=== PATIENT | female | born 1960 | race African-American/Black ===

== ENCOUNTER 2020-03-16 15:02 | Outpatient (REF) | payer OTHER, SELFPAY | END 2020-03-16 15:03 | disposition home or self-care (01) | LOC: HO.LNP 15:02 | PROVIDERS: Visit Provider Internal Medicine | DX: Z20.828 Contact with and (suspected) exposure to other viral communicable diseases (principal) | CPT/HCPCS: U0003 ==

== ENCOUNTER 2024-01-23 14:18 | Outpatient (AMB) | payer OTHER, SELFPAY ==
--- OUTSIDE RECORDS SUMMARY | 2024-01-23 14:19 | XMS_ITS | Continuity of Care Document ---
Author Organization [facility] Address [address] [place] [address]- Care Team Providers Care Body Designer Name Role Phone Rose Mary FISCHER, Sergo Cole Primary Care Physician [phone] Encounter [facility] Date(s): 11/27/22 - 12/27/22 [facility] [address], [place] [address] Allergies, Adverse Reactions, Alerts Substance Reaction Severity Status morphine ITCH DIARRHEA Active trazodone DEPRESSION Active Latex powder eats up skin Active cortisone Active Motrin eat lining of stomach Active Naprosyn gi upset Active CeleBREX gi upset Active Neurontin mental status changes Active Ultram nausea, vomit Active Vioxx heart problems Active Immunizations Given and Recorded Vaccine Date Status Refusal Reason influenza virus vaccine, inactivated 02/20/21 Give n influenza virus vaccine, inactivated 01/12/20 Gilberto rded influenza virus vaccine, inactivated 02/16/19 Give n influenza virus vaccine, inactivated 01/16/18 Give n influenza virus vaccine, inactivated 1 01/22/17 Gi lizzeth influenza virus vaccine, inactivated 03/02/15 Give n influenza virus vaccine, inactivated 2 12/24/12 Gi lizzeth influenza virus vaccine, inactivated 3 12/07/11 Gi lizzeth tetanus-diphtheria toxoids (Td) 10/14/18 Given Influenza Inactive (IM) (oldterm) 4 01/05/11 Given Influenza Inactive (IM) (oldterm) 5 12/15/09 Given Pneumococcal Vaccine (oldterm) 6 01/21/08 Given Tet/Diphth/Acel, Pertussis (oldterm) 7 01/21/08 Gi lizzeth Influenza Vaccine (oldterm) 8 01/21/08 Given 1Result Comment: [01/22/2017] [facility] [id number] 2Admin Note: vis given dated 10/24/12 3Admin Note: vis given dated 10/01/11 4Admin Note: vis 5Admin Note: vis 6Admin Note: vis given: 10/27/2006 7Admin Note: vis given : 10/10/2005 8Admin Note: vis given 2007- Medications Abdominal Binder Abdominal Binder, See Instructions, # 1 each, Refills 0, Tot. Refills 0, Maintenance, M62. 08 Diastasis Recti Wear throughout the day. Okay to take off at night and when showering., 11/16/22 14:22:00EDT, Supply Start Date: 11/16/22 Status: Ordered acetaminophen 500 mg oral tablet 2 tablet, By Mouth, 4 times a day, PRN NEEDED FOR PAIN, # 100 tablet, 1 Refills, Acute, 219:52:00 EDT, [id number], 157.48, cm, 10/11/20 9:39:00 EDT, Height Start Date: 10/26/20 Status: Ordered Alcohol Pads See Instructions, # 200 each, Refills 11, Tot. Refills 11, Maintenance, To cleans before injections5 x a day., 03/03/21 9:18:00 EST, E11.65, Compound, 157.48, cm, 03/01/21 15:54:00 EST, Height Start Date: 03/03/21 Stop Date: 02/26/22 Status: Ordered Sngsb-Ssucvr-Wrbi 300 mg oral capsule 1 capsule, By Mouth, 2 times a day, NOT COVERED., # 60 capsule, 11 Refills, [id number], 157.48, cm, 01/27/21 9:30:00 EDT, Height Start Date: 01/30/21 Status: Ordered ammonium lactate 12% topical cream 1 application, Topically, 2 times a day, # 385 Gm, 1 Refills, Maintenance, 12/22/22 14:16:00 EDT, Cream, [facility]/pharmacy #[id number], Partial fill upon patient request if the prescription is for a schedule IIopioid drug., 1 application Topically 2 times a day... Start Date: 12/22/22 Stop Date: 02/20/23 Status: Ordered atorvastatin 80 mg oral tablet 1 tablet = 80 mg, By Mouth, Daily, replaces Simvastatin, # 90 tablet, 1 Refills, Maintenance, 11/19/23 14:22:00 EDT, Tablet, [facility]/pharmacy #[id number], replaces simvastatin, 157.5, cm, 11/26/22 14:11:00 EDT, Height Start Date: 11/19/23 Stop Date: 05/17/24 Status: Ordered atorvastatin 80 mg oral tablet 1 tablet = 80 mg, By Mouth, Daily, for 90 days, replaces Simvastatin, # 90 tablet, 4 Refills, Hard Stop 11/19/23 14:22:00 EDT, 08/26/22 14:22:00 EDT, Tablet, [facility]/pharmacy #[id number], replaces simvastatin,157.5, cm, 11/29/21 15:59:00 EDT, Height Start Date: 08/26/22 Stop Date: 11/19/23 Status: Ordered BD Single Use Swab 70% topical pad See Instructions, TO CLEANS BEFORE INJECTIONS 5 X A DAY., # 150 Unknown, 11 Refills, Maintenance, 08/16/22 10:15:00 EDT, [facility], 30, TO CLEANS BEFORE INJECTIONS 5 X A DAY., 157.5, cm, 08/01/22 9:27:00 EDT, Height Start Date: 08/16/22 Status: Ordered capsaicin 0.075% topical cream See Instructions, APPLY TO AFFECTED AREA TWICE A DAY, # 57 Gm, 4 Refills, Maintenance, 08/24/22 14:16:00 EDT, [facility]/pharmacy #[id number], 30, APPLY TO AFFECTED AREA TWICE A DAY, 157.5, cm, 08/01/22 9:27:00 EDT, Height Start Date: 08/24/22 Status: Ordered CPAP Supplies CPAP Supplies, See Instructions, # 1 each, Refills 0, Tot. Refills 0, Maintenance, Directions: Use daily when sleeping Dx: STORMY G47.33 Duration: Lifetime, 03/20/22 11:01:00 EST, Supply Start Date: 03/20/22 Status: Ordered Daily David oral tablet 1 tablet, By Mouth, Daily, INSTR:TAKE IT 2 HOURS SEPARATE FROM ORLISTAT ([place]), # 30 tablet, 11 Refills, Maintenance, 07/09/22 10:30:00 EDT, [facility]/pharmacy #[id number], 30, 1 tablet By Mouth Daily,Instr:INSTR:TAKE IT 2 HOURS SEPARATE FROM ORLISTAT ([place]), 157... Start Date: 07/09/22 Status: Ordered diclofenac 1% topical gel See Instructions, APPLY TOPICALLY 4 TIMES A DAY NOT TO EXCEED 16 GRAMS/DAY/SINGLE JOINT OF LOWER EXTREMITIES, # 100 Gm, 1 Refills, Maintenance, 12/14/22 6:14:00 EDT, [facility]/pharmacy #[id number], 30, APPLY TOPICALLY 4 TIMES A DAY NOT TO EXCEED 16 GRAMS/DAY/SING... Start Date: 12/14/22 Status: Ordered docusate sodium 100 mg oral capsule See Instructions, TAKE 1 CAPSULE BY MOUTH TWICE A DAY NEEDED FOR CONSTIPATION, # 60 capsule, 5 Refills, Maintenance, 07/03/22 18:20:00 EDT, [facility]/pharmacy #[id number], Duplicate Rx. Original sent 07/03/22 with routing error. Re- sending to pharmacy, 157.5, cm... Start Date: 07/03/22 Status: Ordered docusate sodium 100 mg oral capsule 100 mg, 1, capsule, By Mouth, 2 times a day, PRN, # 60 capsule, Refills 5, Tot. Refills 5, Maintenance, as needed for constipation, 06/12/22 9:52:00 EDT, Route to Pharmacy Electronically, [facility]/pharmacy #[id number], Partial fill upon patient request if the pr... Start Date: 06/12/22 Status: Ordered esomeprazole 40 mg oral enteric coated capsule 1 capsule = 40 mg, By Mouth, Daily, # 90 capsule, 0 Refills, Maintenance, 12/24/22 15:20:00 EDT, [facility]/pharmacy #[id number], Partial fill upon patient request if the prescription is for a schedule II opioid drug., 157.5, cm, 11/26/22 14:11:00 EDT, Height Start Date: 12/24/22 Status: Ordered fentaNYL 25 mcg/hr transdermal film, extended release APPLY 1 PATCH EVERY 72 HOURS. DO NOT FILL UNTIL 05/01/21. OK TO PARTIAL FILL UPON REQUEST. Start Date: 06/02/21 Status: Ordered Flovent Diskus 50 mcg/inh inhalation powder 1 puffs, Inhalation, 2 times a day, # 60 each, 0 Refills, Maintenance, 09/20/22 9:36:00 EDT, [id number], 30, INHALE 1 PUFF BY MOUTH TWICE A DAY, 157.5, cm, 09/05/22 16:22:00 EDT, Height Start Date: 09/20/22 Status: Ordered fluticasone 50 mcg/inh nasal spray See Instructions, SPRAY 1 SPRAY INTO EACH NOSTRIL EVERY DAY, # 16 mL, 5 Refills, Maintenance, 07/05/22 16:20:00 EDT, [id number], 30, SPRAY 1 SPRAY INTO EACH NOSTRIL EVERY DAY, 157.5, cm, 06/21/22 8:43:00 EDT, Height Start Date: 07/05/22 Status: Ordered Freestyle Insulinx Test Strips Freestyle Insulinx Test Strips, See Instructions, # 200 each, Refills 6, Tot. Refills 6, Maintenance, Use to check Blood Glucose levels up to 4 times daily. E11.9, 04/27/22 18:24:00 EST, Supply, 157.5, cm, 04/11/22 10:50:00 EST, Height Start Date: 04/27/22 Status: Ordered Freestyle Lancets See Instructions, # 200 each, Refills 5, Tot. Refills 5, Maintenance, use 4 X daily as directed forType 2 Diabetes Mellitus, 03/22/22 15:40:00 EST, Supply, 157.5, cm, 03/22/22 13:25:00 EST, Height Start Date: 03/22/22 Stop Date: 09/18/22 Status: Ordered Freestyle Lite Lancets See Instructions, # 150 each, Refills 5, Tot. Refills 5, Maintenance, use as directed for Type 2 Diabetes Mellitus to check BGs 4x dialy. E11.9, 06/19/22 17:01:00 EDT, Supply, 157.5, cm, 06/19/22 15:46:00 EDT, Height Start Date: 06/19/22 Stop Date: 12/16/22 Status: Ordered Freestyle Lite Monitor See Instructions, # 1 each, Refills 0, Tot. Refills 0, Maintenance, use as directed for Type 2 Diabetes Mellitus to check BGs 4x dialy. E11.9, 06/19/22 17:01:00 EDT, Supply, 157.5, cm, 06/19/22 15:46:00 EDT, Height Start Date: 06/19/22 Status: Ordered Freestyle Lite Test Strips See Instructions, # 150 each, Refills 8, Tot. Refills 8, Maintenance, use as directed for Type 2 Diabetes Mellitus to check BGs 4x dialy. E11.9, 06/19/22 17:01:00 EDT, Supply, 157.5, cm, 06/19/22 15:46:00 EDT, Height Start Date: 06/19/22 Stop Date: 03/16/23 Status: Ordered hospital bed mattress replacement hospital bed mattress replacement, See Instructions, # 1 each, Refills 0, Tot. Refills 0, Maintenance, please dispense 1 hospital bed mattress replacement - DX G89.4, length of use lifetime, 05/10/2316:39:00 EST, Supply Start Date: 05/10/22 Status: Ordered hospital bed with mattress hospital bed with mattress, See Instructions, # 1 each, Refills 0, Tot. Refills 0, Maintenance, Please dispense one hospital bed with mattress, ICD 10 G89.4, length of use lifetime, 05/09/22 12:35:00EST, Supply Start Date: 05/09/22 Status: Ordered Humalog Kwik Pen 100 units/mL subcutaneous injection See Instructions, Take 4-14 units 3 times daily before meals based on sliding scale via Subcutaneous Infusion. Max daily dose 42 units. E11.9, # 30 mL, 6 Refills, Maintenance, 11/26/22 14:55:00 EDT, [facility], Partial fill upon patie... Start Date: 11/26/22 Status: Ordered Lactaid 3000 units oral tablet 3 tablet = 9,000 units, By Mouth, 3 times a day with meals, # 120 tablet, 5 Refills, Maintenance, 08/17/22 9:03:00 EDT, Tablet, [facility]/pharmacy #[id number], Partial fill upon patient request if the prescription is for a schedule II opioid drug., 157.5, cm, ... Start Date: 08/17/22 Stop Date: 02/13/23 Status: Ordered Lantus Solostar Pen 100 units/mL subcutaneous solution See Instructions, Take 45 units in the AM and 45 units daily at bedtime. E11.9., # 30 mL, 9 Refills, Maintenance, 11/26/22 14:55:00 EDT, [facility], Partial fill upon patient requestif the prescription is for a schedule II opioid lucas... Start Date: 11/26/22 Status: Ordered lidocaine 5% topical ointment See Instructions, APPLY TO AFFECTED AREA 3 TIMES A DAY, # 35.44 Gm, 11 Refills, Maintenance, 02/28/22 8:51:00 EST, [facility]/pharmacy #[id number], 30, APPLY TO AFFECTED AREA 3 TIMES A DAY, 157.5, cm, 02/21/22 14:36:00 EST, Height Start Date: 02/28/22 Status: Ordered lidocaine 5% topical ointment See Instructions, APPLY TO AFFECTED AREA 3 TIMES A DAY, # 35.44 Gm, 11 Refills, Maintenance, 07/03/22 18:22:00 EDT, [facility]/pharmacy #[id number], 30, Duplicate Rx. Original sent 07/03/22 with routing error. Re-sending to pharmacy, APPLY TO AFFECTED AREA 3 TIMES A... Start Date: 07/03/22 Status: Ordered losartan 50 mg oral tablet 1 tablet, By Mouth, Daily, # 90 tablet, 1 Refills, Maintenance, 07/11/22 15:04:00 EDT, [facility]/pharmacy#[id number], 157.5, cm, 06/21/22 8:43:00 EDT, Height Start Date: 07/11/22 Status: Ordered Lyrica 25 mg oral capsule See Instructions, 1 capsule By Mouth 1 time daily at bedtime. E11.9, # 30 each, 5 Refills, Maintenance, 05/01/22 18:04:00 EST, Capsule, [facility]/pharmacy #[id number], Partial fill upon patient request if the prescription is for a schedule II opioid drug., 157.5,... Start Date: 05/01/22 Status: Ordered mirtazapine 15 mg oral tablet 1 tablet = 15 mg, By Mouth, Daily at bedtime, # 30 tablet, 4 Refills, Maintenance, 12/06/22 13:07:00 EDT, Tablet, [facility]/pharmacy #[id number], Partial fill upon patient request if the prescription is for a schedule II opioid drug., 157.5, cm, 11/26/22 14:11:00... Start Date: 12/06/22 Stop Date: 05/05/23 Status: Ordered [place]-3 Fish Oil 1000 mg oral capsule 1 capsule = 1,000 mg, By Mouth, Daily, # 90 capsule, 1 Refills, Maintenance, 08/01/22 10:17:00 EDT,[facility]/pharmacy #[id number], Partial fill upon patient request if the prescription is for a schedule II opioid drug., 157.5, cm, 08/01/22 9:27:00 EDT, Height Start Date: 08/01/22 Status: Ordered omeprazole 20 mg oral delayed release tablet 1 tablet = 20 mg, By Mouth, 2 times a day, do not crush or chew, # 60 tablet, 2 Refills, Maintenance, 06/14/22 16:40:00 EDT, EC Tablet, [facility]/pharmacy #[id number], Partial fill upon patient request if the prescription is for a schedule II opioid drug., 157.5,... Start Date: 06/14/22 Status: Ordered oxyCODONE 10 mg oral tablet TAKE 1/2 TAB EVERY 12 HOURS NEEDED FOR SEVERE NECK/LOW BACK PAIN. DO NOT FILL UNTIL 05/01/21 Start Date: 06/02/21 Status: Ordered Pen [place], 31 G x 8 mm BD Ultra Fine III See Instructions, # 450 each, Refills 3, Tot. Refills 3, Maintenance, e11.9, use for insulin injections up to 5 times daily, 90 day supply, 03/07/22 9:23:00 EST, Supply, 157.5, cm, 03/02/22 10:34:00 EST, Height Start Date: 03/07/22 Status: Ordered QUEtiapine 25 mg oral tablet 25 mg, 1, tablet, By Mouth, 2 times a day, # 60 tablet, Refills 4, Tot. Refills 4, Maintenance, 12/06/22 13:08:00 EDT, Route to Pharmacy Electronically, [facility]/pharmacy #[id number], Partial fill upon patient request if the prescription is for a schedule II opi... Start Date: 12/06/22 Stop Date: 05/05/23 Status: Ordered cloud infrastructure architect grabber tool cloud infrastructure architect grabber tool, See Instructions, # 1 each, Refills 0, Tot. Refills 0, Maintenance, please dispense one cloud infrastructure architect grabber tool, ICD 10 M54.6, length of use 1 month, 04/12/22 10:13:00 EST, Supply Start Date: 04/12/22 Status: Ordered replacement hospital bed with mattress replacement hospital bed with mattress, See Instructions, # 1 each, Refills 0, Tot. Refills 0, Maintenance, please dispense 1 replacement hospital bed wth mattress, DX G89.4, length of use lifetime, 06/20/22 14:20:00 EDT, Supply Start Date: 06/20/22 Status: Ordered Topamax 25 mg oral tablet 3 tablet = 75 mg, By Mouth, Daily at bedtime, # 90 tablet, 6 Refills, Maintenance, 06/26/22 10:14:00 EDT, Tablet, [facility], 157.5, cm, 06/21/22 8:43:00 EDT, Height Start Date: 06/26/22 Stop Date: 01/22/23 Status: Ordered Trulicity Pen 4.5 mg/0.5 mL subcutaneous solution See Instructions, INJECT 4.5 MG SUBCUTANEOUSLY ONCE A WEEK, # 2 mL, 5 Refills, Maintenance, 11/21/22 8:33:00 EDT, [facility], 157.5, cm, 11/16/22 13:50:00 EDT, Height Start Date: 11/21/22 Status: Ordered valACYclovir 500 mg oral tablet 1, tablet, By Mouth, 2 times a day, PRN, # 6 tablet, Refills 1, Tot. Refills 1, Maintenance, NEEDED FOR OUTBREAKS, 12/14/22 6:14:00 EDT, Route to Pharmacy Electronically, [facility]/pharmacy #[id number], 157.5, cm, 11/26/22 14:11:00 EDT, Height Start Date: 12/14/22 Stop Date: 12/20/22 Status: Ordered Valium 5 mg oral tablet 5 mg, 1, tablet, By Mouth, 2 times a day, for 30 days, next refill decrease to this dose after current script ends in Dec 2022, # 60 tablet, Refills 2, Tot. Refills 2, Acute 03/06/23 13:09:00 EST, 12/06/22 13:09:00 EDT, Route to Pharmacy Electronic[facility]... Start Date: 12/06/22 Stop Date: 03/06/23 Status: Ordered Vascepa 1 g oral capsule 2 capsule = 2 Gm, By Mouth, 2 times a day, # 360 capsule, 5 Refills, Maintenance, 05/03/20 15:59:00EST, Capsule, [id number], 157.48, cm, 03/04/20 14:14:00 EST, Height Start Date: 05/03/20 Status: Ordered Ventolin HFA 108 mcg/inh inhalation aerosol with adapter 1 puffs, Inhalation, 4 times a day, PRN NEEDED FOR WHEEZING, # 18 each, 0 Refills, Maintenance, 09/17/22 15:25:00 EDT, [id number], 157.5, cm, 09/05/22 16:22:00 EDT, Height Start Date: 09/17/22 Status: Ordered Problem List Condition Confirmation Course Effective Dates Status H ealth Status Informant Abdominal pain, right upper quadrant Confirmed Active Abdominal pain, RUQ Confirmed Active Backache Confirmed Active Breast pain in female Confirmed 09/12/11 Active Carpal Tunnel Syndrome Confirmed 01/05/11 Active Cholecystectomy Confirmed Active Chronic pain after traumatic injury Confirmed Active Constipation Confirmed Active Diabetes mellitus type 2 Confirmed Active Diastasis recti Confirmed Active Echocardiogram abnormal 1 Confirmed Active Epigastric pain 2 Confirmed Active Fall Confirmed Active Hyperlipidemia Confirmed Active Hypertension Confirmed Active Stool incontinence Confirmed Active 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 Loose stools Confirmed Active Back pain NOS 3 Confirmed Active Migraine Confirmed 01/05/11 Active 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 Multinodular goiter Confirmed Active Numbness of left foot Confirmed Active Obesity Confirmed Active Obesity monitoring Confirmed Active STORMY (obstructive sleep apnea) 4 Confirmed Active Osteoarthritis, L knee mild tricompartmental Confirmed Active PAIN IN JOINT INVOLVING MULTIPLE SITES Confirmed Active 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 *Briana Garces, Communications Agent, ICP [phone] Confirmed Active PTSD (post-traumatic stress disorder) Confirmed Active Reflux Confirmed Active Severe obesity (BMI 35.0-39.9) with comorbidity Confirmed Active Hepatic steatosis Confirmed Active Tubular adenoma of colon Confirmed Active 00645 -EF 60-65%. No wall motion abnormalities, Does have diastolic dysfunction. 2EGD in 06/10 - single non-bleeding erosion was noted in the antrum; histology showed chronic gastritis and some rare h.pylori, ?treated 3MRI in 2007 showed: 1. Lower lumbar facet arthropathy predominantly at L4-L5 and L5-S1. 2. Small central L5-S1 disc herniation barely contacting but not displacing or trapping the S1 nerve roots. 4mild STORMY per sleep study in 09/10. To return for cpap titration. 5+ HSV and HSV2 Social History Social History Type Response Smoking Status Never smoker entered on: 11/10/13 Sex Female Patient Care team information Care Team Personnel Name: Rose Mary FISCHER, Sergo Cole Position: [facility] Physician - Primary Care Member Role: PCP Address: Address: [address] [place] [address] [place] [address]- Name: Lizbeth Collins [place] Position: [facility] RN Member Role: Primary Care Nurse Care Team Related Persons Name: LB HENLEY Address: home [address] [address] Name: LB HENLEY Address: [address] [place] [address] Name: MILENA CUBA Address: home [address] [place] [address]
--- OUTSIDE RECORDS SUMMARY | 2024-01-23 14:20 | XMS_ITS | Continuity of Care Document ---
Author Organization [facility] Address [address] [place] [address] [address] [place] [address]- Care Team Providers Care Civil Estimator Name Role Phone Rose Mary FISCHER, Serog Cole Primary Care Physician Encounter [facility] Date(s): 11/23/22 - 12/23/[address] [place] [address]- Attending Physician: AdmBroderick enriquez Admitting Physician: Admtr, Broderick Referring Physician: Admtr, Ar8 Allergies, Adverse Reactions, Alerts Substance Reaction Severity Status morphine ITCH DIARRHEA Active trazodone DEPRESSION Active cortisone Active Motrin eat lining of stomach Active Naprosyn gi upset Active CeleBREX gi upset Active Neurontin mental status changes Active Ultram nausea, vomit Active Vioxx heart problems Active Latex powder eats up skin Active Immunizations Given and Recorded Vaccine Date [...] (oldterm) 8 01/21/08 Given 1Result Comment: [01/22/2017] [facility] [id number] 2Admin Note: vis given dated 10/24/12 3Admin [...] 100 tablet, 1 Refills, Acute, 219:52:00 EDT, [facility], 157.48, cm, 10/11/20 9:39:00 EDT, Height Start Date: 10/26/20 Status: Ordered Alcohol Pads See Instructions, # 200 each, Refills 11, Tot. Refills 11, Maintenance, To cleans before injections5 x a day., 03/03/21 9:18:00 EST, E11.65, Compound, 157.48, cm, 03/01/21 15:54:00 EST, Height Start Date: 03/03/21 Stop Date: 02/26/22 Status: Ordered Ozaov-Aleznf-Iqdp 300 mg oral capsule 1 capsule, By Mouth, 2 times a day, NOT COVERED., # 60 capsule, 11 Refills, [facility], 157.48, cm, 01/27/21 9:30:00 EDT, Height Start Date: 01/30/21 Status: Ordered ammonium lactate 12% topical cream 1 application, Topically, 2 times a day, # 385 Gm, 1 Refills, Maintenance, 12/22/22 14:16:00 EDT, Cream, [facility]/pharmacy #[id number], Partial fill upon patient request if the prescription is for a schedule IIopioid drug., 1 application Topically 2 times a day... Start Date: 12/22/22 Stop Date: 02/20/23 Status: Ordered atorvastatin 80 mg oral tablet 1 tablet = 80 mg, By Mouth, Daily, replaces Simvastatin, # 90 tablet, 1 Refills, Maintenance, 11/19/23 14:22:00 EDT, Tablet, [facility]/pharmacy #[id number], replaces simvastatin, 157.5, cm, 11/26/22 14:11:00 EDT, Height Start Date: 11/19/23 Stop Date: 05/17/24 Status: Ordered atorvastatin 80 mg oral tablet 1 tablet = 80 mg, By Mouth, Daily, for 90 days, replaces Simvastatin, # 90 tablet, 4 Refills, Hard Stop 11/19/23 14:22:00 EDT, 08/26/22 14:22:00 EDT, Tablet, [facility]/pharmacy #[id number], replaces simvastatin,157.5, cm, 11/29/21 15:59:00 EDT, Height Start Date: 08/26/22 Stop Date: 11/19/23 Status: Ordered BD Single Use Swab 70% topical pad See Instructions, TO CLEANS BEFORE INJECTIONS 5 X A DAY., # 150 Unknown, 11 Refills, Maintenance, 08/16/22 10:15:00 EDT, [facility], 30, TO CLEANS BEFORE INJECTIONS 5 X A DAY., 157.5, cm, 08/01/22 9:27:00 EDT, Height Start Date: 08/16/22 Status: Ordered capsaicin 0.075% topical cream See Instructions, APPLY TO AFFECTED AREA TWICE A DAY, # 57 Gm, 4 Refills, Maintenance, 08/24/22 14:16:00 EDT, [facility]/pharmacy #[id number], 30, APPLY TO AFFECTED AREA TWICE [...] tablet, 11 Refills, Maintenance, 07/09/22 10:30:00 EDT, [facility]/pharmacy #[id number], 30, 1 tablet By Mouth Daily,Instr:INSTR:TAKE IT 2 HOURS SEPARATE FROM ORLISTAT ([place]), 157... Start Date: 07/09/22 Status: Ordered diclofenac 1% topical gel See Instructions, APPLY TOPICALLY 4 TIMES A DAY NOT TO EXCEED 16 GRAMS/DAY/SINGLE JOINT OF LOWER EXTREMITIES, # 100 Gm, 1 Refills, Maintenance, 12/14/22 6:14:00 EDT, [facility]/pharmacy #[id number], 30, APPLY TOPICALLY 4 TIMES A DAY NOT TO EXCEED 16 GRAMS/DAY/SING... Start Date: 12/14/22 Status: Ordered docusate sodium 100 mg oral capsule See Instructions, TAKE 1 CAPSULE BY MOUTH TWICE A DAY NEEDED FOR CONSTIPATION, # 60 capsule, 5 Refills, Maintenance, 07/03/22 18:20:00 EDT, [facility]/pharmacy #[id number], Duplicate Rx. Original sent 07/03/22 with routing error. Re- sending to pharmacy, 157.5, cm... Start Date: 07/03/22 Status: Ordered docusate sodium 100 mg oral capsule 100 mg, 1, capsule, By Mouth, 2 times a day, PRN, # 60 capsule, Refills 5, Tot. Refills 5, Maintenance, as needed for constipation, 06/12/22 9:52:00 EDT, Route to Pharmacy Electronically, [facility]/pharmacy #[id number], Partial fill upon patient request if the pr... Start Date: 06/12/22 Status: Ordered fentaNYL 25 mcg/hr transdermal film, extended release APPLY 1 PATCH EVERY 72 HOURS. DO NOT FILL UNTIL 05/01/21. OK TO PARTIAL FILL UPON REQUEST. Start Date: 06/02/21 Status: Ordered Flovent Diskus 50 mcg/inh inhalation powder 1 puffs, Inhalation, 2 times a day, # 60 each, 0 Refills, Maintenance, 09/20/22 9:36:00 EDT, [id number], 30, INHALE 1 PUFF BY MOUTH TWICE A DAY, 157.5, cm, 09/05/22 16:22:00 EDT, Height Start Date: 09/20/22 Status: Ordered fluticasone 50 mcg/inh nasal spray See Instructions, SPRAY 1 SPRAY INTO EACH NOSTRIL EVERY DAY, # 16 mL, 5 Refills, Maintenance, 07/05/22 16:20:00 EDT, [id number], 30, SPRAY 1 SPRAY INTO EACH NOSTRIL [...] mL, 6 Refills, Maintenance, 11/26/22 14:55:00 EDT, [facility], Partial fill upon patie... Start Date: 11/26/22 Status: Ordered Lactaid 3000 units oral tablet 3 tablet = 9,000 units, By Mouth, 3 times a day with meals, # 120 tablet, 5 Refills, Maintenance, 08/17/22 9:03:00 EDT, Tablet, [facility]/pharmacy #[id number], Partial fill upon patient request if the prescription is for a schedule II opioid drug., 157.5, cm, .. Start Date: 08/17/22 Stop Date: 02/13/23 Status: Ordered Lantus Solostar Pen 100 units/mL subcutaneous solution See Instructions, Take 45 units in the AM and 45 units daily at bedtime. E11.9., # 30 mL, 9 Refills, Maintenance, 11/26/22 14:55:00 EDT, [facility], Partial fill upon patient requestif the prescription is for a schedule II opioid lucas... Start Date: 11/26/22 Status: Ordered lidocaine 5% topical ointment See Instructions, APPLY TO AFFECTED AREA 3 TIMES A DAY, # 35.44 Gm, 11 Refills, Maintenance, 02/28/22 8:51:00 EST, [id number], 30, APPLY TO AFFECTED AREA 3 TIMES A DAY, 157.5, cm, 02/21/22 14:36:00 EST, Height Start Date: 02/28/22 Status: Ordered lidocaine 5% topical ointment See Instructions, APPLY TO AFFECTED AREA 3 TIMES A DAY, # 35.44 Gm, 11 Refills, Maintenance, 07/03/22 18:22:00 EDT, [facility]/pharmacy #[id number], 30, Duplicate Rx. Original sent 07/03/22 [...] 5 Refills, Maintenance, 05/01/22 18:04:00 EST, Capsule, [facility]/pharmacy #[id number], Partial fill upon patient request if the prescription is for a schedule II opioid drug., 157.5,... Start Date: 05/01/22 Status: Ordered mirtazapine 15 mg oral tablet 1 tablet = 15 mg, By Mouth, Daily at bedtime, # 30 tablet, 4 Refills, Maintenance, 12/06/22 13:07:00 EDT, Tablet, [facility]/pharmacy #[id number], Partial fill upon patient request if the prescription is for a schedule II opioid drug., 157.5, cm, 11/26/22 14:11:00... Start Date: 12/06/22 Stop Date: 05/05/23 Status: Ordered Nexium 40 mg oral enteric coated capsule 1 capsule = 40 mg, By Mouth, Daily, BRNAD NAME ONLY, # 90 capsule, 0 Refills, Maintenance, 10/18/2313:25:00 EDT, [facility]/pharmacy #[id number], Partial fill upon patient request if the prescription is for a schedule II opioid drug., 157.5, cm, 10/08/22 18:20:00... Start Date: 10/18/22 Stop Date: 01/16/23 Status: Ordered [place]-3 Fish Oil 1000 mg oral capsule 1 capsule = 1,000 mg, By Mouth, Daily, # 90 capsule, 1 Refills, Maintenance, 08/01/22 10:17:00 EDT,[facility]/pharmacy #[id number], Partial fill upon patient request if the prescription is for a schedule II opioid drug., 157.5, cm, 08/01/22 9:27:00 EDT, Height Start Date: 08/01/22 Status: Ordered omeprazole 20 mg oral delayed release tablet 1 tablet = 20 mg, By Mouth, 2 times a day, do not crush or chew, # 60 tablet, 2 Refills, Maintenance, 06/14/22 16:40:00 EDT, EC Tablet, [facility]/pharmacy #[id number], Partial fill upon patient request if the prescription is for a schedule II opioid drug., 157.5,... Start Date: 06/14/22 Status: Ordered oxyCODONE 10 mg oral tablet TAKE 1/2 TAB EVERY 12 HOURS NEEDED FOR SEVERE NECK/LOW BACK PAIN. DO NOT FILL UNTIL 05/01/21 Start Date: 06/02/21 Status: Ordered Pen [place], 31 G x 8 mm BD Ultra [...] 12/06/22 13:08:00 EDT, Route to Pharmacy Electronically, [facility]/pharmacy #[id number], Partial fill upon patient request if the prescription is for a schedule II opi... Start Date: 12/06/22 Stop Date: 05/05/23 Status: Ordered physician compensation analyst grabber tool physician compensation analyst grabber tool, See Instructions, # 1 each, Refills 0, Tot. Refills 0, Maintenance, please dispense one physician compensation analyst grabber tool, ICD 10 M54.6, length of [...] 6 Refills, Maintenance, 06/26/22 10:14:00 EDT, Tablet, [facility], 157.5, cm, 06/21/22 8:43:00 EDT, Height Start Date: 06/26/22 Stop Date: 01/22/23 Status: Ordered Trulicity Pen 4.5 mg/0.5 mL subcutaneous solution See Instructions, INJECT 4.5 MG SUBCUTANEOUSLY ONCE A WEEK, # 2 mL, 5 Refills, Maintenance, 11/21/22 8:33:00 EDT, [facility], 157.5, cm, 11/16/22 13:50:00 EDT, Height Start Date: 11/21/22 Status: Ordered valACYclovir 500 mg oral tablet 1, tablet, By Mouth, 2 times a day, PRN, # 6 tablet, Refills 1, Tot. 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 No wall motion abnormalities, Does [...] Name: Rose Mary FISCHER, Sergo Cole Position: [facility] Physician - Primary Care Member Role: PCP Address: Address: [address] [place] [address] [place] [address]- Name: Lizbeth Collins [place] Position: [facility] RN Member Role: Primary Care Nurse Care Team Related Persons Name: LB HENLEY Address: home [address] [place] [address] Name: LB HENLEY Address: home [address] [address] Name: MILENA CUBA Address: home [address] [place] [address]
--- OUTSIDE RECORDS SUMMARY | 2024-01-23 14:20 | XMS_ITS | Continuity of Care Document ---
Author Organization [facility] Address [address] [place] [address]- Care Team Providers Care Regional Trainer Name Role Phone Rose Mary FISCHER, Sergo Cole Primary Care Physician Encounter [facility] Date(s): 01/09/21 - 02/08/21 [facility] [address] [place], [place] [address] Allergies, Adverse Reactions, Alerts Substance Reaction Severity Status morphine ITCH DIARRHEA Active trazodone DEPRESSION Active cortisone Active Motrin eat lining of stomach Active Naprosyn gi upset Active Neurontin mental status changes Active Ultram nausea, vomit Active Vioxx heart problems Active Latex powder eats up skin Active CeleBREX gi upset Active Immunizations Given and Recorded Vaccine Date Status Refusal Reason influenza virus vaccine, inactivated 01/12/20 Gilberto rded [...] (oldterm) 8 01/21/08 Given 1Result Comment: [01/22/2017] [facility] [id number] 2Admin Note: vis given dated 10/24/12 3Admin Note: vis given dated 10/01/11 4Admin Note: vis 5Admin Note: vis 6Admin Note: vis given: 10/27/2006 7Admin Note: vis given : 10/10/2005 8Admin Note: vis given 2007- Medications acetaminophen 500 mg oral tablet 2 tablet, By Mouth, 4 times a day, PRN NEEDED FOR PAIN, # 100 tablet, 1 Refills, Acute, 219:52:00 EDT, [facility], 157.48, cm, 10/11/20 9:39:00 EDT, Height Start Date: 10/26/20 Status: Ordered Acyclovir Maintenance, 11/13/18 15:06:54 EDT Start Date: 11/13/18 Status: Ordered Admelog SoloStar 100 units/mL injectable solution 10 - 25 units, Subcutaneous Infusion, 3 times a day with meals, Inject via sliding scale, Max Dailydose 75u, 90 day supply, E11.9, # 90 mL, 5 Refills, Maintenance, 09/02/19 13:54:00 EDT, [facility], E11.9, 157.48, cm, 04/27/19 15:43:... Start Date: 09/02/19 Status: Ordered Alcohol Pads See Instructions, # 200 each, Refills 9, Tot. Refills 9, Maintenance, To cleans before injections 5x a day., 02/29/20 13:04:00 EST, E11.65, Compound, 157.48, cm, 01/25/20 15:23:00 EDT, Height Start Date: 02/29/20 Stop Date: 12/25/20 Status: Ordered [place]-Ywcuae-Tzks 300 mg oral capsule 1 capsule, By Mouth, 2 times a day, NOT COVERED., # 60 capsule, 11 Refills, [facility], 157.48, cm, 01/27/21 9:30:00 EDT, Height Start Date: 01/30/21 Status: Ordered ammonium lactate 12% topical cream 1 application, Topically, 2 times a day, # 385 Gm, 5 Refills, Maintenance, 12/19/20 14:08:00 EDT, Cream, [id number], Partial fill upon patient request if the prescription is for a schedule IIopioid drug., 1 application Topically 2 times a day... Start Date: 12/19/20 Stop Date: 06/17/21 Status: Ordered Artificial Tears preserved solution 2 drops, Eyes, Both, 2 times a day, PRN for dry eyes, # 15 mL, 3 Refills, Maintenance, 02/16/19 15:03:08 EST, Solution, 2 drops Eyes, Both 2 times a day,PRN:for dry eyes Start Date: 02/16/19 Status: Ordered aspirin 81 mg oral delayed release tablet 1 tablet, By Mouth, Daily, # 30 tablet, 11 Refills, Maintenance, 06/21/20 17:44:00 EDT, [facility], 157.48, cm, 05/31/20 9:41:00 EST, Height Start Date: 06/21/20 Status: Ordered atorvastatin 80 mg oral tablet 1 tablet = 80 mg, By Mouth, Daily, replaces Simvastatin, # 90 tablet, 4 Refills, Maintenance, 02/23/20 11:05:00 EST, Tablet, [facility]/pharmacy #[id number], replaces simvastatin, 157.48, cm, 01/25/20 15:23:00 EDT, Height Start Date: 02/23/20 Stop Date: 05/18/21 Status: Ordered BD ultra fine III pen needles [id number] BD ultra fine III pen needles [id number], See Instructions, # 360 each, Refills 3, Tot. Refills 3, Maintenance, Use pen needles to inject insulin 4x a day, E11.9, 90 Day supply, 08/21/19 8:40:00 EDT, Supply, 157.48, cm, 04/27/19 15:43:00 EST, Height Start Date: 08/21/19 Status: Ordered Cane See Instructions, # 1 each, Maintenance, cane use for ambulation as needed for left foot pain/numbness Left foot pain (M79.672) Numbness of left foot (R20.8), 11/24/19 9:58:00 EDT, Supply Start Date: 11/24/19 Status: Ordered capsaicin 0.075% topical cream See Instructions, APPLY TO AFFECTED AREA TWICE A DAY, # 57 Gm, 4 Refills, [facility], 30, APPLY TO AFFECTED AREA TWICE A DAY, 157.48, cm, 11/11/20 9:37:00 EDT, Height Start Date: 01/02/21 Status: Ordered Daily David oral tablet 1 tablet, By Mouth, Daily, INSTR:TAKE IT 2 HOURS SEPARATE FROM ORLISTAT ([place]), # 30 tablet, 11 Refills, Maintenance, 08/19/20 16:26:00 EDT, [facility], 30, TAKE 1 TABLET BY MOUTH DAILY. INSTR:TAKE IT 2 HOURS SEPARATE FROM ORLISTAT ([place]), 157.48... Start Date: 08/19/20 Status: Ordered diazepam 5 mg oral tablet Refills 0, Maintenance, 05/30/17 11:18:02 Start Date: 05/30/17 Status: Ordered diclofenac 1% topical gel 1 application, Topically, 4 times a day, not to exceed 16 grams/day/single joint of lower extremities, # 100 Gm, 6 Refills, Maintenance, 09/02/20 12:50:00 EDT, Gel, [facility]/pharmacy #[id number], 157.48, cm, 05/31/20 9:41:00 EST, Height Start Date: 09/02/20 Stop Date: 03/31/21 Status: Ordered disposable bed liners, chuckpads disposable bed liners, chuckpads, See Instructions, # 180 each, Refills 11, Tot. Refills 11, Maintenance, DX urinary incontinence use as directed for home care Dx: Incontinence R32 Size LARGE, no powder ANABEL: 1 year, 04/07/20 14:56:00 EST, Compound Start Date: 04/07/20 Status: Ordered docusate sodium 100 mg oral tablet 1 tablet = 100 mg, By Mouth, 2 times a day, PRN for constipation, # 100 tablet, 5 Refills, Maintenance, 01/07/20 14:00:00 EDT, Tablet, [facility]/pharmacy #[id number], 157.48, cm, 12/29/19 15:55:00 EDT, Height Start Date: 01/07/20 Stop Date: 07/05/20 Status: Ordered fentanyl 12 mcg/hr transdermal film, extended release 1 patch, Topically, Every 72 hours, 0 Refills, Maintenance, 02/16/19 14:50:52 EST, Patch, Partial fill upon patient request Start Date: 02/16/19 Status: Ordered fluticasone 50 mcg/inh nasal spray See Instructions, USE 1 SPRAY IN EACH NOSTRIL EVERY DAY, # 16 mL, 5 Refills, [facility], 30, USE 1 SPRAY IN EACH NOSTRIL EVERY DAY, 157.48, cm, 11/11/20 9:37:00 EDT, Height Start Date: 12/26/20 Status: Ordered Freestyle InsuLinx Test Strips See Instructions, # 360 each, Refills 2, Tot. Refills 2, Maintenance, Use to check blood glucose levels up to 4 X A DAY TESTING, E11.9, 90 Day supply, 09/20/20 15:10:00 EDT, E11.9, 90 DAY SUPPLY, Compound, 157.48, cm, 05/31/20 9:41:00 EST, Height Start Date: 09/20/20 Status: Ordered Freestyle Lite Lancets See Instructions, # 360 each, Refills 3, Tot. Refills 3, Maintenance, use up to check blood [id number] per day. 90 DAY SUPPLY, E11.9, 02/29/20 13:04:00 EST, E11.9, Compound, 157.48, cm, 01/25/20 15:23:00 EDT, Height Start Date: 02/29/20 Stop Date: 02/23/21 Status: Ordered Gloves See Instructions, # 2 each, Refills 11, Tot. Refills 11, Maintenance, use as directed for home careDx: Incontinence R32 Size LARGE, no powder ANABEL: 1 year, incontinence, 04/07/20 14:56:00 EST Start Date: 04/07/20 Status: Ordered heating pad heating pad, See Instructions, # 1 each, Refills 0, Tot. Refills 0, Maintenance, m77.50 tendonititsuse in 10-15 min intervals with ice do not leave on for risk of foot injury tendonitis, 12/08/19 9:56:00 EDT, Supply Start Date: 12/08/19 Status: Ordered Humalog Kwik Pen 100 units/mL subcutaneous injection See Instructions, Inject 10-25units according to scale up to 3 times a day, MAx Daily Dose: 75 units, E11.9. 90 Day supply, # 75 mL, 3 Refills, Maintenance, 01/13/21 8:58:00 EDT, [facility], Partial fill upon patient request if the pr... Start Date: 01/13/21 Status: Ordered lactase 3000 u oral tablet See Instructions, PRN Other, 1 tablet as needed when eating dairy products, # 30 tablet, 1 Refills,Maintenance, 03/11/19 11:54:50 EST, Tablet, 157.48, cm, 03/09/19 15:46:55 EST, Height Start Date: 03/11/19 Status: Ordered Lantus Solostar Pen 100 units/mL subcutaneous solution See Instructions, Decreased to 60U once a day as of 12/29/19, # 30 mL, 9 Refills, Maintenance, 09/20/20 15:10:00 EDT, [facility], NEEDS 30 ML FOR 30 DAY SUPPLY E11.9, 157.48, cm, 05/31/20 9:41:00 EST, Height Start Date: 09/20/20 Status: Ordered Large Adult size pull ups Large Adult size pull ups, See Instructions, # 180 each, Refills 11, Tot. Refills 11, Maintenance, Dx: urinary incontinence R32 Weight: 95.68kg Height: 157.48cm ANABEL: 1 year, 04/07/20 14:57:00 EST, Compound Start Date: 04/07/20 Status: Ordered lidocaine 4% topical film 1 patch, Topically, Daily, # 6 each, 0 Refills, Maintenance, 12/19/20 14:08:00 EDT, Film, [facility]/pharmacy #[id number], Partial fill upon patient request if the prescription is for a schedule II opioid drug., 1 patch Topically Daily, 157.48, cm, 11/11/20 9:37:0... Start Date: 12/19/20 Status: Ordered losartan 50 mg oral tablet 1 tablet, By Mouth, Daily, # 30 tablet, 5 Refills, Maintenance, 12/02/20 5:43:00 EDT, [facility]/pharmacy #[id number], 157.48, cm, 11/11/20 9:37:00 EDT, Height Start Date: 12/02/20 Status: Ordered mirtazapine 15 mg oral tablet TAKE 1 TABLET BY MOUTH EVERY DAY IN THE EVENING Start Date: 10/14/18 Status: Ordered oxyCODONE 5 mg oral tablet 5 mg, 1, tablet, By Mouth, Every 12 hours, PRN, Refills 0, Tot. Refills 0, Maintenance, as needed for pain, 02/16/19 14:51:00 EST, Partial fill upon patient request Start Date: 02/16/19 Status: Ordered Pen [place], 31 G x 8 mm BD Ultra Fine III See Instructions, # 450 each, Refills 2, Tot. Refills 2, Maintenance, 5 X A DAY INJECTIONS, 90 DY SUPPLY, 09/20/20 15:10:00 EDT, EE11.9, Compound, 157.48, cm, 05/31/20 9:41:00 EST, Height Start Date: 09/20/20 Status: Ordered QUEtiapine 25 mg oral tablet TAKE 1 TABLET BY MOUTH TWICE A DAY Start Date: 10/14/18 Status: Ordered tiZANidine 4 mg oral capsule 1 capsule, By Mouth, 3 times a day, # 90 capsule, 1 Refills, Maintenance, 01/27/21 10:19:00 EDT, [facility]/pharmacy #[id number], 157.48, cm, 01/27/21 9:30:00 EDT, Height Start Date: 01/27/21 Stop Date: 03/28/21 Status: Ordered Topamax 25 mg oral tablet 2 tablet = 50 mg, By Mouth, Daily at bedtime, # 60 tablet, 6 Refills, Maintenance, 04/21/20 13:35:00 EST, Tablet, [facility]/pharmacy #[id number], 157.48, cm, 03/04/20 14:14:00 EST, Height Start Date: 04/21/20 Stop Date: 11/17/20 Status: Ordered Trulicity Pen 1.5 mg/0.5 mL subcutaneous solution 0.5 mL = 1.5 mg, Subcutaneous Injection, Every Saturday, for 90 days, # 7.5 mL, 3 Refills, Hard Stop 12/08/21 15:26:00 EDT, 12/13/20 15:26:00 EDT, Solution, [facility], E11.65, 157.48, cm, 04/27/19 15:43:00 EST, Height Start Date: 12/13/20 Stop Date: 12/08/21 Status: Ordered Trulicity Pen 1.5 mg/0.5 mL subcutaneous solution 0.5 mL = 1.5 mg, Subcutaneous Injection, Every Saturday, E11.9, # 7.5 mL, 3 Refills, Maintenance, 12/08/21 15:26:00 EDT, Solution, [facility], E11.65, 157.48, cm, 03/04/20 14:14:00 EST, Height Start Date: 12/08/21 Stop Date: 12/03/22 Status: Ordered Vascepa 1 g oral capsule 2 capsule = 2 Gm, By Mouth, 2 times a day, # 360 capsule, 5 Refills, Maintenance, 05/03/20 15:59:00EST, Capsule, [facility]/pharmacy #[id number], 157.48, cm, 03/04/20 14:14:00 EST, Height Start Date: 05/03/20 Status: Ordered Problem List Condition Effective Dates Status Health Status Inform ant Abdominal pain, right upper quadrant(Confirmed) Active Abdominal pain, RUQ(Confirmed) Active Backache(Confirmed) Active Breast pain in female(Confirmed) 09/12/11 Active Carpal Tunnel Syndrome(Confirmed) 01/05/11 Active Cholecystectomy(Confirmed) Active Constipation(Confirmed) Active Diabetes mellitus type 2(Confirmed) Active Echocardiogram abnormal(Confirmed) 1 Active Epigastric pain(Confirmed) 2 Active Hyperlipidemia(Confirmed) Active Hypertension(Confirmed) Active Stool incontinence(Confirmed) Active Loose stools(Confirmed) Active Back pain NOS(Confirmed) 3 Active Migraine(Confirmed) 01/05/11 Active Multinodular goiter(Confirmed) Active Numbness of left foot(Confirmed) Active Obesity(Confirmed) Active Obesity monitoring(Confirmed) Active STORMY (obstructive sleep apnea)(Confirmed) 4 Active Osteoarthritis, L knee mild tricompartmental(Confirmed) Active PAIN IN JOINT INVOLVING MULT IPLE SITES(Confirmed) Active History of DILIP positive fo r HSV(Confirmed) 5 02/20/10 Active *Briana Garces, Care Coor dinator, ICP [phone](Confirmed) Active Reflux(Confirmed) Active Hepatic steatosis(Confirmed) Active -EF 60-65%. No wall motion abnormalities, [...]
--- OUTSIDE RECORDS SUMMARY | 2024-01-23 14:20 | XMS_ITS | Continuity of Care Document ---
Author Organization [facility] Address [address] [place] [address]- Care Team Providers Care Yarn Twister Name Role Phone Rose Mary FISCHER, Sergo Cole Primary Care Physician [place] [facility] [place]21 [facility] [address] [place], [place] [address] Allergies, Adverse Reactions, Alerts Substance Reaction Severity [...] (oldterm) 8 01/21/08 Given 1Result Comment: [01/22/2017] [facility] [place] [id number] 2Admin Note: vis given dated 10/24/12 3Admin Note: vis given dated 10/01/11 4Admin Note: vis 5Admin Note: vis 6Admin Note: vis given: 10/27/2006 7Admin Note: vis given : 10/10/2005 8Admin Note: vis given 2007- Medications acetaminophen 500 mg oral tablet 2 tablet, By Mouth, 4 times a day, PRN NEEDED FOR PAIN, # 100 tablet, 1 Refills, Acute, 219:52:00 EDT, [facility] 00825, 157.48, cm, 10/11/20 9:39:00 EDT, Height Start Date: 10/26/20 Status: Ordered Alcohol Pads See Instructions, # 200 each, Refills 11, Tot. Refills 11, Maintenance, To cleans before injections5 x a day., 03/03/21 9:18:00 EST, E11.65, Compound, 157.48, cm, 03/01/21 15:54:00 EST, Height Start Date: 03/03/21 Stop Date: 02/26/22 Status: Ordered Mjjxq-Ziqkyq-Wkul 300 mg oral capsule 1 capsule, By Mouth, 2 times a day, NOT COVERED., # 60 capsule, 11 Refills, [facility] 11116, 157.48, cm, 01/27/21 9:30:00 EDT, Height Start Date: 01/30/21 Status: Ordered ammonium lactate 12% topical cream 1 application, Topically, 2 times a day, # 385 Gm, 5 Refills, Maintenance, 12/19/20 14:08:00 EDT, Cream, [facility]/pharmacy #[id number], Partial fill upon patient request if the prescription is for a schedule IIopioid drug., 1 application Topically 2 times a day... Start Date: 12/19/20 Stop Date: 06/17/21 Status: Ordered aspirin 81 mg oral delayed release tablet 1 tablet, By Mouth, Daily, # 30 tablet, 11 Refills, Maintenance, 06/21/20 17:44:00 EDT, [facility] ST[facility] 50336, 157.48, cm, 05/31/20 9:41:00 EST, Height Start Date: 06/21/20 Status: Ordered atorvastatin 80 mg oral tablet 1 tablet = 80 mg, By Mouth, Daily, replaces Simvastatin, # 90 tablet, 4 Refills, Maintenance, 06/02/21 14:22:00 EST, Tablet, [facility]/pharmacy #[id number], replaces simvastatin, 157.48, cm, 06/02/21 14:20:00 EST, Height Start Date: 06/02/21 Stop Date: 08/26/22 Status: Ordered capsaicin 0.075% topical cream See Instructions, APPLY TO AFFECTED AREA TWICE A DAY, # 57 Gm, 4 Refills, [facility], 30, APPLY TO AFFECTED AREA TWICE A DAY, 157.48, cm, 11/11/20 9:37:00 EDT, Height Start Date: 01/02/21 Status: Ordered Daily David oral tablet 1 tablet, By Mouth, Daily, INSTR:TAKE IT 2 HOURS SEPARATE FROM ORLISTAT (MILTON), # 30 tablet, 11 Refills, Maintenance, 08/19/20 16:26:00 EDT, [facility]96, 30, TAKE 1 TABLET BY MOUTH DAILY. INSTR:TAKE IT 2 HOURS SEPARATE FROM ORLISTAT ([place]IL[place]), 157.48... Start Date: 08/19/20 Status: Ordered diazepam 5 mg oral tablet TAKE 1/2 TABLET BY MOUTH EVERY MORNING AND TAKE 1 TAB BY MOUTH AT BEDTIME Start Date: 06/02/21 Status: Ordered diclofenac 1% topical gel 1 application, Topically, 4 times a day, not to exceed 16 grams/day/single joint of lower extremities, # 100 Gm, 6 Refills, Maintenance, 09/02/20 12:50:00 EDT, Gel, [facility]/pharmacy #[id number], 157.48, cm, 05/31/20 9:41:00 EST, Height Start Date: 09/02/20 Stop Date: 03/31/21 Status: Ordered disposable bed liners, chuckpads disposable bed liners, chuckpads, See Instructions, # 180 each, Refills 11, Tot. Refills 11, Maintenance, Directions: Use as directed for home care Dx: Incontinence R32 Size LARGE, no powder ANABEL: 1 year, 05/12/21 9:28:00 EST, Compound Start Date: 05/12/21 Status: Ordered fentaNYL 25 mcg/hr transdermal film, extended release APPLY 1 PATCH EVERY 72 HOURS. DO NOT FILL UNTIL 05/01/21. OK TO PARTIAL FILL UPON REQUEST. Start Date: 06/02/21 Status: Ordered fluticasone 50 mcg/inh nasal spray See Instructions, USE 1 SPRAY IN EACH NOSTRIL EVERY DAY, # 16 mL, 5 Refills, [facility] 26603, 30, USE 1 SPRAY IN EACH NOSTRIL EVERY DAY, 157.48, cm, 11/11/20 9:37:00 EDT, Height Start Date: 12/26/20 Status: Ordered Freestyle InsuLinx Test Strips See Instructions, # 360 each, Refills 2, Tot. Refills 2, Maintenance, Use to check blood glucose levels up to 4 X A DAY TESTING, E11.9, 90 Day supply, 06/19/21 7:44:00 EDT, E11.9, 90 DAY SUPPLY, Compound, 157.48, cm, 06/02/21 14:20:00 EST, Height Start Date: 06/19/21 Status: Ordered Freestyle Lite Lancets See Instructions, # 360 each, Refills 3, Tot. Refills 3, Maintenance, use up to check blood [id number] per day. 90 DAY SUPPLY, E11.9, 03/03/21 9:18:00 EST, E11.9, Compound, 157.48, cm, 03/01/21 15:54:00 EST, Height Start Date: 03/03/21 Stop Date: 02/26/22 Status: Ordered Gloves See Instructions, # 2 each, Refills 11, Tot. Refills 11, Maintenance, use as directed for home careDx: Incontinence R32 Size LARGE, no powder ANABEL: 1 year, incontinence, 04/07/20 14:56:00 EST Start Date: 04/07/20 Status: Ordered Gloves See Instructions, # 100 each, Refills 11, Tot. Refills 11, Maintenance, Directions: Use as needed for incontinence Dx: Fecal incontinence R15.9 Duration: Lifetime, 05/05/21 14:43:00 EST, Supply Start Date: 05/05/21 Status: Ordered Insulin Lispro KwikPen 100 units/mL injectable solution 10-25 units, Subcutaneous Injection, 3 times a day before meals, according to sliding scale , max daily dose 75 units rotate injection sites, # 75 mL, 3 Refills, Maintenance, 05/09/21 10:32:00 EST, [facility], Partial fill upon pat... Start Date: 05/09/21 Status: Ordered Lantus Solostar Pen 100 units/mL subcutaneous solution See Instructions, Decreased to 60U once a day as of 12/29/19, # 30 mL, 9 Refills, Maintenance, 09/20/20 15:10:00 EDT, [facility], NEEDS 30 ML FOR 30 DAY SUPPLY E11.9, 157.48, cm, 05/31/20 9:41:00 EST, Height Start Date: 09/20/20 Status: Ordered Large Adult size pull ups Large Adult size pull ups, See Instructions, # 180 each, Refills 11, Tot. Refills 11, Maintenance, Dx: urinary incontinence R32 Weight: 95.68kg Height: 157.48cm Duration: 1 year, 05/05/21 14:42:00 EST, Compound Start Date: 05/05/21 Status: Ordered lidocaine 4% topical film 1 patch, Topically, Daily, # 6 each, 0 Refills, Maintenance, 12/19/20 14:08:00 EDT, Film, [facility]/pharmacy #[id number], Partial fill upon patient request if the prescription is for a schedule II opioid drug., 1 patch Topically Daily, 157.48, cm, 11/11/20 9:37:0... Start Date: 12/19/20 Status: Ordered losartan 50 mg oral tablet 1 tablet, By Mouth, Daily, # 30 tablet, 2 Refills, [facility] ST[facility] 43610, 157.48, cm, 05/05/21 9:51:00 EST, Height Start Date: 05/12/21 Status: Ordered mirtazapine 15 mg oral tablet 0 Refills, Maintenance, 06/02/21 14:25:00 EST, Partial fill upon patient request if the prescription is for a schedule II opioid drug. Start Date: 06/02/21 Status: Ordered omeprazole 20 mg oral enteric coated capsule 1 capsule, By Mouth, 2 times a day, # 60 capsule, 1 Refills, [facility] STORE 00550, 157.48, cm, 06/02/21 14:20:00 EST, Height Start Date: 07/14/21 Status: Ordered oxyCODONE 10 mg oral tablet TAKE 1/2 TAB EVERY 12 HOURS NEEDED FOR SEVERE NECK/LOW BACK PAIN. DO NOT FILL UNTIL 05/01/21 Start Date: 06/02/21 Status: Ordered Pen [place], 31 G x 8 mm BD Ultra Fine III See Instructions, # 450 each, Refills 2, Tot. Refills 2, Maintenance, 5 X A DAY INJECTIONS, 90 DY SUPPLY, 07/05/21 16:50:00 EDT, EE11.9, Compound, 157.48, cm, 06/02/21 14:20:00 EST, Height Start Date: 07/05/21 Status: Ordered QUEtiapine 100 mg oral tablet TAKE 1 TABLET BY MOUTH EVERY DAY IN THE EVENING Start Date: 06/02/21 Status: Ordered SUMAtriptan 25 mg oral tablet 1 tablet, By Mouth, 3 times a day, PRN NEEDED FOR MIGRAINES, MAY RPT DOSE AFTER 2 HRS TO MAX OF 2, # 12 tablet, 7 Refills, [facility] STORE 31617, 157.48, cm, 05/23/21 13:08:00 EST, Height Start Date: 06/02/21 Status: Ordered tiZANidine 4 mg oral capsule 1 capsule, By Mouth, 3 times a day, # 90 capsule, 3 Refills, [facility] STORE 29309, 157.48, cm, 05/23/21 13:08:00 EST, Height Start Date: 06/01/21 Status: Ordered Topamax 25 mg oral tablet 2 tablet = 50 mg, By Mouth, Daily at bedtime, # 60 tablet, 6 Refills, Maintenance, 04/21/20 13:35:00 EST, Tablet, [facility]/pharmacy #[id number], 157.48, cm, 03/04/20 14:14:00 EST, Height Start Date: 04/21/20 Stop Date: 11/17/20 Status: Ordered Trulicity Pen 1.5 mg/0.5 mL subcutaneous solution 0.5 mL = 1.5 mg, Subcutaneous Injection, Every Saturday, for 90 days, E11.9, # 7.5 mL, 3 Refills, Hard Stop 12/03/22 15:26:00 EDT, 12/08/21 15:26:00 EDT, Solution, [facility], E11.65, 157.48, cm, 03/04/20 14:14:00 EST, Height Start Date: 12/08/21 Stop Date: 12/03/22 Status: Ordered Trulicity Pen 3 mg/0.5 mL subcutaneous solution See Instructions, INJECT 0.5ML SUBCUTANEOUSLY EVERY WEEK, ROTATE INJECTION SITES, # 2 mL, 6 Refills, [facility], 157.48, cm, 06/02/21 14:20:00 EST, Height Start Date: 07/11/21 Status: Ordered Vascepa 1 g oral capsule 2 capsule = 2 Gm, By Mouth, 2 times a day, # 360 capsule, 5 Refills, Maintenance, 05/03/20 15:59:00EST, Capsule, [facility]/pharmacy #[id number], 157.48, cm, 03/04/20 14:14:00 EST, Height [...] goiter(Confirmed) Active Numbness of left foot(Confirmed) Active Obese class II(Confirmed) Active Obesity(Confirmed) Active Obesity monitoring(Confirmed) Active STORMY (obstructive sleep apnea)(Confirmed) 4 Active Osteoarthritis, L knee mild tricompartmental(Confirmed) Active PAIN IN JOINT INVOLVING MULT IPLE SITES(Confirmed) Active 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 No wall motion abnormalities, Does [...]
--- OUTSIDE RECORDS SUMMARY | 2024-01-23 14:20 | XMS_ITS | Continuity of Care Document ---
Author Organization [facility] Address [address] [place] [address]- Care Team Providers Care Slipper Maker Name Role Phone Rose Mary FISCHER, Sergo Cole Primary Care Physician Encounter [facility] Date(s): 05/18/22 - 06/17/22 [facility] [address] [place], [place] [address] Allergies, Adverse Reactions, Alerts Substance Reaction Severity Status morphine ITCH DIARRHEA Active trazodone DEPRESSION Active cortisone Active Motrin eat lining of stomach Active Neurontin mental status changes Active Latex powder eats up skin Active Vioxx heart problems Active Naprosyn gi upset Active CeleBREX gi upset Active Ultram nausea, vomit Active Immunizations Given and Recorded Vaccine Date [...] (oldterm) 8 01/21/08 Given 1Result Comment: [01/22/2017] [facility] [id number] 2Admin Note: vis given dated 10/24/12 3Admin Note: vis given dated 10/01/11 4Admin Note: vis 5Admin Note: vis 6Admin Note: vis given: 10/27/2006 7Admin Note: vis given : 10/10/2005 8Admin Note: vis given 2007- Medications acetaminophen 500 mg oral tablet 2 tablet, By Mouth, 4 times a day, PRN NEEDED FOR PAIN, # 100 tablet, 1 Refills, Acute, 219:52:00 EDT, [facility], 157.48, cm, 10/11/20 9:39:00 EDT, Height Start Date: 10/26/20 Status: Ordered Alcohol Pads See Instructions, # 200 each, Refills 11, Tot. Refills 11, Maintenance, To cleans before injections5 x a day., 03/03/21 9:18:00 EST, E11.65, Compound, 157.48, cm, 03/01/21 15:54:00 EST, Height Start Date: 03/03/21 Stop Date: 02/26/22 Status: Ordered Otmgq-Fsrjjw-Izrv 300 mg oral capsule 1 capsule, By Mouth, 2 times a day, NOT COVERED., # 60 capsule, 11 Refills, [facility], 157.48, cm, 01/27/21 9:30:00 EDT, Height Start Date: 01/30/21 Status: Ordered ammonium lactate 12% topical cream 1 application, Topically, 2 times a day, # 385 Gm, 3 Refills, Maintenance, 04/05/22 13:30:00 EST, Cream, [id number], Partial fill upon patient request if the prescription is for a schedule IIopioid drug., 1 application Topically 2 times a day... Start Date: 04/05/22 Stop Date: 08/03/22 Status: Ordered atorvastatin 80 mg oral tablet 1 tablet = 80 mg, By Mouth, Daily, replaces Simvastatin, # 90 tablet, 4 Refills, Maintenance, 08/26/22 14:22:00 EDT, Tablet, [id number], replaces simvastatin, 157.5, cm, 11/29/21 15:59:00 EDT, Height Start Date: 08/26/22 Stop Date: 11/19/23 Status: Ordered capsaicin 0.075% topical cream See Instructions, APPLY TO AFFECTED AREA TWICE A DAY, # 57 Gm, 4 Refills, Maintenance, 03/05/22 13:29:00 EST, [facility] ST[facility] 0[facility]14, 30, APPLY TO AFFECTED AREA TWICE A DAY, 157.5, cm, 03/02/22 10:34:00 EST, Height Start Date: 03/05/22 Status: Ordered CPAP Supplies CPAP Supplies, See Instructions, # 1 each, Refills 0, Tot. Refills 0, Maintenance, Directions: Use daily when sleeping Dx: STORMY G47.33 Duration: Lifetime, 03/20/22 11:01:00 EST, Supply Start Date: 03/20/22 Status: Ordered Daily David oral tablet 1 tablet, By Mouth, Daily, INSTR:TAKE IT 2 HOURS SEPARATE FROM ORLISTAT ([place]IL[place]), # 30 tablet, 11 Refills, Maintenance, 08/19/20 16:26:00 EDT, [facility] 18934, 30, TAKE 1 TABLET BY MOUTH DAILY. INSTR:TAKE IT 2 HOURS SEPARATE FROM ORLISTAT ([place]), 157.48... Start Date: 08/19/20 Status: Ordered diazepam 10 mg oral tablet See Instructions, PRN, 1/2 tablet By Mouth in AM and 1 tab at HS, # 45 tablet, Refills 4, Tot. Refills 4, Maintenance, as needed for anxiety, 05/02/22 14:00:00 EST, Instructions Replace Required Details, Route to Pharmacy Electronically, [facility]/pharmacy... Start Date: 05/02/22 Status: Ordered diclofenac 1% topical gel See Instructions, APPLY TOPICALLY 4 TIMES A DAY NOT TO EXCEED 16 GRAMS/DAY/SINGLE JOINT OF LOWER EXTREMITIES, # 100 Gm, 6 Refills, Maintenance, 03/19/22 9:28:00 EST, [facility]19, 30, APPLY TOPICALLY 4 TIMES A DAY NOT TO EXCEED 16 GRAMS/DAY/SINGLE... Start Date: 03/19/22 Status: Ordered docusate sodium 100 mg oral capsule 100 mg, 1, capsule, By Mouth, 2 times a day, PRN, # 60 capsule, Refills 5, Tot. Refills 5, Maintenance, as needed for constipation, 06/12/22 9:52:00 EDT, Route to Pharmacy Electronically, [facility]/pharmacy #[id number], Partial fill upon patient request if the pr... Start Date: 06/12/22 Status: Ordered fentaNYL 25 mcg/hr transdermal film, extended release APPLY 1 PATCH EVERY 72 HOURS. DO NOT FILL UNTIL 05/01/21. OK TO PARTIAL FILL UPON REQUEST. Start Date: 06/02/21 Status: Ordered Fish Oil By Mouth, 0 Refills, Maintenance, 08/24/21 8:09:00 EDT, Partial fill upon patient request if the prescription is for a schedule II opioid drug. Start Date: 08/24/21 Status: Ordered Flovent Diskus 50 mcg/inh inhalation powder 1 puffs, Inhalation, 2 times a day, # 60 each, 0 Refills, Maintenance, 03/22/22 16:35:00 EST, [facility] ST[facility] 74987, 30, INHALE 1 PUFF BY MOUTH TWICE A DAY, 157.5, cm, 03/22/22 13:25:00 EST, Height Start Date: 03/22/22 Status: Ordered fluticasone 50 mcg/inh nasal spray See Instructions, USE 1 SPRAY IN EACH NOSTRIL EVERY DAY, # 16 mL, 5 Refills, 12/29/21 15:10:00 EDT,[facility]/pharmacy #[id number], USE 1 SPRAY IN EACH NOSTRIL EVERY DAY, 157.5, cm, 11/29/21 15:59:00 EDT, Height Start Date: 12/29/21 Status: Ordered Freestyle Insulinx Test Strips Freestyle [...] Date: 03/22/22 Stop Date: 09/18/22 Status: Ordered hospital bed mattress replacement hospital [...] 0, Maintenance, please dispense 1 hospital bed wth mattress, DX G89.4, length of use lifetime, 06/13/22 7:47:00 EDT, Supply Start Date: 06/13/22 Status: Ordered hospital bed with mattress hospital [...] E11.9, # 30 mL, 6 Refills, Maintenance, 06/12/22 10:00:00 EDT, [facility], Partial fill upon patie... Start Date: 06/12/22 Status: Ordered Lantus Solostar Pen 100 units/mL subcutaneous solution See Instructions, Decreased to 60U once a day as of 12/29/19, # 30 mL, 9 Refills, Maintenance, 09/20/20 15:10:00 EDT, [facility], NEEDS 30 ML FOR 30 DAY SUPPLY E11.9, 157.48, cm, 05/31/20 9:41:00 EST, Height Start Date: 09/20/20 Status: Ordered Lantus Solostar Pen 100 units/mL subcutaneous solution See Instructions, Take 80 units via Subcutaneous Infusion Daily at bedtime. E11.9., # 30 mL, 9 Refills, Maintenance, 03/22/22 15:41:00 EST, [facility], Partial fill upon patient request if the prescription is for a schedule II opioid... Start Date: 03/22/22 Status: Ordered lidocaine 5% topical ointment See Instructions, APPLY TO AFFECTED AREA 3 TIMES A DAY, # 35.44 Gm, 11 Refills, Maintenance, 02/28/22 8:51:00 EST, [facility]/pharmacy #[id number], 30, APPLY TO AFFECTED AREA 3 TIMES A DAY, 157.5, cm, 02/21/22 14:36:00 EST, Height Start Date: 02/28/22 Status: Ordered losartan 50 mg oral tablet 1 tablet, By Mouth, Daily, # 30 tablet, 5 Refills, Maintenance, 05/30/22 16:26:00 EST, [facility], 157.5, cm, 05/09/22 10:05:00 EST, Height Start Date: 05/30/22 Status: Ordered Lyrica 25 mg oral capsule See Instructions, 1 capsule By Mouth 1 time daily at bedtime. E11.9, # 30 each, 5 Refills, Maintenance, 05/01/22 18:04:00 EST, Capsule, [facility]/pharmacy #[id number], Partial fill upon patient request if the prescription is for a schedule II opioid drug., 157.5,... Start Date: 05/01/22 Status: Ordered mirtazapine 15 mg oral tablet 1 tablet = 15 mg, By Mouth, Daily at bedtime, # 30 tablet, 4 Refills, Maintenance, 05/02/22 14:02:00 EST, Tablet, [facility]/pharmacy #[id number], Partial fill upon patient request if the prescription is for a schedule II opioid drug., 157.5, cm, 04/11/22 10:50:00... Start Date: 05/02/22 Stop Date: 09/29/22 Status: Ordered omeprazole 20 mg oral delayed release tablet 1 tablet = 20 mg, By Mouth, 2 times a day, do not crush or chew, # 60 tablet, 2 Refills, Maintenance, 06/14/22 16:40:00 EDT, EC Tablet, [id number], Partial fill upon patient request if the prescription is for a schedule II opioid drug., 157.5,... Start Date: 06/14/22 Status: Ordered oxyCODONE 10 mg oral tablet TAKE 1/2 TAB EVERY 12 HOURS NEEDED FOR SEVERE NECK/LOW BACK PAIN. DO NOT FILL UNTIL 05/01/21 Start Date: 06/02/21 Status: Ordered Pen [place], 31 G x 8 mm BD Ultra Fine III See Instructions, # 450 each, Refills 3, Tot. Refills 3, Maintenance, e11.9, use for insulin injections up to 5 times daily, 90 day supply, 03/07/22 9:23:00 EST, Supply, 157.5, cm, 03/02/22 10:34:00 EST, Height Start Date: 03/07/22 Status: Ordered pioglitazone 30 mg oral tablet 1 tablet, By Mouth, Daily, # 30 tablet, 1 Refills, Maintenance, 06/04/22 16:31:00 EST, [facility], 157.5, cm, 05/09/22 10:05:00 EST, Height Start Date: 06/04/22 Status: Ordered QUEtiapine 25 mg oral tablet 25 mg, 1, tablet, By Mouth, 2 times a day, # 60 tablet, Refills 4, Tot. Refills 4, Maintenance, 05/02/22 14:40:00 EST, Route to Pharmacy Electronically, [facility]/pharmacy #[id number], Partial fill upon patient request if the prescription is for a schedule II opi... Start Date: 05/02/22 Status: Ordered project assistant grabber tool project assistant grabber tool, See Instructions, # 1 each, Refills 0, Tot. Refills 0, Maintenance, please dispense one project assistant grabber tool, ICD 10 M54.6, length of use 1 month, 04/12/22 10:13:00 EST, Supply Start Date: 04/12/22 Status: Ordered simethicone 125 mg oral tablet, chewable 1 tablet = 125 mg, Chew, 4 times a day, PRN gas pain, for 21 days, # 48 tablet, 4 Refills, Acute 09/25/22 10:05:00 EDT, 06/12/22 10:05:00 EDT, Chew Tablet, [facility], Partial fill upon patient request if the prescription is for a jacinda... Start Date: 06/12/22 Stop Date: 09/25/22 Status: Ordered SUMAtriptan 25 mg oral tablet 1 tablet, By Mouth, Daily, PRN NEEDED FOR MIGRAINES, for 30 days, MAY RPT DOSE AFTER 2 HRS TO MAX OF 2, # 12 tablet, 7 Refills, Physician Stop 12/15/22 14:36:00 EDT, 04/19/22 14:36:00 EST[id number] 157.5, cm, 04/11/22 10:50:00 EST, Height Start Date: 04/19/22 Stop Date: 12/15/22 Status: Ordered Topamax 25 mg oral tablet 3 tablet = 75 mg, By Mouth, Daily at bedtime, # 90 tablet, 6 Refills, Maintenance, 04/19/22 14:35:00 EST, Tablet, [facility]/pharmacy #[id number], 157.5, cm, 04/11/22 10:50:00 EST, Height Start Date: 04/19/22 Stop Date: 11/15/22 Status: Ordered Trulicity Pen 3 mg/0.5 mL subcutaneous solution See Instructions, INJECT 0.5ML SUBCUTANEOUSLY EVERY WEEK, ROTATE INJECTION SITES, # 2 mL, 5 Refills, 01/23/22 16:33:00 EDT, [facility], 157.5, cm, 01/20/22 13:38:00 EDT, Height Start Date: 01/23/22 Status: Ordered Trulicity Pen 4.5 mg/0.5 mL subcutaneous solution See Instructions, 4.5 mg Subcutaneous Infusion weekly. E11.9, # 4 each, 5 Refills, Maintenance, 03/22/22 15:41:00 EST, [facility], Partial fill upon patient request if the prescription is for a schedule II opioid drug., 157.5, cm, ... Start Date: 03/22/22 Status: Ordered Vascepa 1 g oral capsule 2 capsule = 2 Gm, By Mouth, 2 times a day, # 360 capsule, 5 Refills, Maintenance, 05/03/20 15:59:00EST, Capsule, [facility]/pharmacy #[id number], 157.48, cm, 03/04/20 14:14:00 EST, Height Start Date: 05/03/20 Status: Ordered Ventolin HFA 108 mcg/inh inhalation aerosol with adapter 1 puffs, Inhalation, 4 times a day, PRN NEEDED FOR WHEEZING, # 18 each, 0 Refills, Maintenance, 04/04/22 12:59:00 EST, [facility], 157.5, cm, 03/22/22 13:25:00 EST, Height Start Date: 04/04/22 Status: Ordered Problem List Condition Confirmation Course Effective Dates Status H ealth Status Informant Abdominal pain, right upper quadrant Confirmed Active Abdominal pain, RUQ Confirmed Active Backache Confirmed Active Breast pain in female Confirmed 09/12/11 Active Carpal Tunnel Syndrome Confirmed 01/05/11 Active Cholecystectomy Confirmed Active 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 No wall motion abnormalities, Does [...] Care team information Care Team Personnel Name: Sergo Bazzi MD Position: [facility] Primary Care Physician Member Role: PCP Address: Address: [address] [place] [address] [place] [address]- Name: Lizbeth Barnhart Position: [facility] RN Member Role: Primary Care Nurse Care Team Related Persons Name: LB HENLEY Address: [address] [place] [address] Name: LB HENLEY Address: home [address] [address] Name: MILENA CUBA Address: home [address] [place] [address]
--- OUTSIDE RECORDS SUMMARY | 2024-01-23 14:20 | XMS_ITS | Continuity of Care Document ---
Author Organization [facility] Address [address] [place] [address]- Care Team Providers Care Knot Borer Name Role Phone Sergo Bazzi MD Primary Care Physician [phone] [place] [facility] [place] 03/21/22 - 04/20/22 [facility] [address], [place] [address] Allergies, Adverse Reactions, Alerts Substance [...] (oldterm) 8 01/21/08 Given 1Result Comment: [01/22/2017] [facility] [id number] 2Admin Note: vis given dated 10/24/12 3Admin Note: vis given dated 10/01/11 4Admin Note: vis 5Admin Note: vis 6Admin Note: vis given: 10/27/2006 7Admin Note: vis given : 10/10/2005 8Admin Note: vis given 2007- Medications acetaminophen 500 mg oral tablet 2 tablet, By Mouth, 4 times a day, PRN NEEDED FOR PAIN, # 100 tablet, 1 Refills, Acute, 219:52:00 EDT, [facility], 157.48, cm, 10/11/20 9:39:00 EDT, Height Start Date: 10/26/20 Status: Ordered Alcohol Pads See Instructions, # 200 each, Refills 11, Tot. Refills 11, Maintenance, To cleans before injections5 x a day., 03/03/21 9:18:00 EST, E11.65, Compound, 157.48, cm, 03/01/21 15:54:00 EST, Height Start Date: 03/03/21 Stop Date: 02/26/22 Status: Ordered Zayny-Kfhmhv-Qswn 300 mg oral capsule 1 capsule, By Mouth, 2 times a day, NOT COVERED., # 60 capsule, 11 Refills, [facility], 157.48, cm, 01/27/21 9:30:00 EDT, Height Start Date: 01/30/21 Status: Ordered ammonium lactate 12% topical cream 1 application, Topically, 2 times a day, # 385 Gm, 3 Refills, Maintenance, 04/05/22 13:30:00 EST, Cream, [facility]/pharmacy #[id number], Partial fill upon patient request if the prescription is for a schedule IIopioid drug., 1 application Topically 2 times a day... Start Date: 04/05/22 Stop Date: 08/03/22 Status: Ordered atorvastatin 80 mg oral tablet 1 tablet = 80 mg, By Mouth, Daily, replaces Simvastatin, # 90 tablet, 4 Refills, Maintenance, 08/26/22 14:22:00 EDT, Tablet, [facility]/pharmacy #[id number], replaces simvastatin, 157.5, cm, 11/29/21 15:59:00 EDT, Height Start Date: 08/26/22 Stop Date: 11/19/23 Status: Ordered capsaicin 0.075% topical cream See Instructions, APPLY TO AFFECTED AREA TWICE A DAY, # 57 Gm, 4 Refills, Maintenance, 03/05/22 13:29:00 EST, [facility], 30, APPLY TO AFFECTED AREA TWICE A [...] tablet, 11 Refills, Maintenance, 08/19/20 16:26:00 EDT, [facility], 30, TAKE 1 TABLET BY MOUTH DAILY. INSTR:TAKE IT 2 HOURS SEPARATE FROM ORLISTAT (MIL[place]), 157.48... Start Date: 08/19/20 Status: Ordered diazepam 5 mg oral tablet TAKE 1/2 TABLET BY MOUTH EVERY MORNING AND TAKE 1 TAB BY MOUTH AT BEDTIME Start Date: 06/02/21 Status: Ordered diclofenac 1% topical gel See Instructions, APPLY TOPICALLY 4 TIMES A DAY NOT TO EXCEED 16 GRAMS/DAY/SINGLE JOINT OF LOWER EXTREMITIES, # 100 Gm, 6 Refills, Maintenance, 03/19/22 9:28:00 EST, [facility], 30, APPLY TOPICALLY 4 TIMES A DAY NOT TO EXCEED 16 GRAMS/DAY/SINGLE... Start Date: 03/19/22 Status: Ordered docusate sodium 100 mg oral capsule 100 mg, 1, capsule, By Mouth, 2 times a day, PRN, # 60 capsule, Refills 5, Tot. Refills 5, Maintenance, as needed for constipation, 11/10/21 9:17:00 EDT, Route to Pharmacy Electronically, [id number], Partial fill upon patient request if the pr... Start Date: 11/10/21 Status: Ordered fentaNYL 25 mcg/hr transdermal film, [...] 0 Refills, Maintenance, 03/22/22 16:35:00 EST, [facility], 30, INHALE 1 PUFF BY MOUTH TWICE A DAY, 157.5, cm, 03/22/22 13:25:00 EST, Height Start Date: 03/22/22 Status: Ordered fluticasone 50 mcg/inh nasal spray See Instructions, USE 1 SPRAY IN EACH NOSTRIL EVERY DAY, # 16 mL, 5 Refills, 12/29/21 15:10:00 EDT,[facility]/pharmacy #[id number], USE 1 SPRAY IN EACH NOSTRIL EVERY DAY, 157.5, cm, 11/29/21 15:59:00 EDT, Height Start Date: 12/29/21 Status: Ordered Freestyle Lancets See Instructions, # 200 each, Refills 5, Tot. Refills 5, Maintenance, use 4 X daily as directed forType 2 Diabetes Mellitus, 03/22/22 15:40:00 EST, Supply, 157.5, cm, 03/22/22 13:25:00 EST, Height Start Date: 03/22/22 Stop Date: 09/18/22 Status: Ordered Humalog Kwik Pen 100 units/mL subcutaneous injection See Instructions, Take 4-14 units 3 times daily before meals based on sliding scale via Subcutaneous Infusion. Max daily dose 42 units. E11.9, # 30 mL, 3 Refills, Maintenance, 03/22/22 15:43:00 EST, [facility], Partial fill upon patie... Start Date: 03/22/22 Status: Ordered Lantus Solostar Pen 100 units/mL subcutaneous solution See Instructions, Decreased to 60U once a day as of 12/29/19, # 30 mL, 9 Refills, Maintenance, 09/20/20 15:10:00 EDT, [facility], NEEDS 30 ML FOR 30 DAY SUPPLY E11.9, 157.48, cm, 05/31/20 9:41:00 EST, Height Start Date: 09/20/20 Status: Ordered Lantus Solostar Pen 100 units/mL subcutaneous solution See Instructions, Take 80 units via Subcutaneous Infusion Daily at bedtime. E11.9., # 30 mL, 9 Refills, Maintenance, 03/22/22 15:41:00 EST, [facility], Partial fill upon patient request if the prescription is for a schedule II opioid... Start Date: 03/22/22 Status: Ordered lidocaine 5% topical ointment See Instructions, APPLY TO AFFECTED AREA 3 TIMES A DAY, # 35.44 Gm, 11 Refills, Maintenance, 02/28/22 8:51:00 EST, [facility]/pharmacy #[id number], 30, APPLY TO AFFECTED AREA 3 TIMES A DAY, 157.5, cm, 02/21/22 14:36:00 EST, Height Start Date: 02/28/22 Status: Ordered losartan 50 mg oral tablet 1 tablet, By Mouth, Daily, # 30 tablet, 5 Refills, 12/08/21 16:06:00 EDT, [facility]/pharmacy #[id number], 157.5, cm, 11/29/21 15:59:00 EDT, Height Start Date: 12/08/21 Status: Ordered Lyrica 25 mg oral capsule See Instructions, 1 capsule By Mouth 1 time daily at bedtime. E11.9, # 30 each, 5 Refills, Maintenance, 09/18/21 12:21:00 EDT, Capsule, [facility]/pharmacy #[id number], Partial fill upon patient request if the prescription is for a schedule II opioid drug., 157.48... Start Date: 09/18/21 Status: Ordered mirtazapine 15 mg oral tablet 0 Refills, Maintenance, 06/02/21 14:25:00 EST, Partial fill upon patient request if the prescription is for a schedule II opioid drug. Start Date: 06/02/21 Status: Ordered omeprazole 20 mg oral delayed release tablet 1 tablet = 20 mg, By Mouth, 2 times a day, do not crush or chew, # 60 tablet, 2 Refills, Maintenance, 03/30/22 10:50:00 EST, EC Tablet, [facility]/pharmacy #[id number], Partial fill upon patient request if the prescription is for a schedule II opioid drug., 157.5,... Start Date: 03/30/22 Status: Ordered oxyCODONE 10 mg oral tablet TAKE 1/2 TAB EVERY 12 HOURS NEEDED FOR SEVERE NECK/LOW BACK PAIN. DO NOT FILL UNTIL 05/01/21 Start Date: 06/02/21 Status: Ordered Pen Hayes, 31 G x 8 mm BD Ultra Fine III See Instructions, # 450 each, Refills 3, Tot. Refills 3, Maintenance, e11.9, use for insulin injections up to 5 times daily, 90 day supply, 03/07/22 9:23:00 EST, Supply, 157.5, cm, 03/02/22 10:34:00 EST, Height Start Date: 03/07/22 Status: Ordered pioglitazone 30 mg oral tablet 1 tablet = 30 mg, By Mouth, Daily, # 30 tablet, 1 Refills, Maintenance, 04/11/22 11:31:00 EST, Tablet, [facility]/pharmacy #[id number], Partial fill upon patient request if the prescription is for a schedule II opioid drug., 157.5, cm, 04/11/22 10:50:00 EST, Height Start Date: 04/11/22 Status: Ordered bag making machine tender grabber tool bag making machine tender grabber tool, See Instructions, # 1 each, Refills 0, Tot. Refills 0, Maintenance, please dispense one bag making machine tender grabber tool, ICD 10 M54.6, length of use 1 month, 04/12/22 10:13:00 EST, Supply Start Date: 04/12/22 Status: Ordered simethicone 125 mg oral tablet, chewable 1 tablet = 125 mg, Chew, 4 times a day, PRN gas pain, for 21 days, # 48 tablet, 4 Refills, Acute 04/24/22 11:08:00 EST, 01/09/22 11:08:00 EDT, Chew Tablet, [facility]/pharmacy #[id number], Partial fill upon patient request if the prescription is for a schedule II... Start Date: 01/09/22 Stop Date: 04/24/22 Status: Ordered SUMAtriptan 25 mg oral tablet 1 tablet, By Mouth, Daily, PRN NEEDED FOR MIGRAINES, for 30 days, JULY RPT DOSE AFTER 2 HRS TO MAX OF 2, # 12 tablet, 7 Refills, Physician Stop 12/15/22 14:36:00 EDT, 04/19/22 14:36:00 EST, [facility]/pharmacy #[id number], 157.5, cm, 04/11/22 10:50:00 EST, Height Start Date: 04/19/22 Stop Date: 12/15/22 Status: Ordered Topamax 25 mg oral tablet 3 tablet = 75 mg, By Mouth, Daily at bedtime, # 90 tablet, 6 Refills, Maintenance, 04/19/22 14:35:00 EST, Tablet, [facility]/pharmacy #[id number], 157.5, cm, 04/11/22 10:50:00 EST, Height Start Date: 04/19/22 Stop Date: 11/15/22 Status: Ordered Trulicity Pen 3 mg/0.5 mL subcutaneous solution See Instructions, INJECT 0.5ML SUBCUTANEOUSLY EVERY WEEK, ROTATE INJECTION SITES, # 2 mL, 5 Refills, 01/23/22 16:33:00 EDT, [facility], 157.5, cm, 01/20/22 13:38:00 EDT, Height Start Date: 01/23/22 Status: Ordered Trulicity Pen 4.5 mg/0.5 mL subcutaneous solution See Instructions, 4.5 mg Subcutaneous Infusion weekly. E11.9, # 4 each, 5 Refills, Maintenance, 03/22/22 15:41:00 EST, [facility], Partial fill upon patient request if the prescription is for a schedule II opioid drug., 157.5, cm, ... Start Date: 03/22/22 Status: Ordered Vascepa 1 g oral capsule 2 capsule = 2 Gm, By Mouth, 2 times a day, # 360 capsule, 5 Refills, Maintenance, 05/03/20 15:59:00EST, Capsule, [facility]/pharmacy #[id number], 157.48, cm, 03/04/20 14:14:00 EST, Height Start Date: 05/03/20 Status: Ordered Ventolin HFA 108 mcg/inh inhalation aerosol with adapter 1 puffs, Inhalation, 4 times a day, PRN NEEDED FOR WHEEZING, # 18 each, 0 Refills, Maintenance, 04/04/22 12:59:00 EST, [id number], 157.5, cm, 03/22/22 13:25:00 EST, Height Start Date: 04/04/22 Status: Ordered Problem List Condition Confirmation Course Effective Dates Status H ealth Status Informant Abdominal pain, right upper quadrant Confirmed Active Abdominal pain, RUQ Confirmed Active Backache Confirmed Active Breast pain in female Confirmed 09/12/11 Active Carpal Tunnel Syndrome Confirmed 01/05/11 Active Cholecystectomy Confirmed Active Constipation Confirmed Active Diabetes mellitus type 2 Confirmed Active Echocardiogram abnormal 1 Confirmed Active Epigastric pain 2 Confirmed Active Fall Confirmed Active Hyperlipidemia Confirmed Active Hypertension Confirmed Active Stool incontinence Confirmed Active Loose stools Confirmed Active Back pain NOS 3 Confirmed Active Migraine Confirmed 01/05/11 Active Multinodular goiter Confirmed Active Numbness of left foot Confirmed Active Obesity Confirmed Active Obesity monitoring Confirmed Active STORMY (obstructive sleep apnea) 4 Confirmed Active Osteoarthritis, L knee mild tricompartmental Confirmed Active PAIN IN JOINT INVOLVING MULTIPLE SITES Confirmed Active 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 No wall motion abnormalities, Does [...] Team Personnel Name: Sergo Bazzi MD Position: S Primary Care Physician Member Role: PCP Address: Address: [address] [place] [address] [place] [address]- Care Team Related Persons Name: LB HENLEY Address: home [address] [place] [id number] Name: LB HENLEY Address: [address] [place] [address] Name: MILENA CUBA Address: home [address] [place] [address] [address] [place] [address]
--- OUTSIDE RECORDS SUMMARY | 2024-01-23 14:20 | XMS_ITS | Continuity of Care Document ---
Author Organization [facility] Address [address] [facility], [address] d Floor, [address] [place] [id number]- Care Team Providers Care Social Welfare Administrator Name Role Phone Sergo Bazzi MD Primary Care Physician Encounter [facility] [place] Date(s): 11/27/22 - 12/27/22 [facility] [address], [address], [address] [place] [address] Attending Physician: AdmBroderick enriquez Admitting Physician: AdmtrBroderick Referring Physician: Admtr, [id number] Allergies, Adverse Reactions, [...] (oldterm) 8 01/21/08 Given 1Result Comment: [01/22/2017] [facility] [id number] 2Admin Note: vis given dated 10/24/12 3Admin [...] 100 tablet, 1 Refills, Acute, 219:52:00 EDT, [facility], 157.48, cm, 10/11/20 9:39:00 EDT, Height Start Date: 10/26/20 Status: Ordered Alcohol Pads See Instructions, # 200 each, Refills 11, Tot. Refills 11, Maintenance, To cleans before injections5 x a day., 03/03/21 9:18:00 EST, E11.65, Compound, 157.48, cm, 03/01/21 15:54:00 EST, Height Start Date: 03/03/21 Stop Date: 02/26/22 Status: Ordered Tkori-Rszapv-Bqor 300 mg oral capsule 1 capsule, By Mouth, 2 times a day, NOT COVERED., # 60 capsule, 11 Refills, [id number], 157.48, cm, 01/27/21 9:30:00 EDT, Height Start Date: 01/30/21 Status: Ordered ammonium lactate 12% topical cream 1 application, Topically, 2 times a day, # 385 Gm, 1 Refills, Maintenance, 12/22/22 14:16:00 EDT, Cream, [facility]/pharmacy #[id number], Partial fill upon patient request if the prescription is for a schedule IIopioid drug., 1 application Topically 2 times a day... Start Date: 12/22/22 Stop Date: 02/20/23 Status: Ordered atorvastatin 80 mg oral tablet 1 tablet = 80 mg, By Mouth, Daily, replaces Simvastatin, # 90 tablet, 1 Refills, Maintenance, 11/19/23 14:22:00 EDT, Tablet, [facility]/pharmacy #[id number], replaces simvastatin, 157.5, cm, 11/26/22 14:11:00 EDT, Height Start Date: 11/19/23 Stop Date: 05/17/24 Status: Ordered atorvastatin 80 mg oral tablet 1 tablet = 80 mg, By Mouth, Daily, for 90 days, replaces Simvastatin, # 90 tablet, 4 Refills, Hard Stop 11/19/23 14:22:00 EDT, 08/26/22 14:22:00 EDT, Tablet, [facility]/pharmacy #[id number], replaces simvastatin,157.5, cm, 11/29/21 15:59:00 EDT, Height Start Date: 08/26/22 Stop Date: 11/19/23 Status: Ordered BD Single Use Swab 70% topical pad See Instructions, TO CLEANS BEFORE INJECTIONS 5 X A DAY., # 150 Unknown, 11 Refills, Maintenance, 08/16/22 10:15:00 EDT, [facility], 30, TO CLEANS BEFORE INJECTIONS 5 X A DAY., 157.5, cm, 08/01/22 9:27:00 EDT, Height Start Date: 08/16/22 Status: Ordered capsaicin 0.075% topical cream See Instructions, APPLY TO AFFECTED AREA TWICE A DAY, # 57 Gm, 4 Refills, Maintenance, 08/24/22 14:16:00 EDT, [facility]/pharmacy #[id number], 30, APPLY TO AFFECTED AREA TWICE A DAY, 157.5, cm, 08/01/22 9:27:00 EDT, Height Start Date: 08/24/22 Status: Ordered CPAP Supplies CPAP Supplies, See Instructions, # 1 each, Refills 0, Tot. Refills 0, Maintenance, Directions: Use daily when sleeping Dx: STORMY G47.33 Duration: Lifetime, 12/20/22 11:01:00 EST, Supply Start Date: 03/20/22 Status: Ordered Daily David oral tablet 1 tablet, By Mouth, Daily, INSTR:TAKE IT 2 HOURS SEPARATE FROM ORLISTAT ([place]), # 30 tablet, 11 Refills, Maintenance, 07/09/22 10:30:00 EDT, [facility]/pharmacy #[id number], 30, 1 tablet By Mouth Daily,Instr:INSTR:TAKE IT 2 HOURS SEPARATE FROM ORLISTAT ([place]), 157... Start Date: 07/09/22 Status: Ordered diclofenac 1% topical gel See Instructions, APPLY TOPICALLY 4 TIMES A DAY NOT TO EXCEED 16 GRAMS/DAY/SINGLE JOINT OF LOWER EXTREMITIES, # 100 Gm, 1 Refills, Maintenance, 12/14/22 6:14:00 EDT, [facility]/pharmacy #[id number], 30, APPLY TOPICALLY 4 TIMES A DAY NOT TO EXCEED 16 GRAMS/DAY/SING... Start Date: 12/14/22 Status: Ordered docusate sodium 100 mg oral capsule See Instructions, TAKE 1 CAPSULE BY MOUTH TWICE A DAY NEEDED FOR CONSTIPATION, # 60 capsule, 5 Refills, Maintenance, 07/03/22 18:20:00 EDT, [facility]/pharmacy #[id number], Duplicate Rx. Original sent 07/03/22 with routing error. Re- sending to pharmacy, 157.5, cm... Start Date: 07/03/22 Status: Ordered docusate sodium 100 mg oral capsule 100 mg, 1, capsule, By Mouth, 2 times a day, PRN, # 60 capsule, Refills 5, Tot. Refills 5, Maintenance, as needed for constipation, 06/12/22 9:52:00 EDT, Route to Pharmacy Electronically, [facility]/pharmacy #[id number], Partial fill upon patient request if the pr... Start Date: 06/12/22 Status: Ordered esomeprazole 40 mg oral enteric coated capsule 1 capsule = 40 mg, By Mouth, Daily, # 90 capsule, 0 Refills, Maintenance, 12/24/22 15:20:00 EDT, [facility]/pharmacy #[id number], Partial fill upon patient request [...] each, 0 Refills, Maintenance, 09/20/22 9:36:00 EDT, [facility], 30, INHALE 1 PUFF BY MOUTH TWICE A DAY, 157.5, cm, 09/05/22 16:22:00 EDT, Height Start Date: 09/20/22 Status: Ordered fluticasone 50 mcg/inh nasal spray See Instructions, SPRAY 1 SPRAY INTO EACH NOSTRIL EVERY DAY, # 16 mL, 5 Refills, Maintenance, 07/05/22 16:20:00 EDT, [facility], 30, SPRAY 1 SPRAY INTO EACH NOSTRIL [...] mL, 6 Refills, Maintenance, 11/26/22 14:55:00 EDT, [facility], Partial fill upon patie... Start Date: 11/26/22 Status: Ordered Lactaid 3000 units oral tablet 3 tablet = 9,000 units, By Mouth, 3 times a day with meals, # 120 tablet, 5 Refills, Maintenance, 08/17/22 9:03:00 EDT, Tablet, [id number], Partial fill upon patient request if the prescription is for a schedule II opioid drug., 157.5, cm, ... Start Date: 08/17/22 Stop Date: 02/13/23 Status: Ordered Lantus Solostar Pen 100 units/mL subcutaneous solution See Instructions, Take 45 units in the AM and 45 units daily at bedtime. E11.9., # 30 mL, 9 Refills, Maintenance, 11/26/22 14:55:00 EDT, [facility], Partial fill upon patient requestif the prescription is for a schedule II opioid lucas... Start Date: 11/26/22 Status: Ordered lidocaine 5% topical ointment See Instructions, APPLY TO AFFECTED AREA 3 TIMES A DAY, # 35.44 Gm, 11 Refills, Maintenance, 02/28/22 8:51:00 EST, [facility]/pharmacy #[id number], 30, APPLY TO AFFECTED AREA 3 TIMES A DAY, 157.5, cm, 02/21/22 14:36:00 EST, Height Start Date: 02/28/22 Status: Ordered lidocaine 5% topical ointment See Instructions, APPLY TO AFFECTED AREA 3 TIMES A DAY, # 35.44 Gm, 11 Refills, Maintenance, 07/03/22 18:22:00 EDT, [facility]/pharmacy #[id number], 30, Duplicate Rx. Original sent [...] 5 Refills, Maintenance, 05/01/22 18:04:00 EST, Capsule, [facility]/pharmacy #[id number], Partial fill upon patient request if the prescription is for a schedule II opioid drug., 157.5,... Start Date: 05/01/22 Status: Ordered mirtazapine 15 mg oral tablet 1 tablet = 15 mg, By Mouth, Daily at bedtime, # 30 tablet, 4 Refills, Maintenance, 12/06/22 13:07:00 EDT, Tablet, [facility]/pharmacy #[id number], Partial fill upon patient request if the prescription is for a schedule II opioid drug., 157.5, cm, 11/26/22 14:11:00... Start Date: 12/06/22 Stop Date: 05/05/23 Status: Ordered [place]-3 Fish Oil 1000 mg oral capsule 1 capsule = 1,000 mg, By Mouth, Daily, # 90 capsule, 1 Refills, Maintenance, 08/01/22 10:17:00 EDT,[id number], Partial fill upon patient request if [...] 05/01/21 Start Date: 06/02/21 Status: Ordered Pen [place], 31 G x 8 mm BD Ultra [...] 12/06/22 13:08:00 EDT, Route to Pharmacy Electronically, [facility]/pharmacy #[id number], Partial fill upon patient request if the prescription is for a schedule II opi... Start Date: 12/06/22 Stop Date: 05/05/23 Status: Ordered inclinometer tester grabber tool inclinometer tester grabber tool, See Instructions, # 1 each, Refills 0, Tot. Refills 0, Maintenance, please dispense one inclinometer tester grabber tool, ICD 10 M54.6, length of [...] 6 Refills, Maintenance, 06/26/22 10:14:00 EDT, Tablet, [facility], 157.5, cm, 06/21/22 8:43:00 EDT, Height Start Date: 06/26/22 Stop Date: 01/22/23 Status: Ordered Trulicity Pen 4.5 mg/0.5 mL subcutaneous solution See Instructions, INJECT 4.5 MG SUBCUTANEOUSLY ONCE A WEEK, # 2 mL, 5 Refills, Maintenance, 11/21/22 8:33:00 EDT, [facility], 157.5, cm, 11/16/22 13:50:00 EDT, Height Start Date: 11/21/22 Status: Ordered valACYclovir 500 mg oral tablet 1, tablet, By Mouth, 2 times a day, PRN, # 6 tablet, Refills 1, Tot. Refills 1, Maintenance, NEEDED FOR OUTBREAKS, 12/14/22 6:14:00 EDT, Route to Pharmacy Electronically, [facility]/pharmacy #[id number], 157.5, cm, 11/26/22 14:11:00 EDT, [...] Refills, Maintenance, 09/17/22 15:25:00 EDT, [id number], 157.5, cm, 09/05/22 16:22:00 EDT, Height Start [...] 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 *Briana Garces, Rod Buster Helper, ICP [phone] Confirmed Active PTSD (post-traumatic stress disorder) Confirmed Active Reflux Confirmed Active Severe obesity (BMI 35.0-39.9) with comorbidity Confirmed Active Hepatic steatosis Confirmed Active Tubular adenoma of colon Confirmed Active 19514 -EF 60-65%. No wall motion abnormalities, Does [...] Name: Rose Mary FISCHER, Sergo Cole Position: [facility] Physician - Primary Care Member Role: PCP Address: Address: [address] [place] [address] [place] [address]- Name: Lizbeth Collins [place] Position: [facility] RN Member Role: Primary Care Nurse Care Team Related Persons Name: LB HENLEY Address: [address] [place] [address] Name: LB HENLEY Address: home [address] [address] Name: MILENA CUBA Address: home [address] [facility] [facility] [address] [place] [address]
--- OUTSIDE RECORDS SUMMARY | 2024-01-23 14:21 | XMS_ITS | Continuity of Care Document ---
Author Organization [facility] Address [address] [place] [address]- Care Team Providers Care Efficiency Manager Name Role Phone Rose Mary FISCHER, Sergo Cole Primary Care Physician Encounter [facility] Date(s): 09/25/22 - 10/25/22 [facility] [address], [place] [address] Allergies, Adverse Reactions, Alerts Substance Reaction [...] (oldterm) 8 01/21/08 Given 1Result Comment: [01/22/2017] [facility] [id number] 2Admin Note: vis given dated 10/24/12 3Admin Note: vis given dated 10/01/11 4Admin Note: vis 5Admin Note: vis 6Admin Note: vis given: 10/27/2006 7Admin Note: vis given : 10/10/2005 8Admin Note: vis given 2007- Medications acetaminophen 500 mg oral tablet 2 tablet, By Mouth, 4 times a day, PRN NEEDED FOR PAIN, # 100 tablet, 1 Refills, Acute, 219:52:00 EDT, [id number], 157.48, cm, 10/11/20 9:39:00 EDT, Height Start Date: 10/26/20 Status: Ordered Alcohol Pads See Instructions, # 200 each, Refills 11, Tot. Refills 11, Maintenance, To cleans before injections5 x a day., 03/03/21 9:18:00 EST, E11.65, Compound, 157.48, cm, 03/01/21 15:54:00 EST, Height Start Date: 03/03/21 Stop Date: 02/26/22 Status: Ordered Xpbyq-Hakelb-Lruw 300 mg oral capsule 1 capsule, By Mouth, 2 times a day, NOT COVERED., # 60 capsule, 11 Refills, [id number], 157.48, cm, 01/27/21 9:30:00 EDT, Height Start Date: 01/30/21 Status: Ordered ammonium lactate 12% topical cream 1 application, Topically, 2 times a day, # 385 Gm, 3 Refills, Maintenance, 08/24/22 14:16:00 EDT, Cream, [id number], Partial fill upon patient request if the prescription is for a schedule IIopioid drug., 1 application Topically 2 times a day... Start Date: 08/24/22 Stop Date: 12/22/22 Status: Ordered atorvastatin 80 mg oral tablet [...] Unknown, 11 Refills, Maintenance, 08/16/22 10:15:00 EDT, [facility], 30, TO CLEANS BEFORE INJECTIONS 5 X A DAY., 157.5, cm, 08/01/22 9:27:00 EDT, Height Start Date: 08/16/22 Status: Ordered capsaicin 0.075% topical cream See Instructions, APPLY TO AFFECTED AREA TWICE A DAY, # 57 Gm, 4 Refills, Maintenance, 08/24/22 14:16:00 EDT, [facility] #[id number], 30, APPLY TO AFFECTED AREA TWICE [...] tablet, 11 Refills, Maintenance, 07/09/22 10:30:00 EDT, [id number], 30, 1 tablet By Mouth Daily,Instr:INSTR:TAKE IT 2 HOURS SEPARATE FROM ORLISTAT ([place]), 157... Start Date: 07/09/22 Status: Ordered diazepam 10 mg oral tablet See Instructions, PRN, 1/2 tablet By Mouth in AM and 1 tab at HS, # 45 tablet, Refills 4, Tot. Refills 4, Maintenance, as needed for anxiety, 08/30/22 13:32:00 EDT, Instructions Replace Required Details, Route to Pharmacy Electronically, [facility] Start Date: 08/30/22 Status: Ordered diclofenac 1% topical gel See Instructions, APPLY TOPICALLY 4 TIMES A DAY NOT TO EXCEED 16 GRAMS/DAY/SINGLE JOINT OF LOWER EXTREMITIES, # 100 Gm, 6 Refills, Maintenance, 08/24/22 14:16:00 EDT, [facility]pharm[facility] #[id number], 30, APPLY TOPICALLY 4 TIMES A DAY NOT TO EXCEED 16 GRAMS/DAY/SIN... Start Date: 08/24/22 Status: Ordered docusate sodium 100 mg oral capsule See Instructions, TAKE 1 CAPSULE BY MOUTH TWICE A DAY NEEDED FOR CONSTIPATION, # 60 capsule, 5 Refills, Maintenance, 07/03/22 18:20:00 EDT, [facility]/pharm[facility] #[id number], Duplicate Rx. Original sent 07/03/22 with routing error. Re- sending to pharmacy, 157.5, cm... Start Date: 07/03/22 Status: Ordered docusate sodium 100 mg oral capsule 100 mg, 1, capsule, By Mouth, 2 times a day, PRN, # 60 capsule, Refills 5, Tot. Refills 5, Maintenance, as needed for constipation, 06/12/22 9:52:00 EDT, Route to Pharmacy Electronically, [facility]pharm[facility] #[id number], Partial fill upon patient request if [...] Refills, Maintenance, 09/20/22 9:36:00 EDT, [id number], 30, INHALE 1 PUFF BY MOUTH TWICE A DAY, 157.5, cm, 09/05/22 16:22:00 EDT, Height Start Date: 09/20/22 Status: Ordered fluticasone 50 mcg/inh nasal spray See Instructions, SPRAY 1 SPRAY INTO EACH NOSTRIL EVERY DAY, # 16 mL, 5 Refills, Maintenance, 07/05/22 16:20:00 EDT, [id number], 30, SPRAY 1 SPRAY INTO EACH NOSTRIL [...] mL, 6 Refills, Maintenance, 06/12/22 10:00:00 EDT, [facility], Partial fill upon patie... Start Date: 06/12/22 Status: Ordered Lactaid 3000 units oral tablet 3 tablet = 9,000 units, By Mouth, 3 times a day with meals, # 120 tablet, 5 Refills, Maintenance, 08/17/22 9:03:00 EDT, Tablet, [facility]/pharm[facility] #[id number], Partial fill upon patient request if the prescription is for a schedule II opioid drug., 157.5, cm, ... Start Date: 08/17/22 Stop Date: 02/13/23 Status: Ordered Lantus Solostar Pen 100 units/mL subcutaneous solution See Instructions, Take 45 units in the AM and 45 units daily at bedtime. E11.9., # 30 mL, 9 Refills, Maintenance, 06/19/22 16:50:00 EDT, [facility], Partial fill upon patient requestif the prescription is for a schedule II opioid lucas... Start Date: 06/19/22 Status: Ordered lidocaine 5% topical ointment See Instructions, APPLY TO AFFECTED AREA 3 TIMES A DAY, # 35.44 Gm, 11 Refills, Maintenance, 02/28/22 8:51:00 EST, [facility]/pharm[facility] #[id number], 30, APPLY TO AFFECTED AREA 3 TIMES A DAY, 157.5, cm, 02/21/22 14:36:00 EST, Height Start Date: 02/28/22 Status: Ordered lidocaine 5% topical ointment See Instructions, APPLY TO AFFECTED AREA 3 TIMES A DAY, # 35.44 Gm, 11 Refills, Maintenance, 07/03/22 18:22:00 EDT, [facility]/pharm[facility] #[id number], 30, Duplicate Rx. Original sent 07/03/22 [...] 5 Refills, Maintenance, 05/01/22 18:04:00 EST, Capsule, [facility]/pharm[facility] #[id number], Partial fill upon patient request if the prescription is for a schedule II opioid drug., 157.5,... Start Date: 05/01/22 Status: Ordered mirtazapine 15 mg oral tablet 1 tablet = 15 mg, By Mouth, Daily at bedtime, # 30 tablet, 4 Refills, Maintenance, 05/02/22 14:02:00 EST, Tablet, [id number], Partial fill upon patient request if the prescription is for a schedule II opioid drug., 157.5, cm, 04/11/22 10:50:00... Start Date: 05/02/22 Stop Date: 09/29/22 Status: Ordered Nexium 40 mg oral enteric coated capsule 1 capsule = 40 mg, By Mouth, Daily, BRNAD NAME ONLY, # 90 capsule, 0 Refills, Maintenance, 10/18/2313:25:00 EDT, [id number], Partial fill upon patient request if the prescription is for a schedule II opioid drug., 157.5, cm, 10/08/22 18:20:00... Start Date: 10/18/22 Stop Date: 01/16/23 Status: Ordered [place]-3 Fish Oil 1000 mg oral capsule 1 capsule = 1,000 mg, By Mouth, Daily, # 90 capsule, 1 Refills, Maintenance, 08/01/22 10:17:00 EDT,[facility] #[id number], Partial fill upon patient request if the prescription is for a schedule II opioid drug., 157.5, cm, 08/01/22 9:27:00 EDT, Height Start Date: 08/01/22 Status: Ordered omeprazole 20 mg oral delayed release tablet 1 tablet = 20 mg, By Mouth, 2 times a day, do not crush or chew, # 60 tablet, 2 Refills, Maintenance, 06/14/22 16:40:00 EDT, EC Tablet, [facility]/pharm[facility] #[id number], Partial fill upon patient request if the prescription is for a schedule II opioid drug., 157.5,... Start Date: 06/14/22 Status: Ordered oxyCODONE 10 mg oral tablet TAKE 1/2 TAB EVERY 12 HOURS NEEDED FOR SEVERE NECK/LOW BACK PAIN. DO NOT FILL UNTIL 05/01/21 Start Date: 06/02/21 Status: Ordered [place], 31 G x 8 mm BD Ultra [...] tablet, Refills 4, Tot. Refills 4, Maintenance, 08/30/22 13:31:00 EDT, Route to Pharmacy Electronically, [facility]pharm[facility] #[id number], Partial fill upon patient request if the prescription is for a schedule II opi... Start Date: 08/30/22 Stop Date: 01/27/23 Status: Ordered supervisor tumblers grabber tool supervisor tumblers grabber tool, See Instructions, # 1 each, Refills 0, Tot. Refills 0, Maintenance, please dispense one supervisor tumblers grabber tool, ICD 10 M54.6, length of use 1 month, 04/12/22 10:13:00 EST, Supply Start Date: 04/12/22 Status: Ordered replacement hospital bed with mattress replacement hospital bed with mattress, See Instructions, # 1 each, Refills 0, Tot. Refills 0, Maintenance, please dispense 1 replacement hospital bed tala candelaria, DX G89.4, length of use lifetime, 06/20/22 14:20:00 EDT, Supply Start Date: 06/20/22 Status: Ordered simethicone 125 mg oral tablet, chewable 1 tablet = 125 mg, Chew, 4 times a day, PRN gas pain, for 21 days, # 48 tablet, 4 Refills, Acute 12/07/22 14:16:00 EDT, 08/24/22 14:16:00 EDT, Chew Tablet, [facility] #[id number], Partial fill upon patient request if the prescription is for a schedule II... Start Date: 08/24/22 Stop Date: 12/07/22 Status: Ordered SUMAtriptan 25 mg oral tablet 1 tablet, By Mouth, Daily, PRN NEEDED FOR MIGRAINES, for 30 days, MAY RPT DOSE AFTER 2 HRS TO MAX OF 2, # 12 tablet, 7 Refills, Physician Stop 12/15/22 14:36:00 EDT, 04/19/22 14:36:00 EST, [facility] #[id number], 157.5, cm, 04/11/22 10:50:00 EST, Height Start Date: 04/19/22 Stop Date: 12/15/22 Status: Ordered Topamax 25 mg oral tablet 3 tablet = 75 mg, By Mouth, Daily at bedtime, # 90 tablet, 6 Refills, Maintenance, 06/26/22 10:14:00 EDT, Tablet, [facility], 157.5, cm, 06/21/22 8:43:00 EDT, Height Start Date: 06/26/22 Stop Date: 01/22/23 Status: Ordered Trulicity Pen 3 mg/0.5 mL subcutaneous solution See Instructions, INJECT 0.5ML SUBCUTANEOUSLY EVERY WEEK, ROTATE INJECTION SITES, # 2 mL, 5 Refills, 01/23/22 16:33:00 EDT, [facility], 157.5, cm, 01/20/22 13:38:00 EDT, Height Start Date: 01/23/22 Status: Ordered Trulicity Pen 4.5 mg/0.5 mL subcutaneous solution See Instructions, 4.5 mg Subcutaneous Infusion weekly. E11.9, # 4 each, 5 Refills, Maintenance, 06/19/22 17:00:00 EDT, [facility], Partial fill upon patient request if the prescription is for a schedule II opioid drug., 157.5, cm, ... Start Date: 06/19/22 Status: Ordered valACYclovir 500 mg oral tablet 1, tablet, By Mouth, 2 times a day, PRN, # 6 tablet, Refills 2, Maintenance, NEEDED FOR OUTBREAKS, 07/11/22 16:11:00 EDT, Route to Pharmacy Electronically, [id number], 157.5, cm, 06/21/22 8:43:00 EDT, Height Start Date: 07/11/22 Stop Date: 07/14/22 Status: Ordered Vascepa 1 g oral capsule 2 capsule = 2 Gm, By Mouth, 2 times a day, # 360 capsule, 5 Refills, Maintenance, 05/03/20 15:59:00EST, Capsule, [facility] #[id number], 157.48, cm, 03/04/20 14:14:00 EST, Height Start Date: 05/03/20 Status: Ordered Ventolin HFA 108 mcg/inh inhalation aerosol with adapter 1 puffs, Inhalation, 4 times a day, PRN NEEDED FOR WHEEZING, # 18 each, 0 Refills, Maintenance, 09/17/22 15:25:00 EDT, [id number], 157.5, cm, 09/05/22 16:22:00 EDT, Height Start [...] 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 RN Member Role: Primary Care Nurse Care Team Related Persons Name: LB HENLEY Address: home [address] [address] Name: LB HENLEY Address: [address] [place] [address] Name: MILENA CUBA Address: home [address] [place] [address]
--- OUTSIDE RECORDS SUMMARY | 2024-01-23 14:21 | XMS_ITS | Continuity of Care Document ---
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 to take any drugs.??Will physical activity be limited?When you are in pain, you may need to rest in bed. To ease the pain, use a heat compress on your belly. This should last only for a few days.??What changes to diet are needed?Talk to your doctor about any changes you need to make to your diet.? You do not need to avoid seeds, nuts, corn, or other similar foods. ??? You will need to eat food rich in fiber and drink more water. o Eat 5 or more servings of fresh fruits and vegetables every day. o Eat 6 or more servings of whole-wheat grain breads and??cereals. ??? Try toget 25 to 30 grams of fiber every day. Read the labels to??learn how much fiber is in foods. ??? Donot drink coffee, tea, or beer, wine, and mixed drinks (alcohol). ??What problems could happen?You may develop diverticulitis, which may cause:? Pockets or pouches in your bowel may be infected or filled with pus. ??? Hole or tear in your bowel ??? Part of your bowel to become narrow ??? You to need surgery ??What can be done to prevent this health problem?The best way to keep from having diverticulosis is to keep your bowel movements soft and normal. To keep more pouches from forming:? Talk with your doctor about adding an qxck-tei-xjcqegg (OTC) fiber??product to keep your stools soft. ??? Limithow much pain drugs you take. Overuse of some pain drugs can??cause hard stools; talk with your doctor. ??? When do I need to call the doctor? Signs of infection. These include a fever of 100.4??F (38??C) or higher,??chills. ??? Mild pain or cramping in the lower part of the belly ??? A feelingof bloating in the belly ??? Belly pain that gets worse ??? Blood in your stool ??? Upset stomach or throwing up ??? Stools get too loose or too hard ??? Long-term hard stools ??Teach Back: Helping You UnderstandThe Teach Back Method helps you understand the information we are giving you. After you talk with the staff, tell them in your own words what you learned. This helps to make sure the staff has described each thing clearly. It also helps to explain things that mayhave been confusing. Before going home, make sure you are able to do these:? I can tell you abo ut my condition. ??? I can tell you what changes I need to make with my diet or drugs. ??? I can tell you what I will do if I have pain or cramping in my lower belly??or I have more belly pain. ??Where can I learn more???FamilyDoctor.orghttp://familydoctor.org/familydoctor/en/diseases-conditio ns/div erticular-disease.htmlNHShttps://www.nhs.uk/conditions/krsjejzamube-hinwhfx-ofv- diverticulitis/LastReviewed Luun4715-39-29Ucfjnlvd Information Use and Disclaimer:This generalized information is a limited summary of diagnosis, treatment, and/or medication information. It is not meant to be comprehensive and should be used as a tool to help the user understand and/or assess potential diagnostic and treatment options. It does NOT include all information about conditions, treatments, medications, side effects, or risks that may apply to a specific patient. It is not intended to be medical adviceor a substitute for the medical advice, diagnosis, or treatment of a health care provider based on the health care provider's examination and assessment of a patient???s specific and unique circumstances. Patients must speak with a health care provider for complete information about their health, medical questions, and treatment options, including any risks or benefits regarding use of medications. This information does not endorse any treatments or medications as safe, effective, or approved for treating a specific patient. [employer] and its affiliates disclaim any warranty or liabilityrelating to this information or the use thereof. The use of this information is governed by the Terms of Use, available at??https://www.[employer]/en/know/sfwptdlp-gssidjclrflyb-oqffiRcpm Updat ed 05/24/21? * Chad LOPEZ, Kelly T: PERFORM Event Display: Patient Education Leaflets Authored Date: [id number] Colon Polypectomy Discharge Instructions ?? 682 ?? Colon Polypectomy Discharge Instructions ??You must carefully read the Consumer Information Use and Disclaimer below in order to understand and correctly use this information??About this topicThe colon is also called the large intestine. It is a long, hollow tube at the end of your digestive tract. It absorbs water from solid waste and changes it from liquid to a solid bowel movement.??A colon polyp is a growth of extra tissue that is not normally in your colon. Colon polyps do not often cause any signs. Most colon polyps are not cancer, but some polyps may turn into cancer. The doctor takes the polyps out during a procedure called a colonoscopy and sends them to the lab for a check to make sure there is no cancer.??You may have a colon polyp or multiple polyps removed. The doctor will send them to the lab to see what type they are. If a polyp is very large, it may need to be removed by surgery.??What care is needed at home? Ask your doctor what you need to do when you go home. Make sure??you ask questions if you do not understand what the doctor says. ??? Do not drive for 24 hours after a colonoscopy. ??? Take your drugs as ordered by your doctor. ??? Go back to your normaldiet unless your doctor has told you to make? some changes in your diet. ??? Rest ??What follow-up care is needed? Your doctor may ask you to make visits to the office to check on your??progress. Be sure to keep these visits. ??? Your doctor may suggest you get tested regularly. People with colon??polyps need to have a colonoscopy regularly to check for the growth??of new polyps. ??? Some polyps may not be removed, and more surgery may be needed. ??? The results of the polyp testing will be given to you at one of these??visits. ??What drugs may be needed?The doctor may order drugs to: ??? Prevent hard stools ??? Help with pain ??? Reduce your risk of colon polyps or colon cancer ??Will physical activity be limited?You may feel sleepy after the colonoscopy. Try to get some rest.??What can be done to prevent this health problem? Have regular colonoscopies.? Eat foods high in fiber. ??? Eat foods low in fat. ??? Limit your intake of beer, wine, and mixed drinks (alcohol). ??? Ask your doctor or dietitian for a diet that is right for you. Include??calcium in your diet. Good sources of calcium include milk, cheese,??and yogurt. ??When do I need to call the doctor? Signs of infection. These include a fever of 100.4??F (38??C) or higher,??chills, and anal itching or pain. ??? Bleeding from rectum that gets worse? Belly becomes swollen and sore ??? Upset stomach and throwing up continues after you return home ??? Not being able to move your bowels ??? Weight loss without trying ??? Blood in your stool ??Teach Back: Helping You UnderstandThe Teach Back Method helps you understand the information we are giving you. After you talk with the staff, tell them in your own words what you learned. This helps to make sure the staff has described each thing clearly. It also helps to explain things that mayhave been confusing. Before going home, make sure you can do these:? I can tell you about my co ndition. ??? I can tell you what changes I need to make with my diet. ??? I can tell you what I will do if my stomach is swollen, I have belly pain,??or there is blood in my stool. ??Where can I learn more?BetterHealthhttps://www.betterhealth.crhistin.gov.au/health/ConditionsAndTreatme nts/colonoscopyNHSh ttps://www.nhs.uk/conditions/bowel-polyps/UpToDatehttps://www.[employer]/mita nts/agidx-uzbyot-exqwwg-the-basics??Last Reviewed Avku3419-56-11Uxxamyrh Information Use and Disclaimer:This generalized information is a limited summary of diagnosis, treatment, and/or medication information. It is notmeant to be comprehensive and should be used as a tool to help the user understand and/or assess potential diagnostic and treatment options. It does NOT include all information about conditions, treatments, medications, side effects, or risks that may apply to a specific patient. It is not intendedto be medical advice or a substitute for the medical advice, diagnosis, or treatment of a health care provider based on the health care provider's examination and assessment of a patient???s specificand unique circumstances. Patients must speak with a health care provider for complete information about their health, medical questions, and treatment options, including any risks or benefits regarding use of medications. This information does not endorse any treatments or medications as safe, effective, or approved for treating a specific patient. [employer] and its affiliates disclaim any warranty or liability relating to this information or the use thereof. The use of this information is governed by the Terms of Use, available at??https://www.[employer]/en/know/clinical-effectiveness- termsLast Updated 05/24/21? Patient Care team information Care Team Personnel Name: Sergo Bazzi MD Position: S Primary Care Physician Member Role: PCP Address: Address: [address] [facility] [place] [address]- Care Team Related Persons Name: LB HENLEY Address: home [address] [address] Name: LB HENLEY Address: home [address] [place] [address] Name: MILENA CUBA Address: home [address] [place] [address]
--- OUTSIDE RECORDS SUMMARY | 2024-01-23 14:21 | XMS_ITS | Continuity of Care Document ---
Author Organization [facility] Address [address] [place] [address]- Care Team Providers Care Director Of Student Affairs Name Role Phone Rose Mary FISCHER, Sergo Cole Primary Care Physician Encounter [facility] Date(s): 10/11/20 - 11/10/20 [facility] [address], [place] [address] Attending Physician: AdmBroderick enriquez Admitting Physician: [...] (oldterm) 8 01/21/08 Given 1Result Comment: [01/22/2017] [facility] [id number] 2Admin Note: vis given dated 10/24/12 3Admin Note: vis given dated 10/01/11 4Admin Note: vis 5Admin Note: vis 6Admin Note: vis given: 10/27/2006 7Admin Note: vis given : 10/10/2005 8Admin Note: vis given 2007- Medications acetaminophen 500 mg oral tablet 2 tablet, By Mouth, 4 times a day, PRN NEEDED FOR PAIN, # 100 tablet, 1 Refills, Acute, 219:52:00 EDT, [facility], 157.48, cm, 10/11/20 9:39:00 EDT, Height Start Date: 10/26/20 Status: Ordered Acyclovir Maintenance, 11/13/18 15:06:54 EDT Start Date: 11/13/18 Status: Ordered Admelog SoloStar 100 units/mL injectable solution 10 - 25 units, Subcutaneous Infusion, 3 times a day with meals, Inject via sliding scale, Max Dailydose 75u, 90 day supply, E11.9, # 90 mL, 5 Refills, Maintenance, 09/02/19 13:54:00 EDT, [facility], E11.9, 157.48, cm, 04/27/19 15:43:... Start Date: 09/02/19 Status: Ordered Alcohol Pads See Instructions, # 200 each, Refills 9, Tot. Refills 9, Maintenance, To cleans before injections 5x a day., 02/29/20 13:04:00 EST, E11.65, Compound, 157.48, cm, 01/25/20 15:23:00 EDT, Height Start Date: 02/29/20 Stop Date: 12/25/20 Status: Ordered alpha-lipoic acid 300 mg oral tablet 1 tablet = 300 mg, By Mouth, 2 times a day, # 60 tablet, 3 Refills, Maintenance, 02/01/20 15:26:00 EST, [id number], 157.48, cm, 01/25/20 15:23:00 EDT, Height Start Date: 02/01/20 Status: Ordered ammonium lactate 12% topical cream 1 application, Topically, 2 times a day, # 385 Gm, 5 Refills, Maintenance, 06/20/20 10:55:00 EDT, Cream, [facility]/pharmacy #[id number], Partial fill upon patient request if the prescription is for a schedule IIopioid drug., 1 application Topically 2 times a day... Start Date: 06/20/20 Stop Date: 12/17/20 Status: Ordered Artificial Tears preserved solution 2 [...] Refills, Maintenance, 06/21/20 17:44:00 EDT, [facility], 157.48, cm, 05/31/20 9:41:00 EST, Height Start Date: 06/21/20 Status: Ordered atorvastatin 80 mg oral tablet 1 tablet = 80 mg, By Mouth, Daily, replaces Simvastatin, # 90 tablet, 4 Refills, Maintenance, 02/23/20 11:05:00 EST, Tablet, [facility]/pharmacy #[id number], replaces simvastatin, 157.48, cm, 01/25/20 15:23:00 EDT, Height Start Date: 02/23/20 Stop Date: 05/18/21 Status: Ordered BD ultra fine III pen needles [id number] BD ultra fine III pen needles [id number], See Instructions, # 360 each, Refills 3, [...] EDT, Supply Start Date: 11/24/19 Status: Ordered Daily David oral tablet 1 tablet, By Mouth, Daily, INSTR:TAKE IT 2 HOURS SEPARATE FROM ORLISTAT (MILTON), # 30 tablet, 11 Refills, Maintenance, 08/19/20 16:26:00 EDT, [facility], 30, TAKE 1 TABLET BY MOUTH DAILY. [...] 6 Refills, Maintenance, 09/02/20 12:50:00 EDT, Gel, [facility]/pharmacy #[id number], 157.48, cm, 05/31/20 9:41:00 EST, [...] 5 Refills, Maintenance, 01/07/20 14:00:00 EDT, Tablet, [facility]/pharmacy #[id number], 157.48, cm, 12/29/19 15:55:00 EDT, Height Start Date: 01/07/20 Stop Date: 07/05/20 Status: Ordered fentanyl 12 mcg/hr transdermal film, extended release 1 patch, Topically, Every 72 hours, 0 Refills, Maintenance, 02/16/19 14:50:52 EST, Patch, Partial fill upon patient request Start Date: 02/16/19 Status: Ordered fluticasone 50 mcg/inh nasal spray 1 sprays, Nares, Both, Daily, in each nostril, # 16 Gm, 5 Refills, Maintenance, 06/27/20 15:14:00 EDT, [facility]/pharmacy #[id number], 1 sprays Nares, Both Daily,x30 days,Instr:in each nostril, 157.48, cm, 05/31/20 9:41:00 EST, Height Start Date: 06/27/20 Stop Date: 12/24/20 Status: Ordered Freestyle InsuLinx Test Strips See [...] 3, Maintenance, use up to check blood acoorzs6h per day. 90 DAY SUPPLY, E11.9, 02/29/20 [...] E11.9. 90 Day supply, # 75 mL, 2 Refills, Maintenance, 04/07/20 16:52:00 EST, [facility], Partial fill upon patient request if the p... Start Date: 04/07/20 Status: Ordered lactase 3000 u oral tablet [...] Refills, Maintenance, 09/20/20 15:10:00 EDT, [facility], NEEDS 30 ML FOR [...] Daily, # 6 each, 0 Refills, Maintenance, 08/26/20 20:44:00 EDT, Film, [facility]/pharmacy #[id number], Partial fill upon patient request if the prescription is for a schedule II opioid drug., 1 patch Topically Daily, 157.48, cm, 05/31/20 9:41:0... Start Date: 08/26/20 Status: Ordered losartan 50 mg oral tablet 1 tablet, By Mouth, Daily, # 30 tablet, 5 Refills, Maintenance, 06/20/20 9:32:00 EDT, [facility], 157.48, cm, 05/31/20 9:41:00 EST, Height Start Date: 06/20/20 Status: Ordered mirtazapine 15 mg oral tablet TAKE 1 TABLET BY MOUTH EVERY DAY IN THE EVENING Start Date: 10/14/18 Status: Ordered oxyCODONE 5 mg oral tablet 5 mg, 1, tablet, By Mouth, Every 12 hours, PRN, Refills 0, Tot. Refills 0, Maintenance, as needed for pain, 02/16/19 14:51:00 EST, Partial fill upon patient request Start Date: 02/16/19 Status: Ordered Pen [place]arre, 31 G x 8 mm BD Ultra Fine III See Instructions, # 450 each, Refills 2, Tot. Refills 2, Maintenance, 5 X A DAY INJECTIONS, 90 DY SUPPLY, 09/20/20 15:10:00 EDT, EE11.9, Compound, 157.48, cm, 05/31/20 9:41:00 EST, Height Start Date: 09/20/20 Status: Ordered QUEtiapine 25 mg oral tablet TAKE 1 TABLET BY MOUTH TWICE A DAY Start Date: 10/14/18 Status: Ordered SUMAtriptan 25 mg oral tablet 1 tablet = 25 mg, By Mouth, Daily, PRN for migraine headache, for 30 days, may repeat dose after 2 hours up to a maximum of 2, # 12 tablet, 6 Refills, Acute 11/17/20 13:36:00 EDT, 04/21/20 13:36:00 EST, Tablet, [facility]/pharmacy #[id number], 157.48, cm, 03/04/20... Start Date: 04/21/20 Stop Date: 11/17/20 Status: Ordered tiZANidine 4 mg oral capsule 1 capsule, By Mouth, 3 times a day, # 21 capsule, 0 Refills, Maintenance, 10/24/20 8:13:00 EDT, [facility], 157[facility], cm, 10/11/20 9:39:00 EDT, Height Start Date: 10/24/20 Stop Date: 10/31/20 Status: Ordered Topamax 25 mg oral tablet 2 tablet = 50 mg, By Mouth, Daily at bedtime, # 60 tablet, 6 Refills, Maintenance, 04/21/20 13:35:00 EST, Tablet, [facility]/pharmacy #[id number], 157.48, cm, 03/04/20 14:14:00 EST, Height Start Date: 04/21/20 Stop Date: 11/17/20 Status: Ordered Trulicity Pen 1.5 mg/0.5 mL subcutaneous solution 0.5 mL = 1.5 mg, Subcutaneous Injection, Every Saturday, for 90 days, # 7.5 mL, 3 Refills, Hard Stop 12/08/21 15:26:00 EDT, 12/13/20 15:26:00 EDT, Solution, [facility], E11.65, 157.48, cm, 04/27/19 15:43:00 EST, Height Start Date: 12/13/20 Stop Date: 12/08/21 Status: Ordered Trulicity Pen 1.5 mg/0.5 mL subcutaneous solution 0.5 mL = 1.5 mg, Subcutaneous Injection, Every Saturday, E11.9, # 7.5 mL, 3 Refills, Maintenance, 12/08/21 15:26:00 EDT, Solution, [facility], E11.65, 157.48, cm, 03/04/20 14:14:00 EST, Height Start Date: 12/08/21 Stop Date: 12/03/22 Status: Ordered Trulicity Pen 1.5 mg/0.5 mL subcutaneous solution 0.5 mL = 1.5 mg, Subcutaneous Injection, Every Saturday, for 90 days, # 6.5 mL, 5 Refills, Hard Stop 12/13/20 15:26:00 EDT, 06/22/19 15:26:00 EDT, Solution, [facility]/pharmacy #[id number], E11.65, 157.48, cm, 04/27/19 15:43:00 EST, Height Start Date: 06/22/19 Stop Date: 12/13/20 Status: Ordered valACYclovir 500 mg oral tablet See Instructions, TAKE 1 TABLET BY MOUTH TWICE A DAY FOR 3 DAYS NEEDED FOR OUTBREAK, # 6 tablet,Refills 2, Acute, Instructions Replace Required Details, Route to Pharmacy Electronically, [facility], 157.48, cm, 05/31/20 9:41:00 EST, Height Start Date: 06/27/20 Status: Ordered Vascepa 1 g oral capsule 2 capsule = 2 Gm, By Mouth, 2 times a day, # 360 capsule, 5 Refills, Maintenance, 05/03/20 15:59:00EST, Capsule, [facility]/pharmacy #[id number], 157.48, cm, 03/04/20 14:14:00 EST, [...] Active *Briana Garces, Care Coor dinator, ICP [phone](Confirmed) Active Reflux(Confirmed) Active Hepatic steatosis(Confirmed) Active 08239 -EF 60-65%. No wall motion abnormalities, Does [...]
--- OUTSIDE RECORDS SUMMARY | 2024-01-23 14:21 | XMS_ITS | Continuity of Care Document ---
Author Organization [facility] Address [address] [place] [address]- Care Team Providers Care Information Security Director Name Role Phone Rose Mary FISCHER, Sergo Cole Primary Care Physician [phone] Encounter [facility] ACCT R [id number] Date(s): 11/08/23 - 12/08/23 [facility] [address] [place], [place] [phone] Allergies, Adverse Reactions, Alerts Substance Reaction Severity Status morphine ITCH DIARRHEA Active trazodone DEPRESSION Active Ultram nausea, vomit Active Latex powder eats up skin Active cortisone Active Motrin eat lining of stomach Active Naprosyn gi upset Active CeleBREX gi upset Active Neurontin mental status changes Active Vioxx heart problems Active Immunizations Given and Recorded Vaccine Date Status Refusal Reason influenza virus vaccine, inactivated 02/19/23 Give n influenza virus vaccine, inactivated 02/20/21 Give n [...] 8 01/21/08 Given 1Result Comment: [01/22/2017] [facility] [id number] 2Admin Note: vis given dated 10/24/12 3Admin [...] take off at night and when showering., 02/19/23 11:36:00EST, Supply Start Date: 02/19/23 Status: Ordered acetaminophen 500 mg oral tablet 2 tablet, By Mouth, 4 times a day, PRN NEEDED FOR PAIN, # 100 tablet, 1 Refills, Acute, 219:52:00 EDT, [id number], 157.48, cm, 10/11/20 9:39:00 EDT, Height Start Date: 10/26/20 Status: Ordered Adult Pull Up Briefs Adult Pull Up Briefs, See Instructions, # 180 each, Refills 11, Tot. Refills 11, Maintenance, Up to6 per day Size: L Directions: Use as needed for incontinence Dx: R32, R15 Duration: Lifetime, 06/25/23 11:00:00 EDT, Supply Start Date: 06/25/23 Status: Ordered Alcohol Pads See Instructions, # 200 each, Refills 11, Tot. Refills 11, Maintenance, To cleans before injections5 x a day., 10/30/23 13:58:00 EDT, E11.65, Compound, 157, cm, 10/18/23 11:52:00 EDT, Height, 84, kg, 07/24/23 12:52:00 EDT, Dry Weight Start Date: 10/30/23 Stop Date: 10/24/24 Status: Ordered Hovcb-Xxxqec-Ocps 300 mg oral capsule 1 capsule, By Mouth, 2 times a day, NOT COVERED., # 60 capsule, 11 Refills, [id number], 157.48, cm, 01/27/21 9:30:00 EDT, Height Start Date: 01/30/21 Status: Ordered ammonium lactate 12% topical cream 1 application, Topically, 2 times a day, # 385 Gm, 1 Refills, Maintenance, 12/22/22 14:16:00 EDT, Cream, [facility]/pharmacy #[id number], Partial fill upon patient request if the prescription is for a schedule IIopioid drug., 1 application Topically 2 times a day... Start Date: 12/22/22 Stop Date: 02/20/23 Status: Ordered Artificial Tears preserved solution 1 drops, Eyes, Both, 2 times a day, PRN for dry eyes, # 15 mL, 0 Refills, Maintenance, 09/10/23 8:57:00 EDT, Solution, [facility]/pharmacy #[id number], Partial fill upon patient request if the prescription is fora schedule II opioid drug., 1 drops Eyes, Both 2 ti... Start Date: 09/10/23 Status: Ordered atorvastatin 80 mg oral tablet See Instructions, TAKE 1 TABLET BY MOUTH DAILY. INSTR:REPLACES SIMVASTATIN, # 90 tablet, 1 Refills,Maintenance, 11/06/23 7:48:00 EDT, [id number], 157, cm, 10/18/23 11:52:00 EDT, Height, 84, kg,07/24/23 12:52:00 EDT, Dry Weight Start Date: 11/06/23 Status: Ordered atorvastatin 80 mg oral tablet 1 tablet, By Mouth, Daily, INSTR:REPLACES SIMVASTATIN, # 90 tablet, 1 Refills, Maintenance, 05/22/23 12:07:00 EST, [id number], 157, cm, 05/06/23 14:23:00 EST, Height, 88.3, kg, 04/16/23 11:33:00EST, Dry Weight Start Date: 05/22/23 Status: Ordered BD Single Use Swab 70% topical pad See Instructions, TO CLEANS BEFORE INJECTIONS 5 X A DAY., # 150 Unknown, 11 Refills, Maintenance, 08/16/22 10:15:00 EDT, [facility], 30, TO CLEANS BEFORE INJECTIONS 5 X A DAY., 157.5, cm, 08/01/22 9:27:00 EDT, Height Start Date: 08/16/22 Status: Ordered busPIRone 5 mg oral tablet 5 mg, 1, tablet, By Mouth, 3 times a day, # 90 tablet, Refills 4, Tot. Refills 4, Maintenance, 02/07/24 10:46:00 EST, Route to Pharmacy Electronically, [id number], Partial fill upon patient request if the prescription is for a schedule II opio... Start Date: 02/07/24 Stop Date: 07/06/24 Status: Ordered busPIRone 5 mg oral tablet 5 mg, 1, tablet, By Mouth, 3 times a day, for 30 days, # 90 tablet, Refills 4, Tot. Refills 4, HardStop 07/06/24 10:46:00 EDT, 02/07/24 10:46:00 EST, Route to Pharmacy Electronically, [id number], Partial fill upon patient request if the presc... Start Date: 02/07/24 Stop Date: 07/06/24 Status: Ordered busPIRone 5 mg oral tablet 5 mg, 1, tablet, By Mouth, 3 times a day, for 30 days, # 90 tablet, Refills 4, Tot. Refills 4, HardStop 02/07/24 10:46:00 EST, 09/10/23 10:46:00 EDT, Route to Pharmacy Electronically, [id number], Partial fill upon patient request if the presc... Start Date: 09/10/23 Stop Date: 02/07/24 Status: Ordered capsaicin 0.075% topical cream See Instructions, APPLY TO AFFECTED AREA TWICE A DAY, # 57 Gm, 3 Refills, Maintenance, 11/06/23 7:51:00 EDT, [id number], 30, APPLY TO AFFECTED AREA TWICE A DAY, 157, cm, 10/18/23 11:52:00 EDT, Height, 84, kg, 07/24/23 12:52:00 EDT, Dry Weight Start Date: 11/06/23 Status: Ordered CLEAR EYES NATURAL TEARS DROP CLEAR EYES NATURAL TEARS DROP, See Instructions, # 15 mL, 0 Refills, Maintenance, INSTILL 1 DROP INBOTH EYES 2 TIMES A DAY NEEDED FOR DRY EYES, 11/06/23 7:49:00 EDT, 157, cm, 10/18/23 11:52:00 EDT, Height, 84, kg, 07/24/23 12:52:00 EDT, Dry Weight Start Date: 11/06/23 Status: Ordered CPAP Machine See Instructions, # 1 each, Maintenance, CPAP 8 cm H20, use Daily when sleeping, 04/05/23 13:31:00 EST, Supply Start Date: 04/05/23 Status: Ordered CPAP Supplies CPAP Supplies, See Instructions, # 1 each, Refills 0, Tot. Refills 0, Maintenance, Directions: Use daily when sleeping Dx: STORMY G47.33 Duration: Lifetime, 03/20/22 11:01:00 EST, Supply Start Date: 03/20/22 Status: Ordered Daily David oral tablet 1 tablet, By Mouth, Daily, SEPARATE FROM ORLISTAT., # 30 tablet, 5 Refills, Maintenance, 11/06/23 17:25:00 EDT, [facility]/pharmacy #[id number], 1 tablet By Mouth Daily,Instr:SEPARATE FROM ORLISTAT., 157, cm, 10/18/23 11:52:00 EDT, Height, 84, kg, 07/24/23 12:52:0... Start Date: 11/06/23 Status: Ordered diazepam 5 mg oral tablet 5 mg, 1, tablet, By Mouth, 2 times a day, for 30 days, TAKE 1 TABLET BY MOUTH TWICE A DAY., # 60 tablet, Refills 4, Tot. Refills 4, Acute 07/06/24 10:46:00 EDT, 02/07/24 10:46:00 EST, Route to Pharmacy Electronically, [facility]/pharmacy #[id number], Partial fill... Start Date: 02/07/24 Stop Date: 07/06/24 Status: Ordered diazepam 5 mg oral tablet 5 mg, 1, tablet, By Mouth, 2 times a day, for 30 days, TAKE 1 TABLET BY MOUTH TWICE A DAY., # 60 tablet, Refills 4, Tot. Refills 4, Acute 12/03/24 10:46:00 EDT, 07/06/24 10:46:00 EDT, Route to Pharmacy Electronically, [facility]/pharmacy #[id number], Partial fill... Start Date: 07/06/24 Stop Date: 12/03/24 Status: Ordered diazepam 5 mg oral tablet 5 mg, 1, tablet, By Mouth, 2 times a day, for 30 days, TAKE 1 TABLET BY MOUTH TWICE A DAY., # 60 tablet, Refills 4, Tot. Refills 4, Acute 02/07/24 10:46:00 EST, 09/10/23 10:46:00 EDT, Route to Pharmacy Electronically, [facility]/pharmacy #[id number], Partial fill... Start Date: 09/10/23 Stop Date: 02/07/24 Status: Ordered diclofenac 1% topical gel See Instructions, APPLY TOPICALLY 4 TIMES A DAY NOT TO EXCEED 16 GRAMS/DAY/SINGLE JOINT OF LOWER EXTREMITIES, # 100 Gm, 4 Refills, Maintenance, 09/10/23 8:56:00 EDT, [facility]/pharmacy #[id number], 30, APPLY TOPICALLY 4 TIMES A DAY NOT TO EXCEED 16 GRAMS/DAY/SING... Start Date: 09/10/23 Status: Ordered Disposable Underpads Disposable Underpads, See Instructions, # 180 each, Refills 11, Tot. Refills 11, Maintenance, Up to6 per day Directions: Use as needed for incontinence Dx: R32, R15 Duration: Lifetime, 06/25/23 10:59:00 EDT, Supply Start Date: 06/25/23 Status: Ordered docusate sodium 100 mg oral capsule See Instructions, TAKE 1 CAPSULE BY MOUTH TWICE A DAY NEEDED FOR CONSTIPATION, # 60 capsule, 5 Refills, Maintenance, 07/03/22 18:20:00 EDT, [facility]/pharmacy #[id number], Duplicate Rx. Original sent 07/03/22 with routing error. Re- sending to pharmacy, 157.5, cm... Start Date: 07/03/22 Status: Ordered esomeprazole 40 mg oral enteric coated capsule 1 capsule = 40 mg, By Mouth, Daily, # 90 capsule, 3 Refills, Maintenance, 09/25/23 16:33:00 EDT, [facility]/pharmacy #[id number], Partial fill upon patient request if the prescription is for a schedule II opioid drug., 157, cm, 09/25/23 16:26:00 EDT, Height, 84, k... Start Date: 09/25/23 Status: Ordered esomeprazole 40 mg oral enteric coated capsule 1 capsule = 40 mg, By Mouth, Daily, # 90 capsule, 1 Refills, Maintenance, 09/02/23 16:20:00 EDT, [facility]/pharmacy #[id number], Partial fill upon patient request if the prescription is for a schedule II opioid drug., 157, cm, 07/24/23 12:52:00 EDT, Height, 84, k... Start Date: 09/02/23 Status: Ordered fentaNYL 25 mcg/hr transdermal film, extended release APPLY 1 PATCH EVERY 72 HOURS. DO NOT FILL UNTIL 05/01/21. OK TO PARTIAL FILL UPON REQUEST. Start Date: 06/02/21 Status: Ordered Flovent Diskus 50 mcg/inh inhalation powder 1 puffs, Inhalation, 2 times a day, # 60 each, 0 Refills, Maintenance, 11/06/23 17:54:00 EDT, [facility]/pharmacy #[id number], 30, 1 puffs Inhalation 2 times a day, 157, cm, 10/18/23 11:52:00 EDT, Height, 84, kg,07/24/23 12:52:00 EDT, Dry Weight Start Date: 11/06/23 Status: Ordered fluticasone 50 mcg/inh nasal spray See Instructions, SPRAY 1 SPRAY INTO EACH NOSTRIL EVERY DAY, # 16 mL, 5 Refills, Maintenance, 11/06/23 17:54:00 EDT, [facility]/pharmacy #[id number], 30, SPRAY 1 SPRAY INTO EACH NOSTRIL EVERY DAY, 157, cm, 10/18/23 11:52:00 EDT, Height, 84, kg, 07/24/23 12:52:00 E... Start Date: 11/06/23 Status: Ordered FREESTYLE INSULINX TEST STRIPS FREESTYLE INSULINX TEST STRIPS, See Instructions, # 100 Unknown, 13 Refills, Maintenance, USE TO CHECK BLOOD GLUCOSE LEVELS UP TO 4 TIMES DAILY. E11.9, 05/02/23 8:31:00 EST, 157, cm, 04/17/23 7:57:00EST, Height, 88.3, kg, 04/16/23 11:33:00 EST, Dry W... Start Date: 05/02/23 Status: Ordered FREESTYLE LANCETS MISC Miscellaneous FREESTYLE LANCETS MISC Miscellaneous, See Instructions, # 100 Unknown, 5 Refills, Maintenance, USE FOUR TIMES A DAY DIRECTED, 01/09/23 8:49:00 EDT, 157.5, cm, 12/28/22 15:12:00 EDT, Height Start Date: 01/09/23 Status: Ordered Freestyle Lite Lancets See Instructions, # 200 each, Refills 11, Tot. Refills 11, Maintenance, use as directed for Type 2 Diabetes Mellitus to check BGs 4x dialy. E11.9, 07/24/23 13:21:00 EDT, Supply, 157, cm, 07/24/23 12:52:00 EDT, Height, 84, kg, 07/24/23 12:52:00 EDT, Dr... Start Date: 07/24/23 Stop Date: 07/18/24 Status: Ordered Freestyle Lite Monitor See Instructions, # 1 each, Refills 0, Tot. Refills 0, Maintenance, use as directed for Type 2 Diabetes Mellitus to check BGs 4x dialy. E11.9, 06/19/22 17:01:00 EDT, Supply, 157.5, cm, 06/19/22 15:46:00 EDT, Height Start Date: 06/19/22 Status: Ordered Freestyle Lite Test Strips See Instructions, # 200 each, Refills 8, Tot. Refills 8, Maintenance, use as directed for Type 2 Diabetes Mellitus to check BGs 4x dialy. E11.9, 07/24/23 13:22:00 EDT, Supply, 157, cm, 07/24/23 12:52:00 EDT, Height, 84, kg, 07/24/23 12:52:00 EDT, Dry... Start Date: 07/24/23 Stop Date: 04/19/24 Status: Ordered FREESTYLE LITE TEST STRP Strip FREESTYLE LITE TEST STRP Strip, See Instructions, # 150 Unknown, 8 Refills, Maintenance, USE DIRECTED FOR TYPE 2 DIABETES MELLITUS TO CHECK BGS 4X DAILY. E11.9, 07/04/23 14:30:00 EDT, 157, cm, 06/24/23 14:54:00 EDT, Height, 88.3, kg, 04/16/23 11:33... Start Date: 07/04/23 Status: Ordered Gas Relief Extra Strength 125 mg oral tablet, chewable See Instructions, CHEW 1 TABLET BY MOUTH 4 TIMES A DAY FOR 21 DAYS NEEDED FOR GAS, # 48 tablet, 4 Refills, Maintenance, 11/06/23 17:54:00 EDT, [facility]/pharmacy #[id number], 157, cm, 10/18/23 11:52:00 EDT, Height, 84, kg, 07/24/23 12:52:00 EDT, Dry Weight Start Date: 11/06/23 Status: Ordered Gloves Gloves, See Instructions, # 1 each, Refills 11, Tot. Refills 11, Maintenance, 1 box per month Size:Large Use as needed for incontinence Dx: R15, R32 Duration: Lifetime, 06/25/23 11:00:00 EDT, Supply Start Date: 06/25/23 Status: Ordered hospital bed mattress replacement hospital [...] Pen 100 units/mL subcutaneous injection See Instructions, max daily dose 42 units. E11.9, # 30 mL, 6 Refills, Maintenance, 07/24/23 13:20:00 EDT, [facility], Partial fill upon patient request if the prescription is for a schedule II opioid drug., 157, cm, 07/24/23 12:52:00... Start Date: 07/24/23 Status: Ordered hydrOXYzine hydrochloride 25 mg oral tablet 1 tablet = 25 mg, By Mouth, 2 times a day, as needed for anxiety, # 60 tablet, 4 Refills, Soft Stop, 02/07/24 10:47:00 EST, Tablet, [facility]/pharmacy #[id number], Partial fill upon patient request if the prescription is for a schedule II opioid drug., 157, cm, 0... Start Date: 02/07/24 Stop Date: 07/06/24 Status: Ordered hydrOXYzine hydrochloride 25 mg oral tablet 1 tablet = 25 mg, By Mouth, 2 times a day, for 30 days, as needed for anxiety, # 60 tablet, 4 Refills, Hard Stop 02/07/24 10:47:00 EST, 09/10/23 10:47:00 EDT, Tablet, [facility]/pharmacy #[id number], Partial fillupon patient request if the prescription is for a s... Start Date: 09/10/23 Stop Date: 02/07/24 Status: Ordered lactase 3000 u oral tablet 3 tablet, By Mouth, 3 times a day with meals, X30 DAYS., # 120 tablet, 3 Refills, Maintenance, 11/06/23 7:51:00 EDT, [facility]/pharmacy #[id number], 157, cm, 10/18/23 11:52:00 EDT, Height, 84, kg, 07/24/23 12:52:00 EDT, Dry Weight Start Date: 11/06/23 Status: Ordered Lantus Solostar Pen 100 units/mL subcutaneous solution See Instructions, Take 45 units in the AM and 45 units daily at bedtime. E11.9., # 30 mL, 9 Refills, Maintenance, 07/24/23 13:18:00 EDT, [facility], Partial fill upon patient requestif the prescription is for a schedule II opioid lucas... Start Date: 07/24/23 Status: Ordered levothyroxine 0.1 mg oral tablet 1 tablet = 100 mcg, By Mouth, Daily, # 30 tablet, 11 Refills, Maintenance, 07/25/23 8:52:00 EDT, [facility]/pharmacy #[id number], stop the 112mcg dose, 157, cm, 07/24/23 12:52:00 EDT, Height, 84, kg, 07/24/23 12:52:00 EDT, Dry Weight Start Date: 07/25/23 Stop Date: 07/19/24 Status: Ordered lidocaine 5% topical ointment See Instructions, APPLY TO AFFECTED AREA 3 TIMES A DAY, # 35.44 Gm, 3 Refills, Maintenance, 11/06/23 7:51:00 EDT, [facility]/pharmacy #[id number], 30, Duplicate Rx. Original sent 07/03/22 with routing error. Re-sending to pharmacy, APPLY TO AFFECTED AREA 3 TIMES A D... Start Date: 11/06/23 Status: Ordered lidocaine 5% topical ointment See Instructions, APPLY TO AFFECTED AREA 3 TIMES A DAY, # 35.44 Gm, 11 Refills, Maintenance, 02/28/22 8:51:00 EST, [id number], 30, APPLY TO AFFECTED AREA 3 TIMES A DAY, 157.5, cm, 02/21/22 14:36:00 EST, Height Start Date: 02/28/22 Status: Ordered losartan 50 mg oral tablet See Instructions, TAKE 1 TABLET BY MOUTH EVERY DAY, # 90 tablet, 1 Refills, Maintenance, 10/17/23 13:55:00 EDT, [id number], 157, cm, 10/12/23 11:14:00 EDT, Height, 84, kg, 07/24/23 12:52:00 EDT, Dry Weight Start Date: 10/17/23 Status: Ordered Lyrica 25 mg oral capsule See Instructions, 1 capsule By Mouth 1 time daily at bedtime. E11.9, # 30 each, 2 Refills, Maintenance, 11/05/23 18:01:00 EDT, Capsule, [facility]/pharmacy #[id number], Partial fill upon patient request if the prescription is for a schedule II opioid drug., 157, c... Start Date: 11/05/23 Status: Ordered mirtazapine 15 mg oral tablet 1 tablet = 15 mg, By Mouth, Daily at bedtime, # 30 tablet, 4 Refills, Maintenance, 02/07/24 10:47:00 EST, Tablet, [facility]/pharmacy #[id number], Partial fill upon patient request if the prescription is for a schedule II opioid drug., 157, cm, 10/18/23 11:52:00 E... Start Date: 02/07/24 Stop Date: 07/06/24 Status: Ordered mirtazapine 15 mg oral tablet 1 tablet = 15 mg, By Mouth, Daily at bedtime, for 30 days, # 30 tablet, 4 Refills, Hard Stop 02/07/24 10:47:00 EST, 09/10/23 10:47:00 EDT, Tablet, [facility]/pharmacy #[id number], Partial fill upon patient request if the prescription is for a schedule II opioid dr... Start Date: 09/10/23 Stop Date: 02/07/24 Status: Ordered Murine Ear Drops 6.5% solution See Instructions, INSTILL 5 DROPS INTO BOTH EARS TWICE DAILY FOR 7 DAYS, # 15 mL, 0 Refills, Maintenance, 09/30/23 10:01:00 EDT, [id number], 30, INSTILL 5 DROPS INTO BOTH EARS TWICE DAILY FOR 7 DAYS, 157, cm, 09/25/23 16:26:00 EDT, Height, 84, kg... Start Date: 09/30/23 Status: Ordered Narcan 4 mg/0.1 mL nasal spray = 4 mg, Nares, Both, Once, # 2 each, 2 Refills, Soft Stop, 02/22/23 14:30:00 EST, [facility]/pharmacy #[id number], Partial fill upon patient request if the prescription is for a schedule II opioid drug., 157.5, cm, 02/19/23 9:20:00 EST, Height Start Date: 02/22/23 Status: Ordered [place]-3 Fish Oil 1000 mg oral capsule 1 capsule = 1,000 mg, By Mouth, Daily, # 90 capsule, 1 Refills, Maintenance, 08/01/22 10:17:00 EDT,[facility]/pharmacy #[id number], Partial fill upon [...] Refills, Maintenance, 06/14/22 16:40:00 EDT, EC Tablet, [facility]/pharmacy #[id number], Partial fill upon patient request if the prescription is for a schedule II opioid drug., 157.5,... Start Date: 06/14/22 Status: Ordered ondansetron 4 mg oral tablet 1 tablet, By Mouth, Every 8 hours, PRN NEEDED FOR NAUSEA AND VOMITING FOR, # 30 tablet, 2 Refills, Maintenance, 07/03/23 14:40:00 EDT, [id number], 157, cm, 06/24/23 14:54:00 EDT, Height, 88.3, kg, 04/16/23 11:33:00 EST, Dry Weight Start Date: 07/03/23 Stop Date: 07/13/23 Status: Ordered oxyCODONE 10 mg oral tablet TAKE 1/2 TAB EVERY 12 HOURS NEEDED FOR SEVERE NECK/LOW BACK PAIN. DO NOT FILL UNTIL 05/01/21 Start Date: 06/02/21 Status: Ordered Ozempic 2 mg/3 mL (0.25 mg or 0.5 mg dose) subcutaneous solution = 0.25 mg, Subcutaneous Infusion, Every week, start with 0.25mg weekly, and if no side effect, go up to 0.5mg weekly in 1 month, # 3 mL, 11 Refills, Maintenance, 08/23/23 11:17:00 EDT, [facility], Partial fill upon patient request if... Start Date: 08/23/23 Status: Ordered Pen [place], 31 G x 8 mm BD Ultra Fine III See Instructions, # 450 each, Refills 3, Tot. Refills 3, Maintenance, e11.9, use for insulin injections up to 5 times daily, 90 day supply, 06/10/23 11:13:00 EDT, Supply, 157, cm, 05/06/23 14:23:00 EST, Height, 88.3, kg, 04/16/23 11:33:00 EST, Dry Weight Start Date: 06/10/23 Status: Ordered QUEtiapine 25 mg oral tablet 25 mg, 1, tablet, By Mouth, 2 times a day, # 60 tablet, Refills 4, Tot. Refills 4, Maintenance, 02/07/24 10:47:00 EST, Route to Pharmacy Electronically, [facility]/pharmacy #[id number], Partial fill upon patient request if the prescription is for a schedule II opi... Start Date: 02/07/24 Stop Date: 07/06/24 Status: Ordered QUEtiapine 25 mg oral tablet 25 mg, 1, tablet, By Mouth, 2 times a day, for 30 days, # 60 tablet, Refills 4, Tot. Refills 4, Hard Stop 02/07/24 10:47:00 EST, 09/10/23 10:47:00 EDT, Route to Pharmacy Electronically, [facility]/pharmacy #[id number], Partial fill upon patient request if the pres... Start Date: 09/10/23 Stop Date: 02/07/24 Status: Ordered academic hospitalist grabber tool academic hospitalist grabber tool, See Instructions, # 1 each, Refills 0, Tot. Refills 0, Maintenance, please dispense one academic hospitalist grabber tool, ICD 10 M54.6, length of use 1 month, 04/12/22 10:13:00 EST, Supply Start Date: 04/12/22 Status: Ordered replacement hospital bed with mattress replacement hospital bed with mattress, See Instructions, # 1 each, Refills 0, Tot. Refills 0, Maintenance, please dispense 1 replacement hospital bed wt mattress, DX G89.4, length of use lifetime, 06/20/22 14:20:00 EDT, Supply Start Date: 06/20/22 Status: Ordered topiramate 25 mg oral tablet 3 tablet, By Mouth, Daily at bedtime, # 90 tablet, 10 Refills, Maintenance, 10/08/23 15:43:00 EDT, [facility], 157, cm, 09/25/23 16:26:00 EDT, Height, 84, kg, 07/24/23 12:52:00 EDT, Dry Weight Start Date: 10/08/23 Status: Ordered valACYclovir 500 mg oral tablet See Instructions, TAKE 1 TABLET BY MOUTH 2 TIMES A DAY,X3 DAYS, NEEDED FOR OUTBREAKS, # 6 tablet, Refills 0, Maintenance, 11/06/23 7:49:00 EDT, Instructions Replace Required Details, Route to Pharmacy Electronically, [id number], 157, cm, 10/17... Start Date: 11/06/23 Status: Ordered valACYclovir 500 mg oral tablet 1, tablet, By Mouth, 2 times a day, PRN, # 6 tablet, Refills 0, Maintenance, NEEDED FOR OUTBREAKS, 10/09/23 10:57:00 EDT, Route to Pharmacy Electronically, [id number], 157, cm, 09/25/23 16:26:00 EDT, Height, 84, kg, 07/24/23 12:52:00 EDT, Dry... Start Date: 10/09/23 Status: Ordered Vascepa 1 g oral capsule 2 capsule = 2 Gm, By Mouth, 2 times a day, # 360 capsule, 5 Refills, Maintenance, 05/03/20 15:59:00EST, Capsule, [id number], 157.48, cm, 03/04/20 14:14:00 EST, Height Start Date: 05/03/20 Status: Ordered Ventolin HFA 108 mcg/inh inhalation aerosol with adapter 1 puffs, Inhalation, 4 times a day, PRN NEEDED FOR WHEEZING, # 18 each, 3 Refills, Maintenance, 11/06/23 7:51:00 EDT, [id number], 157, cm, 10/18/23 11:52:00 EDT, Height, 84, kg, 07/24/23 12:52:00 EDT, Dry Weight Start Date: 11/06/23 Status: Ordered Problem List Condition Confirmation Course [...] Active Hyperlipidemia Confirmed Active Hypertension Confirmed Active Hypothyroidism Confirmed Active Hypothyroidism Confirmed Active Stool incontinence Confirmed Active 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 Loose stools Confirmed Active Back pain NOS 3 Confirmed Active Migraine Confirmed 01/05/11 Active 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 Multinodular goiter Confirmed Active Neuropathy Confirmed Active Numbness of left foot Confirmed Active Obese class I Confirmed Active Obesity Confirmed Active Obesity monitoring Confirmed Active STORMY (obstructive sleep apnea) 4 Confirmed Active Osteoarthritis, L knee mild tricompartmental Confirmed Active PAIN IN JOINT INVOLVING MULTIPLE SITES Confirmed Active 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 *Briana Garces, Track Laying Machine Operator, ICP [phone] Confirmed Active PTSD (post-traumatic stress disorder) Confirmed Active Reflux Confirmed Active Hepatic steatosis Confirmed Active Tubular [...] Team Personnel Name: Sergo Bazzi MD Position: [facility] Physician - Primary Care Member Role: PCP Address: Address: [address] [place] [address] Name: Lizbeth Collins [place] Position: [facility] Office Staff Member Role: Primary Care Nurse Care Team Related Persons Name: LB HENLEY Address: home [address] [address] Name: LB HENLEY Address: home [address] [place] [address] Name: MILENA CUBA Address: home [address] [place] [address]
--- OUTSIDE RECORDS SUMMARY | 2024-01-23 14:21 | XMS_ITS | Continuity of Care Document ---
Author Organization [facility] Address [address], [address], [address] [place] [address]- Care Team Providers Care Closing Coordinator Name Role Phone Sergo Bazzi MD Primary Care Physician [phone] Encounter [facility] Date(s): 11/19/23 - 11/26/23 [facility] [address] [place], [place] [address] Attending Physician: Not on Staff, Attending MD Allergies, Adverse Reactions, Alerts Substance Reaction Severity Status morphine ITCH DIARRHEA Active cortisone Active Ultram nausea, vomit Active Latex powder eats up skin Active trazodone DEPRESSION Active Motrin eat lining of stomach Active [...] (oldterm) 8 01/21/08 Given 1Result Comment: [01/22/2017] [facility] [id number] 2Admin Note: vis given dated 10/24/12 3Admin [...] 100 tablet, 1 Refills, Acute, 219:52:00 EDT, [id number], 157.48, cm, 10/11/20 9:39:00 EDT, Height Start [...] Dry Weight Start Date: 10/30/23 Stop Date: 7/26/25 Status: Ordered Yttfx-Eehehe-Toii 300 mg oral capsule 1 capsule, By Mouth, 2 times a day, NOT COVERED., # 60 capsule, 11 Refills, [id number], 157.48, cm, 01/27/21 9:30:00 EDT, Height Start Date: 01/30/21 Status: Ordered ammonium lactate 12% topical cream 1 application, Topically, 2 times a day, # 385 Gm, 1 Refills, Maintenance, 12/22/22 14:16:00 EDT, Cream, [facility]/pharmacy #[id number], Partial fill upon patient request if the prescription is for a schedule IIopioid drug., 1 application Topically 2 times a day... Start Date: 12/22/22 Stop Date: 02/20/23 Status: Ordered Artificial Tears preserved solution 1 drops, Eyes, Both, 2 times a day, PRN for dry eyes, # 15 mL, 0 Refills, Maintenance, 09/10/23 8:57:00 EDT, Solution, [facility]/pharmacy #[id number], Partial fill upon patient request if the prescription is fora schedule II opioid drug., 1 drops Eyes, Both 2 ti... Start Date: 09/10/23 Status: Ordered atorvastatin 80 mg oral tablet See Instructions, TAKE 1 TABLET BY MOUTH DAILY. INSTR:REPLACES SIMVASTATIN, # 90 tablet, 1 Refills,Maintenance, 11/06/23 7:48:00 EDT, [id number], 157, cm, 10/18/23 11:52:00 EDT, Height, 84, kg,07/24/23 12:52:00 EDT, Dry Weight Start Date: 11/06/23 Status: Ordered atorvastatin 80 mg oral tablet 1 tablet, By Mouth, Daily, INSTR:REPLACES SIMVASTATIN, # 90 tablet, 1 Refills, Maintenance, 05/22/23 12:07:00 EST, [id number], 157, cm, 05/06/23 14:23:00 EST, Height, 88.3, kg, 04/16/23 11:33:00EST, Dry Weight Start Date: 05/22/23 Status: Ordered BD Single Use Swab 70% topical pad See Instructions, TO CLEANS BEFORE INJECTIONS 5 X A DAY., # 150 Unknown, 11 Refills, Maintenance, 08/16/22 10:15:00 EDT, [facility], 30, TO CLEANS BEFORE [...] tablet, 5 Refills, Maintenance, 11/06/23 17:25:00 EDT, [facility]/pharmacy #[id number], 1 tablet By Mouth Daily,Instr:SEPARATE FROM [...] 02/07/24 10:46:00 EST, Route to Pharmacy Electronically, [facility]/pharmacy #[id number], Partial fill... Start Date: 02/07/24 Stop Date: 07/06/24 Status: Ordered diazepam 5 mg oral tablet 5 mg, 1, tablet, By Mouth, 2 times a day, for 30 days, TAKE 1 TABLET BY MOUTH TWICE A DAY., # 60 tablet, Refills 4, Tot. Refills 4, Acute 12/03/24 10:46:00 EDT, 07/06/24 10:46:00 EDT, Route to Pharmacy Electronically, [facility]/pharmacy #[id number], Partial fill... Start Date: 07/06/24 Stop Date: 12/03/24 Status: Ordered diazepam 5 mg oral tablet 5 mg, 1, tablet, By Mouth, 2 times a day, for 30 days, TAKE 1 TABLET BY MOUTH TWICE A DAY., # 60 tablet, Refills 4, Tot. Refills 4, Acute 02/07/24 10:46:00 EST, 09/10/23 10:46:00 EDT, [id number]... Start Date: 09/10/23 Stop Date: 02/07/24 Status: Ordered diclofenac 1% topical gel See Instructions, APPLY TOPICALLY 4 TIMES A DAY NOT TO EXCEED 16 GRAMS/DAY/SINGLE JOINT OF LOWER EXTREMITIES, # 100 Gm, 4 Refills, Maintenance, 09/10/23 8:56:00 EDT, [facility]/pharmacy #[id number], 30, APPLY TOPICALLY 4 TIMES A [...] capsule, 5 Refills, Maintenance, 07/03/22 18:20:00 EDT, [facility]/pharmacy #[id number], Duplicate Rx. Original sent 07/03/22 with routing error. Re- sending to pharmacy, 157.5, cm... Start Date: 07/03/22 Status: Ordered esomeprazole 40 mg oral enteric coated capsule 1 capsule = 40 mg, By Mouth, Daily, # 90 capsule, 3 Refills, Maintenance, 09/25/23 16:33:00 EDT, [facility]/pharmacy #[id number], Partial fill upon patient request if the prescription is for a schedule II opioid drug., 157, cm, 09/25/23 16:26:00 EDT, Height, 84, k... Start Date: 09/25/23 Status: Ordered esomeprazole 40 mg oral enteric coated capsule 1 capsule = 40 mg, By Mouth, Daily, # 90 capsule, 1 Refills, Maintenance, 09/02/23 16:20:00 EDT, [facility]/pharmacy #[id number], Partial fill upon patient [...] each, 0 Refills, Maintenance, 11/06/23 17:54:00 EDT, [facility]/pharmacy #[id number], 30, 1 puffs Inhalation 2 times a day, 157, cm, 10/18/23 11:52:00 EDT, Height, 84, kg,07/24/23 12:52:00 EDT, Dry Weight Start Date: 11/06/23 Status: Ordered fluticasone 50 mcg/inh nasal spray See Instructions, SPRAY 1 SPRAY INTO EACH NOSTRIL EVERY DAY, # 16 mL, 5 Refills, Maintenance, 11/06/23 17:54:00 EDT, [facility]/pharmacy #[id number], 30, SPRAY 1 SPRAY INTO EACH [...] tablet, 4 Refills, Maintenance, 11/06/23 17:54:00 EDT, [facility]/pharmacy #[id number], 157, cm, 10/18/23 11:52:00 EDT, Height, [...] mL, 6 Refills, Maintenance, 07/24/23 13:20:00 EDT, [facility], Partial fill upon patient request if the prescription is for a schedule II opioid drug., 157, cm, 07/24/23 12:52:00... Start Date: 07/24/23 Status: Ordered hydrOXYzine hydrochloride 25 mg oral tablet 1 tablet = 25 mg, By Mouth, 2 times a day, as needed for anxiety, # 60 tablet, 4 Refills, Soft Stop, 02/07/24 10:47:00 EST, Tablet, [facility]/pharmacy #[id number], Partial fill upon patient [...] 02/07/24 10:47:00 EST, 09/10/23 10:47:00 EDT, Tablet, [facility]/pharmacy #[id number], Partial fillupon patient request if the prescription is for a s... Start Date: 09/10/23 Stop Date: 02/07/24 Status: Ordered lactase 3000 u oral tablet 3 tablet, By Mouth, 3 times a day with meals, X30 DAYS., # 120 tablet, 3 Refills, Maintenance, 11/06/23 7:51:00 EDT, [facility]/pharmacy #[id number], 157, cm, 10/18/23 11:52:00 EDT, Height, 84, kg, 07/24/23 12:52:00 EDT, Dry Weight Start Date: 11/06/23 Status: Ordered Lantus Solostar Pen 100 units/mL subcutaneous solution See Instructions, Take 45 units in the AM and 45 units daily at bedtime. E11.9., # 30 mL, 9 Refills, Maintenance, 07/24/23 13:18:00 EDT, [facility], Partial fill upon patient requestif the prescription is for a schedule II opioid lucas... Start Date: 07/24/23 Status: Ordered levothyroxine 0.1 mg oral tablet 1 tablet = 100 mcg, By Mouth, Daily, # 30 tablet, 11 Refills, Maintenance, 07/25/23 8:52:00 EDT, [facility]/pharmacy #[id number], stop the 112mcg dose, 157, cm, 07/24/23 12:52:00 EDT, Height, 84, kg, 07/24/23 12:52:00 EDT, Dry Weight Start Date: 07/25/23 Stop Date: 07/19/24 Status: Ordered lidocaine 5% topical ointment See Instructions, APPLY TO AFFECTED AREA 3 TIMES A DAY, # 35.44 Gm, 3 Refills, Maintenance, 11/06/23 7:51:00 EDT, [facility]/pharmacy #[id number], 30, Duplicate Rx. Original sent 07/03/22 with routing error. Re-sending to pharmacy, APPLY TO AFFECTED AREA 3 TIMES A D... Start Date: 11/06/23 Status: Ordered lidocaine 5% topical ointment See Instructions, APPLY TO AFFECTED AREA 3 TIMES A DAY, # 35.44 Gm, 11 Refills, Maintenance, 02/28/22 8:51:00 EST, [facility]/pharmacy #[id number], 30, APPLY TO AFFECTED AREA 3 TIMES A DAY, 157.5, cm, 02/21/22 14:36:00 EST, Height Start Date: 02/28/22 Status: Ordered losartan 50 mg oral tablet See Instructions, TAKE 1 TABLET BY MOUTH EVERY DAY, # 90 tablet, 1 Refills, Maintenance, 10/17/23 13:55:00 EDT, [facility]/pharmacy #[id number], 157, cm, 10/12/23 11:14:00 EDT, Height, 84, kg, 07/24/23 12:52:00 EDT, Dry Weight Start Date: 10/17/23 Status: Ordered Lyrica 25 mg oral capsule See Instructions, 1 capsule By Mouth 1 time daily at bedtime. E11.9, # 30 each, 2 Refills, Maintenance, 11/05/23 18:01:00 EDT, Capsule, [facility]/pharmacy #[id number], Partial fill upon patient request if the prescription is for a schedule II opioid drug., 157, c... Start Date: 11/05/23 Status: Ordered mirtazapine 15 mg oral tablet 1 tablet = 15 mg, By Mouth, Daily at bedtime, # 30 tablet, 4 Refills, Maintenance, 02/07/24 10:47:00 EST, Tablet, [facility]/pharmacy #[id number], Partial fill upon patient request if the prescription is for a schedule II opioid drug., 157, cm, 10/18/23 11:52:00 E... Start Date: 02/07/24 Stop Date: 07/06/24 Status: Ordered mirtazapine 15 mg oral tablet 1 tablet = 15 mg, By Mouth, Daily at bedtime, for 30 days, # 30 tablet, 4 Refills, Hard Stop 02/07/24 10:47:00 EST, 09/10/23 10:47:00 EDT, Tablet, [facility]/pharmacy #[id number], Partial fill upon patient request if the prescription is for a schedule II opioid dr... Start Date: 09/10/23 Stop Date: 02/07/24 Status: Ordered Murine Ear Drops 6.5% solution See Instructions, INSTILL 5 DROPS INTO BOTH EARS TWICE DAILY FOR 7 DAYS, # 15 mL, 0 Refills, Maintenance, 09/30/23 10:01:00 EDT, [id number], 30, INSTILL 5 DROPS INTO BOTH EARS TWICE DAILY FOR 7 DAYS, 157, cm, 09/25/23 16:26:00 EDT, Height, 84, kg... Start Date: 09/30/23 Status: Ordered Narcan 4 mg/0.1 mL nasal spray = 4 mg, Nares, Both, Once, # 2 each, 2 Refills, Soft Stop, 02/22/23 14:30:00 EST, [facility]/pharmacy #[id number], Partial fill upon patient request if the prescription is for a schedule II opioid drug., 157.5, cm, 02/19/23 9:20:00 EST, Height Start Date: 02/22/23 Status: Ordered [employer] Fish Oil 1000 mg oral capsule 1 capsule = 1,000 mg, By Mouth, Daily, # 90 capsule, 1 Refills, Maintenance, 08/01/22 10:17:00 EDT,[facility]/pharmacy #[id number], Partial fill upon patient request if the prescription is for a schedule II opioid drug., 157.5, cm, 08/01/22 9:27:00 EDT, Height Start Date: 08/01/22 Status: Ordered omeprazole 20 mg oral delayed release tablet 1 tablet = 20 mg, By Mouth, 2 times a day, do not crush or chew, # 60 tablet, 2 Refills, Maintenance, 06/14/22 16:40:00 EDT, EC Tablet, [facility]/pharmacy #[id number], Partial fill upon patient request if the prescription is for a schedule II opioid drug., 157.5,... Start Date: 06/14/22 Status: Ordered ondansetron 4 mg oral tablet 1 tablet, By Mouth, Every 8 hours, PRN NEEDED FOR NAUSEA AND VOMITING FOR, # 30 tablet, 2 Refills, Maintenance, 07/03/23 14:40:00 EDT, [facility], 157, cm, 06/24/23 14:54:00 EDT, Height, 88.3, [...] mL, 11 Refills, Maintenance, 08/23/23 11:17:00 EDT, [facility], Partial fill upon patient request if... Start Date: 08/23/23 Status: Ordered Pen [place], 31 G x 8 mm BD Ultra [...] 02/07/24 10:47:00 EST, Route to Pharmacy Electronically, [facility]/pharmacy #[id number], Partial fill upon patient request if the prescription is for a schedule II opi... Start Date: 02/07/24 Stop Date: 07/06/24 Status: Ordered QUEtiapine 25 mg oral tablet 25 mg, 1, tablet, By Mouth, 2 times a day, for 30 days, # 60 tablet, Refills 4, Tot. Refills 4, Hard Stop 02/07/24 10:47:00 EST, 09/10/23 10:47:00 EDT, Route to Pharmacy Electronically, [facility]/pharmacy #[id number], Partial fill upon patient request if the pres... Start Date: 09/10/23 Stop Date: 02/07/24 Status: Ordered overlock collar setter grabber tool overlock collar setter grabber tool, See Instructions, # 1 each, Refills 0, Tot. Refills 0, Maintenance, please dispense one overlock collar setter grabber tool, ICD 10 M54.6, length of [...] tablet, 10 Refills, Maintenance, 10/08/23 15:43:00 EDT, [facility], 157, cm, 09/25/23 16:26:00 EDT, Height, 84, kg, 07/24/23 12:52:00 EDT, Dry Weight Start Date: 10/08/23 Status: Ordered valACYclovir 500 mg oral tablet See Instructions, TAKE 1 TABLET BY MOUTH 2 TIMES A DAY,X3 DAYS, NEEDED FOR OUTBREAKS, # 6 tablet, Refills 0, Maintenance, 11/06/23 7:49:00 EDT, Instructions Replace Required Details, Route to Pharmacy Electronically, [id number], 157, cm, 10/17... 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 *Briana Garces, Postie, ICP [phone] Confirmed Active PTSD (post-traumatic stress disorder) Confirmed [...] Name: Rose Mary FISCHER, Sergo Cole Position: [facility] Physician - Primary Care Member Role: PCP Address: Address: [address] [place] [address]- Name: Lizbeth Collins [place] Position: [facility] Staff Member Role: Primary Care Nurse Care Team Related Persons Name: LB HENLEY Address: home [address] [address] Name: LB HENLEY Address: home [address] [place] [address] Name: MILENA CUBA Address: home [address] [place] [address]
--- OUTSIDE RECORDS SUMMARY | 2024-01-23 14:21 | XMS_ITS | Continuity of Care Document ---
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 Name Role Phone Rose Mary FISCHER, Sergo Cole Primary Care Physician [phone] Encounter [facility] Date(s): 08/30/20 - 09/29/20 [facility] [address] [place] [address]- Encounter Diagnosis Diabetes mellitus type 2(Discharge Diagnosis) - 08/30/20 Hepatic steatosis(Discharge Diagnosis) - 08/30/20 Obesity(Discharge Diagnosis) - 08/30/20 Thyroid nodules - Multinodular goiter(Discharge Diagnosis) - 08/30/20 Allergies, Adverse Reactions, Alerts Substance Reaction Severity [...] (oldterm) 8 01/21/08 Given 1Result Comment: [01/22/2017] [facility] [id number] 2Admin Note: vis given dated 10/24/12 3Admin Note: vis given dated 10/01/11 4Admin Note: vis 5Admin Note: vis 6Admin Note: vis given: 10/27/2006 7Admin Note: vis given : 10/10/2005 8Admin Note: vis given 2007- Medications acetaminophen 500 mg oral tablet 2 tablet = 1,000 mg, By Mouth, 4 times a day, PRN Pain , Moderate, for 30 days, # 100 tablet, 1 Refills, Acute 10/29/20 15:45:00 EDT, 08/30/20 15:45:00 EDT, Tablet, [facility]/pharmacy #[id number], Partial fill upon patient request if the prescription is for a jacinda... Start Date: 08/30/20 Stop Date: 10/29/20 Status: Ordered Acyclovir Maintenance, 11/13/18 15:06:54 EDT Start Date: 11/13/18 Status: Ordered Admelog SoloStar 100 units/mL injectable solution 10 - 25 units, Subcutaneous Infusion, 3 times a day with meals, Inject via sliding scale, Max Dailydose 75u, 90 day supply, E11.9, # 90 mL, 5 Refills, Maintenance, 09/02/19 13:54:00 EDT, [facility], E11.9, 157.48, cm, 04/27/19 15:43:... [...] tablet, 3 Refills, Maintenance, 02/01/20 15:26:00 EST, [facility]/pharmacy #[id number], 157.48, cm, 01/25/20 15:23:00 EDT, Height Start Date: 02/01/20 Status: Ordered ammonium lactate 12% topical cream 1 application, Topically, 2 times a day, # 385 Gm, 5 Refills, Maintenance, 06/20/20 10:55:00 EDT, Cream, [facility]/pharmacy #[id number], Partial fill upon patient request [...] tablet, 11 Refills, Maintenance, 06/21/20 17:44:00 EDT, [facility] 36452, 157.48, cm, 05/31/20 9:41:00 EST, Height Start Date: 06/21/20 Status: Ordered atorvastatin 80 mg oral tablet 1 tablet = 80 mg, By Mouth, Daily, replaces Simvastatin, # 90 tablet, 4 Refills, Maintenance, 02/23/20 11:05:00 EST, Tablet, [facility]/pharmacy #[id number], replaces simvastatin, 157.48, cm, 01/25/20 15:23:00 EDT, Height Start Date: 02/23/20 Stop Date: 05/18/21 Status: Ordered BD ultra fine III pen needles [id number] BD ultra fine III pen needles [id number], See Instructions, # 360 each, Refills 3, [...] Refills, Maintenance, 08/19/20 16:26:00 EDT, [facility], 30, TAKE 1 TABLET BY MOUTH DAILY. [...] 6 Refills, Maintenance, 09/02/20 12:50:00 EDT, Gel, [id number], 157.48, cm, 05/31/20 9:41:00 EST, Height [...] 5 Refills, Maintenance, 01/07/20 14:00:00 EDT, Tablet, [id number], 157.48, cm, 12/29/19 15:55:00 EDT, Height [...] Gm, 5 Refills, Maintenance, 06/27/20 15:14:00 EDT, [facility]/pharmacy #[id number], 1 sprays Nares, Both Daily,x30 days,Instr:in [...] 3, Maintenance, use up to check blood [id number] per day. 90 DAY SUPPLY, E11.9, 02/29/20 [...] mL, 2 Refills, Maintenance, 04/07/20 16:52:00 EST, [facility], Partial fill upon patient request [...] mL, 9 Refills, Maintenance, 09/20/20 15:10:00 EDT, [facility], NEEDS 30 ML FOR 30 [...] 0 Refills, Maintenance, 08/26/20 20:44:00 EDT, Film, [facility]/pharmacy #[id number], Partial fill upon patient request if the prescription is for a schedule II opioid drug., 1 patch Topically Daily, 157.48, cm, 05/31/20 9:41:0... Start Date: 08/26/20 Status: Ordered lidocaine 5% topical ointment See Instructions, APPLY TO AFFECTED AREA 3 TIMES A DAY, # 35.44 Gm, 11 Refills, Physician Stop 09/30/20 12:50:00 EDT, 09/02/20 12:50:00 EDT, [facility]/pharmacy #[id number], 30, APPLY TO AFFECTED AREA 3 TIMES A DAY, 157.48, cm, 05/31/20 9:41:00 EST, Height Start Date: 09/02/20 Stop Date: 09/30/20 Status: Ordered losartan 50 mg oral tablet 1 tablet, By Mouth, Daily, # 30 tablet, 5 Refills, Maintenance, 06/20/20 9:32:00 EDT, [facility], 157.48, cm, 05/31/20 9:41:00 EST, Height Start [...] request Start Date: 02/16/19 Status: Ordered Pen [place], 31 G x 8 mm BD Ultra [...] 11/17/20 13:36:00 EDT, 04/21/20 13:36:00 EST, Tablet, [facility]/pharmacy #[id number], 157.48, cm, 03/04/20... Start Date: 04/21/20 Stop Date: 11/17/20 Status: Ordered tiZANidine 4 mg oral capsule 1 capsule = 4 mg, By Mouth, 3 times a day, # 21 capsule, 0 Refills, Maintenance, 09/07/20 8:41:00 EDT, Capsule, [facility]/pharmacy #[id number], Partial fill upon patient request if the prescription is for a schedule II opioid drug., 157.48, cm, 05/31/20 9:41:00 E... Start Date: 09/07/20 Stop Date: 09/14/20 Status: Ordered Topamax 25 mg oral tablet 2 tablet = 50 mg, By Mouth, Daily at bedtime, # 60 tablet, 6 Refills, Maintenance, 04/21/20 13:35:00 EST, Tablet, [facility]/pharmacy #[id number], 157.48, cm, 03/04/20 14:14:00 EST, Height Start Date: 04/21/20 Stop Date: 11/17/20 Status: Ordered Trulicity Pen 1.5 mg/0.5 mL subcutaneous solution 0.5 mL = 1.5 mg, Subcutaneous Injection, Every Saturday, for 90 days, # 7.5 mL, 3 Refills, Hard Stop 12/08/21 15:26:00 EDT, 12/13/20 15:26:00 EDT, Solution, [facility], E11.65, 157.48, cm, 04/27/19 15:43:00 EST, Height Start Date: 12/13/20 Stop Date: 12/08/21 Status: Ordered Trulicity Pen 1.5 mg/0.5 mL subcutaneous solution 0.5 mL = 1.5 mg, Subcutaneous Injection, Every Saturday, E11.9, # 7.5 mL, 3 Refills, Maintenance, 12/08/21 15:26:00 EDT, Solution, [facility], E11.65, 157.48, cm, 03/04/20 14:14:00 EST, Height Start Date: 12/08/21 Stop Date: 12/03/22 Status: Ordered Trulicity Pen 1.5 mg/0.5 mL subcutaneous solution 0.5 mL = 1.5 mg, Subcutaneous Injection, Every Saturday, for 90 days, # 6.5 mL, 5 Refills, Hard Stop 12/13/20 15:26:00 EDT, 06/22/19 15:26:00 EDT, Solution, [facility]/pharmacy #[id number], E11.65, 157.48, cm, 04/27/19 15:43:00 EST, Height Start Date: 06/22/19 Stop Date: 12/13/20 Status: Ordered valACYclovir 500 mg oral tablet See Instructions, TAKE 1 TABLET BY MOUTH TWICE A DAY FOR 3 DAYS NEEDED FOR OUTBREAK, # 6 tablet,Refills 2, Acute, Instructions Replace Required Details, Route to Pharmacy Electronically, [email or web address]19, 157.48, cm, 05/31/20 9:41:00 EST, Height Start Date: 06/27/20 Status: Ordered Vascepa 1 g oral capsule 2 capsule = 2 Gm, By Mouth, 2 times a day, # 360 capsule, 5 Refills, Maintenance, 05/03/20 15:59:00EST, Capsule, [email or web address]/pharmacy #[id number], 157.48, cm, 03/04/20 14:14:00 EST, Height [...] Active *Briana Garces, Care Coor dinator, ICP [phone](Confirmed) Active Reflux(Confirmed) Active Hepatic steatosis(Confirmed) Active 64920 -EF 60-65%. No wall motion abnormalities, Does [...] for cpap titration. 5+ HSV and HSV2 Diagnosis Diagnosis Type Effective Dates Health Status Clinical Service Informant Diabetes mellitus type 2 Discharge Diagnosis 08/30/20 Hepatic steatosis Discharge Diagnosis 08/30/20 Obesity Discharge Diagnosis 08/30/20 Thyroid nodules - Multinodular goiter Discharge Diagnosis 08/30/20 Non-Specified Social History Social History Type Response Smoking Status Never smoker entered on: 11/10/13 Sex Female
--- OUTSIDE RECORDS SUMMARY | 2024-01-23 14:21 | XMS_ITS | Continuity of Care Document ---
Author Organization [facility] Address [address] [place] [address]- Care Team Providers Care Agent Licensing Clerk Name Role Phone Rose Mary FISCHER, Sergo Cole Primary Care Physician Encounter [facility] Date(s): 07/11/22 - 08/10/22 [facility] [address], [place] [address] Allergies, Adverse Reactions, Alerts Substance [...] (oldterm) 8 01/21/08 Given 1Result Comment: [01/22/2017] [facility] [id number] 2Admin Note: vis given dated 10/24/12 3Admin Note: vis given dated 10/01/11 4Admin Note: vis 5Admin Note: vis 6Admin Note: vis given: 10/27/2006 7Admin Note: vis given : 10/10/2005 8Admin Note: vis given 2007- Medications acetaminophen 500 mg oral tablet 2 tablet, By Mouth, 4 times a day, PRN NEEDED FOR PAIN, # 100 tablet, 1 Refills, Acute, 219:52:00 EDT, [id number], 157.48, cm, 10/11/20 9:39:00 EDT, Height Start Date: 10/26/20 Status: Ordered Alcohol Pads See Instructions, # 200 each, Refills 11, Tot. Refills 11, Maintenance, To cleans before injections5 x a day., 03/03/21 9:18:00 EST, E11.65, Compound, 157.48, cm, 03/01/21 15:54:00 EST, Height Start Date: 03/03/21 Stop Date: 02/26/22 Status: Ordered Lloey-Panrft-Ixry 300 mg oral capsule 1 capsule, By Mouth, 2 times a day, NOT COVERED., # 60 capsule, 11 Refills, [id number], 157.48, cm, 01/27/21 9:30:00 EDT, Height Start [...] Refills, Maintenance, 03/05/22 13:29:00 EST, [facility], 30, APPLY TO AFFECTED AREA TWICE A [...] tablet, 11 Refills, Maintenance, 07/09/22 10:30:00 EDT, [facility]/pharmacy #[id number], 30, 1 tablet [...] Replace Required Details, Route to Pharmacy Electronically, [facility]/pharmacy... Start Date: 05/02/22 Status: Ordered diclofenac 1% topical gel See Instructions, APPLY TOPICALLY 4 TIMES A DAY NOT TO EXCEED 16 GRAMS/DAY/SINGLE JOINT OF LOWER EXTREMITIES, # 100 Gm, 6 Refills, Maintenance, 03/19/22 9:28:00 EST, [id number], 30, APPLY TOPICALLY 4 TIMES A DAY NOT TO EXCEED 16 GRAMS/DAY/SINGLE... Start Date: 03/19/22 Status: Ordered docusate sodium 100 mg oral capsule See Instructions, TAKE 1 CAPSULE BY MOUTH TWICE A DAY NEEDED FOR CONSTIPATION, # 60 capsule, 5 Refills, Maintenance, 07/03/22 18:20:00 EDT, [facility]/pharmacy #[id number], Duplicate Rx. Original sent 07/03/22 with routing error. Re- sending to pharmacy, 157.5, cm... Start Date: 07/03/22 Status: Ordered docusate sodium 100 mg oral capsule 100 mg, 1, capsule, By Mouth, 2 times a day, PRN, # 60 capsule, Refills 5, Tot. Refills 5, Maintenance, as needed for constipation, 06/12/22 9:52:00 EDT, Route to Pharmacy Electronically, [facility]/pharmacy #[id number], Partial fill upon [...] each, 0 Refills, Maintenance, 03/22/22 16:35:00 EST, [id number], 30, INHALE 1 PUFF BY MOUTH TWICE A DAY, 157.5, cm, 03/22/22 13:25:00 EST, Height Start Date: 03/22/22 Status: Ordered fluticasone 50 mcg/inh nasal spray See Instructions, SPRAY 1 SPRAY INTO EACH NOSTRIL EVERY DAY, # 16 mL, 5 Refills, Maintenance, 07/05/22 16:20:00 EDT, [id number], 30, SPRAY 1 SPRAY INTO EACH NOSTRIL [...] mL, 6 Refills, Maintenance, 06/12/22 10:00:00 EDT, [facility], Partial fill upon patie... Start Date: 06/12/22 Status: Ordered Lantus Solostar Pen 100 units/mL subcutaneous solution See Instructions, Take 45 units in the AM and 45 units daily at bedtime. E11.9., # 30 mL, 9 Refills, Maintenance, 06/19/22 16:50:00 EDT, [facility], Partial fill upon patient requestif the prescription is for a schedule II opioid lucas... Start Date: 06/19/22 Status: Ordered lidocaine 5% topical ointment See Instructions, APPLY TO AFFECTED AREA 3 TIMES A DAY, # 35.44 Gm, 11 Refills, Maintenance, 02/28/22 8:51:00 EST, [facility]/pharmacy #[id number], 30, APPLY TO AFFECTED AREA 3 TIMES A DAY, 157.5, cm, 02/21/22 14:36:00 EST, Height Start Date: 02/28/22 Status: Ordered lidocaine 5% topical ointment See Instructions, APPLY TO AFFECTED AREA 3 TIMES A DAY, # 35.44 Gm, 11 Refills, Maintenance, 07/03/22 18:22:00 EDT, [facility]/pharmacy #[id number], 30, Duplicate Rx. [...] 5 Refills, Maintenance, 05/01/22 18:04:00 EST, Capsule, [id number], Partial fill upon patient request if the prescription is for a schedule II opioid drug., 157.5,... Start Date: 05/01/22 Status: Ordered mirtazapine 15 mg oral tablet 1 tablet = 15 mg, By Mouth, Daily at bedtime, # 30 tablet, 4 Refills, Maintenance, 05/02/22 14:02:00 EST, Tablet, [facility]/pharmacy #[id number], Partial fill upon patient request if the prescription is for a schedule II opioid drug., 157.5, cm, 04/11/22 10:50:00... Start Date: 05/02/22 Stop Date: 09/29/22 Status: Ordered [place]-3 Fish Oil 1000 mg oral capsule 1 capsule = 1,000 mg, By Mouth, Daily, # 90 capsule, 1 Refills, Maintenance, 08/01/22 10:17:00 EDT,[facility]/pharmacy #[id number], Partial fill upon [...] Refills, Maintenance, 06/14/22 16:40:00 EDT, EC Tablet, [facility]/pharmacy #[id number], Partial fill upon patient request if the prescription is for a schedule II opioid drug., 157.5,... Start Date: 06/14/22 Status: Ordered oxyCODONE 10 mg oral tablet TAKE 1/2 TAB EVERY 12 HOURS NEEDED FOR SEVERE NECK/LOW BACK PAIN. DO NOT FILL UNTIL 05/01/21 Start Date: 06/02/21 Status: Ordered Pen [place], 31 G x 8 mm BD Ultra [...] 05/02/22 14:40:00 EST, Route to Pharmacy Electronically, [facility]/pharmacy #[id number], Partial fill upon patient request if the prescription is for a schedule II opi... Start Date: 05/02/22 Status: Ordered surgeon's assistant grabber tool surgeon's assistant grabber tool, See Instructions, # 1 each, Refills 0, Tot. Refills 0, Maintenance, please dispense one surgeon's assistant grabber tool, ICD 10 M54.6, length [...] 10:05:00 EDT, 06/12/22 10:05:00 EDT, Chew Tablet, [facility], Partial fill upon [...] Stop 12/15/22 14:36:00 EDT, 04/19/22 14:36:00 EST, [facility]/pharmacy #[id number], 157.5, cm, 04/11/22 10:50:00 EST, Height Start Date: 04/19/22 Stop Date: 12/15/22 Status: Ordered Topamax 25 mg oral tablet 3 tablet = 75 mg, By Mouth, Daily at bedtime, # 90 tablet, 6 Refills, Maintenance, 06/26/22 10:14:00 EDT, Tablet, [facility], 157.5, cm, 06/21/22 8:43:00 EDT, Height Start Date: 06/26/22 Stop Date: 01/22/23 Status: Ordered Trulicity Pen 3 mg/0.5 mL subcutaneous solution See Instructions, INJECT 0.5ML SUBCUTANEOUSLY EVERY WEEK, ROTATE INJECTION SITES, # 2 mL, 5 Refills, 01/23/22 16:33:00 EDT, [facility], 157.5, cm, 01/20/22 13:38:00 EDT, Height Start Date: 01/23/22 Status: Ordered Trulicity Pen 4.5 mg/0.5 mL subcutaneous solution See Instructions, 4.5 mg Subcutaneous Infusion weekly. E11.9, # 4 each, 5 Refills, Maintenance, 06/19/22 17:00:00 EDT, [facility], Partial fill upon patient request if the prescription is for a schedule II opioid drug., 157.5, cm, ... Start Date: 06/19/22 Status: Ordered valACYclovir 500 mg oral tablet 1, tablet, By Mouth, 2 times a day, PRN, # 6 tablet, Refills 2, Maintenance, NEEDED FOR OUTBREAKS, 07/11/22 16:11:00 EDT, Route to Pharmacy Electronically, [id number], 157.5, cm, 06/21/22 8:43:00 EDT, Height Start Date: 07/11/22 Stop Date: 07/14/22 Status: Ordered Vascepa 1 g oral capsule 2 capsule = 2 Gm, By Mouth, 2 times a day, # 360 capsule, 5 Refills, Maintenance, 05/03/20 15:59:00EST, Capsule, [facility]/pharmacy #[id number], 157.48, cm, 03/04/20 14:14:00 EST, Height Start Date: 05/03/20 Status: Ordered Ventolin HFA 108 mcg/inh inhalation aerosol with adapter 1 puffs, Inhalation, 4 times a day, PRN NEEDED FOR WHEEZING, # 18 each, 0 Refills, Maintenance, 04/04/22 12:59:00 EST, [facility], 157.5, cm, 03/22/22 13:25:00 EST, Height Start [...] 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 No wall motion abnormalities, Does [...] Team Personnel Name: Sergo Bazzi MD Position: [facility] Primary Care Physician Member Role: PCP Address: Address: [address] [place] [address] [place] [address]- Name: Lizbeth Barnhart Position: [facility] RN Member Role: Primary Care Nurse Care Team Related Persons Name: KALE LB Address: home [address] [address] Name: LB HENLEY Address: home [address] [place] [address] Name: MILENA CUBA Address: home [address] [place] [address]
--- OUTSIDE RECORDS SUMMARY | 2024-01-23 14:21 | XMS_ITS | Continuity of Care Document ---
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 Name Role Phone Rose Mary FISCHER, Sergo Cole Primary Care Physician Encounter [facility] Date(s): 05/03/20 - 06/02/20 [facility] [address] [place], [place] [address] Attending Physician: Broderick Washburn Admitting Physician: Broderick Washburn Referring Physician: AdmtrBroderick Allergies, Adverse Reactions, Alerts Substance Reaction Severity [...] 8 01/21/08 Given 1Result Comment: [01/22/2017] [facility] [id number] 2Admin Note: vis given dated 10/24/12 3Admin Note: vis given dated 10/01/11 4Admin Note: vis 5Admin Note: vis 6Admin Note: vis given: 10/27/2006 7Admin Note: vis given : 10/10/2005 8Admin Note: vis given 2007- Medications Acyclovir Maintenance, 11/13/18 15:06:54 EDT Start Date: 11/13/18 Status: Ordered Admelog SoloStar 100 units/mL injectable solution 10 - 25 units, Subcutaneous Infusion, 3 times a day with meals, Inject via sliding scale, Max Dailydose 75u, 90 day supply, E11.9, # 90 mL, 5 Refills, Maintenance, 09/02/19 13:54:00 EDT, [facility], E11.9, 157.48, cm, 04/27/19 [...] tablet, 3 Refills, Maintenance, 02/01/20 15:26:00 EST, [facility]/pharmacy #[id number], 157.48, cm, 01/25/20 15:23:00 EDT, Height Start Date: 02/01/20 Status: Ordered Artificial Tears preserved solution 2 drops, Eyes, Both, 2 times a day, PRN for dry eyes, # 15 mL, 3 Refills, Maintenance, 02/16/19 15:03:08 EST, Solution, 2 drops Eyes, Both 2 times a day,PRN:for dry eyes Start Date: 02/16/19 Status: Ordered aspirin 81 mg oral delayed release tablet 1 tablet, By Mouth, Daily, # 30 tablet, 5 Refills, Maintenance, 12/21/19 17:01:00 EDT, [facility]/pharmacy#[id number], 157.48, cm, 04/27/19 15:43:00 EST, Height Start Date: 12/21/19 Status: Ordered atorvastatin 80 mg oral tablet 1 tablet = 80 mg, By Mouth, Daily, replaces Simvastatin, # 90 tablet, 4 Refills, Maintenance, 02/23/20 11:05:00 EST, Tablet, [facility]/pharmacy #[id number], replaces simvastatin, 157.48, cm, 01/25/20 15:23:00 EDT, Height Start Date: 02/23/20 Stop Date: 05/18/21 Status: Ordered atorvastatin 80 mg oral tablet 1 tablet = 80 mg, By Mouth, Daily, for 90 days, replaces Simvastatin, # 90 tablet, 4 Refills, Hard Stop 04/01/21 14:01:00 EST, 01/07/20 14:01:00 EDT, Tablet, [facility]/pharmacy #[id number], replaces simvastatin,157.48, cm, 12/29/19 15:55:00 EDT, Height Start Date: 01/07/20 Stop Date: 04/01/21 Status: Ordered BD ultra fine III pen needles [id number] BD ultra fine III pen needles [id number], See Instructions, # 360 each, Refills 3, [...] TO AFFECTED AREA TWICE A DAY, # 60 Gm, 4 Refills, Acute, [facility], 30, APPLY TO AFFECTED AREA TWICE A DAY, 157.48, cm, 04/27/19 15:43:00 EST, Height Start Date: 12/09/19 Status: Ordered diazepam 5 mg oral tablet Refills 0, Maintenance, 05/30/17 11:18:02 Start Date: 05/30/17 Status: Ordered diclofenac 1% topical gel 1 application, Topically, 4 times a day, not to exceed 16 grams/day/single joint of lower extremities, # 100 Gm, 6 Refills, Maintenance, 12/24/19 9:18:00 EDT, Gel, [facility]/pharmacy #[id number], 157.48, cm, 04/27/19 15:43:00 EST, Height Start Date: 12/24/19 Stop Date: 07/21/20 Status: Ordered disposable bed liners, chuckpads disposable [...] 5 Refills, Maintenance, 01/07/20 14:00:00 EDT, Tablet, [facility]/pharmacy #[id number], 157.48, cm, 12/29/19 15:55:00 EDT, Height Start Date: 01/07/20 Stop Date: 07/05/20 Status: Ordered fentanyl 12 mcg/hr transdermal film, extended release 1 patch, Topically, Every 72 hours, 0 Refills, Maintenance, 02/16/19 14:50:52 EST, Patch, Partial fill upon patient request Start Date: 02/16/19 Status: Ordered fluticasone 50 mcg/inh nasal spray 1 sprays, Nares, Both, Daily, in each nostril, # 16 Gm, 1 Refills, Maintenance, 12/10/19 12:46:00 EDT, [id number], 1 sprays Nares, Both Daily,x30 days,Instr:in each nostril, 157.48, cm, 04/27/19 15:43:00 EST, Height Start Date: 12/10/19 Stop Date: 02/08/20 Status: Ordered Freestyle InsuLinx Test Strips See Instructions, # 360 each, Refills 5, Tot. Refills 5, Maintenance, Use to check blood glucose levels up to 4 X A DAY TESTING, E11.9, 90 Day supply, 09/02/19 13:55:00 EDT, E11.9, 90 DAY SUPPLY, Compound, 157.48, cm, 04/27/19 15:43:00 EST, Height Start Date: 09/02/19 Status: Ordered Freestyle Lite Lancets See Instructions, # 360 each, Refills 3, Tot. Refills 3, Maintenance, use up to check blood [id number] per day. 90 DAY SUPPLY, E11.9, 02/29/20 [...] mL, 2 Refills, Maintenance, 04/07/20 16:52:00 EST, [facility], Partial fill upon patient [...] day as of 12/29/19, # 30 mL, 11 Refills, Maintenance, 09/02/19 13:55:00 EDT, [facility], NEEDS 30 ML FOR 30 DAY SUPPLY E11.9, 157.48, cm, 04/27/19 15:43:00 EST, Height Start Date: 09/02/19 Status: Ordered Large Adult size pull ups Large Adult size pull ups, See Instructions, # 180 each, Refills 11, Tot. Refills 11, Maintenance, Dx: urinary incontinence R32 Weight: 95.68kg Height: 157.48cm ANABEL: 1 year, 04/07/20 14:57:00 EST, Compound Start Date: 04/07/20 Status: Ordered lidocaine 5% topical ointment See Instructions, APPLY TO AFFECTED AREA 3 TIMES A DAY, # 35.44 Gm, 11 Refills, Acute, [facility], 30, APPLY TO AFFECTED AREA 3 TIMES A DAY, 157.48, cm, 03/04/20 14:14:00 EST, Height Start Date: 05/10/20 Status: Ordered losartan 50 mg oral tablet 50 mg, 1, tablet, By Mouth, Daily, can substitute 25mg tabs x2 if needed, # 30 tablet, Refills 5, Tot. Refills 5, Maintenance, 01/11/20 11:21:00 EDT, Route to Pharmacy Electronically, [facility]/pharmacy #[id number], 157.48, cm, 12/29/19 15:55:00 EDT, Height Start Date: 01/11/20 Stop Date: 07/09/20 Status: Ordered mirtazapine 15 mg oral tablet TAKE 1 TABLET BY MOUTH EVERY DAY IN THE EVENING Start Date: 10/14/18 Status: Ordered multivitamin Multiple Vitamins oral tablet 1 tablet, By Mouth, Daily, Take it 2 hours separate from Orlistat ([place]), # 90 tablet, 4 Refills, Maintenance, 08/14/19 8:49:00 EDT, Tablet, [facility]/pharmacy #[id number], 1 tablet By Mouth Daily,x90 days,Instr:Take it 2 hours separate from Orlistat ([place]), 157.... Start Date: 08/14/19 Stop Date: 11/06/20 Status: Ordered oxyCODONE 5 mg oral tablet 5 mg, 1, tablet, By Mouth, Every 12 hours, PRN, Refills 0, Tot. Refills 0, Maintenance, as needed for pain, 02/16/19 14:51:00 EST, Partial fill upon patient request Start Date: 02/16/19 Status: Ordered Pen [place], 31 G x 8 mm BD Ultra Fine III See Instructions, # 450 each, Refills 5, Tot. Refills 5, Maintenance, 5 X A DAY INJECTIONS, 90 DY SUPPLY, 09/02/19 13:55:00 EDT, EE11.9, Compound, 157.48, cm, 04/27/19 15:43:00 EST, Height Start Date: 09/02/19 Status: Ordered QUEtiapine 25 mg oral tablet [...] 11/17/20 13:36:00 EDT, 04/21/20 13:36:00 EST, Tablet, [facility]/pharmacy #[id number], 157.48, cm, 03/04/20... Start Date: 04/21/20 Stop Date: 11/17/20 Status: Ordered Topamax 25 mg oral tablet 2 tablet = 50 mg, By Mouth, Daily at bedtime, # 60 tablet, 6 Refills, Maintenance, 04/21/20 13:35:00 EST, Tablet, [facility]/pharmacy #[id number], 157.48, cm, 03/04/20 14:14:00 EST, Height Start Date: 04/21/20 Stop Date: 11/17/20 Status: Ordered Trulicity Pen 1.5 mg/0.5 mL subcutaneous solution 0.5 mL = 1.5 mg, Subcutaneous Injection, Every Saturday, for 90 days, # 7.5 mL, 3 Refills, Hard Stop 12/08/21 15:26:00 EDT, 12/13/20 15:26:00 EDT, Solution, [facility], E11.65, 157.48, cm, 04/27/19 15:43:00 EST, Height Start Date: 12/13/20 Stop Date: 12/08/21 Status: Ordered Trulicity Pen 1.5 mg/0.5 mL subcutaneous solution 0.5 mL = 1.5 mg, Subcutaneous Injection, Every Saturday, E11.9, # 7.5 mL, 3 Refills, Maintenance, 12/08/21 15:26:00 EDT, Solution, [facility], E11.65, 157.48, cm, 03/04/20 14:14:00 EST, Height Start Date: 12/08/21 Stop Date: 12/03/22 Status: Ordered Trulicity Pen 1.5 mg/0.5 mL subcutaneous solution 0.5 mL = 1.5 mg, Subcutaneous Injection, Every Saturday, for 90 days, # 6.5 mL, 5 Refills, Hard Stop 12/13/20 15:26:00 EDT, 06/22/19 15:26:00 EDT, Solution, [facility]/pharmacy #[id number], E11.65, 157.48, cm, 04/27/19 15:43:00 EST, Height Start Date: 06/22/19 Stop Date: 12/13/20 Status: Ordered Vascepa 1 g oral capsule 2 capsule = 2 Gm, By Mouth, 2 times a day, # 360 capsule, 5 Refills, Maintenance, 05/03/20 15:59:00EST, Capsule, [facility]/pharmacy #[id number], 157.48, cm, 03/04/20 14:14:00 EST, [...] Active Back pain NOS(Confirmed) 3 Active Migraine(Confirmed) 10/7/11 Active Numbness of left foot(Confirmed) Active Obesity monitoring(Confirmed) Active STORMY (obstructive sleep apnea)(Confirmed) 4 Active PAIN IN JOINT INVOLVING MULT IPLE SITES(Confirmed) Active History of DILIP positive fo r HSV(Confirmed) 5 02/20/10 Active *Briana Garces, Care Coor dinator, ICP [phone](Confirmed) Active Reflux(Confirmed) Active 73505 -EF 60-65%. No wall motion abnormalities, Does [...] for cpap titration. 5+ HSV and HSV2 Vital Signs Most recent to oldest [Reference Range]: 1 Height 158 cm (04/03/16 10:51 AM) Weight 103.3 kg (04/03/16 10:51 AM) Pulse Rate [55-90 bpm] 79 bpm (04/03/16 10:51 AM) Body Mass Index [18.50-24.99] 41.38 *>HHI* (04/03/16 10:51 AM) Blood Pressure [90-138/55-84 mm Hg] 126/ 82mm Hg (04/03/16 10:51 AM) Weight Obtained Via Standing scale (04/03/16 10:51 AM) Social History Social History Type Response Smoking Status Never smoker entered on: 11/10/13 Sex Female
--- OUTSIDE RECORDS SUMMARY | 2024-01-23 14:21 | XMS_ITS | Continuity of Care Document ---
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 [...] tablet, 3 Refills, Maintenance, 02/01/20 15:26:00 EST, [facility]/pharmacy #[id number], 157.48, cm, 01/25/20 15:23:00 EDT, Height Start Date: 02/01/20 Status: Ordered ammonium lactate 12% topical cream 1 application, Topically, 2 times a day, # 385 Gm, 5 Refills, Maintenance, 06/20/20 10:55:00 EDT, Cream, [facility]/pharmacy #[id number], Partial fill upon patient request [...] Refills, Maintenance, 06/21/20 17:44:00 EDT, [facility], 157.48, cm, 05/31/20 9:41:00 EST, Height Start Date: 06/21/20 Status: Ordered atorvastatin 80 mg oral tablet 1 tablet = 80 mg, By Mouth, Daily, replaces Simvastatin, # 90 tablet, 4 Refills, Maintenance, 02/23/20 11:05:00 EST, Tablet, [facility]/pharmacy #[id number], replaces simvastatin, 157.48, cm, 01/25/20 15:23:00 EDT, Height Start Date: 02/23/20 Stop Date: 05/18/21 Status: Ordered atorvastatin 80 mg oral tablet 1 tablet = 80 mg, By Mouth, Daily, for 90 days, replaces Simvastatin, # 90 tablet, 4 Refills, Hard Stop 04/01/21 14:01:00 EST, 01/07/20 14:01:00 EDT, Tablet, [facility]/pharmacy #[id number], replaces simvastatin,157.48, cm, 12/29/19 15:55:00 EDT, Height Start Date: 01/07/20 Stop Date: 04/01/21 Status: Ordered BD ultra fine III pen needles [id number] BD ultra fine III pen needles [id number], See Instructions, # 360 each, Refills 3, [...] pain (M79.672) Numbness of left foot (R20.8), 08/25/20 9:58:00 EDT, Supply Start Date: 11/24/19 Status: Ordered capsaicin 0.075% topical cream See Instructions, APPLY TO AFFECTED AREA TWICE A DAY, # 60 Gm, 4 Refills, Physician Stop 07/25/20 15:15:00 EDT, 06/27/20 15:14:00 EDT, [facility]/pharmacy #[id number], 30, APPLY TO AFFECTED AREA TWICE A DAY, 157.48, cm, 05/31/20 9:41:00 EST, Height Start Date: 06/27/20 Stop Date: 07/25/20 Status: Ordered diazepam 5 mg oral tablet Refills 0, Maintenance, 05/30/17 11:18:02 Start Date: 05/30/17 Status: Ordered diclofenac 1% topical gel 1 application, Topically, 4 times a day, not to exceed 16 grams/day/single joint of lower extremities, # 100 Gm, 6 Refills, Maintenance, 06/27/20 15:14:00 EDT, Gel, [facility]/pharmacy #[id number], 157.48, cm, 05/31/20 9:41:00 EST, Height Start Date: 06/27/20 Stop Date: 01/23/21 Status: Ordered disposable bed liners, chuckpads disposable [...] 5 Refills, Maintenance, 01/07/20 14:00:00 EDT, Tablet, [facility]/pharmacy #[id number], 157.48, cm, 12/29/19 15:55:00 EDT, Height [...] Gm, 5 Refills, Maintenance, 06/27/20 15:14:00 EDT, [facility]/pharmacy #[id number], 1 sprays Nares, Both Daily,x30 [...] 3, Maintenance, use up to check blood [id number] per day. 90 DAY SUPPLY, E11.9, 02/29/20 [...] mL, 2 Refills, Maintenance, 04/07/20 16:52:00 EST, [facility], Partial fill upon patient request [...] mL, 11 Refills, Maintenance, 09/02/19 13:55:00 EDT, [facility], NEEDS 30 ML FOR 30 [...] DAY, # 35.44 Gm, 11 Refills, Acute, [facility], 30, APPLY TO AFFECTED AREA 3 TIMES A DAY, 157.48, cm, 03/04/20 14:14:00 EST, Height Start Date: 05/10/20 Status: Ordered losartan 50 mg oral tablet 1 tablet, By Mouth, Daily, # 30 tablet, 5 Refills, Maintenance, 06/20/20 9:32:00 EDT, [facility], 157.48, cm, 05/31/20 9:41:00 EST, Height Start Date: 06/20/20 Status: Ordered mirtazapine 15 mg oral tablet TAKE 1 TABLET BY MOUTH EVERY DAY IN THE EVENING Start Date: 10/14/18 Status: Ordered multivitamin Multiple Vitamins oral tablet 1 tablet, By Mouth, Daily, Take it 2 hours separate from Orlistat ([place]), # 90 tablet, 4 Refills, Maintenance, 08/14/19 8:49:00 EDT, Tablet, [facility]/pharmacy #[id number], 1 tablet By Mouth Daily,x90 days,Instr:Take it 2 hours separate from Orlistat ([place]), 157.... Start Date: 08/14/19 Stop Date: 11/06/20 Status: Ordered oxyCODONE 5 mg oral tablet 5 mg, 1, tablet, By Mouth, Every 12 hours, PRN, Refills 0, Tot. Refills 0, Maintenance, as needed for pain, 02/16/19 14:51:00 EST, Partial fill upon patient request Start Date: 02/16/19 Status: Ordered Pen [place], 31 G x 8 mm BD Ultra [...] 11/17/20 13:36:00 EDT, 04/21/20 13:36:00 EST, Tablet, [facility]/pharmacy #[id number], 157.48, cm, 03/04/20... Start Date: 04/21/20 Stop Date: 11/17/20 Status: Ordered Topamax 25 mg oral tablet 2 tablet = 50 mg, By Mouth, Daily at bedtime, # 60 tablet, 6 Refills, Maintenance, 04/21/20 13:35:00 EST, Tablet, [id number], 157.48, cm, 03/04/20 14:14:00 EST, Height Start Date: 04/21/20 Stop Date: 11/17/20 Status: Ordered Trulicity Pen 1.5 mg/0.5 mL subcutaneous solution 0.5 mL = 1.5 mg, Subcutaneous Injection, Every Saturday, for 90 days, # 7.5 mL, 3 Refills, Hard Stop 12/08/21 15:26:00 EDT, 12/13/20 15:26:00 EDT, Solution, [facility], E11.65, 157.48, cm, 04/27/19 15:43:00 EST, Height Start Date: 12/13/20 Stop Date: 12/08/21 Status: Ordered Trulicity Pen 1.5 mg/0.5 mL subcutaneous solution 0.5 mL = 1.5 mg, Subcutaneous Injection, Every Saturday, E11.9, # 7.5 mL, 3 Refills, Maintenance, 12/08/21 15:26:00 EDT, Solution, [facility], E11.65, 157.48, cm, 03/04/20 14:14:00 EST, Height Start Date: 12/08/21 Stop Date: 12/03/22 Status: Ordered Trulicity Pen 1.5 mg/0.5 mL subcutaneous solution 0.5 mL = 1.5 mg, Subcutaneous Injection, Every Saturday, for 90 days, # 6.5 mL, 5 Refills, Hard Stop 12/13/20 15:26:00 EDT, 06/22/19 15:26:00 EDT, Solution, [facility]/pharmacy #[id number], E11.65, 157.48, cm, 04/27/19 15:43:00 EST, Height Start Date: 06/22/19 Stop Date: 12/13/20 Status: Ordered valACYclovir 500 mg oral tablet See Instructions, TAKE 1 TABLET BY MOUTH TWICE A DAY FOR 3 DAYS NEEDED FOR OUTBREAK, # 6 tablet,Refills 2, Acute, Instructions Replace Required Details, Route to Pharmacy Electronically, [facility], 157.48, cm, 05/31/20 9:41:00 EST, Height Start Date: 06/27/20 Status: Ordered Vascepa 1 g oral capsule 2 capsule = 2 Gm, By Mouth, 2 times a day, # 360 capsule, 5 Refills, Maintenance, 05/03/20 15:59:00EST, Capsule, [facility]/pharmacy #[id number], 157.48, cm, 03/04/20 14:14:00 EST, [...] pain NOS(Confirmed) 3 Active Migraine(Confirmed) 01/05/11 Active Numbness of left foot(Confirmed) Active Obesity monitoring(Confirmed) Active STORMY (obstructive sleep apnea)(Confirmed) 4 Active PAIN IN JOINT INVOLVING MULT IPLE SITES(Confirmed) Active 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 No wall motion abnormalities, Does [...]
--- OUTSIDE RECORDS SUMMARY | 2024-01-23 14:21 | XMS_ITS | Continuity of Care Document ---
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 Role Phone Rose Mary FISCHER, Sergo Cole Primary Care Physician Encounter [facility] Date(s): 08/11/21 - 09/10/21 [facility] [address], [place] [address] Allergies, Adverse Reactions, Alerts Substance [...] 8 01/21/08 Given 1Result Comment: [01/22/2017] [facility] [id number] 2Admin Note: vis given dated 10/24/12 3Admin Note: vis given dated 10/01/11 4Admin Note: vis 5Admin Note: vis 6Admin Note: vis given: 10/27/2006 7Admin Note: vis given : 10/10/2005 8Admin Note: vis given 2007- Medications acetaminophen 500 mg oral tablet 2 tablet, By Mouth, 4 times a day, PRN NEEDED FOR PAIN, # 100 tablet, 1 Refills, Acute, 219:52:00 EDT, [facility], 157.48, cm, 10/11/20 9:39:00 EDT, Height Start Date: 10/26/20 Status: Ordered Alcohol Pads See Instructions, # 200 each, Refills 11, Tot. Refills 11, Maintenance, To cleans before injections5 x a day., 03/03/21 9:18:00 EST, E11.65, Compound, 157.48, cm, 03/01/21 15:54:00 EST, Height Start Date: 03/03/21 Stop Date: 02/26/22 Status: Ordered Lqoxk-Vyopeb-Qkhs 300 mg oral capsule 1 capsule, By Mouth, 2 times a day, NOT COVERED., # 60 capsule, 11 Refills, [facility], 157.48, cm, 01/27/21 9:30:00 EDT, Height Start Date: 01/30/21 Status: Ordered ammonium lactate 12% topical cream 1 application, Topically, 2 times a day, # 385 Gm, 5 Refills, Maintenance, 09/08/21 9:35:00 EDT, Cream, [facility]/pharmacy #[id number], Partial fill upon patient request if the prescription is for a schedule II opioid drug., 1 application Topically 2 times a day,... Start Date: 09/08/21 Stop Date: 03/07/22 Status: Ordered aspirin 81 mg oral delayed release tablet 1 tablet, By Mouth, Daily, # 30 tablet, 11 Refills, Maintenance, 06/21/20 17:44:00 EDT, [facility] 418[facility], 157.48, cm, 05/31/20 9:41:00 EST, Height Start Date: 06/21/20 Status: Ordered atorvastatin 80 mg oral tablet 1 tablet = 80 mg, By Mouth, Daily, replaces Simvastatin, # 90 tablet, 4 Refills, Maintenance, 06/02/21 14:22:00 EST, Tablet, [id number], replaces simvastatin, 157.48, cm, 06/02/21 14:20:00 EST, Height Start Date: 06/02/21 Stop Date: 08/26/22 Status: Ordered Blood Pressure Monitor See Instructions, # 1 each, Maintenance, monitor BP 2/week dx I10, 09/01/21 15:39:00 EDT, Supply Start Date: 09/01/21 Status: Ordered capsaicin 0.075% topical cream See Instructions, APPLY TO AFFECTED AREA TWICE A DAY, # 57 Gm, 4 Refills, Physician Stop 09/29/21 13:12:00 EDT, 09/01/21 13:11:00 EDT, [facility]/pharmacy #[id number], 30, APPLY TO AFFECTED AREA TWICE A DAY, 157.48, cm, 08/24/21 8:03:00 EDT, Height Start Date: 09/01/21 Stop Date: 09/29/21 Status: Ordered Daily David oral tablet 1 tablet, By Mouth, Daily, INSTR:TAKE IT 2 HOURS SEPARATE FROM ORLISTAT ([place]), # 30 tablet, 11 Refills, Maintenance, 08/19/20 16:26:00 EDT, [facility] STORE [facility]14, 30, TAKE 1 TABLET BY MOUTH DAILY. [...] extremities, # 100 Gm, 6 Refills, Maintenance, 09/01/21 13:11:00 EDT, Gel, [id number], 157.48, cm, 08/24/21 8:03:00 EDT, Height Start Date: 09/01/21 Stop Date: 03/30/22 Status: Ordered disposable bed liners, chuckpads disposable [...] opioid drug. Start Date: 08/24/21 Status: Ordered fluticasone 50 mcg/inh nasal spray See Instructions, USE 1 SPRAY IN EACH NOSTRIL EVERY DAY, # 16 mL, 5 Refills, [facility], 30, USE 1 SPRAY IN EACH NOSTRIL [...] 3, Maintenance, use up to check blood [id number] per day. 90 DAY SUPPLY, E11.9, 03/03/21 [...] Insulin Lispro KwikPen 100 units/mL injectable solution See Instructions, Use according to sliding scale via Subcutaneous Injection 3 times a day before meals, # 15 mL, 6 Refills, Maintenance, 08/24/21 9:25:00 EDT, [facility], Partial fill upon patient request if the prescription is for a... Start Date: 08/24/21 Status: Ordered Lantus Solostar Pen 100 units/mL subcutaneous solution See Instructions, Take 80 units via Subcutaneous Infusion Daily at bedtime. E11.9., # 30 mL, 9 Refills, Maintenance, 08/24/21 9:25:00 EDT, [facility], Partial fill upon patient request if the prescription is for a schedule II opioid d... Start Date: 08/24/21 Status: Ordered Lantus Solostar Pen 100 units/mL subcutaneous solution See Instructions, Decreased to 60U once a day as of 12/29/19, # 30 mL, 9 Refills, Maintenance, 09/20/20 15:10:00 EDT, [facility], NEEDS 30 ML FOR 30 DAY [...] Daily, # 6 each, 0 Refills, Maintenance, 09/08/21 9:35:00 EDT, Film, [facility]/pharmacy #[id number], Partial fill upon patient request if the prescription is for a schedule II opioid drug., 1patch Topically Daily, 157.48, cm, 08/24/21 8:03:00... Start Date: 09/08/21 Status: Ordered losartan 50 mg oral tablet 1 tablet, By Mouth, Daily, # 30 tablet, 2 Refills, [facility], 157.48, cm, 05/05/21 9:51:00 EST, Height Start Date: 05/12/21 Status: Ordered mirtazapine 15 mg oral tablet 0 Refills, Maintenance, 06/02/21 14:25:00 EST, Partial fill upon patient request if the prescription is for a schedule II opioid drug. Start Date: 06/02/21 Status: Ordered omeprazole 20 mg oral enteric coated capsule 1 capsule, By Mouth, 2 times a day, # 60 capsule, 1 Refills, [facility], 157.48, cm, 06/02/21 14:20:00 EST, Height Start Date: 07/14/21 Status: Ordered oxyCODONE 10 mg oral tablet TAKE 1/2 TAB EVERY 12 HOURS NEEDED FOR SEVERE NECK/LOW BACK PAIN. DO NOT FILL UNTIL 05/01/21 Start Date: 06/02/21 Status: Ordered Pen [place], 31 G x 8 mm BD Ultra [...] OF 2, # 12 tablet, 7 Refills, [facility], 157.48, cm, 05/23/21 13:08:00 EST, Height Start Date: 06/02/21 Status: Ordered tiZANidine 4 mg oral capsule 1 capsule, By Mouth, 3 times a day, # 90 capsule, 3 Refills, [facility], 157.48, cm, 05/23/21 13:08:00 EST, Height Start Date: 06/01/21 Status: Ordered Topamax 25 mg oral tablet 2 tablet = 50 mg, By Mouth, Daily at bedtime, # 60 tablet, 6 Refills, Maintenance, 08/29/21 14:04:00 EDT, Tablet, [facility]/pharmacy #[id number], 157.48, cm, 08/24/21 8:03:00 EDT, Height Start Date: 08/29/21 Stop Date: 03/27/22 Status: Ordered Trulicity Pen 3 mg/0.5 mL subcutaneous solution See Instructions, INJECT 0.5ML SUBCUTANEOUSLY EVERY WEEK, ROTATE INJECTION SITES, # 2 mL, 5 Refills, 08/24/21 9:20:00 EDT, [facility], 157.48, cm, 08/24/21 8:03:00 EDT, Height Start Date: 08/24/21 Status: Ordered Vascepa 1 g oral capsule 2 capsule = 2 Gm, By Mouth, 2 times a day, # 360 capsule, 5 Refills, Maintenance, 05/03/20 15:59:00EST, Capsule, [facility]/pharmacy #[id number], 157.48, cm, 03/04/20 14:14:00 EST, [...] r HSV(Confirmed) 5 02/20/10 Active *Briana Garces, Rosemarie Coor dinator, ICP [phone](Confirmed) Active Reflux(Confirmed) Active Hepatic steatosis(Confirmed) Active -EF [...]
--- OUTSIDE RECORDS SUMMARY | 2024-01-23 14:22 | XMS_ITS | Continuity of Care Document ---
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 Phone Rose Mary FISCHER, Sergo Cole Primary Care Physician Encounter [facility] Date(s): 08/29/21 - 09/28/21 [facility] Allergies, Adverse Reactions, Alerts Substance Reaction Severity [...] 8 01/21/08 Given 1Result Comment: [01/22/2017] [facility] [id number] 2Admin Note: vis given dated 10/24/12 3Admin Note: vis given dated 10/01/11 4Admin Note: vis 5Admin Note: vis 6Admin Note: vis given: 10/27/2006 7Admin Note: vis given : 10/10/2005 8Admin Note: vis given 2007- Medications acetaminophen 500 mg oral tablet 2 tablet, By Mouth, 4 times a day, PRN NEEDED FOR PAIN, # 100 tablet, 1 Refills, Acute, 219:52:00 EDT, [facility] 218[facility], 157.48, cm, 10/11/20 9:39:00 EDT, Height Start Date: 10/26/20 Status: Ordered Alcohol Pads See Instructions, # 200 each, Refills 11, Tot. Refills 11, Maintenance, To cleans before injections5 x a day., 03/03/21 9:18:00 EST, E11.65, Compound, 157.48, cm, 03/01/21 15:54:00 EST, Height Start Date: 03/03/21 Stop Date: 02/26/22 Status: Ordered Iirkc-Rqdmtv-Twla 300 mg oral capsule 1 capsule, By Mouth, 2 times a day, NOT COVERED., # 60 capsule, 11 Refills, [facility] 15975, 157.48, cm, 01/27/21 9:30:00 EDT, Height Start Date: 01/30/21 Status: Ordered ammonium lactate 12% topical cream 1 application, Topically, 2 times a day, # 385 Gm, 5 Refills, Maintenance, 09/08/21 9:35:00 EDT, Cream, [facility]/pharmacy #[id number], Partial fill upon patient request if the prescription is for a schedule II opioid drug., 1 application Topically 2 times a day,... Start Date: 09/08/21 Stop Date: 03/07/22 Status: Ordered aspirin 81 mg oral delayed release tablet 1 tablet, By Mouth, Daily, # 30 tablet, 11 Refills, Maintenance, 06/21/20 17:44:00 EDT, [facility] 314[facility], 157.48, cm, 05/31/20 9:41:00 EST, Height Start [...] Stop 09/29/21 13:12:00 EDT, 09/01/21 13:11:00 EDT, [facility]/pharmacy #[id number], 30, APPLY TO AFFECTED AREA TWICE A DAY, 157.48, cm, 08/24/21 8:03:00 EDT, Height Start Date: 09/01/21 Stop Date: 09/29/21 Status: Ordered Daily David oral tablet 1 tablet, By Mouth, Daily, INSTR:TAKE IT 2 HOURS SEPARATE FROM ORLISTAT ([place]), # 30 tablet, 11 Refills, Maintenance, 08/19/20 16:26:00 EDT, [facility], 30, TAKE 1 TABLET BY MOUTH DAILY. [...] 6 Refills, Maintenance, 09/01/21 13:11:00 EDT, Gel, [facility]/pharmacy #[id number], 157.48, cm, 08/24/21 8:03:00 EDT, [...] EVERY DAY, # 16 mL, 5 Refills, [facility] 15[facility], 30, USE 1 SPRAY IN EACH NOSTRIL [...] 3, Maintenance, use up to check blood [id number] per day. 90 DAY SUPPLY, E11.9, 03/03/21 [...] Subcutaneous Injection 3 times a day before meals. max dose 50 units daily, # 15 mL, 6 Refills, Maintenance, 09/18/21 16:43:00 EDT, [facility], Partial fill upon patient request if... Start Date: 09/18/21 Status: Ordered Lantus Solostar Pen 100 units/mL subcutaneous solution See Instructions, Take 80 units via Subcutaneous Infusion Daily at bedtime. E11.9., # 30 mL, 9 Refills, Maintenance, 08/24/21 9:25:00 EDT, [facility], Partial fill upon patient request if the prescription is for a schedule II opioid d... Start Date: 08/24/21 Status: Ordered Lantus Solostar Pen 100 units/mL subcutaneous solution See Instructions, Decreased to 60U once a day as of 12/29/19, # 30 mL, 9 Refills, Maintenance, 09/20/20 15:10:00 EDT, [facility], NEEDS 30 ML FOR 30 [...] 0 Refills, Maintenance, 09/08/21 9:35:00 EDT, Film, [facility]/pharmacy #[id number], Partial fill upon patient request if the prescription is for a schedule II opioid drug., 1patch Topically Daily, 157.48, cm, 08/24/21 8:03:00... Start Date: 09/08/21 Status: Ordered losartan 50 mg oral tablet 1 tablet, By Mouth, Daily, # 30 tablet, 2 Refills, [facility], 157.48, cm, 05/05/21 9:51:00 EST, Height Start Date: 05/12/21 Status: Ordered Lyrica 25 mg oral capsule See Instructions, 1 capsule By Mouth 1 time daily at bedtime. E11.9, # 30 each, 5 Refills, Maintenance, 09/18/21 12:21:00 EDT, Capsule, [id number], Partial fill upon patient [...] 2 times a day, # 60 capsule, 2 Refills, 09/26/21 14:42:00 EDT, [id number], 157.48, cm, 09/20/21 9:26:00 EDT, Height Start Date: 09/26/21 Status: Ordered oxyCODONE 10 mg oral tablet TAKE 1/2 TAB EVERY 12 HOURS NEEDED FOR SEVERE NECK/LOW BACK PAIN. DO NOT FILL UNTIL 05/01/21 Start Date: 06/02/21 Status: Ordered Pen [place], 31 G x 8 mm BD Ultra [...] # 12 tablet, 7 Refills, [facility], 157.48, cm, 05/23/21 13:08:00 EST, Height Start Date: 06/02/21 Status: Ordered tiZANidine 4 mg oral capsule 1 capsule, By Mouth, 3 times a day, # 90 capsule, 3 Refills, [facility], 157.48, cm, 05/23/21 13:08:00 EST, Height Start Date: 06/01/21 Status: Ordered Topamax 25 mg oral tablet 2 tablet = 50 mg, By Mouth, Daily at bedtime, # 60 tablet, 6 Refills, Maintenance, 08/29/21 14:04:00 EDT, Tablet, [facility]/pharmacy #[id number], 157.48, cm, 08/24/21 8:03:00 EDT, Height Start Date: 08/29/21 Stop Date: 03/27/22 Status: Ordered Trulicity Pen 3 mg/0.5 mL subcutaneous solution See Instructions, INJECT 0.5ML SUBCUTANEOUSLY EVERY WEEK, ROTATE INJECTION SITES, # 2 mL, 5 Refills, 08/24/21 9:20:00 EDT, [facility], 157.48, cm, 08/24/21 8:03:00 EDT, Height Start Date: 08/24/21 Status: Ordered Vascepa 1 g oral capsule 2 capsule = 2 Gm, By Mouth, 2 times a day, # 360 capsule, 5 Refills, Maintenance, 05/03/20 15:59:00EST, Capsule, [facility]/pharmacy #[id number], 157.48, cm, 03/04/20 14:14:00 [...] Active *Briana Garces, Care Coor dinator, ICP [phone](Confirmed) Active Reflux(Confirmed) Active Hepatic steatosis(Confirmed) Active -EF [...]
--- OUTSIDE RECORDS SUMMARY | 2024-01-23 14:22 | XMS_ITS | Continuity of Care Document ---
Author Organization [facility] Address [address] [place] [address]- Care Team Providers Care Transplant Coordinator Name Role Phone Rose Mary FISCHER, Sergo Cole Primary Care Physician [phone] Encounter [facility] [place] Date(s): 04/30/22 - 05/30/22 [facility] [address] [place], [place] [address] Allergies, Adverse Reactions, Alerts Substance [...] (oldterm) 8 01/21/08 Given 1Result Comment: [01/22/2017] [facility] 70316-315-65 2Admin Note: vis given dated 10/24/12 3Admin Note: vis given dated 10/01/11 4Admin Note: vis 5Admin Note: vis 6Admin Note: vis given: 10/27/2006 7Admin Note: vis given : 10/10/2005 8Admin Note: vis given 2007- Medications acetaminophen 500 mg oral tablet 2 tablet, By Mouth, 4 times a day, PRN NEEDED FOR PAIN, # 100 tablet, 1 Refills, Acute, 219:52:00 EDT, [facility], 157.48, cm, 10/11/20 9:39:00 EDT, Height Start Date: 10/26/20 Status: Ordered Alcohol Pads See Instructions, # 200 each, Refills 11, Tot. Refills 11, Maintenance, To cleans before injections5 x a day., 03/03/21 9:18:00 EST, E11.65, Compound, 157.48, cm, 03/01/21 15:54:00 EST, Height Start Date: 03/03/21 Stop Date: 02/26/22 Status: Ordered Ddvlg-Siaiag-Ujyc 300 mg oral capsule 1 capsule, By Mouth, 2 times a day, NOT COVERED., # 60 capsule, 11 Refills, [facility], 157.48, cm, 01/27/21 9:30:00 EDT, Height Start Date: 01/30/21 Status: Ordered ammonium lactate 12% topical cream 1 application, Topically, 2 times a day, # 385 Gm, 3 Refills, Maintenance, 04/05/22 13:30:00 EST, Cream, [facility]/pharmacy #[id number], Partial fill upon [...] Gm, 4 Refills, Maintenance, 03/05/22 13:29:00 EST, [email or web address], 30, APPLY TO AFFECTED AREA TWICE A [...] tablet, 11 Refills, Maintenance, 08/19/20 16:26:00 EDT, [email or web address], 30, TAKE 1 TABLET BY MOUTH DAILY. [...] Replace Required Details, Route to Pharmacy Electronically, [facility]/pharmacy... Start Date: 05/02/22 Status: Ordered diclofenac 1% topical gel See Instructions, APPLY TOPICALLY 4 TIMES A DAY NOT TO EXCEED 16 GRAMS/DAY/SINGLE JOINT OF LOWER EXTREMITIES, # 100 Gm, 6 Refills, Maintenance, 03/19/22 9:28:00 EST, [email or web address] 534[facility], 30, APPLY TOPICALLY 4 TIMES A DAY NOT TO EXCEED 16 GRAMS/DAY/SINGLE... Start Date: 03/19/22 Status: Ordered docusate sodium 100 mg oral capsule 100 mg, 1, capsule, By Mouth, 2 times a day, PRN, # 60 capsule, Refills 5, Tot. Refills 5, Maintenance, as needed for constipation, 11/10/21 9:17:00 EDT, Route to Pharmacy Electronically, [facility]/pharmacy #[id number], Partial fill upon [...] each, 0 Refills, Maintenance, 03/22/22 16:35:00 EST, [facility] STORE 70259, 30, INHALE 1 PUFF BY MOUTH TWICE A DAY, 157.5, cm, 03/22/22 13:25:00 EST, Height Start Date: 03/22/22 Status: Ordered fluticasone 50 mcg/inh nasal spray See Instructions, USE 1 SPRAY IN EACH NOSTRIL EVERY DAY, # 16 mL, 5 Refills, 12/29/21 15:10:00 EDT,[facility]/pharmacy #[id number], USE 1 SPRAY IN EACH NOSTRIL [...] mL, 3 Refills, Maintenance, 03/22/22 15:43:00 EST, [facility], Partial fill upon patie... Start Date: 03/22/22 Status: Ordered Lantus Solostar Pen 100 units/mL subcutaneous solution See Instructions, Decreased to 60U once a day as of 12/29/19, # 30 mL, 9 Refills, Maintenance, 09/20/20 15:10:00 EDT, [facility], NEEDS 30 ML FOR 30 DAY SUPPLY E11.9, 157.48, cm, 05/31/20 9:41:00 EST, Height Start Date: 09/20/20 Status: Ordered Lantus Solostar Pen 100 units/mL subcutaneous solution See Instructions, Take 80 units via Subcutaneous Infusion Daily at bedtime. E11.9., # 30 mL, 9 Refills, Maintenance, 03/22/22 15:41:00 EST, [facility], Partial fill upon patient request if the prescription is for a schedule II opioid... Start Date: 03/22/22 Status: Ordered lidocaine 5% topical ointment See Instructions, APPLY TO AFFECTED AREA 3 TIMES A DAY, # 35.44 Gm, 11 Refills, Maintenance, 02/28/22 8:51:00 EST, [facility]/pharmacy #[id number], 30, APPLY TO AFFECTED AREA 3 TIMES A DAY, 157.5, cm, 02/21/22 14:36:00 EST, Height Start Date: 02/28/22 Status: Ordered losartan 50 mg oral tablet 1 tablet, By Mouth, Daily, # 30 tablet, 5 Refills, Maintenance, 05/30/22 16:26:00 EST, [facility], 157.5, cm, 05/09/22 10:05:00 EST, Height Start Date: 05/30/22 Status: Ordered Lyrica 25 mg oral capsule See Instructions, 1 capsule By Mouth 1 time daily at bedtime. E11.9, # 30 each, 5 Refills, Maintenance, 05/01/22 18:04:00 EST, Capsule, [facility]/pharmacy #[id number], Partial fill upon patient request if the prescription is for a schedule II opioid drug., 157.5,... Start Date: 05/01/22 Status: Ordered mirtazapine 15 mg oral tablet 1 tablet = 15 mg, By Mouth, Daily at bedtime, # 30 tablet, 4 Refills, Maintenance, 05/02/22 14:02:00 EST, Tablet, [facility]/pharmacy #[id number], Partial fill upon [...] Refills, Maintenance, 03/30/22 10:50:00 EST, EC Tablet, [facility]/pharmacy #[id number], Partial fill upon patient request if the prescription is for a schedule II opioid drug., 157.5,... Start Date: 03/30/22 Status: Ordered oxyCODONE 10 mg oral tablet TAKE 1/2 TAB EVERY 12 HOURS NEEDED FOR SEVERE NECK/LOW BACK PAIN. DO NOT FILL UNTIL 05/01/21 Start Date: 06/02/21 Status: Ordered Pen Nutley, 31 G x 8 mm BD Ultra [...] 1 Refills, Maintenance, 04/11/22 11:31:00 EST, Tablet, [facility]/pharmacy #[id number], Partial fill upon patient request if the prescription is for a schedule II opioid drug., 157.5, cm, 04/11/22 10:50:00 EST, Height Start Date: 04/11/22 Status: Ordered QUEtiapine 25 mg oral tablet 25 mg, 1, tablet, By Mouth, 2 times a day, # 60 tablet, Refills 4, Tot. Refills 4, Maintenance, 05/02/22 14:40:00 EST, Route to Pharmacy Electronically, [facility]/pharmacy #[id number], Partial fill upon patient request if the prescription is for a schedule II opi... Start Date: 05/02/22 Status: Ordered locator specialist grabber tool locator specialist grabber tool, See Instructions, # 1 each, Refills 0, Tot. Refills 0, Maintenance, please dispense one locator specialist grabber tool, ICD 10 M54.6, length of use 1 month, 04/12/22 10:13:00 EST, Supply Start Date: 04/12/22 Status: Ordered SUMAtriptan 25 mg oral tablet 1 tablet, By Mouth, Daily, PRN NEEDED FOR MIGRAINES, for 30 days, MAY RPT DOSE AFTER 2 HRS TO MAX OF 2, # 12 tablet, 7 Refills, Physician Stop 12/15/22 14:36:00 EDT, 04/19/22 14:36:00 EST, [facility]/pharmacy #[id number], 157.5, cm, 04/11/22 10:50:00 EST, Height Start Date: 04/19/22 Stop Date: 12/15/22 Status: Ordered Topamax 25 mg oral tablet 3 tablet = 75 mg, By Mouth, Daily at bedtime, # 90 tablet, 6 Refills, Maintenance, 04/19/22 14:35:00 EST, Tablet, [facility]/pharmacy #[id number], 157.5, cm, 04/11/22 10:50:00 EST, Height Start Date: 04/19/22 Stop Date: 11/15/22 Status: Ordered Trulicity Pen 3 mg/0.5 mL subcutaneous solution See Instructions, INJECT 0.5ML SUBCUTANEOUSLY EVERY WEEK, ROTATE INJECTION SITES, # 2 mL, 5 Refills, 01/23/22 16:33:00 EDT, [facility], 157.5, cm, 01/20/22 13:38:00 EDT, Height Start Date: 01/23/22 Status: Ordered Trulicity Pen 4.5 mg/0.5 mL subcutaneous solution See Instructions, 4.5 mg Subcutaneous Infusion weekly. E11.9, # 4 each, 5 Refills, Maintenance, 03/22/22 15:41:00 EST, [facility], Partial fill upon patient request if the prescription is for a schedule II opioid drug., 157.5, cm, ... Start Date: 03/22/22 Status: Ordered Vascepa 1 g oral capsule 2 capsule = 2 Gm, By Mouth, 2 times a day, # 360 capsule, 5 Refills, Maintenance, 05/03/20 15:59:00EST, Capsule, 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 RN Member Role: Primary Care Nurse Care Team Related Persons Name: LB HENLEY Address: home [address] [address] Name: LB HENLEY Address: [address] [place] [address] Name: MILENA CUBA Address: home [address] [place] [address]
--- OUTSIDE RECORDS SUMMARY | 2024-01-23 14:22 | XMS_ITS | Continuity of Care Document ---
Author Organization [facility] y Address [address] [place] [address]- Care Team Providers Care Loading Supervisor Name Role Phone Rose Mary FISCHER, Sergo Cole Primary Care Physician [place] [facility] [place]/16[place]21 - 07/30/21 [facility] [address], [place] [address] Attending Physician: Not on Staff, Attending MD Allergies, Adverse Reactions, Alerts Substance Reaction Severity Status morphine ITCH DIARRHEA Active Latex powder eats up skin Active trazodone DEPRESSION Active cortisone Active Motrin [...] influenza virus vaccine, inactivated 2 12/24/12 Gi ilzzeth influenza virus vaccine, inactivated 3 12/07/11 Gi lizzeth tetanus-diphtheria toxoids (Td) 10/14/18 Given Influenza Inactive (IM) (oldterm) 4 01/05/11 Given Influenza Inactive (IM) (oldterm) 5 12/15/09 Given Pneumococcal Vaccine (oldterm) 6 01/21/08 Given Tet/Diphth/Acel, Pertussis (oldterm) 7 01/21/08 Gi lizzeth Influenza Vaccine (oldterm) 8 01/21/08 Given 1Result Comment: [01/22/2017] [facility] [id number] 2Admin Note: vis given dated 10/24/12 3Admin Note: vis given dated 10/01/11 4Admin Note: vis 5Admin Note: vis 6Admin Note: vis given: 10/27/2006 7Admin Note: vis given : 10/10/2005 8Admin Note: vis given 2007- Medications acetaminophen 500 mg oral tablet 2 tablet, By Mouth, 4 times a day, PRN NEEDED FOR PAIN, # 100 tablet, 1 Refills, Acute, :52:00 EDT, [facility]179, 157.48, cm, 10/11/20 9:39:00 EDT, Height Start Date: 10/26/20 Status: Ordered Alcohol Pads See Instructions, # 200 each, Refills 11, Tot. Refills 11, Maintenance, To cleans before injections5 x a day., 03/03/21 9:18:00 EST, E11.65, Compound, 157.48, cm, 03/01/21 15:54:00 EST, Height Start Date: 03/03/21 Stop Date: 02/26/22 Status: Ordered Xfchq-Bjlvhr-Rbdp 300 mg oral capsule 1 capsule, By Mouth, 2 times a day, NOT COVERED., # 60 capsule, 11 Refills, [facility] 06203, 157.48, cm, 01/27/21 9:30:00 EDT, Height Start Date: 01/30/21 Status: Ordered ammonium lactate 12% topical cream 1 application, Topically, 2 times a day, # 385 Gm, 5 Refills, Maintenance, 12/19/20 14:08:00 EDT, Cream, [facility]/pharmacy #[id number], Partial fill upon patient request if the prescription is for a schedule IIopioid drug., 1 application Topically 2 times a day... Start Date: 12/19/20 Stop Date: 06/17/21 Status: Ordered aspirin 81 mg oral delayed release tablet 1 tablet, By Mouth, Daily, # 30 tablet, 11 Refills, Maintenance, 06/21/20 17:44:00 EDT, [facility] [address]45, 157.48, cm, 05/31/20 9:41:00 EST, Height Start Date: 06/21/20 Status: Ordered atorvastatin 80 mg oral tablet 1 tablet = 80 mg, By Mouth, Daily, replaces Simvastatin, # 90 tablet, 4 Refills, Maintenance, 06/02/21 14:22:00 EST, Tablet, [facility]/pharmacy #[id number], replaces simvastatin, 157.48, cm, 06/02/21 14:20:00 EST, Height Start Date: 06/02/21 Stop Date: 08/26/22 Status: Ordered capsaicin 0.075% topical cream See Instructions, APPLY TO AFFECTED AREA TWICE A DAY, # 57 Gm, 4 Refills, [facility], 30, APPLY TO AFFECTED AREA TWICE A DAY, 157.48, cm, 11/11/20 9:37:00 EDT, Height Start Date: 01/02/21 Status: Ordered Daily David oral tablet 1 tablet, By Mouth, Daily, INSTR:TAKE IT 2 HOURS SEPARATE FROM ORLISTAT ([place]IL[place]), # 30 tablet, 11 Refills, Maintenance, 08/19/20 16:26:00 EDT, [facility] [address], 30, TAKE 1 TABLET BY MOUTH DAILY. [...] 6 Refills, Maintenance, 09/02/20 12:50:00 EDT, Gel, [facility]/pharmacy #[id number], 157.48, cm, 05/31/20 9:41:00 [...] EVERY DAY, # 16 mL, 5 Refills, [facility], 30, USE 1 SPRAY IN EACH NOSTRIL [...] 3, Maintenance, use up to check blood [id number] per day. 90 DAY SUPPLY, E11.9, 03/03/21 [...] mL, 3 Refills, Maintenance, 05/09/21 10:32:00 EST, [facility], Partial fill upon pat... Start Date: 05/09/21 Status: Ordered Lantus Solostar Pen 100 units/mL subcutaneous solution See Instructions, Decreased to 60U once a day as of 12/29/19, # 30 mL, 9 Refills, Maintenance, 09/20/20 15:10:00 EDT, [facility], NEEDS 30 ML [...] 0 Refills, Maintenance, 12/19/20 14:08:00 EDT, Film, [facility]/pharmacy #[id number], Partial fill upon patient request if the prescription is for a schedule II opioid drug., 1 patch Topically Daily, 157.48, cm, 11/11/20 9:37:0... Start Date: 12/19/20 Status: Ordered losartan 50 mg oral tablet 1 tablet, By Mouth, Daily, # 30 tablet, 2 Refills, [facility] 19647, 157.48, cm, 05/05/21 9:51:00 EST, Height Start Date: 05/12/21 Status: Ordered mirtazapine 15 mg oral tablet 0 Refills, Maintenance, 06/02/21 14:25:00 EST, Partial fill upon patient request if the prescription is for a schedule II opioid drug. Start Date: 06/02/21 Status: Ordered omeprazole 20 mg oral enteric coated capsule 1 capsule, By Mouth, 2 times a day, # 60 capsule, 1 Refills, [facility] 54537, 157.48, cm, 06/02/21 14:20:00 EST, Height Start Date: 07/14/21 Status: Ordered oxyCODONE 10 mg oral tablet TAKE 1/2 TAB EVERY 12 HOURS NEEDED FOR SEVERE NECK/LOW BACK PAIN. DO NOT FILL UNTIL 05/01/21 Start Date: 06/02/21 Status: Ordered Pen Ogema, 31 G x 8 mm BD Ultra [...] OF 2, # 12 tablet, 7 Refills, [facility] ST[facility] 79090, 157.48, cm, 05/23/21 13:08:00 EST, Height Start Date: 06/02/21 Status: Ordered tiZANidine 4 mg oral capsule 1 capsule, By Mouth, 3 times a day, # 90 capsule, 3 Refills, [facility] 84552, 157.48, cm, 05/23/21 13:08:00 EST, Height Start Date: 06/01/21 Status: Ordered Topamax 25 mg oral tablet 2 tablet = 50 mg, By Mouth, Daily at bedtime, # 60 tablet, 6 Refills, Maintenance, 04/21/20 13:35:00 EST, Tablet, [facility]/pharmacy #4471, 157.48, cm, 03/04/20 14:14:00 EST, Height Start Date: 04/21/20 Stop Date: 11/17/20 Status: Ordered Trulicity Pen 1.5 mg/0.5 mL subcutaneous solution 0.5 mL = 1.5 mg, Subcutaneous Injection, Every Saturday, for 90 days, E11.9, # 7.5 mL, 3 Refills, Hard Stop 12/03/22 15:26:00 EDT, 12/08/21 15:26:00 EDT, Solution, [facility], E11.65, 157.48, cm, 03/04/20 14:14:00 EST, Height Start Date: 12/08/21 Stop Date: 12/03/22 Status: Ordered Trulicity Pen 3 mg/0.5 mL subcutaneous solution See Instructions, INJECT 0.5ML SUBCUTANEOUSLY EVERY WEEK, ROTATE INJECTION SITES, # 2 mL, 6 Refills, [facility], 157.48, cm, 06/02/21 14:20:00 EST, Height Start Date: 07/11/21 Status: Ordered Vascepa 1 g oral capsule 2 capsule = 2 Gm, By Mouth, 2 times a day, # 360 capsule, 5 Refills, Maintenance, 05/03/20 15:59:00EST, Capsule, [facility]/pharmacy #[id number], 157.48, cm, 03/04/20 [...] Active *Briana Garces, Care Coor dinator, ICP [phone](Confirmed) Active Reflux(Confirmed) Active Hepatic steatosis(Confirmed) Active 95645 -EF 60-65%. No wall motion abnormalities, Does [...]
--- OUTSIDE RECORDS SUMMARY | 2024-01-23 14:22 | XMS_ITS | Continuity of Care Document ---
Author Organization [facility] Address [address] [place] [address]- Care Team Providers Care Cleaning Staff Supervisor Name Role Phone Rose Mary FISCHER, Sergo Cole Primary Care Physician Encounter [facility] Date(s): 09/20/21 - 11/11/21 [facility] [address] [place], [place] [address] Attending Physician: Not on Staff, Attending MD Allergies, Adverse Reactions, Alerts Substance Reaction Severity Status morphine ITCH DIARRHEA Active trazodone DEPRESSION Active cortisone Active Ultram nausea, vomit Active Vioxx heart problems Active Motrin eat lining of stomach Active Naprosyn gi upset Active CeleBREX gi upset Active Neurontin mental status changes Active Latex [...] 6 01/21/08 Given Tet/Diphth/Acel, Pertussis (oldterm) 7 10/22/08 Gi lizzeth Influenza Vaccine (oldterm) 8 01/21/08 Given 1Result Comment: [01/22/2017] [facility] [id number] 2Admin Note: vis given dated 10/24/12 3Admin Note: vis given dated 10/01/11 4Admin Note: vis 5Admin Note: vis 6Admin Note: vis given: 10/27/2006 7Admin Note: vis given : 10/10/2005 8Admin Note: vis given 2007- Medications acetaminophen 500 mg oral tablet 2 tablet, By Mouth, 4 times a day, PRN NEEDED FOR PAIN, # 100 tablet, 1 Refills, Acute, 219:52:00 EDT, [facility], 157.48, cm, 10/11/20 9:39:00 EDT, Height Start Date: 10/26/20 Status: Ordered Alcohol Pads See Instructions, # 200 each, Refills 11, Tot. Refills 11, Maintenance, To cleans before injections5 x a day., 03/03/21 9:18:00 EST, E11.65, Compound, 157.48, cm, 03/01/21 15:54:00 EST, Height Start Date: 03/03/21 Stop Date: 02/26/22 Status: Ordered Kqphw-Jsqmkq-Zsff 300 mg oral capsule 1 capsule, By Mouth, 2 times a day, NOT COVERED., # 60 capsule, 11 Refills, [facility], 157.48, cm, 01/27/21 9:30:00 EDT, Height Start Date: 01/30/21 Status: Ordered ammonium lactate 12% topical cream 1 application, Topically, 2 times a day, # 385 Gm, 5 Refills, Maintenance, 09/08/21 9:35:00 EDT, [facility], [id number], Partial fill upon patient request if the prescription is for a schedule II opioid drug., 1 application Topically 2 times a day,... Start Date: 09/08/21 Stop Date: 03/07/22 Status: Ordered atorvastatin 80 mg oral tablet 1 tablet = 80 mg, By Mouth, Daily, replaces Simvastatin, # 90 tablet, 4 Refills, Maintenance, 06/02/21 14:22:00 EST, Tablet, [id number], replaces simvastatin, 157.48, cm, 06/02/21 14:20:00 EST, Height Start Date: 06/02/21 Stop Date: 08/26/22 Status: Ordered Daily David oral tablet 1 tablet, By Mouth, Daily, INSTR:TAKE IT 2 HOURS SEPARATE FROM ORLISTAT ([place]), # 30 tablet, 11 Refills, Maintenance, 08/19/20 16:26:00 EDT, [facility], 30, TAKE 1 TABLET BY MOUTH DAILY. [...] 6 Refills, Maintenance, 09/01/21 13:11:00 EDT, Gel, [facility]/pharmacy #[id number], 157.48, cm, 08/24/21 8:03:00 EDT, Height Start Date: 09/01/21 Stop Date: 03/30/22 Status: Ordered docusate sodium 100 mg oral capsule 100 mg, 1, capsule, By Mouth, 2 times a day, PRN, # 60 capsule, Refills 5, Tot. Refills 5, Maintenance, as needed for constipation, 11/10/21 9:17:00 EDT, Route to Pharmacy Electronically, [facility]/pharmacy #[id number], Partial fill upon patient request [...] EVERY DAY, # 16 mL, 5 Refills, [facility], 30, USE 1 SPRAY IN EACH NOSTRIL EVERY DAY, 157.48, cm, 11/11/20 9:37:00 EDT, Height Start Date: 12/26/20 Status: Ordered Lantus Solostar Pen 100 units/mL subcutaneous solution See Instructions, Take 80 units via Subcutaneous Infusion Daily at bedtime. E11.9., # 30 mL, 9 Refills, Maintenance, 08/24/21 9:25:00 EDT, [facility], Partial fill upon patient request if the prescription is for a schedule II opioid d... Start Date: 08/24/21 Status: Ordered Lantus Solostar Pen 100 units/mL subcutaneous solution See Instructions, Decreased to 60U once a day as of 12/29/19, # 30 mL, 9 Refills, Maintenance, 09/20/20 15:10:00 EDT, [facility], NEEDS 30 ML FOR 30 DAY SUPPLY E11.9, 157.48, cm, 05/31/20 9:41:00 EST, Height Start Date: 09/20/20 Status: Ordered lidocaine 5% topical ointment See Instructions, APPLY TO AFFECTED AREA 3 TIMES A DAY, # 35.44 Gm, 11 Refills, [facility], 30, APPLY TO AFFECTED AREA 3 TIMES A DAY, 157.5, cm, 11/07/21 10:51:00 EDT, Height Start Date: 11/09/21 Status: Ordered losartan 50 mg oral tablet 1 tablet, By Mouth, Daily, # 30 tablet, 2 Refills, [facility] 22514, 157.48, cm, 05/05/21 9:51:00 EST, Height Start Date: 05/12/21 Status: Ordered Lyrica 25 mg oral capsule See Instructions, 1 capsule By Mouth 1 time daily at bedtime. E11.9, # 30 each, 5 Refills, Maintenance, 09/18/21 12:21:00 EDT, Capsule, [facility]/pharmacy #[id number], Partial fill upon patient request if the prescription is for a schedule II opioid drug., 157.48... Start Date: 09/18/21 Status: Ordered mirtazapine 15 mg oral tablet 0 Refills, Maintenance, 06/02/21 14:25:00 EST, Partial fill upon patient request if the prescription is for a schedule II opioid drug. Start Date: 06/02/21 Status: Ordered oxyCODONE 10 mg oral tablet TAKE 1/2 TAB EVERY 12 HOURS NEEDED FOR SEVERE NECK/LOW BACK PAIN. DO NOT FILL UNTIL 05/01/21 Start Date: 06/02/21 Status: Ordered QUEtiapine 100 mg oral tablet TAKE 1 TABLET BY MOUTH EVERY DAY IN THE EVENING Start Date: 06/02/21 Status: Ordered SUMAtriptan 25 mg oral tablet 1 tablet, By Mouth, 3 times a day, PRN NEEDED FOR MIGRAINES, MAY RPT DOSE AFTER 2 HRS TO MAX OF 2, # 12 tablet, 7 Refills, [facility] 18[facility], 157.48, cm, 05/23/21 13:08:00 EST, Height Start Date: 06/02/21 Status: Ordered tiZANidine 4 mg oral capsule 1 capsule, By Mouth, 3 times a day, # 90 capsule, 3 Refills, [facility] 05[facility], 157.48, cm, 05/23/21 13:08:00 EST, Height Start Date: 06/01/21 Status: Ordered Topamax 25 mg oral tablet 2 tablet = 50 mg, By Mouth, Daily at bedtime, # 60 tablet, 6 Refills, Maintenance, 08/29/21 14:04:00 EDT, Tablet, [id number], 157.48, cm, 08/24/21 8:03:00 EDT, Height Start Date: 08/29/21 Stop Date: 03/27/22 Status: Ordered Trulicity Pen 3 mg/0.5 mL subcutaneous solution See Instructions, INJECT 0.5ML SUBCUTANEOUSLY EVERY WEEK, ROTATE INJECTION SITES, # 2 mL, 5 Refills, 08/24/21 9:20:00 EDT, [facility], 157.48, cm, 08/24/21 [...] II(Confirmed) Active Obesity(Confirmed) Active Obesity monitoring(Confirmed) Active SOTRMY (obstructive sleep apnea)(Confirmed) 4 Active Osteoarthritis, L knee mild tricompartmental(Confirmed) Active PAIN IN JOINT INVOLVING MULT IPLE SITES(Confirmed) Active History of DILIP positive fo r HSV(Confirmed) 5 02/20/10 Active *Briana Garces, Care Coor dinator, ICP [phone](Confirmed) Active Reflux(Confirmed) Active Hepatic steatosis(Confirmed) Active 78804 -EF 60-65%. No wall motion abnormalities, Does [...]
--- OUTSIDE RECORDS SUMMARY | 2024-01-23 14:22 | XMS_ITS | Continuity of Care Document ---
Author Organization [facility] Address [address] [place] [address]- Care Team Providers Care Rod Welder Name Role Phone Sergo Bazzi MD Primary Care Physician [phone] Encounter [facility] [place] Date(s): 07/17/23 - 11/14/23 [facility] [address], [place] [address] Attending Physician: Kerry Llanos MD Admitting Physician: Kerry Llanos MD Allergies, Adverse Reactions, Alerts Substance Reaction [...] 01/21/08 Given 1Result Comment: [01/22/2017] [facility] [place] 2] [id number] 2Admin Note: vis given dated 10/24/12 3Admin [...] 100 tablet, 1 Refills, Acute, 219:52:00 EDT, [email or web address], 157.48, cm, 10/11/20 9:39:00 EDT, Height Start [...] Date: 10/30/23 Stop Date: 10/24/24 Status: Ordered Kchmw-Dpaggz-Enak 300 mg oral capsule 1 capsule, By Mouth, 2 times a day, NOT COVERED., # 60 capsule, 11 Refills, [email or web address]33, 157.48, cm, 01/27/21 9:30:00 EDT, Height Start Date: 01/30/21 Status: Ordered ammonium lactate 12% topical cream 1 application, Topically, 2 times a day, # 385 Gm, 1 Refills, Maintenance, 12/22/22 14:16:00 EDT, Cream, [facility]/pharmacy #[id number], Partial fill upon patient request if the prescription is for a schedule IIopioid drug., 1 application Topically 2 times a day... Start Date: 12/22/22 Stop Date: 02/20/23 Status: Ordered Artificial Tears preserved solution 1 drops, Eyes, Both, 2 times a day, PRN for dry eyes, # 15 mL, 0 Refills, Maintenance, 09/10/23 8:57:00 EDT, Solution, [facility]/pharmacy #[id number], Partial fill upon patient request if the prescription is fora schedule II opioid drug., 1 drops Eyes, Both 2 ti... Start Date: 09/10/23 Status: Ordered atorvastatin 80 mg oral tablet See Instructions, TAKE 1 TABLET BY MOUTH DAILY. INSTR:REPLACES SIMVASTATIN, # 90 tablet, 1 Refills,Maintenance, 11/06/23 7:48:00 EDT, [email or web address], 157, cm, 10/18/23 11:52:00 EDT, Height, 84, kg,07/24/23 12:52:00 EDT, Dry Weight Start Date: 11/06/23 Status: Ordered atorvastatin 80 mg oral tablet 1 tablet, By Mouth, Daily, INSTR:REPLACES SIMVASTATIN, # 90 tablet, 1 Refills, Maintenance, 05/22/23 12:07:00 EST, [facility], 157, cm, 05/06/23 14:23:00 EST, Height, 88.3, kg, 04/16/23 11:33:00EST, Dry Weight Start Date: 05/22/23 Status: Ordered BD Single Use Swab 70% topical pad See Instructions, TO CLEANS BEFORE INJECTIONS 5 X A DAY., # 150 Unknown, 11 Refills, Maintenance, 08/16/22 10:15:00 EDT, [facility], 30, TO CLEANS BEFORE [...] tablet, 5 Refills, Maintenance, 11/06/23 17:25:00 EDT, [facility]/pharmacy #[id number], 1 tablet By Mouth Daily,Instr:SEPARATE [...] 02/07/24 10:46:00 EST, Route to Pharmacy Electronically, [facility]/pharmacy #[id number], Partial fill... Start Date: 02/07/24 Stop Date: 07/06/24 Status: Ordered diazepam 5 mg oral tablet 5 mg, 1, tablet, By Mouth, 2 times a day, for 30 days, TAKE 1 TABLET BY MOUTH TWICE A DAY., # 60 tablet, Refills 4, Tot. Refills 4, Acute 12/03/24 10:46:00 EDT, 07/06/24 10:46:00 EDT, Route to Pharmacy Electronically, [facility]/pharmacy #[id number], Partial fill... Start Date: 07/06/24 Stop Date: 12/03/24 Status: Ordered diazepam 5 mg oral tablet 5 mg, 1, tablet, By Mouth, 2 times a day, for 30 days, TAKE 1 TABLET BY MOUTH TWICE A DAY., # 60 tablet, Refills 4, Tot. Refills 4, Acute 02/07/24 10:46:00 EST, 09/10/23 10:46:00 EDT, Route to Pharmacy Electronically, [facility]/pharmacy #[id number], Partial fill... Start Date: 09/10/23 Stop Date: 02/07/24 Status: Ordered diclofenac 1% topical gel See Instructions, APPLY TOPICALLY 4 TIMES A DAY NOT TO EXCEED 16 GRAMS/DAY/SINGLE JOINT OF LOWER EXTREMITIES, # 100 Gm, 4 Refills, Maintenance, 09/10/23 8:56:00 EDT, [facility]/pharmacy #[id number], 30, APPLY TOPICALLY 4 TIMES [...] capsule, 5 Refills, Maintenance, 07/03/22 18:20:00 EDT, [facility]/pharmacy #[id number], Duplicate Rx. Original sent 07/03/22 with routing error. Re- sending to pharmacy, 157.5, cm... Start Date: 07/03/22 Status: Ordered esomeprazole 40 mg oral enteric coated capsule 1 capsule = 40 mg, By Mouth, Daily, # 90 capsule, 3 Refills, Maintenance, 09/25/23 16:33:00 EDT, [facility]/pharmacy #[id number], Partial fill upon patient request if the prescription is for a schedule II opioid drug., 157, cm, 09/25/23 16:26:00 EDT, Height, 84, k... Start Date: 09/25/23 Status: Ordered esomeprazole 40 mg oral enteric coated capsule 1 capsule = 40 mg, By Mouth, Daily, # 90 capsule, 1 Refills, Maintenance, 09/02/23 16:20:00 EDT, [facility]/pharmacy #[id number], Partial fill upon patient request [...] each, 0 Refills, Maintenance, 11/06/23 17:54:00 EDT, [facility]/pharmacy #[id number], 30, 1 puffs Inhalation 2 times a day, 157, cm, 10/18/23 11:52:00 EDT, Height, 84, kg,07/24/23 12:52:00 EDT, Dry Weight Start Date: 11/06/23 Status: Ordered fluticasone 50 mcg/inh nasal spray See Instructions, SPRAY 1 SPRAY INTO EACH NOSTRIL EVERY DAY, # 16 mL, 5 Refills, Maintenance, 11/06/23 17:54:00 EDT, [facility]/pharmacy #[id number], 30, SPRAY 1 SPRAY INTO [...] Start Date: 05/02/23 Status: Ordered FREESTYLE LANCETS [place] Miscellaneous FREESTYLE LANCETS [place] Miscellaneous, See Instructions, # 100 Unknown, 5 [...] tablet, 4 Refills, Maintenance, 11/06/23 17:54:00 EDT, [facility]/pharmacy #[id number], 157, cm, 10/18/23 11:52:00 EDT, [...] mL, 6 Refills, Maintenance, 07/24/23 13:20:00 EDT, [facility], Partial fill upon patient request if the prescription is for a schedule II opioid drug., 157, cm, 07/24/23 12:52:00... Start Date: 07/24/23 Status: Ordered hydrOXYzine hydrochloride 25 mg oral tablet 1 tablet = 25 mg, By Mouth, 2 times a day, as needed for anxiety, # 60 tablet, 4 Refills, Soft Stop, 02/07/24 10:47:00 EST, Tablet, [facility]/pharmacy #[id number], Partial fill upon patient request [...] 02/07/24 10:47:00 EST, 09/10/23 10:47:00 EDT, Tablet, [facility]/pharmacy #[id number], Partial fillupon patient request if the prescription is for a s... Start Date: 09/10/23 Stop Date: 02/07/24 Status: Ordered lactase 3000 u oral tablet 3 tablet, By Mouth, 3 times a day with meals, X30 DAYS., # 120 tablet, 3 Refills, Maintenance, 11/06/23 7:51:00 EDT, [facility]/pharmacy #[id number], 157, cm, 10/18/23 11:52:00 EDT, Height, 84, kg, 07/24/23 12:52:00 EDT, Dry Weight Start Date: 11/06/23 Status: Ordered Lantus Solostar Pen 100 units/mL subcutaneous solution See Instructions, Take 45 units in the AM and 45 units daily at bedtime. E11.9., # 30 mL, 9 Refills, Maintenance, 07/24/23 13:18:00 EDT, [facility], Partial fill upon patient requestif the prescription is for a schedule II opioid lucas... Start Date: 07/24/23 Status: Ordered levothyroxine 0.1 mg oral tablet 1 tablet = 100 mcg, By Mouth, Daily, # 30 tablet, 11 Refills, Maintenance, 07/25/23 8:52:00 EDT, [facility]/pharmacy #[id number], stop the 112mcg dose, 157, cm, 07/24/23 12:52:00 EDT, Height, 84, kg, 07/24/23 12:52:00 EDT, Dry Weight Start Date: 07/25/23 Stop Date: 07/19/24 Status: Ordered lidocaine 5% topical ointment See Instructions, APPLY TO AFFECTED AREA 3 TIMES A DAY, # 35.44 Gm, 3 Refills, Maintenance, 11/06/23 7:51:00 EDT, [facility]/pharmacy #[id number], 30, Duplicate Rx. Original sent 07/03/22 with routing error. Re-sending to pharmacy, APPLY TO AFFECTED AREA 3 TIMES A D... Start Date: 11/06/23 Status: Ordered lidocaine 5% topical ointment See Instructions, APPLY TO AFFECTED AREA 3 TIMES A DAY, # 35.44 Gm, 11 Refills, Maintenance, 02/28/22 8:51:00 EST, [facility]/pharmacy #[id number], 30, APPLY TO AFFECTED AREA [...] 2 Refills, Maintenance, 11/05/23 18:01:00 EDT, Capsule, [facility]/pharmacy #[id number], Partial fill upon patient request if the prescription is for a schedule II opioid drug., 157, c... Start Date: 11/05/23 Status: Ordered mirtazapine 15 mg oral tablet 1 tablet = 15 mg, By Mouth, Daily at bedtime, # 30 tablet, 4 Refills, Maintenance, 02/07/24 10:47:00 EST, Tablet, [facility]/pharmacy #[id number], Partial fill upon patient request if the prescription is for a schedule II opioid drug., 157, cm, 10/18/23 11:52:00 E... Start Date: 02/07/24 Stop Date: 07/06/24 Status: Ordered mirtazapine 15 mg oral tablet 1 tablet = 15 mg, By Mouth, Daily at bedtime, for 30 days, # 30 tablet, 4 Refills, Hard Stop 02/07/24 10:47:00 EST, 09/10/23 10:47:00 EDT, Tablet, [facility]/pharmacy #[id number], Partial fill upon patient request if the prescription is for a schedule II opioid drRodrigo.. Start Date: 09/10/23 Stop Date: 02/07/24 Status: Ordered Murine Ear Drops 6.5% solution See Instructions, INSTILL 5 DROPS INTO BOTH EARS TWICE DAILY FOR 7 DAYS, # 15 mL, 0 Refills, Maintenance, 09/30/23 10:01:00 EDT, [facility], 30, INSTILL 5 DROPS INTO BOTH EARS TWICE DAILY FOR 7 DAYS, 157, cm, 09/25/23 16:26:00 EDT, Height, 84, kg... Start Date: 09/30/23 Status: Ordered Narcan 4 mg/0.1 mL nasal spray = 4 mg, Nares, Both, Once, # 2 each, 2 Refills, Soft Stop, 02/22/23 14:30:00 EST, [facility]/pharmacy #[id number], Partial fill upon patient request if the prescription is for a schedule II opioid drug., 157.5, cm, 02/19/23 9:20:00 EST, Height Start Date: 02/22/23 Status: Ordered [place]-3 Fish Oil 1000 mg oral capsule 1 capsule = 1,000 mg, By Mouth, Daily, # 90 capsule, 1 Refills, Maintenance, 08/01/22 10:17:00 EDT,[facility]/pharmacy #[id number], Partial fill upon patient request if the prescription is for a schedule II opioid drug., 157.5, cm, 08/01/22 9:27:00 EDT, Height Start Date: 08/01/22 Status: Ordered omeprazole 20 mg oral delayed release tablet 1 tablet = 20 mg, By Mouth, 2 times a day, do not crush or chew, # 60 tablet, 2 Refills, Maintenance, 06/14/22 16:40:00 EDT, EC Tablet, [facility]/pharmacy #[id number], Partial fill upon patient request if the prescription is for a schedule II opioid drug., 157.5,... Start Date: 06/14/22 Status: Ordered ondansetron 4 mg oral tablet 1 tablet, By Mouth, Every 8 hours, PRN NEEDED FOR NAUSEA AND VOMITING FOR, # 30 tablet, 2 Refills, Maintenance, 07/03/23 14:40:00 EDT, [id number], 157, cm, 06/24/23 14:54:00 EDT, Height, 88.3, [...] mL, 11 Refills, Maintenance, 08/23/23 11:17:00 EDT, [facility], Partial fill upon patient request if... Start Date: 08/23/23 Status: Ordered Pen [place], 31 G x 8 mm BD Ultra [...] 02/07/24 10:47:00 EST, Route to Pharmacy Electronically, [facility]/pharmacy #[id number], Partial fill upon patient request if the prescription is for a schedule II opi... Start Date: 02/07/24 Stop Date: 07/06/24 Status: Ordered QUEtiapine 25 mg oral tablet 25 mg, 1, tablet, By Mouth, 2 times a day, for 30 days, # 60 tablet, Refills 4, Tot. Refills 4, Hard Stop 02/07/24 10:47:00 EST, 09/10/23 10:47:00 EDT, Route to Pharmacy Electronically, [facility]/pharmacy #[id number], Partial fill upon patient request if the pres... Start Date: 09/10/23 Stop Date: 02/07/24 Status: Ordered food and nutrition supervisor grabber tool food and nutrition supervisor grabber tool, See Instructions, # 1 each, Refills 0, Tot. Refills 0, Maintenance, please dispense one food and nutrition supervisor grabber tool, ICD 10 M54.6, length of [...] tablet, 10 Refills, Maintenance, 10/08/23 15:43:00 EDT, [facility], 157, cm, 09/25/23 16:26:00 EDT, Height, 84, kg, 07/24/23 12:52:00 EDT, Dry Weight Start Date: 10/08/23 Status: Ordered valACYclovir 500 mg oral tablet See Instructions, TAKE 1 TABLET BY MOUTH 2 TIMES A DAY,X3 DAYS, NEEDED FOR OUTBREAKS, # 6 tablet, Refills 0, Maintenance, 11/06/23 7:49:00 EDT, Instructions Replace Required Details, Route to Pharmacy Electronically, [id number], 157, cm, 10/17... 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 *Briana Garces, Special Education Tutor, ICP [phone] Confirmed Active PTSD (post-traumatic stress disorder) Confirmed [...] Name: Rose Mary FISCHER, Sergo Cole Position: [facility] Physician - Primary Care Member Role: PCP Address: Address: [address] [place] [id number]- Name: Lizbeth Collins [place] Position: [facility] Office Staff Member Role: Primary Care Nurse Care Team Related Persons Name: LB HENLEY Address: home [address] [address] Name: LB HENLEY Address: [address] [place] [address] Name: MILENA CUBA Address: home [address] [place] [address]
--- OUTSIDE RECORDS SUMMARY | 2024-01-23 14:22 | XMS_ITS | Continuity of Care Document ---
Author Organization [facility] Address [address] [place] [address]- Care Team Providers Care Production Administrator Name Role Phone Sergo Bazzi MD Primary Care Physician Encounter [facility] [place] Date(s): 10/22/22 - 11/21/22 [facility] [address] [place] [address]- [place] Allergies, Adverse Reactions, Alerts Substance Reaction Severity [...] (oldterm) 8 01/21/08 Given 1Result Comment: [01/22/2017] [facility] [id number] 2Admin Note: vis given dated 10/24/12 3Admin [...] 100 tablet, 1 Refills, Acute, 219:52:00 EDT, [facility] [address], 157.48, cm, 10/11/20 9:39:00 EDT, Height Start Date: 10/26/20 Status: Ordered Alcohol Pads See Instructions, # 200 each, Refills 11, Tot. Refills 11, Maintenance, To cleans before injections5 x a day., 03/03/21 9:18:00 EST, E11.65, Compound, 157.48, cm, 03/01/21 15:54:00 EST, Height Start Date: 03/03/21 Stop Date: 02/26/22 Status: Ordered Rpwnr-Ldrtmr-Polp 300 mg oral capsule 1 capsule, By Mouth, 2 times a day, NOT COVERED., # 60 capsule, 11 Refills, [facility] [address], 157.48, cm, 01/27/21 9:30:00 EDT, Height Start Date: 01/30/21 Status: Ordered ammonium lactate 12% topical cream 1 application, Topically, 2 times a day, # 385 Gm, 3 Refills, Maintenance, 08/24/22 14:16:00 EDT, Cream, [facility]/pharmacy #[id number], Partial fill upon patient request if the prescription is for a schedule IIopioid drug., 1 application Topically 2 times a day... Start Date: 08/24/22 Stop Date: 12/22/22 Status: Ordered atorvastatin 80 mg oral tablet 1 tablet = 80 mg, By Mouth, Daily, replaces Simvastatin, # 90 tablet, 4 Refills, Maintenance, 08/26/22 14:22:00 EDT, Tablet, [facility]/pharmacy #[id number], replaces simvastatin, 157.5, cm, 11/29/21 15:59:00 EDT, Height Start Date: 08/26/22 Stop Date: 11/19/23 Status: Ordered BD Single Use Swab 70% topical pad See Instructions, TO CLEANS BEFORE INJECTIONS 5 X A DAY., # 150 Unknown, 11 Refills, Maintenance, 08/16/22 10:15:00 EDT, [facility], 30, TO CLEANS BEFORE INJECTIONS 5 X A DAY., 157.5, cm, 08/01/22 9:27:00 EDT, Height Start Date: 08/16/22 Status: Ordered capsaicin 0.075% topical cream See Instructions, APPLY TO AFFECTED AREA TWICE A DAY, # 57 Gm, 4 Refills, Maintenance, 08/24/22 14:16:00 EDT, [facility]/pharmacy #[id number], 30, APPLY TO AFFECTED AREA TWICE [...] tablet, 11 Refills, Maintenance, 07/09/22 10:30:00 EDT, [facility]/pharmacy #[id number], 30, 1 tablet By Mouth Daily,Instr:INSTR:TAKE IT 2 HOURS SEPARATE FROM ORLISTAT ([place]), 157... Start Date: 07/09/22 Status: Ordered diazepam 10 mg oral tablet See Instructions, PRN, 1/2 tablet By Mouth in AM and 1 tab at HS, # 45 tablet, Refills 4, Tot. Refills 4, Maintenance, as needed for anxiety, 08/30/22 13:32:00 EDT, Instructions Replace Required Details, Route to Pharmacy Electronically, [facility]/pharmacy... Start Date: 08/30/22 Status: Ordered diclofenac 1% topical gel See Instructions, APPLY TOPICALLY 4 TIMES A DAY NOT TO EXCEED 16 GRAMS/DAY/SINGLE JOINT OF LOWER EXTREMITIES, # 100 Gm, 6 Refills, Maintenance, 08/24/22 14:16:00 EDT, [facility]/pharmacy #[id number], 30, APPLY TOPICALLY 4 TIMES A DAY NOT TO EXCEED 16 GRAMS/DAY/SIN... Start Date: 08/24/22 Status: Ordered docusate sodium 100 mg oral capsule See Instructions, TAKE 1 CAPSULE BY MOUTH TWICE A DAY NEEDED FOR CONSTIPATION, # 60 capsule, 5 Refills, Maintenance, 07/03/22 18:20:00 EDT, [facility]/pharmacy #[id number], Duplicate Rx. Original sent 07/03/22 with routing error. Re- sending to pharmacy, 157.5, cm... Start Date: 07/03/22 Status: Ordered docusate sodium 100 mg oral capsule 100 mg, 1, capsule, By Mouth, 2 times a day, PRN, # 60 capsule, Refills 5, Tot. Refills 5, Maintenance, as needed for constipation, 06/12/22 9:52:00 EDT, Route to Pharmacy Electronically, [facility]/pharmacy #[id number], Partial fill upon patient request if [...] Refills, Maintenance, 09/20/22 9:36:00 EDT, [facility], 30, INHALE 1 PUFF BY MOUTH TWICE A DAY, 157.5, cm, 09/05/22 16:22:00 EDT, Height Start Date: 09/20/22 Status: Ordered fluticasone 50 mcg/inh nasal spray See Instructions, SPRAY 1 SPRAY INTO EACH NOSTRIL EVERY DAY, # 16 mL, 5 Refills, Maintenance, 07/05/22 16:20:00 EDT, [facility], 30, SPRAY 1 SPRAY INTO EACH NOSTRIL [...] mL, 6 Refills, Maintenance, 06/12/22 10:00:00 EDT, [facility], Partial fill upon patie... Start Date: 06/12/22 Status: Ordered Lactaid 3000 units oral tablet 3 tablet = 9,000 units, By Mouth, 3 times a day with meals, # 120 tablet, 5 Refills, Maintenance, 08/17/22 9:03:00 EDT, Tablet, [facility]/pharmacy #[id number], Partial fill upon patient request if the prescription is for a schedule II opioid drug., 157.5, cm, ... Start Date: 08/17/22 Stop Date: 02/13/23 Status: Ordered Lantus Solostar Pen 100 units/mL subcutaneous solution See Instructions, Take 45 units in the AM and 45 units daily at bedtime. E11.9., # 30 mL, 9 Refills, Maintenance, 06/19/22 16:50:00 EDT, [facility], Partial fill upon patient requestif the [...] Gm, 11 Refills, Maintenance, 07/03/22 18:22:00 EDT, [facility]/pharmacy #[id number], 30, Duplicate Rx. Original sent 07/03/22 with routing error. Re-sending to pharmacy, APPLY TO AFFECTED AREA 3 TIMES A... Start Date: 07/03/22 Status: Ordered losartan 50 mg oral tablet 1 tablet, By Mouth, Daily, # 90 tablet, 1 Refills, Maintenance, 07/11/22 15:04:00 EDT, [facility]/pharmacy#[id number], 157.5, cm, 06/21/22 8:43:00 EDT, Height Start Date: 07/11/22 Status: Ordered Lyrica 25 mg oral capsule See Instructions, 1 capsule By Mouth 1 time daily at bedtime. E11.9, # 30 each, 5 Refills, Maintenance, 05/01/22 18:04:00 EST, Capsule, [facility]/pharmacy #[id number], Partial fill upon patient request if the prescription is for a schedule II opioid drug., 157.5,... Start Date: 05/01/22 Status: Ordered mirtazapine 15 mg oral tablet 1 tablet = 15 mg, By Mouth, Daily at bedtime, # 30 tablet, 4 Refills, Maintenance, 05/02/22 14:02:00 EST, Tablet, [facility]/pharmacy #[id number], Partial fill upon patient request if the prescription is for a schedule II opioid drug., 157.5, cm, 04/11/22 10:50:00... Start Date: 05/02/22 Stop Date: 09/29/22 Status: Ordered Nexium 40 mg oral enteric coated capsule 1 capsule = 40 mg, By Mouth, Daily, BRNAD NAME ONLY, # 90 capsule, 0 Refills, Maintenance, 10/18/2313:25:00 EDT, [facility]/pharmacy #[id number], Partial fill upon patient request if the prescription is for a schedule II opioid drug., 157.5, cm, 10/08/22 18:20:00... Start Date: 10/18/22 Stop Date: 01/16/23 Status: Ordered [place]-3 Fish Oil 1000 mg oral capsule 1 capsule = 1,000 mg, By Mouth, Daily, # 90 capsule, 1 Refills, Maintenance, 08/01/22 10:17:00 EDT,[facility]/pharmacy #[id number], Partial fill upon patient request if the prescription is for a schedule II opioid drug., 157.5, cm, 08/01/22 9:27:00 EDT, Height Start Date: 08/01/22 Status: Ordered omeprazole 20 mg oral delayed release tablet 1 tablet = 20 mg, By Mouth, 2 times a day, do not crush or chew, # 60 tablet, 2 Refills, Maintenance, 06/14/22 16:40:00 EDT, EC Tablet, [facility]/pharmacy #[id number], Partial fill upon patient request if the prescription is for a schedule II opioid drug., 157.5,... Start Date: 06/14/22 Status: Ordered oxyCODONE 10 mg oral tablet TAKE 1/2 TAB EVERY 12 HOURS NEEDED FOR SEVERE NECK/LOW BACK PAIN. DO NOT FILL UNTIL 05/01/21 Start Date: 06/02/21 Status: Ordered Pen [place], 31 G x 8 mm BD Ultra [...] 08/30/22 13:31:00 EDT, Route to Pharmacy Electronically, [facility]/pharmacy #[id number], Partial fill upon patient request if the prescription is for a schedule II opi... Start Date: 08/30/22 Stop Date: 01/27/23 Status: Ordered hydrogenation still operator grabber tool hydrogenation still operator grabber tool, See Instructions, # 1 each, Refills 0, Tot. Refills 0, Maintenance, please dispense one hydrogenation still operator grabber tool, ICD 10 M54.6, length of [...] 14:16:00 EDT, 08/24/22 14:16:00 EDT, Chew Tablet, [facility]/pharmacy #[id number], Partial fill upon patient request if the prescription is for a schedule II... Start Date: 08/24/22 Stop Date: 12/07/22 Status: Ordered SUMAtriptan 25 mg oral tablet 1 tablet, By Mouth, Daily, PRN NEEDED FOR MIGRAINES, for 30 days, MAY RPT DOSE AFTER 2 HRS TO MAX OF 2, # 12 tablet, 7 Refills, Physician Stop 12/15/22 14:36:00 EDT, 04/19/22 14:36:00 EST, [facility]/pharmacy #[id number], 157.5, cm, 04/11/22 10:50:00 EST, Height Start Date: 04/19/22 Stop Date: 12/15/22 Status: Ordered Topamax 25 mg oral tablet 3 tablet = 75 mg, By Mouth, Daily at bedtime, # 90 tablet, 6 Refills, Maintenance, 06/26/22 10:14:00 EDT, Tablet, [facility], 157.5, cm, 06/21/22 8:43:00 EDT, Height Start Date: 06/26/22 Stop Date: 01/22/23 Status: Ordered Trulicity Pen 4.5 mg/0.5 mL subcutaneous solution See Instructions, INJECT 4.5 MG SUBCUTANEOUSLY ONCE A WEEK, # 2 mL, 5 Refills, Maintenance, 11/21/22 8:33:00 EDT, [facility], 157.5, cm, 11/16/22 13:50:00 EDT, Height Start Date: 11/21/22 Status: Ordered valACYclovir 500 mg oral tablet 1, tablet, By Mouth, 2 times a day, PRN, # 6 tablet, Refills 2, Maintenance, NEEDED FOR OUTBREAKS, 07/11/22 16:11:00 EDT, Route to Pharmacy Electronically, [id number], 157.5, cm, 06/21/22 8:43:00 EDT, Height Start [...] each, 0 Refills, Maintenance, 09/17/22 15:25:00 EDT, [facility] [address], 157.5, cm, 09/05/22 16:22:00 EDT, Height Start [...] 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 No wall motion abnormalities, Does [...] Name: Rose Mary FISCHER, Sergo Cole Position: [facility] Physician - Primary Care Member Role: PCP Address: Address: [address] [facility] [place] [address]- Name: Lizbeth Collins [place] Position: [facility] RN Member Role: Primary Care Nurse Care Team Related Persons Name: LB HENLEY Address: home [address] [address] Name: LB HENLEY Address: home [address] [place] [address] Name: MILENA CUBA Address: home [address] [place] [address]
--- OUTSIDE RECORDS SUMMARY | 2024-01-23 14:22 | XMS_ITS | Continuity of Care Document ---
Author Organization [facility] Adult Medicine Address [address] [place] [address]- Care Team Providers Care Transcripter Name Role Phone Rose Mary FISCHER, Sergo Cole Primary Care Physician Encounter [facility] Date(s): 11/10/19 - 12/10/19 [facility] Adult [facility] [address] [place] [address]- [facility] Allergies, Adverse Reactions, Alerts Substance Reaction Severity Status morphine ITCH DIARRHEA Active trazodone DEPRESSION Active cortisone Active Motrin eat lining of stomach Active Naprosyn gi upset Active Neurontin mental status changes Active Ultram nausea, vomit Active Vioxx heart problems Active Latex powder eats up skin Active CeleBREX gi upset Active Immunizations Given and Recorded Vaccine Date Status Refusal Reason influenza virus vaccine, inactivated 02/16/19 Give n [...] (oldterm) 8 01/21/08 Given 1Result Comment: [01/22/2017] [facility] [place] [id number] 2Admin Note: vis given dated 10/24/12 3Admin [...] mL, 5 Refills, Maintenance, 09/02/19 13:54:00 EDT, [facility], E11.9, 157.48, cm, 04/27/19 15:43:... Start Date: 09/02/19 Status: Ordered Alcohol Pads See Instructions, # 200 each, Refills 11, Tot. Refills 11, Maintenance, To cleans before injections5 x a day., 05/29/19 9:49:19 EST, E11.65, Compound Start Date: 05/29/19 Stop Date: 06/28/19 Status: Ordered Alcohol Pads See Instructions, for 30 days, # 200 each, Refills 12, Tot. Refills 12, Hard Stop 04/02/20 14:49:47EST, To cleans before injections 5 x a day., 03/09/19 14:49:47 EST, E11.65, Compound, 157.48, cm, 02/16/19 14:48:58 EST, Height Start Date: 03/09/19 Stop Date: 04/02/20 Status: Ordered Artificial Tears preserved solution 2 drops, Eyes, Both, 2 times a day, PRN for dry eyes, # 15 mL, 3 Refills, Maintenance, 02/16/19 15:03:08 EST, Solution, 2 drops Eyes, Both 2 times a day,PRN:for dry eyes Start Date: 02/16/19 Status: Ordered aspirin 81 mg oral delayed release tablet 1 tablet, By Mouth, Daily, # 30 tablet, 5 Refills, Maintenance, 05/05/19 11:32:00 EST, [id number], 157.48, cm, 04/27/19 15:43:00 EST, Height Start Date: 05/05/19 Status: Ordered atorvastatin 80 mg oral tablet 1 tablet = 80 mg, By Mouth, Daily, replaces Simvastatin, # 90 tablet, 1 Refills, Maintenance, 06/22/19 15:26:00 EDT, Tablet, [facility]/pharmacy #[id number], replaces simvastatin, 157.48, cm, 04/27/19 15:43:00 EST, Height Start Date: 06/22/19 Stop Date: 12/19/19 Status: Ordered BD ultra fine III pen needles [id number] BD ultra fine III pen needles [id number], See Instructions, # 360 each, Refills 3, [...] 60 Gm, 4 Refills, Acute, [id number], 30, APPLY TO AFFECTED AREA TWICE A DAY, 157.48, cm, 04/27/19 15:43:00 EST, Height Start Date: 12/09/19 Status: Ordered cetirizine 10 mg oral tablet See Instructions, TAKE 1 TABLET BY MOUTH EVERY DAY, # 30 tablet, 0 Refills, Maintenance, 01/08/19 11:23:26 EDT, [facility] Start Date: 01/08/19 Status: Ordered diazepam 5 mg oral tablet Refills 0, Maintenance, 05/30/17 11:18:02 Start Date: 05/30/17 Status: Ordered diclofenac 1% topical gel 1 application, Topically, 4 times a day, not to exceed 16 grams/day/single joint of lower extremities, # 100 Gm, 6 Refills, Maintenance, 08/14/19 8:50:00 EDT, Gel, [facility]/pharmacy #[id number], 157.48, cm, 04/27/19 15:43:00 EST, Height Start Date: 08/14/19 Stop Date: 03/11/20 Status: Ordered disposable bed liners, chuckpads disposable bed liners, chuckpads, See Instructions, # 180 each, Refills 11, Tot. Refills 11, Maintenance, DX urinary incontinence use as directed for home care Dx: Incontinence R32 Size LARGE, no powder ANABEL: 1 year, 03/13/19 10:40:47 EST, Compound Start Date: 03/13/19 Status: Ordered docusate sodium 100 mg oral tablet 1 tablet = 100 mg, By Mouth, 2 times a day, PRN for constipation, # 60 tablet, 2 Refills, Maintenance, 11/13/19 18:59:00 EDT, Tablet, [facility], 157.48, cm, 04/27/19 15:43:00 EST, Height Start Date: 11/13/19 Stop Date: 02/11/20 Status: Ordered fentanyl 12 mcg/hr transdermal film, extended release 1 patch, Topically, Every 72 hours, 0 Refills, Maintenance, 02/16/19 14:50:52 EST, Patch, Partial fill upon patient request Start Date: 02/16/19 Status: Ordered fluticasone 50 mcg/inh nasal spray 1 sprays, Nares, Both, Daily, in each nostril, # 16 Gm, 1 Refills, Maintenance, 12/10/19 12:46:00 EDT, [facility]/pharmacy #[id number], 1 sprays Nares, Both Daily,x30 [...] 3, Maintenance, use up to check blood [id number] per day. 90 DAY SUPPLY, E11.9, 08/21/19 8:39:00 EDT, E11.9, Compound, 157.48, cm, 04/27/19 15:43:00 EST, Height Start Date: 08/21/19 Stop Date: 08/15/20 Status: Ordered Gloves See Instructions, # 2 each, Refills 11, Tot. Refills 11, Maintenance, use as directed for home careDx: Incontinence R32 Size LARGE, no powder ANABEL: 1 year, incontinence, 03/13/19 10:40:57 EST Start Date: 03/13/19 Status: Ordered heating pad heating pad, See Instructions, # 1 each, Refills 0, Tot. Refills 0, Maintenance, m77.50 tendonititsuse in 10-15 min intervals with ice do not leave on for risk of foot injury tendonitis, 12/08/19 9:56:00 EDT, Supply Start Date: 12/08/19 Status: Ordered lactase 3000 u oral tablet See Instructions, PRN Other, 1 tablet as needed when eating dairy products, # 30 tablet, 1 Refills,Maintenance, 03/11/19 11:54:50 EST, Tablet, 157.48, cm, 03/09/19 15:46:55 EST, Height Start Date: 03/11/19 Status: Ordered Lantus Solostar Pen 100 units/mL subcutaneous solution See Instructions, 45 UNITS AM, 45 UNITS BEDTIME., # 30 mL, 11 Refills, Maintenance, 09/02/19 13:55:00 EDT, [facility], NEEDS 30 ML FOR 30 DAY SUPPLY E11.9, 157.48, cm, 04/27/19 15:43:00 EST, Height Start Date: 09/02/19 Status: Ordered Large Adult size pull ups Large Adult size pull ups, See Instructions, # 180 each, Refills 11, Tot. Refills 11, Maintenance, Dx: urinary incontinence R32 Weight: 95.68kg Height: 157.48cm ANABEL: 1 year, 03/13/19 10:40:47 EST, Compound Start Date: 03/13/19 Status: Ordered lidocaine 5% topical ointment 1 application, Topically, 3 times a day, # 50 Gm, 11 Refills, Maintenance, 05/15/19 15:00:00 EST, Ointment, [facility]/pharmacy #[id number], 1 application Topically 3 times a day,x30 days, 157.48, cm, 04/27/19 15:43:00 EST, Height Start Date: 05/15/19 Stop Date: 05/09/20 Status: Ordered losartan 50 mg oral tablet 50 mg, 1, tablet, By Mouth, Daily, can substitute 25mg tabs x2 if needed, # 30 tablet, Refills 5, Tot. Refills 5, Maintenance, 06/22/19 15:26:00 EDT, Route to Pharmacy Electronically, [facility]/pharmacy #[id number], 157.48, cm, 04/27/19 15:43:00 EST, Height Start Date: 06/22/19 Stop Date: 12/19/19 Status: Ordered mirtazapine 15 mg oral tablet [...] request Start Date: 02/16/19 Status: Ordered Pen [place], 31 G x 8 mm BD Ultra Fine III See Instructions, # 450 each, Refills 5, Tot. Refills 5, Maintenance, 5 X A DAY INJECTIONS, 90 DY SUPPLY, 09/02/19 13:55:00 EDT, EE11.9, Compound, 157.48, cm, 04/27/19 15:43:00 EST, Height Start Date: 09/02/19 Status: Ordered QUEtiapine 25 mg oral tablet TAKE 1 TABLET BY MOUTH TWICE A DAY Start Date: 10/14/18 Status: Ordered Topamax 25 mg oral tablet 2 tablet = 50 mg, By Mouth, Daily at bedtime, # 60 tablet, 2 Refills, Maintenance, 02/17/19 11:58:08 EST, Tablet Start Date: 02/17/19 Stop Date: 05/18/19 Status: Ordered Trulicity Pen 1.5 mg/0.5 mL subcutaneous solution 0.5 mL = 1.5 mg, Subcutaneous Injection, Every Saturday, # 7.5 mL, 3 Refills, Maintenance, 12/13/20 15:26:00 EDT, Solution, [facility], E11.65, 157.48, cm, 04/27/19 [...] Date: 06/22/19 Stop Date: 12/13/20 Status: Ordered Tylenol Extra Strength 500 mg oral tablet 2 tablet = 1,000 mg, By Mouth, Every 6 hours, PRN as needed for pain, # 100 tablet, 0 Refills, Maintenance, 06/13/17 14:23:00, Tablet Start Date: 06/13/17 Status: Ordered Problem List Condition Effective Dates [...] pain NOS(Confirmed) 3 Active Migraine(Confirmed) 01/05/11 Active Obesity monitoring(Confirmed) Active STORMY (obstructive sleep apnea)(Confirmed) 4 Active PAIN IN JOINT INVOLVING MULT IPLE SITES(Confirmed) Active History of DILIP positive fo r HSV(Confirmed) 5 02/20/10 Active *Briana Garces, Care Coor dinator, ICP [phone](Confirmed) Active Reflux(Confirmed) Active 52622 -EF 60-65%. No wall motion abnormalities, Does [...]
--- OUTSIDE RECORDS SUMMARY | 2024-01-23 14:22 | XMS_ITS | Continuity of Care Document ---
Author Organization [facility] Adult Medicine Address [address] [place] [address]- Care Team Providers Care Umbrella Mender Name Role Phone Sergo Bazzi MD Primary Care Physician [phone] [place] [facility] [place] 03/11/23 - 04/10/23 [facility] [address], [place] [address] Allergies, Adverse Reactions, Alerts Substance Reaction [...] (oldterm) 8 01/21/08 Given 1Result Comment: [01/22/2017] [facility] [id number] 2Admin Note: vis given dated 10/24/12 3Admin [...] 100 tablet, 1 Refills, Acute, 219:52:00 EDT, [facility], 157.48, cm, 10/11/20 9:39:00 EDT, Height Start Date: 10/26/20 Status: Ordered Alcohol Pads See Instructions, # 200 each, Refills 11, Tot. Refills 11, Maintenance, To cleans before injections5 x a day., 03/03/21 9:18:00 EST, E11.65, Compound, 157.48, cm, 03/01/21 15:54:00 EST, Height Start Date: 03/03/21 Stop Date: 02/26/22 Status: Ordered Oevro-Aiferr-Vqpd 300 mg oral capsule 1 capsule, By Mouth, 2 times a day, NOT COVERED., # 60 capsule, 11 Refills, [id number], 157.48, cm, 01/27/21 9:30:00 EDT, Height Start Date: 01/30/21 Status: Ordered ammonium lactate 12% topical cream 1 application, Topically, 2 times a day, # 385 Gm, 1 Refills, Maintenance, 12/22/22 14:16:00 EDT, Cream, [facility]/pharmacy #[id number], Partial fill upon patient request if the prescription is for a schedule IIopioid drug., 1 application Topically 2 times a day... Start Date: 12/22/22 Stop Date: 02/20/23 Status: Ordered atorvastatin 80 mg oral tablet 1 tablet = 80 mg, By Mouth, Daily, replaces Simvastatin, # 90 tablet, 1 Refills, Maintenance, 11/19/23 14:22:00 EDT, Tablet, [facility]/pharmacy #[id number], replaces simvastatin, 157.5, cm, 11/26/22 14:11:00 EDT, Height Start Date: 11/19/23 Stop Date: 05/17/24 Status: Ordered BD Single Use Swab 70% topical pad See Instructions, TO CLEANS BEFORE INJECTIONS 5 X A DAY., # 150 Unknown, 11 Refills, Maintenance, 08/16/22 10:15:00 EDT, [facility], 30, TO CLEANS BEFORE INJECTIONS 5 X A DAY., 157.5, cm, 08/01/22 9:27:00 EDT, Height Start Date: 08/16/22 Status: Ordered capsaicin 0.075% topical cream See Instructions, APPLY TO AFFECTED AREA TWICE A DAY, # 57 Gm, 4 Refills, Maintenance, 08/24/22 14:16:00 EDT, [facility]/pharmacy #[id number], 30, APPLY TO AFFECTED AREA TWICE A DAY, 157.5, cm, 08/01/22 9:27:00 EDT, Height Start Date: 08/24/22 Status: Ordered CPAP Machine See Instructions, # [...] tablet, 11 Refills, Maintenance, 07/09/22 10:30:00 EDT, [facility]/pharmacy #[id number], 30, 1 tablet By Mouth Daily,Instr:INSTR:TAKE IT 2 HOURS SEPARATE FROM ORLISTAT ([place]), 157... Start Date: 07/09/22 Status: Ordered diazepam 5 mg oral tablet TAKE 1 TABLET BY MOUTH TWICE A DAY. PA REQUIRED Start Date: 03/18/23 Status: Ordered diclofenac 1% topical gel See Instructions, APPLY TOPICALLY 4 TIMES A DAY NOT TO EXCEED 16 GRAMS/DAY/SINGLE JOINT OF LOWER EXTREMITIES, # 100 Gm, 1 Refills, Maintenance, 12/14/22 6:14:00 EDT, [facility]/pharmacy #[id number], 30, APPLY TOPICALLY 4 TIMES A DAY NOT TO EXCEED 16 GRAMS/DAY/SING... Start Date: 12/14/22 Status: Ordered docusate sodium 100 mg oral capsule See Instructions, TAKE 1 CAPSULE BY MOUTH TWICE A DAY NEEDED FOR CONSTIPATION, # 60 capsule, 5 Refills, Maintenance, 07/03/22 18:20:00 EDT, [facility]/pharmacy #[id number], Duplicate Rx. Original sent 07/03/22 with routing error. Re- sending to pharmacy, 157.5, cm... Start Date: 07/03/22 Status: Ordered docusate sodium 100 mg oral capsule 100 mg, 1, capsule, By Mouth, 2 times a day, PRN, # 60 capsule, Refills 5, Tot. Refills 5, Maintenance, as needed for constipation, 06/12/22 9:52:00 EDT, Route to Pharmacy Electronically, [facility]/pharmacy #[id number], Partial fill upon patient request if the pr... Start Date: 06/12/22 Status: Ordered esomeprazole 40 mg oral enteric coated capsule 1 capsule = 40 mg, By Mouth, Daily, # 90 capsule, 1 Refills, Maintenance, 03/07/23 13:32:00 EST, [facility]/pharmacy #[id number], Partial fill upon patient request if the prescription is for a schedule II opioid drug., 157.5, cm, 02/19/23 9:20:00 EST, Height Start Date: 03/07/23 Status: Ordered fentaNYL 25 mcg/hr transdermal film, extended release APPLY 1 PATCH EVERY 72 HOURS. DO NOT FILL UNTIL 05/01/21. OK TO PARTIAL FILL UPON REQUEST. Start Date: 06/02/21 Status: Ordered Flovent Diskus 50 mcg/inh inhalation powder 1 puffs, Inhalation, 2 times a day, # 60 each, 0 Refills, Maintenance, 09/20/22 9:36:00 EDT, [facility], 30, INHALE 1 PUFF BY MOUTH TWICE A DAY, 157.5, cm, 09/05/22 16:22:00 EDT, Height Start Date: 09/20/22 Status: Ordered fluticasone 50 mcg/inh nasal spray See Instructions, SPRAY 1 SPRAY INTO EACH NOSTRIL EVERY DAY, # 16 mL, 5 Refills, Maintenance, 07/05/22 16:20:00 EDT, [facility], 30, SPRAY 1 SPRAY INTO EACH NOSTRIL [...] Date: 03/22/22 Stop Date: 09/18/22 Status: Ordered FREESTYLE LANCETS MISC Miscellaneous FREESTYLE LANCETS MIS Miscellaneous, See Instructions, # 100 Unknown, 5 [...] Date: 06/19/22 Stop Date: 03/16/23 Status: Ordered Gas Relief Extra Strength 125 mg oral tablet, chewable See Instructions, CHEW 1 TABLET BY MOUTH 4 TIMES A DAY FOR 21 DAYS NEEDED FOR GAS, # 48 tablet, 4 Refills, Maintenance, 03/11/23 15:50:00 EST, [id number], 157.5, cm, 02/19/23 9:20:00 EST, Height Start Date: 03/11/23 Status: Ordered hospital bed mattress replacement hospital [...] mL, 6 Refills, Maintenance, 11/26/22 14:55:00 EDT, [facility], Partial fill upon patie... Start Date: 11/26/22 Status: Ordered influenza virus vaccine, inactivated adjuvanted preservative-free quadrivalent intramuscular susp 0.5 mL, Intramuscular, Once, # 0.5 mL, 0 Refills, Soft Stop, 02/19/23 9:44:00 EST, Suspension, Partial fill upon patient request if the prescription is for a schedule II opioid drug. Start Date: 02/19/23 Status: Ordered Lactaid 3000 units oral tablet 3 tablet = 9,000 units, By Mouth, 3 times a day with meals, # 120 tablet, 5 Refills, Maintenance, 08/17/22 9:03:00 EDT, Tablet, [facility]/pharmacy #[id number], Partial fill upon patient request if the prescription is for a schedule II opioid drug., 157.5, cm, ... Start Date: 08/17/22 Stop Date: 02/13/23 Status: Ordered Lantus Solostar Pen 100 units/mL subcutaneous solution See Instructions, Take 45 units in the AM and 45 units daily at bedtime. E11.9., # 30 mL, 9 Refills, Maintenance, 11/26/22 14:55:00 EDT, [facility], Partial fill upon patient requestif the prescription is for a schedule II opioid lucas... Start Date: 11/26/22 Status: Ordered lidocaine 5% topical ointment See Instructions, APPLY TO AFFECTED AREA 3 TIMES A DAY, # 35.44 Gm, 11 Refills, Maintenance, 02/28/22 8:51:00 EST, [facility]/pharmacy #[id number], 30, APPLY TO AFFECTED AREA 3 TIMES A DAY, 157.5, cm, 02/21/22 14:36:00 EST, Height Start Date: 02/28/22 Status: Ordered lidocaine 5% topical ointment See Instructions, APPLY TO AFFECTED AREA 3 TIMES A DAY, # 35.44 Gm, 11 Refills, Maintenance, 07/03/22 18:22:00 EDT, [facility]/pharmacy #[id number], 30, Duplicate Rx. Original sent 07/03/22 with routing error. Re-sending to pharmacy, APPLY TO AFFECTED AREA 3 TIMES A... Start Date: 07/03/22 Status: Ordered losartan 50 mg oral tablet 1 tablet, By Mouth, Daily, # 90 tablet, 1 Refills, Maintenance, 07/11/22 15:04:00 EDT, [facility]/pharmacy#[id number], 157.5, cm, 06/21/22 8:43:00 EDT, Height Start Date: 07/11/22 Status: Ordered losartan 50 mg oral tablet See Instructions, TAKE 1 TABLET BY MOUTH EVERY DAY, # 90 tablet, 1 Refills, Maintenance, 03/11/23 15:50:00 EST, [id number], 157.5, cm, 02/19/23 9:20:00 EST, Height Start Date: 03/11/23 Status: Ordered Lyrica 25 mg oral capsule See Instructions, 1 capsule By Mouth 1 time daily at bedtime. E11.9, # 30 each, 5 Refills, Maintenance, 01/21/23 15:40:00 EDT, Capsule, [facility]/pharmacy #[id number], Partial fill upon patient request if the prescription is for a schedule II opioid drug., 157.5,... Start Date: 01/21/23 Status: Ordered mirtazapine 15 mg oral tablet 1 tablet = 15 mg, By Mouth, Daily at bedtime, # 30 tablet, 4 Refills, Maintenance, 12/06/22 13:07:00 EDT, Tablet, [facility]/pharmacy #[id number], Partial fill upon patient request if the prescription is for a schedule II opioid drug., 157.5, cm, 11/26/22 14:11:00... Start Date: 12/06/22 Stop Date: 05/05/23 Status: Ordered Narcan 4 mg/0.1 mL nasal spray = 4 mg, Nares, Both, Once, # 2 each, 2 Refills, Soft Stop, 02/22/23 14:30:00 EST, [facility]/pharmacy #[id number], Partial fill upon patient request if the prescription is for a schedule II opioid drug., 157.5, cm, 02/19/23 9:20:00 EST, Height Start Date: 02/22/23 Status: Ordered Hayden-3 Fish Oil 1000 mg oral capsule 1 capsule = 1,000 mg, By Mouth, Daily, # 90 capsule, 1 Refills, Maintenance, 08/01/22 10:17:00 EDT,[facility]/pharmacy #[id number], Partial fill upon patient request if the prescription is for a schedule II opioid drug., 157.5, cm, 08/01/22 9:27:00 EDT, Height Start Date: 08/01/22 Status: Ordered omeprazole 20 mg oral delayed release tablet 1 tablet = 20 mg, By Mouth, 2 times a day, do not crush or chew, # 60 tablet, 2 Refills, Maintenance, 06/14/22 16:40:00 EDT, EC Tablet, [facility]/pharmacy #[id number], Partial fill upon patient request if the prescription is for a schedule II opioid drug., 157.5,... Start Date: 06/14/22 Status: Ordered oxyCODONE 10 mg oral tablet TAKE 1/2 TAB EVERY 12 HOURS NEEDED FOR SEVERE NECK/LOW BACK PAIN. DO NOT FILL UNTIL 05/01/21 Start Date: 06/02/21 Status: Ordered Pen [place], 31 G x 8 mm BD Ultra [...] 12/06/22 13:08:00 EDT, Route to Pharmacy Electronically, [facility]/pharmacy #[id number], Partial fill upon patient request if the prescription is for a schedule II opi... Start Date: 12/06/22 Stop Date: 05/05/23 Status: Ordered utility worker roller shop grabber tool utility worker roller shop grabber tool, See Instructions, # 1 each, Refills 0, Tot. Refills 0, Maintenance, please dispense one utility worker roller shop grabber tool, ICD 10 M54.6, length of use 1 month, 04/12/22 10:13:00 EST, Supply Start Date: 04/12/22 Status: Ordered replacement hospital bed with mattress replacement hospital bed with mattress, See Instructions, # 1 each, Refills 0, Tot. Refills 0, Maintenance, please dispense 1 replacement hospital bed wt mattreveronica, DX G89.4, length of use lifetime, 06/20/22 14:20:00 EDT, Supply Start Date: 06/20/22 Status: Ordered topiramate 25 mg oral tablet 3 tablet, By Mouth, Daily at bedtime, # 90 tablet, 10 Refills, Maintenance, 01/17/23 8:54:00 EDT, [facility], 157.5, cm, 12/28/22 15:12:00 EDT, Height Start Date: 01/17/23 Status: Ordered Trulicity Pen 4.5 mg/0.5 mL subcutaneous solution See Instructions, INJECT 4.5 MG SUBCUTANEOUSLY ONCE A WEEK, # 2 mL, 5 Refills, Maintenance, 11/21/22 8:33:00 EDT, [facility], 157.5, cm, 11/16/22 13:50:00 EDT, Height Start Date: 11/21/22 Status: Ordered valACYclovir 500 mg oral tablet 1, tablet, By Mouth, 2 times a day, PRN, # 6 tablet, Refills 1, Maintenance, NEEDED FOR OUTBREAKS, 04/10/23 8:50:00 EST, Route to Pharmacy Electronically, [id number], 157.5, cm, 03/18/23 11:17:00 EST, Height Start Date: 04/10/23 Status: Ordered Vascepa 1 g oral capsule 2 capsule = 2 Gm, By Mouth, 2 times a day, # 360 capsule, 5 Refills, Maintenance, 05/03/20 15:59:00EST, Capsule, [facility]/pharmacy #[id number], 157.48, cm, 03/04/20 14:14:00 EST, Height Start Date: 05/03/20 Status: Ordered Ventolin HFA 108 mcg/inh inhalation aerosol with adapter 1 puffs, Inhalation, 4 times a day, PRN NEEDED FOR WHEEZING, # 18 each, 0 Refills, Maintenance, 09/17/22 15:25:00 EDT, [facility] 47167, 157.5, cm, 09/05/22 16:22:00 EDT, Height Start [...] 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 *Briana Garces, Respiratory Equipment Assistant, ICP [phone] Confirmed Active PTSD (post-traumatic stress disorder) Confirmed Active Reflux Confirmed Active Severe obesity (BMI 35.0-39.9) with comorbidity Confirmed Active Hepatic steatosis Confirmed Active Tubular adenoma of colon Confirmed Active 86830 -EF 60-65%. No wall motion abnormalities, Does [...] Team Personnel Name: Sergo Bazzi MD Position: [facility] Physician - Primary Care Member Role: PCP Address: Address: [address] [place] [address] [place] [address]- Name: Lizbeth Collins [place] Position: [facility] RN Member Role: Primary Care Nurse Care Team Related Persons Name: KALE, LB Address: home [address] [place] [address] Name: LB HENLEY Address: home [address] [address] Name: MILENA CUBA Address: home [address] [place] [address]
--- OUTSIDE RECORDS SUMMARY | 2024-01-23 14:23 | XMS_ITS | Continuity of Care Document ---
Author Organization [facility] Address [address] [place] [address]- Care Team Providers Care Educational Program Assistant Name Role Phone Sergo Bazzi MD Primary Care Physician [phone] [place] [facility] [place] 07/01/23 [facility] [address] [place] [address]- Allergies, Adverse Reactions, Alerts Substance Reaction Severity [...] Given 1Result Comment: [01/22/2017] [facility] [id number] 2Admin Note: vis given dated 10/24/12 3Admin [...] 100 tablet, 1 Refills, Acute, 219:52:00 EDT, [id number], 157.48, cm, 10/11/20 9:39:00 EDT, Height Start [...] Date: 03/03/21 Stop Date: 02/26/22 Status: Ordered Vbcqf-Nvsbkh-Xtjn 300 mg oral capsule 1 capsule, By Mouth, 2 times a day, NOT COVERED., # 60 capsule, 11 Refills, [id number], 157.48, cm, 01/27/21 9:30:00 EDT, Height Start Date: 01/30/21 Status: Ordered ammonium lactate 12% topical cream 1 application, Topically, 2 times a day, # 385 Gm, 1 Refills, Maintenance, 12/22/22 14:16:00 EDT, Cream, [facility]/pharmacy #[id number], Partial fill upon patient request if the prescription is for a schedule IIopioid drug., 1 application Topically 2 times a day... Start Date: 12/22/22 Stop Date: 02/20/23 Status: Ordered atorvastatin 80 mg oral tablet 1 tablet, By Mouth, Daily, INSTR:REPLACES SIMVASTATIN, # 90 tablet, 1 Refills, Maintenance, 05/22/23 12:07:00 EST, [id number], 157, cm, 05/06/23 14:23:00 EST, Height, 88.3, kg, 04/16/23 11:33:00EST, Dry Weight Start Date: 05/22/23 Status: Ordered BD Single Use Swab 70% topical pad See Instructions, TO CLEANS BEFORE INJECTIONS 5 X A DAY., # 150 Unknown, 11 Refills, Maintenance, 08/16/22 10:15:00 EDT, [facility], 30, TO CLEANS BEFORE INJECTIONS 5 X A DAY., 157.5, cm, 08/01/22 9:27:00 EDT, Height Start Date: 08/16/22 Status: Ordered busPIRone 5 mg oral tablet 5 mg, 1, tablet, By Mouth, 2 times a day, # 60 tablet, Refills 4, Tot. Refills 4, Maintenance, 04/30/23 7:27:00 EST, Route to Pharmacy Electronically, [facility]/pharmacy #[id number], Partial fill upon patient request if the prescription is for a schedule II opioi... Start Date: 04/30/23 Stop Date: 09/27/23 Status: Ordered capsaicin 0.075% topical cream See Instructions, APPLY TO AFFECTED AREA TWICE A DAY, # 57 Gm, 4 Refills, Maintenance, 04/11/23 10:18:00 EST, [id number], 30, APPLY TO AFFECTED AREA TWICE A DAY, 157, cm, 04/11/23 10:02:00 EST, Height, 88.6, kg, 04/11/23 10:02:00 EST, Dry Weight Start Date: 04/11/23 Status: Ordered CPAP Machine See Instructions, # [...] tablet, 11 Refills, Maintenance, 07/09/22 10:30:00 EDT, [facility]/pharmacy #[id number], 30, 1 tablet By [...] Gm, 1 Refills, Maintenance, 12/14/22 6:14:00 EDT, [facility]/pharmacy #[id number], 30, APPLY TOPICALLY 4 TIMES A DAY NOT TO EXCEED 16 GRAMS/DAY/SING... Start Date: 12/14/22 Status: Ordered Disposable Underpads Disposable Underpads, See [...] capsule, 5 Refills, Maintenance, 07/03/22 18:20:00 EDT, [facility]/pharmacy #[id number], Duplicate Rx. Original sent 07/03/22 with routing error. Re- sending to pharmacy, 157.5, cm... Start Date: 07/03/22 Status: Ordered esomeprazole 40 mg oral enteric coated capsule 1 capsule = 40 mg, By Mouth, Daily, # 90 capsule, 1 Refills, Maintenance, 03/07/23 13:32:00 EST, [facility]/pharmacy #[id number], Partial fill upon patient [...] each, 0 Refills, Maintenance, 09/20/22 9:36:00 EDT, [facility], 30, INHALE 1 PUFF BY MOUTH TWICE A DAY, 157.5, cm, 09/05/22 16:22:00 EDT, Height Start Date: 09/20/22 Status: Ordered fluticasone 50 mcg/inh nasal spray See Instructions, SPRAY 1 SPRAY INTO EACH NOSTRIL EVERY DAY, # 16 mL, 5 Refills, Maintenance, 07/05/22 16:20:00 EDT, [id number], 30, SPRAY 1 SPRAY INTO EACH NOSTRIL EVERY DAY, 157.5, cm, 06/21/22 8:43:00 EDT, Height Start Date: 07/05/22 Status: Ordered FREESTYLE INSULINX TEST STRIPS FREESTYLE INSULINX TEST STRIPS, See Instructions, # 100 Unknown, 13 Refills, Maintenance, USE TO CHECK BLOOD GLUCOSE LEVELS UP TO 4 TIMES DAILY. E11.9, 05/02/23 8:31:00 EST, 157, cm, 04/17/23 7:57:00EST, Height, 88.3, kg, 04/16/23 11:33:00 EST, Dry W... Start Date: 05/02/23 Status: Ordered Freestyle Insulinx Test Strips Freestyle [...] Stop Date: 09/18/22 Status: Ordered FREESTYLE LANCETS MIS Miscellaneous FREESTYLE LANCETS [facility] [place] Miscellaneous, See Instructions, # 100 Unknown, 5 [...] tablet, 4 Refills, Maintenance, 03/11/23 15:50:00 EST, [id number], 157.5, cm, 02/19/23 9:20:00 EST, Height Start Date: 03/11/23 Status: Ordered Gloves Gloves, See Instructions, # [...] mL, 6 Refills, Maintenance, 11/26/22 14:55:00 EDT, [facility], Partial fill upon patie... Start Date: 11/26/22 Status: Ordered lactase 3000 u oral tablet 3 tablet, By Mouth, 3 times a day with meals, X30 DAYS., # 120 tablet, 5 Refills, Maintenance, 04/25/23 15:25:00 EST, [facility], 157, cm, 04/17/23 7:57:00 EST, Height, 88.3, kg, 04/16/23 11:33:00 EST, Dry Weight Start Date: 04/25/23 Status: Ordered Lantus Solostar Pen 100 units/mL subcutaneous solution See Instructions, Take 45 units in the AM and 45 units daily at bedtime. E11.9., # 30 mL, 9 Refills, Maintenance, 11/26/22 14:55:00 EDT, [facility], Partial fill upon patient requestif the prescription is for a schedule II opioid lucas... Start Date: 11/26/22 Status: Ordered levothyroxine 0.112 mg oral tablet 1 tablet, By Mouth, Daily, # 30 tablet, 11 Refills, Maintenance, 06/25/23 14:09:00 EDT, [facility]/pharmacy #[id number], 157, cm, 06/24/23 14:54:00 EDT, Height, 88.3, kg, 04/16/23 11:33:00 EST, Dry Weight Start Date: 06/25/23 Status: Ordered lidocaine 5% topical ointment See Instructions, APPLY TO AFFECTED AREA 3 TIMES A DAY, # 35.44 Gm, 11 Refills, Maintenance, 02/28/22 8:51:00 EST, [facility]/pharmacy #[id number], 30, APPLY TO AFFECTED AREA 3 TIMES A DAY, 157.5, cm, 02/21/22 14:36:00 EST, Height Start Date: 02/28/22 Status: Ordered lidocaine 5% topical ointment See Instructions, APPLY TO AFFECTED AREA 3 TIMES A DAY, # 35.44 Gm, 11 Refills, Maintenance, 07/03/22 18:22:00 EDT, [facility]/pharmacy #[id number], 30, Duplicate Rx. Original sent 07/03/22 with routing error. Re-sending to pharmacy, APPLY TO AFFECTED AREA 3 TIMES A... Start Date: 07/03/22 Status: Ordered losartan 50 mg oral tablet See Instructions, TAKE 1 TABLET BY MOUTH EVERY DAY, # 90 tablet, 1 Refills, Maintenance, 03/11/23 15:50:00 EST, [id number], 157.5, cm, 02/19/23 9:20:00 EST, Height Start Date: 03/11/23 Status: Ordered Lyrica 25 mg oral capsule See Instructions, 1 capsule By Mouth 1 time daily at bedtime. E11.9, # 30 each, 5 Refills, Maintenance, 01/21/23 15:40:00 EDT, Capsule, [facility]/pharmacy #[id number], Partial fill upon patient request if the prescription is for a schedule II opioid drug., 157.5,... Start Date: 01/21/23 Status: Ordered mirtazapine 15 mg oral tablet 1 tablet = 15 mg, By Mouth, Daily at bedtime, # 30 tablet, 4 Refills, Maintenance, 12/06/22 13:07:00 EDT, Tablet, [facility]/pharmacy #[id number], Partial fill upon patient request if the prescription is for a schedule II opioid drug., 157.5, cm, 11/26/22 14:11:00... Start Date: 12/06/22 Stop Date: 05/05/23 Status: Ordered Narcan 4 mg/0.1 mL nasal spray = 4 mg, Nares, Both, Once, # 2 each, 2 Refills, Soft Stop, 02/22/23 14:30:00 EST, [facility]/pharmacy #[id number], Partial fill upon patient request if the prescription is for a schedule II opioid drug., 157.5, cm, 02/19/23 9:20:00 EST, Height Start Date: 02/22/23 Status: Ordered [place]-3 Fish Oil 1000 mg oral capsule 1 capsule = 1,000 mg, By Mouth, Daily, # 90 capsule, 1 Refills, Maintenance, 08/01/22 10:17:00 EDT,[facility]/pharmacy #[id number], Partial fill upon patient [...] 05/01/21 Start Date: 06/02/21 Status: Ordered Pen Naturita, 31 G x 8 mm BD Ultra [...] 12/06/22 13:08:00 EDT, Route to Pharmacy Electronically, [facility]/pharmacy #[id number], Partial fill upon patient request if the prescription is for a schedule II opi... Start Date: 12/06/22 Stop Date: 05/05/23 Status: Ordered scowman grabber tool scowman grabber tool, See Instructions, # 1 each, Refills 0, Tot. Refills 0, Maintenance, please dispense one scowman grabber tool, ICD 10 M54.6, length of [...] tablet, 10 Refills, Maintenance, 01/17/23 8:54:00 EDT, [facility], 157.5, cm, 12/28/22 15:12:00 EDT, Height Start Date: 01/17/23 Status: Ordered Trulicity Pen 4.5 mg/0.5 mL subcutaneous solution See Instructions, INJECT 4.5 MG SUBCUTANEOUSLY ONCE A WEEK, # 2 mL, 10 Refills, Maintenance, 06/10/23 12:32:00 EDT, [facility], 157, cm, 05/06/23 14:23:00 EST, Height, 88.3, kg, 04/16/23 11:33:00 EST, Dry Weight Start Date: 06/10/23 Status: Ordered valACYclovir 500 mg oral tablet 1, tablet, By Mouth, 2 times a day, PRN, # 6 tablet, Refills 0, Maintenance, NEEDED FOR OUTBREAKS, 05/22/23 12:07:00 EST, Route to Pharmacy Electronically, [id number], 157, cm, 05/06/23 14:23:00 EST, Height, 88.3, kg, 04/16/23 11:33:00 EST, . 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 [place] [address]- Name: Lizbeth Collins [place] Position: [facility] RN Member Role: Primary Care Nurse Care Team Related Persons Name: LB HENLEY Address: [address] [place] [address] Name: LB HENLEY Address: home [address] [address] Name: MILENA CUBA Address: home [address] [place] [address]
--- OUTSIDE RECORDS SUMMARY | 2024-01-23 14:23 | XMS_ITS | Continuity of Care Document ---
Author Organization [facility] Address [address] [place] [address]- Care Team Providers Care Plumber Name Role Phone Rose Mary FISCHER, Sergo Cole Primary Care Physician [phone] Encounter [facility] [place] Date(s): 11/07/23 - 12/07/23 [facility] [address] [place], [place] [address] Attending Physician: Admtr, Ar8 Admitting Physician: Admtr, Ar8 Referring Physician: Admtr, Ar8 Allergies, Adverse Reactions, Alerts Substance Reaction Severity Status morphine ITCH DIARRHEA Active Ultram nausea, vomit Active trazodone DEPRESSION Active cortisone Active Motrin eat lining of stomach Active Naprosyn gi upset Active CeleBREX gi upset Active Neurontin mental status changes Active Vioxx heart problems Active Latex powder [...] [facility] [id number] 2Admin Note: vis given dated 10/24/12 3Admin [...] 100 tablet, 1 Refills, Acute, 219:52:00 EDT, [facility], 157.48, cm, 10/11/20 9:39:00 EDT, Height Start [...] Date: 10/30/23 Stop Date: 10/24/24 Status: Ordered Tjnvc-Oemdid-Qeeb 300 mg oral capsule 1 capsule, By Mouth, 2 times a day, NOT COVERED., # 60 capsule, 11 Refills, [facility], 157.48, cm, 01/27/21 9:30:00 EDT, Height Start Date: 01/30/21 Status: Ordered ammonium lactate 12% topical cream 1 application, Topically, 2 times a day, # 385 Gm, 1 Refills, Maintenance, 12/22/22 14:16:00 EDT, Cream, [facility]/pharmacy #[id number], Partial fill upon patient request if the prescription is for a schedule IIopioid drug., 1 application Topically 2 times a day... Start Date: 12/22/22 Stop Date: 02/20/23 Status: Ordered Artificial Tears preserved solution 1 drops, Eyes, Both, 2 times a day, PRN for dry eyes, # 15 mL, 0 Refills, Maintenance, 09/10/23 8:57:00 EDT, Solution, [facility]/pharmacy #[id number], Partial fill upon patient request if the prescription is fora schedule II opioid drug., 1 drops Eyes, Both 2 ti... Start Date: 09/10/23 Status: Ordered atorvastatin 80 mg oral tablet See Instructions, TAKE 1 TABLET BY MOUTH DAILY. INSTR:REPLACES SIMVASTATIN, # 90 tablet, 1 Refills,Maintenance, 11/06/23 7:48:00 EDT, [facility], 157, cm, 10/18/23 11:52:00 EDT, Height, 84, kg,07/24/23 12:52:00 EDT, Dry Weight Start Date: 11/06/23 Status: Ordered atorvastatin 80 mg oral tablet 1 tablet, By Mouth, Daily, INSTR:REPLACES SIMVASTATIN, # 90 tablet, 1 Refills, Maintenance, 05/22/23 12:07:00 EST, [facility], 157, cm, 05/06/23 14:23:00 EST, Height, 88.3, kg, 04/16/23 11:33:00EST, Dry Weight Start Date: 05/22/23 Status: Ordered BD Single Use Swab 70% topical pad See Instructions, TO CLEANS BEFORE INJECTIONS 5 X A DAY., # 150 Unknown, 11 Refills, Maintenance, 08/16/22 10:15:00 EDT, [facility], 30, TO CLEANS BEFORE INJECTIONS 5 X A DAY., 157.5, cm, 08/01/22 9:27:00 EDT, Height Start Date: 08/16/22 Status: Ordered busPIRone 5 mg oral tablet 5 mg, 1, tablet, By Mouth, 3 times a day, # 90 tablet, Refills 4, Tot. Refills 4, Maintenance, 02/07/24 10:46:00 EST, Route to Pharmacy Electronically, [facility]/pharmacy #[id number], Partial fill upon [...] tablet, 5 Refills, Maintenance, 11/06/23 17:25:00 EDT, [facility]/pharmacy #[id number], 1 tablet By [...] 02/07/24 10:46:00 EST, Route to Pharmacy Electronically, [facility]/pharmacy #[id number], Partial fill... Start Date: 02/07/24 Stop Date: 07/06/24 Status: Ordered diazepam 5 mg oral tablet 5 mg, 1, tablet, By Mouth, 2 times a day, for 30 days, TAKE 1 TABLET BY MOUTH TWICE A DAY., # 60 tablet, Refills 4, Tot. Refills 4, Acute 12/03/24 10:46:00 EDT, 07/06/24 10:46:00 EDT, Route to Pharmacy Electronically, [facility]/pharmacy #[id number], Partial fill... Start Date: 07/06/24 Stop Date: 12/03/24 Status: Ordered diazepam 5 mg oral tablet 5 mg, 1, tablet, By Mouth, 2 times a day, for 30 days, TAKE 1 TABLET BY MOUTH TWICE A DAY., # 60 tablet, Refills 4, Tot. Refills 4, Acute 02/07/24 10:46:00 EST, 09/10/23 10:46:00 EDT, Route to Pharmacy Electronically, [facility]/pharmacy #[id number], Partial fill... Start Date: 09/10/23 Stop Date: 02/07/24 Status: Ordered diclofenac 1% topical gel See Instructions, APPLY TOPICALLY 4 TIMES A DAY NOT TO EXCEED 16 GRAMS/DAY/SINGLE JOINT OF LOWER EXTREMITIES, # 100 Gm, 4 Refills, Maintenance, 09/10/23 8:56:00 EDT, [facility]/pharmacy #[id number], 30, APPLY TOPICALLY [...] capsule, 5 Refills, Maintenance, 07/03/22 18:20:00 EDT, [facility]/pharmacy #[id number], Duplicate Rx. Original sent 07/03/22 with routing error. Re- sending to pharmacy, 157.5, cm... Start Date: 07/03/22 Status: Ordered esomeprazole 40 mg oral enteric coated capsule 1 capsule = 40 mg, By Mouth, Daily, # 90 capsule, 3 Refills, Maintenance, 09/25/23 16:33:00 EDT, [facility]/pharmacy #[id number], Partial fill upon patient request if the prescription is for a schedule II opioid drug., 157, cm, 09/25/23 16:26:00 EDT, Height, 84, k... Start Date: 09/25/23 Status: Ordered esomeprazole 40 mg oral enteric coated capsule 1 capsule = 40 mg, By Mouth, Daily, # 90 capsule, 1 Refills, Maintenance, 09/02/23 16:20:00 EDT, [facility]/pharmacy #[id number], Partial fill upon [...] each, 0 Refills, Maintenance, 11/06/23 17:54:00 EDT, [facility]/pharmacy #[id number], 30, 1 puffs Inhalation 2 times a day, 157, cm, 10/18/23 11:52:00 EDT, Height, 84, kg,07/24/23 12:52:00 EDT, Dry Weight Start Date: 11/06/23 Status: Ordered fluticasone 50 mcg/inh nasal spray See Instructions, SPRAY 1 SPRAY INTO EACH NOSTRIL EVERY DAY, # 16 mL, 5 Refills, Maintenance, 11/06/23 17:54:00 EDT, [facility]/pharmacy #[id number], 30, SPRAY 1 [...] Start Date: 05/02/23 Status: Ordered FREESTYLE LANCETS MIS Miscellaneous FREESTYLE LANCETS [facility] Miscellaneous, See Instructions, # 100 Unknown, 5 [...] tablet, 4 Refills, Maintenance, 11/06/23 17:54:00 EDT, [facility]/pharmacy #[id number], 157, cm, 10/18/23 [...] mL, 6 Refills, Maintenance, 07/24/23 13:20:00 EDT, [facility], Partial fill upon patient request if the prescription is for a schedule II opioid drug., 157, cm, 07/24/23 12:52:00... Start Date: 07/24/23 Status: Ordered hydrOXYzine hydrochloride 25 mg oral tablet 1 tablet = 25 mg, By Mouth, 2 times a day, as needed for anxiety, # 60 tablet, 4 Refills, Soft Stop, 11/08/24 10:47:00 EST, Tablet, [facility]/pharmacy #[id number], Partial fill upon [...] 02/07/24 10:47:00 EST, 09/10/23 10:47:00 EDT, Tablet, [facility]/pharmacy #[id number], Partial fillupon patient request if the prescription is for a s... Start Date: 09/10/23 Stop Date: 02/07/24 Status: Ordered lactase 3000 u oral tablet 3 tablet, By Mouth, 3 times a day with meals, X30 DAYS., # 120 tablet, 3 Refills, Maintenance, 11/06/23 7:51:00 EDT, [facility]/pharmacy #[id number], 157, cm, 10/18/23 11:52:00 EDT, Height, 84, kg, 07/24/23 12:52:00 EDT, Dry Weight Start Date: 11/06/23 Status: Ordered Lantus Solostar Pen 100 units/mL subcutaneous solution See Instructions, Take 45 units in the AM and 45 units daily at bedtime. E11.9., # 30 mL, 9 Refills, Maintenance, 07/24/23 13:18:00 EDT, [facility], Partial fill upon patient requestif the prescription is for a schedule II opioid lucas... Start Date: 07/24/23 Status: Ordered levothyroxine 0.1 mg oral tablet 1 tablet = 100 mcg, By Mouth, Daily, # 30 tablet, 11 Refills, Maintenance, 07/25/23 8:52:00 EDT, [id number], stop the 112mcg dose, 157, cm, 07/24/23 12:52:00 EDT, Height, 84, kg, 07/24/23 12:52:00 EDT, Dry Weight Start Date: 07/25/23 Stop Date: 07/19/24 Status: Ordered lidocaine 5% topical ointment See Instructions, APPLY TO AFFECTED AREA 3 TIMES A DAY, # 35.44 Gm, 3 Refills, Maintenance, 11/06/23 7:51:00 EDT, [facility]/pharmacy #[id number], 30, Duplicate Rx. Original sent 07/03/22 with routing error. Re-sending to pharmacy, APPLY TO AFFECTED AREA 3 TIMES A D... Start Date: 11/06/23 Status: Ordered lidocaine 5% topical ointment See Instructions, APPLY TO AFFECTED AREA 3 TIMES A DAY, # 35.44 Gm, 11 Refills, Maintenance, 02/28/22 8:51:00 EST, [facility]/pharmacy #[id number], 30, APPLY TO AFFECTED AREA 3 TIMES A DAY, 157.5, cm, 02/21/22 14:36:00 EST, Height Start Date: 02/28/22 Status: Ordered losartan 50 mg oral tablet See Instructions, TAKE 1 TABLET BY MOUTH EVERY DAY, # 90 tablet, 1 Refills, Maintenance, 10/17/23 13:55:00 EDT, [facility]/pharmacy #[id number], 157, cm, 10/12/23 11:14:00 EDT, Height, 84, kg, 07/24/23 12:52:00 EDT, Dry Weight Start Date: 10/17/23 Status: Ordered Lyrica 25 mg oral capsule See Instructions, 1 capsule By Mouth 1 time daily at bedtime. E11.9, # 30 each, 2 Refills, Maintenance, 11/05/23 18:01:00 EDT, Capsule, [facility]/pharmacy #[id number], Partial fill upon patient request if the prescription is for a schedule II opioid drug., 157, c... Start Date: 11/05/23 Status: Ordered mirtazapine 15 mg oral tablet 1 tablet = 15 mg, By Mouth, Daily at bedtime, # 30 tablet, 4 Refills, Maintenance, 02/07/24 10:47:00 EST, Tablet, [facility]/pharmacy #[id number], Partial fill upon [...] 02/07/24 10:47:00 EST, 09/10/23 10:47:00 EDT, Tablet, [facility]/pharmacy #[id number], Partial fill upon patient request if the prescription is for a schedule II opioid dr... Start Date: 09/10/23 Stop Date: 02/07/24 Status: Ordered Murine Ear Drops 6.5% solution See Instructions, INSTILL 5 DROPS INTO BOTH EARS TWICE DAILY FOR 7 DAYS, # 15 mL, 0 Refills, Maintenance, 09/30/23 10:01:00 EDT, [facility] ST[facility], 30, INSTILL 5 DROPS INTO BOTH EARS TWICE DAILY FOR 7 DAYS, 157, cm, 09/25/23 16:26:00 EDT, Height, 84, kg... Start Date: 09/30/23 Status: Ordered Narcan 4 mg/0.1 mL nasal spray = 4 mg, Nares, Both, Once, # 2 each, 2 Refills, Soft Stop, 02/22/23 14:30:00 EST, [facility]/pharmacy #[id number], Partial fill upon patient request if the prescription is for a schedule II opioid drug., 157.5, cm, 02/19/23 9:20:00 EST, Height Start Date: 02/22/23 Status: Ordered [place]-3 Fish Oil 1000 mg oral capsule 1 capsule = 1,000 mg, By Mouth, Daily, # 90 capsule, 1 Refills, Maintenance, 08/01/22 10:17:00 EDT,[facility]/pharmacy #[id number], Partial fill upon [...] Refills, Maintenance, 06/14/22 16:40:00 EDT, EC Tablet, [facility]/pharmacy #[id number], Partial fill upon patient request if the prescription is for a schedule II opioid drug., 157.5,... Start Date: 06/14/22 Status: Ordered ondansetron 4 mg oral tablet 1 tablet, By Mouth, Every 8 hours, PRN NEEDED FOR NAUSEA AND VOMITING FOR, # 30 tablet, 2 Refills, Maintenance, 07/03/23 14:40:00 EDT, [facility], 157, cm, 06/24/23 14:54:00 EDT, Height, 88.3, [...] mL, 11 Refills, Maintenance, 08/23/23 11:17:00 EDT, [facility], Partial fill upon patient request if... Start Date: 08/23/23 Status: Ordered Pen [place], 31 G x 8 mm BD Ultra [...] 02/07/24 10:47:00 EST, Route to Pharmacy Electronically, [facility]/pharmacy #[id number], Partial fill upon patient request if the prescription is for a schedule II opi... Start Date: 02/07/24 Stop Date: 07/06/24 Status: Ordered QUEtiapine 25 mg oral tablet 25 mg, 1, tablet, By Mouth, 2 times a day, for 30 days, # 60 tablet, Refills 4, Tot. Refills 4, Hard Stop 02/07/24 10:47:00 EST, 09/10/23 10:47:00 EDT, Route to Pharmacy Electronically, [facility]/pharmacy #[id number], Partial fill upon patient request if the pres... Start Date: 09/10/23 Stop Date: 02/07/24 Status: Ordered shop hand grabber tool shop hand grabber tool, See Instructions, # 1 each, Refills 0, Tot. Refills 0, Maintenance, please dispense one shop hand grabber tool, ICD 10 M54.6, length of [...] tablet, 10 Refills, Maintenance, 10/08/23 15:43:00 EDT, [facility], 157, cm, 09/25/23 16:26:00 EDT, Height, 84, kg, 07/24/23 12:52:00 EDT, Dry Weight Start Date: 10/08/23 Status: Ordered valACYclovir 500 mg oral tablet See Instructions, TAKE 1 TABLET BY MOUTH 2 TIMES A DAY,X3 DAYS, NEEDED FOR OUTBREAKS, # 6 tablet, Refills 0, Maintenance, 11/06/23 7:49:00 EDT, Instructions Replace Required Details, Route to Pharmacy Electronically, [facility], 157, cm, 10/17... 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 *Briana Garces, Import/Export Clerk, ICP [phone] Confirmed Active PTSD (post-traumatic stress disorder) Confirmed [...] Never smoker entered on: 11/10/13 Sex Female US Neck * Event Display: Ultrasound Neck Authored Date: Patient Care team information Care Team Personnel Name: Rose Mary FISCHER, Sergo Cole Position: [facility] Physician - Primary Care Member Role: PCP Address: Address: [address] [facility] [place] [address]- Name: Lizbeth Collins [place] Position: [facility] Office Staff Member Role: Primary Care Nurse Care Team Related Persons Name: LB HENLEY Address: home [address] [address] Name: LB HENLEY Address: [address] [place] [address] Name: MILENA CUBA Address: home [address] [place] [address]
--- OUTSIDE RECORDS SUMMARY | 2024-01-23 14:23 | XMS_ITS | Continuity of Care Document ---
Author Organization [facility] Address [address] [place] [address]- Care Team Providers Care Medical Legal Investigator Name Role Phone Rose Mary FISCHER, Sergo Cole Primary Care Physician Encounter [facility] [place] Date(s): 07/11/22 - 08/10/22 [facility] [address] [place], [place] [address] Allergies, Adverse Reactions, Alerts Substance Reaction Severity [...] (oldterm) 8 01/21/08 Given 1Result Comment: [01/22/2017] [facility] [id number] 2Admin Note: vis given dated 10/24/12 3Admin Note: vis given dated 10/01/11 4Admin Note: vis 5Admin Note: vis 6Admin Note: vis given: 10/27/2006 7Admin Note: vis given : 10/10/2005 8Admin Note: vis given 2007- Medications acetaminophen 500 mg oral tablet 2 tablet, By Mouth, 4 times a day, PRN NEEDED FOR PAIN, # 100 tablet, 1 Refills, Acute, 219:52:00 EDT, [facility], 157.48, cm, 10/11/20 9:39:00 EDT, Height Start Date: 10/26/20 Status: Ordered Alcohol Pads See Instructions, # 200 each, Refills 11, Tot. Refills 11, Maintenance, To cleans before injections5 x a day., 03/03/21 9:18:00 EST, E11.65, Compound, 157.48, cm, 03/01/21 15:54:00 EST, Height Start Date: 03/03/21 Stop Date: 02/26/22 Status: Ordered Zdlwl-Qksudd-Ilob 300 mg oral capsule 1 capsule, By Mouth, 2 times a day, NOT COVERED., # 60 capsule, 11 Refills, [facility], 157.48, cm, 01/27/21 9:30:00 EDT, Height Start Date: 01/30/21 Status: Ordered ammonium lactate 12% topical cream 1 application, Topically, 2 times a day, # 385 Gm, 3 Refills, Maintenance, 04/05/22 13:30:00 EST, Cream, [facility]/pharmacy #[id number], Partial fill upon [...] Refills, Maintenance, 03/05/22 13:29:00 EST, [facility], 30, APPLY TO AFFECTED AREA TWICE A [...] Pharmacy Electronically, [facility]/pharmacy... Start Date: 05/02/22 Status: Ordered diclofenac 1% topical gel See Instructions, APPLY TOPICALLY 4 TIMES A DAY NOT TO EXCEED 16 GRAMS/DAY/SINGLE JOINT OF LOWER EXTREMITIES, # 100 Gm, 6 Refills, Maintenance, 03/19/22 9:28:00 EST, [facility], 30, APPLY TOPICALLY 4 TIMES A DAY [...] each, 0 Refills, Maintenance, 03/22/22 16:35:00 EST, [facility], 30, INHALE 1 PUFF BY MOUTH TWICE A DAY, 157.5, cm, 03/22/22 13:25:00 EST, Height Start Date: 03/22/22 Status: Ordered fluticasone 50 mcg/inh nasal spray See Instructions, SPRAY 1 SPRAY INTO EACH NOSTRIL EVERY DAY, # 16 mL, 5 Refills, Maintenance, 07/05/22 16:20:00 EDT, [facility], 30, SPRAY 1 SPRAY INTO EACH NOSTRIL [...] mL, 6 Refills, Maintenance, 06/12/22 10:00:00 EDT, [facility], Partial fill upon patie... Start Date: 06/12/22 Status: Ordered Lantus Solostar Pen 100 units/mL subcutaneous solution See Instructions, Take 45 units in the AM and 45 units daily at bedtime. E11.9., # 30 mL, 9 Refills, Maintenance, 06/19/22 16:50:00 EDT, [facility], Partial fill upon patient requestif the prescription is for a schedule II opioid lucas... Start Date: 06/19/22 Status: Ordered lidocaine 5% topical ointment See Instructions, APPLY TO AFFECTED AREA 3 TIMES A DAY, # 35.44 Gm, 11 Refills, Maintenance, 02/28/22 8:51:00 EST, [facility]/pharmacy #[id number], 30, APPLY TO AFFECTED AREA 3 [...] Date: 05/02/22 Stop Date: 09/29/22 Status: Ordered [place]-3 Fish Oil 1000 mg oral capsule 1 [...] 05/01/21 Start Date: 06/02/21 Status: Ordered Pen [place], 31 G x 8 mm BD Ultra [...] 05/02/22 14:40:00 EST, Route to Pharmacy Electronically, [facility]/pharmacy #[id number], Partial fill upon patient request if the prescription is for a schedule II opi... Start Date: 05/02/22 Status: Ordered gypsum roofer grabber tool gypsum roofer grabber tool, See Instructions, # 1 each, Refills 0, Tot. Refills 0, Maintenance, please dispense one gypsum roofer grabber tool, ICD 10 M54.6, length of [...] 10:05:00 EDT, 06/12/22 10:05:00 EDT, Chew Tablet, [facility], Partial fill upon patient [...] EDT, 04/19/22 14:36:00 EST, [facility]/pharmacy #[id number], 157.5, cm, 04/11/22 10:50:00 EST, Height Start Date: 04/19/22 Stop Date: 12/15/22 Status: Ordered Topamax 25 mg oral tablet 3 tablet = 75 mg, By Mouth, Daily at bedtime, # 90 tablet, 6 Refills, Maintenance, 06/26/22 10:14:00 EDT, Tablet, [facility], 157.5, cm, 06/21/22 8:43:00 EDT, Height Start Date: 06/26/22 Stop Date: 01/22/23 Status: Ordered Trulicity Pen 3 mg/0.5 mL subcutaneous solution See Instructions, INJECT 0.5ML SUBCUTANEOUSLY EVERY WEEK, ROTATE INJECTION SITES, # 2 mL, 5 Refills, 01/23/22 16:33:00 EDT, [facility], 157.5, cm, 01/20/22 13:38:00 EDT, Height Start Date: 01/23/22 Status: Ordered Trulicity Pen 4.5 mg/0.5 mL subcutaneous solution See Instructions, 4.5 mg Subcutaneous Infusion weekly. E11.9, # 4 each, 5 Refills, Maintenance, 06/19/22 17:00:00 EDT, [facility], Partial fill upon patient request if the prescription is for a schedule II opioid drug., 157.5, cm, ... Start Date: 06/19/22 Status: Ordered valACYclovir 500 mg oral tablet 1, tablet, By Mouth, 2 times a day, PRN, # 6 tablet, Refills 2, Maintenance, NEEDED FOR OUTBREAKS, 07/11/22 16:11:00 EDT, Route to Pharmacy Electronically, [facility] ST[facility] 51999, 157.5, cm, 06/21/22 8:43:00 EDT, Height Start Date: 07/11/22 Stop Date: 07/14/22 Status: Ordered Vascepa 1 g oral capsule 2 capsule = 2 Gm, By Mouth, 2 times a day, # 360 capsule, 5 Refills, Maintenance, 05/03/20 15:59:00EST, Capsule, [facility]/pharmacy #[id number], 157.48, cm, 03/04/20 14:14:00 EST, Height Start Date: 05/03/20 Status: Ordered Ventolin HFA 108 mcg/inh inhalation aerosol with adapter 1 puffs, Inhalation, 4 times a day, PRN NEEDED FOR WHEEZING, # 18 each, 0 Refills, Maintenance, 04/04/22 12:59:00 EST, [facility], 157.5, cm, 03/22/22 13:25:00 EST, Height Start [...] 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 No wall motion abnormalities, Does [...] Team Personnel Name: Sergo Bazzi MD Position: [facility] Primary Care Physician Member Role: PCP Address: Address: [address] [place] [address] [place] [address]- Name: Lizbeth Barnhart Position: [facility] RN Member Role: Primary Care Nurse Care Team Related Persons Name: KALE, LB Address: home [address] [address] Name: LB HENLEY Address: [address] [place] [address] Name: MILENA CUBA Address: home [address] [place] [address]
--- OUTSIDE RECORDS SUMMARY | 2024-01-23 14:23 | XMS_ITS | Continuity of Care Document ---
Author Organization [facility] Address [address] [place] [address]- Care Team Providers Care Head Of Music Name Role Phone Rose Mary FISCHER, Sergo Cole Primary Care Physician [phone] Encounter [facility] Date(s): 08/31/20 - 09/30/20 [facility] [address], [place] [address] Allergies, Adverse Reactions, Alerts Substance Reaction [...] (oldterm) 8 01/21/08 Given 1Result Comment: [01/22/2017] [facility] [id number] 2Admin Note: vis given dated 10/24/12 3Admin [...] 10/29/20 15:45:00 EDT, 08/30/20 15:45:00 EDT, Tablet, [facility]/pharmacy #[id number], [...] mL, 5 Refills, Maintenance, 09/02/19 13:54:00 EDT, [facility], E11.9, 157.48, cm, 04/27/19 [...] 5 Refills, Maintenance, 06/20/20 10:55:00 EDT, Cream, [facility]/pharmacy #[id number], [...] Refills, Maintenance, 06/21/20 17:44:00 EDT, [facility], 157.48, cm, 05/31/20 9:41:00 EST, Height Start Date: 06/21/20 Status: Ordered atorvastatin 80 mg oral tablet 1 tablet = 80 mg, By Mouth, Daily, replaces Simvastatin, # 90 tablet, 4 Refills, Maintenance, 02/23/20 11:05:00 EST, Tablet, [facility]/pharmacy #[id number], replaces simvastatin, 157.48, cm, 01/25/20 15:23:00 EDT, Height Start Date: 02/23/20 Stop Date: 05/18/21 Status: Ordered BD ultra fine III pen needles [id number] BD ultra fine III pen needles [id number], See Instructions, # 360 each, Refills 3, [...] Refills, Maintenance, 08/19/20 16:26:00 EDT, [facility], 30, TAKE 1 TABLET BY MOUTH DAILY. [...] 6 Refills, Maintenance, 09/02/20 12:50:00 EDT, Gel, [facility]/pharmacy #[id number], 157.48, cm, 05/31/20 9:41:00 [...] 5 Refills, Maintenance, 01/07/20 14:00:00 EDT, Tablet, [facility]/pharmacy #[id number], 157.48, cm, 12/29/19 15:55:00 [...] Gm, 5 Refills, Maintenance, 06/27/20 15:14:00 EDT, [facility]/pharmacy #[id number], 1 sprays Nares, Both [...] 3, Maintenance, use up to check blood [id number] per day. 90 DAY SUPPLY, E11.9, 02/29/20 [...] mL, 2 Refills, Maintenance, 04/07/20 16:52:00 EST, [facility], Partial fill upon patient [...] mL, 9 Refills, Maintenance, 09/20/20 15:10:00 EDT, [facility], NEEDS 30 ML FOR [...] 0 Refills, Maintenance, 08/26/20 20:44:00 EDT, Film, [facility]/pharmacy #[id number], Partial fill upon patient request if the prescription is for a schedule II opioid drug., 1 patch Topically Daily, 157.48, cm, 05/31/20 9:41:0... Start Date: 08/26/20 Status: Ordered losartan 50 mg oral tablet 1 tablet, By Mouth, Daily, # 30 tablet, 5 Refills, Maintenance, 06/20/20 9:32:00 EDT, [facility] STORE 14844, 157.48, cm, 05/31/20 9:41:00 EST, Height Start [...] request Start Date: 02/16/19 Status: Ordered Pen [place], 31 G x 8 mm BD [...] 11/17/20 13:36:00 EDT, 04/21/20 13:36:00 EST, Tablet, [facility]/pharmacy #[id number], 157.48, cm, 03/04/20... Start Date: 04/21/20 Stop Date: 11/17/20 Status: Ordered tiZANidine 4 mg oral capsule 1 capsule = 4 mg, By Mouth, 3 times a day, # 21 capsule, 0 Refills, Maintenance, 09/07/20 8:41:00 EDT, Capsule, [id number], Partial fill upon [...] 12/08/21 15:26:00 EDT, 12/13/20 15:26:00 EDT, Solution, [facility], E11.65, 157.48, cm, 04/27/19 15:43:00 EST, Height Start Date: 12/13/20 Stop Date: 12/08/21 Status: Ordered Trulicity Pen 1.5 mg/0.5 mL subcutaneous solution 0.5 mL = 1.5 mg, Subcutaneous Injection, Every Saturday, E11.9, # 7.5 mL, 3 Refills, Maintenance, 12/08/21 15:26:00 EDT, Solution, [facility], E11.65, 157.48, cm, 03/04/20 14:14:00 EST, Height Start Date: 12/08/21 Stop Date: 12/03/22 Status: Ordered Trulicity Pen 1.5 mg/0.5 mL subcutaneous solution 0.5 mL = 1.5 mg, Subcutaneous Injection, Every Saturday, for 90 days, # 6.5 mL, 5 Refills, Hard Stop 12/13/20 15:26:00 EDT, 06/22/19 15:26:00 EDT, Solution, [facility]/pharmacy #[id number], E11.65, 157.48, cm, 04/27/19 15:43:00 EST, Height Start Date: 06/22/19 Stop Date: 12/13/20 Status: Ordered valACYclovir 500 mg oral tablet See Instructions, TAKE 1 TABLET BY MOUTH TWICE A DAY FOR 3 DAYS NEEDED FOR OUTBREAK, # 6 tablet,Refills 2, Acute, Instructions Replace Required Details, Route to Pharmacy Electronically, [facility] 27107, 157.48, cm, 05/31/20 9:41:00 EST, Height Start [...] Active *Briana Garces, Care Coor dinator, ICP [phone](Confirmed) Active Reflux(Confirmed) Active Hepatic steatosis(Confirmed) Active 06962 -EF 60-65%. No wall motion abnormalities, Does [...]
--- OUTSIDE RECORDS SUMMARY | 2024-01-23 14:23 | XMS_ITS | Continuity of Care Document ---
Author Organization [facility] Address [address], [address], [address] [place] [address]- Care Team Providers Care Feeder Switchboard Operator Name Role Phone Sergo Bazzi MD Primary Care Physician [phone] Encounter [facility] Date(s): 11/19/23 - 12/19/23 [facility] [address] [place], [place] [address] Attending Physician: AdmBroderick enriquez Admitting Physician: [...] (oldterm) 8 01/21/08 Given 1Result Comment: [01/22/2017] [facility] [id number] 2Admin Note: vis given dated 10/24/12 3Admin [...] 100 tablet, 1 Refills, Acute, 219:52:00 EDT, [facility], 157.48, cm, 10/11/20 9:39:00 EDT, Height Start [...] Date: 10/30/23 Stop Date: 10/24/24 Status: Ordered Gzxmr-Ekdgrr-Vmxs 300 mg oral capsule 1 capsule, By Mouth, 2 times a day, NOT COVERED., # 60 capsule, 11 Refills, [facility]126, 157.48, cm, 01/27/21 9:30:00 EDT, Height Start Date: 01/30/21 Status: Ordered ammonium lactate 12% topical cream 1 application, Topically, 2 times a day, # 385 Gm, 1 Refills, Maintenance, 12/22/22 14:16:00 EDT, Cream, [facility]/pharmacy #[id number], Partial fill upon patient request if the prescription is for a schedule IIopioid drug., 1 application Topically 2 times a day... Start Date: 12/22/22 Stop Date: 02/20/23 Status: Ordered Artificial Tears preserved solution 1 drops, Eyes, Both, 2 times a day, PRN for dry eyes, # 15 mL, 0 Refills, Maintenance, 09/10/23 8:57:00 EDT, Solution, [facility]/pharmacy #[id number], Partial fill upon patient request if the prescription is fora schedule II opioid drug., 1 drops Eyes, Both 2 ti... Start Date: 09/10/23 Status: Ordered atorvastatin 80 mg oral tablet See Instructions, TAKE 1 TABLET BY MOUTH DAILY. INSTR:REPLACES SIMVASTATIN, # 90 tablet, 1 Refills,Maintenance, 11/06/23 7:48:00 EDT, [facility], 157, cm, 10/18/23 11:52:00 EDT, Height, 84, kg,07/24/23 12:52:00 EDT, Dry Weight Start Date: 11/06/23 Status: Ordered atorvastatin 80 mg oral tablet 1 tablet, By Mouth, Daily, INSTR:REPLACES SIMVASTATIN, # 90 tablet, 1 Refills, Maintenance, 05/22/23 12:07:00 EST, [facility], 157, cm, 05/06/23 14:23:00 EST, Height, 88.3, kg, 04/16/23 11:33:00EST, Dry Weight Start Date: 05/22/23 Status: Ordered BD Single Use Swab 70% topical pad See Instructions, TO CLEANS BEFORE INJECTIONS 5 X A DAY., # 150 Unknown, 11 Refills, Maintenance, 08/16/22 10:15:00 EDT, [facility], 30, TO CLEANS BEFORE [...] tablet, 5 Refills, Maintenance, 11/06/23 17:25:00 EDT, [facility]/pharmacy #[id number], 1 tablet By Mouth [...] 02/07/24 10:46:00 EST, Route to Pharmacy Electronically, [facility]/pharmacy #[id number], Partial fill... Start Date: 02/07/24 Stop Date: 07/06/24 Status: Ordered diazepam 5 mg oral tablet 5 mg, 1, tablet, By Mouth, 2 times a day, for 30 days, TAKE 1 TABLET BY MOUTH TWICE A DAY., # 60 tablet, Refills 4, Tot. Refills 4, Acute 12/03/24 10:46:00 EDT, 07/06/24 10:46:00 EDT, Route to Pharmacy Electronically, [facility]/pharmacy #[id number], Partial fill... Start Date: 07/06/24 Stop Date: 12/03/24 Status: Ordered diazepam 5 mg oral tablet 5 mg, 1, tablet, By Mouth, 2 times a day, for 30 days, TAKE 1 TABLET BY MOUTH TWICE A DAY., # 60 tablet, Refills 4, Tot. Refills 4, Acute 02/07/24 10:46:00 EST, 09/10/23 10:46:00 EDT, Route to Pharmacy Electronically, [facility]/pharmacy #[id number], Partial fill... Start Date: 09/10/23 Stop Date: 02/07/24 Status: Ordered diclofenac 1% topical gel See Instructions, APPLY TOPICALLY 4 TIMES A DAY NOT TO EXCEED 16 GRAMS/DAY/SINGLE JOINT OF LOWER EXTREMITIES, # 100 Gm, 4 Refills, Maintenance, 09/10/23 8:56:00 EDT, [facility]/pharmacy #[id number], 30, APPLY TOPICALLY 4 [...] capsule, 5 Refills, Maintenance, 07/03/22 18:20:00 EDT, [facility]/pharmacy #[id number], Duplicate Rx. Original sent 07/03/22 with routing error. Re- sending to pharmacy, 157.5, cm... Start Date: 07/03/22 Status: Ordered esomeprazole 40 mg oral enteric coated capsule 1 capsule = 40 mg, By Mouth, Daily, # 90 capsule, 3 Refills, Maintenance, 09/25/23 16:33:00 EDT, [facility]/pharmacy #[id number], Partial fill upon patient request if the prescription is for a schedule II opioid drug., 157, cm, 09/25/23 16:26:00 EDT, Height, 84, k... Start Date: 09/25/23 Status: Ordered esomeprazole 40 mg oral enteric coated capsule 1 capsule = 40 mg, By Mouth, Daily, # 90 capsule, 1 Refills, Maintenance, 09/02/23 16:20:00 EDT, [facility]/pharmacy #[id number], Partial fill upon patient [...] each, 0 Refills, Maintenance, 11/06/23 17:54:00 EDT, [facility]/pharmacy #[id number], 30, 1 puffs Inhalation 2 times a day, 157, cm, 10/18/23 11:52:00 EDT, Height, 84, kg,07/24/23 12:52:00 EDT, Dry Weight Start Date: 11/06/23 Status: Ordered fluticasone 50 mcg/inh nasal spray See Instructions, SPRAY 1 SPRAY INTO EACH NOSTRIL EVERY DAY, # 16 mL, 5 Refills, Maintenance, 11/06/23 17:54:00 EDT, [facility]/pharmacy #[id number], 30, SPRAY 1 SPRAY [...] Ordered FREESTYLE LANCETS MIS Miscellaneous FREESTYLE LANCETS [facility] [employer] Miscellaneous, See Instructions, # 100 Unknown, 5 [...] tablet, 4 Refills, Maintenance, 11/06/23 17:54:00 EDT, [facility]/pharmacy #[id number], 157, cm, 10/18/23 11:52:00 [...] mL, 6 Refills, Maintenance, 07/24/23 13:20:00 EDT, [facility], Partial fill upon patient request if the prescription is for a schedule II opioid drug., 157, cm, 07/24/23 12:52:00... Start Date: 07/24/23 Status: Ordered hydrOXYzine hydrochloride 25 mg oral tablet 1 tablet = 25 mg, By Mouth, 2 times a day, as needed for anxiety, # 60 tablet, 4 Refills, Soft Stop, 02/07/24 10:47:00 EST, Tablet, [facility]/pharmacy #[id number], Partial fill upon patient [...] 02/07/24 10:47:00 EST, 09/10/23 10:47:00 EDT, Tablet, [facility]/pharmacy #[id number], Partial fillupon patient request if the prescription is for a s... Start Date: 09/10/23 Stop Date: 02/07/24 Status: Ordered lactase 3000 u oral tablet 3 tablet, By Mouth, 3 times a day with meals, X30 DAYS., # 120 tablet, 3 Refills, Maintenance, 11/06/23 7:51:00 EDT, [facility]/pharmacy #[id number], 157, cm, 10/18/23 11:52:00 EDT, Height, 84, kg, 07/24/23 12:52:00 EDT, Dry Weight Start Date: 11/06/23 Status: Ordered Lantus Solostar Pen 100 units/mL subcutaneous solution See Instructions, INJECT 45 UNITS SUBCUTANEOUSLY EVERY MORNING AND EVERY NIGHT AT BEDTIME, # 15 mL,1 Refills, Maintenance, 12/09/23 14:13:00 EDT, [facility], 157, cm, 10/18/23 11:52:00 EDT, Height, 84, kg, 07/24/23 12:52:00 EDT, Dry... Start Date: 12/09/23 Status: Ordered levothyroxine 0.1 mg oral tablet 1 tablet = 100 mcg, By Mouth, Daily, # 90 tablet, 3 Refills, Maintenance, 12/19/23 16:28:00 EDT, [id number], 157, cm, 12/17/23 11:46:00 EDT, Height, 84, kg, 07/24/23 12:52:00 EDT, Dry Weight Start Date: 12/19/23 Stop Date: 12/13/24 Status: Ordered lidocaine 5% topical ointment See Instructions, APPLY TO AFFECTED AREA 3 TIMES A DAY, # 35.44 Gm, 3 Refills, Maintenance, 11/06/23 7:51:00 EDT, [facility]/pharmacy #[id number], 30, Duplicate Rx. Original [...] 2 Refills, Maintenance, 11/05/23 18:01:00 EDT, Capsule, [id number], Partial fill upon patient request if the prescription is for a schedule II opioid drug., 157, c... Start Date: 11/05/23 Status: Ordered mirtazapine 15 mg oral tablet 1 tablet = 15 mg, By Mouth, Daily at bedtime, # 30 tablet, 4 Refills, Maintenance, 02/07/24 10:47:00 EST, Tablet, [id number], Partial fill upon [...] 02/07/24 10:47:00 EST, 09/10/23 10:47:00 EDT, Tablet, [facility]/pharmacy #[id number], Partial fill upon patient request if the prescription is for a schedule II opioid dr... Start Date: 09/10/23 Stop Date: 02/07/24 Status: Ordered Murine Ear Drops 6.5% solution See Instructions, INSTILL 5 DROPS INTO BOTH EARS TWICE DAILY FOR 7 DAYS, # 15 mL, 0 Refills, Maintenance, 09/30/23 10:01:00 EDT, [facility], 30, INSTILL 5 DROPS INTO BOTH EARS TWICE DAILY FOR 7 DAYS, 157, cm, 09/25/23 16:26:00 EDT, Height, 84, kg... Start Date: 09/30/23 Status: Ordered Narcan 4 mg/0.1 mL nasal spray = 4 mg, Nares, Both, Once, # 2 each, 2 Refills, Soft Stop, 02/22/23 14:30:00 EST, [facility]/pharmacy #[id number], Partial fill upon patient request if the prescription is for a schedule II opioid drug., 157.5, cm, 02/19/23 9:20:00 EST, Height Start Date: 02/22/23 Status: Ordered [place]-3 Fish Oil 1000 mg oral capsule 1 capsule = 1,000 mg, By Mouth, Daily, # 90 capsule, 1 Refills, Maintenance, 08/01/22 10:17:00 EDT,[facility]/pharmacy #[id number], Partial fill upon patient [...] tablet, 2 Refills, Maintenance, 07/03/23 14:40:00 EDT, [facility] ST[facility] 85275, 157, cm, 06/24/23 14:54:00 EDT, Height, 88.3, [...] mL, 11 Refills, Maintenance, 08/23/23 11:17:00 EDT, [facility], Partial fill upon patient request if... Start Date: 08/23/23 Status: Ordered Pen [place], 31 G x 8 mm BD Ultra [...] 02/07/24 10:47:00 EST, Route to Pharmacy Electronically, [facility]/pharmacy #[id number], Partial fill upon patient request if the prescription is for a schedule II opi... Start Date: 02/07/24 Stop Date: 07/06/24 Status: Ordered QUEtiapine 25 mg oral tablet 25 mg, 1, tablet, By Mouth, 2 times a day, for 30 days, # 60 tablet, Refills 4, Tot. Refills 4, Hard Stop 02/07/24 10:47:00 EST, 09/10/23 10:47:00 EDT, Route to Pharmacy Electronically, [facility]/pharmacy #[id number], Partial fill upon patient request if the pres... Start Date: 09/10/23 Stop Date: 02/07/24 Status: Ordered customer development manager grabber tool customer development manager grabber tool, See Instructions, # 1 each, Refills 0, Tot. Refills 0, Maintenance, please dispense one customer development manager grabber tool, ICD 10 M54.6, length of [...] tablet, 10 Refills, Maintenance, 10/08/23 15:43:00 EDT, [facility], 157, cm, 09/25/23 16:26:00 EDT, Height, 84, kg, 07/24/23 12:52:00 EDT, Dry Weight Start Date: 10/08/23 Status: Ordered valACYclovir 500 mg oral tablet See Instructions, TAKE 1 TABLET BY MOUTH 2 TIMES A DAY,X3 DAYS, NEEDED FOR OUTBREAKS, # 6 tablet, Refills 0, Maintenance, 11/06/23 7:49:00 EDT, Instructions Replace Required Details, Route to Pharmacy Electronically, [facility], 157, cm, 10/17... 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 No wall motion abnormalities, Does [...] Name: Rose Mary FISCHER, Sergo Cole Position: [facility] Physician - Primary Care Member Role: PCP Address: Address: [address] [place] [address] [place] [address]- Name: Lizbeth Collins [place] Position: [facility] Office Staff Member Role: Primary Care Nurse Care Team Related Persons Name: LB HENLEY Address: home [address] [address] Name: LB HENLEY Address: home [address] [place] [address] Name: MILENA CUBA Address: home [address] [place] [address]
--- OUTSIDE RECORDS SUMMARY | 2024-01-23 14:23 | XMS_ITS | Continuity of Care Document ---
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 Name Role Phone Rose Mary FISCHER, Sergo Cole Primary Care Physician [phone] [facility]counter [facility] Date(s): 12/14/21 - 01/13/22 [facility] [address] [place], [place] [address] Attending Physician: Admmina, [id number] Admitting Physician: Admtr, [id number] Referring Physician: Admtr, [...] [01/22/2017] [facility] [id number] 2Admin Note: vis given dated 10/24/12 3Admin Note: vis given dated 10/01/11 4Admin Note: vis 5Admin Note: vis 6Admin Note: vis given: 10/27/2006 7Admin Note: vis given : 10/10/2005 8Admin Note: vis given 2007- Medications acetaminophen 500 mg oral tablet 2 tablet, By Mouth, 4 times a day, PRN NEEDED FOR PAIN, # 100 tablet, 1 Refills, Acute, 219:52:00 EDT, [facility], 157.48, cm, 10/11/20 9:39:00 EDT, Height Start Date: 10/26/20 Status: Ordered Alcohol Pads See Instructions, # 200 each, Refills 11, Tot. Refills 11, Maintenance, To cleans before injections5 x a day., 03/03/21 9:18:00 EST, E11.65, [facility], 157.48, cm, 03/01/21 15:54:00 EST, Height Start Date: 03/03/21 Stop Date: 02/26/22 Status: Ordered Lrqtq-Hffajo-Nfxn 300 mg oral capsule 1 capsule, By Mouth, 2 times a day, NOT COVERED., # 60 capsule, 11 Refills, [facility] 387[facility], 157.48, cm, 01/27/21 9:30:00 EDT, Height Start Date: 01/30/21 Status: Ordered ammonium lactate 12% topical cream 1 application, Topically, 2 times a day, # 385 Gm, 5 Refills, Maintenance, 09/08/21 9:35:00 EDT, Cream, [facility]/pharmacy #[id number], Partial fill upon patient request if the prescription is for a schedule II opioid drug., 1 application Topically 2 times a day,... Start Date: 09/08/21 Stop Date: 03/07/22 Status: Ordered atorvastatin 80 mg oral tablet 1 tablet = 80 mg, By Mouth, Daily, for 90 days, replaces Simvastatin, # 90 tablet, 4 Refills, Hard Stop 08/26/22 14:22:00 EDT, 06/02/21 14:22:00 EST, Tablet, [id number], replaces simvastatin,157.48, cm, 06/02/21 14:20:00 EST, Height Start Date: 06/02/21 Stop Date: 08/26/22 Status: Ordered atorvastatin 80 mg oral tablet 1 tablet = 80 mg, By Mouth, Daily, replaces Simvastatin, # 90 tablet, 4 Refills, Maintenance, 08/26/22 14:22:00 EDT, Tablet, [id number], replaces simvastatin, 157.5, cm, 11/29/21 15:59:00 EDT, Height Start Date: 08/26/22 Stop Date: 11/19/23 Status: Ordered Daily David oral tablet 1 tablet, By Mouth, Daily, INSTR:TAKE IT 2 HOURS SEPARATE FROM ORLISTAT ([place]), # 30 tablet, 11 Refills, Maintenance, 08/19/20 16:26:00 EDT, [facility] STORE [facility], 30, TAKE 1 TABLET BY MOUTH DAILY. INSTR:TAKE IT 2 HOURS SEPARATE FROM ORLISTAT ([place]), 157.48... Start Date: 08/19/20 Status: Ordered diazepam 5 mg oral tablet TAKE 1/2 TABLET BY MOUTH EVERY MORNING AND TAKE 1 TAB BY MOUTH AT BEDTIME Start Date: 06/02/21 Status: Ordered diclofenac 1% topical gel 1 application, Topically, 4 times a day, for 30 days, not to exceed 16 grams/day/single joint of lower extremities, # 100 Gm, 6 Refills, Hard Stop 03/30/22 13:11:00 EST, 09/01/21 13:11:00 EDT, Gel, [id number], 157.48, cm, 08/24/21 8:03:00 EDT,... Start Date: 09/01/21 Stop Date: 03/30/22 Status: Ordered diclofenac 1% topical gel 1 application, Topically, 4 times a day, not to exceed 16 grams/day/single joint of lower extremities, # 100 Gm, 0 Refills, Maintenance, 03/30/22 13:11:00 EST, Gel, [id number], 157.5, cm, 11/29/21 15:59:00 EDT, Height Start Date: 03/30/22 Stop Date: 04/29/22 Status: Ordered docusate sodium 100 mg oral capsule 100 mg, 1, capsule, By Mouth, 2 times a day, PRN, # 60 capsule, Refills 5, Tot. Refills 5, Maintenance, as needed for constipation, 11/10/21 9:17:00 EDT, [id number] Partial fill upon patient request if [...] # 16 mL, 5 Refills, 12/29/21 15:10:00 EDT,[facility]/pharmacy #[id number], USE 1 SPRAY IN EACH NOSTRIL EVERY DAY, 157.5, cm, 11/29/21 15:59:00 EDT, Height Start Date: 12/29/21 Status: Ordered Lantus Solostar Pen 100 units/mL subcutaneous solution See Instructions, Take 80 units via Subcutaneous Infusion Daily at bedtime. E11.9., # 30 mL, 9 Refills, Maintenance, 08/24/21 9:25:00 EDT, [facility], Partial fill upon patient request if the prescription is for a schedule II opioid d... Start Date: 08/24/21 Status: Ordered Lantus Solostar Pen 100 units/mL subcutaneous solution See Instructions, Decreased to 60U once a day as of 12/29/19, # 30 mL, 9 Refills, Maintenance, 09/20/20 15:10:00 EDT, [facility], NEEDS 30 ML FOR 30 DAY SUPPLY E11.9, 157.48, cm, 05/31/20 9:41:00 EST, Height Start Date: 09/20/20 Status: Ordered lidocaine 5% topical ointment See Instructions, APPLY TO AFFECTED AREA 3 TIMES A DAY, # 35.44 Gm, 11 Refills, [facility], 30, APPLY TO AFFECTED AREA 3 TIMES A DAY, 157.5, cm, 11/07/21 10:51:00 EDT, Height Start Date: 11/09/21 Status: Ordered losartan 50 mg oral tablet 1 tablet, By Mouth, Daily, # 30 tablet, 5 Refills, 12/08/21 16:06:00 EDT, [id number], 157.5, cm, 11/29/21 15:59:00 EDT, Height [...] UNTIL 05/01/21 Start Date: 06/02/21 Status: Ordered simethicone 125 mg oral tablet, [...] # 12 tablet, 7 Refills, Physician Stop 05/29/22 20:00:00 EST, 11/16/21 8:13:00 EDT, [id number], 157.5, cm, 11/07/21 10:51:00 EDT, Height Start Date: 11/16/21 Stop Date: 05/29/22 Status: Ordered Topamax 25 mg oral tablet 3 tablet = 75 mg, By Mouth, Daily at bedtime, # 90 tablet, 6 Refills, Maintenance, 11/16/21 8:12:00EDT, Tablet, [id number], 157.5, cm, 11/07/21 10:51:00 EDT, Height Start Date: 11/16/21 Stop Date: 06/14/22 Status: Ordered Trulicity Pen 3 mg/0.5 mL subcutaneous solution See Instructions, INJECT 0.5ML SUBCUTANEOUSLY EVERY WEEK, ROTATE INJECTION SITES, # 2 mL, 5 Refills, 08/24/21 9:20:00 EDT, [facility], 157.48, cm, 08/24/21 8:03:00 EDT, Height Start Date: 08/24/21 Status: Ordered Vascepa 1 g oral capsule 2 capsule = 2 Gm, By Mouth, 2 times a day, # 360 capsule, 5 Refills, Maintenance, 05/03/20 15:59:00EST, Capsule, [id number], 157.48, cm, 03/04/20 14:14:00 EST, Height Start Date: 05/03/20 Status: Ordered Problem List Condition Confirmation Course [...] of left foot Confirmed Active Obese class II Confirmed Active Obesity Confirmed Active Obesity monitoring Confirmed Active SOTRMY (obstructive sleep apnea) 4 Confirmed Active Osteoarthritis, L knee mild tricompartmental Confirmed Active PAIN IN JOINT INVOLVING MULTIPLE SITES Confirmed Active 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
--- OUTSIDE RECORDS SUMMARY | 2024-01-23 14:24 | XMS_ITS | Continuity of Care Document ---
Author Organization [facility] Address [address] [place] [address]- Care Team Providers Care Senior Advisory Name Role Phone Rose Mary FISCHER, Sergo Cole Primary Care Physician Encounter [facility] Date(s): 11/16/19 - 12/16/19 [facility] [address] [place] [address]- [facility] Allergies, Adverse Reactions, Alerts Substance Reaction Severity [...] (oldterm) 8 01/21/08 Given 1Result Comment: [01/22/2017] [facility] [id number] 2Admin Note: vis given dated 10/24/12 3Admin [...] mL, 5 Refills, Maintenance, 09/02/19 13:54:00 EDT, [facility], E11.9, 157.48, cm, 04/27/19 [...] Refills, Maintenance, 05/05/19 11:32:00 EST, [facility], 157.48, cm, 04/27/19 15:43:00 EST, Height Start Date: 05/05/19 Status: Ordered atorvastatin 80 mg oral tablet 1 tablet = 80 mg, By Mouth, Daily, replaces Simvastatin, # 90 tablet, 0 Refills, Maintenance, 12/14/19 17:01:00 EDT, Tablet, [id number], replaces simvastatin, 157.48, cm, 04/27/19 15:43:00 EST, Height Start Date: 12/14/19 Stop Date: 03/13/20 Status: Ordered BD ultra fine III pen needles [id number] BD ultra fine III pen needles [id number], See Instructions, # 360 each, Refills 3, [...] 60 Gm, 4 Refills, Acute, [facility], 30, APPLY TO AFFECTED AREA TWICE A [...] 6 Refills, Maintenance, 08/14/19 8:50:00 EDT, Gel, [facility]/pharmacy #[id number], 157.48, cm, 04/27/19 15:43:00 EST, Height [...] 2 Refills, Maintenance, 11/13/19 18:59:00 EDT, Tablet, [facility], 157.48, cm, 04/27/19 15:43:00 [...] Gm, 1 Refills, Maintenance, 12/10/19 12:46:00 EDT, [facility]/pharmacy #[id number], 1 sprays Nares, Both Daily,x30 [...] 3, Maintenance, use up to check blood [id number] per day. 90 DAY SUPPLY, E11.9, 08/21/19 [...] mL, 11 Refills, Maintenance, 09/02/19 13:55:00 EDT, [facility], NEEDS 30 ML [...] 11 Refills, Maintenance, 05/15/19 15:00:00 EST, Ointment, [facility]/pharmacy #[id number], 1 application Topically 3 times a day,x30 days, 157.48, cm, 04/27/19 15:43:00 EST, Height Start Date: 05/15/19 Stop Date: 05/09/20 Status: Ordered losartan 50 mg oral tablet 50 mg, 1, tablet, By Mouth, Daily, can substitute 25mg tabs x2 if needed, # 30 tablet, Refills 5, Tot. Refills 5, Maintenance, 06/22/19 15:26:00 EDT, Route to Pharmacy Electronically, [facility] #[id number], 157.48, cm, 04/27/19 15:43:00 EST, Height Start Date: 06/22/19 Stop Date: 12/19/19 Status: Ordered mirtazapine 15 mg oral tablet TAKE 1 TABLET BY MOUTH EVERY DAY IN THE EVENING Start Date: 10/14/18 Status: Ordered multivitamin Multiple Vitamins oral tablet 1 tablet, By Mouth, Daily, Take it 2 hours separate from Orlistat ([place]), # 90 tablet, 4 Refills, Maintenance, 08/14/19 8:49:00 EDT, Tablet, [facility]/pharmacy #[id number], 1 tablet By Mouth Daily,x90 days,Instr:Take it 2 hours separate from Orlistat ([place]), 157.... Start Date: 08/14/19 Stop Date: 11/06/20 Status: Ordered oxyCODONE 5 mg oral tablet 5 mg, 1, tablet, By Mouth, Every 12 hours, PRN, Refills 0, Tot. Refills 0, Maintenance, as needed for pain, 02/16/19 14:51:00 EST, Partial fill upon patient request Start Date: 02/16/19 Status: Ordered Pen Mallie, 31 G x 8 mm BD Ultra [...] 3 Refills, Maintenance, 12/13/20 15:26:00 EDT, Solution, [facility], E11.65, 157.48, cm, 04/27/19 15:43:00 EST, Height Start Date: 12/13/20 Stop Date: 12/08/21 Status: Ordered Trulicity Pen 1.5 mg/0.5 mL subcutaneous solution 0.5 mL = 1.5 mg, Subcutaneous Injection, Every Saturday, for 90 days, # 6.5 mL, 5 Refills, Hard Stop 12/13/20 15:26:00 EDT, 06/22/19 15:26:00 EDT, Solution, [facility]/pharmacy #[id number], E11.65, 157.48, cm, 04/27/19 15:43:00 [...] Active *Briana Garces, Care Coor dinator, ICP [phone](Confirmed) Active Reflux(Confirmed) Active 00818 -EF 60-65%. No wall motion abnormalities, Does [...]
--- OUTSIDE RECORDS SUMMARY | 2024-01-23 14:24 | XMS_ITS | Continuity of Care Document ---
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 Name Role Phone Sergo Bazzi MD Primary Care Physician [place] [facility] [place]/22 [facility] [address], [address], [address] [place] [address]- Attending Physician: Sammy REIS, Kanu Wheeler Referring Physician: Sergo Bazzi MD Allergies, Adverse Reactions, Alerts Substance Reaction [...] 8 01/21/08 Given 1Result Comment: [01/22/2017] [facility] [id number] 2Admin Note: vis given dated 10/24/12 3Admin Note: vis given dated 10/01/11 4Admin Note: vis 5Admin Note: vis 6Admin Note: vis given: 10/27/2006 7Admin Note: vis given : 10/10/2005 8Admin Note: vis given 2007- Medications acetaminophen 500 mg oral tablet 2 tablet, By Mouth, 4 times a day, PRN NEEDED FOR PAIN, # 100 tablet, 1 Refills, Acute, 219:52:00 EDT, [facility], 157.48, cm, 10/11/20 9:39:00 EDT, Height Start Date: 10/26/20 Status: Ordered Alcohol Pads See Instructions, # 200 each, Refills 11, Tot. Refills 11, Maintenance, To cleans before injections5 x a day., 03/03/21 9:18:00 EST, E11.65, Compound, 157.48, cm, 03/01/21 15:54:00 EST, Height Start Date: 03/03/21 Stop Date: 02/26/22 Status: Ordered Xkjjk-Gveclg-Icsi 300 mg oral capsule 1 capsule, By Mouth, 2 times a day, NOT COVERED., # 60 capsule, 11 Refills, [facility], 157.48, cm, 01/27/21 9:30:00 EDT, Height Start Date: 01/30/21 Status: Ordered ammonium lactate 12% topical cream 1 application, Topically, 2 times a day, # 385 Gm, 3 Refills, Maintenance, 04/05/22 13:30:00 EST, Cream, [facility]/pharmacy #[id number], Partial fill upon patient request if the prescription is for a schedule IIopioid drug., 1 application Topically 2 times a day... Start Date: 04/05/22 Stop Date: 08/03/22 Status: Ordered atorvastatin 80 mg oral tablet 1 tablet = 80 mg, By Mouth, Daily, replaces Simvastatin, # 90 tablet, 4 Refills, Maintenance, 08/26/22 14:22:00 EDT, Tablet, [facility]/pharmacy #[id number], replaces simvastatin, 157.5, cm, 11/29/21 15:59:00 EDT, Height Start Date: 08/26/22 Stop Date: 11/19/23 Status: Ordered capsaicin 0.075% topical cream See Instructions, APPLY TO AFFECTED AREA TWICE A DAY, # 57 Gm, 4 Refills, Maintenance, 03/05/22 13:29:00 EST, [facility], 30, APPLY TO AFFECTED AREA TWICE A [...] tablet, 11 Refills, Maintenance, 08/19/20 16:26:00 EDT, [facility], 30, TAKE 1 TABLET BY MOUTH DAILY. [...] Gm, 6 Refills, Maintenance, 03/19/22 9:28:00 EST, [facility], 30, APPLY TOPICALLY 4 TIMES A DAY NOT TO EXCEED 16 GRAMS/DAY/SINGLE... Start Date: 03/19/22 Status: Ordered docusate sodium 100 mg oral capsule 100 mg, 1, capsule, By Mouth, 2 times a day, PRN, # 60 capsule, Refills 5, Tot. Refills 5, Maintenance, as needed for constipation, 11/10/21 9:17:00 EDT, [facility], [facility] each, 0 Refills, Maintenance, 03/22/22 16:35:00 EST, [facility], 30, INHALE 1 PUFF BY MOUTH TWICE A DAY, 157.5, cm, 03/22/22 13:25:00 EST, Height Start Date: 03/22/22 Status: Ordered fluticasone 50 mcg/inh nasal spray See Instructions, USE 1 SPRAY IN EACH NOSTRIL EVERY DAY, # 16 mL, 5 Refills, 12/29/21 15:10:00 EDT,[facility]/pharm[facility] #[id number], USE 1 SPRAY IN [...] mL, 3 Refills, Maintenance, 03/22/22 15:43:00 EST, [facility], Partial fill upon patie... Start Date: 03/22/22 Status: Ordered Lantus Solostar Pen 100 units/mL subcutaneous solution See Instructions, Decreased to 60U once a day as of 12/29/19, # 30 mL, 9 Refills, Maintenance, 09/20/20 15:10:00 EDT, [facility], NEEDS 30 ML FOR 30 DAY SUPPLY E11.9, 157.48, cm, 05/31/20 9:41:00 EST, Height Start Date: 09/20/20 Status: Ordered Lantus Solostar Pen 100 units/mL subcutaneous solution See Instructions, Take 80 units via Subcutaneous Infusion Daily at bedtime. E11.9., # 30 mL, 9 Refills, Maintenance, 03/22/22 15:41:00 EST, [facility], Partial fill upon patient request [...] 5 Refills, Maintenance, 09/18/21 12:21:00 EDT, Capsule, [facility]/pharmacy #[id number], [...] Refills, Maintenance, 03/30/22 10:50:00 EST, EC Tablet, [facility]/pharmacy #[id number], Partial fill upon patient request if the prescription is for a schedule II opioid drug., 157.5,... Start Date: 03/30/22 Status: Ordered oxyCODONE 10 mg oral tablet TAKE 1/2 TAB EVERY 12 HOURS NEEDED FOR SEVERE NECK/LOW BACK PAIN. DO NOT FILL UNTIL 05/01/21 Start Date: 06/02/21 Status: Ordered Pen [place], 31 G x 8 mm BD Ultra [...] 1 Refills, Maintenance, 04/11/22 11:31:00 EST, Tablet, [facility]/pharmacy #[id number], Partial fill upon patient request if the prescription is for a schedule II opioid drug., 157.5, cm, 04/11/22 10:50:00 EST, Height Start Date: 04/11/22 Status: Ordered pai gow manager grabber tool pai gow manager grabber tool, See Instructions, # 1 each, Refills 0, Tot. Refills 0, Maintenance, please dispense one pai gow manager grabber tool, ICD 10 M54.6, length of use 1 month, 04/12/22 10:13:00 EST, Supply Start Date: 04/12/22 Status: Ordered SUMAtriptan 25 mg oral tablet 1 tablet, By Mouth, Daily, PRN NEEDED FOR MIGRAINES, for 30 days, MAY RPT DOSE AFTER 2 HRS TO MAX OF 2, # 12 tablet, 7 Refills, Physician Stop 12/15/22 14:36:00 EDT, 04/19/22 14:36:00 EST, [facility]/pharmacy #[id number], 157.5, cm, 04/11/22 10:50:00 EST, Height Start Date: 04/19/22 Stop Date: 12/15/22 Status: Ordered Topamax 25 mg oral tablet 3 tablet = 75 mg, By Mouth, Daily at bedtime, # 90 tablet, 6 Refills, Maintenance, 04/19/22 14:35:00 EST, Tablet, [facility]/pharmacy #[id number], 157.5, cm, 04/11/22 10:50:00 EST, Height Start Date: 04/19/22 Stop Date: 11/15/22 Status: Ordered Trulicity Pen 3 mg/0.5 mL subcutaneous solution See Instructions, INJECT 0.5ML SUBCUTANEOUSLY EVERY WEEK, ROTATE INJECTION SITES, # 2 mL, 5 Refills, 01/23/22 16:33:00 EDT, [facility], 157.5, cm, 01/20/22 13:38:00 EDT, Height Start Date: 01/23/22 Status: Ordered Trulicity Pen 4.5 mg/0.5 mL subcutaneous solution See Instructions, 4.5 mg Subcutaneous Infusion weekly. E11.9, # 4 each, 5 Refills, Maintenance, 03/22/22 15:41:00 EST, [facility], Partial fill upon patient request if the prescription is for a schedule II opioid drug., 157.5, cm, ... Start Date: 03/22/22 Status: Ordered Vascepa 1 g oral capsule 2 capsule = 2 Gm, By Mouth, 2 times a day, # 360 capsule, 5 Refills, Maintenance, 05/03/20 15:59:00EST, Capsule, [facility]/pharmacy #[id number], 157.48, cm, 03/04/20 14:14:00 EST, Height Start Date: 05/03/20 Status: Ordered Ventolin HFA 108 mcg/inh inhalation aerosol with adapter 1 puffs, Inhalation, 4 times a day, PRN NEEDED FOR WHEEZING, # 18 each, 0 Refills, Maintenance, 04/04/22 12:59:00 EST, [facility] 95715, 157.5, cm, 03/22/22 13:25:00 EST, Height Start [...] 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 *Briana Garces, Excavator Operator, ICP [phone] Confirmed Active Reflux Confirmed Active Severe obesity [...] Name: Rose Mary FISCHER, Sergo Cole Position: S Primary Care Physician Member Role: PCP Address: Address: [address] [facility] [place] [address]- Care Team Related Persons Name: LB HENLEY Address: [address] [place] [address] Name: LB HENLEY Address: home [address] [address] Name: MILENA CUBA Address: home [address] [place] [address]
--- OUTSIDE RECORDS SUMMARY | 2024-01-23 14:24 | XMS_ITS | Continuity of Care Document ---
Author Organization [facility] Address [address] [place] [address]- Care Team Providers Care Front End Developer Name Role Phone Rose Mary FISCHER, Sergo Cole Primary Care Physician [phone] [place] [facility] [place] 07/17/22 - 11/14/22 [facility] [address] [place] [address]- Attending Physician: Kanu Noel MD Admitting Physician: Kanu Noel MD Referring Physician: Diann SANDAL PARTS ASSEMBLER, Anyi Allergies, Adverse Reactions, Alerts Substance Reaction Severity [...] (oldterm) 8 01/21/08 Given 1Result Comment: [01/22/2017] [facility] [id number] 2Admin Note: vis given dated 10/24/12 3Admin Note: vis given dated 10/01/11 4Admin Note: vis 5Admin Note: vis 6Admin Note: vis given: 10/27/2006 7Admin Note: vis given : 10/10/2005 8Admin Note: vis given 2007- Medications acetaminophen 500 mg oral tablet 2 tablet, By Mouth, 4 times a day, PRN NEEDED FOR PAIN, # 100 tablet, 1 Refills, Acute, 219:52:00 EDT, [facility], 157.48, cm, 10/11/20 9:39:00 EDT, Height Start Date: 10/26/20 Status: Ordered Alcohol Pads See Instructions, # 200 each, Refills 11, Tot. Refills 11, Maintenance, To cleans before injections5 x a day., 03/03/21 9:18:00 EST, E11.65, Compound, 157.48, cm, 03/01/21 15:54:00 EST, Height Start Date: 03/03/21 Stop Date: 02/26/22 Status: Ordered Oxhmx-Phgqvw-Agdv 300 mg oral capsule 1 capsule, By Mouth, 2 times a day, NOT COVERED., # 60 capsule, 11 Refills, [facility], 157.48, cm, 01/27/21 9:30:00 EDT, Height Start Date: 01/30/21 Status: Ordered ammonium lactate 12% topical cream 1 application, Topically, 2 times a day, # 385 Gm, 3 Refills, Maintenance, 08/24/22 14:16:00 EDT, Cream, [facility]pharmacy #8371, Partial fill upon patient request if the prescription is for a schedule IIopioid drug., 1 application Topically 2 times a day... Start Date: 08/24/22 Stop Date: 12/22/22 Status: Ordered atorvastatin 80 mg oral tablet 1 tablet = 80 mg, By Mouth, Daily, replaces Simvastatin, # 90 tablet, 4 Refills, Maintenance, 08/26/22 14:22:00 EDT, Tablet, [facility]pharmacy #[id number], replaces simvastatin, 157.5, cm, 11/29/21 15:59:00 EDT, Height Start Date: 08/26/22 Stop Date: 11/19/23 Status: Ordered BD Single Use Swab 70% topical pad See Instructions, TO CLEANS BEFORE INJECTIONS 5 X A DAY., # 150 Unknown, 11 Refills, Maintenance, 08/16/22 10:15:00 EDT, [facility], 30, TO CLEANS BEFORE INJECTIONS 5 X A DAY., 157.5, cm, 08/01/22 9:27:00 EDT, Height Start Date: 08/16/22 Status: Ordered capsaicin 0.075% topical cream See Instructions, APPLY TO AFFECTED AREA TWICE A DAY, # 57 Gm, 4 Refills, Maintenance, 08/24/22 14:16:00 EDT, [facility]pharmacy #[id number], 30, APPLY TO AFFECTED AREA [...] tablet, 11 Refills, Maintenance, 07/09/22 10:30:00 EDT, [facility]pharmacy #[id number], 30, 1 tablet By Mouth [...] 6 Refills, Maintenance, 08/24/22 14:16:00 EDT, [facility]pharmacy #[id number], 30, APPLY TOPICALLY 4 TIMES A DAY NOT TO EXCEED 16 GRAMS/DAY/SIN... Start Date: 08/24/22 Status: Ordered docusate sodium 100 mg oral capsule See Instructions, TAKE 1 CAPSULE BY MOUTH TWICE A DAY NEEDED FOR CONSTIPATION, # 60 capsule, 5 Refills, Maintenance, 07/03/22 18:20:00 EDT, [facility]pharmacy #[id number], Duplicate Rx. Original sent 07/03/22 with routing error. Re- sending to pharmacy, 157.5, cm... Start Date: 07/03/22 Status: Ordered docusate sodium 100 mg oral capsule 100 mg, 1, capsule, By Mouth, 2 times a day, PRN, # 60 capsule, Refills 5, Tot. Refills 5, Maintenance, as needed for constipation, 06/12/22 9:52:00 EDT, Route to Pharmacy Electronically, [facility]/pharmacy #[id number], Partial fill upon patient request [...] Refills, Maintenance, 09/20/22 9:36:00 EDT, [facility], 30, INHALE 1 PUFF BY MOUTH TWICE A DAY, 157.5, cm, 09/05/22 16:22:00 EDT, Height Start Date: 09/20/22 Status: Ordered fluticasone 50 mcg/inh nasal spray See Instructions, SPRAY 1 SPRAY INTO EACH NOSTRIL EVERY DAY, # 16 mL, 5 Refills, Maintenance, 07/05/22 16:20:00 EDT, [facility], 30, SPRAY 1 SPRAY INTO EACH NOSTRIL [...] Refills, Maintenance, 08/17/22 9:03:00 EDT, Tablet, [facility]pharmacy #[id number], Partial fill upon patient request [...] 11 Refills, Maintenance, 02/28/22 8:51:00 EST, [facility] #[id number], 30, APPLY TO AFFECTED AREA 3 TIMES A DAY, 157.5, cm, 02/21/22 14:36:00 EST, Height Start Date: 02/28/22 Status: Ordered lidocaine 5% topical ointment See Instructions, APPLY TO AFFECTED AREA 3 TIMES A DAY, # 35.44 Gm, 11 Refills, Maintenance, 07/03/22 18:22:00 EDT, [facility]pharm[facility] #[id number], 30, Duplicate Rx. Original sent [...] Date: 10/18/22 Stop Date: 01/16/23 Status: Ordered Lester-3 Fish Oil 1000 mg oral capsule 1 capsule = 1,000 mg, By Mouth, Daily, # 90 capsule, 1 Refills, Maintenance, 08/01/22 10:17:00 EDT,[facility]/pharmacy #[id number], Partial fill upon patient request if the prescription is for a schedule II opioid drug., 157.5, cm, 08/01/22 9:27:00 EDT, Height Start Date: 08/01/22 Status: Ordered omeprazole 20 mg oral delayed release tablet 1 tablet = 20 mg, By Mouth, 2 times a day, do not crush or chew, # 60 tablet, 2 Refills, Maintenance, 06/14/22 16:40:00 EDT, EC Tablet, [facility]/pharmacy #[id number], Partial fill upon patient request if the prescription is for a schedule II opioid drug., 157.5,... Start Date: 06/14/22 Status: Ordered oxyCODONE 10 mg oral tablet TAKE 1/2 TAB EVERY 12 HOURS NEEDED FOR SEVERE NECK/LOW BACK PAIN. DO NOT FILL UNTIL 05/01/21 Start Date: 06/02/21 Status: Ordered Pen [place], 31 G x 8 mm BD Ultra [...] 13:31:00 EDT, Route to Pharmacy Electronically, [facility]/pharmacy #[id number], Partial fill upon patient request if the prescription is for a schedule II opi... Start Date: 08/30/22 Stop Date: 01/27/23 Status: Ordered civil lawyer grabber tool civil lawyer grabber tool, See Instructions, # 1 each, Refills 0, Tot. Refills 0, Maintenance, please dispense one civil lawyer grabber tool, ICD 10 M54.6, length of use 1 month, 04/12/22 10:13:00 EST, Supply Start Date: 04/12/22 Status: Ordered replacement hospital bed with mattress replacement hospital bed with mattress, See Instructions, # 1 each, Refills 0, Tot. Refills 0, Maintenance, please dispense 1 replacement hospital bed [facility] mattress, DX G89.4, length of use lifetime, 06/20/22 14:20:00 EDT, Supply Start Date: 06/20/22 Status: Ordered simethicone 125 mg oral tablet, chewable 1 tablet = 125 mg, Chew, 4 times a day, PRN gas pain, for 21 days, # 48 tablet, 4 Refills, Acute 12/07/22 14:16:00 EDT, 08/24/22 14:16:00 EDT, Chew Tablet, [facility]/pharmacy #[id number], Partial fill upon patient request [...] 12/15/22 14:36:00 EDT, 04/19/22 14:36:00 EST, [facility]/pharmacy #[id number], 157.5, cm, 04/11/22 10:50:00 EST, Height Start Date: 04/19/22 Stop Date: 12/15/22 Status: Ordered Topamax 25 mg oral tablet 3 tablet = 75 mg, By Mouth, Daily at bedtime, # 90 tablet, 6 Refills, Maintenance, 06/26/22 10:14:00 EDT, Tablet, [facility], 157.5, cm, 06/21/22 8:43:00 EDT, Height Start Date: 06/26/22 Stop Date: 01/22/23 Status: Ordered Trulicity Pen 3 mg/0.5 mL subcutaneous solution See Instructions, INJECT 0.5ML SUBCUTANEOUSLY EVERY WEEK, ROTATE INJECTION SITES, # 2 mL, 5 Refills, 01/23/22 16:33:00 EDT, [facility], 157.5, cm, 01/20/22 13:38:00 [...] 07/11/22 16:11:00 EDT, Route to Pharmacy Electronically, [facility], 157.5, cm, 06/21/22 8:43:00 EDT, Height Start Date: 07/11/22 Stop Date: 07/14/22 Status: Ordered Vascepa 1 g oral capsule 2 capsule = 2 Gm, By Mouth, 2 times a day, # 360 capsule, 5 Refills, Maintenance, 05/03/20 15:59:00EST, Capsule, [facility]/pharmacy #[id number], 157.48, cm, 03/04/20 14:14:00 EST, Height Start Date: 05/03/20 Status: Ordered Ventolin HFA 108 mcg/inh inhalation aerosol with adapter 1 puffs, Inhalation, 4 times a day, PRN NEEDED FOR WHEEZING, # 18 each, 0 Refills, Maintenance, 09/17/22 15:25:00 EDT, [facility], 157.5, cm, 09/05/22 16:22:00 EDT, Height Start [...] 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 No wall motion abnormalities, Does [...] Team Personnel Name: Sergo Bazzi MD Position: [facility] Physician - Primary Care Member Role: PCP Address: Address: [address] [facility] [place] [address]- Name: Lizbeth Collins [place] Position: [facility] RN Member Role: Primary Care Nurse Care Team Related Persons Name: LB HENLEY Address: home [address] [address] Name: LB HENLEY Address: [address] [place] [address] Name: MILENA CUBA Address: home [address] [place] [address] [address] [place] [address]
--- OUTSIDE RECORDS SUMMARY | 2024-01-23 14:24 | XMS_ITS | Continuity of Care Document ---
Author Organization [facility] Address [address] [place] [address]- Care Team Providers Care Mat Machine Tender Name Role Phone Sergo Bazzi MD Primary Care Physician [phone] Encounter [facility] Date(s): 05/10/21 - 06/09/21 [facility] [address], [place] [address] Allergies, Adverse Reactions, Alerts Substance [...] (oldterm) 8 01/21/08 Given 1Result Comment: [01/22/2017] [facility] [id number] 2Admin Note: vis given dated 10/24/12 3Admin Note: vis given dated 10/01/11 4Admin Note: vis 5Admin Note: vis 6Admin Note: vis given: 10/27/2006 7Admin Note: vis given : 10/10/2005 8Admin Note: vis given 2007- Medications acetaminophen 500 mg oral tablet 2 tablet, By Mouth, 4 times a day, PRN NEEDED FOR PAIN, # 100 tablet, 1 Refills, Acute, 219:52:00 EDT, [facility]19, 157.48, cm, 10/11/20 9:39:00 EDT, Height Start Date: 10/26/20 Status: Ordered Alcohol Pads See Instructions, # 200 each, Refills 11, Tot. Refills 11, Maintenance, To cleans before injections5 x a day., 03/03/21 9:18:00 EST, E11.65, Compound, 157.48, cm, 03/01/21 15:54:00 EST, Height Start Date: 03/03/21 Stop Date: 02/26/22 Status: Ordered Wgoah-Apvteo-Uuir 300 mg oral capsule 1 capsule, By Mouth, 2 times a day, NOT COVERED., # 60 capsule, 11 Refills, [facility] 69113, 157.48, cm, 01/27/21 9:30:00 EDT, Height Start Date: 01/30/21 Status: Ordered ammonium lactate 12% topical cream 1 application, Topically, 2 times a day, # 385 Gm, 5 Refills, Maintenance, 12/19/20 14:08:00 EDT, Cream, [facility]/pharmacy #[id number], Partial fill upon patient request if the prescription is for a schedule IIopioid drug., 1 application Topically 2 times a day... Start Date: 12/19/20 Stop Date: 06/17/21 Status: Ordered aspirin 81 mg oral delayed release tablet 1 tablet, By Mouth, Daily, # 30 tablet, 11 Refills, Maintenance, 06/21/20 17:44:00 EDT, [facility] [id number], 157.48, cm, 05/31/20 9:41:00 EST, Height Start Date: 06/21/20 Status: Ordered atorvastatin 80 mg oral tablet 1 tablet = 80 mg, By Mouth, Daily, replaces Simvastatin, # 90 tablet, 4 Refills, Maintenance, 06/02/21 14:22:00 EST, Tablet, [facility]/pharmacy #[id number], replaces simvastatin, 157.48, cm, 06/02/21 14:20:00 EST, Height Start Date: 06/02/21 Stop Date: 08/26/22 Status: Ordered capsaicin 0.075% topical cream See Instructions, APPLY TO AFFECTED AREA TWICE A DAY, # 57 Gm, 4 Refills, [facility] 48204, 30, APPLY TO AFFECTED AREA TWICE A DAY, 157.48, cm, 11/11/20 9:37:00 EDT, Height Start Date: 01/02/21 Status: Ordered Daily David oral tablet 1 tablet, By Mouth, Daily, INSTR:TAKE IT 2 HOURS SEPARATE FROM ORLISTAT ([place]), # 30 tablet, 11 Refills, Maintenance, 08/19/20 16:26:00 EDT, [facility] 15800, 30, TAKE 1 TABLET BY MOUTH DAILY. [...] 6 Refills, Maintenance, 09/02/20 12:50:00 EDT, Gel, [facility]/pharmacy #[id number], 157.48, cm, 05/31/20 9:41:00 EST, [...] EVERY DAY, # 16 mL, 5 Refills, [facility] STORE 96953, 30, USE 1 SPRAY IN EACH NOSTRIL [...] 3, Maintenance, use up to check blood [id number] per day. 90 DAY SUPPLY, E11.9, 03/03/21 [...] mL, 3 Refills, Maintenance, 05/09/21 10:32:00 EST, [facility], Partial fill upon pat... Start Date: 05/09/21 Status: Ordered Lantus Solostar Pen 100 units/mL subcutaneous solution See Instructions, Decreased to 60U once a day as of 12/29/19, # 30 mL, 9 Refills, Maintenance, 09/20/20 15:10:00 EDT, [facility], NEEDS 30 ML FOR 30 [...] 0 Refills, Maintenance, 12/19/20 14:08:00 EDT, Film, [facility]/pharmacy #[id number], Partial fill upon patient request if the prescription is for a schedule II opioid drug., 1 patch Topically Daily, 157.48, cm, 11/11/20 9:37:0... Start Date: 12/19/20 Status: Ordered losartan 50 mg oral tablet 1 tablet, By Mouth, Daily, # 30 tablet, 2 Refills, [facility] STORE [id number], 157.48, cm, 05/05/21 9:51:00 EST, Height Start [...] not crush or chew, # 60 tablet, 1 Refills, Maintenance, 05/23/21 13:30:00 EST, EC Tablet, [facility]/pharmacy #[id number], Partial fill upon patient request if the prescription is for a schedule II opioid drug., 157.48... Start Date: 05/23/21 Status: Ordered oxyCODONE 10 mg oral tablet TAKE 1/2 TAB EVERY 12 HOURS NEEDED FOR SEVERE NECK/LOW BACK PAIN. DO NOT FILL UNTIL 05/01/21 Start Date: 06/02/21 Status: Ordered Pen [place], 31 G x 8 mm BD Ultra Fine III See Instructions, # 450 each, Refills 2, Tot. Refills 2, Maintenance, 5 X A DAY INJECTIONS, 90 DY SUPPLY, 09/20/20 15:10:00 EDT, EE11.9, Compound, 157.48, cm, 05/31/20 9:41:00 EST, Height Start Date: 09/20/20 Status: Ordered QUEtiapine 100 mg oral tablet TAKE 1 TABLET BY MOUTH EVERY DAY IN THE EVENING Start Date: 06/02/21 Status: Ordered SUMAtriptan 25 mg oral tablet 1 tablet, By Mouth, 3 times a day, PRN NEEDED FOR MIGRAINES, MAY RPT DOSE AFTER 2 HRS TO MAX OF 2, # 12 tablet, 7 Refills, [facility] 20854, 157.48, cm, 05/23/21 13:08:00 EST, Height Start Date: 06/02/21 Status: Ordered tiZANidine 4 mg oral capsule 1 capsule, By Mouth, 3 times a day, # 90 capsule, 3 Refills, [facility] 14985, 157.48, cm, 05/23/21 13:08:00 EST, Height Start Date: 06/01/21 Status: Ordered Topamax 25 mg oral tablet 2 tablet = 50 mg, By Mouth, Daily at bedtime, # 60 tablet, 6 Refills, Maintenance, 04/21/20 13:35:00 EST, Tablet, [facility]/pharmacy #[id number], 157.48, cm, 03/04/20 14:14:00 EST, Height Start Date: 04/21/20 Stop Date: 11/17/20 Status: Ordered Trulicity Pen 1.5 mg/0.5 mL subcutaneous solution 0.5 mL = 1.5 mg, Subcutaneous Injection, Every Saturday, for 90 days, E11.9, # 7.5 mL, 3 Refills, Hard Stop 12/03/22 15:26:00 EDT, 12/08/21 15:26:00 EDT, Solution, [facility], E11.65, 157.48, cm, 03/04/20 14:14:00 EST, Height Start Date: 12/08/21 Stop Date: 12/03/22 Status: Ordered Trulicity Pen 3 mg/0.5 mL subcutaneous solution 0.5 mL = 3 mg, Subcutaneous Injection, Every week, rotate injection sites, # 2 mL, 6 Refills, Maintenance, 03/01/21 16:55:00 EST, Solution, [facility], Partial fill upon patient request if the prescription is for a schedule II opioid... Start Date: 03/01/21 Status: Ordered Vascepa 1 g oral capsule 2 capsule = 2 Gm, By Mouth, 2 times a day, # 360 capsule, 5 Refills, Maintenance, 05/03/20 15:59:00EST, Capsule, [facility]/pharmacy #[id number], 157.48, cm, 03/04/20 14:14:00 EST, [...] Active *Briana Garces, Care Coor dinator, ICP [phone](Confirmed) Active Reflux(Confirmed) Active Hepatic steatosis(Confirmed) Active 59539 -EF 60-65%. No wall motion abnormalities, Does [...]
--- OUTSIDE RECORDS SUMMARY | 2024-01-23 14:24 | XMS_ITS | Continuity of Care Document ---
Author Organization [facility] Address [address] [place] [address]- Care Team Providers Care Product Management Manager Name Role Phone Sergo Bazzi MD Primary Care Physician Encounter [facility] Date(s): 02/04/20 - 03/27/20 [facility] [address], [place] [address] Attending Physician: Tonya Aldridge MD Admitting Physician: Tonya Aldridge MD Referring Physician: Sergo Bazzi MD Allergies, Adverse [...] (oldterm) 8 01/21/08 Given 1Result Comment: [01/22/2017] [facility] [id number] 2Admin Note: vis given dated 10/24/12 3Admin [...] mL, 5 Refills, Maintenance, 09/02/19 13:54:00 EDT, [facility], E11.9, 157.48, cm, 04/27/19 15:43:... Start Date: 09/02/19 Status: Ordered Alcohol Pads See Instructions, # 200 each, Refills 9, Tot. Refills 9, Maintenance, To cleans before injections 5x a day., 02/29/20 13:04:00 EST, E11.65, Compound, 157.48, cm, 01/25/20 15:23:00 EDT, Height Start Date: 02/29/20 Stop Date: 12/25/20 Status: Ordered Alcohol Pads See Instructions, for 30 days, # 200 each, Refills 12, Tot. Refills 12, Hard Stop 04/02/20 14:49:47EST, To cleans before injections 5 x a day., 03/09/19 14:49:47 EST, E11.65, Compound, 157.48, cm, 02/16/19 14:48:58 EST, Height Start Date: 03/09/19 Stop Date: 04/02/20 Status: Ordered alpha-lipoic acid 300 mg oral tablet 1 tablet = 300 mg, By Mouth, 2 times a day, # 60 tablet, 3 Refills, Maintenance, 02/01/20 15:26:00 EST, [facility]/pharmacy #[id number], 157.48, cm, 01/25/20 15:23:00 EDT, [...] tablet, 5 Refills, Maintenance, 12/21/19 17:01:00 EDT, [facility]/pharmacy#[id number], 157.48, cm, 04/27/19 15:43:00 EST, Height Start Date: 12/21/19 Status: Ordered atorvastatin 80 mg oral tablet 1 tablet = 80 mg, By Mouth, Daily, replaces Simvastatin, # 90 tablet, 4 Refills, Maintenance, 02/23/20 11:05:00 EST, Tablet, [facility]/pharmacy #[id number], replaces simvastatin, 157.48, cm, 01/25/20 15:23:00 EDT, Height Start Date: 02/23/20 Stop Date: 05/18/21 Status: Ordered atorvastatin 80 mg oral tablet 1 tablet = 80 mg, By Mouth, Daily, for 90 days, replaces Simvastatin, # 90 tablet, 4 Refills, Hard Stop 04/01/21 14:01:00 EST, 01/07/20 14:01:00 EDT, Tablet, [facility]/pharmacy #[id number], replaces simvastatin,157.48, cm, 12/29/19 15:55:00 EDT, Height Start Date: 01/07/20 Stop Date: 04/01/21 Status: Ordered BD ultra fine III pen needles [id number] BD ultra fine III pen needles [id number], See Instructions, # 360 each, Refills 3, [...] 60 Gm, 4 Refills, Acute, [facility], 30, APPLY TO AFFECTED AREA TWICE A [...] 6 Refills, Maintenance, 12/24/19 9:18:00 EDT, Gel, [facility]/pharmacy #[id number], 157.48, cm, 04/27/19 15:43:00 EST, Height [...] 5 Refills, Maintenance, 01/07/20 14:00:00 EDT, Tablet, [facility]/pharmacy #[id number], 157.48, cm, 12/29/19 15:55:00 EDT, Height [...] Gm, 1 Refills, Maintenance, 12/10/19 12:46:00 EDT, [facility]/pharmacy #[id number], 1 sprays Nares, Both Daily,x30 [...] 3, Maintenance, use up to check blood [id number] per day. 90 DAY SUPPLY, E11.9, 02/29/20 [...] mL, 11 Refills, Maintenance, 09/02/19 13:55:00 EDT, [facility], NEEDS 30 ML [...] 11 Refills, Maintenance, 05/15/19 15:00:00 EST, Ointment, [facility]/pharmacy #[id number], 1 application Topically 3 times a day,x30 days, 157.48, cm, 04/27/19 15:43:00 EST, Height Start Date: 05/15/19 Stop Date: 05/09/20 Status: Ordered losartan 50 mg oral tablet 50 mg, 1, tablet, By Mouth, Daily, can substitute 25mg tabs x2 if needed, # 30 tablet, Refills 5, Tot. Refills 5, Maintenance, 01/11/20 11:21:00 EDT, Route to Pharmacy Electronically, [facility]/pharmacy #[id number], 157.48, cm, 12/29/19 15:55:00 EDT, [...] 4 Refills, Maintenance, 08/14/19 8:49:00 EDT, Tablet, [facility]/pharmacy #[id number], 1 tablet By Mouth Daily,x90 days,Instr:Take it 2 hours separate from Orlistat ([place]), 157.... Start Date: 08/14/19 Stop Date: 11/06/20 Status: Ordered oxyCODONE 5 mg oral tablet 5 mg, 1, tablet, By Mouth, Every 12 hours, PRN, Refills 0, Tot. Refills 0, Maintenance, as needed for pain, 02/16/19 14:51:00 EST, Partial fill upon patient request Start Date: 02/16/19 Status: Ordered Pen [place], 31 G x 8 mm BD Ultra [...] up to a maximum of 2, # 18 tablet, 1 Refills, Acute 04/23/20 11:05:00 EST, 02/23/20 11:05:00 EST, Tablet, [facility]/pharmacy #[id number], 157.48, cm, 01/25/20... Start Date: 02/23/20 Stop Date: 04/23/20 Status: Ordered Topamax 25 mg oral tablet [...] 12/08/21 15:26:00 EDT, 12/13/20 15:26:00 EDT, Solution, [facility], E11.65, 157.48, cm, 04/27/19 15:43:00 EST, Height Start Date: 12/13/20 Stop Date: 12/08/21 Status: Ordered Trulicity Pen 1.5 mg/0.5 mL subcutaneous solution 0.5 mL = 1.5 mg, Subcutaneous Injection, Every Saturday, E11.9, # 7.5 mL, 3 Refills, Maintenance, 12/08/21 15:26:00 EDT, Solution, [facility], E11.65, 157.48, cm, 03/04/20 14:14:00 EST, Height Start Date: 12/08/21 Stop Date: 12/03/22 Status: Ordered Trulicity Pen 1.5 mg/0.5 mL subcutaneous solution 0.5 mL = 1.5 mg, Subcutaneous Injection, Every Saturday, for 90 days, # 6.5 mL, 5 Refills, Hard Stop 12/13/20 15:26:00 EDT, 06/22/19 15:26:00 EDT, Solution, [facility]/pharmacy #[id number], E11.65, 157.48, cm, 04/27/19 15:43:00 EST, Height Start Date: 06/22/19 Stop Date: 12/13/20 Status: Ordered Vascepa 1 g oral capsule 2 capsule = 2 Gm, By Mouth, 2 times a day, # 360 capsule, 0 Refills, Maintenance, 01/25/20 15:40:00EDT, Capsule, [facility]/pharmacy #[id number], 157.48, cm, 01/25/20 15:23:00 EDT, Height Start Date: 01/25/20 Status: Ordered Problem List Condition Effective Dates [...] Active *Briana Garces, Care Coor dinator, ICP [phone](Confirmed) Active Reflux(Confirmed) Active 57844 -EF 60-65%. No wall motion abnormalities, Does [...]
--- OUTSIDE RECORDS SUMMARY | 2024-01-23 14:24 | XMS_ITS | Continuity of Care Document ---
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 Role Phone Sergo Bazzi MD Primary Care Physician [phone] Encounter [facility] [place] Date(s): 07/24/23 - 08/23/23 [facility] [address], [place] [address] Allergies, Adverse Reactions, Alerts Substance Reaction Severity Status morphine ITCH DIARRHEA Active Motrin eat lining of stomach Active Latex powder eats up skin Active trazodone DEPRESSION Active cortisone Active Naprosyn gi upset Active CeleBREX gi [...] 1Result Comment: [01/22/2017] [facility] [id number] 2Admin Note: vis given dated 10/24/12 3Admin [...] 1 Refills, Acute, 219:52:00 EDT, [facility], 157.48, cm, 10/11/20 9:39:00 EDT, Height Start [...] Date: 03/03/21 Stop Date: 02/26/22 Status: Ordered Rzqme-Kjbuxx-Slhb 300 mg oral capsule 1 capsule, By Mouth, 2 times a day, NOT COVERED., # 60 capsule, 11 Refills, [facility], 157.48, cm, 01/27/21 9:30:00 EDT, Height Start Date: 01/30/21 Status: Ordered ammonium lactate 12% topical cream 1 application, Topically, 2 times a day, # 385 Gm, 1 Refills, Maintenance, 12/22/22 14:16:00 EDT, Cream, [facility]/pharmacy #[id number], Partial fill upon patient request if the prescription is for a schedule IIopioid drug., 1 application Topically 2 times a day... Start Date: 12/22/22 Stop Date: 02/20/23 Status: Ordered atorvastatin 80 mg oral tablet 1 tablet, By Mouth, Daily, INSTR:REPLACES SIMVASTATIN, # 90 tablet, 1 Refills, Maintenance, 05/22/23 12:07:00 EST, [facility] STORE 58770, 157, cm, 05/06/23 14:23:00 EST, Height, 88.3, kg, 04/16/23 11:33:00EST, Dry Weight Start Date: 05/22/23 Status: Ordered BD Single Use Swab 70% topical pad See Instructions, TO CLEANS BEFORE INJECTIONS 5 X A DAY., # 150 Unknown, 11 Refills, Maintenance, 08/16/22 10:15:00 EDT, [facility], 30, TO CLEANS BEFORE INJECTIONS 5 X A DAY., 157.5, cm, 08/01/22 9:27:00 EDT, Height Start Date: 08/16/22 Status: Ordered busPIRone 5 mg oral tablet 5 mg, 1, tablet, By Mouth, 3 times a day, # 90 tablet, Refills 4, Tot. Refills 4, Maintenance, 09/27/23 7:27:00 EDT, Route to Pharmacy Electronically, [facility]/pharmacy #[id number], Partial fill upon patient request if the prescription is for a schedule II opioi... Start Date: 09/27/23 Stop Date: 02/24/24 Status: Ordered busPIRone 5 mg oral tablet 5 mg, 1, tablet, By Mouth, 2 times a day, for 30 days, # 60 tablet, Refills 4, Tot. Refills 4, HardStop 09/27/23 7:27:00 EDT, 04/30/23 7:27:00 EST, Route to Pharmacy Electronically, [facility]/pharmacy #[id number], Partial fill upon patient request if the prescri... Start Date: 04/30/23 Stop Date: 09/27/23 Status: Ordered capsaicin 0.075% topical cream See Instructions, APPLY TO AFFECTED AREA TWICE A DAY, # 57 Gm, 4 Refills, Maintenance, 04/11/23 10:18:00 EST, [facility] STORE 09704, 30, APPLY TO AFFECTED AREA TWICE A [...] By Mouth, Daily, SEPARATE FROM ORLISTAT., # 90 tablet, 1 Refills, Maintenance, 07/02/23 18:31:00 EDT, [facility], 90, TAKE 1 TABLET BY MOUTH DAILY 2 HOURS SEPARATE FROM ORLISTAT, 157, cm, 06/24/23 14:54:00 EDT, Height, 88.3, kg, ... Start Date: 07/02/23 Stop Date: 07/02/23 Status: Ordered diazepam 5 mg oral tablet 5 mg, 1, tablet, By Mouth, 2 times a day, for 30 days, TAKE 1 TABLET BY MOUTH TWICE A DAY., # 60 tablet, Refills 4, Tot. Refills 4, Acute 01/28/24 16:26:00 EDT, 08/31/23 16:26:00 EDT, Route to Pharmacy Electronically, [facility]/pharmacy #[id number], Partial fill... Start Date: 08/31/23 Stop Date: 01/28/24 Status: Ordered diazepam 5 mg oral tablet 5 mg, 1, tablet, By Mouth, 2 times a day, for 30 days, TAKE 1 TABLET BY MOUTH TWICE A DAY., # 60 tablet, Refills 1, Tot. Refills 1, Acute 08/31/23 16:26:00 EDT, 07/02/23 16:26:00 EDT, Route to Pharmacy Electronically, [facility]/pharmacy #[id number], Partial fill... Start Date: 07/02/23 Stop Date: 08/31/23 Status: Ordered diclofenac 1% topical gel See Instructions, APPLY TOPICALLY 4 TIMES A DAY NOT TO EXCEED 16 GRAMS/DAY/SINGLE JOINT OF LOWER EXTREMITIES, # 100 Gm, 1 Refills, Maintenance, 12/14/22 6:14:00 EDT, [facility]/pharmacy #[id number], 30, APPLY TOPICALLY 4 TIMES [...] capsule, 5 Refills, Maintenance, 07/03/22 18:20:00 EDT, [facility]/pharmacy #[id number], Duplicate Rx. Original sent 07/03/22 with routing error. Re- sending to pharmacy, 157.5, cm... Start Date: 07/03/22 Status: Ordered esomeprazole 40 mg oral enteric coated capsule 1 capsule = 40 mg, By Mouth, Daily, # 90 capsule, 1 Refills, Maintenance, 03/07/23 13:32:00 EST, [facility]/pharmacy #[id number], Partial fill upon patient request [...] Refills, Maintenance, 09/20/22 9:36:00 EDT, [facility], 30, INHALE 1 PUFF BY MOUTH TWICE A DAY, 157.5, cm, 09/05/22 16:22:00 EDT, Height Start Date: 09/20/22 Status: Ordered fluticasone 50 mcg/inh nasal spray See Instructions, SPRAY 1 SPRAY INTO EACH NOSTRIL EVERY DAY, # 16 mL, 5 Refills, Maintenance, 07/05/22 16:20:00 EDT, [facility], 30, SPRAY 1 SPRAY INTO EACH NOSTRIL [...] EDT, Height, 84, kg, 07/24/23 12:52:00 EDT, . Start Date: 07/24/23 Stop Date: 07/18/24 Status: [...] tablet, 4 Refills, Maintenance, 03/11/23 15:50:00 EST, [facility] 43[facility], 157.5, cm, 02/19/23 9:20:00 EST, Height Start [...] mL, 6 Refills, Maintenance, 07/24/23 13:20:00 EDT, [facility], Partial fill upon patient request if the prescription is for a schedule II opioid drug., 157, cm, 07/24/23 12:52:00... Start Date: 07/24/23 Status: Ordered hydrOXYzine hydrochloride 25 mg oral tablet 1 tablet = 25 mg, By Mouth, 2 times a day, as needed for anxiety, # 60 tablet, 4 Refills, Soft Stop, 07/10/23 11:33:00 EDT, Tablet, [facility]/pharmacy #[id number], Partial fill upon patient request if the prescription is for a schedule II opioid drug., 157, cm, 0... Start Date: 07/10/23 Stop Date: 12/07/23 Status: Ordered lactase 3000 u oral tablet 3 tablet, By Mouth, 3 times a day with meals, X30 DAYS., # 120 tablet, 5 Refills, Maintenance, 04/25/23 15:25:00 EST, [facility] STORE 42930, 157, cm, 04/17/23 7:57:00 EST, Height, 88.3, kg, 04/16/23 11:33:00 EST, Dry Weight Start Date: 04/25/23 Status: Ordered Lantus Solostar Pen 100 units/mL subcutaneous solution See Instructions, Take 45 units in the AM and 45 units daily at bedtime. E11.9., # 30 mL, 9 Refills, Maintenance, 07/24/23 13:18:00 EDT, [facility], Partial fill upon patient requestif the prescription is for a schedule II opioid lucas... Start Date: 07/24/23 Status: Ordered levothyroxine 0.1 mg oral tablet 1 tablet = 100 mcg, By Mouth, Daily, # 30 tablet, 11 Refills, Maintenance, 07/25/23 8:52:00 EDT, [facility]/pharmacy #[id number], stop the 112mcg dose, 157, cm, 07/24/23 12:52:00 EDT, Height, 84, kg, 07/24/23 12:52:00 EDT, Dry Weight Start Date: 07/25/23 Stop Date: 07/19/24 Status: Ordered lidocaine 5% topical ointment See Instructions, APPLY TO AFFECTED AREA 3 TIMES A DAY, # 35.44 Gm, 11 Refills, Maintenance, 02/28/22 8:51:00 EST, [facility]/pharmacy #[id number], 30, APPLY TO AFFECTED AREA 3 TIMES A DAY, 157.5, cm, 02/21/22 14:36:00 EST, Height Start Date: 02/28/22 Status: Ordered lidocaine 5% topical ointment See Instructions, APPLY TO AFFECTED AREA 3 TIMES A DAY, # 35.44 Gm, 11 Refills, Maintenance, 07/03/22 18:22:00 EDT, [facility]/pharmacy #[id number], 30, Duplicate Rx. Original sent 07/03/22 with routing error. Re-sending to pharmacy, APPLY TO AFFECTED AREA 3 TIMES A... Start Date: 07/03/22 Status: Ordered losartan 50 mg oral tablet See Instructions, TAKE 1 TABLET BY MOUTH EVERY DAY, # 90 tablet, 1 Refills, Maintenance, 03/11/23 15:50:00 EST, [facility] STORE 70229, 157.5, cm, 02/19/23 9:20:00 EST, Height Start Date: 03/11/23 Status: Ordered Lyrica 25 mg oral capsule See Instructions, 1 capsule By Mouth 1 time daily at bedtime. E11.9, # 30 each, 2 Refills, Maintenance, 08/08/23 11:19:00 EDT, Capsule, [facility]/pharmacy #[id number], Partial fill upon patient request if the prescription is for a schedule II opioid drug., 157, c... Start Date: 08/08/23 Status: Ordered mirtazapine 15 mg oral tablet 1 tablet = 15 mg, By Mouth, Daily at bedtime, # 30 tablet, 4 Refills, Maintenance, 07/09/23 9:34:00EDT, Tablet, [id number], Partial fill upon patient request if the prescription is for a schedule II opioid drug., 157, cm, 06/24/23 14:54:00 ED... Start Date: 07/09/23 Stop Date: 12/06/23 Status: Ordered Narcan 4 mg/0.1 mL nasal spray = 4 mg, Nares, Both, Once, # 2 each, 2 Refills, Soft Stop, 02/22/23 14:30:00 EST, [id number], Partial fill upon patient request if the prescription is for a schedule II opioid drug., 157.5, cm, 02/19/23 9:20:00 EST, Height Start Date: 02/22/23 Status: Ordered [place]-3 Fish Oil 1000 mg oral capsule 1 capsule = 1,000 mg, By Mouth, Daily, # 90 capsule, 1 Refills, Maintenance, 08/01/22 10:17:00 EDT,[id number], Partial fill upon patient request [...] tablet, 2 Refills, Maintenance, 07/03/23 14:40:00 EDT, [facility] STORE 29344, 157, cm, 06/24/23 14:54:00 EDT, Height, 88.3, [...] mL, 11 Refills, Maintenance, 08/23/23 11:17:00 EDT, [facility], Partial fill upon patient request if... Start Date: 08/23/23 Status: Ordered Pen [place], 31 G x 8 mm BD Ultra [...] tablet, Refills 4, Tot. Refills 4, Maintenance, 07/09/23 9:37:00 EDT, Route to Pharmacy Electronically, [facility]/pharmacy #[id number], Partial fill upon patient request if the prescription is for a schedule II opio... 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 Refills 0, Maintenance, please dispense one bone char kiln operator grabber tool, ICD 10 M54.6, length [...] bedtime, # 90 tablet, 10 Refills, Maintenance, 08/15/23 14:04:00 EDT, [id number], 157, cm, 07/24/23 12:52:00 EDT, Height, 84, kg, 07/24/23 12:52:00 EDT, Dry Weight Start Date: 08/15/23 Status: Ordered valACYclovir 500 mg oral tablet 1, tablet, By Mouth, 2 times a day, PRN, # 6 tablet, Refills 0, Maintenance, NEEDED FOR OUTBREAKS, 08/05/23 15:33:00 EDT, Route to Pharmacy Electronically, [facility], 157, cm, 07/24/23 12:52:00 EDT, Height, 84, kg, 07/24/23 12:52:00 EDT, Dry... 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 *Briana Garces, Material Expeditor, ICP [phone] Confirmed Active PTSD (post-traumatic stress disorder) Confirmed [...] Team Personnel Name: Sergo Bazzi MD Position: [facility] Physician - Primary Care Member Role: PCP Address: Address: [address] [facility] [place] [address]- Name: Lizbeth Collins [place] Position: [facility] Office Staff Member Role: Primary Care Nurse Care Team Related Persons Name: LB HENLEY Address: home [address] [address] Name: LB HENLEY Address: [address] [place] [address] Name: MILENA CUBA Address: home [address] [place] [address] [address] [place] [address]
--- OUTSIDE RECORDS SUMMARY | 2024-01-23 14:24 | XMS_ITS | Continuity of Care Document ---
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 Allergies, Adverse Reactions, Alerts Substance Reaction [...] Given 1Result Comment: [01/22/2017] [facility] [id number] 2Admin Note: vis given dated 10/24/12 3Admin [...] mL, 5 Refills, Maintenance, 09/02/19 13:54:00 EDT, [facility], E11.9, 157.48, cm, [...] tablet, 5 Refills, Maintenance, 12/21/19 17:01:00 EDT, [id number], 157.48, cm, 04/27/19 15:43:00 EST, Height Start Date: 12/21/19 Status: Ordered atorvastatin 80 mg oral tablet 1 tablet = 80 mg, By Mouth, Daily, for 90 days, replaces Simvastatin, # 90 tablet, 4 Refills, Hard Stop 04/01/21 14:01:00 EST, 01/07/20 14:01:00 EDT, Tablet, [facility]/pharmacy #[id number], replaces simvastatin,157.48, cm, 12/29/19 15:55:00 EDT, Height Start Date: 01/07/20 Stop Date: 04/01/21 Status: Ordered atorvastatin 80 mg oral tablet 1 tablet = 80 mg, By Mouth, Daily, replaces Simvastatin, # 90 tablet, 4 Refills, Maintenance, 04/01/21 14:01:00 EST, Tablet, [facility]/pharmacy #[id number], replaces simvastatin, 157.48, cm, 12/29/19 15:55:00 EDT, Height Start Date: 04/01/21 Stop Date: 06/25/22 Status: Ordered BD ultra fine III pen needles [id number] BD ultra fine III pen needles [id number], See Instructions, # 360 each, Refills 3, [...] 60 Gm, 4 Refills, Acute, [facility], 30, APPLY TO AFFECTED AREA TWICE A [...] 6 Refills, Maintenance, 12/24/19 9:18:00 EDT, Gel, [facility]/pharmacy #[id number], 157.48, cm, 04/27/19 15:43:00 EST, [...] Refills, Maintenance, 01/07/20 14:00:00 EDT, Tablet, [facility]/pharmacy #[id number], 157.48, cm, 12/29/19 15:55:00 EDT, [...] Gm, 1 Refills, Maintenance, 12/10/19 12:46:00 EDT, [facility]/pharmacy #[id number], 1 sprays Nares, Both Daily,x30 [...] 3, Maintenance, use up to check blood [id number] per day. 90 DAY SUPPLY, E11.9, 08/21/19 [...] mL, 11 Refills, Maintenance, 09/02/19 13:55:00 EDT, [facility], NEEDS 30 ML [...] 11 Refills, Maintenance, 05/15/19 15:00:00 EST, Ointment, [facility]/pharmacy #[id number], 1 application Topically 3 times a day,x30 days, 157.48, cm, 04/27/19 15:43:00 EST, Height Start Date: 05/15/19 Stop Date: 05/09/20 Status: Ordered losartan 50 mg oral tablet 50 mg, 1, tablet, By Mouth, Daily, can substitute 25mg tabs x2 if needed, # 30 tablet, Refills 5, Tot. Refills 5, Maintenance, 01/11/20 11:21:00 EDT, Route to Pharmacy Electronically, [facility]/pharmacy #[id number], 157.48, cm, 12/29/19 15:55:00 EDT, [...] 4 Refills, Maintenance, 08/14/19 8:49:00 EDT, Tablet, [facility]/pharmacy #[id number], 1 tablet By Mouth Daily,x90 days,Instr:Take it 2 hours separate from Orlistat ([place]), 157.... Start Date: 08/14/19 Stop Date: 11/06/20 Status: Ordered oxyCODONE 5 mg oral tablet 5 mg, 1, tablet, By Mouth, Every 12 hours, PRN, Refills 0, Tot. Refills 0, Maintenance, as needed for pain, 02/16/19 14:51:00 EST, Partial fill upon patient request Start Date: 02/16/19 Status: Ordered Pen [place], 31 G x 8 mm BD Ultra [...] 3 Refills, Maintenance, 12/13/20 15:26:00 EDT, Solution, [facility], E11.65, 157.48, cm, 04/27/19 15:43:00 EST, Height Start Date: 12/13/20 Stop Date: 12/08/21 Status: Ordered Trulicity Pen 1.5 mg/0.5 mL subcutaneous solution 0.5 mL = 1.5 mg, Subcutaneous Injection, Every Saturday, for 90 days, # 6.5 mL, 5 Refills, Hard Stop 12/13/20 15:26:00 EDT, 06/22/19 15:26:00 EDT, Solution, [facility]/pharmacy #[id number], E11.65, 157.48, cm, 04/27/19 15:43:00 EST, Height Start Date: 06/22/19 Stop Date: 12/13/20 Status: Ordered valACYclovir 500 mg oral tablet See Instructions, TAKE 1 TABLET BY MOUTH TWICE A DAY FOR 3 DAYS NEEDED FOR OUTBREAK, # 6 tablet,Refills 2, Acute, Instructions Replace Required Details, Route to Pharmacy Electronically, [facility] STORE 12353, 157.48, cm, 04/27/19 15:43:00 EST, Height Start Date: 12/21/19 Status: Ordered Problem List Condition Effective Dates [...] Active *Briana Garces, Care Coor dinator, ICP [phone](Confirmed) Active Reflux(Confirmed) Active 31883 -EF 60-65%. No wall motion abnormalities, Does [...]
--- OUTSIDE RECORDS SUMMARY | 2024-01-23 14:24 | XMS_ITS | Continuity of Care Document ---
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 Role Phone Rose Mary FISCHER, Sergo Cole Primary Care Physician Encounter [facility] [place] Date(s): 12/09/20 - 01/08/21 [facility] [address] [place], [place] [address] Allergies, Adverse Reactions, [...] 8 01/21/08 Given 1Result Comment: [01/22/2017] [facility] [id number] 2Admin Note: vis given dated 10/24/12 3Admin Note: vis given dated 10/01/11 4Admin Note: vis 5Admin Note: vis 6Admin Note: vis given: 10/27/2006 7Admin Note: vis given : 10/10/2005 8Admin Note: vis given 2007- Medications acetaminophen 500 mg oral tablet 2 tablet, By Mouth, 4 times a day, PRN NEEDED FOR PAIN, # 100 tablet, 1 Refills, Acute, 219:52:00 EDT, [facility], 157.48, cm, 10/11/20 9:39:00 EDT, Height Start Date: 10/26/20 Status: Ordered Acyclovir Maintenance, 11/13/18 15:06:54 EDT Start Date: 11/13/18 Status: Ordered Admelog SoloStar 100 units/mL injectable solution 10 - 25 units, Subcutaneous Infusion, 3 times a day with meals, Inject via sliding scale, Max Dailydose 75u, 90 day supply, E11.9, # 90 mL, 5 Refills, Maintenance, 09/02/19 13:54:00 EDT, [facility], E11.9, 157.48, cm, 04/27/19 15:43:... [...] Refills, Maintenance, 12/19/20 14:08:00 EDT, Cream, [facility]/pharmacy #[id number], Partial fill upon patient request if [...] Refills, Maintenance, 06/21/20 17:44:00 EDT, [facility], 157.48, cm, 05/31/20 9:41:00 EST, Height Start Date: 06/21/20 Status: Ordered atorvastatin 80 mg oral tablet 1 tablet = 80 mg, By Mouth, Daily, replaces Simvastatin, # 90 tablet, 4 Refills, Maintenance, 02/23/20 11:05:00 EST, Tablet, [facility]/pharmacy #[id number], replaces simvastatin, 157.48, cm, 01/25/20 15:23:00 EDT, Height Start Date: 02/23/20 Stop Date: 05/18/21 Status: Ordered BD ultra fine III pen needles [id number] BD ultra fine III pen needles [id number], See Instructions, # 360 each, Refills 3, [...] A DAY, # 57 Gm, 4 Refills, [facility]64, 30, APPLY TO AFFECTED AREA TWICE A DAY, 157.48, cm, 11/11/20 9:37:00 EDT, Height Start Date: 01/02/21 Status: Ordered Daily David oral tablet 1 tablet, By Mouth, Daily, INSTR:TAKE IT 2 HOURS SEPARATE FROM ORLISTAT ([place]), # 30 tablet, 11 Refills, Maintenance, 08/19/20 16:26:00 EDT, [facility] ST[facility] 469[facility], 30, TAKE 1 TABLET BY MOUTH DAILY. [...] 6 Refills, Maintenance, 09/02/20 12:50:00 EDT, Gel, [facility]/pharmacy #[id number], 157.48, cm, 05/31/20 9:41:00 EST, Height [...] 5 Refills, Maintenance, 01/07/20 14:00:00 EDT, Tablet, [facility]/pharmacy #4471, 157.48, cm, 12/29/19 15:55:00 EDT, Height [...] EVERY DAY, # 16 mL, 5 Refills, [facility]777, 30, USE 1 SPRAY IN EACH NOSTRIL [...] 3, Maintenance, use up to check blood [id number] per day. 90 DAY SUPPLY, E11.9, 02/29/20 [...] mL, 2 Refills, Maintenance, 04/07/20 16:52:00 EST, [facility], Partial fill upon patient request [...] 9 Refills, Maintenance, 09/20/20 15:10:00 EDT, [facility], NEEDS 30 ML FOR 30 [...] Refills, Maintenance, 12/19/20 14:08:00 EDT, Film, [facility]/pharmacy #[id number], Partial fill upon patient request if the prescription is for a schedule II opioid drug., 1 patch Topically Daily, 157.48, cm, 11/11/20 9:37:0... Start Date: 12/19/20 Status: Ordered losartan 50 mg oral tablet 1 tablet, By Mouth, Daily, # 30 tablet, 5 Refills, Maintenance, 12/02/20 5:43:00 EDT, [id number], 157.48, cm, 11/11/20 9:37:00 EDT, Height [...] request Start Date: 02/16/19 Status: Ordered Pen [place], 31 G x 8 mm BD Ultra [...] 0 Refills, Maintenance, 10/24/20 8:13:00 EDT, [facility], 157.48, cm, 10/11/20 9:39:00 EDT, Height Start Date: 10/24/20 Stop Date: 10/31/20 Status: Ordered Topamax 25 mg oral tablet 2 tablet = 50 mg, By Mouth, Daily at bedtime, # 60 tablet, 6 Refills, Maintenance, 04/21/20 13:35:00 EST, Tablet, [facility]/pharmacy #4471, 157.48, cm, 03/04/20 14:14:00 EST, Height Start Date: 04/21/20 Stop Date: 11/17/20 Status: Ordered Trulicity Pen 1.5 mg/0.5 mL subcutaneous solution 0.5 mL = 1.5 mg, Subcutaneous Injection, Every Saturday, for 90 days, # 7.5 mL, 3 Refills, Hard Stop 12/08/21 15:26:00 EDT, 12/13/20 15:26:00 EDT, Solution, [facility], E11.65, 157.48, cm, 04/27/19 15:43:00 EST, Height Start Date: 12/13/20 Stop Date: 12/08/21 Status: Ordered Trulicity Pen 1.5 mg/0.5 mL subcutaneous solution 0.5 mL = 1.5 mg, Subcutaneous Injection, Every Saturday, E11.9, # 7.5 mL, 3 Refills, Maintenance, 12/08/21 15:26:00 EDT, Solution, [facility], E11.65, 157.48, cm, 03/04/20 14:14:00 EST, Height Start Date: 12/08/21 Stop Date: 12/03/22 Status: Ordered Vascepa 1 g oral capsule 2 capsule = 2 Gm, By Mouth, 2 times a day, # 360 capsule, 5 Refills, Maintenance, 05/03/20 15:59:00EST, Capsule, [facility]/pharmacy #4471, 157.48, cm, 03/04/20 14:14:00 EST, Height [...] Active *Briana Garces, Care Coor dinator, ICP [phone](Confirmed) Active Reflux(Confirmed) Active Hepatic steatosis(Confirmed) Active 86790 -EF 60-65%. No wall motion abnormalities, Does [...]
--- OUTSIDE RECORDS SUMMARY | 2024-01-23 14:24 | XMS_ITS | Continuity of Care Document ---
Author Organization [facility] Diabetes Address [address] [place] [address]- Care Team Providers Care Missionary Coordinator Name Role Phone Rose Mary FISCHER, Sergo Cole Primary Care Physician [phone] [place] [facility] [place] [id number] Date(s): 07/24/23 - 09/21/23 [facility] [address], [place] [address] Attending Physician: Chadwick FISCHER, Asmita Allergies, Adverse Reactions, Alerts Substance Reaction Severity [...] Given 1Result Comment: [01/22/2017] [facility] [id number] 2Admin Note: vis given dated 10/24/12 3Admin [...] 1 Refills, Acute, 219:52:00 EDT, [id number], 157.48, cm, 10/11/20 9:39:00 EDT, Height Start [...] Date: 03/03/21 Stop Date: 02/26/22 Status: Ordered Gvien-Umefpn-Muxn 300 mg oral capsule 1 capsule, By Mouth, 2 times a day, NOT COVERED., # 60 capsule, 11 Refills, [facility] ST[id number], 157.48, cm, 01/27/21 9:30:00 EDT, Height Start Date: 01/30/21 Status: Ordered ammonium lactate 12% topical cream 1 application, Topically, 2 times a day, # 385 Gm, 1 Refills, Maintenance, 12/22/22 14:16:00 EDT, Cream, [facility]/pharmacy #[id number], Partial fill upon patient request if the prescription is for a schedule IIopioid drug., 1 application Topically 2 times a day... Start Date: 12/22/22 Stop Date: 02/20/23 Status: Ordered Artificial Tears preserved solution 1 drops, Eyes, Both, 2 times a day, PRN for dry eyes, # 15 mL, 0 Refills, Maintenance, 09/10/23 8:57:00 EDT, Solution, [facility]/pharmacy #[id number], Partial fill upon patient request if the prescription is fora schedule II opioid drug., 1 drops Eyes, Both 2 ti... Start Date: 09/10/23 Status: Ordered atorvastatin 80 mg oral tablet 1 tablet, By Mouth, Daily, INSTR:REPLACES SIMVASTATIN, # 90 tablet, 1 Refills, Maintenance, 05/22/23 12:07:00 EST, [facility] ST[facility] [address]66, 157, cm, 05/06/23 14:23:00 EST, Height, 88.3, kg, 04/16/23 11:33:00EST, Dry Weight Start Date: 05/22/23 Status: Ordered BD Single Use Swab 70% topical pad See Instructions, TO CLEANS BEFORE INJECTIONS 5 X A DAY., # 150 Unknown, 11 Refills, Maintenance, 08/16/22 10:15:00 EDT, [facility], 30, TO CLEANS BEFORE INJECTIONS 5 X A DAY., 157.5, cm, 08/01/22 9:27:00 EDT, Height Start Date: 08/16/22 Status: Ordered busPIRone 5 mg oral tablet 5 mg, 1, tablet, By Mouth, 3 times a day, # 90 tablet, Refills 4, Tot. Refills 4, Maintenance, 09/10/23 10:46:00 EDT, Route to Pharmacy Electronically, [facility]/pharmacy #[id number], Partial fill upon patient request if the prescription is for a schedule II opio... Start Date: 09/10/23 Stop Date: 02/07/24 Status: Ordered capsaicin 0.075% topical cream See Instructions, APPLY TO AFFECTED AREA TWICE A DAY, # 57 Gm, 4 Refills, Maintenance, 04/11/23 10:18:00 EST, [facility] STORE [address]04, 30, APPLY TO AFFECTED AREA TWICE A [...] tablet, 1 Refills, Maintenance, 07/02/23 18:31:00 EDT, [facility] STORE 49417, 90, TAKE 1 TABLET BY MOUTH DAILY [...] 09/10/23 10:46:00 EDT, Route to Pharmacy Electronically, [facility]/pharmacy #[id number], Partial fill... Start Date: 09/10/23 Stop Date: 02/07/24 Status: Ordered diclofenac 1% topical gel See Instructions, APPLY TOPICALLY 4 TIMES A DAY NOT TO EXCEED 16 GRAMS/DAY/SINGLE JOINT OF LOWER EXTREMITIES, # 100 Gm, 4 Refills, Maintenance, 09/10/23 8:56:00 EDT, [facility]/pharmacy #[id number], 30, APPLY TOPICALLY [...] capsule, 5 Refills, Maintenance, 07/03/22 18:20:00 EDT, [facility]/pharmacy #[id number], Duplicate Rx. Original sent 07/03/22 with routing error. Re- sending to pharmacy, 157.5, cm... Start Date: 07/03/22 Status: Ordered esomeprazole 40 mg oral enteric coated capsule 1 capsule = 40 mg, By Mouth, Daily, # 90 capsule, 1 Refills, Maintenance, 09/02/23 16:20:00 EDT, [facility]/pharmacy #[id number], Partial fill [...] each, 0 Refills, Maintenance, 09/20/22 9:36:00 EDT, [facility] ST[facility] [address], 30, INHALE 1 PUFF BY MOUTH TWICE A DAY, 157.5, cm, 09/05/22 16:22:00 EDT, Height Start Date: 09/20/22 Status: Ordered fluticasone 50 mcg/inh nasal spray See Instructions, SPRAY 1 SPRAY INTO EACH NOSTRIL EVERY DAY, # 16 mL, 5 Refills, Maintenance, 07/05/22 16:20:00 EDT, [facility] [address], 30, SPRAY 1 SPRAY INTO EACH NOSTRIL [...] tablet, 4 Refills, Maintenance, 03/11/23 15:50:00 EST, [facility] ST[facility] [address]29, 157.5, cm, 02/19/23 9:20:00 EST, Height Start [...] mL, 6 Refills, Maintenance, 07/24/23 13:20:00 EDT, [facility], Partial fill upon patient request if the prescription is for a schedule II opioid drug., 157, cm, 07/24/23 12:52:00... Start Date: 07/24/23 Status: Ordered hydrOXYzine hydrochloride 25 mg oral tablet 1 tablet = 25 mg, By Mouth, 2 times a day, as needed for anxiety, # 60 tablet, 4 Refills, Soft Stop, 09/10/23 10:47:00 EDT, Tablet, [facility]/pharmacy #[id number], Partial fill upon patient request if the prescription is for a schedule II opioid drug., 157, cm, 0... Start Date: 09/10/23 Stop Date: 02/07/24 Status: Ordered lactase 3000 u oral tablet 3 tablet, By Mouth, 3 times a day with meals, X30 DAYS., # 120 tablet, 5 Refills, Maintenance, 04/25/23 15:25:00 EST, [facility] STORE [address]69, 157, cm, 04/17/23 7:57:00 EST, Height, 88.3, kg, 04/16/23 11:33:00 EST, Dry Weight Start Date: 04/25/23 Status: Ordered Lantus Solostar Pen 100 units/mL subcutaneous solution See Instructions, Take 45 units in the AM and 45 units daily at bedtime. E11.9., # 30 mL, 9 Refills, Maintenance, 07/24/23 13:18:00 EDT, [facility], Partial fill upon patient requestif the prescription is for a schedule II opioid lucas... Start Date: 07/24/23 Status: Ordered levothyroxine 0.1 mg oral tablet 1 tablet = 100 mcg, By Mouth, Daily, # 30 tablet, 11 Refills, Maintenance, 07/25/23 8:52:00 EDT, [facility]/pharmacy #[id number], stop the 112mcg dose, 157, cm, 07/24/23 12:52:00 EDT, Height, 84, kg, 07/24/23 12:52:00 EDT, Dry Weight Start Date: 07/25/23 Stop Date: 07/19/24 Status: Ordered lidocaine 5% topical ointment See Instructions, APPLY TO AFFECTED AREA 3 TIMES A DAY, # 35.44 Gm, 11 Refills, Maintenance, 02/28/22 8:51:00 EST, [facility]/pharmacy #[id number], 30, APPLY TO AFFECTED AREA 3 TIMES A DAY, 157.5, cm, 02/21/22 14:36:00 EST, Height Start Date: 02/28/22 Status: Ordered lidocaine 5% topical ointment See Instructions, APPLY TO AFFECTED AREA 3 TIMES A DAY, # 35.44 Gm, 11 Refills, Maintenance, 07/03/22 18:22:00 EDT, [facility]/pharmacy #[id number], 30, Duplicate Rx. Original sent 07/03/22 with routing error. Re-sending to pharmacy, APPLY TO AFFECTED AREA 3 TIMES A... Start Date: 07/03/22 Status: Ordered losartan 50 mg oral tablet See Instructions, TAKE 1 TABLET BY MOUTH EVERY DAY, # 90 tablet, 1 Refills, Maintenance, 03/11/23 15:50:00 EST, [facility] STORE 76021, 157.5, cm, 02/19/23 9:20:00 EST, Height Start Date: 03/11/23 Status: Ordered Lyrica 25 mg oral capsule See Instructions, 1 capsule By Mouth 1 time daily at bedtime. E11.9, # 30 each, 2 Refills, Maintenance, 08/08/23 11:19:00 EDT, Capsule, [facility]/pharmacy #[id number], Partial fill upon patient request if the prescription is for a schedule II opioid drug., 157, c... Start Date: 08/08/23 Status: Ordered mirtazapine 15 mg oral tablet 1 tablet = 15 mg, By Mouth, Daily at bedtime, # 30 tablet, 4 Refills, Maintenance, 09/10/23 10:47:00 EDT, Tablet, [facility]/pharmacy #[id number], Partial fill upon patient request if the prescription is for a schedule II opioid drug., 157, cm, 09/10/23 8:42:00 ED... Start Date: 09/10/23 Stop Date: 02/07/24 Status: Ordered Narcan 4 mg/0.1 mL nasal spray = 4 mg, Nares, Both, Once, # 2 each, 2 Refills, Soft Stop, 02/22/23 14:30:00 EST, [facility]/pharmacy #[id number], Partial fill upon patient request if the prescription is for a schedule II opioid drug., 157.5, cm, 02/19/23 9:20:00 EST, Height Start Date: 02/22/23 Status: Ordered [place]-3 Fish Oil 1000 mg oral capsule 1 capsule = 1,000 mg, By Mouth, Daily, # 90 capsule, 1 Refills, Maintenance, 08/01/22 10:17:00 EDT,[facility]/pharmacy #[id number], Partial fill upon [...] Refills, Maintenance, 06/14/22 16:40:00 EDT, EC Tablet, [facility]/pharmacy #[id number], Partial fill upon patient request if the prescription is for a schedule II opioid drug., 157.5,... Start Date: 06/14/22 Status: Ordered ondansetron 4 mg oral tablet 1 tablet, By Mouth, Every 8 hours, PRN NEEDED FOR NAUSEA AND VOMITING FOR, # 30 tablet, 2 Refills, Maintenance, 07/03/23 14:40:00 EDT, [facility] STORE 28943, 157, cm, 06/24/23 14:54:00 EDT, Height, 88.3, [...] mL, 11 Refills, Maintenance, 08/23/23 11:17:00 EDT, [facility], Partial fill upon patient request if... Start Date: 08/23/23 Status: Ordered Pen [place], 31 G x 8 mm BD Ultra [...] tablet, Refills 4, Tot. Refills 4, Maintenance, 09/10/23 10:47:00 EDT, Route to Pharmacy Electronically, [facility]/pharmacy #[id number], Partial fill upon patient request if the prescription is for a schedule II opi... Start Date: 09/10/23 Stop Date: 02/07/24 Status: Ordered oil burner grabber tool oil burner grabber tool, See Instructions, # 1 each, Refills 0, Tot. Refills 0, Maintenance, please dispense one oil burner grabber tool, ICD 10 M54.6, length of [...] tablet, 10 Refills, Maintenance, 08/15/23 14:04:00 EDT, [facility]/pharmacy #[id number], 157, cm, 07/24/23 12:52:00 EDT, Height, 84, kg, 07/24/23 12:52:00 EDT, Dry Weight Start Date: 08/15/23 Status: Ordered valACYclovir 500 mg oral tablet 1, tablet, By Mouth, 2 times a day, PRN, # 6 tablet, Refills 0, Maintenance, NEEDED FOR OUTBREAKS, 08/05/23 15:33:00 EDT, Route to Pharmacy Electronically, [facility] ST[facility] [address]97, 157, cm, 07/24/23 12:52:00 EDT, Height, 84, [...] Refills, Maintenance, 09/17/22 15:25:00 EDT, [facility], 157.5, cm, 09/05/22 16:22:00 EDT, Height Start [...] 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 [place] [address]- Name: Lizbeth Collins [place] Position: [facility] Office Staff Member Role: Primary Care Nurse Care Team Related Persons Name: LB HENLEY Address: [address] [place] [address] Name: LB HENLEY Address: home [address] [address] Name: MILENA CUBA Address: home [address] [place] [address] [address] [place] [address]
--- OUTSIDE RECORDS SUMMARY | 2024-01-23 14:25 | XMS_ITS | Continuity of Care Document ---
Author Organization [facility] Address [address] [place] [address]- Care Team Providers Care Clinical Education Academic Coordinator Name Role Phone Sergo Bazzi MD Primary Care Physician [place] [facility] [place](s): 03/09/19 - 03/09/19 [facility] [address] [place] [address]- [facility] Discharge Disposition: A-D/C Home Attending Physician: Marcos Yan MD Admitting Physician: Marcos Yan MD Referring Physician: Sergo Bazzi MD Allergies, [...] (oldterm) 8 01/21/08 Given 1Result Comment: [01/22/2017] [facility] [id number] 2Admin Note: vis given dated 10/24/12 3Admin Note: vis given dated 10/01/11 4Admin Note: vis 5Admin Note: vis 6Admin Note: vis given: 10/27/2006 7Admin Note: vis given : 10/10/2005 8Admin Note: vis given 2007- Medications Acyclovir Maintenance, 11/13/18 15:06:54 EDT Start Date: 11/13/18 Status: Ordered Admelog SoloStar 100 units/mL injectable solution 10 - 25 units, Subcutaneous Infusion, 3 times a day with meals, # 30 mL, 11 Refills, Maintenance, 03/09/19 14:48:21 EST, E11.9, 157.48, cm, 02/16/19 14:48:58 EST, Height Start Date: 03/09/19 Status: Ordered Alcohol Pads See Instructions, # [...] 02/16/19 Status: Ordered aspirin 81 mg oral tablet 1 tablet = 81 mg, By Mouth, Daily, # 30 tablet, 5 Refills, Maintenance, 11/10/18 15:01:35 EDT, Tablet Start Date: 11/10/18 Stop Date: 05/09/19 Status: Ordered atorvastatin 80 mg oral tablet 1 tablet = 80 mg, By Mouth, Daily, replaces Simvastatin, # 90 tablet, 1 Refills, Maintenance, Tablet, Route to Pharmacy Electronically, [id number], [facility]/pharmacy #[id number], replaces simvastatin Start Date: 06/06/18 Stop Date: 12/03/18 Status: Ordered cetirizine 10 mg oral tablet See Instructions, TAKE 1 TABLET BY MOUTH EVERY DAY, # 30 tablet, 0 Refills, Maintenance, 01/08/19 11:23:26 EDT, [facility] Start Date: 01/08/19 Status: Ordered diazepam 5 mg oral tablet Refills 0, Maintenance, 05/30/17 11:18:02 Start Date: 05/30/17 Status: Ordered diclofenac 1% topical gel 1 application, Topically, 4 times a day, not to exceed 16 grams/day/single joint of lower extremities, # 100 Gm, 6 Refills, Maintenance, 08/10/19 13:24:27 EDT, Gel Start Date: 08/10/19 Stop Date: 03/07/20 Status: Ordered diclofenac 1% topical gel 1 application, Topically, 4 times a day, for 30 days, not to exceed 16 grams/day/single joint of lower extremities, # 100 Gm, 6 Refills, Hard Stop 08/10/19 13:24:27 EDT, 01/12/19 13:24:27 EDT, Gel Start Date: 01/12/19 Stop Date: 08/10/19 Status: Ordered disposable bed liners, chuckpads disposable bed liners, chuckpads, See Instructions, # 180 each, Refills 11, Tot. Refills 11, Maintenance, DX urinary incontinence use as directed for home care Dx: Incontinence R32 Size LARGE, no powder ANABEL: 1 year, 11/25/17 15:37:57 EDT, Compound Start Date: 11/25/17 Status: Ordered docusate sodium 100 mg oral tablet 1 tablet = 100 mg, By Mouth, 2 times a day, PRN for constipation, # 60 tablet, 0 Refills, Maintenance, 02/19/19 16:14:55 EST, Tablet Start Date: 02/19/19 Stop Date: 03/21/19 Status: Ordered fentanyl 12 mcg/hr transdermal film, extended release 1 patch, Topically, Every 72 hours, 0 Refills, Maintenance, 02/16/19 14:50:52 EST, Patch, Partial fill upon patient request Start Date: 02/16/19 Status: Ordered fluticasone 50 mcg/inh nasal spray See Instructions, USE 1 SPRAY IN EACH NOSTRIL TWICE A DAY, # 16 mL, 1 Refills, Maintenance, 30, USE1 SPRAY IN EACH NOSTRIL TWICE A DAY, 157.48, cm, 02/16/19 14:48:58 EST, Height Start Date: 03/06/19 Status: Ordered fluticasone 50 mcg/inh nasal spray See Instructions, # 16 mL, Refills 1 Tot. Refills 1, USE 1 SPRAY IN EACH NOSTRIL TWICE A DAY, [facility]/pharmacy #[id number] Start Date: 12/15/18 Status: Ordered Freestyle InsuLinx Test Strips See Instructions, # 300 each, Refills 4, Tot. Refills 4, Maintenance, 4 X A DAY TESTING, 06/03/18 9:49:55 EST, E11.9, 90 DAY SUPPLY, Compound Start Date: 06/03/18 Status: Ordered Freestyle Lite Lancets See Instructions, # 300 each, Refills 4, Tot. Refills 4, Maintenance, use up to 4x per day. 90 DAY SUPPLY, 02/16/19 15:02:27 EST, E11.9, Compound Start Date: 02/16/19 Stop Date: 05/17/19 Status: Ordered Freestyle Lite Monitor See Instructions, # 1 each, Maintenance, DX DM, E 11.9, 10/14/18 15:29:20 EDT, Compound Start Date: 10/14/18 Status: Ordered Gloves See Instructions, # 2 box, Refills 11, Tot. Refills 11, Maintenance, use as directed for home care Dx: Incontinence R32 Size LARGE, no powder ANABEL: 1 year, incontinence, 01/14/18 16:10:09 EDT Start Date: 01/14/18 Status: Ordered lactase 3000 u oral tablet See Instructions, PRN Other, 1 tablet as needed when eating dairy products, # 30 tablet, 0 Refills,Maintenance, 02/23/19 9:44:06 EST, Tablet Start Date: 02/23/19 Status: Ordered Lantus Solostar Pen 100 units/mL subcutaneous solution See Instructions, 45 UNITS AM, 45 UNITS BEDTIME., # 30 mL, 11 Refills, Maintenance, 03/09/19 14:49:03 EST, NEEDS 30 ML FOR 30 DAY SUPPLY E11.9, 157.48, cm, 02/16/19 14:48:58 EST, Height Start Date: 03/09/19 Status: Ordered Large Adult size pull ups Large Adult size pull ups, See Instructions, # 180 each, Refills 11, Tot. Refills 11, Maintenance, Dx: urinary incontinence R32 Weight: 95.68kg Height: 157.48cm ANABEL: 1 year, 12/04/17 11:49:24 EDT, Compound Start Date: 12/04/17 Status: Ordered lidocaine 5% topical ointment 1 application, Topically, 3 times a day, # 50 Gm, 11 Refills, Maintenance, 07/30/19 9:31:23 EDT, Ointment, 1 application Topically 3 times a day,x30 days Start Date: 07/30/19 Stop Date: 07/24/20 Status: Ordered lidocaine 5% topical ointment 1 application, Topically, 3 times a day, for 30 days, # 50 Gm, 11 Refills, Hard Stop 07/30/19 9:31:23 EDT, 08/04/18 9:31:23 EDT, Ointment Start Date: 08/04/18 Stop Date: 07/30/19 Status: Ordered losartan 50 mg oral tablet 50 mg, 1, tablet, By Mouth, Daily, # 30 tablet, Refills 11, Tot. Refills 11, Maintenance, 06/06/18 10:47:42 EST, Route to Pharmacy Electronically, [id number], [facility]/pharmacy #[id number] Start Date: 06/06/18 Stop Date: 06/01/19 Status: Ordered mirtazapine 15 mg oral tablet TAKE 1 TABLET BY MOUTH EVERY DAY IN THE EVENING Start Date: 10/14/18 Status: Ordered oxyCODONE 5 mg oral tablet 5 mg, 1, tablet, By Mouth, Every 12 hours, PRN, Refills 0, Tot. Refills 0, Maintenance, as needed for pain, 02/16/19 14:51:00 EST, Partial fill upon patient request Start Date: 02/16/19 Status: Ordered Pen [place], 31 G x 8 mm BD Ultra Fine III See Instructions, # 450 each, Refills 5, Tot. Refills 5, Maintenance, 5 X A DAY INJECTIONS, 90 DY SUPPLY, 03/09/19 14:48:49 EST, EE11.9, Compound, 157.48, cm, 02/16/19 14:48:58 EST, Height Start Date: 03/09/19 Status: Ordered posie pads posie pads, See Instructions, # 90 application, Refills 12, Tot. Refills 12, Maintenance, DXfor urinary stress incontinence twice daily Dx: Incontinence R32 Size LARGE, no powder ANABEL: 1 year, 11/25/17 15:37:58 EDT, Compound Start Date: 11/25/17 Status: Ordered QUEtiapine 25 mg oral tablet [...] 1.5 mg, Subcutaneous Injection, Every Saturday, # 6.5 mL, 5 Refills, Maintenance, 03/09/19 14:48:03 EST, Solution, E11.65, 157.48, cm, 02/16/19 14:48:58 EST, Height Start Date: 03/09/19 Stop Date: 08/30/20 Status: Ordered Tylenol Extra Strength 500 mg [...] Active Migraine(Confirmed) 01/05/11 Active Obesity monitoring(Confirmed) Active STROMY (obstructive sleep apnea)(Confirmed) 4 Active PAIN IN JOINT INVOLVING MULT IPLE SITES(Confirmed) Active History of DILIP positive fo r HSV(Confirmed) 5 02/20/10 Active Reflux(Confirmed) Active 04391 -EF 60-65%. No wall motion abnormalities, Does [...] recent to oldest [Reference Range]: 1 Height 157.48 cm (03/09/19 3:46 PM) Weight 98.2 kg (03/09/19 3:46 PM) Pulse Rate [55-90 bpm] 98 bpm *H* (03/09/19 3:46 PM) Body Mass Index [18.5-24.99] 39.6 *>HHI* (03/09/19 3:46 PM) Blood Pressure [90-138/55-84 mm Hg] 162/ 99mm Hg *H* (03/09/19 3:46 PM) Blood pressure sites Arm, right (03/09/19 3:46 PM) Weight Obtained Via Standing scale (03/09/19 3:46 PM) Social History Social History Type Response Smoking Status Never smoker entered on: 11/10/13 Sex
--- OUTSIDE RECORDS SUMMARY | 2024-01-23 14:25 | XMS_ITS | Continuity of Care Document ---
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 Name Role Phone Rose Mary FISCHER, Sergo Cole Primary Care Physician [phone] Encounter [facility] Date(s): 03/21/20 - 04/20/20 [facility] [address], [place] [address] Allergies, Adverse Reactions, Alerts [...] 8 01/21/08 Given 1Result Comment: [01/22/2017] [facility] [id number] 2Admin Note: vis given dated 10/24/12 3Admin [...] mL, 5 Refills, Maintenance, 09/02/19 13:54:00 EDT, [facility], E11.9, 157.48, cm, 04/27/19 [...] tablet, 3 Refills, Maintenance, 02/01/20 15:26:00 EST, [facility]/pharmacy #[id number], 157.48, cm, 01/25/20 15:23:00 EDT, Height [...] 4 Refills, Maintenance, 02/23/20 11:05:00 EST, Tablet, [facility]/pharmacy #[id number], replaces simvastatin, 157.48, cm, 01/25/20 15:23:00 EDT, Height Start Date: 02/23/20 Stop Date: 05/18/21 Status: Ordered atorvastatin 80 mg oral tablet 1 tablet = 80 mg, By Mouth, Daily, for 90 days, replaces Simvastatin, # 90 tablet, 4 Refills, Hard Stop 04/01/21 14:01:00 EST, 01/07/20 14:01:00 EDT, Tablet, [facility]/pharmacy #[id number], replaces simvastatin,157.48, cm, 12/29/19 15:55:00 EDT, Height Start Date: 01/07/20 Stop Date: 04/01/21 Status: Ordered BD ultra fine III pen needles [id number] BD ultra fine III pen needles [id number], See Instructions, # 360 each, Refills 3, [...] 60 Gm, 4 Refills, Acute, [facility], 30, APPLY TO AFFECTED AREA TWICE A DAY, 157.48, cm, 04/27/19 15:43:00 EST, Height Start Date: 12/09/19 Status: Ordered cyclobenzaprine 10 mg oral tablet 10 mg, 1, tablet, By Mouth, 3 times a day, PRN, for 15 days, # 45 tablet, Refills 0, Tot. Refills 0, Acute 05/05/20 21:17:00 EST, for spasm, 04/20/20 21:17:00 EST, [id number] Partial fill upon patient request... Start Date: 04/20/20 Stop Date: 05/05/20 Status: Ordered diazepam 5 mg oral tablet Refills 0, Maintenance, 05/30/17 11:18:02 Start Date: 05/30/17 Status: Ordered diclofenac 1% topical gel 1 application, Topically, 4 times a day, not to exceed 16 grams/day/single joint of lower extremities, # 100 Gm, 6 Refills, Maintenance, 12/24/19 9:18:00 EDT, Gel, [facility]/pharmacy #[id number], 157.48, cm, 04/27/19 15:43:00 EST, Height [...] 5 Refills, Maintenance, 01/07/20 14:00:00 EDT, Tablet, [facility]/pharmacy #[id number], 157.48, cm, 12/29/19 15:55:00 EDT, Height [...] Gm, 1 Refills, Maintenance, 12/10/19 12:46:00 EDT, [facility]/pharmacy #[id number], 1 sprays Nares, Both Daily,x30 days,Instr:in [...] 3, Maintenance, use up to check blood [id number] per day. 90 DAY SUPPLY, E11.9, 02/29/20 [...] mL, 2 Refills, Maintenance, 04/07/20 16:52:00 EST, [facility], Partial fill upon [...] mL, 11 Refills, Maintenance, 09/02/19 13:55:00 EDT, [facility], NEEDS 30 ML FOR [...] 04/07/20 Status: Ordered lidocaine 5% topical ointment 1 application, Topically, 3 times a day, # 50 Gm, 11 Refills, Maintenance, 05/15/19 15:00:00 EST, Ointment, [facility]/pharmacy #[id number], 1 application Topically 3 times a day,x30 days, 157.48, cm, 04/27/19 15:43:00 EST, Height Start Date: 05/15/19 Stop Date: 05/09/20 Status: Ordered losartan 50 mg oral tablet 50 mg, 1, tablet, By Mouth, Daily, can substitute 25mg tabs x2 if needed, # 30 tablet, Refills 5, Tot. Refills 5, Maintenance, 01/11/20 11:21:00 EDT, Route to Pharmacy Electronically, [facility]/pharmacy #[id number], 157.48, cm, 12/29/19 15:55:00 EDT, Height Start Date: 01/11/20 Stop Date: 07/09/20 Status: Ordered mirtazapine 15 mg oral tablet TAKE 1 TABLET BY MOUTH EVERY DAY IN THE EVENING Start Date: 10/14/18 Status: Ordered multivitamin Multiple Vitamins oral tablet 1 tablet, By Mouth, Daily, Take it 2 hours separate from Orlistat ([place]), # 90 tablet, 4 Refills, Maintenance, 08/14/19 8:49:00 EDT, Tablet, [facility]/pharmacy #[id number], 1 tablet By Mouth Daily,x90 days,Instr:Take it 2 hours separate from Orlistat ([place]), 157.... Start Date: 08/14/19 Stop Date: 11/06/20 Status: Ordered oxyCODONE 5 mg oral tablet 5 mg, 1, tablet, By Mouth, Every 12 hours, PRN, Refills 0, Tot. Refills 0, Maintenance, as needed for pain, 02/16/19 14:51:00 EST, Partial fill upon patient request Start Date: 02/16/19 Status: Ordered Pen [place], 31 G x 8 mm BD Ultra [...] 04/23/20 11:05:00 EST, 02/23/20 11:05:00 EST, Tablet, [facility]/pharmacy #[id number], 157.48, cm, 01/25/20... Start Date: 02/23/20 Stop Date: 04/23/20 Status: Ordered SUMAtriptan 25 mg oral tablet 1 tablet = 25 mg, By Mouth, 3 times a day, PRN for migraine headache, for 15 days, may repeat dose after 2 hours up to a maximum of 2, # 45 tablet, 1 Refills, Acute 05/20/20 21:17:00 EST, 04/20/20 21:17:00 EST, Tablet, [facility]/pharmacy #[id number], 157.48, cm,... Start Date: 04/20/20 Stop Date: 05/20/20 Status: Ordered Topamax 25 mg oral tablet [...] 12/08/21 15:26:00 EDT, 12/13/20 15:26:00 EDT, Solution, [facility], E11.65, 157.48, cm, 04/27/19 15:43:00 EST, Height Start Date: 12/13/20 Stop Date: 12/08/21 Status: Ordered Trulicity Pen 1.5 mg/0.5 mL subcutaneous solution 0.5 mL = 1.5 mg, Subcutaneous Injection, Every Saturday, E11.9, # 7.5 mL, 3 Refills, Maintenance, 12/08/21 15:26:00 EDT, Solution, [facility], E11.65, 157.48, cm, 03/04/20 14:14:00 EST, Height Start Date: 12/08/21 Stop Date: 12/03/22 Status: Ordered Trulicity Pen 1.5 mg/0.5 mL subcutaneous solution 0.5 mL = 1.5 mg, Subcutaneous Injection, Every Saturday, for 90 days, # 6.5 mL, 5 Refills, Hard Stop 12/13/20 15:26:00 EDT, 06/22/19 15:26:00 EDT, Solution, [facility]/pharmacy #[id number], E11.65, 157.48, cm, 04/27/19 15:43:00 EST, Height Start Date: 06/22/19 Stop Date: 12/13/20 Status: Ordered Vascepa 1 g oral capsule 2 capsule = 2 Gm, By Mouth, 2 times a day, # 360 capsule, 0 Refills, Maintenance, 01/25/20 15:40:00EDT, Capsule, [id number], 157.48, cm, 01/25/20 15:23:00 EDT, [...] Active *Briana Garces, Care Coor dinator, ICP [phone](Confirmed) Active Reflux(Confirmed) Active 37406 -EF 60-65%. No wall motion abnormalities, Does [...]
--- OUTSIDE RECORDS SUMMARY | 2024-01-23 14:25 | XMS_ITS | Continuity of Care Document ---
Author Organization 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 [address], [address] [place], [place] [address] Attending Physician: Admmina, [id number] Admitting [...] Refusal Reason influenza virus vaccine, inactivated 01/12/20 Gliberto rded influenza virus vaccine, inactivated 02/16/19 Give [...] (oldterm) 8 01/21/08 Given 1Result Comment: [01/22/2017] [facility] [id number] 2Admin Note: vis given dated 10/24/12 3Admin [...] mL, 5 Refills, Maintenance, 09/02/19 13:54:00 EDT, [facility], E11.9, 157.48, cm, 04/27/19 [...] tablet, 3 Refills, Maintenance, 02/01/20 15:26:00 EST, [facility]/pharmacy #[id number], 157.48, cm, 01/25/20 15:23:00 EDT, [...] tablet, 5 Refills, Maintenance, 12/21/19 17:01:00 EDT, [facility]/pharmacy#[id number], 157.48, cm, 04/27/19 15:43:00 EST, Height Start Date: 12/21/19 Status: Ordered atorvastatin 80 mg oral tablet 1 tablet = 80 mg, By Mouth, Daily, replaces Simvastatin, # 90 tablet, 4 Refills, Maintenance, 02/23/20 11:05:00 EST, Tablet, [facility]/pharmacy #[id number], replaces simvastatin, 157.48, cm, 01/25/20 15:23:00 EDT, Height Start Date: 02/23/20 Stop Date: 05/18/21 Status: Ordered atorvastatin 80 mg oral tablet 1 tablet = 80 mg, By Mouth, Daily, for 90 days, replaces Simvastatin, # 90 tablet, 4 Refills, Hard Stop 04/01/21 14:01:00 EST, 01/07/20 14:01:00 EDT, Tablet, [facility]/pharmacy #[id number], replaces simvastatin,157.48, cm, 12/29/19 15:55:00 EDT, Height Start Date: 01/07/20 Stop Date: 04/01/21 Status: Ordered BD ultra fine III pen needles [id number] BD ultra fine III pen needles [id number], See Instructions, # 360 each, Refills 3, [...] DAY, # 60 Gm, 4 Refills, Acute, [facility], 30, APPLY TO AFFECTED AREA TWICE A [...] 6 Refills, Maintenance, 12/24/19 9:18:00 EDT, Gel, [facility]/pharmacy #[id number], 157.48, cm, 04/27/19 15:43:00 EST, [...] 5 Refills, Maintenance, 01/07/20 14:00:00 EDT, Tablet, [facility]/pharmacy #[id number], 157.48, cm, 12/29/19 15:55:00 EDT, [...] Gm, 1 Refills, Maintenance, 12/10/19 12:46:00 EDT, [facility]/pharmacy #[id number], 1 sprays Nares, Both Daily,x30 [...] 3, Maintenance, use up to check blood [id number] per day. 90 DAY SUPPLY, E11.9, 02/29/20 [...] mL, 2 Refills, Maintenance, 04/07/20 16:52:00 EST, [facility], Partial fill upon patient [...] mL, 11 Refills, Maintenance, 09/02/19 13:55:00 EDT, [facility], NEEDS 30 ML FOR [...] DAY, # 35.44 Gm, 11 Refills, Acute, [facility], 30, APPLY TO AFFECTED AREA 3 TIMES A DAY, 157.48, cm, 03/04/20 14:14:00 EST, Height Start Date: 05/10/20 Status: Ordered losartan 50 mg oral tablet 50 mg, 1, tablet, By Mouth, Daily, can substitute 25mg tabs x2 if needed, # 30 tablet, Refills 5, Tot. Refills 5, Maintenance, 01/11/20 11:21:00 EDT, Route to Pharmacy Electronically, [facility]/pharmacy #[id number], 157.48, cm, 12/29/19 15:55:00 EDT, [...] 4 Refills, Maintenance, 08/14/19 8:49:00 EDT, Tablet, [id number], 1 tablet By Mouth Daily,x90 days,Instr:Take it 2 hours separate from Orlistat ([place]), 157.... Start Date: 08/14/19 Stop Date: 11/06/20 Status: Ordered oxyCODONE 5 mg oral tablet 5 mg, 1, tablet, By Mouth, Every 12 hours, PRN, Refills 0, Tot. Refills 0, Maintenance, as needed for pain, 02/16/19 14:51:00 EST, Partial fill upon patient request Start Date: 02/16/19 Status: Ordered Pen [place], 31 G x 8 mm BD Ultra [...] 11/17/20 13:36:00 EDT, 04/21/20 13:36:00 EST, Tablet, [facility]/pharmacy #[id number], 157.48, cm, 03/04/20... Start Date: [...] 12/08/21 15:26:00 EDT, 12/13/20 15:26:00 EDT, Solution, [facility], E11.65, 157.48, cm, 04/27/19 15:43:00 EST, Height Start Date: 12/13/20 Stop Date: 12/08/21 Status: Ordered Trulicity Pen 1.5 mg/0.5 mL subcutaneous solution 0.5 mL = 1.5 mg, Subcutaneous Injection, Every Saturday, E11.9, # 7.5 mL, 3 Refills, Maintenance, 12/08/21 15:26:00 EDT, Solution, [facility], E11.65, 157.48, cm, 03/04/20 14:14:00 EST, Height Start Date: 12/08/21 Stop Date: 12/03/22 Status: Ordered Trulicity Pen 1.5 mg/0.5 mL subcutaneous solution 0.5 mL = 1.5 mg, Subcutaneous Injection, Every Saturday, for 90 days, # 6.5 mL, 5 Refills, Hard Stop 12/13/20 15:26:00 EDT, 06/22/19 15:26:00 EDT, Solution, [facility]/pharmacy #[id number], E11.65, 157.48, cm, 04/27/19 15:43:00 [...] Active *Briana Garces, Care Coor dinator, ICP [phone](Confirmed) Active Reflux(Confirmed) Active 73230 -EF 60-65%. No wall motion abnormalities, Does [...]
--- OUTSIDE RECORDS SUMMARY | 2024-01-23 14:25 | XMS_ITS | Continuity of Care Document ---
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 Role Phone Rose Mary FISCHER, Sergo Cole Primary Care Physician Encounter [facility] Date(s): 08/04/20 - 09/03/20 [facility] [address] [place], [place] [address] Allergies, Adverse Reactions, Alerts Substance Reaction [...] Given 1Result Comment: [01/22/2017] [facility] [id number] 2Admin Note: vis given dated 10/24/12 3Admin [...] 10/29/20 15:45:00 EDT, 08/30/20 15:45:00 EDT, Tablet, [facility]/pharmacy #[id number], Partial fill upon patient request [...] mL, 5 Refills, Maintenance, 09/02/19 13:54:00 EDT, [facility], E11.9, 157.48, cm, [...] 5 Refills, Maintenance, 06/20/20 10:55:00 EDT, Cream, [facility]/pharmacy #[id number], Partial fill upon patient request [...] Refills, Maintenance, 06/21/20 17:44:00 EDT, [facility], 157.48, cm, 05/31/20 9:41:00 EST, Height Start Date: 06/21/20 Status: Ordered atorvastatin 80 mg oral tablet 1 tablet = 80 mg, By Mouth, Daily, replaces Simvastatin, # 90 tablet, 4 Refills, Maintenance, 02/23/20 11:05:00 EST, Tablet, [facility]/pharmacy #[id number], replaces simvastatin, 157.48, cm, 01/25/20 15:23:00 EDT, Height Start Date: 02/23/20 Stop Date: 05/18/21 Status: Ordered BD ultra fine III pen needles [id number] BD ultra fine III pen needles [id number], See Instructions, # 360 each, Refills 3, [...] Refills, Maintenance, 08/19/20 16:26:00 EDT, [facility], 30, TAKE 1 TABLET BY MOUTH DAILY. [...] 6 Refills, Maintenance, 09/02/20 12:50:00 EDT, Gel, [facility]/pharmacy #[id number], 157.48, cm, 05/31/20 9:41:00 EST, [...] 5 Refills, Maintenance, 01/07/20 14:00:00 EDT, Tablet, [facility]/pharmacy #[id number], 157.48, cm, 12/29/19 15:55:00 EDT, [...] Gm, 5 Refills, Maintenance, 06/27/20 15:14:00 EDT, [facility]/pharmacy #[id number], 1 sprays Nares, Both Daily,x30 [...] 3, Maintenance, use up to check blood [id number] per day. 90 DAY SUPPLY, E11.9, 02/29/20 [...] mL, 2 Refills, Maintenance, 04/07/20 16:52:00 EST, [facility], Partial fill upon [...] mL, 11 Refills, Maintenance, 09/02/19 13:55:00 EDT, [facility], NEEDS 30 ML [...] 0 Refills, Maintenance, 08/26/20 20:44:00 EDT, Film, [facility]/pharmacy #[id number], Partial fill upon patient request if the prescription is for a schedule II opioid drug., 1 patch Topically Daily, 157.48, cm, 05/31/20 9:41:0... Start Date: 08/26/20 Status: Ordered lidocaine 5% topical ointment See Instructions, APPLY TO AFFECTED AREA 3 TIMES A DAY, # 35.44 Gm, 11 Refills, Physician Stop 09/30/20 12:50:00 EDT, 09/02/20 12:50:00 EDT, [id number], 30, APPLY TO AFFECTED AREA 3 TIMES A DAY, 157.48, cm, 05/31/20 9:41:00 EST, Height Start Date: 09/02/20 Stop Date: 09/30/20 Status: Ordered losartan 50 mg oral tablet 1 tablet, By Mouth, Daily, # 30 tablet, 5 Refills, Maintenance, 06/20/20 9:32:00 EDT, [facility], 157.48, cm, 05/31/20 9:41:00 EST, Height Start [...] request Start Date: 02/16/19 Status: Ordered Pen [place], 31 G x 8 mm BD Ultra [...] 11/17/20 13:36:00 EDT, 04/21/20 13:36:00 EST, Tablet, [facility]/pharmacy #[id number], 157.48, cm, 03/04/20... Start Date: 04/21/20 Stop Date: 11/17/20 Status: Ordered tiZANidine 4 mg oral capsule 1 capsule = 4 mg, By Mouth, 3 times a day, # 21 capsule, 0 Refills, Maintenance, 09/02/20 12:50:00 EDT, Capsule, [id number], Partial fill upon patient request if the prescription is for a schedule II opioid drug., 157.48, cm, 05/31/20 9:41:00... Start Date: 09/02/20 Stop Date: 09/09/20 Status: Ordered Topamax 25 mg oral tablet 2 tablet = 50 mg, By Mouth, Daily at bedtime, # 60 tablet, 6 Refills, Maintenance, 04/21/20 13:35:00 EST, [id number] 157[facility], cm, 03/04/20 14:14:00 EST, Height Start Date: 04/21/20 Stop Date: 11/17/20 Status: Ordered Trulicity Pen 1.5 mg/0.5 mL subcutaneous solution 0.5 mL = 1.5 mg, Subcutaneous Injection, Every Saturday, for 90 days, # 7.5 mL, 3 Refills, Hard Stop 12/08/21 15:26:00 EDT, 12/13/20 15:26:00 EDT, Solution, [facility], E11.65, 157.48, cm, 04/27/19 15:43:00 EST, Height Start Date: 12/13/20 Stop Date: 12/08/21 Status: Ordered Trulicity Pen 1.5 mg/0.5 mL subcutaneous solution 0.5 mL = 1.5 mg, Subcutaneous Injection, Every Saturday, E11.9, # 7.5 mL, 3 Refills, Maintenance, 12/08/21 15:26:00 EDT, Solution, [facility], E11.65, 157.48, cm, 03/04/20 14:14:00 EST, Height Start Date: 12/08/21 Stop Date: 12/03/22 Status: Ordered Trulicity Pen 1.5 mg/0.5 mL subcutaneous solution 0.5 mL = 1.5 mg, Subcutaneous Injection, Every Saturday, for 90 days, # 6.5 mL, 5 Refills, Hard Stop 12/13/20 15:26:00 EDT, 06/22/19 15:26:00 EDT, Solution, [facility]/pharmacy #[id number], E11.65, 157.48, cm, 04/27/19 15:43:00 EST, Height Start Date: 06/22/19 Stop Date: 12/13/20 Status: Ordered valACYclovir 500 mg oral tablet See Instructions, TAKE 1 TABLET BY MOUTH TWICE A DAY FOR 3 DAYS NEEDED FOR OUTBREAK, # 6 tablet,Refills 2, Acute, Instructions Replace Required Details, Route to Pharmacy Electronically, [facility], 157.48, cm, 05/31/20 9:41:00 EST, Height Start Date: 06/27/20 Status: Ordered Vascepa 1 g oral capsule 2 capsule = 2 Gm, By Mouth, 2 times a day, # 360 capsule, 5 Refills, Maintenance, 05/03/20 15:59:00EST, Capsule, [facility]/pharmacy #[id number], 157.48, cm, 03/04/20 14:14:00 EST, [...] Active *Briana Garces, Care Coor dinator, ICP [phone](Confirmed) Active Reflux(Confirmed) Active Hepatic steatosis(Confirmed) Active 42822 -EF 60-65%. No wall motion abnormalities, Does [...]
--- OUTSIDE RECORDS SUMMARY | 2024-01-23 14:25 | XMS_ITS | Continuity of Care Document ---
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 Name Role Phone Rose Mary FISCHER, Sergo Cole Primary Care Physician [phone] Encounter [facility] Date(s): 08/29/21 - 09/28/21 [facility] Allergies, Adverse Reactions, Alerts Substance [...] 8 01/21/08 Given 1Result Comment: [01/22/2017] [facility] [id number] 2Admin Note: vis given dated 10/24/12 3Admin Note: vis given dated 10/01/11 4Admin Note: vis 5Admin Note: vis 6Admin Note: vis given: 10/27/2006 7Admin Note: vis given : 10/10/2005 8Admin Note: vis given 2007- Medications acetaminophen 500 mg oral tablet 2 tablet, By Mouth, 4 times a day, PRN NEEDED FOR PAIN, # 100 tablet, 1 Refills, Acute, 219:52:00 EDT, [facility], 157.48, cm, 10/11/20 9:39:00 EDT, Height Start Date: 10/26/20 Status: Ordered Alcohol Pads See Instructions, # 200 each, Refills 11, Tot. Refills 11, Maintenance, To cleans before injections5 x a day., 03/03/21 9:18:00 EST, E11.65, Compound, 157.48, cm, 03/01/21 15:54:00 EST, Height Start Date: 03/03/21 Stop Date: 02/26/22 Status: Ordered Kunyk-Hrxeux-Dobo 300 mg oral capsule 1 capsule, By Mouth, 2 times a day, NOT COVERED., # 60 capsule, 11 Refills, [facility], 157.48, cm, 01/27/21 9:30:00 EDT, Height Start Date: 01/30/21 Status: Ordered ammonium lactate 12% topical cream 1 application, Topically, 2 times a day, # 385 Gm, 5 Refills, Maintenance, 09/08/21 9:35:00 EDT, Cream, [facility]/pharmacy #[id number], Partial fill upon patient request if the prescription is for a schedule II opioid drug., 1 application Topically 2 times a day,... Start Date: 09/08/21 Stop Date: 03/07/22 Status: Ordered aspirin 81 mg oral delayed release tablet 1 tablet, By Mouth, Daily, # 30 tablet, 11 Refills, Maintenance, 06/21/20 17:44:00 EDT, [facility] 547[facility], 157.48, cm, 05/31/20 9:41:00 EST, Height Start [...] Stop 09/29/21 13:12:00 EDT, 09/01/21 13:11:00 EDT, [facility]/pharmacy #4471, 30, APPLY TO AFFECTED AREA TWICE A DAY, 157.48, cm, 08/24/21 8:03:00 EDT, Height Start Date: 09/01/21 Stop Date: 09/29/21 Status: Ordered Daily [place] oral tablet 1 tablet, By Mouth, Daily, INSTR:TAKE IT 2 HOURS SEPARATE FROM ORLISTAT ([place]), # 30 tablet, 11 Refills, Maintenance, 08/19/20 16:26:00 EDT, [facility], 30, TAKE 1 TABLET BY MOUTH DAILY. [...] 6 Refills, Maintenance, 09/01/21 13:11:00 EDT, Gel, [facility]/pharmacy #4471, 157.48, cm, 08/24/21 8:03:00 EDT, [...] EVERY DAY, # 16 mL, 5 Refills, [facility], 30, USE 1 SPRAY IN EACH NOSTRIL [...] 3, Maintenance, use up to check blood [id number] per day. 90 DAY SUPPLY, E11.9, 03/03/21 [...] mL, 6 Refills, Maintenance, 09/18/21 16:43:00 EDT, [facility], Partial fill upon patient request if... Start Date: 09/18/21 Status: Ordered Lantus Solostar Pen 100 units/mL subcutaneous solution See Instructions, Take 80 units via Subcutaneous Infusion Daily at bedtime. E11.9., # 30 mL, 9 Refills, Maintenance, 08/24/21 9:25:00 EDT, [facility], Partial fill upon patient request if the prescription is for a schedule II opioid d... Start Date: 08/24/21 Status: Ordered Lantus Solostar Pen 100 units/mL subcutaneous solution See Instructions, Decreased to 60U once a day as of 12/29/19, # 30 mL, 9 Refills, Maintenance, 09/20/20 15:10:00 EDT, [facility], NEEDS 30 ML FOR 30 DAY [...] 0 Refills, Maintenance, 09/08/21 9:35:00 EDT, Film, [facility]/pharmacy #[id number], Partial fill upon patient request if the prescription is for a schedule II opioid drug., 1patch Topically Daily, 157.48, cm, 08/24/21 8:03:00... Start Date: 09/08/21 Status: Ordered losartan 50 mg oral tablet 1 tablet, By Mouth, Daily, # 30 tablet, 2 Refills, [facility], 157.48, cm, 05/05/21 9:51:00 EST, Height Start [...] 05/01/21 Start Date: 06/02/21 Status: Ordered Pen [place], 31 G x 8 mm BD [...] # 12 tablet, 7 Refills, [facility], 157.48, cm, 05/23/21 13:08:00 EST, Height Start Date: 06/02/21 Status: Ordered tiZANidine 4 mg oral capsule 1 capsule, By Mouth, 3 times a day, # 90 capsule, 3 Refills, [facility], 157.48, cm, 05/23/21 13:08:00 EST, Height Start Date: 06/01/21 Status: Ordered Topamax 25 mg oral tablet 2 tablet = 50 mg, By Mouth, Daily at bedtime, # 60 tablet, 6 Refills, Maintenance, 08/29/21 14:04:00 EDT, Tablet, [facility]/pharmacy #4471, 157.48, cm, 08/24/21 8:03:00 EDT, Height Start Date: 08/29/21 Stop Date: 03/27/22 Status: Ordered Trulicity Pen 3 mg/0.5 mL subcutaneous solution See Instructions, INJECT 0.5ML SUBCUTANEOUSLY EVERY WEEK, ROTATE INJECTION SITES, # 2 mL, 5 Refills, 08/24/21 9:20:00 EDT, [facility], 157.48, cm, 08/24/21 8:03:00 EDT, Height Start Date: 08/24/21 Status: Ordered Vascepa 1 g oral capsule 2 capsule = 2 Gm, By Mouth, 2 times a day, # 360 capsule, 5 Refills, Maintenance, 05/03/20 15:59:00EST, Capsule, [facility]/pharmacy #4471, 157.48, cm, 03/04/20 [...] Active *Briana Garces, Care Coor dinator, ICP [phone](Confirmed) Active Reflux(Confirmed) Active Hepatic steatosis(Confirmed) Active -EF [...]
--- OUTSIDE RECORDS SUMMARY | 2024-01-23 14:25 | XMS_ITS | Continuity of Care Document ---
Author Organization [facility] Address [address] [facility], [address] d Floor, [address] [place] [id number]- Care Team Providers Care Pole Tester Name Role Phone Sergo Bazzi MD Primary Care Physician Encounter [facility] [place] Date(s): 02/12/23 - 02/19/23 [facility] [address], [address], [address] [place], [place] [address] Attending Physician: Not on Staff, Attending MD [...] (oldterm) 8 01/21/08 Given 1Result Comment: [01/22/2017] [facility] [id number] 2Admin Note: vis given dated 10/24/12 3Admin [...] 100 tablet, 1 Refills, Acute, 219:52:00 EDT, [facility] ST[facility] [address]65, 157.48, cm, 10/11/20 9:39:00 EDT, Height Start Date: 10/26/20 Status: Ordered Alcohol Pads See Instructions, # 200 each, Refills 11, Tot. Refills 11, Maintenance, To cleans before injections5 x a day., 03/03/21 9:18:00 EST, E11.65, Compound, 157.48, cm, 03/01/21 15:54:00 EST, Height Start Date: 03/03/21 Stop Date: 02/26/22 Status: Ordered Rvjkc-Xkqklm-Wgud 300 mg oral capsule 1 capsule, By Mouth, 2 times a day, NOT COVERED., # 60 capsule, 11 Refills, [facility] ST[facility] [id number], 157.48, cm, 01/27/21 9:30:00 EDT, Height Start Date: 01/30/21 Status: Ordered ammonium lactate 12% topical cream 1 application, Topically, 2 times a day, # 385 Gm, 1 Refills, Maintenance, 12/22/22 14:16:00 EDT, Cream, [facility]/pharmacy #[id number], Partial fill upon patient request if the prescription is for a schedule IIopioid drug., 1 application Topically 2 times a day... Start Date: 12/22/22 Stop Date: 02/20/23 Status: Ordered atorvastatin 80 mg oral tablet 1 tablet = 80 mg, By Mouth, Daily, replaces Simvastatin, # 90 tablet, 1 Refills, Maintenance, 11/19/23 14:22:00 EDT, Tablet, [facility]/pharmacy #[id number], replaces simvastatin, 157.5, cm, 11/26/22 14:11:00 EDT, Height Start Date: 11/19/23 Stop Date: 05/17/24 Status: Ordered atorvastatin 80 mg oral tablet 1 tablet = 80 mg, By Mouth, Daily, for 90 days, replaces Simvastatin, # 90 tablet, 4 Refills, Hard Stop 11/19/23 14:22:00 EDT, 08/26/22 14:22:00 EDT, Tablet, [facility]/pharmacy #[id number], replaces simvastatin,157.5, cm, 11/29/21 15:59:00 EDT, Height Start Date: 08/26/22 Stop Date: 11/19/23 Status: Ordered BD Single Use Swab 70% topical pad See Instructions, TO CLEANS BEFORE INJECTIONS 5 X A DAY., # 150 Unknown, 11 Refills, Maintenance, 08/16/22 10:15:00 EDT, [facility], 30, TO CLEANS BEFORE INJECTIONS 5 X A DAY., 157.5, cm, 08/01/22 9:27:00 EDT, Height Start Date: 08/16/22 Status: Ordered capsaicin 0.075% topical cream See Instructions, APPLY TO AFFECTED AREA TWICE A DAY, # 57 Gm, 4 Refills, Maintenance, 08/24/22 14:16:00 EDT, [facility]/pharmacy #[id number], 30, APPLY TO AFFECTED AREA TWICE [...] tablet, 11 Refills, Maintenance, 07/09/22 10:30:00 EDT, [facility]/pharmacy #[id number], 30, 1 tablet By Mouth Daily,Instr:INSTR:TAKE IT 2 HOURS SEPARATE FROM ORLISTAT ([place]), 157... Start Date: 07/09/22 Status: Ordered diclofenac 1% topical gel See Instructions, APPLY TOPICALLY 4 TIMES A DAY NOT TO EXCEED 16 GRAMS/DAY/SINGLE JOINT OF LOWER EXTREMITIES, # 100 Gm, 1 Refills, Maintenance, 12/14/22 6:14:00 EDT, [facility]/pharmacy #[id number], 30, APPLY TOPICALLY 4 TIMES A DAY NOT TO EXCEED 16 GRAMS/DAY/SING... Start Date: 12/14/22 Status: Ordered docusate sodium 100 mg oral capsule See Instructions, TAKE 1 CAPSULE BY MOUTH TWICE A DAY NEEDED FOR CONSTIPATION, # 60 capsule, 5 Refills, Maintenance, 07/03/22 18:20:00 EDT, [facility]/pharmacy #[id number], Duplicate Rx. Original sent 07/03/22 with routing error. Re- sending to pharmacy, 157.5, cm... Start Date: 07/03/22 Status: Ordered docusate sodium 100 mg oral capsule 100 mg, 1, capsule, By Mouth, 2 times a day, PRN, # 60 capsule, Refills 5, Tot. Refills 5, Maintenance, as needed for constipation, 06/12/22 9:52:00 EDT, Route to Pharmacy Electronically, [facility]/pharmacy #[id number], Partial fill upon patient request if the pr... Start Date: 06/12/22 Status: Ordered esomeprazole 40 mg oral enteric coated capsule 1 capsule = 40 mg, By Mouth, Daily, # 90 capsule, 0 Refills, Maintenance, 12/24/22 15:20:00 EDT, [facility]/pharmacy #[id number], Partial fill upon patient request if [...] each, 0 Refills, Maintenance, 09/20/22 9:36:00 EDT, [facility], 30, INHALE 1 PUFF BY MOUTH TWICE A DAY, 157.5, cm, 09/05/22 16:22:00 EDT, Height Start Date: 09/20/22 Status: Ordered fluticasone 50 mcg/inh nasal spray See Instructions, SPRAY 1 SPRAY INTO EACH NOSTRIL EVERY DAY, # 16 mL, 5 Refills, Maintenance, 07/05/22 16:20:00 EDT, [facility]35, 30, SPRAY 1 SPRAY INTO EACH NOSTRIL [...] mL, 6 Refills, Maintenance, 11/26/22 14:55:00 EDT, [facility], Partial fill upon patie... [...] 5 Refills, Maintenance, 08/17/22 9:03:00 EDT, Tablet, [facility]/pharmacy #[id number], Partial fill upon patient request if the prescription is for a schedule II opioid drug., 157.5, cm, ... Start Date: 08/17/22 Stop Date: 02/13/23 Status: Ordered Lantus Solostar Pen 100 units/mL subcutaneous solution See Instructions, Take 45 units in the AM and 45 units daily at bedtime. E11.9., # 30 mL, 9 Refills, Maintenance, 11/26/22 14:55:00 EDT, [facility], Partial fill upon patient requestif the prescription is for a schedule II opioid lucas... Start Date: 11/26/22 Status: Ordered lidocaine 5% topical ointment See Instructions, APPLY TO AFFECTED AREA 3 TIMES A DAY, # 35.44 Gm, 11 Refills, Maintenance, 02/28/22 8:51:00 EST, [facility]/pharmacy #[id number], 30, APPLY TO AFFECTED AREA 3 TIMES A DAY, 157.5, cm, 02/21/22 14:36:00 EST, Height Start Date: 02/28/22 Status: Ordered lidocaine 5% topical ointment See Instructions, APPLY TO AFFECTED AREA 3 TIMES A DAY, # 35.44 Gm, 11 Refills, Maintenance, 07/03/22 18:22:00 EDT, [facility]/pharmacy #[id number], 30, Duplicate Rx. Original sent 07/03/22 [...] 5 Refills, Maintenance, 01/21/23 15:40:00 EDT, Capsule, [facility]/pharmacy #[id number], Partial fill upon patient request if the prescription is for a schedule II opioid drug., 157.5,... Start Date: 01/21/23 Status: Ordered mirtazapine 15 mg oral tablet 1 tablet = 15 mg, By Mouth, Daily at bedtime, # 30 tablet, 4 Refills, Maintenance, 12/06/22 13:07:00 EDT, Tablet, [facility]/pharmacy #[id number], Partial fill upon patient request if the prescription is for a schedule II opioid drug., 157.5, cm, 11/26/22 14:11:00... Start Date: 12/06/22 Stop Date: 05/05/23 Status: Ordered [place]-3 Fish Oil 1000 mg oral capsule 1 [...] 05/01/21 Start Date: 06/02/21 Status: Ordered Pen Winifred, 31 G x 8 mm BD Ultra [...] 12/06/22 13:08:00 EDT, Route to Pharmacy Electronically, [facility]/pharmacy #[id number], Partial fill upon patient request if the prescription is for a schedule II opi... Start Date: 12/06/22 Stop Date: 05/05/23 Status: Ordered occupational health nurse grabber tool occupational health nurse grabber tool, See Instructions, # 1 each, Refills 0, Tot. Refills 0, Maintenance, please dispense one occupational health nurse grabber tool, ICD 10 M54.6, length of use 1 month, 04/12/22 10:13:00 EST, Supply Start Date: 04/12/22 Status: Ordered replacement hospital bed with mattress replacement hospital bed with mattress, See Instructions, # 1 each, Refills 0, Tot. Refills 0, Maintenance, please dispense 1 [facility], DX G89.4, length of use lifetime, 06/20/22 14:20:00 EDT, Supply Start Date: 06/20/22 Status: Ordered topiramate 25 mg oral tablet 3 tablet, By Mouth, Daily at bedtime, # 90 tablet, 10 Refills, Maintenance, 01/17/23 8:54:00 EDT, [facility], 157.5, cm, 12/28/22 15:12:00 EDT, Height Start Date: 01/17/23 Status: Ordered Trulicity Pen 4.5 mg/0.5 mL subcutaneous solution See Instructions, INJECT 4.5 MG SUBCUTANEOUSLY ONCE A WEEK, # 2 mL, 5 Refills, Maintenance, 11/21/22 8:33:00 EDT, [facility], 157.5, cm, 11/16/22 13:50:00 EDT, Height Start Date: 11/21/22 Status: Ordered valACYclovir 500 mg oral tablet 1, tablet, By Mouth, 2 times a day, PRN, # 6 tablet, Refills 1, Tot. Refills 1, Maintenance, NEEDED FOR OUTBREAKS, 12/14/22 6:14:00 EDT, Route to Pharmacy Electronically, [facility]/pharmacy #[id number], 157.5, cm, 11/26/22 14:11:00 EDT, Height [...] capsule, 5 Refills, Maintenance, 05/03/20 15:59:00EST, Capsule, 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
--- OUTSIDE RECORDS SUMMARY | 2024-01-23 14:25 | XMS_ITS | Continuity of Care Document ---
Author Organization [facility] Address [address] [place] [address]- Care Team Providers Care Windmill Mechanic Name Role Phone Sergo Bazzi MD Primary Care Physician [place] [facility] [place]22 - 11/04/22 [facility] [address] [place], [place] [address] Attending Physician: Kerry Hernandez MD Admitting Physician: Kerry Hernandez MD Referring Physician: Sergo Bazzi MD Allergies, [...] (oldterm) 8 01/21/08 Given 1Result Comment: [01/22/2017] [facility] [id number] 2Admin Note: vis given dated 10/24/12 3Admin Note: vis given dated 10/01/11 4Admin Note: vis 5Admin Note: vis 6Admin Note: vis given: 10/27/2006 7Admin Note: vis given : 10/10/2005 8Admin Note: vis given 2007- Medications acetaminophen 500 mg oral tablet 2 tablet, By Mouth, 4 times a day, PRN NEEDED FOR PAIN, # 100 tablet, 1 Refills, Acute, 219:52:00 EDT, [facility] 78951, 157.48, cm, 10/11/20 9:39:00 EDT, Height Start Date: 10/26/20 Status: Ordered Alcohol Pads See Instructions, # 200 each, Refills 11, Tot. Refills 11, Maintenance, To cleans before injections5 x a day., 03/03/21 9:18:00 EST, E11.65, Compound, 157.48, cm, 03/01/21 15:54:00 EST, Height Start Date: 03/03/21 Stop Date: 02/26/22 Status: Ordered Stdqu-Laiqvv-Bqym 300 mg oral capsule 1 capsule, By Mouth, 2 times a day, NOT COVERED., # 60 capsule, 11 Refills, [facility], 157.48, cm, 01/27/21 9:30:00 EDT, Height Start Date: 01/30/21 Status: Ordered ammonium lactate 12% topical cream 1 application, Topically, 2 times a day, # 385 Gm, 3 Refills, Maintenance, 08/24/22 14:16:00 EDT, Cream, [facility]/pharmacy #[id number], Partial fill upon patient request if the prescription is for a schedule IIopioid drug., 1 application Topically 2 times a day... Start Date: 08/24/22 Stop Date: 12/22/22 Status: Ordered atorvastatin 80 mg oral tablet 1 tablet = 80 mg, By Mouth, Daily, replaces Simvastatin, # 90 tablet, 4 Refills, Maintenance, 08/26/22 14:22:00 EDT, Tablet, [facility]/pharmacy #[id number], replaces simvastatin, 157.5, cm, 11/29/21 15:59:00 EDT, Height Start Date: 08/26/22 Stop Date: 11/19/23 Status: Ordered BD Single Use Swab 70% topical pad See Instructions, TO CLEANS BEFORE INJECTIONS 5 X A DAY., # 150 Unknown, 11 Refills, Maintenance, 08/16/22 10:15:00 EDT, [facility], 30, TO CLEANS BEFORE INJECTIONS 5 X A DAY., 157.5, cm, 08/01/22 9:27:00 EDT, Height Start Date: 08/16/22 Status: Ordered capsaicin 0.075% topical cream See Instructions, APPLY TO AFFECTED AREA TWICE A DAY, # 57 Gm, 4 Refills, Maintenance, 08/24/22 14:16:00 EDT, [facility]/pharmacy #[id number], 30, APPLY TO AFFECTED AREA TWICE [...] tablet, 11 Refills, Maintenance, 07/09/22 10:30:00 EDT, [facility]/pharmacy #[id number], 30, 1 tablet By Mouth Daily,Instr:INSTR:TAKE IT 2 HOURS SEPARATE FROM ORLISTAT ([place]), 157... Start Date: 07/09/22 Status: Ordered diazepam 10 mg oral tablet See Instructions, PRN, 1/2 tablet By Mouth in AM and 1 tab at HS, # 45 tablet, Refills 4, Tot. Refills 4, Maintenance, as needed for anxiety, 08/30/22 13:32:00 EDT, Instructions Replace Required Details, Route to Pharmacy Electronically, [facility]/pharmacy... Start Date: 08/30/22 Status: Ordered diclofenac 1% topical gel See Instructions, APPLY TOPICALLY 4 TIMES A DAY NOT TO EXCEED 16 GRAMS/DAY/SINGLE JOINT OF LOWER EXTREMITIES, # 100 Gm, 6 Refills, Maintenance, 08/24/22 14:16:00 EDT, [facility]/pharmacy #[id number], 30, APPLY TOPICALLY 4 TIMES A DAY NOT TO EXCEED 16 GRAMS/DAY/SIN... Start Date: 08/24/22 Status: Ordered docusate sodium 100 mg oral capsule See Instructions, TAKE 1 CAPSULE BY MOUTH TWICE A DAY NEEDED FOR CONSTIPATION, # 60 capsule, 5 Refills, Maintenance, 07/03/22 18:20:00 EDT, [facility]/pharmacy #[id number], Duplicate Rx. Original sent 07/03/22 with routing error. Re- sending to pharmacy, 157.5, cm... Start Date: 07/03/22 Status: Ordered docusate sodium 100 mg oral capsule 100 mg, 1, capsule, By Mouth, 2 times a day, PRN, # 60 capsule, Refills 5, Tot. Refills 5, Maintenance, as needed for constipation, 06/12/22 9:52:00 EDT, Route to Pharmacy Electronically, [facility]/pharmacy #[id number], Partial fill upon patient request if [...] Refills, Maintenance, 09/20/22 9:36:00 EDT, [facility], 30, INHALE 1 PUFF BY MOUTH TWICE A DAY, 157.5, cm, 09/05/22 16:22:00 EDT, Height Start Date: 09/20/22 Status: Ordered fluticasone 50 mcg/inh nasal spray See Instructions, SPRAY 1 SPRAY INTO EACH NOSTRIL EVERY DAY, # 16 mL, 5 Refills, Maintenance, 07/05/22 16:20:00 EDT, [facility], 30, SPRAY 1 SPRAY INTO EACH NOSTRIL [...] Diabetes Mellitus to check BGs 4x dialy. E11., 06/19/22 17:01:00 EDT, Supply, 157.5, cm, 06/19/22 15:46:00 EDT, Height Start Date: 06/19/22 Stop Date: 12/16/22 Status: Ordered Freestyle Lite Monitor See Instructions, # 1 each, Refills 0, Tot. Refills 0, Maintenance, use as directed for Type 2 Diabetes Mellitus to check BGs 4x dialy. E11., 06/19/22 17:01:00 EDT, Supply, 157.5, cm, 06/19/22 [...] mL, 6 Refills, Maintenance, 06/12/22 10:00:00 EDT, [facility], Partial fill upon patie... Start Date: 06/12/22 Status: Ordered Lactaid 3000 units oral tablet 3 tablet = 9,000 units, By Mouth, 3 times a day with meals, # 120 tablet, 5 Refills, Maintenance, 08/17/22 9:03:00 EDT, Tablet, [facility]/pharmacy #[id number], Partial fill upon patient request if the prescription is for a schedule II opioid drug., 157.5, cm, ... Start Date: 08/17/22 Stop Date: 02/13/23 Status: Ordered Lantus Solostar Pen 100 units/mL subcutaneous solution See Instructions, Take 45 units in the AM and 45 units daily at bedtime. E11.9., # 30 mL, 9 Refills, Maintenance, 06/19/22 16:50:00 EDT, [facility], Partial fill upon patient requestif the prescription is for a schedule II opioid lucas... Start Date: 06/19/22 Status: Ordered lidocaine 5% topical ointment See Instructions, APPLY TO AFFECTED AREA 3 TIMES A DAY, # 35.44 Gm, 11 Refills, Maintenance, 02/28/22 8:51:00 EST, [facility]/pharmacy #[id number], 30, APPLY TO AFFECTED AREA 3 TIMES A DAY, 157.5, cm, 02/21/22 14:36:00 EST, Height Start Date: 02/28/22 Status: Ordered lidocaine 5% topical ointment See Instructions, APPLY TO AFFECTED AREA 3 TIMES A DAY, # 35.44 Gm, 11 Refills, Maintenance, 07/03/22 18:22:00 EDT, [facility]/pharmacy #[id number], 30, Duplicate Rx. Original sent 07/03/22 [...] Date: 10/18/22 Stop Date: 01/16/23 Status: Ordered [place]-3 Fish Oil 1000 mg oral capsule 1 capsule = 1,000 mg, By Mouth, Daily, # 90 capsule, 1 Refills, Maintenance, 08/01/22 10:17:00 EDT,[facility]/pharmacy #[id number], Partial fill upon patient request if the prescription is for a schedule II opioid drug., 157.5, cm, 08/01/22 9:27:00 EDT, Height Start Date: 08/01/22 Status: Ordered omeprazole 20 mg oral delayed release tablet 1 tablet = 20 mg, By Mouth, 2 times a day, do not crush or chew, # 60 tablet, 2 Refills, Maintenance, 06/14/22 16:40:00 EDT, EC Tablet, [facility]/pharmacy #[id number], Partial fill upon patient request if the prescription is for a schedule II opioid drug., 157.5,... Start Date: 06/14/22 Status: Ordered oxyCODONE 10 mg oral tablet TAKE 1/2 TAB EVERY 12 HOURS NEEDED FOR SEVERE NECK/LOW BACK PAIN. DO NOT FILL UNTIL 05/01/21 Start Date: 06/02/21 Status: Ordered Pen [place], 31 G x 8 mm BD Ultra [...] 08/30/22 13:31:00 EDT, Route to Pharmacy Electronically, [facility]/pharmacy #[id number], Partial fill upon patient request if the prescription is for a schedule II opi... Start Date: 08/30/22 Stop Date: 01/27/23 Status: Ordered real estate professor grabber tool real estate professor grabber tool, See Instructions, # 1 each, Refills 0, Tot. Refills 0, Maintenance, please dispense one real estate professor grabber tool, ICD 10 M54.6, length of use 1 month, 04/12/22 10:13:00 EST, Supply Start Date: 04/12/22 Status: Ordered replacement hospital bed with mattress replacement hospital bed with mattress, See Instructions, # 1 each, Refills 0, Tot. Refills 0, Maintenance, please dispense 1 replacement hospital bed wt heldertreveronica, DX G89.4, length of use lifetime, 06/20/22 14:20:00 EDT, Supply Start Date: 06/20/22 Status: Ordered simethicone 125 mg oral tablet, chewable 1 tablet = 125 mg, Chew, 4 times a day, PRN gas pain, for 21 days, # 48 tablet, 4 Refills, Acute 12/07/22 14:16:00 EDT, 08/24/22 14:16:00 EDT, Chew Tablet, [facility]/pharmacy #[id number], Partial fill upon patient request if the prescription is for a schedule II... Start Date: 08/24/22 Stop Date: 12/07/22 Status: Ordered SUMAtriptan 25 mg oral tablet 1 tablet, By Mouth, Daily, PRN NEEDED FOR MIGRAINES, for 30 days, MAY RPT DOSE AFTER 2 HRS TO MAX OF 2, # 12 tablet, 7 Refills, Physician Stop 12/15/22 14:36:00 EDT, 04/19/22 14:36:00 EST, [facility]/pharmacy #[id number], 157.5, cm, 04/11/22 10:50:00 EST, Height Start Date: 04/19/22 Stop Date: 12/15/22 Status: Ordered Topamax 25 mg oral tablet 3 tablet = 75 mg, By Mouth, Daily at bedtime, # 90 tablet, 6 Refills, Maintenance, 06/26/22 10:14:00 EDT, Tablet, [facility], 157.5, cm, 06/21/22 8:43:00 EDT, Height Start Date: 06/26/22 Stop Date: 01/22/23 Status: Ordered Trulicity Pen 3 mg/0.5 mL subcutaneous solution See Instructions, INJECT 0.5ML SUBCUTANEOUSLY EVERY WEEK, ROTATE INJECTION SITES, # 2 mL, 5 Refills, 01/23/22 16:33:00 EDT, [facility], 157.5, cm, 01/20/22 13:38:00 EDT, Height Start Date: 01/23/22 Status: Ordered Trulicity Pen 4.5 mg/0.5 mL subcutaneous solution See Instructions, 4.5 mg Subcutaneous Infusion weekly. E11.9, # 4 each, 5 Refills, Maintenance, 06/19/22 17:00:00 EDT, [facility], Partial fill upon patient request if the prescription is for a schedule II opioid drug., 157.5, cm, ... Start Date: 06/19/22 Status: Ordered valACYclovir 500 mg oral tablet 1, tablet, By Mouth, 2 times a day, PRN, # 6 tablet, Refills 2, Maintenance, NEEDED FOR OUTBREAKS, 07/11/22 16:11:00 EDT, Route to Pharmacy Electronically, [facility], 157.5, cm, 06/21/22 8:43:00 EDT, Height Start Date: 07/11/22 Stop Date: 07/14/22 Status: Ordered Vascepa 1 g oral capsule 2 capsule = 2 Gm, By Mouth, 2 times a day, # 360 capsule, 5 Refills, Maintenance, 05/03/20 15:59:00EST, Capsule, [facility]/pharmacy #[id number], 157.48, cm, 03/04/20 14:14:00 EST, Height Start Date: 05/03/20 Status: Ordered Ventolin HFA 108 mcg/inh inhalation aerosol with adapter 1 puffs, Inhalation, 4 times a day, PRN NEEDED FOR WHEEZING, # 18 each, 0 Refills, Maintenance, 09/17/22 15:25:00 EDT, [facility] 16328, 157.5, cm, 09/05/22 16:22:00 EDT, Height Start [...] 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 RN Member Role: Primary Care Nurse Care Team Related Persons Name: LB HENLEY Address: home [address] [address] Name: LB HENLEY Address: home [address] [place] [address] Name: MILENA CUBA Address: home [address] [facility] [address] [place] [address]
--- OUTSIDE RECORDS SUMMARY | 2024-01-23 14:25 | XMS_ITS | Continuity of Care Document ---
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 Date(s): 08/23/23 - 09/22/23 [facility] [address], [place] [address] Allergies, Adverse Reactions, Alerts Substance Reaction [...] 1Result Comment: [01/22/2017] [facility] [id number] 2Admin Note: vis given dated 10/24/12 3Admin [...] 1 Refills, Acute, 219:52:00 EDT, [facility], 157.48, cm, 10/11/20 9:39:00 EDT, Height Start [...] Date: 03/03/21 Stop Date: 02/26/22 Status: Ordered Qwsit-Cuckiz-Kvow 300 mg oral capsule 1 capsule, By Mouth, 2 times a day, NOT COVERED., # 60 capsule, 11 Refills, [facility], 157.48, cm, 01/27/21 9:30:00 EDT, Height Start Date: 01/30/21 Status: Ordered ammonium lactate 12% topical cream 1 application, Topically, 2 times a day, # 385 Gm, 1 Refills, Maintenance, 12/22/22 14:16:00 EDT, Cream, [facility]/pharmacy #[id number], Partial fill upon patient request if the prescription is for a schedule IIopioid drug., 1 application Topically 2 times a day... Start Date: 12/22/22 Stop Date: 02/20/23 Status: Ordered Artificial Tears preserved solution 1 drops, Eyes, Both, 2 times a day, PRN for dry eyes, # 15 mL, 0 Refills, Maintenance, 09/10/23 8:57:00 EDT, Solution, [facility]/pharmacy #[id number], Partial fill upon patient request if the prescription is fora schedule II opioid drug., 1 drops Eyes, Both 2 ti... Start Date: 09/10/23 Status: Ordered atorvastatin 80 mg oral tablet 1 tablet, By Mouth, Daily, INSTR:REPLACES SIMVASTATIN, # 90 tablet, 1 Refills, Maintenance, 05/22/23 12:07:00 EST, [facility] STORE 26129, 157, cm, 05/06/23 14:23:00 EST, Height, 88.3, kg, 04/16/23 11:33:00EST, Dry Weight Start Date: 05/22/23 Status: Ordered BD Single Use Swab 70% topical pad See Instructions, TO CLEANS BEFORE INJECTIONS 5 X A DAY., # 150 Unknown, 11 Refills, Maintenance, 08/16/22 10:15:00 EDT, [facility], 30, TO CLEANS BEFORE INJECTIONS 5 X A DAY., 157.5, cm, 08/01/22 9:27:00 EDT, Height Start Date: 08/16/22 Status: Ordered busPIRone 5 mg oral tablet 5 mg, 1, tablet, By Mouth, 3 times a day, # 90 tablet, Refills 4, Tot. Refills 4, Maintenance, 09/10/23 10:46:00 EDT, Route to Pharmacy Electronically, [facility]/pharmacy #[id number], Partial fill upon patient request if the prescription is for a schedule II opio... Start Date: 09/10/23 Stop Date: 02/07/24 Status: Ordered capsaicin 0.075% topical cream See Instructions, APPLY TO AFFECTED AREA TWICE A DAY, # 57 Gm, 4 Refills, Maintenance, 04/11/23 10:18:00 EST, [facility] ST[facility] 86590, 30, APPLY TO AFFECTED AREA TWICE A [...] tablet, 1 Refills, Maintenance, 07/02/23 18:31:00 EDT, [facility] ST[facility] 02697, 90, TAKE 1 TABLET BY MOUTH DAILY [...] 09/10/23 10:46:00 EDT, Route to Pharmacy Electronically, [facility]/pharmacy #[id number], Partial fill... Start Date: 09/10/23 Stop Date: 02/07/24 Status: Ordered diclofenac 1% topical gel See Instructions, APPLY TOPICALLY 4 TIMES A DAY NOT TO EXCEED 16 GRAMS/DAY/SINGLE JOINT OF LOWER EXTREMITIES, # 100 Gm, 4 Refills, Maintenance, 09/10/23 8:56:00 EDT, [facility]/pharmacy #[id number], 30, APPLY TOPICALLY 4 [...] 5 Refills, Maintenance, 07/03/22 18:20:00 EDT, [facility]/pharmacy #[id number], Duplicate Rx. Original sent 07/03/22 with routing error. Re- sending to pharmacy, 157.5, cm... Start Date: 07/03/22 Status: Ordered esomeprazole 40 mg oral enteric coated capsule 1 capsule = 40 mg, By Mouth, Daily, # 90 capsule, 1 Refills, Maintenance, 09/02/23 16:20:00 EDT, [facility]/pharmacy #[id number], Partial fill upon patient [...] Refills, Maintenance, 09/20/22 9:36:00 EDT, [facility], 30, INHALE 1 PUFF BY MOUTH TWICE A DAY, 157.5, cm, 09/05/22 16:22:00 EDT, Height Start Date: 09/20/22 Status: Ordered fluticasone 50 mcg/inh nasal spray See Instructions, SPRAY 1 SPRAY INTO EACH NOSTRIL EVERY DAY, # 16 mL, 5 Refills, Maintenance, 07/05/22 16:20:00 EDT, [facility]244, 30, SPRAY 1 SPRAY INTO EACH NOSTRIL [...] EDT, Height, 84, kg, 07/24/23 12:52:00 EDT, Start Date: 07/24/23 Stop Date: 07/18/24 Status: [...] tablet, 4 Refills, Maintenance, 03/11/23 15:50:00 EST, [facility], 157.5, cm, 02/19/23 9:20:00 EST, Height Start [...] mL, 6 Refills, Maintenance, 07/24/23 13:20:00 EDT, [facility], Partial fill upon patient request if the prescription is for a schedule II opioid drug., 157, cm, 07/24/23 12:52:00... Start Date: 07/24/23 Status: Ordered hydrOXYzine hydrochloride 25 mg oral tablet 1 tablet = 25 mg, By Mouth, 2 times a day, as needed for anxiety, # 60 tablet, 4 Refills, Soft Stop, 09/10/23 10:47:00 EDT, Tablet, [facility]/pharmacy #[id number], Partial fill upon patient request if the prescription is for a schedule II opioid drug., 157, cm, 0... Start Date: 09/10/23 Stop Date: 02/07/24 Status: Ordered lactase 3000 u oral tablet 3 tablet, By Mouth, 3 times a day with meals, X30 DAYS., # 120 tablet, 5 Refills, Maintenance, 04/25/23 15:25:00 EST, [facility] STORE 25114, 157, cm, 04/17/23 7:57:00 EST, Height, 88.3, kg, 04/16/23 11:33:00 EST, Dry Weight Start Date: 04/25/23 Status: Ordered Lantus Solostar Pen 100 units/mL subcutaneous solution See Instructions, Take 45 units in the AM and 45 units daily at bedtime. E11.9., # 30 mL, 9 Refills, Maintenance, 07/24/23 13:18:00 EDT, [facility], Partial fill upon patient requestif the prescription is for a schedule II opioid lucas... Start Date: 07/24/23 Status: Ordered levothyroxine 0.1 mg oral tablet 1 tablet = 100 mcg, By Mouth, Daily, # 30 tablet, 11 Refills, Maintenance, 07/25/23 8:52:00 EDT, [facility]/pharmacy #[id number], stop the 112mcg dose, 157, cm, 07/24/23 12:52:00 EDT, Height, 84, kg, 07/24/23 12:52:00 EDT, Dry Weight Start Date: 07/25/23 Stop Date: 07/19/24 Status: Ordered lidocaine 5% topical ointment See Instructions, APPLY TO AFFECTED AREA 3 TIMES A DAY, # 35.44 Gm, 11 Refills, Maintenance, 02/28/22 8:51:00 EST, [facility]/pharmacy #[id number], 30, APPLY TO AFFECTED AREA 3 TIMES A DAY, 157.5, cm, 02/21/22 14:36:00 EST, Height Start Date: 02/28/22 Status: Ordered lidocaine 5% topical ointment See Instructions, APPLY TO AFFECTED AREA 3 TIMES A DAY, # 35.44 Gm, 11 Refills, Maintenance, 07/03/22 18:22:00 EDT, [facility]/pharmacy #[id number], 30, Duplicate Rx. Original sent 07/03/22 with routing error. Re-sending to pharmacy, APPLY TO AFFECTED AREA 3 TIMES A... Start Date: 07/03/22 Status: Ordered losartan 50 mg oral tablet See Instructions, TAKE 1 TABLET BY MOUTH EVERY DAY, # 90 tablet, 1 Refills, Maintenance, 03/11/23 15:50:00 EST, [facility] STORE 85765, 157.5, cm, 02/19/23 9:20:00 EST, Height Start Date: 03/11/23 Status: Ordered Lyrica 25 mg oral capsule See Instructions, 1 capsule By Mouth 1 time daily at bedtime. E11.9, # 30 each, 2 Refills, Maintenance, 08/08/23 11:19:00 EDT, Capsule, [facility]/pharmacy #[id number], Partial fill upon patient request if the prescription is for a schedule II opioid drug., 157, c... Start Date: 08/08/23 Status: Ordered mirtazapine 15 mg oral tablet 1 tablet = 15 mg, By Mouth, Daily at bedtime, # 30 tablet, 4 Refills, Maintenance, 09/10/23 10:47:00 EDT, Tablet, [facility]/pharmacy #[id number], Partial fill upon patient request if the prescription is for a schedule II opioid drug., 157, cm, 09/10/23 8:42:00 ED... Start Date: 09/10/23 Stop Date: 02/07/24 Status: Ordered Narcan 4 mg/0.1 mL nasal spray = 4 mg, Nares, Both, Once, # 2 each, 2 Refills, Soft Stop, 02/22/23 14:30:00 EST, [facility]/pharmacy #[id number], Partial fill upon patient request if the prescription is for a schedule II opioid drug., 157.5, cm, 02/19/23 9:20:00 EST, Height Start Date: 02/22/23 Status: Ordered [place]-3 Fish Oil 1000 mg oral capsule 1 capsule = 1,000 mg, By Mouth, Daily, # 90 capsule, 1 Refills, Maintenance, 08/01/22 10:17:00 EDT,[facility]/pharmacy #[id number], Partial fill upon patient [...] Maintenance, 06/14/22 16:40:00 EDT, EC Tablet, [facility]/pharmacy #[id number], Partial fill upon patient request if the prescription is for a schedule II opioid drug., 157.5,... Start Date: 06/14/22 Status: Ordered ondansetron 4 mg oral tablet 1 tablet, By Mouth, Every 8 hours, PRN NEEDED FOR NAUSEA AND VOMITING FOR, # 30 tablet, 2 Refills, Maintenance, 07/03/23 14:40:00 EDT, [facility] STORE 75248, 157, cm, 06/24/23 14:54:00 EDT, Height, 88.3, [...] mL, 11 Refills, Maintenance, 08/23/23 11:17:00 EDT, [facility], Partial fill upon patient request if... Start Date: 08/23/23 Status: Ordered Pen [place], 31 G x 8 mm BD Ultra [...] 09/10/23 10:47:00 EDT, Route to Pharmacy Electronically, [facility]/pharmacy #[id number], Partial fill upon patient request if the prescription is for a schedule II opi... Start Date: 09/10/23 Stop Date: 02/07/24 Status: Ordered regulatory intern grabber tool regulatory intern grabber tool, See Instructions, # 1 each, Refills 0, Tot. Refills 0, Maintenance, please dispense one regulatory intern grabber tool, ICD 10 M54.6, length of [...] tablet, 10 Refills, Maintenance, 08/15/23 14:04:00 EDT, [facility]/pharmacy #[id number], 157, cm, 07/24/23 12:52:00 EDT, Height, 84, kg, 07/24/23 12:52:00 EDT, Dry Weight Start Date: 08/15/23 Status: Ordered valACYclovir 500 mg oral tablet 1, tablet, By Mouth, 2 times a day, PRN, # 6 tablet, Refills 0, Maintenance, NEEDED FOR OUTBREAKS, 08/05/23 15:33:00 EDT, Route to Pharmacy Electronically, [facility], 157, cm, 07/24/23 12:52:00 EDT, Height, 84, [...] Refills, Maintenance, 09/17/22 15:25:00 EDT, [facility], 157.5, cm, 09/05/22 16:22:00 EDT, Height Start [...] 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 *Briana Garces, Assistant Director Of Residence [employer], ICP [phone] Confirmed Active PTSD (post-traumatic stress disorder) Confirmed [...] Name: Rose Mary FISCHER, Sergo Cole Position: [facility] Physician - Primary Care Member Role: PCP Address: Address: [address] [place] [address] [place] [address]- Name: Lizbeth Collins [place] Position: [facility] Office Staff Member Role: Primary Care Nurse Care Team Related Persons Name: LB HENLEY Address: home [address] [address] Name: LB HENLEY Address: [address] [place] [address] Name: MILENA CUBA Address: home [address] [place] [address] [address] [place] [address]
--- OUTSIDE RECORDS SUMMARY | 2024-01-23 14:25 | XMS_ITS | Continuity of Care Document ---
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 Name Role Phone Rose Mary FISCHER, Sergo Cole Primary Care Physician Encounter [facility] Date(s): 03/16/22 - 04/15/22 [facility] [address] [place], [place] [address] Allergies, Adverse Reactions, Alerts Substance Reaction [...] (oldterm) 8 01/21/08 Given 1Result Comment: [01/22/2017] [facility] [id number] 2Admin Note: vis given dated 10/24/12 3Admin Note: vis given dated 10/01/11 4Admin Note: vis 5Admin Note: vis 6Admin Note: vis given: 10/27/2006 7Admin Note: vis given : 10/10/2005 8Admin Note: vis given 2007- Medications acetaminophen 500 mg oral tablet 2 tablet, By Mouth, 4 times a day, PRN NEEDED FOR PAIN, # 100 tablet, 1 Refills, Acute, 219:52:00 EDT, [facility], 157.48, cm, 10/11/20 9:39:00 EDT, Height Start Date: 10/26/20 Status: Ordered Alcohol Pads See Instructions, # 200 each, Refills 11, Tot. Refills 11, Maintenance, To cleans before injections5 x a day., 03/03/21 9:18:00 EST, E11.65, Compound, 157.48, cm, 03/01/21 15:54:00 EST, Height Start Date: 03/03/21 Stop Date: 02/26/22 Status: Ordered Neqql-Klgjqg-Pcnj 300 mg oral capsule 1 capsule, By Mouth, 2 times a day, NOT COVERED., # 60 capsule, 11 Refills, [facility], 157.48, cm, 01/27/21 9:30:00 EDT, Height Start [...] Gm, 4 Refills, Maintenance, 03/05/22 13:29:00 EST, [facility], 30, APPLY TO AFFECTED AREA TWICE A [...] tablet, 11 Refills, Maintenance, 08/19/20 16:26:00 EDT, [facility], 30, TAKE 1 TABLET BY MOUTH DAILY. [...] Gm, 6 Refills, Maintenance, 03/19/22 9:28:00 EST, [facility], 30, APPLY TOPICALLY 4 TIMES A DAY NOT TO EXCEED 16 GRAMS/DAY/SINGLE... Start Date: 03/19/22 Status: Ordered docusate sodium 100 mg oral capsule 100 mg, 1, capsule, By Mouth, 2 times a day, PRN, # 60 capsule, Refills 5, Tot. Refills 5, Maintenance, as needed for constipation, 11/10/21 9:17:00 EDT, Route to Pharmacy Electronically, [facility]/pharmacy #[id number], Partial fill upon patient request if the [...] each, 0 Refills, Maintenance, 03/22/22 16:35:00 EST, [facility] ST[facility] 38483, 30, INHALE 1 PUFF BY MOUTH TWICE A DAY, 157.5, cm, 03/22/22 13:25:00 EST, Height Start Date: 03/22/22 Status: Ordered fluticasone 50 mcg/inh nasal spray See Instructions, USE 1 SPRAY IN EACH NOSTRIL EVERY DAY, # 16 mL, 5 Refills, 12/29/21 15:10:00 EDT,[facility]/pharmacy #[id number], USE 1 SPRAY IN [...] 3 Refills, Maintenance, 03/22/22 15:43:00 EST, [facility], Partial fill upon patie... Start Date: 03/22/22 Status: Ordered Lantus Solostar Pen 100 units/mL subcutaneous solution See Instructions, Decreased to 60U once a day as of 12/29/19, # 30 mL, 9 Refills, Maintenance, 09/20/20 15:10:00 EDT, [facility], NEEDS 30 ML FOR 30 DAY SUPPLY E11.9, 157.48, cm, 05/31/20 9:41:00 EST, Height Start Date: 09/20/20 Status: Ordered Lantus Solostar Pen 100 units/mL subcutaneous solution See Instructions, Take 80 units via Subcutaneous Infusion Daily at bedtime. E11.9., # 30 mL, 9 Refills, Maintenance, 03/22/22 15:41:00 EST, [facility], Partial fill upon patient request if the prescription is for a schedule II opioid... Start Date: 03/22/22 Status: Ordered lidocaine 5% topical ointment See Instructions, APPLY TO AFFECTED AREA 3 TIMES A DAY, # 35.44 Gm, 11 Refills, Maintenance, 02/28/22 8:51:00 EST, [facility]/pharmacy #[id number], 30, APPLY TO AFFECTED AREA 3 TIMES A DAY, 157.5, cm, 02/21/22 14:36:00 EST, Height Start Date: 02/28/22 Status: Ordered losartan 50 mg oral tablet 1 tablet, By Mouth, Daily, # 30 tablet, 5 Refills, 12/08/21 16:06:00 EDT, [facility]/pharmacy #[id number], 157.5, cm, 11/29/21 15:59:00 EDT, Height Start Date: 12/08/21 Status: Ordered Lyrica 25 mg oral capsule See Instructions, 1 capsule By Mouth 1 time daily at bedtime. E11.9, # 30 each, 5 Refills, Maintenance, 09/18/21 12:21:00 EDT, Capsule, [facility]/pharmacy #[id number], Partial fill upon patient [...] Refills, Maintenance, 03/30/22 10:50:00 EST, EC Tablet, [facility]/pharmacy #[id number], Partial fill upon patient request if the prescription is for a schedule II opioid drug., 157.5,... Start Date: 03/30/22 Status: Ordered oxyCODONE 10 mg oral tablet TAKE 1/2 TAB EVERY 12 HOURS NEEDED FOR SEVERE NECK/LOW BACK PAIN. DO NOT FILL UNTIL 05/01/21 Start Date: 06/02/21 Status: Ordered Pen [place], 31 G x 8 mm BD Ultra [...] 1 Refills, Maintenance, 04/11/22 11:31:00 EST, Tablet, [facility]/pharmacy #[id number], Partial fill upon patient request if the prescription is for a schedule II opioid drug., 157.5, cm, 04/11/22 10:50:00 EST, Height Start Date: 04/11/22 Status: Ordered railroad car cleaner grabber tool railroad car cleaner grabber tool, See Instructions, # 1 each, Refills 0, Tot. Refills 0, Maintenance, please dispense one railroad car cleaner grabber tool, ICD 10 M54.6, length of use 1 month, 04/12/22 10:13:00 EST, Supply Start Date: 04/12/22 Status: Ordered simethicone 125 mg oral tablet, chewable 1 tablet = 125 mg, Chew, 4 times a day, PRN gas pain, for 21 days, # 48 tablet, 4 Refills, Acute 04/24/22 11:08:00 EST, 01/09/22 11:08:00 EDT, Chew Tablet, [facility]/pharmacy #[id number], Partial fill upon patient [...] Stop 09/16/22 11:02:00 EDT, 01/19/22 11:02:00 EDT, [facility]/pharmacy #[id number], 157.5, cm, 01/09/22 10:18:00 EDT, Height Start Date: 01/19/22 Stop Date: 09/16/22 Status: Ordered Topamax 25 mg oral tablet 3 tablet = 75 mg, By Mouth, Daily at bedtime, # 90 tablet, 6 Refills, Maintenance, 01/19/22 10:34:00 EDT, Tablet, [facility]/pharmacy #[id number], 157.5, cm, 01/09/22 10:18:00 EDT, Height Start Date: 01/19/22 Stop Date: 08/17/22 Status: Ordered Trulicity Pen 3 mg/0.5 mL subcutaneous solution See Instructions, INJECT 0.5ML SUBCUTANEOUSLY EVERY WEEK, ROTATE INJECTION SITES, # 2 mL, 5 Refills, 01/23/22 16:33:00 EDT, [facility], 157.5, cm, 01/20/22 13:38:00 EDT, Height Start Date: 01/23/22 Status: Ordered Trulicity Pen 4.5 mg/0.5 mL subcutaneous solution See Instructions, 4.5 mg Subcutaneous Infusion weekly. E11.9, # 4 each, 5 Refills, Maintenance, 03/22/22 15:41:00 EST, [facility], Partial fill upon patient request if the prescription is for a schedule II opioid drug., 157.5, cm, ... 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 No wall motion abnormalities, Does [...] Care Physician Member Role: PCP Address: Address: [address] [place] [address] [place] [address]- Care Team Related Persons Name: LB HENLEY Address: home [address] [address] Name: LB HENLEY Address: [address] [place] [address] Name: MILENA CUBA Address: home [address] [place] [address] [address] [place] [address]
--- OUTSIDE RECORDS SUMMARY | 2024-01-23 14:25 | XMS_ITS | Continuity of Care Document ---
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 Name Role Phone Rose Mary FISCHER, Sergo Cole Primary Care Physician Encounter [facility] Date(s): 04/21/20 - 04/28/20 [facility] [address], [address], [address] [place] [id number] Attending Physician: Jacqueline Montoya MD Referring Physician: Rose Mary FISCHER, Sergo Cole Allergies, Adverse Reactions, Alerts Substance Reaction Severity Status morphine ITCH DIARRHEA Active trazodone DEPRESSION Active Latex powder eats up skin Active Vioxx heart problems Active cortisone Active Motrin eat lining of stomach Active Naprosyn gi upset Active CeleBREX gi upset Active Neurontin mental status changes Active Ultram nausea, vomit Active Immunizations Given [...] [facility] [id number] 2Admin Note: vis given dated 10/24/12 3Admin [...] mL, 5 Refills, Maintenance, 09/02/19 13:54:00 EDT, [facility], E11.9, 157.48, cm, 04/27/19 [...] tablet, 3 Refills, Maintenance, 02/01/20 15:26:00 EST, [facility]/pharmacy #[id number], 157.48, cm, 01/25/20 15:23:00 EDT, [...] tablet, 5 Refills, Maintenance, 12/21/19 17:01:00 EDT, [facility]/pharmacy#[id number], 157.48, cm, 04/27/19 15:43:00 EST, Height Start Date: 12/21/19 Status: Ordered atorvastatin 80 mg oral tablet 1 tablet = 80 mg, By Mouth, Daily, replaces Simvastatin, # 90 tablet, 4 Refills, Maintenance, 02/23/20 11:05:00 EST, Tablet, [facility]/pharmacy #[id number], replaces simvastatin, 157.48, cm, 01/25/20 15:23:00 EDT, Height Start Date: 02/23/20 Stop Date: 05/18/21 Status: Ordered atorvastatin 80 mg oral tablet 1 tablet = 80 mg, By Mouth, Daily, for 90 days, replaces Simvastatin, # 90 tablet, 4 Refills, Hard Stop 04/01/21 14:01:00 EST, 01/07/20 14:01:00 EDT, Tablet, [facility]/pharmacy #[id number], replaces simvastatin,157.48, cm, 12/29/19 15:55:00 EDT, Height Start Date: 01/07/20 Stop Date: 04/01/21 Status: Ordered BD ultra fine III pen needles [id number] BD ultra fine III pen needles [id number], See Instructions, # 360 each, Refills 3, [...] 60 Gm, 4 Refills, Acute, [facility], 30, APPLY TO AFFECTED AREA TWICE A DAY, 157.48, cm, 04/27/19 15:43:00 EST, Height Start Date: 12/09/19 Status: Ordered cyclobenzaprine 10 mg oral tablet 10 mg, 1, tablet, By Mouth, 3 times a day, PRN, for 15 days, # 45 tablet, Refills 0, Tot. Refills 0, Acute 05/05/20 21:17:00 EST, for spasm, 04/20/20 21:17:00 EST, [id number] Partial fill upon patient request... Start Date: 04/20/20 Stop Date: 05/05/20 Status: Ordered diazepam 5 mg oral tablet Refills 0, Maintenance, 05/30/17 11:18:02 Start Date: 05/30/17 Status: Ordered diclofenac 1% topical gel 1 application, Topically, 4 times a day, not to exceed 16 grams/day/single joint of lower extremities, # 100 Gm, 6 Refills, Maintenance, 12/24/19 9:18:00 EDT, Gel, [facility]/pharmacy #[id number], 157.48, cm, 04/27/19 15:43:00 EST, [...] Maintenance, 01/07/20 14:00:00 EDT, Tablet, [facility]/pharmacy #[id number], 157.48, cm, 12/29/19 15:55:00 EDT, [...] Refills, Maintenance, 12/10/19 12:46:00 EDT, [facility]/pharmacy #[id number], 1 sprays Nares, Both Daily,x30 [...] 3, Maintenance, use up to check blood [id number] per day. 90 DAY SUPPLY, E11.9, 02/29/20 [...] mL, 2 Refills, Maintenance, 04/07/20 16:52:00 EST, [facility], Partial fill upon patient [...] mL, 11 Refills, Maintenance, 09/02/19 13:55:00 EDT, [facility], NEEDS 30 ML FOR [...] Maintenance, 05/15/19 15:00:00 EST, Ointment, [facility]/pharmacy #[id number], 1 application Topically 3 times a day,x30 days, 157.48, cm, 04/27/19 15:43:00 EST, Height Start Date: 05/15/19 Stop Date: 05/09/20 Status: Ordered losartan 50 mg oral tablet 50 mg, 1, tablet, By Mouth, Daily, can substitute 25mg tabs x2 if needed, # 30 tablet, Refills 5, Tot. Refills 5, Maintenance, 01/11/20 11:21:00 EDT, Route to Pharmacy Electronically, [facility]/pharmacy #[id number], 157.48, cm, 12/29/19 15:55:00 EDT, [...] Maintenance, 08/14/19 8:49:00 EDT, Tablet, [facility]/pharmacy #[id number], 1 tablet By Mouth Daily,x90 days,Instr:Take it 2 hours separate from Orlistat ([place]), 157.... Start Date: 08/14/19 Stop Date: 11/06/20 Status: Ordered oxyCODONE 5 mg oral tablet 5 mg, 1, tablet, By Mouth, Every 12 hours, PRN, Refills 0, Tot. Refills 0, Maintenance, as needed for pain, 02/16/19 14:51:00 EST, Partial fill upon patient request Start Date: 02/16/19 Status: Ordered Pen [place], 31 G x 8 mm BD Ultra [...] 13:36:00 EDT, 04/21/20 13:36:00 EST, Tablet, [facility]/pharmacy #[id number], 157.48, cm, 03/04/20... Start Date: 04/21/20 Stop Date: 11/17/20 Status: Ordered Topamax 25 mg oral tablet 2 tablet = 50 mg, By Mouth, Daily at bedtime, # 60 tablet, 6 Refills, Maintenance, 04/21/20 13:35:00 EST, Tablet, [facility]/pharmacy #[id number], 157.48, cm, 03/04/20 14:14:00 EST, Height Start Date: 04/21/20 Stop Date: 11/17/20 Status: Ordered Trulicity Pen 1.5 mg/0.5 mL subcutaneous solution 0.5 mL = 1.5 mg, Subcutaneous Injection, Every Saturday, for 90 days, # 7.5 mL, 3 Refills, Hard Stop 12/08/21 15:26:00 EDT, 12/13/20 15:26:00 EDT, Solution, [facility], E11.65, 157.48, cm, 04/27/19 15:43:00 EST, Height Start Date: 12/13/20 Stop Date: 12/08/21 Status: Ordered Trulicity Pen 1.5 mg/0.5 mL subcutaneous solution 0.5 mL = 1.5 mg, Subcutaneous Injection, Every Saturday, E11.9, # 7.5 mL, 3 Refills, Maintenance, 12/08/21 15:26:00 EDT, Solution, [facility], E11.65, 157.48, cm, 03/04/20 14:14:00 EST, Height Start Date: 12/08/21 Stop Date: 12/03/22 Status: Ordered Trulicity Pen 1.5 mg/0.5 mL subcutaneous solution 0.5 mL = 1.5 mg, Subcutaneous Injection, Every Saturday, for 90 days, # 6.5 mL, 5 Refills, Hard Stop 12/13/20 15:26:00 EDT, 06/22/19 15:26:00 EDT, Solution, [facility]/pharmacy #[id number], E11.65, 157.48, cm, 04/27/19 15:43:00 EST, Height Start Date: 06/22/19 Stop Date: 12/13/20 Status: Ordered Vascepa 1 g oral capsule 2 capsule = 2 Gm, By Mouth, 2 times a day, # 360 capsule, 0 Refills, Maintenance, 01/25/20 15:40:00EDT, Capsule, [facility]/pharmacy #[id number], 157.48, cm, 01/25/20 15:23:00 EDT, [...] Active *Briana Garces, Care Coor dinator, ICP [phone](Confirmed) Active Reflux(Confirmed) Active 57878 -EF 60-65%. No wall motion abnormalities, Does [...]
--- OUTSIDE RECORDS SUMMARY | 2024-01-23 14:25 | XMS_ITS | Continuity of Care Document ---
Author Organization [facility] Address [address] [place] [address]- Care Team Providers Care Health Lead Name Role Phone Rose Mary FISCHER, Sergo Cole Primary Care Physician [phone] Encounter [facility] Date(s): 09/01/21 - 10/01/21 [facility] [address] [place], [place] [address] Attending Physician: Broderick Washburn Admitting Physician: AdmtrBroderick Referring Physician: Admtr, Ar8 [...] (oldterm) 8 01/21/08 Given 1Result Comment: [01/22/2017] [facility] [id number] 2Admin Note: vis given dated 10/24/12 3Admin Note: vis given dated 10/01/11 4Admin Note: vis 5Admin Note: vis 6Admin Note: vis given: 10/27/2006 7Admin Note: vis given : 10/10/2005 8Admin Note: vis given 2007- Medications acetaminophen 500 mg oral tablet 2 tablet, By Mouth, 4 times a day, PRN NEEDED FOR PAIN, # 100 tablet, 1 Refills, Acute, 219:52:00 EDT, [facility], 157.48, cm, 10/11/20 9:39:00 EDT, Height Start Date: 10/26/20 Status: Ordered Alcohol Pads See Instructions, # 200 each, Refills 11, Tot. Refills 11, Maintenance, To cleans before injections5 x a day., 03/03/21 9:18:00 EST, E11.65, Compound, 157.48, cm, 03/01/21 15:54:00 EST, Height Start Date: 03/03/21 Stop Date: 02/26/22 Status: Ordered Lhbap-Fygoly-Dogi 300 mg oral capsule 1 capsule, By Mouth, 2 times a day, NOT COVERED., # 60 capsule, 11 Refills, [facility], 157.48, cm, 01/27/21 9:30:00 EDT, Height Start Date: 01/30/21 Status: Ordered ammonium lactate 12% topical cream 1 application, Topically, 2 times a day, # 385 Gm, 5 Refills, Maintenance, 09/08/21 9:35:00 EDT, Cream, [facility]/pharmacy #[id number], Partial fill upon patient request if the prescription is for a schedule II opioid drug., 1 application Topically 2 times a day,... Start Date: 09/08/21 Stop Date: 03/07/22 Status: Ordered aspirin 81 mg oral delayed release tablet 1 tablet, By Mouth, Daily, # 30 tablet, 11 Refills, Maintenance, 06/21/20 17:44:00 EDT, [facility], 157.48, cm, 05/31/20 9:41:00 EST, Height Start Date: 06/21/20 Status: Ordered atorvastatin 80 mg oral tablet 1 tablet = 80 mg, By Mouth, Daily, replaces Simvastatin, # 90 tablet, 4 Refills, Maintenance, 06/02/21 14:22:00 EST, Tablet, [facility]/pharmacy #[id number], replaces simvastatin, 157.48, cm, 06/02/21 14:20:00 EST, Height Start Date: 06/02/21 Stop Date: 08/26/22 Status: Ordered Blood Pressure Monitor See Instructions, # 1 each, Maintenance, monitor BP 2/week dx I10, 09/01/21 15:39:00 EDT, Supply Start Date: 09/01/21 Status: Ordered Daily David oral tablet 1 tablet, By Mouth, Daily, INSTR:TAKE IT 2 HOURS SEPARATE FROM ORLISTAT ([place]), # 30 tablet, 11 Refills, Maintenance, 08/19/20 16:26:00 EDT, [facility], 30, TAKE 1 TABLET BY MOUTH DAILY. [...] 6 Refills, Maintenance, 09/01/21 13:11:00 EDT, Gel, [facility]/pharmacy #[id number], 157.48, cm, 08/24/21 8:03:00 EDT, Height [...] EVERY DAY, # 16 mL, 5 Refills, [facility], 30, USE 1 SPRAY IN EACH NOSTRIL [...] 3, Maintenance, use up to check blood [id number] per day. 90 DAY SUPPLY, E11.9, 03/03/21 [...] mL, 6 Refills, Maintenance, 09/18/21 16:43:00 EDT, [facility], Partial fill upon patient request if... Start Date: 09/18/21 Status: Ordered Lantus Solostar Pen 100 units/mL subcutaneous solution See Instructions, Take 80 units via Subcutaneous Infusion Daily at bedtime. E11.9., # 30 mL, 9 Refills, Maintenance, 08/24/21 9:25:00 EDT, [facility], Partial fill upon patient request if the prescription is for a schedule II opioid d... Start Date: 08/24/21 Status: Ordered Lantus Solostar Pen 100 units/mL subcutaneous solution See Instructions, Decreased to 60U once a day as of 12/29/19, # 30 mL, 9 Refills, Maintenance, 09/20/20 15:10:00 EDT, [facility], NEEDS 30 ML FOR [...] 0 Refills, Maintenance, 09/08/21 9:35:00 EDT, Film, [facility]/pharmacy #[id number], Partial fill upon patient request if the prescription is for a schedule II opioid drug., 1patch Topically Daily, 157.48, cm, 08/24/21 8:03:00... Start Date: 09/08/21 Status: Ordered losartan 50 mg oral tablet 1 tablet, By Mouth, Daily, # 30 tablet, 2 Refills, [facility], 157.48, cm, 05/05/21 9:51:00 EST, Height Start Date: 05/12/21 Status: Ordered Lyrica 25 mg oral capsule See Instructions, 1 capsule By Mouth 1 time daily at bedtime. E11.9, # 30 each, 5 Refills, Maintenance, 09/18/21 12:21:00 EDT, Capsule, [facility]/pharmacy #[id number], Partial fill upon patient request if [...] 60 capsule, 2 Refills, 09/26/21 14:42:00 EDT, [facility]/pharmacy #[id number], 157.48, cm, 09/20/21 9:26:00 EDT, Height Start Date: 09/26/21 Status: Ordered oxyCODONE 10 mg oral tablet TAKE 1/2 TAB EVERY 12 HOURS NEEDED FOR SEVERE NECK/LOW BACK PAIN. DO NOT FILL UNTIL 05/01/21 Start Date: 06/02/21 Status: Ordered Pen [place], 31 G x 8 mm BD Ultra [...] # 12 tablet, 7 Refills, [facility], 157.48, cm, 05/23/21 13:08:00 EST, Height Start Date: 06/02/21 Status: Ordered tiZANidine 4 mg oral capsule 1 capsule, By Mouth, 3 times a day, # 90 capsule, 3 Refills, [facility], 157.48, cm, 05/23/21 13:08:00 EST, Height Start Date: 06/01/21 Status: Ordered Topamax 25 mg oral tablet 2 tablet = 50 mg, By Mouth, Daily at bedtime, # 60 tablet, 6 Refills, Maintenance, 08/29/21 14:04:00 EDT, Tablet, [facility]/pharmacy #[id number], 157.48, cm, 08/24/21 8:03:00 EDT, Height Start Date: 08/29/21 Stop Date: 03/27/22 Status: Ordered Trulicity Pen 3 mg/0.5 mL subcutaneous solution See Instructions, INJECT 0.5ML SUBCUTANEOUSLY EVERY WEEK, ROTATE INJECTION SITES, # 2 mL, 5 Refills, 08/24/21 9:20:00 EDT, [facility], 157.48, cm, 08/24/21 8:03:00 EDT, Height Start Date: 08/24/21 Status: Ordered Vascepa 1 g oral capsule 2 capsule = 2 Gm, By Mouth, 2 times a day, # 360 capsule, 5 Refills, Maintenance, 05/03/20 15:59:00EST, Capsule, [facility]/pharmacy #[id number], 157.48, cm, 03/04/20 14:14:00 EST, Height [...] Active *Briana Garces, Care Coor dinator, ICP [phone](Confirmed) Active Reflux(Confirmed) Active Hepatic steatosis(Confirmed) Active -EF [...]
--- OUTSIDE RECORDS SUMMARY | 2024-01-23 14:26 | XMS_ITS | Continuity of Care Document ---
Author Organization [facility] Address [address] [place] [address]- Care Team Providers Care Scheduler Maintenance Name Role Phone Rose Mary FISCHER, Sergo Cole Primary Care Physician [phone] Encounter [facility] Date(s): 11/26/22 - 12/26/22 [facility] [address] [place], [place] [address] Allergies, Adverse Reactions, Alerts Substance Reaction Severity Status morphine ITCH DIARRHEA Active trazodone DEPRESSION Active Ultram nausea, vomit Active Vioxx heart problems Active Latex powder eats up skin Active Neurontin mental status changes Active cortisone Active Motrin eat lining of stomach Active Naprosyn gi upset Active CeleBREX gi upset Active Immunizations Given [...] 1Result Comment: [01/22/2017] [facility] [id number] 2Admin Note: vis given dated 10/24/12 3Admin [...] 100 tablet, 1 Refills, Acute, 219:52:00 EDT, [facility], 157.48, cm, 10/11/20 9:39:00 EDT, Height Start Date: 10/26/20 Status: Ordered Alcohol Pads See Instructions, # 200 each, Refills 11, Tot. Refills 11, Maintenance, To cleans before injections5 x a day., 03/03/21 9:18:00 EST, E11.65, Compound, 157.48, cm, 03/01/21 15:54:00 EST, Height Start Date: 03/03/21 Stop Date: 02/26/22 Status: Ordered Szzsh-Cgdeku-Lesd 300 mg oral capsule 1 capsule, By Mouth, 2 times a day, NOT COVERED., # 60 capsule, 11 Refills, [facility], 157.48, cm, 01/27/21 9:30:00 EDT, Height Start Date: 01/30/21 Status: Ordered ammonium lactate 12% topical cream 1 application, Topically, 2 times a day, # 385 Gm, 1 Refills, Maintenance, 12/22/22 14:16:00 EDT, Cream, [facility]/pharmacy #[id number], Partial fill upon patient request if the prescription is for a schedule IIopioid drug., 1 application Topically 2 times a day... Start Date: 12/22/22 Stop Date: 02/20/23 Status: Ordered atorvastatin 80 mg oral tablet 1 tablet = 80 mg, By Mouth, Daily, replaces Simvastatin, # 90 tablet, 1 Refills, Maintenance, 11/19/23 14:22:00 EDT, Tablet, [facility]/pharmacy #[id number], replaces simvastatin, 157.5, cm, 11/26/22 14:11:00 EDT, Height Start Date: 11/19/23 Stop Date: 05/17/24 Status: Ordered atorvastatin 80 mg oral tablet 1 tablet = 80 mg, By Mouth, Daily, for 90 days, replaces Simvastatin, # 90 tablet, 4 Refills, Hard Stop 11/19/23 14:22:00 EDT, 08/26/22 14:22:00 EDT, Tablet, [facility]/pharmacy #[id number], replaces simvastatin,157.5, cm, 11/29/21 15:59:00 EDT, Height Start Date: 08/26/22 Stop Date: 11/19/23 Status: Ordered BD Single Use Swab 70% topical pad See Instructions, TO CLEANS BEFORE INJECTIONS 5 X A DAY., # 150 Unknown, 11 Refills, Maintenance, 08/16/22 10:15:00 EDT, [facility], 30, TO CLEANS BEFORE INJECTIONS 5 X A DAY., 157.5, cm, 08/01/22 9:27:00 EDT, Height Start Date: 08/16/22 Status: Ordered capsaicin 0.075% topical cream See Instructions, APPLY TO AFFECTED AREA TWICE A DAY, # 57 Gm, 4 Refills, Maintenance, 08/24/22 14:16:00 EDT, [facility]/pharmacy #[id number], 30, APPLY TO AFFECTED AREA TWICE [...] tablet, 11 Refills, Maintenance, 07/09/22 10:30:00 EDT, [facility]/pharmacy #[id number], 30, 1 tablet By Mouth Daily,Instr:INSTR:TAKE IT 2 HOURS SEPARATE FROM ORLISTAT ([place]), 157... Start Date: 07/09/22 Status: Ordered diclofenac 1% topical gel See Instructions, APPLY TOPICALLY 4 TIMES A DAY NOT TO EXCEED 16 GRAMS/DAY/SINGLE JOINT OF LOWER EXTREMITIES, # 100 Gm, 1 Refills, Maintenance, 12/14/22 6:14:00 EDT, [facility]/pharmacy #[id number], 30, APPLY TOPICALLY 4 TIMES A DAY NOT TO EXCEED 16 GRAMS/DAY/SING... Start Date: 12/14/22 Status: Ordered docusate sodium 100 mg oral capsule See Instructions, TAKE 1 CAPSULE BY MOUTH TWICE A DAY NEEDED FOR CONSTIPATION, # 60 capsule, 5 Refills, Maintenance, 07/03/22 18:20:00 EDT, [facility]/pharmacy #[id number], Duplicate Rx. Original sent 07/03/22 with routing error. Re- sending to pharmacy, 157.5, cm... Start Date: 07/03/22 Status: Ordered docusate sodium 100 mg oral capsule 100 mg, 1, capsule, By Mouth, 2 times a day, PRN, # 60 capsule, Refills 5, Tot. Refills 5, Maintenance, as needed for constipation, 06/12/22 9:52:00 EDT, Route to Pharmacy Electronically, [facility]/pharmacy #[id number], Partial fill upon patient request if the pr... Start Date: 06/12/22 Status: Ordered esomeprazole 40 mg oral enteric coated capsule 1 capsule = 40 mg, By Mouth, Daily, # 90 capsule, 0 Refills, Maintenance, 12/24/22 15:20:00 EDT, [facility]/pharmacy #[id number], Partial fill upon patient request if [...] each, 0 Refills, Maintenance, 09/20/22 9:36:00 EDT, [facility], 30, INHALE 1 PUFF BY MOUTH TWICE A DAY, 157.5, cm, 09/05/22 16:22:00 EDT, Height Start Date: 09/20/22 Status: Ordered fluticasone 50 mcg/inh nasal spray See Instructions, SPRAY 1 SPRAY INTO EACH NOSTRIL EVERY DAY, # 16 mL, 5 Refills, Maintenance, 07/05/22 16:20:00 EDT, [facility], 30, SPRAY 1 SPRAY INTO EACH NOSTRIL [...] mL, 6 Refills, Maintenance, 11/26/22 14:55:00 EDT, [facility], Partial fill upon patie... Start Date: 11/26/22 Status: Ordered Lactaid 3000 units oral tablet 3 tablet = 9,000 units, By Mouth, 3 times a day with meals, # 120 tablet, 5 Refills, Maintenance, 08/17/22 9:03:00 EDT, Tablet, [facility]/pharmacy #[id number], Partial fill upon patient request if the prescription is for a schedule II opioid drug., 157.5, cm, .. Start Date: 08/17/22 Stop Date: 02/13/23 Status: Ordered Lantus Solostar Pen 100 units/mL subcutaneous solution See Instructions, Take 45 units in the AM and 45 units daily at bedtime. E11.9., # 30 mL, 9 Refills, Maintenance, 11/26/22 14:55:00 EDT, [facility], Partial fill upon patient [...] Gm, 11 Refills, Maintenance, 07/03/22 18:22:00 EDT, [id number], 30, Duplicate Rx. Original sent 07/03/22 [...] 4 Refills, Maintenance, 12/06/22 13:07:00 EDT, Tablet, [id number], Partial fill upon patient request if the prescription is for a schedule II opioid drug., 157.5, cm, 11/26/22 14:11:00... Start Date: 12/06/22 Stop Date: 05/05/23 Status: Ordered Bol[place]ar-3 Fish Oil 1000 mg oral capsule 1 capsule = 1,000 mg, By Mouth, Daily, # 90 capsule, 1 Refills, Maintenance, 08/01/22 10:17:00 EDT,[facility]/pharmacy #[id number], Partial fill upon patient request if the prescription is for a schedule II opioid drug., 157.5, cm, 08/01/22 9:27:00 EDT, Height Start Date: 08/01/22 Status: Ordered omeprazole 20 mg oral delayed release tablet 1 tablet = 20 mg, By Mouth, 2 times a day, do not crush or chew, # 60 tablet, 2 Refills, Maintenance, 06/14/22 16:40:00 EDT, EC Tablet, [facility]/pharmacy #[id number], Partial fill upon patient request if the prescription is for a schedule II opioid drug., 157.5,... Start Date: 06/14/22 Status: Ordered oxyCODONE 10 mg oral tablet TAKE 1/2 TAB EVERY 12 HOURS NEEDED FOR SEVERE NECK/LOW BACK PAIN. DO NOT FILL UNTIL 05/01/21 Start Date: 06/02/21 Status: Ordered Pen [place], 31 G x 8 mm BD Ultra [...] 12/06/22 13:08:00 EDT, Route to Pharmacy Electronically, [facility]/pharmacy #[id number], Partial fill upon patient request if the prescription is for a schedule II opi... Start Date: 12/06/22 Stop Date: 05/05/23 Status: Ordered kennel attendant grabber tool kennel attendant grabber tool, See Instructions, # 1 each, Refills 0, Tot. Refills 0, Maintenance, please dispense one kennel attendant grabber tool, ICD 10 M54.6, length of [...] 6 Refills, Maintenance, 06/26/22 10:14:00 EDT, Tablet, [facility], 157.5, cm, 06/21/22 8:43:00 EDT, Height Start Date: 06/26/22 Stop Date: 01/22/23 Status: Ordered Trulicity Pen 4.5 mg/0.5 mL subcutaneous solution See Instructions, INJECT 4.5 MG SUBCUTANEOUSLY ONCE A WEEK, # 2 mL, 5 Refills, Maintenance, 11/21/22 8:33:00 EDT, [facility], 157.5, cm, 11/16/22 13:50:00 EDT, Height Start Date: 11/21/22 Status: Ordered valACYclovir 500 mg oral tablet 1, tablet, By Mouth, 2 times a day, PRN, # 6 tablet, Refills 1, Tot. Refills 1, Maintenance, NEEDED FOR OUTBREAKS, 12/14/22 6:14:00 EDT, Route to Pharmacy Electronically, 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 No wall motion abnormalities, Does [...] Name: Rose Mary FISCHER, Sergo Cole Position: [facility] Physician - Primary Care Member Role: PCP Address: Address: [address] [place] [address]- Name: Lizbeth Collins [place] Position: [facility] RN Member Role: Primary Care Nurse Care Team Related Persons Name: LB HENLEY Address: home [address] [address] Name: LB HENLEY Address: home [address] [place] [address] Name: IMLENA CUBA Address: home [address] [place] [address]
--- OUTSIDE RECORDS SUMMARY | 2024-01-23 14:26 | XMS_ITS | Continuity of Care Document ---
Author Organization [facility] Address [address] [place] [address]- Care Team Providers Care Can Sterilizer Name Role Phone Sergo Bazzi MD Primary Care Physician Encounter [facility] Date(s): 07/25/23 - 08/24/23 [facility] [address], [place] [address] Allergies, Adverse Reactions, Alerts Substance Reaction Severity Status morphine ITCH DIARRHEA Active cortisone Active Neurontin mental status changes Active Latex powder eats up skin Active trazodone DEPRESSION Active Motrin eat lining of stomach Active Naprosyn gi upset Active CeleBREX gi upset Active Ultram nausea, vomit Active Vioxx heart [...] 8 01/21/08 Given 1Result Comment: [01/22/2017] [facility] [id number] 2Admin Note: vis given dated 10/24/12 3Admin [...] 1 Refills, Acute, 219:52:00 EDT, [facility], 157.48, cm, 10/11/20 9:39:00 EDT, Height Start [...] Date: 03/03/21 Stop Date: 02/26/22 Status: Ordered Czzup-Bakdwd-Oxjx 300 mg oral capsule 1 capsule, By Mouth, 2 times a day, NOT COVERED., # 60 capsule, 11 Refills, [facility], 157.48, cm, 01/27/21 9:30:00 EDT, Height Start Date: 01/30/21 Status: Ordered ammonium lactate 12% topical cream 1 application, Topically, 2 times a day, # 385 Gm, 1 Refills, Maintenance, 12/22/22 14:16:00 EDT, Cream, [facility]/pharmacy #[id number], Partial fill upon patient request if the prescription is for a schedule IIopioid drug., 1 application Topically 2 times a day... Start Date: 12/22/22 Stop Date: 02/20/23 Status: Ordered atorvastatin 80 mg oral tablet 1 tablet, By Mouth, Daily, INSTR:REPLACES SIMVASTATIN, # 90 tablet, 1 Refills, Maintenance, 05/22/23 12:07:00 EST, [facility], 157, cm, 05/06/23 14:23:00 EST, Height, 88.3, kg, 04/16/23 11:33:00EST, Dry Weight Start Date: 05/22/23 Status: Ordered BD Single Use Swab 70% topical pad See Instructions, TO CLEANS BEFORE INJECTIONS 5 X A DAY., # 150 Unknown, 11 Refills, Maintenance, 08/16/22 10:15:00 EDT, [facility], 30, TO CLEANS BEFORE INJECTIONS 5 X A DAY., 157.5, cm, 08/01/22 9:27:00 EDT, Height Start Date: 08/16/22 Status: Ordered busPIRone 5 mg oral tablet 5 mg, 1, tablet, By Mouth, 3 times a day, # 90 tablet, Refills 4, Tot. Refills 4, Maintenance, 09/27/23 7:27:00 EDT, Route to Pharmacy Electronically, [facility]/pharmacy #[id number], Partial fill upon patient request if the prescription is for a schedule II opioi... Start Date: 09/27/23 Stop Date: 02/24/24 Status: Ordered busPIRone 5 mg oral tablet 5 mg, 1, tablet, By Mouth, 2 times a day, for 30 days, # 60 tablet, Refills 4, Tot. Refills 4, HardStop 09/27/23 7:27:00 EDT, 04/30/23 7:27:00 EST, Route to Pharmacy Electronically, [facility]/pharmacy #[id number], Partial fill upon patient request if the prescri... Start Date: 04/30/23 Stop Date: 09/27/23 Status: Ordered capsaicin 0.075% topical cream See Instructions, APPLY TO AFFECTED AREA TWICE A DAY, # 57 Gm, 4 Refills, Maintenance, 04/11/23 10:18:00 EST, [facility], 30, APPLY TO AFFECTED AREA TWICE A [...] Refills, Maintenance, 07/02/23 18:31:00 EDT, [facility], 90, TAKE 1 TABLET BY MOUTH DAILY [...] 08/31/23 16:26:00 EDT, Route to Pharmacy Electronically, [facility]/pharmacy #[id number], Partial fill... Start Date: 08/31/23 Stop Date: 01/28/24 Status: Ordered diazepam 5 mg oral tablet 5 mg, 1, tablet, By Mouth, 2 times a day, for 30 days, TAKE 1 TABLET BY MOUTH TWICE A DAY., # 60 tablet, Refills 1, Tot. Refills 1, Acute 08/31/23 16:26:00 EDT, 07/02/23 16:26:00 EDT, Route to Pharmacy Electronically, [facility]/pharmacy #[id number], Partial fill... Start Date: 07/02/23 Stop Date: 08/31/23 Status: Ordered diclofenac 1% topical gel See Instructions, APPLY TOPICALLY 4 TIMES A DAY NOT TO EXCEED 16 GRAMS/DAY/SINGLE JOINT OF LOWER EXTREMITIES, # 100 Gm, 1 Refills, Maintenance, 12/14/22 6:14:00 EDT, [facility]/pharmacy #[id number], 30, APPLY TOPICALLY 4 TIMES A [...] capsule, 5 Refills, Maintenance, 07/03/22 18:20:00 EDT, [facility]/pharmacy #[id number], Duplicate Rx. Original sent 07/03/22 with routing error. Re- sending to pharmacy, 157.5, cm... Start Date: 07/03/22 Status: Ordered esomeprazole 40 mg oral enteric coated capsule 1 capsule = 40 mg, By Mouth, Daily, # 90 capsule, 1 Refills, Maintenance, 03/07/23 13:32:00 EST, [facility]/pharmacy #[id number], Partial fill upon patient request if [...] Refills, Maintenance, 09/20/22 9:36:00 EDT, [facility], 30, INHALE 1 PUFF BY MOUTH TWICE A DAY, 157.5, cm, 09/05/22 16:22:00 EDT, Height Start Date: 09/20/22 Status: Ordered fluticasone 50 mcg/inh nasal spray See Instructions, SPRAY 1 SPRAY INTO EACH NOSTRIL EVERY DAY, # 16 mL, 5 Refills, Maintenance, 07/05/22 16:20:00 EDT, [facility], 30, SPRAY 1 SPRAY INTO EACH NOSTRIL [...] tablet, 4 Refills, Maintenance, 03/11/23 15:50:00 EST, [facility], 157.5, cm, 02/19/23 9:20:00 EST, Height Start [...] mL, 6 Refills, Maintenance, 07/24/23 13:20:00 EDT, [facility], Partial fill upon patient request if the prescription is for a schedule II opioid drug., 157, cm, 07/24/23 12:52:00... Start Date: 07/24/23 Status: Ordered hydrOXYzine hydrochloride 25 mg oral tablet 1 tablet = 25 mg, By Mouth, 2 times a day, as needed for anxiety, # 60 tablet, 4 Refills, Soft Stop, 07/10/23 11:33:00 EDT, Tablet, [facility]/pharmacy #[id number], Partial fill upon patient request if the prescription is for a schedule II opioid drug., 157, cm, 0... Start Date: 07/10/23 Stop Date: 12/07/23 Status: Ordered lactase 3000 u oral tablet 3 tablet, By Mouth, 3 times a day with meals, X30 DAYS., # 120 tablet, 5 Refills, Maintenance, 04/25/23 15:25:00 EST, [facility], 157, cm, 04/17/23 7:57:00 EST, Height, 88.3, kg, 04/16/23 11:33:00 EST, Dry Weight Start Date: 04/25/23 Status: Ordered Lantus Solostar Pen 100 units/mL subcutaneous solution See Instructions, Take 45 units in the AM and 45 units daily at bedtime. E11.9., # 30 mL, 9 Refills, Maintenance, 07/24/23 13:18:00 EDT, [facility], Partial fill upon patient requestif the prescription is for a schedule II opioid lucas... Start Date: 07/24/23 Status: Ordered levothyroxine 0.1 mg oral tablet 1 tablet = 100 mcg, By Mouth, Daily, # 30 tablet, 11 Refills, Maintenance, 07/25/23 8:52:00 EDT, [facility]/pharmacy #[id number], stop the 112mcg dose, 157, cm, 07/24/23 12:52:00 EDT, Height, 84, kg, 07/24/23 12:52:00 EDT, Dry Weight Start Date: 07/25/23 Stop Date: 07/19/24 Status: Ordered lidocaine 5% topical ointment See Instructions, APPLY TO AFFECTED AREA 3 TIMES A DAY, # 35.44 Gm, 11 Refills, Maintenance, 02/28/22 8:51:00 EST, [facility]/pharmacy #[id number], 30, APPLY TO AFFECTED AREA 3 TIMES A DAY, 157.5, cm, 02/21/22 14:36:00 EST, Height Start Date: 02/28/22 Status: Ordered lidocaine 5% topical ointment See Instructions, APPLY TO AFFECTED AREA 3 TIMES A DAY, # 35.44 Gm, 11 Refills, Maintenance, 07/03/22 18:22:00 EDT, [facility]/pharmacy #[id number], 30, Duplicate Rx. Original sent 07/03/22 with routing error. Re-sending to pharmacy, APPLY TO AFFECTED AREA 3 TIMES A... Start Date: 07/03/22 Status: Ordered losartan 50 mg oral tablet See Instructions, TAKE 1 TABLET BY MOUTH EVERY DAY, # 90 tablet, 1 Refills, Maintenance, 03/11/23 15:50:00 EST, [facility], 157.5, cm, 02/19/23 9:20:00 EST, Height Start Date: 03/11/23 Status: Ordered Lyrica 25 mg oral capsule See Instructions, 1 capsule By Mouth 1 time daily at bedtime. E11.9, # 30 each, 2 Refills, Maintenance, 08/08/23 11:19:00 EDT, Capsule, [facility]/pharmacy #[id number], Partial fill upon patient request if [...] EST, Height Start Date: 02/22/23 Status: Ordered Rawlings-3 Fish Oil 1000 mg oral capsule 1 capsule = 1,000 mg, By Mouth, Daily, # 90 capsule, 1 Refills, Maintenance, 08/01/22 10:17:00 EDT,[facility]/pharmacy #[id number], Partial fill upon patient request if [...] tablet, 2 Refills, Maintenance, 07/03/23 14:40:00 EDT, [facility], 157, cm, 06/24/23 14:54:00 EDT, Height, 88.3, [...] mL, 11 Refills, Maintenance, 08/23/23 11:17:00 EDT, [facility], Partial fill upon patient request if... Start Date: 08/23/23 Status: Ordered Pen [place], 31 G x 8 mm BD Ultra [...] 07/09/23 9:37:00 EDT, Route to Pharmacy Electronically, [facility]/pharmacy #[id number], Partial fill upon patient request if the prescription is for a schedule II opio... Start Date: 07/09/23 Stop Date: 12/06/23 Status: Ordered restaurant culinary manager grabber tool restaurant culinary manager grabber tool, See Instructions, # 1 each, Refills 0, Tot. 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 *Briana Garces, Rn Forensic, ICP [phone] Confirmed Active PTSD (post-traumatic stress disorder) Confirmed [...] Team Personnel Name: Sergo Bazzi MD Position: [facility] Physician - Primary Care Member Role: PCP Address: Address: [address] [place] [address]- Name: Lizbeth Collins [place] Position: [facility] Office Staff Member Role: Primary Care Nurse Care Team Related Persons Name: LB HENLEY Address: home [address] [address] Name: LB HENLEY Address: [address] [place] [address] Name: MILENA CUBA Address: home [address] [place] [address] [address] [place] [address]
--- OUTSIDE RECORDS SUMMARY | 2024-01-23 14:26 | XMS_ITS | Continuity of Care Document ---
Author Organization [facility] Address [address] [place] [address]- Care Team Providers Care Dna Sequencing Associate Name Role Phone Rose Mary FISCHER, Sergo Cole Primary Care Physician Encounter [facility] Date(s): 01/20/22 - 02/19/22 [facility] [address] [place] [address]- Attending Physician: Broderick Washburn Admitting Physician: AdmBroderick enriquez Referring Physician: AdmtrBroderick Allergies, Adverse Reactions, Alerts Substance Reaction Severity Status morphine ITCH DIARRHEA Active Vioxx heart problems Active trazodone DEPRESSION Active cortisone Active Motrin eat lining of stomach Active Naprosyn gi upset Active CeleBREX gi upset Active Neurontin mental status changes Active Ultram nausea, vomit Active Latex powder [...] [facility] [id number] 2Admin Note: vis given dated 10/24/12 3Admin Note: vis given dated 10/01/11 4Admin Note: vis 5Admin Note: vis 6Admin Note: vis given: 10/27/2006 7Admin Note: vis given : 10/10/2005 8Admin Note: vis given 2007- Medications acetaminophen 500 mg oral tablet 2 tablet, By Mouth, 4 times a day, PRN NEEDED FOR PAIN, # 100 tablet, 1 Refills, Acute, 219:52:00 EDT, [facility], 157.48, cm, 10/11/20 9:39:00 EDT, Height Start Date: 10/26/20 Status: Ordered Alcohol Pads See Instructions, # 200 each, Refills 11, Tot. Refills 11, Maintenance, To cleans before injections5 x a day., 03/03/21 9:18:00 EST, E11.65, Compound, 157.48, cm, 03/01/21 15:54:00 EST, Height Start Date: 03/03/21 Stop Date: 02/26/22 Status: Ordered Anhtk-Qzdzmu-Lvqh 300 mg oral capsule 1 capsule, By Mouth, 2 times a day, NOT COVERED., # 60 capsule, 11 Refills, [facility], 157.48, cm, 01/27/21 9:30:00 EDT, Height Start Date: 01/30/21 Status: Ordered ammonium lactate 12% topical cream 1 application, Topically, 2 times a day, # 385 Gm, 5 Refills, Maintenance, 09/08/21 9:35:00 EDT, Cream, [facility]/pharmacy #[id number], Partial fill upon patient request if the [...] tablet, 11 Refills, Maintenance, 08/19/20 16:26:00 EDT, [facility] 125[facility], 30, TAKE 1 TABLET BY MOUTH DAILY. [...] extremities, # 100 Gm, 0 Refills, Maintenance, 01/29/22 8:51:00 EDT, Gel, [id number], 157.5, cm, 01/20/22 13:38:00 EDT, Height Start Date: 01/29/22 Stop Date: 02/28/22 Status: Ordered docusate sodium 100 mg oral capsule 100 mg, 1, capsule, By Mouth, 2 times a day, PRN, # 60 capsule, Refills 5, Tot. Refills 5, Maintenance, as needed for constipation, 11/10/21 9:17:00 EDT, [id number], Partial fill upon patient request if [...] 16 mL, 5 Refills, 12/29/21 15:10:00 EDT,[facility]/pharmacy #[id number], USE 1 SPRAY IN EACH NOSTRIL EVERY DAY, 157.5, cm, 11/29/21 15:59:00 EDT, Height Start Date: 12/29/21 Status: Ordered Freestyle Lancets See Instructions, # 200 each, Refills 5, Tot. Refills 5, Maintenance, use 4 X daily as directed forType 2 Diabetes Mellitus, 01/31/22 11:33:00 EDT, Supply, 157.5, cm, 01/20/22 13:38:00 EDT, Height Start Date: 01/31/22 Stop Date: 07/30/22 Status: Ordered Lantus Solostar Pen 100 units/mL subcutaneous solution See Instructions, Take 80 units via Subcutaneous Infusion Daily at bedtime. E11.9., # 30 mL, 9 Refills, Maintenance, 08/24/21 9:25:00 EDT, [facility], Partial fill upon patient request if the prescription is for a schedule II opioid d... Start Date: 08/24/21 Status: Ordered Lantus Solostar Pen 100 units/mL subcutaneous solution See Instructions, Decreased to 60U once a day as of 12/29/19, # 30 mL, 9 Refills, Maintenance, 09/20/20 15:10:00 EDT, [facility], NEEDS 30 ML FOR 30 DAY SUPPLY E11.9, 157.48, cm, 05/31/20 9:41:00 EST, Height Start Date: 09/20/20 Status: Ordered lidocaine 5% topical ointment See Instructions, APPLY TO AFFECTED AREA 3 TIMES A DAY, # 35.44 Gm, 11 Refills, Physician Stop 02/28/22 8:51:00 EST, 01/29/22 8:51:00 EDT, [facility]/pharmacy #[id number], 30, APPLY TO AFFECTED AREA 3 TIMES A DAY, 157.5, cm, 01/20/22 13:38:00 EDT, Height Start Date: 01/29/22 Stop Date: 02/28/22 Status: Ordered losartan 50 mg oral tablet 1 tablet, By Mouth, Daily, # 30 tablet, 5 Refills, 12/08/21 16:06:00 EDT, [facility]/pharmacy #[id number], 157.5, cm, 11/29/21 15:59:00 EDT, Height Start Date: 12/08/21 Status: Ordered Lyrica 25 mg oral capsule See Instructions, 1 capsule By Mouth 1 time daily at bedtime. E11.9, # 30 each, 5 Refills, Maintenance, 09/18/21 12:21:00 EDT, Capsule, [facility]/pharmacy #[id number], Partial fill upon patient [...] chew, # 60 tablet, 1 Refills, Maintenance, 01/29/22 8:52:00 EDT, EC Tablet, [facility]/pharmacy #[id number], Partial fill upon patient request if the prescription is for a schedule II opioid drug., 157.5,... Start Date: 01/29/22 Status: Ordered oxyCODONE 10 mg oral tablet [...] 11:08:00 EST, 01/09/22 11:08:00 EDT, Chew Tablet, [facility]/pharmacy #[id number], Partial fill upon patient [...] Stop 09/16/22 11:02:00 EDT, 01/19/22 11:02:00 EDT, [facility]/pharmacy #[id number], 157.5, cm, 01/09/22 10:18:00 EDT, Height Start Date: 01/19/22 Stop Date: 09/16/22 Status: Ordered Topamax 25 mg oral tablet 3 tablet = 75 mg, By Mouth, Daily at bedtime, # 90 tablet, 6 Refills, Maintenance, 01/19/22 10:34:00 EDT, Tablet, [facility]/pharmacy #[id number], 157.5, cm, 01/09/22 10:18:00 EDT, Height Start Date: 01/19/22 Stop Date: 08/17/22 Status: Ordered Trulicity Pen 3 mg/0.5 mL subcutaneous solution See Instructions, INJECT 0.5ML SUBCUTANEOUSLY EVERY WEEK, ROTATE INJECTION SITES, # 2 mL, 5 Refills, 01/23/22 16:33:00 EDT, [facility], 157.5, cm, 01/20/22 13:38:00 EDT, Height Start Date: 01/23/22 Status: Ordered Vascepa 1 g oral capsule [...] 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 No wall motion abnormalities, Does [...] Never smoker entered on: 11/10/13 Sex Female EKG study * Event Display: EKG Authored Date: Patient Care team information Care Team Personnel Name: Sergo Bazzi MD Position: [facility] Primary Care Physician Member Role: PCP Address: Address: [address] [place] [address] [place] [address]- Care Team Related Persons Name: LB HENLEY Address: home [address] [place] [id number] Name: LB HENLEY Address: [address] [place] [address] Name: MILENA CUBA Address: home [address] [place] [address] [address] [place] [address]
--- OUTSIDE RECORDS SUMMARY | 2024-01-23 14:26 | XMS_ITS | Continuity of Care Document ---
Author Organization [facility] Address [address] [place] [address]- Care Team Providers Care Geological Survey Field Assistant Name Role Phone Rose Mary FISCHER, Sergo Cole Primary Care Physician Encounter [facility] [place] [facility] R [id number] Date(s): 04/10/23 - 04/17/23 [facility] [address] [place], [place] [address] Attending Physician: Chadwick FISCHER, Asmita Allergies, [...] Given 1Result Comment: [01/22/2017] [facility] [id number] 2Admin Note: vis given dated 10/24/12 3Admin [...] 100 tablet, 1 Refills, Acute, 219:52:00 EDT, [facility], 157.48, cm, 10/11/20 9:39:00 EDT, Height Start Date: 10/26/20 Status: Ordered Alcohol Pads See Instructions, # 200 each, Refills 11, Tot. Refills 11, Maintenance, To cleans before injections5 x a day., 03/03/21 9:18:00 EST, E11.65, Compound, 157.48, cm, 03/01/21 15:54:00 EST, Height Start Date: 03/03/21 Stop Date: 02/26/22 Status: Ordered Fbish-Qybttj-Ctbv 300 mg oral capsule 1 capsule, By Mouth, 2 times a day, NOT COVERED., # 60 capsule, 11 Refills, [facility], 157.48, cm, 01/27/21 9:30:00 EDT, Height Start Date: 01/30/21 Status: Ordered ammonium lactate 12% topical cream 1 application, Topically, 2 times a day, # 385 Gm, 1 Refills, Maintenance, 12/22/22 14:16:00 EDT, Cream, [facility]/pharmacy #[id number], Partial fill upon patient request if the prescription is for a schedule IIopioid drug., 1 application Topically 2 times a day... Start Date: 12/22/22 Stop Date: 02/20/23 Status: Ordered atorvastatin 80 mg oral tablet 1 tablet = 80 mg, By Mouth, Daily, replaces Simvastatin, # 90 tablet, 1 Refills, Maintenance, 11/19/23 14:22:00 EDT, Tablet, [facility]/pharmacy #[id number], replaces simvastatin, 157.5, cm, 11/26/22 14:11:00 EDT, Height Start Date: 11/19/23 Stop Date: 05/17/24 Status: Ordered BD Single Use Swab 70% topical pad See Instructions, TO CLEANS BEFORE INJECTIONS 5 X A DAY., # 150 Unknown, 11 Refills, Maintenance, 08/16/22 10:15:00 EDT, [facility], 30, TO CLEANS BEFORE INJECTIONS 5 X A DAY., 157.5, cm, 08/01/22 9:27:00 EDT, Height Start Date: 08/16/22 Status: Ordered capsaicin 0.075% topical cream See Instructions, APPLY TO AFFECTED AREA TWICE A DAY, # 57 Gm, 4 Refills, Maintenance, 04/11/23 10:18:00 EST, [facility] ST[facility]507, 30, APPLY TO AFFECTED AREA TWICE A [...] 11 Refills, Maintenance, 07/09/22 10:30:00 EDT, [facility]/pharmacy #[id number], 30, 1 tablet By Mouth Daily,Instr:INSTR:TAKE [...] 1 Refills, Maintenance, 12/14/22 6:14:00 EDT, [facility]/pharmacy #[id number], 30, APPLY TOPICALLY 4 TIMES A DAY NOT TO EXCEED 16 GRAMS/DAY/SING... Start Date: 12/14/22 Status: Ordered docusate sodium 100 mg oral capsule See Instructions, TAKE 1 CAPSULE BY MOUTH TWICE A DAY NEEDED FOR CONSTIPATION, # 60 capsule, 5 Refills, Maintenance, 07/03/22 18:20:00 EDT, [facility]/pharmacy #[id number], Duplicate Rx. Original sent 07/03/22 with routing error. Re- sending to pharmacy, 157.5, cm... Start Date: 07/03/22 Status: Ordered esomeprazole 40 mg oral enteric coated capsule 1 capsule = 40 mg, By Mouth, Daily, # 90 capsule, 1 Refills, Maintenance, 03/07/23 13:32:00 EST, [facility]/pharmacy #[id number], Partial fill upon patient request if [...] each, 0 Refills, Maintenance, 09/20/22 9:36:00 EDT, [facility] ST[facility] 72400, 30, INHALE 1 PUFF BY MOUTH TWICE A DAY, 157.5, cm, 09/05/22 16:22:00 EDT, Height Start Date: 09/20/22 Status: Ordered fluticasone 50 mcg/inh nasal spray See Instructions, SPRAY 1 SPRAY INTO EACH NOSTRIL EVERY DAY, # 16 mL, 5 Refills, Maintenance, 07/05/22 16:20:00 EDT, [facility] ST[facility] 33279, 30, SPRAY 1 SPRAY INTO EACH NOSTRIL [...] tablet, 4 Refills, Maintenance, 03/11/23 15:50:00 EST, [facility], 157.5, cm, 02/19/23 9:20:00 EST, Height Start [...] mL, 6 Refills, Maintenance, 11/26/22 14:55:00 EDT, [facility], Partial fill upon patie... Start Date: 11/26/22 Status: Ordered Lactaid 3000 units oral tablet 3 tablet = 9,000 units, By Mouth, 3 times a day with meals, # 120 tablet, 5 Refills, Maintenance, 08/17/22 9:03:00 EDT, Tablet, [facility]/pharmacy #[id number], Partial fill upon patient request if the prescription is for a schedule II opioid drug., 157.5, cm, ... Start Date: 08/17/22 Stop Date: 02/13/23 Status: Ordered Lantus Solostar Pen 100 units/mL subcutaneous solution See Instructions, Take 45 units in the AM and 45 units daily at bedtime. E11.9., # 30 mL, 9 Refills, Maintenance, 11/26/22 14:55:00 EDT, [facility], Partial fill upon patient requestif the prescription is for a schedule II opioid lucas... Start Date: 11/26/22 Status: Ordered levothyroxine 0.137 mg oral tablet 1 tablet = 137 mcg, By Mouth, Daily, # 30 tablet, 2 Refills, Maintenance, 04/17/23 7:46:00 EST, Tablet, [facility]/pharmacy #[id number], Partial fill upon patient request if the prescription is for a schedule II opioid drug., 157, cm, 04/16/23 11:33:00 EST, Height... Start Date: 04/17/23 Status: Ordered lidocaine 5% topical ointment See Instructions, APPLY TO AFFECTED AREA 3 TIMES A DAY, # 35.44 Gm, 11 Refills, Maintenance, 02/28/22 8:51:00 EST, [facility]/pharmacy #[id number], 30, APPLY TO AFFECTED AREA 3 TIMES A DAY, 157.5, cm, 02/21/22 14:36:00 EST, Height Start Date: 02/28/22 Status: Ordered lidocaine 5% topical ointment See Instructions, APPLY TO AFFECTED AREA 3 TIMES A DAY, # 35.44 Gm, 11 Refills, Maintenance, 07/03/22 18:22:00 EDT, [facility]/pharmacy #[id number], 30, Duplicate Rx. Original sent 07/03/22 with routing error. Re-sending to pharmacy, APPLY TO AFFECTED AREA 3 TIMES A... Start Date: 07/03/22 Status: Ordered losartan 50 mg oral tablet See Instructions, TAKE 1 TABLET BY MOUTH EVERY DAY, # 90 tablet, 1 Refills, Maintenance, 03/11/23 15:50:00 EST, [facility] STORE 92510, 157.5, cm, 02/19/23 9:20:00 EST, Height Start [...] Refills, Maintenance, 12/06/22 13:07:00 EDT, Tablet, [facility]/pharmacy #[id number], Partial fill upon patient request if [...] EST, Height Start Date: 02/22/23 Status: Ordered [place]-3 Fish Oil 1000 mg oral capsule 1 [...] Refills, Maintenance, 06/14/22 16:40:00 EDT, EC Tablet, [facility]/pharmacy #[id number], Partial fill upon patient request if the prescription is for a schedule II opioid drug., 157.5,... Start Date: 06/14/22 Status: Ordered oxyCODONE 10 mg oral tablet TAKE 1/2 TAB EVERY 12 HOURS NEEDED FOR SEVERE NECK/LOW BACK PAIN. DO NOT FILL UNTIL 05/01/21 Start Date: 06/02/21 Status: Ordered Pen Walters, 31 G x 8 mm BD Ultra [...] 12/06/22 13:08:00 EDT, [id number] Partial fill upon patient request if the prescription is for a schedule II opi... Start Date: 12/06/22 Stop Date: 05/05/23 Status: Ordered burn crew member grabber tool burn crew member grabber tool, See Instructions, # 1 each, Refills 0, Tot. Refills 0, Maintenance, please dispense one burn crew member grabber tool, ICD 10 M54.6, length of [...] tablet, 10 Refills, Maintenance, 01/17/23 8:54:00 EDT, [facility], 157.5, cm, 12/28/22 15:12:00 EDT, Height Start Date: 01/17/23 Status: Ordered Trulicity Pen 4.5 mg/0.5 mL subcutaneous solution See Instructions, INJECT 4.5 MG SUBCUTANEOUSLY ONCE A WEEK, # 2 mL, 5 Refills, Maintenance, 11/21/22 8:33:00 EDT, [facility], 157.5, cm, 11/16/22 13:50:00 EDT, Height Start Date: 11/21/22 Status: Ordered valACYclovir 500 mg oral tablet 1, tablet, By Mouth, 2 times a day, PRN, # 6 tablet, Refills 1, Maintenance, NEEDED FOR OUTBREAKS, 04/10/23 8:50:00 EST, Route to Pharmacy Electronically, [facility], 157.5, cm, 03/18/23 11:17:00 EST, Height Start Date: 04/10/23 Status: Ordered Vascepa 1 g oral capsule 2 capsule = 2 Gm, By Mouth, 2 times a day, # 360 capsule, 5 Refills, Maintenance, 05/03/20 15:59:00EST, Capsule, [facility]/pharmacy #[id number], 157.48, cm, 03/04/20 14:14:00 EST, Height Start Date: 05/03/20 Status: Ordered Ventolin HFA 108 mcg/inh inhalation aerosol with adapter 1 puffs, Inhalation, 4 times a day, PRN NEEDED FOR WHEEZING, # 18 each, 0 Refills, Maintenance, 09/17/22 15:25:00 EDT, [facility] 896[facility], 157.5, cm, 09/05/22 16:22:00 EDT, Height Start [...] 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 No wall motion abnormalities, Does [...] recent to oldest [Reference Range]: 1 Height 157.5 cm (04/10/23 2:12 PM) Weight 89.3 kg (04/10/23 2:12 PM) Body Mass Index [18.5-24.99 kg/m2] 36 kg /m2 *>HHI* (04/10/23 2:12 PM) Dry Weight 89.3 kg (04/10/23 2:12 PM) Weight Obtained Via Standing scale (04/10/23 2:12 PM) Social History Social History Type Response Smoking Status Never smoker entered on: 11/10/13 Sex Female Patient Care team information Care Team Personnel Name: Sergo Bazzi MD Position: [facility] Physician - Primary Care Member Role: PCP Address: Address: [address] [place] [address] [place] [address]- Name: Lizbeth Collins [place] Position: [facility] RN Member Role: Primary Care Nurse Care Team Related Persons Name: LB HENLEY Address: home [address] [place] [id number] Name: LB HENLEY Address: [address] [place] [address] Name: MILENA CUBA Address: home [address] [place] [address] [address] [place] [address]
--- OUTSIDE RECORDS SUMMARY | 2024-01-23 14:26 | XMS_ITS | Continuity of Care Document ---
Author Organization [facility] Address [address] [place] [address]- Care Team Providers Care Professional Skater Name Role Phone Rose Mary FISCHER, Sergo Cole Primary Care Physician [phone] Encounter [facility] Date(s): 04/09/19 - 04/19/19 [facility] [address] [place] [address]- [facility] Attending Physician: AdmBroderick enriquez Admitting Physician: Admtr, ArItzel Referring Physician: Admtr, Ar8 Allergies, Adverse Reactions, [...] Given 1Result Comment: [01/22/2017] [facility] [id number] 2Admin Note: vis given dated 10/24/12 3Admin [...] Refills, Maintenance, Tablet, Route to Pharmacy Electronically, [id number], [facility]/pharmacy #[id number], replaces simvastatin Start Date: 06/06/18 Stop [...] SPRAY IN EACH NOSTRIL TWICE A DAY, [facility]/pharmacy #[id number] Start Date: 12/15/18 Status: Ordered Freestyle [...] 10:40:57 EST Start Date: 03/13/19 Status: Ordered lactase 3000 u oral tablet [...] 06/06/18 10:47:42 EST, Route to Pharmacy Electronically, [id number], [facility]/pharmacy #[id number] Start Date: 06/06/18 Stop Date: 06/01/19 Status: [...] request Start Date: 02/16/19 Status: Ordered Pen Aurora, 31 G x 8 mm BD Ultra [...] A DAY Start Date: 10/14/18 Status: Ordered Shower Chair See Instructions, # 1 each, Refills 0, Tot. Refills 0, Maintenance, to enable ADL's dx osteoarthritis, back pain, and muscle weakness M19.91, M54.5, M62.81, 03/13/19 9:51:18 EST, Compound Start Date: 03/13/19 Status: Ordered Topamax 25 mg oral tablet [...] r HSV(Confirmed) 5 02/20/10 Active Reflux(Confirmed) Active 62053 -EF 60-65%. No wall motion abnormalities, Does [...]
--- OUTSIDE RECORDS SUMMARY | 2024-01-23 14:26 | XMS_ITS | Continuity of Care Document ---
Author Organization [facility] Address [address] [place] [address]- Care Team Providers Care Technology Assistant Name Role Phone Rose Mary FISCHER, Sergo Cole Primary Care Physician [place] [facility] [place] 12/14/21 - 01/13/22 [facility] [address] [place], [place] [address] Allergies, Adverse Reactions, Alerts Substance Reaction [...] 8 01/21/08 Given 1Result Comment: [01/22/2017] [facility] [id number] 2Admin Note: vis given dated 10/24/12 3Admin Note: vis given dated 10/01/11 4Admin Note: vis 5Admin Note: vis 6Admin Note: vis given: 10/27/2006 7Admin Note: vis given : 10/10/2005 8Admin Note: vis given 2007- Medications acetaminophen 500 mg oral tablet 2 tablet, By Mouth, 4 times a day, PRN NEEDED FOR PAIN, # 100 tablet, 1 Refills, Acute, 219:52:00 EDT, [facility]227, 157.48, cm, 10/11/20 9:39:00 EDT, Height Start Date: 10/26/20 Status: Ordered Alcohol Pads See Instructions, # 200 each, Refills 11, Tot. Refills 11, Maintenance, To cleans before injections5 x a day., 03/03/21 9:18:00 EST, E11.65, Compound, 157.48, cm, 03/01/21 15:54:00 EST, Height Start Date: 03/03/21 Stop Date: 02/26/22 Status: Ordered Zaccf-Ykajmm-Psej 300 mg oral capsule 1 capsule, By Mouth, 2 times a day, NOT COVERED., # 60 capsule, 11 Refills, [facility], 157.48, cm, 01/27/21 9:30:00 EDT, Height Start Date: 01/30/21 Status: Ordered ammonium lactate 12% topical cream 1 application, Topically, 2 times a day, # 385 Gm, 5 Refills, Maintenance, 09/08/21 9:35:00 EDT, Cream, [facility]/pharmacy #[id number], Partial fill upon patient [...] 4 Refills, Maintenance, 08/26/22 14:22:00 EDT, Tablet, [facility]/pharmacy #[id number], replaces simvastatin, 157.5, cm, 11/29/21 15:59:00 EDT, Height Start Date: 08/26/22 Stop Date: 11/19/23 Status: Ordered Daily David oral tablet 1 tablet, By Mouth, Daily, INSTR:TAKE IT 2 HOURS SEPARATE FROM ORLISTAT ([place]), # 30 tablet, 11 Refills, Maintenance, 08/19/20 16:26:00 EDT, [facility] ST[facility] 87857, 30, TAKE 1 TABLET BY MOUTH DAILY. [...] 03/30/22 13:11:00 EST, 09/01/21 13:11:00 EDT, Gel, [facility]/pharmacy #[id number], 157.48, cm, 08/24/21 8:03:00 EDT,... Start Date: 09/01/21 Stop Date: 03/30/22 Status: Ordered diclofenac 1% topical gel 1 application, Topically, 4 times a day, not to exceed 16 grams/day/single joint of lower extremities, # 100 Gm, 0 Refills, Maintenance, 03/30/22 13:11:00 EST, Gel, [facility]/pharmacy #[id number], 157.5, cm, 11/29/21 15:59:00 EDT, Height Start Date: 03/30/22 Stop Date: 04/29/22 Status: Ordered docusate sodium 100 mg oral capsule 100 mg, 1, capsule, By Mouth, 2 times a day, PRN, # 60 capsule, Refills 5, Tot. Refills 5, Maintenance, as needed for constipation, 11/10/21 9:17:00 EDT, Route to Pharmacy Electronically, [facility]/pharmacy #[id number], Partial fill upon patient [...] # 16 mL, 5 Refills, 12/29/21 15:10:00 EDT,[facility]/pharmacy #[id number], USE 1 SPRAY IN EACH NOSTRIL EVERY DAY, 157.5, cm, 11/29/21 15:59:00 EDT, Height Start Date: 12/29/21 Status: Ordered Lantus Solostar Pen 100 units/mL subcutaneous solution See Instructions, Take 80 units via Subcutaneous Infusion Daily at bedtime. E11.9., # 30 mL, 9 Refills, Maintenance, 08/24/21 9:25:00 EDT, [facility], Partial fill upon patient request if the prescription is for a schedule II opioid d... Start Date: 08/24/21 Status: Ordered Lantus Solostar Pen 100 units/mL subcutaneous solution See Instructions, Decreased to 60U once a day as of 12/29/19, # 30 mL, 9 Refills, Maintenance, 09/20/20 15:10:00 EDT, [facility], NEEDS 30 ML FOR 30 DAY SUPPLY E11.9, 157.48, cm, 05/31/20 9:41:00 EST, Height Start Date: 09/20/20 Status: Ordered lidocaine 5% topical ointment See Instructions, APPLY TO AFFECTED AREA 3 TIMES A DAY, # 35.44 Gm, 11 Refills, [facility] 40626, 30, APPLY TO AFFECTED AREA 3 TIMES [...] 5 Refills, Maintenance, 09/18/21 12:21:00 EDT, Capsule, [facility]/pharmacy #[id number], Partial fill upon patient [...] tablet, 6 Refills, Maintenance, 11/16/21 8:12:00EDT, Tablet, [facility]/pharmacy #[id number], 157.5, cm, 11/07/21 10:51:00 EDT, Height Start Date: 11/16/21 Stop Date: 06/14/22 Status: Ordered Trulicity Pen 3 mg/0.5 mL subcutaneous solution See Instructions, INJECT 0.5ML SUBCUTANEOUSLY EVERY WEEK, ROTATE INJECTION SITES, # 2 mL, 5 Refills, 08/24/21 9:20:00 EDT, [facility], 157.48, cm, 08/24/21 8:03:00 EDT, Height Start Date: 08/24/21 Status: Ordered Vascepa 1 g oral capsule 2 capsule = 2 Gm, By Mouth, 2 times a day, # 360 capsule, 5 Refills, Maintenance, 05/03/20 15:59:00EST, Capsule, [facility]/pharmacy #[id number], 157.48, cm, 03/04/20 14:14:00 [...] 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 No wall motion abnormalities, Does [...] Rose Mary FISCHER, Sergo Cole Address: Address: [facility] [address] [facility] [place] [address]-
--- OUTSIDE RECORDS SUMMARY | 2024-01-23 14:26 | XMS_ITS | Continuity of Care Document ---
Author Organization [facility] Address [address] [place] [address]- Care Team Providers Care Journeyman Electrician Pv Installer Name Role Phone Rose Mary FISCHER, Sergo Cole Primary Care Physician [phone] Encounter [facility] [place] Date(s): 03/09/19 - 03/19/19 [facility] [address] [place] [address]- [facility] Attending Physician: Admtr, Ar8 Admitting Physician: Admtr, [...] Given 1Result Comment: [01/22/2017] [facility] [id number] 2Admin Note: vis given dated 10/24/12 3Admin [...] Refills, Maintenance, Tablet, Route to Pharmacy Electronically, [id number], [facility]/pharmacy #[id number], replaces simvastatin Start Date: [...] SPRAY IN EACH NOSTRIL TWICE A DAY, [facility]/pharmacy #[id number] Start Date: 12/15/18 Status: [...] 06/06/18 10:47:42 EST, Route to Pharmacy Electronically, [id number], [facility]/pharmacy #[id number] Start Date: 06/06/18 Stop Date: 06/01/19 [...] request Start Date: 02/16/19 Status: Ordered Pen Ada, 31 G x 8 mm BD Ultra [...] r HSV(Confirmed) 5 02/20/10 Active Reflux(Confirmed) Active 28629 -EF 60-65%. No wall motion abnormalities, Does [...]
--- OUTSIDE RECORDS SUMMARY | 2024-01-23 14:26 | XMS_ITS | Continuity of Care Document ---
Author Organization [facility] Address [address] [place] [address]- Care Team Providers Care Hoop Punch Operator Helper Name Role Phone Sergo Bazzi MD Primary Care Physician [place] [facility] [place]/21 [facility] [address] [place] [address]- Attending Physician: Marcos Yan MD Admitting Physician: [...] Given 1Result Comment: [01/22/2017] [facility] [id number] 2Admin Note: vis given dated 10/24/12 3Admin Note: vis given dated 10/01/11 4Admin Note: vis 5Admin Note: vis 6Admin Note: vis given: 10/27/2006 7Admin Note: vis given : 10/10/2005 8Admin Note: vis given 2007- Medications acetaminophen 500 mg oral tablet 2 tablet, By Mouth, 4 times a day, PRN NEEDED FOR PAIN, # 100 tablet, 1 Refills, Acute, 219:52:00 EDT, [facility], 157.48, cm, 10/11/20 9:39:00 EDT, Height Start Date: 10/26/20 Status: Ordered Alcohol Pads See Instructions, # 200 each, Refills 11, Tot. Refills 11, Maintenance, To cleans before injections5 x a day., 03/03/21 9:18:00 EST, E11.65, Compound, 157.48, cm, 03/01/21 15:54:00 EST, Height Start Date: 03/03/21 Stop Date: 02/26/22 Status: Ordered Skbbj-Dpjbvm-Omda 300 mg oral capsule 1 capsule, By Mouth, 2 times a day, NOT COVERED., # 60 capsule, 11 Refills, [facility]326, 157.48, cm, 01/27/21 9:30:00 EDT, Height Start Date: 01/30/21 Status: Ordered ammonium lactate 12% topical cream 1 application, Topically, 2 times a day, # 385 Gm, 5 Refills, Maintenance, 12/19/20 14:08:00 EDT, Cream, [facility]/pharmacy #[id number], Partial fill upon patient request if the prescription is for a schedule IIopioid drug., 1 application Topically 2 times a day... Start Date: 12/19/20 Stop Date: 06/17/21 Status: Ordered aspirin 81 mg oral delayed release tablet 1 tablet, By Mouth, Daily, # 30 tablet, 11 Refills, Maintenance, 06/21/20 17:44:00 EDT, [facility] 28030, 157.48, cm, 05/31/20 9:41:00 EST, Height Start Date: 06/21/20 Status: Ordered atorvastatin 80 mg oral tablet 1 tablet = 80 mg, By Mouth, Daily, replaces Simvastatin, # 90 tablet, 4 Refills, Maintenance, 06/02/21 14:22:00 EST, Tablet, [facility]/pharmacy #[id number], replaces simvastatin, 157.48, cm, 06/02/21 14:20:00 EST, Height Start Date: 06/02/21 Stop Date: 08/26/22 Status: Ordered capsaicin 0.075% topical cream See Instructions, APPLY TO AFFECTED AREA TWICE A DAY, # 57 Gm, 4 Refills, [facility], 30, APPLY TO AFFECTED AREA TWICE A DAY, 157.48, cm, 11/11/20 9:37:00 EDT, Height Start Date: 01/02/21 Status: Ordered Daily David oral tablet 1 tablet, By Mouth, Daily, INSTR:TAKE IT 2 HOURS SEPARATE FROM ORLISTAT ([place]), # 30 tablet, 11 Refills, Maintenance, 08/19/20 16:26:00 EDT, [facility], 30, TAKE 1 TABLET BY MOUTH DAILY. [...] EVERY DAY, # 16 mL, 5 Refills, [facility], 30, USE 1 SPRAY IN EACH NOSTRIL [...] 3, Maintenance, use up to check blood [id number] per day. 90 DAY SUPPLY, E11.9, 03/03/21 [...] mL, 3 Refills, Maintenance, 05/09/21 10:32:00 EST, [facility], Partial fill upon pat... Start Date: 05/09/21 Status: Ordered Lantus Solostar Pen 100 units/mL subcutaneous solution See Instructions, Decreased to 60U once a day as of 12/29/19, # 30 mL, 9 Refills, Maintenance, 09/20/20 15:10:00 EDT, [facility], NEEDS 30 ML FOR [...] 0 Refills, Maintenance, 12/19/20 14:08:00 EDT, Film, [facility]/pharmacy #[id number], Partial fill upon patient request if the prescription is for a schedule II opioid drug., 1 patch Topically Daily, 157.48, cm, 11/11/20 9:37:0... Start Date: 12/19/20 Status: Ordered losartan 50 mg oral tablet 1 tablet, By Mouth, Daily, # 30 tablet, 2 Refills, [facility] 47093, 157.48, cm, 05/05/21 9:51:00 EST, Height Start Date: 05/12/21 Status: Ordered mirtazapine 15 mg oral tablet 0 Refills, Maintenance, 06/02/21 14:25:00 EST, Partial fill upon patient request if the prescription is for a schedule II opioid drug. Start Date: 06/02/21 Status: Ordered omeprazole 20 mg oral enteric coated capsule 1 capsule, By Mouth, 2 times a day, # 60 capsule, 1 Refills, [facility] 19810, 157.48, cm, 06/02/21 14:20:00 EST, Height Start Date: 07/14/21 Status: Ordered oxyCODONE 10 mg oral tablet TAKE 1/2 TAB EVERY 12 HOURS NEEDED FOR SEVERE NECK/LOW BACK PAIN. DO NOT FILL UNTIL 05/01/21 Start Date: 06/02/21 Status: Ordered Pen [place], 31 G x 8 mm BD Ultra [...] OF 2, # 12 tablet, 7 Refills, [facility]0419, 157.48, cm, 05/23/21 13:08:00 EST, Height Start Date: 06/02/21 Status: Ordered tiZANidine 4 mg oral capsule 1 capsule, By Mouth, 3 times a day, # 90 capsule, 3 Refills, [facility] 42301, 157.48, cm, 05/23/21 13:08:00 EST, Height Start Date: 06/01/21 Status: Ordered Topamax 25 mg oral tablet 2 tablet = 50 mg, By Mouth, Daily at bedtime, # 60 tablet, 6 Refills, Maintenance, 04/21/20 13:35:00 EST, Tablet, [facility]/pharmacy #[id number], 157.48, cm, 03/04/20 14:14:00 EST, Height Start Date: 04/21/20 Stop Date: 11/17/20 Status: Ordered Trulicity Pen 1.5 mg/0.5 mL subcutaneous solution 0.5 mL = 1.5 mg, Subcutaneous Injection, Every Saturday, for 90 days, E11.9, # 7.5 mL, 3 Refills, Hard Stop 12/03/22 15:26:00 EDT, 12/08/21 15:26:00 EDT, Solution, [facility], E11.65, 157.48, cm, 03/04/20 14:14:00 EST, Height Start Date: 12/08/21 Stop Date: 12/03/22 Status: Ordered Trulicity Pen 3 mg/0.5 mL subcutaneous solution See Instructions, INJECT 0.5ML SUBCUTANEOUSLY EVERY WEEK, ROTATE INJECTION SITES, # 2 mL, 6 Refills, [facility], 157.48, cm, 06/02/21 14:20:00 EST, Height Start Date: 07/11/21 Status: Ordered Vascepa 1 g oral capsule 2 capsule = 2 Gm, By Mouth, 2 times a day, # 360 capsule, 5 Refills, Maintenance, 05/03/20 15:59:00EST, Capsule, [facility]/pharmacy #[id number], 157.48, cm, 03/04/20 14:14:00 [...] Active *Briana Garces, Care Coor dinator, ICP [phone](Confirmed) Active Reflux(Confirmed) Active Hepatic steatosis(Confirmed) Active 27244 -EF 60-65%. No wall motion abnormalities, Does [...]
--- OUTSIDE RECORDS SUMMARY | 2024-01-23 14:27 | XMS_ITS | Continuity of Care Document ---
Author Organization [facility] Address [address] [place] [address]- Care Team Providers Care Section Hand Name Role Phone Sergo Bazzi MD Primary Care Physician [phone] Encounter [facility] [place] Date(s): 03/29/23 - 04/28/23 [facility] [address] [place], [place] [address] Attending Physician: Admtr, [id number] Admitting Physician: Admtr, [...] 8 01/21/08 Given 1Result Comment: [01/22/2017] [facility] [id number] 2Admin Note: vis given dated 10/24/12 3Admin [...] 100 tablet, 1 Refills, Acute, 219:52:00 EDT, [facility] 25023, 157.48, cm, 10/11/20 9:39:00 EDT, Height Start Date: 10/26/20 Status: Ordered Alcohol Pads See Instructions, # 200 each, Refills 11, Tot. Refills 11, Maintenance, To cleans before injections5 x a day., 03/03/21 9:18:00 EST, E11.65, Compound, 157.48, cm, 03/01/21 15:54:00 EST, Height Start Date: 03/03/21 Stop Date: 02/26/22 Status: Ordered Ckmsv-Orjvzz-Oajc 300 mg oral capsule 1 capsule, By Mouth, 2 times a day, NOT COVERED., # 60 capsule, 11 Refills, [facility] 41245, 157.48, cm, 01/27/21 9:30:00 EDT, Height Start Date: 01/30/21 Status: Ordered ammonium lactate 12% topical cream 1 application, Topically, 2 times a day, # 385 Gm, 1 Refills, Maintenance, 12/22/22 14:16:00 EDT, Cream, [facility]/pharmacy #[id number], Partial fill upon patient request if the prescription is for a schedule IIopioid drug., 1 application Topically 2 times a day... Start Date: 12/22/22 Stop Date: 02/20/23 Status: Ordered atorvastatin 80 mg oral tablet 1 tablet = 80 mg, By Mouth, Daily, replaces Simvastatin, # 90 tablet, 1 Refills, Maintenance, 11/19/23 14:22:00 EDT, Tablet, [facility]/pharmacy #[id number], replaces simvastatin, 157.5, cm, 11/26/22 14:11:00 EDT, Height Start Date: 11/19/23 Stop Date: 05/17/24 Status: Ordered BD Single Use Swab 70% topical pad See Instructions, TO CLEANS BEFORE INJECTIONS 5 X A DAY., # 150 Unknown, 11 Refills, Maintenance, 08/16/22 10:15:00 EDT, [facility], 30, TO CLEANS BEFORE INJECTIONS 5 X A DAY., 157.5, cm, 08/01/22 9:27:00 EDT, Height Start Date: 08/16/22 Status: Ordered capsaicin 0.075% topical cream See Instructions, APPLY TO AFFECTED AREA TWICE A DAY, # 57 Gm, 4 Refills, Maintenance, 04/11/23 10:18:00 EST, [facility] 33099, 30, APPLY TO AFFECTED AREA TWICE A [...] 11 Refills, Maintenance, 07/09/22 10:30:00 EDT, [facility]/pharmacy #[id number], 30, 1 tablet By [...] 1 Refills, Maintenance, 12/14/22 6:14:00 EDT, [facility]/pharmacy #[id number], 30, APPLY TOPICALLY 4 TIMES A DAY NOT TO EXCEED 16 GRAMS/DAY/SING... Start Date: 12/14/22 Status: Ordered docusate sodium 100 mg oral capsule See Instructions, TAKE 1 CAPSULE BY MOUTH TWICE A DAY NEEDED FOR CONSTIPATION, # 60 capsule, 5 Refills, Maintenance, 07/03/22 18:20:00 EDT, [facility]/pharmacy #[id number], Duplicate Rx. Original sent 07/03/22 with routing error. Re- sending to pharmacy, 157.5, cm... Start Date: 07/03/22 Status: Ordered esomeprazole 40 mg oral enteric coated capsule 1 capsule = 40 mg, By Mouth, Daily, # 90 capsule, 1 Refills, Maintenance, 03/07/23 13:32:00 EST, [facility]/pharmacy #[id number], Partial fill upon [...] each, 0 Refills, Maintenance, 09/20/22 9:36:00 EDT, [facility] 20765, 30, INHALE 1 PUFF BY MOUTH TWICE A DAY, 157.5, cm, 09/05/22 16:22:00 EDT, Height Start Date: 09/20/22 Status: Ordered fluticasone 50 mcg/inh nasal spray See Instructions, SPRAY 1 SPRAY INTO EACH NOSTRIL EVERY DAY, # 16 mL, 5 Refills, Maintenance, 07/05/22 16:20:00 EDT, [facility] 91823, 30, SPRAY 1 SPRAY INTO EACH NOSTRIL [...] tablet, 4 Refills, Maintenance, 03/11/23 15:50:00 EST, [facility] 36884, 157.5, cm, 02/19/23 9:20:00 EST, Height Start [...] mL, 6 Refills, Maintenance, 11/26/22 14:55:00 EDT, [facility], Partial fill upon patie... Start Date: 11/26/22 Status: Ordered lactase 3000 u oral tablet 3 tablet, By Mouth, 3 times a day with meals, X30 DAYS., # 120 tablet, 5 Refills, Maintenance, 04/25/23 15:25:00 EST, [facility] 35065, 157, cm, 04/17/23 7:57:00 EST, Height, 88.3, kg, 04/16/23 11:33:00 EST, Dry Weight Start Date: 04/25/23 Status: Ordered Lantus Solostar Pen 100 units/mL subcutaneous solution See Instructions, Take 45 units in the AM and 45 units daily at bedtime. E11.9., # 30 mL, 9 Refills, Maintenance, 11/26/22 14:55:00 EDT, [facility], Partial fill upon patient requestif the prescription is for a schedule II opioid lucas... Start Date: 11/26/22 Status: Ordered levothyroxine 0.137 mg oral tablet 1 tablet = 137 mcg, By Mouth, Daily, # 30 tablet, 2 Refills, Maintenance, 04/17/23 7:46:00 EST, Tablet, [facility]/pharmacy #[id number], Partial fill upon patient request if the prescription is for a schedule II opioid drug., 157, cm, 04/16/23 11:33:00 EST, Height... Start Date: 04/17/23 Status: Ordered lidocaine 5% topical ointment See Instructions, APPLY TO AFFECTED AREA 3 TIMES A DAY, # 35.44 Gm, 11 Refills, Maintenance, 02/28/22 8:51:00 EST, [facility]/pharmacy #[id number], 30, APPLY TO AFFECTED AREA 3 TIMES A DAY, 157.5, cm, 02/21/22 14:36:00 EST, Height Start Date: 02/28/22 Status: Ordered lidocaine 5% topical ointment See Instructions, APPLY TO AFFECTED AREA 3 TIMES A DAY, # 35.44 Gm, 11 Refills, Maintenance, 07/03/22 18:22:00 EDT, [facility]/pharmacy #[id number], 30, Duplicate Rx. Original sent 07/03/22 with routing error. Re-sending to pharmacy, APPLY TO AFFECTED AREA 3 TIMES A... Start Date: 07/03/22 Status: Ordered losartan 50 mg oral tablet See Instructions, TAKE 1 TABLET BY MOUTH EVERY DAY, # 90 tablet, 1 Refills, Maintenance, 03/11/23 15:50:00 EST, [facility] 52590, 157.5, cm, 02/19/23 9:20:00 EST, Height Start Date: 03/11/23 Status: Ordered Lyrica 25 mg oral capsule See Instructions, 1 capsule By Mouth 1 time daily at bedtime. E11.9, # 30 each, 5 Refills, Maintenance, 01/21/23 15:40:00 EDT, Capsule, [facility]/pharmacy #[id number], Partial fill upon patient request if the prescription is for a schedule II opioid drug., 157.5,... Start Date: 01/21/23 Status: Ordered mirtazapine 15 mg oral tablet 1 tablet = 15 mg, By Mouth, Daily at bedtime, # 30 tablet, 4 Refills, Maintenance, 12/06/22 13:07:00 EDT, Tablet, [facility]/pharmacy #[id number], Partial fill upon patient request if the prescription is for a schedule II opioid drug., 157.5, cm, 11/26/22 14:11:00... Start Date: 12/06/22 Stop Date: 05/05/23 Status: Ordered Narcan 4 mg/0.1 mL nasal spray = 4 mg, Nares, Both, Once, # 2 each, 2 Refills, Soft Stop, 02/22/23 14:30:00 EST, [facility]/pharmacy #[id number], Partial fill upon patient request if the prescription is for a schedule II opioid drug., 157.5, cm, 02/19/23 9:20:00 EST, Height Start Date: 02/22/23 Status: Ordered [place]-3 Fish Oil 1000 mg oral capsule 1 [...] Maintenance, 06/14/22 16:40:00 EDT, EC Tablet, [facility]/pharmacy #[id number], Partial fill upon patient request if the prescription is for a schedule II opioid drug., 157.5,... Start Date: 06/14/22 Status: Ordered oxyCODONE 10 mg oral tablet TAKE 1/2 TAB EVERY 12 HOURS NEEDED FOR SEVERE NECK/LOW BACK PAIN. DO NOT FILL UNTIL 05/01/21 Start Date: 06/02/21 Status: Ordered Pen Omega, 31 G x 8 mm BD Ultra [...] 13:08:00 EDT, Route to Pharmacy Electronically, [facility]/pharmacy #[id number], Partial fill upon patient request if the prescription is for a schedule II opi... Start Date: 12/06/22 Stop Date: 05/05/23 Status: Ordered whipped topping supervisor grabber tool whipped topping supervisor grabber tool, See Instructions, # 1 each, Refills 0, Tot. Refills 0, Maintenance, please dispense one whipped topping supervisor grabber tool, ICD 10 M54.6, length [...] tablet, 10 Refills, Maintenance, 01/17/23 8:54:00 EDT, [facility], 157.5, cm, 12/28/22 15:12:00 EDT, Height Start Date: 01/17/23 Status: Ordered Trulicity Pen 4.5 mg/0.5 mL subcutaneous solution See Instructions, INJECT 4.5 MG SUBCUTANEOUSLY ONCE A WEEK, # 2 mL, 5 Refills, Maintenance, 11/21/22 8:33:00 EDT, [facility], 157.5, cm, 11/16/22 13:50:00 EDT, Height Start Date: 11/21/22 Status: Ordered valACYclovir 500 mg oral tablet 1, tablet, By Mouth, 2 times a day, PRN, # 6 tablet, Refills 1, Maintenance, NEEDED FOR OUTBREAKS, 04/10/23 8:50:00 EST, Route to Pharmacy Electronically, [facility]57, 157.5, cm, 03/18/23 11:17:00 EST, Height Start Date: 04/10/23 Status: Ordered Vascepa 1 g oral capsule 2 capsule = 2 Gm, By Mouth, 2 times a day, # 360 capsule, 5 Refills, Maintenance, 05/03/20 15:59:00EST, Capsule, [facility]/pharmacy #[id number], 157.48, cm, 03/04/20 14:14:00 EST, Height Start Date: 05/03/20 Status: Ordered Ventolin HFA 108 mcg/inh inhalation aerosol with adapter 1 puffs, Inhalation, 4 times a day, PRN NEEDED FOR WHEEZING, # 18 each, 0 Refills, Maintenance, 09/17/22 15:25:00 EDT, [facility] 01487, 157.5, cm, 09/05/22 16:22:00 EDT, Height Start [...] 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 No wall motion abnormalities, Does [...] * Event Display: Ultrasound Neck Authored Date: [id number] Patient Care team information Care Team Personnel Name: Sergo Bazzi MD Position: S Physician - Primary Care Member Role: PCP Address: Address: [address] [place] [address] [place] [address]- [place] Name: Lizbeth Collins [place] Position: [facility] RN Member Role: Primary Care Nurse Care Team Related Persons Name: LB HENLEY Address: home [address] [address] Name: LB HENLEY Address: [address] [place] [address] Name: MILENA CUBA Address: home [address] [place] [address] [address] [place] [address]
--- OUTSIDE RECORDS SUMMARY | 2024-01-23 14:27 | XMS_ITS | Continuity of Care Document ---
Author Organization [facility] Address [address] [place] [address]- Care Team Providers Care Hooking Machine Operator Name Role Phone Rose Mary FISCHER, Sergo Cole Primary Care Physician Encounter [facility] Date(s): 02/08/22 - 03/10/22 [facility] [address], [place] [address] Allergies, Adverse Reactions, Alerts Substance [...] 1Result Comment: [01/22/2017] [facility] [id number] 2Admin Note: vis given dated 10/24/12 3Admin Note: vis given dated 10/01/11 4Admin Note: vis 5Admin Note: vis 6Admin Note: vis given: 10/27/2006 7Admin Note: vis given : 10/10/2005 8Admin Note: vis given 2007- Medications acetaminophen 500 mg oral tablet 2 tablet, By Mouth, 4 times a day, PRN NEEDED FOR PAIN, # 100 tablet, 1 Refills, Acute, 219:52:00 EDT, [id number], 157.48, cm, 10/11/20 9:39:00 EDT, Height Start Date: 10/26/20 Status: Ordered albuterol CFC free 90 mcg/inh inhalation aerosol 1, puffs, Inhalation, 4 times a day, PRN, # 8.5 Gm, Refills 0, Tot. Refills 0, Maintenance, 02/21/22 15:04:00 EST, Aerosol, Route to Pharmacy Electronically, [id number], [facility]/pharmacy #[id number], 157.5, cm, 02/21/22 14:36:00 EST, H... Start Date: 02/21/22 Status: Ordered Alcohol Pads See Instructions, # 200 each, Refills 11, Tot. Refills 11, Maintenance, To cleans before injections5 x a day., 03/03/21 9:18:00 EST, E11.65, Compound, 157.48, cm, 03/01/21 15:54:00 EST, Height Start Date: 03/03/21 Stop Date: 02/26/22 Status: Ordered Xhrzn-Bxzugs-Hjni 300 mg oral capsule 1 capsule, By Mouth, 2 times a day, NOT COVERED., # 60 capsule, 11 Refills, [id number], 157.48, cm, 01/27/21 9:30:00 EDT, Height Start Date: 01/30/21 Status: Ordered ammonium lactate 12% topical cream 1 application, Topically, 2 times a day, # 385 Gm, 5 Refills, Maintenance, 09/08/21 9:35:00 EDT, Cream, [facility]/pharmacy #[id number], Partial fill upon patient request if the prescription is for a schedule II opioid drug., 1 application Topically 2 times a day,... Start Date: 09/08/21 Stop Date: 03/07/22 Status: Ordered atorvastatin 80 mg oral tablet 1 tablet = 80 mg, By Mouth, Daily, replaces Simvastatin, # 90 tablet, 4 Refills, Maintenance, 08/26/22 14:22:00 EDT, Tablet, [facility]/pharmacy #[id number], replaces simvastatin, 157.5, cm, 11/29/21 15:59:00 EDT, Height Start Date: 08/26/22 Stop Date: 11/19/23 Status: Ordered capsaicin 0.075% topical cream See Instructions, APPLY TO AFFECTED AREA TWICE A DAY, # 57 Gm, 4 Refills, Maintenance, 03/05/22 13:29:00 EST, [id number], 30, APPLY TO AFFECTED AREA TWICE A DAY, 157.5, cm, 03/02/22 10:34:00 EST, Height Start Date: 03/05/22 Status: Ordered Daily David oral tablet 1 tablet, By Mouth, Daily, INSTR:TAKE IT 2 HOURS SEPARATE FROM ORLISTAT ([place]), # 30 tablet, 11 Refills, Maintenance, 08/19/20 16:26:00 EDT, [id number], 30, TAKE 1 TABLET BY MOUTH DAILY. [...] 03/30/22 13:11:00 EST, 09/01/21 13:11:00 EDT, Gel, [facility]/pharmacy #[id number], 157.48, cm, 08/24/21 8:03:00 EDT,... Start Date: 09/01/21 Stop Date: 03/30/22 Status: Ordered diclofenac 1% topical gel 1 application, Topically, 4 times a day, not to exceed 16 grams/day/single joint of lower extremities, # 100 Gm, 0 Refills, Maintenance, 01/29/22 8:51:00 EDT, Gel, [facility]/pharmacy #[id number], 157.5, cm, 01/20/22 13:38:00 EDT, Height Start Date: 01/29/22 Stop Date: 02/28/22 Status: Ordered docusate sodium 100 mg oral capsule 100 mg, 1, capsule, By Mouth, 2 times a day, PRN, # 60 capsule, Refills 5, Tot. Refills 5, Maintenance, as needed for constipation, 11/10/21 9:17:00 EDT, Route to Pharmacy Electronically, [facility]/pharmacy #[id number], Partial fill upon patient [...] day, # 60 each, 0 Refills, Maintenance, 02/21/22 15:05:00 EST, Powder, [facility]/pharmacy #[id number], Partial fill upon patient request if the prescription is for a schedule II opioid drug., 1 puffs Inhalation 2 times a day, 157.5,... Start Date: 02/21/22 Status: Ordered fluticasone 50 mcg/inh nasal spray See Instructions, USE 1 SPRAY IN EACH NOSTRIL EVERY DAY, # 16 mL, 5 Refills, 12/29/21 15:10:00 EDT,[facility]/pharmacy #[id number], USE 1 SPRAY IN [...] mL, 9 Refills, Maintenance, 08/24/21 9:25:00 EDT, [facility], Partial fill upon patient request if the prescription is for a schedule II opioid d... Start Date: 08/24/21 Status: Ordered Lantus Solostar Pen 100 units/mL subcutaneous solution See Instructions, Decreased to 60U once a day as of 12/29/19, # 30 mL, 9 Refills, Maintenance, 09/20/20 15:10:00 EDT, [facility], NEEDS 30 ML FOR 30 DAY SUPPLY E11.9, 157.48, cm, 05/31/20 9:41:00 EST, Height Start Date: 09/20/20 Status: Ordered lidocaine 5% topical ointment See Instructions, APPLY TO AFFECTED AREA 3 TIMES A DAY, # 35.44 Gm, 11 Refills, Maintenance, 02/28/22 8:51:00 EST, [facility]/pharmacy #[id number], 30, APPLY TO AFFECTED AREA 3 TIMES A DAY, 157.5, cm, 02/21/22 14:36:00 EST, Height Start Date: 02/28/22 Status: Ordered losartan 50 mg oral tablet 1 tablet, By Mouth, Daily, # 30 tablet, 5 Refills, 12/08/21 16:06:00 EDT, [facility]/pharmacy #[id number], 157.5, cm, 11/29/21 15:59:00 EDT, Height Start Date: 12/08/21 Status: Ordered Lyrica 25 mg oral capsule See Instructions, 1 capsule By Mouth 1 time daily at bedtime. E11.9, # 30 each, 5 Refills, Maintenance, 09/18/21 12:21:00 EDT, Capsule, [facility]/pharmacy #[id number], Partial fill upon patient [...] Refills, Maintenance, 01/29/22 8:52:00 EDT, EC Tablet, [facility]/pharmacy #[id number], Partial fill upon patient request if the prescription is for a schedule II opioid drug., 157.5,... Start Date: 01/29/22 Status: Ordered oxyCODONE 10 mg oral tablet TAKE 1/2 TAB EVERY 12 HOURS NEEDED FOR SEVERE NECK/LOW BACK PAIN. DO NOT FILL UNTIL 05/01/21 Start Date: 06/02/21 Status: Ordered Pen [place], 31 G x 8 mm BD Ultra [...] 11:08:00 EST, 01/09/22 11:08:00 EDT, Chew Tablet, [facility]/pharmacy #[id number], Partial fill upon patient [...] Stop 09/16/22 11:02:00 EDT, 01/19/22 11:02:00 EDT, [facility]/pharmacy #[id number], 157.5, cm, 01/09/22 10:18:00 EDT, Height Start Date: 01/19/22 Stop Date: 09/16/22 Status: Ordered Topamax 25 mg oral tablet 3 tablet = 75 mg, By Mouth, Daily at bedtime, # 90 tablet, 6 Refills, Maintenance, 01/19/22 10:34:00 EDT, Tablet, [facility]/pharmacy #[id number], 157.5, cm, 01/09/22 10:18:00 EDT, Height Start Date: 01/19/22 Stop Date: 08/17/22 Status: Ordered Trulicity Pen 3 mg/0.5 mL subcutaneous solution See Instructions, INJECT 0.5ML SUBCUTANEOUSLY EVERY WEEK, ROTATE INJECTION SITES, # 2 mL, 5 Refills, 01/23/22 16:33:00 EDT, [facility], 157.5, cm, 01/20/22 13:38:00 EDT, Height Start Date: 01/23/22 Status: Ordered Vascepa 1 g oral capsule 2 capsule = 2 Gm, By Mouth, 2 times a day, # 360 capsule, 5 Refills, Maintenance, 05/03/20 15:59:00EST, Capsule, [facility]/pharmacy #[id number], 157.48, cm, 03/04/20 14:14:00 [...] 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
--- OUTSIDE RECORDS SUMMARY | 2024-01-23 14:27 | XMS_ITS | Continuity of Care Document ---
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 obesity (BMI 35.0-39.9) with comorbidity?? Stool incontinence?? Tubular adenoma of colon?? Education Materials Below is the list of Educational Leaflet Providered with your Discharge Instructions. Valuables and Belongings I fully understand and agree that [facility] accepts no responsibility for all my [...] to send valuables and belongings home. ?? Review of Valuable and Belonging List: With patient Date for Pt to Sign Valuables/Belongings: 04/17/23 07:57:00 ?? Other Discharge Information ? Pulmonary Rehab Status?? Pulmonary Rehab Discharge Status?? Respiratory Rate: 18 br/min ? Common Emergency Awareness Tips IS [...] are strongly encouraged to quit. Please call [facility] [employer] Link at [phone] or [phone] ([phone]) or log in to [email or web address] for referrals to smoking cessation programs. ?? 889 Suicide & Crisis Lifeline is available 22/10 if you or someone you know needs to find a reason to keep living. By calling 413 you'll be connected to a skilled, trained counselor at a crisis center in your area. INPATIENT DISCHARGE INSTRUCTIONS SIGNATURE PAGE MICHAEL GAO Location:[facility] Registration Date and Time:04/16/2023 10:55 EST Primary Care Physician: Rose Mary FISCHER, Sergo Cole, Attending Physician: Vik FISCHER, Aracelis, I KALE MICHAEL RUSHING, have received the above patient education materials/instructions and have verbalized understanding. If ambulance or transport services are being used I further acknowledge being given a choice of service. ?? If you need to contact me, please call me at this number: . Patient/Medical Staff Manager Name: Patient/Medical Staff Manager Signature: Relationship to Patient: Witness Name/Signature: Date: * Candy Edwards RN: PERFORM Event Display: Patient Education Leaflets Authored Date: [id number] Surgery Post Thyroidectomy Discharge Instructions ?? 299 ?Post Thyroidectomy Discharge Instructions ?? Activity: ??? Resume activity as tolerated. ??? Progress to strenuous activity or heavy lifting cautiously and in general not for the first week ??? You may drive if you feel comfortable moving your head from side to side ??? You may shower, gently washing the incision with soap and water. Pat the incision dry after your shower. Do not cover the incision with a dressing, leave it open to air. ?? Notify MD if: ??? You have increased neck swelling. ??? You notice opening of wound edges ??? You have increased drainage from wound ??? You experience tingling around mouth and/or fingertips ??? You have difficulty swallowing or shortness of breath ?? Follow ???up appointment: You need to call the office at after you get home and during business hours for a follow-up appointment. This should be in about 2 weeks. ? Patient Care team information Care Team Personnel Name: Sergo Bazzi MD Position: [facility] Physician - Primary Care Member Role: PCP Address: Address: [address] [facility] [place] [address]- Name: Lizbeth Collins [place] Position: [facility] RN Member Role: Primary Care Nurse Care Team Related Persons Name: LB HENLEY Address: home [address] [address] Name: LB HENLEY Address: home [address] [place] [address] Name: MILENA CUBA Address: home [address] [facility] [address] [place] [address]
--- OUTSIDE RECORDS SUMMARY | 2024-01-23 14:27 | XMS_ITS | Continuity of Care Document ---
Author Organization [facility] Address [address] [place] [address]- Care Team Providers Care Plow And Boring Machine Tender Name Role Phone Sergo Bazzi MD Primary Care Physician [phone] Encounter [facility] [id number] Date(s): 03/11/23 - 05/03/23 [facility] [address] [place] [id number] Attending Physician: Jigna Yang MD Admitting Physician: Jigna Yang MD Referring Physician: Sergo Bazzi MD Allergies, [...] Given 1Result Comment: [01/22/2017] [facility] [id number] 2Admin Note: vis given dated 10/24/12 3Admin [...] 100 tablet, 1 Refills, Acute, 219:52:00 EDT, [facility], 157.48, cm, 10/11/20 9:39:00 EDT, Height Start Date: 10/26/20 Status: Ordered Alcohol Pads See Instructions, # 200 each, Refills 11, Tot. Refills 11, Maintenance, To cleans before injections5 x a day., 03/03/21 9:18:00 EST, E11.65, Compound, 157.48, cm, 03/01/21 15:54:00 EST, Height Start Date: 03/03/21 Stop Date: 02/26/22 Status: Ordered Hroeh-Jwthbn-Wwkc 300 mg oral capsule 1 capsule, By Mouth, 2 times a day, NOT COVERED., # 60 capsule, 11 Refills, [facility], 157.48, cm, 01/27/21 9:30:00 EDT, Height Start Date: 01/30/21 Status: Ordered ammonium lactate 12% topical cream 1 application, Topically, 2 times a day, # 385 Gm, 1 Refills, Maintenance, 12/22/22 14:16:00 EDT, Cream, [facility]/pharmacy #[id number], Partial fill upon patient request if the prescription is for a schedule IIopioid drug., 1 application Topically 2 times a day... Start Date: 12/22/22 Stop Date: 02/20/23 Status: Ordered atorvastatin 80 mg oral tablet 1 tablet = 80 mg, By Mouth, Daily, replaces Simvastatin, # 90 tablet, 1 Refills, Maintenance, 11/19/23 14:22:00 EDT, Tablet, [facility]/pharmacy #[id number], replaces simvastatin, 157.5, cm, 11/26/22 14:11:00 EDT, Height Start Date: 11/19/23 Stop Date: 05/17/24 Status: Ordered BD Single Use Swab 70% topical pad See Instructions, TO CLEANS BEFORE INJECTIONS 5 X A DAY., # 150 Unknown, 11 Refills, Maintenance, 08/16/22 10:15:00 EDT, [facility], 30, TO CLEANS BEFORE INJECTIONS 5 X A DAY., 157.5, cm, 08/01/22 9:27:00 EDT, Height Start Date: 08/16/22 Status: Ordered busPIRone 5 mg oral tablet 5 mg, 1, tablet, By Mouth, 2 times a day, # 60 tablet, Refills 4, Tot. Refills 4, Maintenance, 04/30/23 7:27:00 EST, Route to Pharmacy Electronically, [facility]/pharmacy #[id number], Partial fill upon patient request if the prescription is for a schedule II opioi... Start Date: 04/30/23 Stop Date: 09/27/23 Status: Ordered capsaicin 0.075% topical cream See Instructions, APPLY TO AFFECTED AREA TWICE A DAY, # 57 Gm, 4 Refills, Maintenance, 04/11/23 10:18:00 EST, [facility], 30, APPLY TO AFFECTED AREA TWICE A [...] tablet, 11 Refills, Maintenance, 07/09/22 10:30:00 EDT, [facility]/pharmacy #[id number], 30, 1 tablet By Mouth [...] Gm, 1 Refills, Maintenance, 12/14/22 6:14:00 EDT, [id number], 30, APPLY TOPICALLY 4 TIMES A DAY NOT TO EXCEED 16 GRAMS/DAY/SING... Start Date: 12/14/22 Status: Ordered docusate sodium 100 mg oral capsule See Instructions, TAKE 1 CAPSULE BY MOUTH TWICE A DAY NEEDED FOR CONSTIPATION, # 60 capsule, 5 Refills, Maintenance, 07/03/22 18:20:00 EDT, [facility]/pharmacy #[id number], Duplicate Rx. Original sent 07/03/22 with routing error. Re- sending to pharmacy, 157.5, cm... Start Date: 07/03/22 Status: Ordered esomeprazole 40 mg oral enteric coated capsule 1 capsule = 40 mg, By Mouth, Daily, # 90 capsule, 1 Refills, Maintenance, 03/07/23 13:32:00 EST, [id number], Partial fill upon patient [...] each, 0 Refills, Maintenance, 09/20/22 9:36:00 EDT, [facility], 30, INHALE 1 PUFF BY MOUTH TWICE A DAY, 157.5, cm, 09/05/22 16:22:00 EDT, Height Start Date: 09/20/22 Status: Ordered fluticasone 50 mcg/inh nasal spray See Instructions, SPRAY 1 SPRAY INTO EACH NOSTRIL EVERY DAY, # 16 mL, 5 Refills, Maintenance, 07/05/22 16:20:00 EDT, [facility], 30, SPRAY 1 SPRAY INTO EACH NOSTRIL [...] tablet, 4 Refills, Maintenance, 03/11/23 15:50:00 EST, [facility], 157.5, cm, 02/19/23 9:20:00 EST, Height Start [...] mL, 6 Refills, Maintenance, 11/26/22 14:55:00 EDT, [facility], Partial fill upon patie... Start Date: 11/26/22 Status: Ordered lactase 3000 u oral tablet 3 tablet, By Mouth, 3 times a day with meals, X30 DAYS., # 120 tablet, 5 Refills, Maintenance, 04/25/23 15:25:00 EST, [facility] 20468, 157, cm, 04/17/23 7:57:00 EST, Height, 88.3, kg, 04/16/23 11:33:00 EST, Dry Weight Start Date: 04/25/23 Status: Ordered Lantus Solostar Pen 100 units/mL subcutaneous solution See Instructions, Take 45 units in the AM and 45 units daily at bedtime. E11.9., # 30 mL, 9 Refills, Maintenance, 11/26/22 14:55:00 EDT, [facility], Partial fill upon patient requestif the prescription is for a schedule II opioid lucas... Start Date: 11/26/22 Status: Ordered levothyroxine 0.137 mg oral tablet 1 tablet = 137 mcg, By Mouth, Daily, # 30 tablet, 2 Refills, Maintenance, 04/17/23 7:46:00 EST, Tablet, [facility]/pharmacy #[id number], Partial fill upon patient request if the prescription is for a schedule II opioid drug., 157, cm, 04/16/23 11:33:00 EST, Height... Start Date: 04/17/23 Status: Ordered lidocaine 5% topical ointment See Instructions, APPLY TO AFFECTED AREA 3 TIMES A DAY, # 35.44 Gm, 11 Refills, Maintenance, 02/28/22 8:51:00 EST, [facility]/pharmacy #[id number], 30, APPLY TO AFFECTED AREA 3 TIMES A DAY, 157.5, cm, 02/21/22 14:36:00 EST, Height Start Date: 02/28/22 Status: Ordered lidocaine 5% topical ointment See Instructions, APPLY TO AFFECTED AREA 3 TIMES A DAY, # 35.44 Gm, 11 Refills, Maintenance, 07/03/22 18:22:00 EDT, [facility]/pharmacy #[id number], 30, Duplicate Rx. Original sent 07/03/22 with routing error. Re-sending to pharmacy, APPLY TO AFFECTED AREA 3 TIMES A... Start Date: 07/03/22 Status: Ordered losartan 50 mg oral tablet See Instructions, TAKE 1 TABLET BY MOUTH EVERY DAY, # 90 tablet, 1 Refills, Maintenance, 03/11/23 15:50:00 EST, [facility] 51792, 157.5, cm, 02/19/23 9:20:00 EST, Height Start Date: 03/11/23 Status: Ordered Lyrica 25 mg oral capsule See Instructions, 1 capsule By Mouth 1 time daily at bedtime. E11.9, # 30 each, 5 Refills, Maintenance, 01/21/23 15:40:00 EDT, Capsule, [facility]/pharmacy #[id number], Partial fill upon patient request if the prescription is for a schedule II opioid drug., 157.5,... Start Date: 01/21/23 Status: Ordered mirtazapine 15 mg oral tablet 1 tablet = 15 mg, By Mouth, Daily at bedtime, # 30 tablet, 4 Refills, Maintenance, 12/06/22 13:07:00 EDT, Tablet, [facility]/pharmacy #[id number], Partial fill upon patient request [...] EST, Height Start Date: 02/22/23 Status: Ordered Cove-3 Fish Oil 1000 mg oral capsule 1 capsule = 1,000 mg, By Mouth, Daily, # 90 capsule, 1 Refills, Maintenance, 08/01/22 10:17:00 EDT,[facility]/pharmacy #[id number], Partial fill upon patient request if the prescription is for a schedule II opioid drug., 157.5, cm, 08/01/22 9:27:00 EDT, Height Start Date: 08/01/22 Status: Ordered omeprazole 20 mg oral delayed release tablet 1 tablet = 20 mg, By Mouth, 2 times a day, do not crush or chew, # 60 tablet, 2 Refills, Maintenance, 06/14/22 16:40:00 EDT, EC Tablet, [facility]/pharmacy #[id number], Partial fill upon patient request if the prescription is for a schedule II opioid drug., 157.5,... Start Date: 06/14/22 Status: Ordered ondansetron 4 mg oral tablet 1 tablet = 4 mg, By Mouth, Every 8 hours, PRN Nausea & Vomiting, for 10 days, # 30 tablet, 2 Refills, Acute 06/02/23 13:49:00 EST, 05/03/23 13:49:00 EST, Tablet, [facility]/pharmacy #[id number], Partial fill upon patient request if the prescription is for a schedu... Start Date: 05/03/23 Stop Date: 06/02/23 Status: Ordered oxyCODONE 10 mg oral tablet TAKE 1/2 TAB EVERY 12 HOURS NEEDED FOR SEVERE NECK/LOW BACK PAIN. DO NOT FILL UNTIL 05/01/21 Start Date: 06/02/21 Status: Ordered Pen [place], 31 G x 8 mm BD Ultra [...] 12/06/22 13:08:00 EDT, Route to Pharmacy Electronically, [facility]/pharmacy #[id number], Partial fill upon patient request if the prescription is for a schedule II opi... Start Date: 12/06/22 Stop Date: 05/05/23 Status: Ordered internet ecommerce specialist grabber tool internet ecommerce specialist grabber tool, See Instructions, # 1 each, Refills 0, Tot. Refills 0, Maintenance, please dispense one internet ecommerce specialist grabber tool, ICD 10 M54.6, length [...] 10 Refills, Maintenance, 01/17/23 8:54:00 EDT, [facility], 157.5, cm, 12/28/22 15:12:00 EDT, Height Start Date: 01/17/23 Status: Ordered Trulicity Pen 4.5 mg/0.5 mL subcutaneous solution See Instructions, INJECT 4.5 MG SUBCUTANEOUSLY ONCE A WEEK, # 2 mL, 5 Refills, Maintenance, 11/21/22 8:33:00 EDT, [facility], 157.5, cm, 11/16/22 13:50:00 EDT, Height Start Date: 11/21/22 Status: Ordered valACYclovir 500 mg oral tablet 1, tablet, By Mouth, 2 times a day, PRN, # 6 tablet, Refills 1, Maintenance, NEEDED FOR OUTBREAKS, 05/03/23 8:37:00 EST, Route to Pharmacy Electronically, [facility], 157, cm, 04/17/23 7:57:00 EST, Height, 88.3, kg, 04/16/23 11:33:00 EST, Dry... 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 *Briana Garces, Assisted Living Manager, ICP [phone] Confirmed Active PTSD (post-traumatic stress disorder) Confirmed [...] Name: Rose Mary FISCHER, Sergo Cole Position: [facility] Physician - Primary Care Member Role: PCP Address: Address: [address] [place] [address]- Name: Lizbeth Collins [place] Position: [facility] RN Member Role: Primary Care Nurse Care Team Related Persons Name: LB HENLEY Address: home [address] [place] [address] Name: LB HENLEY Address: [address] [address] Name: MILENA CUBA Address: home [address] [facility] [address] [place] [address]
--- OUTSIDE RECORDS SUMMARY | 2024-01-23 14:27 | XMS_ITS | Continuity of Care Document ---
Author Organization [facility] Address [address] [place] [address]- Care Team Providers Care Educational Fundraising Director Name Role Phone Diann REIS, Anyi Primary Care Physician Encounter [facility] Date(s): 04/20/22 - 06/21/[address] [address] Attending Physician: Sergo Bazzi MD Admitting Physician: Sergo Bazzi MD Referring Physician: Sergo Bazzi MD Allergies, [...] (oldterm) 8 01/21/08 Given 1Result Comment: [01/22/2017] [facility] [id number] 2Admin Note: vis given dated 10/24/12 3Admin Note: vis given dated 10/01/11 4Admin Note: vis 5Admin Note: vis 6Admin Note: vis given: 10/27/2006 7Admin Note: vis given : 10/10/2005 8Admin Note: vis given 2007- Medications acetaminophen 500 mg oral tablet 2 tablet, By Mouth, 4 times a day, PRN NEEDED FOR PAIN, # 100 tablet, 1 Refills, Acute, 219:52:00 EDT, [facility], 157.48, cm, 10/11/20 9:39:00 EDT, Height Start Date: 10/26/20 Status: Ordered Alcohol Pads See Instructions, # 200 each, Refills 11, Tot. Refills 11, Maintenance, To cleans before injections5 x a day., 03/03/21 9:18:00 EST, E11.65, Compound, 157.48, cm, 03/01/21 15:54:00 EST, Height Start Date: 03/03/21 Stop Date: 02/26/22 Status: Ordered Bruya-Nqqpqc-Bylz 300 mg oral capsule 1 capsule, By Mouth, 2 times a day, NOT COVERED., # 60 capsule, 11 Refills, [facility], 157.48, cm, 01/27/21 9:30:00 EDT, Height Start Date: 01/30/21 Status: Ordered ammonium lactate 12% topical cream 1 application, Topically, 2 times a day, # 385 Gm, 3 Refills, Maintenance, 04/05/22 13:30:00 EST, Cream, [facility]/pharmacy #[id number], Partial fill upon patient request if the [...] Refills, Maintenance, 03/05/22 13:29:00 EST, [facility], 30, APPLY TO AFFECTED AREA TWICE A [...] Refills, Maintenance, 08/19/20 16:26:00 EDT, [facility], 30, TAKE 1 TABLET BY MOUTH DAILY. [...] Replace Required Details, Route to Pharmacy Electronically, [facility]/pharmacy... Start Date: 05/02/22 Status: Ordered diclofenac 1% topical gel See Instructions, APPLY TOPICALLY 4 TIMES A DAY NOT TO EXCEED 16 GRAMS/DAY/SINGLE JOINT OF LOWER EXTREMITIES, # 100 Gm, 6 Refills, Maintenance, 03/19/22 9:28:00 EST, [facility], 30, APPLY TOPICALLY 4 TIMES A DAY NOT TO EXCEED 16 GRAMS/DAY/SINGLE... Start Date: 03/19/22 Status: Ordered docusate sodium 100 mg oral capsule 100 mg, 1, capsule, By Mouth, 2 times a day, PRN, # 60 capsule, Refills 5, Tot. Refills 5, Maintenance, as needed for constipation, 06/12/22 9:52:00 EDT, Route to Pharmacy Electronically, [facility]/pharmacy #[id number], Partial fill upon patient request [...] each, 0 Refills, Maintenance, 03/22/22 16:35:00 EST, [facility] 18[facility], 30, INHALE 1 PUFF BY MOUTH TWICE A DAY, 157.5, cm, 03/22/22 13:25:00 EST, Height Start Date: 03/22/22 Status: Ordered fluticasone 50 mcg/inh nasal spray See Instructions, USE 1 SPRAY IN EACH NOSTRIL EVERY DAY, # 16 mL, 5 Refills, 12/29/21 15:10:00 EDT,[facility]/pharmacy #[id number], USE 1 SPRAY IN EACH NOSTRIL [...] mL, 6 Refills, Maintenance, 06/12/22 10:00:00 EDT, [facility], Partial fill upon patie... Start Date: 06/12/22 Status: Ordered Lantus Solostar Pen 100 units/mL subcutaneous solution See Instructions, Take 45 units in the AM and 45 units daily at bedtime. E11.9., # 30 mL, 9 Refills, Maintenance, 06/19/22 16:50:00 EDT, [facility], Partial fill upon patient requestif the prescription is for a schedule II opioid lucas... Start Date: 06/19/22 Status: Ordered lidocaine 5% topical ointment See Instructions, APPLY TO AFFECTED AREA 3 TIMES A DAY, # 35.44 Gm, 11 Refills, Maintenance, 02/28/22 8:51:00 EST, [facility]/pharmacy #4471, 30, APPLY TO AFFECTED AREA 3 TIMES A DAY, 157.5, cm, 02/21/22 14:36:00 EST, Height Start Date: 02/28/22 Status: Ordered losartan 50 mg oral tablet 1 tablet, By Mouth, Daily, # 30 tablet, 5 Refills, Maintenance, 05/30/22 16:26:00 EST, [facility] 19786, 157.5, cm, 05/09/22 10:05:00 EST, Height Start Date: 05/30/22 Status: Ordered Lyrica 25 mg oral capsule See Instructions, 1 capsule By Mouth 1 time daily at bedtime. E11.9, # 30 each, 5 Refills, Maintenance, 05/01/22 18:04:00 EST, Capsule, [facility]/pharmacy #[id number], Partial fill upon patient request if the prescription is for a schedule II opioid drug., 157.5,... Start Date: 05/01/22 Status: Ordered mirtazapine 15 mg oral tablet 1 tablet = 15 mg, By Mouth, Daily at bedtime, # 30 tablet, 4 Refills, Maintenance, 05/02/22 14:02:00 EST, Tablet, [facility]/pharmacy #[id number], Partial fill upon patient request [...] Maintenance, 06/14/22 16:40:00 EDT, EC Tablet, [facility]/pharmacy #[id number], Partial fill upon patient request if the prescription is for a schedule II opioid drug., 157.5,... Start Date: 06/14/22 Status: Ordered oxyCODONE 10 mg oral tablet TAKE 1/2 TAB EVERY 12 HOURS NEEDED FOR SEVERE NECK/LOW BACK PAIN. DO NOT FILL UNTIL 05/01/21 Start Date: 06/02/21 Status: Ordered Pen [place], 31 G x 8 mm BD Ultra [...] 05/02/22 14:40:00 EST, Route to Pharmacy Electronically, [facility]/pharmacy #[id number], Partial fill upon patient request if the prescription is for a schedule II opi... Start Date: 05/02/22 Status: Ordered legal examiner grabber tool legal examiner grabber tool, See Instructions, # 1 each, Refills 0, Tot. Refills 0, Maintenance, please dispense one legal examiner grabber tool, ICD 10 M54.6, length of [...] 10:05:00 EDT, 06/12/22 10:05:00 EDT, Chew Tablet, [facility], Partial fill upon patient request if the prescription is for a jacinda... Start Date: 06/12/22 Stop Date: 09/25/22 Status: Ordered SUMAtriptan 25 mg oral tablet 1 tablet, By Mouth, Daily, PRN NEEDED FOR MIGRAINES, for 30 days, MAY RPT DOSE AFTER 2 HRS TO MAX OF 2, # 12 tablet, 7 Refills, Physician Stop 12/15/22 14:36:00 EDT, 04/19/22 14:36:00 EST, [facility]/pharmacy #4471, 157.5, cm, 04/11/22 10:50:00 EST, Height Start Date: 04/19/22 Stop Date: 12/15/22 Status: Ordered Topamax 25 mg oral tablet 3 tablet = 75 mg, By Mouth, Daily at bedtime, # 90 tablet, 6 Refills, Maintenance, 04/19/22 14:35:00 EST, Tablet, [facility]/pharmacy #[id number], 157.5, cm, 04/11/22 10:50:00 EST, Height Start Date: 04/19/22 Stop Date: 11/15/22 Status: Ordered Trulicity Pen 3 mg/0.5 mL subcutaneous solution See Instructions, INJECT 0.5ML SUBCUTANEOUSLY EVERY WEEK, ROTATE INJECTION SITES, # 2 mL, 5 Refills, 01/23/22 16:33:00 EDT, [facility], 157.5, cm, 01/20/22 13:38:00 EDT, Height Start Date: 01/23/22 Status: Ordered Trulicity Pen 4.5 mg/0.5 mL subcutaneous solution See Instructions, 4.5 mg Subcutaneous Infusion weekly. E11.9, # 4 each, 5 Refills, Maintenance, 06/19/22 17:00:00 EDT, [facility], Partial fill upon patient request if the prescription is for a schedule II opioid drug., 157.5, cm, ... 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 RN Member Role: Primary Care Nurse Name: Anyi Tidwell NP Position: [facility] PC[facility] Associate Professional Member Role: PCP Address: Address: [address] [place] [address]- Care Team Related Persons Name: LB HENLEY Address: home [address] [address] Name: LB HENLEY Address: home [address] [place] [address] Name: MILENA CUBA Address: home [address] [facility] [address] [place] [address]
--- OUTSIDE RECORDS SUMMARY | 2024-01-23 14:27 | XMS_ITS | Continuity of Care Document ---
Author Organization [facility] Address [address] [place] [address]- Care Team Providers Care Tai Chi Instructor Name Role Phone Sergo Bazzi MD Primary Care Physician [facility] Date[facility]s): 01/07/20 - 02/06/20 [facility] [address], [place] [address] Attending Physician: Admtr, [id number] Admitting Physician: Admtr, [...] 8 01/21/08 Given 1Result Comment: [01/22/2017] [facility] [id number] 2Admin Note: vis given dated 10/24/12 3Admin [...] mL, 5 Refills, Maintenance, 09/02/19 13:54:00 EDT, [facility], E11.9, 157.48, cm, 04/27/19 15:43:... [...] tablet, 3 Refills, Maintenance, 02/01/20 15:26:00 EST, [facility]/pharmacy #[id number], 157.48, cm, 01/25/20 [...] tablet, 5 Refills, Maintenance, 12/21/19 17:01:00 EDT, [facility]/pharmacy#[id number], 157.48, cm, 04/27/19 15:43:00 EST, Height Start Date: 12/21/19 Status: Ordered atorvastatin 80 mg oral tablet 1 tablet = 80 mg, By Mouth, Daily, for 90 days, replaces Simvastatin, # 90 tablet, 4 Refills, Hard Stop 04/01/21 14:01:00 EST, 01/07/20 14:01:00 EDT, Tablet, [facility]/pharmacy #[id number], replaces simvastatin,157.48, cm, 12/29/19 15:55:00 EDT, Height Start Date: 01/07/20 Stop Date: 04/01/21 Status: Ordered atorvastatin 80 mg oral tablet 1 tablet = 80 mg, By Mouth, Daily, replaces Simvastatin, # 90 tablet, 4 Refills, Maintenance, 04/01/21 14:01:00 EST, Tablet, [facility]/pharmacy #[id number], replaces simvastatin, 157.48, cm, 12/29/19 15:55:00 EDT, Height Start Date: 04/01/21 Stop Date: 06/25/22 Status: Ordered BD ultra fine III pen needles [id number] BD ultra fine III pen needles [id number], See Instructions, # 360 each, Refills 3, [...] 60 Gm, 4 Refills, Acute, [facility], 30, APPLY TO AFFECTED AREA TWICE A [...] 6 Refills, Maintenance, 12/24/19 9:18:00 EDT, Gel, [facility]/pharmacy #[id number], 157.48, cm, 04/27/19 15:43:00 EST, [...] 5 Refills, Maintenance, 01/07/20 14:00:00 EDT, Tablet, [facility]/pharmacy #[id number], 157.48, cm, 12/29/19 15:55:00 EDT, Height [...] Gm, 1 Refills, Maintenance, 12/10/19 12:46:00 EDT, [facility]/pharmacy #[id number], 1 sprays Nares, [...] 3, Maintenance, use up to check blood tilogon2h per day. 90 DAY SUPPLY, E11.9, 08/21/19 [...] mL, 11 Refills, Maintenance, 09/02/19 13:55:00 EDT, [facility], NEEDS 30 ML FOR 30 [...] 11 Refills, Maintenance, 05/15/19 15:00:00 EST, Ointment, [facility]/pharmacy #[id number], 1 application Topically 3 times a day,x30 days, 157.48, cm, 04/27/19 15:43:00 EST, Height Start Date: 05/15/19 Stop Date: 05/09/20 Status: Ordered losartan 50 mg oral tablet 50 mg, 1, tablet, By Mouth, Daily, can substitute 25mg tabs x2 if needed, # 30 tablet, Refills 5, Tot. Refills 5, Maintenance, 01/11/20 11:21:00 EDT, Route to Pharmacy Electronically, [facility]/pharmacy #[id number], 157.48, cm, 12/29/19 [...] 4 Refills, Maintenance, 08/14/19 8:49:00 EDT, Tablet, [facility]/pharmacy #[id number], 1 tablet By [...] request Start Date: 02/16/19 Status: Ordered Pen [place], 31 G x 8 mm BD Ultra [...] 3 Refills, Maintenance, 12/13/20 15:26:00 EDT, Solution, [facility], E11.65, 157.48, cm, 04/27/19 15:43:00 EST, Height Start Date: 12/13/20 Stop Date: 12/08/21 Status: Ordered Trulicity Pen 1.5 mg/0.5 mL subcutaneous solution 0.5 mL = 1.5 mg, Subcutaneous Injection, Every Saturday, for 90 days, # 6.5 mL, 5 Refills, Hard Stop 12/13/20 15:26:00 EDT, 06/22/19 15:26:00 EDT, Solution, [id number], E11.65, 157.48, cm, 04/27/19 15:43:00 EST, Height Start Date: 06/22/19 Stop Date: 12/13/20 Status: Ordered valACYclovir 500 mg oral tablet See Instructions, TAKE 1 TABLET BY MOUTH TWICE A DAY FOR 3 DAYS NEEDED FOR OUTBREAK, # 6 tablet,Refills 2, Acute, Instructions Replace Required Details, Route to Pharmacy Electronically, [id number], 157.48, cm, 04/27/19 15:43:00 EST, Height Start Date: 12/21/19 Status: Ordered Vascepa 1 g oral capsule 2 capsule = 2 Gm, By Mouth, 2 times a day, # 360 capsule, 0 Refills, Maintenance, 01/25/20 15:40:00EDT, Capsule, [facility]/pharmacy #[id number], 157.48, cm, 01/25/20 15:23:00 EDT, Height [...] Active *Briana Garces, Care Coor dinator, ICP [phone](Confirmed) Active Reflux(Confirmed) Active 09956 -EF 60-65%. No wall motion abnormalities, Does [...]
--- OUTSIDE RECORDS SUMMARY | 2024-01-23 14:28 | XMS_ITS | Continuity of Care Document ---
Author Organization [facility] y Address [address] [place] [address]- Care Team Providers Care Displayer Merchandise Name Role Phone Sergo Bazzi MD Primary Care Physician Encounter [facility] Date(s[facility] 02/04/21 - 06/04/21 [facility] [address], [place] [address] Attending Physician: Not on Staff, Attending [...] 1Result Comment: [01/22/2017] [facility] [id number] 2Admin Note: vis given dated 10/24/12 3Admin Note: vis given dated 10/01/11 4Admin Note: vis 5Admin Note: vis 6Admin Note: vis given: 10/27/2006 7Admin Note: vis given : 10/10/2005 8Admin Note: vis given 2007- Medications acetaminophen 500 mg oral tablet 2 tablet, By Mouth, 4 times a day, PRN NEEDED FOR PAIN, # 100 tablet, 1 Refills, Acute, 219:52:00 EDT, [facility], 157.48, cm, 10/11/20 9:39:00 EDT, Height Start Date: 10/26/20 Status: Ordered Alcohol Pads See Instructions, # 200 each, Refills 11, Tot. Refills 11, Maintenance, To cleans before injections5 x a day., 03/03/21 9:18:00 EST, E11.65, Compound, 157.48, cm, 03/01/21 15:54:00 EST, Height Start Date: 03/03/21 Stop Date: 02/26/22 Status: Ordered Qekfd-Luvkbe-Vucq 300 mg oral capsule 1 capsule, By Mouth, 2 times a day, NOT COVERED., # 60 capsule, 11 Refills, [facility], 157.48, cm, 01/27/21 9:30:00 EDT, Height Start Date: 01/30/21 Status: Ordered ammonium lactate 12% topical cream 1 application, Topically, 2 times a day, # 385 Gm, 5 Refills, Maintenance, 12/19/20 14:08:00 EDT, Cream, [facility]/pharmacy #[id number], Partial fill upon patient request if the prescription is for a schedule IIopioid drug., 1 application Topically 2 times a day... Start Date: 12/19/20 Stop Date: 06/17/21 Status: Ordered aspirin 81 mg oral delayed release tablet 1 tablet, By Mouth, Daily, # 30 tablet, 11 Refills, Maintenance, 06/21/20 17:44:00 EDT, [facility], 157.48, cm, 05/31/20 9:41:00 EST, Height Start Date: 06/21/20 Status: Ordered atorvastatin 80 mg oral tablet 1 tablet = 80 mg, By Mouth, Daily, replaces Simvastatin, # 90 tablet, 4 Refills, Maintenance, 06/02/21 14:22:00 EST, Tablet, [facility]/pharmacy #[id number], replaces simvastatin, 157.48, cm, 06/02/21 14:20:00 EST, Height Start Date: 06/02/21 Stop Date: 08/26/22 Status: Ordered capsaicin 0.075% topical cream See Instructions, APPLY TO AFFECTED AREA TWICE A DAY, # 57 Gm, 4 Refills, [facility], 30, APPLY TO AFFECTED AREA TWICE A DAY, 157.48, cm, 11/11/20 9:37:00 EDT, Height Start Date: 01/02/21 Status: Ordered Daily David oral tablet 1 tablet, By Mouth, Daily, INSTR:TAKE IT 2 HOURS SEPARATE FROM ORLISTAT ([place]), # 30 tablet, 11 Refills, Maintenance, 08/19/20 16:26:00 EDT, [facility], 30, TAKE 1 TABLET BY MOUTH DAILY. [...] 6 Refills, Maintenance, 09/02/20 12:50:00 EDT, Gel, [facility]/pharmacy #[id number], 157.48, cm, 05/31/20 9:41:00 EST, [...] EVERY DAY, # 16 mL, 5 Refills, [facility], 30, USE 1 SPRAY IN EACH NOSTRIL [...] 3, Maintenance, use up to check blood [id number] per day. 90 DAY SUPPLY, E11.9, 03/03/21 [...] mL, 3 Refills, Maintenance, 05/09/21 10:32:00 EST, [facility], Partial fill upon pat... Start Date: 05/09/21 Status: Ordered Lantus Solostar Pen 100 units/mL subcutaneous solution See Instructions, Decreased to 60U once a day as of 12/29/19, # 30 mL, 9 Refills, Maintenance, 09/20/20 15:10:00 EDT, [facility], NEEDS 30 ML FOR [...] 0 Refills, Maintenance, 12/19/20 14:08:00 EDT, Film, [facility]/pharmacy #[id number], Partial fill upon patient request if the prescription is for a schedule II opioid drug., 1 patch Topically Daily, 157.48, cm, 11/11/20 9:37:0... Start Date: 12/19/20 Status: Ordered losartan 50 mg oral tablet 1 tablet, By Mouth, Daily, # 30 tablet, 2 Refills, [facility] 27804, 157.48, cm, 05/05/21 9:51:00 EST, Height Start [...] Refills, Maintenance, 05/23/21 13:30:00 EST, EC Tablet, [facility]/pharmacy #[id number], Partial fill upon patient request if the prescription is for a schedule II opioid drug., 157.48... Start Date: 05/23/21 Status: Ordered oxyCODONE 10 mg oral tablet TAKE 1/2 TAB EVERY 12 HOURS NEEDED FOR SEVERE NECK/LOW BACK PAIN. DO NOT FILL UNTIL 05/01/21 Start Date: 06/02/21 Status: Ordered Pen [place], 31 G x 8 mm BD Ultra [...] OF 2, # 12 tablet, 7 Refills, [facility], 157.48, cm, 05/23/21 13:08:00 EST, Height Start Date: 06/02/21 Status: Ordered tiZANidine 4 mg oral capsule 1 capsule, By Mouth, 3 times a day, # 90 capsule, 3 Refills, [facility], 157.48, cm, 05/23/21 13:08:00 EST, Height Start Date: 06/01/21 Status: Ordered Topamax 25 mg oral tablet 2 tablet = 50 mg, By Mouth, Daily at bedtime, # 60 tablet, 6 Refills, Maintenance, 04/21/20 13:35:00 EST, Tablet, [facility]/pharmacy #[id number], 157.48, cm, 03/04/20 14:14:00 EST, Height Start Date: 04/21/20 Stop Date: 11/17/20 Status: Ordered Trulicity Pen 1.5 mg/0.5 mL subcutaneous solution 0.5 mL = 1.5 mg, Subcutaneous Injection, Every Saturday, for 90 days, E11.9, # 7.5 mL, 3 Refills, Hard Stop 12/03/22 15:26:00 EDT, 12/08/21 15:26:00 EDT, Solution, [facility], E11.65, 157.48, cm, 03/04/20 14:14:00 EST, Height Start Date: 12/08/21 Stop Date: 12/03/22 Status: Ordered Trulicity Pen 3 mg/0.5 mL subcutaneous solution 0.5 mL = 3 mg, Subcutaneous Injection, Every week, rotate injection sites, # 2 mL, 6 Refills, Maintenance, 03/01/21 16:55:00 EST, Solution, [facility], Partial fill upon patient request if the prescription is for a schedule II opioid... Start Date: 03/01/21 Status: Ordered Vascepa 1 g oral capsule 2 capsule = 2 Gm, By Mouth, 2 times a day, # 360 capsule, 5 Refills, Maintenance, 05/03/20 15:59:00EST, Capsule, [facility]/pharmacy #[id number], 157.48, cm, 03/04/20 [...] Active *Briana Garces, Care Coor dinator, ICP [phone](Confirmed) Active Reflux(Confirmed) Active Hepatic steatosis(Confirmed) Active 92754 -EF 60-65%. No wall motion abnormalities, Does [...]
--- OUTSIDE RECORDS SUMMARY | 2024-01-23 14:28 | XMS_ITS | Continuity of Care Document ---
Author Organization [facility] Address [address] [place] [address]- Care Team Providers Care Commodity Specialist Name Role Phone Rose Mary FISCHER, Sergo Cole Primary Care Physician [facility] Date[facility]s): 03/03/21 - 04/02/21 [facility] [address], [place] [address] Allergies, Adverse Reactions, Alerts Substance Reaction [...] 01/21/08 Gi lizzeth Influenza Vaccine (oldterm) 8 10/22/08 Given 1Result Comment: [01/22/2017] [facility] [id number] 2Admin Note: vis given dated 10/24/12 3Admin Note: vis given dated 10/01/11 4Admin Note: vis 5Admin Note: vis 6Admin Note: vis given: 10/27/2006 7Admin Note: vis given : 10/10/2005 8Admin Note: vis given 2007- Medications acetaminophen 500 mg oral tablet 2 tablet, By Mouth, 4 times a day, PRN NEEDED FOR PAIN, # 100 tablet, 1 Refills, Acute, 219:52:00 EDT, [facility], 157.48, cm, 10/11/20 9:39:00 EDT, Height Start Date: 10/26/20 Status: Ordered Acyclovir Maintenance, 11/13/18 15:06:54 EDT Start Date: 11/13/18 Status: Ordered Admelog SoloStar 100 units/mL injectable solution 10 - 25 units, Subcutaneous Infusion, 3 times a day with meals, Inject via sliding scale, Max Dailydose 75u, 90 day supply, E11.9, # 90 mL, 5 Refills, Maintenance, 09/02/19 13:54:00 EDT, [facility], E11.9, 157.48, cm, 04/27/19 15:43:... Start Date: 09/02/19 Status: Ordered Alcohol Pads See Instructions, # 200 each, Refills 11, Tot. Refills 11, Maintenance, To cleans before injections5 x a day., 03/03/21 9:18:00 EST, E11.65, Compound, 157.48, cm, 03/01/21 15:54:00 EST, Height Start Date: 03/03/21 Stop Date: 02/26/22 Status: Ordered Egfpr-Xzoawd-Iapy 300 mg oral capsule 1 capsule, By Mouth, 2 times a day, NOT COVERED., # 60 capsule, 11 Refills, [facility], 157.48, cm, 01/27/21 9:30:00 EDT, Height Start Date: 01/30/21 Status: Ordered ammonium lactate 12% topical cream 1 application, Topically, 2 times a day, # 385 Gm, 5 Refills, Maintenance, 12/19/20 14:08:00 EDT, Cream, [facility]/pharmacy #[id number], Partial fill upon patient [...] tablet, 11 Refills, Maintenance, 06/21/20 17:44:00 EDT, [facility] 44403, 157.48, cm, 05/31/20 9:41:00 EST, Height Start Date: 06/21/20 Status: Ordered atorvastatin 80 mg oral tablet 1 tablet = 80 mg, By Mouth, Daily, replaces Simvastatin, # 90 tablet, 4 Refills, Maintenance, 02/23/20 11:05:00 EST, Tablet, [facility]/pharmacy #[id number], replaces simvastatin, 157.48, cm, 01/25/20 15:23:00 EDT, Height Start Date: 02/23/20 Stop Date: 05/18/21 Status: Ordered BD ultra fine III pen needles [id number] BD ultra fine III pen needles [id number], See Instructions, # 360 each, Refills 3, [...] A DAY, # 57 Gm, 4 Refills, [facility], 30, APPLY TO AFFECTED AREA TWICE A DAY, 157.48, cm, 11/11/20 9:37:00 EDT, Height Start Date: 01/02/21 Status: Ordered Daily David oral tablet 1 tablet, By Mouth, Daily, INSTR:TAKE IT 2 HOURS SEPARATE FROM ORLISTAT ([place]), # 30 tablet, 11 Refills, Maintenance, 08/19/20 16:26:00 EDT, [facility], 30, TAKE 1 TABLET BY MOUTH DAILY. [...] 6 Refills, Maintenance, 09/02/20 12:50:00 EDT, Gel, [facility]/pharmacy #[id number], 157.48, cm, 05/31/20 9:41:00 EST, Height [...] 5 Refills, Maintenance, 01/07/20 14:00:00 EDT, Tablet, [facility]/pharmacy #[id number], 157.48, cm, 12/29/19 15:55:00 EDT, Height [...] EVERY DAY, # 16 mL, 5 Refills, [facility] 6[facility]27, 30, USE 1 SPRAY IN EACH NOSTRIL [...] 3, Maintenance, use up to check blood [id number] per day. 90 DAY SUPPLY, E11.9, 03/03/21 9:18:00 EST, E11.9, Compound, 157.48, cm, 03/01/21 15:54:00 EST, Height Start Date: 03/03/21 Stop Date: 02/26/22 Status: Ordered Gloves See Instructions, # 100 each, Refills 11, Tot. Refills 11, Maintenance, for incontinance., 03/21/2114:31:00 EST, Supply Start Date: 03/21/21 Status: Ordered Gloves See Instructions, # 2 [...] mL, 3 Refills, Maintenance, 01/13/21 8:58:00 EDT, [facility], Partial fill upon patient request [...] mL, 9 Refills, Maintenance, 09/20/20 15:10:00 EDT, [facility], NEEDS 30 ML FOR 30 [...] 0 Refills, Maintenance, 12/19/20 14:08:00 EDT, Film, [facility]/pharmacy #[id number], Partial fill upon patient request if the prescription is for a schedule II opioid drug., 1 patch Topically Daily, 157.48, cm, 11/11/20 9:37:0... Start Date: 12/19/20 Status: Ordered losartan 50 mg oral tablet 1 tablet, By Mouth, Daily, # 30 tablet, 5 Refills, Maintenance, 12/02/20 5:43:00 EDT, [facility]/pharmacy #[id number], 157.48, cm, 11/11/20 9:37:00 EDT, Height [...] request Start Date: 02/16/19 Status: Ordered Pen [place], 31 G x 8 mm BD Ultra [...] a day, # 90 capsule, 1 Refills, [facility] 06110, 157.48, cm, 03/21/21 13:21:00 EST, Height Start Date: 03/27/21 Status: Ordered Topamax 25 mg oral tablet 2 tablet = 50 mg, By Mouth, Daily at bedtime, # 60 tablet, 6 Refills, Maintenance, 04/21/20 13:35:00 EST, Tablet, [facility]/pharmacy #[id number], 157.48, cm, 03/04/20 14:14:00 EST, Height Start Date: 04/21/20 Stop Date: 11/17/20 Status: Ordered Trulicity Pen 1.5 mg/0.5 mL subcutaneous solution 0.5 mL = 1.5 mg, Subcutaneous Injection, Every Saturday, for 90 days, # 7.5 mL, 3 Refills, Hard Stop 12/08/21 15:26:00 EDT, 12/13/20 15:26:00 EDT, Solution, [facility], E11.65, 157.48, cm, 04/27/19 15:43:00 EST, Height Start Date: 12/13/20 Stop Date: 12/08/21 Status: Ordered Trulicity Pen 1.5 mg/0.5 mL subcutaneous solution 0.5 mL = 1.5 mg, Subcutaneous Injection, Every Saturday, for 90 days, E11.9, # 7.5 mL, 3 Refills, Hard Stop 12/03/22 15:26:00 EDT, 12/08/21 15:26:00 EDT, Solution, [facility], E11.65, 157.48, cm, 03/04/20 14:14:00 EST, Height Start Date: 12/08/21 Stop Date: 12/03/22 Status: Ordered Trulicity Pen 3 mg/0.5 mL subcutaneous solution 0.5 mL = 3 mg, Subcutaneous Injection, Every week, rotate injection sites, # 2 mL, 6 Refills, Maintenance, 03/01/21 16:55:00 EST, Solution, [facility], Partial fill upon patient request if the prescription is for a schedule II opioid... Start Date: 03/01/21 Status: Ordered Vascepa 1 g oral capsule 2 capsule = 2 Gm, By Mouth, 2 times a day, # 360 capsule, 5 Refills, Maintenance, 05/03/20 15:59:00EST, Capsule, [facility]/pharmacy #[id number], 157.48, cm, 03/04/20 14:14:00 [...] Active *Briana Garces, Rosemarie Coor dinator, ICP [phone](Confirmed) Active Reflux(Confirmed) Active Hepatic steatosis(Confirmed) Active 02330 -EF 60-65%. No wall motion abnormalities, Does [...]
--- OUTSIDE RECORDS SUMMARY | 2024-01-23 14:28 | XMS_ITS | Continuity of Care Document ---
Author Organization [facility] Address [address] [facility], [address] d Floor, [address] [place] [phone]- Care Team Providers Care Graining Press Operator Name Role Phone Diann LOOM WINDER TENDERAnyi Primary Care Physician Encounter [facility] Date(s): 06/26/22 - 07/03/22 [facility] [address], 3[address], [address] [place] [address]- Attending Physician: Not on Staff, Attending MD Referring Physician: Sergo Bazzi MD Allergies, Adverse Reactions, Alerts Substance Reaction Severity Status morphine ITCH DIARRHEA Active Ultram nausea, vomit Active Vioxx heart problems Active trazodone DEPRESSION [...] 01/05/11 Given Influenza Inactive (IM) (oldterm) 5 9/16/10 Given Pneumococcal Vaccine (oldterm) 6 01/21/08 Given Tet/Diphth/Acel, Pertussis (oldterm) 7 01/21/08 Gi lizzeth Influenza Vaccine (oldterm) 8 01/21/08 Given 1Result Comment: [01/22/2017] [facility] [id number] 2Admin Note: vis given dated 10/24/12 3Admin Note: vis given dated 10/01/11 4Admin Note: vis 5Admin Note: vis 6Admin Note: vis given: 10/27/2006 7Admin Note: vis given : 10/10/2005 8Admin Note: vis given 2007- Medications acetaminophen 500 mg oral tablet 2 tablet, By Mouth, 4 times a day, PRN NEEDED FOR PAIN, # 100 tablet, 1 Refills, Acute, 219:52:00 EDT, [id number], 157.48, cm, 10/11/20 9:39:00 EDT, Height Start Date: 10/26/20 Status: Ordered Alcohol Pads See Instructions, # 200 each, Refills 11, Tot. Refills 11, Maintenance, To cleans before injections5 x a day., 03/03/21 9:18:00 EST, E11.65, Compound, 157.48, cm, 03/01/21 15:54:00 EST, Height Start Date: 03/03/21 Stop Date: 02/26/22 Status: Ordered Cbuum-Xpsvox-Ouhi 300 mg oral capsule 1 capsule, By Mouth, 2 times a day, NOT COVERED., # 60 capsule, 11 Refills, [id number], 157.48, cm, 01/27/21 9:30:00 EDT, Height Start Date: 01/30/21 Status: Ordered ammonium lactate 12% topical cream 1 application, Topically, 2 times a day, # 385 Gm, 3 Refills, Maintenance, 04/05/22 13:30:00 EST, Cream, [facility]/pharmacy #[id number], Partial fill upon patient request if the [...] Refills, Maintenance, 03/05/22 13:29:00 EST, [facility], 30, APPLY TO AFFECTED AREA TWICE A [...] Refills, Maintenance, 08/19/20 16:26:00 EDT, [facility], 30, TAKE 1 TABLET BY MOUTH DAILY. [...] Route to Pharm[facility] Electronically, [facility] Start Date: 05/02/22 Status: Ordered diclofenac 1% topical gel See Instructions, APPLY TOPICALLY 4 TIMES A DAY NOT TO EXCEED 16 GRAMS/DAY/SINGLE JOINT OF LOWER EXTREMITIES, # 100 Gm, 6 Refills, Maintenance, 03/19/22 9:28:00 EST, [facility], 30, APPLY TOPICALLY 4 TIMES A DAY NOT TO EXCEED 16 GRAMS/DAY/SINGLE... Start Date: 03/19/22 Status: Ordered docusate sodium 100 mg oral capsule See Instructions, TAKE 1 CAPSULE BY MOUTH TWICE A DAY NEEDED FOR CONSTIPATION, # 60 capsule, 5 Refills, Maintenance, 07/03/22 18:20:00 [id number]. Original sent 07/03/22 with routing error. Re- sending to pharmacy, 157.5, cm... Start Date: 07/03/22 Status: Ordered docusate sodium 100 mg oral capsule 100 mg, 1, capsule, By Mouth, 2 times a day, PRN, # 60 capsule, Refills 5, Tot. Refills 5, Maintenance, as needed for constipation, 06/12/22 9:52:00 EDT, [id number] Partial fill upon patient request [...] 0 Refills, Maintenance, 03/22/22 16:35:00 EST, [facility] ST[facility] [id number], 30, INHALE 1 PUFF BY MOUTH TWICE A DAY, 157.5, cm, 03/22/22 13:25:00 EST, Height Start Date: 03/22/22 Status: Ordered fluticasone 50 mcg/inh nasal spray See Instructions, USE 1 SPRAY IN EACH NOSTRIL EVERY DAY, # 16 mL, 5 Refills, 07/03/22 9:27:00 EDT, [facility], USE 1 SPRAY IN EACH NOSTRIL EVERY DAY, 157.5, cm, 06/21/22 8:43:00 EDT,Height Start Date: 07/03/22 Status: Ordered Freestyle Insulinx Test Strips Freestyle [...] mL, 6 Refills, Maintenance, 06/12/22 10:00:00 EDT, [facility], Partial fill upon patie... Start Date: 06/12/22 Status: Ordered Lantus Solostar Pen 100 units/mL subcutaneous solution See Instructions, Take 45 units in the AM and 45 units daily at bedtime. E11.9., # 30 mL, 9 Refills, Maintenance, 06/19/22 16:50:00 EDT, [facility], Partial fill upon patient requestif the prescription is for a schedule II opioid lucas... Start Date: 06/19/22 Status: Ordered lidocaine 5% topical ointment See Instructions, APPLY TO AFFECTED AREA 3 TIMES A DAY, # 35.44 Gm, 11 Refills, Maintenance, 02/28/22 8:51:00 EST, [facility]/pharmacy #[id number], 30, APPLY TO AFFECTED AREA 3 TIMES A DAY, 157.5, cm, 02/21/22 14:36:00 EST, Height Start Date: 02/28/22 Status: Ordered lidocaine 5% topical ointment See Instructions, APPLY TO AFFECTED AREA 3 TIMES A DAY, # 35.44 Gm, 11 Refills, Maintenance, 07/03/22 18:22:00 EDT, [facility]/pharmacy #[id number], 30, Duplicate Rx. Original sent 07/03/22 with routing error. Re-sending to pharmacy, APPLY TO AFFECTED AREA 3 TIMES A... Start Date: 07/03/22 Status: Ordered losartan 50 mg oral tablet 1 tablet, By Mouth, Daily, # 30 tablet, 5 Refills, Maintenance, 05/30/22 16:26:00 EST, [facility] ST[facility] [id number], 157.5, cm, 05/09/22 10:05:00 EST, Height Start Date: 05/30/22 Status: Ordered Lyrica 25 mg oral capsule See Instructions, 1 capsule By Mouth 1 time daily at bedtime. E11.9, # 30 each, 5 Refills, Maintenance, 05/01/22 18:04:00 EST, Capsule, [facility]/pharmacy #[id number], Partial fill upon patient request if the prescription is for a schedule II opioid drug., 157.5,... Start Date: 05/01/22 Status: Ordered mirtazapine 15 mg oral tablet 1 tablet = 15 mg, By Mouth, Daily at bedtime, # 30 tablet, 4 Refills, Maintenance, 05/02/22 14:02:00 EST, Tablet, [facility]/pharmacy #[id number], Partial fill upon patient request if [...] 06/14/22 16:40:00 EDT, EC Tablet, [facility]/pharmacy #[id number], Partial fill upon patient request if the prescription is for a schedule II opioid drug., 157.5,... Start Date: 06/14/22 Status: Ordered oxyCODONE 10 mg oral tablet TAKE 1/2 TAB EVERY 12 HOURS NEEDED FOR SEVERE NECK/LOW BACK PAIN. DO NOT FILL UNTIL 05/01/21 Start Date: 06/02/21 Status: Ordered Pen Teaberry, 31 G x 8 mm BD Ultra [...] 05/02/22 14:40:00 EST, Route to Pharmacy Electronically, [facility]/pharmacy #[id number], Partial fill upon patient request if the prescription is for a schedule II opi... Start Date: 05/02/22 Status: Ordered mems integration engineer grabber tool mems integration engineer grabber tool, See Instructions, # 1 each, Refills 0, Tot. Refills 0, Maintenance, please dispense one mems integration engineer grabber tool, ICD 10 M54.6, length of [...] 10:05:00 EDT, 06/12/22 10:05:00 EDT, Chew Tablet, [facility], Partial fill upon [...] Stop 12/15/22 14:36:00 EDT, 04/19/22 14:36:00 EST, [facility]/pharmacy #[id number], 157.5, cm, 04/11/22 10:50:00 EST, Height Start Date: 04/19/22 Stop Date: 12/15/22 Status: Ordered Topamax 25 mg oral tablet 3 tablet = 75 mg, By Mouth, Daily at bedtime, # 90 tablet, 6 Refills, Maintenance, 06/26/22 10:14:00 EDT, Tablet, [facility], 157.5, cm, 06/21/22 8:43:00 EDT, Height Start Date: 06/26/22 Stop Date: 01/22/23 Status: Ordered Trulicity Pen 3 mg/0.5 mL subcutaneous solution See Instructions, INJECT 0.5ML SUBCUTANEOUSLY EVERY WEEK, ROTATE INJECTION SITES, # 2 mL, 5 Refills, 01/23/22 16:33:00 EDT, [facility], 157.5, cm, 01/20/22 13:38:00 EDT, Height Start Date: 01/23/22 Status: Ordered Trulicity Pen 4.5 mg/0.5 mL subcutaneous solution See Instructions, 4.5 mg Subcutaneous Infusion weekly. E11.9, # 4 each, 5 Refills, Maintenance, 06/19/22 17:00:00 EDT, [facility], Partial fill upon patient request if the prescription is for a schedule II opioid drug., 157.5, cm, 03/... Start Date: 06/19/22 Status: Ordered valACYclovir 500 mg oral tablet 1, tablet, By Mouth, 2 times a day, PRN, for 3 days, # 6 tablet, Refills 2, Tot. Refills 2, Physician Stop 07/12/22 9:29:00 EDT, NEEDED FOR OUTBREAK, 07/03/22 9:29:00 EDT, Route to Pharmacy Electronically, [facility], 157.5, cm, 03... Start Date: 07/03/22 Stop Date: 07/12/22 Status: Ordered Vascepa 1 g oral capsule 2 capsule = 2 Gm, By Mouth, 2 times a day, # 360 capsule, 5 Refills, Maintenance, 05/03/20 15:59:00EST, Capsule, [facility]/pharmacy #[id number], 157.48, cm, 03/04/20 14:14:00 EST, Height Start Date: 05/03/20 Status: Ordered Ventolin HFA 108 mcg/inh inhalation aerosol with adapter 1 puffs, Inhalation, 4 times a day, PRN NEEDED FOR WHEEZING, # 18 each, 0 Refills, Maintenance, 04/04/22 12:59:00 EST, [facility] STORE [id number], 157.5, cm, 03/22/22 13:25:00 EST, Height Start [...] 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 No wall motion abnormalities, Does [...] Care Team Personnel Name: Lizbeth Barnhart Position: [facility] RN Member Role: Primary Care Nurse Name: Anyi Tidwell NP Position: [facility] PCO Associate Professional Member Role: PCP Address: Address: [address] [place] [id number]- Care Team Related Persons Name: LB HENLEY Address: home [address] [place] [id number] Name: LB HENLEY Address: home [address] [place] [address] Name: MILENA CUBA Address: home [address] [place] [address] [address] [place] [address]
--- OUTSIDE RECORDS SUMMARY | 2024-01-23 14:28 | XMS_ITS | Continuity of Care Document ---
Author Organization [facility] Address [address] [place] [address]- Care Team Providers Care Talent Buyer Name Role Phone Rose Mary FISCHER, Sergo Cole Primary Care Physician [phone] Encounter [facility] Date(s): 08/29/22 - 09/28/22 [facility] [address] [place], [place] [address] Allergies, Adverse Reactions, Alerts Substance [...] (oldterm) 8 01/21/08 Given 1Result Comment: [01/22/2017] [facility] [id number] 2Admin Note: vis given dated 10/24/12 3Admin Note: vis given dated 10/01/11 4Admin Note: vis 5Admin Note: vis 6Admin Note: vis given: 10/27/2006 7Admin Note: vis given : 10/10/2005 8Admin Note: vis given 2007- Medications acetaminophen 500 mg oral tablet 2 tablet, By Mouth, 4 times a day, PRN NEEDED FOR PAIN, # 100 tablet, 1 Refills, Acute, 219:52:00 EDT, [facility], 157.48, cm, 10/11/20 9:39:00 EDT, Height Start Date: 10/26/20 Status: Ordered Alcohol Pads See Instructions, # 200 each, Refills 11, Tot. Refills 11, Maintenance, To cleans before injections5 x a day., 03/03/21 9:18:00 EST, E11.65, Compound, 157.48, cm, 03/01/21 15:54:00 EST, Height Start Date: 03/03/21 Stop Date: 02/26/22 Status: Ordered Qfuwj-Iylywf-Ulou 300 mg oral capsule 1 capsule, By Mouth, 2 times a day, NOT COVERED., # 60 capsule, 11 Refills, [facility], 157.48, cm, 01/27/21 9:30:00 EDT, Height Start [...] Unknown, 11 Refills, Maintenance, 08/16/22 10:15:00 EDT, [facility], 30, TO CLEANS BEFORE INJECTIONS 5 X A DAY., 157.5, cm, 08/01/22 9:27:00 EDT, Height Start Date: 08/16/22 Status: Ordered capsaicin 0.075% topical cream See Instructions, APPLY TO AFFECTED AREA TWICE A DAY, # 57 Gm, 4 Refills, Maintenance, 08/24/22 14:16:00 EDT, [facility]/pharmacy #[id number], 30, APPLY TO AFFECTED AREA TWICE [...] Gm, 6 Refills, Maintenance, 08/24/22 14:16:00 EDT, [facility]/pharmacy #[id number], 30, APPLY [...] 9:52:00 EDT, Route to Pharmacy Electronically, [facility]/pharmacy #[id number], Partial fill upon [...] 09/20/22 9:36:00 EDT, [facility] ST[facility]13, 30, INHALE 1 PUFF BY MOUTH TWICE A DAY, 157.5, cm, 09/05/22 16:22:00 EDT, Height Start Date: 09/20/22 Status: Ordered fluticasone 50 mcg/inh nasal spray See Instructions, SPRAY 1 SPRAY INTO EACH NOSTRIL EVERY DAY, # 16 mL, 5 Refills, Maintenance, 07/05/22 16:20:00 EDT, [facility], 30, SPRAY 1 SPRAY INTO EACH NOSTRIL [...] mL, 6 Refills, Maintenance, 06/12/22 10:00:00 EDT, [facility], Partial fill upon patie... [...] mL, 9 Refills, Maintenance, 06/19/22 16:50:00 EDT, [facility], Partial fill upon patient [...] Refills, Maintenance, 05/01/22 18:04:00 EST, Capsule, [facility]/pharmacy #[id number], Partial fill upon patient request if the prescription is for a schedule II opioid drug., 157.5,... Start Date: 05/01/22 Status: Ordered mirtazapine 15 mg oral tablet 1 tablet = 15 mg, By Mouth, Daily at bedtime, # 30 tablet, 4 Refills, Maintenance, 05/02/22 14:02:00 EST, Tablet, [facility]/pharmacy #[id number], Partial fill upon patient request if the prescription is for a schedule II opioid drug., 157.5, cm, 04/11/22 10:50:00... Start Date: 05/02/22 Stop Date: 09/29/22 Status: Ordered [place]-3 Fish Oil 1000 mg oral capsule 1 capsule = 1,000 mg, By Mouth, Daily, # 90 capsule, 1 Refills, Maintenance, 08/01/22 10:17:00 EDT,[facility]/pharmacy #[id number], Partial fill upon patient [...] 05/01/21 Start Date: 06/02/21 Status: Ordered Pen Jennings, 31 G x 8 mm BD Ultra [...] 08/30/22 13:31:00 EDT, Route to Pharmacy Electronically, [facility]/pharmacy #[id number], Partial fill upon patient request if the prescription is for a schedule II opi... Start Date: 08/30/22 Stop Date: 01/27/23 Status: Ordered nuclear unit operator grabber tool nuclear unit operator grabber tool, See Instructions, # 1 each, Refills 0, Tot. Refills 0, Maintenance, please dispense one nuclear unit operator grabber tool, ICD 10 M54.6, length [...] 14:16:00 EDT, 08/24/22 14:16:00 EDT, Chew Tablet, [facility]/pharmacy #[id number], Partial fill [...] Stop 12/15/22 14:36:00 EDT, 04/19/22 14:36:00 EST[id number] 157[facility]5, cm, 04/11/22 10:50:00 EST, Height Start Date: 04/19/22 Stop Date: 12/15/22 Status: Ordered Topamax 25 mg oral tablet 3 tablet = 75 mg, By Mouth, Daily at bedtime, # 90 tablet, 6 Refills, Maintenance, 06/26/22 10:14:00 EDT, Tablet, [facility], 157.5, cm, 06/21/22 8:43:00 EDT, Height Start Date: 06/26/22 Stop Date: 01/22/23 Status: Ordered Trulicity Pen 3 mg/0.5 mL subcutaneous solution See Instructions, INJECT 0.5ML SUBCUTANEOUSLY EVERY WEEK, ROTATE INJECTION SITES, # 2 mL, 5 Refills, 01/23/22 16:33:00 EDT, [facility], 157.5, cm, 01/20/22 13:38:00 EDT, Height Start Date: 01/23/22 Status: Ordered Trulicity Pen 4.5 mg/0.5 mL subcutaneous solution See Instructions, 4.5 mg Subcutaneous Infusion weekly. E11.9, # 4 each, 5 Refills, Maintenance, 06/19/22 17:00:00 EDT, [facility], Partial fill upon patient request if the prescription is for a schedule II opioid drug., 157.5, cm, ... 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 No wall motion abnormalities, Does [...] Team Personnel Name: Sergo Bazzi MD Position: [facility] Physician - Primary Care Member Role: PCP Address: Address: [address] [place] [address] [place] [address]- Name: Lizbeth Collins [place] Position: [facility] RN Member Role: Primary Care Nurse Care Team Related Persons Name: LB HENLEY Address: home [address] [place] [address] Name: LB HENLEY Address: [address] [address] Name: MILENA CUBA Address: home [address] [facility] [address] [place] [address]
--- OUTSIDE RECORDS SUMMARY | 2024-01-23 14:28 | XMS_ITS | Continuity of Care Document ---
Author Organization [facility] Address [address] [place] [address]- Care Team Providers Care Fishing Vessel Captain Name Role Phone Rose Mary FISCHER, Sergo Cole Primary Care Physician Encounter [facility] Date(s): 04/09/22 - 05/09/22 [facility] [address] [place] [id number] [place] Allergies, Adverse Reactions, Alerts Substance Reaction Severity Status morphine ITCH DIARRHEA Active Neurontin mental status changes Active Vioxx [...] 8 01/21/08 Given 1Result Comment: [01/22/2017] [facility][NOTE 3] [id number] 2Admin Note: vis given dated 10/24/12 3Admin Note: vis given dated 10/01/11 4Admin Note: vis 5Admin Note: vis 6Admin Note: vis given: 10/27/2006 7Admin Note: vis given : 10/10/2005 8Admin Note: vis given 2007- Medications acetaminophen 500 mg oral tablet 2 tablet, By Mouth, 4 times a day, PRN NEEDED FOR PAIN, # 100 tablet, 1 Refills, Acute, 219:52:00 EDT, [facility], 157.48, cm, 10/11/20 9:39:00 EDT, Height Start Date: 10/26/20 Status: Ordered Alcohol Pads See Instructions, # 200 each, Refills 11, Tot. Refills 11, Maintenance, To cleans before injections5 x a day., 03/03/21 9:18:00 EST, E11.65, Compound, 157.48, cm, 03/01/21 15:54:00 EST, Height Start Date: 03/03/21 Stop Date: 02/26/22 Status: Ordered Rnhzk-Nektvw-Lswu 300 mg oral capsule 1 capsule, By Mouth, 2 times a day, NOT COVERED., # 60 capsule, 11 Refills, [facility], 157.48, cm, 01/27/21 9:30:00 EDT, Height Start Date: 01/30/21 Status: Ordered ammonium lactate 12% topical cream 1 application, Topically, 2 times a day, # 385 Gm, 3 Refills, Maintenance, 04/05/22 13:30:00 EST, Cream, [facility]/pharmacy #[id number], Partial fill upon patient request [...] Gm, 4 Refills, Maintenance, 03/05/22 13:29:00 EST, [facility], 30, APPLY TO AFFECTED AREA TWICE A [...] tablet, 11 Refills, Maintenance, 08/19/20 16:26:00 EDT, [facility], 30, TAKE 1 TABLET BY MOUTH DAILY. [...] Gm, 6 Refills, Maintenance, 03/19/22 9:28:00 EST, [facility], 30, APPLY TOPICALLY 4 TIMES A DAY NOT TO EXCEED 16 GRAMS/DAY/SINGLE... Start Date: 03/19/22 Status: Ordered docusate sodium 100 mg oral capsule 100 mg, 1, capsule, By Mouth, 2 times a day, PRN, # 60 capsule, Refills 5, Tot. Refills 5, Maintenance, as needed for constipation, 11/10/21 9:17:00 EDT, Route to Pharmacy Electronically, [facility]/pharmacy #[id number], Partial fill upon patient request [...] each, 0 Refills, Maintenance, 03/22/22 16:35:00 EST, [facility] STORE 18468, 30, INHALE 1 PUFF BY MOUTH TWICE A DAY, 157.5, cm, 03/22/22 13:25:00 EST, Height Start Date: 03/22/22 Status: Ordered fluticasone 50 mcg/inh nasal spray See Instructions, USE 1 SPRAY IN EACH NOSTRIL EVERY DAY, # 16 mL, 5 Refills, 12/29/21 15:10:00 EDT,[facility]/pharmacy #[id number], USE 1 SPRAY IN EACH [...] Date: 09/18/22 Status: Ordered hospital bed mattress hospital bed mattress, See Instructions, # 1 each, Refills 0, Tot. Refills 0, Maintenance, please dispense 1 hospital bed mattress replacement - DX G89.4, length of use lifetime, 05/09/22 17:17:00 EST, Supply Start Date: 05/09/22 Status: Ordered hospital bed with mattress hospital [...] mL, 3 Refills, Maintenance, 03/22/22 15:43:00 EST, [facility], Partial fill upon patie... Start Date: 03/22/22 Status: Ordered Lantus Solostar Pen 100 units/mL subcutaneous solution See Instructions, Decreased to 60U once a day as of 12/29/19, # 30 mL, 9 Refills, Maintenance, 09/20/20 15:10:00 EDT, [facility], NEEDS 30 ML FOR 30 DAY SUPPLY E11.9, 157.48, cm, 05/31/20 9:41:00 EST, Height Start Date: 09/20/20 Status: Ordered Lantus Solostar Pen 100 units/mL subcutaneous solution See Instructions, Take 80 units via Subcutaneous Infusion Daily at bedtime. E11.9., # 30 mL, 9 Refills, Maintenance, 03/22/22 15:41:00 EST, [facility], Partial fill upon patient request if the prescription is for a schedule II opioid... Start Date: 03/22/22 Status: Ordered lidocaine 5% topical ointment See Instructions, APPLY TO AFFECTED AREA 3 TIMES A DAY, # 35.44 Gm, 11 Refills, Maintenance, 02/28/22 8:51:00 EST, [facility]/pharmacy #[id number], 30, APPLY TO AFFECTED AREA 3 TIMES A DAY, 157.5, cm, 02/21/22 14:36:00 EST, Height Start Date: 02/28/22 Status: Ordered losartan 50 mg oral tablet 1 tablet, By Mouth, Daily, # 30 tablet, 5 Refills, 12/08/21 16:06:00 EDT, [facility]/pharmacy #[id number], 157.5, cm, 11/29/21 15:59:00 EDT, [...] 4 Refills, Maintenance, 05/02/22 14:02:00 EST, Tablet, [facility]/pharmacy #[id number], Partial fill upon patient request if the prescription is for a schedule II opioid drug., 157.5, cm, 04/11/22 10:50:00... Start Date: 05/02/22 Stop Date: 09/29/22 Status: Ordered omeprazole 20 mg oral delayed release tablet 1 tablet = 20 mg, By Mouth, 2 times a day, do not crush or chew, # 60 tablet, 2 Refills, Maintenance, 03/30/22 10:50:00 EST, EC Tablet, [facility]/pharmacy #[id number], Partial fill upon patient request if the prescription is for a schedule II opioid drug., 157.5,... Start Date: 03/30/22 Status: Ordered oxyCODONE 10 mg oral tablet TAKE 1/2 TAB EVERY 12 HOURS NEEDED FOR SEVERE NECK/LOW BACK PAIN. DO NOT FILL UNTIL 05/01/21 Start Date: 06/02/21 Status: Ordered Pen [place], 31 G x 8 mm BD Ultra [...] 1 Refills, Maintenance, 04/11/22 11:31:00 EST, Tablet, [facility]/pharmacy #[id number], Partial fill upon patient request if the prescription is for a schedule II opioid drug., 157.5, cm, 04/11/22 10:50:00 EST, Height Start Date: 04/11/22 Status: Ordered QUEtiapine 25 mg oral tablet 25 mg, 1, tablet, By Mouth, 2 times a day, # 60 tablet, Refills 4, Tot. Refills 4, Maintenance, 05/02/22 14:40:00 EST, Route to Pharmacy Electronically, [facility]/pharmacy #[id number], Partial fill upon patient request if the prescription is for a schedule II opi... Start Date: 05/02/22 Status: Ordered optician apprentice grabber tool optician apprentice grabber tool, See Instructions, # 1 each, Refills 0, Tot. Refills 0, Maintenance, please dispense one optician apprentice grabber tool, ICD 10 M54.6, length of use 1 month, 04/12/22 10:13:00 EST, Supply Start Date: 04/12/22 Status: Ordered SUMAtriptan 25 mg oral tablet 1 tablet, By Mouth, Daily, PRN NEEDED FOR MIGRAINES, for 30 days, MAY RPT DOSE AFTER 2 HRS TO MAX OF 2, # 12 tablet, 7 Refills, Physician Stop 12/15/22 14:36:00 EDT, 04/19/22 14:36:00 EST, [facility]/pharmacy #[id number], 157.5, cm, 04/11/22 10:50:00 EST, Height Start Date: 04/19/22 Stop Date: 12/15/22 Status: Ordered Topamax 25 mg oral tablet 3 tablet = 75 mg, By Mouth, Daily at bedtime, # 90 tablet, 6 Refills, Maintenance, 04/19/22 14:35:00 EST, Tablet, [facility]/pharmacy #[id number], 157.5, cm, 04/11/22 10:50:00 EST, Height Start Date: 04/19/22 Stop Date: 11/15/22 Status: Ordered Trulicity Pen 3 mg/0.5 mL subcutaneous solution See Instructions, INJECT 0.5ML SUBCUTANEOUSLY EVERY WEEK, ROTATE INJECTION SITES, # 2 mL, 5 Refills, 01/23/22 16:33:00 EDT, [facility], 157.5, cm, 01/20/22 13:38:00 EDT, Height Start Date: 01/23/22 Status: Ordered Trulicity Pen 4.5 mg/0.5 mL subcutaneous solution See Instructions, 4.5 mg Subcutaneous Infusion weekly. E11.9, # 4 each, 5 Refills, Maintenance, 03/22/22 15:41:00 EST, [facility], Partial fill upon patient request if the prescription is for a schedule II opioid drug., 157.5, cm, ... 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 *Briana Garces, Final Inspector Movement Assembly, ICP [phone] Confirmed Active PTSD (post-traumatic stress disorder) Confirmed [...] Name: Rose Mary FISCHER, Sergo Cole Position: [facility] Primary Care Physician Member Role: PCP Address: Address: [address] [facility] [place] [address]- Name: Lizbeth Barnhart Position: [facility] RN Member Role: Primary Care Nurse Care Team Related Persons Name: LB HENLEY Address: home [address] [place] [address] Name: LB HENLEY Address: home [address] [address] Name: MILENA CUBA Address: home [address] [place] [address]
--- OUTSIDE RECORDS SUMMARY | 2024-01-23 14:28 | XMS_ITS | Continuity of Care Document ---
Author Organization [facility] Address [address] [place] [address]- Care Team Providers Care Senior Managing Director Name Role Phone Sergo Bazzi MD Primary Care Physician [phone] Encounter [facility] Date(s): 03/22/23 - 06/02/23 [facility] [address] [place] [address]- Attending Physician: Sergo Bazzi MD Admitting Physician: Sergo Bazzi MD Allergies, Adverse Reactions, [...] 1Result Comment: [01/22/2017] [facility] [id number] 2Admin Note: vis given dated 10/24/12 3Admin [...] 100 tablet, 1 Refills, Acute, 219:52:00 EDT, [facility], 157.48, cm, 10/11/20 9:39:00 EDT, Height Start Date: 10/26/20 Status: Ordered Alcohol Pads See Instructions, # 200 each, Refills 11, Tot. Refills 11, Maintenance, To cleans before injections5 x a day., 03/03/21 9:18:00 EST, E11.65, Compound, 157.48, cm, 03/01/21 15:54:00 EST, Height Start Date: 03/03/21 Stop Date: 02/26/22 Status: Ordered Gfpje-Gpbdyr-Htkq 300 mg oral capsule 1 capsule, By Mouth, 2 times a day, NOT COVERED., # 60 capsule, 11 Refills, [facility] 49947, 157.48, cm, 01/27/21 9:30:00 EDT, Height Start Date: 01/30/21 Status: Ordered ammonium lactate 12% topical cream 1 application, Topically, 2 times a day, # 385 Gm, 1 Refills, Maintenance, 12/22/22 14:16:00 EDT, Cream, [facility]/pharmacy #[id number], Partial fill upon patient request if the prescription is for a schedule IIopioid drug., 1 application Topically 2 times a day... Start Date: 12/22/22 Stop Date: 02/20/23 Status: Ordered atorvastatin 80 mg oral tablet 1 tablet, By Mouth, Daily, INSTR:REPLACES SIMVASTATIN, # 90 tablet, 1 Refills, Maintenance, 05/22/23 12:07:00 EST, [facility], 157, cm, 05/06/23 14:23:00 EST, Height, 88.3, kg, 04/16/23 11:33:00EST, Dry Weight Start Date: 05/22/23 Status: Ordered BD Single Use Swab 70% topical pad See Instructions, TO CLEANS BEFORE INJECTIONS 5 X A DAY., # 150 Unknown, 11 Refills, Maintenance, 08/16/22 10:15:00 EDT, [facility], 30, TO CLEANS BEFORE INJECTIONS 5 X A DAY., 157.5, cm, 08/01/22 9:27:00 EDT, Height Start Date: 08/16/22 Status: Ordered busPIRone 5 mg oral tablet 5 mg, 1, tablet, By Mouth, 2 times a day, # 60 tablet, Refills 4, Tot. Refills 4, Maintenance, 04/30/23 7:27:00 EST, Route to Pharmacy Electronically, [facility]/pharmacy #[id number], Partial fill upon patient request if the prescription is for a schedule II opioi... Start Date: 04/30/23 Stop Date: 09/27/23 Status: Ordered capsaicin 0.075% topical cream See Instructions, APPLY TO AFFECTED AREA TWICE A DAY, # 57 Gm, 4 Refills, Maintenance, 04/11/23 10:18:00 EST, [facility] STORE 07812, 30, APPLY TO AFFECTED AREA TWICE A [...] tablet, 11 Refills, Maintenance, 07/09/22 10:30:00 EDT, [facility]/pharmacy #[id number], 30, 1 tablet [...] Gm, 1 Refills, Maintenance, 12/14/22 6:14:00 EDT, [facility]/pharmacy #[id number], 30, APPLY TOPICALLY 4 TIMES A DAY NOT TO EXCEED 16 GRAMS/DAY/SING... Start Date: 12/14/22 Status: Ordered docusate sodium 100 mg oral capsule See Instructions, TAKE 1 CAPSULE BY MOUTH TWICE A DAY NEEDED FOR CONSTIPATION, # 60 capsule, 5 Refills, Maintenance, 07/03/22 18:20:00 EDT, [facility]/pharmacy #[id number], Duplicate Rx. Original [...] each, 0 Refills, Maintenance, 09/20/22 9:36:00 EDT, [facility], 30, INHALE 1 PUFF BY MOUTH TWICE A DAY, 157.5, cm, 09/05/22 16:22:00 EDT, Height Start Date: 09/20/22 Status: Ordered fluticasone 50 mcg/inh nasal spray See Instructions, SPRAY 1 SPRAY INTO EACH NOSTRIL EVERY DAY, # 16 mL, 5 Refills, Maintenance, 07/05/22 16:20:00 EDT, [facility], 30, SPRAY 1 SPRAY INTO EACH NOSTRIL [...] Stop Date: 09/18/22 Status: Ordered FREESTYLE LANCETS [facility] Miscellaneous FREESTYLE LANCETS [facility] Miscellaneous, See Instructions, # [...] tablet, 4 Refills, Maintenance, 03/11/23 15:50:00 EST, [facility] ST[facility] 53547, 157.5, cm, 02/19/23 9:20:00 EST, Height Start [...] mL, 6 Refills, Maintenance, 11/26/22 14:55:00 EDT, [facility], Partial fill upon patie... Start Date: 11/26/22 Status: Ordered lactase 3000 u oral tablet 3 tablet, By Mouth, 3 times a day with meals, X30 DAYS., # 120 tablet, 5 Refills, Maintenance, 04/25/23 15:25:00 EST, [facility] ST[facility], 157, cm, 04/17/23 7:57:00 EST, Height, 88.3, kg, 04/16/23 11:33:00 EST, Dry Weight Start Date: 04/25/23 Status: Ordered Lantus Solostar Pen 100 units/mL subcutaneous solution See Instructions, Take 45 units in the AM and 45 units daily at bedtime. E11.9., # 30 mL, 9 Refills, Maintenance, 11/26/22 14:55:00 EDT, [facility], Partial fill upon patient requestif the prescription is for a schedule II opioid lucas... Start Date: 11/26/22 Status: Ordered levothyroxine 0.112 mg oral tablet 1 tablet = 112 mcg, By Mouth, Daily, # 30 tablet, 0 Refills, Maintenance, 06/01/23 10:27:00 EST, [facility]/pharmacy #[id number], Partial fill upon patient request if the prescription is for a schedule II opioid drug., 157, cm, 05/06/23 14:23:00 EST, Height, 88.3,... Start Date: 06/01/23 Status: Ordered lidocaine 5% topical ointment See Instructions, APPLY TO AFFECTED AREA 3 TIMES A DAY, # 35.44 Gm, 11 Refills, Maintenance, 02/28/22 8:51:00 EST, [facility]/pharmacy #[id number], 30, APPLY TO [...] tablet, 1 Refills, Maintenance, 03/11/23 15:50:00 EST, [facility] STORE 50405, 157.5, cm, 02/19/23 9:20:00 EST, Height Start Date: 03/11/23 Status: Ordered Lyrica 25 mg oral capsule See Instructions, 1 capsule By Mouth 1 time daily at bedtime. E11.9, # 30 each, 5 Refills, Maintenance, 01/21/23 15:40:00 EDT, Capsule, [facility]/pharmacy #[id number], Partial fill upon [...] 2 Refills, Soft Stop, 02/22/23 14:30:00 EST, [facility]/pharmacy #[id number], Partial fill upon patient request if the prescription is for a schedule II opioid drug., 157.5, cm, 02/19/23 9:20:00 EST, Height Start Date: 02/22/23 Status: Ordered Crowheart-3 Fish Oil 1000 mg oral capsule 1 capsule = 1,000 mg, By Mouth, Daily, # 90 capsule, 1 Refills, Maintenance, 08/01/22 10:17:00 EDT,[facility]/pharmacy #[id number], Partial fill upon [...] Refills, Maintenance, 06/14/22 16:40:00 EDT, EC Tablet, [facility]/pharmacy #[id number], Partial fill upon patient request if the prescription is for a schedule II opioid drug., 157.5,... Start Date: 06/14/22 Status: Ordered oxyCODONE 10 mg oral tablet TAKE 1/2 TAB EVERY 12 HOURS NEEDED FOR SEVERE NECK/LOW BACK PAIN. DO NOT FILL UNTIL 05/01/21 Start Date: 06/02/21 Status: Ordered Pen [place], 31 G x 8 mm BD Ultra [...] 12/06/22 13:08:00 EDT, Route to Pharmacy Electronically, [facility]/pharmacy #[id number], Partial fill upon patient request if the prescription is for a schedule II opi... Start Date: 12/06/22 Stop Date: 05/05/23 Status: Ordered production team advisor grabber tool production team advisor grabber tool, See Instructions, # 1 each, Refills 0, Tot. Refills 0, Maintenance, please dispense one production team advisor grabber tool, ICD 10 M54.6, length of [...] 10 Refills, Maintenance, 01/17/23 8:54:00 EDT, [facility], 157.5, cm, 12/28/22 15:12:00 EDT, Height Start Date: 01/17/23 Status: Ordered Trulicity Pen 4.5 mg/0.5 mL subcutaneous solution See Instructions, INJECT 4.5 MG SUBCUTANEOUSLY ONCE A WEEK, # 2 mL, 5 Refills, Maintenance, 11/21/22 8:33:00 EDT, [facility], 157.5, cm, 11/16/22 13:50:00 EDT, Height Start Date: 11/21/22 Status: Ordered valACYclovir 500 mg oral tablet 1, tablet, By Mouth, 2 times a day, PRN, # 6 tablet, Refills 0, Maintenance, NEEDED FOR OUTBREAKS, 05/22/23 12:07:00 EST, Route to Pharmacy Electronically, [id number], 157, cm, 05/06/23 14:23:00 EST, Height, 88.3, kg, 04/16/23 11:33:00 EST, . Start Date: 05/22/23 Status: Ordered Valium 5 mg oral tablet 5 mg, 1, tablet, By Mouth, 2 times a day, for 30 days, # 60 tablet, Refills 0, Tot. Refills 0, Acute 06/26/23 15:38:00 EDT, 05/27/23 15:38:00 EST, Route to Pharmacy Electronically, [facility]/pharmacy #[id number], Partial fill upon patient request if the prescript... 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 No wall motion abnormalities, Does [...] Name: Rose Mary FISCHER, Sergo Cole Position: [facility] Physician - Primary Care Member Role: PCP Address: Address: [address] [place] [address] [place] [address]- Name: Lizbeth Collins [place] Position: [facility] RN Member Role: Primary Care Nurse Care Team Related Persons Name: LB HENLEY Address: home [address] [address] Name: LB HENLEY Address: [address] [place] [address] Name: MILENA CUBA Address: home [address] [place] [address]
--- OUTSIDE RECORDS SUMMARY | 2024-01-23 14:28 | XMS_ITS | Continuity of Care Document ---
Author Organization [facility] Address [address] [place] [address]- Care Team Providers Care Entry Rep Name Role Phone Rose Mary FISCHER, Sergo Cole Primary Care Physician [phone] Encounter [facility] Date(s): 03/03/21 - 04/02/21 [facility] [address], [place] [address] Allergies, Adverse Reactions, Alerts Substance Reaction [...] (oldterm) 8 10/22/08 Given 1Result Comment: [01/22/2017] [facility] [id number] 2Admin Note: vis given dated 10/24/12 3Admin Note: vis given dated 10/01/11 4Admin Note: vis 5Admin Note: vis 6Admin Note: vis given: 10/27/2006 7Admin Note: vis given : 10/10/2005 8Admin Note: vis given 2007- Medications acetaminophen 500 mg oral tablet 2 tablet, By Mouth, 4 times a day, PRN NEEDED FOR PAIN, # 100 tablet, 1 Refills, Acute, 219:52:00 EDT, [facility], 157.48, cm, 10/11/20 9:39:00 EDT, Height Start Date: 10/26/20 Status: Ordered Acyclovir Maintenance, 11/13/18 15:06:54 EDT Start Date: 11/13/18 Status: Ordered Admelog SoloStar 100 units/mL injectable solution 10 - 25 units, Subcutaneous Infusion, 3 times a day with meals, Inject via sliding scale, Max Dailydose 75u, 90 day supply, E11.9, # 90 mL, 5 Refills, Maintenance, 09/02/19 13:54:00 EDT, [facility], E11.9, 157.48, cm, 04/27/19 15:43:... Start Date: 09/02/19 Status: Ordered Alcohol Pads See Instructions, # 200 each, Refills 11, Tot. Refills 11, Maintenance, To cleans before injections5 x a day., 03/03/21 9:18:00 EST, E11.65, Compound, 157.48, cm, 03/01/21 15:54:00 EST, Height Start Date: 03/03/21 Stop Date: 02/26/22 Status: Ordered Ppwel-Cmyaua-Zzpg 300 mg oral capsule 1 capsule, By Mouth, 2 times a day, NOT COVERED., # 60 capsule, 11 Refills, [facility], 157.48, cm, 01/27/21 9:30:00 EDT, Height Start Date: 01/30/21 Status: Ordered ammonium lactate 12% topical cream 1 application, Topically, 2 times a day, # 385 Gm, 5 Refills, Maintenance, 12/19/20 14:08:00 EDT, Cream, [facility]/pharmacy #[id number], Partial fill upon patient request if [...] tablet, 11 Refills, Maintenance, 06/21/20 17:44:00 EDT, [facility] STORE [facility]2446, 157.48, cm, 05/31/20 9:41:00 EST, Height Start Date: 06/21/20 Status: Ordered atorvastatin 80 mg oral tablet 1 tablet = 80 mg, By Mouth, Daily, replaces Simvastatin, # 90 tablet, 4 Refills, Maintenance, 02/23/20 11:05:00 EST, Tablet, [facility]/pharmacy #[id number], replaces simvastatin, 157.48, cm, 01/25/20 15:23:00 EDT, Height Start Date: 02/23/20 Stop Date: 05/18/21 Status: Ordered BD ultra fine III pen needles [id number] BD ultra fine III pen needles [id number], See Instructions, # 360 each, Refills 3, [...] A DAY, # 57 Gm, 4 Refills, [facility], 30, APPLY TO AFFECTED AREA TWICE A DAY, 157.48, cm, 11/11/20 9:37:00 EDT, Height Start Date: 01/02/21 Status: Ordered Daily David oral tablet 1 tablet, By Mouth, Daily, INSTR:TAKE IT 2 HOURS SEPARATE FROM ORLISTAT ([place]), # 30 tablet, 11 Refills, Maintenance, 08/19/20 16:26:00 EDT, [facility], 30, TAKE 1 TABLET BY MOUTH DAILY. [...] 6 Refills, Maintenance, 09/02/20 12:50:00 EDT, Gel, [facility]/pharmacy #[id number], 157.48, cm, 05/31/20 9:41:00 EST, Height [...] 5 Refills, Maintenance, 01/07/20 14:00:00 EDT, Tablet, [facility]/pharmacy #[id number], 157.48, cm, 12/29/19 15:55:00 EDT, Height [...] EVERY DAY, # 16 mL, 5 Refills, [facility], 30, USE 1 SPRAY IN EACH NOSTRIL [...] 3, Maintenance, use up to check blood [id number] per day. 90 DAY SUPPLY, E11.9, 03/03/21 [...] mL, 3 Refills, Maintenance, 01/13/21 8:58:00 EDT, [facility], Partial fill upon patient [...] mL, 9 Refills, Maintenance, 09/20/20 15:10:00 EDT, [facility], NEEDS 30 ML FOR [...] 0 Refills, Maintenance, 12/19/20 14:08:00 EDT, Film, [facility]/pharmacy #[id number], Partial fill upon patient request if the prescription is for a schedule II opioid drug., 1 patch Topically Daily, 157.48, cm, 11/11/20 9:37:0... Start Date: 12/19/20 Status: Ordered losartan 50 mg oral tablet 1 tablet, By Mouth, Daily, # 30 tablet, 5 Refills, Maintenance, 12/02/20 5:43:00 EDT, [facility]/pharmacy #[id number], 157.48, cm, 11/11/20 9:37:00 EDT, Height [...] request Start Date: 02/16/19 Status: Ordered Pen [place], 31 G x [...] a day, # 90 capsule, 1 Refills, [facility] 84288, 157.48, cm, 03/21/21 13:21:00 EST, Height Start Date: 03/27/21 Status: Ordered Topamax 25 mg oral tablet 2 tablet = 50 mg, By Mouth, Daily at bedtime, # 60 tablet, 6 Refills, Maintenance, 04/21/20 13:35:00 EST, Tablet, [facility]/pharmacy #[id number], 157.48, cm, 03/04/20 14:14:00 EST, Height Start Date: 04/21/20 Stop Date: 11/17/20 Status: Ordered Trulicity Pen 1.5 mg/0.5 mL subcutaneous solution 0.5 mL = 1.5 mg, Subcutaneous Injection, Every Saturday, for 90 days, # 7.5 mL, 3 Refills, Hard Stop 12/08/21 15:26:00 EDT, 12/13/20 15:26:00 EDT, Solution, [facility], E11.65, 157.48, cm, 04/27/19 15:43:00 EST, Height Start Date: 12/13/20 Stop Date: 12/08/21 Status: Ordered Trulicity Pen 1.5 mg/0.5 mL subcutaneous solution 0.5 mL = 1.5 mg, Subcutaneous Injection, Every Saturday, for 90 days, E11.9, # 7.5 mL, 3 Refills, Hard Stop 12/03/22 15:26:00 EDT, 12/08/21 15:26:00 EDT, Solution, [facility], E11.65, 157.48, cm, 03/04/20 14:14:00 EST, Height Start Date: 12/08/21 Stop Date: 12/03/22 Status: Ordered Trulicity Pen 3 mg/0.5 mL subcutaneous solution 0.5 mL = 3 mg, Subcutaneous Injection, Every week, rotate injection sites, # 2 mL, 6 Refills, Maintenance, 03/01/21 16:55:00 EST, Solution, [facility], Partial fill upon patient request if the prescription is for a schedule II opioid... Start Date: 03/01/21 Status: Ordered Vascepa 1 g oral capsule 2 capsule = 2 Gm, By Mouth, 2 times a day, # 360 capsule, 5 Refills, Maintenance, 05/03/20 15:59:00EST, Capsule, [facility]/pharmacy #[id number], 157.48, cm, 03/04/20 14:14:00 EST, Height [...] Active *Briana Garces, Rosemarie Coor dinator, ICP [phone](Confirmed) Active Reflux(Confirmed) Active Hepatic steatosis(Confirmed) Active 94138 -EF 60-65%. No wall motion abnormalities, Does [...]
--- OUTSIDE RECORDS SUMMARY | 2024-01-23 14:28 | XMS_ITS | Continuity of Care Document ---
Author Organization [facility] Address [address] [place] [address] [address] [place] [address]- Care Team Providers Care Roundsman Name Role Phone Sergo Bazzi MD Primary Care Physician Encounter [facility] Date(s): 05/06/23 - 05/13/23 [facility] [address] [place] [address]- Attending Physician: Cielo FISCHER, Greg Romero Allergies, Adverse Reactions, Alerts Substance Reaction Severity [...] 8 01/21/08 Given 1Result Comment: [01/22/2017] [facility] [id number] 2Admin Note: vis given dated 10/24/12 3Admin [...] 100 tablet, 1 Refills, Acute, 219:52:00 EDT, [facility]87, 157.48, cm, 10/11/20 9:39:00 EDT, Height Start Date: 10/26/20 Status: Ordered Alcohol Pads See Instructions, # 200 each, Refills 11, Tot. Refills 11, Maintenance, To cleans before injections5 x a day., 03/03/21 9:18:00 EST, E11.65, Compound, 157.48, cm, 03/01/21 15:54:00 EST, Height Start Date: 03/03/21 Stop Date: 02/26/22 Status: Ordered Rcrmz-Fvhpkk-Gzwy 300 mg oral capsule 1 capsule, By Mouth, 2 times a day, NOT COVERED., # 60 capsule, 11 Refills, [facility] 59475, 157.48, cm, 01/27/21 9:30:00 EDT, Height Start Date: 01/30/21 Status: Ordered ammonium lactate 12% topical cream 1 application, Topically, 2 times a day, # 385 Gm, 1 Refills, Maintenance, 12/22/22 14:16:00 EDT, Cream, [facility]/pharmacy #[id number], Partial fill upon patient request if the prescription is for a schedule IIopioid drug., 1 application Topically 2 times a day... Start Date: 12/22/22 Stop Date: 02/20/23 Status: Ordered atorvastatin 80 mg oral tablet 1 tablet = 80 mg, By Mouth, Daily, replaces Simvastatin, # 90 tablet, 1 Refills, Maintenance, 11/19/23 14:22:00 EDT, Tablet, [facility]/pharmacy #[id number], replaces simvastatin, 157.5, cm, 11/26/22 14:11:00 EDT, Height Start Date: 11/19/23 Stop Date: 05/17/24 Status: Ordered BD Single Use Swab 70% topical pad See Instructions, TO CLEANS BEFORE INJECTIONS 5 X A DAY., # 150 Unknown, 11 Refills, Maintenance, 08/16/22 10:15:00 EDT, [facility], 30, TO CLEANS BEFORE INJECTIONS 5 X A DAY., 157.5, cm, 08/01/22 9:27:00 EDT, Height Start Date: 08/16/22 Status: Ordered busPIRone 5 mg oral tablet 5 mg, 1, tablet, By Mouth, 2 times a day, # 60 tablet, Refills 4, Tot. Refills 4, Maintenance, 04/30/23 7:27:00 EST, [id number] Partial fill upon patient request if the prescription is for a schedule II opioi... Start Date: 04/30/23 Stop Date: 09/27/23 Status: Ordered capsaicin 0.075% topical cream See Instructions, APPLY TO AFFECTED AREA TWICE A DAY, # 57 Gm, 4 Refills, Maintenance, 04/11/23 10:18:00 EST, [facility]13, 30, APPLY TO AFFECTED AREA TWICE A [...] Gm, 1 Refills, Maintenance, 12/14/22 6:14:00 EDT, [facility]/pharmacy #[id number], 30, APPLY TOPICALLY 4 TIMES A DAY NOT TO EXCEED 16 GRAMS/DAY/SING... Start Date: 12/14/22 Status: Ordered docusate sodium 100 mg oral capsule See Instructions, TAKE 1 CAPSULE BY MOUTH TWICE A DAY NEEDED FOR CONSTIPATION, # 60 capsule, 5 Refills, Maintenance, 07/03/22 18:20:00 EDT, [id number], Duplicate Rx. Original sent 07/03/22 with [...] each, 0 Refills, Maintenance, 09/20/22 9:36:00 EDT, [facility], 30, INHALE 1 PUFF BY MOUTH TWICE A DAY, 157.5, cm, 09/05/22 16:22:00 EDT, Height Start Date: 09/20/22 Status: Ordered fluticasone 50 mcg/inh nasal spray See Instructions, SPRAY 1 SPRAY INTO EACH NOSTRIL EVERY DAY, # 16 mL, 5 Refills, Maintenance, 07/05/22 16:20:00 EDT, [facility], 30, SPRAY 1 SPRAY INTO EACH NOSTRIL [...] Stop Date: 09/18/22 Status: Ordered [facility] Miscellaneous [facility] Miscellaneous, [...] tablet, 4 Refills, Maintenance, 03/11/23 15:50:00 EST, [facility] 97022, 157.5, cm, 02/19/23 9:20:00 EST, Height Start [...] mL, 6 Refills, Maintenance, 11/26/22 14:55:00 EDT, [facility], Partial fill upon patie... Start Date: 11/26/22 Status: Ordered lactase 3000 u oral tablet 3 tablet, By Mouth, 3 times a day with meals, X30 DAYS., # 120 tablet, 5 Refills, Maintenance, 04/25/23 15:25:00 EST, [facility] 8[facility]80, 157, cm, 04/17/23 7:57:00 EST, Height, 88.3, kg, 04/16/23 11:33:00 EST, Dry Weight Start Date: 04/25/23 Status: Ordered Lantus Solostar Pen 100 units/mL subcutaneous solution See Instructions, Take 45 units in the AM and 45 units daily at bedtime. E11.9., # 30 mL, 9 Refills, Maintenance, 11/26/22 14:55:00 EDT, [facility], Partial fill upon patient requestif the prescription is for a schedule II opioid lucas... Start Date: 11/26/22 Status: Ordered levothyroxine 0.137 mg oral tablet 1 tablet = 137 mcg, By Mouth, Daily, # 30 tablet, 2 Refills, Maintenance, 04/17/23 7:46:00 EST, Tablet, [facility]/pharmacy #[id number], Partial fill upon patient request if the [...] tablet, 1 Refills, Maintenance, 03/11/23 15:50:00 EST, [facility] 76659, 157.5, cm, 02/19/23 9:20:00 EST, Height Start Date: 03/11/23 Status: Ordered Lyrica 25 mg oral capsule See Instructions, 1 capsule By Mouth 1 time daily at bedtime. E11.9, # 30 each, 5 Refills, Maintenance, 01/21/23 15:40:00 EDT, Capsule, [facility]/pharmacy #[id number], Partial fill upon [...] 2 Refills, Soft Stop, 02/22/23 14:30:00 EST, [facility]/pharmacy #[id number], Partial fill upon patient request if the prescription is for a schedule II opioid drug., 157.5, cm, 02/19/23 9:20:00 EST, Height Start Date: 02/22/23 Status: Ordered [place]-3 Fish Oil 1000 mg oral capsule 1 [...] 05/01/21 Start Date: 06/02/21 Status: Ordered Pen [place], 31 G x 8 mm BD Ultra [...] 12/06/22 13:08:00 EDT, Route to Pharmacy Electronically, [facility]/pharmacy #[id number], Partial fill upon patient request if the prescription is for a schedule II opi... Start Date: 12/06/22 Stop Date: 05/05/23 Status: Ordered firewall administrator grabber tool firewall administrator grabber tool, See Instructions, # 1 each, Refills 0, Tot. Refills 0, Maintenance, please dispense one firewall administrator grabber tool, ICD 10 M54.6, length of [...] tablet, 10 Refills, Maintenance, 01/17/23 8:54:00 EDT, [facility], 157.5, cm, 12/28/22 15:12:00 EDT, Height Start Date: 01/17/23 Status: Ordered Trulicity Pen 4.5 mg/0.5 mL subcutaneous solution See Instructions, INJECT 4.5 MG SUBCUTANEOUSLY ONCE A WEEK, # 2 mL, 5 Refills, Maintenance, 11/21/22 8:33:00 EDT, [facility], 157.5, cm, 11/16/22 13:50:00 EDT, Height Start Date: 11/21/22 Status: Ordered valACYclovir 500 mg oral tablet 1, tablet, By Mouth, 2 times a day, PRN, # 6 tablet, Refills 1, Maintenance, NEEDED FOR OUTBREAKS, 05/03/23 8:37:00 EST, Route to Pharmacy Electronically, [facility] 28650, 157, cm, 04/17/23 7:57:00 EST, Height, 88.3, [...] Refills, Maintenance, 09/17/22 15:25:00 EDT, [facility], 157.5, cm, 09/05/22 16:22:00 EDT, Height Start [...] 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 *Briana Garces, Instrumentation Engineer, ICP [phone] Confirmed Active PTSD (post-traumatic stress disorder) Confirmed [...] recent to oldest [Reference Range]: 1 Height 157 cm (05/06/23 2:23 PM) Pulse Rate [55-90 bpm] 96 bpm *H* (05/06/23 2:23 PM) Blood Pressure [90-138/55-84 mm Hg] 120/ 79mm Hg (05/06/23 2:23 PM) Respiratory Rate [16-30 br/min] 16 br/mi n (05/06/23 2:23 PM) Temperature [96.8-100.4 DegF] 97.3 DegF (05/06/23 2:23 PM) Blood pressure sites Arm, right (05/06/23 2:23 PM) Temperature Route Temporal (05/06/23 2:23 PM) Social History Social History Type Response Smoking Status Never smoker entered on: 11/10/13 Sex Female Patient Care team information Care Team Personnel Name: Rose Mary FISCHER, Sergo Cole Position: [facility] Physician - Primary Care Member Role: PCP Address: Address: [address] [place] [address] Adult Medicine [place], [place] [address] Name: Lizbeth Collins [place] Position: [facility] RN Member Role: Primary Care Nurse Care Team Related Persons Name: LB HENLEY Address: home [address] [place] [address] Name: LB HENLEY Address: home [address] [address] Name: MILENA CUBA Address: home [address] [place] [address]
--- OUTSIDE RECORDS SUMMARY | 2024-01-23 14:29 | XMS_ITS | Continuity of Care Document ---
Author Organization [facility] Address [address] [place] [address]- Care Team Providers Care Financial Specialist Name Role Phone Rose Mary FISCHER, Sergo Cole Primary Care Physician Encounter [facility] Date(s): 06/27/20 - 07/27/20 [facility] [address] [place], [place] [address] Allergies, Adverse Reactions, Alerts Substance [...] 8 01/21/08 Given 1Result Comment: [01/22/2017] [facility] [id number] 2Admin Note: vis given dated 10/24/12 3Admin [...] mL, 5 Refills, Maintenance, 09/02/19 13:54:00 EDT, [facility], E11.9, 157.48, cm, 04/27/19 15:43:... [...] tablet, 3 Refills, Maintenance, 02/01/20 15:26:00 EST, [facility]/pharmacy #[id number], 157.48, cm, 01/25/20 15:23:00 EDT, Height Start Date: 02/01/20 Status: Ordered ammonium lactate 12% topical cream 1 application, Topically, 2 times a day, # 385 Gm, 5 Refills, Maintenance, 06/20/20 10:55:00 EDT, Cream, [facility]/pharmacy #[id number], Partial fill upon patient request if [...] Refills, Maintenance, 06/21/20 17:44:00 EDT, [facility], 157.48, cm, 05/31/20 9:41:00 EST, Height Start Date: 06/21/20 Status: Ordered atorvastatin 80 mg oral tablet 1 tablet = 80 mg, By Mouth, Daily, replaces Simvastatin, # 90 tablet, 4 Refills, Maintenance, 02/23/20 11:05:00 EST, Tablet, [facility]/pharmacy #[id number], replaces simvastatin, 157.48, cm, 01/25/20 15:23:00 EDT, Height Start Date: 02/23/20 Stop Date: 05/18/21 Status: Ordered atorvastatin 80 mg oral tablet 1 tablet = 80 mg, By Mouth, Daily, for 90 days, replaces Simvastatin, # 90 tablet, 4 Refills, Hard Stop 04/01/21 14:01:00 EST, 01/07/20 14:01:00 EDT, Tablet, [facility]/pharmacy #[id number], replaces simvastatin,157.48, cm, 12/29/19 15:55:00 EDT, Height Start Date: 01/07/20 Stop Date: 04/01/21 Status: Ordered BD ultra fine III pen needles [id number] BD ultra fine III pen needles [id number], See Instructions, # 360 each, Refills 3, [...] EDT, Supply Start Date: 11/24/19 Status: Ordered diazepam 5 mg oral tablet Refills 0, Maintenance, 05/30/17 11:18:02 Start Date: 05/30/17 Status: Ordered diclofenac 1% topical gel 1 application, Topically, 4 times a day, not to exceed 16 grams/day/single joint of lower extremities, # 100 Gm, 6 Refills, Maintenance, 06/27/20 15:14:00 EDT, Gel, [facility]/pharmacy #[id number], 157.48, cm, 05/31/20 9:41:00 EST, Height [...] 5 Refills, Maintenance, 01/07/20 14:00:00 EDT, Tablet, [facility]/pharmacy #4471, 157.48, cm, 12/29/19 15:55:00 EDT, Height [...] Gm, 5 Refills, Maintenance, 06/27/20 15:14:00 [facility]T, [id number], 1 sprays Nares, Both [...] 3, Maintenance, use up to check blood [id number] per day. 90 DAY SUPPLY, E11.9, 02/29/20 [...] mL, 2 Refills, Maintenance, 04/07/20 16:52:00 EST, [facility], Partial fill upon patient request [...] mL, 11 Refills, Maintenance, 09/02/19 13:55:00 EDT, [facility], NEEDS 30 ML FOR 30 [...] DAY, # 35.44 Gm, 11 Refills, Acute, [facility], 30, APPLY TO AFFECTED AREA 3 TIMES A DAY, 157.48, cm, 03/04/20 14:14:00 EST, Height Start Date: 05/10/20 Status: Ordered losartan 50 mg oral tablet 1 tablet, By Mouth, Daily, # 30 tablet, 5 Refills, Maintenance, 06/20/20 9:32:00 EDT, [facility] 63249, 157.48, cm, 05/31/20 9:41:00 EST, Height Start Date: 06/20/20 Status: Ordered mirtazapine 15 mg oral tablet TAKE 1 TABLET BY MOUTH EVERY DAY IN THE EVENING Start Date: 10/14/18 Status: Ordered multivitamin Multiple Vitamins oral tablet 1 tablet, By Mouth, Daily, Take it 2 hours separate from Orlistat ([place]), # 90 tablet, 4 Refills, Maintenance, 08/14/19 8:49:00 EDT, Tablet, [facility]/pharmacy #[id number], 1 tablet By Mouth Daily,x90 days,Instr:Take it 2 hours separate from Orlistat ([place]), 157.... Start Date: 08/14/19 Stop Date: 11/06/20 Status: Ordered oxyCODONE 5 mg oral tablet 5 mg, 1, tablet, By Mouth, Every 12 hours, PRN, Refills 0, Tot. Refills 0, Maintenance, as needed for pain, 02/16/19 14:51:00 EST, Partial fill upon patient request Start Date: 02/16/19 Status: Ordered Pen [place], 31 G x 8 mm BD Ultra [...] 11/17/20 13:36:00 EDT, 04/21/20 13:36:00 EST, Tablet, [facility]/pharmacy #[id number], 157.48, cm, 03/04/20... Start Date: 04/21/20 Stop Date: 11/17/20 Status: Ordered Topamax 25 mg oral tablet 2 tablet = 50 mg, By Mouth, Daily at bedtime, # 60 tablet, 6 Refills, Maintenance, 04/21/20 13:35:00 EST, Tablet, [facility]/pharmacy #[id number], 157.48, cm, 03/04/20 14:14:00 EST, Height Start Date: 04/21/20 Stop Date: 11/17/20 Status: Ordered Trulicity Pen 1.5 mg/0.5 mL subcutaneous solution 0.5 mL = 1.5 mg, Subcutaneous Injection, Every Saturday, for 90 days, # 7.5 mL, 3 Refills, Hard Stop 12/08/21 15:26:00 EDT, 12/13/20 15:26:00 EDT, Solution, [facility], E11.65, 157.48, cm, 04/27/19 15:43:00 EST, Height Start Date: 12/13/20 Stop Date: 12/08/21 Status: Ordered Trulicity Pen 1.5 mg/0.5 mL subcutaneous solution 0.5 mL = 1.5 mg, Subcutaneous Injection, Every Saturday, E11.9, # 7.5 mL, 3 Refills, Maintenance, 12/08/21 15:26:00 EDT, Solution, [facility], E11.65, 157.48, cm, 03/04/20 14:14:00 EST, Height Start Date: 12/08/21 Stop Date: 12/03/22 Status: Ordered Trulicity Pen 1.5 mg/0.5 mL subcutaneous solution 0.5 mL = 1.5 mg, Subcutaneous Injection, Every Saturday, for 90 days, # 6.5 mL, 5 Refills, Hard Stop 12/13/20 15:26:00 EDT, 06/22/19 15:26:00 EDT, Solution, [facility]/pharmacy #[id number], E11.65, 157.48, cm, 04/27/19 15:43:00 EST, Height Start Date: 06/22/19 Stop Date: 12/13/20 Status: Ordered valACYclovir 500 mg oral tablet See Instructions, TAKE 1 TABLET BY MOUTH TWICE A DAY FOR 3 DAYS NEEDED FOR OUTBREAK, # 6 tablet,Refills 2, Acute, Instructions Replace Required Details, Route to Pharmacy Electronically, [facility] 12745, 157.48, cm, 05/31/20 9:41:00 EST, Height Start Date: 06/27/20 Status: Ordered Vascepa 1 g oral capsule 2 capsule = 2 Gm, By Mouth, 2 times a day, # 360 capsule, 5 Refills, Maintenance, 05/03/20 15:59:00EST, Capsule, [facility]/pharmacy #[id number], 157.48, cm, 03/04/20 14:14:00 EST, Height [...] Active *Briana Garces, Care Coor dinator, ICP [phone](Confirmed) Active Reflux(Confirmed) Active 51600 -EF 60-65%. No wall motion abnormalities, Does [...]
--- OUTSIDE RECORDS SUMMARY | 2024-01-23 14:29 | XMS_ITS | Continuity of Care Document ---
Author Organization [facility] Address [address] [place] [address]- Care Team Providers Care Cardiopulmonary Technician Name Role Phone Rose Mary FISCHER, Sergo Cole Primary Care Physician Encounter [facility] Date(s): 08/27/23 - 09/26/23 [facility] [address] [place], [place] [phone] Allergies, Adverse Reactions, Alerts Substance Reaction Severity Status morphine ITCH DIARRHEA Active trazodone DEPRESSION Active Neurontin mental status changes Active Ultram nausea, vomit Active Latex powder eats up skin Active cortisone Active Motrin eat lining of stomach Active Naprosyn gi upset Active CeleBREX gi upset Active Vioxx heart problems Active Immunizations Given [...] 1Result Comment: [01/22/2017] [facility] [id number] 2Admin Note: vis given dated 10/24/12 3Admin [...] 1 Refills, Acute, 219:52:00 EDT, [facility], 157.48, cm, 10/11/20 9:39:00 EDT, Height Start [...] Date: 03/03/21 Stop Date: 02/26/22 Status: Ordered Iblbm-Vftoad-Rqnl 300 mg oral capsule 1 capsule, By Mouth, 2 times a day, NOT COVERED., # 60 capsule, 11 Refills, [facility], 157.48, cm, 01/27/21 9:30:00 EDT, Height Start Date: 01/30/21 Status: Ordered ammonium lactate 12% topical cream 1 application, Topically, 2 times a day, # 385 Gm, 1 Refills, Maintenance, 12/22/22 14:16:00 EDT, Cream, [facility]/pharmacy #[id number], Partial fill upon patient request if the prescription is for a schedule IIopioid drug., 1 application Topically 2 times a day... Start Date: 12/22/22 Stop Date: 02/20/23 Status: Ordered Artificial Tears preserved solution 1 drops, Eyes, Both, 2 times a day, PRN for dry eyes, # 15 mL, 0 Refills, Maintenance, 09/10/23 8:57:00 EDT, Solution, [facility]/pharmacy #[id number], Partial fill upon patient request if the prescription is fora schedule II opioid drug., 1 drops Eyes, Both 2 ti... Start Date: 09/10/23 Status: Ordered atorvastatin 80 mg oral tablet 1 tablet, By Mouth, Daily, INSTR:REPLACES SIMVASTATIN, # 90 tablet, 1 Refills, Maintenance, 05/22/23 12:07:00 EST, [facility], 157, cm, 05/06/23 14:23:00 EST, Height, 88.3, kg, 04/16/23 11:33:00EST, Dry Weight Start Date: 05/22/23 Status: Ordered BD Single Use Swab 70% topical pad See Instructions, TO CLEANS BEFORE INJECTIONS 5 X A DAY., # 150 Unknown, 11 Refills, Maintenance, 08/16/22 10:15:00 EDT, [facility], 30, TO CLEANS BEFORE INJECTIONS 5 X A DAY., 157.5, cm, 08/01/22 9:27:00 EDT, Height Start Date: 08/16/22 Status: Ordered busPIRone 5 mg oral tablet 5 mg, 1, tablet, By Mouth, 3 times a day, # 90 tablet, Refills 4, Tot. Refills 4, Maintenance, 09/10/23 10:46:00 EDT, Route to Pharmacy Electronically, [facility]/pharmacy #[id number], Partial fill upon patient request if the prescription is for a schedule II opio... Start Date: 09/10/23 Stop Date: 02/07/24 Status: Ordered capsaicin 0.075% topical cream See Instructions, APPLY TO AFFECTED AREA TWICE A DAY, # 57 Gm, 4 Refills, Maintenance, 04/11/23 10:18:00 EST, [facility], 30, APPLY TO AFFECTED AREA TWICE A [...] Refills, Maintenance, 07/02/23 18:31:00 EDT, [facility], 90, TAKE 1 TABLET BY MOUTH DAILY [...] 09/10/23 10:46:00 EDT, Route to Pharmacy Electronically, [facility]/pharmacy #[id number], Partial fill... Start Date: 09/10/23 Stop Date: 02/07/24 Status: Ordered diclofenac 1% topical gel See Instructions, APPLY TOPICALLY 4 TIMES A DAY NOT TO EXCEED 16 GRAMS/DAY/SINGLE JOINT OF LOWER EXTREMITIES, # 100 Gm, 4 Refills, Maintenance, 09/10/23 8:56:00 EDT, [facility]/pharmacy #[id number], 30, APPLY TOPICALLY 4 TIMES A [...] capsule, 5 Refills, Maintenance, 07/03/22 18:20:00 EDT, [facility]/pharmacy #[id number], Duplicate Rx. Original sent 07/03/22 with routing error. Re- sending to pharmacy, 157.5, cm... Start Date: 07/03/22 Status: Ordered esomeprazole 40 mg oral enteric coated capsule 1 capsule = 40 mg, By Mouth, Daily, # 90 capsule, 3 Refills, Maintenance, 09/25/23 16:33:00 EDT, [facility]/pharmacy #[id number], Partial fill upon patient request if the prescription is for a schedule II opioid drug., 157, cm, 09/25/23 16:26:00 EDT, Height, 84, k... Start Date: 09/25/23 Status: Ordered esomeprazole 40 mg oral enteric coated capsule 1 capsule = 40 mg, By Mouth, Daily, # 90 capsule, 1 Refills, Maintenance, 09/02/23 16:20:00 EDT, [facility]/pharmacy #[id number], Partial fill upon patient [...] Refills, Maintenance, 09/20/22 9:36:00 EDT, [facility], 30, INHALE 1 PUFF BY MOUTH TWICE A DAY, 157.5, cm, 09/05/22 16:22:00 EDT, Height Start Date: 09/20/22 Status: Ordered fluticasone 50 mcg/inh nasal spray See Instructions, SPRAY 1 SPRAY INTO EACH NOSTRIL EVERY DAY, # 16 mL, 5 Refills, Maintenance, 07/05/22 16:20:00 EDT, [facility], 30, SPRAY 1 SPRAY INTO EACH NOSTRIL [...] tablet, 4 Refills, Maintenance, 03/11/23 15:50:00 EST, [facility], 157.5, cm, 02/19/23 9:20:00 EST, Height Start [...] mL, 6 Refills, Maintenance, 07/24/23 13:20:00 EDT, [facility], Partial fill upon patient request if the prescription is for a schedule II opioid drug., 157, cm, 07/24/23 12:52:00... Start Date: 07/24/23 Status: Ordered hydrOXYzine hydrochloride 25 mg oral tablet 1 tablet = 25 mg, By Mouth, 2 times a day, as needed for anxiety, # 60 tablet, 4 Refills, Soft Stop, 09/10/23 10:47:00 EDT, Tablet, [facility]/pharmacy #[id number], Partial fill upon patient request if the prescription is for a schedule II opioid drug., 157, cm, 0... Start Date: 09/10/23 Stop Date: 02/07/24 Status: Ordered lactase 3000 u oral tablet 3 tablet, By Mouth, 3 times a day with meals, X30 DAYS., # 120 tablet, 5 Refills, Maintenance, 04/25/23 15:25:00 EST, [facility], 157, cm, 04/17/23 7:57:00 EST, Height, 88.3, kg, 04/16/23 11:33:00 EST, Dry Weight Start Date: 04/25/23 Status: Ordered Lantus Solostar Pen 100 units/mL subcutaneous solution See Instructions, Take 45 units in the AM and 45 units daily at bedtime. E11.9., # 30 mL, 9 Refills, Maintenance, 07/24/23 13:18:00 EDT, [facility], Partial fill upon patient requestif the prescription is for a schedule II opioid lucas... Start Date: 07/24/23 Status: Ordered levothyroxine 0.1 mg oral tablet 1 tablet = 100 mcg, By Mouth, Daily, # 30 tablet, 11 Refills, Maintenance, 07/25/23 8:52:00 EDT, [facility]/pharmacy #[id number], stop the 112mcg dose, 157, cm, 07/24/23 12:52:00 EDT, Height, 84, kg, 07/24/23 12:52:00 EDT, Dry Weight Start Date: 07/25/23 Stop Date: 07/19/24 Status: Ordered lidocaine 5% topical ointment See Instructions, APPLY TO AFFECTED AREA 3 TIMES A DAY, # 35.44 Gm, 11 Refills, Maintenance, 02/28/22 8:51:00 EST, [facility]/pharmacy #[id number], 30, APPLY TO AFFECTED AREA 3 TIMES A DAY, 157.5, cm, 02/21/22 14:36:00 EST, Height Start Date: 02/28/22 Status: Ordered lidocaine 5% topical ointment See Instructions, APPLY TO AFFECTED AREA 3 TIMES A DAY, # 35.44 Gm, 11 Refills, Maintenance, 07/03/22 18:22:00 EDT, [facility]/pharmacy #[id number], 30, Duplicate Rx. Original sent 07/03/22 with routing error. Re-sending to pharmacy, APPLY TO AFFECTED AREA 3 TIMES A... Start Date: 07/03/22 Status: Ordered losartan 50 mg oral tablet See Instructions, TAKE 1 TABLET BY MOUTH EVERY DAY, # 90 tablet, 1 Refills, Maintenance, 03/11/23 15:50:00 EST, [facility], 157.5, cm, 02/19/23 9:20:00 EST, Height Start Date: 03/11/23 Status: Ordered Lyrica 25 mg oral capsule See Instructions, 1 capsule By Mouth 1 time daily at bedtime. E11.9, # 30 each, 2 Refills, Maintenance, 08/08/23 11:19:00 EDT, Capsule, [facility]/pharmacy #[id number], Partial fill upon patient request if the prescription is for a schedule II opioid drug., 157, c... Start Date: 08/08/23 Status: Ordered mirtazapine 15 mg oral tablet 1 tablet = 15 mg, By Mouth, Daily at bedtime, # 30 tablet, 4 Refills, Maintenance, 09/10/23 10:47:00 EDT, Tablet, [facility]/pharmacy #[id number], Partial fill upon patient request if the prescription is for a schedule II opioid drug., 157, cm, 09/10/23 8:42:00 ED... Start Date: 09/10/23 Stop Date: 02/07/24 Status: Ordered Narcan 4 mg/0.1 mL nasal spray = 4 mg, Nares, Both, Once, # 2 each, 2 Refills, Soft Stop, 02/22/23 14:30:00 EST, [facility]/pharmacy #[id number], Partial fill upon patient request if the prescription is for a schedule II opioid drug., 157.5, cm, 02/19/23 9:20:00 EST, Height Start Date: 02/22/23 Status: Ordered [place]-3 Fish Oil 1000 mg oral capsule 1 capsule = 1,000 mg, By Mouth, Daily, # 90 capsule, 1 Refills, Maintenance, 08/01/22 10:17:00 EDT,[facility]/pharmacy #[id number], Partial fill upon patient [...] tablet, 2 Refills, Maintenance, 07/03/23 14:40:00 EDT, [facility], 157, cm, 06/24/23 14:54:00 EDT, Height, 88.3, [...] mL, 11 Refills, Maintenance, 08/23/23 11:17:00 EDT, [facility], Partial fill upon patient request if... Start Date: 08/23/23 Status: Ordered Pen [place], 31 G x 8 mm BD Ultra [...] 09/10/23 10:47:00 EDT, Route to Pharmacy Electronically, [facility]/pharmacy #[id number], Partial fill upon patient request if the prescription is for a schedule II opi... Start Date: 09/10/23 Stop Date: 02/07/24 Status: Ordered telephone interviewer grabber tool telephone interviewer grabber tool, See Instructions, # 1 each, Refills 0, Tot. 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 *Briana Garces, Retail Field Representative, ICP [phone] Confirmed Active PTSD (post-traumatic stress disorder) Confirmed [...] Mary FISCHER, Sergo Cole Position: [facility] Physician - Primary Care Member Role: PCP Address: Address: [address] [facility] [place] [address]- Name: Lizbeth Collins [place] Position: [facility] Office Staff Member Role: Primary Care Nurse Care Team Related Persons Name: LB HENLEY Address: home [address] [place] [address] Name: LB HENLEY Address: home [address] [address] Name: MILENA CUBA Address: home [address] [place] [address]
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
--- OUTSIDE RECORDS SUMMARY | 2024-01-23 14:29 | XMS_ITS | Continuity of Care Document ---
Author Organization [facility] Address [address], [address], [address] [place] [address]- Care Team Providers Care Telephone Operators Supervisor Name Role Phone Sergo Bazzi MD Primary Care Physician [phone] Encounter [facility] Date(s): 08/15/23 - 08/22/23 [facility] [address] [place], [place] [address] Attending Physician: Not on Staff, Attending [...] Give n influenza virus vaccine, inactivated 01/12/20 Gilebrto rded influenza virus vaccine, inactivated 02/16/19 Give [...] Comment: [01/22/2017] [facility] [id number] 2Admin Note: vis given dated 10/24/12 3Admin [...] 1 Refills, Acute, 219:52:00 EDT, [facility], 157.48, cm, 10/11/20 9:39:00 EDT, Height Start [...] Date: 03/03/21 Stop Date: 02/26/22 Status: Ordered Crmke-Jxoesp-Pqvd 300 mg oral capsule 1 capsule, By Mouth, 2 times a day, NOT COVERED., # 60 capsule, 11 Refills, [facility], 157.48, cm, 01/27/21 9:30:00 EDT, Height Start Date: 01/30/21 Status: Ordered ammonium lactate 12% topical cream 1 application, Topically, 2 times a day, # 385 Gm, 1 Refills, Maintenance, 12/22/22 14:16:00 EDT, Cream, [facility]/pharmacy #[id number], Partial fill upon patient request if the prescription is for a schedule IIopioid drug., 1 application Topically 2 times a day... Start Date: 12/22/22 Stop Date: 02/20/23 Status: Ordered atorvastatin 80 mg oral tablet 1 tablet, By Mouth, Daily, INSTR:REPLACES SIMVASTATIN, # 90 tablet, 1 Refills, Maintenance, 05/22/23 12:07:00 EST, [facility] ST[facility] 8[facility], 157, cm, 05/06/23 14:23:00 EST, Height, 88.3, kg, 04/16/23 11:33:00EST, Dry Weight Start Date: 05/22/23 Status: Ordered BD Single Use Swab 70% topical pad See Instructions, TO CLEANS BEFORE INJECTIONS 5 X A DAY., # 150 Unknown, 11 Refills, Maintenance, 08/16/22 10:15:00 EDT, [facility], 30, TO CLEANS BEFORE INJECTIONS 5 X A DAY., 157.5, cm, 08/01/22 9:27:00 EDT, Height Start Date: 08/16/22 Status: Ordered busPIRone 5 mg oral tablet 5 mg, 1, tablet, By Mouth, 3 times a day, # 90 tablet, Refills 4, Tot. Refills 4, Maintenance, 09/27/23 7:27:00 EDT, Route to Pharmacy Electronically, [facility]/pharmacy #[id number], Partial fill upon patient request if the prescription is for a schedule II opioi... Start Date: 09/27/23 Stop Date: 02/24/24 Status: Ordered busPIRone 5 mg oral tablet 5 mg, 1, tablet, By Mouth, 2 times a day, for 30 days, # 60 tablet, Refills 4, Tot. Refills 4, HardStop 09/27/23 7:27:00 EDT, 04/30/23 7:27:00 EST, Route to Pharmacy Electronically, [facility]/pharmacy #[id number], Partial fill upon patient request if the prescri... Start Date: 04/30/23 Stop Date: 09/27/23 Status: Ordered capsaicin 0.075% topical cream See Instructions, APPLY TO AFFECTED AREA TWICE A DAY, # 57 Gm, 4 Refills, Maintenance, 04/11/23 10:18:00 EST, [facility], 30, APPLY TO AFFECTED AREA TWICE A [...] Refills, Maintenance, 07/02/23 18:31:00 EDT, [facility], 90, TAKE 1 TABLET BY MOUTH DAILY 2 HOURS SEPARATE FROM ORLISTAT, 157, cm, 06/24/23 14:54:00 EDT, Height, 88.3, kg, ... Start Date: 07/02/23 Stop Date: 07/02/23 Status: Ordered Debrox 6.5% solution 5 drops, Ears, Both, 2 times a day, for 7 days, # 15 mL, 0 Refills, Acute 08/23/23 10:33:00 EDT, 08/16/23 10:33:00 EDT, Solution, [facility]/pharmacy #[id number], Partial fill upon patient request if the prescription is for a schedule II opioid drug., 5 drops Ears... Start Date: 08/16/23 Stop Date: 08/23/23 Status: Ordered diazepam 5 mg oral tablet 5 mg, 1, tablet, By Mouth, 2 times a day, for 30 days, TAKE 1 TABLET BY MOUTH TWICE A DAY., # 60 tablet, Refills 4, Tot. Refills 4, Acute 01/28/24 16:26:00 EDT, 08/31/23 16:26:00 EDT, Route to Pharmacy Electronically, [facility]/pharmacy #[id number], Partial fill... Start Date: 08/31/23 Stop Date: 01/28/24 Status: Ordered diazepam 5 mg oral tablet 5 mg, 1, tablet, By Mouth, 2 times a day, for 30 days, TAKE 1 TABLET BY MOUTH TWICE A DAY., # 60 tablet, Refills 1, Tot. Refills 1, Acute 08/31/23 16:26:00 EDT, 07/02/23 16:26:00 EDT, Route to Pharmacy Electronically, [facility]/pharmacy #[id number], Partial fill... Start Date: 07/02/23 Stop Date: 08/31/23 Status: Ordered diclofenac 1% topical gel See Instructions, APPLY TOPICALLY 4 TIMES A DAY NOT TO EXCEED 16 GRAMS/DAY/SINGLE JOINT OF LOWER EXTREMITIES, # 100 Gm, 1 Refills, Maintenance, 12/14/22 6:14:00 EDT, [facility]/pharmacy #[id number], 30, APPLY TOPICALLY 4 TIMES [...] 5 Refills, Maintenance, 07/03/22 18:20:00 EDT, [facility]/pharmacy #[id number], Duplicate Rx. Original sent 07/03/22 with routing error. Re- sending to pharmacy, 157.5, cm... Start Date: 07/03/22 Status: Ordered esomeprazole 40 mg oral enteric coated capsule 1 capsule = 40 mg, By Mouth, Daily, # 90 capsule, 1 Refills, Maintenance, 03/07/23 13:32:00 EST, [facility]/pharmacy #[id number], Partial fill upon patient request [...] each, 0 Refills, Maintenance, 09/20/22 9:36:00 EDT, [facility], 30, INHALE 1 PUFF BY MOUTH TWICE A DAY, 157.5, cm, 09/05/22 16:22:00 EDT, Height Start Date: 09/20/22 Status: Ordered fluticasone 50 mcg/inh nasal spray See Instructions, SPRAY 1 SPRAY INTO EACH NOSTRIL EVERY DAY, # 16 mL, 5 Refills, Maintenance, 07/05/22 16:20:00 EDT, [facility], 30, SPRAY 1 SPRAY INTO EACH NOSTRIL [...] 4 Refills, Maintenance, 03/11/23 15:50:00 EST, [facility] ST[facility] 72152, 157.5, cm, 02/19/23 9:20:00 EST, Height Start [...] mL, 6 Refills, Maintenance, 07/24/23 13:20:00 EDT, [facility], Partial fill upon patient request if the prescription is for a schedule II opioid drug., 157, cm, 07/24/23 12:52:00... Start Date: 07/24/23 Status: Ordered hydrOXYzine hydrochloride 25 mg oral tablet 1 tablet = 25 mg, By Mouth, 2 times a day, as needed for anxiety, # 60 tablet, 4 Refills, Soft Stop, 07/10/23 11:33:00 EDT, Tablet, [facility]/pharmacy #[id number], Partial fill upon patient request if the prescription is for a schedule II opioid drug., 157, cm, 0... Start Date: 07/10/23 Stop Date: 12/07/23 Status: Ordered lactase 3000 u oral tablet 3 tablet, By Mouth, 3 times a day with meals, X30 DAYS., # 120 tablet, 5 Refills, Maintenance, 04/25/23 15:25:00 EST, [facility], 157, cm, 04/17/23 7:57:00 EST, Height, 88.3, kg, 04/16/23 11:33:00 EST, Dry Weight Start Date: 04/25/23 Status: Ordered Lantus Solostar Pen 100 units/mL subcutaneous solution See Instructions, Take 45 units in the AM and 45 units daily at bedtime. E11.9., # 30 mL, 9 Refills, Maintenance, 07/24/23 13:18:00 EDT, [facility], Partial fill upon patient requestif the prescription is for a schedule II opioid lucas... Start Date: 07/24/23 Status: Ordered levothyroxine 0.1 mg oral tablet 1 tablet = 100 mcg, By Mouth, Daily, # 30 tablet, 11 Refills, Maintenance, 07/25/23 8:52:00 EDT, [facility]/pharmacy #[id number], stop the 112mcg dose, 157, cm, 07/24/23 12:52:00 EDT, Height, 84, kg, 07/24/23 12:52:00 EDT, Dry Weight Start Date: 07/25/23 Stop Date: 07/19/24 Status: Ordered lidocaine 5% topical ointment See Instructions, APPLY TO AFFECTED AREA 3 TIMES A DAY, # 35.44 Gm, 11 Refills, Maintenance, 02/28/22 8:51:00 EST, [facility]/pharmacy #[id number], 30, APPLY TO AFFECTED AREA [...] tablet, 1 Refills, Maintenance, 03/11/23 15:50:00 EST, [facility] 320[facility], 157.5, cm, 02/19/23 9:20:00 EST, Height Start Date: 03/11/23 Status: Ordered Lyrica 25 mg oral capsule See Instructions, 1 capsule By Mouth 1 time daily at bedtime. E11.9, # 30 each, 2 Refills, Maintenance, 08/08/23 11:19:00 EDT, Capsule, [id number], Partial fill upon [...] EST, Height Start Date: 02/22/23 Status: Ordered [place]-3 Fish Oil 1000 mg oral capsule 1 [...] Refills, Maintenance, 07/03/23 14:40:00 EDT, [facility], 157, cm, 06/24/23 14:54:00 EDT, Height, 88.3, kg, 04/16/23 11:33:00 EST, Dry Weight Start Date: 07/03/23 Stop Date: 07/13/23 Status: Ordered oxyCODONE 10 mg oral tablet TAKE 1/2 TAB EVERY 12 HOURS NEEDED FOR SEVERE NECK/LOW BACK PAIN. DO NOT FILL UNTIL 05/01/21 Start Date: 06/02/21 Status: Ordered Pen [place]ang, 31 G x 8 mm BD Ultra [...] 07/09/23 9:37:00 EDT, Route to Pharmacy Electronically, [facility]/pharmacy #[id number], Partial fill upon patient request if the prescription is for a schedule II opio... Start Date: 07/09/23 Stop Date: 12/06/23 Status: Ordered manager mechanical maintenance grabber tool manager mechanical maintenance grabber tool, See Instructions, # 1 each, Refills 0, Tot. Refills 0, Maintenance, please dispense one manager mechanical maintenance grabber tool, ICD 10 M54.6, length of [...] 10 Refills, Maintenance, 08/15/23 14:04:00 EDT, [facility]/pharmacy #[id number], 157, cm, 07/24/23 12:52:00 EDT, Height, 84, kg, 07/24/23 12:52:00 EDT, Dry Weight Start Date: 08/15/23 Status: Ordered Trulicity Pen 4.5 mg/0.5 mL subcutaneous solution See Instructions, INJECT 4.5 MG SUBCUTANEOUSLY ONCE A WEEK, # 2 mL, 10 Refills, Maintenance, 06/10/23 12:32:00 EDT, [facility], 157, cm, 05/06/23 14:23:00 EST, Height, 88.3, kg, 04/16/23 11:33:00 EST, Dry Weight Start Date: 06/10/23 Status: Ordered valACYclovir 500 mg oral tablet 1, tablet, By Mouth, 2 times a day, PRN, # 6 tablet, Refills 0, Maintenance, NEEDED FOR OUTBREAKS, 08/05/23 15:33:00 EDT, Route to Pharmacy Electronically, [facility] STORE 87823, 157, cm, 07/24/23 12:52:00 EDT, Height, 84, kg, 07/24/23 12:52:00 EDT, Dry... 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 No wall motion abnormalities, Does [...] Primary Care Member Role: PCP Address: Address: [address] [place] [address] [place] [address]- Name: Lizbeth Collins [place] Position: [facility] Office Staff Member Role: Primary Care Nurse Care Team Related Persons Name: LB HENLEY Address: home [address] [address] Name: LB HENLEY Address: [address] [place] [address] Name: MILENA CUBA Address: [address] [place] [address]
--- OUTSIDE RECORDS SUMMARY | 2024-01-23 14:29 | XMS_ITS | Continuity of Care Document ---
Author Organization [facility] Address [address] [place] [address]- Care Team Providers Care Observer Electrical Prospecting Name Role Phone Diann REIS, Anyi Primary Care Physician Encounter [facility] Date(s): 06/11/22 - 07/11/22 [facility] [address] [place], [place] [address] Allergies, Adverse Reactions, Alerts Substance Reaction Severity Status morphine ITCH DIARRHEA Active cortisone Active Naprosyn gi upset Active Ultram nausea, vomit Active Vioxx heart problems Active Latex powder eats up skin Active CeleBREX gi upset Active trazodone DEPRESSION Active Motrin eat lining of stomach Active Neurontin mental status changes Active Immunizations Given and Recorded Vaccine Date [...] [facility][NOTE 3] [id number] 2Admin Note: vis given dated 10/24/12 3Admin Note: vis given dated 10/01/11 4Admin Note: vis 5Admin Note: vis 6Admin Note: vis given: 10/27/2006 7Admin Note: vis given : 10/10/2005 8Admin Note: vis given 2007- Medications acetaminophen 500 mg oral tablet 2 tablet, By Mouth, 4 times a day, PRN NEEDED FOR PAIN, # 100 tablet, 1 Refills, Acute, 219:52:00 EDT, [facility], 157.48, cm, 10/11/20 9:39:00 EDT, Height Start Date: 10/26/20 Status: Ordered Alcohol Pads See Instructions, # 200 each, Refills 11, Tot. Refills 11, Maintenance, To cleans before injections5 x a day., 03/03/21 9:18:00 EST, E11.65, Compound, 157.48, cm, 03/01/21 15:54:00 EST, Height Start Date: 03/03/21 Stop Date: 02/26/22 Status: Ordered Ymauq-Hmzihy-Azgh 300 mg oral capsule 1 capsule, By Mouth, 2 times a day, NOT COVERED., # 60 capsule, 11 Refills, [facility], 157.48, cm, 01/27/21 9:30:00 EDT, Height Start [...] Refills, Maintenance, 03/05/22 13:29:00 EST, [facility], 30, APPLY TO AFFECTED AREA TWICE A [...] tablet, 11 Refills, Maintenance, 07/09/22 10:30:00 EDT, [facility]/pharmacy #[id number], 30, 1 tablet By Mouth [...] Replace Required Details, Route to Pharmacy Electronically, [facility]/pharmacy... Start Date: 05/02/22 Status: Ordered diclofenac 1% topical gel See Instructions, APPLY TOPICALLY 4 TIMES A DAY NOT TO EXCEED 16 GRAMS/DAY/SINGLE JOINT OF LOWER EXTREMITIES, # 100 Gm, 6 Refills, Maintenance, 03/19/22 9:28:00 EST, [facility], 30, APPLY TOPICALLY 4 TIMES A DAY NOT TO EXCEED 16 GRAMS/DAY/SINGLE... Start Date: 03/19/22 Status: Ordered docusate sodium 100 mg oral capsule See Instructions, TAKE 1 CAPSULE BY MOUTH TWICE A DAY NEEDED FOR CONSTIPATION, # 60 capsule, 5 Refills, Maintenance, 07/03/22 18:20:00 EDT, [facility]/pharmacy #[id number], Duplicate Rx. Original sent 07/03/22 with routing error. Re- sending to pharmacy, 157.5, cm... Start Date: 07/03/22 Status: Ordered docusate sodium 100 mg oral capsule 100 mg, 1, capsule, By Mouth, 2 times a day, PRN, # 60 capsule, Refills 5, Tot. Refills 5, Maintenance, as needed for constipation, 06/12/22 9:52:00 EDT, Route to Pharmacy Electronically, [facility]/pharmacy #[id number], Partial fill upon patient request [...] each, 0 Refills, Maintenance, 03/22/22 16:35:00 EST, [facility], 30, INHALE 1 PUFF BY MOUTH TWICE A DAY, 157.5, cm, 03/22/22 13:25:00 EST, Height Start Date: 03/22/22 Status: Ordered fluticasone 50 mcg/inh nasal spray See Instructions, SPRAY 1 SPRAY INTO EACH NOSTRIL EVERY DAY, # 16 mL, 5 Refills, Maintenance, 07/05/22 16:20:00 EDT, [facility], 30, SPRAY 1 SPRAY INTO EACH NOSTRIL [...] mL, 6 Refills, Maintenance, 06/12/22 10:00:00 EDT, [facility], Partial fill upon patie... Start Date: 06/12/22 Status: Ordered Lantus Solostar Pen 100 units/mL subcutaneous solution See Instructions, Take 45 units in the AM and 45 units daily at bedtime. E11.9., # 30 mL, 9 Refills, Maintenance, 06/19/22 16:50:00 EDT, [facility], Partial fill upon patient requestif the prescription is for a schedule II opioid lucas... Start Date: 06/19/22 Status: Ordered lidocaine 5% topical ointment See Instructions, APPLY TO AFFECTED AREA 3 TIMES A DAY, # 35.44 Gm, 11 Refills, Maintenance, 02/28/22 8:51:00 EST, [facility]/pharmacy #[id number], 30, APPLY TO AFFECTED AREA 3 TIMES A DAY, 157.5, cm, 02/21/22 14:36:00 EST, Height Start Date: 02/28/22 Status: Ordered lidocaine 5% topical ointment See Instructions, APPLY TO AFFECTED AREA 3 TIMES A DAY, # 35.44 Gm, 11 Refills, Maintenance, 07/03/22 18:22:00 EDT, [facility]/pharmacy #[id number], 30, Duplicate Rx. Original sent 07/03/22 with routing error. Re-sending to pharmacy, APPLY TO AFFECTED AREA 3 TIMES A... Start Date: 07/03/22 Status: Ordered losartan 50 mg oral tablet 1 tablet, By Mouth, Daily, # 90 tablet, 1 Refills, Maintenance, 07/11/22 15:04:00 EDT, [facility]/pharmacy#[id number], 157.5, cm, 06/21/22 8:43:00 EDT, Height Start Date: 07/11/22 Status: Ordered Lyrica 25 mg oral capsule See Instructions, 1 capsule By Mouth 1 time daily at bedtime. E11.9, # 30 each, 5 Refills, Maintenance, 05/01/22 18:04:00 EST, Capsule, [facility]/pharmacy #[id number], Partial fill upon patient request if the prescription is for a schedule II opioid drug., 157.5,... Start Date: 05/01/22 Status: Ordered mirtazapine 15 mg oral tablet 1 tablet = 15 mg, By Mouth, Daily at bedtime, # 30 tablet, 4 Refills, Maintenance, 05/02/22 14:02:00 EST, Tablet, [facility]/pharmacy #[id number], Partial fill upon patient request if the prescription is for a schedule II opioid drug., 157.5, cm, 04/11/22 10:50:00... Start Date: 05/02/22 Stop Date: 09/29/22 Status: Ordered omeprazole 20 mg oral delayed release tablet 1 tablet = 20 mg, By Mouth, 2 times a day, do not crush or chew, # 60 tablet, 2 Refills, Maintenance, 06/14/22 16:40:00 EDT, EC Tablet, [facility]/pharmacy #[id number], Partial fill upon patient request if the prescription is for a schedule II opioid drug., 157.5,... Start Date: 06/14/22 Status: Ordered oxyCODONE 10 mg oral tablet TAKE 1/2 TAB EVERY 12 HOURS NEEDED FOR SEVERE NECK/LOW BACK PAIN. DO NOT FILL UNTIL 05/01/21 Start Date: 06/02/21 Status: Ordered Pen [place], 31 G x 8 mm BD Ultra [...] 05/02/22 14:40:00 EST, Route to Pharmacy Electronically, [facility]/pharmacy #[id number], Partial fill upon patient request if the prescription is for a schedule II opi... Start Date: 05/02/22 Status: Ordered chemical dependency nurse grabber tool chemical dependency nurse grabber tool, See Instructions, # 1 each, Refills 0, Tot. Refills 0, Maintenance, please dispense one chemical dependency nurse grabber tool, ICD 10 M54.6, length [...] 10:05:00 EDT, 06/12/22 10:05:00 EDT, Chew Tablet, [facility], Partial fill upon [...] Stop 12/15/22 14:36:00 EDT, 04/19/22 14:36:00 EST, [facility]/pharmacy #[id number], 157.5, cm, 04/11/22 10:50:00 EST, Height Start Date: 04/19/22 Stop Date: 12/15/22 Status: Ordered Topamax 25 mg oral tablet 3 tablet = 75 mg, By Mouth, Daily at bedtime, # 90 tablet, 6 Refills, Maintenance, 06/26/22 10:14:00 EDT, Tablet, [facility], 157.5, cm, 06/21/22 8:43:00 EDT, Height Start Date: 06/26/22 Stop Date: 01/22/23 Status: Ordered Trulicity Pen 3 mg/0.5 mL subcutaneous solution See Instructions, INJECT 0.5ML SUBCUTANEOUSLY EVERY WEEK, ROTATE INJECTION SITES, # 2 mL, 5 Refills, 01/23/22 16:33:00 EDT, [facility], 157.5, cm, 01/20/22 13:38:00 EDT, Height Start Date: 01/23/22 Status: Ordered Trulicity Pen 4.5 mg/0.5 mL subcutaneous solution See Instructions, 4.5 mg Subcutaneous Infusion weekly. E11.9, # 4 each, 5 Refills, Maintenance, 06/19/22 17:00:00 EDT, [facility], Partial fill upon patient request if the prescription is for a schedule II opioid drug., 157.5, cm, ... Start Date: 06/19/22 Status: Ordered valACYclovir 500 mg oral tablet 1, tablet, By Mouth, 2 times a day, PRN, # 6 tablet, Refills 2, Maintenance, NEEDED FOR OUTBREAKS, 07/11/22 16:11:00 EDT, Route to Pharmacy Electronically, [facility], 157.5, cm, 06/21/22 8:43:00 EDT, Height Start Date: 07/11/22 Stop Date: 07/14/22 Status: Ordered Vascepa 1 g oral capsule 2 capsule = 2 Gm, By Mouth, 2 times a day, # 360 capsule, 5 Refills, Maintenance, 05/03/20 15:59:00EST, Capsule, [facility]/pharmacy #[id number], 157.48, cm, 03/04/20 14:14:00 EST, Height Start Date: 05/03/20 Status: Ordered Ventolin HFA 108 mcg/inh inhalation aerosol with adapter 1 puffs, Inhalation, 4 times a day, PRN NEEDED FOR WHEEZING, # 18 each, 0 Refills, Maintenance, 04/04/22 12:59:00 EST, [facility], 157.5, cm, 03/22/22 13:25:00 EST, Height Start [...] 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 No wall motion abnormalities, Does [...] Care Team Personnel Name: Lizbeth Barnhart Position: [facility] RN Member Role: Primary Care Nurse Name: Anyi Tidwell NP Position: [facility] Associate Professional Member Role: PCP Address: Address: [address] [place] [address]- Care Team Related Persons Name: LB HENLEY Address: home [address] [address] Name: LB HENLEY Address: [address] [place] [address] Name: MILENA CUBA Address: [address] [place] [address]
--- OUTSIDE RECORDS SUMMARY | 2024-01-23 14:29 | XMS_ITS | Continuity of Care Document ---
Author Organization [facility] Address [address] [place] [address]- Care Team Providers Care Bowl Attendant Name Role Phone Rose Mary FISCHER, Sergo Cole Primary Care Physician Encounter [facility] Date(s): 07/25/21 - 08/24/21 [facility] [address] [place], [place] [address] Attending Physician: Broderick Washburn Admitting Physician: AdmBroderick [...] Comment: [01/22/2017] [facility] [id number] 2Admin Note: vis given dated 10/24/12 3Admin Note: vis given dated 10/01/11 4Admin Note: vis 5Admin Note: vis 6Admin Note: vis given: 10/27/2006 7Admin Note: vis given : 10/10/2005 8Admin Note: vis given 2007- Medications acetaminophen 500 mg oral tablet 2 tablet, By Mouth, 4 times a day, PRN NEEDED FOR PAIN, # 100 tablet, 1 Refills, Acute, 219:52:00 EDT, [facility] ST[facility] 89002, 157.48, cm, 10/11/20 9:39:00 EDT, Height Start Date: 10/26/20 Status: Ordered Alcohol Pads See Instructions, # 200 each, Refills 11, Tot. Refills 11, Maintenance, To cleans before injections5 x a day., 03/03/21 9:18:00 EST, E11.65, Compound, 157.48, cm, 03/01/21 15:54:00 EST, Height Start Date: 03/03/21 Stop Date: 02/26/22 Status: Ordered Kxuxm-Zuxqlf-Nhqg 300 mg oral capsule 1 capsule, By Mouth, 2 times a day, NOT COVERED., # 60 capsule, 11 Refills, [facility] STORE 50851, 157.48, cm, 01/27/21 9:30:00 EDT, Height Start Date: 01/30/21 Status: Ordered ammonium lactate 12% topical cream 1 application, Topically, 2 times a day, # 385 Gm, 5 Refills, Maintenance, 12/19/20 14:08:00 EDT, Cream, [facility]/pharmacy #7621, Partial fill upon patient request if the prescription is for a schedule IIopioid drug., 1 application Topically 2 times a day... Start Date: 12/19/20 Stop Date: 06/17/21 Status: Ordered aspirin 81 mg oral delayed release tablet 1 tablet, By Mouth, Daily, # 30 tablet, 11 Refills, Maintenance, 06/21/20 17:44:00 EDT, [facility] STORE 87253, 157.48, cm, 05/31/20 9:41:00 EST, Height Start Date: 06/21/20 Status: Ordered atorvastatin 80 mg oral tablet 1 tablet = 80 mg, By Mouth, Daily, replaces Simvastatin, # 90 tablet, 4 Refills, Maintenance, 06/02/21 14:22:00 EST, Tablet, [facility]/pharmacy #4471, replaces simvastatin, 157.48, cm, 06/02/21 14:20:00 EST, Height Start Date: 06/02/21 Stop Date: 08/26/22 Status: Ordered capsaicin 0.075% topical cream See Instructions, APPLY TO AFFECTED AREA TWICE A DAY, # 57 Gm, 4 Refills, [facility] 79497, 30, APPLY TO AFFECTED AREA TWICE A DAY, 157.48, cm, 11/11/20 9:37:00 EDT, Height Start Date: 01/02/21 Status: Ordered Daily David oral tablet 1 tablet, By Mouth, Daily, INSTR:TAKE IT 2 HOURS SEPARATE FROM ORLISTAT ([place]), # 30 tablet, 11 Refills, Maintenance, 08/19/20 16:26:00 EDT, [facility] 30256, 30, TAKE 1 TABLET BY MOUTH DAILY. [...] 6 Refills, Maintenance, 09/02/20 12:50:00 EDT, Gel, [facility]/pharmacy #4471, 157.48, cm, 05/31/20 9:41:00 EST, [...] EVERY DAY, # 16 mL, 5 Refills, [facility] 44076, 30, USE 1 SPRAY IN EACH NOSTRIL [...] 3, Maintenance, use up to check blood [id number] per day. 90 DAY SUPPLY, E11.9, 03/03/21 [...] incontinence Dx: Fecal incontinence R15.9 Duration: Lifetime, 02/04/22 14:43:00 EST, Supply Start Date: 05/05/21 Status: Ordered Insulin Lispro KwikPen 100 units/mL injectable solution See Instructions, Use according to sliding scale via Subcutaneous Injection 3 times a day before meals, # 15 mL, 6 Refills, Maintenance, 08/24/21 9:25:00 EDT, [facility], Partial fill upon patient request if the prescription is for a... Start Date: 08/24/21 Status: Ordered Lantus Solostar Pen 100 units/mL subcutaneous solution See Instructions, Take 80 units via Subcutaneous Infusion Daily at bedtime. E11.9., # 30 mL, 9 Refills, Maintenance, 08/24/21 9:25:00 EDT, [facility], Partial fill upon patient request if the prescription is for a schedule II opioid d... Start Date: 08/24/21 Status: Ordered Lantus Solostar Pen 100 units/mL subcutaneous solution See Instructions, Decreased to 60U once a day as of 12/29/19, # 30 mL, 9 Refills, Maintenance, 09/20/20 15:10:00 EDT, [facility], NEEDS 30 ML FOR 30 [...] 0 Refills, Maintenance, 12/19/20 14:08:00 EDT, Film, [facility]/pharmacy #[id number], Partial fill upon patient request if the prescription is for a schedule II opioid drug., 1 patch Topically Daily, 157.48, cm, 11/11/20 9:37:0... Start Date: 12/19/20 Status: Ordered losartan 50 mg oral tablet 1 tablet, By Mouth, Daily, # 30 tablet, 2 Refills, [facility] STORE 68983, 157.48, cm, 05/05/21 9:51:00 EST, Height Start Date: 05/12/21 Status: Ordered mirtazapine 15 mg oral tablet 0 Refills, Maintenance, 06/02/21 14:25:00 EST, Partial fill upon patient request if the prescription is for a schedule II opioid drug. Start Date: 06/02/21 Status: Ordered omeprazole 20 mg oral enteric coated capsule 1 capsule, By Mouth, 2 times a day, # 60 capsule, 1 Refills, [facility] 18842, 157.48, cm, 06/02/21 14:20:00 EST, Height Start Date: 07/14/21 Status: Ordered oxyCODONE 10 mg oral tablet TAKE 1/2 TAB EVERY 12 HOURS NEEDED FOR SEVERE NECK/LOW BACK PAIN. DO NOT FILL UNTIL 05/01/21 Start Date: 06/02/21 Status: Ordered Pen Calvin, 31 G x 8 mm BD Ultra [...] OF 2, # 12 tablet, 7 Refills, [facility]ORE 25592, 157.48, cm, 05/23/21 13:08:00 EST, Height Start Date: 06/02/21 Status: Ordered tiZANidine 4 mg oral capsule 1 capsule, By Mouth, 3 times a day, # 90 capsule, 3 Refills, [facility] STORE 44683, 157.48, cm, 05/23/21 13:08:00 EST, Height Start Date: 06/01/21 Status: Ordered Topamax 25 mg oral tablet 2 tablet = 50 mg, By Mouth, Daily at bedtime, # 60 tablet, 6 Refills, Maintenance, 04/21/20 13:35:00 EST, Tablet, [facility], 157.48, cm, 03/04/20 14:14:00 EST, Height Start Date: 04/21/20 Stop Date: 11/17/20 Status: Ordered Trulicity Pen 3 mg/0.5 mL subcutaneous solution See Instructions, INJECT 0.5ML SUBCUTANEOUSLY EVERY WEEK, ROTATE INJECTION SITES, # 2 mL, 5 Refills, 08/24/21 9:20:00 EDT, [facility], 157.48, cm, 08/24/21 8:03:00 EDT, Height Start Date: 08/24/21 Status: Ordered Vascepa 1 g oral capsule 2 capsule = 2 Gm, By Mouth, 2 times a day, # 360 capsule, 5 Refills, Maintenance, 05/03/20 15:59:00EST, Capsule, [facility]/pharmacy #4471, 157.48, cm, 03/04/20 14:14:00 EST, [...] Active *Briana Garces, Care Coor dinator, ICP [phone](Confirmed) Active Reflux(Confirmed) Active Hepatic steatosis(Confirmed) Active -EF [...]
--- OUTSIDE RECORDS SUMMARY | 2024-01-23 14:29 | XMS_ITS | Continuity of Care Document ---
Author Organization [facility] Address [address] [place] [address]- Care Team Providers Care Equipment Associate Name Role Phone Sergo Bazzi MD Primary Care Physician [place] [facility] [place] 09[place]/23 [facility] [address], [place] [address] Allergies, Adverse Reactions, Alerts Substance Reaction Severity [...] Given 1Result Comment: [01/22/2017] [facility] [id number] 2Admin Note: vis given dated 10/24/12 3Admin [...] 1 Refills, Acute, 219:52:00 EDT, [facility], 157.48, cm, 10/11/20 9:39:00 EDT, Height Start [...] Date: 03/03/21 Stop Date: 02/26/22 Status: Ordered Wurem-Eeshif-Zfwp 300 mg oral capsule 1 capsule, By Mouth, 2 times a day, NOT COVERED., # 60 capsule, 11 Refills, [facility]888, 157.48, cm, 01/27/21 9:30:00 EDT, Height Start Date: 01/30/21 Status: Ordered ammonium lactate 12% topical cream 1 application, Topically, 2 times a day, # 385 Gm, 1 Refills, Maintenance, 12/22/22 14:16:00 EDT, Cream, [facility]/pharmacy #[id number], Partial fill upon patient request if the prescription is for a schedule IIopioid drug., 1 application Topically 2 times a day... Start Date: 12/22/22 Stop Date: 02/20/23 Status: Ordered Artificial Tears preserved solution 1 drops, Eyes, Both, 2 times a day, PRN for dry eyes, # 15 mL, 0 Refills, Maintenance, 09/10/23 8:57:00 EDT, Solution, [facility]/pharmacy #[id number], Partial fill upon patient request if the prescription is fora schedule II opioid drug., 1 drops Eyes, Both 2 ti... Start Date: 09/10/23 Status: Ordered atorvastatin 80 mg oral tablet 1 tablet, By Mouth, Daily, INSTR:REPLACES SIMVASTATIN, # 90 tablet, 1 Refills, Maintenance, 05/22/23 12:07:00 EST, [facility] STORE 19163, 157, cm, 05/06/23 14:23:00 EST, Height, 88.3, kg, 04/16/23 11:33:00EST, Dry Weight Start Date: 05/22/23 Status: Ordered BD Single Use Swab 70% topical pad See Instructions, TO CLEANS BEFORE INJECTIONS 5 X A DAY., # 150 Unknown, 11 Refills, Maintenance, 08/16/22 10:15:00 EDT, [facility], 30, TO CLEANS BEFORE INJECTIONS 5 X A DAY., 157.5, cm, 08/01/22 9:27:00 EDT, Height Start Date: 08/16/22 Status: Ordered busPIRone 5 mg oral tablet 5 mg, 1, tablet, By Mouth, 3 times a day, # 90 tablet, Refills 4, Tot. Refills 4, Maintenance, 09/10/23 10:46:00 EDT, Route to Pharmacy Electronically, [facility]/pharmacy #[id number], Partial fill upon patient request if the prescription is for a schedule II opio... Start Date: 09/10/23 Stop Date: 02/07/24 Status: Ordered capsaicin 0.075% topical cream See Instructions, APPLY TO AFFECTED AREA TWICE A DAY, # 57 Gm, 4 Refills, Maintenance, 04/11/23 10:18:00 EST, [facility] STORE 76334, 30, APPLY TO AFFECTED AREA TWICE A [...] tablet, 1 Refills, Maintenance, 07/02/23 18:31:00 EDT, [facility] STORE 92086, 90, TAKE 1 TABLET BY MOUTH DAILY [...] 09/10/23 10:46:00 EDT, Route to Pharmacy Electronically, [facility]/pharmacy #[id number], Partial fill... Start Date: 09/10/23 Stop Date: 02/07/24 Status: Ordered diclofenac 1% topical gel See Instructions, APPLY TOPICALLY 4 TIMES A DAY NOT TO EXCEED 16 GRAMS/DAY/SINGLE JOINT OF LOWER EXTREMITIES, # 100 Gm, 4 Refills, Maintenance, 09/10/23 8:56:00 EDT, [facility]/pharmacy #[id number], 30, APPLY TOPICALLY 4 TIMES [...] capsule, 5 Refills, Maintenance, 07/03/22 18:20:00 EDT, [facility]/pharmacy #[id number], Duplicate Rx. Original sent 07/03/22 with routing error. Re- sending to pharmacy, 157.5, cm... Start Date: 07/03/22 Status: Ordered esomeprazole 40 mg oral enteric coated capsule 1 capsule = 40 mg, By Mouth, Daily, # 90 capsule, 1 Refills, Maintenance, 09/02/23 16:20:00 EDT, [facility]/pharmacy #[id number], Partial fill upon patient request [...] Refills, Maintenance, 09/20/22 9:36:00 EDT, [facility], 30, INHALE 1 PUFF BY MOUTH TWICE A DAY, 157.5, cm, 09/05/22 16:22:00 EDT, Height Start Date: 09/20/22 Status: Ordered fluticasone 50 mcg/inh nasal spray See Instructions, SPRAY 1 SPRAY INTO EACH NOSTRIL EVERY DAY, # 16 mL, 5 Refills, Maintenance, 07/05/22 16:20:00 EDT, [facility] STORE 96546, 30, SPRAY 1 SPRAY INTO EACH NOSTRIL [...] tablet, 4 Refills, Maintenance, 03/11/23 15:50:00 EST, [facility] STORE 26952, 157.5, cm, 02/19/23 9:20:00 EST, Height Start [...] mL, 6 Refills, Maintenance, 07/24/23 13:20:00 EDT, [facility], Partial fill upon patient request if the prescription is for a schedule II opioid drug., 157, cm, 07/24/23 12:52:00... Start Date: 07/24/23 Status: Ordered hydrOXYzine hydrochloride 25 mg oral tablet 1 tablet = 25 mg, By Mouth, 2 times a day, as needed for anxiety, # 60 tablet, 4 Refills, Soft Stop, 09/10/23 10:47:00 EDT, Tablet, [facility]/pharmacy #[id number], Partial fill upon patient request if the prescription is for a schedule II opioid drug., 157, cm, 0... Start Date: 09/10/23 Stop Date: 02/07/24 Status: Ordered lactase 3000 u oral tablet 3 tablet, By Mouth, 3 times a day with meals, X30 DAYS., # 120 tablet, 5 Refills, Maintenance, 04/25/23 15:25:00 EST, [facility] STORE 45955, 157, cm, 04/17/23 7:57:00 EST, Height, 88.3, kg, 04/16/23 11:33:00 EST, Dry Weight Start Date: 04/25/23 Status: Ordered Lantus Solostar Pen 100 units/mL subcutaneous solution See Instructions, Take 45 units in the AM and 45 units daily at bedtime. E11.9., # 30 mL, 9 Refills, Maintenance, 07/24/23 13:18:00 EDT, [facility], Partial fill upon patient requestif the prescription is for a schedule II opioid lucas... Start Date: 07/24/23 Status: Ordered levothyroxine 0.1 mg oral tablet 1 tablet = 100 mcg, By Mouth, Daily, # 30 tablet, 11 Refills, Maintenance, 07/25/23 8:52:00 EDT, [facility]/pharmacy #[id number], stop the 112mcg dose, 157, cm, 07/24/23 12:52:00 EDT, Height, 84, kg, 07/24/23 12:52:00 EDT, Dry Weight Start Date: 07/25/23 Stop Date: 07/19/24 Status: Ordered lidocaine 5% topical ointment See Instructions, APPLY TO AFFECTED AREA 3 TIMES A DAY, # 35.44 Gm, 11 Refills, Maintenance, 02/28/22 8:51:00 EST, [facility]/pharmacy #[id number], 30, APPLY TO AFFECTED AREA 3 TIMES A DAY, 157.5, cm, 02/21/22 14:36:00 EST, Height Start Date: 02/28/22 Status: Ordered lidocaine 5% topical ointment See Instructions, APPLY TO AFFECTED AREA 3 TIMES A DAY, # 35.44 Gm, 11 Refills, Maintenance, 07/03/22 18:22:00 EDT, [facility]/pharmacy #[id number], 30, Duplicate Rx. Original sent 07/03/22 with routing error. Re-sending to pharmacy, APPLY TO AFFECTED AREA 3 TIMES A... Start Date: 07/03/22 Status: Ordered losartan 50 mg oral tablet See Instructions, TAKE 1 TABLET BY MOUTH EVERY DAY, # 90 tablet, 1 Refills, Maintenance, 03/11/23 15:50:00 EST, [facility] STORE 35352, 157.5, cm, 02/19/23 9:20:00 EST, Height Start Date: 03/11/23 Status: Ordered Lyrica 25 mg oral capsule See Instructions, 1 capsule By Mouth 1 time daily at bedtime. E11.9, # 30 each, 2 Refills, Maintenance, 08/08/23 11:19:00 EDT, Capsule, [facility]/pharmacy #[id number], Partial fill upon patient request if the prescription is for a schedule II opioid drug., 157, c... Start Date: 08/08/23 Status: Ordered mirtazapine 15 mg oral tablet 1 tablet = 15 mg, By Mouth, Daily at bedtime, # 30 tablet, 4 Refills, Maintenance, 09/10/23 10:47:00 EDT, Tablet, [facility]/pharmacy #[id number], Partial fill upon patient request if the prescription is for a schedule II opioid drug., 157, cm, 09/10/23 8:42:00 ED... Start Date: 09/10/23 Stop Date: 02/07/24 Status: Ordered Narcan 4 mg/0.1 mL nasal spray = 4 mg, Nares, Both, Once, # 2 each, 2 Refills, Soft Stop, 02/22/23 14:30:00 EST, [facility]/pharmacy #[id number], Partial fill upon patient request if the prescription is for a schedule II opioid drug., 157.5, cm, 02/19/23 9:20:00 EST, Height Start Date: 02/22/23 Status: Ordered [place]-3 Fish Oil 1000 mg oral capsule 1 capsule = 1,000 mg, By Mouth, Daily, # 90 capsule, 1 Refills, Maintenance, 08/01/22 10:17:00 EDT,[facility]/pharmacy #[id number], Partial fill upon patient request if the prescription is for a schedule II opioid drug., 157.5, cm, 08/01/22 9:27:00 EDT, Height Start Date: 08/01/22 Status: Ordered omeprazole 20 mg oral delayed release tablet 1 tablet = 20 mg, By Mouth, 2 times a day, do not crush or chew, # 60 tablet, 2 Refills, Maintenance, 06/14/22 16:40:00 EDT, EC Tablet, [facility]/pharmacy #[id number], Partial fill upon patient request if the prescription is for a schedule II opioid drug., 157.5,... Start Date: 06/14/22 Status: Ordered ondansetron 4 mg oral tablet 1 tablet, By Mouth, Every 8 hours, PRN NEEDED FOR NAUSEA AND VOMITING FOR, # 30 tablet, 2 Refills, Maintenance, 07/03/23 14:40:00 EDT, [facility] STORE 04021, 157, cm, 06/24/23 14:54:00 EDT, Height, 88.3, [...] mL, 11 Refills, Maintenance, 08/23/23 11:17:00 EDT, [facility], Partial fill upon patient request if... Start Date: 08/23/23 Status: Ordered Pen [place], 31 G x 8 mm BD Ultra [...] 09/10/23 10:47:00 EDT, Route to Pharmacy Electronically, [facility]/pharmacy #[id number], Partial fill upon patient request if the prescription is for a schedule II opi... Start Date: 09/10/23 Stop Date: 02/07/24 Status: Ordered literature professor grabber tool literature professor grabber tool, See Instructions, # 1 each, Refills 0, Tot. Refills 0, Maintenance, please dispense one literature professor grabber tool, ICD 10 M54.6, length [...] tablet, 10 Refills, Maintenance, 08/15/23 14:04:00 EDT, [facility]/pharmacy #[id number], 157, cm, 07/24/23 12:52:00 EDT, Height, 84, kg, 07/24/23 12:52:00 EDT, Dry Weight Start Date: 08/15/23 Status: Ordered valACYclovir 500 mg oral tablet 1, tablet, By Mouth, 2 times a day, PRN, # 6 tablet, Refills 0, Maintenance, NEEDED FOR OUTBREAKS, 08/05/23 15:33:00 EDT, Route to Pharmacy Electronically, [facility] ST[facility] 40591, 157, cm, 07/24/23 12:52:00 EDT, Height, 84, [...] Refills, Maintenance, 09/17/22 15:25:00 EDT, [facility], 157.5, cm, 09/05/22 16:22:00 EDT, Height Start [...] 5 Confirmed 02/20/10 Active *Briana Garces, Supervisor [employer], ICP [phone] Confirmed Active PTSD (post-traumatic stress disorder) Confirmed [...] Name: Rose Mary FISCHER, Sergo Cole Position: [facility] Physician - Primary Care Member Role: PCP Address: Address: [address] [place] [address] [place] [address]- Name: Lizbeth Collins [place] Position: [facility] Office Staff Member Role: Primary Care Nurse Care Team Related Persons Name: LB HENLEY Address: home [address] [place] [address] Name: LB HENLEY Address: home [address] [address] Name: MILENA CUBA Address: home [address] [place] [address] [address] [place] [address]
--- OUTSIDE RECORDS SUMMARY | 2024-01-23 14:29 | XMS_ITS | Continuity of Care Document ---
Author Organization [facility] Address [address] [place] [address]- Care Team Providers Care Rfid Manager Name Role Phone Rose Mary FISCHER, Sergo Cole Primary Care Physician Encounter [place] Date(s): 09/05/21 - 10/05/21 [facility] [address], [place] [address] Allergies, Adverse Reactions, [...] (oldterm) 8 01/21/08 Given 1Result Comment: [01/22/2017] [facility] [id number] 2Admin Note: vis given dated 10/24/12 3Admin Note: vis given dated 10/01/11 4Admin Note: vis 5Admin Note: vis 6Admin Note: vis given: 10/27/2006 7Admin Note: vis given : 10/10/2005 8Admin Note: vis given 2007- Medications acetaminophen 500 mg oral tablet 2 tablet, By Mouth, 4 times a day, PRN NEEDED FOR PAIN, # 100 tablet, 1 Refills, Acute, 219:52:00 EDT, [facility] ST[facility] 00073, 157.48, cm, 10/11/20 9:39:00 EDT, Height Start Date: 10/26/20 Status: Ordered Alcohol Pads See Instructions, # 200 each, Refills 11, Tot. Refills 11, Maintenance, To cleans before injections5 x a day., 03/03/21 9:18:00 EST, E11.65, Compound, 157.48, cm, 03/01/21 15:54:00 EST, Height Start Date: 03/03/21 Stop Date: 02/26/22 Status: Ordered Hrmme-Xavmbi-Ihbn 300 mg oral capsule 1 capsule, By Mouth, 2 times a day, NOT COVERED., # 60 capsule, 11 Refills, [facility] ST[facility] 12584, 157.48, cm, 01/27/21 9:30:00 EDT, Height Start Date: 01/30/21 Status: Ordered ammonium lactate 12% topical cream 1 application, Topically, 2 times a day, # 385 Gm, 5 Refills, Maintenance, 09/08/21 9:35:00 EDT, Cream, [facility]/pharmacy #8841, Partial fill upon patient request if the prescription is for a schedule II opioid drug., 1 application Topically 2 times a day,... Start Date: 09/08/21 Stop Date: 03/07/22 Status: Ordered aspirin 81 mg oral delayed release tablet 1 tablet, By Mouth, Daily, # 30 tablet, 11 Refills, Maintenance, 06/21/20 17:44:00 EDT, [facility] STORE 15138, 157.48, cm, 05/31/20 9:41:00 EST, Height Start [...] Refills, Maintenance, 08/19/20 16:26:00 EDT, [facility], 30, TAKE 1 TABLET BY MOUTH DAILY. [...] 6 Refills, Maintenance, 09/01/21 13:11:00 EDT, Gel, [facility]/pharmacy #4471, 157.48, cm, 08/24/21 [...] DAY, # 16 mL, 5 Refills, [facility] STORE 96504, 30, USE 1 SPRAY IN EACH NOSTRIL [...] 3, Maintenance, use up to check blood [id number] per day. 90 DAY SUPPLY, E11.9, 03/03/21 [...] mL, 6 Refills, Maintenance, 09/18/21 16:43:00 EDT, [facility], Partial fill upon patient request if... Start Date: 09/18/21 Status: Ordered Lantus Solostar Pen 100 units/mL subcutaneous solution See Instructions, Take 80 units via Subcutaneous Infusion Daily at bedtime. E11.9., # 30 mL, 9 Refills, Maintenance, 08/24/21 9:25:00 EDT, [facility], Partial fill upon patient request if the prescription is for a schedule II opioid d... Start Date: 08/24/21 Status: Ordered Lantus Solostar Pen 100 units/mL subcutaneous solution See Instructions, Decreased to 60U once a day as of 12/29/19, # 30 mL, 9 Refills, Maintenance, 09/20/20 15:10:00 EDT, [facility], NEEDS 30 ML FOR [...] 0 Refills, Maintenance, 09/08/21 9:35:00 EDT, Film, [facility]/pharmacy #4471, Partial fill upon patient request if the prescription is for a schedule II opioid drug., 1patch Topically Daily, 157.48, cm, 08/24/21 8:03:00... Start Date: 09/08/21 Status: Ordered losartan 50 mg oral tablet 1 tablet, By Mouth, Daily, # 30 tablet, 2 Refills, [facility] STORE 33053, 157.48, cm, 05/05/21 9:51:00 EST, Height Start [...] 05/01/21 Start Date: 06/02/21 Status: Ordered Pen [place], 31 G x 8 mm BD Ultra [...] # 12 tablet, 7 Refills, [facility], 157.48, cm, 05/23/21 13:08:00 EST, Height Start Date: 06/02/21 Status: Ordered tiZANidine 4 mg oral capsule 1 capsule, By Mouth, 3 times a day, # 90 capsule, 3 Refills, [facility], 157.48, cm, 05/23/21 13:08:00 EST, Height Start Date: 06/01/21 Status: Ordered Topamax 25 mg oral tablet 2 tablet = 50 mg, By Mouth, Daily at bedtime, # 60 tablet, 6 Refills, Maintenance, 08/29/21 14:04:00 EDT, Tablet, [facility]/pharmacy #4471, 157.48, cm, 08/24/21 8:03:00 EDT, Height Start Date: 08/29/21 Stop Date: 03/27/22 Status: Ordered Trulicity Pen 3 mg/0.5 mL subcutaneous solution See Instructions, INJECT 0.5ML SUBCUTANEOUSLY EVERY WEEK, ROTATE INJECTION SITES, # 2 mL, 5 Refills, 08/24/21 9:20:00 EDT, [facility], 157.48, cm, 08/24/21 8:03:00 [...] 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
--- OUTSIDE RECORDS SUMMARY | 2024-01-23 14:30 | XMS_ITS | Continuity of Care Document ---
Author Organization [facility] Address [address] [place] [id number]- Care Team Providers Care Spear Fisher Name Role Phone Rose Mary FISCHER, Sergo Cole Primary Care Physician [place] [facility] [place]): [place]22 [facility] [address] [place] [id number] Attending Physician: Broderick Washburn Admitting Physician: AdmBroderick enriquez Referring Physician: Admtr, Ar8 Allergies, Adverse Reactions, [...] (oldterm) 8 01/21/08 Given 1Result Comment: [01/22/2017] [facility] [id number] 2Admin Note: vis given dated 10/24/12 3Admin Note: vis given dated 10/01/11 4Admin Note: vis 5Admin Note: vis 6Admin Note: vis given: 10/27/2006 7Admin Note: vis given : 10/10/2005 8Admin Note: vis given 2007- Medications acetaminophen 500 mg oral tablet 2 tablet, By Mouth, 4 times a day, PRN NEEDED FOR PAIN, # 100 tablet, 1 Refills, Acute, 219:52:00 EDT, [facility] STORE [facility]234, 157.48, cm, 10/11/20 9:39:00 EDT, Height Start Date: 10/26/20 Status: Ordered albuterol CFC free 90 mcg/inh inhalation aerosol 1, puffs, Inhalation, 4 times a day, PRN, # 8.5 Gm, Refills 0, Tot. Refills 0, Maintenance, 02/21/22 15:04:00 EST, Aerosol, Route to Pharmacy Electronically, [id number], [facility]/pharmacy #[id number], 157.5, cm, 02/21/22 14:36:00 EST, H... Start Date: 02/21/22 Status: Ordered Alcohol Pads See Instructions, # 200 each, Refills 11, Tot. Refills 11, Maintenance, To cleans before injections5 x a day., 03/03/21 9:18:00 EST, E11.65, Compound, 157.48, cm, 03/01/21 15:54:00 EST, Height Start Date: 03/03/21 Stop Date: 02/26/22 Status: Ordered Isaoo-Rgmfjb-Jrxx 300 mg oral capsule 1 capsule, By Mouth, 2 times a day, NOT COVERED., # 60 capsule, 11 Refills, [facility], 157.48, cm, 01/27/21 9:30:00 EDT, Height Start Date: 01/30/21 Status: Ordered ammonium lactate 12% topical cream 1 application, Topically, 2 times a day, # 385 Gm, 5 Refills, Maintenance, 09/08/21 9:35:00 EDT, Cream, [facility]/pharmacy #[id number], Partial fill upon patient [...] Refills, Maintenance, 03/05/22 13:29:00 EST, [facility], 30, APPLY TO AFFECTED AREA TWICE A DAY, 157.5, cm, 03/02/22 10:34:00 EST, Height Start Date: 03/05/22 Status: Ordered Daily David oral tablet 1 tablet, By Mouth, Daily, INSTR:TAKE IT 2 HOURS SEPARATE FROM ORLISTAT ([place]), # 30 tablet, 11 Refills, Maintenance, 08/19/20 16:26:00 EDT, [facility], 30, TAKE 1 TABLET BY MOUTH DAILY. INSTR:TAKE IT 2 HOURS SEPARATE FROM ORLISTAT ([place]ILT[place]), 157.48... Start Date: 08/19/20 Status: Ordered diazepam [...] 0 Refills, Maintenance, 01/29/22 8:51:00 EDT, Gel, [facility]/pharmacy #[id number], 157.5, cm, 01/20/22 13:38:00 EDT, Height Start Date: 01/29/22 Stop Date: 02/28/22 Status: Ordered docusate sodium 100 mg oral capsule 100 mg, 1, capsule, By Mouth, 2 times a day, PRN, # 60 capsule, Refills 5, Tot. Refills 5, Maintenance, as needed for constipation, 11/10/21 9:17:00 EDT, Route to Pharmacy Electronically, [facility]/pharmacy #[id number], Partial fill upon patient [...] 0 Refills, Maintenance, 02/21/22 15:05:00 EST, Powder, [facility]/pharmacy #[id number], Partial fill upon patient request if the prescription is for a schedule II opioid drug., 1 puffs Inhalation 2 times a day, 157.5,... Start Date: 02/21/22 Status: Ordered fluticasone 50 mcg/inh nasal spray See Instructions, USE 1 SPRAY IN EACH NOSTRIL EVERY DAY, # 16 mL, 5 Refills, 12/29/21 15:10:00 EDT,[facility]/pharmacy #[id number], USE 1 SPRAY IN EACH NOSTRIL [...] mL, 9 Refills, Maintenance, 08/24/21 9:25:00 EDT, [facility], Partial fill upon patient request if the prescription is for a schedule II opioid d... Start Date: 08/24/21 Status: Ordered Lantus Solostar Pen 100 units/mL subcutaneous solution See Instructions, Decreased to 60U once a day as of 12/29/19, # 30 mL, 9 Refills, Maintenance, 09/20/20 15:10:00 EDT, [facility], NEEDS 30 ML FOR 30 DAY SUPPLY E11.9, 157.48, cm, 05/31/20 9:41:00 EST, Height Start Date: 09/20/20 Status: Ordered lidocaine 5% topical ointment See Instructions, APPLY TO AFFECTED AREA 3 TIMES A DAY, # 35.44 Gm, 11 Refills, Maintenance, 02/28/22 8:51:00 EST, [facility]/pharmacy #[id number], 30, APPLY TO AFFECTED AREA 3 TIMES A DAY, 157.5, cm, 02/21/22 14:36:00 EST, Height Start Date: 02/28/22 Status: Ordered losartan 50 mg oral tablet 1 tablet, By Mouth, Daily, # 30 tablet, 5 Refills, 12/08/21 16:06:00 EDT, [facility]/pharmacy #[id number], 157.5, cm, 11/29/21 15:59:00 EDT, Height Start Date: 12/08/21 Status: Ordered Lyrica 25 mg oral capsule See Instructions, 1 capsule By Mouth 1 time daily at bedtime. E11.9, # 30 each, 5 Refills, Maintenance, 09/18/21 12:21:00 EDT, Capsule, [facility]/pharmacy #[id number], Partial fill upon patient [...] Refills, Maintenance, 01/29/22 8:52:00 EDT, EC Tablet, [facility]/pharmacy #[id number], Partial fill upon patient request if the prescription is for a schedule II opioid drug., 157.5,... Start Date: 01/29/22 Status: Ordered oxyCODONE 10 mg oral tablet TAKE 1/2 TAB EVERY 12 HOURS NEEDED FOR SEVERE NECK/LOW BACK PAIN. DO NOT FILL UNTIL 05/01/21 Start Date: 06/02/21 Status: Ordered Pen [place], 31 G x 8 mm BD Ultra [...] 11:08:00 EST, 01/09/22 11:08:00 EDT, Chew Tablet, [facility]/pharmacy #[id number], Partial fill upon patient [...] Stop 09/16/22 11:02:00 EDT, 01/19/22 11:02:00 EDT, [facility]/pharmacy #[id number], 157.5, cm, 01/09/22 10:18:00 EDT, Height Start Date: 01/19/22 Stop Date: 09/16/22 Status: Ordered Topamax 25 mg oral tablet 3 tablet = 75 mg, By Mouth, Daily at bedtime, # 90 tablet, 6 Refills, Maintenance, 01/19/22 10:34:00 EDT, Tablet, [facility]/pharmacy #[id number], 157.5, cm, 01/09/22 10:18:00 EDT, Height Start Date: 01/19/22 Stop Date: 08/17/22 Status: Ordered Trulicity Pen 3 mg/0.5 mL subcutaneous solution See Instructions, INJECT 0.5ML SUBCUTANEOUSLY EVERY WEEK, ROTATE INJECTION SITES, # 2 mL, 5 Refills, 01/23/22 16:33:00 EDT, [facility], 157.5, cm, 01/20/22 13:38:00 EDT, Height Start Date: 01/23/22 Status: Ordered Vascepa 1 g oral capsule 2 capsule = 2 Gm, By Mouth, 2 times a day, # 360 capsule, 5 Refills, Maintenance, 05/03/20 15:59:00EST, Capsule, [facility]/pharmacy #[id number], 157.48, cm, 03/04/20 14:14:00 [...] 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 *Briana Garces, Public Speaking Instructor, ICP [phone] Confirmed Active Reflux Confirmed Active Hepatic steatosis [...] Role: PCP Address: Address: [address] [facility] [place] [address]- Care Team Related Persons Name: LB HENLEY Address: home [address] [address] Name: LB HENLEY Address: home [address] [place] [address] Name: MILENA CUBA Address: home [address] [place] [address]
--- OUTSIDE RECORDS SUMMARY | 2024-01-23 14:30 | XMS_ITS | Continuity of Care Document ---
Author Organization [facility] Address [address] [place] [address]- Care Team Providers Care [employer]bed [employer] Driver Name Role Phone Rose Mary FISCHER, Sergo Cole Primary Care Physician Encounter [facility] Date(s): 04/07/20 - 05/07/20 [facility] [address] [place], [place] [address] Allergies, Adverse Reactions, Alerts Substance [...] influenza virus vaccine, inactivated 1 01/22/17 Gi lizzeht influenza virus vaccine, inactivated 03/02/15 Give n [...] (oldterm) 8 01/21/08 Given 1Result Comment: [01/22/2017] [facility] [id number] 2Admin Note: vis given dated 10/24/12 3Admin [...] mL, 5 Refills, Maintenance, 09/02/19 13:54:00 EDT, [facility], E11.9, 157.48, cm, 04/27/19 [...] tablet, 3 Refills, Maintenance, 02/01/20 15:26:00 EST, [facility]/pharmacy #[id number], 157.48, cm, 01/25/20 [...] 4 Refills, Maintenance, 02/23/20 11:05:00 EST, Tablet, [facility]/pharmacy #[id number], replaces simvastatin, 157.48, cm, 01/25/20 15:23:00 EDT, Height Start Date: 02/23/20 Stop Date: 05/18/21 Status: Ordered atorvastatin 80 mg oral tablet 1 tablet = 80 mg, By Mouth, Daily, for 90 days, replaces Simvastatin, # 90 tablet, 4 Refills, Hard Stop 04/01/21 14:01:00 EST, 01/07/20 14:01:00 EDT, Tablet, [facility]/pharmacy #[id number], replaces simvastatin,157.48, cm, 12/29/19 15:55:00 EDT, Height Start Date: 01/07/20 Stop Date: 04/01/21 Status: Ordered BD ultra fine III pen needles [id number] BD ultra fine III pen needles [id number], See Instructions, # 360 each, Refills 3, [...] 60 Gm, 4 Refills, Acute, [facility], 30, APPLY TO AFFECTED AREA TWICE A [...] 6 Refills, Maintenance, 12/24/19 9:18:00 EDT, Gel, [facility]/pharmacy #[id number], 157.48, cm, 04/27/19 [...] 5 Refills, Maintenance, 01/07/20 14:00:00 EDT, Tablet, [facility]/pharmacy #[id number], 157.48, cm, 12/29/19 [...] Gm, 1 Refills, Maintenance, 12/10/19 12:46:00 EDT, [facility]/pharmacy #[id number], 1 sprays Nares, [...] 3, Maintenance, use up to check blood [id number] per day. 90 DAY SUPPLY, E11.9, 02/29/20 [...] mL, 2 Refills, Maintenance, 04/07/20 16:52:00 EST, [facility], Partial fill upon patient [...] mL, 11 Refills, Maintenance, 09/02/19 13:55:00 EDT, [facility], NEEDS 30 ML FOR [...] 11 Refills, Maintenance, 05/15/19 15:00:00 EST, Ointment, [facility]/pharmacy #[id number], 1 application Topically 3 times a day,x30 days, 157.48, cm, 04/27/19 15:43:00 EST, Height Start Date: 05/15/19 Stop Date: 05/09/20 Status: Ordered losartan 50 mg oral tablet 50 mg, 1, tablet, By Mouth, Daily, can substitute 25mg tabs x2 if needed, # 30 tablet, Refills 5, Tot. Refills 5, Maintenance, 01/11/20 11:21:00 EDT, Route to Pharmacy Electronically, [facility]/pharmacy #[id number], 157.48, cm, 12/29/19 [...] 4 Refills, Maintenance, 08/14/19 8:49:00 EDT, Tablet, [facility]/pharmacy #[id number], 1 tablet By [...] request Start Date: 02/16/19 Status: Ordered Pen [place], 31 G x [...] 11/17/20 13:36:00 EDT, 04/21/20 13:36:00 EST, Tablet, [facility]/pharmacy #[id number], 157.48, cm, 03/04/20... Start Date: 04/21/20 Stop Date: 11/17/20 Status: Ordered Topamax 25 mg oral tablet 2 tablet = 50 mg, By Mouth, Daily at bedtime, # 60 tablet, 6 Refills, Maintenance, 04/21/20 13:35:00 EST, Tablet, [facility]/pharmacy #[id number], 157.48, cm, 03/04/20 14:14:00 EST, Height Start Date: 04/21/20 Stop Date: 11/17/20 Status: Ordered Trulicity Pen 1.5 mg/0.5 mL subcutaneous solution 0.5 mL = 1.5 mg, Subcutaneous Injection, Every Saturday, for 90 days, # 7.5 mL, 3 Refills, Hard Stop 12/08/21 15:26:00 EDT, 12/13/20 15:26:00 EDT, Solution, [facility], E11.65, 157.48, cm, 04/27/19 15:43:00 EST, Height Start Date: 12/13/20 Stop Date: 12/08/21 Status: Ordered Trulicity Pen 1.5 mg/0.5 mL subcutaneous solution 0.5 mL = 1.5 mg, Subcutaneous Injection, Every Saturday, E11.9, # 7.5 mL, 3 Refills, Maintenance, 12/08/21 15:26:00 EDT, Solution, [facility], E11.65, 157.48, cm, 03/04/20 14:14:00 EST, Height Start Date: 12/08/21 Stop Date: 12/03/22 Status: Ordered Trulicity Pen 1.5 mg/0.5 mL subcutaneous solution 0.5 mL = 1.5 mg, Subcutaneous Injection, Every Saturday, for 90 days, # 6.5 mL, 5 Refills, Hard Stop 12/13/20 15:26:00 EDT, 06/22/19 15:26:00 EDT, Solution, [facility]/pharmacy #[id number], E11.65, 157.48, cm, 04/27/19 15:43:00 EST, Height Start Date: 06/22/19 Stop Date: 12/13/20 Status: Ordered Vascepa 1 g oral capsule 2 capsule = 2 Gm, By Mouth, 2 times a day, # 360 capsule, 5 Refills, Maintenance, 05/03/20 15:59:00EST, Capsule, [facility]/pharmacy #[id number], 157.48, cm, 03/04/20 [...] Active *Briana Garces, Care Coor dinator, ICP [phone](Confirmed) Active Reflux(Confirmed) Active 65038 -EF 60-65%. No wall motion abnormalities, Does [...]
--- OUTSIDE RECORDS SUMMARY | 2024-01-23 14:30 | XMS_ITS | Continuity of Care Document ---
Author Organization [facility] Address [address] [place] [address]- Care Team Providers Care Family Preservation Caseworker Name Role Phone Rose Mary FISCHER, Sergo Cole Primary Care Physician Encounter [facility] Date(s): 06/21/22 - 07/21/22 [facility] [address], [place] [address] Allergies, Adverse Reactions, Alerts Substance Reaction Severity Status morphine ITCH DIARRHEA Active Ultram nausea, vomit Active Latex powder [...] 8 01/21/08 Given 1Result Comment: [01/22/2017] [facility] [id number] 2Admin Note: vis given dated 10/24/12 3Admin Note: vis given dated 10/01/11 4Admin Note: vis 5Admin Note: vis 6Admin Note: vis given: 10/27/2006 7Admin Note: vis given : 10/10/2005 8Admin Note: vis given 2007- Medications acetaminophen 500 mg oral tablet 2 tablet, By Mouth, 4 times a day, PRN NEEDED FOR PAIN, # 100 tablet, 1 Refills, Acute, 219:52:00 EDT, [facility], 157.48, cm, 10/11/20 9:39:00 EDT, Height Start Date: 10/26/20 Status: Ordered Alcohol Pads See Instructions, # 200 each, Refills 11, Tot. Refills 11, Maintenance, To cleans before injections5 x a day., 03/03/21 9:18:00 EST, E11.65, Compound, 157.48, cm, 03/01/21 15:54:00 EST, Height Start Date: 03/03/21 Stop Date: 02/26/22 Status: Ordered Sddcp-Vgstvj-Nwue 300 mg oral capsule 1 capsule, By Mouth, 2 times a day, NOT COVERED., # 60 capsule, 11 Refills, [facility], 157.48, cm, 01/27/21 9:30:00 EDT, Height Start [...] Refills, Maintenance, 03/05/22 13:29:00 EST, [facility], 30, APPLY TO AFFECTED AREA TWICE A [...] tablet, 11 Refills, Maintenance, 07/09/22 10:30:00 EDT, [facility]/pharmacy #[id number], 30, 1 tablet By Mouth [...] Replace Required Details, Route to Pharmacy Electronically, [facility]/pharmacy... Start Date: 05/02/22 Status: Ordered diclofenac 1% topical gel See Instructions, APPLY TOPICALLY 4 TIMES A DAY NOT TO EXCEED 16 GRAMS/DAY/SINGLE JOINT OF LOWER EXTREMITIES, # 100 Gm, 6 Refills, Maintenance, 03/19/22 9:28:00 EST, [facility], 30, APPLY TOPICALLY 4 TIMES A DAY NOT TO EXCEED 16 GRAMS/DAY/SINGLE... Start Date: 03/19/22 Status: Ordered docusate sodium 100 mg oral capsule See Instructions, TAKE 1 CAPSULE BY MOUTH TWICE A DAY NEEDED FOR CONSTIPATION, # 60 capsule, 5 Refills, Maintenance, 07/03/22 18:20:00 EDT, [facility]/pharmacy #[id number], Duplicate Rx. Original sent 07/03/22 with routing error. Re- sending to pharmacy, 157.5, cm... Start Date: 07/03/22 Status: Ordered docusate sodium 100 mg oral capsule 100 mg, 1, capsule, By Mouth, 2 times a day, PRN, # 60 capsule, Refills 5, Tot. Refills 5, Maintenance, as needed for constipation, 06/12/22 9:52:00 EDT, Route to Pharmacy Electronically, [facility]/pharmacy #[id number], Partial fill upon patient request [...] each, 0 Refills, Maintenance, 03/22/22 16:35:00 EST, [facility], 30, INHALE 1 PUFF BY MOUTH TWICE A DAY, 157.5, cm, 03/22/22 13:25:00 EST, Height Start Date: 03/22/22 Status: Ordered fluticasone 50 mcg/inh nasal spray See Instructions, SPRAY 1 SPRAY INTO EACH NOSTRIL EVERY DAY, # 16 mL, 5 Refills, Maintenance, 07/05/22 16:20:00 EDT, [facility], 30, SPRAY 1 SPRAY INTO EACH NOSTRIL [...] mL, 6 Refills, Maintenance, 06/12/22 10:00:00 EDT, [facility], Partial fill upon patie... Start Date: 06/12/22 Status: Ordered Lantus Solostar Pen 100 units/mL subcutaneous solution See Instructions, Take 45 units in the AM and 45 units daily at bedtime. E11.9., # 30 mL, 9 Refills, Maintenance, 06/19/22 16:50:00 EDT, [facility], Partial fill upon patient requestif the prescription is for a schedule II opioid lucas... Start Date: 06/19/22 Status: Ordered lidocaine 5% topical ointment See Instructions, APPLY TO AFFECTED AREA 3 TIMES A DAY, # 35.44 Gm, 11 Refills, Maintenance, 02/28/22 8:51:00 EST, [facility]/pharmacy #[id number], 30, APPLY TO AFFECTED AREA 3 TIMES A DAY, 157.5, cm, 02/21/22 14:36:00 EST, Height Start Date: 02/28/22 Status: Ordered lidocaine 5% topical ointment See Instructions, APPLY TO AFFECTED AREA 3 TIMES A DAY, # 35.44 Gm, 11 Refills, Maintenance, 07/03/22 18:22:00 EDT, [facility]/pharmacy #[id number], 30, Duplicate Rx. Original sent 07/03/22 with routing error. Re-sending to pharmacy, APPLY TO AFFECTED AREA 3 TIMES A... Start Date: 07/03/22 Status: Ordered losartan 50 mg oral tablet 1 tablet, By Mouth, Daily, # 90 tablet, 1 Refills, Maintenance, 07/11/22 15:04:00 EDT, [facility]/pharmacy#4471, 157.5, cm, 06/21/22 8:43:00 EDT, Height Start Date: 07/11/22 Status: Ordered Lyrica 25 mg oral capsule See Instructions, 1 capsule By Mouth 1 time daily at bedtime. E11.9, # 30 each, 5 Refills, Maintenance, 05/01/22 18:04:00 EST, Capsule, [facility]/pharmacy #[id number], Partial fill upon patient request if the prescription is for a schedule II opioid drug., 157.5,... Start Date: 05/01/22 Status: Ordered mirtazapine 15 mg oral tablet 1 tablet = 15 mg, By Mouth, Daily at bedtime, # 30 tablet, 4 Refills, Maintenance, 05/02/22 14:02:00 EST, Tablet, [facility]/pharmacy #[id number], Partial fill upon patient request if the prescription is for a schedule II opioid drug., 157.5, cm, 04/11/22 10:50:00... Start Date: 05/02/22 Stop Date: 09/29/22 Status: Ordered omeprazole 20 mg oral delayed release tablet 1 tablet = 20 mg, By Mouth, 2 times a day, do not crush or chew, # 60 tablet, 2 Refills, Maintenance, 06/14/22 16:40:00 EDT, EC Tablet, [facility]/pharmacy #[id number], Partial fill upon patient request if the prescription is for a schedule II opioid drug., 157.5,... Start Date: 06/14/22 Status: Ordered oxyCODONE 10 mg oral tablet TAKE 1/2 TAB EVERY 12 HOURS NEEDED FOR SEVERE NECK/LOW BACK PAIN. DO NOT FILL UNTIL 05/01/21 Start Date: 06/02/21 Status: Ordered Pen [place], 31 G x 8 mm BD Ultra [...] 05/02/22 14:40:00 EST, Route to Pharmacy Electronically, [facility]/pharmacy #[id number], Partial fill upon patient request if the prescription is for a schedule II opi... Start Date: 05/02/22 Status: Ordered passport application examiner grabber tool passport application examiner grabber tool, See Instructions, # 1 each, Refills 0, Tot. Refills 0, Maintenance, please dispense one passport application examiner grabber tool, ICD 10 M54.6, length [...] 10:05:00 EDT, 06/12/22 10:05:00 EDT, Chew Tablet, [facility], Partial fill upon [...] Stop 12/15/22 14:36:00 EDT, 04/19/22 14:36:00 EST, [facility]/pharmacy #[id number], 157.5, cm, 04/11/22 10:50:00 EST, Height Start Date: 04/19/22 Stop Date: 12/15/22 Status: Ordered Topamax 25 mg oral tablet 3 tablet = 75 mg, By Mouth, Daily at bedtime, # 90 tablet, 6 Refills, Maintenance, 06/26/22 10:14:00 EDT, Tablet, [facility], 157.5, cm, 06/21/22 8:43:00 EDT, Height Start Date: 06/26/22 Stop Date: 01/22/23 Status: Ordered Trulicity Pen 3 mg/0.5 mL subcutaneous solution See Instructions, INJECT 0.5ML SUBCUTANEOUSLY EVERY WEEK, ROTATE INJECTION SITES, # 2 mL, 5 Refills, 01/23/22 16:33:00 EDT, [facility], 157.5, cm, 01/20/22 13:38:00 EDT, Height Start Date: 01/23/22 Status: Ordered Trulicity Pen 4.5 mg/0.5 mL subcutaneous solution See Instructions, 4.5 mg Subcutaneous Infusion weekly. E11.9, # 4 each, 5 Refills, Maintenance, 06/19/22 17:00:00 EDT, [facility], Partial fill upon patient request if the prescription is for a schedule II opioid drug., 157.5, cm, ... Start Date: 06/19/22 Status: Ordered valACYclovir 500 mg oral tablet 1, tablet, By Mouth, 2 times a day, PRN, # 6 tablet, Refills 2, Maintenance, NEEDED FOR OUTBREAKS, 07/11/22 16:11:00 EDT, Route to Pharmacy Electronically, [facility], 157.5, cm, 06/21/22 8:43:00 EDT, Height Start Date: 07/11/22 Stop Date: 07/14/22 Status: Ordered Vascepa 1 g oral capsule 2 capsule = 2 Gm, By Mouth, 2 times a day, # 360 capsule, 5 Refills, Maintenance, 05/03/20 15:59:00EST, Capsule, [facility]/pharmacy #[id number], 157.48, cm, 03/04/20 14:14:00 EST, Height Start Date: 05/03/20 Status: Ordered Ventolin HFA 108 mcg/inh inhalation aerosol with adapter 1 puffs, Inhalation, 4 times a day, PRN NEEDED FOR WHEEZING, # 18 each, 0 Refills, Maintenance, 04/04/22 12:59:00 EST, [facility], 157.5, cm, 03/22/22 13:25:00 EST, Height Start [...] 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 No wall motion abnormalities, Does [...] Team Personnel Name: Sergo Bazzi MD Position: [facility] Primary Care Physician Member Role: PCP Address: Address: [address] [facility] [place] [address]- Name: Lizbeth Barnhart Position: [facility] RN Member Role: Primary Care Nurse Care Team Related Persons Name: LB HENLEY Address: home [address] [address] Name: LB HENLEY Address: [address] [place] [address] Name: MILENA CUBA Address: home [address] [place] [address]
--- OUTSIDE RECORDS SUMMARY | 2024-01-23 14:30 | XMS_ITS | Continuity of Care Document ---
Author Organization [facility] Address [address] [place] [address]- Care Team Providers Care Civil Rights Representative Name Role Phone Rose Mary FISCHER, Sergo Cole Primary Care Physician [phone] Encounter [facility] Date(s): 06/06/21 - 07/06/21 [facility] [address] [address] Attending Physician: Admmina, Broderick Admitting Physician: Admtr, ArItzel Referring Physician: Admtr, [...] 8 01/21/08 Given 1Result Comment: [01/22/2017] [facility] [id number] 2Admin Note: vis given dated 10/24/12 3Admin Note: vis given dated 10/01/11 4Admin Note: vis 5Admin Note: vis 6Admin Note: vis given: 10/27/2006 7Admin Note: vis given : 10/10/2005 8Admin Note: vis given 2007- Medications acetaminophen 500 mg oral tablet 2 tablet, By Mouth, 4 times a day, PRN NEEDED FOR PAIN, # 100 tablet, 1 Refills, Acute, 219:52:00 EDT, [facility] 97[facility], 157.48, cm, 10/11/20 9:39:00 EDT, Height Start Date: 10/26/20 Status: Ordered Alcohol Pads See Instructions, # 200 each, Refills 11, Tot. Refills 11, Maintenance, To cleans before injections5 x a day., 03/03/21 9:18:00 EST, E11.65, Compound, 157.48, cm, 03/01/21 15:54:00 EST, Height Start Date: 03/03/21 Stop Date: 02/26/22 Status: Ordered Ckmov-Zjlyqt-Sepr 300 mg oral capsule 1 capsule, By Mouth, 2 times a day, NOT COVERED., # 60 capsule, 11 Refills, [facility]88, 157.48, cm, 01/27/21 9:30:00 EDT, Height Start Date: 01/30/21 Status: Ordered ammonium lactate 12% topical cream 1 application, Topically, 2 times a day, # 385 Gm, 5 Refills, Maintenance, 12/19/20 14:08:00 EDT, Cream, [facility]/pharmacy #[id number], Partial fill upon patient request if the prescription is for a schedule IIopioid drug., 1 application Topically 2 times a day... Start Date: 12/19/20 Stop Date: 06/17/21 Status: Ordered aspirin 81 mg oral delayed release tablet 1 tablet, By Mouth, Daily, # 30 tablet, 11 Refills, Maintenance, 06/21/20 17:44:00 EDT, [facility]227, 157.48, cm, 05/31/20 9:41:00 EST, Height Start Date: 06/21/20 Status: Ordered atorvastatin 80 mg oral tablet 1 tablet = 80 mg, By Mouth, Daily, replaces Simvastatin, # 90 tablet, 4 Refills, Maintenance, 06/02/21 14:22:00 EST, Tablet, [facility]/pharmacy #[id number], replaces simvastatin, 157.48, cm, 06/02/21 14:20:00 EST, Height Start Date: 06/02/21 Stop Date: 08/26/22 Status: Ordered capsaicin 0.075% topical cream See Instructions, APPLY TO AFFECTED AREA TWICE A DAY, # 57 Gm, 4 Refills, [facility], 30, APPLY TO AFFECTED AREA TWICE A DAY, 157.48, cm, 11/11/20 9:37:00 EDT, Height Start Date: 01/02/21 Status: Ordered Daily David oral tablet 1 tablet, By Mouth, Daily, INSTR:TAKE IT 2 HOURS SEPARATE FROM ORLISTAT ([place]), # 30 tablet, 11 Refills, Maintenance, 08/19/20 16:26:00 EDT, [facility], 30, TAKE 1 TABLET BY MOUTH DAILY. [...] EVERY DAY, # 16 mL, 5 Refills, [facility]27, 30, USE 1 SPRAY IN EACH NOSTRIL [...] 3, Maintenance, use up to check blood [id number] per day. 90 DAY SUPPLY, E11.9, 03/03/21 [...] 3 Refills, Maintenance, 05/09/21 10:32:00 EST, [facility], Partial fill upon pat... Start Date: 05/09/21 Status: Ordered Lantus Solostar Pen 100 units/mL subcutaneous solution See Instructions, Decreased to 60U once a day as of 12/29/19, # 30 mL, 9 Refills, Maintenance, 09/20/20 15:10:00 EDT, [facility], NEEDS 30 ML [...] 0 Refills, Maintenance, 12/19/20 14:08:00 EDT, Film, [facility]/pharmacy #[id number], Partial fill upon patient request if the prescription is for a schedule II opioid drug., 1 patch Topically Daily, 157.48, cm, 11/11/20 9:37:0... Start Date: 12/19/20 Status: Ordered losartan 50 mg oral tablet 1 tablet, By Mouth, Daily, # 30 tablet, 2 Refills, [facility] 36152, 157.48, cm, 05/05/21 9:51:00 EST, Height Start [...] Refills, Maintenance, 05/23/21 13:30:00 EST, EC Tablet, [facility]/pharmacy #[id number], Partial fill upon patient request if the prescription is for a schedule II opioid drug., 157.48... Start Date: 05/23/21 Status: Ordered oxyCODONE 10 mg oral tablet TAKE 1/2 TAB EVERY 12 HOURS NEEDED FOR SEVERE NECK/LOW BACK PAIN. DO NOT FILL UNTIL 05/01/21 Start Date: 06/02/21 Status: Ordered Pen [place], 31 G x 8 mm BD Ultra [...] # 12 tablet, 7 Refills, [facility], 157.48, cm, 05/23/21 13:08:00 EST, Height Start Date: 06/02/21 Status: Ordered tiZANidine 4 mg oral capsule 1 capsule, By Mouth, 3 times a day, # 90 capsule, 3 Refills, [facility], 157.48, cm, 05/23/21 13:08:00 EST, Height Start Date: 06/01/21 Status: Ordered Topamax 25 mg oral tablet 2 tablet = 50 mg, By Mouth, Daily at bedtime, # 60 tablet, 6 Refills, Maintenance, 04/21/20 13:35:00 EST, Tablet, [facility]/pharmacy #[id number], 157.48, cm, 03/04/20 14:14:00 EST, Height Start Date: 04/21/20 Stop Date: 11/17/20 Status: Ordered Trulicity Pen 1.5 mg/0.5 mL subcutaneous solution 0.5 mL = 1.5 mg, Subcutaneous Injection, Every Saturday, for 90 days, E11.9, # 7.5 mL, 3 Refills, Hard Stop 12/03/22 15:26:00 EDT, 12/08/21 15:26:00 EDT, Solution, [facility], E11.65, 157.48, cm, 03/04/20 14:14:00 EST, Height Start Date: 12/08/21 Stop Date: 12/03/22 Status: Ordered Trulicity Pen 3 mg/0.5 mL subcutaneous solution 0.5 mL = 3 mg, Subcutaneous Injection, Every week, rotate injection sites, # 2 mL, 6 Refills, Maintenance, 03/01/21 16:55:00 EST, Solution, [facility], Partial fill upon patient request [...] Active *Briana Garces, Care Coor dinator, ICP [phone](Confirmed) Active Reflux(Confirmed) Active Hepatic steatosis(Confirmed) Active 48344 -EF 60-65%. No wall motion abnormalities, Does [...]
--- OUTSIDE RECORDS SUMMARY | 2024-01-23 14:30 | XMS_ITS | Continuity of Care Document ---
Author Organization [facility] Address [address] [place] [address]- Care Team Providers Care Community Product Specialist Name Role Phone Sergo Bazzi MD Primary Care Physician [phone] Encounter [facility] [id number] Date(s): 06/11/22 - 07/13/22 [facility] [address], [place] [address] Attending Physician: Not on Staff, Attending [...] (oldterm) 8 01/21/08 Given 1Result Comment: [01/22/2017] [facility] [id number] 2Admin Note: vis given dated 10/24/12 3Admin Note: vis given dated 10/01/11 4Admin Note: vis 5Admin Note: vis 6Admin Note: vis given: 10/27/2006 7Admin Note: vis given : 10/10/2005 8Admin Note: vis given 2007- Medications acetaminophen 500 mg oral tablet 2 tablet, By Mouth, 4 times a day, PRN NEEDED FOR PAIN, # 100 tablet, 1 Refills, Acute, 219:52:00 EDT, [facility] 46032, 157.48, cm, 10/11/20 9:39:00 EDT, Height Start Date: 10/26/20 Status: Ordered Alcohol Pads See Instructions, # 200 each, Refills 11, Tot. Refills 11, Maintenance, To cleans before injections5 x a day., 03/03/21 9:18:00 EST, E11.65, Compound, 157.48, cm, 03/01/21 15:54:00 EST, Height Start Date: 03/03/21 Stop Date: 02/26/22 Status: Ordered Urcmt-Onlrnt-Glii 300 mg oral capsule 1 capsule, By Mouth, 2 times a day, NOT COVERED., # 60 capsule, 11 Refills, [facility], 157.48, cm, 01/27/21 9:30:00 EDT, Height Start Date: 01/30/21 Status: Ordered ammonium lactate 12% topical cream 1 application, Topically, 2 times a day, # 385 Gm, 3 Refills, Maintenance, 04/05/22 13:30:00 EST, Cream, [facility]/pharmacy #[id number], Partial fill upon patient request if the prescription is for a schedule IIopioid drug., 1 application Topically 2 times a day... Start Date: 04/05/22 Stop Date: 08/03/22 Status: Ordered atorvastatin 80 mg oral tablet 1 tablet = 80 mg, By Mouth, Daily, replaces Simvastatin, # 90 tablet, 4 Refills, Maintenance, 08/26/22 14:22:00 EDT, Tablet, [facility]/pharmacy #[id number], replaces simvastatin, 157.5, cm, 11/29/21 15:59:00 EDT, Height Start Date: 08/26/22 Stop Date: 11/19/23 Status: Ordered capsaicin 0.075% topical cream See Instructions, APPLY TO AFFECTED AREA TWICE A DAY, # 57 Gm, 4 Refills, Maintenance, 03/05/22 13:29:00 EST, [facility], 30, APPLY TO AFFECTED AREA TWICE A [...] Refills, Maintenance, 07/09/22 10:30:00 EDT, [facility]/pharmacy #[id number], 30, 1 tablet By Mouth [...] Details, Route to Pharmacy Electronically, [facility]/pharmacy... Start Date: 05/02/22 Status: Ordered diclofenac 1% topical gel See Instructions, APPLY TOPICALLY 4 TIMES A DAY NOT TO EXCEED 16 GRAMS/DAY/SINGLE JOINT OF LOWER EXTREMITIES, # 100 Gm, 6 Refills, Maintenance, 03/19/22 9:28:00 EST, [facility], 30, APPLY TOPICALLY 4 TIMES A DAY NOT TO EXCEED 16 GRAMS/DAY/SINGLE... Start Date: 03/19/22 Status: Ordered docusate sodium 100 mg oral capsule See Instructions, TAKE 1 CAPSULE BY MOUTH TWICE A DAY NEEDED FOR CONSTIPATION, # 60 capsule, 5 Refills, Maintenance, 07/03/22 18:20:00 EDT, [facility]/pharmacy #[id number], Duplicate Rx. Original sent 07/03/22 with routing error. Re- sending to pharmacy, 157.5, cm... Start Date: 07/03/22 Status: Ordered docusate sodium 100 mg oral capsule 100 mg, 1, capsule, By Mouth, 2 times a day, PRN, # 60 capsule, Refills 5, Tot. Refills 5, Maintenance, as needed for constipation, 06/12/22 9:52:00 EDT, Route to Pharmacy Electronically, [facility]/pharmacy #[id number], Partial [...] 0 Refills, Maintenance, 03/22/22 16:35:00 EST, [facility] 64184, 30, INHALE 1 PUFF BY MOUTH TWICE A DAY, 157.5, cm, 03/22/22 13:25:00 EST, Height Start Date: 03/22/22 Status: Ordered fluticasone 50 mcg/inh nasal spray See Instructions, SPRAY 1 SPRAY INTO EACH NOSTRIL EVERY DAY, # 16 mL, 5 Refills, Maintenance, 07/05/22 16:20:00 EDT, [facility], 30, SPRAY 1 SPRAY INTO EACH NOSTRIL [...] mL, 6 Refills, Maintenance, 06/12/22 10:00:00 EDT, [facility], Partial fill upon patie... Start Date: 06/12/22 Status: Ordered Lantus Solostar Pen 100 units/mL subcutaneous solution See Instructions, Take 45 units in the AM and 45 units daily at bedtime. E11.9., # 30 mL, 9 Refills, Maintenance, 06/19/22 16:50:00 EDT, [facility], Partial fill upon patient requestif the prescription is for a schedule II opioid lucas... Start Date: 06/19/22 Status: Ordered lidocaine 5% topical ointment See Instructions, APPLY TO AFFECTED AREA 3 TIMES A DAY, # 35.44 Gm, 11 Refills, Maintenance, 02/28/22 8:51:00 EST, [facility]/pharmacy #[id number], 30, APPLY TO AFFECTED AREA 3 TIMES A DAY, 157.5, cm, 02/21/22 14:36:00 EST, Height Start Date: 02/28/22 Status: Ordered lidocaine 5% topical ointment See Instructions, APPLY TO AFFECTED AREA 3 TIMES A DAY, # 35.44 Gm, 11 Refills, Maintenance, 07/03/22 18:22:00 EDT, [facility]/pharmacy #[id number], 30, Duplicate Rx. Original [...] Refills, Maintenance, 05/01/22 18:04:00 EST, Capsule, [facility]/pharmacy #[id number], Partial fill upon patient request if the prescription is for a schedule II opioid drug., 157.5,... Start Date: 05/01/22 Status: Ordered mirtazapine 15 mg oral tablet 1 tablet = 15 mg, By Mouth, Daily at bedtime, # 30 tablet, 4 Refills, Maintenance, 05/02/22 14:02:00 EST, Tablet, [facility]/pharmacy #[id number], [...] 05/01/21 Start Date: 06/02/21 Status: Ordered Pen [place], 31 G x 8 mm BD Ultra [...] 14:40:00 EST, Route to Pharmacy Electronically, [facility]/pharmacy #[id number], Partial fill upon patient request if the prescription is for a schedule II opi... Start Date: 05/02/22 Status: Ordered regional sales executive grabber tool regional sales executive grabber tool, See Instructions, # 1 each, Refills 0, Tot. Refills 0, Maintenance, please dispense one regional sales executive grabber tool, ICD 10 M54.6, length of [...] 10:05:00 EDT, 06/12/22 10:05:00 EDT, Chew Tablet, [facility], Partial fill upon [...] 12/15/22 14:36:00 EDT, 04/19/22 14:36:00 EST, [facility]/pharmacy #[id number], 157.5, cm, 04/11/22 10:50:00 EST, Height Start Date: 04/19/22 Stop Date: 12/15/22 Status: Ordered Topamax 25 mg oral tablet 3 tablet = 75 mg, By Mouth, Daily at bedtime, # 90 tablet, 6 Refills, Maintenance, 06/26/22 10:14:00 EDT, Tablet, [facility], 157.5, cm, 06/21/22 8:43:00 EDT, Height Start Date: 06/26/22 Stop Date: 01/22/23 Status: Ordered Trulicity Pen 3 mg/0.5 mL subcutaneous solution See Instructions, INJECT 0.5ML SUBCUTANEOUSLY EVERY WEEK, ROTATE INJECTION SITES, # 2 mL, 5 Refills, 01/23/22 16:33:00 EDT, [facility], 157.5, cm, 01/20/22 13:38:00 EDT, Height Start Date: 01/23/22 Status: Ordered Trulicity Pen 4.5 mg/0.5 mL subcutaneous solution See Instructions, 4.5 mg Subcutaneous Infusion weekly. E11.9, # 4 each, 5 Refills, Maintenance, 06/19/22 17:00:00 EDT, [facility], Partial fill upon patient request if the prescription is for a schedule II opioid drug., 157.5, cm, ... Start Date: 06/19/22 Status: Ordered valACYclovir 500 mg oral tablet 1, tablet, By Mouth, 2 times a day, PRN, # 6 tablet, Refills 2, Maintenance, NEEDED FOR OUTBREAKS, 07/11/22 16:11:00 EDT, Route to Pharmacy Electronically, [facility] 44415, 157.5, cm, 06/21/22 8:43:00 EDT, Height Start Date: 07/11/22 Stop Date: 07/14/22 Status: Ordered Vascepa 1 g oral capsule 2 capsule = 2 Gm, By Mouth, 2 times a day, # 360 capsule, 5 Refills, Maintenance, 05/03/20 15:59:00EST, Capsule, [facility]/pharmacy #[id number], 157.48, cm, 03/04/20 14:14:00 EST, Height Start Date: 05/03/20 Status: Ordered Ventolin HFA 108 mcg/inh inhalation aerosol with adapter 1 puffs, Inhalation, 4 times a day, PRN NEEDED FOR WHEEZING, # 18 each, 0 Refills, Maintenance, 04/04/22 12:59:00 EST, [facility] [address]7574, 157.5, cm, 03/22/22 13:25:00 EST, Height Start [...] 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 No wall motion abnormalities, Does [...] Team Personnel Name: Sergo Bazzi MD Position: [facility] Primary Care Physician Member Role: PCP Address: Address: [address] [place] [address] [place] [address]- Name: Lizbeth Barnhart Position: [facility] RN Member Role: Primary Care Nurse Care Team Related Persons Name: LB HENLEY Address: home [address] [place] [address] Name: LB HENLEY Address: home [address] [address] Name: MILENA CUBA Address: home [address] [facility] [place] [address]
--- OUTSIDE RECORDS SUMMARY | 2024-01-23 14:30 | XMS_ITS | Continuity of Care Document ---
Author Organization [facility] Address [address] [place] [address]- Care Team Providers Care Documentation Nurse Name Role Phone Rose Mary FISCHER, Sergo Cole Primary Care Physician Encounter [facility] Date(s): 12/13/21 - 01/13/22 [facility] [address], [place] [address] Attending Physician: Fausto Ritter MD Admitting Physician: Fausto Ritter MD Allergies, Adverse Reactions, Alerts Substance Reaction [...] [facility] [id number] 2Admin Note: vis given dated 10/24/12 3Admin Note: vis given dated 10/01/11 4Admin Note: vis 5Admin Note: vis 6Admin Note: vis given: 10/27/2006 7Admin Note: vis given : 10/10/2005 8Admin Note: vis given 2007- Medications acetaminophen 500 mg oral tablet 2 tablet, By Mouth, 4 times a day, PRN NEEDED FOR PAIN, # 100 tablet, 1 Refills, Acute, 219:52:00 EDT, [facility] 83128, 157.48, cm, 10/11/20 9:39:00 EDT, Height Start Date: 10/26/20 Status: Ordered Alcohol Pads See Instructions, # 200 each, Refills 11, Tot. Refills 11, Maintenance, To cleans before injections5 x a day., 03/03/21 9:18:00 EST, E11.65, Compound, 157.48, cm, 03/01/21 15:54:00 EST, Height Start Date: 03/03/21 Stop Date: 02/26/22 Status: Ordered Ufrsn-Qjxtjp-Dapk 300 mg oral capsule 1 capsule, By Mouth, 2 times a day, NOT COVERED., # 60 capsule, 11 Refills, [facility]506, 157.48, cm, 01/27/21 9:30:00 EDT, Height Start Date: 01/30/21 Status: Ordered ammonium lactate 12% topical cream 1 application, Topically, 2 times a day, # 385 Gm, 5 Refills, Maintenance, 09/08/21 9:35:00 EDT, Cream, [facility]/pharmacy #[id number], Partial fill upon patient request if the [...] tablet, 11 Refills, Maintenance, 08/19/20 16:26:00 EDT, [facility]377, 30, TAKE 1 TABLET BY MOUTH DAILY. [...] 11/10/21 9:17:00 EDT, [id number] fill upon patient [...] # 16 mL, 5 Refills, 12/29/21 15:10:00 EDT,[facility]/pharmacy #[id number], USE 1 SPRAY IN EACH NOSTRIL EVERY DAY, 157.5, cm, 11/29/21 15:59:00 EDT, Height Start Date: 12/29/21 Status: Ordered Lantus Solostar Pen 100 units/mL subcutaneous solution See Instructions, Take 80 units via Subcutaneous Infusion Daily at bedtime. E11.9., # 30 mL, 9 Refills, Maintenance, 08/24/21 9:25:00 EDT, [facility], Partial fill upon patient request if the prescription is for a schedule II opioid d... Start Date: 08/24/21 Status: Ordered Lantus Solostar Pen 100 units/mL subcutaneous solution See Instructions, Decreased to 60U once a day as of 12/29/19, # 30 mL, 9 Refills, Maintenance, 09/20/20 15:10:00 EDT, [facility], NEEDS 30 ML FOR 30 DAY SUPPLY E11.9, 157.48, cm, 05/31/20 9:41:00 EST, Height Start Date: 09/20/20 Status: Ordered lidocaine 5% topical ointment See Instructions, APPLY TO AFFECTED AREA 3 TIMES A DAY, # 35.44 Gm, 11 Refills, [facility], 30, APPLY TO AFFECTED AREA 3 TIMES [...] 2 mL, 5 Refills, 08/24/21 9:20:00 EDT, [facility], 157.48, cm, 08/24/21 8:03:00 EDT, [...] 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
--- OUTSIDE RECORDS SUMMARY | 2024-01-23 14:30 | XMS_ITS | Continuity of Care Document ---
Author Organization [facility] Address [address] [place] [address]- Care Team Providers Care Toll Gate Tender Name Role Phone Sergo Bazzi MD Primary Care Physician [phone] Encounter [facility] [place] Date(s): 08/16/22 - 09/15/22 [facility] [address], [place] [address] Allergies, Adverse Reactions, Alerts Substance Reaction Severity [...] 01/21/08 Given 1Result Comment: [01/22/2017] [facility] [id number] 2Admin Note: vis given dated 10/24/12 3Admin Note: vis given dated 10/01/11 4Admin Note: vis 5Admin Note: vis 6Admin Note: vis given: 10/27/2006 7Admin Note: vis given : 10/10/2005 8Admin Note: vis given 2007- Medications acetaminophen 500 mg oral tablet 2 tablet, By Mouth, 4 times a day, PRN NEEDED FOR PAIN, # 100 tablet, 1 Refills, Acute, 219:52:00 EDT, [facility], 157.48, cm, 10/11/20 9:39:00 EDT, Height Start Date: 10/26/20 Status: Ordered Alcohol Pads See Instructions, # 200 each, Refills 11, Tot. Refills 11, Maintenance, To cleans before injections5 x a day., 03/03/21 9:18:00 EST, E11.65, Compound, 157.48, cm, 03/01/21 15:54:00 EST, Height Start Date: 03/03/21 Stop Date: 02/26/22 Status: Ordered Iwvez-Rjrqex-Mmuz 300 mg oral capsule 1 capsule, By Mouth, 2 times a day, NOT COVERED., # 60 capsule, 11 Refills, [facility], 157.48, cm, 01/27/21 9:30:00 EDT, Height Start Date: 01/30/21 Status: Ordered ammonium lactate 12% topical cream 1 application, Topically, 2 times a day, # 385 Gm, 3 Refills, Maintenance, 08/24/22 14:16:00 EDT, Cream, [facility]/pharmacy #[id number], Partial fill upon patient request if the prescription is for a schedule IIopioid drug., 1 application Topically 2 times a day... Start Date: 08/24/22 Stop Date: 12/22/22 Status: Ordered atorvastatin 80 mg oral tablet 1 tablet = 80 mg, By Mouth, Daily, replaces Simvastatin, # 90 tablet, 4 Refills, Maintenance, 08/26/22 14:22:00 EDT, Tablet, [facility]/pharmacy #[id number], replaces simvastatin, 157.5, cm, 11/29/21 15:59:00 EDT, Height Start Date: 08/26/22 Stop Date: 11/19/23 Status: Ordered BD Single Use Swab 70% topical pad See Instructions, TO CLEANS BEFORE INJECTIONS 5 X A DAY., # 150 Unknown, 11 Refills, Maintenance, 08/16/22 10:15:00 EDT, [facility], 30, TO CLEANS BEFORE INJECTIONS 5 X A DAY., 157.5, cm, 08/01/22 9:27:00 EDT, Height Start Date: 08/16/22 Status: Ordered capsaicin 0.075% topical cream See Instructions, APPLY TO AFFECTED AREA TWICE A DAY, # 57 Gm, 4 Refills, Maintenance, 08/24/22 14:16:00 EDT, [facility]/pharmacy #[id number], 30, APPLY TO [...] tablet, 11 Refills, Maintenance, 07/09/22 10:30:00 EDT, [facility]/pharmacy #[id number], 30, 1 tablet [...] Replace Required Details, Route to Pharmacy Electronically, [facility]/pharmacy... Start Date: 08/30/22 Status: Ordered diclofenac 1% topical gel See Instructions, APPLY TOPICALLY 4 TIMES A DAY NOT TO EXCEED 16 GRAMS/DAY/SINGLE JOINT OF LOWER EXTREMITIES, # 100 Gm, 6 Refills, Maintenance, 08/24/22 14:16:00 EDT, [facility]/pharmacy #[id number], 30, APPLY TOPICALLY 4 TIMES A DAY NOT TO EXCEED 16 GRAMS/DAY/SIN... Start Date: 08/24/22 Status: Ordered docusate sodium 100 mg oral capsule See Instructions, TAKE 1 CAPSULE BY MOUTH TWICE A DAY NEEDED FOR CONSTIPATION, # 60 capsule, 5 Refills, Maintenance, 07/03/22 18:20:00 EDT, [facility]/pharmacy #[id number], Duplicate Rx. Original sent 07/03/22 with routing error. Re- sending to pharmacy, 157.5, cm... Start Date: 07/03/22 Status: Ordered docusate sodium 100 mg oral capsule 100 mg, 1, capsule, By Mouth, 2 times a day, PRN, # 60 capsule, Refills 5, Tot. Refills 5, Maintenance, as needed for constipation, 06/12/22 9:52:00 EDT, Route to Pharmacy Electronically, [facility]/pharmacy #[id number], Partial fill upon [...] day, # 60 each, 0 Refills, Maintenance, 08/24/22 14:16:00 EDT, [facility]/pharmacy #[id number], 30, 1 puffs Inhalation 2 times a day, 157.5, cm, 08/01/22 9:27:00 EDT, Height Start Date: 08/24/22 Status: Ordered fluticasone 50 mcg/inh nasal spray See Instructions, SPRAY 1 SPRAY INTO EACH NOSTRIL EVERY DAY, # 16 mL, 5 Refills, Maintenance, 07/05/22 16:20:00 EDT, [facility], 30, SPRAY 1 SPRAY INTO EACH NOSTRIL [...] mL, 6 Refills, Maintenance, 06/12/22 10:00:00 EDT, [facility], Partial fill upon patie... Start Date: 06/12/22 Status: Ordered Lactaid 3000 units oral tablet 3 tablet = 9,000 units, By Mouth, 3 times a day with meals, # 120 tablet, 5 Refills, Maintenance, 08/17/22 9:03:00 EDT, Tablet, [facility]/pharmacy #[id number], Partial fill upon patient request if the prescription is for a schedule II opioid drug., 157.5, cm, ... Start Date: 08/17/22 Stop Date: 02/13/23 Status: Ordered Lantus Solostar Pen 100 units/mL subcutaneous solution See Instructions, Take 45 units in the AM and 45 units daily at bedtime. E11.9., # 30 mL, 9 Refills, Maintenance, 06/19/22 16:50:00 EDT, [facility], Partial fill upon patient requestif the prescription is for a schedule II opioid lucas... Start Date: 06/19/22 Status: Ordered lidocaine 5% topical ointment See Instructions, APPLY TO AFFECTED AREA 3 TIMES A DAY, # 35.44 Gm, 11 Refills, Maintenance, 02/28/22 8:51:00 EST, [facility]/pharmacy #[id number], 30, APPLY TO AFFECTED AREA 3 TIMES A DAY, 157.5, cm, 02/21/22 14:36:00 EST, Height Start Date: 02/28/22 Status: Ordered lidocaine 5% topical ointment See Instructions, APPLY TO AFFECTED AREA 3 TIMES A DAY, # 35.44 Gm, 11 Refills, Maintenance, 07/03/22 18:22:00 EDT, [facility]/pharmacy #[id number], 30, Duplicate Rx. [...] Date: 05/02/22 Stop Date: 09/29/22 Status: Ordered [place]-3 Fish Oil 1000 mg oral capsule 1 [...] Refills, Maintenance, 06/14/22 16:40:00 EDT, EC Tablet, [facility]/pharmacy #[id number], Partial fill upon patient request if the prescription is for a schedule II opioid drug., 157.5,... Start Date: 06/14/22 Status: Ordered oxyCODONE 10 mg oral tablet TAKE 1/2 TAB EVERY 12 HOURS NEEDED FOR SEVERE NECK/LOW BACK PAIN. DO NOT FILL UNTIL 05/01/21 Start Date: 06/02/21 Status: Ordered Pen Jones, 31 G x 8 mm BD Ultra [...] 08/30/22 13:31:00 EDT, Route to Pharmacy Electronically, [facility]/pharmacy #[id number], Partial fill upon patient request if the prescription is for a schedule II opi... Start Date: 08/30/22 Stop Date: 01/27/23 Status: Ordered mammal control agent grabber tool mammal control agent grabber tool, See Instructions, # 1 each, Refills 0, Tot. Refills 0, Maintenance, please dispense one mammal control agent grabber tool, ICD 10 M54.6, length of [...] 14:16:00 EDT, 08/24/22 14:16:00 EDT, [id number] Partial fill upon patient request if the prescription is for a schedule II... Start Date: 08/24/22 Stop Date: 12/07/22 Status: Ordered SUMAtriptan 25 mg oral tablet 1 tablet, By Mouth, Daily, PRN NEEDED FOR MIGRAINES, for 30 days, MAY RPT DOSE AFTER 2 HRS TO MAX OF 2, # 12 tablet, 7 Refills, Physician Stop 12/15/22 14:36:00 EDT, 04/19/22 14:36:00 EST, [id number] 157.5, cm, 04/11/22 10:50:00 EST, Height Start Date: 04/19/22 Stop Date: 12/15/22 Status: Ordered Topamax 25 mg oral tablet 3 tablet = 75 mg, By Mouth, Daily at bedtime, # 90 tablet, 6 Refills, Maintenance, 06/26/22 10:14:00 EDT, Tablet, [facility], 157.5, cm, 06/21/22 8:43:00 EDT, Height Start Date: 06/26/22 Stop Date: 01/22/23 Status: Ordered Trulicity Pen 3 mg/0.5 mL subcutaneous solution See Instructions, INJECT 0.5ML SUBCUTANEOUSLY EVERY WEEK, ROTATE INJECTION SITES, # 2 mL, 5 Refills, 01/23/22 16:33:00 EDT, [facility], 157.5, cm, 01/20/22 13:38:00 EDT, Height Start Date: 01/23/22 Status: Ordered Trulicity Pen 4.5 mg/0.5 mL subcutaneous solution See Instructions, 4.5 mg Subcutaneous Infusion weekly. E11.9, # 4 each, 5 Refills, Maintenance, 06/19/22 17:00:00 EDT, [facility], Partial fill upon patient request if the prescription is for a schedule II opioid drug., 157.5, cm, ... Start Date: 06/19/22 Status: Ordered valACYclovir 500 mg oral tablet 1, tablet, By Mouth, 2 times a day, PRN, # 6 tablet, Refills 2, Maintenance, NEEDED FOR OUTBREAKS, 07/11/22 16:11:00 EDT, Route to Pharmacy Electronically, [facility], 157.5, cm, 06/21/22 8:43:00 EDT, Height Start Date: 07/11/22 Stop Date: 07/14/22 Status: Ordered Vascepa 1 g oral capsule 2 capsule = 2 Gm, By Mouth, 2 times a day, # 360 capsule, 5 Refills, Maintenance, 05/03/20 15:59:00EST, Capsule, [facility]/pharmacy #[id number], 157.48, cm, 03/04/20 14:14:00 EST, Height Start Date: 05/03/20 Status: Ordered Ventolin HFA 108 mcg/inh inhalation aerosol with adapter 1 puffs, Inhalation, 4 times a day, PRN NEEDED FOR WHEEZING, # 18 each, 0 Refills, Maintenance, 08/24/22 14:16:00 EDT, [facility]/pharmacy #[id number], 157.5, cm, 08/01/22 9:27:00 EDT, Height Start Date: 08/24/22 Status: Ordered Problem List Condition Confirmation Course [...] 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 *Briana Garces, Obstetric Assistant, ICP [phone] Confirmed Active PTSD (post-traumatic stress disorder) Confirmed [...] Name: Rose Mary FISCHER, Sergo Cole Position: [facility] Physician - Primary Care Member Role: PCP Address: Address: [address] [place] [address]- Name: Lizbeth Collins [place] Position: [facility] RN Member Role: Primary Care Nurse Care Team Related Persons Name: LB HENLEY Address: home [address] [place] [address] Name: LB HENLEY Address: home [address] [address] Name: MILENA CUBA Address: home [address] [facility] [address] [place] [id number]
--- OUTSIDE RECORDS SUMMARY | 2024-01-23 14:30 | XMS_ITS | Continuity of Care Document ---
Author Organization [facility] Address [address] [place] [address]- Care Team Providers Care Facility Supervisor Name Role Phone Sergo Bazzi MD Primary Care Physician [place] [facility] [place] - 04/21/22 [facility] [address] [place], [place] [address] Attending Physician: Admtr, Ar8 Admitting Physician: Admtr, Ar8 Referring Physician: Admtr, Ar8 Allergies, Adverse Reactions, Alerts Substance Reaction Severity Status morphine ITCH DIARRHEA Active trazodone DEPRESSION Active Vioxx heart problems Active cortisone Active [...] [01/22/2017] [facility] [id number] 2Admin Note: vis given dated 10/24/12 3Admin Note: vis given dated 10/01/11 4Admin Note: vis 5Admin Note: vis 6Admin Note: vis given: 10/27/2006 7Admin Note: vis given : 10/10/2005 8Admin Note: vis given 2007- Medications acetaminophen 500 mg oral tablet 2 tablet, By Mouth, 4 times a day, PRN NEEDED FOR PAIN, # 100 tablet, 1 Refills, Acute, 219:52:00 EDT, [facility], 157.48, cm, 10/11/20 9:39:00 EDT, Height Start Date: 10/26/20 Status: Ordered Alcohol Pads See Instructions, # 200 each, Refills 11, Tot. Refills 11, Maintenance, To cleans before injections5 x a day., 03/03/21 9:18:00 EST, E11.65, Compound, 157.48, cm, 03/01/21 15:54:00 EST, Height Start Date: 03/03/21 Stop Date: 02/26/22 Status: Ordered Glwix-Ghmpde-Bszf 300 mg oral capsule 1 capsule, By Mouth, 2 times a day, NOT COVERED., # 60 capsule, 11 Refills, [facility], 157.48, cm, 01/27/21 9:30:00 EDT, Height Start Date: 01/30/21 Status: Ordered ammonium lactate 12% topical cream 1 application, Topically, 2 times a day, # 385 Gm, 3 Refills, Maintenance, 04/05/22 13:30:00 EST, Cream, [facility]/pharmacy #[id number], Partial fill upon patient request if the prescription is for a schedule IIopioid drug., 1 application Topically 2 times a day... Start Date: 04/05/22 Stop Date: 08/03/22 Status: Ordered atorvastatin 80 mg oral tablet 1 tablet = 80 mg, By Mouth, Daily, replaces Simvastatin, # 90 tablet, 4 Refills, Maintenance, 08/26/22 14:22:00 EDT, Tablet, [facility]/pharmacy #[id number], replaces simvastatin, 157.5, cm, 11/29/21 15:59:00 EDT, Height Start Date: 08/26/22 Stop Date: 11/19/23 Status: Ordered capsaicin 0.075% topical cream See Instructions, APPLY TO AFFECTED AREA TWICE A DAY, # 57 Gm, 4 Refills, Maintenance, 03/05/22 13:29:00 EST, [facility], 30, APPLY TO AFFECTED AREA TWICE A [...] tablet, 11 Refills, Maintenance, 08/19/20 16:26:00 EDT, [facility], 30, TAKE 1 TABLET BY MOUTH DAILY. [...] Gm, 6 Refills, Maintenance, 03/19/22 9:28:00 EST, [facility], 30, APPLY TOPICALLY 4 TIMES A DAY [...] each, 0 Refills, Maintenance, 03/22/22 16:35:00 EST, [facility], 30, INHALE 1 PUFF BY MOUTH TWICE [...] mL, 3 Refills, Maintenance, 03/22/22 15:43:00 EST, [facility], Partial fill upon patie... Start Date: 03/22/22 Status: Ordered Lantus Solostar Pen 100 units/mL subcutaneous solution See Instructions, Decreased to 60U once a day as of 12/29/19, # 30 mL, 9 Refills, Maintenance, 09/20/20 15:10:00 EDT, [facility], NEEDS 30 ML FOR 30 DAY SUPPLY E11.9, 157.48, cm, 05/31/20 9:41:00 EST, Height Start Date: 09/20/20 Status: Ordered Lantus Solostar Pen 100 units/mL subcutaneous solution See Instructions, Take 80 units via Subcutaneous Infusion Daily at bedtime. E11.9., # 30 mL, 9 Refills, Maintenance, 03/22/22 15:41:00 EST, [facility], Partial fill upon [...] Refills, Maintenance, 03/30/22 10:50:00 EST, EC Tablet, [facility]/pharmacy #[id number], Partial fill upon patient request if the prescription is for a schedule II opioid drug., 157.5,... Start Date: 03/30/22 Status: Ordered oxyCODONE 10 mg oral tablet TAKE 1/2 TAB EVERY 12 HOURS NEEDED FOR SEVERE NECK/LOW BACK PAIN. DO NOT FILL UNTIL 05/01/21 Start Date: 06/02/21 Status: Ordered Pen [place], 31 G x 8 mm BD Ultra [...] 1 Refills, Maintenance, 04/11/22 11:31:00 EST, Tablet, [facility]/pharmacy #[id number], Partial fill upon patient request if the prescription is for a schedule II opioid drug., 157.5, cm, 04/11/22 10:50:00 EST, Height Start Date: 04/11/22 Status: Ordered mailing manager grabber tool mailing manager grabber tool, See Instructions, # 1 each, Refills 0, Tot. Refills 0, Maintenance, please dispense one mailing manager grabber tool, ICD 10 M54.6, length [...] Stop 12/15/22 14:36:00 EDT, 04/19/22 14:36:00 EST, [facility]/pharmacy #[id number], 157.5, cm, 04/11/22 10:50:00 EST, Height Start Date: 04/19/22 Stop Date: 12/15/22 Status: Ordered Topamax 25 mg oral tablet 3 tablet = 75 mg, By Mouth, Daily at bedtime, # 90 tablet, 6 Refills, Maintenance, 04/19/22 14:35:00 EST, Tablet, [facility]/pharmacy #[id number], 157.5, cm, 04/11/22 10:50:00 EST, Height Start Date: 04/19/22 Stop Date: 11/15/22 Status: Ordered Trulicity Pen 3 mg/0.5 mL subcutaneous solution See Instructions, INJECT 0.5ML SUBCUTANEOUSLY EVERY WEEK, ROTATE INJECTION SITES, # 2 mL, 5 Refills, 01/23/22 16:33:00 EDT, [facility], 157.5, cm, 01/20/22 13:38:00 EDT, Height Start Date: 01/23/22 Status: Ordered Trulicity Pen 4.5 mg/0.5 mL subcutaneous solution See Instructions, 4.5 mg Subcutaneous Infusion weekly. 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
--- OUTSIDE RECORDS SUMMARY | 2024-01-23 14:31 | XMS_ITS | Continuity of Care Document ---
Author Organization [facility] Address [address] [place] [address]- Care Team Providers Care Chip Tuner Name Role Phone Rose Mary FISCHER, Sergo Cole Primary Care Physician Encounter [facility] [place] Date(s): 07/14/21 - 08/13/21 [facility] [address] [place] [address]- Allergies, Adverse Reactions, Alerts Substance Reaction Severity [...] 1Result Comment: [01/22/2017] [facility] [id number] 2Admin Note: vis given dated 10/24/12 3Admin Note: vis given dated 10/01/11 4Admin Note: vis 5Admin Note: vis 6Admin Note: vis given: 10/27/2006 7Admin Note: vis given : 10/10/2005 8Admin Note: vis given 2007- Medications acetaminophen 500 mg oral tablet 2 tablet, By Mouth, 4 times a day, PRN NEEDED FOR PAIN, # 100 tablet, 1 Refills, Acute, 219:52:00 EDT, [facility], 157.48, cm, 10/11/20 9:39:00 EDT, Height Start Date: 10/26/20 Status: Ordered Alcohol Pads See Instructions, # 200 each, Refills 11, Tot. Refills 11, Maintenance, To cleans before injections5 x a day., 03/03/21 9:18:00 EST, E11.65, Compound, 157.48, cm, 03/01/21 15:54:00 EST, Height Start Date: 03/03/21 Stop Date: 02/26/22 Status: Ordered Smleg-Zibizk-Nafp 300 mg oral capsule 1 capsule, By Mouth, 2 times a day, NOT COVERED., # 60 capsule, 11 Refills, [facility], 157.48, cm, 01/27/21 9:30:00 EDT, Height Start Date: 01/30/21 Status: Ordered ammonium lactate 12% topical cream 1 application, Topically, 2 times a day, # 385 Gm, 5 Refills, Maintenance, 12/19/20 14:08:00 EDT, Cream, [facility]/pharmacy #5911, Partial fill upon patient request if the prescription is for a schedule IIopioid drug., 1 application Topically 2 times a day... Start Date: 12/19/20 Stop Date: 06/17/21 Status: Ordered aspirin 81 mg oral delayed release tablet 1 tablet, By Mouth, Daily, # 30 tablet, 11 Refills, Maintenance, 06/21/20 17:44:00 EDT, [facility], 157.48, cm, 05/31/20 9:41:00 EST, Height Start Date: 06/21/20 Status: Ordered atorvastatin 80 mg oral tablet 1 tablet = 80 mg, By Mouth, Daily, replaces Simvastatin, # 90 tablet, 4 Refills, Maintenance, 06/02/21 14:22:00 EST, Tablet, [facility]/pharmacy #4471, replaces simvastatin, 157.48, cm, 06/02/21 14:20:00 EST, Height Start Date: 06/02/21 Stop Date: 08/26/22 Status: Ordered capsaicin 0.075% topical cream See Instructions, APPLY TO AFFECTED AREA TWICE A DAY, # 57 Gm, 4 Refills, [facility], 30, APPLY TO AFFECTED AREA TWICE A DAY, 157.48, cm, 11/11/20 9:37:00 EDT, Height Start Date: 01/02/21 Status: Ordered Daily David oral tablet 1 tablet, By Mouth, Daily, INSTR:TAKE IT 2 HOURS SEPARATE FROM ORLISTAT ([place]), # 30 tablet, 11 Refills, Maintenance, 08/19/20 16:26:00 EDT, [facility], 30, TAKE 1 TABLET BY MOUTH DAILY. [...] 6 Refills, Maintenance, 09/02/20 12:50:00 EDT, Gel, [facility]/pharmacy #4471, 157.48, cm, 05/31/20 9:41:00 EST, Height [...] EVERY DAY, # 16 mL, 5 Refills, [facility], 30, USE 1 SPRAY IN EACH NOSTRIL [...] 3, Maintenance, use up to check blood [id number] per day. 90 DAY SUPPLY, E11.9, 03/03/21 [...] mL, 3 Refills, Maintenance, 05/09/21 10:32:00 EST, [facility], Partial fill upon pat... Start Date: 05/09/21 Status: Ordered Lantus Solostar Pen 100 units/mL subcutaneous solution See Instructions, Decreased to 60U once a day as of 12/29/19, # 30 mL, 9 Refills, Maintenance, 09/20/20 15:10:00 EDT, [facility], NEEDS 30 ML FOR [...] 0 Refills, Maintenance, 12/19/20 14:08:00 EDT, Film, [facility]/pharmacy #[id number], Partial fill upon patient request if the prescription is for a schedule II opioid drug., 1 patch Topically Daily, 157.48, cm, 11/11/20 9:37:0... Start Date: 12/19/20 Status: Ordered losartan 50 mg oral tablet 1 tablet, By Mouth, Daily, # 30 tablet, 2 Refills, [facility], 157.48, cm, 05/05/21 9:51:00 EST, Height Start Date: 05/12/21 Status: Ordered mirtazapine 15 mg oral tablet 0 Refills, Maintenance, 06/02/21 14:25:00 EST, Partial fill upon patient request if the prescription is for a schedule II opioid drug. Start Date: 06/02/21 Status: Ordered omeprazole 20 mg oral enteric coated capsule 1 capsule, By Mouth, 2 times a day, # 60 capsule, 1 Refills, [facility], 157.48, cm, 06/02/21 14:20:00 EST, Height Start Date: 07/14/21 Status: Ordered oxyCODONE 10 mg oral tablet TAKE 1/2 TAB EVERY 12 HOURS NEEDED FOR SEVERE NECK/LOW BACK PAIN. DO NOT FILL UNTIL 05/01/21 Start Date: 06/02/21 Status: Ordered Pen [place], 31 G x 8 mm BD Ultra [...] OF 2, # 12 tablet, 7 Refills, [facility]25, 157.48, cm, 05/23/21 13:08:00 EST, Height Start Date: 06/02/21 Status: Ordered tiZANidine 4 mg oral capsule 1 capsule, By Mouth, 3 times a day, # 90 capsule, 3 Refills, [facility] 49881, 157.48, cm, 05/23/21 13:08:00 EST, Height Start Date: 06/01/21 Status: Ordered Topamax 25 mg oral tablet 2 tablet = 50 mg, By Mouth, Daily at bedtime, # 60 tablet, 6 Refills, Maintenance, 04/21/20 13:35:00 EST, Tablet, [facility]/pharmacy #4471, 157.48, cm, 03/04/20 14:14:00 EST, Height Start Date: 04/21/20 Stop Date: 11/17/20 Status: Ordered Trulicity Pen 1.5 mg/0.5 mL subcutaneous solution 0.5 mL = 1.5 mg, Subcutaneous Injection, Every Saturday, for 90 days, E11.9, # 7.5 mL, 3 Refills, Hard Stop 12/03/22 15:26:00 EDT, 12/08/21 15:26:00 EDT, Solution, [facility], E11.65, 157.48, cm, 03/04/20 14:14:00 EST, Height Start Date: 12/08/21 Stop Date: 12/03/22 Status: Ordered Trulicity Pen 3 mg/0.5 mL subcutaneous solution See Instructions, INJECT 0.5ML SUBCUTANEOUSLY EVERY WEEK, ROTATE INJECTION SITES, # 2 mL, 6 Refills, [facility], 157.48, cm, 06/02/21 14:20:00 EST, Height Start Date: 07/11/21 Status: Ordered Vascepa 1 g oral capsule 2 capsule = 2 Gm, By Mouth, 2 times a day, # 360 capsule, 5 Refills, Maintenance, 05/03/20 15:59:00EST, Capsule, [facility]/pharmacy #[id number], 157.48, cm, 03/04/20 14:14:00 EST, [...] Active *Briana Garces, Care Coor dinator, ICP [phone](Confirmed) Active Reflux(Confirmed) Active Hepatic steatosis(Confirmed) Active -EF [...]
--- OUTSIDE RECORDS SUMMARY | 2024-01-23 14:31 | XMS_ITS | Continuity of Care Document ---
Author Organization [facility] ter Address [address] [place] [id number]- Care Team Providers Care Paraeducator Name Role Phone Sergo Bazzi MD Primary Care Physician Encounter [facility] Date(s): 11/03/21 - 11/03/[address] [address] Discharge Disposition: A-D/C Home Attending Physician: Dinesh Pritchett MD Admitting Physician: Dinesh Pritchett MD Referring Physician: Dinesh Pritchett MD Allergies, Adverse Reactions, Alerts Substance Reaction [...] Comment: [01/22/2017] [facility] [id number] 2Admin Note: vis given dated 10/24/12 3Admin Note: vis given dated 10/01/11 4Admin Note: vis 5Admin Note: vis 6Admin Note: vis given: 10/27/2006 7Admin Note: vis given : 10/10/2005 8Admin Note: vis given 2007- Medications acetaminophen 500 mg oral tablet 2 tablet, By Mouth, 4 times a day, PRN NEEDED FOR PAIN, # 100 tablet, 1 Refills, Acute, 219:52:00 EDT, [facility], 157.48, cm, 10/11/20 9:39:00 EDT, Height Start Date: 10/26/20 Status: Ordered Alcohol Pads See Instructions, # 200 each, Refills 11, Tot. Refills 11, Maintenance, To cleans before injections5 x a day., 03/03/21 9:18:00 EST, E11.65, Compound, 157.48, cm, 03/01/21 15:54:00 EST, Height Start Date: 03/03/21 Stop Date: 02/26/22 Status: Ordered Pxrxr-Btoeys-Yjtk 300 mg oral capsule 1 capsule, By Mouth, 2 times a day, NOT COVERED., # 60 capsule, 11 Refills, [facility], 157.48, cm, 01/27/21 9:30:00 EDT, Height Start Date: 01/30/21 Status: Ordered ammonium lactate 12% topical cream 1 application, Topically, 2 times a day, # 385 Gm, 5 Refills, Maintenance, 09/08/21 9:35:00 EDT, Cream, [facility]/pharmacy #[id number], Partial fill upon patient request if the prescription is for a schedule II opioid drug., 1 application Topically 2 times a day,... Start Date: 09/08/21 Stop Date: 03/07/22 Status: Ordered atorvastatin 80 mg oral tablet 1 tablet = 80 mg, By Mouth, Daily, replaces Simvastatin, # 90 tablet, 4 Refills, Maintenance, 06/02/21 14:22:00 EST, Tablet, [facility]/pharmacy #[id number], replaces simvastatin, 157.48, cm, 06/02/21 14:20:00 EST, Height Start Date: 06/02/21 Stop Date: 08/26/22 Status: Ordered Daily David oral tablet 1 tablet, By Mouth, Daily, INSTR:TAKE IT 2 HOURS SEPARATE FROM ORLISTAT ([place]), # 30 tablet, 11 Refills, Maintenance, 08/19/20 16:26:00 EDT, [facility], 30, TAKE 1 TABLET BY MOUTH DAILY. [...] 6 Refills, Maintenance, 09/01/21 13:11:00 EDT, Gel, [facility]/pharmacy #[id number], 157.48, cm, 08/24/21 8:03:00 EDT, Height Start Date: 09/01/21 Stop Date: 03/30/22 Status: Ordered fentaNYL 25 mcg/hr transdermal film, [...] EVERY DAY, # 16 mL, 5 Refills, [facility] 95265, 30, USE 1 SPRAY IN EACH NOSTRIL EVERY DAY, 157.48, cm, 11/11/20 9:37:00 EDT, Height Start Date: 12/26/20 Status: Ordered Lantus Solostar Pen 100 units/mL subcutaneous solution See Instructions, Take 80 units via Subcutaneous Infusion Daily at bedtime. E11.9., # 30 mL, 9 Refills, Maintenance, 08/24/21 9:25:00 EDT, [facility], Partial fill upon patient request if the prescription is for a schedule II opioid d... Start Date: 08/24/21 Status: Ordered Lantus Solostar Pen 100 units/mL subcutaneous solution See Instructions, Decreased to 60U once a day as of 12/29/19, # 30 mL, 9 Refills, Maintenance, 09/20/20 15:10:00 EDT, [facility], NEEDS 30 ML FOR 30 DAY SUPPLY E11.9, 157.48, cm, 05/31/20 9:41:00 EST, Height Start Date: 09/20/20 Status: Ordered lidocaine 4% topical film 1 patch, Topically, Daily, # 6 each, 0 Refills, Maintenance, 09/08/21 9:35:00 EDT, Film, [facility]/pharmacy #[id number], Partial fill upon patient request if the prescription is for a schedule II opioid drug., 1patch Topically Daily, 157.48, cm, 08/24/21 8:03:00... Start Date: 09/08/21 Status: Ordered losartan 50 mg oral tablet 1 tablet, By Mouth, Daily, # 30 tablet, 2 Refills, [facility] 72431, 157.48, cm, 05/05/21 9:51:00 EST, Height Start Date: 05/12/21 Status: Ordered Lyrica 25 mg oral capsule See Instructions, 1 capsule By Mouth 1 time daily at bedtime. E11.9, # 30 each, 5 Refills, Maintenance, 09/18/21 12:21:00 EDT, Capsule, [facility]/pharmacy #[id number], Partial fill upon patient [...] # 12 tablet, 7 Refills, [facility], 157.48, cm, 05/23/21 13:08:00 EST, Height Start Date: 06/02/21 Status: Ordered tiZANidine 4 mg oral capsule 1 capsule, By Mouth, 3 times a day, # 90 capsule, 3 Refills, [facility], 157.48, cm, 05/23/21 13:08:00 EST, Height Start [...] 2 mL, 5 Refills, 08/24/21 9:20:00 EDT, [facility], 157.48, cm, 08/24/21 8:03:00 [...] Active *Briana Garces, Care Coor dinator, ICP [phone](Confirmed) Active Reflux(Confirmed) Active Hepatic steatosis(Confirmed) Active 16967 -EF 60-65%. No wall motion abnormalities, Does [...] Procedure Date Related Diagnosis Body Site Status Esophagogastroduodenoscopy and biopsy 11/03/21 Completed Vital Signs Most recent to oldest [Reference Range]: 1 2 3 Height 157.5 cm (11/03/21 7:58 AM) Weight 90.7 kg (11/03/21 7:58 AM) Oxygen Saturation [94-100 %] 99 % (11/03/21 9:10 AM) 100 % (11/03/21 9:00 AM) 97 % (11/03/21 7:58 AM) Pulse Rate [55-90 bpm] 79 bpm (11/03/21 7:58 AM) Body Mass Index [18.5-24.99] 36.56 *>HHI* (11/03/21 7:58 AM) Blood Pressure [90-138/55-84 mm Hg] 114/80mm Hg (11/03/21 9:10 AM) 134/100mm Hg (11/03/21 9:00 AM) 131/78mm Hg (11/03/21 7:58 AM) Respiratory Rate [16-30 br/min] 18 br/min (11/03/21 9:10 AM) 18 br/min (11/03/21 9:00 AM) 14 br/min *L* (11/03/21 7:58 AM) Temperature [96.8-100.4 DegF] 99.1 DegF (11/03/21 7:58 AM) Mode of Delivery (Oxygen) Room air (11/03/21 9:10 AM) Simple face mask (11/03/21 9:00 AM) Room air (11/03/21 7:58 AM) Blood pressure sites Arm, left (11/03/21 9:10 AM) Arm, left (11/03/21 9:00 AM) Arm, left (11/03/21 7:58 AM) Temperature Route Temporal (11/03/21 7:58 AM) Weight Obtained Via Patient/family state d (11/03/21 7:58 AM) Social History Social History Type Response Smoking Status Never smoker entered on: 11/10/13 Sex Female
--- OUTSIDE RECORDS SUMMARY | 2024-01-23 14:31 | XMS_ITS | Continuity of Care Document ---
Author Organization [facility] Address [address] [place] [address]- Care Team Providers Care Project Management Manager Name Role Phone Rose Mary FISCHER, Sergo Cole Primary Care Physician Encounter [facility] [place] Date(s): 06/23/19 - 06/30/19 [facility] [address] [place] [address]- [facility] Attending Physician: Sergo Bazzi MD Admitting Physician: [...] Given 1Result Comment: [01/22/2017] [facility] [id number] 2Admin Note: vis given dated 10/24/12 3Admin [...] tablet, 5 Refills, Maintenance, 05/05/19 11:32:00 EST, [facility] 48663, 157.48, cm, 04/27/19 15:43:00 EST, Height Start Date: 05/05/19 Status: Ordered atorvastatin 80 mg oral tablet 1 tablet = 80 mg, By Mouth, Daily, replaces Simvastatin, # 90 tablet, 1 Refills, Maintenance, 06/22/19 15:26:00 EDT, Tablet, [facility]/pharmacy #[id number], replaces simvastatin, 157.48, cm, 04/27/19 15:43:00 EST, Height Start Date: 06/22/19 Stop Date: 12/19/19 Status: Ordered capsaicin 0.075% topical cream 1 application, Topically, 2 times a day, for 30 days, # 60 Gm, 4 Refills, Acute 10/26/19 10:54:00 EDT, 05/29/19 10:54:00 EST, Cream, [facility]/pharmacy #[id number], 1 application Topically 2 times a day,x30 days, 157.48, cm, 04/27/19 15:43:00 EST, Height Start Date: 05/29/19 Stop Date: 10/26/19 Status: Ordered cetirizine 10 mg oral tablet [...] extremities, # 100 Gm, 6 Refills, Maintenance, 05/15/19 15:00:00 EST, Gel, [facility]/pharmacy #[id number], 157.48, cm, 04/27/19 15:43:00 EST, Height Start Date: 05/15/19 Stop Date: 12/11/19 Status: Ordered diclofenac 1% topical gel 1 [...] constipation, # 60 tablet, 0 Refills, Maintenance, 04/27/19 11:54:00 EST, Tablet, [facility]/pharmacy #[id number], 157.48, cm, 03/09/19 15:46:00 EST, Height Start Date: 04/27/19 Stop Date: 05/27/19 Status: Ordered fentanyl 12 mcg/hr transdermal film, extended release 1 patch, Topically, Every 72 hours, 0 Refills, Maintenance, 02/16/19 14:50:52 EST, Patch, Partial fill upon patient request Start Date: 02/16/19 Status: Ordered fluticasone 50 mcg/inh nasal spray See Instructions, USE 1 SPRAY IN EACH NOSTRIL TWICE A DAY, # 16 mL, 1 Refills, Maintenance, [facility] 81270, 30, USE 1 SPRAY IN EACH NOSTRIL TWICE A DAY, 157.48, cm, 04/27/19 15:43:00 EST, Height Start Date: 05/05/19 Status: Ordered Freestyle InsuLinx Test Strips See Instructions, # 120 each, Refills 6, Tot. Refills 6, Maintenance, Use to check blood glucose levels up to 4 X A DAY TESTING, E11.9, 06/23/19 14:41:00 EDT, E11.9, 90 DAY SUPPLY, Compound, 157.48, cm, 04/27/19 15:43:00 EST, Height Start Date: 06/23/19 Status: Ordered Freestyle Lite Lancets See Instructions, # 300 each, Refills 4, Tot. Refills 4, Maintenance, use up to 4x per day. 90 DAY SUPPLY, 02/16/19 15:02:27 EST, E11.9, Compound Start Date: 02/16/19 Stop Date: 05/17/19 Status: Ordered Freestyle Lite Monitor See Instructions, # 1 each, Maintenance, Use to check blood glucose levels up to 4 times a day, E 11.9, 06/23/19 14:29:00 EDT, Compound, 157.48, cm, 04/27/19 15:43:00 EST, Height Start Date: 06/23/19 Status: Ordered Gloves See Instructions, # 2 [...] 11 Refills, Maintenance, 05/15/19 15:00:00 EST, Ointment, [facility]/pharmacy #[id number], 1 application Topically 3 times a day,x30 days, 157.48, cm, 04/27/19 15:43:00 EST, Height Start Date: 05/15/19 Stop Date: 05/09/20 Status: Ordered lidocaine 5% topical ointment 1 [...] 06/22/19 15:26:00 EDT, Route to Pharmacy Electronically, [facility]/pharmacy #[id number], 157.48, cm, 04/27/19 15:43:00 [...] request Start Date: 02/16/19 Status: Ordered Pen [place], 31 G x 8 mm BD Ultra [...] Saturday, # 6.5 mL, 5 Refills, Maintenance, 06/22/19 15:26:00 EDT, Solution, [facility]/pharmacy #4471, E11.65, 157.48, cm, 04/27/19 [...] r HSV(Confirmed) 5 02/20/10 Active Reflux(Confirmed) Active 75149 -EF 60-65%. No wall motion abnormalities, Does [...]
--- OUTSIDE RECORDS SUMMARY | 2024-01-23 14:31 | XMS_ITS | Continuity of Care Document ---
Author Organization [facility] Address [address] [facility], [address], [address] [place] [address]- Care Team Providers Care Senior Process Engineer Name Role Phone Sergo Bazzi MD Primary Care Physician En[place] [facility] [place] Date(s): 05/16/23 - 05/23/23 [facility] [address], [address] [place], [place] [address] Attending Physician: Not on Staff, Attending [...] Given 1Result Comment: [01/22/2017] [facility] [id number] 2Admin Note: vis given dated 10/24/12 3Admin [...] 100 tablet, 1 Refills, Acute, 219:52:00 EDT, [facility] [address]44, 157.48, cm, 10/11/20 9:39:00 EDT, Height Start Date: 10/26/20 Status: Ordered Alcohol Pads See Instructions, # 200 each, Refills 11, Tot. Refills 11, Maintenance, To cleans before injections5 x a day., 03/03/21 9:18:00 EST, E11.65, Compound, 157.48, cm, 03/01/21 15:54:00 EST, Height Start Date: 03/03/21 Stop Date: 02/26/22 Status: Ordered Ozlxu-Hilccb-Hhkn 300 mg oral capsule 1 capsule, By Mouth, 2 times a day, NOT COVERED., # 60 capsule, 11 Refills, [facility] 72461, 157.48, cm, 01/27/21 9:30:00 EDT, Height Start Date: 01/30/21 Status: Ordered ammonium lactate 12% topical cream 1 application, Topically, 2 times a day, # 385 Gm, 1 Refills, Maintenance, 12/22/22 14:16:00 EDT, Cream, [facility]/pharmacy #[id number], Partial fill upon patient request if the prescription is for a schedule IIopioid drug., 1 application Topically 2 times a day... Start Date: 12/22/22 Stop Date: 02/20/23 Status: Ordered atorvastatin 80 mg oral tablet 1 tablet, By Mouth, Daily, INSTR:REPLACES SIMVASTATIN, # 90 tablet, 1 Refills, Maintenance, 05/22/23 12:07:00 EST, [facility], 157, cm, 05/06/23 14:23:00 EST, Height, 88.3, [...] 04/30/23 7:27:00 EST, Route to Pharmacy Electronically, [facility]/pharmacy #[id number], Partial fill upon patient request if the prescription is for a schedule II opioi... Start Date: 04/30/23 Stop Date: 09/27/23 Status: Ordered capsaicin 0.075% topical cream See Instructions, APPLY TO AFFECTED AREA TWICE A DAY, # 57 Gm, 4 Refills, Maintenance, 04/11/23 10:18:00 EST, [facility], 30, APPLY TO AFFECTED AREA TWICE A [...] tablet, 11 Refills, Maintenance, 07/09/22 10:30:00 EDT, [facility]/pharmacy #[id number], 30, 1 tablet [...] each, 0 Refills, Maintenance, 09/20/22 9:36:00 EDT, [facility] 8[facility]15, 30, INHALE 1 PUFF BY MOUTH TWICE A DAY, 157.5, cm, 09/05/22 16:22:00 EDT, Height Start Date: 09/20/22 Status: Ordered fluticasone 50 mcg/inh nasal spray See Instructions, SPRAY 1 SPRAY INTO EACH NOSTRIL EVERY DAY, # 16 mL, 5 Refills, Maintenance, 07/05/22 16:20:00 EDT, [facility], 30, SPRAY 1 SPRAY INTO EACH NOSTRIL [...] Stop Date: 09/18/22 Status: Ordered FREESTYLE LANCETS [facility] [place]isc[place] FREESTYLE LANC[place] [facility] [place], See Instructions, # 100 Unknown, 5 [...] tablet, 4 Refills, Maintenance, 03/11/23 15:50:00 EST, [facility] 35277, 157.5, cm, 02/19/23 9:20:00 EST, Height Start [...] mL, 6 Refills, Maintenance, 11/26/22 14:55:00 EDT, [facility], Partial fill upon patie... Start Date: 11/26/22 Status: Ordered lactase 3000 u oral tablet 3 tablet, By Mouth, 3 times a day with meals, X30 DAYS., # 120 tablet, 5 Refills, Maintenance, 04/25/23 15:25:00 EST, [facility] 47370, 157, cm, 04/17/23 7:57:00 EST, Height, 88.3, kg, 04/16/23 11:33:00 EST, Dry Weight Start Date: 04/25/23 Status: Ordered Lantus Solostar Pen 100 units/mL subcutaneous solution See Instructions, Take 45 units in the AM and 45 units daily at bedtime. E11.9., # 30 mL, 9 Refills, Maintenance, 11/26/22 14:55:00 EDT, [facility], Partial fill upon patient requestif the prescription is for a schedule II opioid lucas... Start Date: 11/26/22 Status: Ordered levothyroxine 0.137 mg oral tablet 1 tablet = 137 mcg, By Mouth, Daily, # 30 tablet, 2 Refills, Maintenance, 04/17/23 7:46:00 EST, Tablet, [facility]/pharmacy #[id number], Partial fill upon patient request if the prescription is for a schedule II opioid drug., 157, cm, 04/16/23 11:33:00 EST, Height... Start Date: 04/17/23 Status: Ordered lidocaine 5% topical ointment See Instructions, APPLY TO AFFECTED AREA 3 TIMES A DAY, # 35.44 Gm, 11 Refills, Maintenance, 02/28/22 8:51:00 EST, [facility]/pharmacy #[id number], 30, APPLY TO AFFECTED AREA 3 TIMES A DAY, 157.5, cm, 02/21/22 14:36:00 EST, Height Start Date: 02/28/22 Status: Ordered lidocaine 5% topical ointment See Instructions, APPLY TO AFFECTED AREA 3 TIMES A DAY, # 35.44 Gm, 11 Refills, Maintenance, 07/03/22 18:22:00 EDT, [facility]/pharmacy #[id number], 30, Duplicate Rx. Original sent 07/03/22 with routing error. Re-sending to pharmacy, APPLY TO AFFECTED AREA 3 TIMES A... Start Date: 07/03/22 Status: Ordered losartan 50 mg oral tablet See Instructions, TAKE 1 TABLET BY MOUTH EVERY DAY, # 90 tablet, 1 Refills, Maintenance, 03/11/23 15:50:00 EST, [facility] 01068, 157.5, cm, 02/19/23 9:20:00 EST, Height Start Date: 03/11/23 Status: Ordered Lyrica 25 mg oral capsule See Instructions, 1 capsule By Mouth 1 time daily at bedtime. E11.9, # 30 each, 5 Refills, Maintenance, 01/21/23 15:40:00 EDT, Capsule, [facility]/pharmacy #[id number], Partial fill [...] 2 Refills, Soft Stop, 02/22/23 14:30:00 EST, [facility]/pharmacy #[id number], Partial fill upon patient request if the prescription is for a schedule II opioid drug., 157.5, cm, 02/19/23 9:20:00 EST, Height Start Date: 02/22/23 Status: Ordered Constable-3 Fish Oil 1000 mg oral capsule 1 capsule = 1,000 mg, By Mouth, Daily, # 90 capsule, 1 Refills, Maintenance, 08/01/22 10:17:00 EDT,[facility]/pharmacy #[id number], Partial fill upon [...] Refills, Maintenance, 06/14/22 16:40:00 EDT, EC Tablet, [facility]/pharmacy #[id number], Partial fill upon patient request if the prescription is for a schedule II opioid drug., 157.5,... Start Date: 06/14/22 Status: Ordered oxyCODONE 10 mg oral tablet TAKE 1/2 TAB EVERY 12 HOURS NEEDED FOR SEVERE NECK/LOW BACK PAIN. DO NOT FILL UNTIL 05/01/21 Start Date: 06/02/21 Status: Ordered Pen [place]y, 31 G x 8 mm BD Ultra [...] 12/06/22 13:08:00 EDT, Route to Pharmacy Electronically, [facility]/pharmacy #[id number], Partial fill upon patient request if the prescription is for a schedule II opi... Start Date: 12/06/22 Stop Date: 05/05/23 Status: Ordered resin coater grabber tool resin coater grabber tool, See Instructions, # 1 each, Refills 0, Tot. Refills 0, Maintenance, please dispense one resin coater grabber tool, ICD 10 M54.6, length of [...] tablet, 10 Refills, Maintenance, 01/17/23 8:54:00 EDT, [facility], 157.5, cm, 12/28/22 15:12:00 EDT, Height Start Date: 01/17/23 Status: Ordered Trulicity Pen 4.5 mg/0.5 mL subcutaneous solution See Instructions, INJECT 4.5 MG SUBCUTANEOUSLY ONCE A WEEK, # 2 mL, 5 Refills, Maintenance, 11/21/22 8:33:00 EDT, [facility], 157.5, cm, 11/16/22 13:50:00 EDT, Height Start Date: 11/21/22 Status: Ordered valACYclovir 500 mg oral tablet 1, tablet, By Mouth, 2 times a day, PRN, # 6 tablet, Refills 0, Maintenance, NEEDED FOR OUTBREAKS, 05/22/23 12:07:00 EST, Route to Pharmacy Electronically, [facility] 71579, 157, cm, 05/06/23 14:23:00 EST, Height, 88.3, [...] Refills, Maintenance, 09/17/22 15:25:00 EDT, [facility], 157.5, cm, 09/05/22 16:22:00 EDT, Height Start [...] 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 No wall motion abnormalities, Does [...] Team Personnel Name: Sergo Bazzi MD Position: [facility] Physician - Primary Care Member Role: PCP Address: Address: [address] [place] [address]- Name: Lizbeth oCllins [place] Position: [facility] RN Member Role: Primary Care Nurse Care Team Related Persons Name: LB HENLEY Address: home [address] [place] [address] Name: LB HENLEY Address: home [address] [address] Name: MILENA CUBA Address: home [address] [place] [address]
--- OUTSIDE RECORDS SUMMARY | 2024-01-23 14:31 | XMS_ITS | Continuity of Care Document ---
Author Organization [facility] Address [address] [place] [address]- Care Team Providers Care Exercise Equipment Repair Technician Name Role Phone Rose Mary FISCHER, Sergo Cole Primary Care Physician [place] [facility] [place] - 11/09/21 [facility] [address] [place] [address]- Attending Physician: Broderick Washburn Admitting Physician: Broderick Washburn Referring Physician: AdmtrBroderick Allergies, Adverse Reactions, Alerts Substance Reaction Severity Status morphine ITCH DIARRHEA Active trazodone DEPRESSION Active Ultram nausea, vomit Active cortisone Active Motrin eat lining of [...] 8 01/21/08 Given 1Result Comment: [01/22/2017] [facility] [id number] 2Admin Note: vis given dated 10/24/12 3Admin Note: vis given dated 10/01/11 4Admin Note: vis 5Admin Note: vis 6Admin Note: vis given: 10/27/2006 7Admin Note: vis given : 10/10/2005 8Admin Note: vis given 2007- Medications acetaminophen 500 mg oral tablet 2 tablet, By Mouth, 4 times a day, PRN NEEDED FOR PAIN, # 100 tablet, 1 Refills, Acute, 219:52:00 EDT, [facility], 157.48, cm, 10/11/20 9:39:00 EDT, Height Start Date: 10/26/20 Status: Ordered Alcohol Pads See Instructions, # 200 each, Refills 11, Tot. Refills 11, Maintenance, To cleans before injections5 x a day., 03/03/21 9:18:00 EST, E11.65, Compound, 157.48, cm, 03/01/21 15:54:00 EST, Height Start Date: 03/03/21 Stop Date: 02/26/22 Status: Ordered Sqxmu-Ogmacz-Ctds 300 mg oral capsule 1 capsule, By Mouth, 2 times a day, NOT COVERED., # 60 capsule, 11 Refills, [facility], 157.48, cm, 01/27/21 9:30:00 EDT, Height Start [...] 11 Refills, Maintenance, 08/19/20 16:26:00 EDT, [facility] ST[facility], 30, TAKE 1 TABLET BY MOUTH DAILY. [...] 6 Refills, Maintenance, 09/01/21 13:11:00 EDT, Gel, [facility]/pharmacy #[id number], 157.48, cm, 08/24/21 8:03:00 EDT, [...] EVERY DAY, # 16 mL, 5 Refills, [facility] 26734, 30, USE 1 SPRAY IN EACH NOSTRIL EVERY DAY, 157.48, cm, 11/11/20 9:37:00 EDT, Height Start Date: 12/26/20 Status: Ordered Lantus Solostar Pen 100 units/mL subcutaneous solution See Instructions, Take 80 units via Subcutaneous Infusion Daily at bedtime. E11.9., # 30 mL, 9 Refills, Maintenance, 08/24/21 9:25:00 EDT, [facility], Partial fill upon patient request if the prescription is for a schedule II opioid d... Start Date: 08/24/21 Status: Ordered Lantus Solostar Pen 100 units/mL subcutaneous solution See Instructions, Decreased to 60U once a day as of 12/29/19, # 30 mL, 9 Refills, Maintenance, 09/20/20 15:10:00 EDT, [facility], NEEDS 30 ML FOR 30 DAY SUPPLY E11.9, 157.48, cm, 05/31/20 9:41:00 EST, Height Start Date: 09/20/20 Status: Ordered lidocaine 5% topical ointment See Instructions, APPLY TO AFFECTED AREA 3 TIMES A DAY, # 35.44 Gm, 11 Refills, [facility], 30, APPLY TO AFFECTED AREA 3 TIMES A DAY, 157.5, cm, 11/07/21 10:51:00 EDT, Height Start Date: 11/09/21 Status: Ordered losartan 50 mg oral tablet 1 tablet, By Mouth, Daily, # 30 tablet, 2 Refills, [facility]28, 157.48, cm, 05/05/21 9:51:00 EST, Height Start Date: 05/12/21 Status: Ordered Lyrica 25 mg oral capsule See Instructions, 1 capsule By Mouth 1 time daily at bedtime. E11.9, # 30 each, 5 Refills, Maintenance, 09/18/21 12:21:00 EDT, Capsule, [facility]/pharmacy #[id number], Partial fill [...] # 12 tablet, 7 Refills, [facility], 157.48, cm, 05/23/21 13:08:00 EST, Height Start Date: 06/02/21 Status: Ordered tiZANidine 4 mg oral capsule 1 capsule, By Mouth, 3 times a day, # 90 capsule, 3 Refills, [facility], 157.48, cm, 05/23/21 13:08:00 EST, Height Start Date: 06/01/21 Status: Ordered Topamax 25 mg oral tablet 2 tablet = 50 mg, By Mouth, Daily at bedtime, # 60 tablet, 6 Refills, Maintenance, 08/29/21 14:04:00 EDT, Tablet, [facility]/pharmacy #[id number], 157.48, cm, 08/24/21 8:03:00 EDT, Height Start Date: 08/29/21 Stop Date: 03/27/22 Status: Ordered Trulicity Pen 3 mg/0.5 mL subcutaneous solution See Instructions, INJECT 0.5ML SUBCUTANEOUSLY EVERY WEEK, ROTATE INJECTION SITES, # 2 mL, 5 Refills, 08/24/21 9:20:00 EDT, [facility], 157.48, cm, 08/24/21 [...] positive fo r HSV(Confirmed) 5 02/20/10 Active *Brianaromina Garces, Care Coor dinator, ICP [phone](Confirmed) Active Reflux(Confirmed) Active Hepatic steatosis(Confirmed) Active -EF [...] Procedure Date Related Diagnosis Body Site Status colonoscopy 1 06/08/11 Completed EGD 2 06/08/11 Completed 1normal mucosa was in the whole colon and terminal ileum; grade 1 internal hemorrhoids; diverticulosis of the sigmoid colon; there were no polyps. follow up with Dr Christensen prn. repeat colonoscopy inten years. if biopsies show H. pylori, will call pt back to initiate therapy. continue proton inhibitor. erowe 2normal mucosa in the whole esophagus; erosion in the antrum (biopsy); normal mucosa in the whole duodenum. erowe Social History Social History Type Response Smoking Status Never smoker entered on: 11/10/13 Sex Female
--- OUTSIDE RECORDS SUMMARY | 2024-01-23 14:31 | XMS_ITS | Continuity of Care Document ---
Author Organization [facility] Address [address] [place] [address]- Care Team Providers Care Customer Account Specialist Name Role Phone Sergo Bazzi MD Primary Care Physician [phone] Encounter [facility] [place] Date(s): 01/25/23 - 05/25/23 [facility] [address] [place] [address]- Attending Physician: Dinesh Pritchett MD Admitting Physician: Dinesh Pritchett MD Referring Physician: Sergo Bazzi MD Allergies, [...] 01/21/08 Given 1Result Comment: [01/22/2017] [facility] [id number] 2Admin Note: vis given dated 10/24/12 3Admin [...] 100 tablet, 1 Refills, Acute, 219:52:00 EDT, [facility] 34138, 157.48, cm, 10/11/20 9:39:00 EDT, Height Start Date: 10/26/20 Status: Ordered Alcohol Pads See Instructions, # 200 each, Refills 11, Tot. Refills 11, Maintenance, To cleans before injections5 x a day., 03/03/21 9:18:00 EST, E11.65, Compound, 157.48, cm, 03/01/21 15:54:00 EST, Height Start Date: 03/03/21 Stop Date: 02/26/22 Status: Ordered Pfmyk-Vosyvg-Vshe 300 mg oral capsule 1 capsule, By Mouth, 2 times a day, NOT COVERED., # 60 capsule, 11 Refills, [facility] 95859, 157.48, cm, 01/27/21 9:30:00 EDT, Height Start Date: 01/30/21 Status: Ordered ammonium lactate 12% topical cream 1 application, Topically, 2 times a day, # 385 Gm, 1 Refills, Maintenance, 12/22/22 14:16:00 EDT, Cream, [id number], Partial fill upon patient request if the prescription is for a schedule IIopioid drug., 1 application Topically 2 times a day... Start Date: 12/22/22 Stop Date: 02/20/23 Status: Ordered atorvastatin 80 mg oral tablet 1 tablet, By Mouth, Daily, INSTR:REPLACES SIMVASTATIN, # 90 tablet, 1 Refills, Maintenance, 05/22/23 12:07:00 EST, [facility], 157, cm, 05/06/23 14:23:00 EST, Height, 88.3, kg, 04/16/23 11:33:00EST, Dry Weight Start Date: 05/22/23 Status: Ordered BD Single Use Swab 70% topical pad See Instructions, TO CLEANS BEFORE INJECTIONS 5 X A DAY., # 150 Unknown, 11 Refills, Maintenance, 08/16/22 10:15:00 EDT, [facility], 30, TO CLEANS BEFORE INJECTIONS 5 X A DAY., 157.5, cm, 08/01/22 9:27:00 EDT, Height Start Date: 08/16/22 Status: Ordered busPIRone 5 mg oral tablet 5 mg, 1, tablet, By Mouth, 2 times a day, # 60 tablet, Refills 4, Tot. Refills 4, Maintenance, 04/30/23 7:27:00 EST, Route to Pharmacy Electronically, [facility]/pharmacy #[id number], Partial fill upon patient request if the prescription is for a schedule II opioi... Start Date: 04/30/23 Stop Date: 09/27/23 Status: Ordered capsaicin 0.075% topical cream See Instructions, APPLY TO AFFECTED AREA TWICE A DAY, # 57 Gm, 4 Refills, Maintenance, 04/11/23 10:18:00 EST, [facility], 30, APPLY TO AFFECTED AREA TWICE A DAY, 157, cm, 04/11/23 10:02:00 EST, Height, 88.6, kg, 04/11/23 10:02:00 EST, Dry Weight Start Date: 04/11/23 Status: Ordered CPAP Machine See Instructions, # 1 each, Maintenance, CPAP 8 cm H20, use Daily when sleeping, 04/05/23 13:31:00 EST, Supply Start Date: 1/5/24 Status: Ordered CPAP Supplies CPAP Supplies, See Instructions, # 1 each, Refills 0, Tot. Refills 0, Maintenance, Directions: Use daily when sleeping Dx: STORMY G47.33 Duration: Lifetime, 03/20/22 11:01:00 EST, Supply Start Date: 03/20/22 Status: Ordered Daily David oral tablet 1 tablet, By Mouth, Daily, INSTR:TAKE IT 2 HOURS SEPARATE FROM ORLISTAT ([place]), # 30 tablet, 11 Refills, Maintenance, 07/09/22 10:30:00 EDT, [facility]/pharmacy #[id number], 30, 1 tablet By [...] 1 Refills, Maintenance, 12/14/22 6:14:00 EDT, [facility]/pharmacy #[id number], 30, APPLY TOPICALLY 4 [...] each, 0 Refills, Maintenance, 09/20/22 9:36:00 EDT, [facility], 30, INHALE 1 PUFF BY MOUTH TWICE A DAY, 157.5, cm, 09/05/22 16:22:00 EDT, Height Start Date: 09/20/22 Status: Ordered fluticasone 50 mcg/inh nasal spray See Instructions, SPRAY 1 SPRAY INTO EACH NOSTRIL EVERY DAY, # 16 mL, 5 Refills, Maintenance, 07/05/22 16:20:00 EDT, [facility], 30, SPRAY 1 SPRAY INTO EACH NOSTRIL [...] FREESTYLE LANCETS MIS Miscellaneous FREESTYLE LANCETS [facility] [place], See Instructions, # 100 Unknown, 5 [...] 4 Refills, Maintenance, 03/11/23 15:50:00 EST, [facility] ST[facility] 31989, 157.5, cm, 02/19/23 9:20:00 EST, Height Start [...] mL, 6 Refills, Maintenance, 11/26/22 14:55:00 EDT, [facility], Partial fill upon patie... Start Date: 11/26/22 Status: Ordered lactase 3000 u oral tablet 3 tablet, By Mouth, 3 times a day with meals, X30 DAYS., # 120 tablet, 5 Refills, Maintenance, 04/25/23 15:25:00 EST, [facility] ST[facility] 65853, 157, cm, 04/17/23 7:57:00 EST, Height, 88.3, kg, 04/16/23 11:33:00 EST, Dry Weight Start Date: 04/25/23 Status: Ordered Lantus Solostar Pen 100 units/mL subcutaneous solution See Instructions, Take 45 units in the AM and 45 units daily at bedtime. E11.9., # 30 mL, 9 Refills, Maintenance, 11/26/22 14:55:00 EDT, [facility], Partial fill upon patient requestif the prescription is for a schedule II opioid lucas... Start Date: 11/26/22 Status: Ordered levothyroxine 0.137 mg oral tablet 1 tablet = 137 mcg, By Mouth, Daily, # 30 tablet, 2 Refills, Maintenance, 04/17/23 7:46:00 EST, Tablet, [facility]/pharmacy #[id number], Partial fill upon patient request if the prescription is for a schedule II opioid drug., 157, cm, 04/16/23 11:33:00 EST, Height... Start Date: 04/17/23 Status: Ordered lidocaine 5% topical ointment See Instructions, APPLY TO AFFECTED AREA 3 TIMES A DAY, # 35.44 Gm, 11 Refills, Maintenance, 02/28/22 8:51:00 EST, [facility]/pharmacy #[id number], 30, APPLY TO AFFECTED AREA 3 TIMES A DAY, 157.5, cm, 02/21/22 14:36:00 EST, Height Start Date: 02/28/22 Status: Ordered lidocaine 5% topical ointment See Instructions, APPLY TO AFFECTED AREA 3 TIMES A DAY, # 35.44 Gm, 11 Refills, Maintenance, 07/03/22 18:22:00 EDT, [facility]/pharmacy #[id number], 30, Duplicate Rx. Original sent 07/03/22 with routing error. Re-sending to pharmacy, APPLY TO AFFECTED AREA 3 TIMES A... Start Date: 07/03/22 Status: Ordered losartan 50 mg oral tablet See Instructions, TAKE 1 TABLET BY MOUTH EVERY DAY, # 90 tablet, 1 Refills, Maintenance, 03/11/23 15:50:00 EST, [facility] ST[facility] 13488, 157.5, cm, 02/19/23 9:20:00 EST, Height Start Date: 03/11/23 Status: Ordered Lyrica 25 mg oral capsule See Instructions, 1 capsule By Mouth 1 time daily at bedtime. E11.9, # 30 each, 5 Refills, Maintenance, 01/21/23 15:40:00 EDT, Capsule, [facility]/pharmacy #[id number], Partial fill upon patient request if the prescription is for a schedule II opioid drug., 157.5,... Start Date: 01/21/23 Status: Ordered mirtazapine 15 mg oral tablet 1 tablet = 15 mg, By Mouth, Daily at bedtime, # 30 tablet, 4 Refills, Maintenance, 12/06/22 13:07:00 EDT, Tablet, [facility]/pharmacy #[id number], Partial fill upon patient request if the prescription is for a schedule II opioid drug., 157.5, cm, 11/26/22 14:11:00... Start Date: 12/06/22 Stop Date: 05/05/23 Status: Ordered Narcan 4 mg/0.1 mL nasal spray = 4 mg, Nares, Both, Once, # 2 each, 2 Refills, Soft Stop, 02/22/23 14:30:00 EST, [facility]/pharmacy #[id number], Partial fill upon patient request if the prescription is for a schedule II opioid drug., 157.5, cm, 02/19/23 9:20:00 EST, Height Start Date: 02/22/23 Status: Ordered Olga-3 Fish Oil 1000 mg oral capsule 1 capsule = 1,000 mg, By Mouth, Daily, # 90 capsule, 1 Refills, Maintenance, 08/01/22 10:17:00 EDT,[facility]/pharmacy #[id number], Partial fill upon patient [...] Maintenance, 06/14/22 16:40:00 EDT, EC Tablet, [facility]/pharmacy #[id number], Partial fill upon patient request if the prescription is for a schedule II opioid drug., 157.5,... Start Date: 06/14/22 Status: Ordered oxyCODONE 10 mg oral tablet TAKE 1/2 TAB EVERY 12 HOURS NEEDED FOR SEVERE NECK/LOW BACK PAIN. DO NOT FILL UNTIL 05/01/21 Start Date: 06/02/21 Status: Ordered Pen [place], 31 G x 8 mm BD Ultra [...] 13:08:00 EDT, Route to Pharmacy Electronically, [facility]/pharmacy #[id number], Partial fill upon patient request if the prescription is for a schedule II opi... Start Date: 12/06/22 Stop Date: 05/05/23 Status: Ordered unit technician grabber tool unit technician grabber tool, See Instructions, # 1 each, Refills 0, Tot. Refills 0, Maintenance, please dispense one unit technician grabber tool, ICD 10 M54.6, length of [...] tablet, 10 Refills, Maintenance, 01/17/23 8:54:00 EDT, [facility], 157.5, cm, 12/28/22 15:12:00 EDT, Height Start Date: 01/17/23 Status: Ordered Trulicity Pen 4.5 mg/0.5 mL subcutaneous solution See Instructions, INJECT 4.5 MG SUBCUTANEOUSLY ONCE A WEEK, # 2 mL, 5 Refills, Maintenance, 11/21/22 8:33:00 EDT, [facility], 157.5, cm, 11/16/22 13:50:00 EDT, Height Start Date: 11/21/22 Status: Ordered valACYclovir 500 mg oral tablet 1, tablet, By Mouth, 2 times a day, PRN, # 6 tablet, Refills 0, Maintenance, NEEDED FOR OUTBREAKS, 05/22/23 12:07:00 EST, Route to Pharmacy Electronically, [facility] ST[facility]206, 157, cm, 05/06/23 14:23:00 EST, Height, 88.3, kg, 04/16/23 11:33:00 EST, . 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 No wall motion abnormalities, Does [...] Primary Care Member Role: PCP Address: Address: [address] [place] [address]- Name: Lizbeth Collins [place] Position: [facility] RN Member Role: Primary Care Nurse Care Team Related Persons Name: LB HENLEY Address: home [address] [address] Name: LB HENLEY Address: home [address] [place] [address] Name: MILENA CUBA Address: home [address] [place] [address]
--- OUTSIDE RECORDS SUMMARY | 2024-01-23 14:31 | XMS_ITS | Continuity of Care Document ---
Author Organization [facility] Address [address] [place] [address]- Care Team Providers Care Kiln Puller Name Role Phone Rose Mary FISCHER, Sergo Cole Primary Care Physician Encounter [facility] Date(s): 09/11/22 - 10/11/22 [facility] [address] [place], [place] [address] Allergies, Adverse Reactions, Alerts Substance [...] Given 1Result Comment: [01/22/2017] [facility] [id number] 2Admin Note: vis given dated 10/24/12 3Admin Note: vis given dated 10/01/11 4Admin Note: vis 5Admin Note: vis 6Admin Note: vis given: 10/27/2006 7Admin Note: vis given : 10/10/2005 8Admin Note: vis given 2007- Medications acetaminophen 500 mg oral tablet 2 tablet, By Mouth, 4 times a day, PRN NEEDED FOR PAIN, # 100 tablet, 1 Refills, Acute, 219:52:00 EDT, [facility], 157.48, cm, 10/11/20 9:39:00 EDT, Height Start Date: 10/26/20 Status: Ordered Alcohol Pads See Instructions, # 200 each, Refills 11, Tot. Refills 11, Maintenance, To cleans before injections5 x a day., 03/03/21 9:18:00 EST, E11.65, Compound, 157.48, cm, 03/01/21 15:54:00 EST, Height Start Date: 03/03/21 Stop Date: 02/26/22 Status: Ordered Avkza-Nvolrq-Axku 300 mg oral capsule 1 capsule, By Mouth, 2 times a day, NOT COVERED., # 60 capsule, 11 Refills, [facility], 157.48, cm, 01/27/21 9:30:00 EDT, Height Start Date: 01/30/21 Status: Ordered ammonium lactate 12% topical cream 1 application, Topically, 2 times a day, # 385 Gm, 3 Refills, Maintenance, 08/24/22 14:16:00 EDT, Cream, [facility]/pharmacy #[id number], Partial fill upon patient request if the prescription is for a schedule IIopioid drug., 1 application Topically 2 times a day... Start Date: 08/24/22 Stop Date: 12/22/22 Status: Ordered atorvastatin 80 mg oral tablet 1 tablet = 80 mg, By Mouth, Daily, replaces Simvastatin, # 90 tablet, 4 Refills, Maintenance, 08/26/22 14:22:00 EDT, Tablet, [facility]/pharmacy #[id number], replaces simvastatin, 157.5, cm, 11/29/21 15:59:00 EDT, Height Start Date: 08/26/22 Stop Date: 11/19/23 Status: Ordered BD Single Use Swab 70% topical pad See Instructions, TO CLEANS BEFORE INJECTIONS 5 X A DAY., # 150 Unknown, 11 Refills, Maintenance, 08/16/22 10:15:00 EDT, [facility], 30, TO CLEANS BEFORE INJECTIONS 5 X A DAY., 157.5, cm, 08/01/22 9:27:00 EDT, Height Start Date: 08/16/22 Status: Ordered capsaicin 0.075% topical cream See Instructions, APPLY TO AFFECTED AREA TWICE A DAY, # 57 Gm, 4 Refills, Maintenance, 08/24/22 14:16:00 EDT, [facility]/pharmacy #[id number], 30, APPLY TO AFFECTED [...] tablet, 11 Refills, Maintenance, 07/09/22 10:30:00 EDT, [facility]/pharmacy #[id number], 30, 1 tablet By [...] Gm, 6 Refills, Maintenance, 08/24/22 14:16:00 EDT, [facility]/pharmacy #[id number], 30, APPLY TOPICALLY 4 TIMES A DAY NOT TO EXCEED 16 GRAMS/DAY/SIN... Start Date: 08/24/22 Status: Ordered docusate sodium 100 mg oral capsule See Instructions, TAKE 1 CAPSULE BY MOUTH TWICE A DAY NEEDED FOR CONSTIPATION, # 60 capsule, 5 Refills, Maintenance, 07/03/22 18:20:00 EDT, [facility]/pharmacy #[id number], Duplicate Rx. Original sent 07/03/22 with routing error. Re- sending to pharmacy, 157.5, cm... Start Date: 07/03/22 Status: Ordered docusate sodium 100 mg oral capsule 100 mg, 1, capsule, By Mouth, 2 times a day, PRN, # 60 capsule, Refills 5, Tot. Refills 5, Maintenance, as needed for constipation, 06/12/22 9:52:00 EDT, Route to Pharmacy Electronically, [facility]/pharmacy #[id number], Partial fill [...] Refills, Maintenance, 09/20/22 9:36:00 EDT, [facility], 30, INHALE 1 PUFF BY MOUTH TWICE A DAY, 157.5, cm, 09/05/22 16:22:00 EDT, Height Start Date: 09/20/22 Status: Ordered fluticasone 50 mcg/inh nasal spray See Instructions, SPRAY 1 SPRAY INTO EACH NOSTRIL EVERY DAY, # 16 mL, 5 Refills, Maintenance, 07/05/22 16:20:00 EDT, [facility], 30, SPRAY 1 SPRAY INTO EACH NOSTRIL [...] mL, 6 Refills, Maintenance, 06/12/22 10:00:00 EDT, [facility], Partial fill upon patie... Start Date: 06/12/22 Status: Ordered Lactaid 3000 units oral tablet 3 tablet = 9,000 units, By Mouth, 3 times a day with meals, # 120 tablet, 5 Refills, Maintenance, 08/17/22 9:03:00 EDT, Tablet, [facility]/pharmacy #[id number], Partial fill upon patient request if the prescription is for a schedule II opioid drug., 157.5, cm, ... Start Date: 08/17/22 Stop Date: 02/13/23 Status: Ordered Lantus Solostar Pen 100 units/mL subcutaneous solution See Instructions, Take 45 units in the AM and 45 units daily at bedtime. E11.9., # 30 mL, 9 Refills, Maintenance, 06/19/22 16:50:00 EDT, [facility], Partial fill upon patient requestif the prescription is for a schedule II opioid lucas... Start Date: 06/19/22 Status: Ordered lidocaine 5% topical ointment See Instructions, APPLY TO AFFECTED AREA 3 TIMES A DAY, # 35.44 Gm, 11 Refills, Maintenance, 02/28/22 8:51:00 EST, [facility]/pharmacy #[id number], 30, APPLY TO AFFECTED AREA 3 TIMES A DAY, 157.5, cm, 02/21/22 14:36:00 EST, Height Start Date: 02/28/22 Status: Ordered lidocaine 5% topical ointment See Instructions, APPLY TO AFFECTED AREA 3 TIMES A DAY, # 35.44 Gm, 11 Refills, Maintenance, 07/03/22 18:22:00 EDT, [facility]/pharmacy #[id number], 30, Duplicate Rx. Original [...] Date: 05/02/22 Stop Date: 09/29/22 Status: Ordered Caspar-3 Fish Oil 1000 mg oral capsule 1 [...] Refills, Maintenance, 06/14/22 16:40:00 EDT, EC Tablet, [facility]/pharmacy #[id number], Partial fill upon patient request if the prescription is for a schedule II opioid drug., 157.5,... Start Date: 06/14/22 Status: Ordered oxyCODONE 10 mg oral tablet TAKE 1/2 TAB EVERY 12 HOURS NEEDED FOR SEVERE NECK/LOW BACK PAIN. DO NOT FILL UNTIL 05/01/21 Start Date: 06/02/21 Status: Ordered Pen Norton, 31 G x 8 mm BD Ultra [...] 08/30/22 13:31:00 EDT, Route to Pharmacy Electronically, [facility]/pharmacy #[id number], Partial fill upon patient request if the prescription is for a schedule II opi... Start Date: 08/30/22 Stop Date: 01/27/23 Status: Ordered sheet metal pattern cutter grabber tool sheet metal pattern cutter grabber tool, See Instructions, # 1 each, Refills 0, Tot. Refills 0, Maintenance, please dispense one sheet metal pattern cutter grabber tool, ICD 10 M54.6, length of [...] 14:16:00 EDT, 08/24/22 14:16:00 EDT, [id number] fill upon patient request if the prescription is for a schedule II... Start Date: 08/24/22 Stop Date: 12/07/22 Status: Ordered SUMAtriptan 25 mg oral tablet 1 tablet, By Mouth, Daily, PRN NEEDED FOR MIGRAINES, for 30 days, MAY RPT DOSE AFTER 2 HRS TO MAX OF 2, # 12 tablet, 7 Refills, Physician Stop 12/15/22 14:36:00 EDT, 04/19/22 14:36:00 EST, [facility]/pharmacy #[id number], 157.5, cm, 04/11/22 10:50:00 EST, Height Start Date: 04/19/22 Stop Date: 12/15/22 Status: Ordered Topamax 25 mg oral tablet 3 tablet = 75 mg, By Mouth, Daily at bedtime, # 90 tablet, 6 Refills, Maintenance, 06/26/22 10:14:00 EDT, Tablet, [facility], 157.5, cm, 06/21/22 8:43:00 EDT, Height Start Date: 06/26/22 Stop Date: 01/22/23 Status: Ordered Trulicity Pen 3 mg/0.5 mL subcutaneous solution See Instructions, INJECT 0.5ML SUBCUTANEOUSLY EVERY WEEK, ROTATE INJECTION SITES, # 2 mL, 5 Refills, 01/23/22 16:33:00 EDT, [facility], 157.5, cm, 01/20/22 13:38:00 EDT, Height Start Date: 01/23/22 Status: Ordered Trulicity Pen 4.5 mg/0.5 mL subcutaneous solution See Instructions, 4.5 mg Subcutaneous Infusion weekly. E11.9, # 4 each, 5 Refills, Maintenance, 06/19/22 17:00:00 EDT, [facility], Partial fill upon patient request if the prescription is for a schedule II opioid drug., 157.5, cm, ... 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 No wall motion abnormalities, Does [...] Name: Rose Mary FISCHER, Sergo Cole Position: [facility] Physician - Primary Care Member Role: PCP Address: Address: [address] [place] [address] [place] [address]- Name: Lizbeth Collins [place] Position: [facility] RN Member Role: Primary Care Nurse Care Team Related Persons Name: LB HENLEY Address: home [address] [place] [address] Name: LB HENLEY Address: home [address] [address] Name: MILENA CUBA Address: home [address] [place] [address]
--- OUTSIDE RECORDS SUMMARY | 2024-01-23 14:31 | XMS_ITS | Continuity of Care Document ---
Author Organization [facility] y Address [address] [place] [address]- Care Team Providers Care [facility] Name Role Phone Rose Mary FISCHER, Sergo Cole Primary Care Physician [place] [facility] Date(s): 06/30/21 - 10/01/21 [facility] [address], [place] [address] Attending Physician: Not on Staff, [...] (oldterm) 8 01/21/08 Given 1Result Comment: [01/22/2017] [facility] [id number] 2Admin Note: vis given dated 10/24/12 3Admin Note: vis given dated 10/01/11 4Admin Note: vis 5Admin Note: vis 6Admin Note: vis given: 10/27/2006 7Admin Note: vis given : 10/10/2005 8Admin Note: vis given 2007- Medications acetaminophen 500 mg oral tablet 2 tablet, By Mouth, 4 times a day, PRN NEEDED FOR PAIN, # 100 tablet, 1 Refills, Acute, :52:00 EDT, [facility], 157.48, cm, 10/11/20 9:39:00 EDT, Height Start Date: 10/26/20 Status: Ordered Alcohol Pads See Instructions, # 200 each, Refills 11, Tot. Refills 11, Maintenance, To cleans before injections5 x a day., 03/03/21 9:18:00 EST, E11.65, Compound, 157.48, cm, 03/01/21 15:54:00 EST, Height Start Date: 03/03/21 Stop Date: 02/26/22 Status: Ordered Zzowk-Biuwxi-Axue 300 mg oral capsule 1 capsule, By Mouth, 2 times a day, NOT COVERED., # 60 capsule, 11 Refills, [facility], 157.48, cm, 01/27/21 9:30:00 EDT, Height Start Date: 01/30/21 Status: Ordered ammonium lactate 12% topical cream 1 application, Topically, 2 times a day, # 385 Gm, 5 Refills, Maintenance, 09/08/21 9:35:00 EDT, Cream, [facility]/pharmacy #[id number], Partial fill upon patient request if the prescription is for a schedule II opioid drug., 1 application Topically 2 times a day,... Start Date: 09/08/21 Stop Date: 03/07/22 Status: Ordered aspirin 81 mg oral delayed release tablet 1 tablet, By Mouth, Daily, # 30 tablet, 11 Refills, Maintenance, 06/21/20 17:44:00 EDT, [facility], 157.48, cm, 05/31/20 9:41:00 EST, Height Start [...] Refills, Maintenance, 08/19/20 16:26:00 EDT, [facility], 30, TAKE 1 TABLET BY MOUTH DAILY. [...] 6 Refills, Maintenance, 09/01/21 13:11:00 EDT, Gel, [facility]/pharmacy #[id number], 157.48, cm, 08/24/21 8:03:00 EDT, [...] mL, 5 Refills, [facility] 88977, 30, USE 1 SPRAY IN EACH NOSTRIL [...] 3, Maintenance, use up to check blood [id number] per day. 90 DAY SUPPLY, E11.9, 03/03/21 [...] mL, 6 Refills, Maintenance, 09/18/21 16:43:00 EDT, [facility], Partial fill upon patient request if... Start Date: 09/18/21 Status: Ordered Lantus Solostar Pen 100 units/mL subcutaneous solution See Instructions, Take 80 units via Subcutaneous Infusion Daily at bedtime. E11.9., # 30 mL, 9 Refills, Maintenance, 08/24/21 9:25:00 EDT, [facility], Partial fill upon patient request if the prescription is for a schedule II opioid d... Start Date: 08/24/21 Status: Ordered Lantus Solostar Pen 100 units/mL subcutaneous solution See Instructions, Decreased to 60U once a day as of 12/29/19, # 30 mL, 9 Refills, Maintenance, 09/20/20 15:10:00 EDT, [facility], NEEDS [...] 0 Refills, Maintenance, 09/08/21 9:35:00 EDT, Film, [facility]/pharmacy #[id number], Partial fill upon patient request if the prescription is for a schedule II opioid drug., 1patch Topically Daily, 157.48, cm, 08/24/21 8:03:00... Start Date: 09/08/21 Status: Ordered losartan 50 mg oral tablet 1 tablet, By Mouth, Daily, # 30 tablet, 2 Refills, [facility] 06905, 157.48, cm, 05/05/21 9:51:00 EST, Height Start [...] 05/01/21 Start Date: 06/02/21 Status: Ordered Pen Hoffman, 31 G x 8 mm BD Ultra [...] # 12 tablet, 7 Refills, [facility], 157.48, cm, 05/23/21 13:08:00 EST, Height Start Date: 06/02/21 Status: Ordered tiZANidine 4 mg oral capsule 1 capsule, By Mouth, 3 times a day, # 90 capsule, 3 Refills, [facility], 157.48, cm, 05/23/21 13:08:00 EST, Height Start Date: 06/01/21 Status: Ordered Topamax 25 mg oral tablet 2 tablet = 50 mg, By Mouth, Daily at bedtime, # 60 tablet, 6 Refills, Maintenance, 08/29/21 14:04:00 EDT, Tablet, [facility]/pharmacy #[id number], 157.48, cm, 08/24/21 8:03:00 EDT, Height Start Date: 08/29/21 Stop Date: 03/27/22 Status: Ordered Trulicity Pen 3 mg/0.5 mL subcutaneous solution See Instructions, INJECT 0.5ML SUBCUTANEOUSLY EVERY WEEK, ROTATE INJECTION SITES, # 2 mL, 5 Refills, 08/24/21 9:20:00 EDT, [facility], 157.48, cm, 08/24/21 [...] Active *Briana Garces, Rosemarie Coor dinator, ICP [phone](Confirmed) Active Reflux(Confirmed) Active Hepatic steatosis(Confirmed) Active -EF [...]
--- OUTSIDE RECORDS SUMMARY | 2024-01-23 14:31 | XMS_ITS | Continuity of Care Document ---
Author Organization [facility] Address [address] [facility], [address] d Floor, [address] [place] [id number]- Care Team Providers Care Director Of Sales And Marketing Name Role Phone Sergo Bazzi MD Primary Care Physician [phone] Encounter [facility] Date(s): 11/16/21 - 12/16/21 [facility] [address], [address], [address] [place] [address]- Attending Physician: Broderick Washburn Admitting Physician: Admtr, Broderick Referring Physician: Admtr, [...] 1Result Comment: [01/22/2017] [facility] [id number] 2Admin Note: vis given dated 10/24/12 3Admin Note: vis given dated 10/01/11 4Admin Note: vis 5Admin Note: vis 6Admin Note: vis given: 10/27/2006 7Admin Note: vis given : 10/10/2005 8Admin Note: vis given 2007- Medications acetaminophen 500 mg oral tablet 2 tablet, By Mouth, 4 times a day, PRN NEEDED FOR PAIN, # 100 tablet, 1 Refills, Acute, 219:52:00 EDT, [facility], 157.48, cm, 10/11/20 9:39:00 EDT, Height Start Date: 10/26/20 Status: Ordered Alcohol Pads See Instructions, # 200 each, Refills 11, Tot. Refills 11, Maintenance, To cleans before injections5 x a day., 03/03/21 9:18:00 EST, E11.65, Compound, 157.48, cm, 03/01/21 15:54:00 EST, Height Start Date: 03/03/21 Stop Date: 02/26/22 Status: Ordered Lphdq-Swnalv-Ehow 300 mg oral capsule 1 capsule, By Mouth, 2 times a day, NOT COVERED., # 60 capsule, 11 Refills, [facility]78[facility], 157.48, cm, 01/27/21 9:30:00 EDT, Height Start Date: 01/30/21 Status: Ordered ammonium lactate 12% topical cream 1 application, Topically, 2 times a day, # 385 Gm, 5 Refills, Maintenance, 09/08/21 9:35:00 EDT, Cream, [facility]/pharmacy #[id number], Partial fill upon patient request if the [...] tablet, 11 Refills, Maintenance, 08/19/20 16:26:00 EDT, [facility] 80327, 30, TAKE 1 TABLET BY MOUTH DAILY. [...] 11/10/21 9:17:00 EDT, [facility], [facility] EVERY DAY, # 16 mL, 5 Refills, [facility]846, 30, USE 1 SPRAY IN EACH NOSTRIL EVERY DAY, 157.48, cm, 11/11/20 9:37:00 EDT, Height Start Date: 12/26/20 Status: Ordered Lantus Solostar Pen 100 units/mL subcutaneous solution See Instructions, Take 80 units via Subcutaneous Infusion Daily at bedtime. E11.9., # 30 mL, 9 Refills, Maintenance, 08/24/21 9:25:00 EDT, [facility], Partial fill upon patient request if the prescription is for a schedule II opioid d... Start Date: 08/24/21 Status: Ordered Lantus Solostar Pen 100 units/mL subcutaneous solution See Instructions, Decreased to 60U once a day as of 12/29/19, # 30 mL, 9 Refills, Maintenance, 09/20/20 15:10:00 EDT, [facility], NEEDS 30 ML FOR 30 DAY SUPPLY E11.9, 157.48, cm, 05/31/20 9:41:00 EST, Height Start Date: 09/20/20 Status: Ordered lidocaine 5% topical ointment See Instructions, APPLY TO AFFECTED AREA 3 TIMES A DAY, # 35.44 Gm, 11 Refills, [facility] 54721, 30, APPLY TO AFFECTED AREA 3 TIMES [...] 5 Refills, Maintenance, 09/18/21 12:21:00 EDT, Capsule, [facility]/pharmacy [...] 20 mg oral enteric coated capsule 1 capsule = 20 mg, By Mouth, Daily, for 14 days, # 14 capsule, 0 Refills, Acute 12/24/21 21:41:00 EDT, 12/10/21 21:41:00 EDT, EC Capsule, [facility]/pharmacy #[id number], Partial fill upon patient request if the prescription is for a schedule II opioid drug., 157.... Start Date: 12/10/21 Stop Date: 12/24/21 Status: Ordered oxyCODONE 10 mg oral tablet TAKE 1/2 TAB EVERY 12 HOURS NEEDED FOR SEVERE NECK/LOW BACK PAIN. DO NOT FILL UNTIL 05/01/21 Start Date: 06/02/21 Status: Ordered SUMAtriptan 25 mg oral tablet 1 tablet, By Mouth, 3 times a day, PRN NEEDED FOR MIGRAINES, MAY RPT DOSE AFTER 2 HRS TO MAX OF 2, # 12 tablet, 7 Refills, Physician Stop 05/29/22 20:00:00 EST, 11/16/21 8:13:00 EDT, [facility]/pharmacy #[id number], 157.5, cm, 11/07/21 10:51:00 EDT, Height Start Date: 11/16/21 Stop Date: 05/29/22 Status: Ordered Topamax 25 mg oral tablet 3 tablet = 75 mg, By Mouth, Daily at bedtime, # 90 tablet, 6 Refills, Maintenance, 11/16/21 8:12:00EDT, Tablet, [facility]/pharmacy #[id number], 157.5, cm, 11/07/21 10:51:00 EDT, Height Start Date: 11/16/21 Stop Date: 06/14/22 Status: Ordered Trulicity Pen 3 mg/0.5 mL subcutaneous solution See Instructions, INJECT 0.5ML SUBCUTANEOUSLY EVERY WEEK, ROTATE INJECTION SITES, # 2 mL, 5 Refills, 08/24/21 9:20:00 EDT, [facility], 157.48, cm, 08/24/21 8:03:00 EDT, Height Start Date: 08/24/21 Status: Ordered Vascepa 1 g oral capsule 2 capsule = 2 Gm, By Mouth, 2 times a day, # 360 capsule, 5 Refills, Maintenance, 05/03/20 15:59:00EST, Capsule, [facility]/pharmacy #[id number], 157.48, cm, 03/04/20 14:14:00 [...] abnormal(Confirmed) 1 Active Epigastric pain(Confirmed) 2 Active Fall(Confirmed) Active Hyperlipidemia(Confirmed) Active Hypertension(Confirmed) Active Stool incontinence(Confirmed) [...] Active *Briana Garces, Care Coor dinator, ICP [phone](Confirmed) Active Reflux(Confirmed) Active Hepatic steatosis(Confirmed) Active 10944 -EF 60-65%. No wall motion abnormalities, Does [...] Never smoker entered on: 11/10/13 Sex Female Care Team Personnel Name: Rose Mary FISCHER, Sergo Cole Address: [address] [place] [address] [place] [address]-
--- OUTSIDE RECORDS SUMMARY | 2024-01-23 14:32 | XMS_ITS | Continuity of Care Document ---
Author Organization [facility] Address [address] [place] [address]- Care Team Providers Care Cna Gna Name Role Phone Rose Mary FISCHER, Sergo Cole Primary Care Physician [phone] Encounter [facility] Date(s): 10/12/23 - 11/11/23 [facility] [address] [place], [place] [phone] Attending Physician: AdmBroderick enriquez Admitting Physician: AdmtrBroderick Referring Physician: Admtr, ArItzel Allergies, Adverse Reactions, Alerts Substance Reaction Severity Status morphine ITCH DIARRHEA Active cortisone Active Neurontin mental status changes Active Ultram nausea, vomit Active trazodone DEPRESSION Active Motrin eat lining of stomach Active Naprosyn gi upset Active CeleBREX gi upset Active Vioxx heart problems Active Latex powder [...] Comment: [01/22/2017] [facility] [id number] 2Admin Note: vis given dated 10/24/12 3Admin [...] 100 tablet, 1 Refills, Acute, 219:52:00 EDT, [email or web address], 157.48, cm, 10/11/20 9:39:00 EDT, Height Start [...] Date: 10/30/23 Stop Date: 10/24/24 Status: Ordered Uorpa-Mhtnwt-Pqbz 300 mg oral capsule 1 capsule, By Mouth, 2 times a day, NOT COVERED., # 60 capsule, 11 Refills, [email or web address]898, 157.48, cm, 01/27/21 9:30:00 EDT, Height Start Date: 01/30/21 Status: Ordered ammonium lactate 12% topical cream 1 application, Topically, 2 times a day, # 385 Gm, 1 Refills, Maintenance, 12/22/22 14:16:00 EDT, Cream, [facility]pharmacy #[id number], Partial fill upon patient request if the prescription is for a schedule IIopioid drug., 1 application Topically 2 times a day... Start Date: 12/22/22 Stop Date: 02/20/23 Status: Ordered Artificial Tears preserved solution 1 drops, Eyes, Both, 2 times a day, PRN for dry eyes, # 15 mL, 0 Refills, Maintenance, 09/10/23 8:57:00 EDT, Solution, [facility]pharmacy #[id number], Partial fill upon patient request if the prescription is fora schedule II opioid drug., 1 drops Eyes, Both 2 ti... Start Date: 09/10/23 Status: Ordered atorvastatin 80 mg oral tablet See Instructions, TAKE 1 TABLET BY MOUTH DAILY. INSTR:REPLACES SIMVASTATIN, # 90 tablet, 1 Refills,Maintenance, 11/06/23 7:48:00 EDT, [email or web address], 157, cm, 10/18/23 11:52:00 EDT, Height, 84, kg,07/24/23 12:52:00 EDT, Dry Weight Start Date: 11/06/23 Status: Ordered atorvastatin 80 mg oral tablet 1 tablet, By Mouth, Daily, INSTR:REPLACES SIMVASTATIN, # 90 tablet, 1 Refills, Maintenance, 05/22/23 12:07:00 EST, [email or web address], 157, cm, 05/06/23 14:23:00 EST, Height, 88.3, [...] 09/10/23 10:46:00 EDT, Route to Pharmacy Electronically, [facility]/pharmacy #[id number], Partial fill upon patient request if the prescription is for a schedule II opio... Start Date: 09/10/23 Stop Date: 02/07/24 Status: Ordered capsaicin 0.075% topical cream See Instructions, APPLY TO AFFECTED AREA TWICE A DAY, # 57 Gm, 3 Refills, Maintenance, 11/06/23 7:51:00 EDT, [facility]/pharmacy #[id number], 30, APPLY TO AFFECTED AREA TWICE [...] tablet, 5 Refills, Maintenance, 11/06/23 17:25:00 EDT, [facility]/pharmacy #[id number], 1 tablet By Mouth Daily,Instr:SEPARATE FROM [...] 09/10/23 10:46:00 EDT, [id number]... Start Date: 09/10/23 Stop Date: 02/07/24 Status: Ordered diclofenac 1% topical gel See Instructions, APPLY TOPICALLY 4 TIMES A DAY NOT TO EXCEED 16 GRAMS/DAY/SINGLE JOINT OF LOWER EXTREMITIES, # 100 Gm, 4 Refills, Maintenance, 09/10/23 8:56:00 EDT, [facility]/pharmacy #[id number], 30, APPLY TOPICALLY 4 TIMES A [...] 5 Refills, Maintenance, 07/03/22 18:20:00 EDT, [facility]/pharmacy #[id number], Duplicate Rx. Original sent 07/03/22 with routing error. Re- sending to pharmacy, 157.5, cm... Start Date: 07/03/22 Status: Ordered esomeprazole 40 mg oral enteric coated capsule 1 capsule = 40 mg, By Mouth, Daily, # 90 capsule, 3 Refills, Maintenance, 09/25/23 16:33:00 EDT, [id number] Partial fill upon patient request if the prescription is for a schedule II opioid drug., 157, cm, 09/25/23 16:26:00 EDT, Height, 84, k... Start Date: 09/25/23 Status: Ordered esomeprazole 40 mg oral enteric coated capsule 1 capsule = 40 mg, By Mouth, Daily, # 90 capsule, 1 Refills, Maintenance, 09/02/23 16:20:00 EDT, [facility]/pharmacy #[id number], Partial fill upon patient request if [...] each, 0 Refills, Maintenance, 11/06/23 17:54:00 EDT, [facility]/pharmacy #[id number], 30, 1 puffs Inhalation 2 times a day, 157, cm, 10/18/23 11:52:00 EDT, Height, 84, kg,07/24/23 12:52:00 EDT, Dry Weight Start Date: 11/06/23 Status: Ordered fluticasone 50 mcg/inh nasal spray See Instructions, SPRAY 1 SPRAY INTO EACH NOSTRIL EVERY DAY, # 16 mL, 5 Refills, Maintenance, 11/06/23 17:54:00 EDT, [facility]/pharmacy #[id number], 30, SPRAY 1 SPRAY INTO EACH [...] Ordered FREESTYLE LANCETS MISC Miscellaneous FREESTYLE LANCETS [facility] Miscellaneous, See Instructions, # [...] tablet, 4 Refills, Maintenance, 11/06/23 17:54:00 EDT, [facility]/pharmacy #[id number], 157, cm, 10/18/23 11:52:00 EDT, Height, [...] mL, 6 Refills, Maintenance, 07/24/23 13:20:00 EDT, [facility], Partial fill upon patient request if the prescription is for a schedule II opioid drug., 157, cm, 07/24/23 12:52:00... Start Date: 07/24/23 Status: Ordered hydrOXYzine hydrochloride 25 mg oral tablet 1 tablet = 25 mg, By Mouth, 2 times a day, as needed for anxiety, # 60 tablet, 4 Refills, Soft Stop, 09/10/23 10:47:00 EDT, Tablet, [facility]/pharmacy #[id number], Partial fill upon patient request if the prescription is for a schedule II opioid drug., 157, cm, 0... Start Date: 09/10/23 Stop Date: 02/07/24 Status: Ordered lactase 3000 u oral tablet 3 tablet, By Mouth, 3 times a day with meals, X30 DAYS., # 120 tablet, 3 Refills, Maintenance, 11/06/23 7:51:00 EDT, [id number], 157, cm, 10/18/23 11:52:00 EDT, Height, 84, kg, 07/24/23 12:52:00 EDT, Dry Weight Start Date: 11/06/23 Status: Ordered Lantus Solostar Pen 100 units/mL subcutaneous solution See Instructions, Take 45 units in the AM and 45 units daily at bedtime. E11.9., # 30 mL, 9 Refills, Maintenance, 07/24/23 13:18:00 EDT, [facility], Partial fill upon patient requestif the prescription is for a schedule II opioid lucas... Start Date: 07/24/23 Status: Ordered levothyroxine 0.1 mg oral tablet 1 tablet = 100 mcg, By Mouth, Daily, # 30 tablet, 11 Refills, Maintenance, 07/25/23 8:52:00 EDT, [facility]/pharmacy #[id number], stop the 112mcg dose, 157, cm, 07/24/23 12:52:00 EDT, Height, 84, kg, 07/24/23 12:52:00 EDT, Dry Weight Start Date: 07/25/23 Stop Date: 07/19/24 Status: Ordered lidocaine 5% topical ointment See Instructions, APPLY TO AFFECTED AREA 3 TIMES A DAY, # 35.44 Gm, 3 Refills, Maintenance, 11/06/23 7:51:00 EDT, [facility]/pharmacy #[id number], 30, Duplicate Rx. Original sent 07/03/22 with routing error. Re-sending to pharmacy, APPLY TO AFFECTED AREA 3 TIMES A D... Start Date: 11/06/23 Status: Ordered lidocaine 5% topical ointment See Instructions, APPLY TO AFFECTED AREA 3 TIMES A DAY, # 35.44 Gm, 11 Refills, Maintenance, 02/28/22 8:51:00 EST, [facility]/pharmacy #[id number], 30, APPLY TO AFFECTED AREA 3 TIMES A DAY, 157.5, cm, 02/21/22 14:36:00 EST, Height Start Date: 02/28/22 Status: Ordered losartan 50 mg oral tablet See Instructions, TAKE 1 TABLET BY MOUTH EVERY DAY, # 90 tablet, 1 Refills, Maintenance, 10/17/23 13:55:00 EDT, [facility]/pharmacy #[id number], 157, cm, 10/12/23 11:14:00 EDT, Height, 84, kg, 07/24/23 12:52:00 EDT, Dry Weight Start Date: 10/17/23 Status: Ordered Lyrica 25 mg oral capsule See Instructions, 1 capsule By Mouth 1 time daily at bedtime. E11.9, # 30 each, 2 Refills, Maintenance, 11/05/23 18:01:00 EDT, Capsule, [facility]/pharmacy #[id number], Partial fill upon patient request if the prescription is for a schedule II opioid drug., 157, c... Start Date: 11/05/23 Status: Ordered mirtazapine 15 mg oral tablet 1 tablet = 15 mg, By Mouth, Daily at bedtime, # 30 tablet, 4 Refills, Maintenance, 09/10/23 10:47:00 EDT, Tablet, [facility]/pharmacy #[id number], Partial fill upon patient request if the prescription is for a schedule II opioid drug., 157, cm, 09/10/23 8:42:00 ED... Start Date: 09/10/23 Stop Date: 02/07/24 Status: Ordered Murine Ear Drops 6.5% solution See Instructions, INSTILL 5 DROPS INTO BOTH EARS TWICE DAILY FOR 7 DAYS, # 15 mL, 0 Refills, Maintenance, 09/30/23 10:01:00 EDT, [facility], 30, INSTILL 5 DROPS INTO BOTH EARS TWICE DAILY FOR 7 DAYS, 157, cm, 09/25/23 16:26:00 EDT, Height, 84, kg... Start Date: 09/30/23 Status: Ordered Narcan 4 mg/0.1 mL nasal spray = 4 mg, Nares, Both, Once, # 2 each, 2 Refills, Soft Stop, 02/22/23 14:30:00 EST, [facility]/pharmacy #[id number], Partial fill upon patient request if the prescription is for a schedule II opioid drug., 157.5, cm, 02/19/23 9:20:00 EST, Height Start Date: 02/22/23 Status: Ordered [place]-3 Fish Oil 1000 mg oral capsule 1 capsule = 1,000 mg, By Mouth, Daily, # 90 capsule, 1 Refills, Maintenance, 08/01/22 10:17:00 EDT,[facility]/pharmacy #[id number], Partial fill upon patient request if the prescription is for a schedule II opioid drug., 157.5, cm, 08/01/22 9:27:00 EDT, Height Start Date: 08/01/22 Status: Ordered omeprazole 20 mg oral delayed release tablet 1 tablet = 20 mg, By Mouth, 2 times a day, do not crush or chew, # 60 tablet, 2 Refills, Maintenance, 06/14/22 16:40:00 EDT, EC Tablet, [facility]/pharmacy #[id number], Partial fill upon patient request if the prescription is for a schedule II opioid drug., 157.5,... Start Date: 06/14/22 Status: Ordered ondansetron 4 mg oral tablet 1 tablet, By Mouth, Every 8 hours, PRN NEEDED FOR NAUSEA AND VOMITING FOR, # 30 tablet, 2 Refills, Maintenance, 07/03/23 14:40:00 EDT, [id number], 157, cm, 06/24/23 14:54:00 EDT, Height, 88.3, [...] mL, 11 Refills, Maintenance, 08/23/23 11:17:00 EDT, [facility], Partial fill upon patient request if... Start Date: 08/23/23 Status: Ordered Pen [place], 31 G x 8 mm BD Ultra [...] 09/10/23 10:47:00 EDT, Route to Pharmacy Electronically, [facility]/pharmacy #[id number], Partial fill upon patient request if the prescription is for a schedule II opi... Start Date: 09/10/23 Stop Date: 02/07/24 Status: Ordered renewals manager grabber tool renewals manager grabber tool, See Instructions, # 1 each, Refills 0, Tot. Refills 0, Maintenance, please dispense one renewals manager grabber tool, ICD 10 M54.6, length [...] tablet, 10 Refills, Maintenance, 10/08/23 15:43:00 EDT, [facility], 157, cm, 09/25/23 16:26:00 EDT, Height, 84, kg, 07/24/23 12:52:00 EDT, Dry Weight Start Date: 10/08/23 Status: Ordered valACYclovir 500 mg oral tablet See Instructions, TAKE 1 TABLET BY MOUTH 2 TIMES A DAY,X3 DAYS, NEEDED FOR OUTBREAKS, # 6 tablet, Refills 0, Maintenance, 11/06/23 7:49:00 EDT, Instructions Replace Required Details, Route to Pharmacy Electronically, [email or web address], 157, cm, 10/17... 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 No wall motion abnormalities, Does [...] 11/10/13 Sex Female Hospital Progress note * Bennett Kellogg MD: VERIFY, PERFORM, MODIFY, SIGN Event Display: Progress Note Hospital Authored Date: [id number] Patient: MICHAEL HENLEY Age: 51 years Sex: Female : 1960 Associated Diagnoses: None Author: Bennett Kellogg MD Attachments: None Visit Information Patient called today and said that her blood glucose level is 422.she had steroid inj in her knee two days ago.Since then her plasma glucose level has been elevated.She was seen in the ED yesterday and she returned back home today after her plasma glucose level brought down to 262mg%.At home about 15minutes ago,patient checked her plasma glucose and was 422mg% and patient get concerned and that is why she is calling.Patient took 10 units of humulog insulin.(usually prior to steroid injections few days ago,patient had been taking 8 units of humulog insulin with each meal and 80 units of lantusinsulin at bed time).Patient is adviced to go to the ED immediatly.Patient said that she doesn't have a car.I offered ambulance,but patient refused and said that she will call herself and will go to the ED after she check her plasma glucose level again.I discussed with the patient the importance ofgoing to the ED to be assesed and treated and she understands the risk of staying home and not seeing a health provider while having high plasma glucose level.Patient agrees and she said she will call the ambulance to go to the ED now. Radiology * Event Display: Ultrasound Renal, Non Authored Date: * Event Display: CT Scan Abdomen, Non- Authored Date: * Event Display: CT Scan Abdomen, Non- Authored Date: Patient Care team information Care Team Personnel Name: Rose Mary FISCHER, Sergo Cole Position: [facility] Physician - Primary Care Member Role: PCP Address: Address: [address] [place] [address]- Name: Lizbeth Collins [place] Position: [facility] Office Staff Member Role: Primary Care Nurse Care Team Related Persons Name: LB HENLEY Address: home [address] [address] Name: LB HENLEY Address: [address] [place] [address] Name: MILENA CUBA Address: home [address] [place] [address]
--- OUTSIDE RECORDS SUMMARY | 2024-01-23 14:32 | XMS_ITS | Continuity of Care Document ---
Author Organization [facility] Address [address] [place] [address]- Care Team Providers Care Range Rider Name Role Phone Rose Mary FISCHER, Sergo Cole Primary Care Physician Encounter [facility] Date(s): 07/16/22 - 08/15/22 [facility] [address], [place] [address]ies, Adverse Reactions, Alerts Substance Reaction Severity [...] (oldterm) 8 01/21/08 Given 1Result Comment: [01/22/2017] [facility] [id number] 2Admin Note: vis given dated 10/24/12 3Admin Note: vis given dated 10/01/11 4Admin Note: vis 5Admin Note: vis 6Admin Note: vis given: 10/27/2006 7Admin Note: vis given : 10/10/2005 8Admin Note: vis given 2007- Medications acetaminophen 500 mg oral tablet 2 tablet, By Mouth, 4 times a day, PRN NEEDED FOR PAIN, # 100 tablet, 1 Refills, Acute, 219:52:00 EDT, [facility], 157.48, cm, 10/11/20 9:39:00 EDT, Height Start Date: 10/26/20 Status: Ordered Alcohol Pads See Instructions, # 200 each, Refills 11, Tot. Refills 11, Maintenance, To cleans before injections5 x a day., 03/03/21 9:18:00 EST, E11.65, Compound, 157.48, cm, 03/01/21 15:54:00 EST, Height Start Date: 03/03/21 Stop Date: 02/26/22 Status: Ordered Xxomc-Mceaxy-Dwax 300 mg oral capsule 1 capsule, By Mouth, 2 times a day, NOT COVERED., # 60 capsule, 11 Refills, [facility], 157.48, cm, 01/27/21 9:30:00 EDT, Height Start Date: 01/30/21 Status: Ordered ammonium lactate 12% topical cream 1 application, Topically, 2 times a day, # 385 Gm, 3 Refills, Maintenance, 04/05/22 13:30:00 EST, Cream, [facility]/pharmacy #[id number], Partial fill upon patient request if [...] Refills, Maintenance, 03/05/22 13:29:00 EST, [facility], 30, APPLY TO AFFECTED AREA TWICE A [...] Refills, Maintenance, 07/09/22 10:30:00 EDT, [facility]/pharmacy #[id number], 30, 1 tablet By Mouth Daily,Instr:INSTR:TAKE [...] Required Details, Route to Pharmacy Electronically, [facility]/pharmacy... Start Date: 05/02/22 Status: Ordered diclofenac 1% topical gel See Instructions, APPLY TOPICALLY 4 TIMES A DAY NOT TO EXCEED 16 GRAMS/DAY/SINGLE JOINT OF LOWER EXTREMITIES, # 100 Gm, 6 Refills, Maintenance, 03/19/22 9:28:00 EST, [facility], 30, APPLY TOPICALLY 4 TIMES A DAY NOT TO EXCEED 16 GRAMS/DAY/SINGLE... Start Date: 03/19/22 Status: Ordered docusate sodium 100 mg oral capsule See Instructions, TAKE 1 CAPSULE BY MOUTH TWICE A DAY NEEDED FOR CONSTIPATION, # 60 capsule, 5 Refills, Maintenance, 07/03/22 18:20:00 EDT, [facility]/pharmacy #[id number], Duplicate Rx. Original sent 07/03/22 with routing error. Re- sending to pharmacy, 157.5, cm... Start Date: 07/03/22 Status: Ordered docusate sodium 100 mg oral capsule 100 mg, 1, capsule, By Mouth, 2 times a day, PRN, # 60 capsule, Refills 5, Tot. Refills 5, Maintenance, as needed for constipation, 06/12/22 9:52:00 EDT, Route to Pharmacy Electronically, [facility]/pharmacy #[id number], Partial fill upon patient request if [...] each, 0 Refills, Maintenance, 03/22/22 16:35:00 EST, [facility], 30, INHALE 1 PUFF BY MOUTH TWICE A DAY, 157.5, cm, 03/22/22 13:25:00 EST, Height Start Date: 03/22/22 Status: Ordered fluticasone 50 mcg/inh nasal spray See Instructions, SPRAY 1 SPRAY INTO EACH NOSTRIL EVERY DAY, # 16 mL, 5 Refills, Maintenance, 07/05/22 16:20:00 EDT, [facility], 30, SPRAY 1 SPRAY INTO EACH NOSTRIL [...] mL, 6 Refills, Maintenance, 06/12/22 10:00:00 EDT, [facility], Partial fill upon patie... Start Date: 06/12/22 Status: Ordered Lantus Solostar Pen 100 units/mL subcutaneous solution See Instructions, Take 45 units in the AM and 45 units daily at bedtime. E11.9., # 30 mL, 9 Refills, Maintenance, 06/19/22 16:50:00 EDT, [facility], Partial fill upon patient requestif the prescription is for a schedule II opioid lucas... Start Date: 06/19/22 Status: Ordered lidocaine 5% topical ointment See Instructions, APPLY TO AFFECTED AREA 3 TIMES A DAY, # 35.44 Gm, 11 Refills, Maintenance, 02/28/22 8:51:00 EST, [facility]/pharmacy #[id number], 30, APPLY TO AFFECTED AREA 3 TIMES A DAY, 157.5, cm, 02/21/22 14:36:00 EST, Height Start Date: 02/28/22 Status: Ordered lidocaine 5% topical ointment See Instructions, APPLY TO AFFECTED AREA 3 TIMES A DAY, # 35.44 Gm, 11 Refills, Maintenance, 07/03/22 18:22:00 EDT, [facility]/pharmacy #[id number], 30, Duplicate Rx. Original sent 07/03/22 [...] 4 Refills, Maintenance, 05/02/22 14:02:00 EST, Tablet, [facility]/pharmacy #[id number], Partial fill upon patient request if the prescription is for a schedule II opioid drug., 157.5, cm, 04/11/22 10:50:00... Start Date: 05/02/22 Stop Date: 09/29/22 Status: Ordered [place]-3 Fish Oil 1000 mg oral capsule 1 capsule = 1,000 mg, By Mouth, Daily, # 90 capsule, 1 Refills, Maintenance, 08/01/22 10:17:00 EDT,[facility]/pharmacy #[id number], Partial fill upon patient request if the prescription is for a schedule II opioid drug., 157.5, cm, 08/01/22 9:27:00 EDT, Height Start Date: 08/01/22 Status: Ordered omeprazole 20 mg oral delayed release tablet 1 tablet = 20 mg, By Mouth, 2 times a day, do not crush or chew, # 60 tablet, 2 Refills, Maintenance, 06/14/22 16:40:00 EDT, EC Tablet, [facility]/pharmacy #[id number], Partial fill upon patient request if the prescription is for a schedule II opioid drug., 157.5,... Start Date: 06/14/22 Status: Ordered oxyCODONE 10 mg oral tablet TAKE 1/2 TAB EVERY 12 HOURS NEEDED FOR SEVERE NECK/LOW BACK PAIN. DO NOT FILL UNTIL 05/01/21 Start Date: 06/02/21 Status: Ordered Pen [place], 31 G x 8 mm BD Ultra [...] 05/02/22 14:40:00 EST, Route to Pharmacy Electronically, [facility]/pharmacy #[id number], Partial fill upon patient request if the prescription is for a schedule II opi... Start Date: 05/02/22 Status: Ordered opinion polls survey worker grabber tool opinion polls survey worker grabber tool, See Instructions, # 1 each, Refills 0, Tot. Refills 0, Maintenance, please dispense one opinion polls survey worker grabber tool, ICD 10 M54.6, length [...] 10:05:00 EDT, 06/12/22 10:05:00 EDT, Chew Tablet, [facility], Partial fill upon [...] Stop 12/15/22 14:36:00 EDT, 04/19/22 14:36:00 EST, [facility]/pharmacy #[id number], 157.5, cm, 04/11/22 10:50:00 EST, Height Start Date: 04/19/22 Stop Date: 12/15/22 Status: Ordered Topamax 25 mg oral tablet 3 tablet = 75 mg, By Mouth, Daily at bedtime, # 90 tablet, 6 Refills, Maintenance, 06/26/22 10:14:00 EDT, Tablet, [facility], 157.5, cm, 06/21/22 8:43:00 EDT, Height Start Date: 06/26/22 Stop Date: 01/22/23 Status: Ordered Trulicity Pen 3 mg/0.5 mL subcutaneous solution See Instructions, INJECT 0.5ML SUBCUTANEOUSLY EVERY WEEK, ROTATE INJECTION SITES, # 2 mL, 5 Refills, 01/23/22 16:33:00 EDT, [facility], 157.5, cm, 01/20/22 13:38:00 EDT, Height Start Date: 01/23/22 Status: Ordered Trulicity Pen 4.5 mg/0.5 mL subcutaneous solution See Instructions, 4.5 mg Subcutaneous Infusion weekly. E11.9, # 4 each, 5 Refills, Maintenance, 06/19/22 17:00:00 EDT, [facility], Partial fill upon patient request if the prescription is for a schedule II opioid drug., 157.5, cm, ... Start Date: 06/19/22 Status: Ordered valACYclovir 500 mg oral tablet 1, tablet, By Mouth, 2 times a day, PRN, # 6 tablet, Refills 2, Maintenance, NEEDED FOR OUTBREAKS, 07/11/22 16:11:00 EDT, Route to Pharmacy Electronically, [facility] ST[facility] 25543, 157.5, cm, 06/21/22 8:43:00 EDT, Height Start Date: 07/11/22 Stop Date: 07/14/22 Status: Ordered Vascepa 1 g oral capsule 2 capsule = 2 Gm, By Mouth, 2 times a day, # 360 capsule, 5 Refills, Maintenance, 05/03/20 15:59:00EST, Capsule, [facility]/pharmacy #[id number], 157.48, cm, 03/04/20 14:14:00 EST, Height Start Date: 05/03/20 Status: Ordered Ventolin HFA 108 mcg/inh inhalation aerosol with adapter 1 puffs, Inhalation, 4 times a day, PRN NEEDED FOR WHEEZING, # 18 each, 0 Refills, Maintenance, 04/04/22 12:59:00 EST, [facility], 157.5, cm, 03/22/22 13:25:00 EST, Height Start [...] 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 No wall motion abnormalities, Does [...] Team Personnel Name: Sergo Bazzi MD Position: [facility] Primary Care Physician Member Role: PCP Address: Address: [address] [place] [address] [place] [address]- Name: Lizbeth Barnhart Position: [facility] RN Member Role: Primary Care Nurse Care Team Related Persons Name: KALE, LB Address: home [address] [address] Name: LB HENLEY Address: [address] [place] [address] Name: MILENA CUBA Address: home [address] [place] [address]
--- OUTSIDE RECORDS SUMMARY | 2024-01-23 14:32 | XMS_ITS | Continuity of Care Document ---
Author Organization [facility] Address [address] [place] [address]- Care Team Providers Care Biztalk Administrator Name Role Phone Rose Mary FISCHER, Sergo Cole Primary Care Physician Encounter [facility] Date(s): 09/05/23 - 10/05/23 [facility] [address] [place], [place] [phone] Allergies, Adverse Reactions, Alerts Substance Reaction Severity Status morphine ITCH DIARRHEA Active cortisone Active Motrin eat lining of stomach Active Neurontin mental status changes Active Latex powder eats up skin Active trazodone DEPRESSION Active Naprosyn gi upset Active CeleBREX gi [...] Given 1Result Comment: [01/22/2017] [facility] [id number] 2Admin Note: vis given dated 10/24/12 3Admin [...] 1 Refills, Acute, 219:52:00 EDT, [facility], 157.48, cm, 10/11/20 9:39:00 EDT, Height Start [...] Date: 03/03/21 Stop Date: 02/26/22 Status: Ordered Xdtkd-Zefguc-Npff 300 mg oral capsule 1 capsule, By Mouth, 2 times a day, NOT COVERED., # 60 capsule, 11 Refills, [facility], 157.48, cm, 01/27/21 9:30:00 EDT, Height Start Date: 01/30/21 Status: Ordered ammonium lactate 12% topical cream 1 application, Topically, 2 times a day, # 385 Gm, 1 Refills, Maintenance, 12/22/22 14:16:00 EDT, Cream, [facility]/pharmacy #[id number], Partial fill upon patient request if the prescription is for a schedule IIopioid drug., 1 application Topically 2 times a day... Start Date: 12/22/22 Stop Date: 02/20/23 Status: Ordered Artificial Tears preserved solution 1 drops, Eyes, Both, 2 times a day, PRN for dry eyes, # 15 mL, 0 Refills, Maintenance, 09/10/23 8:57:00 EDT, Solution, [facility]/pharmacy #[id number], Partial fill upon patient request if the prescription is fora schedule II opioid drug., 1 drops Eyes, Both 2 ti... Start Date: 09/10/23 Status: Ordered atorvastatin 80 mg oral tablet 1 tablet, By Mouth, Daily, INSTR:REPLACES SIMVASTATIN, # 90 tablet, 1 Refills, Maintenance, 05/22/23 12:07:00 EST, [facility] STORE 06385, 157, cm, 05/06/23 14:23:00 EST, Height, 88.3, kg, 04/16/23 11:33:00EST, Dry Weight Start Date: 05/22/23 Status: Ordered BD Single Use Swab 70% topical pad See Instructions, TO CLEANS BEFORE INJECTIONS 5 X A DAY., # 150 Unknown, 11 Refills, Maintenance, 08/16/22 10:15:00 EDT, [facility], 30, TO CLEANS BEFORE INJECTIONS 5 X A DAY., 157.5, cm, 08/01/22 9:27:00 EDT, Height Start Date: 08/16/22 Status: Ordered busPIRone 5 mg oral tablet 5 mg, 1, tablet, By Mouth, 3 times a day, # 90 tablet, Refills 4, Tot. Refills 4, Maintenance, 09/10/23 10:46:00 EDT, Route to Pharmacy Electronically, [facility]/pharmacy #[id number], Partial fill upon patient request if the prescription is for a schedule II opio... Start Date: 09/10/23 Stop Date: 02/07/24 Status: Ordered capsaicin 0.075% topical cream See Instructions, APPLY TO AFFECTED AREA TWICE A DAY, # 57 Gm, 4 Refills, Maintenance, 04/11/23 10:18:00 EST, [facility] STORE 99809, 30, APPLY TO AFFECTED AREA TWICE A [...] Refills, Maintenance, 07/02/23 18:31:00 EDT, [facility], 90, TAKE 1 TABLET BY MOUTH DAILY [...] 09/10/23 10:46:00 EDT, Route to Pharmacy Electronically, [facility]/pharmacy #[id number], Partial fill... Start Date: 09/10/23 Stop Date: 02/07/24 Status: Ordered diclofenac 1% topical gel See Instructions, APPLY TOPICALLY 4 TIMES A DAY NOT TO EXCEED 16 GRAMS/DAY/SINGLE JOINT OF LOWER EXTREMITIES, # 100 Gm, 4 Refills, Maintenance, 09/10/23 8:56:00 EDT, [facility]/pharmacy #[id number], 30, APPLY TOPICALLY 4 [...] capsule, 5 Refills, Maintenance, 07/03/22 18:20:00 EDT, [facility]/pharmacy #[id number], Duplicate Rx. Original sent 07/03/22 with routing error. Re- sending to pharmacy, 157.5, cm... Start Date: 07/03/22 Status: Ordered esomeprazole 40 mg oral enteric coated capsule 1 capsule = 40 mg, By Mouth, Daily, # 90 capsule, 3 Refills, Maintenance, 09/25/23 16:33:00 EDT, [facility]/pharmacy #[id number], Partial fill upon patient request if the prescription is for a schedule II opioid drug., 157, cm, 09/25/23 16:26:00 EDT, Height, 84, k... Start Date: 09/25/23 Status: Ordered esomeprazole 40 mg oral enteric coated capsule 1 capsule = 40 mg, By Mouth, Daily, # 90 capsule, 1 Refills, Maintenance, 09/02/23 16:20:00 EDT, [facility]/pharmacy #[id number], Partial fill upon patient [...] Refills, Maintenance, 09/20/22 9:36:00 EDT, [facility], 30, INHALE 1 PUFF BY MOUTH TWICE A DAY, 157.5, cm, 09/05/22 16:22:00 EDT, Height Start Date: 09/20/22 Status: Ordered fluticasone 50 mcg/inh nasal spray See Instructions, SPRAY 1 SPRAY INTO EACH NOSTRIL EVERY DAY, # 16 mL, 5 Refills, Maintenance, 07/05/22 16:20:00 EDT, [facility], 30, SPRAY 1 SPRAY INTO EACH NOSTRIL [...] tablet, 4 Refills, Maintenance, 03/11/23 15:50:00 EST, [facility] 75[facility], 157.5, cm, 02/19/23 9:20:00 EST, Height Start [...] mL, 6 Refills, Maintenance, 07/24/23 13:20:00 EDT, [facility], Partial fill upon patient request if the prescription is for a schedule II opioid drug., 157, cm, 07/24/23 12:52:00... Start Date: 07/24/23 Status: Ordered hydrOXYzine hydrochloride 25 mg oral tablet 1 tablet = 25 mg, By Mouth, 2 times a day, as needed for anxiety, # 60 tablet, 4 Refills, Soft Stop, 09/10/23 10:47:00 EDT, Tablet, [facility]/pharmacy #[id number], Partial fill upon patient request if the prescription is for a schedule II opioid drug., 157, cm, 0... Start Date: 09/10/23 Stop Date: 02/07/24 Status: Ordered lactase 3000 u oral tablet 3 tablet, By Mouth, 3 times a day with meals, X30 DAYS., # 120 tablet, 5 Refills, Maintenance, 04/25/23 15:25:00 EST, [facility] STORE 31063, 157, cm, 04/17/23 7:57:00 EST, Height, 88.3, kg, 04/16/23 11:33:00 EST, Dry Weight Start Date: 04/25/23 Status: Ordered Lantus Solostar Pen 100 units/mL subcutaneous solution See Instructions, Take 45 units in the AM and 45 units daily at bedtime. E11.9., # 30 mL, 9 Refills, Maintenance, 07/24/23 13:18:00 EDT, [facility], Partial fill upon patient requestif the prescription is for a schedule II opioid lucas... Start Date: 07/24/23 Status: Ordered levothyroxine 0.1 mg oral tablet 1 tablet = 100 mcg, By Mouth, Daily, # 30 tablet, 11 Refills, Maintenance, 07/25/23 8:52:00 EDT, [facility]/pharmacy #[id number], stop the 112mcg dose, 157, cm, 07/24/23 12:52:00 EDT, Height, 84, kg, 07/24/23 12:52:00 EDT, Dry Weight Start Date: 07/25/23 Stop Date: 07/19/24 Status: Ordered lidocaine 5% topical ointment See Instructions, APPLY TO AFFECTED AREA 3 TIMES A DAY, # 35.44 Gm, 11 Refills, Maintenance, 02/28/22 8:51:00 EST, [facility]/pharmacy #[id number], 30, APPLY TO AFFECTED AREA 3 TIMES A DAY, 157.5, cm, 02/21/22 14:36:00 EST, Height Start Date: 02/28/22 Status: Ordered lidocaine 5% topical ointment See Instructions, APPLY TO AFFECTED AREA 3 TIMES A DAY, # 35.44 Gm, 11 Refills, Maintenance, 07/03/22 18:22:00 EDT, [facility]/pharmacy #[id number], 30, Duplicate Rx. Original sent 07/03/22 with routing error. Re-sending to pharmacy, APPLY TO AFFECTED AREA 3 TIMES A... Start Date: 07/03/22 Status: Ordered losartan 50 mg oral tablet See Instructions, TAKE 1 TABLET BY MOUTH EVERY DAY, # 90 tablet, 1 Refills, Maintenance, 03/11/23 15:50:00 EST, [facility] STORE 29274, 157.5, cm, 02/19/23 9:20:00 EST, Height Start Date: 03/11/23 Status: Ordered Lyrica 25 mg oral capsule See Instructions, 1 capsule By Mouth 1 time daily at bedtime. E11.9, # 30 each, 2 Refills, Maintenance, 08/08/23 11:19:00 EDT, Capsule, [facility]/pharmacy #[id number], Partial fill upon patient request if the prescription is for a schedule II opioid drug., 157, c... Start Date: 08/08/23 Status: Ordered mirtazapine 15 mg oral tablet 1 tablet = 15 mg, By Mouth, Daily at bedtime, # 30 tablet, 4 Refills, Maintenance, 09/10/23 10:47:00 EDT, Tablet, [facility]/pharmacy #[id number], Partial fill upon patient request if the prescription is for a schedule II opioid drug., 157, cm, 09/10/23 8:42:00 ED... Start Date: 09/10/23 Stop Date: 02/07/24 Status: Ordered Murine Ear Drops 6.5% solution See Instructions, INSTILL 5 DROPS INTO BOTH EARS TWICE DAILY FOR 7 DAYS, # 15 mL, 0 Refills, Maintenance, 09/30/23 10:01:00 EDT, [facility] STORE 20923, 30, INSTILL 5 DROPS INTO BOTH EARS TWICE DAILY FOR 7 DAYS, 157, cm, 09/25/23 16:26:00 EDT, Height, 84, kg... Start Date: 09/30/23 Status: Ordered Narcan 4 mg/0.1 mL nasal spray = 4 mg, Nares, Both, Once, # 2 each, 2 Refills, Soft Stop, 02/22/23 14:30:00 EST, [facility]/pharmacy #[id number], Partial fill upon patient request if the prescription is for a schedule II opioid drug., 157.5, cm, 02/19/23 9:20:00 EST, Height Start Date: 02/22/23 Status: Ordered [place]-3 Fish Oil 1000 mg oral capsule 1 capsule = 1,000 mg, By Mouth, Daily, # 90 capsule, 1 Refills, Maintenance, 08/01/22 10:17:00 EDT,[facility]/pharmacy #[id number], Partial fill upon patient [...] tablet, 2 Refills, Maintenance, 07/03/23 14:40:00 EDT, [facility] STORE 13442, 157, cm, 06/24/23 14:54:00 EDT, Height, 88.3, [...] mL, 11 Refills, Maintenance, 08/23/23 11:17:00 EDT, [facility], Partial fill upon patient request if... Start Date: 08/23/23 Status: Ordered Pen [place], 31 G x 8 mm BD Ultra [...] 09/10/23 10:47:00 EDT, Route to Pharmacy Electronically, [facility]/pharmacy #[id number], Partial fill upon patient request if the prescription is for a schedule II opi... Start Date: 09/10/23 Stop Date: 02/07/24 Status: Ordered goggles assembler grabber tool goggles assembler grabber tool, See Instructions, # 1 each, Refills 0, Tot. Refills 0, Maintenance, please dispense one goggles assembler grabber tool, ICD 10 M54.6, length of [...] tablet, 10 Refills, Maintenance, 08/15/23 14:04:00 EDT, [facility]/pharmacy #[id number], 157, cm, 07/24/23 12:52:00 EDT, Height, 84, kg, 07/24/23 12:52:00 EDT, Dry Weight Start Date: 08/15/23 Status: Ordered valACYclovir 500 mg oral tablet 1, tablet, By Mouth, 2 times a day, PRN, # 6 tablet, Refills 0, Maintenance, NEEDED FOR OUTBREAKS, 08/05/23 15:33:00 EDT, Route to Pharmacy Electronically, [facility], 157, cm, 07/24/23 12:52:00 EDT, Height, 84, [...] Refills, Maintenance, 09/17/22 15:25:00 EDT, [facility], 157.5, cm, 09/05/22 16:22:00 EDT, Height Start [...] 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 No wall motion abnormalities, Does [...] Team Personnel Name: Sergo Bazzi MD Position: [facility] Physician - Primary Care Member Role: PCP Address: Address: [address] [place] [address] [place] [address]- Name: Lizbeth Collins [place] Position: [facility] Office Staff Member Role: Primary Care Nurse Care Team Related Persons Name: LB HENLEY Address: home [address] [place] [address] Name: LB HENLEY Address: home [address] [address] Name: MILENA CUBA Address: home [address] [place] [address]
--- OUTSIDE RECORDS SUMMARY | 2024-01-23 14:32 | XMS_ITS | Continuity of Care Document ---
Author Organization [facility] Address [address] [place] [address]- Care Team Providers Care Energy Audit Advisor Name Role Phone Sergo Bazzi MD Primary Care Physician Encounter [facility] Date(s): 03/18/22 - 04/17/22 [facility] [address], [place] [address] Allergies, Adverse Reactions, Alerts Substance Reaction Severity [...] 1Result Comment: [01/22/2017] [facility] [id number] 2Admin Note: vis given dated 10/24/12 3Admin Note: vis given dated 10/01/11 4Admin Note: vis 5Admin Note: vis 6Admin Note: vis given: 10/27/2006 7Admin Note: vis given : 10/10/2005 8Admin Note: vis given 2007- Medications acetaminophen 500 mg oral tablet 2 tablet, By Mouth, 4 times a day, PRN NEEDED FOR PAIN, # 100 tablet, 1 Refills, Acute, 219:52:00 EDT, [facility] 84[facility], 157.48, cm, 10/11/20 9:39:00 EDT, Height Start Date: 10/26/20 Status: Ordered Alcohol Pads See Instructions, # 200 each, Refills 11, Tot. Refills 11, Maintenance, To cleans before injections5 x a day., 03/03/21 9:18:00 EST, E11.65, Compound, 157.48, cm, 03/01/21 15:54:00 EST, Height Start Date: 03/03/21 Stop Date: 02/26/22 Status: Ordered Xqyko-Akgksr-Wdoc 300 mg oral capsule 1 capsule, By Mouth, 2 times a day, NOT COVERED., # 60 capsule, 11 Refills, [facility], 157.48, cm, 01/27/21 9:30:00 EDT, Height Start Date: 01/30/21 Status: Ordered ammonium lactate 12% topical cream 1 application, Topically, 2 times a day, # 385 Gm, 3 Refills, Maintenance, 04/05/22 13:30:00 EST, Cream, [facility]/pharmacy #[id number], Partial fill upon patient request if the prescription is for a schedule IIopioid drug., 1 application Topically 2 times a day... Start Date: 04/05/22 Stop Date: 08/03/22 Status: Ordered atorvastatin 80 mg oral tablet 1 tablet = 80 mg, By Mouth, Daily, replaces Simvastatin, # 90 tablet, 4 Refills, Maintenance, 08/26/22 14:22:00 EDT, Tablet, [facility]/pharmacy #[id number], replaces simvastatin, 157.5, cm, 11/29/21 15:59:00 EDT, Height Start Date: 08/26/22 Stop Date: 11/19/23 Status: Ordered capsaicin 0.075% topical cream See Instructions, APPLY TO AFFECTED AREA TWICE A DAY, # 57 Gm, 4 Refills, Maintenance, 03/05/22 13:29:00 EST, [facility], 30, APPLY TO AFFECTED AREA TWICE A [...] Refills, Maintenance, 08/19/20 16:26:00 EDT, [facility], 30, TAKE 1 TABLET BY MOUTH DAILY. [...] Gm, 6 Refills, Maintenance, 03/19/22 9:28:00 EST, [facility], 30, APPLY TOPICALLY 4 TIMES A DAY NOT TO EXCEED 16 GRAMS/DAY/SINGLE... Start Date: 03/19/22 Status: Ordered docusate sodium 100 mg oral capsule 100 mg, 1, capsule, By Mouth, 2 times a day, PRN, # 60 capsule, Refills 5, Tot. Refills 5, Maintenance, as needed for constipation, 11/10/21 9:17:00 EDT, Route to Pharmacy Electronically, [facility]/pharmacy #[id number], Partial fill upon patient request [...] each, 0 Refills, Maintenance, 03/22/22 16:35:00 EST, [facility] STORE 34520, 30, INHALE 1 PUFF BY MOUTH TWICE A DAY, 157.5, cm, 03/22/22 13:25:00 EST, Height Start Date: 03/22/22 Status: Ordered fluticasone 50 mcg/inh nasal spray See Instructions, USE 1 SPRAY IN EACH NOSTRIL EVERY DAY, # 16 mL, 5 Refills, 12/29/21 15:10:00 EDT,[facility]/pharmacy #[id number], USE 1 SPRAY IN EACH NOSTRIL [...] mL, 3 Refills, Maintenance, 03/22/22 15:43:00 EST, [facility], Partial fill upon patie... Start Date: 03/22/22 Status: Ordered Lantus Solostar Pen 100 units/mL subcutaneous solution See Instructions, Decreased to 60U once a day as of 12/29/19, # 30 mL, 9 Refills, Maintenance, 09/20/20 15:10:00 EDT, [facility], NEEDS 30 ML FOR 30 DAY SUPPLY E11.9, 157.48, cm, 05/31/20 9:41:00 EST, Height Start Date: 09/20/20 Status: Ordered Lantus Solostar Pen 100 units/mL subcutaneous solution See Instructions, Take 80 units via Subcutaneous Infusion Daily at bedtime. E11.9., # 30 mL, 9 Refills, Maintenance, 03/22/22 15:41:00 EST, [facility], Partial fill upon patient request if the prescription is for a schedule II opioid... Start Date: 03/22/22 Status: Ordered lidocaine 5% topical ointment See Instructions, APPLY TO AFFECTED AREA 3 TIMES A DAY, # 35.44 Gm, 11 Refills, Maintenance, 02/28/22 8:51:00 EST, [facility]/pharmacy #[id number], 30, APPLY TO AFFECTED AREA 3 TIMES A DAY, 157.5, cm, 02/21/22 14:36:00 EST, Height Start Date: 02/28/22 Status: Ordered losartan 50 mg oral tablet 1 tablet, By Mouth, Daily, # 30 tablet, 5 Refills, 12/08/21 16:06:00 EDT, [facility]/pharmacy #[id number], 157.5, cm, 11/29/21 15:59:00 EDT, Height Start Date: 12/08/21 Status: Ordered Lyrica 25 mg oral capsule See Instructions, 1 capsule By Mouth 1 time daily at bedtime. E11.9, # 30 each, 5 Refills, Maintenance, 09/18/21 12:21:00 EDT, Capsule, [facility]/pharmacy #[id number], Partial fill upon patient request [...] Refills, Maintenance, 03/30/22 10:50:00 EST, EC Tablet, [facility]/pharmacy #[id number], Partial fill upon patient request if the prescription is for a schedule II opioid drug., 157.5,... Start Date: 03/30/22 Status: Ordered oxyCODONE 10 mg oral tablet TAKE 1/2 TAB EVERY 12 HOURS NEEDED FOR SEVERE NECK/LOW BACK PAIN. DO NOT FILL UNTIL 05/01/21 Start Date: 06/02/21 Status: Ordered Pen [place], 31 G x 8 mm BD Ultra [...] 1 Refills, Maintenance, 04/11/22 11:31:00 EST, Tablet, [facility]/pharmacy #[id number], Partial fill upon patient request if the prescription is for a schedule II opioid drug., 157.5, cm, 04/11/22 10:50:00 EST, Height Start Date: 04/11/22 Status: Ordered international travel consultant grabber tool international travel consultant grabber tool, See Instructions, # 1 each, Refills 0, Tot. Refills 0, Maintenance, please dispense one international travel consultant grabber tool, ICD 10 M54.6, length of use 1 month, 04/12/22 10:13:00 EST, Supply Start Date: 04/12/22 Status: Ordered simethicone 125 mg oral tablet, chewable 1 tablet = 125 mg, Chew, 4 times a day, PRN gas pain, for 21 days, # 48 tablet, 4 Refills, Acute 04/24/22 11:08:00 EST, 01/09/22 11:08:00 EDT, Chew Tablet, [facility]/pharmacy #[id number], Partial fill upon patient request if the prescription is for a schedule II... Start Date: 01/09/22 Stop Date: 1/24/23 Status: Ordered SUMAtriptan 25 mg oral tablet 1 tablet, By Mouth, Daily, PRN NEEDED FOR MIGRAINES, for 30 days, JULY RPT DOSE AFTER 2 HRS TO MAX OF 2, # 12 tablet, 7 Refills, Physician Stop 09/16/22 11:02:00 EDT, 01/19/22 11:02:00 EDT, [facility]/pharmacy #[id number], 157.5, cm, 01/09/22 10:18:00 EDT, Height Start Date: 01/19/22 Stop Date: 09/16/22 Status: Ordered Topamax 25 mg oral tablet 3 tablet = 75 mg, By Mouth, Daily at bedtime, # 90 tablet, 6 Refills, Maintenance, 01/19/22 10:34:00 EDT, Tablet, [facility]/pharmacy #[id number], 157.5, cm, 01/09/22 10:18:00 EDT, Height Start Date: 01/19/22 Stop Date: 08/17/22 Status: Ordered Trulicity Pen 3 mg/0.5 mL subcutaneous solution See Instructions, INJECT 0.5ML SUBCUTANEOUSLY EVERY WEEK, ROTATE INJECTION SITES, # 2 mL, 5 Refills, 01/23/22 16:33:00 EDT, [facility], 157.5, cm, 01/20/22 13:38:00 EDT, Height Start Date: 01/23/22 Status: Ordered Trulicity Pen 4.5 mg/0.5 mL subcutaneous solution See Instructions, 4.5 mg Subcutaneous Infusion weekly. E11.9, # 4 each, 5 Refills, Maintenance, 03/22/22 15:41:00 EST, [facility], Partial fill upon patient request if the prescription is for a schedule II opioid drug., 157.5, cm, ... 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
--- OUTSIDE RECORDS SUMMARY | 2024-01-23 14:32 | XMS_ITS | Continuity of Care Document ---
Author Organization [facility] Address [address] [place] [address]- Care Team Providers Care Transplant Coordinator Name Role Phone Sergo Bazzi MD Primary Care Physician En[place] [facility] Date(s): 03/30/19 - 05/09/19 [facility] [address] [place] [address]- [facility] Attending Physician: Not on Staff, Attending MD [...] 8 01/21/08 Given 1Result Comment: [01/22/2017] [facility] [id number] 2Admin Note: vis given dated 10/24/12 3Admin [...] tablet, 5 Refills, Maintenance, 05/05/19 11:32:00 EST, [facility] STORE 87727, 157.48, cm, 04/27/19 15:43:00 EST, Height Start Date: 05/05/19 Status: Ordered atorvastatin 80 mg oral tablet 1 tablet = 80 mg, By Mouth, Daily, replaces Simvastatin, # 90 tablet, 1 Refills, Maintenance, Tablet, Route to Pharmacy Electronically, [id number], [facility]/pharmacy #[id number], replaces simvastatin Start Date: 06/06/18 [...] 0 Refills, Maintenance, 04/27/19 11:54:00 EST, Tablet, [id number], 157.48, cm, 03/09/19 15:46:00 EST, Height [...] DAY, # 16 mL, 1 Refills, Maintenance, [facility] STORE 55863, 30, USE 1 SPRAY IN EACH NOSTRIL [...] 06/06/18 10:47:42 EST, Route to Pharmacy Electronically, [id number], [facility]/pharmacy #[id number] Start Date: 06/06/18 Stop Date: 06/01/19 Status: [...] request Start Date: 02/16/19 Status: Ordered Pen [place], 31 G x 8 mm BD Ultra [...] r HSV(Confirmed) 5 02/20/10 Active Reflux(Confirmed) Active 04317 -EF 60-65%. No wall motion abnormalities, Does [...]
--- OUTSIDE RECORDS SUMMARY | 2024-01-23 14:32 | XMS_ITS | Continuity of Care Document ---
Author Organization [facility] Address [address] [place] [address]- Care Team Providers Care Searchlight Operator Name Role Phone Rose Mary FISCHER, Sergo Cole Primary Care Physician [place] [facility] [place]/23 [facility] [address], [place] [address] Allergies, Adverse Reactions, Alerts Substance [...] 1Result Comment: [01/22/2017] [facility] 53304-084-40 2Admin Note: vis given dated 10/24/12 3Admin [...] 100 tablet, 1 Refills, Acute, 219:52:00 EDT, [facility], 157.48, cm, 10/11/20 9:39:00 EDT, Height Start Date: 10/26/20 Status: Ordered Alcohol Pads See Instructions, # 200 each, Refills 11, Tot. Refills 11, Maintenance, To cleans before injections5 x a day., 03/03/21 9:18:00 EST, E11.65, Compound, 157.48, cm, 03/01/21 15:54:00 EST, Height Start Date: 03/03/21 Stop Date: 02/26/22 Status: Ordered Lembc-Lrjpll-Fqgt 300 mg oral capsule 1 capsule, By Mouth, 2 times a day, NOT COVERED., # 60 capsule, 11 Refills, [facility]64, 157.48, cm, 01/27/21 9:30:00 EDT, Height Start Date: 01/30/21 Status: Ordered ammonium lactate 12% topical cream 1 application, Topically, 2 times a day, # 385 Gm, 1 Refills, Maintenance, 12/22/22 14:16:00 EDT, Cream, [facility]/pharmacy #[id number], Partial fill upon patient request if the [...] 11/19/23 14:22:00 EDT, 08/26/22 14:22:00 EDT, Tablet, [facility]/pharmacy #[id number], replaces simvastatin,157.5, cm, 11/29/21 15:59:00 EDT, Height Start Date: 08/26/22 Stop Date: 11/19/23 Status: Ordered BD Single Use Swab 70% topical pad See Instructions, TO CLEANS BEFORE INJECTIONS 5 X A DAY., # 150 Unknown, 11 Refills, Maintenance, 08/16/22 10:15:00 EDT, [facility], 30, TO CLEANS [...] capsule, 0 Refills, Maintenance, 12/24/22 15:20:00 EDT, [facility]/pharmacy #[id number], Partial fill [...] each, 0 Refills, Maintenance, 09/20/22 9:36:00 EDT, [facility], 30, INHALE 1 PUFF BY MOUTH TWICE A DAY, 157.5, cm, 09/05/22 16:22:00 EDT, Height Start Date: 09/20/22 Status: Ordered fluticasone 50 mcg/inh nasal spray See Instructions, SPRAY 1 SPRAY INTO EACH NOSTRIL EVERY DAY, # 16 mL, 5 Refills, Maintenance, 07/05/22 16:20:00 EDT, [facility], 30, SPRAY 1 SPRAY INTO EACH NOSTRIL [...] mL, 6 Refills, Maintenance, 11/26/22 14:55:00 EDT, [facility], Partial fill upon patie... Start [...] mL, 9 Refills, Maintenance, 11/26/22 14:55:00 EDT, [facility], Partial fill upon patient requestif [...] Date: 12/06/22 Stop Date: 05/05/23 Status: Ordered [place]-3 Fish Oil 1000 mg oral capsule 1 [...] 05/01/21 Start Date: 06/02/21 Status: Ordered Pen [place], 31 G x 8 mm BD Ultra [...] to Pharmacy Electronically, [facility]/pharmacy #[id number], Partial fill upon patient request if the prescription is for a schedule II opi... Start Date: 12/06/22 Stop Date: 05/05/23 Status: Ordered blast furnace blower grabber tool blast furnace blower grabber tool, See Instructions, # 1 each, Refills 0, Tot. Refills 0, Maintenance, please dispense one blast furnace blower grabber tool, ICD 10 M54.6, length of [...] tablet, 10 Refills, Maintenance, 01/17/23 8:54:00 EDT, [facility], 157.5, cm, 12/28/22 15:12:00 EDT, Height Start Date: 01/17/23 Status: Ordered Trulicity Pen 4.5 mg/0.5 mL subcutaneous solution See Instructions, INJECT 4.5 MG SUBCUTANEOUSLY ONCE A WEEK, # 2 mL, 5 Refills, Maintenance, 11/21/22 8:33:00 EDT, [facility], 157.5, cm, 11/16/22 13:50:00 EDT, Height Start Date: 11/21/22 Status: Ordered valACYclovir 500 mg oral tablet 1, tablet, By Mouth, 2 times a day, PRN, # 6 tablet, Refills 1, Tot. 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 No wall motion abnormalities, Does [...] Name: Rose Mary FISCHER, Sergo Cole Position: [facility] Physician - Primary Care Member Role: PCP Address: Address: [address] [facility] [place] [address]- Name: Lizbeth Collins [place] Position: [facility] RN Member Role: Primary Care Nurse Care Team Related Persons Name: LB HENLEY Address: home [address] [place] [address] Name: LB HENLEY Address: [address] [address] Name: MILENA CUBA Address: home [address] [place] [address]
--- OUTSIDE RECORDS SUMMARY | 2024-01-23 14:32 | XMS_ITS | Continuity of Care Document ---
Author Organization [facility] Address [address] [place] [address]- Care Team Providers Care Chief Librarian Work With Blind Name Role Phone Rose Mary FISCHER, Sergo Cole Primary Care Physician [phone] [place] [facility] [place](s[place] 01/21/23 - 02/20/23 [facility] [address], [place] [address] Allergies, Adverse Reactions, Alerts Substance [...] 1Result Comment: [01/22/2017] [facility] [id number] 2Admin Note: vis given dated 10/24/12 3Admin [...] 100 tablet, 1 Refills, Acute, 219:52:00 EDT, [facility] 28208, 157.48, cm, 10/11/20 9:39:00 EDT, Height Start Date: 10/26/20 Status: Ordered Alcohol Pads See Instructions, # 200 each, Refills 11, Tot. Refills 11, Maintenance, To cleans before injections5 x a day., 03/03/21 9:18:00 EST, E11.65, Compound, 157.48, cm, 03/01/21 15:54:00 EST, Height Start Date: 03/03/21 Stop Date: 02/26/22 Status: Ordered Kkdpu-Nqzeas-Rpfa 300 mg oral capsule 1 capsule, By Mouth, 2 times a day, NOT COVERED., # 60 capsule, 11 Refills, [facility] 75983, 157.48, cm, 01/27/21 9:30:00 EDT, Height Start Date: 01/30/21 Status: Ordered ammonium lactate 12% topical cream 1 application, Topically, 2 times a day, # 385 Gm, 1 Refills, Maintenance, 12/22/22 14:16:00 EDT, Cream, [facility]/pharmacy #[id number], Partial fill upon patient request if the prescription is for a schedule IIopioid drug., 1 application Topically 2 times a day... Start Date: 12/22/22 Stop Date: 02/20/23 Status: Ordered atorvastatin 80 mg oral tablet 1 tablet = 80 mg, By Mouth, Daily, replaces Simvastatin, # 90 tablet, 1 Refills, Maintenance, 11/19/23 14:22:00 EDT, Tablet, [facility]/pharmacy #[id number], replaces simvastatin, 157.5, cm, 11/26/22 14:11:00 EDT, Height Start Date: 11/19/23 Stop Date: 05/17/24 Status: Ordered atorvastatin 80 mg oral tablet 1 tablet = 80 mg, By Mouth, Daily, for 90 days, replaces Simvastatin, # 90 tablet, 4 Refills, Hard Stop 11/19/23 14:22:00 EDT, 08/26/22 14:22:00 EDT, Tablet, [facility]/pharmacy #[id number], replaces simvastatin,157.5, cm, 11/29/21 15:59:00 [...] Gm, 4 Refills, Maintenance, 08/24/22 14:16:00 EDT, [facility]/pharmacy #[id number], 30, APPLY TO AFFECTED [...] tablet, 11 Refills, Maintenance, 07/09/22 10:30:00 EDT, [facility]/pharmacy #[id number], 30, 1 tablet By [...] capsule, 5 Refills, Maintenance, 07/03/22 18:20:00 EDT, [facility]/pharmacy #[id number], Duplicate Rx. Original sent 07/03/22 with routing error. Re- sending to pharmacy, 157.5, cm... Start Date: 07/03/22 Status: Ordered docusate sodium 100 mg oral capsule 100 mg, 1, capsule, By Mouth, 2 times a day, PRN, # 60 capsule, Refills 5, Tot. Refills 5, Maintenance, as needed for constipation, 06/12/22 9:52:00 EDT, Route to Pharmacy Electronically, [facility]/pharmacy #[id number], Partial fill upon patient request if the pr... Start Date: 06/12/22 Status: Ordered esomeprazole 40 mg oral enteric coated capsule 1 capsule = 40 mg, By Mouth, Daily, # 90 capsule, 0 Refills, Maintenance, 12/24/22 15:20:00 EDT, [facility]/pharmacy #[id number], Partial fill upon [...] each, 0 Refills, Maintenance, 09/20/22 9:36:00 EDT, [facility], 30, INHALE 1 PUFF BY MOUTH TWICE A DAY, 157.5, cm, 09/05/22 16:22:00 EDT, Height Start Date: 09/20/22 Status: Ordered fluticasone 50 mcg/inh nasal spray See Instructions, SPRAY 1 SPRAY INTO EACH NOSTRIL EVERY DAY, # 16 mL, 5 Refills, Maintenance, 07/05/22 16:20:00 EDT, [facility]1992, 30, SPRAY 1 SPRAY INTO EACH NOSTRIL [...] 6 Refills, Maintenance, 11/26/22 14:55:00 EDT, [facility], Partial fill [...] 5 Refills, Maintenance, 08/17/22 9:03:00 EDT, Tablet, [facility]/pharmacy #[id number], Partial fill upon patient request if the prescription is for a schedule II opioid drug., 157.5, cm, ... Start Date: 08/17/22 Stop Date: 02/13/23 Status: Ordered Lantus Solostar Pen 100 units/mL subcutaneous solution See Instructions, Take 45 units in the AM and 45 units daily at bedtime. E11.9., # 30 mL, 9 Refills, Maintenance, 11/26/22 14:55:00 EDT, [facility], Partial fill upon patient requestif the prescription is for a schedule II opioid lucas... Start Date: 11/26/22 Status: Ordered lidocaine 5% topical ointment See Instructions, APPLY TO AFFECTED AREA 3 TIMES A DAY, # 35.44 Gm, 11 Refills, Maintenance, 02/28/22 8:51:00 EST, [facility]/pharmacy #[id number], 30, APPLY TO AFFECTED AREA 3 TIMES A DAY, 157.5, cm, 02/21/22 14:36:00 EST, Height Start Date: 02/28/22 Status: Ordered lidocaine 5% topical ointment See Instructions, APPLY TO AFFECTED AREA 3 TIMES A DAY, # 35.44 Gm, 11 Refills, Maintenance, 07/03/22 18:22:00 EDT, [facility]/pharmacy #[id number], 30, Duplicate Rx. Original [...] Date: 12/06/22 Stop Date: 05/05/23 Status: Ordered [place]-3 Fish Oil 1000 mg oral capsule 1 [...] 05/01/21 Start Date: 06/02/21 Status: Ordered Pen [place], 31 G x 8 mm BD Ultra [...] 12/06/22 13:08:00 EDT, Route to Pharmacy Electronically, [facility]/pharmacy #[id number], Partial fill upon patient request if the prescription is for a schedule II opi... Start Date: 12/06/22 Stop Date: 05/05/23 Status: Ordered cable tool operator grabber tool cable tool operator grabber tool, See Instructions, # 1 each, Refills 0, Tot. 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 No wall motion abnormalities, Does [...] Name: Rose Mary FISCHER, Sergo Cole Position: [facility] Physician - Primary Care Member Role: PCP Address: Address: [address] [facility] [place] [address]- Name: Lizbeth Collins [place] Position: [facility] RN Member Role: Primary Care Nurse Care Team Related Persons Name: LB HENLEY Address: home [address] [place] [address] Name: LB HENLEY Address: [address] [address] Name: MILENA CUBA Address: home [address] [place] [address]
--- OUTSIDE RECORDS SUMMARY | 2024-01-23 14:33 | XMS_ITS | Continuity of Care Document ---
Author Organization [facility] Address [address], [address], [address] [place] [address]- Care Team Providers Care Reservoir Engineer Name Role Phone Rose Mary FISCHER, Sergo Cole Primary Care Physician [phone] [place] [facility] [place]): [place] [facility] [address], [address], [address] [place] [address]- Attending Physician: Not on Staff, Attending MD [...] (oldterm) 8 01/21/08 Given 1Result Comment: [01/22/2017] [facility] [id number] 2Admin Note: vis given dated 10/24/12 3Admin Note: vis given dated 10/01/11 4Admin Note: vis 5Admin Note: vis 6Admin Note: vis given: 10/27/2006 7Admin Note: vis given : 10/10/2005 8Admin Note: vis given 2007- Medications acetaminophen 500 mg oral tablet 2 tablet, By Mouth, 4 times a day, PRN NEEDED FOR PAIN, # 100 tablet, 1 Refills, Acute, 219:52:00 EDT, [facility], 157.48, cm, 10/11/20 9:39:00 EDT, Height Start Date: 10/26/20 Status: Ordered Alcohol Pads See Instructions, # 200 each, Refills 11, Tot. Refills 11, Maintenance, To cleans before injections5 x a day., 03/03/21 9:18:00 EST, E11.65, Compound, 157.48, cm, 03/01/21 15:54:00 EST, Height Start Date: 03/03/21 Stop Date: 02/26/22 Status: Ordered Wealr-Fvjdkt-Mqgv 300 mg oral capsule 1 capsule, By Mouth, 2 times a day, NOT COVERED., # 60 capsule, 11 Refills, [facility]382, 157.48, cm, 01/27/21 9:30:00 EDT, Height Start [...] tablet, 11 Refills, Maintenance, 08/19/20 16:26:00 EDT, [facility]35, 30, TAKE 1 TABLET BY MOUTH DAILY. [...] 6 Refills, Maintenance, 09/01/21 13:11:00 EDT, Gel, [facility]/pharmacy #[id number], 157.48, cm, 08/24/21 8:03:00 EDT, Height Start Date: 09/01/21 Stop Date: 03/30/22 Status: Ordered docusate sodium 100 mg oral capsule 100 mg, 1, capsule, By Mouth, 2 times a day, PRN, # 60 capsule, Refills 5, Tot. Refills 5, Maintenance, as needed for constipation, 11/10/21 9:17:00 EDT, Route to Pharmacy Electronically, [facility]/pharmacy #[id number], Partial fill upon patient request [...] EVERY DAY, # 16 mL, 5 Refills, [facility] 44589, 30, USE 1 SPRAY IN EACH NOSTRIL EVERY DAY, 157.48, cm, 11/11/20 9:37:00 EDT, Height Start Date: 12/26/20 Status: Ordered Lantus Solostar Pen 100 units/mL subcutaneous solution See Instructions, Take 80 units via Subcutaneous Infusion Daily at bedtime. E11.9., # 30 mL, 9 Refills, Maintenance, 08/24/21 9:25:00 EDT, [facility], Partial fill upon patient request if the prescription is for a schedule II opioid d... Start Date: 08/24/21 Status: Ordered Lantus Solostar Pen 100 units/mL subcutaneous solution See Instructions, Decreased to 60U once a day as of 12/29/19, # 30 mL, 9 Refills, Maintenance, 09/20/20 15:10:00 EDT, [facility], NEEDS 30 ML FOR 30 DAY SUPPLY E11.9, 157.48, cm, 05/31/20 9:41:00 EST, Height Start Date: 09/20/20 Status: Ordered lidocaine 5% topical ointment See Instructions, APPLY TO AFFECTED AREA 3 TIMES A DAY, # 35.44 Gm, 11 Refills, [facility]44, 30, APPLY TO AFFECTED AREA 3 TIMES A DAY, 157.5, cm, 11/07/21 10:51:00 EDT, Height Start Date: 11/09/21 Status: Ordered losartan 50 mg oral tablet 1 tablet, By Mouth, Daily, # 30 tablet, 2 Refills, [facility] 88385, 157.48, cm, 05/05/21 9:51:00 EST, Height Start Date: 05/12/21 Status: Ordered Lyrica 25 mg oral capsule See Instructions, 1 capsule By Mouth 1 time daily at bedtime. E11.9, # 30 each, 5 Refills, Maintenance, 09/18/21 12:21:00 EDT, Capsule, [facility]/pharmacy #[id number], Partial fill upon patient request [...] 2 mL, 5 Refills, 08/24/21 9:20:00 EDT, [facility], 157.48, cm, 08/24/21 8:03:00 [...] Active *Briana Garces, Care Coor dinator, ICP [phone](Confirmed) Active Reflux(Confirmed) Active Hepatic steatosis(Confirmed) Active 74304 -EF 60-65%. No wall motion abnormalities, Does [...] Name: Rose Mary FISCHER, Sergo Cole Address: [address] [place] [address] Adult [address]
--- OUTSIDE RECORDS SUMMARY | 2024-01-23 14:33 | XMS_ITS | Continuity of Care Document ---
Author Organization 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 [address] [place], [place] [address] Attending Physician: Admtr, Ar8 Admitting Physician: Admtr, Ar8 Referring Physician: Admtr, Ar8 Allergies, Adverse Reactions, Alerts Substance Reaction Severity Status morphine ITCH DIARRHEA Active Motrin eat lining of stomach Active trazodone DEPRESSION Active cortisone Active Naprosyn [...] [01/22/2017] [facility] [id number] 2Admin Note: vis given dated 10/24/12 3Admin [...] 100 tablet, 1 Refills, Acute, 219:52:00 EDT, [facility], 157.48, cm, 10/11/20 9:39:00 EDT, Height Start Date: 10/26/20 Status: Ordered Alcohol Pads See Instructions, # 200 each, Refills 11, Tot. Refills 11, Maintenance, To cleans before injections5 x a day., 03/03/21 9:18:00 EST, E11.65, Compound, 157.48, cm, 03/01/21 15:54:00 EST, Height Start Date: 03/03/21 Stop Date: 02/26/22 Status: Ordered Yzprc-Cwwxms-Dvwz 300 mg oral capsule 1 capsule, By Mouth, 2 times a day, NOT COVERED., # 60 capsule, 11 Refills, [facility], 157.48, cm, 01/27/21 9:30:00 EDT, Height Start Date: 01/30/21 Status: Ordered ammonium lactate 12% topical cream 1 application, Topically, 2 times a day, # 385 Gm, 1 Refills, Maintenance, 12/22/22 14:16:00 EDT, Cream, [facility]/pharmacy #[id number], Partial fill upon patient request if the prescription is for a schedule IIopioid drug., 1 application Topically 2 times a day... Start Date: 12/22/22 Stop Date: 02/20/23 Status: Ordered atorvastatin 80 mg oral tablet 1 tablet, By Mouth, Daily, INSTR:REPLACES SIMVASTATIN, # 90 tablet, 1 Refills, Maintenance, 05/22/23 12:07:00 EST, [facility], 157, cm, 05/06/23 14:23:00 EST, Height, 88.3, kg, 04/16/23 11:33:00EST, Dry Weight Start Date: 05/22/23 Status: Ordered BD Single Use Swab 70% topical pad See Instructions, TO CLEANS BEFORE INJECTIONS 5 X A DAY., # 150 Unknown, 11 Refills, Maintenance, 08/16/22 10:15:00 EDT, [facility], 30, TO CLEANS BEFORE INJECTIONS 5 X A DAY., 157.5, cm, 08/01/22 9:27:00 EDT, Height Start Date: 08/16/22 Status: Ordered busPIRone 5 mg oral tablet 5 mg, 1, tablet, By Mouth, 2 times a day, # 60 tablet, Refills 4, Tot. Refills 4, Maintenance, 04/30/23 7:27:00 EST, Route to Pharmacy Electronically, [facility]/pharmacy #[id number], Partial fill upon patient request if the prescription is for a schedule II opioi... Start Date: 04/30/23 Stop Date: 09/27/23 Status: Ordered capsaicin 0.075% topical cream See Instructions, APPLY TO AFFECTED AREA TWICE A DAY, # 57 Gm, 4 Refills, Maintenance, 04/11/23 10:18:00 EST, [facility], 30, APPLY TO AFFECTED AREA TWICE A [...] tablet, 11 Refills, Maintenance, 07/09/22 10:30:00 EDT, [facility]/pharmacy #[id number], 30, 1 tablet By Mouth [...] each, 0 Refills, Maintenance, 09/20/22 9:36:00 EDT, [facility], 30, INHALE 1 PUFF BY MOUTH TWICE A DAY, 157.5, cm, 09/05/22 16:22:00 EDT, Height Start Date: 09/20/22 Status: Ordered fluticasone 50 mcg/inh nasal spray See Instructions, SPRAY 1 SPRAY INTO EACH NOSTRIL EVERY DAY, # 16 mL, 5 Refills, Maintenance, 07/05/22 16:20:00 EDT, [facility], 30, SPRAY 1 SPRAY INTO EACH NOSTRIL [...] Ordered FREESTYLE LANCETS MIS Miscellaneous FREESTYLE LANCETS [facility] Miscellaneous, See Instructions, # 100 Unknown, 5 [...] tablet, 4 Refills, Maintenance, 03/11/23 15:50:00 EST, [facility], 157.5, cm, 02/19/23 9:20:00 EST, Height Start [...] tablet, 5 Refills, Maintenance, 04/25/23 15:25:00 EST, [facility], 157, cm, 04/17/23 7:57:00 EST, Height, 88.3, [...] tablet, 0 Refills, Maintenance, 06/01/23 10:27:00 EST, [facility]/pharmacy #[id number], Partial fill upon patient request if the prescription is for a schedule II opioid drug., 157, cm, 05/06/23 14:23:00 EST, Height, 88.3,... Start Date: 06/01/23 Status: Ordered lidocaine 5% topical ointment See Instructions, APPLY TO AFFECTED AREA 3 TIMES A DAY, # 35.44 Gm, 11 Refills, Maintenance, 02/28/22 8:51:00 EST, [facility]/pharmacy #4471, 30, APPLY TO AFFECTED AREA 3 TIMES A DAY, 157.5, cm, 02/21/22 14:36:00 EST, Height Start Date: 02/28/22 Status: Ordered lidocaine 5% topical ointment See Instructions, APPLY TO AFFECTED AREA 3 TIMES A DAY, # 35.44 Gm, 11 Refills, Maintenance, 07/03/22 18:22:00 EDT, [facility]/pharmacy #[id number], 30, Duplicate Rx. Original sent 07/03/22 with routing error. Re-sending to pharmacy, APPLY TO AFFECTED AREA 3 TIMES A... Start Date: 07/03/22 Status: Ordered losartan 50 mg oral tablet See Instructions, TAKE 1 TABLET BY MOUTH EVERY DAY, # 90 tablet, 1 Refills, Maintenance, 03/11/23 15:50:00 EST, [facility], 157.5, cm, 02/19/23 9:20:00 EST, Height Start Date: 03/11/23 Status: Ordered Lyrica 25 mg oral capsule See Instructions, 1 capsule By Mouth 1 time daily at bedtime. E11.9, # 30 each, 5 Refills, Maintenance, 01/21/23 15:40:00 EDT, Capsule, [facility]/pharmacy #[id number], Partial fill upon patient request if the prescription is for a schedule II opioid drug., 157.5,... Start Date: 01/21/23 Status: Ordered mirtazapine 15 mg oral tablet 1 tablet = 15 mg, By Mouth, Daily at bedtime, # 30 tablet, 4 Refills, Maintenance, 12/06/22 13:07:00 EDT, Tablet, [facility]/pharmacy #[id number], Partial fill upon patient request if the prescription is for a schedule II opioid drug., 157.5, cm, 11/26/22 14:11:00... Start Date: 12/06/22 Stop Date: 05/05/23 Status: Ordered Narcan 4 mg/0.1 mL nasal spray = 4 mg, Nares, Both, Once, # 2 each, 2 Refills, Soft Stop, 02/22/23 14:30:00 EST, [facility]/pharmacy #[id number], Partial fill upon patient request if the prescription is for a schedule II opioid drug., 157.5, cm, 02/19/23 9:20:00 EST, Height Start Date: 02/22/23 Status: Ordered [place]-3 Fish Oil 1000 mg oral capsule 1 capsule = 1,000 mg, By Mouth, Daily, # 90 capsule, 1 Refills, Maintenance, 08/01/22 10:17:00 EDT,[facility]/pharmacy #[id number], Partial fill upon patient request if the prescription is for a schedule II opioid drug., 157.5, cm, 08/01/22 9:27:00 EDT, Height Start Date: 08/01/22 Status: Ordered omeprazole 20 mg oral delayed release tablet 1 tablet = 20 mg, By Mouth, 2 times a day, do not crush or chew, # 60 tablet, 2 Refills, Maintenance, 06/14/22 16:40:00 EDT, EC Tablet, [facility]/pharmacy #[id number], Partial fill upon patient request if the prescription is for a schedule II opioid drug., 157.5,... Start Date: 06/14/22 Status: Ordered oxyCODONE 10 mg oral tablet TAKE 1/2 TAB EVERY 12 HOURS NEEDED FOR SEVERE NECK/LOW BACK PAIN. DO NOT FILL UNTIL 05/01/21 Start Date: 06/02/21 Status: Ordered Pen [place], 31 G x 8 mm BD Ultra [...] 12/06/22 13:08:00 EDT, Route to Pharmacy Electronically, [facility]/pharmacy #[id number], Partial fill upon patient request if the prescription is for a schedule II opi... Start Date: 12/06/22 Stop Date: 05/05/23 Status: Ordered knitting machine tender grabber tool knitting machine tender grabber tool, See Instructions, # 1 each, Refills 0, Tot. Refills 0, Maintenance, please dispense one knitting machine tender grabber tool, ICD 10 M54.6, length of use 1 month, 04/12/22 10:13:00 EST, Supply Start Date: 04/12/22 Status: Ordered replacement hospital bed with mattress replacement hospital bed with mattress, See Instructions, # 1 each, Refills 0, Tot. Refills 0, Maintenance, please dispense [address] [facility] mattress, DX G89.4, length of use lifetime, 06/20/22 14:20:00 EDT, Supply Start Date: 06/20/22 Status: Ordered topiramate 25 mg oral tablet 3 tablet, By Mouth, Daily at bedtime, # 90 tablet, 10 Refills, Maintenance, 01/17/23 8:54:00 EDT, [facility], 157.5, cm, 12/28/22 15:12:00 EDT, Height Start Date: 01/17/23 Status: Ordered Trulicity Pen 4.5 mg/0.5 mL subcutaneous solution See Instructions, INJECT 4.5 MG SUBCUTANEOUSLY ONCE A WEEK, # 2 mL, 5 Refills, Maintenance, 11/21/22 8:33:00 EDT, [facility], 157.5, cm, 11/16/22 13:50:00 EDT, Height Start Date: 11/21/22 Status: Ordered valACYclovir 500 mg oral tablet 1, tablet, By Mouth, 2 times a day, PRN, # 6 tablet, Refills 0, Maintenance, NEEDED FOR OUTBREAKS, 05/22/23 12:07:00 EST, Route to Pharmacy Electronically, [facility], 157, cm, 05/06/23 14:23:00 EST, Height, 88.3, kg, 04/16/23 11:33:00 EST, . Start Date: 05/22/23 Status: Ordered Valium 5 mg oral tablet 5 mg, 1, tablet, By Mouth, 2 times a day, for 30 days, # 60 tablet, Refills 0, Tot. Refills 0, Acute 06/26/23 15:38:00 EDT, 05/27/23 15:38:00 EST, Route to Pharmacy Electronically, [facility]/pharmacy #[id number], Partial fill upon patient request if the prescript... 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 No wall motion abnormalities, Does [...] Team Personnel Name: Sergo Bazzi MD Position: [facility] Physician - Primary Care Member Role: PCP Address: Address: [address] [place] [address] [place] [address]- Name: Lizbeth Collins [place] Position: [facility] RN Member Role: Primary Care Nurse Care Team Related Persons Name: LB HENLEY Address: home [address] [address] Name: LB HENLEY Address: home [address] [place] [address] Name: MILENA CUBA Address: home [address] [place] [address]
--- OUTSIDE RECORDS SUMMARY | 2024-01-23 14:33 | XMS_ITS | Continuity of Care Document ---
Author Organization [facility] y Address [address] [place] [address]- Care Team Providers Care Rn Charge Name Role Phone Rose Mary FISCHER, Sergo Cole Primary Care Physician Encounter [facility] Date(s): 03/02/22 - 04/01/22 [facility] [address] [place], [place] [address] Attending Physician: Broderick Washburn Admitting Physician: AdmBroderick [...] Comment: [01/22/2017] [facility] [id number] 2Admin Note: vis given dated 10/24/12 3Admin Note: vis given dated 10/01/11 4Admin Note: vis 5Admin Note: vis 6Admin Note: vis given: 10/27/2006 7Admin Note: vis given : 10/10/2005 8Admin Note: vis given 2007- Medications acetaminophen 500 mg oral tablet 2 tablet, By Mouth, 4 times a day, PRN NEEDED FOR PAIN, # 100 tablet, 1 Refills, Acute, 219:52:00 EDT, [facility], 157.48, cm, 10/11/20 9:39:00 EDT, Height Start Date: 10/26/20 Status: Ordered albuterol CFC free 90 mcg/inh inhalation aerosol 1, puffs, Inhalation, 4 times a day, PRN, # 8.5 Gm, Refills 0, Tot. Refills 0, Maintenance, 02/21/22 15:04:00 EST, Aerosol, Route to Pharmacy Electronically, [id number], [facility]/pharmacy #[id number], 157.5, cm, 02/21/22 14:36:00 EST, H... Start Date: 02/21/22 Status: Ordered Alcohol Pads See Instructions, # 200 each, Refills 11, Tot. Refills 11, Maintenance, To cleans before injections5 x a day., 03/03/21 9:18:00 EST, E11.65, Compound, 157.48, cm, 03/01/21 15:54:00 EST, Height Start Date: 03/03/21 Stop Date: 02/26/22 Status: Ordered Eurbo-Awpvnd-Xjqo 300 mg oral capsule 1 capsule, By Mouth, 2 times a day, NOT COVERED., # 60 capsule, 11 Refills, [facility], 157.48, cm, 01/27/21 9:30:00 EDT, Height Start Date: 01/30/21 Status: Ordered ammonium lactate 12% topical cream 1 application, Topically, 2 times a day, # 385 Gm, 5 Refills, Maintenance, 09/08/21 9:35:00 EDT, Cream, [facility]/pharmacy #[id number], Partial fill upon patient request if the prescription is for a schedule II opioid drug., 1 application Topically 2 times a day,... Start Date: 09/08/21 Stop Date: 03/07/22 Status: Ordered atorvastatin 80 mg oral tablet 1 tablet = 80 mg, By Mouth, Daily, replaces Simvastatin, # 90 tablet, 4 Refills, Maintenance, 08/26/22 14:22:00 EDT, Tablet, [facility]/pharmacy #[id number], replaces simvastatin, 157.5, cm, 11/29/21 15:59:00 EDT, Height Start Date: 08/26/22 Stop Date: 11/19/23 Status: Ordered capsaicin 0.075% topical cream See Instructions, APPLY TO AFFECTED AREA TWICE A DAY, # 57 Gm, 4 Refills, Maintenance, 03/05/22 13:29:00 EST, [facility], 30, APPLY TO AFFECTED AREA TWICE A [...] Refills, Maintenance, 08/19/20 16:26:00 EDT, [facility], 30, TAKE 1 TABLET BY MOUTH DAILY. [...] Gm, 6 Refills, Maintenance, 03/19/22 9:28:00 EST, [facility]87, 30, APPLY TOPICALLY 4 TIMES A DAY NOT TO EXCEED 16 GRAMS/DAY/SINGLE... Start Date: 03/19/22 Status: Ordered docusate sodium 100 mg oral capsule 100 mg, 1, capsule, By Mouth, 2 times a day, PRN, # 60 capsule, Refills 5, Tot. Refills 5, Maintenance, as needed for constipation, 11/10/21 9:17:00 EDT, Route to Pharmacy Electronically, [facility]/pharmacy #[id number], Partial fill upon patient [...] each, 0 Refills, Maintenance, 03/22/22 16:35:00 EST, [facility] [address], 30, INHALE 1 PUFF BY MOUTH TWICE A DAY, 157.5, cm, 03/22/22 13:25:00 EST, Height Start Date: 03/22/22 Status: Ordered fluticasone 50 mcg/inh nasal spray See Instructions, USE 1 SPRAY IN EACH NOSTRIL EVERY DAY, # 16 mL, 5 Refills, 12/29/21 15:10:00 EDT,[facility]/pharmacy #[id number], USE 1 SPRAY IN [...] 15:43:00 EST, [facility], Partial fill upon patie... Start Date: 03/22/22 Status: Ordered Lantus Solostar Pen 100 units/mL subcutaneous solution See Instructions, Decreased to 60U once a day as of 12/29/19, # 30 mL, 9 Refills, Maintenance, 09/20/20 15:10:00 EDT, [facility], NEEDS 30 ML FOR 30 DAY SUPPLY E11.9, 157.48, cm, 05/31/20 9:41:00 EST, Height Start Date: 09/20/20 Status: Ordered Lantus Solostar Pen 100 units/mL subcutaneous solution See Instructions, Take 80 units via Subcutaneous Infusion Daily at bedtime. E11.9., # 30 mL, 9 Refills, Maintenance, 03/22/22 15:41:00 EST, [facility], Partial fill upon patient request if the prescription is for a schedule II opioid... Start Date: 03/22/22 Status: Ordered lidocaine 5% topical ointment See Instructions, APPLY TO AFFECTED AREA 3 TIMES A DAY, # 35.44 Gm, 11 Refills, Maintenance, 02/28/22 8:51:00 EST, [facility]/pharmacy #4471, 30, APPLY TO AFFECTED AREA 3 TIMES A DAY, 157.5, cm, 02/21/22 14:36:00 EST, Height Start Date: 02/28/22 Status: Ordered losartan 50 mg oral tablet 1 tablet, By Mouth, Daily, # 30 tablet, 5 Refills, 12/08/21 16:06:00 EDT, [facility]/pharmacy #[id number], 157.5, cm, 11/29/21 15:59:00 EDT, Height Start Date: 12/08/21 Status: Ordered Lyrica 25 mg oral capsule See Instructions, 1 capsule By Mouth 1 time daily at bedtime. E11.9, # 30 each, 5 Refills, Maintenance, 09/18/21 12:21:00 EDT, Capsule, [facility]/pharmacy #[id number], Partial fill upon patient [...] Refills, Maintenance, 03/30/22 10:50:00 EST, EC Tablet, [facility]/pharmacy #[id number], Partial fill upon patient request if the prescription is for a schedule II opioid drug., 157.5,... Start Date: 03/30/22 Status: Ordered oxyCODONE 10 mg oral tablet TAKE 1/2 TAB EVERY 12 HOURS NEEDED FOR SEVERE NECK/LOW BACK PAIN. DO NOT FILL UNTIL 05/01/21 Start Date: 06/02/21 Status: Ordered Pen [place], 31 G x 8 mm BD Ultra [...] 11:08:00 EST, 01/09/22 11:08:00 EDT, Chew Tablet, [facility]/pharmacy #[id number], Partial fill upon patient [...] Stop 09/16/22 11:02:00 EDT, 01/19/22 11:02:00 EDT, [facility]/pharmacy #[id number], 157.5, cm, 01/09/22 10:18:00 EDT, Height Start Date: 01/19/22 Stop Date: 09/16/22 Status: Ordered Topamax 25 mg oral tablet 3 tablet = 75 mg, By Mouth, Daily at bedtime, # 90 tablet, 6 Refills, Maintenance, 01/19/22 10:34:00 EDT, Tablet, [facility]/pharmacy #[id number], 157.5, cm, 01/09/22 10:18:00 EDT, Height Start Date: 01/19/22 Stop Date: 08/17/22 Status: Ordered Trulicity Pen 3 mg/0.5 mL subcutaneous solution See Instructions, INJECT 0.5ML SUBCUTANEOUSLY EVERY WEEK, ROTATE INJECTION SITES, # 2 mL, 5 Refills, 01/23/22 16:33:00 EDT, [facility], 157.5, cm, 01/20/22 13:38:00 EDT, Height Start Date: 01/23/22 Status: Ordered Trulicity Pen 4.5 mg/0.5 mL subcutaneous solution See Instructions, 4.5 mg Subcutaneous Infusion weekly. E11.9, # 4 each, 5 Refills, Maintenance, 03/22/22 15:41:00 EST, [facility], Partial fill upon patient request if the prescription is for a schedule II opioid drug., 157.5, cm, /... 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 No wall motion abnormalities, Does [...] Name: Rose Mary FISCHER, Sergo Cole Position: [facility] Primary Care Physician Member Role: PCP Address: Address: [address] [facility] [place] [address]- Care Team Related Persons Name: LB HENLEY Address: home [address] [address] Name: LB HENLEY Address: home [address] [place] [address] Name: MILENA CUBA Address: home [address] [facility] [address] [address] [address] [place] [address]
--- OUTSIDE RECORDS SUMMARY | 2024-01-23 14:33 | XMS_ITS | Continuity of Care Document ---
Author Organization [facility] Address [address] [place] [address]- Care Team Providers Care Chip Mixing Machine Operator Name Role Phone Rose Mary FISCHER, Sergo Cole Primary Care Physician Encounter [facility] Date(s): 03/04/20 - 04/03/20 [facility] [address] [place], [place] [address] Attending Physician: Admtr, Ar8 Admitting Physician: [...] (oldterm) 8 01/21/08 Given 1Result Comment: [01/22/2017] [facility] [id number] 2Admin Note: vis given dated 10/24/12 3Admin [...] mL, 5 Refills, Maintenance, 09/02/19 13:54:00 EDT, [facility], E11.9, 157.48, cm, [...] tablet, 3 Refills, Maintenance, 02/01/20 15:26:00 EST, [facility]/pharmacy #[id number], 157.48, cm, 01/25/20 15:23:00 EDT, Height [...] tablet, 5 Refills, Maintenance, 12/21/19 17:01:00 EDT, [facility]/pharmacy#4471, 157.48, cm, 04/27/19 15:43:00 EST, Height Start Date: 12/21/19 Status: Ordered atorvastatin 80 mg oral tablet 1 tablet = 80 mg, By Mouth, Daily, replaces Simvastatin, # 90 tablet, 4 Refills, Maintenance, 02/23/20 11:05:00 EST, Tablet, [facility]/pharmacy #[id number], replaces simvastatin, 157.48, cm, 01/25/20 15:23:00 EDT, Height Start Date: 02/23/20 Stop Date: 05/18/21 Status: Ordered atorvastatin 80 mg oral tablet 1 tablet = 80 mg, By Mouth, Daily, for 90 days, replaces Simvastatin, # 90 tablet, 4 Refills, Hard Stop 04/01/21 14:01:00 EST, 01/07/20 14:01:00 EDT, Tablet, [facility]/pharmacy #[id number], replaces simvastatin,157.48, cm, 12/29/19 15:55:00 EDT, Height Start Date: 01/07/20 Stop Date: 04/01/21 Status: Ordered BD ultra fine III pen needles [id number] BD ultra fine III pen needles [id number], See Instructions, # 360 each, Refills 3, [...] 60 Gm, 4 Refills, Acute, [facility], 30, APPLY TO AFFECTED AREA TWICE A [...] 6 Refills, Maintenance, 12/24/19 9:18:00 EDT, Gel, [facility]/pharmacy #[id number], 157.48, cm, 04/27/19 15:43:00 EST, Height [...] 5 Refills, Maintenance, 01/07/20 14:00:00 EDT, Tablet, [facility]/pharmacy #4471, 157.48, cm, 12/29/19 15:55:00 EDT, Height [...] Gm, 1 Refills, Maintenance, 12/10/19 12:46:00 EDT, [facility]/pharmacy #[id number], 1 sprays Nares, Both Daily,x30 days,Instr:in [...] 3, Maintenance, use up to check blood [id number] per day. 90 DAY SUPPLY, E11.9, 02/29/20 [...] mL, 11 Refills, Maintenance, 09/02/19 13:55:00 EDT, [facility], NEEDS 30 ML [...] 11 Refills, Maintenance, 05/15/19 15:00:00 EST, Ointment, [facility]/pharmacy #[id number], 1 application Topically 3 times a day,x30 days, 157.48, cm, 04/27/19 15:43:00 EST, Height Start Date: 05/15/19 Stop Date: 05/09/20 Status: Ordered losartan 50 mg oral tablet 50 mg, 1, tablet, By Mouth, Daily, can substitute 25mg tabs x2 if needed, # 30 tablet, Refills 5, Tot. Refills 5, Maintenance, 01/11/20 11:21:00 EDT, Route to Pharmacy Electronically, [facility]/pharmacy #[id number], 157.48, cm, 12/29/19 15:55:00 EDT, Height Start Date: 01/11/20 Stop Date: 07/09/20 Status: Ordered mirtazapine 15 mg oral tablet TAKE 1 TABLET BY MOUTH EVERY DAY IN THE EVENING Start Date: 10/14/18 Status: Ordered multivitamin Multiple Vitamins oral tablet 1 tablet, By Mouth, Daily, Take it 2 hours separate from Orlistat ([place]), # 90 tablet, 4 Refills, Maintenance, 08/14/19 8:49:00 EDT, Tablet, [facility]/pharmacy #[id number], 1 tablet By Mouth Daily,x90 days,Instr:Take it 2 hours separate from Orlistat ([place]), 157.... Start Date: 08/14/19 Stop Date: 11/06/20 Status: Ordered oxyCODONE 5 mg oral tablet 5 mg, 1, tablet, By Mouth, Every 12 hours, PRN, Refills 0, Tot. Refills 0, Maintenance, as needed for pain, 02/16/19 14:51:00 EST, Partial fill upon patient request Start Date: 02/16/19 Status: Ordered Pen [place], 31 G x 8 mm BD Ultra [...] 04/23/20 11:05:00 EST, 02/23/20 11:05:00 EST, Tablet, [facility]/pharmacy #[id number], 157.48, cm, 01/25/20... Start Date: 02/23/20 [...] 12/08/21 15:26:00 EDT, 12/13/20 15:26:00 EDT, Solution, [facility], E11.65, 157.48, cm, 04/27/19 15:43:00 EST, Height Start Date: 12/13/20 Stop Date: 12/08/21 Status: Ordered Trulicity Pen 1.5 mg/0.5 mL subcutaneous solution 0.5 mL = 1.5 mg, Subcutaneous Injection, Every Saturday, E11.9, # 7.5 mL, 3 Refills, Maintenance, 12/08/21 15:26:00 EDT, Solution, [facility], E11.65, 157.48, cm, 03/04/20 14:14:00 EST, Height Start Date: 12/08/21 Stop Date: 12/03/22 Status: Ordered Trulicity Pen 1.5 mg/0.5 mL subcutaneous solution 0.5 mL = 1.5 mg, Subcutaneous Injection, Every Saturday, for 90 days, # 6.5 mL, 5 Refills, Hard Stop 12/13/20 15:26:00 EDT, 06/22/19 15:26:00 EDT, Solution, [facility]/pharmacy #[id number], E11.65, 157.48, cm, 04/27/19 15:43:00 EST, [...] fo r HSV(Confirmed) 5 02/20/10 Active *Briana Graces, Care Coor dinator, ICP [phone](Confirmed) Active Reflux(Confirmed) Active 00841 -EF 60-65%. No wall motion abnormalities, Does [...]
--- OUTSIDE RECORDS SUMMARY | 2024-01-23 14:33 | XMS_ITS | Continuity of Care Document ---
Author Organization [facility] Address [address] [place] [address]- Care Team Providers Care Reinsurance Clerk Name Role Phone Rose Mary FISCHER, Sergo Cole Primary Care Physician [phone] Encounter [facility] [id number] Date(s): 05/20/23 - 07/24/23 [facility] [address] [place], [place] [phone] Attending Physician: Fausto Ritter MD Admitting Physician: Stone FISCHER, Fausto Lester Allergies, Adverse Reactions, Alerts Substance Reaction Severity [...] Given 1Result Comment: [01/22/2017] [facility] [id number] 2Admin Note: vis given dated 10/24/12 3Admin [...] 100 tablet, 1 Refills, Acute, 219:52:00 EDT, [facility], 157.48, cm, 10/11/20 9:39:00 EDT, Height Start [...] Date: 03/03/21 Stop Date: 02/26/22 Status: Ordered Jweoy-Zqbccs-Fmjj 300 mg oral capsule 1 capsule, By Mouth, 2 times a day, NOT COVERED., # 60 capsule, 11 Refills, [facility] 46419, 157.48, cm, 01/27/21 9:30:00 EDT, Height Start Date: 01/30/21 Status: Ordered ammonium lactate 12% topical cream 1 application, Topically, 2 times a day, # 385 Gm, 1 Refills, Maintenance, 12/22/22 14:16:00 EDT, Cream, [facility]/pharmacy #[id number], Partial fill upon patient request if the prescription is for a schedule IIopioid drug., 1 application Topically 2 times a day... Start Date: 12/22/22 Stop Date: 02/20/23 Status: Ordered atorvastatin 80 mg oral tablet 1 tablet, By Mouth, Daily, INSTR:REPLACES SIMVASTATIN, # 90 tablet, 1 Refills, Maintenance, 05/22/23 12:07:00 EST, [facility], 157, cm, 05/06/23 14:23:00 EST, Height, 88.3, kg, 04/16/23 11:33:00EST, Dry Weight Start Date: 05/22/23 Status: Ordered BD Single Use Swab 70% topical pad See Instructions, TO CLEANS BEFORE INJECTIONS 5 X A DAY., # 150 Unknown, 11 Refills, Maintenance, 08/16/22 10:15:00 EDT, [facility], 30, TO CLEANS BEFORE INJECTIONS 5 X A DAY., 157.5, cm, 08/01/22 9:27:00 EDT, Height Start Date: 08/16/22 Status: Ordered busPIRone 5 mg oral tablet 5 mg, 1, tablet, By Mouth, 3 times a day, # 90 tablet, Refills 4, Tot. Refills 4, Maintenance, 09/27/23 7:27:00 EDT, Route to Pharmacy Electronically, [facility]/pharmacy #[id number], Partial fill upon patient request if the prescription is for a schedule II opioi... Start Date: 09/27/23 Stop Date: 02/24/24 Status: Ordered busPIRone 5 mg oral tablet 5 mg, 1, tablet, By Mouth, 2 times a day, for 30 days, # 60 tablet, Refills 4, Tot. Refills 4, HardStop 09/27/23 7:27:00 EDT, 04/30/23 7:27:00 EST, Route to Pharmacy Electronically, [facility]/pharmacy #[id number], Partial fill upon patient request if the prescri... Start Date: 04/30/23 Stop Date: 09/27/23 Status: Ordered capsaicin 0.075% topical cream See Instructions, APPLY TO AFFECTED AREA TWICE A DAY, # 57 Gm, 4 Refills, Maintenance, 04/11/23 10:18:00 EST, [facility], 30, APPLY TO AFFECTED AREA TWICE A [...] Refills, Maintenance, 07/02/23 18:31:00 EDT, [facility], 90, TAKE 1 TABLET BY MOUTH DAILY [...] 08/31/23 16:26:00 EDT, Route to Pharmacy Electronically, [facility]/pharmacy #[id number], Partial fill... Start Date: 08/31/23 Stop Date: 01/28/24 Status: Ordered diazepam 5 mg oral tablet 5 mg, 1, tablet, By Mouth, 2 times a day, for 30 days, TAKE 1 TABLET BY MOUTH TWICE A DAY., # 60 tablet, Refills 1, Tot. Refills 1, Acute 08/31/23 16:26:00 EDT, 07/02/23 16:26:00 EDT, Route to Pharmacy Electronically, [facility]/pharmacy #[id number], Partial fill... Start Date: 07/02/23 Stop Date: 08/31/23 Status: Ordered diclofenac 1% topical gel See Instructions, APPLY TOPICALLY 4 TIMES A DAY NOT TO EXCEED 16 GRAMS/DAY/SINGLE JOINT OF LOWER EXTREMITIES, # 100 Gm, 1 Refills, Maintenance, 12/14/22 6:14:00 EDT, [facility]/pharmacy #[id number], 30, APPLY TOPICALLY 4 TIMES [...] capsule, 5 Refills, Maintenance, 07/03/22 18:20:00 EDT, [facility]/pharmacy #[id number], Duplicate Rx. Original sent 07/03/22 with routing error. Re- sending to pharmacy, 157.5, cm... Start Date: 07/03/22 Status: Ordered esomeprazole 40 mg oral enteric coated capsule 1 capsule = 40 mg, By Mouth, Daily, # 90 capsule, 1 Refills, Maintenance, 03/07/23 13:32:00 EST, [facility]/pharmacy #[id number], Partial fill upon patient request [...] each, 0 Refills, Maintenance, 09/20/22 9:36:00 EDT, [facility], 30, INHALE 1 PUFF BY MOUTH TWICE A DAY, 157.5, cm, 09/05/22 16:22:00 EDT, Height Start Date: 09/20/22 Status: Ordered fluticasone 50 mcg/inh nasal spray See Instructions, SPRAY 1 SPRAY INTO EACH NOSTRIL EVERY DAY, # 16 mL, 5 Refills, Maintenance, 07/05/22 16:20:00 EDT, [facility], 30, SPRAY 1 SPRAY INTO EACH NOSTRIL [...] tablet, 4 Refills, Maintenance, 03/11/23 15:50:00 EST, [facility], 157.5, cm, 02/19/23 9:20:00 EST, Height Start [...] mL, 6 Refills, Maintenance, 07/24/23 13:20:00 EDT, [facility], Partial fill upon patient request if the prescription is for a schedule II opioid drug., 157, cm, 07/24/23 12:52:00... Start Date: 07/24/23 Status: Ordered hydrOXYzine hydrochloride 25 mg oral tablet 1 tablet = 25 mg, By Mouth, 2 times a day, as needed for anxiety, # 60 tablet, 4 Refills, Soft Stop, 07/10/23 11:33:00 EDT, Tablet, [facility]/pharmacy #[id number], Partial fill upon patient request if the prescription is for a schedule II opioid drug., 157, cm, 0... Start Date: 07/10/23 Stop Date: 12/07/23 Status: Ordered lactase 3000 u oral tablet 3 tablet, By Mouth, 3 times a day with meals, X30 DAYS., # 120 tablet, 5 Refills, Maintenance, 04/25/23 15:25:00 EST, [facility] 38854, 157, cm, 04/17/23 7:57:00 EST, Height, 88.3, kg, 04/16/23 11:33:00 EST, Dry Weight Start Date: 04/25/23 Status: Ordered Lantus Solostar Pen 100 units/mL subcutaneous solution See Instructions, Take 45 units in the AM and 45 units daily at bedtime. E11.9., # 30 mL, 9 Refills, Maintenance, 07/24/23 13:18:00 EDT, [facility], Partial fill upon patient requestif the prescription is for a schedule II opioid lucas... Start Date: 07/24/23 Status: Ordered levothyroxine 0.112 mg oral tablet 1 tablet, By Mouth, Daily, # 30 tablet, 11 Refills, Maintenance, 06/25/23 14:09:00 EDT, [facility]/pharmacy #[id number], 157, cm, 06/24/23 14:54:00 EDT, Height, 88.3, kg, 04/16/23 11:33:00 EST, Dry Weight Start Date: 06/25/23 Status: Ordered lidocaine 5% topical ointment See Instructions, APPLY TO AFFECTED AREA 3 TIMES A DAY, # 35.44 Gm, 11 Refills, Maintenance, 02/28/22 8:51:00 EST, [facility]/pharmacy #4471, 30, APPLY TO AFFECTED AREA 3 TIMES A DAY, 157.5, cm, 02/21/22 14:36:00 EST, Height Start Date: 02/28/22 Status: Ordered lidocaine 5% topical ointment See Instructions, APPLY TO AFFECTED AREA 3 TIMES A DAY, # 35.44 Gm, 11 Refills, Maintenance, 07/03/22 18:22:00 EDT, [facility]/pharmacy #[id number], 30, Duplicate Rx. Original sent 07/03/22 with routing error. Re-sending to pharmacy, APPLY TO AFFECTED AREA 3 TIMES A... Start Date: 07/03/22 Status: Ordered losartan 50 mg oral tablet See Instructions, TAKE 1 TABLET BY MOUTH EVERY DAY, # 90 tablet, 1 Refills, Maintenance, 03/11/23 15:50:00 EST, [facility] 04300, 157.5, cm, 02/19/23 9:20:00 EST, Height Start Date: 03/11/23 Status: Ordered Lyrica 25 mg oral capsule See Instructions, 1 capsule By Mouth 1 time daily at bedtime. E11.9, # 30 each, 5 Refills, Maintenance, 01/21/23 15:40:00 EDT, Capsule, [facility]/pharmacy #[id number], Partial fill upon patient request if the prescription is for a schedule II opioid drug., 157.5,... Start Date: 01/21/23 Status: Ordered mirtazapine 15 mg oral tablet 1 tablet = 15 mg, By Mouth, Daily at bedtime, # 30 tablet, 4 Refills, Maintenance, 07/09/23 9:34:00EDT, Tablet, [facility]/pharmacy #[id number], Partial fill upon patient request if the prescription is for a schedule II opioid drug., 157, cm, 06/24/23 14:54:00 ED... Start Date: 07/09/23 Stop Date: 12/06/23 Status: Ordered Narcan 4 mg/0.1 mL nasal spray = 4 mg, Nares, Both, Once, # 2 each, 2 Refills, Soft Stop, 02/22/23 14:30:00 EST, [facility]/pharmacy #[id number], Partial fill upon patient request if the prescription is for a schedule II opioid drug., 157.5, cm, 02/19/23 9:20:00 EST, Height Start Date: 02/22/23 Status: Ordered Delphos-3 Fish Oil 1000 mg oral capsule 1 capsule = 1,000 mg, By Mouth, Daily, # 90 capsule, 1 Refills, Maintenance, 08/01/22 10:17:00 EDT,[facility]/pharmacy #[id number], Partial fill upon patient request if the prescription is for a schedule II opioid drug., 157.5, cm, 08/01/22 9:27:00 EDT, Height Start Date: 08/01/22 Status: Ordered omeprazole 20 mg oral delayed release tablet 1 tablet = 20 mg, By Mouth, 2 times a day, do not crush or chew, # 60 tablet, 2 Refills, Maintenance, 06/14/22 16:40:00 EDT, EC Tablet, [facility]/pharmacy #[id number], Partial fill upon patient request if the prescription is for a schedule II opioid drug., 157.5,... Start Date: 06/14/22 Status: Ordered ondansetron 4 mg oral tablet 1 tablet, By Mouth, Every 8 hours, PRN NEEDED FOR NAUSEA AND VOMITING FOR, # 30 tablet, 2 Refills, Maintenance, 07/03/23 14:40:00 EDT, [facility] 24083, 157, cm, 06/24/23 14:54:00 EDT, Height, 88.3, kg, 04/16/23 11:33:00 EST, Dry Weight Start Date: 07/03/23 Stop Date: 07/13/23 Status: Ordered oxyCODONE 10 mg oral tablet TAKE 1/2 TAB EVERY 12 HOURS NEEDED FOR SEVERE NECK/LOW BACK PAIN. DO NOT FILL UNTIL 05/01/21 Start Date: 06/02/21 Status: Ordered Pen Dexter, 31 G x 8 mm BD Ultra [...] 07/09/23 9:37:00 EDT, Route to Pharmacy Electronically, [facility]/pharmacy #[id number], Partial fill upon patient request if the prescription is for a schedule II opio... Start Date: 07/09/23 Stop Date: 12/06/23 Status: Ordered nursing unit coordinator grabber tool nursing unit coordinator grabber tool, See Instructions, # 1 each, Refills 0, Tot. Refills 0, Maintenance, please dispense one nursing unit coordinator grabber tool, ICD 10 M54.6, length of use 1 month, 04/12/22 10:13:00 EST, Supply Start Date: 04/12/22 Status: Ordered replacement hospital bed with mattress replacement hospital bed with mattress, See Instructions, # 1 each, Refills 0, Tot. Refills 0, Maintenance, please dispense 1 replacement hospital bed [facility] mattress, DX G89.4, length of use lifetime, 06/20/22 14:20:00 EDT, Supply Start Date: 06/20/22 Status: Ordered topiramate 25 mg oral tablet 3 tablet, By Mouth, Daily at bedtime, # 90 tablet, 10 Refills, Maintenance, 01/17/23 8:54:00 EDT, [facility], 157.5, cm, 12/28/22 15:12:00 EDT, Height Start Date: 01/17/23 Status: Ordered Trulicity Pen 4.5 mg/0.5 mL subcutaneous solution See Instructions, INJECT 4.5 MG SUBCUTANEOUSLY ONCE A WEEK, # 2 mL, 10 Refills, Maintenance, 06/10/23 12:32:00 EDT, [facility], 157, cm, 05/06/23 14:23:00 EST, Height, 88.3, kg, 04/16/23 11:33:00 EST, Dry Weight Start Date: 06/10/23 Status: Ordered valACYclovir 500 mg oral tablet 1, tablet, By Mouth, 2 times a day, PRN, # 6 tablet, Refills 0, Maintenance, NEEDED FOR OUTBREAKS, 05/22/23 12:07:00 EST, Route to Pharmacy Electronically, [facility], 157, cm, 05/06/23 14:23:00 EST, Height, 88.3, kg, 04/16/23 11:33:00 EST, . Start Date: 05/22/23 Status: Ordered Vascepa 1 g oral capsule 2 capsule = 2 Gm, By Mouth, 2 times a day, # 360 capsule, 5 Refills, Maintenance, 05/03/20 15:59:00EST, Capsule, [facility]/pharmacy #[id number], 157.48, cm, 03/04/20 14:14:00 EST, Height Start Date: 05/03/20 Status: Ordered Ventolin HFA 108 mcg/inh inhalation aerosol with adapter 1 puffs, Inhalation, 4 times a day, PRN NEEDED FOR WHEEZING, # 18 each, 0 Refills, Maintenance, 09/17/22 15:25:00 EDT, [facility], 157.5, cm, 09/05/22 16:22:00 EDT, Height Start [...] 5 Confirmed 02/20/10 Active *Briana Garces, Sheet Taker, ICP [phone] Confirmed Active PTSD (post-traumatic stress disorder) Confirmed [...] FISCHER, Sergo Cole Position: [facility] Physician - Primary Care Member Role: PCP Address: Address: [address] [facility] [place] [address]- Name: Lizbeth Collins [place] Position: [facility] RN Member Role: Primary Care Nurse Care Team Related Persons Name: LB HENLEY Address: home [address] [place] [address] Name: LB HENLEY Address: home [address] [address] Name: MILENA CUBA Address: home [address] [place] [address]
--- OUTSIDE RECORDS SUMMARY | 2024-01-23 14:33 | XMS_ITS | Continuity of Care Document ---
Author Organization [facility] Address [address] [place] [address]- Care Team Providers Care Self Contained Behavior Unit Teacher Name Role Phone Sergo Bazzi MD Primary Care Physician Encounter [facility] Date(s): 03/07/22 - 04/06/22 [facility] [address] [place], [place] [address] Allergies, Adverse Reactions, Alerts Substance Reaction Severity Status morphine ITCH DIARRHEA Active trazodone DEPRESSION Active cortisone Active Motrin eat lining of stomach Active Naprosyn gi upset Active Neurontin mental status changes Active Vioxx heart problems Active Latex powder eats up skin Active CeleBREX gi upset Active Ultram nausea, [...] Given 1Result Comment: [01/22/2017] [facility] [id number] 2Admin Note: vis given dated 10/24/12 3Admin Note: vis given dated 10/01/11 4Admin Note: vis 5Admin Note: vis 6Admin Note: vis given: 10/27/2006 7Admin Note: vis given : 10/10/2005 8Admin Note: vis given 2007- Medications acetaminophen 500 mg oral tablet 2 tablet, By Mouth, 4 times a day, PRN NEEDED FOR PAIN, # 100 tablet, 1 Refills, Acute, 219:52:00 EDT, [facility] 32107, 157.48, cm, 10/11/20 9:39:00 EDT, Height Start Date: 10/26/20 Status: Ordered Alcohol Pads See Instructions, # 200 each, Refills 11, Tot. Refills 11, Maintenance, To cleans before injections5 x a day., 03/03/21 9:18:00 EST, E11.65, Compound, 157.48, cm, 03/01/21 15:54:00 EST, Height Start Date: 03/03/21 Stop Date: 02/26/22 Status: Ordered Yorcu-Cematu-Ddaa 300 mg oral capsule 1 capsule, By Mouth, 2 times a day, NOT COVERED., # 60 capsule, 11 Refills, [facility], 157.48, cm, 01/27/21 9:30:00 EDT, Height Start Date: 01/30/21 Status: Ordered ammonium lactate 12% topical cream 1 application, Topically, 2 times a day, # 385 Gm, 3 Refills, Maintenance, 04/05/22 13:30:00 EST, Cream, [facility]/pharmacy #[id number], Partial fill upon patient request if the prescription is for a schedule IIopioid drug., 1 application Topically 2 times a day... Start Date: 04/05/22 Stop Date: 08/03/22 Status: Ordered atorvastatin 80 mg oral tablet 1 tablet = 80 mg, By Mouth, Daily, replaces Simvastatin, # 90 tablet, 4 Refills, Maintenance, 08/26/22 14:22:00 EDT, Tablet, [facility]/pharmacy #[id number], replaces simvastatin, 157.5, cm, 11/29/21 15:59:00 EDT, Height Start Date: 08/26/22 Stop Date: 11/19/23 Status: Ordered capsaicin 0.075% topical cream See Instructions, APPLY TO AFFECTED AREA TWICE A DAY, # 57 Gm, 4 Refills, Maintenance, 03/05/22 13:29:00 EST, [facility], 30, APPLY TO AFFECTED AREA TWICE A [...] Refills, Maintenance, 08/19/20 16:26:00 EDT, [facility], 30, TAKE 1 TABLET BY MOUTH DAILY. [...] Gm, 6 Refills, Maintenance, 03/19/22 9:28:00 EST, [facility] 438[facility], 30, APPLY TOPICALLY 4 TIMES A DAY [...] 16:35:00 EST, [facility] 34828, 30, INHALE 1 PUFF BY MOUTH TWICE [...] mL, 3 Refills, Maintenance, 03/22/22 15:43:00 EST, [facility], Partial fill upon patie... Start Date: 03/22/22 Status: Ordered Lantus Solostar Pen 100 units/mL subcutaneous solution See Instructions, Decreased to 60U once a day as of 12/29/19, # 30 mL, 9 Refills, Maintenance, 09/20/20 15:10:00 EDT, [facility], NEEDS 30 ML FOR 30 DAY SUPPLY E11.9, 157.48, cm, 05/31/20 9:41:00 EST, Height Start Date: 09/20/20 Status: Ordered Lantus Solostar Pen 100 units/mL subcutaneous solution See Instructions, Take 80 units via Subcutaneous Infusion Daily at bedtime. E11.9., # 30 mL, 9 Refills, Maintenance, 03/22/22 15:41:00 EST, [facility], Partial fill upon patient [...] 5 Refills, Maintenance, 09/18/21 12:21:00 EDT, Capsule, [facility]/pharmacy #[id number], Partial fill [...] 05/01/21 Start Date: 06/02/21 Status: Ordered Pen [place], 31 G x 8 mm BD Ultra [...] 2 mL, 5 Refills, 01/23/22 16:33:00 EDT, [facility], 157.5, cm, 01/20/22 13:38:00 EDT, Height Start Date: 01/23/22 Status: Ordered Trulicity Pen 4.5 mg/0.5 mL subcutaneous solution See Instructions, 4.5 mg Subcutaneous Infusion weekly. E11.9, # 4 each, 5 Refills, Maintenance, 03/22/22 15:41:00 EST, [facility], Partial fill upon patient request if the prescription is for a schedule II opioid drug., 157.5, cm, 12/... Start Date: 03/22/22 Status: Ordered Vascepa 1 [...] Refills, Maintenance, 04/04/22 12:59:00 EST, [facility], 157.5, cm, 03/22/22 13:25:00 EST, Height Start [...] 5 Confirmed 02/20/10 Active *Briana Garces, Sheet Rock Hanger, ICP [phone] Confirmed Active Reflux Confirmed Active Severe obesity [...] Member Role: PCP Address: Address: [address] [facility] [place] [address]- Care Team Related Persons Name: LB HENLEY Address: [address] [place] [address] Name: LB HENLEY Address: home [address] [address] Name: MILENA CUBA Address: home [address] [place] [id number]
--- OUTSIDE RECORDS SUMMARY | 2024-01-23 14:33 | XMS_ITS | Continuity of Care Document ---
Author Organization [facility] Address [address] [place] [address]- Care Team Providers Care Air Compressor Operator Name Role Phone Rose Mary FISCHER, Sergo Cole Primary Care Physician Encounter [facility] Date(s): 06/23/19 - 07/03/19 [facility] [address] [place] [address]- [facility] Attending Physician: AdmBroderick enriquez Admitting Physician: Admtr ArItzel Referring Physician: Admtr, Ar8 Allergies, Adverse [...] Comment: [01/22/2017] [facility] [id number] 2Admin Note: vis given dated 10/24/12 3Admin [...] Refills, Maintenance, 05/05/19 11:32:00 EST, [facility], 157.48, cm, 04/27/19 15:43:00 EST, Height Start Date: 05/05/19 Status: Ordered atorvastatin 80 mg oral tablet 1 tablet = 80 mg, By Mouth, Daily, replaces Simvastatin, # 90 tablet, 1 Refills, Maintenance, 06/22/19 15:26:00 EDT, Tablet, [facility]/pharmacy #4471, replaces simvastatin, 157.48, cm, 04/27/19 15:43:00 EST, Height Start Date: 06/22/19 Stop Date: 12/19/19 Status: Ordered capsaicin 0.075% topical cream 1 application, Topically, 2 times a day, for 30 days, # 60 Gm, 4 Refills, Acute 10/26/19 10:54:00 EDT, 05/29/19 10:54:00 EST, Cream, [facility]/pharmacy #4471, 1 application Topically 2 times a [...] 6 Refills, Maintenance, 05/15/19 15:00:00 EST, Gel, [facility]/pharmacy #4471, 157.48, cm, 04/27/19 15:43:00 EST, Height [...] 0 Refills, Maintenance, 04/27/19 11:54:00 EST, Tablet, [facility]/pharmacy #4471, 157.48, cm, 03/09/19 15:46:00 EST, Height [...] DAY, # 16 mL, 1 Refills, Maintenance, [facility] 44704, 30, USE 1 SPRAY IN EACH NOSTRIL [...] 11 Refills, Maintenance, 05/15/19 15:00:00 EST, Ointment, [facility]/pharmacy #4471, 1 application Topically 3 times a [...] 06/22/19 15:26:00 EDT, Route to Pharmacy Electronically, [facility]/pharmacy #[id number], 157.48, cm, 04/27/19 15:43:00 EST, Height [...] request Start Date: 02/16/19 Status: Ordered Pen [place], 31 G x 8 mm BD Ultra [...] 5 Refills, Maintenance, 06/22/19 15:26:00 EDT, Solution, [facility]/pharmacy #4471, E11.65, 157.48, cm, 04/27/19 15:43:00 EST, [...] 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 No wall motion abnormalities, Does [...]
--- OUTSIDE RECORDS SUMMARY | 2024-01-23 14:33 | XMS_ITS | Continuity of Care Document ---
Author Organization [facility] Address [address] [place] [address]- Care Team Providers Care Supervisor Type Disk Quality Control Name Role Phone Sergo Bazzi MD Primary Care Physician Encounter [facility] Date(s): 11/30/21 - 01/13/22 [facility] [address] [place], [place] [address] Attending Physician: Kerry Hernandez MD Admitting Physician: [...] Given 1Result Comment: [01/22/2017] [facility] [id number] 2Admin Note: vis given dated 10/24/12 3Admin Note: vis given dated 10/01/11 4Admin Note: vis 5Admin Note: vis 6Admin Note: vis given: 10/27/2006 7Admin Note: vis given : 10/10/2005 8Admin Note: vis given 2007- Medications acetaminophen 500 mg oral tablet 2 tablet, By Mouth, 4 times a day, PRN NEEDED FOR PAIN, # 100 tablet, 1 Refills, Acute, 219:52:00 EDT, [facility] 548[facility], 157.48, cm, 10/11/20 9:39:00 EDT, Height Start Date: 10/26/20 Status: Ordered Alcohol Pads See Instructions, # 200 each, Refills 11, Tot. Refills 11, Maintenance, To cleans before injections5 x a day., 03/03/21 9:18:00 EST, E11.65, Compound, 157.48, cm, 03/01/21 15:54:00 EST, Height Start Date: 03/03/21 Stop Date: 02/26/22 Status: Ordered Hzohi-Emwrju-Ewfv 300 mg oral capsule 1 capsule, By Mouth, 2 times a day, NOT COVERED., # 60 capsule, 11 Refills, [facility]15, 157.48, cm, 01/27/21 9:30:00 EDT, Height Start Date: 01/30/21 Status: Ordered ammonium lactate 12% topical cream 1 application, Topically, 2 times a day, # 385 Gm, 5 Refills, Maintenance, 09/08/21 9:35:00 EDT, Cream, [facility]/pharmacy #2441, Partial fill upon patient request if the [...] tablet, 11 Refills, Maintenance, 08/19/20 16:26:00 EDT, [facility] 87592, 30, TAKE 1 TABLET BY MOUTH DAILY. [...] EDT, [id number] Partial fill upon patient request if [...] # 16 mL, 5 Refills, 12/29/21 15:10:00 EDT,[facility]/pharmacy #4471, USE 1 SPRAY IN EACH NOSTRIL EVERY DAY, 157.5, cm, 11/29/21 15:59:00 EDT, Height Start Date: 12/29/21 Status: Ordered Lantus Solostar Pen 100 units/mL subcutaneous solution See Instructions, Take 80 units via Subcutaneous Infusion Daily at bedtime. E11.9., # 30 mL, 9 Refills, Maintenance, 08/24/21 9:25:00 EDT, [facility], Partial fill upon patient request if the prescription is for a schedule II opioid d... Start Date: 08/24/21 Status: Ordered Lantus Solostar Pen 100 units/mL subcutaneous solution See Instructions, Decreased to 60U once a day as of 12/29/19, # 30 mL, 9 Refills, Maintenance, 09/20/20 15:10:00 EDT, [facility], NEEDS 30 ML FOR 30 DAY SUPPLY E11.9, 157.48, cm, 05/31/20 9:41:00 EST, Height Start Date: 09/20/20 Status: Ordered lidocaine 5% topical ointment See Instructions, APPLY TO AFFECTED AREA 3 TIMES A DAY, # 35.44 Gm, 11 Refills, [facility], 30, APPLY TO AFFECTED AREA 3 TIMES [...] mL, 5 Refills, 08/24/21 9:20:00 EDT, [facility], 157.48, cm, 08/24/21 8:03:00 [...] 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 *Briana Garces, Homeowner Association Manager, ICP [phone] Confirmed Active Reflux Confirmed Active Hepatic steatosis [...] Rose Mary FISCHER, Sergo Cole Address: Address: [address] [place] [address] Adult Medicine [address]
--- OUTSIDE RECORDS SUMMARY | 2024-01-23 14:34 | XMS_ITS | Continuity of Care Document ---
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 Name Role Phone Rose Mary FISCHER, Sergo Cole Primary Care Physician [phone] Encounter [facility] Date(s): 11/07/20 - 12/07/20 [facility] [address], [place] [address] Allergies, Adverse Reactions, Alerts Substance Reaction [...] (oldterm) 8 01/21/08 Given 1Result Comment: [01/22/2017] [facility] [id number] 2Admin Note: vis given dated 10/24/12 3Admin Note: vis given dated 10/01/11 4Admin Note: vis 5Admin Note: vis 6Admin Note: vis given: 10/27/2006 7Admin Note: vis given : 10/10/2005 8Admin Note: vis given 2007- Medications acetaminophen 500 mg oral tablet 2 tablet, By Mouth, 4 times a day, PRN NEEDED FOR PAIN, # 100 tablet, 1 Refills, Acute, 219:52:00 EDT, [facility], 157.48, cm, 10/11/20 9:39:00 EDT, Height Start Date: 10/26/20 Status: Ordered Acyclovir Maintenance, 11/13/18 15:06:54 EDT Start Date: 11/13/18 Status: Ordered Admelog SoloStar 100 units/mL injectable solution 10 - 25 units, Subcutaneous Infusion, 3 times a day with meals, Inject via sliding scale, Max Dailydose 75u, 90 day supply, E11.9, # 90 mL, 5 Refills, Maintenance, 09/02/19 13:54:00 EDT, [facility], E11.9, 157.48, cm, [...] 5 Refills, Maintenance, 06/20/20 10:55:00 EDT, Cream, [facility]/pharmacy #[id number], Partial fill upon patient [...] Refills, Maintenance, 06/21/20 17:44:00 EDT, [facility], 157.48, cm, 05/31/20 9:41:00 EST, Height Start Date: 06/21/20 Status: Ordered atorvastatin 80 mg oral tablet 1 tablet = 80 mg, By Mouth, Daily, replaces Simvastatin, # 90 tablet, 4 Refills, Maintenance, 02/23/20 11:05:00 EST, Tablet, [facility]/pharmacy #[id number], replaces simvastatin, 157.48, cm, 01/25/20 15:23:00 EDT, Height Start Date: 02/23/20 Stop Date: 05/18/21 Status: Ordered BD ultra fine III pen needles [id number] BD ultra fine III pen needles 30Kv9pi, See Instructions, # 360 each, Refills 3, [...] tablet, 11 Refills, Maintenance, 08/19/20 16:26:00 EDT, [facility] STORE 15340, 30, TAKE 1 TABLET BY MOUTH DAILY. [...] 6 Refills, Maintenance, 09/02/20 12:50:00 EDT, Gel, [facility]/pharmacy #[id number], 157.48, cm, 05/31/20 9:41:00 [...] 5 Refills, Maintenance, 01/07/20 14:00:00 EDT, Tablet, [facility]/pharmacy #[id number], 157.48, cm, 12/29/19 15:55:00 [...] Gm, 5 Refills, Maintenance, 06/27/20 15:14:00 EDT, [facility]/pharmacy #[id number], 1 sprays Nares, Both [...] 3, Maintenance, use up to check blood [id number] per day. 90 DAY SUPPLY, E11.9, 02/29/20 [...] mL, 2 Refills, Maintenance, 04/07/20 16:52:00 EST, [facility], Partial fill upon patient request [...] mL, 9 Refills, Maintenance, 09/20/20 15:10:00 EDT, [facility], NEEDS 30 ML [...] 0 Refills, Maintenance, 08/26/20 20:44:00 EDT, Film, [facility]/pharmacy #[id number], Partial fill upon patient request if the prescription is for a schedule II opioid drug., 1 patch Topically Daily, 157.48, cm, 05/31/20 9:41:0... Start Date: 08/26/20 Status: Ordered losartan 50 mg oral tablet 1 tablet, By Mouth, Daily, # 30 tablet, 5 Refills, Maintenance, 12/02/20 5:43:00 EDT, [facility]/pharmacy #[id number], 157.48, cm, 11/11/20 9:37:00 EDT, Height [...] request Start Date: 02/16/19 Status: Ordered Pen [place], 31 G x 8 mm BD Ultra [...] 0 Refills, Maintenance, 10/24/20 8:13:00 EDT, [facility], 157.48, cm, 10/11/20 9:39:00 EDT, Height Start Date: 10/24/20 Stop Date: 10/31/20 Status: Ordered Topamax 25 mg oral tablet 2 tablet = 50 mg, By Mouth, Daily at bedtime, # 60 tablet, 6 Refills, Maintenance, 04/21/20 13:35:00 EST, Tablet, [facility]/pharmacy #[id number], 157.48, cm, 03/04/20 14:14:00 EST, Height Start Date: 04/21/20 Stop Date: 11/17/20 Status: Ordered Trulicity Pen 1.5 mg/0.5 mL subcutaneous solution 0.5 mL = 1.5 mg, Subcutaneous Injection, Every Saturday, for 90 days, # 7.5 mL, 3 Refills, Hard Stop 12/08/21 15:26:00 EDT, 12/13/20 15:26:00 EDT, Solution, [facility], E11.65, 157.48, cm, 04/27/19 15:43:00 EST, Height Start Date: 12/13/20 Stop Date: 12/08/21 Status: Ordered Trulicity Pen 1.5 mg/0.5 mL subcutaneous solution 0.5 mL = 1.5 mg, Subcutaneous Injection, Every Saturday, E11.9, # 7.5 mL, 3 Refills, Maintenance, 12/08/21 15:26:00 EDT, Solution, [facility], E11.65, 157.48, cm, 03/04/20 14:14:00 EST, Height Start Date: 12/08/21 Stop Date: 12/03/22 Status: Ordered Trulicity Pen 1.5 mg/0.5 mL subcutaneous solution 0.5 mL = 1.5 mg, Subcutaneous Injection, Every Saturday, for 90 days, # 6.5 mL, 5 Refills, Hard Stop 12/13/20 15:26:00 EDT, 06/22/19 15:26:00 EDT, Solution, [facility]/pharmacy #[id number], E11.65, 157.48, cm, 04/27/19 15:43:00 EST, Height Start Date: 06/22/19 Stop Date: 12/13/20 Status: Ordered valACYclovir 500 mg oral tablet See Instructions, TAKE 1 TABLET BY MOUTH TWICE A DAY FOR 3 DAYS NEEDED FOR OUTBREAK, # 6 tablet,Refills 2, Acute, Instructions Replace Required Details, Route to Pharmacy Electronically, [facility] STORE 07970, 157.48, cm, 05/31/20 9:41:00 EST, Height Start Date: 06/27/20 Status: Ordered Vascepa 1 g oral capsule 2 capsule = 2 Gm, By Mouth, 2 times a day, # 360 capsule, 5 Refills, Maintenance, 05/03/20 15:59:00EST, Capsule, [facility]/pharmacy #[id number], 157.48, cm, 03/04/20 14:14:00 [...] Active *Briana Garces, Care Coor dinator, ICP [phone](Confirmed) Active Reflux(Confirmed) Active Hepatic steatosis(Confirmed) Active -EF [...]
--- OUTSIDE RECORDS SUMMARY | 2024-01-23 14:34 | XMS_ITS | Continuity of Care Document ---
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 [id number] 2Admin Note: vis given dated 10/24/12 3Admin Note: vis given dated 10/01/11 4Admin Note: vis 5Admin Note: vis 6Admin Note: vis given: 10/27/2006 7Admin Note: vis given : 10/10/2005 8Admin Note: vis given 2007- Medications acetaminophen 500 mg oral tablet 2 tablet, By Mouth, 4 times a day, PRN NEEDED FOR PAIN, # 100 tablet, 1 Refills, Acute, 219:52:00 EDT, [facility], 157.48, cm, 10/11/20 9:39:00 EDT, Height Start Date: 10/26/20 Status: Ordered Alcohol Pads See Instructions, # 200 each, Refills 11, Tot. Refills 11, Maintenance, To cleans before injections5 x a day., 03/03/21 9:18:00 EST, E11.65, Compound, 157.48, cm, 03/01/21 15:54:00 EST, Height Start Date: 03/03/21 Stop Date: 02/26/22 Status: Ordered Dmcyv-Wyzqeo-Ucdy 300 mg oral capsule 1 capsule, By Mouth, 2 times a day, NOT COVERED., # 60 capsule, 11 Refills, [facility]9743, 157.48, cm, 01/27/21 9:30:00 EDT, Height Start Date: 01/30/21 Status: Ordered ammonium lactate 12% topical cream 1 application, Topically, 2 times a day, # 385 Gm, 5 Refills, Maintenance, 12/19/20 14:08:00 EDT, Cream, [facility]/pharmacy #[id number], Partial fill upon patient request if the prescription is for a schedule IIopioid drug., 1 application Topically 2 times a day... Start Date: 12/19/20 Stop Date: 06/17/21 Status: Ordered aspirin 81 mg oral delayed release tablet 1 tablet, By Mouth, Daily, # 30 tablet, 11 Refills, Maintenance, 06/21/20 17:44:00 EDT, [facility] 09306, 157.48, cm, 05/31/20 9:41:00 EST, Height Start Date: 06/21/20 Status: Ordered atorvastatin 80 mg oral tablet 1 tablet = 80 mg, By Mouth, Daily, replaces Simvastatin, # 90 tablet, 4 Refills, Maintenance, 06/02/21 14:22:00 EST, Tablet, [facility]/pharmacy #[id number], replaces simvastatin, 157.48, cm, 06/02/21 14:20:00 EST, Height Start Date: 06/02/21 Stop Date: 08/26/22 Status: Ordered capsaicin 0.075% topical cream See Instructions, APPLY TO AFFECTED AREA TWICE A DAY, # 57 Gm, 4 Refills, [facility], 30, APPLY TO AFFECTED AREA TWICE A DAY, 157.48, cm, 11/11/20 9:37:00 EDT, Height Start Date: 01/02/21 Status: Ordered Daily David oral tablet 1 tablet, By Mouth, Daily, INSTR:TAKE IT 2 HOURS SEPARATE FROM ORLISTAT ([place]), # 30 tablet, 11 Refills, Maintenance, 08/19/20 16:26:00 EDT, [facility], 30, TAKE 1 TABLET BY MOUTH DAILY. [...] Maintenance, 09/02/20 12:50:00 EDT, Gel, [facility]/pharmacy #[id number], 157.48, cm, 05/31/20 9:41:00 EST, Height [...] EVERY DAY, # 16 mL, 5 Refills, [facility], 30, USE 1 SPRAY IN EACH NOSTRIL [...] 3, Maintenance, use up to check blood [id number] per day. 90 DAY SUPPLY, E11.9, 03/03/21 [...] mL, 3 Refills, Maintenance, 05/09/21 10:32:00 EST, [facility], Partial fill upon pat... Start Date: 05/09/21 Status: Ordered Lantus Solostar Pen 100 units/mL subcutaneous solution See Instructions, Decreased to 60U once a day as of 12/29/19, # 30 mL, 9 Refills, Maintenance, 09/20/20 15:10:00 EDT, [facility], NEEDS 30 ML FOR [...] 0 Refills, Maintenance, 12/19/20 14:08:00 EDT, Film, [facility]/pharmacy #[id number], Partial fill upon patient request if the prescription is for a schedule II opioid drug., 1 patch Topically Daily, 157.48, cm, 11/11/20 9:37:0... Start Date: 12/19/20 Status: Ordered losartan 50 mg oral tablet 1 tablet, By Mouth, Daily, # 30 tablet, 2 Refills, [facility] STORE 73672, 157.48, cm, 05/05/21 9:51:00 EST, Height Start [...] Refills, Maintenance, 05/23/21 13:30:00 EST, EC Tablet, [facility]/pharmacy #[id number], Partial fill upon patient request if the prescription is for a schedule II opioid drug., 157.48... Start Date: 05/23/21 Status: Ordered oxyCODONE 10 mg oral tablet TAKE 1/2 TAB EVERY 12 HOURS NEEDED FOR SEVERE NECK/LOW BACK PAIN. DO NOT FILL UNTIL 05/01/21 Start Date: 06/02/21 Status: Ordered Pen [place], 31 G x 8 mm BD Ultra [...] OF 2, # 12 tablet, 7 Refills, [facility] 82596, 157.48, cm, 05/23/21 13:08:00 EST, Height Start Date: 06/02/21 Status: Ordered tiZANidine 4 mg oral capsule 1 capsule, By Mouth, 3 times a day, # 90 capsule, 3 Refills, [facility] 86932, 157.48, cm, 05/23/21 13:08:00 EST, Height Start Date: 06/01/21 Status: Ordered Topamax 25 mg oral tablet 2 tablet = 50 mg, By Mouth, Daily at bedtime, # 60 tablet, 6 Refills, Maintenance, 04/21/20 13:35:00 EST, Tablet, [facility]/pharmacy #[id number], 157.48, cm, 03/04/20 14:14:00 EST, Height Start Date: 04/21/20 Stop Date: 11/17/20 Status: Ordered Trulicity Pen 1.5 mg/0.5 mL subcutaneous solution 0.5 mL = 1.5 mg, Subcutaneous Injection, Every Saturday, for 90 days, E11.9, # 7.5 mL, 3 Refills, Hard Stop 12/03/22 15:26:00 EDT, 12/08/21 15:26:00 EDT, Solution, [facility], E11.65, 157.48, cm, 03/04/20 14:14:00 EST, Height Start Date: 12/08/21 Stop Date: 12/03/22 Status: Ordered Trulicity Pen 3 mg/0.5 mL subcutaneous solution 0.5 mL = 3 mg, Subcutaneous Injection, Every week, rotate injection sites, # 2 mL, 6 Refills, Maintenance, 03/01/21 16:55:00 EST, Solution, [facility], Partial fill upon [...] Active *Briana Garces, Care Coor dinator, ICP [phone](Confirmed) Active Reflux(Confirmed) Active Hepatic steatosis(Confirmed) Active 11462 -EF 60-65%. No wall motion abnormalities, Does [...]
--- OUTSIDE RECORDS SUMMARY | 2024-01-23 14:34 | XMS_ITS | Continuity of Care Document ---
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 Date(s): 05/28/23 - 06/27/23 [facility] [address] [place] [address] Drive [address] [place] [address]- Allergies, Adverse Reactions, Alerts Substance Reaction Severity [...] Comment: [01/22/2017] [facility] [id number] 2Admin Note: vis given dated 10/24/12 3Admin [...] 1 Refills, Acute, 219:52:00 EDT, [facility], 157.48, cm, 10/11/20 9:39:00 EDT, Height Start [...] Date: 03/03/21 Stop Date: 02/26/22 Status: Ordered Rmicx-Tevcyd-Yeez 300 mg oral capsule 1 capsule, By Mouth, 2 times a day, NOT COVERED., # 60 capsule, 11 Refills, [facility], 157.48, cm, 01/27/21 9:30:00 EDT, Height Start Date: 01/30/21 Status: Ordered ammonium lactate 12% topical cream 1 application, Topically, 2 times a day, # 385 Gm, 1 Refills, Maintenance, 12/22/22 14:16:00 EDT, Cream, [facility]/pharmacy #[id number], Partial fill upon patient request if the prescription is for a schedule IIopioid drug., 1 application Topically 2 times a day... Start Date: 12/22/22 Stop Date: 02/20/23 Status: Ordered atorvastatin 80 mg oral tablet 1 tablet, By Mouth, Daily, INSTR:REPLACES SIMVASTATIN, # 90 tablet, 1 Refills, Maintenance, 05/22/23 12:07:00 EST, [facility], 157, cm, 05/06/23 14:23:00 EST, Height, 88.3, kg, 04/16/23 11:33:00EST, Dry Weight Start Date: 05/22/23 Status: Ordered BD Single Use Swab 70% topical pad See Instructions, TO CLEANS BEFORE INJECTIONS 5 X A DAY., # 150 Unknown, 11 Refills, Maintenance, 08/16/22 10:15:00 EDT, [facility], 30, TO CLEANS BEFORE INJECTIONS 5 X A DAY., 157.5, cm, 08/01/22 9:27:00 EDT, Height Start Date: 08/16/22 Status: Ordered busPIRone 5 mg oral tablet 5 mg, 1, tablet, By Mouth, 2 times a day, # 60 tablet, Refills 4, Tot. Refills 4, Maintenance, 04/30/23 7:27:00 EST, Route to Pharmacy Electronically, [facility]/pharmacy #[id number], Partial fill upon patient request if the prescription is for a schedule II opioi... Start Date: 04/30/23 Stop Date: 09/27/23 Status: Ordered capsaicin 0.075% topical cream See Instructions, APPLY TO AFFECTED AREA TWICE A DAY, # 57 Gm, 4 Refills, Maintenance, 04/11/23 10:18:00 EST, [facility], 30, APPLY TO AFFECTED AREA TWICE A [...] 1 Refills, Maintenance, 03/07/23 13:32:00 EST, [facility]/pharmacy #[id number], Partial fill upon [...] each, 0 Refills, Maintenance, 09/20/22 9:36:00 EDT, [facility] 801[facility], 30, INHALE 1 PUFF BY MOUTH TWICE A DAY, 157.5, cm, 09/05/22 16:22:00 EDT, Height Start Date: 09/20/22 Status: Ordered fluticasone 50 mcg/inh nasal spray See Instructions, SPRAY 1 SPRAY INTO EACH NOSTRIL EVERY DAY, # 16 mL, 5 Refills, Maintenance, 07/05/22 16:20:00 EDT, [facility], 30, SPRAY 1 SPRAY INTO EACH NOSTRIL [...] tablet, 4 Refills, Maintenance, 03/11/23 15:50:00 EST, [facility] 67048, 157.5, cm, 02/19/23 9:20:00 EST, Height Start [...] mL, 6 Refills, Maintenance, 11/26/22 14:55:00 EDT, [facility], Partial fill upon patie... Start Date: 11/26/22 Status: Ordered lactase 3000 u oral tablet 3 tablet, By Mouth, 3 times a day with meals, X30 DAYS., # 120 tablet, 5 Refills, Maintenance, 04/25/23 15:25:00 EST, [facility], 157, cm, 04/17/23 7:57:00 EST, Height, 88.3, kg, 04/16/23 11:33:00 EST, Dry Weight Start Date: 04/25/23 Status: Ordered Lantus Solostar Pen 100 units/mL subcutaneous solution See Instructions, Take 45 units in the AM and 45 units daily at bedtime. E11.9., # 30 mL, 9 Refills, Maintenance, 11/26/22 14:55:00 EDT, [facility], Partial fill upon patient requestif the prescription is for a schedule II opioid lucas... Start Date: 11/26/22 Status: Ordered levothyroxine 0.112 mg oral tablet 1 tablet, By Mouth, Daily, # 30 tablet, 11 Refills, Maintenance, 06/25/23 14:09:00 EDT, [facility]/pharmacy #[id number], 157, cm, 06/24/23 14:54:00 EDT, Height, [...] 11 Refills, Maintenance, 07/03/22 18:22:00 EDT, [facility]/pharmacy #4471, 30, Duplicate Rx. Original sent 07/03/22 with routing error. Re-sending to pharmacy, APPLY TO AFFECTED AREA 3 TIMES A... Start Date: 07/03/22 Status: Ordered losartan 50 mg oral tablet See Instructions, TAKE 1 TABLET BY MOUTH EVERY DAY, # 90 tablet, 1 Refills, Maintenance, 03/11/23 15:50:00 EST, [facility] STORE 43415, 157.5, cm, 02/19/23 9:20:00 EST, Height Start [...] Refills, Maintenance, 12/06/22 13:07:00 EDT, Tablet, [facility]/pharmacy #[id number], Partial fill upon patient request if the prescription is for a schedule II opioid drug., 157.5, cm, 11/26/22 14:11:00... Start Date: 12/06/22 Stop Date: 05/05/23 Status: Ordered Narcan 4 mg/0.1 mL nasal spray = 4 mg, Nares, Both, Once, # 2 each, 2 Refills, Soft Stop, 02/22/23 14:30:00 EST, [facility]/pharmacy #[id number], Partial fill upon patient request if the prescription is for a schedule II opioid drug., 157.5, cm, 02/19/23 9:20:00 EST, Height Start Date: 02/22/23 Status: Ordered [place]-3 Fish Oil 1000 mg oral capsule 1 capsule = 1,000 mg, By Mouth, Daily, # 90 capsule, 1 Refills, Maintenance, 08/01/22 10:17:00 EDT,[facility]/pharmacy #[id number], Partial fill upon patient [...] 05/01/21 Start Date: 06/02/21 Status: Ordered Pen [place], 31 G x 8 mm BD Ultra [...] 13:08:00 EDT, Route to Pharmacy Electronically, [facility]/pharmacy #[id number], Partial fill upon patient request if the prescription is for a schedule II opi... Start Date: 12/06/22 Stop Date: 05/05/23 Status: Ordered road driver grabber tool road driver grabber tool, See Instructions, # 1 each, Refills 0, Tot. Refills 0, Maintenance, please dispense one road driver grabber tool, ICD 10 M54.6, length of use 1 month, 04/12/22 10:13:00 EST, Supply Start Date: 04/12/22 Status: Ordered replacement hospital bed with mattress replacement hospital bed with mattress, See Instructions, # 1 each, Refills 0, Tot. Refills 0, Maintenance, please dispense 1 replacement hospital bed [facility] mattress, DX G89.4, length of use lifetime, 06/20/22 14:20:00 EDT, Supply Start Date: 06/20/22 Status: Ordered topiramate 25 mg oral tablet 3 tablet, By Mouth, Daily at bedtime, # 90 tablet, 10 Refills, Maintenance, 01/17/23 8:54:00 EDT, [facility], 157.5, cm, 12/28/22 15:12:00 EDT, Height Start Date: 01/17/23 Status: Ordered Trulicity Pen 4.5 mg/0.5 mL subcutaneous solution See Instructions, INJECT 4.5 MG SUBCUTANEOUSLY ONCE A WEEK, # 2 mL, 10 Refills, Maintenance, 06/10/23 12:32:00 EDT, [facility], 157, cm, 05/06/23 14:23:00 EST, Height, 88.3, kg, 04/16/23 11:33:00 EST, Dry Weight Start Date: 06/10/23 Status: Ordered valACYclovir 500 mg oral tablet 1, tablet, By Mouth, 2 times a day, PRN, # 6 tablet, Refills 0, Maintenance, NEEDED FOR OUTBREAKS, 05/22/23 12:07:00 EST, Route to Pharmacy Electronically, [facility] 704[facility], 157, cm, 05/06/23 14:23:00 EST, Height, 88.3, kg, 04/16/23 11:33:00 EST, . 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 *Briana Garces, Credit Rating Inspector, ICP [phone] Confirmed Active PTSD (post-traumatic stress disorder) Confirmed [...] Personnel Name: Sergo Bazzi MD Position: [facility] Physician - Primary Care Member Role: PCP Address: Address: [address] [facility] [place] [address]- Name: Lizbeth Collins [place] Position: [facility] RN Member Role: Primary Care Nurse Care Team Related Persons Name: LB HENLEY Address: [address] [place] [address] Name: LB HENLEY Address: home [address] [address] Name: MILENA CUBA Address: home [address] [facility] [facility] [facility] [place] [address]
--- OUTSIDE RECORDS SUMMARY | 2024-01-23 14:34 | XMS_ITS | Continuity of Care Document ---
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 Name Role Phone Rose Mary FISCHER, Sergo Cole Primary Care Physician [phone] [facility]counter [facility] Date[facility]s): 03/07/20 - 04/06/20 [facility] [address], [place] [address] Allergies, Adverse Reactions, Alerts [...] (oldterm) 8 01/21/08 Given 1Result Comment: [01/22/2017] NDC 82063-422-12 2Admin Note: vis given dated 10/24/12 3Admin [...] mL, 5 Refills, Maintenance, 09/02/19 13:54:00 EDT, [facility], E11.9, 157.48, cm, 04/27/19 [...] 3 Refills, Maintenance, 02/01/20 15:26:00 EST, [facility]/pharmacy #[id number], 157.48, cm, 01/25/20 15:23:00 EDT, Height [...] Refills, Maintenance, 02/23/20 11:05:00 EST, Tablet, [facility]/pharmacy #[id number], replaces simvastatin, 157.48, cm, 01/25/20 15:23:00 EDT, Height Start Date: 02/23/20 Stop Date: 05/18/21 Status: Ordered atorvastatin 80 mg oral tablet 1 tablet = 80 mg, By Mouth, Daily, for 90 days, replaces Simvastatin, # 90 tablet, 4 Refills, Hard Stop 04/01/21 14:01:00 EST, 01/07/20 14:01:00 EDT, Tablet, [facility]/pharmacy #[id number], replaces simvastatin,157.48, cm, 12/29/19 15:55:00 EDT, Height Start Date: 01/07/20 Stop Date: 04/01/21 Status: Ordered BD ultra fine III pen needles [id number] BD ultra fine III pen needles [id number], See Instructions, # 360 each, Refills 3, [...] 60 Gm, 4 Refills, Acute, [facility], 30, APPLY TO AFFECTED AREA TWICE A [...] Refills, Maintenance, 12/24/19 9:18:00 EDT, Gel, [facility]/pharmacy #[id number], 157.48, cm, 04/27/19 15:43:00 EST, Height [...] Refills, Maintenance, 01/07/20 14:00:00 EDT, Tablet, [facility]/pharmacy #[id number], 157.48, cm, 12/29/19 15:55:00 EDT, Height [...] 1 Refills, Maintenance, 12/10/19 12:46:00 EDT, [facility]/pharmacy #[id number], 1 sprays Nares, Both Daily,x30 days,Instr:in [...] 3, Maintenance, use up to check blood [id number] per day. 90 DAY SUPPLY, E11.9, 02/29/20 [...] mL, 11 Refills, Maintenance, 09/02/19 13:55:00 EDT, [facility], NEEDS 30 ML FOR [...] Refills, Maintenance, 05/15/19 15:00:00 EST, Ointment, [facility]/pharmacy #[id number], 1 application Topically 3 times a day,x30 days, 157.48, cm, 04/27/19 15:43:00 EST, Height Start Date: 05/15/19 Stop Date: 05/09/20 Status: Ordered losartan 50 mg oral tablet 50 mg, 1, tablet, By Mouth, Daily, can substitute 25mg tabs x2 if needed, # 30 tablet, Refills 5, Tot. Refills 5, Maintenance, 01/11/20 11:21:00 EDT, Route to Pharmacy Electronically, [facility]/pharmacy #[id number], 157.48, cm, 12/29/19 15:55:00 EDT, Height [...] Refills, Maintenance, 08/14/19 8:49:00 EDT, Tablet, [facility]/pharmacy #[id number], 1 tablet By Mouth Daily,x90 days,Instr:Take it 2 hours separate from Orlistat ([place]), 157.... Start Date: 08/14/19 Stop Date: 11/06/20 Status: Ordered oxyCODONE 5 mg oral tablet 5 mg, 1, tablet, By Mouth, Every 12 hours, PRN, Refills 0, Tot. Refills 0, Maintenance, as needed for pain, 02/16/19 14:51:00 EST, Partial fill upon patient request Start Date: 02/16/19 Status: Ordered Pen [place], 31 G x 8 mm BD Ultra [...] 04/23/20 11:05:00 EST, 02/23/20 11:05:00 EST, Tablet, [facility]/pharmacy #[id number], 157.48, cm, 01/25/20... Start Date: 02/23/20 [...] 12/08/21 15:26:00 EDT, 12/13/20 15:26:00 EDT, Solution, [facility], E11.65, 157.48, cm, 04/27/19 15:43:00 EST, Height Start Date: 12/13/20 Stop Date: 12/08/21 Status: Ordered Trulicity Pen 1.5 mg/0.5 mL subcutaneous solution 0.5 mL = 1.5 mg, Subcutaneous Injection, Every Saturday, E11.9, # 7.5 mL, 3 Refills, Maintenance, 12/08/21 15:26:00 EDT, Solution, [facility], E11.65, 157.48, cm, 03/04/20 14:14:00 EST, Height Start Date: 12/08/21 Stop Date: 12/03/22 Status: Ordered Trulicity Pen 1.5 mg/0.5 mL subcutaneous solution 0.5 mL = 1.5 mg, Subcutaneous Injection, Every Saturday, for 90 days, # 6.5 mL, 5 Refills, Hard Stop 12/13/20 15:26:00 EDT, 06/22/19 15:26:00 EDT, Solution, [facility]/pharmacy #[id number], E11.65, 157.48, cm, 04/27/19 15:43:00 EST, Height Start Date: 06/22/19 Stop Date: 12/13/20 Status: Ordered Vascepa 1 g oral capsule 2 capsule = 2 Gm, By Mouth, 2 times a day, # 360 capsule, 0 Refills, Maintenance, 01/25/20 15:40:00EDT, Capsule, [facility]/pharmacy #[id number], 157.48, cm, 01/25/20 15:23:00 EDT, Height [...] Active *Briana Garces, Care Coor dinator, ICP [phone](Confirmed) Active Reflux(Confirmed) Active 30722 -EF 60-65%. No wall motion abnormalities, Does [...]
--- OUTSIDE RECORDS SUMMARY | 2024-01-23 14:34 | XMS_ITS | Continuity of Care Document ---
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 [id number] 2Admin Note: vis given dated 10/24/12 3Admin [...] tablet, 5 Refills, Maintenance, 05/05/19 11:32:00 EST, [facility], 157.48, cm, 04/27/19 15:43:00 EST, Height Start Date: 05/05/19 Status: Ordered atorvastatin 80 mg oral tablet 1 tablet = 80 mg, By Mouth, Daily, replaces Simvastatin, # 90 tablet, 0 Refills, Maintenance, 12/14/19 17:01:00 EDT, Tablet, [facility]/pharmacy #[id number], replaces simvastatin, 157.48, cm, 04/27/19 15:43:00 EST, Height Start Date: 12/14/19 Stop Date: 03/13/20 Status: Ordered BD ultra fine III pen needles [id number] BD ultra fine III pen needles [id number], See Instructions, # 360 each, Refills 3, [...] 60 Gm, 4 Refills, Acute, [facility], 30, APPLY TO AFFECTED AREA TWICE A [...] 6 Refills, Maintenance, 08/14/19 8:50:00 EDT, Gel, [facility]/pharmacy #[id number], 157.48, cm, 04/27/19 15:43:00 EST, [...] 2 Refills, Maintenance, 11/13/19 18:59:00 EDT, Tablet, [facility], 157.48, cm, 04/27/19 [...] Gm, 1 Refills, Maintenance, 12/10/19 12:46:00 EDT, [facility]/pharmacy #[id number], 1 sprays Nares, Both Daily,x30 [...] 3, Maintenance, use up to check blood [id number] per day. 90 DAY SUPPLY, E11.9, 08/21/19 [...] 11 Refills, Maintenance, 05/15/19 15:00:00 EST, Ointment, [facility]/pharmacy #[id number], 1 application Topically 3 times a day,x30 days, 157.48, cm, 04/27/19 15:43:00 EST, Height Start Date: 05/15/19 Stop Date: 05/09/20 Status: Ordered losartan 50 mg oral tablet 50 mg, 1, tablet, By Mouth, Daily, can substitute 25mg tabs x2 if needed, # 30 tablet, Refills 5, Tot. Refills 5, Maintenance, 06/22/19 15:26:00 EDT, [id number], 157.48, cm, 04/27/19 15:43:00 EST, Height Start Date: 06/22/19 Stop Date: 12/19/19 Status: Ordered mirtazapine 15 mg oral tablet TAKE 1 TABLET BY MOUTH EVERY DAY IN THE EVENING Start Date: 10/14/18 Status: Ordered multivitamin Multiple Vitamins oral tablet 1 tablet, By Mouth, Daily, Take it 2 hours separate from Orlistat ([place]), # 90 tablet, 4 Refills, Maintenance, 08/14/19 8:49:00 EDT, Tablet, [facility]/pharmacy #[id number], 1 tablet By Mouth Daily,x90 days,Instr:Take it 2 hours separate from Orlistat ([place]), 157.... Start Date: 08/14/19 Stop Date: 11/06/20 Status: Ordered oxyCODONE 5 mg oral tablet 5 mg, 1, tablet, By Mouth, Every 12 hours, PRN, Refills 0, Tot. Refills 0, Maintenance, as needed for pain, 02/16/19 14:51:00 EST, Partial fill upon patient request Start Date: 02/16/19 Status: Ordered Pen [place], 31 G x 8 mm BD Ultra [...] 3 Refills, Maintenance, 12/13/20 15:26:00 EDT, Solution, [facility], E11.65, 157.48, cm, 04/27/19 15:43:00 EST, Height Start Date: 12/13/20 Stop Date: 12/08/21 Status: Ordered Trulicity Pen 1.5 mg/0.5 mL subcutaneous solution 0.5 mL = 1.5 mg, Subcutaneous Injection, Every Saturday, for 90 days, # 6.5 mL, 5 Refills, Hard Stop 12/13/20 15:26:00 EDT, 06/22/19 15:26:00 EDT, Solution, [facility]/pharmacy #[id number], E11.65, 157.48, cm, 04/27/19 15:43:00 [...] Active *Briana Garces, Care Coor dinator, ICP [phone](Confirmed) Active Reflux(Confirmed) Active 23161 -EF 60-65%. No wall motion abnormalities, Does [...]
--- OUTSIDE RECORDS SUMMARY | 2024-01-23 14:34 | XMS_ITS | Continuity of Care Document ---
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 [...] tablet, 3 Refills, Maintenance, 02/01/20 15:26:00 EST, [facility]/pharmacy #[id number], 157.48, cm, 01/25/20 15:23:00 EDT, Height Start Date: 02/01/20 Status: Ordered ammonium lactate 12% topical cream 1 application, Topically, 2 times a day, # 385 Gm, 5 Refills, Maintenance, 06/20/20 10:55:00 EDT, Cream, [facility]/pharmacy #[id number], Partial fill upon patient request [...] Refills, Maintenance, 06/21/20 17:44:00 EDT, [facility], 157.48, cm, 05/31/20 9:41:00 EST, Height Start Date: 06/21/20 Status: Ordered atorvastatin 80 mg oral tablet 1 tablet = 80 mg, By Mouth, Daily, replaces Simvastatin, # 90 tablet, 4 Refills, Maintenance, 02/23/20 11:05:00 EST, Tablet, [facility]/pharmacy #[id number], replaces simvastatin, 157.48, cm, 01/25/20 15:23:00 EDT, Height Start Date: 02/23/20 Stop Date: 05/18/21 Status: Ordered atorvastatin 80 mg oral tablet 1 tablet = 80 mg, By Mouth, Daily, for 90 days, replaces Simvastatin, # 90 tablet, 4 Refills, Hard Stop 04/01/21 14:01:00 EST, 01/07/20 14:01:00 EDT, Tablet, [facility]/pharmacy #[id number], replaces simvastatin,157.48, cm, 12/29/19 15:55:00 EDT, Height Start Date: 01/07/20 Stop Date: 04/01/21 Status: Ordered BD ultra fine III pen needles [id number] BD ultra fine III pen needles [id number], See Instructions, # 360 each, Refills 3, [...] 6 Refills, Maintenance, 06/27/20 15:14:00 EDT, Gel, [facility]/pharmacy #[id number], 157.48, cm, 05/31/20 9:41:00 EST, [...] 5 Refills, Maintenance, 01/07/20 14:00:00 EDT, Tablet, [facility]/pharmacy #[id number], 157.48, cm, 12/29/19 15:55:00 EDT, [...] 3, Maintenance, use up to check blood [id number] per day. 90 DAY SUPPLY, E11.9, 02/29/20 [...] Refills, Maintenance, 04/07/20 16:52:00 EST, [facility], Partial fill upon patient request [...] mL, 11 Refills, Maintenance, 09/02/19 13:55:00 EDT, [facility], NEEDS 30 ML FOR 30 [...] DAY, # 35.44 Gm, 11 Refills, Acute, [facility], 30, APPLY TO AFFECTED AREA 3 TIMES A DAY, 157.48, cm, 03/04/20 14:14:00 EST, Height Start Date: 05/10/20 Status: Ordered losartan 50 mg oral tablet 1 tablet, By Mouth, Daily, # 30 tablet, 5 Refills, Maintenance, 06/20/20 9:32:00 EDT, [facility], 157.48, cm, 05/31/20 9:41:00 EST, Height Start Date: 06/20/20 Status: Ordered mirtazapine 15 mg oral tablet TAKE 1 TABLET BY MOUTH EVERY DAY IN THE EVENING Start Date: 10/14/18 Status: Ordered multivitamin Multiple Vitamins oral tablet 1 tablet, By Mouth, Daily, Take it 2 hours separate from Orlistat ([place]), # 90 tablet, 4 Refills, Maintenance, 08/14/19 8:49:00 EDT, Tablet, [facility]/pharmacy #[id number], 1 tablet By Mouth Daily,x90 days,Instr:Take it 2 hours separate from Orlistat ([place]), 157.... Start Date: 08/14/19 Stop Date: 11/06/20 Status: Ordered oxyCODONE 5 mg oral tablet 5 mg, 1, tablet, By Mouth, Every 12 hours, PRN, Refills 0, Tot. Refills 0, Maintenance, as needed for pain, 02/16/19 14:51:00 EST, Partial fill upon patient request Start Date: 02/16/19 Status: Ordered Pen [place], 31 G x 8 mm BD Ultra [...] 11/17/20 13:36:00 EDT, 04/21/20 13:36:00 EST, Tablet, [facility]/pharmacy #[id number], 157.48, cm, 03/04/20... Start Date: 04/21/20 Stop Date: 11/17/20 Status: Ordered Topamax 25 mg oral tablet 2 tablet = 50 mg, By Mouth, Daily at bedtime, # 60 tablet, 6 Refills, Maintenance, 04/21/20 13:35:00 EST, Tablet, [facility]/pharmacy #[id number], 157.48, cm, 03/04/20 14:14:00 EST, Height Start Date: 04/21/20 Stop Date: 11/17/20 Status: Ordered Trulicity Pen 1.5 mg/0.5 mL subcutaneous solution 0.5 mL = 1.5 mg, Subcutaneous Injection, Every Saturday, for 90 days, # 7.5 mL, 3 Refills, Hard Stop 12/08/21 15:26:00 EDT, 12/13/20 15:26:00 EDT, Solution, [facility], E11.65, 157.48, cm, 04/27/19 15:43:00 EST, Height Start Date: 12/13/20 Stop Date: 12/08/21 Status: Ordered Trulicity Pen 1.5 mg/0.5 mL subcutaneous solution 0.5 mL = 1.5 mg, Subcutaneous Injection, Every Saturday, E11.9, # 7.5 mL, 3 Refills, Maintenance, 12/08/21 15:26:00 EDT, Solution, [facility], E11.65, 157.48, cm, 03/04/20 14:14:00 EST, Height Start Date: 12/08/21 Stop Date: 12/03/22 Status: Ordered Trulicity Pen 1.5 mg/0.5 mL subcutaneous solution 0.5 mL = 1.5 mg, Subcutaneous Injection, Every Saturday, for 90 days, # 6.5 mL, 5 Refills, Hard Stop 12/13/20 15:26:00 EDT, 06/22/19 15:26:00 EDT, Solution, [facility]/pharmacy #4471, E11.65, 157.48, cm, 04/27/19 15:43:00 EST, Height Start Date: 06/22/19 Stop Date: 12/13/20 Status: Ordered valACYclovir 500 mg oral tablet See Instructions, TAKE 1 TABLET BY MOUTH TWICE A DAY FOR 3 DAYS NEEDED FOR OUTBREAK, # 6 tablet,Refills 2, Acute, Instructions Replace Required Details, Route to Pharmacy Electronically, [id number], 157.48, cm, 05/31/20 9:41:00 EST, Height Start Date: 06/27/20 Status: Ordered Vascepa 1 g oral capsule 2 capsule = 2 Gm, By Mouth, 2 times a day, # 360 capsule, 5 Refills, Maintenance, 05/03/20 15:59:00EST, Capsule, [facility]/pharmacy #[id number], 157.48, cm, 03/04/20 14:14:00 EST, [...] Active *Briana Garces, Care Coor dinator, ICP [phone](Confirmed) Active Reflux(Confirmed) Active 62525 -EF 60-65%. No wall motion abnormalities, Does [...]
--- OUTSIDE RECORDS SUMMARY | 2024-01-23 14:34 | XMS_ITS | Continuity of Care Document ---
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 Name Role Phone Rose Mary FISCHER, Sergo Cole Primary Care Physician Encounter [facility] Date(s): 07/12/22 - 08/31/22 [facility] [address] [place], [place] [address] Attending Physician: Not on Staff, Attending MD [...] Given 1Result Comment: [01/22/2017] [facility] [id number] 2Admin Note: vis given dated 10/24/12 3Admin Note: vis given dated 10/01/11 4Admin Note: vis 5Admin Note: vis 6Admin Note: vis given: 10/27/2006 7Admin Note: vis given : 10/10/2005 8Admin Note: vis given 2007- Medications acetaminophen 500 mg oral tablet 2 tablet, By Mouth, 4 times a day, PRN NEEDED FOR PAIN, # 100 tablet, 1 Refills, Acute, 219:52:00 EDT, [facility], 157.48, cm, 10/11/20 9:39:00 EDT, Height Start Date: 10/26/20 Status: Ordered Alcohol Pads See Instructions, # 200 each, Refills 11, Tot. Refills 11, Maintenance, To cleans before injections5 x a day., 03/03/21 9:18:00 EST, E11.65, Compound, 157.48, cm, 03/01/21 15:54:00 EST, Height Start Date: 03/03/21 Stop Date: 02/26/22 Status: Ordered Sdban-Houotq-Usyn 300 mg oral capsule 1 capsule, By Mouth, 2 times a day, NOT COVERED., # 60 capsule, 11 Refills, [facility], 157.48, cm, 01/27/21 9:30:00 EDT, Height Start [...] Unknown, 11 Refills, Maintenance, 08/16/22 10:15:00 EDT, [facility], 30, TO CLEANS BEFORE INJECTIONS 5 X A DAY., 157.5, cm, 08/01/22 9:27:00 EDT, Height Start Date: 08/16/22 Status: Ordered capsaicin 0.075% topical cream See Instructions, APPLY TO AFFECTED AREA TWICE A DAY, # 57 Gm, 4 Refills, Maintenance, 08/24/22 14:16:00 EDT, [facility]/pharmacy #[id number], 30, APPLY TO AFFECTED AREA TWICE [...] tablet, 11 Refills, Maintenance, 07/09/22 10:30:00 EDT, [facility]/pharmacy #[id number], 30, 1 tablet By Mouth Daily,Instr:INSTR:TAKE [...] Gm, 6 Refills, Maintenance, 08/24/22 14:16:00 EDT, [facility]/pharmacy #[id number], 30, APPLY TOPICALLY 4 TIMES A DAY NOT TO EXCEED 16 GRAMS/DAY/SIN... Start Date: 08/24/22 Status: Ordered docusate sodium 100 mg oral capsule See Instructions, TAKE 1 CAPSULE BY MOUTH TWICE A DAY NEEDED FOR CONSTIPATION, # 60 capsule, 5 Refills, Maintenance, 07/03/22 18:20:00 EDT, [facility]/pharmacy #[id number], Duplicate Rx. Original sent 07/03/22 with routing error. Re- sending to pharmacy, 157.5, cm... Start Date: 07/03/22 Status: Ordered docusate sodium 100 mg oral capsule 100 mg, 1, capsule, By Mouth, 2 times a day, PRN, # 60 capsule, Refills 5, Tot. Refills 5, Maintenance, as needed for constipation, 06/12/22 9:52:00 EDT, Route to Pharmacy Electronically, [facility]/pharmacy #[id number], Partial [...] each, 0 Refills, Maintenance, 08/24/22 14:16:00 EDT, [facility]/pharmacy #[id number], 30, 1 puffs Inhalation 2 times a day, 157.5, cm, 08/01/22 9:27:00 EDT, Height Start Date: 08/24/22 Status: Ordered fluticasone 50 mcg/inh nasal spray See Instructions, SPRAY 1 SPRAY INTO EACH NOSTRIL EVERY DAY, # 16 mL, 5 Refills, Maintenance, 07/05/22 16:20:00 EDT, [facility], 30, SPRAY 1 SPRAY INTO EACH NOSTRIL [...] mL, 6 Refills, Maintenance, 06/12/22 10:00:00 EDT, [facility], Partial fill upon patie... Start Date: 06/12/22 Status: Ordered Lactaid 3000 units oral tablet 3 tablet = 9,000 units, By Mouth, 3 times a day with meals, # 120 tablet, 5 Refills, Maintenance, 08/17/22 9:03:00 EDT, Tablet, [facility]/pharmacy [...] mL, 9 Refills, Maintenance, 06/19/22 16:50:00 EDT, [facility] [...] 11 Refills, Maintenance, 07/03/22 18:22:00 EDT, [facility]/pharmacy #[id number], 30, Duplicate Rx. Original sent 07/03/22 [...] Refills, Maintenance, 05/01/22 18:04:00 EST, Capsule, [facility]/pharmacy #[id number], Partial fill upon patient request if the prescription is for a schedule II opioid drug., 157.5,... Start Date: 05/01/22 Status: Ordered mirtazapine 15 mg oral tablet 1 tablet = 15 mg, By Mouth, Daily at bedtime, # 30 tablet, 4 Refills, Maintenance, 05/02/22 14:02:00 EST, Tablet, [facility]/pharmacy #[id number], Partial fill upon patient request if the prescription is for a schedule II opioid drug., 157.5, cm, 04/11/22 10:50:00... Start Date: 05/02/22 Stop Date: 09/29/22 Status: Ordered [place]-3 Fish Oil 1000 mg oral capsule 1 capsule = 1,000 mg, By Mouth, Daily, # 90 capsule, 1 Refills, Maintenance, 08/01/22 10:17:00 EDT,[facility]/pharmacy #[id number], Partial fill [...] Refills, Maintenance, 06/14/22 16:40:00 EDT, EC Tablet, [facility]/pharmacy #[id number], Partial fill upon patient request if the prescription is for a schedule II opioid drug., 157.5,... Start Date: 06/14/22 Status: Ordered oxyCODONE 10 mg oral tablet TAKE 1/2 TAB EVERY 12 HOURS NEEDED FOR SEVERE NECK/LOW BACK PAIN. DO NOT FILL UNTIL 05/01/21 Start Date: 06/02/21 Status: Ordered Pen [place], 31 G x 8 mm BD Ultra [...] 08/30/22 13:31:00 EDT, Route to Pharmacy Electronically, [facility]/pharmacy #[id number], Partial fill upon patient request if the prescription is for a schedule II opi... Start Date: 08/30/22 Stop Date: 01/27/23 Status: Ordered box office manager grabber tool box office manager grabber tool, See Instructions, # 1 each, Refills 0, Tot. Refills 0, Maintenance, please dispense one box office manager grabber tool, ICD 10 M54.6, length [...] 14:16:00 EDT, 08/24/22 14:16:00 EDT, Chew Tablet, [facility] [...] 6 Refills, Maintenance, 06/26/22 10:14:00 EDT, Tablet, [facility], 157.5, cm, 06/21/22 8:43:00 EDT, Height Start Date: 06/26/22 Stop Date: 01/22/23 Status: Ordered Trulicity Pen 3 mg/0.5 mL subcutaneous solution See Instructions, INJECT 0.5ML SUBCUTANEOUSLY EVERY WEEK, ROTATE INJECTION SITES, # 2 mL, 5 Refills, 01/23/22 16:33:00 EDT, [facility], 157.5, cm, 01/20/22 13:38:00 EDT, Height Start Date: 01/23/22 Status: Ordered Trulicity Pen 4.5 mg/0.5 mL subcutaneous solution See Instructions, 4.5 mg Subcutaneous Infusion weekly. E11.9, # 4 each, 5 Refills, Maintenance, 06/19/22 17:00:00 EDT, [facility], Partial fill upon patient request if the prescription is for a schedule II opioid drug., 157.5, cm, ... 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 *Briana Garces, Online Marketing Manager, ICP [phone] Confirmed Active PTSD (post-traumatic stress disorder) Confirmed [...] Name: Rose Mary FISCHER, Sergo Cole Position: [facility] Physician - Primary Care Member Role: PCP Address: Address: [address] [place] [id number]- Name: Lizbeth Collins [place] Position: [facility] [place] Member Role: Primary Care Nurse Care Team Related Persons Name: LB HENLEY Address: [address] [place] [address] Name: LB HENLEY Address: home [address] [address] Name: MILENA CUBA Address: home [address] [place] [address]
--- OUTSIDE RECORDS SUMMARY | 2024-01-23 14:34 | XMS_ITS | Continuity of Care Document ---
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 Attending Physician: Broderick Washburn Admitting Physician: AdmBroderick enriquez Referring Physician: Admtr, ArItzel Allergies, Adverse Reactions, [...] 1Result Comment: [01/22/2017] [facility] [id number] 2Admin Note: vis given dated 10/24/12 3Admin [...] mL, 5 Refills, Maintenance, 09/02/19 13:54:00 EDT, [facility], E11.9, 157.48, cm, 04/27/19 [...] tablet, 5 Refills, Maintenance, 05/05/19 11:32:00 EST, [facility], 157.48, cm, 04/27/19 15:43:00 EST, Height Start Date: 05/05/19 Status: Ordered atorvastatin 80 mg oral tablet 1 tablet = 80 mg, By Mouth, Daily, replaces Simvastatin, # 90 tablet, 0 Refills, Maintenance, 12/14/19 17:01:00 EDT, Tablet, [facility]/pharmacy #4471, replaces simvastatin, 157.48, cm, 04/27/19 15:43:00 EST, Height Start Date: 12/14/19 Stop Date: 03/13/20 Status: Ordered BD ultra fine III pen needles [id number] BD ultra fine III pen needles [id number], See Instructions, # 360 each, Refills 3, [...] 60 Gm, 4 Refills, Acute, [facility], 30, APPLY TO AFFECTED AREA TWICE A [...] 6 Refills, Maintenance, 08/14/19 8:50:00 EDT, Gel, [facility]/pharmacy #4471, 157.48, cm, 04/27/19 15:43:00 EST, Height [...] 2 Refills, Maintenance, 11/13/19 18:59:00 EDT, Tablet, [facility], 157.48, cm, 04/27/19 15:43:00 [...] Gm, 1 Refills, Maintenance, 12/10/19 12:46:00 EDT, [facility]/pharmacy #4471, 1 sprays Nares, Both Daily,x30 days,Instr:in [...] 3, Maintenance, use up to check blood [id number] per day. 90 DAY SUPPLY, E11.9, 08/21/19 [...] mL, 11 Refills, Maintenance, 09/02/19 13:55:00 EDT, [facility], NEEDS 30 ML [...] 11 Refills, Maintenance, 05/15/19 15:00:00 EST, Ointment, [facility]/pharmacy #[id number], 1 application Topically 3 times a day,x30 days, 157.48, cm, 04/27/19 15:43:00 EST, Height Start Date: 05/15/19 Stop Date: 05/09/20 Status: Ordered losartan 50 mg oral tablet 50 mg, 1, tablet, By Mouth, Daily, can substitute 25mg tabs x2 if needed, # 30 tablet, Refills 5, Tot. Refills 5, Maintenance, 06/22/19 15:26:00 EDT, Route to Pharmacy Electronically, [facility]/pharmacy #[id number], 157.48, cm, 04/27/19 15:43:00 EST, Height Start Date: 06/22/19 Stop Date: 12/19/19 Status: Ordered mirtazapine 15 mg oral tablet TAKE 1 TABLET BY MOUTH EVERY DAY IN THE EVENING Start Date: 10/14/18 Status: Ordered multivitamin Multiple Vitamins oral tablet 1 tablet, By Mouth, Daily, Take it 2 hours separate from Orlistat ([place]), # 90 tablet, 4 Refills, Maintenance, 08/14/19 8:49:00 EDT, Tablet, [facility]/pharmacy #[id number], 1 tablet By Mouth Daily,x90 days,Instr:Take it 2 hours separate from Orlistat ([place]), 157.... Start Date: 08/14/19 Stop Date: 11/06/20 Status: Ordered oxyCODONE 5 mg oral tablet 5 mg, 1, tablet, By Mouth, Every 12 hours, PRN, Refills 0, Tot. Refills 0, Maintenance, as needed for pain, 02/16/19 14:51:00 EST, Partial fill upon patient request Start Date: 02/16/19 Status: Ordered Pen [place], 31 G x 8 mm BD Ultra [...] 3 Refills, Maintenance, 12/13/20 15:26:00 EDT, Solution, [facility], E11.65, 157.48, cm, 04/27/19 15:43:00 EST, Height Start Date: 12/13/20 Stop Date: 12/08/21 Status: Ordered Trulicity Pen 1.5 mg/0.5 mL subcutaneous solution 0.5 mL = 1.5 mg, Subcutaneous Injection, Every Saturday, for 90 days, # 6.5 mL, 5 Refills, Hard Stop 12/13/20 15:26:00 EDT, 06/22/19 15:26:00 EDT, Solution, [facility]/pharmacy #4471, E11.65, 157.48, cm, 04/27/19 15:43:00 EST, [...] in female(Confirmed) 09/12/11 Active Carpal Tunnel Syndrome(Confirmed) 10/7/11 Active Cholecystectomy(Confirmed) Active Constipation(Confirmed) Active Diabetes mellitus [...] Active *Briana Garces, Care Coor dinator, ICP [phone](Confirmed) Active Reflux(Confirmed) Active 04689 -EF 60-65%. No wall motion abnormalities, Does [...]
--- OUTSIDE RECORDS SUMMARY | 2024-01-23 14:34 | XMS_ITS | Continuity of Care Document ---
Author Organization [facility] Address [address] [place] [address]- Care Team Providers Care Manager Data Warehousing Name Role Phone Sergo Bazzi MD Primary Care Physician Encounter [facility] Date(s): 03/12/23 - 04/11/23 [facility] [address] [place], [place] [address] Allergies, Adverse Reactions, Alerts [...] 1Result Comment: [01/22/2017] [facility] [id number] 2Admin Note: vis given dated 10/24/12 3Admin [...] 100 tablet, 1 Refills, Acute, 219:52:00 EDT, [facility], 157.48, cm, 10/11/20 9:39:00 EDT, Height Start Date: 10/26/20 Status: Ordered Alcohol Pads See Instructions, # 200 each, Refills 11, Tot. Refills 11, Maintenance, To cleans before injections5 x a day., 03/03/21 9:18:00 EST, E11.65, Compound, 157.48, cm, 03/01/21 15:54:00 EST, Height Start Date: 03/03/21 Stop Date: 02/26/22 Status: Ordered Gbaau-Avgmjl-Icdd 300 mg oral capsule 1 capsule, By Mouth, 2 times a day, NOT COVERED., # 60 capsule, 11 Refills, [facility], 157.48, cm, 01/27/21 9:30:00 EDT, Height Start Date: 01/30/21 Status: Ordered ammonium lactate 12% topical cream 1 application, Topically, 2 times a day, # 385 Gm, 1 Refills, Maintenance, 12/22/22 14:16:00 EDT, Cream, [facility]/pharmacy #4471, Partial fill upon patient request if the prescription is for a schedule IIopioid drug., 1 application Topically 2 times a day... Start Date: 12/22/22 Stop Date: 02/20/23 Status: Ordered atorvastatin 80 mg oral tablet 1 tablet = 80 mg, By Mouth, Daily, replaces Simvastatin, # 90 tablet, 1 Refills, Maintenance, 11/19/23 14:22:00 EDT, Tablet, [facility]/pharmacy #4471, replaces simvastatin, 157.5, cm, 11/26/22 14:11:00 EDT, Height Start Date: 11/19/23 Stop Date: 05/17/24 Status: Ordered BD Single Use Swab 70% topical pad See Instructions, TO CLEANS BEFORE INJECTIONS 5 X A DAY., # 150 Unknown, 11 Refills, Maintenance, 08/16/22 10:15:00 EDT, [facility], 30, TO CLEANS BEFORE INJECTIONS 5 X A DAY., 157.5, cm, 08/01/22 9:27:00 EDT, Height Start Date: 08/16/22 Status: Ordered capsaicin 0.075% topical cream See Instructions, APPLY TO AFFECTED AREA TWICE A DAY, # 57 Gm, 4 Refills, Maintenance, 04/11/23 10:18:00 EST, [facility] STORE [facility]99, 30, APPLY TO AFFECTED AREA TWICE A [...] tablet, 11 Refills, Maintenance, 07/09/22 10:30:00 EDT, [facility]/pharmacy #4471, 30, 1 tablet [...] Gm, 1 Refills, Maintenance, 12/14/22 6:14:00 EDT, [facility]/pharmacy #4471, 30, APPLY TOPICALLY 4 TIMES A DAY NOT TO EXCEED 16 GRAMS/DAY/SING... Start Date: 12/14/22 Status: Ordered docusate sodium 100 mg oral capsule See Instructions, TAKE 1 CAPSULE BY MOUTH TWICE A DAY NEEDED FOR CONSTIPATION, # 60 capsule, 5 Refills, Maintenance, 07/03/22 18:20:00 EDT, [facility]/pharmacy #4471, Duplicate Rx. Original [...] each, 0 Refills, Maintenance, 09/20/22 9:36:00 EDT, [facility], 30, INHALE 1 PUFF BY MOUTH TWICE A DAY, 157.5, cm, 09/05/22 16:22:00 EDT, Height Start Date: 09/20/22 Status: Ordered fluticasone 50 mcg/inh nasal spray See Instructions, SPRAY 1 SPRAY INTO EACH NOSTRIL EVERY DAY, # 16 mL, 5 Refills, Maintenance, 07/05/22 16:20:00 EDT, [facility] [address], 30, SPRAY 1 SPRAY INTO EACH NOSTRIL [...] tablet, 4 Refills, Maintenance, 03/11/23 15:50:00 EST, [facility] [address], 157.5, cm, 02/19/23 9:20:00 EST, Height Start [...] mL, 6 Refills, Maintenance, 11/26/22 14:55:00 EDT, [facility], Partial fill upon patie... Start Date: 11/26/22 Status: Ordered Lactaid 3000 units oral tablet 3 tablet = 9,000 units, By Mouth, 3 times a day with meals, # 120 tablet, 5 Refills, Maintenance, 08/17/22 9:03:00 EDT, Tablet, [facility]/pharmacy #[id number], Partial fill upon patient request if the prescription is for a schedule II opioid drug., 157.5, cm, .. Start Date: 08/17/22 Stop Date: 02/13/23 Status: Ordered Lantus Solostar Pen 100 units/mL subcutaneous solution See Instructions, Take 45 units in the AM and 45 units daily at bedtime. E11.9., # 30 mL, 9 Refills, Maintenance, 11/26/22 14:55:00 EDT, [facility], Partial fill upon patient requestif the prescription is for a schedule II opioid lucas... Start Date: 11/26/22 Status: Ordered lidocaine 5% topical ointment See Instructions, APPLY TO AFFECTED AREA 3 TIMES A DAY, # 35.44 Gm, 11 Refills, Maintenance, 02/28/22 8:51:00 EST, [facility]/pharmacy #4471, 30, APPLY TO AFFECTED AREA 3 TIMES A DAY, 157.5, cm, 02/21/22 14:36:00 EST, Height Start Date: 02/28/22 Status: Ordered lidocaine 5% topical ointment See Instructions, APPLY TO AFFECTED AREA 3 TIMES A DAY, # 35.44 Gm, 11 Refills, Maintenance, 07/03/22 18:22:00 EDT, [facility]/pharmacy #4471, 30, Duplicate Rx. Original sent 07/03/22 with routing error. Re-sending to pharmacy, APPLY TO AFFECTED AREA 3 TIMES A... Start Date: 07/03/22 Status: Ordered losartan 50 mg oral tablet See Instructions, TAKE 1 TABLET BY MOUTH EVERY DAY, # 90 tablet, 1 Refills, Maintenance, 03/11/23 15:50:00 EST, [facility] 60746, 157.5, cm, 02/19/23 9:20:00 EST, Height Start [...] 4 Refills, Maintenance, 12/06/22 13:07:00 EDT, Tablet, [facility]/pharmacy #[id number], Partial fill upon [...] EST, Height Start Date: 02/22/23 Status: Ordered [place]-3 Fish Oil 1000 mg oral capsule 1 capsule = 1,000 mg, By Mouth, Daily, # 90 capsule, 1 Refills, Maintenance, 08/01/22 10:17:00 EDT,[facility]/pharmacy #[id number], Partial fill upon [...] 05/01/21 Start Date: 06/02/21 Status: Ordered Pen [place], 31 G x 8 mm BD Ultra [...] 12/06/22 13:08:00 EDT, Route to Pharmacy Electronically, [facility]/pharmacy #[id number], Partial fill upon patient request if the prescription is for a schedule II opi... Start Date: 12/06/22 Stop Date: 05/05/23 Status: Ordered human resource analyst grabber tool human resource analyst grabber tool, See Instructions, # 1 each, Refills 0, Tot. Refills 0, Maintenance, please dispense one human resource analyst grabber tool, ICD 10 M54.6, length [...] tablet, 10 Refills, Maintenance, 01/17/23 8:54:00 EDT, [facility], 157.5, cm, 12/28/22 15:12:00 EDT, Height Start Date: 01/17/23 Status: Ordered Trulicity Pen 4.5 mg/0.5 mL subcutaneous solution See Instructions, INJECT 4.5 MG SUBCUTANEOUSLY ONCE A WEEK, # 2 mL, 5 Refills, Maintenance, 11/21/22 8:33:00 EDT, [facility], 157.5, cm, 11/16/22 13:50:00 EDT, Height Start Date: 11/21/22 Status: Ordered valACYclovir 500 mg oral tablet 1, tablet, By Mouth, 2 times a day, PRN, # 6 tablet, Refills 1, Maintenance, NEEDED FOR OUTBREAKS, 04/10/23 8:50:00 EST, Route to Pharmacy Electronically, [facility] [address], 157.5, cm, 03/18/23 11:17:00 EST, Height Start [...] each, 0 Refills, Maintenance, 09/17/22 15:25:00 EDT, [facility] 41255, 157.5, cm, 09/05/22 16:22:00 EDT, Height Start [...] 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 No wall motion abnormalities, Does [...] Sergo Bazzi MD Position: [facility] Physician - Primary Care Member Role: PCP Address: Address: [address] [place] [address] [place] [address]- Name: Lizbeth Collins [place] Position: [facility] RN Member Role: Primary Care Nurse Care Team Related Persons Name: LB HENLEY Address: home [address] [address] Name: LB HENLEY Address: [address] [place] [address] Name: MILENA CUBA Address: home [address] [place] [address]
--- OUTSIDE RECORDS SUMMARY | 2024-01-23 14:34 | XMS_ITS | Continuity of Care Document ---
Author Organization [facility] Address [address] [place] [address]- Care Team Providers Care Shop Estimator Name Role Phone Rose Mary FISCHER, Sergo Cole Primary Care Physician [phone] Encounter [facility] Date(s): 05/31/20 - 06/30/20 [facility] [address], [place] [address] Attending Physician: Broderick Washburn Admitting Physician: AdmBroderick enriquez Referring Physician: Admtr, Broderick Allergies, Adverse Reactions, Alerts Substance Reaction Severity [...] Comment: [01/22/2017] [facility] [id number] 2Admin Note: vis given dated 10/24/12 3Admin [...] mL, 5 Refills, Maintenance, 09/02/19 13:54:00 EDT, [facility], E11.9, 157.48, cm, [...] 5 Refills, Maintenance, 06/20/20 10:55:00 EDT, Cream, [facility]/pharmacy #[id number], Partial fill [...] Refills, Maintenance, 06/21/20 17:44:00 EDT, [facility], 157.48, cm, 05/31/20 9:41:00 EST, Height Start Date: 06/21/20 Status: Ordered atorvastatin 80 mg oral tablet 1 tablet = 80 mg, By Mouth, Daily, replaces Simvastatin, # 90 tablet, 4 Refills, Maintenance, 02/23/20 11:05:00 EST, Tablet, [facility]/pharmacy #4471, replaces simvastatin, 157.48, cm, 01/25/20 15:23:00 EDT, Height Start Date: 02/23/20 Stop Date: 05/18/21 Status: Ordered atorvastatin 80 mg oral tablet 1 tablet = 80 mg, By Mouth, Daily, for 90 days, replaces Simvastatin, # 90 tablet, 4 Refills, Hard Stop 04/01/21 14:01:00 EST, 01/07/20 14:01:00 EDT, Tablet, [facility]/pharmacy #4471, replaces simvastatin,157.48, cm, 12/29/19 15:55:00 EDT, Height Start Date: 01/07/20 Stop Date: 04/01/21 Status: Ordered BD ultra fine III pen needles [id number] BD ultra fine III pen needles [id number], See Instructions, # 360 each, Refills 3, [...] Stop 07/25/20 15:15:00 EDT, 06/27/20 15:14:00 EDT, [id number], 30, APPLY TO AFFECTED [...] Gm, 5 Refills, Maintenance, 06/27/20 15:14:00 EDT, [facility]/pharmacy #4471, 1 sprays Nares, Both Daily,x30 [...] 3, Maintenance, use up to check blood [id number] per day. 90 DAY SUPPLY, E11.9, 02/29/20 [...] mL, 2 Refills, Maintenance, 04/07/20 16:52:00 EST, [facility], Partial fill upon [...] mL, 11 Refills, Maintenance, 09/02/19 13:55:00 EDT, [facility], NEEDS 30 ML [...] DAY, # 35.44 Gm, 11 Refills, Acute, [facility], 30, APPLY TO AFFECTED AREA 3 TIMES A DAY, 157.48, cm, 03/04/20 14:14:00 EST, Height Start Date: 05/10/20 Status: Ordered losartan 50 mg oral tablet 1 tablet, By Mouth, Daily, # 30 tablet, 5 Refills, Maintenance, 06/20/20 9:32:00 EDT, [facility] 002[facility], 157.48, cm, 05/31/20 9:41:00 EST, Height Start Date: 06/20/20 Status: Ordered mirtazapine 15 mg oral tablet TAKE 1 TABLET BY MOUTH EVERY DAY IN THE EVENING Start Date: 10/14/18 Status: Ordered multivitamin Multiple Vitamins oral tablet 1 tablet, By Mouth, Daily, Take it 2 hours separate from Orlistat ([place]), # 90 tablet, 4 Refills, Maintenance, 08/14/19 8:49:00 EDT, Tablet, [facility]/pharmacy #4471, 1 tablet By Mouth Daily,x90 days,Instr:Take it 2 hours separate from Orlistat ([place]), 157.... Start Date: 08/14/19 Stop Date: 11/06/20 Status: Ordered oxyCODONE 5 mg oral tablet 5 mg, 1, tablet, By Mouth, Every 12 hours, PRN, Refills 0, Tot. Refills 0, Maintenance, as needed for pain, 02/16/19 14:51:00 EST, Partial fill upon patient request Start Date: 02/16/19 Status: Ordered Pen [place], 31 G x 8 mm BD Ultra [...] 11/17/20 13:36:00 EDT, 04/21/20 13:36:00 EST, Tablet, [facility], 157.48, cm, 03/04/20... Start Date: 04/21/20 [...] 12/13/20 15:26:00 EDT, 06/22/19 15:26:00 EDT, Solution, [facility]/pharmacy #4471, E11.65, 157.48, cm, 04/27/19 15:43:00 EST, Height Start Date: 06/22/19 Stop Date: 12/13/20 Status: Ordered valACYclovir 500 mg oral tablet See Instructions, TAKE 1 TABLET BY MOUTH TWICE A DAY FOR 3 DAYS NEEDED FOR OUTBREAK, # 6 tablet,Refills 2, Acute, Instructions Replace Required Details, Route to Pharmacy Electronically, [facility] ST[facility] 24456, 157.48, cm, 05/31/20 9:41:00 EST, Height Start [...] Active *Briana Garces, Care Coor dinator, ICP [phone](Confirmed) Active Reflux(Confirmed) Active 77797 -EF 60-65%. No wall motion abnormalities, Does [...]
--- OUTSIDE RECORDS SUMMARY | 2024-01-23 14:34 | XMS_ITS | Continuity of Care Document ---
Author Organization [facility] Address [address] [place] [address]- Care Team Providers Care Preschool Assistant Principal Name Role Phone Rose Mary FISCHER, Sergo Cole Primary Care Physician [phone] Encounter [facility] Date(s): 08/08/20 - 09/07/20 [facility] [address] [place], [place] [address] Allergies, Adverse [...] [01/22/2017] [facility] [id number] 2Admin Note: vis given dated 10/24/12 3Admin [...] 15:45:00 EDT, 08/30/20 15:45:00 EDT, Tablet, [facility]/pharmacy #[id number], [...] mL, 5 Refills, Maintenance, 09/02/19 13:54:00 EDT, [facility], E11.9, 157.48, cm, 04/27/19 [...] Refills, Maintenance, 06/20/20 10:55:00 EDT, Cream, [facility]/pharmacy #4471, [...] Refills, Maintenance, 06/21/20 17:44:00 EDT, [facility], 157.48, cm, 05/31/20 9:41:00 EST, Height Start Date: 06/21/20 Status: Ordered atorvastatin 80 mg oral tablet 1 tablet = 80 mg, By Mouth, Daily, replaces Simvastatin, # 90 tablet, 4 Refills, Maintenance, 02/23/20 11:05:00 EST, Tablet, [facility]/pharmacy #4471, replaces simvastatin, 157.48, cm, 01/25/20 15:23:00 EDT, Height Start Date: 02/23/20 Stop Date: 05/18/21 Status: Ordered BD ultra fine III pen needles [id number] BD ultra fine III pen needles 42Vp0ig, See Instructions, # 360 each, Refills 3, [...] Refills, Maintenance, 08/19/20 16:26:00 EDT, [facility], 30, TAKE 1 TABLET BY MOUTH DAILY. [...] Refills, Maintenance, 09/02/20 12:50:00 EDT, Gel, [facility]/pharmacy #4471, 157.48, cm, 05/31/20 9:41:00 EST, [...] Refills, Maintenance, 01/07/20 14:00:00 EDT, Tablet, [facility]/pharmacy #4471, 157.48, cm, 12/29/19 15:55:00 [...] 5 Refills, Maintenance, 06/27/20 15:14:00 EDT, [facility]/pharmacy #4471, 1 sprays Nares, Both [...] 3, Maintenance, use up to check blood [id number] per day. 90 DAY SUPPLY, E11.9, 02/29/20 [...] mL, 2 Refills, Maintenance, 04/07/20 16:52:00 EST, [facility], Partial fill upon patient [...] mL, 11 Refills, Maintenance, 09/02/19 13:55:00 EDT, [facility], NEEDS 30 ML FOR [...] Refills, Maintenance, 08/26/20 20:44:00 EDT, Film, [facility]/pharmacy #[id number], Partial fill [...] Refills, Maintenance, 06/20/20 9:32:00 EDT, [facility], 157.48, cm, 05/31/20 9:41:00 EST, Height Start [...] request Start Date: 02/16/19 Status: Ordered Pen [place], 31 G x 8 mm BD Ultra [...] 13:36:00 EDT, 04/21/20 13:36:00 EST, Tablet, [facility]/pharmacy #4471, 157.48, cm, 03/04/20... Start [...] 04/21/20 13:35:00 EST, Tablet, [facility]/pharmacy #4471, 157.48, cm, 03/04/20 14:14:00 EST, Height Start Date: 04/21/20 Stop Date: 11/17/20 Status: Ordered Trulicity Pen 1.5 mg/0.5 mL subcutaneous solution 0.5 mL = 1.5 mg, Subcutaneous Injection, Every Saturday, for 90 days, # 7.5 mL, 3 Refills, Hard Stop 12/08/21 15:26:00 EDT, 12/13/20 15:26:00 EDT, Solution, [facility], E11.65, 157.48, cm, 04/27/19 15:43:00 EST, Height Start Date: 12/13/20 Stop Date: 12/08/21 Status: Ordered Trulicity Pen 1.5 mg/0.5 mL subcutaneous solution 0.5 mL = 1.5 mg, Subcutaneous Injection, Every Saturday, E11.9, # 7.5 mL, 3 Refills, Maintenance, 12/08/21 15:26:00 EDT, Solution, [facility], E11.65, 157.48, cm, 03/04/20 14:14:00 EST, Height Start Date: 12/08/21 Stop Date: 12/03/22 Status: Ordered Trulicity Pen 1.5 mg/0.5 mL subcutaneous solution 0.5 mL = 1.5 mg, Subcutaneous Injection, Every Saturday, for 90 days, # 6.5 mL, 5 Refills, Hard Stop 12/13/20 15:26:00 EDT, 06/22/19 15:26:00 EDT, Solution, [facility]/pharmacy #4471, E11.65, 157.48, cm, 04/27/19 15:43:00 EST, Height Start Date: 06/22/19 Stop Date: 12/13/20 Status: Ordered valACYclovir 500 mg oral tablet See Instructions, TAKE 1 TABLET BY MOUTH TWICE A DAY FOR 3 DAYS NEEDED FOR OUTBREAK, # 6 tablet,Refills 2, Acute, Instructions Replace Required Details, Route to Pharmacy Electronically, [facility] 16014, 157.48, cm, 05/31/20 9:41:00 EST, Height Start Date: 06/27/20 Status: Ordered Vascepa 1 g oral capsule 2 capsule = 2 Gm, By Mouth, 2 times a day, # 360 capsule, 5 Refills, Maintenance, 05/03/20 15:59:00EST, Capsule, [facility]/pharmacy #4471, 157.48, cm, 03/04/20 14:14:00 [...] Active *Briana Garces, Care Coor dinator, ICP [phone](Confirmed) Active Reflux(Confirmed) Active Hepatic steatosis(Confirmed) Active 03841 -EF 60-65%. No wall motion abnormalities, Does [...]
--- OUTSIDE RECORDS SUMMARY | 2024-01-23 14:35 | XMS_ITS | Continuity of Care Document ---
Author Organization [facility] Address [address] [place] [address]- Care Team Providers Care Sdv Pilot/Navigator/Dds Operator Name Role Phone Rose Mary FISCHER, Sergo Cole Primary Care Physician Encounter [facility] Date(s): 01/02/21 - 02/01/21 [facility] [address] [place] [address]- Allergies, Adverse Reactions, Alerts Substance Reaction Severity Status morphine ITCH DIARRHEA Active Neurontin mental status changes Active Latex [...] 1Result Comment: [01/22/2017] [facility] [id number] 2Admin Note: vis given dated 10/24/12 3Admin Note: vis given dated 10/01/11 4Admin Note: vis 5Admin Note: vis 6Admin Note: vis given: 10/27/2006 7Admin Note: vis given : 10/10/2005 8Admin Note: vis given 2007- Medications acetaminophen 500 mg oral tablet 2 tablet, By Mouth, 4 times a day, PRN NEEDED FOR PAIN, # 100 tablet, 1 Refills, Acute, 219:52:00 EDT, [facility], 157.48, cm, 10/11/20 9:39:00 EDT, Height Start Date: 10/26/20 Status: Ordered Acyclovir Maintenance, 11/13/18 15:06:54 EDT Start Date: 11/13/18 Status: Ordered Admelog SoloStar 100 units/mL injectable solution 10 - 25 units, Subcutaneous Infusion, 3 times a day with meals, Inject via sliding scale, Max Dailydose 75u, 90 day supply, E11.9, # 90 mL, 5 Refills, Maintenance, 09/02/19 13:54:00 EDT, [facility], E11.9, 157.48, cm, 04/27/19 15:43:... Start Date: 09/02/19 Status: Ordered Alcohol Pads See Instructions, # 200 each, Refills 9, Tot. Refills 9, Maintenance, To cleans before injections 5x a day., 02/29/20 13:04:00 EST, E11.65, Compound, 157.48, cm, 01/25/20 15:23:00 EDT, Height Start Date: 02/29/20 Stop Date: 12/25/20 Status: Ordered Wcmbj-Sqvfno-Fcat 300 mg oral capsule 1 capsule, By Mouth, 2 times a day, NOT COVERED., # 60 capsule, 11 Refills, [facility], 157.48, cm, 01/27/21 9:30:00 EDT, Height Start Date: 01/30/21 Status: Ordered ammonium lactate 12% topical cream 1 application, Topically, 2 times a day, # 385 Gm, 5 Refills, Maintenance, 12/19/20 14:08:00 EDT, Cream, [facility]/pharmacy #[id number], Partial fill upon patient request [...] Refills, Maintenance, 06/21/20 17:44:00 EDT, [facility], 157.48, cm, 05/31/20 9:41:00 EST, Height Start Date: 06/21/20 Status: Ordered atorvastatin 80 mg oral tablet 1 tablet = 80 mg, By Mouth, Daily, replaces Simvastatin, # 90 tablet, 4 Refills, Maintenance, 02/23/20 11:05:00 EST, Tablet, [facility]/pharmacy #[id number], replaces simvastatin, 157.48, cm, 01/25/20 15:23:00 EDT, Height Start Date: 02/23/20 Stop Date: 05/18/21 Status: Ordered BD ultra fine III pen needles [id number] BD ultra fine III pen needles [id number], See Instructions, # 360 each, Refills 3, [...] A DAY, # 57 Gm, 4 Refills, [facility], 30, APPLY TO AFFECTED AREA TWICE A DAY, 157.48, cm, 11/11/20 9:37:00 EDT, Height Start Date: 01/02/21 Status: Ordered Daily David oral tablet 1 tablet, By Mouth, Daily, INSTR:TAKE IT 2 HOURS SEPARATE FROM ORLISTAT ([place]), # 30 tablet, 11 Refills, Maintenance, 08/19/20 16:26:00 EDT, [facility], 30, TAKE 1 TABLET BY MOUTH DAILY. [...] 6 Refills, Maintenance, 09/02/20 12:50:00 EDT, Gel, [facility]/pharmacy #4471, 157.48, cm, 05/31/20 9:41:00 EST, Height [...] 5 Refills, Maintenance, 01/07/20 14:00:00 EDT, Tablet, [facility]/pharmacy #4471, 157.48, cm, 12/29/19 15:55:00 EDT, Height [...] EVERY DAY, # 16 mL, 5 Refills, [facility], 30, USE 1 SPRAY IN EACH NOSTRIL [...] 3, Maintenance, use up to check blood [id number] per day. 90 DAY SUPPLY, E11.9, 02/29/20 [...] mL, 3 Refills, Maintenance, 01/13/21 8:58:00 EDT, [facility], Partial fill upon patient [...] mL, 9 Refills, Maintenance, 09/20/20 15:10:00 EDT, [facility], NEEDS 30 ML FOR [...] 0 Refills, Maintenance, 12/19/20 14:08:00 EDT, Film, [facility]/pharmacy #[id number], Partial fill upon patient request if the prescription is for a schedule II opioid drug., 1 patch Topically Daily, 157.48, cm, 11/11/20 9:37:0... Start Date: 12/19/20 Status: Ordered losartan 50 mg oral tablet 1 tablet, By Mouth, Daily, # 30 tablet, 5 Refills, Maintenance, 12/02/20 5:43:00 EDT, [facility]/pharmacy #[id number], 157.48, cm, 11/11/20 9:37:00 EDT, [...] capsule, 1 Refills, Maintenance, 01/27/21 10:19:00 EDT, [facility]/pharmacy #4471, 157.48, cm, 01/27/21 9:30:00 EDT, Height Start Date: 01/27/21 Stop Date: 03/28/21 Status: Ordered Topamax 25 mg oral tablet 2 tablet = 50 mg, By Mouth, Daily at bedtime, # 60 tablet, 6 Refills, Maintenance, 04/21/20 13:35:00 EST, Tablet, [facility]/pharmacy #4471, 157.48, cm, 03/04/20 14:14:00 EST, Height Start Date: 04/21/20 Stop Date: 11/17/20 Status: Ordered Trulicity Pen 1.5 mg/0.5 mL subcutaneous solution 0.5 mL = 1.5 mg, Subcutaneous Injection, Every Saturday, for 90 days, # 7.5 mL, 3 Refills, Hard Stop 12/08/21 15:26:00 EDT, 12/13/20 15:26:00 EDT, Solution, [facility], E11.65, 157.48, cm, 04/27/19 15:43:00 EST, Height Start Date: 12/13/20 Stop Date: 12/08/21 Status: Ordered Trulicity Pen 1.5 mg/0.5 mL subcutaneous solution 0.5 mL = 1.5 mg, Subcutaneous Injection, Every Saturday, E11.9, # 7.5 mL, 3 Refills, Maintenance, 12/08/21 15:26:00 EDT, Solution, [facility], E11.65, 157.48, cm, 03/04/20 14:14:00 EST, Height Start Date: 12/08/21 Stop Date: 12/03/22 Status: Ordered Vascepa 1 g oral capsule 2 capsule = 2 Gm, By Mouth, 2 times a day, # 360 capsule, 5 Refills, Maintenance, 05/03/20 15:59:00EST, Capsule, [facility]/pharmacy #[id number], 157.48, cm, 03/04/20 14:14:00 EST, [...] Active *Briana Garces, Care Coor dinator, ICP [phone](Confirmed) Active Reflux(Confirmed) Active Hepatic steatosis(Confirmed) Active -EF [...]
--- OUTSIDE RECORDS SUMMARY | 2024-01-23 14:35 | XMS_ITS | Continuity of Care Document ---
Author Organization [facility] Address [address] [place] [address]- Care Team Providers Care Director Cpg Name Role Phone Rose Mary FISCHER, Sergo Cole Primary Care Physician Encounter [facility] Date(s): 09/25/22 - 10/25/22 [facility] [address], [place] [address] Allergies, Adverse Reactions, Alerts Substance [...] 1Result Comment: [01/22/2017] [facility] [id number] 2Admin Note: vis given dated 10/24/12 3Admin Note: vis given dated 10/01/11 4Admin Note: vis 5Admin Note: vis 6Admin Note: vis given: 10/27/2006 7Admin Note: vis given : 10/10/2005 8Admin Note: vis given 2007- Medications acetaminophen 500 mg oral tablet 2 tablet, By Mouth, 4 times a day, PRN NEEDED FOR PAIN, # 100 tablet, 1 Refills, Acute, 219:52:00 EDT, [facility], 157.48, cm, 10/11/20 9:39:00 EDT, Height Start Date: 10/26/20 Status: Ordered Alcohol Pads See Instructions, # 200 each, Refills 11, Tot. Refills 11, Maintenance, To cleans before injections5 x a day., 03/03/21 9:18:00 EST, E11.65, Compound, 157.48, cm, 03/01/21 15:54:00 EST, Height Start Date: 03/03/21 Stop Date: 02/26/22 Status: Ordered Zghoj-Sesllc-Afnu 300 mg oral capsule 1 capsule, By Mouth, 2 times a day, NOT COVERED., # 60 capsule, 11 Refills, [facility], 157.48, cm, 01/27/21 9:30:00 EDT, Height Start Date: 01/30/21 Status: Ordered ammonium lactate 12% topical cream 1 application, Topically, 2 times a day, # 385 Gm, 3 Refills, Maintenance, 08/24/22 14:16:00 EDT, Cream, [facility]/pharmacy #[id number], Partial fill upon patient request [...] 4 Refills, Maintenance, 08/24/22 14:16:00 EDT, [facility]/pharmacy #4471, 30, APPLY TO AFFECTED AREA [...] Gm, 6 Refills, Maintenance, 08/24/22 14:16:00 EDT, [facility]/pharmacy #4471, 30, APPLY TOPICALLY 4 TIMES A DAY NOT TO EXCEED 16 GRAMS/DAY/SIN... Start Date: 08/24/22 Status: Ordered docusate sodium 100 mg oral capsule See Instructions, TAKE 1 CAPSULE BY MOUTH TWICE A DAY NEEDED FOR CONSTIPATION, # 60 capsule, 5 Refills, Maintenance, 07/03/22 18:20:00 EDT, [facility]/pharmacy #[id number], Duplicate Rx. Original sent 07/03/22 with routing error. Re- sending to pharmacy, 157.5, cm... Start Date: 07/03/22 Status: Ordered docusate sodium 100 mg oral capsule 100 mg, 1, capsule, By Mouth, 2 times a day, PRN, # 60 capsule, Refills 5, Tot. Refills 5, Maintenance, as needed for constipation, 06/12/22 9:52:00 EDT, Route to Pharmacy Electronically, [facility]/pharmacy #[id number], Partial fill upon patient request [...] Refills, Maintenance, 09/20/22 9:36:00 EDT, [facility], 30, INHALE 1 PUFF BY MOUTH TWICE A DAY, 157.5, cm, 09/05/22 16:22:00 EDT, Height Start Date: 09/20/22 Status: Ordered fluticasone 50 mcg/inh nasal spray See Instructions, SPRAY 1 SPRAY INTO EACH NOSTRIL EVERY DAY, # 16 mL, 5 Refills, Maintenance, 07/05/22 16:20:00 EDT, [facility], 30, SPRAY 1 SPRAY INTO EACH NOSTRIL [...] mL, 6 Refills, Maintenance, 06/12/22 10:00:00 EDT, [facility], Partial fill upon patie... Start Date: 06/12/22 Status: Ordered Lactaid 3000 units oral tablet 3 tablet = 9,000 units, By Mouth, 3 times a day with meals, # 120 tablet, 5 Refills, Maintenance, 08/17/22 9:03:00 EDT, Tablet, [facility]/pharmacy #[id number], Partial fill upon patient request if the prescription is for a schedule II opioid drug., 157.5, cm, ... Start Date: 08/17/22 Stop Date: 02/13/23 Status: Ordered Lantus Solostar Pen 100 units/mL subcutaneous solution See Instructions, Take 45 units in the AM and 45 units daily at bedtime. E11.9., # 30 mL, 9 Refills, Maintenance, 06/19/22 16:50:00 EDT, [facility], Partial fill upon patient requestif the prescription is for a schedule II opioid lucas... Start Date: 06/19/22 Status: Ordered lidocaine 5% topical ointment See Instructions, APPLY TO AFFECTED AREA 3 TIMES A DAY, # 35.44 Gm, 11 Refills, Maintenance, 02/28/22 8:51:00 EST, [facility]/pharmacy #[id number], 30, APPLY TO AFFECTED AREA 3 TIMES A DAY, 157.5, cm, 02/21/22 14:36:00 EST, Height Start Date: 02/28/22 Status: Ordered lidocaine 5% topical ointment See Instructions, APPLY TO AFFECTED AREA 3 TIMES A DAY, # 35.44 Gm, 11 Refills, Maintenance, 07/03/22 18:22:00 EDT, [facility]/pharmacy #[id number], 30, Duplicate Rx. Original sent [...] Date: 10/18/22 Stop Date: 01/16/23 Status: Ordered [place]-3 Fish Oil 1000 mg oral capsule 1 capsule = 1,000 mg, By Mouth, Daily, # 90 capsule, 1 Refills, Maintenance, 08/01/22 10:17:00 EDT,[facility]/pharmacy #[id number], Partial fill upon patient request [...] 06/14/22 16:40:00 EDT, EC Tablet, [facility]/pharmacy #[id number], Partial fill upon patient request if the prescription is for a schedule II opioid drug., 157.5,... Start Date: 06/14/22 Status: Ordered oxyCODONE 10 mg oral tablet TAKE 1/2 TAB EVERY 12 HOURS NEEDED FOR SEVERE NECK/LOW BACK PAIN. DO NOT FILL UNTIL 05/01/21 Start Date: 06/02/21 Status: Ordered Pen [place], 31 G x 8 mm BD Ultra [...] 08/30/22 13:31:00 EDT, Route to Pharmacy Electronically, [facility]/pharmacy #[id number], Partial fill upon patient request if the prescription is for a schedule II opi... Start Date: 08/30/22 Stop Date: 01/27/23 Status: Ordered senior cytogenetics laboratory director grabber tool senior cytogenetics laboratory director grabber tool, See Instructions, # 1 each, Refills 0, Tot. Refills 0, Maintenance, please dispense one senior cytogenetics laboratory director grabber tool, ICD 10 M54.6, length of use 1 month, 04/12/22 10:13:00 EST, Supply Start Date: 04/12/22 Status: Ordered replacement hospital bed with mattress replacement hospital bed with mattress, See Instructions, # 1 each, Refills 0, Tot. 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, length of use lifetime, 06/20/22 14:20:00 EDT, Supply Start Date: 06/20/22 Status: Ordered simethicone 125 mg oral tablet, chewable 1 tablet = 125 mg, Chew, 4 times a day, PRN gas pain, for 21 days, # 48 tablet, 4 Refills, Acute 12/07/22 14:16:00 EDT, 08/24/22 14:16:00 EDT, Chew Tablet, [facility]/pharmacy #[id number], Partial fill upon patient request [...] 14:36:00 EDT, 04/19/22 14:36:00 EST, [facility]/pharmacy #[id number], 157.5, cm, 04/11/22 10:50:00 EST, Height Start Date: 04/19/22 Stop Date: 12/15/22 Status: Ordered Topamax 25 mg oral tablet 3 tablet = 75 mg, By Mouth, Daily at bedtime, # 90 tablet, 6 Refills, Maintenance, 06/26/22 10:14:00 EDT, Tablet, [facility], 157.5, cm, 06/21/22 8:43:00 EDT, Height Start Date: 06/26/22 Stop Date: 01/22/23 Status: Ordered Trulicity Pen 3 mg/0.5 mL subcutaneous solution See Instructions, INJECT 0.5ML SUBCUTANEOUSLY EVERY WEEK, ROTATE INJECTION SITES, # 2 mL, 5 Refills, 01/23/22 16:33:00 EDT, [facility], 157.5, cm, 01/20/22 13:38:00 EDT, Height Start Date: 01/23/22 Status: Ordered Trulicity Pen 4.5 mg/0.5 mL subcutaneous solution See Instructions, 4.5 mg Subcutaneous Infusion weekly. E11.9, # 4 each, 5 Refills, Maintenance, 06/19/22 17:00:00 EDT, [facility], Partial fill upon patient request if the prescription is for a schedule II opioid drug., 157.5, cm, ... Start Date: 06/19/22 Status: Ordered valACYclovir 500 mg oral tablet 1, tablet, By Mouth, 2 times a day, PRN, # 6 tablet, Refills 2, Maintenance, NEEDED FOR OUTBREAKS, 07/11/22 16:11:00 EDT, Route to Pharmacy Electronically, [facility], 157.5, cm, 06/21/22 8:43:00 EDT, Height Start Date: 07/11/22 Stop Date: 07/14/22 Status: Ordered Vascepa 1 g oral capsule 2 capsule = 2 Gm, By Mouth, 2 times a day, # 360 capsule, 5 Refills, Maintenance, 05/03/20 15:59:00EST, Capsule, [facility]/pharmacy #[id number], 157.48, cm, 03/04/20 14:14:00 EST, Height Start Date: 05/03/20 Status: Ordered Ventolin HFA 108 mcg/inh inhalation aerosol with adapter 1 puffs, Inhalation, 4 times a day, PRN NEEDED FOR WHEEZING, # 18 each, 0 Refills, Maintenance, 09/17/22 15:25:00 EDT, [facility], 157.5, cm, 09/05/22 16:22:00 EDT, Height Start [...] 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 *Briana Garces, Education Specialist, ICP [phone] Confirmed Active PTSD (post-traumatic stress disorder) Confirmed [...] Name: Rose Mary FISCHER, Sergo Cole Position: [facility] Physician - Primary Care Member Role: PCP Address: Address: [address] [facility] [place] [address]- Name: Lizbeth Collins [place] Position: [facility] RN Member Role: Primary Care Nurse Care Team Related Persons Name: LB HENLEY Address: [address] [place] [address] Name: LB HENLEY Address: home [address] [address] Name: MILENA CUBA Address: home [address] [place] [address]
--- OUTSIDE RECORDS SUMMARY | 2024-01-23 14:35 | XMS_ITS | Continuity of Care Document ---
Author Organization [facility] Address [address] [place] [address]- Care Team Providers Care Crime Scene Specialist Name Role Phone Sergo Bazzi MD Primary Care Physician [place] [facility] [place] - 01/18/22 [facility] [address], [place] [address] Attending Physician: Sergo Bazzi MD Admitting Physician: [...] Given 1Result Comment: [01/22/2017] [facility] [id number] 2Admin Note: vis given dated 10/24/12 3Admin Note: vis given dated 10/01/11 4Admin Note: vis 5Admin Note: vis 6Admin Note: vis given: 10/27/2006 7Admin Note: vis given : 10/10/2005 8Admin Note: vis given 2007- Medications acetaminophen 500 mg oral tablet 2 tablet, By Mouth, 4 times a day, PRN NEEDED FOR PAIN, # 100 tablet, 1 Refills, Acute, 219:52:00 EDT, [facility], 157.48, cm, 10/11/20 9:39:00 EDT, Height Start Date: 10/26/20 Status: Ordered Alcohol Pads See Instructions, # 200 each, Refills 11, Tot. Refills 11, Maintenance, To cleans before injections5 x a day., 03/03/21 9:18:00 EST, E11.65, Compound, 157.48, cm, 03/01/21 15:54:00 EST, Height Start Date: 03/03/21 Stop Date: 02/26/22 Status: Ordered Jhgzf-Cvpvge-Xurh 300 mg oral capsule 1 capsule, By Mouth, 2 times a day, NOT COVERED., # 60 capsule, 11 Refills, [facility], 157.48, cm, 01/27/21 9:30:00 EDT, Height Start Date: 01/30/21 Status: Ordered ammonium lactate 12% topical cream 1 application, Topically, 2 times a day, # 385 Gm, 5 Refills, Maintenance, 09/08/21 9:35:00 EDT, Cream, [facility]/pharmacy #[id number], Partial fill upon patient request if the [...] tablet, 11 Refills, Maintenance, 08/19/20 16:26:00 EDT, [facility] 89543, 30, TAKE 1 TABLET BY MOUTH DAILY. [...] 11/10/21 9:17:00 EDT, [id number] fill upon patient request [...] 16 mL, 5 Refills, 12/29/21 15:10:00 EDT[id number], USE 1 SPRAY IN EACH NOSTRIL EVERY DAY, 157.5, cm, 11/29/21 15:59:00 EDT, Height Start Date: 12/29/21 Status: Ordered Lantus Solostar Pen 100 units/mL subcutaneous solution See Instructions, Take 80 units via Subcutaneous Infusion Daily at bedtime. E11.9., # 30 mL, 9 Refills, Maintenance, 08/24/21 9:25:00 EDT, [facility], Partial fill [...] # 35.44 Gm, 11 Refills, [facility], 30, APPLY TO AFFECTED AREA 3 TIMES [...] Stop 05/29/22 20:00:00 EST, 11/16/21 8:13:00 EDT, [facility]/pharmacy #[id number], 157.5, cm, 11/07/21 10:51:00 EDT, Height Start Date: 11/16/21 Stop Date: 05/29/22 Status: Ordered Topamax 25 mg oral tablet 3 tablet = 75 mg, By Mouth, Daily at bedtime, # 90 tablet, 6 Refills, Maintenance, 11/16/21 8:12:00EDT, Tablet, [facility]/pharmacy #[id number], 157.5, cm, 11/07/21 10:51:00 EDT, Height Start Date: 11/16/21 Stop Date: 06/14/22 Status: Ordered Trulicity Pen 3 mg/0.5 mL subcutaneous solution See Instructions, INJECT 0.5ML SUBCUTANEOUSLY EVERY WEEK, ROTATE INJECTION SITES, # 2 mL, 5 Refills, 08/24/21 9:20:00 EDT, [facility], 157.48, cm, 08/24/21 8:03:00 EDT, Height Start Date: 08/24/21 Status: Ordered Vascepa 1 g oral capsule 2 capsule = 2 Gm, By Mouth, 2 times a day, # 360 capsule, 5 Refills, Maintenance, 05/03/20 15:59:00EST, Capsule, 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
--- OUTSIDE RECORDS SUMMARY | 2024-01-23 14:35 | XMS_ITS | Continuity of Care Document ---
Author Organization [facility] Address [address] [place] [address]- Care Team Providers Care Glaucoma Specialist Name Role Phone Sergo Bazzi MD Primary Care Physician [phone] [place] [facility] [facility] [address] [place] [address]- Attending Physician: Dinesh Pritchett MD Admitting Physician: Dinseh Pritchett MD Referring Physician: Sergo Bazzi MD Allergies, Adverse Reactions, Alerts Substance Reaction Severity Status morphine ITCH DIARRHEA Active cortisone Active Neurontin mental status changes Active Vioxx heart problems Active trazodone DEPRESSION Active Motrin eat lining of stomach Active Naprosyn gi upset Active CeleBREX gi upset Active Ultram nausea, vomit Active Latex powder [...] (oldterm) 8 01/21/08 Given 1Result Comment: [01/22/2017] [facility] [id number] 2Admin Note: vis given dated 10/24/12 3Admin Note: vis given dated 10/01/11 4Admin Note: vis 5Admin Note: vis 6Admin Note: vis given: 10/27/2006 7Admin Note: vis given : 10/10/2005 8Admin Note: vis given 2007- Medications acetaminophen 500 mg oral tablet 2 tablet, By Mouth, 4 times a day, PRN NEEDED FOR PAIN, # 100 tablet, 1 Refills, Acute, 219:52:00 EDT, [facility], 157.48, cm, 10/11/20 9:39:00 EDT, Height Start Date: 10/26/20 Status: Ordered Alcohol Pads See Instructions, # 200 each, Refills 11, Tot. Refills 11, Maintenance, To cleans before injections5 x a day., 03/03/21 9:18:00 EST, E11.65, Compound, 157.48, cm, 03/01/21 15:54:00 EST, Height Start Date: 03/03/21 Stop Date: 02/26/22 Status: Ordered Ogxha-Dexzjo-Jsyt 300 mg oral capsule 1 capsule, By Mouth, 2 times a day, NOT COVERED., # 60 capsule, 11 Refills, [facility], 157.48, cm, 01/27/21 9:30:00 EDT, Height Start Date: 01/30/21 Status: Ordered ammonium lactate 12% topical cream 1 application, Topically, 2 times a day, # 385 Gm, 5 Refills, Maintenance, 09/08/21 9:35:00 EDT, Cream, [facility]/pharmacy #3931, Partial fill upon patient request if the [...] tablet, 11 Refills, Maintenance, 08/19/20 16:26:00 EDT, [facility] ST[facility] 27881, 30, TAKE 1 TABLET BY MOUTH DAILY. [...] 11/10/21 9:17:00 EDT, [facility] to Pharmacy Electronically, [facility] [...] # 16 mL, 5 Refills, 12/29/21 15:10:00 EDT,[facility]/pharmacy #[id number], USE 1 SPRAY IN EACH NOSTRIL EVERY DAY, 157.5, cm, 11/29/21 15:59:00 EDT, Height Start Date: 12/29/21 Status: Ordered Lantus Solostar Pen 100 units/mL subcutaneous solution See Instructions, Take 80 units via Subcutaneous Infusion Daily at bedtime. E11.9., # 30 mL, 9 Refills, Maintenance, 08/24/21 9:25:00 EDT, [facility], Partial fill upon patient request if the prescription is for a schedule II opioid d... Start Date: 08/24/21 Status: Ordered Lantus Solostar Pen 100 units/mL subcutaneous solution See Instructions, Decreased to 60U once a day as of 12/29/19, # 30 mL, 9 Refills, Maintenance, 09/20/20 15:10:00 EDT, [facility], NEEDS 30 ML FOR 30 DAY SUPPLY E11.9, 157.48, cm, 05/31/20 9:41:00 EST, Height Start Date: 09/20/20 Status: Ordered lidocaine 5% topical ointment See Instructions, APPLY TO AFFECTED AREA 3 TIMES A DAY, # 35.44 Gm, 11 Refills, [facility], 30, APPLY TO AFFECTED AREA 3 TIMES [...] Stop 09/16/22 11:02:00 EDT, 01/19/22 11:02:00 EDT, [facility]/pharmacy #[id number], 157.5, cm, 01/09/22 10:18:00 EDT, Height Start Date: 01/19/22 Stop Date: 09/16/22 Status: Ordered Topamax 25 mg oral tablet 3 tablet = 75 mg, By Mouth, Daily at bedtime, # 90 tablet, 6 Refills, Maintenance, 01/19/22 10:34:00 EDT, Tablet, [facility]/pharmacy #[id number], 157.5, cm, 01/09/22 10:18:00 EDT, Height Start Date: 01/19/22 Stop Date: 08/17/22 Status: Ordered Trulicity Pen 3 mg/0.5 mL subcutaneous solution See Instructions, INJECT 0.5ML SUBCUTANEOUSLY EVERY WEEK, ROTATE INJECTION SITES, # 2 mL, 5 Refills, 01/23/22 16:33:00 EDT, [facility], 157.5, cm, 01/20/22 13:38:00 EDT, [...] 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 No wall motion abnormalities, Does [...] Rose Mary FISCHER, Sergo Cole Address: Address: [address] [place] [address] Adult [place], [place] [address]
--- OUTSIDE RECORDS SUMMARY | 2024-01-23 14:35 | XMS_ITS | Continuity of Care Document ---
Author Organization [facility] Address [address] [place] [address]- Care Team Providers Care It Security Engineer Name Role Phone Rose Mary FISCHER, Sergo Cole Primary Care Physician Encounter [facility] [place] Date(s): 11/14/20 - 12/14/20 [facility] [address], [place] [address] Allergies, Adverse Reactions, Alerts [...] 8 01/21/08 Given 1Result Comment: [01/22/2017] [facility] [id number] 2Admin Note: vis given dated 10/24/12 3Admin Note: vis given dated 10/01/11 4Admin Note: vis 5Admin Note: vis 6Admin Note: vis given: 10/27/2006 7Admin Note: vis given : 10/10/2005 8Admin Note: vis given 2007- Medications acetaminophen 500 mg oral tablet 2 tablet, By Mouth, 4 times a day, PRN NEEDED FOR PAIN, # 100 tablet, 1 Refills, Acute, 219:52:00 EDT, [facility], 157.48, cm, 10/11/20 9:39:00 EDT, Height Start [...] 5 Refills, Maintenance, 06/20/20 10:55:00 EDT, Cream, [facility]/pharmacy #[id number], [...] Refills, Maintenance, 06/21/20 17:44:00 EDT, [facility], 157.48, cm, 05/31/20 9:41:00 EST, Height Start Date: 06/21/20 Status: Ordered atorvastatin 80 mg oral tablet 1 tablet = 80 mg, By Mouth, Daily, replaces Simvastatin, # 90 tablet, 4 Refills, Maintenance, 02/23/20 11:05:00 EST, Tablet, [facility]/pharmacy #[id number], replaces simvastatin, 157.48, cm, 01/25/20 15:23:00 EDT, Height Start Date: 02/23/20 Stop Date: 05/18/21 Status: Ordered BD ultra fine III pen needles [id number] BD ultra fine III pen needles [id number], See Instructions, # 360 each, Refills 3, [...] tablet, 11 Refills, Maintenance, 08/19/20 16:26:00 EDT, [facility] ST[facility] 75683, 30, TAKE 1 TABLET BY MOUTH DAILY. [...] 6 Refills, Maintenance, 09/02/20 12:50:00 EDT, Gel, [facility]/pharmacy #[id number], 157.48, cm, 05/31/20 [...] 5 Refills, Maintenance, 01/07/20 14:00:00 EDT, Tablet, [facility]/pharmacy #[id number], 157.48, cm, 12/29/19 [...] Gm, 5 Refills, Maintenance, 06/27/20 15:14:00 EDT, [facility]/pharmacy #[id number], 1 sprays Nares, [...] 3, Maintenance, use up to check blood [id number] per day. 90 DAY SUPPLY, E11.9, 02/29/20 [...] 0 Refills, Maintenance, 08/26/20 20:44:00 EDT, Film, [facility]/pharmacy #[id number], Partial fill upon patient request if the prescription is for a schedule II opioid drug., 1 patch Topically Daily, 157.48, cm, 05/31/20 9:41:0... Start Date: 08/26/20 Status: Ordered losartan 50 mg oral tablet 1 tablet, By Mouth, Daily, # 30 tablet, 5 Refills, Maintenance, 12/02/20 5:43:00 EDT, [facility]/pharmacy #[id number], 157.48, cm, 11/11/20 9:37:00 EDT, [...] request Start Date: 02/16/19 Status: Ordered Pen Stanton, 31 G x 8 mm BD Ultra [...] 0 Refills, Maintenance, 10/24/20 8:13:00 EDT, [facility], 157.48, cm, 10/11/20 9:39:00 EDT, Height Start Date: 10/24/20 Stop Date: 10/31/20 Status: Ordered Topamax 25 mg oral tablet 2 tablet = 50 mg, By Mouth, Daily at bedtime, # 60 tablet, 6 Refills, Maintenance, 04/21/20 13:35:00 EST, Tablet, [facility]/pharmacy #[id number], 157.48, cm, 03/04/20 [...] Maintenance, 12/08/21 15:26:00 EDT, Solution, [facility], E11.65, 157.48, cm, 03/04/20 14:14:00 EST, Height Start Date: 12/08/21 Stop Date: 12/03/22 Status: Ordered valACYclovir 500 mg oral tablet See Instructions, TAKE 1 TABLET BY MOUTH TWICE A DAY FOR 3 DAYS NEEDED FOR OUTBREAK, # 6 tablet,Refills 2, Acute, Instructions Replace Required Details, Route to Pharmacy Electronically, [facility], 157.48, cm, 05/31/20 9:41:00 EST, Height Start Date: 06/27/20 Status: Ordered Vascepa 1 g oral capsule 2 capsule = 2 Gm, By Mouth, 2 times a day, # 360 capsule, 5 Refills, Maintenance, 05/03/20 15:59:00EST, Capsule, [facility]/pharmacy #[id number], 157.48, cm, 03/04/20 [...] Active *Briana Garces, Care Coor dinator, ICP [phone](Confirmed) Active Reflux(Confirmed) Active Hepatic steatosis(Confirmed) Active -EF [...]
--- OUTSIDE RECORDS SUMMARY | 2024-01-23 14:35 | XMS_ITS | Continuity of Care Document ---
Author Organization [facility] Address [address] [place] [address]- Care Team Providers Care Hip Hop Performers Name Role Phone Rose Mary FISCHER, Sergo Cole Primary Care Physician [phone] [place] [facility] [place] 10/31/23 - 11/30/23 [facility] [address] [place], [place] [phone] Allergies, Adverse Reactions, Alerts Substance Reaction Severity Status morphine ITCH DIARRHEA Active Motrin eat lining of stomach Active Ultram nausea, vomit Active trazodone DEPRESSION Active cortisone Active Naprosyn [...] (oldterm) 8 01/21/08 Given 1Result Comment: [01/22/2017] [facility] [id number] 2Admin Note: vis given dated 10/24/12 3Admin [...] 100 tablet, 1 Refills, Acute, 219:52:00 EDT, [facility], 157.48, cm, 10/11/20 9:39:00 EDT, Height Start [...] Date: 10/30/23 Stop Date: 10/24/24 Status: Ordered Nudpb-Nqiezr-Bjxn 300 mg oral capsule 1 capsule, By Mouth, 2 times a day, NOT COVERED., # 60 capsule, 11 Refills, [facility] 94[facility], 157.48, cm, 01/27/21 9:30:00 EDT, Height Start Date: 01/30/21 Status: Ordered ammonium lactate 12% topical cream 1 application, Topically, 2 times a day, # 385 Gm, 1 Refills, Maintenance, 12/22/22 14:16:00 EDT, Cream, [facility]/pharmacy #[id number], Partial fill upon patient request if the prescription is for a schedule IIopioid drug., 1 application Topically 2 times a day... Start Date: 12/22/22 Stop Date: 02/20/23 Status: Ordered Artificial Tears preserved solution 1 drops, Eyes, Both, 2 times a day, PRN for dry eyes, # 15 mL, 0 Refills, Maintenance, 09/10/23 8:57:00 EDT, Solution, [facility]/pharmacy #[id number], Partial fill upon patient request if the prescription is fora schedule II opioid drug., 1 drops Eyes, Both 2 ti... Start Date: 09/10/23 Status: Ordered atorvastatin 80 mg oral tablet See Instructions, TAKE 1 TABLET BY MOUTH DAILY. INSTR:REPLACES SIMVASTATIN, # 90 tablet, 1 Refills,Maintenance, 11/06/23 7:48:00 EDT, [facility], 157, cm, 10/18/23 11:52:00 EDT, Height, 84, kg,07/24/23 12:52:00 EDT, Dry Weight Start Date: 11/06/23 Status: Ordered atorvastatin 80 mg oral tablet 1 tablet, By Mouth, Daily, INSTR:REPLACES SIMVASTATIN, # 90 tablet, 1 Refills, Maintenance, 05/22/23 12:07:00 EST, [facility], 157, cm, 05/06/23 14:23:00 EST, Height, 88.3, kg, 04/16/23 11:33:00EST, Dry Weight Start Date: 05/22/23 Status: Ordered BD Single Use Swab 70% topical pad See Instructions, TO CLEANS BEFORE INJECTIONS 5 X A DAY., # 150 Unknown, 11 Refills, Maintenance, 08/16/22 10:15:00 EDT, [facility], 30, TO CLEANS [...] tablet, 5 Refills, Maintenance, 11/06/23 17:25:00 EDT, [facility]/pharmacy #[id number], 1 tablet By [...] 02/07/24 10:46:00 EST, Route to Pharmacy Electronically, [facility]/pharmacy #[id number], Partial fill... Start Date: 02/07/24 Stop Date: 07/06/24 Status: Ordered diazepam 5 mg oral tablet 5 mg, 1, tablet, By Mouth, 2 times a day, for 30 days, TAKE 1 TABLET BY MOUTH TWICE A DAY., # 60 tablet, Refills 4, Tot. Refills 4, Acute 12/03/24 10:46:00 EDT, 07/06/24 10:46:00 EDT, Route to Pharmacy Electronically, [facility]/pharmacy #[id number], Partial fill... Start Date: 07/06/24 Stop Date: 12/03/24 Status: Ordered diazepam 5 mg oral tablet 5 mg, 1, tablet, By Mouth, 2 times a day, for 30 days, TAKE 1 TABLET BY MOUTH TWICE A DAY., # 60 tablet, Refills 4, Tot. Refills 4, Acute 02/07/24 10:46:00 EST, 09/10/23 10:46:00 EDT, Route to Pharmacy Electronically, [facility]/pharmacy #[id number], Partial fill... Start Date: 09/10/23 Stop Date: 02/07/24 Status: Ordered diclofenac 1% topical gel See Instructions, APPLY TOPICALLY 4 TIMES A DAY NOT TO EXCEED 16 GRAMS/DAY/SINGLE JOINT OF LOWER EXTREMITIES, # 100 Gm, 4 Refills, Maintenance, 09/10/23 8:56:00 EDT, [facility]/pharmacy #[id number], 30, APPLY TOPICALLY [...] capsule, 5 Refills, Maintenance, 07/03/22 18:20:00 EDT, [facility]/pharmacy #[id number], Duplicate Rx. Original sent 07/03/22 with routing error. Re- sending to pharmacy, 157.5, cm... Start Date: 07/03/22 Status: Ordered esomeprazole 40 mg oral enteric coated capsule 1 capsule = 40 mg, By Mouth, Daily, # 90 capsule, 3 Refills, Maintenance, 09/25/23 16:33:00 EDT, [facility]/pharmacy #[id number], Partial fill upon patient request if the prescription is for a schedule II opioid drug., 157, cm, 09/25/23 16:26:00 EDT, Height, 84, k... Start Date: 09/25/23 Status: Ordered esomeprazole 40 mg oral enteric coated capsule 1 capsule = 40 mg, By Mouth, Daily, # 90 capsule, 1 Refills, Maintenance, 09/02/23 16:20:00 EDT, [facility]/pharmacy #[id number], Partial fill upon [...] each, 0 Refills, Maintenance, 11/06/23 17:54:00 EDT, [facility]/pharmacy #[id number], 30, 1 puffs Inhalation 2 times a day, 157, cm, 10/18/23 11:52:00 EDT, Height, 84, kg,07/24/23 12:52:00 EDT, Dry Weight Start Date: 11/06/23 Status: Ordered fluticasone 50 mcg/inh nasal spray See Instructions, SPRAY 1 SPRAY INTO EACH NOSTRIL EVERY DAY, # 16 mL, 5 Refills, Maintenance, 11/06/23 17:54:00 EDT, [facility]/pharmacy #[id number], 30, SPRAY 1 [...] tablet, 4 Refills, Maintenance, 11/06/23 17:54:00 EDT, [facility]/pharmacy #[id number], 157, cm, 10/18/23 [...] mL, 6 Refills, Maintenance, 07/24/23 13:20:00 EDT, [facility], Partial fill upon patient request if the prescription is for a schedule II opioid drug., 157, cm, 07/24/23 12:52:00... Start Date: 07/24/23 Status: Ordered hydrOXYzine hydrochloride 25 mg oral tablet 1 tablet = 25 mg, By Mouth, 2 times a day, as needed for anxiety, # 60 tablet, 4 Refills, Soft Stop, 02/07/24 10:47:00 EST, Tablet, [facility]/pharmacy #[id number], Partial fill upon [...] 02/07/24 10:47:00 EST, 09/10/23 10:47:00 EDT, Tablet, [facility]/pharmacy #[id number], Partial fillupon patient request if the prescription is for a s... Start Date: 09/10/23 Stop Date: 02/07/24 Status: Ordered lactase 3000 u oral tablet 3 tablet, By Mouth, 3 times a day with meals, X30 DAYS., # 120 tablet, 3 Refills, Maintenance, 11/06/23 7:51:00 EDT, [facility]/pharmacy #[id number], 157, cm, 10/18/23 11:52:00 EDT, Height, 84, kg, 07/24/23 12:52:00 EDT, Dry Weight Start Date: 11/06/23 Status: Ordered Lantus Solostar Pen 100 units/mL subcutaneous solution See Instructions, Take 45 units in the AM and 45 units daily at bedtime. E11.9., # 30 mL, 9 Refills, Maintenance, 07/24/23 13:18:00 EDT, [facility], Partial fill upon patient requestif the prescription is for a schedule II opioid lucas... Start Date: 07/24/23 Status: Ordered levothyroxine 0.1 mg oral tablet 1 tablet = 100 mcg, By Mouth, Daily, # 30 tablet, 11 Refills, Maintenance, 07/25/23 8:52:00 EDT, [facility]/pharmacy #[id number], stop the 112mcg dose, 157, cm, 07/24/23 12:52:00 EDT, Height, 84, kg, 07/24/23 12:52:00 EDT, Dry Weight Start Date: 07/25/23 Stop Date: 07/19/24 Status: Ordered lidocaine 5% topical ointment See Instructions, APPLY TO AFFECTED AREA 3 TIMES A DAY, # 35.44 Gm, 3 Refills, Maintenance, 11/06/23 7:51:00 EDT, [facility]/pharmacy #[id number], 30, Duplicate Rx. [...] 2 Refills, Maintenance, 11/05/23 18:01:00 EDT, Capsule, [facility]/pharmacy #[id number], Partial fill upon patient request if the prescription is for a schedule II opioid drug., 157, c... Start Date: 11/05/23 Status: Ordered mirtazapine 15 mg oral tablet 1 tablet = 15 mg, By Mouth, Daily at bedtime, # 30 tablet, 4 Refills, Maintenance, 02/07/24 10:47:00 EST, Tablet, [facility]/pharmacy #[id number], Partial fill upon [...] 02/07/24 10:47:00 EST, 09/10/23 10:47:00 EDT, Tablet, [facility]/pharmacy #[id number], Partial fill upon patient request if the prescription is for a schedule II opioid dr... Start Date: 09/10/23 Stop Date: 02/07/24 Status: Ordered Murine Ear Drops 6.5% solution See Instructions, INSTILL 5 DROPS INTO BOTH EARS TWICE DAILY FOR 7 DAYS, # 15 mL, 0 Refills, Maintenance, 09/30/23 10:01:00 EDT, [facility], 30, INSTILL 5 DROPS INTO BOTH EARS TWICE DAILY FOR 7 DAYS, 157, cm, 09/25/23 16:26:00 EDT, Height, 84, kg... Start Date: 09/30/23 Status: Ordered Narcan 4 mg/0.1 mL nasal spray = 4 mg, Nares, Both, Once, # 2 each, 2 Refills, Soft Stop, 02/22/23 14:30:00 EST, [facility]/pharmacy #[id number], Partial fill upon patient request if the prescription is for a schedule II opioid drug., 157.5, cm, 02/19/23 9:20:00 EST, Height Start Date: 02/22/23 Status: Ordered Hampton-3 Fish Oil 1000 mg oral capsule 1 capsule = 1,000 mg, By Mouth, Daily, # 90 capsule, 1 Refills, Maintenance, 08/01/22 10:17:00 EDT,[facility]/pharmacy #[id number], Partial fill upon [...] Refills, Maintenance, 06/14/22 16:40:00 EDT, EC Tablet, [facility]/pharmacy #[id number], Partial fill upon patient request if the prescription is for a schedule II opioid drug., 157.5,... Start Date: 06/14/22 Status: Ordered ondansetron 4 mg oral tablet 1 tablet, By Mouth, Every 8 hours, PRN NEEDED FOR NAUSEA AND VOMITING FOR, # 30 tablet, 2 Refills, Maintenance, 07/03/23 14:40:00 EDT, [facility] 19948, 157, cm, 06/24/23 14:54:00 EDT, Height, 88.3, [...] mL, 11 Refills, Maintenance, 08/23/23 11:17:00 EDT, [facility], Partial fill upon patient request if... Start Date: 08/23/23 Status: Ordered Pen Honor, 31 G x 8 mm BD Ultra [...] 02/07/24 10:47:00 EST, Route to Pharmacy Electronically, [facility]/pharmacy #[id number], Partial fill upon patient request if the prescription is for a schedule II opi... Start Date: 02/07/24 Stop Date: 07/06/24 Status: Ordered QUEtiapine 25 mg oral tablet 25 mg, 1, tablet, By Mouth, 2 times a day, for 30 days, # 60 tablet, Refills 4, Tot. Refills 4, Hard Stop 02/07/24 10:47:00 EST, 09/10/23 10:47:00 EDT, Route to Pharmacy Electronically, [facility]/pharmacy #[id number], Partial fill upon patient request if the pres... Start Date: 09/10/23 Stop Date: 02/07/24 Status: Ordered supervisor cigarette making department grabber tool supervisor cigarette making department grabber tool, See Instructions, # 1 each, Refills 0, Tot. Refills 0, Maintenance, please dispense one supervisor cigarette making department grabber tool, ICD 10 M54.6, length of [...] tablet, 10 Refills, Maintenance, 10/08/23 15:43:00 EDT, [facility], 157, cm, 09/25/23 16:26:00 EDT, Height, 84, kg, 07/24/23 12:52:00 EDT, Dry Weight Start Date: 10/08/23 Status: Ordered valACYclovir 500 mg oral tablet See Instructions, TAKE 1 TABLET BY MOUTH 2 TIMES A DAY,X3 DAYS, NEEDED FOR OUTBREAKS, # 6 tablet, Refills 0, Maintenance, 11/06/23 7:49:00 EDT, Instructions Replace Required Details, Route to Pharmacy Electronically, [facility]19, 157, cm, 10/17... 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 *Briana Garces, Corporate Concierge, ICP [phone] Confirmed Active PTSD (post-traumatic stress disorder) Confirmed [...] Team Personnel Name: Sergo Bazzi MD Position: [facility] Physician - Primary Care Member Role: PCP Address: Address: [address] [place] [id number] Name: Lizbeth Collins [place] Position: [facility] Care Office Staff Member Role: Primary Care Nurse Care Team Related Persons Name: LB HENLEY Address: home [address] [address] Name: LB HENLEY Address: [address] [place] [address] Name: MILENA CUBA Address: home [address] [place] [address]
--- OUTSIDE RECORDS SUMMARY | 2024-01-23 14:35 | XMS_ITS | Continuity of Care Document ---
Author Organization [facility] Address [address] [place] [address]- Care Team Providers Care Outsoles Channel Opener Name Role Phone Rose Mary FISCHER, Sergo Cole Primary Care Physician Encounter [facility] [place] Date(s): 06/19/22 - 07/20/22 [facility] [address] [place], [place] [address] Attending Physician: Not on Staff, Attending MD Allergies, Adverse Reactions, Alerts Substance Reaction Severity Status morphine ITCH DIARRHEA Active cortisone Active Motrin eat lining of stomach Active Ultram nausea, vomit Active trazodone DEPRESSION Active Naprosyn gi upset [...] 1Result Comment: [01/22/2017] [facility] [id number] 2Admin Note: vis given dated 10/24/12 3Admin Note: vis given dated 10/01/11 4Admin Note: vis 5Admin Note: vis 6Admin Note: vis given: 10/27/2006 7Admin Note: vis given : 10/10/2005 8Admin Note: vis given 2007- Medications acetaminophen 500 mg oral tablet 2 tablet, By Mouth, 4 times a day, PRN NEEDED FOR PAIN, # 100 tablet, 1 Refills, Acute, 219:52:00 EDT, [facility], 157.48, cm, 10/11/20 9:39:00 EDT, Height Start Date: 10/26/20 Status: Ordered Alcohol Pads See Instructions, # 200 each, Refills 11, Tot. Refills 11, Maintenance, To cleans before injections5 x a day., 03/03/21 9:18:00 EST, E11.65, [facility], 157.48, cm, 03/01/21 15:54:00 EST, Height Start Date: 03/03/21 Stop Date: 02/26/22 Status: Ordered Ggxzw-Fpzowr-Xsso 300 mg oral capsule 1 capsule, By Mouth, 2 times a day, NOT COVERED., # 60 capsule, 11 Refills, [facility], 157.48, cm, 01/27/21 9:30:00 EDT, Height Start [...] Refills, Maintenance, 03/05/22 13:29:00 EST, [facility], 30, APPLY TO AFFECTED AREA TWICE A [...] Details, Route to Pharmacy Electronically, [facility]/pharmacy... Start Date: 05/02/22 Status: Ordered diclofenac 1% topical gel See Instructions, APPLY TOPICALLY 4 TIMES A DAY NOT TO EXCEED 16 GRAMS/DAY/SINGLE JOINT OF LOWER EXTREMITIES, # 100 Gm, 6 Refills, Maintenance, 03/19/22 9:28:00 EST, [facility], 30, APPLY TOPICALLY 4 TIMES A DAY [...] 06/12/22 9:52:00 EDT, [id number] Partial fill upon patient [...] each, 0 Refills, Maintenance, 03/22/22 16:35:00 EST, [facility], 30, INHALE 1 PUFF BY MOUTH TWICE A DAY, 157.5, cm, 03/22/22 13:25:00 EST, Height Start Date: 03/22/22 Status: Ordered fluticasone 50 mcg/inh nasal spray See Instructions, SPRAY 1 SPRAY INTO EACH NOSTRIL EVERY DAY, # 16 mL, 5 Refills, Maintenance, 07/05/22 16:20:00 EDT, [facility]76, 30, SPRAY 1 SPRAY INTO EACH NOSTRIL [...] 10:00:00 EDT, [facility], Partial fill upon patie... Start Date: 06/12/22 Status: Ordered Lantus Solostar Pen 100 units/mL subcutaneous solution See Instructions, Take 45 units in the AM and 45 units daily at bedtime. E11.9., # 30 mL, 9 Refills, Maintenance, 06/19/22 16:50:00 EDT, [facility], Partial fill upon patient requestif [...] 1 Refills, Maintenance, 07/11/22 15:04:00 EDT, [facility]/pharmacy#[id number], 157.5, cm, 06/21/22 8:43:00 EDT, Height Start Date: 07/11/22 Status: Ordered Lyrica 25 mg oral capsule See Instructions, 1 capsule By Mouth 1 time daily at bedtime. E11.9, # 30 each, 5 Refills, Maintenance, 05/01/22 18:04:00 EST, Capsule, [facility]/pharmacy #[id number], Partial fill upon patient request if the prescription is for a schedule II opioid drug., 157.5,... Start Date: 05/01/22 Status: Ordered mirtazapine 15 mg oral tablet 1 tablet = 15 mg, By Mouth, Daily at bedtime, # 30 tablet, 4 Refills, Maintenance, 05/02/22 14:02:00 EST, Tablet, [facility] [...] 05/01/21 Start Date: 06/02/21 Status: Ordered Pen [place], 31 G x 8 mm BD Ultra [...] II opi... Start Date: 05/02/22 Status: Ordered muffler hand grabber tool muffler hand grabber tool, See Instructions, # 1 each, Refills 0, Tot. Refills 0, Maintenance, please dispense one muffler hand grabber tool, ICD 10 M54.6, length [...] 10:05:00 EDT, 06/12/22 10:05:00 EDT, Chew Tablet, [facility] [...] 14:36:00 EDT, 04/19/22 14:36:00 EST, [facility]/pharmacy #[id number], 157.5, cm, 04/11/22 10:50:00 EST, Height Start Date: 04/19/22 Stop Date: 12/15/22 Status: Ordered Topamax 25 mg oral tablet 3 tablet = 75 mg, By Mouth, Daily at bedtime, # 90 tablet, 6 Refills, Maintenance, 06/26/22 10:14:00 EDT, Tablet, [facility], 157.5, cm, 06/21/22 8:43:00 EDT, Height Start Date: 06/26/22 Stop Date: 01/22/23 Status: Ordered Trulicity Pen 3 mg/0.5 mL subcutaneous solution See Instructions, INJECT 0.5ML SUBCUTANEOUSLY EVERY WEEK, ROTATE INJECTION SITES, # 2 mL, 5 Refills, 01/23/22 16:33:00 EDT, [facility], 157.5, cm, 01/20/22 13:38:00 EDT, Height Start Date: 01/23/22 Status: Ordered Trulicity Pen 4.5 mg/0.5 mL subcutaneous solution See Instructions, 4.5 mg Subcutaneous Infusion weekly. E11.9, # 4 each, 5 Refills, Maintenance, 06/19/22 17:00:00 EDT, [facility], Partial fill upon patient request if the prescription is for a schedule II opioid drug., 157.5, cm, ... 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 No wall motion abnormalities, Does [...] Team Personnel Name: Sergo Bazzi MD Position: [facility] Primary Care Physician Member Role: PCP Address: Address: [address] [place] [address]- Name: Lizbeth Barnhart Position: [facility] RN Member Role: Primary Care Nurse Care Team Related Persons Name: LB HENLEY Address: home [address] [place] [address] Name: LB HENLEY Address: [address] [address] Name: MILENA CUBA Address: home [address] [place] [address] [address] [place] [address]
--- OUTSIDE RECORDS SUMMARY | 2024-01-23 14:35 | XMS_ITS | Continuity of Care Document ---
Author Organization [facility] Address [address] [place] [address]- Care Team Providers Care Customer Quality Specialist Name Role Phone Rose Mary FISCHER, Sergo Cole Primary Care Physician [phone] [place] [facility] [place]): [place]18[place]21 - 06/17/21 [facility] [address] [place] [address]- Attending Physician: Broderick Washburn Admitting Physician: AdmtrBroderick [...] 01/21/08 Given 1Result Comment: [01/22/2017] [facility] [id number] 2Admin Note: vis given dated 10/24/12 3Admin Note: vis given dated 10/01/11 4Admin Note: vis 5Admin Note: vis 6Admin Note: vis given: 10/27/2006 7Admin Note: vis given : 10/10/2005 8Admin Note: vis given 2007- Medications acetaminophen 500 mg oral tablet 2 tablet, By Mouth, 4 times a day, PRN NEEDED FOR PAIN, # 100 tablet, 1 Refills, Acute, 219:52:00 EDT, [facility], 157.48, cm, 10/11/20 9:39:00 EDT, Height Start Date: 10/26/20 Status: Ordered Alcohol Pads See Instructions, # 200 each, Refills 11, Tot. Refills 11, Maintenance, To cleans before injections5 x a day., 03/03/21 9:18:00 EST, E11.65, Compound, 157.48, cm, 03/01/21 15:54:00 EST, Height Start Date: 03/03/21 Stop Date: 02/26/22 Status: Ordered Mbbqx-Zugoie-Ufml 300 mg oral capsule 1 capsule, By Mouth, 2 times a day, NOT COVERED., # 60 capsule, 11 Refills, [facility], 157.48, cm, 01/27/21 9:30:00 EDT, Height Start Date: 01/30/21 Status: Ordered ammonium lactate 12% topical cream 1 application, Topically, 2 times a day, # 385 Gm, 5 Refills, Maintenance, 12/19/20 14:08:00 EDT, Cream, [facility]/pharmacy #[id number], Partial fill upon patient request if the prescription is for a schedule IIopioid drug., 1 application Topically 2 times a day... Start Date: 12/19/20 Stop Date: 06/17/21 Status: Ordered aspirin 81 mg oral delayed release tablet 1 tablet, By Mouth, Daily, # 30 tablet, 11 Refills, Maintenance, 06/21/20 17:44:00 EDT, [facility], 157.48, cm, 05/31/20 9:41:00 EST, Height Start Date: 06/21/20 Status: Ordered atorvastatin 80 mg oral tablet 1 tablet = 80 mg, By Mouth, Daily, replaces Simvastatin, # 90 tablet, 4 Refills, Maintenance, 06/02/21 14:22:00 EST, Tablet, [facility]/pharmacy #4471, replaces simvastatin, 157.48, cm, 06/02/21 14:20:00 EST, Height Start Date: 06/02/21 Stop Date: 08/26/22 Status: Ordered capsaicin 0.075% topical cream See Instructions, APPLY TO AFFECTED AREA TWICE A DAY, # 57 Gm, 4 Refills, [facility], 30, APPLY TO AFFECTED AREA TWICE A DAY, 157.48, cm, 11/11/20 9:37:00 EDT, Height Start Date: 01/02/21 Status: Ordered Daily David oral tablet 1 tablet, By Mouth, Daily, INSTR:TAKE IT 2 HOURS SEPARATE FROM ORLISTAT ([place]), # 30 tablet, 11 Refills, Maintenance, 08/19/20 16:26:00 EDT, [facility], 30, TAKE 1 TABLET BY MOUTH DAILY. [...] EVERY DAY, # 16 mL, 5 Refills, [facility] 26241, 30, USE 1 SPRAY IN EACH NOSTRIL [...] 3, Maintenance, use up to check blood feiohho2s per day. 90 DAY SUPPLY, E11.9, 03/03/21 [...] mL, 3 Refills, Maintenance, 05/09/21 10:32:00 EST, [facility], Partial fill upon pat... Start Date: 05/09/21 Status: Ordered Lantus Solostar Pen 100 units/mL subcutaneous solution See Instructions, Decreased to 60U once a day as of 12/29/19, # 30 mL, 9 Refills, Maintenance, 09/20/20 15:10:00 EDT, [facility], NEEDS 30 ML [...] 0 Refills, Maintenance, 12/19/20 14:08:00 EDT, Film, [facility]/pharmacy #[id number], Partial fill upon patient request if the prescription is for a schedule II opioid drug., 1 patch Topically Daily, 157.48, cm, 11/11/20 9:37:0... Start Date: 12/19/20 Status: Ordered losartan 50 mg oral tablet 1 tablet, By Mouth, Daily, # 30 tablet, 2 Refills, [facility] 77377, 157.48, cm, 05/05/21 9:51:00 EST, Height Start [...] Refills, Maintenance, 05/23/21 13:30:00 EST, EC Tablet, [facility]/pharmacy #[id number], Partial fill upon patient request if the prescription is for a schedule II opioid drug., 157.48... Start Date: 05/23/21 Status: Ordered oxyCODONE 10 mg oral tablet TAKE 1/2 TAB EVERY 12 HOURS NEEDED FOR SEVERE NECK/LOW BACK PAIN. DO NOT FILL UNTIL 05/01/21 Start Date: 06/02/21 Status: Ordered Pen [place], 31 G x 8 mm BD Ultra [...] # 12 tablet, 7 Refills, [facility], 157.48, cm, 05/23/21 13:08:00 EST, Height Start Date: 06/02/21 Status: Ordered tiZANidine 4 mg oral capsule 1 capsule, By Mouth, 3 times a day, # 90 capsule, 3 Refills, [facility], 157.48, cm, 05/23/21 13:08:00 EST, Height Start Date: 06/01/21 Status: Ordered Topamax 25 mg oral tablet 2 tablet = 50 mg, By Mouth, Daily at bedtime, # 60 tablet, 6 Refills, Maintenance, 04/21/20 13:35:00 EST, Tablet, [facility]/pharmacy #[id number], 157.48, cm, 03/04/20 14:14:00 EST, Height Start Date: 04/21/20 Stop Date: 11/17/20 Status: Ordered Trulicity Pen 1.5 mg/0.5 mL subcutaneous solution 0.5 mL = 1.5 mg, Subcutaneous Injection, Every Saturday, for 90 days, E11.9, # 7.5 mL, 3 Refills, Hard Stop 12/03/22 15:26:00 EDT, 12/08/21 15:26:00 EDT, Solution, [facility], E11.65, 157.48, cm, 03/04/20 14:14:00 EST, Height Start Date: 12/08/21 Stop Date: 12/03/22 Status: Ordered Trulicity Pen 3 mg/0.5 mL subcutaneous solution 0.5 mL = 3 mg, Subcutaneous Injection, Every week, rotate injection sites, # 2 mL, 6 Refills, Maintenance, 03/01/21 16:55:00 EST, Solution, [facility], Partial fill upon patient request if the prescription is for a schedule II opioid... Start Date: 03/01/21 Status: Ordered Vascepa 1 g oral capsule 2 capsule = 2 Gm, By Mouth, 2 times a day, # 360 capsule, 5 Refills, Maintenance, 05/03/20 15:59:00EST, Capsule, [facility]/pharmacy #[id number], 157.48, cm, 03/04/20 14:14:00 EST, Height [...] Active *Briana Garces, Care Coor dinator, ICP [phone](Confirmed) Active Reflux(Confirmed) Active Hepatic steatosis(Confirmed) Active -EF [...]
--- OUTSIDE RECORDS SUMMARY | 2024-01-23 14:36 | XMS_ITS | Continuity of Care Document ---
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 Name Role Phone Rose Mary FISCHER, Sergo Cole Primary Care Physician [phone] [place] [facility] [place](s): 05/11/21 - 07/16/21 [facility] [address], [place] [address] Attending Physician: Not on Staff, [...] 1Result Comment: [01/22/2017] [facility] [id number] 2Admin Note: vis given dated 10/24/12 3Admin Note: vis given dated 10/01/11 4Admin Note: vis 5Admin Note: vis 6Admin Note: vis given: 10/27/2006 7Admin Note: vis given : 10/10/2005 8Admin Note: vis given 2007- Medications acetaminophen 500 mg oral tablet 2 tablet, By Mouth, 4 times a day, PRN NEEDED FOR PAIN, # 100 tablet, 1 Refills, Acute, :52:00 EDT, [facility] 8[facility]64, 157.48, cm, 10/11/20 9:39:00 EDT, Height Start Date: 10/26/20 Status: Ordered Alcohol Pads See Instructions, # 200 each, Refills 11, Tot. Refills 11, Maintenance, To cleans before injections5 x a day., 03/03/21 9:18:00 EST, E11.65, Compound, 157.48, cm, 03/01/21 15:54:00 EST, Height Start Date: 03/03/21 Stop Date: 02/26/22 Status: Ordered Lclmc-Iwpzrh-Qwpr 300 mg oral capsule 1 capsule, By Mouth, 2 times a day, NOT COVERED., # 60 capsule, 11 Refills, [facility] 07971, 157.48, cm, 01/27/21 9:30:00 EDT, Height Start Date: 01/30/21 Status: Ordered ammonium lactate 12% topical cream 1 application, Topically, 2 times a day, # 385 Gm, 5 Refills, Maintenance, 12/19/20 14:08:00 EDT, Cream, [facility]/pharmacy #[id number], Partial fill upon patient request if the prescription is for a schedule IIopioid drug., 1 application Topically 2 times a day... Start Date: 12/19/20 Stop Date: 06/17/21 Status: Ordered aspirin 81 mg oral delayed release tablet 1 tablet, By Mouth, Daily, # 30 tablet, 11 Refills, Maintenance, 06/21/20 17:44:00 EDT, [facility] 87447, 157.48, cm, 05/31/20 9:41:00 EST, Height Start Date: 06/21/20 Status: Ordered atorvastatin 80 mg oral tablet 1 tablet = 80 mg, By Mouth, Daily, replaces Simvastatin, # 90 tablet, 4 Refills, Maintenance, 06/02/21 14:22:00 EST, Tablet, [facility]/pharmacy #4471, replaces simvastatin, 157.48, cm, 06/02/21 14:20:00 EST, Height Start Date: 06/02/21 Stop Date: 08/26/22 Status: Ordered capsaicin 0.075% topical cream See Instructions, APPLY TO AFFECTED AREA TWICE A DAY, # 57 Gm, 4 Refills, [facility], 30, APPLY TO AFFECTED AREA TWICE A DAY, 157.48, cm, 11/11/20 9:37:00 EDT, Height Start Date: 01/02/21 Status: Ordered Daily David oral tablet 1 tablet, By Mouth, Daily, INSTR:TAKE IT 2 HOURS SEPARATE FROM ORLISTAT ([place]), # 30 tablet, 11 Refills, Maintenance, 08/19/20 16:26:00 EDT, [facility], 30, TAKE 1 TABLET BY MOUTH DAILY. [...] 6 Refills, Maintenance, 09/02/20 12:50:00 EDT, Gel, [facility]/pharmacy #[id number], 157.48, cm, 05/31/20 9:41:00 [...] # 16 mL, 5 Refills, [facility], 30, USE 1 SPRAY IN EACH NOSTRIL [...] 3, Maintenance, use up to check blood [id number] per day. 90 DAY SUPPLY, E11.9, 03/03/21 [...] mL, 3 Refills, Maintenance, 05/09/21 10:32:00 EST, [facility], Partial fill upon pat... Start Date: 05/09/21 Status: Ordered Lantus Solostar Pen 100 units/mL subcutaneous solution See Instructions, Decreased to 60U once a day as of 12/29/19, # 30 mL, 9 Refills, Maintenance, 09/20/20 15:10:00 EDT, [facility], NEEDS 30 ML [...] 0 Refills, Maintenance, 12/19/20 14:08:00 EDT, Film, [facility]/pharmacy #[id number], Partial fill upon patient request if the prescription is for a schedule II opioid drug., 1 patch Topically Daily, 157.48, cm, 11/11/20 9:37:0... Start Date: 12/19/20 Status: Ordered losartan 50 mg oral tablet 1 tablet, By Mouth, Daily, # 30 tablet, 2 Refills, [facility] 01874, 157.48, cm, 05/05/21 9:51:00 EST, Height Start Date: 05/12/21 Status: Ordered mirtazapine 15 mg oral tablet 0 Refills, Maintenance, 06/02/21 14:25:00 EST, Partial fill upon patient request if the prescription is for a schedule II opioid drug. Start Date: 06/02/21 Status: Ordered omeprazole 20 mg oral enteric coated capsule 1 capsule, By Mouth, 2 times a day, # 60 capsule, 1 Refills, [facility] 09116, 157.48, cm, 06/02/21 14:20:00 EST, Height Start Date: 07/14/21 Status: Ordered oxyCODONE 10 mg oral tablet TAKE 1/2 TAB EVERY 12 HOURS NEEDED FOR SEVERE NECK/LOW BACK PAIN. DO NOT FILL UNTIL 05/01/21 Start Date: 06/02/21 Status: Ordered Pen [place], 31 G x 8 mm BD Ultra [...] OF 2, # 12 tablet, 7 Refills, [facility] 10719, 157.48, cm, 05/23/21 13:08:00 EST, Height Start Date: 06/02/21 Status: Ordered tiZANidine 4 mg oral capsule 1 capsule, By Mouth, 3 times a day, # 90 capsule, 3 Refills, [facility] 98503, 157.48, cm, 05/23/21 13:08:00 EST, Height Start Date: 06/01/21 Status: Ordered Topamax 25 mg oral tablet 2 tablet = 50 mg, By Mouth, Daily at bedtime, # 60 tablet, 6 Refills, Maintenance, 04/21/20 13:35:00 EST, Tablet, [facility]/pharmacy #[id number], 157.48, cm, 03/04/20 14:14:00 EST, Height Start Date: 04/21/20 Stop Date: 11/17/20 Status: Ordered Trulicity Pen 1.5 mg/0.5 mL subcutaneous solution 0.5 mL = 1.5 mg, Subcutaneous Injection, Every Saturday, for 90 days, E11.9, # 7.5 mL, 3 Refills, Hard Stop 12/03/22 15:26:00 EDT, 12/08/21 15:26:00 EDT, Solution, [facility], E11.65, 157.48, cm, 03/04/20 14:14:00 EST, Height Start Date: 12/08/21 Stop Date: 12/03/22 Status: Ordered Trulicity Pen 3 mg/0.5 mL subcutaneous solution See Instructions, INJECT 0.5ML SUBCUTANEOUSLY EVERY WEEK, ROTATE INJECTION SITES, # 2 mL, 6 Refills, [facility], 157.48, cm, 06/02/21 14:20:00 EST, Height Start Date: 07/11/21 Status: Ordered Vascepa 1 g oral capsule 2 capsule = 2 Gm, By Mouth, 2 times a day, # 360 capsule, 5 Refills, Maintenance, 05/03/20 15:59:00EST, Capsule, [facility]/pharmacy #[id number], 157.48, cm, 03/04/20 14:14:00 [...] Active *Briana Garces, Care Coor dinator, ICP [phone](Confirmed) Active Reflux(Confirmed) Active Hepatic steatosis(Confirmed) Active 46625 -EF 60-65%. No wall motion abnormalities, Does [...]
--- OUTSIDE RECORDS SUMMARY | 2024-01-23 14:36 | XMS_ITS | Continuity of Care Document ---
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 Name Role Phone Sergo Bazzi MD Primary Care Physician Encounter [facility] [place] [facility] R [id number] Date(s): 09/20/23 - 01/18/24 [facility] [address], [place] [address] Attending Physician: Asmita Genao MD Referring Physician: Sergo Bazzi MD Allergies, [...] 1Result Comment: [01/22/2017] [facility] [id number] 2Admin Note: vis given dated 10/24/12 3Admin [...] 100 tablet, 1 Refills, Acute, 219:52:00 EDT, [facility], 157.48, cm, 10/11/20 9:39:00 EDT, Height Start [...] Date: 10/30/23 Stop Date: 10/24/24 Status: Ordered Ateyg-Etmxcr-Sgyd 300 mg oral capsule 1 capsule, By Mouth, 2 times a day, NOT COVERED., # 60 capsule, 11 Refills, [facility] 27[facility], 157.48, cm, 01/27/21 9:30:00 EDT, Height Start [...] Refills, Maintenance, 09/10/23 8:57:00 EDT, Solution, [facility]/pharmacy #[id number], Partial fill upon patient request if the prescription is fora schedule II opioid drug., 1 drops Eyes, Both 2 ti... Start Date: 09/10/23 Status: Ordered atorvastatin 80 mg oral tablet See Instructions, TAKE 1 TABLET BY MOUTH DAILY. INSTR:REPLACES SIMVASTATIN, # 90 tablet, 1 Refills,Maintenance, 11/06/23 7:48:00 EDT, [facility], 157, cm, 10/18/23 11:52:00 EDT, Height, 84, kg,07/24/23 12:52:00 EDT, Dry Weight Start Date: 11/06/23 Status: Ordered atorvastatin 80 mg oral tablet 1 tablet, By Mouth, Daily, INSTR:REPLACES SIMVASTATIN, # 90 tablet, 1 Refills, Maintenance, 05/22/23 12:07:00 EST, [facility], 157, cm, 05/06/23 14:23:00 EST, Height, 88.3, kg, 04/16/23 11:33:00EST, Dry Weight Start Date: 05/22/23 Status: Ordered BD Single Use Swab 70% topical pad See Instructions, TO CLEANS BEFORE INJECTIONS 5 X A DAY., # 150 Unknown, 11 Refills, Maintenance, 08/16/22 10:15:00 EDT, [facility], 30, TO CLEANS BEFORE [...] 5 Refills, Maintenance, 11/06/23 17:25:00 EDT, [facility]/pharmacy #[id number], 1 tablet By Mouth Daily,Instr:SEPARATE FROM [...] 10:46:00 EST, Route to Pharmacy Electronically, [facility]/pharmacy #[id number], Partial fill... Start Date: 02/07/24 Stop Date: 07/06/24 Status: Ordered diazepam 5 mg oral tablet 5 mg, 1, tablet, By Mouth, 2 times a day, for 30 days, TAKE 1 TABLET BY MOUTH TWICE A DAY., # 60 tablet, Refills 4, Tot. Refills 4, Acute 12/03/24 10:46:00 EDT, 07/06/24 10:46:00 EDT, [id number] fill... Start Date: 07/06/24 Stop Date: 12/03/24 Status: Ordered diazepam 5 mg oral tablet 5 mg, 1, tablet, By Mouth, 2 times a day, for 30 days, TAKE 1 TABLET BY MOUTH TWICE A DAY., # 60 tablet, Refills 4, Tot. Refills 4, Acute 02/07/24 10:46:00 EST, 09/10/23 10:46:00 EDT, Route to Pharmacy Electronically, [facility]/pharmacy #[id number], Partial fill... Start Date: 09/10/23 Stop Date: 02/07/24 Status: Ordered diclofenac 1% topical gel See Instructions, APPLY TOPICALLY 4 TIMES A DAY NOT TO EXCEED 16 GRAMS/DAY/SINGLE JOINT OF LOWER EXTREMITIES, # 100 Gm, 4 Refills, Maintenance, 09/10/23 8:56:00 EDT, [facility]/pharmacy #[id number], 30, [...] 3 Refills, Maintenance, 09/25/23 16:33:00 EDT, [facility]/pharmacy #[id number], Partial fill upon patient request if the prescription is for a schedule II opioid drug., 157, cm, 09/25/23 16:26:00 EDT, Height, 84, k... Start Date: 09/25/23 Status: Ordered esomeprazole 40 mg oral enteric coated capsule 1 capsule = 40 mg, By Mouth, Daily, # 90 capsule, 1 Refills, Maintenance, 09/02/23 16:20:00 EDT, [facility]/pharmacy #[id number], Partial [...] 0 Refills, Maintenance, 11/06/23 17:54:00 EDT, [facility]/pharmacy #[id number], 30, 1 puffs Inhalation 2 times a day, 157, cm, 10/18/23 11:52:00 EDT, Height, 84, kg,07/24/23 12:52:00 EDT, Dry Weight Start Date: 11/06/23 Status: Ordered fluticasone 50 mcg/inh nasal spray See Instructions, SPRAY 1 SPRAY INTO EACH NOSTRIL EVERY DAY, # 16 mL, 5 Refills, Maintenance, 11/06/23 17:54:00 EDT, [facility]/pharmacy #[id number], 30, SPRAY 1 SPRAY INTO EACH [...] 4 Refills, Maintenance, 11/06/23 17:54:00 EDT, [facility]/pharmacy #[id number], 157, cm, 10/18/23 11:52:00 EDT, Height, [...] 12:35:00EST, Supply Start Date: 05/09/22 Status: Ordered hydrOXYzine hydrochloride 25 mg oral tablet 1 tablet = 25 mg, By Mouth, 2 times a day, as needed for anxiety, # 60 tablet, 4 Refills, Soft Stop, 02/07/24 10:47:00 EST, Tablet, [facility]/pharmacy #[id number], Partial [...] 02/07/24 10:47:00 EST, 09/10/23 10:47:00 EDT, Tablet, [id number] Partial fillupon patient request if the prescription is for a s... Start Date: 09/10/23 Stop Date: 02/07/24 Status: Ordered Insulin Lispro KwikPen 100 units/mL injectable solution See Instructions, INJECT 4 TO 14 UNITS THREE TIMES A DAY BEFORE MEALS BASED ON SLIDING SCALE. MAX DAILY DOSE 42 UNITS, # 15 mL, 2 Refills, Maintenance, 12/20/23 19:40:00 EDT, [facility], 157, cm, 12/17/23 11:46:00 EDT, Height, 84, kg,... Start Date: 12/20/23 Status: Ordered lactase 3000 u oral tablet 3 tablet, By Mouth, 3 times a day with meals, X30 DAYS., # 120 tablet, 3 Refills, Maintenance, 11/06/23 7:51:00 EDT, [facility]/pharmacy #[id number], 157, cm, 10/18/23 11:52:00 EDT, Height, 84, kg, 07/24/23 12:52:00 EDT, Dry Weight Start Date: 11/06/23 Status: Ordered Lantus Solostar Pen 100 units/mL subcutaneous solution See Instructions, INJECT 45 UNITS SUBCUTANEOUSLY EVERY MORNING AND EVERY NIGHT AT BEDTIME, # 15 mL,1 Refills, Maintenance, 01/17/24 16:27:00 EDT, [facility], 157, cm, 12/17/23 11:46:00 EDT, Height, 84, kg, 07/24/23 12:52:00 EDT, Dry... Start Date: 01/17/24 Status: Ordered levothyroxine 0.1 mg oral tablet 1 tablet = 100 mcg, By Mouth, Daily, # 90 tablet, 3 Refills, Maintenance, 12/19/23 16:28:00 EDT, [facility]/pharmacy #[id number], 157, cm, 12/17/23 11:46:00 EDT, Height, 84, kg, 07/24/23 12:52:00 EDT, Dry Weight Start Date: 12/19/23 Stop Date: 12/13/24 Status: Ordered lidocaine 5% topical ointment See Instructions, APPLY TO AFFECTED AREA 3 TIMES A DAY, # 35.44 Gm, 3 Refills, Maintenance, 11/06/23 7:51:00 EDT, [facility]/pharmacy #[id number], 30, [...] tablet, 1 Refills, Maintenance, 10/17/23 13:55:00 EDT, [facility]/pharmacy #[id number], 157, cm, 10/12/23 11:14:00 EDT, Height, 84, kg, 07/24/23 12:52:00 EDT, Dry Weight Start Date: 10/17/23 Status: Ordered Lyrica 25 mg oral capsule See Instructions, 1 capsule By Mouth 1 time daily at bedtime. E11.9, # 30 each, 2 Refills, Maintenance, 11/05/23 18:01:00 EDT, Capsule, [facility]/pharmacy #[id number], Partial fill upon patient request if the prescription is for a schedule II opioid drug., 157, c... Start Date: 11/05/23 Status: Ordered mirtazapine 15 mg oral tablet 1 tablet = 15 mg, By Mouth, Daily at bedtime, # 30 tablet, 4 Refills, Maintenance, 02/07/24 10:47:00 EST, Tablet, [facility]/pharmacy #[id number], Partial [...] 10:47:00 EST, 09/10/23 10:47:00 EDT, Tablet, [facility]/pharmacy #[id number], Partial fill upon patient request if the prescription is for a schedule II opioid dr... Start Date: 09/10/23 Stop Date: 02/07/24 Status: Ordered Murine Ear Drops 6.5% solution See Instructions, INSTILL 5 DROPS INTO BOTH EARS TWICE DAILY FOR 7 DAYS, # 15 mL, 0 Refills, Maintenance, 09/30/23 10:01:00 EDT, [facility] 7[facility]30, 30, INSTILL 5 DROPS INTO BOTH EARS TWICE DAILY FOR 7 DAYS, 157, cm, 09/25/23 16:26:00 EDT, Height, 84, kg... Start Date: 09/30/23 Status: Ordered Narcan 4 mg/0.1 mL nasal spray = 4 mg, Nares, Both, Once, # 2 each, 2 Refills, Soft Stop, 02/22/23 14:30:00 EST, [facility]/pharmacy #[id number], Partial fill upon patient request if the prescription is for a schedule II opioid drug., 157.5, cm, 02/19/23 9:20:00 EST, Height Start Date: 02/22/23 Status: Ordered [place]-3 Fish Oil 1000 mg oral capsule 1 capsule = 1,000 mg, By Mouth, Daily, # 90 capsule, 1 Refills, Maintenance, 08/01/22 10:17:00 EDT,[facility]/pharmacy #[id number], Partial fill upon [...] 06/14/22 16:40:00 EDT, EC Tablet, [facility]/pharmacy #[id number], Partial fill upon patient request if the prescription is for a schedule II opioid drug., 157.5,... Start Date: 06/14/22 Status: Ordered ondansetron 4 mg oral tablet 1 tablet, By Mouth, Every 8 hours, PRN NEEDED FOR NAUSEA AND VOMITING FOR, # 30 tablet, 2 Refills, Maintenance, 07/03/23 14:40:00 EDT, [facility], 157, cm, 06/24/23 14:54:00 EDT, Height, 88.3, [...] mL, 11 Refills, Maintenance, 08/23/23 11:17:00 EDT, [facility], Partial fill upon patient request if... Start Date: 08/23/23 Status: Ordered Pen [place], 31 G x 8 mm BD Ultra [...] 10:47:00 EST, Route to Pharmacy Electronically, [facility]/pharmacy #[id number], Partial fill upon patient request if the prescription is for a schedule II opi... Start Date: 02/07/24 Stop Date: 07/06/24 Status: Ordered QUEtiapine 25 mg oral tablet 25 mg, 1, tablet, By Mouth, 2 times a day, for 30 days, # 60 tablet, Refills 4, Tot. Refills 4, Hard Stop 02/07/24 10:47:00 EST, 09/10/23 10:47:00 EDT, Route to Pharmacy Electronically, [facility]/pharmacy #[id number], Partial fill upon patient request if the pres... Start Date: 09/10/23 Stop Date: 02/07/24 Status: Ordered comic illustrator grabber tool comic illustrator grabber tool, See Instructions, # 1 each, Refills 0, Tot. Refills 0, Maintenance, please dispense one comic illustrator grabber tool, ICD 10 M54.6, length of [...] tablet, 10 Refills, Maintenance, 10/08/23 15:43:00 EDT, [facility], 157, cm, 09/25/23 16:26:00 EDT, Height, 84, kg, 07/24/23 12:52:00 EDT, Dry Weight Start Date: 10/08/23 Status: Ordered valACYclovir 500 mg oral tablet See Instructions, TAKE 1 TABLET BY MOUTH 2 TIMES A DAY,X3 DAYS, NEEDED FOR OUTBREAKS, # 6 tablet, Refills 0, Maintenance, 11/06/23 7:49:00 EDT, Instructions Replace Required Details, Route to Pharmacy Electronically, [facility], 157, cm, 10/17... 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 *Briana Garces, Partner Marketing Intern, ICP [phone] Confirmed Active PTSD (post-traumatic stress disorder) Confirmed [...] Care team information Care Team Personnel Name: Serog Bazzi MD Position: [facility] Physician - Primary Care Member Role: PCP Address: Address: [address] [place] [address] [place] [address]- Name: Lizbeth Collins [place] Position: [facility] Office Staff Member Role: Primary Care Nurse Care Team Related Persons Name: LB HENLEY Address: [address] [place] [address] Name: LB HENLEY Address: home [address] [address] Name: MILENA CUBA Address: home [address] [place] [address]
--- OUTSIDE RECORDS SUMMARY | 2024-01-23 14:36 | XMS_ITS | Continuity of Care Document ---
Author Organization [facility] Address [address] [place] [address]- Care Team Providers Care Receiving Worker Name Role Phone Sergo Bazzi MD Primary Care Physician Encounter [facility] Date(s): 05/15/23 - 06/14/23 [facility] [address] [place], [place] [address] Allergies, Adverse Reactions, Alerts [...] 1Result Comment: [01/22/2017] [facility] [id number] 2Admin Note: vis given dated 10/24/12 3Admin [...] 100 tablet, 1 Refills, Acute, 219:52:00 EDT, [facility], 157.48, cm, 10/11/20 9:39:00 EDT, Height Start Date: 10/26/20 Status: Ordered Alcohol Pads See Instructions, # 200 each, Refills 11, Tot. Refills 11, Maintenance, To cleans before injections5 x a day., 03/03/21 9:18:00 EST, E11.65, Compound, 157.48, cm, 03/01/21 15:54:00 EST, Height Start Date: 03/03/21 Stop Date: 02/26/22 Status: Ordered Xhtpx-Zvzifa-Zeht 300 mg oral capsule 1 capsule, By Mouth, 2 times a day, NOT COVERED., # 60 capsule, 11 Refills, [facility], 157.48, cm, 01/27/21 9:30:00 EDT, Height Start Date: 01/30/21 Status: Ordered ammonium lactate 12% topical cream 1 application, Topically, 2 times a day, # 385 Gm, 1 Refills, Maintenance, 12/22/22 14:16:00 EDT, Cream, [facility]/pharmacy #[id number], Partial fill upon patient request if the prescription is for a schedule IIopioid drug., 1 application Topically 2 times a day... Start Date: 12/22/22 Stop Date: 02/20/23 Status: Ordered atorvastatin 80 mg oral tablet 1 tablet, By Mouth, Daily, INSTR:REPLACES SIMVASTATIN, # 90 tablet, 1 Refills, Maintenance, 05/22/23 12:07:00 EST, [facility], 157, cm, 05/06/23 14:23:00 EST, Height, 88.3, [...] 04/30/23 7:27:00 EST, Route to Pharmacy Electronically, [facility]/pharmacy #[id number], Partial fill upon patient request if the prescription is for a schedule II opioi... Start Date: 04/30/23 Stop Date: 09/27/23 Status: Ordered capsaicin 0.075% topical cream See Instructions, APPLY TO AFFECTED AREA TWICE A DAY, # 57 Gm, 4 Refills, Maintenance, 04/11/23 10:18:00 EST, [facility], 30, APPLY TO AFFECTED AREA TWICE A [...] tablet, 11 Refills, Maintenance, 07/09/22 10:30:00 EDT, [facility]/pharmacy #[id number], 30, 1 tablet By Mouth [...] Gm, 1 Refills, Maintenance, 12/14/22 6:14:00 EDT, [facility]/pharmacy #[id number], 30, APPLY TOPICALLY 4 TIMES A DAY NOT TO EXCEED 16 GRAMS/DAY/SING... Start Date: 12/14/22 Status: Ordered docusate sodium 100 mg oral capsule See Instructions, TAKE 1 CAPSULE BY MOUTH TWICE A DAY NEEDED FOR CONSTIPATION, # 60 capsule, 5 Refills, Maintenance, 07/03/22 18:20:00 EDT, [facility]/pharmacy #[id number], Duplicate Rx. Original sent 07/03/22 [...] each, 0 Refills, Maintenance, 09/20/22 9:36:00 EDT, [id number], 30, INHALE 1 PUFF BY MOUTH TWICE A DAY, 157.5, cm, 09/05/22 16:22:00 EDT, Height Start Date: 09/20/22 Status: Ordered fluticasone 50 mcg/inh nasal spray See Instructions, SPRAY 1 SPRAY INTO EACH NOSTRIL EVERY DAY, # 16 mL, 5 Refills, Maintenance, 07/05/22 16:20:00 EDT, [facility], 30, SPRAY 1 SPRAY INTO EACH NOSTRIL [...] tablet, 4 Refills, Maintenance, 03/11/23 15:50:00 EST, [facility], 157.5, cm, 02/19/23 9:20:00 EST, Height Start [...] mL, 6 Refills, Maintenance, 11/26/22 14:55:00 EDT, [facility], Partial fill upon patie... Start Date: 11/26/22 Status: Ordered lactase 3000 u oral tablet 3 tablet, By Mouth, 3 times a day with meals, X30 DAYS., # 120 tablet, 5 Refills, Maintenance, 04/25/23 15:25:00 EST, [facility] STORE 32361, 157, cm, 04/17/23 7:57:00 EST, Height, 88.3, kg, 04/16/23 11:33:00 EST, Dry Weight Start Date: 04/25/23 Status: Ordered Lantus Solostar Pen 100 units/mL subcutaneous solution See Instructions, Take 45 units in the AM and 45 units daily at bedtime. E11.9., # 30 mL, 9 Refills, Maintenance, 11/26/22 14:55:00 EDT, [facility], Partial fill upon patient requestif the prescription is for a schedule II opioid lucas... Start Date: 11/26/22 Status: Ordered levothyroxine 0.112 mg oral tablet 1 tablet = 112 mcg, By Mouth, Daily, # 30 tablet, 0 Refills, Maintenance, 06/01/23 10:27:00 EST, [facility]/pharmacy #[id number], Partial fill upon patient request if the prescription is for a schedule II opioid drug., 157, cm, 05/06/23 14:23:00 EST, Height, 88.3,... Start Date: 06/01/23 Status: Ordered lidocaine 5% topical ointment See Instructions, APPLY TO AFFECTED AREA 3 TIMES A DAY, # 35.44 Gm, 11 Refills, Maintenance, 02/28/22 8:51:00 EST, [facility]/pharmacy #[id number], 30, APPLY TO AFFECTED AREA 3 TIMES A DAY, 157.5, cm, 02/21/22 14:36:00 EST, Height Start Date: 02/28/22 Status: Ordered lidocaine 5% topical ointment See Instructions, APPLY TO AFFECTED AREA 3 TIMES A DAY, # 35.44 Gm, 11 Refills, Maintenance, 07/03/22 18:22:00 EDT, [facility]/pharmacy #[id number], 30, Duplicate Rx. Original sent 07/03/22 with routing error. Re-sending to pharmacy, APPLY TO AFFECTED AREA 3 TIMES A... Start Date: 07/03/22 Status: Ordered losartan 50 mg oral tablet See Instructions, TAKE 1 TABLET BY MOUTH EVERY DAY, # 90 tablet, 1 Refills, Maintenance, 03/11/23 15:50:00 EST, [facility] STORE 30586, 157.5, cm, 02/19/23 9:20:00 EST, Height Start Date: 03/11/23 Status: Ordered Lyrica 25 mg oral capsule See Instructions, 1 capsule By Mouth 1 time daily at bedtime. E11.9, # 30 each, 5 Refills, Maintenance, 01/21/23 15:40:00 EDT, Capsule, [facility]/pharmacy #[id number], Partial fill upon patient request if the prescription is for a schedule II opioid drug., 157.5,... Start Date: 01/21/23 Status: Ordered mirtazapine 15 mg oral tablet 1 tablet = 15 mg, By Mouth, Daily at bedtime, # 30 tablet, 4 Refills, Maintenance, 12/06/22 13:07:00 EDT, Tablet, [facility]/pharmacy #[id number], Partial fill upon patient request if the prescription is for a schedule II opioid drug., 157.5, cm, 11/26/22 14:11:00... Start Date: 12/06/22 Stop Date: 05/05/23 Status: Ordered Narcan 4 mg/0.1 mL nasal spray = 4 mg, Nares, Both, Once, # 2 each, 2 Refills, Soft Stop, 02/22/23 14:30:00 EST, [facility]/pharmacy #[id number], Partial fill upon patient request if the prescription is for a schedule II opioid drug., 157.5, cm, 02/19/23 9:20:00 EST, Height Start Date: 02/22/23 Status: Ordered Sanford-3 Fish Oil 1000 mg oral capsule 1 capsule = 1,000 mg, By Mouth, Daily, # 90 capsule, 1 Refills, Maintenance, 08/01/22 10:17:00 EDT,[facility]/pharmacy #[id number], Partial fill [...] Refills, Maintenance, 06/14/22 16:40:00 EDT, EC Tablet, [facility]/pharmacy #[id number], Partial [...] 12/06/22 13:08:00 EDT, Route to Pharmacy Electronically, [facility]/pharmacy #[id number], Partial fill upon patient request if the prescription is for a schedule II opi... Start Date: 12/06/22 Stop Date: 05/05/23 Status: Ordered pipeline integrity engineer grabber tool pipeline integrity engineer grabber tool, See Instructions, # 1 each, Refills 0, Tot. Refills 0, Maintenance, please dispense one pipeline integrity engineer grabber tool, ICD 10 M54.6, length [...] tablet, 10 Refills, Maintenance, 01/17/23 8:54:00 EDT, [facility], 157.5, cm, 12/28/22 15:12:00 EDT, Height Start Date: 01/17/23 Status: Ordered Trulicity Pen 4.5 mg/0.5 mL subcutaneous solution See Instructions, INJECT 4.5 MG SUBCUTANEOUSLY ONCE A WEEK, # 2 mL, 10 Refills, Maintenance, 06/10/23 12:32:00 EDT, [facility], 157, cm, 05/06/23 14:23:00 EST, Height, 88.3, kg, 04/16/23 11:33:00 EST, Dry Weight Start Date: 06/10/23 Status: Ordered valACYclovir 500 mg oral tablet 1, tablet, By Mouth, 2 times a day, PRN, # 6 tablet, Refills 0, Maintenance, NEEDED FOR OUTBREAKS, 05/22/23 12:07:00 EST, Route to Pharmacy Electronically, [facility], 157, cm, 05/06/23 14:23:00 EST, Height, 88.3, kg, 04/16/23 11:33:00 EST, . Start Date: 05/22/23 Status: Ordered Valium 5 mg oral tablet 5 mg, 1, tablet, By Mouth, 2 times a day, for 30 days, # 60 tablet, Refills 0, Tot. 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 RN Member Role: Primary Care Nurse Care Team Related Persons Name: LB HENLEY Address: home [address] [address] Name: LB HENLEY Address: [address] [place] [address] Name: MILENA CUBA Address: home [address] [place] [address]
--- OUTSIDE RECORDS SUMMARY | 2024-01-23 14:36 | XMS_ITS | Continuity of Care Document ---
Author Organization [facility] Address [address] [place] [address]- Care Team Providers Care Bunk Assembler Name Role Phone Rose Mary FISCHER, Sergo Cole Primary Care Physician [phone] Encounter [facility] Date(s): 06/07/22 - 07/18/22 [facility] [address] [place], [place] [address] Attending Physician: Not on Staff, Attending [...] (oldterm) 8 01/21/08 Given 1Result Comment: [01/22/2017] [facility] [id number] 2Admin Note: vis given dated 10/24/12 3Admin Note: vis given dated 10/01/11 4Admin Note: vis 5Admin Note: vis 6Admin Note: vis given: 10/27/2006 7Admin Note: vis given : 10/10/2005 8Admin Note: vis given 2007- Medications acetaminophen 500 mg oral tablet 2 tablet, By Mouth, 4 times a day, PRN NEEDED FOR PAIN, # 100 tablet, 1 Refills, Acute, 219:52:00 EDT, [facility], 157.48, cm, 10/11/20 9:39:00 EDT, Height Start Date: 10/26/20 Status: Ordered Alcohol Pads See Instructions, # 200 each, Refills 11, Tot. Refills 11, Maintenance, To cleans before injections5 x a day., 03/03/21 9:18:00 EST, E11.65, Compound, 157.48, cm, 03/01/21 15:54:00 EST, Height Start Date: 03/03/21 Stop Date: 02/26/22 Status: Ordered Qlljb-Vicmip-Lknv 300 mg oral capsule 1 capsule, By Mouth, 2 times a day, NOT COVERED., # 60 capsule, 11 Refills, [facility], 157.48, cm, 01/27/21 9:30:00 EDT, Height Start [...] Refills, Maintenance, 03/05/22 13:29:00 EST, [facility], 30, APPLY TO AFFECTED AREA TWICE A [...] tablet, 11 Refills, Maintenance, 07/09/22 10:30:00 EDT, [facility]/pharmacy #[id number], 30, 1 tablet By [...] Replace Required Details, Route to Pharmacy Electronically, [facility]/pharmacy... Start Date: 05/02/22 Status: Ordered diclofenac 1% topical gel See Instructions, APPLY TOPICALLY 4 TIMES A DAY NOT TO EXCEED 16 GRAMS/DAY/SINGLE JOINT OF LOWER EXTREMITIES, # 100 Gm, 6 Refills, Maintenance, 03/19/22 9:28:00 EST, [facility], 30, APPLY TOPICALLY 4 TIMES A DAY [...] 9:52:00 EDT, [id number] Partial fill upon patient request if [...] each, 0 Refills, Maintenance, 03/22/22 16:35:00 EST, [facility], 30, INHALE 1 PUFF BY MOUTH TWICE A DAY, 157.5, cm, 03/22/22 13:25:00 EST, Height Start Date: 03/22/22 Status: Ordered fluticasone 50 mcg/inh nasal spray See Instructions, SPRAY 1 SPRAY INTO EACH NOSTRIL EVERY DAY, # 16 mL, 5 Refills, Maintenance, 07/05/22 16:20:00 EDT, [facility] 14484, 30, SPRAY 1 SPRAY INTO EACH NOSTRIL [...] mL, 6 Refills, Maintenance, 06/12/22 10:00:00 EDT, [facility], Partial fill upon patie... Start Date: 06/12/22 Status: Ordered Lantus Solostar Pen 100 units/mL subcutaneous solution See Instructions, Take 45 units in the AM and 45 units daily at bedtime. E11.9., # 30 mL, 9 Refills, Maintenance, 06/19/22 16:50:00 EDT, [facility], Partial [...] tablet, 1 Refills, Maintenance, 07/11/22 15:04:00 EDT, [facility]/pharmacy#[id number], 157.5, cm, 06/21/22 8:43:00 EDT, Height Start Date: 07/11/22 Status: Ordered Lyrica 25 mg oral capsule See Instructions, 1 capsule By Mouth 1 time daily at bedtime. E11.9, # 30 each, 5 Refills, Maintenance, 05/01/22 18:04:00 EST, Capsule, [facility]/pharmacy #[id number], Partial fill upon patient request if the prescription is for a schedule II opioid drug., 157.5,... Start Date: 05/01/22 Status: Ordered mirtazapine 15 mg oral tablet 1 tablet = 15 mg, By Mouth, Daily at bedtime, # 30 tablet, 4 Refills, Maintenance, 05/02/22 14:02:00 EST, Tablet, [facility]/pharmacy #[id number], Partial [...] Refills, Maintenance, 06/14/22 16:40:00 EDT, EC Tablet, [facility]/pharmacy #[id number], Partial fill upon patient request if the prescription is for a schedule II opioid drug., 157.5,... Start Date: 06/14/22 Status: Ordered oxyCODONE 10 mg oral tablet TAKE 1/2 TAB EVERY 12 HOURS NEEDED FOR SEVERE NECK/LOW BACK PAIN. DO NOT FILL UNTIL 05/01/21 Start Date: 06/02/21 Status: Ordered Pen [place], 31 G x 8 mm BD Ultra [...] 05/02/22 14:40:00 EST, Route to Pharmacy Electronically, [facility]/pharmacy #[id number], Partial fill upon patient request if the prescription is for a schedule II opi... Start Date: 05/02/22 Status: Ordered cocktail server grabber tool cocktail server grabber tool, See Instructions, # 1 each, Refills 0, Tot. Refills 0, Maintenance, please dispense one cocktail server grabber tool, ICD 10 M54.6, length of [...] 10:05:00 EDT, 06/12/22 10:05:00 EDT, Chew Tablet, [facility], Partial fill [...] Stop 12/15/22 14:36:00 EDT, 04/19/22 14:36:00 EST, [facility]/pharmacy #[id number], 157.5, cm, 04/11/22 10:50:00 EST, Height Start Date: 04/19/22 Stop Date: 12/15/22 Status: Ordered Topamax 25 mg oral tablet 3 tablet = 75 mg, By Mouth, Daily at bedtime, # 90 tablet, 6 Refills, Maintenance, 06/26/22 10:14:00 EDT, Tablet, [facility], 157.5, cm, 06/21/22 8:43:00 EDT, Height Start Date: 06/26/22 Stop Date: 01/22/23 Status: Ordered Trulicity Pen 3 mg/0.5 mL subcutaneous solution See Instructions, INJECT 0.5ML SUBCUTANEOUSLY EVERY WEEK, ROTATE INJECTION SITES, # 2 mL, 5 Refills, 01/23/22 16:33:00 EDT, [facility], 157.5, cm, 01/20/22 13:38:00 EDT, Height Start Date: 01/23/22 Status: Ordered Trulicity Pen 4.5 mg/0.5 mL subcutaneous solution See Instructions, 4.5 mg Subcutaneous Infusion weekly. E11.9, # 4 each, 5 Refills, Maintenance, 06/19/22 17:00:00 EDT, [facility], Partial fill upon patient request if the prescription is for a schedule II opioid drug., 157.5, cm, ... Start Date: 06/19/22 Status: Ordered valACYclovir 500 mg oral tablet 1, tablet, By Mouth, 2 times a day, PRN, # 6 tablet, Refills 2, Maintenance, NEEDED FOR OUTBREAKS, 07/11/22 16:11:00 EDT, Route to Pharmacy Electronically, [facility], 157.5, cm, 06/21/22 8:43:00 EDT, Height Start Date: 07/11/22 Stop Date: 07/14/22 Status: Ordered Vascepa 1 g oral capsule 2 capsule = 2 Gm, By Mouth, 2 times a day, # 360 capsule, 5 Refills, Maintenance, 05/03/20 15:59:00EST, Capsule, [facility]/pharmacy #[id number], 157.48, cm, 03/04/20 14:14:00 EST, Height Start Date: 05/03/20 Status: Ordered Ventolin HFA 108 mcg/inh inhalation aerosol with adapter 1 puffs, Inhalation, 4 times a day, PRN NEEDED FOR WHEEZING, # 18 each, 0 Refills, Maintenance, 04/04/22 12:59:00 EST, [facility], 157.5, cm, 03/22/22 13:25:00 EST, Height Start [...] 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 No wall motion abnormalities, Does [...] Team Personnel Name: Sergo Bazzi MD Position: [facility] Primary Care Physician Member Role: PCP Address: Address: [address] [place] [address]- Name: Lizbeth Barnhart Position: [facility] RN Member Role: Primary Care Nurse Care Team Related Persons Name: LB HENLEY Address: home [address] [place] [address] Name: LB HENLEY Address: [address] [address] Name: MILENA CUBA Address: home [address] [place] [address] [address] [place] [address]
--- OUTSIDE RECORDS SUMMARY | 2024-01-23 14:36 | XMS_ITS | Continuity of Care Document ---
Author Organization [facility] Address [address] [place] [address]- Care Team Providers Care Care Coordinator Name Role Phone Sergo Bazzi MD Primary Care Physician Encounter [facility] ACCT R [id number] Date(s): 02/12/22 - 03/22/22 [facility] [address] [place], [place] [address] Attending Physician: Fausto Ritter MD Admitting Physician: Fausto Ritter MD Allergies, Adverse Reactions, Alerts Substance Reaction Severity Status morphine ITCH DIARRHEA Active trazodone DEPRESSION Active cortisone Active Naprosyn gi upset Active Ultram nausea, vomit Active Vioxx heart problems Active Latex powder eats up skin Active CeleBREX gi upset Active Neurontin mental status changes Active Motrin eat lining of stomach Active Immunizations Given and Recorded Vaccine Date [...] Given 1Result Comment: [01/22/2017] [facility] [id number] 2Admin Note: vis given dated 10/24/12 3Admin Note: vis given dated 10/01/11 4Admin Note: vis 5Admin Note: vis 6Admin Note: vis given: 10/27/2006 7Admin Note: vis given : 10/10/2005 8Admin Note: vis given 2007- Medications acetaminophen 500 mg oral tablet 2 tablet, By Mouth, 4 times a day, PRN NEEDED FOR PAIN, # 100 tablet, 1 Refills, Acute, 219:52:00 EDT, [facility], 157.48, cm, 10/11/20 9:39:00 EDT, Height Start Date: 10/26/20 Status: Ordered albuterol CFC free 90 mcg/inh inhalation aerosol 1, puffs, Inhalation, 4 times a day, PRN, # 8.5 Gm, Refills 0, Tot. Refills 0, Maintenance, 02/21/22 15:04:00 EST, Aerosol, Route to Pharmacy Electronically, [id number], [facility]/pharmacy #[id number], 157.5, cm, 02/21/22 14:36:00 EST, H... Start Date: 02/21/22 Status: Ordered Alcohol Pads See Instructions, # 200 each, Refills 11, Tot. Refills 11, Maintenance, To cleans before injections5 x a day., 03/03/21 9:18:00 EST, E11.65, Compound, 157.48, cm, 03/01/21 15:54:00 EST, Height Start Date: 03/03/21 Stop Date: 02/26/22 Status: Ordered Larwk-Ezaccn-Tnpj 300 mg oral capsule 1 capsule, By Mouth, 2 times a day, NOT COVERED., # 60 capsule, 11 Refills, [facility]13, 157.48, cm, 01/27/21 9:30:00 EDT, Height Start Date: 01/30/21 Status: Ordered ammonium lactate 12% topical cream 1 application, Topically, 2 times a day, # 385 Gm, 5 Refills, Maintenance, 09/08/21 9:35:00 EDT, Cream, [facility]/pharmacy #[id number], Partial fill upon patient request if the prescription is for a schedule II opioid drug., 1 application Topically 2 times a day,... Start Date: 09/08/21 Stop Date: 03/07/22 Status: Ordered atorvastatin 80 mg oral tablet 1 tablet = 80 mg, By Mouth, Daily, replaces Simvastatin, # 90 tablet, 4 Refills, Maintenance, 08/26/22 14:22:00 EDT, Tablet, [facility]/pharmacy #[id number], replaces simvastatin, 157.5, cm, 11/29/21 15:59:00 EDT, Height Start Date: 08/26/22 Stop Date: 11/19/23 Status: Ordered capsaicin 0.075% topical cream See Instructions, APPLY TO AFFECTED AREA TWICE A DAY, # 57 Gm, 4 Refills, Maintenance, 03/05/22 13:29:00 EST, [facility], 30, APPLY TO AFFECTED AREA TWICE A [...] Refills, Maintenance, 08/19/20 16:26:00 EDT, [facility], 30, TAKE 1 TABLET BY MOUTH DAILY. [...] Gm, 6 Refills, Maintenance, 03/19/22 9:28:00 EST, [facility], 30, APPLY TOPICALLY 4 TIMES A DAY NOT TO EXCEED 16 GRAMS/DAY/SINGLE... Start Date: 03/19/22 Status: Ordered docusate sodium 100 mg oral capsule 100 mg, 1, capsule, By Mouth, 2 times a day, PRN, # 60 capsule, Refills 5, Tot. Refills 5, Maintenance, as needed for constipation, 11/10/21 9:17:00 EDT, Route to Pharmacy Electronically, [facility]/pharmacy #[id number], Partial fill upon patient request if [...] each, 0 Refills, Maintenance, 03/22/22 16:35:00 EST, [facility] 30268, 30, INHALE 1 PUFF BY MOUTH TWICE A DAY, 157.5, cm, 03/22/22 13:25:00 EST, Height Start Date: 03/22/22 Status: Ordered fluticasone 50 mcg/inh nasal spray See Instructions, USE 1 SPRAY IN EACH NOSTRIL EVERY DAY, # 16 mL, 5 Refills, 12/29/21 15:10:00 EDT,[facility]/pharmacy #[id number], USE 1 SPRAY IN EACH NOSTRIL [...] mL, 3 Refills, Maintenance, 03/22/22 15:43:00 EST, [facility], Partial fill upon patie... Start Date: 03/22/22 Status: Ordered Lantus Solostar Pen 100 units/mL subcutaneous solution See Instructions, Decreased to 60U once a day as of 12/29/19, # 30 mL, 9 Refills, Maintenance, 09/20/20 15:10:00 EDT, [facility], NEEDS 30 ML FOR 30 DAY SUPPLY E11.9, 157.48, cm, 05/31/20 9:41:00 EST, Height Start Date: 09/20/20 Status: Ordered Lantus Solostar Pen 100 units/mL subcutaneous solution See Instructions, Take 80 units via Subcutaneous Infusion Daily at bedtime. E11.9., # 30 mL, 9 Refills, Maintenance, 03/22/22 15:41:00 EST, [facility], Partial fill upon patient request if the prescription is for a schedule II opioid... Start Date: 03/22/22 Status: Ordered lidocaine 5% topical ointment See Instructions, APPLY TO AFFECTED AREA 3 TIMES A DAY, # 35.44 Gm, 11 Refills, Maintenance, 02/28/22 8:51:00 EST, [facility]/pharmacy #4471, 30, APPLY TO AFFECTED AREA 3 TIMES A DAY, 157.5, cm, 02/21/22 14:36:00 EST, Height Start Date: 02/28/22 Status: Ordered losartan 50 mg oral tablet 1 tablet, By Mouth, Daily, # 30 tablet, 5 Refills, 12/08/21 16:06:00 EDT, [facility]/pharmacy #[id number], 157.5, cm, 11/29/21 15:59:00 EDT, Height Start Date: 12/08/21 Status: Ordered Lyrica 25 mg oral capsule See Instructions, 1 capsule By Mouth 1 time daily at bedtime. E11.9, # 30 each, 5 Refills, Maintenance, 09/18/21 12:21:00 EDT, Capsule, [facility]/pharmacy #[id number], Partial fill upon patient request if [...] Refills, Maintenance, 01/29/22 8:52:00 EDT, EC Tablet, [facility]/pharmacy #[id number], Partial fill upon patient request if the prescription is for a schedule II opioid drug., 157.5,... Start Date: 01/29/22 Status: Ordered oxyCODONE 10 mg oral tablet TAKE 1/2 TAB EVERY 12 HOURS NEEDED FOR SEVERE NECK/LOW BACK PAIN. DO NOT FILL UNTIL 05/01/21 Start Date: 06/02/21 Status: Ordered Pen [place], 31 G x 8 mm BD Ultra [...] 11:08:00 EST, 01/09/22 11:08:00 EDT, Chew Tablet, [facility]/pharmacy #[id number], Partial fill upon patient request if the prescription is for a schedule II... Start Date: 01/09/22 Stop Date: 04/24/22 Status: Ordered SUMAtriptan 25 mg oral tablet 1 tablet, By Mouth, Daily, PRN NEEDED FOR MIGRAINES, for 30 days, JULY RPT DOSE AFTER 2 HRS TO MAX OF 2, # 12 tablet, 7 Refills, Physician Stop 09/16/22 11:02:00 EDT, 01/19/22 11:02:00 EDT, [facility]/pharmacy #[id number], 157.5, cm, 01/09/22 10:18:00 EDT, Height Start Date: 01/19/22 Stop Date: 09/16/22 Status: Ordered Topamax 25 mg oral tablet 3 tablet = 75 mg, By Mouth, Daily at bedtime, # 90 tablet, 6 Refills, Maintenance, 01/19/22 10:34:00 EDT, Tablet, [facility]/pharmacy #[id number], 157.5, cm, 01/09/22 10:18:00 EDT, Height Start Date: 01/19/22 Stop Date: 08/17/22 Status: Ordered Trulicity Pen 3 mg/0.5 mL subcutaneous solution See Instructions, INJECT 0.5ML SUBCUTANEOUSLY EVERY WEEK, ROTATE INJECTION SITES, # 2 mL, 5 Refills, 01/23/22 16:33:00 EDT, [facility], 157.5, cm, 01/20/22 13:38:00 EDT, Height Start Date: 01/23/22 Status: Ordered Trulicity Pen 4.5 mg/0.5 mL subcutaneous solution See Instructions, 4.5 mg Subcutaneous Infusion weekly. E11.9, # 4 each, 5 Refills, Maintenance, 03/22/22 15:41:00 EST, [facility], Partial fill upon patient request if the prescription is for a schedule II opioid drug., 157.5, cm, ... 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
--- OUTSIDE RECORDS SUMMARY | 2024-01-23 14:36 | XMS_ITS | Continuity of Care Document ---
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(s): 04/23/23 - 05/23/23 [facility] [address] [place], [place] [address] Allergies, Adverse Reactions, Alerts Substance Reaction Severity Status morphine ITCH DIARRHEA Active trazodone DEPRESSION Active Naprosyn gi upset Active Ultram nausea, vomit Active CeleBREX gi upset Active cortisone Active Motrin eat lining of stomach Active Neurontin mental status changes Active Vioxx [...] Comment: [01/22/2017] [facility] [id number] 2Admin Note: vis given dated 10/24/12 3Admin [...] 100 tablet, 1 Refills, Acute, 219:52:00 EDT, [facility], 157.48, cm, 10/11/20 9:39:00 EDT, Height Start Date: 10/26/20 Status: Ordered Alcohol Pads See Instructions, # 200 each, Refills 11, Tot. Refills 11, Maintenance, To cleans before injections5 x a day., 03/03/21 9:18:00 EST, E11.65, Compound, 157.48, cm, 03/01/21 15:54:00 EST, Height Start Date: 03/03/21 Stop Date: 02/26/22 Status: Ordered Rifxj-Glmuya-Rkbf 300 mg oral capsule 1 capsule, By Mouth, 2 times a day, NOT COVERED., # 60 capsule, 11 Refills, [facility] 70499, 157.48, cm, 01/27/21 9:30:00 EDT, Height Start Date: 01/30/21 Status: Ordered ammonium lactate 12% topical cream 1 application, Topically, 2 times a day, # 385 Gm, 1 Refills, Maintenance, 12/22/22 14:16:00 EDT, Cream, [facility]/pharmacy #[id number], Partial fill upon patient request if the prescription is for a schedule IIopioid drug., 1 application Topically 2 times a day... Start Date: 12/22/22 Stop Date: 02/20/23 Status: Ordered atorvastatin 80 mg oral tablet 1 tablet, By Mouth, Daily, INSTR:REPLACES SIMVASTATIN, # 90 tablet, 1 Refills, Maintenance, 05/22/23 12:07:00 EST, [facility], 157, cm, 05/06/23 14:23:00 EST, Height, 88.3, [...] 04/30/23 7:27:00 EST, Route to Pharmacy Electronically, [facility]/pharmacy #[id number], Partial fill upon patient request if the prescription is for a schedule II opioi... Start Date: 04/30/23 Stop Date: 09/27/23 Status: Ordered capsaicin 0.075% topical cream See Instructions, APPLY TO AFFECTED AREA TWICE A DAY, # 57 Gm, 4 Refills, Maintenance, 04/11/23 10:18:00 EST, [facility], 30, APPLY TO AFFECTED AREA TWICE A [...] tablet, 11 Refills, Maintenance, 07/09/22 10:30:00 EDT, [facility]/pharmacy #[id number], 30, 1 tablet By Mouth Daily,Instr:INSTR:TAKE [...] Gm, 1 Refills, Maintenance, 12/14/22 6:14:00 EDT, [facility]/pharmacy #4471, 30, APPLY TOPICALLY 4 TIMES A DAY NOT TO EXCEED 16 GRAMS/DAY/SING... Start Date: 12/14/22 Status: Ordered docusate sodium 100 mg oral capsule See Instructions, TAKE 1 CAPSULE BY MOUTH TWICE A DAY NEEDED FOR CONSTIPATION, # 60 capsule, 5 Refills, Maintenance, 07/03/22 18:20:00 EDT, [facility]/pharmacy #[id number], Duplicate Rx. Original sent 07/03/22 with [...] each, 0 Refills, Maintenance, 09/20/22 9:36:00 EDT, [facility] 668[facility], 30, INHALE 1 PUFF BY MOUTH TWICE A DAY, 157.5, cm, 09/05/22 16:22:00 EDT, Height Start Date: 09/20/22 Status: Ordered fluticasone 50 mcg/inh nasal spray See Instructions, SPRAY 1 SPRAY INTO EACH NOSTRIL EVERY DAY, # 16 mL, 5 Refills, Maintenance, 07/05/22 16:20:00 EDT, [facility] 47[facility], 30, SPRAY 1 SPRAY INTO EACH NOSTRIL [...] tablet, 4 Refills, Maintenance, 03/11/23 15:50:00 EST, [facility] 47956, 157.5, cm, 02/19/23 9:20:00 EST, Height Start [...] mL, 6 Refills, Maintenance, 11/26/22 14:55:00 EDT, [facility], Partial fill upon patie... Start Date: 11/26/22 Status: Ordered lactase 3000 u oral tablet 3 tablet, By Mouth, 3 times a day with meals, X30 DAYS., # 120 tablet, 5 Refills, Maintenance, 04/25/23 15:25:00 EST, [facility] 09833, 157, cm, 04/17/23 7:57:00 EST, Height, 88.3, kg, 04/16/23 11:33:00 EST, Dry Weight Start Date: 04/25/23 Status: Ordered Lantus Solostar Pen 100 units/mL subcutaneous solution See Instructions, Take 45 units in the AM and 45 units daily at bedtime. E11.9., # 30 mL, 9 Refills, Maintenance, 11/26/22 14:55:00 EDT, [facility], Partial fill upon patient requestif the prescription is for a schedule II opioid lucas... Start Date: 11/26/22 Status: Ordered levothyroxine 0.137 mg oral tablet 1 tablet = 137 mcg, By Mouth, Daily, # 30 tablet, 2 Refills, Maintenance, 04/17/23 7:46:00 EST, Tablet, [facility]/pharmacy #[id number], Partial fill upon patient request if the prescription is for a schedule II opioid drug., 157, cm, 04/16/23 11:33:00 EST, Height... Start Date: 04/17/23 Status: Ordered lidocaine 5% topical ointment See Instructions, APPLY TO AFFECTED AREA 3 TIMES A DAY, # 35.44 Gm, 11 Refills, Maintenance, 02/28/22 8:51:00 EST, [facility]/pharmacy #4471, 30, APPLY TO AFFECTED AREA 3 TIMES A DAY, 157.5, cm, 02/21/22 14:36:00 EST, Height Start Date: 02/28/22 Status: Ordered lidocaine 5% topical ointment See Instructions, APPLY TO AFFECTED AREA 3 TIMES A DAY, # 35.44 Gm, 11 Refills, Maintenance, 07/03/22 18:22:00 EDT, [facility]/pharmacy #[id number], 30, Duplicate Rx. Original sent 07/03/22 with routing error. Re-sending to pharmacy, APPLY TO AFFECTED AREA 3 TIMES A... Start Date: 07/03/22 Status: Ordered losartan 50 mg oral tablet See Instructions, TAKE 1 TABLET BY MOUTH EVERY DAY, # 90 tablet, 1 Refills, Maintenance, 03/11/23 15:50:00 EST, [facility] 54222, 157.5, cm, 02/19/23 9:20:00 EST, Height Start Date: 03/11/23 Status: Ordered Lyrica 25 mg oral capsule See Instructions, 1 capsule By Mouth 1 time daily at bedtime. E11.9, # 30 each, 5 Refills, Maintenance, 01/21/23 15:40:00 EDT, Capsule, [facility]/pharmacy #[id number], Partial fill upon patient request if the prescription is for a schedule II opioid drug., 157.5,... Start Date: 01/21/23 Status: Ordered mirtazapine 15 mg oral tablet 1 tablet = 15 mg, By Mouth, Daily at bedtime, # 30 tablet, 4 Refills, Maintenance, 12/06/22 13:07:00 EDT, Tablet, [facility]/pharmacy #[id number], Partial fill upon patient request if the prescription is for a schedule II opioid drug., 157.5, cm, 11/26/22 14:11:00... Start Date: 12/06/22 Stop Date: 05/05/23 Status: Ordered Narcan 4 mg/0.1 mL nasal spray = 4 mg, Nares, Both, Once, # 2 each, 2 Refills, Soft Stop, 02/22/23 14:30:00 EST, [facility]/pharmacy #[id number], Partial fill upon patient request if the prescription is for a schedule II opioid drug., 157.5, cm, 02/19/23 9:20:00 EST, Height Start Date: 02/22/23 Status: Ordered [place]-3 Fish Oil 1000 mg oral capsule 1 capsule = 1,000 mg, By Mouth, Daily, # 90 capsule, 1 Refills, Maintenance, 08/01/22 10:17:00 EDT,[facility]/pharmacy #[id number], Partial fill [...] Maintenance, 06/14/22 16:40:00 EDT, EC Tablet, [facility]/pharmacy #[id number], Partial fill upon patient request if the prescription is for a schedule II opioid drug., 157.5,... Start Date: 06/14/22 Status: Ordered oxyCODONE 10 mg oral tablet TAKE 1/2 TAB EVERY 12 HOURS NEEDED FOR SEVERE NECK/LOW BACK PAIN. DO NOT FILL UNTIL 05/01/21 Start Date: 06/02/21 Status: Ordered Pen [place], 31 G x 8 mm BD Ultra [...] 12/06/22 13:08:00 EDT, Route to Pharmacy Electronically, [facility]/pharmacy #[id number], Partial fill upon patient request if the prescription is for a schedule II opi... Start Date: 12/06/22 Stop Date: 05/05/23 Status: Ordered riddler operator grabber tool riddler operator grabber tool, See Instructions, # 1 each, Refills 0, Tot. Refills 0, Maintenance, please dispense one riddler operator grabber tool, ICD 10 M54.6, length [...] tablet, 10 Refills, Maintenance, 01/17/23 8:54:00 EDT, [facility], 157.5, cm, 12/28/22 15:12:00 EDT, Height Start Date: 01/17/23 Status: Ordered Trulicity Pen 4.5 mg/0.5 mL subcutaneous solution See Instructions, INJECT 4.5 MG SUBCUTANEOUSLY ONCE A WEEK, # 2 mL, 5 Refills, Maintenance, 11/21/22 8:33:00 EDT, [facility], 157.5, cm, 11/16/22 13:50:00 EDT, Height Start Date: 11/21/22 Status: Ordered valACYclovir 500 mg oral tablet 1, tablet, By Mouth, 2 times a day, PRN, # 6 tablet, Refills 0, Maintenance, NEEDED FOR OUTBREAKS, 05/22/23 12:07:00 EST, Route to Pharmacy Electronically, [facility] 92185, 157, cm, 05/06/23 14:23:00 EST, Height, 88.3, [...] Refills, Maintenance, 09/17/22 15:25:00 EDT, [facility], 157.5, cm, 09/05/22 16:22:00 EDT, Height Start [...] 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 No wall motion abnormalities, Does [...] Name: Rose Mary FISCHER, Sergo Cole Position: [facility] Physician - Primary Care Member Role: PCP Address: Address: [address] [place] [id number]- Name: Lizbeth Collins [place] Position: [facility] RN Member Role: Primary Care Nurse Care Team Related Persons Name: LB HENLEY Address: [address] [place] [address] Name: LB HENLEY Address: [address] [address] Name: MILENA CUBA Address: [address] [facility] [address] [place] [address]
--- OUTSIDE RECORDS SUMMARY | 2024-01-23 14:36 | XMS_ITS | Continuity of Care Document ---
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 Name Role Phone Sergo Bazzi MD Primary Care Physician Encounter [facility] [place] Date(s): 01/09/22 - 02/08/22 [facility] [address] [place], [place] [address] Attending Physician: Admtr, [id number] Admitting Physician: Admtr, [...] (oldterm) 8 01/21/08 Given 1Result Comment: [01/22/2017] [facility] [id number] 2Admin Note: vis given dated 10/24/12 3Admin Note: vis given dated 10/01/11 4Admin Note: vis 5Admin Note: vis 6Admin Note: vis given: 10/27/2006 7Admin Note: vis given : 10/10/2005 8Admin Note: vis given 2007- Medications acetaminophen 500 mg oral tablet 2 tablet, By Mouth, 4 times a day, PRN NEEDED FOR PAIN, # 100 tablet, 1 Refills, Acute, 219:52:00 EDT, [facility] 19932, 157.48, cm, 10/11/20 9:39:00 EDT, Height Start Date: 10/26/20 Status: Ordered Alcohol Pads See Instructions, # 200 each, Refills 11, Tot. Refills 11, Maintenance, To cleans before injections5 x a day., 03/03/21 9:18:00 EST, E11.65, Compound, 157.48, cm, 03/01/21 15:54:00 EST, Height Start Date: 03/03/21 Stop Date: 02/26/22 Status: Ordered Ixjpz-Qklqql-Pswf 300 mg oral capsule 1 capsule, By Mouth, 2 times a day, NOT COVERED., # 60 capsule, 11 Refills, [facility], 157.48, cm, 01/27/21 9:30:00 EDT, Height Start Date: 01/30/21 Status: Ordered ammonium lactate 12% topical cream 1 application, Topically, 2 times a day, # 385 Gm, 5 Refills, Maintenance, 09/08/21 9:35:00 EDT, Cream, [facility]/pharmacy #[id number], Partial fill upon patient request if the [...] tablet, 11 Refills, Maintenance, 08/19/20 16:26:00 EDT, [facility] 23576, 30, TAKE 1 TABLET BY MOUTH DAILY. [...] 11/10/21 9:17:00 EDT, Route to Pharmacy Electronically, [facility]/pharmacy #[id number], Partial fill upon patient request [...] # 16 mL, 5 Refills, 12/29/21 15:10:00 EDT,[facility]/pharmacy #[id number], USE 1 SPRAY IN EACH [...] mL, 9 Refills, Maintenance, 08/24/21 9:25:00 EDT, [facility], Partial fill upon patient request if the prescription is for a schedule II opioid d... Start Date: 08/24/21 Status: Ordered Lantus Solostar Pen 100 units/mL subcutaneous solution See Instructions, Decreased to 60U once a day as of 12/29/19, # 30 mL, 9 Refills, Maintenance, 09/20/20 15:10:00 EDT, [facility], NEEDS 30 ML FOR 30 DAY SUPPLY E11.9, 157.48, cm, 05/31/20 9:41:00 EST, Height Start Date: 09/20/20 Status: Ordered lidocaine 5% topical ointment See Instructions, APPLY TO AFFECTED AREA 3 TIMES A DAY, # 35.44 Gm, 11 Refills, Physician Stop 02/28/22 8:51:00 EST, 01/29/22 8:51:00 EDT, [facility]/pharmacy #[id number], 30, APPLY TO AFFECTED AREA [...] 5 Refills, Maintenance, 09/18/21 12:21:00 EDT, Capsule, [facility]/pharmacy #[id number], Partial fill upon patient request [...] Refills, Maintenance, 01/29/22 8:52:00 EDT, EC Tablet, [id number], Partial fill [...] 11:08:00 EST, 01/09/22 11:08:00 EDT, Chew Tablet, [facility]/pharmacy #[id number], Partial fill upon patient request if the prescription is for a schedule II... Start Date: 01/09/22 Stop Date: 04/24/22 Status: Ordered SUMAtriptan 25 mg oral tablet 1 tablet, By Mouth, Daily, PRN NEEDED FOR MIGRAINES, for 30 days, MAY RPT DOSE AFTER 2 HRS TO MAX OF 2, # 12 tablet, 7 Refills, Physician Stop 09/16/22 11:02:00 EDT, 01/19/22 11:02:00 EDT, [facility]/pharmacy #[id number], 157.5, cm, 01/09/22 10:18:00 EDT, Height Start Date: 01/19/22 Stop Date: 09/16/22 Status: Ordered Topamax 25 mg oral tablet 3 tablet = 75 mg, By Mouth, Daily at bedtime, # 90 tablet, 6 Refills, Maintenance, 01/19/22 10:34:00 EDT, Tablet, [facility]/pharmacy #[id number], 157.5, cm, 01/09/22 10:18:00 EDT, Height Start Date: 01/19/22 Stop Date: 08/17/22 Status: Ordered Trulicity Pen 3 mg/0.5 mL subcutaneous solution See Instructions, INJECT 0.5ML SUBCUTANEOUSLY EVERY WEEK, ROTATE INJECTION SITES, # 2 mL, 5 Refills, 01/23/22 16:33:00 EDT, [facility], 157.5, cm, 01/20/22 13:38:00 EDT, [...] 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 No wall motion abnormalities, Does [...] Event Display: Progress Note Hospital Authored Date: [id number] Patient: MICHAEL HENLEY Age: 51 years Sex: [...] ambulance to go to the ED now. Note * Event Display: CT Scan Abdomen, Non- Authored Date: Patient Care team information Care Team Personnel Name: Rose Mary FISCHER, Sergo Cole Position: [facility] Primary Care Physician Member Role: PCP Address: Address: [address] [place] [id number]- Care Team Related Persons Name: LB HENLEY Address: home [address] [address] Name: LB HENLEY Address: [address] [place] [address] Name: MILENA CUBA Address: home [address] [facility] [address] [place] [address]
--- OUTSIDE RECORDS SUMMARY | 2024-01-23 14:37 | XMS_ITS | Continuity of Care Document ---
Author Organization [facility] Address [address] [place] [address]- Care Team Providers Care Ranch Cook Name Role Phone Rose Mary FISCHER, Segro Cole Primary Care Physician Encounter [facility] [place] Date(s): 10/05/22 - 11/04/22 [facility] [address] [place], [place] [address] Attending Physician: Admmina, [id number] Admitting Physician: Admtr, [...] 1Result Comment: [01/22/2017] [facility] 2001 [id number] 2Admin Note: vis given dated 10/24/12 3Admin Note: vis given dated 10/01/11 4Admin Note: vis 5Admin Note: vis 6Admin Note: vis given: 10/27/2006 7Admin Note: vis given : 10/10/2005 8Admin Note: vis given 2007- Medications acetaminophen 500 mg oral tablet 2 tablet, By Mouth, 4 times a day, PRN NEEDED FOR PAIN, # 100 tablet, 1 Refills, Acute, 219:52:00 EDT, [facility], 157.48, cm, 10/11/20 9:39:00 EDT, Height Start Date: 10/26/20 Status: Ordered Alcohol Pads See Instructions, # 200 each, Refills 11, Tot. Refills 11, Maintenance, To cleans before injections5 x a day., 03/03/21 9:18:00 EST, E11.65, Compound, 157.48, cm, 03/01/21 15:54:00 EST, Height Start Date: 03/03/21 Stop Date: 02/26/22 Status: Ordered Beafv-Vakfhb-Tfza 300 mg oral capsule 1 capsule, By Mouth, 2 times a day, NOT COVERED., # 60 capsule, 11 Refills, [facility], 157.48, cm, 01/27/21 9:30:00 EDT, Height Start Date: 01/30/21 Status: Ordered ammonium lactate 12% topical cream 1 application, Topically, 2 times a day, # 385 Gm, 3 Refills, Maintenance, 08/24/22 14:16:00 EDT, Cream, [facility]/pharmacy #[id number], Partial fill upon patient request if the prescription is for a schedule IIopioid drug., 1 application Topically 2 times a day... Start Date: 08/24/22 Stop Date: 12/22/22 Status: Ordered atorvastatin 80 mg oral tablet 1 tablet = 80 mg, By Mouth, Daily, replaces Simvastatin, # 90 tablet, 4 Refills, Maintenance, 08/26/22 14:22:00 EDT, Tablet, [facility]/pharmacy #4471, replaces simvastatin, 157.5, cm, 11/29/21 15:59:00 [...] 11 Refills, Maintenance, 07/09/22 10:30:00 EDT, [facility]/pharmacy #4471, 30, 1 tablet By Mouth Daily,Instr:INSTR:TAKE IT 2 HOURS SEPARATE FROM ORLISTAT ([place]), 157... Start Date: 07/09/22 Status: Ordered diazepam 10 mg oral tablet See Instructions, PRN, 1/2 tablet By Mouth in AM and 1 tab at HS, # 45 tablet, Refills 4, Tot. Refills 4, Maintenance, as needed for anxiety, 08/30/22 13:32:00 EDT, Instructions Replace Required Details, Route to Pharmacy Electronically, [facility]/pharmacy... Start Date: 08/30/22 Status: Ordered diclofenac 1% [...] Refills, Maintenance, 09/20/22 9:36:00 EDT, [facility], 30, INHALE 1 PUFF BY MOUTH TWICE A DAY, 157.5, cm, 09/05/22 16:22:00 EDT, Height Start Date: 09/20/22 Status: Ordered fluticasone 50 mcg/inh nasal spray See Instructions, SPRAY 1 SPRAY INTO EACH NOSTRIL EVERY DAY, # 16 mL, 5 Refills, Maintenance, 07/05/22 16:20:00 EDT, [facility], 30, SPRAY 1 SPRAY INTO EACH NOSTRIL [...] mL, 6 Refills, Maintenance, 06/12/22 10:00:00 EDT, [facility], Partial fill upon patie... [...] mL, 9 Refills, Maintenance, 06/19/22 16:50:00 EDT, [facility], Partial [...] Date: 10/18/22 Stop Date: 01/16/23 Status: Ordered Grimes-3 Fish Oil 1000 mg oral capsule 1 [...] 05/01/21 Start Date: 06/02/21 Status: Ordered Pen [place], 31 G x 8 mm BD Ultra [...] Date: 08/30/22 Stop Date: 01/27/23 Status: Ordered environmental education specialist grabber tool environmental education specialist grabber tool, See Instructions, # 1 each, Refills 0, Tot. Refills 0, Maintenance, please dispense one environmental education specialist grabber tool, ICD 10 M54.6, length of use 1 month, 04/12/22 10:13:00 EST, Supply Start Date: 04/12/22 Status: Ordered replacement hospital bed with mattress replacement hospital bed with mattress, See Instructions, # 1 each, Refills 0, Tot. Refills 0, Maintenance, please dispense 1 replacement hospital bed wt bari, DX G89.4, length of use lifetime, 06/20/22 [...] Refills, Maintenance, 06/26/22 10:14:00 EDT, Tablet, [facility], 157.5, cm, 06/21/22 8:43:00 EDT, Height Start Date: 06/26/22 Stop Date: 01/22/23 Status: Ordered Trulicity Pen 3 mg/0.5 mL subcutaneous solution See Instructions, INJECT 0.5ML SUBCUTANEOUSLY EVERY WEEK, ROTATE INJECTION SITES, # 2 mL, 5 Refills, 01/23/22 16:33:00 EDT, [facility], 157.5, cm, 01/20/22 13:38:00 EDT, Height Start Date: 01/23/22 Status: Ordered Trulicity Pen 4.5 mg/0.5 mL subcutaneous solution See Instructions, 4.5 mg Subcutaneous Infusion weekly. E11.9, # 4 each, 5 Refills, Maintenance, 06/19/22 17:00:00 EDT, [facility], Partial fill upon patient request if the prescription is for a schedule II opioid drug., 157.5, cm, ... 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 *Briana Garces, Control Operator Flow Coat, ICP [phone] Confirmed Active PTSD (post-traumatic stress disorder) Confirmed [...] Team Personnel Name: Sergo Bazzi MD Position: [facility] Physician - Primary Care Member Role: PCP Address: Address: [address] [place] [address] [place] [address]- Name: Lizbeth Collins [place] Position: [facility] RN Member Role: Primary Care Nurse Care Team Related Persons Name: LB HENLEY Address: home [address] [address] Name: LB HENLEY Address: [address] [place] [address] Name: MILENA CUBA Address: home [address] [place] [address] [address] [place] [address]
--- OUTSIDE RECORDS SUMMARY | 2024-01-23 14:37 | XMS_ITS | Continuity of Care Document ---
Author Organization [facility] Address [address] [place] [address]- Care Team Providers Care Parts Counter Associate Name Role Phone Rose Mary FISCHER, Sergo Cole Primary Care Physician Encounter [facility] Date(s): 03/21/21 - 04/20/21 [facility] [address], [place] [address] [place] Attending Physician: Broderick Washburn Admitting Physician: AdmBroderick enriquez Referring Physician: [id number] Allergies, Adverse Reactions, Alerts Substance Reaction Severity [...] 1Result Comment: [01/22/2017] [facility] [id number] 2Admin Note: vis given dated 10/24/12 3Admin Note: vis given dated 10/01/11 4Admin Note: vis 5Admin Note: vis 6Admin Note: vis given: 10/27/2006 7Admin Note: vis given : 10/10/2005 8Admin Note: vis given 2007- Medications acetaminophen 500 mg oral tablet 2 tablet, By Mouth, 4 times a day, PRN NEEDED FOR PAIN, # 100 tablet, 1 Refills, Acute, 219:52:00 EDT, [facility], 157.48, cm, 10/11/20 9:39:00 EDT, Height Start Date: 10/26/20 Status: Ordered Acyclovir Maintenance, 11/13/18 15:06:54 EDT Start Date: 11/13/18 Status: Ordered Admelog SoloStar 100 units/mL injectable solution 10 - 25 units, Subcutaneous Infusion, 3 times a day with meals, Inject via sliding scale, Max Dailydose 75u, 90 day supply, E11.9, # 90 mL, 5 Refills, Maintenance, 09/02/19 13:54:00 EDT, [facility], E11.9, 157.48, cm, 04/27/19 15:43:... Start Date: 09/02/19 Status: Ordered Alcohol Pads See Instructions, # 200 each, Refills 11, Tot. Refills 11, Maintenance, To cleans before injections5 x a day., 03/03/21 9:18:00 EST, E11.65, Compound, 157.48, cm, 03/01/21 15:54:00 EST, Height Start Date: 03/03/21 Stop Date: 02/26/22 Status: Ordered Pmjyp-Mhczjw-Tfnh 300 mg oral capsule 1 capsule, By Mouth, 2 times a day, NOT COVERED., # 60 capsule, 11 Refills, [facility], 157.48, cm, 01/27/21 9:30:00 EDT, Height Start Date: 01/30/21 Status: Ordered ammonium lactate 12% topical cream 1 application, Topically, 2 times a day, # 385 Gm, 5 Refills, Maintenance, 12/19/20 14:08:00 EDT, Cream, [facility]/pharmacy #4471, Partial [...] Refills, Maintenance, 06/21/20 17:44:00 EDT, [facility], 157.48, cm, 05/31/20 9:41:00 EST, Height Start Date: 06/21/20 Status: Ordered atorvastatin 80 mg oral tablet 1 tablet = 80 mg, By Mouth, Daily, replaces Simvastatin, # 90 tablet, 4 Refills, Maintenance, 02/23/20 11:05:00 EST, Tablet, [facility]/pharmacy #4471, replaces simvastatin, 157.48, cm, 01/25/20 15:23:00 EDT, Height Start Date: 02/23/20 Stop Date: 05/18/21 Status: Ordered BD ultra fine III pen needles [id number] BD ultra fine III pen needles [id number], See Instructions, # 360 each, Refills 3, [...] A DAY, # 57 Gm, 4 Refills, [facility], 30, APPLY TO AFFECTED AREA TWICE A DAY, 157.48, cm, 11/11/20 9:37:00 EDT, Height Start Date: 01/02/21 Status: Ordered Daily David oral tablet 1 tablet, By Mouth, Daily, INSTR:TAKE IT 2 HOURS SEPARATE FROM ORLISTAT ([place]), # 30 tablet, 11 Refills, Maintenance, 08/19/20 16:26:00 EDT, [facility], 30, TAKE 1 TABLET BY MOUTH DAILY. [...] EVERY DAY, # 16 mL, 5 Refills, [facility], 30, USE 1 SPRAY IN EACH NOSTRIL [...] 3, Maintenance, use up to check blood [id number] per day. 90 DAY SUPPLY, E11.9, 03/03/21 9:18:00 EST, E11.9, Compound, 157.48, cm, 03/01/21 15:54:00 EST, Height Start Date: 03/03/21 Stop Date: 02/26/22 Status: Ordered Gloves See Instructions, # 100 each, Refills 11, Tot. Refills 11, Maintenance, for incontinance., 229:45:00 EST, Supply Start Date: 04/04/21 Status: Ordered Gloves See Instructions, # 2 [...] mL, 3 Refills, Maintenance, 01/13/21 8:58:00 EDT, [facility], Partial fill upon patient [...] mL, 9 Refills, Maintenance, 09/20/20 15:10:00 EDT, [facility], NEEDS 30 ML FOR 30 [...] Refills, Maintenance, 12/19/20 14:08:00 EDT, Film, [facility]/pharmacy #1011, Partial fill upon patient request if the prescription is for a schedule II opioid drug., 1 patch Topically Daily, 157.48, cm, 11/11/20 9:37:0... Start Date: 12/19/20 Status: Ordered losartan 50 mg oral tablet 1 tablet, By Mouth, Daily, # 30 tablet, 5 Refills, Maintenance, 12/02/20 5:43:00 EDT[facility] 157.48, cm, 11/11/20 9:37:00 EDT, Height [...] request Start Date: 02/16/19 Status: Ordered Pen [place], 31 G x 8 mm BD Ultra [...] a day, # 90 capsule, 1 Refills, [facility] 24444, 157.48, cm, 03/21/21 13:21:00 EST, Height Start Date: 03/27/21 Status: Ordered Topamax 25 mg oral tablet 2 tablet = 50 mg, By Mouth, Daily at bedtime, # 60 tablet, 6 Refills, Maintenance, 04/21/20 13:35:00 EST, Tablet, [facility]/pharmacy #4471, 157.48, cm, 03/04/20 14:14:00 EST, Height Start Date: 04/21/20 Stop Date: 11/17/20 Status: Ordered Trulicity Pen 1.5 mg/0.5 mL subcutaneous solution 0.5 mL = 1.5 mg, Subcutaneous Injection, Every Saturday, for 90 days, # 7.5 mL, 3 Refills, Hard Stop 12/08/21 15:26:00 EDT, 12/13/20 15:26:00 EDT, Solution, [facility], E11.65, 157.48, cm, 04/27/19 15:43:00 EST, Height Start Date: 12/13/20 Stop Date: 12/08/21 Status: Ordered Trulicity Pen 1.5 mg/0.5 mL subcutaneous solution 0.5 mL = 1.5 mg, Subcutaneous Injection, Every Saturday, for 90 days, E11.9, # 7.5 mL, 3 Refills, Hard Stop 12/03/22 15:26:00 EDT, 12/08/21 15:26:00 EDT, Solution, [facility], E11.65, 157.48, cm, 03/04/20 14:14:00 EST, Height Start Date: 12/08/21 Stop Date: 12/03/22 Status: Ordered Trulicity Pen 3 mg/0.5 mL subcutaneous solution 0.5 mL = 3 mg, Subcutaneous Injection, Every week, rotate injection sites, # 2 mL, 6 Refills, Maintenance, 03/01/21 16:55:00 EST, Solution, [facility], Partial fill upon patient request [...] Active *Briana Garces, Care Coor dinator, ICP [phone](Confirmed) Active Reflux(Confirmed) Active Hepatic steatosis(Confirmed) Active -EF [...]
--- OUTSIDE RECORDS SUMMARY | 2024-01-23 14:37 | XMS_ITS | Continuity of Care Document ---
Author Organization [facility] Address [address] [facility], [address] d Floor, [address] [place] [address]- Care Team Providers Care Motor Overhauler Name Role Phone Sergo Bazzi MD Primary Care Physician [place] [facility] [place]14/19 [facility] [address], [address], [address] [place] [address] [facility] Attending Physician: Admtr, [id number] Admitting Physician: Admtr, [...] [01/22/2017] [facility] [id number] 2Admin Note: vis given dated 10/24/12 3Admin [...] tablet, 5 Refills, Maintenance, 05/05/19 11:32:00 EST, [facility]32, 157.48, cm, 04/27/19 15:43:00 EST, Height Start Date: 05/05/19 Status: Ordered atorvastatin 80 mg oral tablet 1 tablet = 80 mg, By Mouth, Daily, replaces Simvastatin, # 90 tablet, 1 Refills, Maintenance, Tablet, Route to Pharmacy Electronically, [id number], [facility]/pharmacy #4471, replaces simvastatin Start Date: 06/06/18 Stop Date: 12/03/18 Status: Ordered capsaicin 0.075% topical cream 1 application, Topically, 2 times a day, for 30 days, # 60 Gm, 4 Refills, Acute 10/26/19 10:54:00 EDT, 05/29/19 10:54:00 EST, Cream, [facility]/pharmacy #4471, 1 application Topically 2 times a [...] 6 Refills, Maintenance, 05/15/19 15:00:00 EST, Gel, [facility], 157.48, cm, 04/27/19 15:43:00 EST, Height [...] 0 Refills, Maintenance, 04/27/19 11:54:00 EST, Tablet, [facility]/pharmacy #4471, 157.48, cm, 03/09/19 15:46:00 EST, Height [...] DAY, # 16 mL, 1 Refills, Maintenance, [facility], 30, USE 1 SPRAY IN EACH NOSTRIL [...] 11 Refills, Maintenance, 05/15/19 15:00:00 EST, Ointment, [facility]/pharmacy #4471, 1 application Topically 3 times a [...] By Mouth, Daily, # 30 tablet, Refills 5, Tot. Refills 5, Maintenance, 06/12/19 13:46:00 EDT, Route to Pharmacy Electronically, [facility]/pharmacy #4471, 157.48, cm, 04/27/19 15:43:00 EST,Height Start Date: 06/12/19 Stop Date: 12/09/19 Status: Ordered mirtazapine 15 mg oral tablet TAKE 1 TABLET BY MOUTH EVERY DAY IN THE EVENING Start Date: 10/14/18 Status: Ordered oxyCODONE 5 mg oral tablet 5 mg, 1, tablet, By Mouth, Every 12 hours, PRN, Refills 0, Tot. 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 No wall motion abnormalities, Does [...]
--- OUTSIDE RECORDS SUMMARY | 2024-01-23 14:37 | XMS_ITS | Continuity of Care Document ---
Author Organization [facility] Address [address] [place] [address]- Care Team Providers Care Cafeteria Or Lunchroom Checker Name Role Phone Rose Mary FISCHER, Sergo Cole Primary Care Physician Encounter [facility] [place] Date(s): 03/18/23 - 03/25/23 [facility] [address], [place] [address] Attending Physician: Luiz De Oliveira MD Referring Physician: Aracelis Chery MD Allergies, [...] 1Result Comment: [01/22/2017] [facility] [id number] 2Admin Note: vis given dated 10/24/12 3Admin [...] 100 tablet, 1 Refills, Acute, 219:52:00 EDT, [facility], 157.48, cm, 10/11/20 9:39:00 EDT, Height Start Date: 10/26/20 Status: Ordered Alcohol Pads See Instructions, # 200 each, Refills 11, Tot. Refills 11, Maintenance, To cleans before injections5 x a day., 03/03/21 9:18:00 EST, E11.65, Compound, 157.48, cm, 03/01/21 15:54:00 EST, Height Start Date: 03/03/21 Stop Date: 02/26/22 Status: Ordered Ramox-Cgxema-Xkow 300 mg oral capsule 1 capsule, By Mouth, 2 times a day, NOT COVERED., # 60 capsule, 11 Refills, [facility], 157.48, cm, 01/27/21 9:30:00 EDT, Height Start Date: 01/30/21 Status: Ordered ammonium lactate 12% topical cream 1 application, Topically, 2 times a day, # 385 Gm, 1 Refills, Maintenance, 12/22/22 14:16:00 EDT, Cream, [facility]/pharmacy #[id number], Partial fill upon patient request if the prescription is for a schedule IIopioid drug., 1 application Topically 2 times a day... Start Date: 12/22/22 Stop Date: 02/20/23 Status: Ordered atorvastatin 80 mg oral tablet 1 tablet = 80 mg, By Mouth, Daily, replaces Simvastatin, # 90 tablet, 1 Refills, Maintenance, 11/19/23 14:22:00 EDT, Tablet, [facility]/pharmacy #[id number], replaces simvastatin, 157.5, cm, 11/26/22 14:11:00 EDT, Height Start Date: 11/19/23 Stop Date: 05/17/24 Status: Ordered BD Single Use Swab 70% topical pad See Instructions, TO CLEANS BEFORE INJECTIONS 5 X A DAY., # 150 Unknown, 11 Refills, Maintenance, 08/16/22 10:15:00 EDT, [facility], 30, TO CLEANS BEFORE INJECTIONS 5 X A DAY., 157.5, cm, 08/01/22 9:27:00 EDT, Height Start Date: 08/16/22 Status: Ordered capsaicin 0.075% topical cream See Instructions, APPLY TO AFFECTED AREA TWICE A DAY, # 57 Gm, 4 Refills, Maintenance, 08/24/22 14:16:00 EDT, [facility]/pharmacy #[id number], 30, APPLY TO AFFECTED AREA TWICE [...] tablet, 11 Refills, Maintenance, 07/09/22 10:30:00 EDT, [facility]/pharmacy #[id number], 30, 1 tablet By Mouth Daily,Instr:INSTR:TAKE [...] Gm, 1 Refills, Maintenance, 12/14/22 6:14:00 EDT, [facility]/pharmacy #[id number], 30, APPLY TOPICALLY 4 TIMES A DAY NOT TO EXCEED 16 GRAMS/DAY/SING... Start Date: 12/14/22 Status: Ordered docusate sodium 100 mg oral capsule See Instructions, TAKE 1 CAPSULE BY MOUTH TWICE A DAY NEEDED FOR CONSTIPATION, # 60 capsule, 5 Refills, Maintenance, 07/03/22 18:20:00 EDT, [facility]/pharmacy #[id number], Duplicate Rx. Original sent 07/03/22 with routing error. Re- sending to pharmacy, 157.5, cm... Start Date: 07/03/22 Status: Ordered docusate sodium 100 mg oral capsule 100 mg, 1, capsule, By Mouth, 2 times a day, PRN, # 60 capsule, Refills 5, Tot. Refills 5, Maintenance, as needed for constipation, 06/12/22 9:52:00 EDT, Route to Pharmacy Electronically, [facility]/pharmacy #[id number], Partial fill upon patient request if the pr... Start Date: 06/12/22 Status: Ordered esomeprazole 40 mg oral enteric coated capsule 1 capsule = 40 mg, By Mouth, Daily, # 90 capsule, 1 Refills, Maintenance, 03/07/23 13:32:00 EST, [facility]/pharm[facility] #[id number], Partial fill upon patient request if [...] each, 0 Refills, Maintenance, 09/20/22 9:36:00 EDT, [facility], 30, INHALE 1 PUFF BY MOUTH TWICE A DAY, 157.5, cm, 09/05/22 16:22:00 EDT, Height Start Date: 09/20/22 Status: Ordered fluticasone 50 mcg/inh nasal spray See Instructions, SPRAY 1 SPRAY INTO EACH NOSTRIL EVERY DAY, # 16 mL, 5 Refills, Maintenance, 07/05/22 16:20:00 EDT, [facility], 30, SPRAY 1 SPRAY INTO EACH NOSTRIL [...] tablet, 4 Refills, Maintenance, 03/11/23 15:50:00 EST, [facility], 157.5, cm, 02/19/23 9:20:00 EST, Height Start [...] mL, 6 Refills, Maintenance, 11/26/22 14:55:00 EDT, [facility], Partial fill upon patie... [...] 5 Refills, Maintenance, 08/17/22 9:03:00 EDT, Tablet, [facility]/pharmacy #[id number], Partial fill upon patient request if the prescription is for a schedule II opioid drug., 157.5, cm, ... Start Date: 08/17/22 Stop Date: 02/13/23 Status: Ordered Lantus Solostar Pen 100 units/mL subcutaneous solution See Instructions, Take 45 units in the AM and 45 units daily at bedtime. E11.9., # 30 mL, 9 Refills, Maintenance, 11/26/22 14:55:00 EDT, [facility], Partial fill upon patient requestif the prescription is for a schedule II opioid lucas... Start Date: 11/26/22 Status: Ordered lidocaine 5% topical ointment See Instructions, APPLY TO AFFECTED AREA 3 TIMES A DAY, # 35.44 Gm, 11 Refills, Maintenance, 02/28/22 8:51:00 EST, [facility] #[id number], 30, APPLY TO AFFECTED AREA 3 TIMES A DAY, 157.5, cm, 02/21/22 14:36:00 EST, Height Start Date: 02/28/22 Status: Ordered lidocaine 5% topical ointment See Instructions, APPLY TO AFFECTED AREA 3 TIMES A DAY, # 35.44 Gm, 11 Refills, Maintenance, 07/03/22 18:22:00 EDT, [facility] #[id number], 30, Duplicate Rx. Original sent 07/03/22 [...] tablet, 1 Refills, Maintenance, 03/11/23 15:50:00 EST, [facility] 92318, 157.5, cm, 02/19/23 9:20:00 EST, Height Start Date: 03/11/23 Status: Ordered Lyrica 25 mg oral capsule See Instructions, 1 capsule By Mouth 1 time daily at bedtime. E11.9, # 30 each, 5 Refills, Maintenance, 01/21/23 15:40:00 EDT, Capsule, [facility]/pharm[facility] #[id number], Partial fill upon patient request if the prescription is for a schedule II opioid drug., 157.5,... Start Date: 01/21/23 Status: Ordered mirtazapine 15 mg oral tablet 1 tablet = 15 mg, By Mouth, Daily at bedtime, # 30 tablet, 4 Refills, Maintenance, 12/06/22 13:07:00 EDT, Tablet, [facility] #[id number], Partial fill upon patient request if [...] EST, Height Start Date: 02/22/23 Status: Ordered [place]-3 Fish Oil 1000 mg oral capsule 1 [...] Refills, Maintenance, 06/14/22 16:40:00 EDT, EC Tablet, [facility]/pharm[facility] #[id number], Partial fill upon patient request if the prescription is for a schedule II opioid drug., 157.5,... Start Date: 06/14/22 Status: Ordered oxyCODONE 10 mg oral tablet TAKE 1/2 TAB EVERY 12 HOURS NEEDED FOR SEVERE NECK/LOW BACK PAIN. DO NOT FILL UNTIL 05/01/21 Start Date: 06/02/21 Status: Ordered Pen [place], 31 G x 8 mm BD [...] 12/06/22 13:08:00 EDT, Route to Pharmacy Electronically, [facility]/pharm[facility] #[id number], Partial fill upon patient request if the prescription is for a schedule II opi... Start Date: 12/06/22 Stop Date: 05/05/23 Status: Ordered water resources technical officer grabber tool water resources technical officer grabber tool, See Instructions, # 1 each, Refills 0, Tot. Refills 0, Maintenance, please dispense one water resources technical officer grabber tool, ICD 10 M54.6, length of [...] tablet, 10 Refills, Maintenance, 01/17/23 8:54:00 EDT, [facility], 157.5, cm, 12/28/22 15:12:00 EDT, Height Start Date: 01/17/23 Status: Ordered Trulicity Pen 4.5 mg/0.5 mL subcutaneous solution See Instructions, INJECT 4.5 MG SUBCUTANEOUSLY ONCE A WEEK, # 2 mL, 5 Refills, Maintenance, 11/21/22 8:33:00 EDT, [facility], 157.5, cm, 11/16/22 13:50:00 EDT, Height Start Date: 11/21/22 Status: Ordered valACYclovir 500 mg oral tablet 1, tablet, By Mouth, 2 times a day, PRN, # 6 tablet, Refills 1, Maintenance, NEEDED FOR OUTBREAKS, 03/08/23 15:42:00 EST, Route to Pharmacy Electronically, [facility] 68[facility], 157.5, cm, 02/19/23 9:20:00 EST, Height Start Date: 03/08/23 Status: Ordered Vascepa 1 g oral capsule 2 capsule = 2 Gm, By Mouth, 2 times a day, # 360 capsule, 5 Refills, Maintenance, 05/03/20 15:59:00EST, Capsule, [facility] #[id number], 157.48, cm, 03/04/20 14:14:00 EST, Height Start Date: 05/03/20 Status: Ordered Ventolin HFA 108 mcg/inh inhalation aerosol with adapter 1 puffs, Inhalation, 4 times a day, PRN NEEDED FOR WHEEZING, # 18 each, 0 Refills, Maintenance, 09/17/22 15:25:00 EDT, [facility] 337[facility], 157.5, cm, 09/05/22 16:22:00 EDT, Height Start [...] 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 *Briana Garces, Acidizer Water Well, ICP [phone] Confirmed Active PTSD (post-traumatic stress disorder) Confirmed Active Reflux Confirmed Active Severe obesity (BMI 35.0-39.9) with comorbidity Confirmed Active Hepatic steatosis Confirmed Active Tubular adenoma of colon Confirmed Active 62059 -EF 60-65%. No wall motion abnormalities, Does [...] oldest [Reference Range]: 1 Height 157.5 cm (03/18/23 11:17 AM) Weight 88.6 kg (03/18/23 11:17 AM) Oxygen Saturation [94-100 %] 98 % (03/18/23 11:17 AM) Pulse Rate [55-90 bpm] 86 bpm (03/18/23 11:17 AM) Body Mass Index [18.5-24.99 kg/m2] 35.72 kg/m2 *>HHI* (03/18/23 11:17 AM) Blood Pressure [90-138/55-84 mm Hg] 143/ 82mm Hg *H* (03/18/23 11:17 AM) Respiratory Rate [16-30 br/min] 16 br/mi n (03/18/23 11:17 AM) Mode of Delivery (Oxygen) Room air (03/18/23 11:17 AM) Blood pressure sites Arm, left (03/18/23 11:17 AM) Weight Obtained Via Standing scale (03/18/23 11:17 AM) Social History Social History Type Response Smoking Status Never smoker entered on: 11/10/13 Sex Female EKG study * Event Display: ECG 12-Lead Authored Date: Please click on pdf link to open report * Event Display: ECG 12-Lead Authored Date: [id number] Ventricular Rate: 73 BPM Atrial Rate: 73 BPM P-R Interval: 166 ms QRS Duration: 72 ms Q-T Interval: 372 ms QTC Calculation(Bazett): 409 ms P Cresson: 50 degrees R Cresson: 7 degrees T Cresson: 51 degrees Sinus rhythm with Premature atrial complexes Otherwise normal ECG When compared with ECG of 18-MAY-2021 11:45, Premature atrial complexes are now Present Confirmed by DAVIS YARBROUGH ([id number]) on 03/19/2023 4:09:32 PM [place]: DAVIS YARBROUGH Patient Care team information Care Team Personnel Name: Rose Mary FISCHER, Sergo Cole Position: [facility] Physician - Primary Care Member Role: PCP Address: Address: [address] [place] [id number] Name: Lizbeth Collins [place] Position: [facility] RN Member Role: Primary Care Nurse Care Team Related Persons Name: LB HENLEY Address: home [address] [place] [address] Name: LB HENLEY Address: [address] [address] Name: MILENA CUBA Address: [address] [address]
--- OUTSIDE RECORDS SUMMARY | 2024-01-23 14:37 | XMS_ITS | Continuity of Care Document ---
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 Name Role Phone Sergo Bazzi MD Primary Care Physician [phone] [place] [facility] [place]/23/21 - 07/01/21 [facility] [address], [place] [address] Attending Physician: Not on Staff, Attending MD Admitting Physician: Stone FISCHER, Fausto Lester [...] 8 01/21/08 Given 1Result Comment: [01/22/2017] [facility] [id number] 2Admin Note: vis given dated 10/24/12 3Admin Note: vis given dated 10/01/11 4Admin Note: vis 5Admin Note: vis 6Admin Note: vis given: 10/27/2006 7Admin Note: vis given : 10/10/2005 8Admin Note: vis given 2007- Medications acetaminophen 500 mg oral tablet 2 tablet, By Mouth, 4 times a day, PRN NEEDED FOR PAIN, # 100 tablet, 1 Refills, Acute, 219:52:00 EDT, [facility] 127[facility], 157.48, cm, 10/11/20 9:39:00 EDT, Height Start Date: 10/26/20 Status: Ordered Alcohol Pads See Instructions, # 200 each, Refills 11, Tot. Refills 11, Maintenance, To cleans before injections5 x a day., 03/03/21 9:18:00 EST, E11.65, Compound, 157.48, cm, 03/01/21 15:54:00 EST, Height Start Date: 03/03/21 Stop Date: 02/26/22 Status: Ordered Zgqgd-Bgwpzo-Cqmq 300 mg oral capsule 1 capsule, By Mouth, 2 times a day, NOT COVERED., # 60 capsule, 11 Refills, [facility], 157.48, cm, 01/27/21 9:30:00 EDT, Height Start Date: 01/30/21 Status: Ordered ammonium lactate 12% topical cream 1 application, Topically, 2 times a day, # 385 Gm, 5 Refills, Maintenance, 12/19/20 14:08:00 EDT, Cream, [facility]/pharmacy #8761, Partial fill upon patient request if the prescription is for a schedule IIopioid drug., 1 application Topically 2 times a day... Start Date: 12/19/20 Stop Date: 06/17/21 Status: Ordered aspirin 81 mg oral delayed release tablet 1 tablet, By Mouth, Daily, # 30 tablet, 11 Refills, Maintenance, 06/21/20 17:44:00 EDT, [facility] 67250, 157.48, cm, 05/31/20 9:41:00 EST, Height Start Date: 06/21/20 Status: Ordered atorvastatin 80 mg oral tablet 1 tablet = 80 mg, By Mouth, Daily, replaces Simvastatin, # 90 tablet, 4 Refills, Maintenance, 06/02/21 14:22:00 EST, Tablet, [facility]/pharmacy #[id number], replaces simvastatin, 157.48, cm, 06/02/21 14:20:00 EST, Height Start Date: 06/02/21 Stop Date: 08/26/22 Status: Ordered capsaicin 0.075% topical cream See Instructions, APPLY TO AFFECTED AREA TWICE A DAY, # 57 Gm, 4 Refills, [facility], 30, APPLY TO AFFECTED AREA TWICE A DAY, 157.48, cm, 11/11/20 9:37:00 EDT, Height Start Date: 01/02/21 Status: Ordered Daily David oral tablet 1 tablet, By Mouth, Daily, INSTR:TAKE IT 2 HOURS SEPARATE FROM ORLISTAT ([place]), # 30 tablet, 11 Refills, Maintenance, 08/19/20 16:26:00 EDT, [facility], 30, TAKE 1 TABLET BY MOUTH DAILY. [...] Refills, Maintenance, 09/02/20 12:50:00 EDT, Gel, [facility]/pharmacy #[id number], 157.48, cm, 05/31/20 9:41:00 EST, [...] DAY, # 16 mL, 5 Refills, [facility] 49746, 30, USE 1 SPRAY IN EACH NOSTRIL [...] 3, Maintenance, use up to check blood [id number] per day. 90 DAY SUPPLY, E11.9, 03/03/21 [...] mL, 3 Refills, Maintenance, 05/09/21 10:32:00 EST, [facility], Partial fill upon pat... Start Date: 05/09/21 Status: Ordered Lantus Solostar Pen 100 units/mL subcutaneous solution See Instructions, Decreased to 60U once a day as of 12/29/19, # 30 mL, 9 Refills, Maintenance, 09/20/20 15:10:00 EDT, [facility], NEEDS 30 ML [...] Refills, Maintenance, 12/19/20 14:08:00 EDT, Film, [facility]/pharmacy #[id number], Partial fill upon patient request if the prescription is for a schedule II opioid drug., 1 patch Topically Daily, 157.48, cm, 11/11/20 9:37:0... Start Date: 12/19/20 Status: Ordered losartan 50 mg oral tablet 1 tablet, By Mouth, Daily, # 30 tablet, 2 Refills, [facility] 15867, 157.48, cm, 05/05/21 9:51:00 EST, Height Start [...] Refills, Maintenance, 05/23/21 13:30:00 EST, EC Tablet, [facility]/pharmacy #[id number], Partial fill upon patient request if the prescription is for a schedule II opioid drug., 157.48... Start Date: 05/23/21 Status: Ordered oxyCODONE 10 mg oral tablet TAKE 1/2 TAB EVERY 12 HOURS NEEDED FOR SEVERE NECK/LOW BACK PAIN. DO NOT FILL UNTIL 05/01/21 Start Date: 06/02/21 Status: Ordered Pen [place], 31 G x 8 mm BD Ultra [...] # 12 tablet, 7 Refills, [facility], 157.48, cm, 05/23/21 13:08:00 EST, Height Start Date: 06/02/21 Status: Ordered tiZANidine 4 mg oral capsule 1 capsule, By Mouth, 3 times a day, # 90 capsule, 3 Refills, [facility], 157.48, cm, 05/23/21 13:08:00 EST, Height Start Date: 06/01/21 Status: Ordered Topamax 25 mg oral tablet 2 tablet = 50 mg, By Mouth, Daily at bedtime, # 60 tablet, 6 Refills, Maintenance, 04/21/20 13:35:00 EST, Tablet, [facility]/pharmacy #[id number], 157.48, cm, 03/04/20 14:14:00 EST, Height Start Date: 04/21/20 Stop Date: 11/17/20 Status: Ordered Trulicity Pen 1.5 mg/0.5 mL subcutaneous solution 0.5 mL = 1.5 mg, Subcutaneous Injection, Every Saturday, for 90 days, E11.9, # 7.5 mL, 3 Refills, Hard Stop 12/03/22 15:26:00 EDT, 12/08/21 15:26:00 EDT, Solution, [facility], E11.65, 157.48, cm, 03/04/20 14:14:00 EST, Height Start Date: 12/08/21 Stop Date: 12/03/22 Status: Ordered Trulicity Pen 3 mg/0.5 mL subcutaneous solution 0.5 mL = 3 mg, Subcutaneous Injection, Every week, rotate injection sites, # 2 mL, 6 Refills, Maintenance, 03/01/21 16:55:00 EST, Solution, [facility], Partial fill upon patient request if the prescription is for a schedule II opioid... Start Date: 03/01/21 Status: Ordered Vascepa 1 g oral capsule 2 capsule = 2 Gm, By Mouth, 2 times a day, # 360 capsule, 5 Refills, Maintenance, 05/03/20 15:59:00EST, Capsule, [facility]/pharmacy #4471, 157.48, cm, 03/04/20 14:14:00 EST, [...] Active *Briana Garces, Care Coor dinator, ICP [phone](Confirmed) Active Reflux(Confirmed) Active Hepatic steatosis(Confirmed) Active -EF [...]
--- OUTSIDE RECORDS SUMMARY | 2024-01-23 14:37 | XMS_ITS | Continuity of Care Document ---
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 Mechanical Engineering Teacher Name Role Phone Rose Mary FISCHER, Sergo Cole Primary Care Physician [phone] [place] [facility] [place]/22 [facility] [address] [place] [address]- [place] Allergies, Adverse Reactions, Alerts Substance Reaction [...] 1Result Comment: [01/22/2017] [facility] [id number] 2Admin Note: vis given dated 10/24/12 3Admin [...] 100 tablet, 1 Refills, Acute, 219:52:00 EDT, [facility] 257[facility], 157.48, cm, 10/11/20 9:39:00 EDT, Height Start Date: 10/26/20 Status: Ordered Alcohol Pads See Instructions, # 200 each, Refills 11, Tot. Refills 11, Maintenance, To cleans before injections5 x a day., 03/03/21 9:18:00 EST, E11.65, Compound, 157.48, cm, 03/01/21 15:54:00 EST, Height Start Date: 03/03/21 Stop Date: 02/26/22 Status: Ordered Ggzst-Qvdlfz-Xrsq 300 mg oral capsule 1 capsule, By Mouth, 2 times a day, NOT COVERED., # 60 capsule, 11 Refills, [facility] 62514, 157.48, cm, 01/27/21 9:30:00 EDT, Height Start Date: 01/30/21 Status: Ordered ammonium lactate 12% topical cream 1 application, Topically, 2 times a day, # 385 Gm, 3 Refills, Maintenance, 08/24/22 14:16:00 EDT, Cream, [facility]/pharmacy #[id number], Partial fill upon patient request if the prescription is for a schedule IIopioid drug., 1 application Topically 2 times a day... Start Date: 08/24/22 Stop Date: 12/22/22 Status: Ordered atorvastatin 80 mg oral tablet 1 tablet = 80 mg, By Mouth, Daily, replaces Simvastatin, # 90 tablet, 4 Refills, Maintenance, 08/26/22 14:22:00 EDT, Tablet, [facility]/pharmacy #4471, replaces simvastatin, 157.5, cm, 11/29/21 15:59:00 EDT, Height Start Date: 08/26/22 Stop Date: 11/19/23 Status: Ordered BD Single Use Swab 70% topical pad See Instructions, TO CLEANS BEFORE INJECTIONS 5 X A DAY., # 150 Unknown, 11 Refills, Maintenance, 08/16/22 10:15:00 EDT, [facility], 30, TO CLEANS [...] Required Details, Route to Pharmacy Electronically, [facility]/pharmacy... Start Date: 08/30/22 Status: Ordered diclofenac 1% topical gel See Instructions, APPLY TOPICALLY 4 TIMES A DAY NOT TO EXCEED 16 GRAMS/DAY/SINGLE JOINT OF LOWER EXTREMITIES, # 100 Gm, 6 Refills, Maintenance, 08/24/22 14:16:00 EDT, [id number], 30, APPLY TOPICALLY 4 [...] Refills, Maintenance, 09/20/22 9:36:00 EDT, [facility], 30, INHALE 1 PUFF BY MOUTH TWICE A DAY, 157.5, cm, 09/05/22 16:22:00 EDT, Height Start Date: 09/20/22 Status: Ordered fluticasone 50 mcg/inh nasal spray See Instructions, SPRAY 1 SPRAY INTO EACH NOSTRIL EVERY DAY, # 16 mL, 5 Refills, Maintenance, 07/05/22 16:20:00 EDT, [facility], 30, SPRAY 1 SPRAY INTO EACH NOSTRIL [...] 6 Refills, Maintenance, 06/12/22 10:00:00 EDT, [facility], Partial fill upon patie... Start Date: 06/12/22 Status: Ordered Lactaid 3000 units oral tablet 3 tablet = 9,000 units, By Mouth, 3 times a day with meals, # 120 tablet, 5 Refills, Maintenance, 08/17/22 9:03:00 EDT, Tablet, [facility]/pharmacy #4021, Partial fill upon patient request if the prescription is for a schedule II opioid drug., 157.5, cm, ... Start Date: 08/17/22 Stop Date: 02/13/23 Status: Ordered Lantus Solostar Pen 100 units/mL subcutaneous solution See Instructions, Take 45 units in the AM and 45 units daily at bedtime. E11.9., # 30 mL, 9 Refills, Maintenance, 06/19/22 16:50:00 EDT, [facility], Partial fill upon patient [...] 90 capsule, 0 Refills, Maintenance, 10/18/2313:25:00 EDT, [facility]/pharmacy #[id number], Partial fill upon patient request if the prescription is for a schedule II opioid drug., 157.5, cm, 10/08/22 18:20:00... Start Date: 10/18/22 Stop Date: 01/16/23 Status: Ordered [place]-3 Fish Oil 1000 mg oral capsule 1 [...] 05/01/21 Start Date: 06/02/21 Status: Ordered Pen [place], 31 G x 8 mm BD Ultra [...] Date: 08/30/22 Stop Date: 01/27/23 Status: Ordered search analyst grabber tool search analyst grabber tool, See Instructions, # 1 each, Refills 0, Tot. Refills 0, Maintenance, please dispense one search analyst grabber tool, ICD 10 M54.6, length [...] 12/15/22 14:36:00 EDT, 04/19/22 14:36:00 EST, [facility]/pharmacy #[id number], 157.5, cm, 04/11/22 10:50:00 EST, Height Start Date: 04/19/22 Stop Date: 12/15/22 Status: Ordered Topamax 25 mg oral tablet 3 tablet = 75 mg, By Mouth, Daily at bedtime, # 90 tablet, 6 Refills, Maintenance, 06/26/22 10:14:00 EDT, Tablet, [facility], 157.5, cm, 06/21/22 8:43:00 EDT, Height Start Date: 06/26/22 Stop Date: 01/22/23 Status: Ordered Trulicity Pen 3 mg/0.5 mL subcutaneous solution See Instructions, INJECT 0.5ML SUBCUTANEOUSLY EVERY WEEK, ROTATE INJECTION SITES, # 2 mL, 5 Refills, 01/23/22 16:33:00 EDT, [facility], 157.5, cm, 01/20/22 13:38:00 EDT, Height Start Date: 01/23/22 Status: Ordered Trulicity Pen 4.5 mg/0.5 mL subcutaneous solution See Instructions, 4.5 mg Subcutaneous Infusion weekly. E11.9, # 4 each, 5 Refills, Maintenance, 06/19/22 17:00:00 EDT, [facility], Partial fill upon patient request if the prescription is for a schedule II opioid drug., 157.5, cm, ... 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 *Briana Garces, Steel Finisher, ICP [phone] Confirmed Active PTSD (post-traumatic stress disorder) Confirmed [...] Name: Rose Mary FISCHER, Sergo Cole Position: [facility] Physician - Primary Care Member Role: PCP Address: Address: [address] [facility] [place] [address]- Name: Lizbeth Collins [place] Position: [facility] RN Member Role: Primary Care Nurse Care Team Related Persons Name: LB HENLEY Address: home [address] [place] [address] Name: LB HENLEY Address: [address] [address] Name: MILENA CUBA Address: home [address] [facility] [address] [place] [address]
--- OUTSIDE RECORDS SUMMARY | 2024-01-23 14:37 | XMS_ITS | Continuity of Care Document ---
Author Organization [facility] Address [address] [place] [address]- Care Team Providers Care Product Architect Name Role Phone Sergo Bazzi MD Primary Care Physician Encounter [facility] Date(s): 09/05/22 - 10/14/22 [facility] [address] [place], [place] [address] Attending Physician: Not on [...] [01/22/2017] [facility] [place] [id number] 2Admin Note: vis given dated 10/24/12 3Admin Note: vis given dated 10/01/11 4Admin Note: vis 5Admin Note: vis 6Admin Note: vis given: 10/27/2006 7Admin Note: vis given : 10/10/2005 8Admin Note: vis given 2007- Medications acetaminophen 500 mg oral tablet 2 tablet, By Mouth, 4 times a day, PRN NEEDED FOR PAIN, # 100 tablet, 1 Refills, Acute, 219:52:00 EDT, [facility] 66040, 157.48, cm, 10/11/20 9:39:00 EDT, Height Start Date: 10/26/20 Status: Ordered Alcohol Pads See Instructions, # 200 each, Refills 11, Tot. Refills 11, Maintenance, To cleans before injections5 x a day., 03/03/21 9:18:00 EST, E11.65, Compound, 157.48, cm, 03/01/21 15:54:00 EST, Height Start Date: 03/03/21 Stop Date: 02/26/22 Status: Ordered Geoyk-Jaxytz-Xdnf 300 mg oral capsule 1 capsule, By Mouth, 2 times a day, NOT COVERED., # 60 capsule, 11 Refills, [facility], 157.48, cm, 01/27/21 9:30:00 EDT, Height Start Date: 01/30/21 Status: Ordered ammonium lactate 12% topical cream 1 application, Topically, 2 times a day, # 385 Gm, 3 Refills, Maintenance, 08/24/22 14:16:00 EDT, Cream, [facility]/pharmacy #[id number], Partial fill upon patient request if the [...] Unknown, 11 Refills, Maintenance, 08/16/22 10:15:00 EDT, [facility], 30, TO CLEANS BEFORE INJECTIONS 5 X A DAY., 157.5, cm, 08/01/22 9:27:00 EDT, Height Start Date: 08/16/22 Status: Ordered capsaicin 0.075% topical cream See Instructions, APPLY TO AFFECTED AREA TWICE A DAY, # 57 Gm, 4 Refills, Maintenance, 08/24/22 14:16:00 EDT, [facility]/pharmacy #[id number], 30, APPLY TO AFFECTED [...] tablet, 11 Refills, Maintenance, 07/09/22 10:30:00 EDT, [facility]/pharmacy #[id number], 30, 1 tablet By [...] Replace Required Details, Route to Pharmacy Electronically, [facility]/pharmacy... Start Date: 08/30/22 Status: Ordered diclofenac 1% topical gel See Instructions, APPLY TOPICALLY 4 TIMES A DAY NOT TO EXCEED 16 GRAMS/DAY/SINGLE JOINT OF LOWER EXTREMITIES, # 100 Gm, 6 Refills, Maintenance, 08/24/22 14:16:00 EDT, [facility]/pharmacy #[id number], 30, APPLY TOPICALLY 4 TIMES A DAY NOT TO EXCEED 16 GRAMS/DAY/SIN... Start Date: 08/24/22 Status: Ordered docusate sodium 100 mg oral capsule See Instructions, TAKE 1 CAPSULE BY MOUTH TWICE A DAY NEEDED FOR CONSTIPATION, # 60 capsule, 5 Refills, Maintenance, 07/03/22 18:20:00 EDT, [facility]/pharmacy #[id number], Duplicate Rx. Original sent 07/03/22 with routing error. Re- sending to pharmacy, 157.5, cm... Start Date: 07/03/22 Status: Ordered docusate sodium 100 mg oral capsule 100 mg, 1, capsule, By Mouth, 2 times a day, PRN, # 60 capsule, Refills 5, Tot. Refills 5, Maintenance, as needed for constipation, 06/12/22 9:52:00 EDT, [facility], [facility] Refills, Maintenance, 09/20/22 9:36:00 EDT, [facility], 30, INHALE 1 PUFF BY MOUTH TWICE A DAY, 157.5, cm, 09/05/22 16:22:00 EDT, Height Start Date: 09/20/22 Status: Ordered fluticasone 50 mcg/inh nasal spray See Instructions, SPRAY 1 SPRAY INTO EACH NOSTRIL EVERY DAY, # 16 mL, 5 Refills, Maintenance, 07/05/22 16:20:00 EDT, [facility] STORE 43495, 30, SPRAY 1 SPRAY INTO EACH NOSTRIL [...] mL, 6 Refills, Maintenance, 06/12/22 10:00:00 EDT, [facility], Partial fill upon patie... Start Date: 06/12/22 Status: Ordered Lactaid 3000 units oral tablet 3 tablet = 9,000 units, By Mouth, 3 times a day with meals, # 120 tablet, 5 Refills, Maintenance, 08/17/22 9:03:00 EDT, Tablet, [facility]/pharmacy #[id number], Partial fill upon patient request if the prescription is for a schedule II opioid drug., 157.5, cm, ... Start Date: 08/17/22 Stop Date: 02/13/23 Status: Ordered Lantus Solostar Pen 100 units/mL subcutaneous solution See Instructions, Take 45 units in the AM and 45 units daily at bedtime. E11.9., # 30 mL, 9 Refills, Maintenance, 06/19/22 16:50:00 EDT, [facility], Partial fill upon patient requestif the prescription is for a schedule II opioid lucas... Start Date: 06/19/22 Status: Ordered lidocaine 5% topical ointment See Instructions, APPLY TO AFFECTED AREA 3 TIMES A DAY, # 35.44 Gm, 11 Refills, Maintenance, 02/28/22 8:51:00 EST, [facility]/pharmacy #[id number], 30, APPLY TO AFFECTED AREA 3 TIMES A DAY, 157.5, cm, 02/21/22 14:36:00 EST, Height Start Date: 02/28/22 Status: Ordered lidocaine 5% topical ointment See Instructions, APPLY TO AFFECTED AREA 3 TIMES A DAY, # 35.44 Gm, 11 Refills, Maintenance, 07/03/22 18:22:00 EDT, [facility]/pharmacy #[id number], 30, Duplicate Rx. Original [...] Date: 05/02/22 Stop Date: 09/29/22 Status: Ordered [place]-3 Fish Oil 1000 mg oral capsule 1 [...] Refills, Maintenance, 06/14/22 16:40:00 EDT, EC Tablet, [facility]/pharmacy #[id number], Partial fill upon patient request if the prescription is for a schedule II opioid drug., 157.5,... Start Date: 06/14/22 Status: Ordered oxyCODONE 10 mg oral tablet TAKE 1/2 TAB EVERY 12 HOURS NEEDED FOR SEVERE NECK/LOW BACK PAIN. DO NOT FILL UNTIL 05/01/21 Start Date: 06/02/21 Status: Ordered Pen [place], 31 G x 8 mm BD Ultra [...] 08/30/22 13:31:00 EDT, Route to Pharmacy Electronically, [facility]/pharmacy #[id number], Partial fill upon patient request if the prescription is for a schedule II opi... Start Date: 08/30/22 Stop Date: 01/27/23 Status: Ordered compliance review officer grabber tool compliance review officer grabber tool, See Instructions, # 1 each, Refills 0, Tot. Refills 0, Maintenance, please dispense one compliance review officer grabber tool, ICD 10 M54.6, length [...] 14:16:00 EDT, 08/24/22 14:16:00 EDT, [facility]w Tablet, [id number], Partial fill upon patient request if the prescription is for a schedule II... Start Date: 08/24/22 Stop Date: 12/07/22 Status: Ordered SUMAtriptan 25 mg oral tablet 1 tablet, By Mouth, Daily, PRN NEEDED FOR MIGRAINES, for 30 days, MAY RPT DOSE AFTER 2 HRS TO MAX OF 2, # 12 tablet, 7 Refills, Physician Stop 12/15/22 14:36:00 EDT, 04/19/22 14:36:00 EST, [id number], 157.5, cm, 04/11/22 10:50:00 EST, Height Start Date: 04/19/22 Stop Date: 12/15/22 Status: Ordered Topamax 25 mg oral tablet 3 tablet = 75 mg, By Mouth, Daily at bedtime, # 90 tablet, 6 Refills, Maintenance, 06/26/22 10:14:00 EDT, Tablet, [facility], 157.5, cm, 06/21/22 8:43:00 [...] each, 5 Refills, Maintenance, 06/19/22 17:00:00 EDT, [facility], Partial fill upon patient request if the prescription is for a schedule II opioid drug., 157.5, cm, ... Start Date: 06/19/22 Status: Ordered valACYclovir 500 mg oral tablet 1, tablet, By Mouth, 2 times a day, PRN, # 6 tablet, Refills 2, Maintenance, NEEDED FOR OUTBREAKS, 07/11/22 16:11:00 EDT, Route to Pharmacy Electronically, [facility] 76358, 157.5, cm, 06/21/22 8:43:00 EDT, Height Start [...] each, 0 Refills, Maintenance, 09/17/22 15:25:00 EDT, 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 *Briana Garces, Electrical Engineering Technologist, ICP [phone] Confirmed Active PTSD (post-traumatic stress disorder) Confirmed [...] Sergo Bazzi MD Position: [facility] Physician - Primary Care Member Role: PCP Address: Address: [address] [place] [address]- Name: Lizbeth Collins [place] Position: [facility] RN Member Role: Primary Care Nurse Care Team Related Persons Name: LB HENLEY Address: home [address] [place] [address] Name: LB HENLEY Address: home [address] [address] Name: MILENA CUBA Address: home [address] [place] [id number]
--- OUTSIDE RECORDS SUMMARY | 2024-01-23 14:37 | XMS_ITS | Continuity of Care Document ---
Author Organization [facility] Address [address] [place] [address]- Care Team Providers Care Woodworking Craftsman Name Role Phone Rose Mary FISCHER, Sergo Cole Primary Care Physician Encounter [facility] Date(s): 06/06/22 - 07/06/22 [facility] [address] [place] [address] Allergies, Adverse Reactions, Alerts Substance Reaction [...] Given 1Result Comment: [01/22/2017] [facility] [id number] 2Admin Note: vis given dated 10/24/12 3Admin Note: vis given dated 10/01/11 4Admin Note: vis 5Admin Note: vis 6Admin Note: vis given: 10/27/2006 7Admin Note: vis given : 10/10/2005 8Admin Note: vis given 2007- Medications acetaminophen 500 mg oral tablet 2 tablet, By Mouth, 4 times a day, PRN NEEDED FOR PAIN, # 100 tablet, 1 Refills, Acute, 219:52:00 EDT, [facility], 157.48, cm, 10/11/20 9:39:00 EDT, Height Start Date: 10/26/20 Status: Ordered Alcohol Pads See Instructions, # 200 each, Refills 11, Tot. Refills 11, Maintenance, To cleans before injections5 x a day., 03/03/21 9:18:00 EST, E11.65, Compound, 157.48, cm, 03/01/21 15:54:00 EST, Height Start Date: 03/03/21 Stop Date: 02/26/22 Status: Ordered Gsiog-Wgrffr-Elwc 300 mg oral capsule 1 capsule, By Mouth, 2 times a day, NOT COVERED., # 60 capsule, 11 Refills, [facility] 34208, 157.48, cm, 01/27/21 9:30:00 EDT, Height Start Date: 01/30/21 Status: Ordered ammonium lactate 12% topical cream 1 application, Topically, 2 times a day, # 385 Gm, 3 Refills, Maintenance, 04/05/22 13:30:00 EST, Cream, [facility]/pharmacy [...] Gm, 4 Refills, Maintenance, 03/05/22 13:29:00 EST, [facility], 30, APPLY TO AFFECTED AREA TWICE A [...] tablet, 11 Refills, Maintenance, 08/19/20 16:26:00 EDT, [facility] 59191, 30, TAKE 1 TABLET BY MOUTH DAILY. [...] Gm, 6 Refills, Maintenance, 03/19/22 9:28:00 EST, [facility] 95174, 30, APPLY TOPICALLY 4 TIMES A DAY NOT TO EXCEED 16 GRAMS/DAY/SINGLE... Start Date: 03/19/22 Status: Ordered docusate sodium 100 mg oral capsule See Instructions, TAKE 1 CAPSULE BY MOUTH TWICE A DAY NEEDED FOR CONSTIPATION, # 60 capsule, 5 Refills, Maintenance, 07/03/22 18:20:00 EDT, [id number], Duplicate Rx. Original sent 07/03/22 with routing error. Re- sending to pharmacy, 157.5, cm... Start Date: 07/03/22 Status: Ordered docusate sodium 100 mg oral capsule 100 mg, 1, capsule, By Mouth, 2 times a day, PRN, # 60 capsule, Refills 5, Tot. Refills 5, Maintenance, as needed for constipation, 06/12/22 9:52:00 EDT, Route to Pharmacy Electronically, [facility]/pharmacy #[id number], Partial fill upon patient request if the [...] Refills, Maintenance, 03/22/22 16:35:00 EST, [facility] STORE 18003, 30, INHALE 1 PUFF BY MOUTH TWICE A DAY, 157.5, cm, 03/22/22 13:25:00 EST, Height Start Date: 03/22/22 Status: Ordered fluticasone 50 mcg/inh nasal spray See Instructions, SPRAY 1 SPRAY INTO EACH NOSTRIL EVERY DAY, # 16 mL, 5 Refills, Maintenance, 07/05/22 16:20:00 EDT, [facility] STORE 57550, 30, SPRAY 1 SPRAY INTO EACH NOSTRIL [...] mL, 6 Refills, Maintenance, 06/12/22 10:00:00 EDT, [facility], Partial fill upon patie... Start Date: 06/12/22 Status: Ordered Lantus Solostar Pen 100 units/mL subcutaneous solution See Instructions, Take 45 units in the AM and 45 units daily at bedtime. E11.9., # 30 mL, 9 Refills, Maintenance, 06/19/22 16:50:00 EDT, [facility], Partial [...] 5 Refills, Maintenance, 05/30/22 16:26:00 EST, [facility] STORE 20247, 157.5, cm, 05/09/22 10:05:00 EST, Height Start [...] 05/01/21 Start Date: 06/02/21 Status: Ordered Pen [place], 31 G x 8 mm BD Ultra [...] II opi... Start Date: 05/02/22 Status: Ordered desilverizer grabber tool desilverizer grabber tool, See Instructions, # 1 each, Refills 0, Tot. Refills 0, Maintenance, please dispense one desilverizer grabber tool, ICD 10 M54.6, length of [...] 10:05:00 EDT, 06/12/22 10:05:00 EDT, Chew Tablet, [facility], Partial [...] 6 Refills, Maintenance, 06/26/22 10:14:00 EDT, Tablet, [facility], 157.5, cm, 06/21/22 8:43:00 EDT, Height Start Date: 06/26/22 Stop Date: 01/22/23 Status: Ordered Trulicity Pen 3 mg/0.5 mL subcutaneous solution See Instructions, INJECT 0.5ML SUBCUTANEOUSLY EVERY WEEK, ROTATE INJECTION SITES, # 2 mL, 5 Refills, 01/23/22 16:33:00 EDT, [facility], 157.5, cm, 01/20/22 13:38:00 EDT, Height Start Date: 01/23/22 Status: Ordered Trulicity Pen 4.5 mg/0.5 mL subcutaneous solution See Instructions, 4.5 mg Subcutaneous Infusion weekly. E11.9, # 4 each, 5 Refills, Maintenance, 06/19/22 17:00:00 EDT, [facility], Partial [...] 07/03/22 9:29:00 EDT, Route to Pharmacy Electronically, [facility], 157.5, cm, 03... 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 No wall motion abnormalities, Does [...] Team Personnel Name: Sergo Bazzi MD Position: [facility] Primary Care Physician Member Role: PCP Address: Address: [address] [facility] [place] [address]- Name: Lizbeth Barnhart Position: [facility] RN Member Role: Primary Care Nurse Care Team Related Persons Name: LB HENLEY Address: home [address] [address] Name: LB HENLEY Address: home [address] [place] [address] Name: MILENA CUBA Address: home [address] [place] [address] [address] [place] [address]
--- OUTSIDE RECORDS SUMMARY | 2024-01-23 14:38 | XMS_ITS | Continuity of Care Document ---
Author Organization [facility] Address [address] [place] [address]- Care Team Providers Care International Manager Name Role Phone Sergo Bazzi MD Primary Care Physician [phone] Encounter [facility] Date(s): 02/23/22 - 05/24/22 [facility] [address] [place], [place] [address] Attending Physician: Sergo Bazzi MD Admitting Physician: [...] [facility] [id number] 2Admin Note: vis given dated 10/24/12 3Admin Note: vis given dated 10/01/11 4Admin Note: vis 5Admin Note: vis 6Admin Note: vis given: 10/27/2006 7Admin Note: vis given : 10/10/2005 8Admin Note: vis given 2007- Medications acetaminophen 500 mg oral tablet 2 tablet, By Mouth, 4 times a day, PRN NEEDED FOR PAIN, # 100 tablet, 1 Refills, Acute, 219:52:00 EDT, [facility] 58309, 157.48, cm, 10/11/20 9:39:00 EDT, Height Start Date: 10/26/20 Status: Ordered Alcohol Pads See Instructions, # 200 each, Refills 11, Tot. Refills 11, Maintenance, To cleans before injections5 x a day., 03/03/21 9:18:00 EST, E11.65, Compound, 157.48, cm, 03/01/21 15:54:00 EST, Height Start Date: 03/03/21 Stop Date: 02/26/22 Status: Ordered Ndnvt-Xhphmu-Volu 300 mg oral capsule 1 capsule, By Mouth, 2 times a day, NOT COVERED., # 60 capsule, 11 Refills, [facility], 157.48, cm, 01/27/21 9:30:00 EDT, Height Start Date: 01/30/21 Status: Ordered ammonium lactate 12% topical cream 1 application, Topically, 2 times a day, # 385 Gm, 3 Refills, Maintenance, 04/05/22 13:30:00 EST, Cream, [facility]/pharmacy #[id number], Partial fill upon patient request if the prescription is for a schedule IIopioid drug., 1 application Topically 2 times a day... Start Date: 04/05/22 Stop Date: 08/03/22 Status: Ordered atorvastatin 80 mg oral tablet 1 tablet = 80 mg, By Mouth, Daily, replaces Simvastatin, # 90 tablet, 4 Refills, Maintenance, 08/26/22 14:22:00 EDT, Tablet, [facility]/pharmacy #4471, replaces simvastatin, 157.5, cm, 11/29/21 15:59:00 EDT, Height Start Date: 08/26/22 Stop Date: 11/19/23 Status: Ordered capsaicin 0.075% topical cream See Instructions, APPLY TO AFFECTED AREA TWICE A DAY, # 57 Gm, 4 Refills, Maintenance, 03/05/22 13:29:00 EST, [facility], 30, APPLY TO AFFECTED AREA TWICE A [...] Refills, Maintenance, 08/19/20 16:26:00 EDT, [facility], 30, TAKE 1 TABLET BY MOUTH DAILY. [...] Replace Required Details, Route to Pharmacy Electronically, [facility]/pharmacy... Start Date: 05/02/22 Status: Ordered diclofenac 1% topical gel See Instructions, APPLY TOPICALLY 4 TIMES A DAY NOT TO EXCEED 16 GRAMS/DAY/SINGLE JOINT OF LOWER EXTREMITIES, # 100 Gm, 6 Refills, Maintenance, 03/19/22 9:28:00 EST, [facility] 08010, 30, APPLY TOPICALLY 4 TIMES A DAY NOT TO EXCEED 16 GRAMS/DAY/SINGLE... Start Date: 03/19/22 Status: Ordered docusate sodium 100 mg oral capsule 100 mg, 1, capsule, By Mouth, 2 times a day, PRN, # 60 capsule, Refills 5, Tot. Refills 5, Maintenance, as needed for constipation, 11/10/21 9:17:00 EDT, [facility] Pharm[facility] Electronically, [facility] each, 0 Refills, Maintenance, 03/22/22 16:35:00 EST, [facility] STORE 38155, 30, INHALE 1 PUFF BY MOUTH TWICE A DAY, 157.5, cm, 03/22/22 13:25:00 EST, Height Start Date: 03/22/22 Status: Ordered fluticasone 50 mcg/inh nasal spray See Instructions, USE 1 SPRAY IN EACH NOSTRIL EVERY DAY, # 16 mL, 5 Refills, 12/29/21 15:10:00 EDT,[facility]/pharmacy #4471, USE 1 SPRAY [...] mL, 3 Refills, Maintenance, 03/22/22 15:43:00 EST, [facility], [...] mL, 9 Refills, Maintenance, 03/22/22 15:41:00 EST, [facility], [...] 05/01/21 Start Date: 06/02/21 Status: Ordered Pen [place], 31 G x 8 mm BD Ultra [...] 1 Refills, Maintenance, 04/11/22 11:31:00 EST, Tablet, [facility]/pharmacy #[id number], [...] 05/02/22 14:40:00 EST, Route to Pharmacy Electronically, [facility]/pharmacy #[id number], Partial fill upon patient request if the prescription is for a schedule II opi... Start Date: 05/02/22 Status: Ordered stone cleaner grabber tool stone cleaner grabber tool, See Instructions, # 1 each, Refills 0, Tot. Refills 0, Maintenance, please dispense one stone cleaner grabber tool, ICD 10 M54.6, length of use 1 month, 04/12/22 10:13:00 EST, Supply Start Date: 04/12/22 Status: Ordered SUMAtriptan 25 mg oral tablet 1 tablet, By Mouth, Daily, PRN NEEDED FOR MIGRAINES, for 30 days, MAY RPT DOSE AFTER 2 HRS TO MAX OF 2, # 12 tablet, 7 Refills, Physician Stop 12/15/22 14:36:00 EDT, 04/19/22 14:36:00 EST, [id number], 157.5, cm, 04/11/22 10:50:00 EST, Height Start Date: 04/19/22 Stop Date: 12/15/22 Status: Ordered Topamax 25 mg oral tablet 3 tablet = 75 mg, By Mouth, Daily at bedtime, # 90 tablet, 6 Refills, Maintenance, 04/19/22 14:35:00 EST, Tablet, [facility]/pharmacy #[id number], 157.5, cm, 04/11/22 10:50:00 EST, Height Start Date: 04/19/22 Stop Date: 11/15/22 Status: Ordered Trulicity Pen 3 mg/0.5 mL subcutaneous solution See Instructions, INJECT 0.5ML SUBCUTANEOUSLY EVERY WEEK, ROTATE INJECTION SITES, # 2 mL, 5 Refills, 01/23/22 16:33:00 EDT, [facility], 157.5, cm, 01/20/22 13:38:00 EDT, Height Start Date: 01/23/22 Status: Ordered Trulicity Pen 4.5 mg/0.5 mL subcutaneous solution See Instructions, 4.5 mg Subcutaneous Infusion weekly. E11.9, # 4 each, 5 Refills, Maintenance, 03/22/22 15:41:00 EST, [facility], Partial fill upon patient request if the prescription is for a schedule II opioid drug., 157.5, cm, 12... Start Date: 03/22/22 Status: Ordered valACYclovir 500 mg oral tablet 1, tablet, By Mouth, 2 times a day, PRN, for 3 days, # 6 tablet, Refills 2, Tot. Refills 2, Physician Stop 05/27/22 14:49:00 EST, NEEDED FOR OUTBREAK, 05/18/22 14:49:00 EST, Route to Pharmacy Electronically, [facility]/pharmacy #[id number], 157.5, cm, 05/09/22... Start Date: 05/18/22 Stop Date: 05/27/22 Status: Ordered Vascepa 1 g oral capsule 2 capsule = 2 Gm, By Mouth, 2 times a day, # 360 capsule, 5 Refills, Maintenance, 05/03/20 15:59:00EST, Capsule, [facility]/pharmacy #4471, 157.48, cm, 03/04/20 14:14:00 EST, Height Start Date: 05/03/20 Status: Ordered Ventolin HFA 108 mcg/inh inhalation aerosol with adapter 1 puffs, Inhalation, 4 times a day, PRN NEEDED FOR WHEEZING, # 18 each, 0 Refills, Maintenance, 04/04/22 12:59:00 EST, [facility] STORE 18839, 157.5, cm, 03/22/22 13:25:00 EST, Height Start [...] 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 No wall motion abnormalities, Does [...] Team Personnel Name: Sergo Bazzi MD Position: [facility] Primary Care Physician Member Role: PCP Address: Address: [address] [place] [address] [place] [address]- Name: Lizbeth Barnhart Position: [facility] RN Member Role: Primary Care Nurse Care Team Related Persons Name: KALE LB Address: home [address] [place] [id number] Name: LB HENLEY Address: home [address] [place] [address] Name: MILENA CUBA Address: home [address] [place] [address] [address] [place] [address]
--- OUTSIDE RECORDS SUMMARY | 2024-01-23 14:38 | XMS_ITS | Continuity of Care Document ---
Author Organization [facility] Address [address] [place] [address]- Care Team Providers Care Pole Peeling Machine Operator Name Role Phone Sergo Bazzi MD Primary Care Physician Encounter [facility] Date(s): 08/16/22 - 09/15/22 [facility] [address], [place] [address] Allergies, Adverse Reactions, Alerts Substance Reaction [...] [01/22/2017] [facility] [id number] 2Admin Note: vis given dated 10/24/12 3Admin Note: vis given dated 10/01/11 4Admin Note: vis 5Admin Note: vis 6Admin Note: vis given: 10/27/2006 7Admin Note: vis given : 10/10/2005 8Admin Note: vis given 2007- Medications acetaminophen 500 mg oral tablet 2 tablet, By Mouth, 4 times a day, PRN NEEDED FOR PAIN, # 100 tablet, 1 Refills, Acute, 219:52:00 EDT, [facility] STORE 96273, 157.48, cm, 10/11/20 9:39:00 EDT, Height Start Date: 10/26/20 Status: Ordered Alcohol Pads See Instructions, # 200 each, Refills 11, Tot. Refills 11, Maintenance, To cleans before injections5 x a day., 03/03/21 9:18:00 EST, E11.65, Compound, 157.48, cm, 03/01/21 15:54:00 EST, Height Start Date: 03/03/21 Stop Date: 02/26/22 Status: Ordered Maiou-Dpyety-Wrep 300 mg oral capsule 1 capsule, By Mouth, 2 times a day, NOT COVERED., # 60 capsule, 11 Refills, [facility], 157.48, cm, 01/27/21 9:30:00 EDT, Height Start Date: 01/30/21 Status: Ordered ammonium lactate 12% topical cream 1 application, Topically, 2 times a day, # 385 Gm, 3 Refills, Maintenance, 08/24/22 14:16:00 EDT, Cream, [facility]/pharmacy #[id number], Partial fill upon patient request if the [...] Unknown, 11 Refills, Maintenance, 08/16/22 10:15:00 EDT, [facility], 30, TO CLEANS BEFORE INJECTIONS 5 X A DAY., 157.5, cm, 08/01/22 9:27:00 EDT, Height Start Date: 08/16/22 Status: Ordered capsaicin 0.075% topical cream See Instructions, APPLY TO AFFECTED AREA TWICE A DAY, # 57 Gm, 4 Refills, Maintenance, 08/24/22 14:16:00 EDT, [facility]/pharmacy #[id number], 30, [...] tablet, 11 Refills, Maintenance, 07/09/22 10:30:00 EDT, [facility]/pharmacy #[id number], 30, 1 tablet [...] Route to Pharmacy Electronically, [facility]/pharmacy... Start Date: 08/30/22 Status: Ordered diclofenac 1% topical gel See Instructions, APPLY TOPICALLY 4 TIMES A DAY NOT TO EXCEED 16 GRAMS/DAY/SINGLE JOINT OF LOWER EXTREMITIES, # 100 Gm, 6 Refills, Maintenance, 08/24/22 14:16:00 EDT, [facility]/pharmacy #[id number], 30, [...] 06/12/22 9:52:00 EDT, [facility] Electronically, [facility] each, 0 Refills, Maintenance, 08/24/22 14:16:00 EDT, [facility]/pharmacy #[id number], 30, 1 puffs Inhalation 2 times a day, 157.5, cm, 08/01/22 9:27:00 EDT, Height Start Date: 08/24/22 Status: Ordered fluticasone 50 mcg/inh nasal spray See Instructions, SPRAY 1 SPRAY INTO EACH NOSTRIL EVERY DAY, # 16 mL, 5 Refills, Maintenance, 07/05/22 16:20:00 EDT, [facility] STORE 51913, 30, SPRAY 1 SPRAY INTO EACH NOSTRIL [...] 5 Refills, Maintenance, 08/17/22 9:03:00 EDT, Tablet, [facility]/pharmacy #[id number], [...] Gm, 11 Refills, Maintenance, 07/03/22 18:22:00 EDT, [facility]/pharmacy #[id number], 30, [...] Date: 05/02/22 Stop Date: 09/29/22 Status: Ordered Greenfield-3 Fish Oil 1000 mg oral capsule 1 [...] 05/01/21 Start Date: 06/02/21 Status: Ordered Pen [place], 31 G x 8 mm BD Ultra [...] 08/30/22 13:31:00 EDT, Route to Pharmacy Electronically, [facility]/pharmacy #[id number], Partial fill upon patient request if the prescription is for a schedule II opi... Start Date: 08/30/22 Stop Date: 01/27/23 Status: Ordered project engineer grabber tool project engineer grabber tool, See Instructions, # 1 each, Refills 0, Tot. Refills 0, Maintenance, please dispense one project engineer grabber tool, ICD 10 M54.6, length [...] EDT, 08/24/22 14:16:00 EDT, [facility] Partial fill upon patient request [...] 12/15/22 14:36:00 EDT, 04/19/22 14:36:00 EST, [facility] 157.5, cm, 04/11/22 10:50:00 EST, Height Start Date: 04/19/22 Stop Date: 12/15/22 Status: Ordered Topamax 25 mg oral tablet 3 tablet = 75 mg, By Mouth, Daily at bedtime, # 90 tablet, 6 Refills, Maintenance, 06/26/22 10:14:00 EDT, Tablet, [facility], 157.5, cm, 06/21/22 8:43:00 EDT, [...] EDT, Route to Pharmacy Electronically, [facility], 157.5, cm, 06/21/22 8:43:00 EDT, Height Start [...] each, 0 Refills, Maintenance, 08/24/22 14:16:00 EDT, [facility]/pharmacy #[id number], 157.5, cm, 08/01/22 [...] 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 *Briana Garces, Bartenders, ICP [phone] Confirmed Active PTSD (post-traumatic stress disorder) Confirmed [...] Team Personnel Name: Sergo Bazzi MD Position: [facility] Physician - Primary Care Member Role: PCP Address: Address: [address] [place] [address] [place] [address]- Name: Lizbeth Collins [place] Position: [facility] RN Member Role: Primary Care Nurse Care Team Related Persons Name: LB HENLEY Address: home [address] [address] Name: LB HENLEY Address: home [address] [place] [address] Name: MILENA CUBA Address: home [address] [place] [address]
--- OUTSIDE RECORDS SUMMARY | 2024-01-23 14:38 | XMS_ITS | Continuity of Care Document ---
Author Organization [facility] Address [address], [address], [address] [place] [address]- Care Team Providers Care Chrome Cleaner Name Role Phone Rose Mary FISCHER, Sergo Cole Primary Care Physician Encounter [facility] [place] Date(s): 01/19/22 - 02/18/22 [facility] [address], [address] [place], [place] [address] Attending Physician: Broderick Washburn Admitting [...] (oldterm) 8 01/21/08 Given 1Result Comment: [01/22/2017] [facility] [id number] 2Admin Note: vis given dated 10/24/12 3Admin Note: vis given dated 10/01/11 4Admin Note: vis 5Admin Note: vis 6Admin Note: vis given: 10/27/2006 7Admin Note: vis given : 10/10/2005 8Admin Note: vis given 2007- Medications acetaminophen 500 mg oral tablet 2 tablet, By Mouth, 4 times a day, PRN NEEDED FOR PAIN, # 100 tablet, 1 Refills, Acute, 219:52:00 EDT, [facility] STORE [facility]18, 157.48, cm, 10/11/20 9:39:00 EDT, Height Start Date: 10/26/20 Status: Ordered Alcohol Pads See Instructions, # 200 each, Refills 11, Tot. Refills 11, Maintenance, To cleans before injections5 x a day., 03/03/21 9:18:00 EST, E11.65, Compound, 157.48, cm, 03/01/21 15:54:00 EST, Height Start Date: 03/03/21 Stop Date: 02/26/22 Status: Ordered Aiihz-Eezxjo-Vsel 300 mg oral capsule 1 capsule, By Mouth, 2 times a day, NOT COVERED., # 60 capsule, 11 Refills, [facility], 157.48, cm, 01/27/21 9:30:00 EDT, Height Start Date: 01/30/21 Status: Ordered ammonium lactate 12% topical cream 1 application, Topically, 2 times a day, # 385 Gm, 5 Refills, Maintenance, 09/08/21 9:35:00 EDT, Cream, [facility]/pharmacy #4781, Partial fill upon patient request if the [...] tablet, 11 Refills, Maintenance, 08/19/20 16:26:00 EDT, [facility] STORE 47994, 30, TAKE 1 TABLET BY MOUTH DAILY. [...] 11/10/21 9:17:00 EDT, Route to Pharmacy Electronically, [facility]/pharmacy #[id number], Partial fill upon patient [...] # 16 mL, 5 Refills, 12/29/21 15:10:00 EDT,[facility]/pharmacy #[id number], USE 1 SPRAY IN EACH [...] mL, 9 Refills, Maintenance, 08/24/21 9:25:00 EDT, [facility], Partial fill upon patient request if the prescription is for a schedule II opioid d... Start Date: 08/24/21 Status: Ordered Lantus Solostar Pen 100 units/mL subcutaneous solution See Instructions, Decreased to 60U once a day as of 12/29/19, # 30 mL, 9 Refills, Maintenance, 09/20/20 15:10:00 EDT, [facility], NEEDS 30 ML FOR 30 DAY SUPPLY E11.9, 157.48, cm, 05/31/20 9:41:00 EST, Height Start Date: 09/20/20 Status: Ordered lidocaine 5% topical ointment See Instructions, APPLY TO AFFECTED AREA 3 TIMES A DAY, # 35.44 Gm, 11 Refills, Physician Stop 02/28/22 8:51:00 EST, 01/29/22 8:51:00 EDT, [facility]/pharmacy #4471, 30, APPLY TO AFFECTED AREA 3 TIMES A DAY, 157.5, cm, 01/20/22 13:38:00 EDT, Height Start Date: 01/29/22 Stop Date: 02/28/22 Status: Ordered losartan 50 mg oral tablet 1 tablet, By Mouth, Daily, # 30 tablet, 5 Refills, 12/08/21 16:06:00 EDT, [facility]/pharmacy #[id number], 157.5, cm, 11/29/21 15:59:00 EDT, Height Start Date: 12/08/21 Status: Ordered Lyrica 25 mg oral capsule See Instructions, 1 capsule By Mouth 1 time daily at bedtime. E11.9, # 30 each, 5 Refills, Maintenance, 09/18/21 12:21:00 EDT, Capsule, [facility]/pharmacy #[id number], Partial fill upon patient [...] Refills, Maintenance, 01/29/22 8:52:00 EDT, EC Tablet, [facility]/pharmacy #[id number], Partial fill upon patient [...] 11:08:00 EST, 01/09/22 11:08:00 EDT, Chew Tablet, [facility]/pharmacy #[id number], Partial fill upon patient [...] Stop 09/16/22 11:02:00 EDT, 01/19/22 11:02:00 EDT, [facility]/pharmacy #[id number], 157.5, cm, 01/09/22 10:18:00 EDT, Height Start Date: 01/19/22 Stop Date: 09/16/22 Status: Ordered Topamax 25 mg oral tablet 3 tablet = 75 mg, By Mouth, Daily at bedtime, # 90 tablet, 6 Refills, Maintenance, 01/19/22 10:34:00 EDT, Tablet, [facility]/pharmacy #[id number], 157.5, cm, 01/09/22 10:18:00 EDT, Height Start Date: 01/19/22 Stop Date: 08/17/22 Status: Ordered Trulicity Pen 3 mg/0.5 mL subcutaneous solution See Instructions, INJECT 0.5ML SUBCUTANEOUSLY EVERY WEEK, ROTATE INJECTION SITES, # 2 mL, 5 Refills, 01/23/22 16:33:00 EDT, [facility], 157.5, cm, 01/20/22 13:38:00 EDT, [...] 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 No wall motion abnormalities, Does [...] Care Physician Member Role: PCP Address: Address: [address] [place] [address] [place] [address]- Care Team Related Persons Name: LB HENLEY Address: home [address] [address] Name: LB HENLEY Address: home [address] [place] [address] Name: MILENA CUBA Address: home [address] [place] [address]
--- OUTSIDE RECORDS SUMMARY | 2024-01-23 14:38 | XMS_ITS | Continuity of Care Document ---
Author Organization [facility] Address [address] [place] [address]- Care Team Providers Care Digital Associate Media Director Name Role Phone Sergo Bazzi MD Primary Care Physician Encounter [facility] [place] Date(s): 03/11/23 - 04/10/23 [facility] [address] [place], [place] [address] Allergies, Adverse Reactions, Alerts Substance [...] Comment: [01/22/2017] [facility] [id number] 2Admin Note: vis given dated 10/24/12 3Admin [...] 100 tablet, 1 Refills, Acute, 219:52:00 EDT, [facility] 33595, 157.48, cm, 10/11/20 9:39:00 EDT, Height Start Date: 10/26/20 Status: Ordered Alcohol Pads See Instructions, # 200 each, Refills 11, Tot. Refills 11, Maintenance, To cleans before injections5 x a day., 03/03/21 9:18:00 EST, E11.65, Compound, 157.48, cm, 03/01/21 15:54:00 EST, Height Start Date: 03/03/21 Stop Date: 02/26/22 Status: Ordered Twiss-Wmyzud-Mwpu 300 mg oral capsule 1 capsule, By Mouth, 2 times a day, NOT COVERED., # 60 capsule, 11 Refills, [facility] 97558, 157.48, cm, 01/27/21 9:30:00 EDT, Height Start [...] 1 Refills, Maintenance, 11/19/23 14:22:00 EDT, Tablet, [facility]/pharmacy #[id number], replaces simvastatin, 157.5, cm, 11/26/22 14:11:00 EDT, Height Start Date: 11/19/23 Stop Date: 05/17/24 Status: Ordered BD Single Use Swab 70% topical pad See Instructions, TO CLEANS BEFORE INJECTIONS 5 X A DAY., # 150 Unknown, 11 Refills, Maintenance, 08/16/22 10:15:00 EDT, [facility], 30, TO CLEANS BEFORE INJECTIONS 5 X A DAY., 157.5, cm, 08/01/22 9:27:00 EDT, Height Start Date: 08/16/22 Status: Ordered capsaicin 0.075% topical cream See Instructions, APPLY TO AFFECTED AREA TWICE A DAY, # 57 Gm, 4 Refills, Maintenance, 08/24/22 14:16:00 EDT, [facility]/pharmacy #[id number], 30, APPLY TO [...] tablet, 11 Refills, Maintenance, 07/09/22 10:30:00 EDT, [facility]/pharmacy #[id number], 30, 1 tablet [...] Gm, 1 Refills, Maintenance, 12/14/22 6:14:00 EDT, [facility]/pharmacy #[id number], 30, [...] 06/12/22 9:52:00 EDT, Route to Pharmacy Electronically, [facility]/pharmacy #[id number], Partial fill upon patient request if the pr... Start Date: 06/12/22 Status: Ordered esomeprazole 40 mg oral enteric coated capsule 1 capsule = 40 mg, By Mouth, Daily, # 90 capsule, 1 Refills, Maintenance, 03/07/23 13:32:00 EST, [facility]/pharmacy #[id number], Partial [...] each, 0 Refills, Maintenance, 09/20/22 9:36:00 EDT, [facility], 30, INHALE 1 PUFF BY MOUTH TWICE A DAY, 157.5, cm, 09/05/22 16:22:00 EDT, Height Start Date: 09/20/22 Status: Ordered fluticasone 50 mcg/inh nasal spray See Instructions, SPRAY 1 SPRAY INTO EACH NOSTRIL EVERY DAY, # 16 mL, 5 Refills, Maintenance, 07/05/22 16:20:00 EDT, [facility], 30, SPRAY 1 SPRAY INTO EACH NOSTRIL [...] tablet, 4 Refills, Maintenance, 03/11/23 15:50:00 EST, [facility] STORE 62687, 157.5, cm, 02/19/23 9:20:00 EST, Height Start [...] mL, 6 Refills, Maintenance, 11/26/22 14:55:00 EDT, [facility], Partial [...] 5 Refills, Maintenance, 08/17/22 9:03:00 EDT, Tablet, [facility]/pharmacy #[id number], [...] mL, 9 Refills, Maintenance, 11/26/22 14:55:00 EDT, [facility], Partial fill upon patient requestif the prescription is for a schedule II opioid lucas... Start Date: 11/26/22 Status: Ordered lidocaine 5% topical ointment See Instructions, APPLY TO AFFECTED AREA 3 TIMES A DAY, # 35.44 Gm, 11 Refills, Maintenance, 02/28/22 8:51:00 EST, [facility]/pharmacy #[id number], 30, APPLY TO AFFECTED AREA 3 TIMES A DAY, 157.5, cm, 02/21/22 14:36:00 EST, Height Start Date: 02/28/22 Status: Ordered lidocaine 5% topical ointment See Instructions, APPLY TO AFFECTED AREA 3 TIMES A DAY, # 35.44 Gm, 11 Refills, Maintenance, 07/03/22 18:22:00 EDT, [facility]/pharmacy #[id number], 30, Duplicate Rx. Original sent 07/03/22 with routing error. Re-sending to pharmacy, APPLY TO AFFECTED AREA 3 TIMES A... Start Date: 07/03/22 Status: Ordered losartan 50 mg oral tablet 1 tablet, By Mouth, Daily, # 90 tablet, 1 Refills, Maintenance, 07/11/22 15:04:00 EDT, [facility]/pharmacy#4471, 157.5, cm, 06/21/22 8:43:00 EDT, Height Start Date: 07/11/22 Status: Ordered losartan 50 mg oral tablet See Instructions, TAKE 1 TABLET BY MOUTH EVERY DAY, # 90 tablet, 1 Refills, Maintenance, 03/11/23 15:50:00 EST, [facility], 157.5, cm, 02/19/23 9:20:00 EST, Height Start Date: 03/11/23 Status: Ordered Lyrica 25 mg oral capsule See Instructions, 1 capsule By Mouth 1 time daily at bedtime. E11.9, # 30 each, 5 Refills, Maintenance, 01/21/23 15:40:00 EDT, Capsule, [facility]/pharmacy #[id number], Partial fill upon patient request if the prescription is for a schedule II opioid drug., 157.5,... Start Date: 01/21/23 Status: Ordered mirtazapine 15 mg oral tablet 1 tablet = 15 mg, By Mouth, Daily at bedtime, # 30 tablet, 4 Refills, Maintenance, 12/06/22 13:07:00 EDT, Tablet, [facility]/pharmacy #[id number], [...] EST, Height Start Date: 02/22/23 Status: Ordered [place]-3 Fish Oil 1000 mg oral capsule 1 [...] 05/01/21 Start Date: 06/02/21 Status: Ordered Pen [place], 31 G x 8 mm BD Ultra [...] 12/06/22 13:08:00 EDT, Route to Pharmacy Electronically, [facility]/pharmacy #[id number], Partial fill upon patient request if the prescription is for a schedule II opi... Start Date: 12/06/22 Stop Date: 05/05/23 Status: Ordered registered nurse step down grabber tool registered nurse step down grabber tool, See Instructions, # 1 each, Refills 0, Tot. Refills 0, Maintenance, please dispense one registered nurse step down grabber tool, ICD 10 M54.6, length of use 1 month, 04/12/22 10:13:00 EST, Supply Start Date: 04/12/22 Status: Ordered replacement hospital bed with mattress replacement hospital bed with mattress, See Instructions, # 1 each, Refills 0, Tot. Refills 0, Maintenance, please dispense 1 replacement hospital bed [facility], DX G89.4, length of use lifetime, 06/20/22 14:20:00 EDT, Supply Start Date: 06/20/22 Status: Ordered topiramate 25 mg oral tablet 3 tablet, By Mouth, Daily at bedtime, # 90 tablet, 10 Refills, Maintenance, 01/17/23 8:54:00 EDT, [facility], 157.5, cm, 12/28/22 15:12:00 EDT, Height Start Date: 01/17/23 Status: Ordered Trulicity Pen 4.5 mg/0.5 mL subcutaneous solution See Instructions, INJECT 4.5 MG SUBCUTANEOUSLY ONCE A WEEK, # 2 mL, 5 Refills, Maintenance, 11/21/22 8:33:00 EDT, [facility], 157.5, cm, 11/16/22 13:50:00 EDT, Height Start Date: 11/21/22 Status: Ordered valACYclovir 500 mg oral tablet 1, tablet, By Mouth, 2 times a day, PRN, # 6 tablet, Refills 1, Maintenance, NEEDED FOR OUTBREAKS, 04/10/23 8:50:00 EST, Route to Pharmacy Electronically, [facility] STORE 57166, 157.5, cm, 03/18/23 11:17:00 EST, Height Start Date: 04/10/23 Status: Ordered Vascepa 1 g oral capsule 2 capsule = 2 Gm, By Mouth, 2 times a day, # 360 capsule, 5 Refills, Maintenance, 05/03/20 15:59:00EST, Capsule, [facility]/pharmacy #[id number], 157.48, cm, 03/04/20 14:14:00 EST, Height Start Date: 05/03/20 Status: Ordered Ventolin HFA 108 mcg/inh inhalation aerosol with adapter 1 puffs, Inhalation, 4 times a day, PRN NEEDED FOR WHEEZING, # 18 each, 0 Refills, Maintenance, 09/17/22 15:25:00 EDT, [facility] STORE 81260, 157.5, cm, 09/05/22 16:22:00 EDT, Height Start [...] 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 No wall motion abnormalities, Does [...] Name: Sergo Bazzi MD Position: [facility] Physician - Primary Care Member Role: PCP Address: Address: [address] [place] [address] [place] [address]- Name: Lizbeth Collins [place] Position: [facility] RN Member Role: Primary Care Nurse Care Team Related Persons Name: LB HENLEY Address: home [address] [place] [address] Name: LB HENLEY Address: [address] [address] Name: MILENA CUBA Address: home [address] [place] [address]
--- OUTSIDE RECORDS SUMMARY | 2024-01-23 14:38 | XMS_ITS | Continuity of Care Document ---
Author Organization [facility] Address [address] [place] [address]- Care Team Providers Care Calender Inspector Name Role Phone Rose Mary FISCHER, Sergo Cole Primary Care Physician Encounter [facility] [place] Date(s): 11/06/21 - 12/06/21 [facility] [address] [place] [address] Allergies, Adverse Reactions, Alerts Substance Reaction Severity Status morphine ITCH DIARRHEA Active trazodone DEPRESSION Active cortisone Active Motrin eat lining of stomach Active Naprosyn gi upset Active Latex powder eats up skin Active [...] 8 01/21/08 Given 1Result Comment: [01/22/2017] [facility] [id number] 2Admin Note: vis given dated 10/24/12 3Admin Note: vis given dated 10/01/11 4Admin Note: vis 5Admin Note: vis 6Admin Note: vis given: 10/27/2006 7Admin Note: vis given : 10/10/2005 8Admin Note: vis given 2007- Medications acetaminophen 500 mg oral tablet 2 tablet, By Mouth, 4 times a day, PRN NEEDED FOR PAIN, # 100 tablet, 1 Refills, Acute, 219:52:00 EDT, [facility] STORE 34731, 157.48, cm, 10/11/20 9:39:00 EDT, Height Start Date: 10/26/20 Status: Ordered Alcohol Pads See Instructions, # 200 each, Refills 11, Tot. Refills 11, Maintenance, To cleans before injections5 x a day., 03/03/21 9:18:00 EST, E11.65, Compound, 157.48, cm, 03/01/21 15:54:00 EST, Height Start Date: 03/03/21 Stop Date: 02/26/22 Status: Ordered Twgrt-Niuuji-Uekc 300 mg oral capsule 1 capsule, By Mouth, 2 times a day, NOT COVERED., # 60 capsule, 11 Refills, [facility] STORE 73233, 157.48, cm, 01/27/21 9:30:00 EDT, Height Start Date: 01/30/21 Status: Ordered ammonium lactate 12% topical cream 1 application, Topically, 2 times a day, # 385 Gm, 5 Refills, Maintenance, 09/08/21 9:35:00 EDT, Cream, [facility]/pharmacy #[id number], Partial fill upon patient [...] EST, Height Start Date: 06/02/21 Stop Date: 5/28/23 Status: Ordered Daily David oral tablet 1 tablet, By Mouth, Daily, INSTR:TAKE IT 2 HOURS SEPARATE FROM ORLISTAT ([place]), # 30 tablet, 11 Refills, Maintenance, 08/19/20 16:26:00 EDT, [facility] STORE 56546, 30, TAKE 1 TABLET BY MOUTH DAILY. [...] 6 Refills, Maintenance, 09/01/21 13:11:00 EDT, Gel, [facility]/pharmacy #[id number], 157.48, cm, 08/24/21 8:03:00 EDT, Height Start Date: 09/01/21 Stop Date: 03/30/22 Status: Ordered docusate sodium 100 mg oral capsule 100 mg, 1, capsule, By Mouth, 2 times a day, PRN, # 60 capsule, Refills 5, Tot. Refills 5, Maintenance, as needed for constipation, 11/10/21 9:17:00 EDT, Route to Pharmacy Electronically, [facility]/pharmacy #[id number], Partial fill upon patient [...] EVERY DAY, # 16 mL, 5 Refills, [facility] STORE 54816, 30, USE 1 SPRAY IN EACH NOSTRIL [...] A DAY, # 35.44 Gm, 11 Refills, [facility] STORE 56713, 30, APPLY TO AFFECTED AREA 3 TIMES A DAY, 157.5, cm, 11/07/21 10:51:00 EDT, Height Start Date: 11/09/21 Status: Ordered losartan 50 mg oral tablet 1 tablet, By Mouth, Daily, # 30 tablet, 2 Refills, [facility] STORE 23809, 157.48, cm, 05/05/21 9:51:00 EST, Height Start Date: 05/12/21 Status: Ordered Lyrica 25 mg oral capsule See Instructions, 1 capsule By Mouth 1 time daily at bedtime. E11.9, # 30 each, 5 Refills, Maintenance, 09/18/21 12:21:00 EDT, Capsule, [facility]/pharmacy #[id number], Partial fill upon patient [...] 2 mL, 5 Refills, 08/24/21 9:20:00 EDT, [facility], 157.48, cm, 08/24/21 8:03:00 [...] Active *Briana Garces, Care Coor dinator, ICP [phone](Confirmed) Active Reflux(Confirmed) Active Hepatic steatosis(Confirmed) Active -EF [...] Rose Mary FISCHER, Sergo Cole Address: [address] [place] [address] Adult Medicine [address]
--- OUTSIDE RECORDS SUMMARY | 2024-01-23 14:38 | XMS_ITS | Continuity of Care Document ---
Author Organization [facility] Address [address] [place] [address]- Care Team Providers Care Clay Stain Mixer Name Role Phone Sergo Bazzi MD Primary Care Physician [phone] Encounter [facility] Date(s): 03/07/22 - 04/06/22 [facility] [address] [place], [place] [address] Allergies, Adverse Reactions, Alerts Substance [...] Comment: [01/22/2017] [facility] [id number] 2Admin Note: vis given dated 10/24/12 3Admin Note: vis given dated 10/01/11 4Admin Note: vis 5Admin Note: vis 6Admin Note: vis given: 10/27/2006 7Admin Note: vis given : 10/10/2005 8Admin Note: vis given 2007- Medications acetaminophen 500 mg oral tablet 2 tablet, By Mouth, 4 times a day, PRN NEEDED FOR PAIN, # 100 tablet, 1 Refills, Acute, 219:52:00 EDT, [facility], 157.48, cm, 10/11/20 9:39:00 EDT, Height Start Date: 10/26/20 Status: Ordered Alcohol Pads See Instructions, # 200 each, Refills 11, Tot. Refills 11, Maintenance, To cleans before injections5 x a day., 03/03/21 9:18:00 EST, E11.65, Compound, 157.48, cm, 03/01/21 15:54:00 EST, Height Start Date: 03/03/21 Stop Date: 02/26/22 Status: Ordered Pwveg-Lmlgzd-Brfa 300 mg oral capsule 1 capsule, By Mouth, 2 times a day, NOT COVERED., # 60 capsule, 11 Refills, [facility], 157.48, cm, 01/27/21 9:30:00 EDT, Height Start Date: 01/30/21 Status: Ordered ammonium lactate 12% topical cream 1 application, Topically, 2 times a day, # 385 Gm, 3 Refills, Maintenance, 04/05/22 13:30:00 EST, Cream, [facility]/pharmacy #[id number], Partial fill upon patient request if the prescription is for a schedule IIopioid drug., 1 application Topically 2 times a day... Start Date: 04/05/22 Stop Date: 08/03/22 Status: Ordered atorvastatin 80 mg oral tablet 1 tablet = 80 mg, By Mouth, Daily, replaces Simvastatin, # 90 tablet, 4 Refills, Maintenance, 08/26/22 14:22:00 EDT, Tablet, [facility]/pharmacy #[id number], replaces simvastatin, 157.5, cm, 11/29/21 15:59:00 EDT, Height Start Date: 08/26/22 Stop Date: 11/19/23 Status: Ordered capsaicin 0.075% topical cream See Instructions, APPLY TO AFFECTED AREA TWICE A DAY, # 57 Gm, 4 Refills, Maintenance, 03/05/22 13:29:00 EST, [facility], 30, APPLY TO AFFECTED AREA TWICE A [...] Refills, Maintenance, 08/19/20 16:26:00 EDT, [facility], 30, TAKE 1 TABLET BY MOUTH DAILY. [...] Gm, 6 Refills, Maintenance, 03/19/22 9:28:00 EST, [facility], 30, APPLY TOPICALLY 4 TIMES A DAY NOT TO EXCEED 16 GRAMS/DAY/SINGLE... Start Date: 03/19/22 Status: Ordered docusate sodium 100 mg oral capsule 100 mg, 1, capsule, By Mouth, 2 times a day, PRN, # 60 capsule, Refills 5, Tot. Refills 5, Maintenance, as needed for constipation, 11/10/21 9:17:00 EDT, Route to Pharmacy Electronically, [facility]/pharmacy #[id number], Partial fill upon patient request [...] each, 0 Refills, Maintenance, 03/22/22 16:35:00 EST, [facility] 268[facility], 30, INHALE 1 PUFF BY MOUTH TWICE A DAY, 157.5, cm, 03/22/22 13:25:00 EST, Height Start Date: 03/22/22 Status: Ordered fluticasone 50 mcg/inh nasal spray See Instructions, USE 1 SPRAY IN EACH NOSTRIL EVERY DAY, # 16 mL, 5 Refills, 12/29/21 15:10:00 EDT,[facility]/pharmacy #[id number], USE 1 SPRAY IN EACH [...] 3 Refills, Maintenance, 03/22/22 15:43:00 EST, [facility], Partial fill upon patie... Start Date: 03/22/22 Status: Ordered Lantus Solostar Pen 100 units/mL subcutaneous solution See Instructions, Decreased to 60U once a day as of 12/29/19, # 30 mL, 9 Refills, Maintenance, 09/20/20 15:10:00 EDT, [facility], NEEDS 30 ML FOR 30 DAY SUPPLY E11.9, 157.48, cm, 05/31/20 9:41:00 EST, Height Start Date: 09/20/20 Status: Ordered Lantus Solostar Pen 100 units/mL subcutaneous solution See Instructions, Take 80 units via Subcutaneous Infusion Daily at bedtime. E11.9., # 30 mL, 9 Refills, Maintenance, 03/22/22 15:41:00 EST, [facility], Partial fill upon patient request if the prescription is for a schedule II opioid... Start Date: 03/22/22 Status: Ordered lidocaine 5% topical ointment See Instructions, APPLY TO AFFECTED AREA 3 TIMES A DAY, # 35.44 Gm, 11 Refills, Maintenance, 02/28/22 8:51:00 EST, [facility]/pharmacy #[id number], 30, APPLY TO AFFECTED AREA 3 TIMES A DAY, 157.5, cm, 02/21/22 14:36:00 EST, Height Start Date: 02/28/22 Status: Ordered losartan 50 mg oral tablet 1 tablet, By Mouth, Daily, # 30 tablet, 5 Refills, 12/08/21 16:06:00 EDT, [facility]/pharmacy #[id number], 157.5, cm, 11/29/21 15:59:00 EDT, Height Start Date: 12/08/21 Status: Ordered Lyrica 25 mg oral capsule See Instructions, 1 capsule By Mouth 1 time daily at bedtime. E11.9, # 30 each, 5 Refills, Maintenance, 09/18/21 12:21:00 EDT, Capsule, [facility]/pharmacy #[id number], Partial fill upon patient request [...] 05/01/21 Start Date: 06/02/21 Status: Ordered Pen [place], 31 G x 8 mm BD Ultra [...] mL, 5 Refills, 01/23/22 16:33:00 EDT, [facility], 157.5, cm, 01/20/22 13:38:00 EDT, Height Start Date: 01/23/22 Status: Ordered Trulicity Pen 4.5 mg/0.5 mL subcutaneous solution See Instructions, 4.5 mg Subcutaneous Infusion weekly. E11.9, # 4 each, 5 Refills, Maintenance, 03/22/22 15:41:00 EST, [facility], Partial fill upon patient request if the prescription is for a schedule II opioid drug., 157.5, cm, 12/... Start Date: 03/22/22 Status: Ordered Vascepa 1 g oral capsule 2 capsule = 2 Gm, By Mouth, 2 times a day, # 360 capsule, 5 Refills, Maintenance, 05/03/20 15:59:00EST, Capsule, [facility]/pharmacy #[id number], 157.48, cm, 03/04/20 14:14:00 EST, Height Start Date: 05/03/20 Status: Ordered Ventolin HFA 108 mcg/inh inhalation aerosol with adapter 1 puffs, Inhalation, 4 times a day, PRN NEEDED FOR WHEEZING, # 18 each, 0 Refills, Maintenance, 04/04/22 12:59:00 EST, [facility] 07406, 157.5, cm, 03/22/22 13:25:00 EST, Height Start [...] 5 Confirmed 02/20/10 Active *Briana Garces, Oil Separator, ICP [phone] Confirmed Active Reflux Confirmed Active Severe obesity [...] Name: Rose Mary FISCHER, Sergo Cole Position: [facility] Primary Care Physician Member Role: PCP Address: Address: [address] [facility] [place] [address]- Care Team Related Persons Name: LB HENLEY Address: [address] [place] [address] Name: LB HENLEY Address: home [address] [address] Name: MILENA CUBA Address: home [address] [facility] [address] [place] [address]
--- OUTSIDE RECORDS SUMMARY | 2024-01-23 14:38 | XMS_ITS | Continuity of Care Document ---
Author Organization [facility] Address [address] [place] [address]- Care Team Providers Care Site Safety Representative Name Role Phone Rose Mary FISCHER, Sergo Cole Primary Care Physician Encounter [facility] Date(s): 04/20/20 - 05/20/20 [facility] [address] [place], [place] [address] Allergies, Adverse Reactions, Alerts [...] [01/22/2017] [facility] [id number] 2Admin Note: vis given dated 10/24/12 3Admin [...] mL, 5 Refills, Maintenance, 09/02/19 13:54:00 EDT, [facility], E11.9, 157.48, cm, 04/27/19 [...] Refills, Maintenance, 02/01/20 15:26:00 EST, [facility]/pharmacy #[id number], 157.48, cm, 01/25/20 15:23:00 EDT, [...] tablet, 5 Refills, Maintenance, 12/21/19 17:01:00 EDT, [facility]/pharmacy#[id number], 157.48, cm, 04/27/19 15:43:00 EST, Height Start Date: 12/21/19 Status: Ordered atorvastatin 80 mg oral tablet 1 tablet = 80 mg, By Mouth, Daily, replaces Simvastatin, # 90 tablet, 4 Refills, Maintenance, 02/23/20 11:05:00 EST, Tablet, [facility]/pharmacy #[id number], replaces simvastatin, 157.48, cm, 01/25/20 15:23:00 EDT, Height Start Date: 02/23/20 Stop Date: 05/18/21 Status: Ordered atorvastatin 80 mg oral tablet 1 tablet = 80 mg, By Mouth, Daily, for 90 days, replaces Simvastatin, # 90 tablet, 4 Refills, Hard Stop 04/01/21 14:01:00 EST, 01/07/20 14:01:00 EDT, Tablet, [facility]/pharmacy #[id number], replaces simvastatin,157.48, cm, 12/29/19 15:55:00 EDT, Height Start Date: 01/07/20 Stop Date: 04/01/21 Status: Ordered BD ultra fine III pen needles [id number] BD ultra fine III pen needles [id number], See Instructions, # 360 each, Refills 3, [...] 60 Gm, 4 Refills, Acute, [facility], 30, APPLY TO AFFECTED AREA TWICE A [...] 6 Refills, Maintenance, 12/24/19 9:18:00 EDT, Gel, [facility]/pharmacy #[id number], 157.48, cm, 04/27/19 15:43:00 EST, [...] Maintenance, 01/07/20 14:00:00 EDT, Tablet, [facility]/pharmacy #[id number], 157.48, cm, 12/29/19 15:55:00 EDT, [...] 3, Maintenance, use up to check blood [id number] per day. 90 DAY SUPPLY, E11.9, 02/29/20 [...] mL, 2 Refills, Maintenance, 04/07/20 16:52:00 EST, [facility], Partial fill upon patient [...] mL, 11 Refills, Maintenance, 09/02/19 13:55:00 EDT, [facility], NEEDS 30 ML FOR [...] 35.44 Gm, 11 Refills, Acute, [facility], 30, APPLY TO AFFECTED AREA 3 TIMES A DAY, 157.48, cm, 03/04/20 14:14:00 EST, Height Start Date: 05/10/20 Status: Ordered losartan 50 mg oral tablet 50 mg, 1, tablet, By Mouth, Daily, can substitute 25mg tabs x2 if needed, # 30 tablet, Refills 5, Tot. Refills 5, Maintenance, 01/11/20 11:21:00 EDT, Route to Pharmacy Electronically, [facility]/pharmacy #[id number], 157.48, cm, 12/29/19 15:55:00 EDT, [...] Maintenance, 08/14/19 8:49:00 EDT, Tablet, [facility]/pharmacy #[id number], 1 tablet By Mouth Daily,x90 days,Instr:Take it 2 hours separate from Orlistat ([place]), 157.... Start Date: 08/14/19 Stop Date: 11/06/20 Status: Ordered oxyCODONE 5 mg oral tablet 5 mg, 1, tablet, By Mouth, Every 12 hours, PRN, Refills 0, Tot. Refills 0, Maintenance, as needed for pain, 02/16/19 14:51:00 EST, Partial fill upon patient request Start Date: 02/16/19 Status: Ordered Pen [place], 31 G x 8 mm BD Ultra [...] EDT, 04/21/20 13:36:00 EST, Tablet, [facility]/pharmacy #[id number], 157.48, cm, 03/04/20... Start Date: 04/21/20 Stop Date: 11/17/20 Status: Ordered Topamax 25 mg oral tablet 2 tablet = 50 mg, By Mouth, Daily at bedtime, # 60 tablet, 6 Refills, Maintenance, 04/21/20 13:35:00 EST, Tablet, [facility]/pharmacy #[id number], 157.48, cm, 03/04/20 14:14:00 EST, Height Start Date: 04/21/20 Stop Date: 11/17/20 Status: Ordered Trulicity Pen 1.5 mg/0.5 mL subcutaneous solution 0.5 mL = 1.5 mg, Subcutaneous Injection, Every Saturday, for 90 days, # 7.5 mL, 3 Refills, Hard Stop 12/08/21 15:26:00 EDT, 12/13/20 15:26:00 EDT, Solution, [facility], E11.65, 157.48, cm, 04/27/19 15:43:00 EST, Height Start Date: 12/13/20 Stop Date: 12/08/21 Status: Ordered Trulicity Pen 1.5 mg/0.5 mL subcutaneous solution 0.5 mL = 1.5 mg, Subcutaneous Injection, Every Saturday, E11.9, # 7.5 mL, 3 Refills, Maintenance, 12/08/21 15:26:00 EDT, Solution, [facility], E11.65, 157.48, cm, 03/04/20 14:14:00 EST, Height Start Date: 12/08/21 Stop Date: 12/03/22 Status: Ordered Trulicity Pen 1.5 mg/0.5 mL subcutaneous solution 0.5 mL = 1.5 mg, Subcutaneous Injection, Every Saturday, for 90 days, # 6.5 mL, 5 Refills, Hard Stop 12/13/20 15:26:00 EDT, 06/22/19 15:26:00 EDT, Solution, [facility]/pharmacy #[id number], E11.65, 157.48, cm, 04/27/19 15:43:00 EST, Height Start Date: 06/22/19 Stop Date: 12/13/20 Status: Ordered Vascepa 1 g oral capsule 2 capsule = 2 Gm, By Mouth, 2 times a day, # 360 capsule, 5 Refills, Maintenance, 05/03/20 15:59:00EST, Capsule, [facility]/pharmacy #[id number], 157.48, cm, 03/04/20 14:14:00 EST, [...] Active *Briana Garces, Care Coor dinator, ICP [phone](Confirmed) Active Reflux(Confirmed) Active 91911 -EF 60-65%. No wall motion abnormalities, Does [...]
--- OUTSIDE RECORDS SUMMARY | 2024-01-23 14:39 | XMS_ITS | Continuity of Care Document ---
Author Organization [facility] Address [address] [place] [address]- Care Team Providers Care Case Loader Operator Name Role Phone Sergo Bazzi MD Primary Care Physician [phone] Encounter [facility] Date(s): 10/22/22 - 11/21/22 [facility] [address] [place] [address]- [place] Allergies, Adverse Reactions, Alerts Substance Reaction [...] Given 1Result Comment: [01/22/2017] [facility] [id number] 2Admin Note: vis given dated 10/24/12 3Admin [...] 100 tablet, 1 Refills, Acute, 219:52:00 EDT, [facility], 157.48, cm, 10/11/20 9:39:00 EDT, Height Start Date: 10/26/20 Status: Ordered Alcohol Pads See Instructions, # 200 each, Refills 11, Tot. Refills 11, Maintenance, To cleans before injections5 x a day., 03/03/21 9:18:00 EST, E11.65, Compound, 157.48, cm, 03/01/21 15:54:00 EST, Height Start Date: 03/03/21 Stop Date: 02/26/22 Status: Ordered Zowza-Rrxfrg-Jtzi 300 mg oral capsule 1 capsule, By Mouth, 2 times a day, NOT COVERED., # 60 capsule, 11 Refills, [facility], 157.48, cm, 01/27/21 9:30:00 EDT, Height Start Date: 01/30/21 Status: Ordered ammonium lactate 12% topical cream 1 application, Topically, 2 times a day, # 385 Gm, 3 Refills, Maintenance, 08/24/22 14:16:00 EDT, Cream, [facility]/pharmacy #[id number], Partial fill upon patient request if the prescription is for a schedule IIopioid drug., 1 application Topically 2 times a day... Start Date: 08/24/22 Stop Date: 12/22/22 Status: Ordered atorvastatin 80 mg oral tablet 1 tablet = 80 mg, By Mouth, Daily, replaces Simvastatin, # 90 tablet, 4 Refills, Maintenance, 08/26/22 14:22:00 EDT, Tablet, [facility]/pharmacy #[id number], replaces simvastatin, 157.5, cm, 11/29/21 15:59:00 EDT, Height Start Date: 08/26/22 Stop Date: 11/19/23 Status: Ordered BD Single Use Swab 70% topical pad See Instructions, TO CLEANS BEFORE INJECTIONS 5 X A DAY., # 150 Unknown, 11 Refills, Maintenance, 08/16/22 10:15:00 EDT, [facility], 30, TO CLEANS BEFORE INJECTIONS 5 X A DAY., 157.5, cm, 08/01/22 9:27:00 EDT, Height Start Date: 08/16/22 Status: Ordered capsaicin 0.075% topical cream See Instructions, APPLY TO AFFECTED AREA TWICE A DAY, # 57 Gm, 4 Refills, Maintenance, 08/24/22 14:16:00 EDT, [facility]/pharmacy #[id number], 30, APPLY TO AFFECTED [...] 11 Refills, Maintenance, 07/09/22 10:30:00 EDT, [facility]/pharmacy #[id number], 30, 1 tablet By [...] Replace Required Details, Route to Pharmacy Electronically, [facility]/pharmacy... Start Date: 08/30/22 Status: Ordered diclofenac 1% topical gel See Instructions, APPLY TOPICALLY 4 TIMES A DAY NOT TO EXCEED 16 GRAMS/DAY/SINGLE JOINT OF LOWER EXTREMITIES, # 100 Gm, 6 Refills, Maintenance, 08/24/22 14:16:00 EDT, [facility]/pharmacy #[id number], 30, APPLY TOPICALLY 4 TIMES A DAY NOT TO EXCEED 16 GRAMS/DAY/SIN... Start Date: 08/24/22 Status: Ordered docusate sodium 100 mg oral capsule See Instructions, TAKE 1 CAPSULE BY MOUTH TWICE A DAY NEEDED FOR CONSTIPATION, # 60 capsule, 5 Refills, Maintenance, 07/03/22 18:20:00 EDT, [facility]/pharmacy #[id number], Duplicate Rx. Original sent 07/03/22 with routing error. Re- sending to pharmacy, 157.5, cm... Start Date: 07/03/22 Status: Ordered docusate sodium 100 mg oral capsule 100 mg, 1, capsule, By Mouth, 2 times a day, PRN, # 60 capsule, Refills 5, Tot. Refills 5, Maintenance, as needed for constipation, 06/12/22 9:52:00 EDT, Route to Pharmacy Electronically, [facility]/pharmacy #[id number], Partial fill upon patient [...] Refills, Maintenance, 09/20/22 9:36:00 EDT, [facility], 30, INHALE 1 PUFF BY MOUTH TWICE A DAY, 157.5, cm, 09/05/22 16:22:00 EDT, Height Start Date: 09/20/22 Status: Ordered fluticasone 50 mcg/inh nasal spray See Instructions, SPRAY 1 SPRAY INTO EACH NOSTRIL EVERY DAY, # 16 mL, 5 Refills, Maintenance, 07/05/22 16:20:00 EDT, [facility], 30, SPRAY 1 SPRAY INTO EACH NOSTRIL [...] mL, 6 Refills, Maintenance, 06/12/22 10:00:00 EDT, [facility], Partial fill upon patie... Start Date: 06/12/22 Status: Ordered Lactaid 3000 units oral tablet 3 tablet = 9,000 units, By Mouth, 3 times a day with meals, # 120 tablet, 5 Refills, Maintenance, 08/17/22 9:03:00 EDT, Tablet, [facility]/pharmacy #[id number], Partial fill upon patient request if the prescription is for a schedule II opioid drug., 157.5, cm, ... Start Date: 08/17/22 Stop Date: 02/13/23 Status: Ordered Lantus Solostar Pen 100 units/mL subcutaneous solution See Instructions, Take 45 units in the AM and 45 units daily at bedtime. E11.9., # 30 mL, 9 Refills, Maintenance, 06/19/22 16:50:00 EDT, [facility], Partial fill upon patient requestif the [...] Gm, 11 Refills, Maintenance, 07/03/22 18:22:00 EDT, [facility]/pharmacy #[id number], 30, Duplicate Rx. Original [...] 5 Refills, Maintenance, 05/01/22 18:04:00 EST, Capsule, [facility]/pharmacy #[id number], Partial fill upon patient request if the prescription is for a schedule II opioid drug., 157.5,... Start Date: 05/01/22 Status: Ordered mirtazapine 15 mg oral tablet 1 tablet = 15 mg, By Mouth, Daily at bedtime, # 30 tablet, 4 Refills, Maintenance, 05/02/22 14:02:00 EST, Tablet, [facility]/pharmacy #[id number], Partial fill upon patient request if the prescription is for a schedule II opioid drug., 157.5, cm, 04/11/22 10:50:00... Start Date: 05/02/22 Stop Date: 09/29/22 Status: Ordered Nexium 40 mg oral enteric coated capsule 1 capsule = 40 mg, By Mouth, Daily, BRNAD NAME ONLY, # 90 capsule, 0 Refills, Maintenance, 10/18/2313:25:00 EDT, [facility]/pharmacy #[id number], Partial fill upon patient request if the prescription is for a schedule II opioid drug., 157.5, cm, 10/08/22 18:20:00... Start Date: 10/18/22 Stop Date: 01/16/23 Status: Ordered [place]-3 Fish Oil 1000 mg oral capsule 1 capsule = 1,000 mg, By Mouth, Daily, # 90 capsule, 1 Refills, Maintenance, 08/01/22 10:17:00 EDT,[facility]/pharmacy #[id number], Partial fill upon patient [...] Maintenance, 06/14/22 16:40:00 EDT, EC Tablet, [facility]/pharmacy #[id number], Partial fill upon patient request if the prescription is for a schedule II opioid drug., 157.5,... Start Date: 06/14/22 Status: Ordered oxyCODONE 10 mg oral tablet TAKE 1/2 TAB EVERY 12 HOURS NEEDED FOR SEVERE NECK/LOW BACK PAIN. DO NOT FILL UNTIL 05/01/21 Start Date: 06/02/21 Status: Ordered Pen [place], 31 G x 8 mm BD Ultra [...] 08/30/22 13:31:00 EDT, Route to Pharmacy Electronically, [facility]/pharmacy #[id number], Partial fill upon patient request if the prescription is for a schedule II opi... Start Date: 08/30/22 Stop Date: 01/27/23 Status: Ordered case loader operator grabber tool case loader operator grabber tool, See Instructions, # 1 each, Refills 0, Tot. Refills 0, Maintenance, please dispense one case loader operator grabber tool, ICD 10 M54.6, length [...] 14:16:00 EDT, 08/24/22 14:16:00 EDT, Chew Tablet, [facility]/pharmacy #[id number], Partial fill upon patient [...] Stop 12/15/22 14:36:00 EDT, 04/19/22 14:36:00 EST, [facility]/pharmacy #[id number], 157.5, cm, 04/11/22 10:50:00 EST, Height Start Date: 04/19/22 Stop Date: 12/15/22 Status: Ordered Topamax 25 mg oral tablet 3 tablet = 75 mg, By Mouth, Daily at bedtime, # 90 tablet, 6 Refills, Maintenance, 06/26/22 10:14:00 EDT, Tablet, [facility], 157.5, cm, 06/21/22 8:43:00 EDT, Height Start Date: 06/26/22 Stop Date: 01/22/23 Status: Ordered Trulicity Pen 4.5 mg/0.5 mL subcutaneous solution See Instructions, INJECT 4.5 MG SUBCUTANEOUSLY ONCE A WEEK, # 2 mL, 5 Refills, Maintenance, 11/21/22 8:33:00 EDT, [facility], 157.5, cm, 11/16/22 13:50:00 EDT, Height Start Date: 11/21/22 Status: Ordered valACYclovir 500 mg oral tablet 1, tablet, By Mouth, 2 times a day, PRN, # 6 tablet, Refills 2, Maintenance, NEEDED FOR OUTBREAKS, 07/11/22 16:11:00 EDT, Route to Pharmacy Electronically, [facility], 157.5, cm, 06/21/22 8:43:00 EDT, Height Start Date: 07/11/22 Stop Date: 07/14/22 Status: Ordered Vascepa 1 g oral capsule 2 capsule = 2 Gm, By Mouth, 2 times a day, # 360 capsule, 5 Refills, Maintenance, 05/03/20 15:59:00EST, Capsule, [facility]/pharmacy #[id number], 157.48, cm, 03/04/20 14:14:00 EST, Height Start Date: 05/03/20 Status: Ordered Ventolin HFA 108 mcg/inh inhalation aerosol with adapter 1 puffs, Inhalation, 4 times a day, PRN NEEDED FOR WHEEZING, # 18 each, 0 Refills, Maintenance, 09/17/22 15:25:00 EDT, [facility], 157.5, cm, 09/05/22 16:22:00 EDT, Height Start [...] 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 No wall motion abnormalities, Does [...] Name: Rose Mary FISCHER, Sergo Cole Position: [facility] Physician - Primary Care Member Role: PCP Address: Address: [address] [facility] [place] [address]- Name: Lizbeth Collins [place] Position: [facility] RN Member Role: Primary Care Nurse Care Team Related Persons Name: LB HENLEY Address: [address] [place] [address] Name: LB HENLEY Address: home [address] [address] Name: MILENA CUBA Address: home [address] [facility] [place] [address]
--- OUTSIDE RECORDS SUMMARY | 2024-01-23 14:39 | XMS_ITS | Continuity of Care Document ---
Author Organization [facility] Address [address] [place] [address]- Care Team Providers Care Plaster Mold Maker Name Role Phone Rose Mary FISCHER, Sergo Cole Primary Care Physician [phone] Encounter [facility] Date(s): 04/04/22 - 05/04/22 [facility] [address], [place] [address] Allergies, Adverse Reactions, Alerts [...] Comment: [01/22/2017] [facility] [id number] 2Admin Note: vis given dated 10/24/12 3Admin Note: vis given dated 10/01/11 4Admin Note: vis 5Admin Note: vis 6Admin Note: vis given: 10/27/2006 7Admin Note: vis given : 10/10/2005 8Admin Note: vis given 2007- Medications acetaminophen 500 mg oral tablet 2 tablet, By Mouth, 4 times a day, PRN NEEDED FOR PAIN, # 100 tablet, 1 Refills, Acute, 219:52:00 EDT, [facility], 157.48, cm, 10/11/20 9:39:00 EDT, Height Start Date: 10/26/20 Status: Ordered Alcohol Pads See Instructions, # 200 each, Refills 11, Tot. Refills 11, Maintenance, To cleans before injections5 x a day., 03/03/21 9:18:00 EST, E11.65, Compound, 157.48, cm, 03/01/21 15:54:00 EST, Height Start Date: 03/03/21 Stop Date: 02/26/22 Status: Ordered Djoiw-Unrfyz-Fdub 300 mg oral capsule 1 capsule, By Mouth, 2 times a day, NOT COVERED., # 60 capsule, 11 Refills, [facility], 157.48, cm, 01/27/21 9:30:00 EDT, Height Start [...] Gm, 4 Refills, Maintenance, 03/05/22 13:29:00 EST, [facility], 30, APPLY TO AFFECTED AREA TWICE A [...] tablet, 11 Refills, Maintenance, 08/19/20 16:26:00 EDT, [facility], 30, TAKE 1 TABLET BY MOUTH DAILY. [...] Replace Required Details, Route to Pharmacy Electronically, [facility]/pharmacy... Start Date: 05/02/22 Status: Ordered diclofenac 1% topical gel See Instructions, APPLY TOPICALLY 4 TIMES A DAY NOT TO EXCEED 16 GRAMS/DAY/SINGLE JOINT OF LOWER EXTREMITIES, # 100 Gm, 6 Refills, Maintenance, 03/19/22 9:28:00 EST, [facility], 30, APPLY TOPICALLY 4 TIMES A DAY NOT TO EXCEED 16 GRAMS/DAY/SINGLE... Start Date: 03/19/22 Status: Ordered docusate sodium 100 mg oral capsule 100 mg, 1, capsule, By Mouth, 2 times a day, PRN, # 60 capsule, Refills 5, Tot. Refills 5, Maintenance, as needed for constipation, 11/10/21 9:17:00 EDT, Route to Pharmacy Electronically, [facility]/pharmacy #[id number], Partial fill upon patient request if [...] 0 Refills, Maintenance, 03/22/22 16:35:00 EST, [facility], 30, INHALE 1 PUFF BY MOUTH TWICE A DAY, 157.5, cm, 03/22/22 13:25:00 EST, Height Start Date: 03/22/22 Status: Ordered fluticasone 50 mcg/inh nasal spray See Instructions, USE 1 SPRAY IN EACH NOSTRIL EVERY DAY, # 16 mL, 5 Refills, 12/29/21 15:10:00 EDT,[facility]/pharmacy #[id number], USE 1 SPRAY IN EACH NOSTRIL [...] mL, 3 Refills, Maintenance, 03/22/22 15:43:00 EST, [facility], Partial fill upon patie... Start Date: 03/22/22 Status: Ordered Lantus Solostar Pen 100 units/mL subcutaneous solution See Instructions, Decreased to 60U once a day as of 12/29/19, # 30 mL, 9 Refills, Maintenance, 09/20/20 15:10:00 EDT, [facility], NEEDS 30 ML FOR 30 DAY SUPPLY E11.9, 157.48, cm, 05/31/20 9:41:00 EST, Height Start Date: 09/20/20 Status: Ordered Lantus Solostar Pen 100 units/mL subcutaneous solution See Instructions, Take 80 units via Subcutaneous Infusion Daily at bedtime. E11.9., # 30 mL, 9 Refills, Maintenance, 03/22/22 15:41:00 EST, [facility], Partial fill upon patient request if the prescription is for a schedule II opioid... Start Date: 03/22/22 Status: Ordered lidocaine 5% topical ointment See Instructions, APPLY TO AFFECTED AREA 3 TIMES A DAY, # 35.44 Gm, 11 Refills, Maintenance, 02/28/22 8:51:00 EST, [facility]/pharmacy #[id number], 30, APPLY TO AFFECTED AREA 3 TIMES A DAY, 157.5, cm, 02/21/22 14:36:00 EST, Height Start Date: 02/28/22 Status: Ordered losartan 50 mg oral tablet 1 tablet, By Mouth, Daily, # 30 tablet, 5 Refills, 12/08/21 16:06:00 EDT, [facility]/pharmacy #[id number], 157.5, cm, 11/29/21 15:59:00 EDT, Height [...] Refills, Maintenance, 03/30/22 10:50:00 EST, EC Tablet, [facility]/pharmacy #[id number], Partial fill upon patient request if the prescription is for a schedule II opioid drug., 157.5,... Start Date: 03/30/22 Status: Ordered oxyCODONE 10 mg oral tablet TAKE 1/2 TAB EVERY 12 HOURS NEEDED FOR SEVERE NECK/LOW BACK PAIN. DO NOT FILL UNTIL 05/01/21 Start Date: 06/02/21 Status: Ordered Pen [place], 31 G x 8 mm BD Ultra [...] 1 Refills, Maintenance, 04/11/22 11:31:00 EST, Tablet, [id number], Partial fill upon patient request if the prescription is for a schedule II opioid drug., 157.5, cm, 04/11/22 10:50:00 EST, Height Start Date: 04/11/22 Status: Ordered QUEtiapine 25 mg oral tablet 25 mg, 1, tablet, By Mouth, 2 times a day, # 60 tablet, Refills 4, Tot. Refills 4, Maintenance, 05/02/22 14:40:00 EST, [id number] Partial fill upon patient request if the prescription is for a schedule II opi... Start Date: 05/02/22 Status: Ordered pickle solution maker grabber tool pickle solution maker grabber tool, See Instructions, # 1 each, Refills 0, Tot. Refills 0, Maintenance, please dispense one pickle solution maker grabber tool, ICD 10 M54.6, length of use 1 month, 04/12/22 10:13:00 EST, Supply Start Date: 04/12/22 Status: Ordered SUMAtriptan 25 mg oral tablet 1 tablet, By Mouth, Daily, PRN NEEDED FOR MIGRAINES, for 30 days, MAY RPT DOSE AFTER 2 HRS TO MAX OF 2, # 12 tablet, 7 Refills, Physician Stop 12/15/22 14:36:00 EDT, 04/19/22 14:36:00 EST, [id number], 157.5, cm, 04/11/22 10:50:00 EST, Height Start Date: 04/19/22 Stop Date: 12/15/22 Status: Ordered Topamax 25 mg oral tablet 3 tablet = 75 mg, By Mouth, Daily at bedtime, # 90 tablet, 6 Refills, Maintenance, 04/19/22 14:35:00 EST, Tablet[id number], 157.5, cm, 04/11/22 10:50:00 EST, Height Start Date: 04/19/22 Stop Date: 11/15/22 Status: Ordered Trulicity Pen 3 mg/0.5 mL subcutaneous solution See Instructions, INJECT 0.5ML SUBCUTANEOUSLY EVERY WEEK, ROTATE INJECTION SITES, # 2 mL, 5 Refills, 01/23/22 16:33:00 EDT, [facility], 157.5, cm, 01/20/22 13:38:00 EDT, Height Start Date: 01/23/22 Status: Ordered Trulicity Pen 4.5 mg/0.5 mL subcutaneous solution See Instructions, 4.5 mg Subcutaneous Infusion weekly. E11.9, # 4 each, 5 Refills, Maintenance, 03/22/22 15:41:00 EST, [facility], Partial fill upon patient request if the prescription is for a schedule II opioid drug., 157.5, cm, .. 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 No wall motion abnormalities, Does [...] Team Personnel Name: Sergo Bazzi MD Position: [facility] Primary Care Physician Member Role: PCP Address: Address: [address] [place] [id number]- Name: Lizbeth Barnhart Position: [facility] RN Member Role: Primary Care Nurse Care Team Related Persons Name: LB HENLEY Address: [address] [place] [address] Name: LB HENLEY Address: home [address] [address] Name: MILENA CUBA Address: home [address] [place] [address]
--- OUTSIDE RECORDS SUMMARY | 2024-01-23 14:39 | XMS_ITS | Continuity of Care Document ---
Author Organization [facility] Address [address] [place] [address]- Care Team Providers Care Cycle Liaison Name Role Phone Rose Mary FISCHER, Sergo Cole Primary Care Physician Encounter [facility] Date(s): 03/18/23 - 04/17/23 [facility] [address] [place], [place] [address] Attending Physician: Admmina, [id number] [...] Given 1Result Comment: [01/22/2017] [facility] [id number] 2Admin Note: vis given dated 10/24/12 3Admin [...] 100 tablet, 1 Refills, Acute, 219:52:00 EDT, [facility], 157.48, cm, 10/11/20 9:39:00 EDT, Height Start Date: 10/26/20 Status: Ordered Alcohol Pads See Instructions, # 200 each, Refills 11, Tot. Refills 11, Maintenance, To cleans before injections5 x a day., 03/03/21 9:18:00 EST, E11.65, Compound, 157.48, cm, 03/01/21 15:54:00 EST, Height Start Date: 03/03/21 Stop Date: 02/26/22 Status: Ordered Fmnio-Bxjifz-Zssd 300 mg oral capsule 1 capsule, By Mouth, 2 times a day, NOT COVERED., # 60 capsule, 11 Refills, [facility] 41799, 157.48, cm, 01/27/21 9:30:00 EDT, Height Start Date: 01/30/21 Status: Ordered ammonium lactate 12% topical cream 1 application, Topically, 2 times a day, # 385 Gm, 1 Refills, Maintenance, 12/22/22 14:16:00 EDT, Cream, [facility]/pharmacy #[id number], Partial fill upon patient request if the prescription is for a schedule IIopioid drug., 1 application Topically 2 times a day... Start Date: 12/22/22 Stop Date: 02/20/23 Status: Ordered atorvastatin 80 mg oral tablet 1 tablet = 80 mg, By Mouth, Daily, replaces Simvastatin, # 90 tablet, 1 Refills, Maintenance, 11/19/23 14:22:00 EDT, Tablet, [facility]/pharmacy #[id number], replaces simvastatin, 157.5, cm, 11/26/22 14:11:00 [...] 4 Refills, Maintenance, 04/11/23 10:18:00 EST, [facility]29, 30, APPLY TO AFFECTED AREA TWICE A [...] 11 Refills, Maintenance, 07/09/22 10:30:00 EDT, [facility]/pharmacy #[id number], 30, 1 tablet By Mouth Daily,Instr:INSTR:TAKE [...] Gm, 1 Refills, Maintenance, 12/14/22 6:14:00 EDT, [facility]/pharmacy #[id number], 30, APPLY TOPICALLY 4 TIMES A DAY NOT TO EXCEED 16 GRAMS/DAY/SING... Start Date: 12/14/22 Status: Ordered docusate sodium 100 mg oral capsule See Instructions, TAKE 1 CAPSULE BY MOUTH TWICE A DAY NEEDED FOR CONSTIPATION, # 60 capsule, 5 Refills, Maintenance, 07/03/22 18:20:00 EDT, [facility]/pharmacy #[id number], Duplicate Rx. Original sent 07/03/22 with routing error. Re- sending to pharmacy, 157.5, cm... Start Date: 07/03/22 Status: Ordered esomeprazole 40 mg oral enteric coated capsule 1 capsule = 40 mg, By Mouth, Daily, # 90 capsule, 1 Refills, Maintenance, 03/07/23 13:32:00 EST, [facility]/pharmacy #[id number], Partial fill upon patient request [...] each, 0 Refills, Maintenance, 09/20/22 9:36:00 EDT, [facility]281, 30, INHALE 1 PUFF BY MOUTH TWICE A DAY, 157.5, cm, 09/05/22 16:22:00 EDT, Height Start Date: 09/20/22 Status: Ordered fluticasone 50 mcg/inh nasal spray See Instructions, SPRAY 1 SPRAY INTO EACH NOSTRIL EVERY DAY, # 16 mL, 5 Refills, Maintenance, 07/05/22 16:20:00 EDT, [facility]16, 30, SPRAY 1 SPRAY INTO EACH NOSTRIL [...] tablet, 4 Refills, Maintenance, 03/11/23 15:50:00 EST, [facility], 157.5, cm, 02/19/23 9:20:00 EST, Height Start [...] mL, 6 Refills, Maintenance, 11/26/22 14:55:00 EDT, [facility], Partial fill upon patie... Start Date: 11/26/22 Status: Ordered Lactaid 3000 units oral tablet 3 tablet = 9,000 units, By Mouth, 3 times a day with meals, # 120 tablet, 5 Refills, Maintenance, 08/17/22 9:03:00 EDT, Tablet, [facility]/pharmacy #[id number], Partial fill upon patient request if the prescription is for a schedule II opioid drug., 157.5, cm, ... Start Date: 08/17/22 Stop Date: 02/13/23 Status: Ordered Lantus Solostar Pen 100 units/mL subcutaneous solution See Instructions, Take 45 units in the AM and 45 units daily at bedtime. E11.9., # 30 mL, 9 Refills, Maintenance, 11/26/22 14:55:00 EDT, [facility], Partial fill upon patient requestif the prescription is for a schedule II opioid lucas... Start Date: 11/26/22 Status: Ordered levothyroxine 0.137 mg oral tablet 1 tablet = 137 mcg, By Mouth, Daily, # 30 tablet, 2 Refills, Maintenance, 04/17/23 7:46:00 EST, Tablet, [facility]/pharm[facility] #[id number], Partial fill upon patient request if the prescription is for a schedule II opioid drug., 157, cm, 04/16/23 11:33:00 EST, Height... Start Date: 04/17/23 Status: Ordered lidocaine 5% topical ointment See Instructions, APPLY TO AFFECTED AREA 3 TIMES A DAY, # 35.44 Gm, 11 Refills, Maintenance, 02/28/22 8:51:00 EST, [facility]/pharmacy #[id number], 30, APPLY TO AFFECTED AREA 3 TIMES A DAY, 157.5, cm, 02/21/22 14:36:00 EST, Height Start Date: 02/28/22 Status: Ordered lidocaine 5% topical ointment See Instructions, APPLY TO AFFECTED AREA 3 TIMES A DAY, # 35.44 Gm, 11 Refills, Maintenance, 07/03/22 18:22:00 EDT, [facility]/pharmacy #[id number], 30, Duplicate Rx. Original sent 07/03/22 with routing error. Re-sending to pharmacy, APPLY TO AFFECTED AREA 3 TIMES A... Start Date: 07/03/22 Status: Ordered losartan 50 mg oral tablet See Instructions, TAKE 1 TABLET BY MOUTH EVERY DAY, # 90 tablet, 1 Refills, Maintenance, 03/11/23 15:50:00 EST, [facility] 89748, 157.5, cm, 02/19/23 9:20:00 EST, Height Start Date: 03/11/23 Status: Ordered Lyrica 25 mg oral capsule See Instructions, 1 capsule By Mouth 1 time daily at bedtime. E11.9, # 30 each, 5 Refills, Maintenance, 01/21/23 15:40:00 EDT, Capsule, [facility]/pharmacy #[id number], Partial fill upon patient request if the prescription is for a schedule II opioid drug., 157.5,... Start Date: 01/21/23 Status: Ordered mirtazapine 15 mg oral tablet 1 tablet = 15 mg, By Mouth, Daily at bedtime, # 30 tablet, 4 Refills, Maintenance, 12/06/22 13:07:00 EDT, Tablet, [facility]/pharmacy #[id number], Partial fill upon patient request if the prescription is for a schedule II opioid drug., 157.5, cm, 11/26/22 14:11:00... Start Date: 12/06/22 Stop Date: 05/05/23 Status: Ordered Narcan 4 mg/0.1 mL nasal spray = 4 mg, Nares, Both, Once, # 2 each, 2 Refills, Soft Stop, 02/22/23 14:30:00 EST, [facility]/pharmacy #[id number], Partial fill upon patient request if the prescription is for a schedule II opioid drug., 157.5, cm, 02/19/23 9:20:00 EST, Height Start Date: 02/22/23 Status: Ordered [place]-3 Fish Oil 1000 mg oral capsule 1 [...] Maintenance, 06/14/22 16:40:00 EDT, EC Tablet, [facility]/pharmacy #[id number], Partial fill upon patient request if the prescription is for a schedule II opioid drug., 157.5,... Start Date: 06/14/22 Status: Ordered oxyCODONE 10 mg oral tablet TAKE 1/2 TAB EVERY 12 HOURS NEEDED FOR SEVERE NECK/LOW BACK PAIN. DO NOT FILL UNTIL 05/01/21 Start Date: 06/02/21 Status: Ordered Pen [place], 31 G x 8 mm BD Ultra [...] 12/06/22 13:08:00 EDT, Route to Pharmacy Electronically, [facility]/pharmacy #[id number], Partial fill upon patient request if the prescription is for a schedule II opi... Start Date: 12/06/22 Stop Date: 05/05/23 Status: Ordered instrument technician helper grabber tool instrument technician helper grabber tool, See Instructions, # 1 each, Refills 0, Tot. Refills 0, Maintenance, please dispense one instrument technician helper grabber tool, ICD 10 M54.6, length of [...] mL, 5 Refills, Maintenance, 11/21/22 8:33:00 EDT, [facility], 157.5, cm, 11/16/22 13:50:00 EDT, Height Start Date: 11/21/22 Status: Ordered valACYclovir 500 mg oral tablet 1, tablet, By Mouth, 2 times a day, PRN, # 6 tablet, Refills 1, Maintenance, NEEDED FOR OUTBREAKS, 04/10/23 8:50:00 EST, Route to Pharmacy Electronically, [facility], 157.5, cm, 03/18/23 11:17:00 EST, Height Start [...] each, 0 Refills, Maintenance, 09/17/22 15:25:00 EDT, [facility] 23208, 157.5, cm, 09/05/22 16:22:00 EDT, Height Start [...] 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 No wall motion abnormalities, Does [...] Bazzi MD Position: [facility] Physician - Primary Care Member Role: PCP Address: Address: [address] [facility] [place] [address]- Name: Lizbeth Collins [place] Position: [facility] RN Member Role: Primary Care Nurse Care Team Related Persons Name: LB HENLEY Address: home [address] [place] [address] Name: LB HENLEY Address: home [address] [address] Name: MILENA CUBA Address: home [address] [place] [address]
--- OUTSIDE RECORDS SUMMARY | 2024-01-23 14:39 | XMS_ITS | Continuity of Care Document ---
Author Organization [facility] Address [address] [place] [address]- Care Team Providers Care Piano Refinisher Name Role Phone Sergo Bazzi MD Primary Care Physician Encounter [facility] [place] Date(s[place] 08/02/23 - 09/01/23 [facility] [address] [address] Attending Physician: Broderick Washburn Admitting Physician: AdmBroderick [...] 01/21/08 Given 1Result Comment: [01/22/2017] [facility] [id number] 2Admin Note: vis given dated 10/24/12 3Admin [...] 100 tablet, 1 Refills, Acute, 219:52:00 EDT, [facility], 157.48, cm, 10/11/20 9:39:00 EDT, Height Start [...] EST, Height Start Date: 03/03/21 Stop Date: 11/28/22 Status: Ordered Fgqpd-Bbhrlc-Kbkb 300 mg oral capsule 1 capsule, By Mouth, 2 times a day, NOT COVERED., # 60 capsule, 11 Refills, [facility] STORE 92795, 157.48, cm, 01/27/21 9:30:00 EDT, Height Start Date: 01/30/21 Status: Ordered ammonium lactate 12% topical cream 1 application, Topically, 2 times a day, # 385 Gm, 1 Refills, Maintenance, 12/22/22 14:16:00 EDT, Cream, [facility]/pharmacy #[id number], Partial fill upon patient request if the prescription is for a schedule IIopioid drug., 1 application Topically 2 times a day... Start Date: 12/22/22 Stop Date: 02/20/23 Status: Ordered atorvastatin 80 mg oral tablet 1 tablet, By Mouth, Daily, INSTR:REPLACES SIMVASTATIN, # 90 tablet, 1 Refills, Maintenance, 05/22/23 12:07:00 EST, [facility], 157, cm, 05/06/23 14:23:00 EST, Height, 88.3, kg, 04/16/23 11:33:00EST, Dry Weight Start Date: 05/22/23 Status: Ordered BD Single Use Swab 70% topical pad See Instructions, TO CLEANS BEFORE INJECTIONS 5 X A DAY., # 150 Unknown, 11 Refills, Maintenance, 08/16/22 10:15:00 EDT, [facility], 30, TO CLEANS BEFORE INJECTIONS 5 X A DAY., 157.5, cm, 08/01/22 9:27:00 EDT, Height Start Date: 08/16/22 Status: Ordered busPIRone 5 mg oral tablet 5 mg, 1, tablet, By Mouth, 3 times a day, # 90 tablet, Refills 4, Tot. Refills 4, Maintenance, 09/27/23 7:27:00 EDT, Route to Pharmacy Electronically, [facility]/pharmacy #[id number], Partial fill upon patient request if the prescription is for a schedule II opioi... Start Date: 09/27/23 Stop Date: 02/24/24 Status: Ordered busPIRone 5 mg oral tablet 5 mg, 1, tablet, By Mouth, 2 times a day, for 30 days, # 60 tablet, Refills 4, Tot. Refills 4, HardStop 09/27/23 7:27:00 EDT, 04/30/23 7:27:00 EST, Route to Pharmacy Electronically, [facility]/pharmacy #[id number], Partial fill upon patient request if the prescri... Start Date: 04/30/23 Stop Date: 09/27/23 Status: Ordered capsaicin 0.075% topical cream See Instructions, APPLY TO AFFECTED AREA TWICE A DAY, # 57 Gm, 4 Refills, Maintenance, 04/11/23 10:18:00 EST, [facility], 30, APPLY TO AFFECTED AREA TWICE A [...] Refills, Maintenance, 07/02/23 18:31:00 EDT, [facility], 90, TAKE 1 TABLET BY MOUTH DAILY [...] 16:26:00 EDT, Route to Pharmacy Electronically, [facility]/pharmacy #[id number], Partial fill... Start Date: 08/31/23 Stop Date: 01/28/24 Status: Ordered diclofenac 1% topical gel See Instructions, APPLY TOPICALLY 4 TIMES A DAY NOT TO EXCEED 16 GRAMS/DAY/SINGLE JOINT OF LOWER EXTREMITIES, # 100 Gm, 1 Refills, Maintenance, 12/14/22 6:14:00 EDT, [facility]/pharmacy #[id number], 30, APPLY TOPICALLY 4 TIMES A [...] Refills, Maintenance, 07/03/22 18:20:00 EDT, [facility]/pharmacy #[id number], Duplicate Rx. Original sent 07/03/22 with routing error. Re- sending to pharmacy, 157.5, cm... Start Date: 07/03/22 Status: Ordered esomeprazole 40 mg oral enteric coated capsule 1 capsule = 40 mg, By Mouth, Daily, # 90 capsule, 1 Refills, Maintenance, 03/07/23 13:32:00 EST, [facility]/pharmacy #[id number], Partial fill upon patient request if [...] 0 Refills, Maintenance, 09/20/22 9:36:00 EDT, [facility] STORE 09508, 30, INHALE 1 PUFF BY MOUTH TWICE A DAY, 157.5, cm, 09/05/22 16:22:00 EDT, Height Start Date: 09/20/22 Status: Ordered fluticasone 50 mcg/inh nasal spray See Instructions, SPRAY 1 SPRAY INTO EACH NOSTRIL EVERY DAY, # 16 mL, 5 Refills, Maintenance, 07/05/22 16:20:00 EDT, [facility] STORE 29464, 30, SPRAY 1 SPRAY INTO EACH NOSTRIL [...] tablet, 4 Refills, Maintenance, 03/11/23 15:50:00 EST, [facility] STORE 33130, 157.5, cm, 02/19/23 9:20:00 EST, Height Start [...] mL, 6 Refills, Maintenance, 07/24/23 13:20:00 EDT, [facility], Partial fill upon patient request if the prescription is for a schedule II opioid drug., 157, cm, 07/24/23 12:52:00... Start Date: 07/24/23 Status: Ordered hydrOXYzine hydrochloride 25 mg oral tablet 1 tablet = 25 mg, By Mouth, 2 times a day, as needed for anxiety, # 60 tablet, 4 Refills, Soft Stop, 07/10/23 11:33:00 EDT, Tablet, [facility]/pharmacy #[id number], Partial fill upon patient request if the prescription is for a schedule II opioid drug., 157, cm, 0... Start Date: 07/10/23 Stop Date: 12/07/23 Status: Ordered lactase 3000 u oral tablet 3 tablet, By Mouth, 3 times a day with meals, X30 DAYS., # 120 tablet, 5 Refills, Maintenance, 04/25/23 15:25:00 EST, [facility] STORE 98837, 157, cm, 04/17/23 7:57:00 EST, Height, 88.3, kg, 04/16/23 11:33:00 EST, Dry Weight Start Date: 04/25/23 Status: Ordered Lantus Solostar Pen 100 units/mL subcutaneous solution See Instructions, Take 45 units in the AM and 45 units daily at bedtime. E11.9., # 30 mL, 9 Refills, Maintenance, 07/24/23 13:18:00 EDT, [facility], Partial fill upon [...] Refills, Maintenance, 07/03/22 18:22:00 EDT, [facility]/pharmacy #[id number], 30, Duplicate Rx. Original sent 07/03/22 with routing error. Re-sending to pharmacy, APPLY TO AFFECTED AREA 3 TIMES A... Start Date: 07/03/22 Status: Ordered losartan 50 mg oral tablet See Instructions, TAKE 1 TABLET BY MOUTH EVERY DAY, # 90 tablet, 1 Refills, Maintenance, 03/11/23 15:50:00 EST, [facility] STORE 00658, 157.5, cm, 02/19/23 9:20:00 EST, Height Start Date: 03/11/23 Status: Ordered Lyrica 25 mg oral capsule See Instructions, 1 capsule By Mouth 1 time daily at bedtime. E11.9, # 30 each, 2 Refills, Maintenance, 08/08/23 11:19:00 EDT, Capsule, [facility]/pharmacy #[id number], Partial fill upon patient request if [...] a schedule II opioid drug., 157, cm, 03/25/24 14:54:00 ED... Start Date: 07/09/23 Stop Date: 12/06/23 Status: Ordered Narcan 4 mg/0.1 mL nasal spray = 4 mg, Nares, Both, Once, # 2 each, 2 Refills, Soft Stop, 02/22/23 14:30:00 EST, [facility]/pharmacy #[id number], Partial fill upon patient request if the prescription is for a schedule II opioid drug., 157.5, cm, 02/19/23 9:20:00 EST, Height Start Date: 02/22/23 Status: Ordered [place]-3 Fish Oil 1000 mg oral capsule 1 capsule = 1,000 mg, By Mouth, Daily, # 90 capsule, 1 Refills, Maintenance, 08/01/22 10:17:00 EDT,[facility]/pharmacy #[id number], Partial fill upon patient request if the prescription is for a schedule II opioid drug., 157.5, cm, 08/01/22 9:27:00 EDT, Height Start Date: 08/01/22 Status: Ordered omeprazole 20 mg oral delayed release tablet 1 tablet = 20 mg, By Mouth, 2 times a day, do not crush or chew, # 60 tablet, 2 Refills, Maintenance, 06/14/22 16:40:00 EDT, EC Tablet, [facility]/pharmacy #[id number], Partial fill upon patient request if the prescription is for a schedule II opioid drug., 157.5,... Start Date: 06/14/22 Status: Ordered ondansetron 4 mg oral tablet 1 tablet, By Mouth, Every 8 hours, PRN NEEDED FOR NAUSEA AND VOMITING FOR, # 30 tablet, 2 Refills, Maintenance, 07/03/23 14:40:00 EDT, [facility] STORE 84436, 157, cm, 06/24/23 14:54:00 EDT, Height, 88.3, [...] mL, 11 Refills, Maintenance, 08/23/23 11:17:00 EDT, [facility], Partial fill upon patient request if... Start Date: 08/23/23 Status: Ordered Pen [place], 31 G x 8 mm BD Ultra [...] 9:37:00 EDT, Route to Pharmacy Electronically, [facility]/pharmacy #[id number], Partial fill upon patient request if the prescription is for a schedule II opio... Start Date: 07/09/23 Stop Date: 12/06/23 Status: Ordered field map technician grabber tool field map technician grabber tool, See Instructions, # 1 each, Refills 0, Tot. 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 *Briana Garces, Hands Parter, ICP [phone] Confirmed Active PTSD (post-traumatic stress disorder) Confirmed [...] Name: Rose Mary FISCHER, Sergo Cole Position: [facility] Physician - Primary Care Member Role: PCP Address: Address: [address] [facility] [place] [address]- Name: Lizbeth Collins [place] Position: [facility] Office Staff Member Role: Primary Care Nurse Care Team Related Persons Name: LB HENLEY Address: home [address] [address] Name: LB HENLEY Address: home [address] [place] [address] Name: MILENA CUBA Address: home [address] [facility] [address] [place] [address]
--- OUTSIDE RECORDS SUMMARY | 2024-01-23 14:39 | XMS_ITS | Continuity of Care Document ---
Author Organization [facility] Address [address] [place] [address]- Care Team Providers Care Life Insurance Agent Name Role Phone Sergo Bazzi MD Primary Care Physician En[place] [facility] [place] Date(s): 01/20/22 - 01/27/22 [facility] [address] [place] [address]- Attending Physician: Andrew Mcneil DO Referring Physician: Sergo Bazzi MD Allergies, Adverse Reactions, Alerts Substance Reaction Severity Status morphine ITCH DIARRHEA Active trazodone DEPRESSION Active cortisone Active Ultram nausea, vomit Active Motrin eat lining of stomach Active [...] [01/22/2017] [facility] [id number] 2Admin Note: vis given dated 10/24/12 3Admin Note: vis given dated 10/01/11 4Admin Note: vis 5Admin Note: vis 6Admin Note: vis given: 10/27/2006 7Admin Note: vis given : 10/10/2005 8Admin Note: vis given 2007- Medications acetaminophen 500 mg oral tablet 2 tablet, By Mouth, 4 times a day, PRN NEEDED FOR PAIN, # 100 tablet, 1 Refills, Acute, 219:52:00 EDT, [facility], 157.48, cm, 10/11/20 9:39:00 EDT, Height Start Date: 10/26/20 Status: Ordered Alcohol Pads See Instructions, # 200 each, Refills 11, Tot. Refills 11, Maintenance, To cleans before injections5 x a day., 03/03/21 9:18:00 EST, E11.65, Compound, 157.48, cm, 03/01/21 15:54:00 EST, Height Start Date: 03/03/21 Stop Date: 02/26/22 Status: Ordered Acshn-Pnzcqp-Ojhx 300 mg oral capsule 1 capsule, By Mouth, 2 times a day, NOT COVERED., # 60 capsule, 11 Refills, [facility], 157.48, cm, 01/27/21 9:30:00 EDT, Height Start Date: 01/30/21 Status: Ordered ammonium lactate 12% topical cream 1 application, Topically, 2 times a day, # 385 Gm, 5 Refills, Maintenance, 09/08/21 9:35:00 EDT, Cream, [facility]/pharmacy #[id number], Partial fill upon patient request if the [...] tablet, 11 Refills, Maintenance, 08/19/20 16:26:00 EDT, [facility] STORE 66215, 30, TAKE 1 TABLET BY MOUTH DAILY. [...] 9:17:00 EDT, [id number] Partial fill upon patient request [...] # 16 mL, 5 Refills, 12/29/21 15:10:00 EDT,[facility]/pharmacy #[id number], USE 1 SPRAY IN EACH [...] mL, 9 Refills, Maintenance, 09/20/20 15:10:00 EDT, [facility], NEEDS 30 ML FOR 30 DAY SUPPLY E11.9, 157.48, cm, 05/31/20 9:41:00 EST, Height Start Date: 09/20/20 Status: Ordered lidocaine 5% topical ointment See Instructions, APPLY TO AFFECTED AREA 3 TIMES A DAY, # 35.44 Gm, 11 Refills, [facility] STORE 60931, 30, APPLY TO AFFECTED AREA 3 TIMES [...] Stop 09/16/22 11:02:00 EDT, 01/19/22 11:02:00 EDT, [facility]/pharmacy #[id number], 157.5, cm, 01/09/22 10:18:00 EDT, Height Start Date: 01/19/22 Stop Date: 09/16/22 Status: Ordered Topamax 25 mg oral tablet 3 tablet = 75 mg, By Mouth, Daily at bedtime, # 90 tablet, 6 Refills, Maintenance, 01/19/22 10:34:00 EDT, Tablet, [facility]/pharmacy #[id number], 157.5, cm, 01/09/22 10:18:00 EDT, Height Start Date: 01/19/22 Stop Date: 08/17/22 Status: Ordered Trulicity Pen 3 mg/0.5 mL subcutaneous solution See Instructions, INJECT 0.5ML SUBCUTANEOUSLY EVERY WEEK, ROTATE INJECTION SITES, # 2 mL, 5 Refills, 01/23/22 16:33:00 EDT, [facility], 157.5, cm, 01/20/22 13:38:00 EDT, Height Start Date: 01/23/22 Status: Ordered Vascepa 1 g oral capsule 2 capsule = 2 Gm, By Mouth, 2 times a day, # 360 capsule, 5 Refills, Maintenance, 05/03/20 15:59:00EST, Capsule, [facility]/pharmacy #[id number], 157.48, cm, 03/04/20 14:14:00 EST, [...] for 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 *Briana DiRienzo, Coffee Shop Aide, ICP [phone] Confirmed Active Reflux Confirmed Active Hepatic steatosis [...] oldest [Reference Range]: 1 Height 157.5 cm (01/20/22 1:38 PM) Oxygen Saturation [94-100 %] 97 % (01/20/22 1:38 PM) Pulse Rate [55-90 bpm] 81 bpm (01/20/22 1:38 PM) Blood Pressure [90-138/55-84 mm Hg] 128/ 76mm Hg (01/20/22 1:38 PM) Respiratory Rate [16-30 br/min] 16 br/mi n (01/20/22 1:38 PM) Temperature [96.8-100.4 DegF] 98.3 DegF (01/20/22 1:38 PM) Mode of Delivery (Oxygen) Room air (01/20/22 1:38 PM) Temperature Route Temporal (01/20/22 1:38 PM) Social History Social History Type Response Smoking Status Never smoker entered on: 11/10/13 Sex Female Patient Care team information Personnel Name: Rose Mary FISCHER, Sergo Cole Address: Address: [address] [place] [address] Adult Medicine [place], [place] [address]
--- OUTSIDE RECORDS SUMMARY | 2024-01-23 14:39 | XMS_ITS | Continuity of Care Document ---
Author Organization [facility] Address [address] [place] [address]- Care Team Providers Care Fraud Manager Name Role Phone Sergo Bazzi MD Primary Care Physician Encounter [facility] Date(s): 05/28/23 - 06/27/23 [facility] [address] [place], [place] [address] Allergies, Adverse Reactions, Alerts [...] Comment: [01/22/2017] [facility] [id number] 2Admin Note: vis given dated 10/24/12 3Admin [...] 1 Refills, Acute, 219:52:00 EDT, [facility], 157.48, cm, 10/11/20 9:39:00 EDT, Height Start [...] Date: 03/03/21 Stop Date: 02/26/22 Status: Ordered Niwnx-Iqggoj-Hzyf 300 mg oral capsule 1 capsule, By Mouth, 2 times a day, NOT COVERED., # 60 capsule, 11 Refills, [facility], 157.48, cm, 01/27/21 9:30:00 EDT, Height Start Date: 01/30/21 Status: Ordered ammonium lactate 12% topical cream 1 application, Topically, 2 times a day, # 385 Gm, 1 Refills, Maintenance, 12/22/22 14:16:00 EDT, Cream, [facility]/pharmacy #[id number], Partial fill upon patient request if the prescription is for a schedule IIopioid drug., 1 application Topically 2 times a day... Start Date: 12/22/22 Stop Date: 02/20/23 Status: Ordered atorvastatin 80 mg oral tablet 1 tablet, By Mouth, Daily, INSTR:REPLACES SIMVASTATIN, # 90 tablet, 1 Refills, Maintenance, 05/22/23 12:07:00 EST, [facility] 12[facility], 157, cm, 05/06/23 14:23:00 EST, Height, 88.3, kg, 04/16/23 11:33:00EST, Dry Weight Start Date: 05/22/23 Status: Ordered BD Single Use Swab 70% topical pad See Instructions, TO CLEANS BEFORE INJECTIONS 5 X A DAY., # 150 Unknown, 11 Refills, Maintenance, 08/16/22 10:15:00 EDT, [facility], 30, TO CLEANS BEFORE INJECTIONS 5 X A DAY., 157.5, cm, 08/01/22 9:27:00 EDT, Height Start Date: 08/16/22 Status: Ordered busPIRone 5 mg oral tablet 5 mg, 1, tablet, By Mouth, 2 times a day, # 60 tablet, Refills 4, Tot. Refills 4, Maintenance, 04/30/23 7:27:00 EST, Route to Pharmacy Electronically, [facility]/pharmacy #[id number], Partial fill upon patient request if the prescription is for a schedule II opioi... Start Date: 04/30/23 Stop Date: 09/27/23 Status: Ordered capsaicin 0.075% topical cream See Instructions, APPLY TO AFFECTED AREA TWICE A DAY, # 57 Gm, 4 Refills, Maintenance, 04/11/23 10:18:00 EST, [facility] 0[facility]32, 30, APPLY TO AFFECTED AREA TWICE A [...] tablet, 11 Refills, Maintenance, 07/09/22 10:30:00 EDT, [facility]/pharmacy #[id number], 30, 1 tablet By Mouth [...] Gm, 1 Refills, Maintenance, 12/14/22 6:14:00 EDT, [facility]/pharmacy #[id number], 30, APPLY TOPICALLY 4 TIMES [...] capsule, 5 Refills, Maintenance, 07/03/22 18:20:00 EDT, [facility]/pharmacy #[id number], Duplicate Rx. Original sent 07/03/22 with routing error. Re- sending to pharmacy, 157.5, cm... Start Date: 07/03/22 Status: Ordered esomeprazole 40 mg oral enteric coated capsule 1 capsule = 40 mg, By Mouth, Daily, # 90 capsule, 1 Refills, Maintenance, 03/07/23 13:32:00 EST, [facility]/pharmacy #[id number], Partial fill upon patient request [...] each, 0 Refills, Maintenance, 09/20/22 9:36:00 EDT, [facility] 74807, 30, INHALE 1 PUFF BY MOUTH TWICE A DAY, 157.5, cm, 09/05/22 16:22:00 EDT, Height Start Date: 09/20/22 Status: Ordered fluticasone 50 mcg/inh nasal spray See Instructions, SPRAY 1 SPRAY INTO EACH NOSTRIL EVERY DAY, # 16 mL, 5 Refills, Maintenance, 07/05/22 16:20:00 EDT, [facility] 518[facility], 30, SPRAY 1 SPRAY INTO EACH NOSTRIL [...] Ordered FREESTYLE LANCETS MIS Miscellaneous FREESTYLE LANCETS MIS Miscellaneous, See Instructions, [...] tablet, 4 Refills, Maintenance, 03/11/23 15:50:00 EST, [facility] 45045, 157.5, cm, 02/19/23 9:20:00 EST, Height Start [...] mL, 6 Refills, Maintenance, 11/26/22 14:55:00 EDT, [facility], Partial fill upon patie... Start Date: 11/26/22 Status: Ordered lactase 3000 u oral tablet 3 tablet, By Mouth, 3 times a day with meals, X30 DAYS., # 120 tablet, 5 Refills, Maintenance, 04/25/23 15:25:00 EST, [facility] 20819, 157, cm, 04/17/23 7:57:00 EST, Height, 88.3, kg, 04/16/23 11:33:00 EST, Dry Weight Start Date: 04/25/23 Status: Ordered Lantus Solostar Pen 100 units/mL subcutaneous solution See Instructions, Take 45 units in the AM and 45 units daily at bedtime. E11.9., # 30 mL, 9 Refills, Maintenance, 11/26/22 14:55:00 EDT, [facility], Partial fill upon patient requestif the prescription is for a schedule II opioid lucas... Start Date: 11/26/22 Status: Ordered levothyroxine 0.112 mg oral tablet 1 tablet, By Mouth, Daily, # 30 tablet, 11 Refills, Maintenance, 06/25/23 14:09:00 EDT, [facility]/pharmacy #[id number], 157, cm, 06/24/23 14:54:00 EDT, Height, 88.3, kg, 04/16/23 11:33:00 EST, Dry Weight Start Date: 06/25/23 Status: Ordered lidocaine 5% topical ointment See Instructions, APPLY TO AFFECTED AREA 3 TIMES A DAY, # 35.44 Gm, 11 Refills, Maintenance, 02/28/22 8:51:00 EST, [facility]/pharmacy #[id number], 30, APPLY TO AFFECTED AREA 3 TIMES A DAY, 157.5, cm, 02/21/22 14:36:00 EST, Height Start Date: 02/28/22 Status: Ordered lidocaine 5% topical ointment See Instructions, APPLY TO AFFECTED AREA 3 TIMES A DAY, # 35.44 Gm, 11 Refills, Maintenance, 07/03/22 18:22:00 EDT, [facility]/pharmacy #[id number], 30, Duplicate Rx. Original sent 07/03/22 with routing error. Re-sending to pharmacy, APPLY TO AFFECTED AREA 3 TIMES A... Start Date: 07/03/22 Status: Ordered losartan 50 mg oral tablet See Instructions, TAKE 1 TABLET BY MOUTH EVERY DAY, # 90 tablet, 1 Refills, Maintenance, 03/11/23 15:50:00 EST, [facility] STORE 66660, 157.5, cm, 02/19/23 9:20:00 EST, Height Start [...] EST, Height Start Date: 02/22/23 Status: Ordered [place]-3 Fish Oil 1000 mg oral capsule 1 [...] 05/01/21 Start Date: 06/02/21 Status: Ordered Pen [place], 31 G x 8 mm BD Ultra [...] 12/06/22 13:08:00 EDT, Route to Pharmacy Electronically, [facility]/pharmacy #[id number], Partial fill upon patient request if the prescription is for a schedule II opi... Start Date: 12/06/22 Stop Date: 05/05/23 Status: Ordered retail and promotions coordinator grabber tool retail and promotions coordinator grabber tool, See Instructions, # 1 each, Refills 0, Tot. Refills 0, Maintenance, please dispense one retail and promotions coordinator grabber tool, ICD 10 M54.6, length of use 1 month, 04/12/22 10:13:00 EST, Supply Start Date: 04/12/22 Status: Ordered replacement hospital bed with mattress replacement hospital bed with mattress, See Instructions, # 1 each, Refills 0, Tot. Refills 0, Maintenance, please dispense 1 replacement hospital bed [facility] mattress, DX G89.4, length of use lifetime, 06/20/22 14:20:00 EDT, Supply Start Date: 06/20/22 Status: Ordered topiramate 25 mg oral tablet 3 tablet, By Mouth, Daily at bedtime, # 90 tablet, 10 Refills, Maintenance, 01/17/23 8:54:00 EDT, [facility], 157.5, cm, 12/28/22 15:12:00 EDT, Height Start Date: 01/17/23 Status: Ordered Trulicity Pen 4.5 mg/0.5 mL subcutaneous solution See Instructions, INJECT 4.5 MG SUBCUTANEOUSLY ONCE A WEEK, # 2 mL, 10 Refills, Maintenance, 06/10/23 12:32:00 EDT, [facility], 157, cm, 05/06/23 14:23:00 EST, Height, 88.3, kg, 04/16/23 11:33:00 EST, Dry Weight Start Date: 06/10/23 Status: Ordered valACYclovir 500 mg oral tablet 1, tablet, By Mouth, 2 times a day, PRN, # 6 tablet, Refills 0, Maintenance, NEEDED FOR OUTBREAKS, 05/22/23 12:07:00 EST, Route to Pharmacy Electronically, [facility] 77[facility], 157, cm, 05/06/23 14:23:00 EST, Height, 88.3, [...] each, 0 Refills, Maintenance, 09/17/22 15:25:00 EDT, [facility] 22822, 157.5, cm, 09/05/22 16:22:00 EDT, Height Start [...] 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 *Briana Garces, Automotive Window Tinter, ICP [phone] Confirmed Active PTSD (post-traumatic stress disorder) Confirmed [...] Name: Rose Mary FISCHER, Sergo Cole Position: [facility] Physician - Primary Care Member Role: PCP Address: Address: [address] [facility] [place] [address]- Name: Lizbeth Collins [place] Position: [facility] RN Member Role: Primary Care Nurse Care Team Related Persons Name: LB HENLEY Address: home [address] [place] [address] Name: LB HENLEY Address: home [address] [address] Name: MILENA CUBA Address: home [address] [place] [address]
--- OUTSIDE RECORDS SUMMARY | 2024-01-23 14:39 | XMS_ITS | Continuity of Care Document ---
Author Organization [facility] Address [address] [place] [address]- Care Team Providers Care Filler Wiper Name Role Phone Rose Mary FISCHER, Sergo Cole Primary Care Physician Encounter [facility] Date(s): 05/31/20 - 06/30/20 [facility] [address], [place] [address] Allergies, Adverse Reactions, Alerts Substance [...] 1Result Comment: [01/22/2017] [facility] [id number] 2Admin Note: vis given dated 10/24/12 3Admin [...] mL, 5 Refills, Maintenance, 09/02/19 13:54:00 EDT, [facility], E11.9, 157.48, cm, 04/27/19 [...] tablet, 3 Refills, Maintenance, 02/01/20 15:26:00 EST, [facility]/pharmacy #[id number], 157.48, cm, 01/25/20 15:23:00 EDT, Height Start Date: 02/01/20 Status: Ordered ammonium lactate 12% topical cream 1 application, Topically, 2 times a day, # 385 Gm, 5 Refills, Maintenance, 06/20/20 10:55:00 EDT, Cream, [facility]/pharmacy #[id number], Partial fill upon patient [...] Refills, Maintenance, 06/21/20 17:44:00 EDT, [facility], 157.48, cm, 05/31/20 9:41:00 EST, Height Start Date: 06/21/20 Status: Ordered atorvastatin 80 mg oral tablet 1 tablet = 80 mg, By Mouth, Daily, replaces Simvastatin, # 90 tablet, 4 Refills, Maintenance, 02/23/20 11:05:00 EST, Tablet, [facility]/pharmacy #[id number], replaces simvastatin, 157.48, cm, 01/25/20 15:23:00 EDT, Height Start Date: 02/23/20 Stop Date: 05/18/21 Status: Ordered atorvastatin 80 mg oral tablet 1 tablet = 80 mg, By Mouth, Daily, for 90 days, replaces Simvastatin, # 90 tablet, 4 Refills, Hard Stop 04/01/21 14:01:00 EST, 01/07/20 14:01:00 EDT, Tablet, [facility]/pharmacy #[id number], replaces simvastatin,157.48, cm, 12/29/19 15:55:00 EDT, Height Start Date: 01/07/20 Stop Date: 04/01/21 Status: Ordered BD ultra fine III pen needles [id number] BD ultra fine III pen needles [id number], See Instructions, # 360 each, Refills 3, [...] Stop 07/25/20 15:15:00 EDT, 06/27/20 15:14:00 EDT, [facility]/pharmacy #[id number], 30, APPLY TO AFFECTED [...] 6 Refills, Maintenance, 06/27/20 15:14:00 EDT, Gel, [facility]/pharmacy #[id number], 157.48, cm, 05/31/20 9:41:00 EST, Height [...] 5 Refills, Maintenance, 01/07/20 14:00:00 EDT, Tablet, [facility]/pharmacy #[id number], 157.48, cm, 12/29/19 15:55:00 EDT, Height [...] Gm, 5 Refills, Maintenance, 06/27/20 15:14:00 EDT, [facility]/pharmacy #[id number], 1 sprays Nares, Both Daily,x30 days,Instr:in [...] 3, Maintenance, use up to check blood [id number] per day. 90 DAY SUPPLY, E11.9, 02/29/20 [...] mL, 2 Refills, Maintenance, 04/07/20 16:52:00 EST, [facility], Partial fill upon patient [...] mL, 11 Refills, Maintenance, 09/02/19 13:55:00 EDT, [facility], NEEDS 30 ML FOR [...] DAY, # 35.44 Gm, 11 Refills, Acute, [id number], 30, APPLY TO AFFECTED AREA 3 TIMES A DAY, 157.48, cm, 03/04/20 14:14:00 EST, Height Start Date: 05/10/20 Status: Ordered losartan 50 mg oral tablet 1 tablet, By Mouth, Daily, # 30 tablet, 5 Refills, Maintenance, 06/20/20 9:32:00 EDT, [id number], 157.48, cm, 05/31/20 9:41:00 EST, Height Start Date: 06/20/20 Status: Ordered mirtazapine 15 mg oral tablet TAKE 1 TABLET BY MOUTH EVERY DAY IN THE EVENING Start Date: 10/14/18 Status: Ordered multivitamin Multiple Vitamins oral tablet 1 tablet, By Mouth, Daily, Take it 2 hours separate from Orlistat ([place]), # 90 tablet, 4 Refills, Maintenance, 08/14/19 8:49:00 EDT, Tablet, [facility]/pharmacy #[id number], 1 tablet By Mouth Daily,x90 days,Instr:Take it 2 hours separate from Orlistat ([place]), 157.... Start Date: 08/14/19 Stop Date: 11/06/20 Status: Ordered oxyCODONE 5 mg oral tablet 5 mg, 1, tablet, By Mouth, Every 12 hours, PRN, Refills 0, Tot. Refills 0, Maintenance, as needed for pain, 02/16/19 14:51:00 EST, Partial fill upon patient request Start Date: 02/16/19 Status: Ordered Pen Mobile, 31 G x 8 mm BD Ultra [...] 11/17/20 13:36:00 EDT, 04/21/20 13:36:00 EST, Tablet, [facility]/pharmacy #[id number], 157.48, cm, 03/04/20... Start Date: 04/21/20 [...] 12/08/21 15:26:00 EDT, 12/13/20 15:26:00 EDT, Solution, [facility], E11.65, 157.48, cm, 04/27/19 15:43:00 EST, Height Start Date: 12/13/20 Stop Date: 12/08/21 Status: Ordered Trulicity Pen 1.5 mg/0.5 mL subcutaneous solution 0.5 mL = 1.5 mg, Subcutaneous Injection, Every Saturday, E11.9, # 7.5 mL, 3 Refills, Maintenance, 12/08/21 15:26:00 EDT, Solution, [facility], E11.65, 157.48, cm, 03/04/20 14:14:00 EST, Height Start Date: 12/08/21 Stop Date: 12/03/22 Status: Ordered Trulicity Pen 1.5 mg/0.5 mL subcutaneous solution 0.5 mL = 1.5 mg, Subcutaneous Injection, Every Saturday, for 90 days, # 6.5 mL, 5 Refills, Hard Stop 12/13/20 15:26:00 EDT, 06/22/19 15:26:00 EDT, Solution, [facility]/pharmacy #[id number], E11.65, 157.48, cm, 04/27/19 15:43:00 EST, Height Start Date: 06/22/19 Stop Date: 12/13/20 Status: Ordered valACYclovir 500 mg oral tablet See Instructions, TAKE 1 TABLET BY MOUTH TWICE A DAY FOR 3 DAYS NEEDED FOR OUTBREAK, # 6 tablet,Refills 2, Acute, Instructions Replace Required Details, Route to Pharmacy Electronically, [id number], 157.48, cm, 05/31/20 9:41:00 EST, Height Start Date: 06/27/20 Status: Ordered Vascepa 1 g oral capsule 2 capsule = 2 Gm, By Mouth, 2 times a day, # 360 capsule, 5 Refills, Maintenance, 05/03/20 15:59:00EST, Capsule, [facility]/pharmacy #[id number], 157.48, cm, 03/04/20 14:14:00 [...] Active *Briana Garces, Care Coor dinator, ICP [phone](Confirmed) Active Reflux(Confirmed) Active 92288 -EF 60-65%. No wall motion abnormalities, Does [...]
--- OUTSIDE RECORDS SUMMARY | 2024-01-23 14:40 | XMS_ITS | Continuity of Care Document ---
Author Organization [facility] Address [address] [place] [address]- Care Team Providers Care Shipping Receiving Manager Name Role Phone Sergo Bazzi MD Primary Care Physician [place] [facility] [place] 06[place]05[place]23 - 07/05/23 [facility] [address] [place], [place] [phone] Allergies, Adverse Reactions, Alerts Substance Reaction Severity [...] 8 01/21/08 Given 1Result Comment: [01/22/2017] [facility] [id number] 2Admin Note: vis given dated 10/24/12 3Admin [...] 1 Refills, Acute, 219:52:00 EDT, [facility], 157.48, cm, 10/11/20 9:39:00 EDT, Height Start [...] Date: 03/03/21 Stop Date: 02/26/22 Status: Ordered Chrjj-Dxchrz-Pbdr 300 mg oral capsule 1 capsule, By Mouth, 2 times a day, NOT COVERED., # 60 capsule, 11 Refills, [facility], 157.48, cm, 01/27/21 9:30:00 EDT, Height Start Date: 01/30/21 Status: Ordered ammonium lactate 12% topical cream 1 application, Topically, 2 times a day, # 385 Gm, 1 Refills, Maintenance, 12/22/22 14:16:00 EDT, Cream, [facility]/pharmacy #[id number], Partial fill upon patient request if the prescription is for a schedule IIopioid drug., 1 application Topically 2 times a day... Start Date: 12/22/22 Stop Date: 02/20/23 Status: Ordered atorvastatin 80 mg oral tablet 1 tablet, By Mouth, Daily, INSTR:REPLACES SIMVASTATIN, # 90 tablet, 1 Refills, Maintenance, 05/22/23 12:07:00 EST, [facility], 157, cm, 05/06/23 14:23:00 EST, Height, 88.3, kg, 04/16/23 11:33:00EST, Dry Weight Start Date: 05/22/23 Status: Ordered BD Single Use Swab 70% topical pad See Instructions, TO CLEANS BEFORE INJECTIONS 5 X A DAY., # 150 Unknown, 11 Refills, Maintenance, 08/16/22 10:15:00 EDT, [facility], 30, TO CLEANS BEFORE INJECTIONS 5 X A DAY., 157.5, cm, 08/01/22 9:27:00 EDT, Height Start Date: 08/16/22 Status: Ordered busPIRone 5 mg oral tablet 5 mg, 1, tablet, By Mouth, 2 times a day, # 60 tablet, Refills 4, Tot. Refills 4, Maintenance, 04/30/23 7:27:00 EST, Route to Pharmacy Electronically, [facility]/pharmacy #[id number], Partial fill upon patient request if the prescription is for a schedule II opioi... Start Date: 04/30/23 Stop Date: 09/27/23 Status: Ordered capsaicin 0.075% topical cream See Instructions, APPLY TO AFFECTED AREA TWICE A DAY, # 57 Gm, 4 Refills, Maintenance, 04/11/23 10:18:00 EST, [facility], 30, APPLY TO AFFECTED AREA TWICE A [...] tablet, 1 Refills, Maintenance, 07/02/23 18:31:00 EDT, [facility] 97[facility], 90, TAKE 1 TABLET BY MOUTH DAILY [...] 07/02/23 16:26:00 EDT, Route to Pharmacy Electronically, [facility]/pharmacy #[id number], Partial fill... Start Date: 07/02/23 Stop Date: 08/31/23 Status: Ordered diclofenac 1% topical gel See Instructions, APPLY TOPICALLY 4 TIMES A DAY NOT TO EXCEED 16 GRAMS/DAY/SINGLE JOINT OF LOWER EXTREMITIES, # 100 Gm, 1 Refills, Maintenance, 12/14/22 6:14:00 EDT, [facility]/pharmacy #[id number], 30, APPLY TOPICALLY 4 [...] Maintenance, 07/03/22 18:20:00 EDT, [facility]/pharmacy #[id number], Duplicate Rx. Original sent 07/03/22 with routing error. Re- sending to pharmacy, 157.5, cm... Start Date: 07/03/22 Status: Ordered esomeprazole 40 mg oral enteric coated capsule 1 capsule = 40 mg, By Mouth, Daily, # 90 capsule, 1 Refills, Maintenance, 03/07/23 13:32:00 EST, [facility]/pharmacy #[id number], Partial fill upon patient [...] each, 0 Refills, Maintenance, 09/20/22 9:36:00 EDT, [facility], 30, INHALE 1 PUFF BY MOUTH TWICE A DAY, 157.5, cm, 09/05/22 16:22:00 EDT, Height Start Date: 09/20/22 Status: Ordered fluticasone 50 mcg/inh nasal spray See Instructions, SPRAY 1 SPRAY INTO EACH NOSTRIL EVERY DAY, # 16 mL, 5 Refills, Maintenance, 07/05/22 16:20:00 EDT, [facility], 30, SPRAY 1 SPRAY INTO EACH NOSTRIL [...] Date: 06/19/22 Stop Date: 03/16/23 Status: Ordered FREESTYLE LITE TEST STRP Strip [...] tablet, 4 Refills, Maintenance, 03/11/23 15:50:00 EST, [facility], 157.5, cm, 02/19/23 9:20:00 EST, Height Start [...] mL, 6 Refills, Maintenance, 11/26/22 14:55:00 EDT, [facility], Partial fill upon patie... Start Date: 11/26/22 Status: Ordered hydrOXYzine hydrochloride 25 mg oral tablet 1 tablet = 25 mg, By Mouth, 2 times a day, as needed for anxiety, # 14 tablet, 0 Refills, Soft Stop, 07/03/23 11:33:00 EDT, Tablet, [facility]/pharmacy #[id number], Partial fill upon patient request if the prescription is for a schedule II opioid drug., 157, cm, 0... Start Date: 07/03/23 Stop Date: 07/10/23 Status: Ordered lactase 3000 u oral tablet 3 tablet, By Mouth, 3 times a day with meals, X30 DAYS., # 120 tablet, 5 Refills, Maintenance, 04/25/23 15:25:00 EST, [facility], 157, cm, 04/17/23 7:57:00 EST, Height, 88.3, kg, 04/16/23 11:33:00 EST, Dry Weight Start Date: 04/25/23 Status: Ordered Lantus Solostar Pen 100 units/mL subcutaneous solution See Instructions, Take 45 units in the AM and 45 units daily at bedtime. E11.9., # 30 mL, 9 Refills, Maintenance, 11/26/22 14:55:00 EDT, [facility], Partial fill upon patient requestif the prescription is for a schedule II opioid lucas... Start Date: 11/26/22 Status: Ordered levothyroxine 0.112 mg oral tablet 1 tablet, By Mouth, Daily, # 30 tablet, 11 Refills, Maintenance, 06/25/23 14:09:00 EDT, [facility]/pharmacy #[id number], 157, cm, 06/24/23 14:54:00 EDT, Height, 88.3, kg, 04/16/23 11:33:00 EST, Dry Weight Start Date: 06/25/23 Status: Ordered lidocaine 5% topical ointment See Instructions, APPLY TO AFFECTED AREA 3 TIMES A DAY, # 35.44 Gm, 11 Refills, Maintenance, 02/28/22 8:51:00 EST, [facility]/pharmacy #[id number], 30, APPLY TO AFFECTED AREA 3 TIMES A DAY, 157.5, cm, 02/21/22 14:36:00 EST, Height Start Date: 02/28/22 Status: Ordered lidocaine 5% topical ointment See Instructions, APPLY TO AFFECTED AREA 3 TIMES A DAY, # 35.44 Gm, 11 Refills, Maintenance, 07/03/22 18:22:00 EDT, [facility]/pharmacy #[id number], 30, Duplicate Rx. Original sent 07/03/22 with routing error. Re-sending to pharmacy, APPLY TO AFFECTED AREA 3 TIMES A... Start Date: 07/03/22 Status: Ordered losartan 50 mg oral tablet See Instructions, TAKE 1 TABLET BY MOUTH EVERY DAY, # 90 tablet, 1 Refills, Maintenance, 03/11/23 15:50:00 EST, [facility], 157.5, cm, 02/19/23 9:20:00 EST, Height Start Date: 03/11/23 Status: Ordered Lyrica 25 mg oral capsule See Instructions, 1 capsule By Mouth 1 time daily at bedtime. E11.9, # 30 each, 5 Refills, Maintenance, 01/21/23 15:40:00 EDT, Capsule, [facility]/pharmacy #[id number], Partial fill upon patient [...] 2 Refills, Soft Stop, 02/22/23 14:30:00 EST, [facility]/pharmacy #[id number], Partial fill upon patient request if the prescription is for a schedule II opioid drug., 157.5, cm, 02/19/23 9:20:00 EST, Height Start Date: 02/22/23 Status: Ordered [place]-3 Fish Oil 1000 mg oral capsule 1 capsule = 1,000 mg, By Mouth, Daily, # 90 capsule, 1 Refills, Maintenance, 08/01/22 10:17:00 EDT,[facility]/pharmacy #[id number], Partial fill upon patient [...] 16:40:00 EDT, EC Tablet, [facility]/pharmacy #[id number], Partial fill upon patient request if the prescription is for a schedule II opioid drug., 157.5,... Start Date: 06/14/22 Status: Ordered ondansetron 4 mg oral tablet 1 tablet, By Mouth, Every 8 hours, PRN NEEDED FOR NAUSEA AND VOMITING FOR, # 30 tablet, 2 Refills, Maintenance, 07/03/23 14:40:00 EDT, [facility] ST[facility], 157, cm, 06/24/23 14:54:00 EDT, Height, 88.3, kg, 04/16/23 11:33:00 EST, Dry Weight Start Date: 07/03/23 Stop Date: 07/13/23 Status: Ordered oxyCODONE 10 mg oral tablet TAKE 1/2 TAB EVERY 12 HOURS NEEDED FOR SEVERE NECK/LOW BACK PAIN. DO NOT FILL UNTIL 05/01/21 Start Date: 06/02/21 Status: Ordered Pen [place], 31 G x 8 mm BD Ultra [...] 12/06/22 13:08:00 EDT, Route to Pharmacy Electronically, [facility]/pharmacy #[id number], Partial fill upon patient request if the prescription is for a schedule II opi... Start Date: 12/06/22 Stop Date: 05/05/23 Status: Ordered child day care provider grabber tool child day care provider grabber tool, See Instructions, # 1 each, Refills 0, Tot. Refills 0, Maintenance, please dispense one child day care provider grabber tool, ICD 10 M54.6, length of use 1 month, 04/12/22 10:13:00 EST, Supply Start Date: 04/12/22 Status: Ordered replacement hospital bed with mattress replacement hospital bed with mattress, See Instructions, # 1 each, Refills 0, Tot. Refills 0, Maintenance, please dispense 1 replacement hospital bed [facility] mattress, DX G89.4, length of use lifetime, 06/20/22 14:20:00 EDT, Supply Start Date: 06/20/22 Status: Ordered topiramate 25 mg oral tablet 3 tablet, By Mouth, Daily at bedtime, # 90 tablet, 10 Refills, Maintenance, 01/17/23 8:54:00 EDT, [facility], 157.5, cm, 12/28/22 15:12:00 EDT, Height Start Date: 01/17/23 Status: Ordered Trulicity Pen 4.5 mg/0.5 mL subcutaneous solution See Instructions, INJECT 4.5 MG SUBCUTANEOUSLY ONCE A WEEK, # 2 mL, 10 Refills, Maintenance, 06/10/23 12:32:00 EDT, [facility], 157, cm, 05/06/23 14:23:00 EST, Height, 88.3, kg, 04/16/23 11:33:00 EST, Dry Weight Start Date: 06/10/23 Status: Ordered valACYclovir 500 mg oral tablet 1, tablet, By Mouth, 2 times a day, PRN, # 6 tablet, Refills 0, Maintenance, NEEDED FOR OUTBREAKS, 05/22/23 12:07:00 EST, Route to Pharmacy Electronically, [facility], 157, cm, 05/06/23 14:23:00 EST, Height, 88.3, kg, 04/16/23 11:33:00 EST, . 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
--- OUTSIDE RECORDS SUMMARY | 2024-01-23 14:40 | XMS_ITS | Continuity of Care Document ---
Author Organization [facility] Address [address] [place] [address]- Care Team Providers Care Forest Practices Field Coordinator Name Role Phone Rose Mary FISCHER, Sergo Cole Primary Care Physician [phone] Encounter [facility] [place](s): 03/08/20 - 04/07/20 [facility] [address] [place], [place] [address] Allergies, Adverse Reactions, Alerts Substance [...] (oldterm) 8 01/21/08 Given 1Result Comment: [01/22/2017] [facility] [id number] 2Admin Note: vis given dated 10/24/12 3Admin [...] mL, 5 Refills, Maintenance, 09/02/19 13:54:00 EDT, [facility], E11.9, 157.48, cm, 04/27/19 [...] 3 Refills, Maintenance, 02/01/20 15:26:00 EST, [facility]/pharmacy #[id number], 157.48, cm, 01/25/20 15:23:00 EDT, [...] 5 Refills, Maintenance, 12/21/19 17:01:00 EDT, [facility]/pharmacy#4471, 157.48, cm, 04/27/19 15:43:00 EST, Height Start Date: 12/21/19 Status: Ordered atorvastatin 80 mg oral tablet 1 tablet = 80 mg, By Mouth, Daily, replaces Simvastatin, # 90 tablet, 4 Refills, Maintenance, 02/23/20 11:05:00 EST, Tablet, [facility]/pharmacy #[id number], replaces simvastatin, 157.48, cm, 01/25/20 15:23:00 EDT, Height Start Date: 02/23/20 Stop Date: 05/18/21 Status: Ordered atorvastatin 80 mg oral tablet 1 tablet = 80 mg, By Mouth, Daily, for 90 days, replaces Simvastatin, # 90 tablet, 4 Refills, Hard Stop 04/01/21 14:01:00 EST, 01/07/20 14:01:00 EDT, Tablet, [facility]/pharmacy #[id number], replaces simvastatin,157.48, cm, 12/29/19 15:55:00 EDT, Height Start Date: 01/07/20 Stop Date: 04/01/21 Status: Ordered BD ultra fine III pen needles [id number] BD ultra fine III pen needles 21Ym3mm, See Instructions, # 360 each, Refills 3, [...] 60 Gm, 4 Refills, Acute, [facility], 30, APPLY TO AFFECTED AREA TWICE A [...] Refills, Maintenance, 12/24/19 9:18:00 EDT, Gel, [facility]/pharmacy #[id number], 157.48, cm, 04/27/19 15:43:00 EST, [...] Refills, Maintenance, 01/07/20 14:00:00 EDT, Tablet, [facility]/pharmacy #[id number], 157.48, cm, 12/29/19 15:55:00 EDT, [...] 3, Maintenance, use up to check blood [id number] per day. 90 DAY SUPPLY, E11.9, 02/29/20 [...] mL, 2 Refills, Maintenance, 04/07/20 16:52:00 EST, [facility], Partial fill upon patient [...] mL, 11 Refills, Maintenance, 09/02/19 13:55:00 EDT, [facility], NEEDS 30 ML FOR [...] Refills, Maintenance, 05/15/19 15:00:00 EST, Ointment, [facility]/pharmacy #[id number], 1 application Topically 3 times a day,x30 days, 157.48, cm, 04/27/19 15:43:00 EST, Height Start Date: 05/15/19 Stop Date: 05/09/20 Status: Ordered losartan 50 mg oral tablet 50 mg, 1, tablet, By Mouth, Daily, can substitute 25mg tabs x2 if needed, # 30 tablet, Refills 5, Tot. Refills 5, Maintenance, 01/11/20 11:21:00 EDT, Route to Pharmacy Electronically, [facility]/pharmacy #[id number], 157.48, cm, 12/29/19 15:55:00 EDT, [...] Refills, Maintenance, 08/14/19 8:49:00 EDT, Tablet, [facility]/pharmacy #[id number], 1 tablet By Mouth Daily,x90 days,Instr:Take it 2 hours separate from Orlistat ([place]), 157.... Start Date: 08/14/19 Stop Date: 11/06/20 Status: Ordered oxyCODONE 5 mg oral tablet 5 mg, 1, tablet, By Mouth, Every 12 hours, PRN, Refills 0, Tot. Refills 0, Maintenance, as needed for pain, 02/16/19 14:51:00 EST, Partial fill upon patient request Start Date: 02/16/19 Status: Ordered Pen [place], 31 G x 8 mm BD Ultra [...] 11:05:00 EST, 02/23/20 11:05:00 EST, Tablet, [facility]/pharmacy #[id number], 157.48, cm, 01/25/20... Start Date: [...] 12/08/21 15:26:00 EDT, 12/13/20 15:26:00 EDT, Solution, [facility], E11.65, 157.48, cm, 04/27/19 15:43:00 EST, Height Start Date: 12/13/20 Stop Date: 12/08/21 Status: Ordered Trulicity Pen 1.5 mg/0.5 mL subcutaneous solution 0.5 mL = 1.5 mg, Subcutaneous Injection, Every Saturday, E11.9, # 7.5 mL, 3 Refills, Maintenance, 12/08/21 15:26:00 EDT, Solution, [facility], E11.65, 157.48, cm, 03/04/20 14:14:00 EST, Height Start Date: 12/08/21 Stop Date: 12/03/22 Status: Ordered Trulicity Pen 1.5 mg/0.5 mL subcutaneous solution 0.5 mL = 1.5 mg, Subcutaneous Injection, Every Saturday, for 90 days, # 6.5 mL, 5 Refills, Hard Stop 12/13/20 15:26:00 EDT, 06/22/19 15:26:00 EDT, Solution, [facility]/pharmacy #[id number], E11.65, 157.48, cm, 04/27/19 15:43:00 [...] 02/20/10 Active *Rosemarie Mcmillan Coor dinator, ICP [phone](Confirmed) Active Reflux(Confirmed) Active -EF 60-65%. No wall motion abnormalities, [...]
--- OUTSIDE RECORDS SUMMARY | 2024-01-23 14:40 | XMS_ITS | Continuity of Care Document ---
Author Organization [facility] Address [address] [facility], [address] d Floor, [address] [place] [id number]- Care Team Providers Care Jewelry Appraiser Name Role Phone Rose Mary FISCHER, Sergo Cole Primary Care Physician Encounter [facility] [place] Date(s): 11/27/22 - 12/04/22 [facility] [address], 3[address] Floor, [address] [place] [address] Attending Physician: Not on Staff, [...] 01/21/08 Given 1Result Comment: [01/22/2017] [facility] [id number] 2Admin Note: vis given dated 10/24/12 3Admin [...] 100 tablet, 1 Refills, Acute, 219:52:00 EDT, [id number], 157.48, cm, 10/11/20 9:39:00 EDT, Height Start Date: 10/26/20 Status: Ordered Alcohol Pads See Instructions, # 200 each, Refills 11, Tot. Refills 11, Maintenance, To cleans before injections5 x a day., 03/03/21 9:18:00 EST, E11.65, Compound, 157.48, cm, 03/01/21 15:54:00 EST, Height Start Date: 03/03/21 Stop Date: 02/26/22 Status: Ordered Onujj-Akpwfi-Paxw 300 mg oral capsule 1 capsule, By Mouth, 2 times a day, NOT COVERED., # 60 capsule, 11 Refills, [facility], 157.48, cm, 01/27/21 9:30:00 EDT, Height Start Date: 01/30/21 Status: Ordered ammonium lactate 12% topical cream 1 application, Topically, 2 times a day, # 385 Gm, 3 Refills, Maintenance, 08/24/22 14:16:00 EDT, Cream, [facility]/pharmacy #[id number], Partial fill upon patient request if the prescription is for a schedule IIopioid drug., 1 application Topically 2 times a day... Start Date: 08/24/22 Stop Date: 12/22/22 Status: Ordered atorvastatin 80 mg oral tablet 1 tablet = 80 mg, By Mouth, Daily, replaces Simvastatin, # 90 tablet, 4 Refills, Maintenance, 08/26/22 14:22:00 EDT, Tablet, [facility]/pharmacy #[id number], replaces simvastatin, 157.5, cm, 11/29/21 15:59:00 EDT, Height Start Date: 08/26/22 Stop Date: 11/19/23 Status: Ordered BD Single Use Swab 70% topical pad See Instructions, TO CLEANS BEFORE INJECTIONS 5 X A DAY., # 150 Unknown, 11 Refills, Maintenance, 08/16/22 10:15:00 EDT, [facility], 30, TO CLEANS BEFORE INJECTIONS 5 X A DAY., 157.5, cm, 08/01/22 9:27:00 EDT, Height Start Date: 08/16/22 Status: Ordered capsaicin 0.075% topical cream See Instructions, APPLY TO AFFECTED AREA TWICE A DAY, # 57 Gm, 4 Refills, Maintenance, 08/24/22 14:16:00 EDT, [facility]/pharmacy #[id number], 30, APPLY TO AFFECTED AREA [...] 11 Refills, Maintenance, 07/09/22 10:30:00 EDT, [facility]/pharmacy #[id number], 30, 1 tablet By Mouth [...] Required Details, Route to Pharmacy Electronically, [facility]/pharmacy... Start Date: 08/30/22 Status: Ordered diclofenac 1% topical gel See Instructions, APPLY TOPICALLY 4 TIMES A DAY NOT TO EXCEED 16 GRAMS/DAY/SINGLE JOINT OF LOWER EXTREMITIES, # 100 Gm, 6 Refills, Maintenance, 08/24/22 14:16:00 EDT, [facility]/pharmacy #[id number], 30, APPLY TOPICALLY 4 TIMES A DAY NOT TO EXCEED 16 GRAMS/DAY/SIN... Start Date: 08/24/22 Status: Ordered docusate sodium 100 mg oral capsule See Instructions, TAKE 1 CAPSULE BY MOUTH TWICE A DAY NEEDED FOR CONSTIPATION, # 60 capsule, 5 Refills, Maintenance, 07/03/22 18:20:00 EDT, [facility]/pharmacy #[id number], Duplicate Rx. Original sent 07/03/22 with routing error. Re- sending to pharmacy, 157.5, cm... Start Date: 07/03/22 Status: Ordered docusate sodium 100 mg oral capsule 100 mg, 1, capsule, By Mouth, 2 times a day, PRN, # 60 capsule, Refills 5, Tot. Refills 5, Maintenance, as needed for constipation, 06/12/22 9:52:00 EDT, Route to Pharmacy Electronically, [facility]/pharmacy #[id number], Partial fill upon patient request [...] Refills, Maintenance, 09/20/22 9:36:00 EDT, [facility], 30, INHALE 1 PUFF BY MOUTH TWICE A DAY, 157.5, cm, 09/05/22 16:22:00 EDT, Height Start Date: 09/20/22 Status: Ordered fluticasone 50 mcg/inh nasal spray See Instructions, SPRAY 1 SPRAY INTO EACH NOSTRIL EVERY DAY, # 16 mL, 5 Refills, Maintenance, 07/05/22 16:20:00 EDT, [facility] 43266, 30, SPRAY 1 SPRAY INTO EACH NOSTRIL [...] mL, 6 Refills, Maintenance, 11/26/22 14:55:00 EDT, [facility], Partial fill upon patie... Start Date: 11/26/22 Status: Ordered Lactaid 3000 units oral tablet 3 tablet = 9,000 units, By Mouth, 3 times a day with meals, # 120 tablet, 5 Refills, Maintenance, 08/17/22 9:03:00 EDT, Tablet, [facility]/pharmacy #[id number], Partial fill upon patient request if the prescription is for a schedule II opioid drug., 157.5, cm, ... Start Date: 08/17/22 Stop Date: 02/13/23 Status: Ordered Lantus Solostar Pen 100 units/mL subcutaneous solution See Instructions, Take 45 units in the AM and 45 units daily at bedtime. E11.9., # 30 mL, 9 Refills, Maintenance, 11/26/22 14:55:00 EDT, [facility], Partial fill upon patient requestif the [...] 11 Refills, Maintenance, 07/03/22 18:22:00 EDT, [facility]/pharmacy #[id number], 30, Duplicate Rx. Original sent 07/03/22 with routing error. Re-sending to pharmacy, APPLY TO AFFECTED AREA 3 TIMES A... Start Date: 07/03/22 Status: Ordered losartan 50 mg oral tablet 1 tablet, By Mouth, Daily, # 90 tablet, 1 Refills, Maintenance, 07/11/22 15:04:00 EDT, [facility]/pharmacy#[id number], 157.5, cm, 06/21/22 8:43:00 EDT, Height Start Date: 07/11/22 Status: Ordered Lyrica 25 mg oral capsule See Instructions, 1 capsule By Mouth 1 time daily at bedtime. E11.9, # 30 each, 5 Refills, Maintenance, 05/01/22 18:04:00 EST, Capsule, [facility]/pharmacy #[id number], Partial fill upon patient request if the prescription is for a schedule II opioid drug., 157.5,... Start Date: 05/01/22 Status: Ordered mirtazapine 15 mg oral tablet 1 tablet = 15 mg, By Mouth, Daily at bedtime, # 30 tablet, 4 Refills, Maintenance, 05/02/22 14:02:00 EST, Tablet, [facility]/pharmacy #[id number], Partial fill upon patient request if the prescription is for a schedule II opioid drug., 157.5, cm, 04/11/22 10:50:00... Start Date: 05/02/22 Stop Date: 09/29/22 Status: Ordered Nexium 40 mg oral enteric coated capsule 1 capsule = 40 mg, By Mouth, Daily, BRNAD NAME ONLY, # 90 capsule, 0 Refills, Maintenance, 10/18/2313:25:00 EDT, [facility]/pharmacy #[id number], Partial fill upon patient request if the prescription is for a schedule II opioid drug., 157.5, cm, 10/08/22 18:20:00... Start Date: 10/18/22 Stop Date: 01/16/23 Status: Ordered Hedley-3 Fish Oil 1000 mg oral capsule 1 capsule = 1,000 mg, By Mouth, Daily, # 90 capsule, 1 Refills, Maintenance, 08/01/22 10:17:00 EDT,[facility]/pharmacy #[id number], Partial fill upon patient request if the prescription is for a schedule II opioid drug., 157.5, cm, 08/01/22 9:27:00 EDT, Height Start Date: 08/01/22 Status: Ordered omeprazole 20 mg oral delayed release tablet 1 tablet = 20 mg, By Mouth, 2 times a day, do not crush or chew, # 60 tablet, 2 Refills, Maintenance, 06/14/22 16:40:00 EDT, EC Tablet, [facility]/pharmacy #[id number], Partial fill upon patient request if the prescription is for a schedule II opioid drug., 157.5,... Start Date: 06/14/22 Status: Ordered oxyCODONE 10 mg oral tablet TAKE 1/2 TAB EVERY 12 HOURS NEEDED FOR SEVERE NECK/LOW BACK PAIN. DO NOT FILL UNTIL 05/01/21 Start Date: 06/02/21 Status: Ordered Pen Whiting, 31 G x 8 mm BD Ultra [...] 13:31:00 EDT, Route to Pharmacy Electronically, [facility]/pharmacy #[id number], Partial fill upon patient request if the prescription is for a schedule II opi... Start Date: 08/30/22 Stop Date: 01/27/23 Status: Ordered last trimmer grabber tool last trimmer grabber tool, See Instructions, # 1 each, Refills 0, Tot. Refills 0, Maintenance, please dispense one last trimmer grabber tool, ICD 10 M54.6, length of [...] EDT, 08/24/22 14:16:00 EDT, Chew Tablet, [facility]/pharmacy #[id number], Partial fill upon patient request [...] 12/15/22 14:36:00 EDT, 04/19/22 14:36:00 EST, [facility]/pharmacy #[id number], 157.5, cm, 04/11/22 10:50:00 EST, Height Start Date: 04/19/22 Stop Date: 12/15/22 Status: Ordered Topamax 25 mg oral tablet 3 tablet = 75 mg, By Mouth, Daily at bedtime, # 90 tablet, 6 Refills, Maintenance, 06/26/22 10:14:00 EDT, Tablet, [facility], 157.5, cm, 06/21/22 8:43:00 EDT, Height Start Date: 06/26/22 Stop Date: 01/22/23 Status: Ordered Trulicity Pen 4.5 mg/0.5 mL subcutaneous solution See Instructions, INJECT 4.5 MG SUBCUTANEOUSLY ONCE A WEEK, # 2 mL, 5 Refills, Maintenance, 11/21/22 8:33:00 EDT, [facility], 157.5, cm, 11/16/22 13:50:00 EDT, Height Start Date: 11/21/22 Status: Ordered valACYclovir 500 mg oral tablet 1, tablet, By Mouth, 2 times a day, PRN, # 6 tablet, Refills 2, Maintenance, NEEDED FOR OUTBREAKS, 07/11/22 16:11:00 EDT, Route to Pharmacy Electronically, [facility], 157.5, cm, 06/21/22 8:43:00 EDT, Height Start Date: 07/11/22 Stop Date: 07/14/22 Status: Ordered Vascepa 1 g oral capsule 2 capsule = 2 Gm, By Mouth, 2 times a day, # 360 capsule, 5 Refills, Maintenance, 05/03/20 15:59:00EST, Capsule, [facility]/pharmacy #[id number], 157.48, cm, 03/04/20 14:14:00 EST, Height Start Date: 05/03/20 Status: Ordered Ventolin HFA 108 mcg/inh inhalation aerosol with adapter 1 puffs, Inhalation, 4 times a day, PRN NEEDED FOR WHEEZING, # 18 each, 0 Refills, Maintenance, 09/17/22 15:25:00 EDT, [facility], 157.5, cm, 09/05/22 16:22:00 EDT, Height Start [...] 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 *Briana Garces, Building Carpenter Helper, ICP [phone] Confirmed Active PTSD (post-traumatic stress disorder) Confirmed [...] Cole Position: [facility] Physician - Primary Care Member Role: PCP Address: Address: [address] [facility] [place] [address]- Name: Lizbeth Collins [place] Position: [facility] RN Member Role: Primary Care Nurse Care Team Related Persons Name: LB HENLEY Address: home [address] [address] Name: LB HENLEY Address: [address] [place] [address] Name: MILENA CUBA Address: home [address] [facility] [address] [place] [address]
--- OUTSIDE RECORDS SUMMARY | 2024-01-23 14:40 | XMS_ITS | Continuity of Care Document ---
Author Organization [facility] Address [address] [place] [address]- Care Team Providers Care Aquatic Instructor Name Role Phone Sergo Bazzi MD Primary Care Physician Encounter [facility] Date(s): 09/25/23 - 10/25/23 [facility] [address] [place] [address]- Attending Physician: Broderick Washburn Admitting Physician: AdmBroderick enriquez Referring Physician: Admtr, Ar8 Allergies, Adverse Reactions, Alerts Substance Reaction Severity Status morphine ITCH DIARRHEA Active Motrin eat lining of stomach Active Vioxx heart problems Active trazodone DEPRESSION Active cortisone Active Naprosyn [...] (oldterm) 8 01/21/08 Given 1Result Comment: [01/22/2017] [facility] [id number] 2Admin Note: vis given dated 10/24/12 3Admin [...] 100 tablet, 1 Refills, Acute, 219:52:00 EDT, [facility], 157.48, cm, 10/11/20 9:39:00 EDT, Height Start [...] To cleans before injections5 x a day., 10/17/23 13:55:00 EDT, E11.65, Compound, 157, cm, 10/12/23 11:14:00 EDT, Height, 84, kg, 07/24/23 12:52:00 EDT, Dry Weight Start Date: 10/17/23 Stop Date: 10/11/24 Status: Ordered Edttk-Epgnjm-Sehv 300 mg oral capsule 1 capsule, By Mouth, 2 times a day, NOT COVERED., # 60 capsule, 11 Refills, [facility] 60633, 157.48, cm, 01/27/21 9:30:00 EDT, Height Start Date: 01/30/21 Status: Ordered ammonium lactate 12% topical cream 1 application, Topically, 2 times a day, # 385 Gm, 1 Refills, Maintenance, 12/22/22 14:16:00 EDT, Cream, [facility]/pharmacy #[id number], Partial fill upon patient request if the prescription is for a schedule IIopioid drug., 1 application Topically 2 times a day... Start Date: 12/22/22 Stop Date: 02/20/23 Status: Ordered Artificial Tears preserved solution 1 drops, Eyes, Both, 2 times a day, PRN for dry eyes, # 15 mL, 0 Refills, Maintenance, 09/10/23 8:57:00 EDT, Solution, [facility]/pharmacy #[id number], Partial fill upon patient request if the prescription is fora schedule II opioid drug., 1 drops Eyes, Both 2 ti... Start Date: 09/10/23 Status: Ordered atorvastatin 80 mg oral tablet 1 tablet, By Mouth, Daily, INSTR:REPLACES SIMVASTATIN, # 90 tablet, 1 Refills, Maintenance, 05/22/23 12:07:00 EST, [facility], 157, cm, 05/06/23 14:23:00 EST, Height, 88.3, [...] 10:46:00 EDT, Route to Pharmacy Electronically, [facility]/pharmacy #[id number], Partial fill upon patient request if the prescription is for a schedule II opio... Start Date: 09/10/23 Stop Date: 02/07/24 Status: Ordered capsaicin 0.075% topical cream See Instructions, APPLY TO AFFECTED AREA TWICE A DAY, # 57 Gm, 4 Refills, Maintenance, 04/11/23 10:18:00 EST, [facility] 12015, 30, APPLY TO AFFECTED AREA TWICE A [...] Refills, Maintenance, 07/02/23 18:31:00 EDT, [facility], 90, TAKE 1 TABLET BY MOUTH DAILY [...] 10:46:00 EDT, Route to Pharmacy Electronically, [facility]/pharmacy #[id number], Partial fill... Start Date: 09/10/23 Stop Date: 02/07/24 Status: Ordered diclofenac 1% topical gel See Instructions, APPLY TOPICALLY 4 TIMES A DAY NOT TO EXCEED 16 GRAMS/DAY/SINGLE JOINT OF LOWER EXTREMITIES, # 100 Gm, 4 Refills, Maintenance, 09/10/23 8:56:00 EDT, [facility]/pharmacy [...] capsule, 3 Refills, Maintenance, 09/25/23 16:33:00 EDT, [facility]/pharmacy #[id number], Partial fill upon patient request if the prescription is for a schedule II opioid drug., 157, cm, 09/25/23 16:26:00 EDT, Height, 84, k... Start Date: 09/25/23 Status: Ordered esomeprazole 40 mg oral enteric coated capsule 1 capsule = 40 mg, By Mouth, Daily, # 90 capsule, 1 Refills, Maintenance, 09/02/23 16:20:00 EDT, [facility]/pharmacy [...] each, 0 Refills, Maintenance, 09/20/22 9:36:00 EDT, [facility], 30, INHALE 1 PUFF BY MOUTH TWICE A DAY, 157.5, cm, 09/05/22 16:22:00 EDT, Height Start Date: 09/20/22 Status: Ordered fluticasone 50 mcg/inh nasal spray See Instructions, SPRAY 1 SPRAY INTO EACH NOSTRIL EVERY DAY, # 16 mL, 5 Refills, Maintenance, 07/05/22 16:20:00 EDT, [facility], 30, SPRAY 1 SPRAY INTO EACH NOSTRIL [...] tablet, 4 Refills, Maintenance, 03/11/23 15:50:00 EST, [facility], 157.5, cm, 02/19/23 9:20:00 EST, Height Start [...] mL, 6 Refills, Maintenance, 07/24/23 13:20:00 EDT, [facility], Partial fill upon patient request if the prescription is for a schedule II opioid drug., 157, cm, 07/24/23 12:52:00... Start Date: 07/24/23 Status: Ordered hydrOXYzine hydrochloride 25 mg oral tablet 1 tablet = 25 mg, By Mouth, 2 times a day, as needed for anxiety, # 60 tablet, 4 Refills, Soft Stop, 09/10/23 10:47:00 EDT, Tablet, [facility]/pharmacy #[id number], Partial fill upon patient request if the prescription is for a schedule II opioid drug., 157, cm, 0... Start Date: 09/10/23 Stop Date: 02/07/24 Status: Ordered lactase 3000 u oral tablet 3 tablet, By Mouth, 3 times a day with meals, X30 DAYS., # 120 tablet, 5 Refills, Maintenance, 04/25/23 15:25:00 EST, [facility] 57663, 157, cm, 04/17/23 7:57:00 EST, Height, 88.3, kg, 04/16/23 11:33:00 EST, Dry Weight Start Date: 04/25/23 Status: Ordered Lantus Solostar Pen 100 units/mL subcutaneous solution See Instructions, Take 45 units in the AM and 45 units daily at bedtime. E11.9., # 30 mL, 9 Refills, Maintenance, 07/24/23 13:18:00 EDT, [facility], Partial fill upon patient requestif the prescription is for a schedule II opioid lucas... Start Date: 07/24/23 Status: Ordered levothyroxine 0.1 mg oral tablet 1 tablet = 100 mcg, By Mouth, Daily, # 30 tablet, 11 Refills, Maintenance, 07/25/23 8:52:00 EDT, [facility]/pharmacy #[id number], stop the 112mcg dose, 157, [...] Refills, Maintenance, 09/10/23 10:47:00 EDT, Tablet, [facility] [...] mL, 0 Refills, Maintenance, 09/30/23 10:01:00 EDT, [facility] 81379, 30, INSTILL 5 DROPS INTO BOTH EARS TWICE DAILY FOR 7 DAYS, 157, cm, 09/25/23 16:26:00 EDT, Height, 84, kg... Start Date: 09/30/23 Status: Ordered Narcan 4 mg/0.1 mL nasal spray = 4 mg, Nares, Both, Once, # 2 each, 2 Refills, Soft Stop, 02/22/23 14:30:00 EST, [facility]/pharmacy #[id number], Partial fill upon patient request if the prescription is for a schedule II opioid drug., 157.5, cm, 02/19/23 9:20:00 EST, Height Start Date: 02/22/23 Status: Ordered Rayle-3 Fish Oil 1000 mg oral capsule 1 [...] Refills, Maintenance, 07/03/23 14:40:00 EDT, [facility], 157, cm, 06/24/23 14:54:00 EDT, Height, 88.3, [...] mL, 11 Refills, Maintenance, 08/23/23 11:17:00 EDT, [facility], Partial fill upon patient request if... Start Date: 08/23/23 Status: Ordered Pen [place], 31 G x 8 mm BD Ultra [...] 10:47:00 EDT, Route to Pharmacy Electronically, [facility]/pharmacy #[id number], Partial fill upon patient request if the prescription is for a schedule II opi... Start Date: 09/10/23 Stop Date: 02/07/24 Status: Ordered scale assembly set up worker grabber tool scale assembly set up worker grabber tool, See Instructions, # 1 each, Refills 0, Tot. Refills 0, Maintenance, please dispense one scale assembly set up worker grabber tool, ICD 10 M54.6, length of use 1 month, 04/12/22 10:13:00 EST, Supply Start Date: 04/12/22 Status: Ordered replacement hospital bed with mattress replacement hospital bed with mattress, See Instructions, # 1 each, Refills 0, Tot. Refills 0, Maintenance, please dispense 1 replacement hospital bed [facility] mattress, DX G89.4, length of use lifetime, 06/20/22 14:20:00 EDT, Supply Start Date: 06/20/22 Status: Ordered topiramate 25 mg oral tablet 3 tablet, By Mouth, Daily at bedtime, # 90 tablet, 10 Refills, Maintenance, 10/08/23 15:43:00 EDT, [facility], 157, cm, 09/25/23 16:26:00 EDT, Height, 84, kg, 07/24/23 12:52:00 EDT, Dry Weight Start Date: 10/08/23 Status: Ordered valACYclovir 500 mg oral tablet 1, tablet, By Mouth, 2 times a day, PRN, # 6 tablet, Refills 0, Maintenance, NEEDED FOR OUTBREAKS, 10/09/23 10:57:00 EDT, Route to Pharmacy Electronically, [facility] [id number], 157, cm, 09/25/23 16:26:00 EDT, Height, 84, [...] Refills, Maintenance, 09/17/22 15:25:00 EDT, [facility], 157.5, cm, 09/05/22 16:22:00 EDT, Height Start [...] 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 *Briana Garces, Faculty Head, ICP [phone] Confirmed Active PTSD (post-traumatic stress disorder) Confirmed [...] Personnel Name: Sergo Bazzi MD Position: [facility] Physician - Primary Care Member Role: PCP Address: Address: [address] [place] [address] Adult Medicine [place], [place] [address] Name: Lizbeth Collins [place] Position: [facility] Office Staff Member Role: Primary Care Nurse Care Team Related Persons Name: LB HENLEY Address: home [address] [address] Name: LB HENLEY Address: home [address] [place] [address] Name: MILENA CUBA Address: home [address] [place] [address] [address] [place] [address]
--- OUTSIDE RECORDS SUMMARY | 2024-01-23 14:40 | XMS_ITS | Continuity of Care Document ---
Author Organization [facility] Address [address] [place] [address]- Care Team Providers Care Supervisor Char House Name Role Phone Sergo Bazzi MD Primary Care Physician Encounter [facility] Date(s): 10/22/22 - 11/21/22 [facility] [address], [place] [address] Allergies, Adverse Reactions, Alerts Substance [...] 01/21/08 Given 1Result Comment: [01/22/2017] [facility] [id number] 2Admin Note: vis given dated 10/24/12 3Admin [...] 100 tablet, 1 Refills, Acute, 219:52:00 EDT, [facility], 157.48, cm, 10/11/20 9:39:00 EDT, Height Start Date: 10/26/20 Status: Ordered Alcohol Pads See Instructions, # 200 each, Refills 11, Tot. Refills 11, Maintenance, To cleans before injections5 x a day., 03/03/21 9:18:00 EST, E11.65, Compound, 157.48, cm, 03/01/21 15:54:00 EST, Height Start Date: 03/03/21 Stop Date: 02/26/22 Status: Ordered Udzwt-Jyufcd-Folh 300 mg oral capsule 1 capsule, By Mouth, 2 times a day, NOT COVERED., # 60 capsule, 11 Refills, [facility], 157.48, cm, 01/27/21 9:30:00 EDT, Height Start Date: 01/30/21 Status: Ordered ammonium lactate 12% topical cream 1 application, Topically, 2 times a day, # 385 Gm, 3 Refills, Maintenance, 08/24/22 14:16:00 EDT, Cream, [facility]/pharmacy #[id number], Partial fill upon patient request if the prescription is for a schedule IIopioid drug., 1 application Topically 2 times a day... Start Date: 08/24/22 Stop Date: 12/22/22 Status: Ordered atorvastatin 80 mg oral tablet 1 tablet = 80 mg, By Mouth, Daily, replaces Simvastatin, # 90 tablet, 4 Refills, Maintenance, 08/26/22 14:22:00 EDT, Tablet, [facility]/pharmacy #[id number], replaces simvastatin, 157.5, cm, 11/29/21 15:59:00 EDT, Height Start Date: 08/26/22 Stop Date: 11/19/23 Status: Ordered BD Single Use Swab 70% topical pad See Instructions, TO CLEANS BEFORE INJECTIONS 5 X A DAY., # 150 Unknown, 11 Refills, Maintenance, 08/16/22 10:15:00 EDT, [facility], 30, TO CLEANS BEFORE INJECTIONS 5 X A DAY., 157.5, cm, 08/01/22 9:27:00 EDT, Height Start Date: 08/16/22 Status: Ordered capsaicin 0.075% topical cream See Instructions, APPLY TO AFFECTED AREA TWICE A DAY, # 57 Gm, 4 Refills, Maintenance, 08/24/22 14:16:00 EDT, [facility]/pharmacy #[id number], 30, APPLY TO AFFECTED [...] tablet, 11 Refills, Maintenance, 07/09/22 10:30:00 EDT, [facility]/pharmacy #[id number], 30, 1 tablet By [...] Replace Required Details, Route to Pharmacy Electronically, [facility]/pharmacy... Start Date: 08/30/22 Status: Ordered diclofenac 1% topical gel See Instructions, APPLY TOPICALLY 4 TIMES A DAY NOT TO EXCEED 16 GRAMS/DAY/SINGLE JOINT OF LOWER EXTREMITIES, # 100 Gm, 6 Refills, Maintenance, 08/24/22 14:16:00 EDT, [facility]/pharmacy #[id number], 30, APPLY TOPICALLY 4 TIMES A DAY NOT TO EXCEED 16 GRAMS/DAY/SIN... Start Date: 08/24/22 Status: Ordered docusate sodium 100 mg oral capsule See Instructions, TAKE 1 CAPSULE BY MOUTH TWICE A DAY NEEDED FOR CONSTIPATION, # 60 capsule, 5 Refills, Maintenance, 07/03/22 18:20:00 EDT, [facility]/pharmacy #[id number], Duplicate Rx. Original sent 07/03/22 with routing error. Re- sending to pharmacy, 157.5, cm... Start Date: 07/03/22 Status: Ordered docusate sodium 100 mg oral capsule 100 mg, 1, capsule, By Mouth, 2 times a day, PRN, # 60 capsule, Refills 5, Tot. Refills 5, Maintenance, as needed for constipation, 06/12/22 9:52:00 EDT, Route to Pharmacy Electronically, [facility]/pharmacy #[id number], Partial fill upon patient [...] Refills, Maintenance, 09/20/22 9:36:00 EDT, [facility], 30, INHALE 1 PUFF BY MOUTH TWICE A DAY, 157.5, cm, 09/05/22 16:22:00 EDT, Height Start Date: 09/20/22 Status: Ordered fluticasone 50 mcg/inh nasal spray See Instructions, SPRAY 1 SPRAY INTO EACH NOSTRIL EVERY DAY, # 16 mL, 5 Refills, Maintenance, 07/05/22 16:20:00 EDT, [facility] STORE 40511, 30, SPRAY 1 SPRAY INTO EACH NOSTRIL [...] mL, 6 Refills, Maintenance, 06/12/22 10:00:00 EDT, [facility], Partial fill upon patie... Start Date: 06/12/22 Status: Ordered Lactaid 3000 units oral tablet 3 tablet = 9,000 units, By Mouth, 3 times a day with meals, # 120 tablet, 5 Refills, Maintenance, 08/17/22 9:03:00 EDT, Tablet, [facility]/pharmacy #[id number], Partial fill upon patient request if the prescription is for a schedule II opioid drug., 157.5, cm, ... Start Date: 08/17/22 Stop Date: 02/13/23 Status: Ordered Lantus Solostar Pen 100 units/mL subcutaneous solution See Instructions, Take 45 units in the AM and 45 units daily at bedtime. E11.9., # 30 mL, 9 Refills, Maintenance, 06/19/22 16:50:00 EDT, [facility], Partial fill upon patient requestif [...] 5 Refills, Maintenance, 05/01/22 18:04:00 EST, Capsule, [facility]/pharmacy #[id number], Partial fill upon patient [...] 90 capsule, 0 Refills, Maintenance, 10/18/2313:25:00 EDT, [facility]/pharmacy #[id number], Partial fill upon patient request if the prescription is for a schedule II opioid drug., 157.5, cm, 10/08/22 18:20:00... Start Date: 10/18/22 Stop Date: 01/16/23 Status: Ordered [place]-3 Fish Oil 1000 mg oral capsule 1 capsule = 1,000 mg, By Mouth, Daily, # 90 capsule, 1 Refills, Maintenance, 08/01/22 10:17:00 EDT,[facility]/pharmacy #[id number], Partial fill upon patient request if the prescription is for a schedule II opioid drug., 157.5, cm, 08/01/22 9:27:00 EDT, Height Start Date: 08/01/22 Status: Ordered omeprazole 20 mg oral delayed release tablet 1 tablet = 20 mg, By Mouth, 2 times a day, do not crush or chew, # 60 tablet, 2 Refills, Maintenance, 06/14/22 16:40:00 EDT, EC Tablet, [facility]/pharmacy #[id number], Partial fill upon patient request if the prescription is for a schedule II opioid drug., 157.5,... Start Date: 06/14/22 Status: Ordered oxyCODONE 10 mg oral tablet TAKE 1/2 TAB EVERY 12 HOURS NEEDED FOR SEVERE NECK/LOW BACK PAIN. DO NOT FILL UNTIL 05/01/21 Start Date: 06/02/21 Status: Ordered Pen [place], 31 G x 8 mm BD Ultra [...] 08/30/22 13:31:00 EDT, Route to Pharmacy Electronically, [facility]/pharmacy #[id number], Partial fill upon patient request if the prescription is for a schedule II opi... Start Date: 08/30/22 Stop Date: 01/27/23 Status: Ordered sand cutting machine operator grabber tool sand cutting machine operator grabber tool, See Instructions, # 1 each, Refills 0, Tot. Refills 0, Maintenance, please dispense one sand cutting machine operator grabber tool, ICD 10 M54.6, length [...] 14:16:00 EDT, 08/24/22 14:16:00 EDT, Chew Tablet, [facility]/pharmacy #[id number], Partial fill upon patient [...] Stop 12/15/22 14:36:00 EDT, 04/19/22 14:36:00 EST, [facility]/pharmacy #[id number], 157.5, cm, 04/11/22 10:50:00 EST, Height Start Date: 04/19/22 Stop Date: 12/15/22 Status: Ordered Topamax 25 mg oral tablet 3 tablet = 75 mg, By Mouth, Daily at bedtime, # 90 tablet, 6 Refills, Maintenance, 06/26/22 10:14:00 EDT, Tablet, [facility], 157.5, cm, 06/21/22 8:43:00 EDT, Height Start Date: 06/26/22 Stop Date: 01/22/23 Status: Ordered Trulicity Pen 4.5 mg/0.5 mL subcutaneous solution See Instructions, INJECT 4.5 MG SUBCUTANEOUSLY ONCE A WEEK, # 2 mL, 5 Refills, Maintenance, 11/21/22 8:33:00 EDT, [facility], 157.5, cm, 11/16/22 13:50:00 EDT, Height Start Date: 11/21/22 Status: Ordered valACYclovir 500 mg oral tablet 1, tablet, By Mouth, 2 times a day, PRN, # 6 tablet, Refills 2, Maintenance, NEEDED FOR OUTBREAKS, 07/11/22 16:11:00 EDT, Route to Pharmacy Electronically, [facility], 157.5, cm, 06/21/22 8:43:00 EDT, Height Start Date: 07/11/22 Stop Date: 07/14/22 Status: Ordered Vascepa 1 g oral capsule 2 capsule = 2 Gm, By Mouth, 2 times a day, # 360 capsule, 5 Refills, Maintenance, 05/03/20 15:59:00EST, Capsule, 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 *Briana Garces, Ceramic Products Sales Engineer, [facility] [phone] Confirmed Active PTSD (post-traumatic stress disorder) Confirmed [...] Rose Mary FISCHER, Sergo Cole Position: [facility] Physician - Primary Care Member Role: PCP Address: Address: [address] [facility] [place] [address]- Name: Lizbeth Collins [place] Position: [facility] RN Member Role: Primary Care Nurse Care Team Related Persons Name: LB HENLEY Address: [address] [place] [address] Name: LB HENLEY Address: home [address] [address] Name: MILENA CUBA Address: home [address] [place] [address]
--- OUTSIDE RECORDS SUMMARY | 2024-01-23 14:40 | XMS_ITS | Continuity of Care Document ---
Author Organization [facility] Address [address], [address], [address] [place] [address]- Care Team Providers Care Research Animal Attendant Name Role Phone Sergo Bazzi MD Primary Care Physician [phone] Encounter [facility] Date(s): 01/19/22 - 01/26/22 [facility] [address], [address], [address] [place] [id number] Attending Physician: Orlando Butler MD Referring Physician: Sergo Bazzi MD Allergies, [...] 8 01/21/08 Given 1Result Comment: [01/22/2017] [facility] [id number] 2Admin Note: vis given dated 10/24/12 3Admin Note: vis given dated 10/01/11 4Admin Note: vis 5Admin Note: vis 6Admin Note: vis given: 10/27/2006 7Admin Note: vis given : 10/10/2005 8Admin Note: vis given 2007- Medications acetaminophen 500 mg oral tablet 2 tablet, By Mouth, 4 times a day, PRN NEEDED FOR PAIN, # 100 tablet, 1 Refills, Acute, 219:52:00 EDT, [facility], 157.48, cm, 10/11/20 9:39:00 EDT, Height Start Date: 10/26/20 Status: Ordered Alcohol Pads See Instructions, # 200 each, Refills 11, Tot. Refills 11, Maintenance, To cleans before injections5 x a day., 03/03/21 9:18:00 EST, E11.65, Compound, 157.48, cm, 03/01/21 15:54:00 EST, Height Start Date: 03/03/21 Stop Date: 02/26/22 Status: Ordered Vfjmr-Zuyoxh-Mnri 300 mg oral capsule 1 capsule, By Mouth, 2 times a day, NOT COVERED., # 60 capsule, 11 Refills, [facility], 157.48, cm, 01/27/21 9:30:00 EDT, Height Start Date: 01/30/21 Status: Ordered ammonium lactate 12% topical cream 1 application, Topically, 2 times a day, # 385 Gm, 5 Refills, Maintenance, 09/08/21 9:35:00 EDT, Cream, [facility]/pharmacy #3251, Partial fill upon patient request if the prescription is for a schedule II opioid drug., 1 application Topically 2 times a day,... Start Date: 09/08/21 Stop Date: 03/07/22 Status: Ordered atorvastatin 80 mg oral tablet 1 tablet = 80 mg, By Mouth, Daily, for 90 days, replaces Simvastatin, # 90 tablet, 4 Refills, Hard Stop 05/28/23 14:22:00 EDT, 06/02/21 14:22:00 EST, Tablet, [facility] [...] tablet, 11 Refills, Maintenance, 08/19/20 16:26:00 EDT, [facility] STORE 81876, 30, TAKE 1 TABLET BY MOUTH DAILY. [...] 03/30/22 13:11:00 EST, 09/01/21 13:11:00 EDT, Gel, [facility]/pharmacy #[id number], 157.48, cm, 08/24/21 8:03:00 EDT,... Start [...] 11/10/21 9:17:00 EDT, [id number] Partial fill upon [...] # 16 mL, 5 Refills, 12/29/21 15:10:00 EDT,[facility]/pharmacy #[id number], USE 1 SPRAY IN EACH NOSTRIL EVERY DAY, 157.5, cm, 11/29/21 15:59:00 EDT, Height Start Date: 12/29/21 Status: Ordered Lantus Solostar Pen 100 units/mL subcutaneous solution See Instructions, Take 80 units via Subcutaneous Infusion Daily at bedtime. E11.9., # 30 mL, 9 Refills, Maintenance, 08/24/21 9:25:00 EDT, [facility], Partial fill upon patient request if the prescription is for a schedule II opioid d... Start Date: 08/24/21 Status: Ordered Lantus Solostar Pen 100 units/mL subcutaneous solution See Instructions, Decreased to 60U once a day as of 12/29/19, # 30 mL, 9 Refills, Maintenance, 09/20/20 15:10:00 EDT, [facility], NEEDS 30 ML FOR 30 DAY SUPPLY E11.9, 157.48, cm, 05/31/20 9:41:00 EST, Height Start Date: 09/20/20 Status: Ordered lidocaine 5% topical ointment See Instructions, APPLY TO AFFECTED AREA 3 TIMES A DAY, # 35.44 Gm, 11 Refills, [facility], 30, APPLY TO AFFECTED AREA 3 TIMES [...] Stop 09/16/22 11:02:00 EDT, 01/19/22 11:02:00 EDT, [facility]/pharmacy #[id number], 157.5, cm, 01/09/22 10:18:00 EDT, Height Start Date: 01/19/22 Stop Date: 09/16/22 Status: Ordered Topamax 25 mg oral tablet 3 tablet = 75 mg, By Mouth, Daily at bedtime, # 90 tablet, 6 Refills, Maintenance, 01/19/22 10:34:00 EDT, Tablet, [facility]/pharmacy #[id number], 157.5, cm, 01/09/22 10:18:00 EDT, Height Start Date: 01/19/22 Stop Date: 08/17/22 Status: Ordered Trulicity Pen 3 mg/0.5 mL subcutaneous solution See Instructions, INJECT 0.5ML SUBCUTANEOUSLY EVERY WEEK, ROTATE INJECTION SITES, # 2 mL, 5 Refills, 01/23/22 16:33:00 EDT, [facility], 157.5, cm, 01/20/22 13:38:00 [...] 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
--- OUTSIDE RECORDS SUMMARY | 2024-01-23 14:41 | XMS_ITS | Continuity of Care Document ---
Author Organization [facility] Address [address] [place] [address]- Care Team Providers Care Private Advisor Name Role Phone Sergo Bazzi MD Primary Care Physician Encounter [facility] [place] Date(s): 06/01/23 - 07/01/23 [facility] [address] [place] [address]- Allergies, Adverse Reactions, Alerts Substance Reaction Severity [...] [facility] [id number] 2Admin Note: vis given dated 10/24/12 3Admin [...] 100 tablet, 1 Refills, Acute, 219:52:00 EDT, [facility], 157.48, cm, 10/11/20 9:39:00 EDT, Height Start [...] Date: 03/03/21 Stop Date: 02/26/22 Status: Ordered Jxksr-Qzmxgh-Ocjz 300 mg oral capsule 1 capsule, By Mouth, 2 times a day, NOT COVERED., # 60 capsule, 11 Refills, [facility], 157.48, cm, 01/27/21 9:30:00 EDT, Height Start Date: 01/30/21 Status: Ordered ammonium lactate 12% topical cream 1 application, Topically, 2 times a day, # 385 Gm, 1 Refills, Maintenance, 12/22/22 14:16:00 EDT, Cream, [facility]/pharmacy #[id number], Partial fill upon patient request if the prescription is for a schedule IIopioid drug., 1 application Topically 2 times a day... Start Date: 12/22/22 Stop Date: 02/20/23 Status: Ordered atorvastatin 80 mg oral tablet 1 tablet, By Mouth, Daily, INSTR:REPLACES SIMVASTATIN, # 90 tablet, 1 Refills, Maintenance, 05/22/23 12:07:00 EST, [facility], 157, cm, 05/06/23 14:23:00 EST, Height, 88.3, kg, 04/16/23 11:33:00EST, Dry Weight Start Date: 05/22/23 Status: Ordered BD Single Use Swab 70% topical pad See Instructions, TO CLEANS BEFORE INJECTIONS 5 X A DAY., # 150 Unknown, 11 Refills, Maintenance, 08/16/22 10:15:00 EDT, [facility], 30, TO CLEANS BEFORE INJECTIONS 5 X A DAY., 157.5, cm, 08/01/22 9:27:00 EDT, Height Start Date: 08/16/22 Status: Ordered busPIRone 5 mg oral tablet 5 mg, 1, tablet, By Mouth, 2 times a day, # 60 tablet, Refills 4, Tot. Refills 4, Maintenance, 04/30/23 7:27:00 EST, Route to Pharmacy Electronically, [facility]/pharmacy #[id number], Partial fill upon patient request if the prescription is for a schedule II opioi... Start Date: 04/30/23 Stop Date: 09/27/23 Status: Ordered capsaicin 0.075% topical cream See Instructions, APPLY TO AFFECTED AREA TWICE A DAY, # 57 Gm, 4 Refills, Maintenance, 04/11/23 10:18:00 EST, [facility], 30, APPLY TO AFFECTED AREA TWICE A [...] 11 Refills, Maintenance, 07/09/22 10:30:00 EDT, [facility]/pharmacy #4471, 30, 1 tablet By Mouth Daily,Instr:INSTR:TAKE [...] 1 Refills, Maintenance, 12/14/22 6:14:00 EDT, [facility]/pharmacy #4471, 30, APPLY TOPICALLY 4 TIMES A [...] 5 Refills, Maintenance, 07/03/22 18:20:00 EDT, [facility]/pharmacy #4471, Duplicate Rx. Original sent 07/03/22 with routing error. Re- sending to pharmacy, 157.5, cm... Start Date: 07/03/22 Status: Ordered esomeprazole 40 mg oral enteric coated capsule 1 capsule = 40 mg, By Mouth, Daily, # 90 capsule, 1 Refills, Maintenance, 03/07/23 13:32:00 EST, [facility]/pharmacy #[id number], Partial fill upon [...] each, 0 Refills, Maintenance, 09/20/22 9:36:00 EDT, [facility], 30, INHALE 1 PUFF BY MOUTH TWICE A DAY, 157.5, cm, 09/05/22 16:22:00 EDT, Height Start Date: 09/20/22 Status: Ordered fluticasone 50 mcg/inh nasal spray See Instructions, SPRAY 1 SPRAY INTO EACH NOSTRIL EVERY DAY, # 16 mL, 5 Refills, Maintenance, 07/05/22 16:20:00 EDT, [facility], 30, SPRAY 1 SPRAY INTO EACH NOSTRIL [...] Ordered FREESTYLE LANCETS MIS Miscellaneous FREESTYLE LANCETS [facility] Miscellaneous, See Instructions, # 100 Unknown, 5 [...] tablet, 4 Refills, Maintenance, 03/11/23 15:50:00 EST, [facility], 157.5, cm, 02/19/23 9:20:00 EST, Height Start [...] 6 Refills, Maintenance, 11/26/22 14:55:00 EDT, [facility], Partial fill upon patie... Start Date: 11/26/22 Status: Ordered lactase 3000 u oral tablet 3 tablet, By Mouth, 3 times a day with meals, X30 DAYS., # 120 tablet, 5 Refills, Maintenance, 04/25/23 15:25:00 EST, [facility], 157, cm, 04/17/23 7:57:00 EST, Height, 88.3, kg, 04/16/23 11:33:00 EST, Dry Weight Start Date: 04/25/23 Status: Ordered Lantus Solostar Pen 100 units/mL subcutaneous solution See Instructions, Take 45 units in the AM and 45 units daily at bedtime. E11.9., # 30 mL, 9 Refills, Maintenance, 11/26/22 14:55:00 EDT, [facility], Partial fill upon patient requestif the prescription is for a schedule II opioid lucas... Start Date: 11/26/22 Status: Ordered levothyroxine 0.112 mg oral tablet 1 tablet, By Mouth, Daily, # 30 tablet, 11 Refills, Maintenance, 06/25/23 14:09:00 EDT, [facility]/pharmacy #[id number], 157, cm, 06/24/23 14:54:00 EDT, Height, [...] 11 Refills, Maintenance, 07/03/22 18:22:00 EDT, [facility]/pharmacy #4471, 30, Duplicate Rx. Original sent 07/03/22 with routing error. Re-sending to pharmacy, APPLY TO AFFECTED AREA 3 TIMES A... Start Date: 07/03/22 Status: Ordered losartan 50 mg oral tablet See Instructions, TAKE 1 TABLET BY MOUTH EVERY DAY, # 90 tablet, 1 Refills, Maintenance, 03/11/23 15:50:00 EST, [facility] 67343, 157.5, cm, 02/19/23 9:20:00 EST, Height Start Date: 03/11/23 Status: Ordered Lyrica 25 mg oral capsule See Instructions, 1 capsule By Mouth 1 time daily at bedtime. E11.9, # 30 each, 5 Refills, Maintenance, 01/21/23 15:40:00 EDT, Capsule, [facility]/pharmacy #[id number], Partial fill upon patient request if the prescription is for a schedule II opioid drug., 157.5,... Start Date: 01/21/23 Status: Ordered mirtazapine 15 mg oral tablet 1 tablet = 15 mg, By Mouth, Daily at bedtime, # 30 tablet, 4 Refills, Maintenance, 12/06/22 13:07:00 EDT, Tablet, [facility]/pharmacy #[id number], Partial fill upon patient request if the prescription is for a schedule II opioid drug., 157.5, cm, 11/26/22 14:11:00... Start Date: 12/06/22 Stop Date: 05/05/23 Status: Ordered Narcan 4 mg/0.1 mL nasal spray = 4 mg, Nares, Both, Once, # 2 each, 2 Refills, Soft Stop, 02/22/23 14:30:00 EST, [facility]/pharmacy #[id number], Partial fill upon patient request if the prescription is for a schedule II opioid drug., 157.5, cm, 02/19/23 9:20:00 EST, Height Start Date: 02/22/23 Status: Ordered [place]-3 Fish Oil 1000 mg oral capsule 1 capsule = 1,000 mg, By Mouth, Daily, # 90 capsule, 1 Refills, Maintenance, 08/01/22 10:17:00 EDT,[facility]/pharmacy #[id number], Partial fill upon patient [...] 05/01/21 Start Date: 06/02/21 Status: Ordered Pen [place], 31 G x 8 mm BD [...] 13:08:00 EDT, Route to Pharmacy Electronically, [facility]/pharmacy #[id number], Partial fill upon patient request if the prescription is for a schedule II opi... Start Date: 12/06/22 Stop Date: 05/05/23 Status: Ordered decorating consultant grabber tool decorating consultant grabber tool, See Instructions, # 1 each, Refills 0, Tot. Refills 0, Maintenance, please dispense one decorating consultant grabber tool, ICD 10 M54.6, length [...] tablet, 10 Refills, Maintenance, 01/17/23 8:54:00 EDT, [facility], 157.5, cm, 12/28/22 15:12:00 EDT, Height Start Date: 01/17/23 Status: Ordered Trulicity Pen 4.5 mg/0.5 mL subcutaneous solution See Instructions, INJECT 4.5 MG SUBCUTANEOUSLY ONCE A WEEK, # 2 mL, 10 Refills, Maintenance, 06/10/23 12:32:00 EDT, [facility], 157, cm, 05/06/23 14:23:00 EST, Height, 88.3, kg, 04/16/23 11:33:00 EST, Dry Weight Start Date: 06/10/23 Status: Ordered valACYclovir 500 mg oral tablet 1, tablet, By Mouth, 2 times a day, PRN, # 6 tablet, Refills 0, Maintenance, NEEDED FOR OUTBREAKS, 05/22/23 12:07:00 EST, Route to Pharmacy Electronically, [facility], 157, cm, 05/06/23 14:23:00 EST, Height, 88.3, [...] each, 0 Refills, Maintenance, 09/17/22 15:25:00 EDT, [facility], 157.5, cm, 09/05/22 16:22:00 EDT, Height Start [...] 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 *Briana Garces, Copy Lathe Operator, [facility] [phone] Confirmed Active PTSD (post-traumatic stress disorder) Confirmed [...] Personnel Name: Sergo Bazzi MD Position: [facility] Physician - Primary Care Member Role: PCP Address: Address: [address] [facility] [place] [address]- Name: Lizbeth Collins [place] Position: [facility] RN Member Role: Primary Care Nurse Care Team Related Persons Name: LB HENLEY Address: home [address] [address] Name: LB HENLEY Address: home [address] [place] [address] Name: MILENA CUBA Address: home [address] [place] [address]
--- OUTSIDE RECORDS SUMMARY | 2024-01-23 14:41 | XMS_ITS | Continuity of Care Document ---
Author Organization [facility] Address [address] [place] [address] [address] [place] [address]- Care Team Providers Care Welding Rod Coater Name Role Phone Sergo Bazzi MD Primary Care Physician [place] [facility] [place] 02/21/23 [facility] [address] [place] [address]- Allergies, Adverse Reactions, Alerts Substance Reaction Severity [...] 1Result Comment: [01/22/2017] [facility] [id number] 2Admin Note: vis given dated 10/24/12 3Admin [...] 100 tablet, 1 Refills, Acute, 219:52:00 EDT, [facility], 157.48, cm, 10/11/20 9:39:00 EDT, Height Start Date: 10/26/20 Status: Ordered Alcohol Pads See Instructions, # 200 each, Refills 11, Tot. Refills 11, Maintenance, To cleans before injections5 x a day., 03/03/21 9:18:00 EST, E11.65, Compound, 157.48, cm, 03/01/21 15:54:00 EST, Height Start Date: 03/03/21 Stop Date: 02/26/22 Status: Ordered Lboii-Kndohn-Gxhv 300 mg oral capsule 1 capsule, By Mouth, 2 times a day, NOT COVERED., # 60 capsule, 11 Refills, [facility], 157.48, cm, 01/27/21 9:30:00 EDT, Height Start Date: 01/30/21 Status: Ordered ammonium lactate 12% topical cream 1 application, Topically, 2 times a day, # 385 Gm, 1 Refills, Maintenance, 12/22/22 14:16:00 EDT, Cream, [facility]/pharmacy #[id number], Partial fill upon patient request if the prescription is for a schedule IIopioid drug., 1 application Topically 2 times a day... Start Date: 12/22/22 Stop Date: 02/20/23 Status: Ordered atorvastatin 80 mg oral tablet 1 tablet = 80 mg, By Mouth, Daily, replaces Simvastatin, # 90 tablet, 1 Refills, Maintenance, 11/19/23 14:22:00 EDT, Tablet, [facility]/pharmacy #[id number], replaces simvastatin, 157.5, cm, 11/26/22 14:11:00 EDT, Height Start Date: 11/19/23 Stop Date: 05/17/24 Status: Ordered atorvastatin 80 mg oral tablet 1 tablet = 80 mg, By Mouth, Daily, for 90 days, replaces Simvastatin, # 90 tablet, 4 Refills, Hard Stop 11/19/23 14:22:00 EDT, 08/26/22 14:22:00 EDT, Tablet, [facility]/pharmacy #[id number], replaces simvastatin,157.5, cm, 11/29/21 15:59:00 [...] Gm, 4 Refills, Maintenance, 08/24/22 14:16:00 EDT, [facility]/pharmacy #[id number], 30, APPLY TO AFFECTED [...] tablet, 11 Refills, Maintenance, 07/09/22 10:30:00 EDT, [facility]/pharmacy #[id number], 30, 1 tablet By Mouth Daily,Instr:INSTR:TAKE IT 2 HOURS SEPARATE FROM ORLISTAT ([place]), 157... Start Date: 07/09/22 Status: Ordered diclofenac 1% topical gel See Instructions, APPLY TOPICALLY 4 TIMES A DAY NOT TO EXCEED 16 GRAMS/DAY/SINGLE JOINT OF LOWER EXTREMITIES, # 100 Gm, 1 Refills, Maintenance, 12/14/22 6:14:00 EDT, [facility]/pharmacy #[id number], 30, APPLY TOPICALLY 4 TIMES A DAY NOT TO EXCEED 16 GRAMS/DAY/SING... Start Date: 12/14/22 Status: Ordered docusate sodium 100 mg oral capsule See Instructions, TAKE 1 CAPSULE BY MOUTH TWICE A DAY NEEDED FOR CONSTIPATION, # 60 capsule, 5 Refills, Maintenance, 07/03/22 18:20:00 EDT, [facility]/pharmacy #[id number], Duplicate Rx. Original sent 07/03/22 with routing error. Re- sending to pharmacy, 157.5, cm... Start Date: 07/03/22 Status: Ordered docusate sodium 100 mg oral capsule 100 mg, 1, capsule, By Mouth, 2 times a day, PRN, # 60 capsule, Refills 5, Tot. Refills 5, Maintenance, as needed for constipation, 06/12/22 9:52:00 EDT, Route to Pharmacy Electronically, [facility]/pharmacy #[id number], Partial fill upon patient request if the pr... Start Date: 06/12/22 Status: Ordered esomeprazole 40 mg oral enteric coated capsule 1 capsule = 40 mg, By Mouth, Daily, # 90 capsule, 0 Refills, Maintenance, 12/24/22 15:20:00 EDT, [facility]/pharmacy #[id number], Partial fill upon patient [...] each, 0 Refills, Maintenance, 09/20/22 9:36:00 EDT, [facility], 30, INHALE 1 PUFF BY MOUTH TWICE A DAY, 157.5, cm, 09/05/22 16:22:00 EDT, Height Start Date: 09/20/22 Status: Ordered fluticasone 50 mcg/inh nasal spray See Instructions, SPRAY 1 SPRAY INTO EACH NOSTRIL EVERY DAY, # 16 mL, 5 Refills, Maintenance, 07/05/22 16:20:00 EDT, [facility], 30, SPRAY 1 SPRAY INTO EACH NOSTRIL [...] 5 Refills, Maintenance, 08/17/22 9:03:00 EDT, Tablet, [facility]/pharmacy #[id number], Partial fill upon patient [...] Gm, 11 Refills, Maintenance, 02/28/22 8:51:00 EST, [facility]/pharmacy #[id number], 30, APPLY TO AFFECTED AREA 3 TIMES A DAY, 157.5, cm, 02/21/22 14:36:00 EST, Height Start Date: 02/28/22 Status: Ordered lidocaine 5% topical ointment See Instructions, APPLY TO AFFECTED AREA 3 TIMES A DAY, # 35.44 Gm, 11 Refills, Maintenance, 07/03/22 18:22:00 EDT, [facility]/pharmacy #[id number], 30, Duplicate Rx. Original [...] 4 Refills, Maintenance, 12/06/22 13:07:00 EDT, Tablet, [facility]/pharmacy #[id number], Partial fill upon patient request if the prescription is for a schedule II opioid drug., 157.5, cm, 11/26/22 14:11:00... Start Date: 12/06/22 Stop Date: 05/05/23 Status: Ordered Barnhart-3 Fish Oil 1000 mg oral capsule 1 [...] 05/01/21 Start Date: 06/02/21 Status: Ordered Pen [place], 31 G x 8 mm BD Ultra [...] 12/06/22 13:08:00 EDT, Route to Pharmacy Electronically, [facility]/pharmacy #[id number], Partial fill upon patient request if the prescription is for a schedule II opi... Start Date: 12/06/22 Stop Date: 05/05/23 Status: Ordered orthopedic cast specialist grabber tool orthopedic cast specialist grabber tool, See Instructions, # 1 each, Refills 0, Tot. Refills 0, Maintenance, please dispense one orthopedic cast specialist grabber tool, ICD 10 M54.6, length [...] tablet, 10 Refills, Maintenance, 01/17/23 8:54:00 EDT, [facility], 157.5, cm, 12/28/22 15:12:00 [...] 12/14/22 6:14:00 EDT, Route to Pharmacy Electronically, [facility]/pharmacy #[id number], 157.5, cm, 11/26/22 14:11:00 EDT, [...] Refills, Maintenance, 05/03/20 15:59:00EST, Capsule, [facility]/pharmacy #[id number], 157.48, cm, 03/04/20 14:14:00 EST, Height Start Date: 05/03/20 Status: Ordered Ventolin HFA 108 mcg/inh inhalation aerosol with adapter 1 puffs, Inhalation, 4 times a day, PRN NEEDED FOR WHEEZING, # 18 each, 0 Refills, Maintenance, 09/17/22 15:25:00 EDT, [facility], 157.5, cm, 09/05/22 16:22:00 EDT, Height Start [...] 5 Confirmed 02/20/10 Active *Briana Garces, Manager Land, ICP [phone] Confirmed Active PTSD (post-traumatic stress disorder) Confirmed Active Reflux Confirmed Active Severe obesity (BMI 35.0-39.9) with comorbidity Confirmed Active Hepatic steatosis Confirmed Active Tubular adenoma of colon Confirmed Active 34257 -EF 60-65%. No wall motion abnormalities, Does [...] MD Position: [facility] Physician - Primary Care Member Role: PCP Address: Address: [address] [facility] [place] [address]- Name: Lizbeth Collins [place] Position: [facility] RN Member Role: Primary Care Nurse Care Team Related Persons Name: LB HENLEY Address: home [address] [place] [address] Name: LB HENLEY Address: home [address] [address] Name: MILENA CUBA Address: home [address] [facility] [facility] [address] [place] [address]
--- OUTSIDE RECORDS SUMMARY | 2024-01-23 14:41 | XMS_ITS | Continuity of Care Document ---
Author Organization [facility] Address [address] [place] [address]- Care Team Providers Care Transportation Solutions Manager Name Role Phone Rose Mary FISCHER, Sergo Cole Primary Care Physician [phone] [place] [facility] [place] 10[place]21 [facility] [address] [place], [place] [address] Allergies, Adverse Reactions, Alerts Substance Reaction Severity Status morphine ITCH DIARRHEA Active Latex powder eats up skin Active Vioxx heart problems Active trazodone DEPRESSION [...] (oldterm) 8 01/21/08 Given 1Result Comment: [01/22/2017] [facility] [id number] 2Admin Note: vis given dated 10/24/12 3Admin Note: vis given dated 10/01/11 4Admin Note: vis 5Admin Note: vis 6Admin Note: vis given: 10/27/2006 7Admin Note: vis given : 10/10/2005 8Admin Note: vis given 2007- Medications acetaminophen 500 mg oral tablet 2 tablet, By Mouth, 4 times a day, PRN NEEDED FOR PAIN, # 100 tablet, 1 Refills, Acute, 219:52:00 EDT, [facility], 157.48, cm, 10/11/20 9:39:00 EDT, Height Start Date: 10/26/20 Status: Ordered Alcohol Pads See Instructions, # 200 each, Refills 11, Tot. Refills 11, Maintenance, To cleans before injections5 x a day., 03/03/21 9:18:00 EST, E11.65, Compound, 157.48, cm, 03/01/21 15:54:00 EST, Height Start Date: 03/03/21 Stop Date: 02/26/22 Status: Ordered Irxqd-Rxjbya-Mohp 300 mg oral capsule 1 capsule, By Mouth, 2 times a day, NOT COVERED., # 60 capsule, 11 Refills, [facility], 157.48, cm, 01/27/21 9:30:00 EDT, Height Start Date: 01/30/21 Status: Ordered ammonium lactate 12% topical cream 1 application, Topically, 2 times a day, # 385 Gm, 5 Refills, Maintenance, 09/08/21 9:35:00 EDT, Cream, [facility]/pharmacy #[id number], Partial fill upon patient request if the prescription is for a schedule II opioid drug., 1 application Topically 2 times a day,... Start Date: 09/08/21 Stop Date: 03/07/22 Status: Ordered aspirin 81 mg oral delayed release tablet 1 tablet, By Mouth, Daily, # 30 tablet, 11 Refills, Maintenance, 06/21/20 17:44:00 EDT, [facility], 157.48, cm, 05/31/20 9:41:00 EST, Height Start Date: 06/21/20 Status: Ordered atorvastatin 80 mg oral tablet 1 tablet = 80 mg, By Mouth, Daily, replaces Simvastatin, # 90 tablet, 4 Refills, Maintenance, 06/02/21 14:22:00 EST, Tablet, [facility]/pharmacy #[id number], replaces simvastatin, 157.48, cm, 06/02/21 14:20:00 [...] tablet, 11 Refills, Maintenance, 08/19/20 16:26:00 EDT, [facility], 30, TAKE 1 TABLET BY MOUTH DAILY. [...] 6 Refills, Maintenance, 09/01/21 13:11:00 EDT, Gel, [facility]/pharmacy #[id number], 157.48, cm, 08/24/21 8:03:00 EDT, Height [...] 5 Refills, [facility]08, 30, USE 1 SPRAY IN EACH NOSTRIL [...] 3, Maintenance, use up to check blood [id number] per day. 90 DAY SUPPLY, E11.9, 03/03/21 [...] mL, 6 Refills, Maintenance, 09/18/21 16:43:00 EDT, [facility], Partial fill upon patient request if... Start Date: 09/18/21 Status: Ordered Lantus Solostar Pen 100 units/mL subcutaneous solution See Instructions, Take 80 units via Subcutaneous Infusion Daily at bedtime. E11.9., # 30 mL, 9 Refills, Maintenance, 08/24/21 9:25:00 EDT, [facility], Partial fill upon patient request if the prescription is for a schedule II opioid d... Start Date: 08/24/21 Status: Ordered Lantus Solostar Pen 100 units/mL subcutaneous solution See Instructions, Decreased to 60U once a day as of 12/29/19, # 30 mL, 9 Refills, Maintenance, 09/20/20 15:10:00 EDT, [facility], NEEDS 30 ML [...] 0 Refills, Maintenance, 09/08/21 9:35:00 EDT, Film, [facility]/pharmacy #[id number], Partial fill upon patient request if the prescription is for a schedule II opioid drug., 1patch Topically Daily, 157.48, cm, 08/24/21 8:03:00... Start Date: 09/08/21 Status: Ordered losartan 50 mg oral tablet 1 tablet, By Mouth, Daily, # 30 tablet, 2 Refills, [facility] 03219, 157.48, cm, 05/05/21 9:51:00 EST, Height Start Date: 05/12/21 Status: Ordered Lyrica 25 mg oral capsule See Instructions, 1 capsule By Mouth 1 time daily at bedtime. E11.9, # 30 each, 5 Refills, Maintenance, 09/18/21 12:21:00 EDT, Capsule, [facility]/pharmacy #[id number], Partial fill [...] 60 capsule, 2 Refills, 09/26/21 14:42:00 EDT, [facility]/pharmacy #[id number], 157.48, cm, 09/20/21 9:26:00 EDT, Height Start Date: 09/26/21 Status: Ordered oxyCODONE 10 mg oral tablet TAKE 1/2 TAB EVERY 12 HOURS NEEDED FOR SEVERE NECK/LOW BACK PAIN. DO NOT FILL UNTIL 05/01/21 Start Date: 06/02/21 Status: Ordered PEG-3350 with Electrolytes (Eqv-NuLYTELY) oral powder for reconstitution See Instructions, as directed, # 1 each, 0 Refills, Maintenance, 10/10/21 12:21:00 EDT, [id number], ok to sub for any gallon prep, as directed, 157.48, cm, 10/10/21 10:42:00 EDT, Height Start Date: 10/10/21 Status: Ordered Pen [place], 31 G x 8 mm BD Ultra [...] # 12 tablet, 7 Refills, [facility], 157.48, cm, 05/23/21 13:08:00 EST, Height Start Date: 06/02/21 Status: Ordered tiZANidine 4 mg oral capsule 1 capsule, By Mouth, 3 times a day, # 90 capsule, 3 Refills, [facility], 157.48, cm, 05/23/21 13:08:00 EST, Height Start Date: 06/01/21 Status: Ordered Topamax 25 mg oral tablet 2 tablet = 50 mg, By Mouth, Daily at bedtime, # 60 tablet, 6 Refills, Maintenance, 08/29/21 14:04:00 EDT, Tablet, [facility]/pharmacy #[id number], 157.48, cm, 08/24/21 8:03:00 EDT, Height Start Date: 08/29/21 Stop Date: 03/27/22 Status: Ordered Trulicity Pen 3 mg/0.5 mL subcutaneous solution See Instructions, INJECT 0.5ML SUBCUTANEOUSLY EVERY WEEK, ROTATE INJECTION SITES, # 2 mL, 5 Refills, 08/24/21 9:20:00 EDT, [facility], 157.48, cm, 08/24/21 [...] Active *Briana Garces, Care Coor dinator, ICP [phone](Confirmed) Active Reflux(Confirmed) Active Hepatic steatosis(Confirmed) Active -EF [...]
--- OUTSIDE RECORDS SUMMARY | 2024-01-23 14:41 | XMS_ITS | Continuity of Care Document ---
Author Organization [facility] Address [address] [place] [address]- Care Team Providers Care Api Architect Name Role Phone Sergo Bazzi MD Primary Care Physician Encounter [facility] [place] Date(s): 05/18/21 - 05/25/21 [facility] [address] [place] [address]- Attending Physician: Daysi Scott MD Referring Physician: Sergo Bazzi MD Allergies, Adverse Reactions, Alerts Substance Reaction Severity Status morphine ITCH DIARRHEA Active Neurontin mental status changes Active Ultram [...] [01/22/2017] [facility] [id number] 2Admin Note: vis given dated 10/24/12 3Admin Note: vis given dated 10/01/11 4Admin Note: vis 5Admin Note: vis 6Admin Note: vis given: 10/27/2006 7Admin Note: vis given : 10/10/2005 8Admin Note: vis given 2007- Medications acetaminophen 500 mg oral tablet 2 tablet, By Mouth, 4 times a day, PRN NEEDED FOR PAIN, # 100 tablet, 1 Refills, Acute, 219:52:00 EDT, [facility], 157.48, cm, 10/11/20 9:39:00 EDT, Height Start Date: 10/26/20 Status: Ordered Acyclovir Maintenance, 11/13/18 15:06:54 EDT Start Date: 11/13/18 Status: Ordered Alcohol Pads See Instructions, # 200 each, Refills 11, Tot. Refills 11, Maintenance, To cleans before injections5 x a day., 03/03/21 9:18:00 EST, E11.65, Compound, 157.48, cm, 03/01/21 15:54:00 EST, Height Start Date: 03/03/21 Stop Date: 02/26/22 Status: Ordered Wnsym-Rnmvrk-Lgut 300 mg oral capsule 1 capsule, By Mouth, 2 times a day, NOT COVERED., # 60 capsule, 11 Refills, [facility], 157.48, cm, 01/27/21 9:30:00 EDT, Height Start Date: 01/30/21 Status: Ordered ammonium lactate 12% topical cream 1 application, Topically, 2 times a day, # 385 Gm, 5 Refills, Maintenance, 12/19/20 14:08:00 EDT, Cream, [facility]/pharmacy #[id number], Partial fill upon patient request if the [...] Refills, Maintenance, 06/21/20 17:44:00 EDT, [facility], 157.48, cm, 05/31/20 9:41:00 EST, Height Start Date: 06/21/20 Status: Ordered atorvastatin 80 mg oral tablet 1 tablet = 80 mg, By Mouth, Daily, replaces Simvastatin, # 90 tablet, 4 Refills, Maintenance, 02/23/20 11:05:00 EST, Tablet, [facility]/pharmacy #4471, replaces simvastatin, 157.48, cm, 01/25/20 15:23:00 EDT, Height Start Date: 02/23/20 Stop Date: 05/18/21 Status: Ordered BD ultra fine III pen needles [id number] BD ultra fine III pen needles [id number], See Instructions, # 360 each, Refills 3, [...] # 57 Gm, 4 Refills, [facility], 30, APPLY TO AFFECTED AREA TWICE A DAY, 157.48, cm, 11/11/20 9:37:00 EDT, Height Start Date: 01/02/21 Status: Ordered Daily David oral tablet 1 tablet, By Mouth, Daily, INSTR:TAKE IT 2 HOURS SEPARATE FROM ORLISTAT ([place]), # 30 tablet, 11 Refills, Maintenance, 08/19/20 16:26:00 EDT, [facility], 30, TAKE 1 TABLET BY MOUTH DAILY. [...] 6 Refills, Maintenance, 09/02/20 12:50:00 EDT, Gel, [facility]/pharmacy #4471, 157.48, cm, [...] EST, Compound Start Date: 05/12/21 Status: Ordered docusate sodium 100 mg oral tablet 1 tablet = 100 mg, By Mouth, 2 times a day, PRN for constipation, # 100 tablet, 5 Refills, Maintenance, 01/07/20 14:00:00 EDT, Tablet, [facility]/pharmacy #4471, 157.48, cm, 12/29/19 15:55:00 EDT, Height [...] EVERY DAY, # 16 mL, 5 Refills, [facility], 30, USE 1 SPRAY IN EACH NOSTRIL [...] 3, Maintenance, use up to check blood [id number] per day. 90 DAY SUPPLY, E11.9, 03/03/21 [...] EST, Supply Start Date: 05/05/21 Status: Ordered heating pad heating pad, See Instructions, # 1 each, Refills 0, Tot. Refills 0, Maintenance, m77.50 tendonititsuse in 10-15 min intervals with ice do not leave on for risk of foot injury tendonitis, 12/08/19 9:56:00 EDT, Supply Start Date: 12/08/19 Status: Ordered Insulin Lispro KwikPen 100 units/mL injectable solution 10-25 units, Subcutaneous Injection, 3 times a day before meals, according to sliding scale , max daily dose 75 units rotate injection sites, # 75 mL, 3 Refills, Maintenance, 05/09/21 10:32:00 EST, [facility], Partial fill upon pat... Start Date: 05/09/21 Status: Ordered lactase 3000 u oral tablet [...] Maintenance, 12/19/20 14:08:00 EDT, Film, [facility]/pharmacy #[id number], Partial fill upon patient request if the prescription is for a schedule II opioid drug., 1 patch Topically Daily, 157.48, cm, 11/11/20 9:37:0... Start Date: 12/19/20 Status: Ordered losartan 50 mg oral tablet 1 tablet, By Mouth, Daily, # 30 tablet, 2 Refills, [facility] 05097, 157.48, cm, 05/05/21 9:51:00 EST, Height Start Date: 05/12/21 Status: Ordered mirtazapine 15 mg oral tablet TAKE 1 TABLET BY MOUTH EVERY DAY IN THE EVENING Start Date: 10/14/18 Status: Ordered omeprazole 20 mg oral delayed release tablet 1 tablet = 20 mg, By Mouth, 2 times a day, do not crush or chew, # 60 tablet, 1 Refills, Maintenance, 05/23/21 13:30:00 EST, EC Tablet, [facility]/pharmacy #[id number], Partial fill upon patient request if the prescription is for a schedule II opioid drug., 157.48... Start Date: 05/23/21 Status: Ordered oxyCODONE 5 mg oral tablet 5 mg, 1, tablet, By Mouth, Every 12 hours, PRN, Refills 0, Tot. Refills 0, Maintenance, as needed for pain, 02/16/19 14:51:00 EST, Partial fill upon patient request Start Date: 02/16/19 Status: Ordered Pen [place], 31 G x 8 mm BD Ultra [...] a day, # 90 capsule, 1 Refills, [facility] 39001, 157.48, cm, 03/21/21 13:21:00 EST, Height Start [...] 12/08/21 15:26:00 EDT, 12/13/20 15:26:00 EDT, Solution, [facility], E11.65, 157.48, cm, 04/27/19 15:43:00 EST, Height Start Date: 12/13/20 Stop Date: 12/08/21 Status: Ordered Trulicity Pen 1.5 mg/0.5 mL subcutaneous solution 0.5 mL = 1.5 mg, Subcutaneous Injection, Every Saturday, for 90 days, E11.9, # 7.5 mL, 3 Refills, Hard Stop 12/03/22 15:26:00 EDT, 12/08/21 15:26:00 EDT, Solution, [facility], E11.65, 157.48, cm, 03/04/20 14:14:00 EST, Height Start Date: 12/08/21 Stop Date: 12/03/22 Status: Ordered Trulicity Pen 3 mg/0.5 mL subcutaneous solution 0.5 mL = 3 mg, Subcutaneous Injection, Every week, rotate injection sites, # 2 mL, 6 Refills, Maintenance, 03/01/21 16:55:00 EST, Solution, [facility], Partial fill upon patient [...] fo r HSV(Confirmed) 5 02/20/10 Active *Briana Jassoreji, Care Coor dinator, ICP [phone](Confirmed) Active Reflux(Confirmed) Active Hepatic steatosis(Confirmed) Active -EF [...] oldest [Reference Range]: 1 Height 157.48 cm (05/18/21 11:19 AM) Oxygen Saturation [94-100 %] 98 % (05/18/21 11:19 AM) Pulse Rate [55-90 bpm] 84 bpm (05/18/21 11:19 AM) Blood Pressure [90-138/55-84 mm Hg] 144/ 77mm Hg *H* (05/18/21 11:19 AM) Respiratory Rate [16-30 br/min] 20 br/mi n (05/18/21 11:19 AM) Temperature [96.8-100.4 DegF] 98.5 DegF (05/18/21 11:19 AM) Mode of Delivery (Oxygen) Room air (05/18/21 11:19 AM) Blood pressure sites Arm, left (05/18/21 11:19 AM) Temperature Route Temporal (05/18/21 11:19 AM) Social History Social History Type Response Smoking Status Never smoker entered on: 11/10/13 Sex Female
--- OUTSIDE RECORDS SUMMARY | 2024-01-23 14:41 | XMS_ITS | Continuity of Care Document ---
Author Organization [facility] Address [address] [place] [address]- Care Team Providers Care Transfer Operator Name Role Phone Sergo Bazzi MD Primary Care Physician [facility] [facility] Date[facility]): 03/03/21 - 04/20/21 [facility] [address], [place] [address] Attending Physician: Sergo Bazzi MD Admitting [...] 1Result Comment: [01/22/2017] [facility] [id number] 2Admin Note: vis given dated 10/24/12 3Admin Note: vis given dated 10/01/11 4Admin Note: vis 5Admin Note: vis 6Admin Note: vis given: 10/27/2006 7Admin Note: vis given : 10/10/2005 8Admin Note: vis given 2007- Medications acetaminophen 500 mg oral tablet 2 tablet, By Mouth, 4 times a day, PRN NEEDED FOR PAIN, # 100 tablet, 1 Refills, Acute, 219:52:00 EDT, [facility], 157.48, cm, 10/11/20 9:39:00 EDT, Height Start Date: 10/26/20 Status: Ordered Acyclovir Maintenance, 11/13/18 15:06:54 EDT Start Date: 11/13/18 Status: Ordered Admelog SoloStar 100 units/mL injectable solution 10 - 25 units, Subcutaneous Infusion, 3 times a day with meals, Inject via sliding scale, Max Dailydose 75u, 90 day supply, E11.9, # 90 mL, 5 Refills, Maintenance, 09/02/19 13:54:00 EDT, [facility], E11.9, 157.48, cm, 04/27/19 15:43:... Start Date: 09/02/19 Status: Ordered Alcohol Pads See Instructions, # 200 each, Refills 11, Tot. Refills 11, Maintenance, To cleans before injections5 x a day., 03/03/21 9:18:00 EST, E11.65, Compound, 157.48, cm, 03/01/21 15:54:00 EST, Height Start Date: 03/03/21 Stop Date: 02/26/22 Status: Ordered Nphsj-Uyygtl-Qzql 300 mg oral capsule 1 capsule, By Mouth, 2 times a day, NOT COVERED., # 60 capsule, 11 Refills, [facility], 157.48, cm, 01/27/21 9:30:00 EDT, Height Start Date: 01/30/21 Status: Ordered ammonium lactate 12% topical cream 1 application, Topically, 2 times a day, # 385 Gm, 5 Refills, Maintenance, 12/19/20 14:08:00 EDT, Cream, [facility]/pharmacy #[id number], Partial fill upon patient [...] Refills, Maintenance, 06/21/20 17:44:00 EDT, [facility], 157.48, cm, 05/31/20 9:41:00 EST, Height Start Date: 06/21/20 Status: Ordered atorvastatin 80 mg oral tablet 1 tablet = 80 mg, By Mouth, Daily, replaces Simvastatin, # 90 tablet, 4 Refills, Maintenance, 02/23/20 11:05:00 EST, Tablet, [facility]/pharmacy #[id number], replaces simvastatin, 157.48, cm, 01/25/20 15:23:00 EDT, Height Start Date: 02/23/20 Stop Date: 05/18/21 Status: Ordered BD ultra fine III pen needles [id number] BD ultra fine III pen needles [id number], See Instructions, # 360 each, Refills 3, [...] A DAY, # 57 Gm, 4 Refills, [facility], 30, APPLY TO AFFECTED AREA TWICE A DAY, 157.48, cm, 11/11/20 9:37:00 EDT, Height Start Date: 01/02/21 Status: Ordered Daily David oral tablet 1 tablet, By Mouth, Daily, INSTR:TAKE IT 2 HOURS SEPARATE FROM ORLISTAT ([place]), # 30 tablet, 11 Refills, Maintenance, 08/19/20 16:26:00 EDT, [facility], 30, TAKE 1 TABLET BY MOUTH DAILY. [...] 6 Refills, Maintenance, 09/02/20 12:50:00 EDT, Gel, [facility]/pharmacy #[id number], 157.48, cm, 05/31/20 9:41:00 EST, Height [...] EVERY DAY, # 16 mL, 5 Refills, [facility], 30, USE 1 SPRAY IN EACH NOSTRIL [...] 3, Maintenance, use up to check blood [id number] per day. 90 DAY SUPPLY, E11.9, 03/03/21 [...] mL, 3 Refills, Maintenance, 01/13/21 8:58:00 EDT, [facility], Partial fill upon patient [...] mL, 9 Refills, Maintenance, 09/20/20 15:10:00 EDT, [facility], NEEDS 30 ML FOR 30 [...] 0 Refills, Maintenance, 12/19/20 14:08:00 EDT, Film, [facility]/pharmacy #[id number], Partial fill upon patient request if the prescription is for a schedule II opioid drug., 1 patch Topically Daily, 157.48, cm, 11/11/20 9:37:0... Start Date: 12/19/20 Status: Ordered losartan 50 mg oral tablet 1 tablet, By Mouth, Daily, # 30 tablet, 5 Refills, Maintenance, 12/02/20 5:43:00 [id number], cm, 11/11/20 9:37:00 EDT, [...] Start Date: 02/16/19 Status: Ordered Pen [place], 31 G x 8 mm BD Ultra [...] a day, # 90 capsule, 1 Refills, [facility]151, 157.48, cm, 03/21/21 13:21:00 EST, Height Start Date: 03/27/21 Status: Ordered Topamax 25 mg oral tablet 2 tablet = 50 mg, By Mouth, Daily at bedtime, # 60 tablet, 6 Refills, Maintenance, 04/21/20 13:35:00 EST, [id number] 157[facility], cm, 03/04/20 14:14:00 EST, Height Start Date: 04/21/20 Stop Date: 11/17/20 Status: Ordered Trulicity Pen 1.5 mg/0.5 mL subcutaneous solution 0.5 mL = 1.5 mg, Subcutaneous Injection, Every Saturday, for 90 days, # 7.5 mL, 3 Refills, Hard Stop 12/08/21 15:26:00 EDT, 12/13/20 15:26:00 EDT, Solution, [facility], E11.65, 157.48, cm, 04/27/19 15:43:00 EST, Height Start Date: 12/13/20 Stop Date: 12/08/21 Status: Ordered Trulicity Pen 1.5 mg/0.5 mL subcutaneous solution 0.5 mL = 1.5 mg, Subcutaneous Injection, Every Saturday, for 90 days, E11.9, # 7.5 mL, 3 Refills, Hard Stop 12/03/22 15:26:00 EDT, 12/08/21 15:26:00 EDT, Solution, [facility], E11.65, 157.48, cm, 03/04/20 14:14:00 EST, Height Start Date: 12/08/21 Stop Date: 12/03/22 Status: Ordered Trulicity Pen 3 mg/0.5 mL subcutaneous solution 0.5 mL = 3 mg, Subcutaneous Injection, Every week, rotate injection sites, # 2 mL, 6 Refills, Maintenance, 03/01/21 16:55:00 EST, Solution, [facility], Partial fill upon patient request if the prescription is for a schedule II opioid... Start Date: 03/01/21 Status: Ordered Vascepa 1 g oral capsule 2 capsule = 2 Gm, By Mouth, 2 times a day, # 360 capsule, 5 Refills, Maintenance, 05/03/20 15:59:00EST, Capsule, [facility]/pharmacy #[id number], 157.48, cm, 03/04/20 14:14:00 [...] Active *Briana Garces, Care Coor dinator, ICP [phone](Confirmed) Active Reflux(Confirmed) Active Hepatic steatosis(Confirmed) Active -EF [...]
--- OUTSIDE RECORDS SUMMARY | 2024-01-23 14:41 | XMS_ITS | Continuity of Care Document ---
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 Name Role Phone Rose Mary FISCHER, Sergo Cole Primary Care Physician [phone] Encounter [facility] [place] Date(s): 04/13/22 - 05/13/22 [facility] [address] [place] [address]- [place] Allergies, Adverse Reactions, Alerts Substance Reaction [...] (oldterm) 8 01/21/08 Given 1Result Comment: [01/22/2017] [facility] [id number] 2Admin Note: vis given dated 10/24/12 3Admin Note: vis given dated 10/01/11 4Admin Note: vis 5Admin Note: vis 6Admin Note: vis given: 10/27/2006 7Admin Note: vis given : 10/10/2005 8Admin Note: vis given 2007- Medications acetaminophen 500 mg oral tablet 2 tablet, By Mouth, 4 times a day, PRN NEEDED FOR PAIN, # 100 tablet, 1 Refills, Acute, 219:52:00 EDT, [facility], 157.48, cm, 10/11/20 9:39:00 EDT, Height Start Date: 10/26/20 Status: Ordered Alcohol Pads See Instructions, # 200 each, Refills 11, Tot. Refills 11, Maintenance, To cleans before injections5 x a day., 03/03/21 9:18:00 EST, E11.65, Compound, 157.48, cm, 03/01/21 15:54:00 EST, Height Start Date: 03/03/21 Stop Date: 02/26/22 Status: Ordered Mwxsq-Ajpzzq-Lcco 300 mg oral capsule 1 capsule, By Mouth, 2 times a day, NOT COVERED., # 60 capsule, 11 Refills, [facility], 157.48, cm, 01/27/21 9:30:00 EDT, Height Start Date: 01/30/21 Status: Ordered ammonium lactate 12% topical cream 1 application, Topically, 2 times a day, # 385 Gm, 3 Refills, Maintenance, 04/05/22 13:30:00 EST, Cream, [facility]/pharmacy #[id number], Partial fill upon patient [...] Gm, 4 Refills, Maintenance, 03/05/22 13:29:00 EST, [facility], 30, APPLY TO AFFECTED AREA TWICE A [...] tablet, 11 Refills, Maintenance, 08/19/20 16:26:00 EDT, [facility], 30, TAKE 1 TABLET BY MOUTH DAILY. [...] Details, Route to Pharmacy Electronically, [facility]/pharmacy... Start Date: 05/02/22 Status: Ordered diclofenac 1% topical gel See Instructions, APPLY TOPICALLY 4 TIMES A DAY NOT TO EXCEED 16 GRAMS/DAY/SINGLE JOINT OF LOWER EXTREMITIES, # 100 Gm, 6 Refills, Maintenance, 03/19/22 9:28:00 EST, [facility], 30, APPLY TOPICALLY 4 TIMES A DAY NOT TO EXCEED 16 GRAMS/DAY/SINGLE... Start Date: 03/19/22 Status: Ordered docusate sodium 100 mg oral capsule 100 mg, 1, capsule, By Mouth, 2 times a day, PRN, # 60 capsule, Refills 5, Tot. Refills 5, Maintenance, as needed for constipation, 11/10/21 9:17:00 EDT, Route to Pharmacy Electronically, [facility]/pharmacy #[id number], Partial fill upon patient [...] Refills, Maintenance, 03/22/22 16:35:00 EST, [facility], 30, INHALE 1 PUFF BY MOUTH TWICE A DAY, 157.5, cm, 03/22/22 13:25:00 EST, Height Start Date: 03/22/22 Status: Ordered fluticasone 50 mcg/inh nasal spray See Instructions, USE 1 SPRAY IN EACH NOSTRIL EVERY DAY, # 16 mL, 5 Refills, 12/29/21 15:10:00 EDT,[facility]/pharmacy #[id number], USE 1 SPRAY IN [...] mL, 3 Refills, Maintenance, 03/22/22 15:43:00 EST, [facility], Partial fill upon patie... Start Date: 03/22/22 Status: Ordered Lantus Solostar Pen 100 units/mL subcutaneous solution See Instructions, Decreased to 60U once a day as of 12/29/19, # 30 mL, 9 Refills, Maintenance, 09/20/20 15:10:00 EDT, [facility], NEEDS 30 ML FOR 30 DAY SUPPLY E11.9, 157.48, cm, 05/31/20 9:41:00 EST, Height Start Date: 09/20/20 Status: Ordered Lantus Solostar Pen 100 units/mL subcutaneous solution See Instructions, Take 80 units via Subcutaneous Infusion Daily at bedtime. E11.9., # 30 mL, 9 Refills, Maintenance, 03/22/22 15:41:00 EST, [facility], Partial fill upon patient request if the prescription is for a schedule II opioid... Start Date: 03/22/22 Status: Ordered lidocaine 5% topical ointment See Instructions, APPLY TO AFFECTED AREA 3 TIMES A DAY, # 35.44 Gm, 11 Refills, Maintenance, 02/28/22 8:51:00 EST, [facility]/pharmacy #[id number], 30, APPLY TO AFFECTED AREA 3 TIMES A DAY, 157.5, cm, 02/21/22 14:36:00 EST, Height Start Date: 02/28/22 Status: Ordered losartan 50 mg oral tablet 1 tablet, By Mouth, Daily, # 30 tablet, 5 Refills, 12/08/21 16:06:00 EDT, [facility]/pharmacy #[id number], 157.5, cm, 11/29/21 15:59:00 EDT, Height Start Date: 12/08/21 Status: Ordered Lyrica 25 mg oral capsule See Instructions, 1 capsule By Mouth 1 time daily at bedtime. E11.9, # 30 each, 5 Refills, Maintenance, 05/01/22 18:04:00 EST, Capsule, [facility]/pharmacy #[id number], Partial fill upon patient request if the prescription is for a schedule II opioid drug., 157.5,... Start Date: 05/01/22 Status: Ordered mirtazapine 15 mg oral tablet 1 tablet = 15 mg, By Mouth, Daily at bedtime, # 30 tablet, 4 Refills, Maintenance, 05/02/22 14:02:00 EST, Tablet, [facility]/pharmacy #[id number], Partial fill upon patient [...] Refills, Maintenance, 03/30/22 10:50:00 EST, EC Tablet, [facility]/pharmacy #[id number], Partial fill upon patient request if the prescription is for a schedule II opioid drug., 157.5,... Start Date: 03/30/22 Status: Ordered oxyCODONE 10 mg oral tablet TAKE 1/2 TAB EVERY 12 HOURS NEEDED FOR SEVERE NECK/LOW BACK PAIN. DO NOT FILL UNTIL 05/01/21 Start Date: 06/02/21 Status: Ordered Pen [place], 31 G x 8 mm BD Ultra [...] 1 Refills, Maintenance, 04/11/22 11:31:00 EST, Tablet, [facility]/pharmacy #[id number], Partial fill upon patient request if the prescription is for a schedule II opioid drug., 157.5, cm, 04/11/22 10:50:00 EST, Height Start Date: 04/11/22 Status: Ordered QUEtiapine 25 mg oral tablet 25 mg, 1, tablet, By Mouth, 2 times a day, # 60 tablet, Refills 4, Tot. Refills 4, Maintenance, 05/02/22 14:40:00 EST, Route to Pharmacy Electronically, [facility]/pharmacy #[id number], Partial fill upon patient request if the prescription is for a schedule II opi... Start Date: 05/02/22 Status: Ordered plant supervisor grabber tool plant supervisor grabber tool, See Instructions, # 1 each, Refills 0, Tot. Refills 0, Maintenance, please dispense one plant supervisor grabber tool, ICD 10 M54.6, length of use 1 month, 04/12/22 10:13:00 EST, Supply Start Date: 04/12/22 Status: Ordered SUMAtriptan 25 mg oral tablet 1 tablet, By Mouth, Daily, PRN NEEDED FOR MIGRAINES, for 30 days, MAY RPT DOSE AFTER 2 HRS TO MAX OF 2, # 12 tablet, 7 Refills, Physician Stop 12/15/22 14:36:00 EDT, 04/19/22 14:36:00 EST, [facility]/pharmacy #[id number], 157.5, cm, 04/11/22 10:50:00 EST, Height Start Date: 04/19/22 Stop Date: 12/15/22 Status: Ordered Topamax 25 mg oral tablet 3 tablet = 75 mg, By Mouth, Daily at bedtime, # 90 tablet, 6 Refills, Maintenance, 04/19/22 14:35:00 EST, Tablet, [facility]/pharmacy #[id number], 157.5, cm, 04/11/22 10:50:00 EST, Height Start Date: 04/19/22 Stop Date: 8/17/23 Status: Ordered Trulicity Pen 3 mg/0.5 mL subcutaneous solution See Instructions, INJECT 0.5ML SUBCUTANEOUSLY EVERY WEEK, ROTATE INJECTION SITES, # 2 mL, 5 Refills, 01/23/22 16:33:00 EDT, [facility], 157.5, cm, 01/20/22 13:38:00 EDT, Height Start Date: 01/23/22 Status: Ordered Trulicity Pen 4.5 mg/0.5 mL subcutaneous solution See Instructions, 4.5 mg Subcutaneous Infusion weekly. E11.9, # 4 each, 5 Refills, Maintenance, 03/22/22 15:41:00 EST, [facility], Partial fill upon patient request if the prescription is for a schedule II opioid drug., 157.5, cm, ... 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 RN Member Role: Primary Care Nurse Care Team Related Persons Name: LB HENLEY Address: home [address] [address] Name: LB HENLEY Address: [address] [place] [address] Name: MILENA CUBA Address: home [address] [place] [address]
--- OUTSIDE RECORDS SUMMARY | 2024-01-23 14:41 | XMS_ITS | Continuity of Care Document ---
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 Role Phone Sergo Bazzi MD Primary Care Physician [phone] Encounter [facility] Date(s): 02/22/20 - 03/23/20 [facility] [address], [place] [address] Allergies, Adverse Reactions, Alerts Substance [...] 1Result Comment: [01/22/2017] [facility] [id number] 2Admin Note: vis given dated 10/24/12 3Admin [...] mL, 5 Refills, Maintenance, 09/02/19 13:54:00 EDT, [facility], E11.9, 157.48, cm, 04/27/19 [...] tablet, 3 Refills, Maintenance, 02/01/20 15:26:00 EST, [facility]/pharmacy #[id number], 157.48, cm, 01/25/20 15:23:00 [...] tablet, 5 Refills, Maintenance, 12/21/19 17:01:00 EDT, [facility]/pharmacy#4471, 157.48, cm, 04/27/19 15:43:00 EST, Height Start Date: 12/21/19 Status: Ordered atorvastatin 80 mg oral tablet 1 tablet = 80 mg, By Mouth, Daily, replaces Simvastatin, # 90 tablet, 4 Refills, Maintenance, 02/23/20 11:05:00 EST, Tablet, [facility]/pharmacy #[id number], replaces simvastatin, 157.48, cm, 01/25/20 15:23:00 EDT, Height Start Date: 02/23/20 Stop Date: 05/18/21 Status: Ordered atorvastatin 80 mg oral tablet 1 tablet = 80 mg, By Mouth, Daily, for 90 days, replaces Simvastatin, # 90 tablet, 4 Refills, Hard Stop 04/01/21 14:01:00 EST, 01/07/20 14:01:00 EDT, Tablet, [facility]/pharmacy #[id number], replaces simvastatin,157.48, cm, 12/29/19 15:55:00 EDT, Height Start Date: 01/07/20 Stop Date: 04/01/21 Status: Ordered BD ultra fine III pen needles [id number] BD ultra fine III pen needles [id number], See Instructions, # 360 each, Refills 3, [...] 60 Gm, 4 Refills, Acute, [facility], 30, APPLY TO AFFECTED AREA TWICE A [...] 6 Refills, Maintenance, 12/24/19 9:18:00 EDT, Gel, [facility]/pharmacy #[id number], 157.48, cm, 04/27/19 15:43:00 EST, Height [...] 5 Refills, Maintenance, 01/07/20 14:00:00 EDT, Tablet, [facility]/pharmacy #[id number], 157.48, cm, 12/29/19 15:55:00 [...] Gm, 1 Refills, Maintenance, 12/10/19 12:46:00 EDT, [facility]/pharmacy #[id number], 1 sprays Nares, Both [...] 3, Maintenance, use up to check blood [id number] per day. 90 DAY SUPPLY, E11.9, 02/29/20 [...] mL, 11 Refills, Maintenance, 09/02/19 13:55:00 EDT, [facility], NEEDS 30 ML FOR [...] 11 Refills, Maintenance, 05/15/19 15:00:00 EST, Ointment, [facility]/pharmacy #[id number], 1 application Topically 3 times a day,x30 days, 157.48, cm, 04/27/19 15:43:00 EST, Height Start Date: 05/15/19 Stop Date: 05/09/20 Status: Ordered losartan 50 mg oral tablet 50 mg, 1, tablet, By Mouth, Daily, can substitute 25mg tabs x2 if needed, # 30 tablet, Refills 5, Tot. Refills 5, Maintenance, 01/11/20 11:21:00 EDT, Route to Pharmacy Electronically, [facility]/pharmacy #[id number], 157.48, cm, 12/29/19 15:55:00 [...] 4 Refills, Maintenance, 08/14/19 8:49:00 EDT, Tablet, [facility]/pharmacy #[id number], 1 tablet By Mouth [...] request Start Date: 02/16/19 Status: Ordered Pen [place], 31 G x 8 mm BD Ultra [...] 04/23/20 11:05:00 EST, 02/23/20 11:05:00 EST, Tablet, [facility]/pharmacy #[id number], 157.48, cm, 01/25/20... Start Date: 02/23/20 [...] 12/08/21 15:26:00 EDT, 12/13/20 15:26:00 EDT, Solution, [facility], E11.65, 157.48, cm, 04/27/19 15:43:00 EST, Height Start Date: 12/13/20 Stop Date: 12/08/21 Status: Ordered Trulicity Pen 1.5 mg/0.5 mL subcutaneous solution 0.5 mL = 1.5 mg, Subcutaneous Injection, Every Saturday, E11.9, # 7.5 mL, 3 Refills, Maintenance, 12/08/21 15:26:00 EDT, Solution, [facility], E11.65, 157.48, cm, 03/04/20 14:14:00 EST, Height Start Date: 12/08/21 Stop Date: 12/03/22 Status: Ordered Trulicity Pen 1.5 mg/0.5 mL subcutaneous solution 0.5 mL = 1.5 mg, Subcutaneous Injection, Every Saturday, for 90 days, # 6.5 mL, 5 Refills, Hard Stop 12/13/20 15:26:00 EDT, 06/22/19 15:26:00 EDT, Solution, [facility]/pharmacy #[id number], E11.65, 157.48, cm, 04/27/19 15:43:00 EST, Height Start Date: 06/22/19 Stop Date: 12/13/20 Status: Ordered Vascepa 1 g oral capsule 2 capsule = 2 Gm, By Mouth, 2 times a day, # 360 capsule, 0 Refills, Maintenance, 01/25/20 15:40:00EDT, Capsule, [facility]/pharmacy #[id number], 157.48, cm, 01/25/20 15:23:00 [...] Active *Briana Garces, Care Coor dinator, ICP [phone](Confirmed) Active Reflux(Confirmed) Active 30469 -EF 60-65%. No wall motion abnormalities, Does [...]
--- OUTSIDE RECORDS SUMMARY | 2024-01-23 14:41 | XMS_ITS | Continuity of Care Document ---
Author Organization [facility] Address [address] [place] [address]- Care Team Providers Care Manager Subway Name Role Phone Rose Mary FISCHER, Sergo Cole Primary Care Physician [phone] [place] [facility] [place] [facility] [address] [place], [place] [address] Allergies, Adverse Reactions, Alerts Substance [...] 8 01/21/08 Given 1Result Comment: [01/22/2017] [facility] [id number] 2Admin Note: vis given dated 10/24/12 3Admin Note: vis given dated 10/01/11 4Admin Note: vis 5Admin Note: vis 6Admin Note: vis given: 10/27/2006 7Admin Note: vis given : 10/10/2005 8Admin Note: vis given 2007- Medications acetaminophen 500 mg oral tablet 2 tablet, By Mouth, 4 times a day, PRN NEEDED FOR PAIN, # 100 tablet, 1 Refills, Acute, 219:52:00 EDT, [facility], 157.48, cm, 10/11/20 9:39:00 EDT, Height Start Date: 10/26/20 Status: Ordered Alcohol Pads See Instructions, # 200 each, Refills 11, Tot. Refills 11, Maintenance, To cleans before injections5 x a day., 03/03/21 9:18:00 EST, E11.65, Compound, 157.48, cm, 03/01/21 15:54:00 EST, Height Start Date: 03/03/21 Stop Date: 02/26/22 Status: Ordered Wdpdd-[id number]-Yyzx 300 mg oral capsule 1 capsule, By Mouth, 2 times a day, NOT COVERED., # 60 capsule, 11 Refills, [facility], 157.48, cm, 01/27/21 9:30:00 EDT, Height Start Date: 01/30/21 Status: Ordered ammonium lactate 12% topical cream 1 application, Topically, 2 times a day, # 385 Gm, 3 Refills, Maintenance, 04/05/22 13:30:00 EST, Cream, [facility]/pharmacy #[id number], Partial fill upon patient request [...] Gm, 4 Refills, Maintenance, 03/05/22 13:29:00 EST, [facility], 30, APPLY TO AFFECTED AREA TWICE A [...] tablet, 11 Refills, Maintenance, 08/19/20 16:26:00 EDT, [facility], 30, TAKE 1 TABLET BY MOUTH DAILY. [...] Replace Required Details, Route to Pharmacy Electronically, [facility]/pharmacy... Start Date: 05/02/22 Status: Ordered diclofenac 1% topical gel See Instructions, APPLY TOPICALLY 4 TIMES A DAY NOT TO EXCEED 16 GRAMS/DAY/SINGLE JOINT OF LOWER EXTREMITIES, # 100 Gm, 6 Refills, Maintenance, 03/19/22 9:28:00 EST, [facility], 30, APPLY TOPICALLY 4 TIMES A DAY NOT TO EXCEED 16 GRAMS/DAY/SINGLE... Start Date: 03/19/22 Status: Ordered docusate sodium 100 mg oral capsule See Instructions, TAKE 1 CAPSULE BY MOUTH TWICE A DAY NEEDED FOR CONSTIPATION, # 60 capsule, 5 Refills, Maintenance, 07/03/22 18:20:00 EDT, [facility]/pharmacy #[id number], Duplicate Rx. Original sent 07/03/22 with routing error. Re- sending to pharmacy, 157.5, cm... Start Date: 07/03/22 Status: Ordered docusate sodium 100 mg oral capsule 100 mg, 1, capsule, By Mouth, 2 times a day, PRN, # 60 capsule, Refills 5, Tot. Refills 5, Maintenance, as needed for constipation, 06/12/22 9:52:00 EDT, Route to Pharmacy Electronically, [facility]/pharmacy #[id number], Partial fill upon patient request [...] each, 0 Refills, Maintenance, 03/22/22 16:35:00 EST, [facility], 30, INHALE 1 PUFF BY MOUTH TWICE A DAY, 157.5, cm, 03/22/22 13:25:00 EST, Height Start Date: 03/22/22 Status: Ordered fluticasone 50 mcg/inh nasal spray See Instructions, SPRAY 1 SPRAY INTO EACH NOSTRIL EVERY DAY, # 16 mL, 5 Refills, Maintenance, 07/05/22 16:20:00 EDT, [facility], 30, SPRAY 1 SPRAY INTO EACH NOSTRIL [...] mL, 6 Refills, Maintenance, 06/12/22 10:00:00 EDT, [facility], Partial fill upon patie... Start Date: 06/12/22 Status: Ordered Lantus Solostar Pen 100 units/mL subcutaneous solution See Instructions, Take 45 units in the AM and 45 units daily at bedtime. E11.9., # 30 mL, 9 Refills, Maintenance, 06/19/22 16:50:00 EDT, [facility], Partial fill upon patient requestif the prescription is for a schedule II opioid lucas... Start Date: 06/19/22 Status: Ordered lidocaine 5% topical ointment See Instructions, APPLY TO AFFECTED AREA 3 TIMES A DAY, # 35.44 Gm, 11 Refills, Maintenance, 02/28/22 8:51:00 EST, [facility]/pharmacy #[id number], 30, APPLY TO AFFECTED AREA 3 TIMES A DAY, 157.5, cm, 02/21/22 14:36:00 EST, Height Start Date: 02/28/22 Status: Ordered lidocaine 5% topical ointment See Instructions, APPLY TO AFFECTED AREA 3 TIMES A DAY, # 35.44 Gm, 11 Refills, Maintenance, 07/03/22 18:22:00 EDT, [facility]/pharmacy #[id number], 30, Duplicate Rx. Original sent 07/03/22 with routing error. Re-sending to pharmacy, APPLY TO AFFECTED AREA 3 TIMES A... Start Date: 07/03/22 Status: Ordered losartan 50 mg oral tablet 1 tablet, By Mouth, Daily, # 30 tablet, 5 Refills, Maintenance, 05/30/22 16:26:00 EST, [facility]139, 157.5, cm, 05/09/22 10:05:00 EST, Height Start Date: 05/30/22 Status: Ordered Lyrica 25 mg oral capsule See Instructions, 1 capsule By Mouth 1 time daily at bedtime. E11.9, # 30 each, 5 Refills, Maintenance, 05/01/22 18:04:00 EST, Capsule, [facility]/pharmacy #[id number], Partial fill upon patient request if the prescription is for a schedule II opioid drug., 157.5,... Start Date: 05/01/22 Status: Ordered mirtazapine 15 mg oral tablet 1 tablet = 15 mg, By Mouth, Daily at bedtime, # 30 tablet, 4 Refills, Maintenance, 05/02/22 14:02:00 EST, Tablet, [facility]/pharmacy #[id number], Partial fill upon patient request [...] 06/14/22 16:40:00 EDT, EC Tablet, [facility]/pharmacy #[id number], Partial fill upon patient request if the prescription is for a schedule II opioid drug., 157.5,... Start Date: 06/14/22 Status: Ordered oxyCODONE 10 mg oral tablet TAKE 1/2 TAB EVERY 12 HOURS NEEDED FOR SEVERE NECK/LOW BACK PAIN. DO NOT FILL UNTIL 05/01/21 Start Date: 06/02/21 Status: Ordered Pen [place], 31 G x 8 mm BD Ultra [...] 05/02/22 14:40:00 EST, Route to Pharmacy Electronically, [facility]/pharmacy #[id number], Partial fill upon patient request if the prescription is for a schedule II opi... Start Date: 05/02/22 Status: Ordered imaging specialist grabber tool imaging specialist grabber tool, See Instructions, # 1 each, Refills 0, Tot. Refills 0, Maintenance, please dispense one imaging specialist grabber tool, ICD 10 M54.6, length [...] 10:05:00 EDT, 06/12/22 10:05:00 EDT, Chew Tablet, [facility], Partial fill upon [...] Stop 12/15/22 14:36:00 EDT, 04/19/22 14:36:00 EST, [facility]/pharmacy #[id number], 157.5, cm, 04/11/22 10:50:00 EST, Height Start Date: 04/19/22 Stop Date: 12/15/22 Status: Ordered Topamax 25 mg oral tablet 3 tablet = 75 mg, By Mouth, Daily at bedtime, # 90 tablet, 6 Refills, Maintenance, 06/26/22 10:14:00 EDT, Tablet, [facility], 157.5, cm, 06/21/22 8:43:00 EDT, Height Start Date: 06/26/22 Stop Date: 01/22/23 Status: Ordered Trulicity Pen 3 mg/0.5 mL subcutaneous solution See Instructions, INJECT 0.5ML SUBCUTANEOUSLY EVERY WEEK, ROTATE INJECTION SITES, # 2 mL, 5 Refills, 01/23/22 16:33:00 EDT, [facility], 157.5, cm, 01/20/22 13:38:00 EDT, Height Start Date: 01/23/22 Status: Ordered Trulicity Pen 4.5 mg/0.5 mL subcutaneous solution See Instructions, 4.5 mg Subcutaneous Infusion weekly. E11.9, # 4 each, 5 Refills, Maintenance, 06/19/22 17:00:00 EDT, [facility], Partial fill [...] 07/03/22 9:29:00 EDT, Route to Pharmacy Electronically, [facility], 157.5, cm, 03... Start Date: 07/03/22 Stop Date: 07/12/22 Status: Ordered Vascepa 1 g oral capsule 2 capsule = 2 Gm, By Mouth, 2 times a day, # 360 capsule, 5 Refills, Maintenance, 05/03/20 15:59:00EST, Capsule, 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 No wall motion abnormalities, Does [...] Physician Member Role: PCP Address: Address: [address] [facility] [place] [address]- Name: Lizbeth Barnhart Position: [facility] RN Member Role: Primary Care Nurse Care Team Related Persons Name: LB HENLEY Address: home [address] [address] Name: LB HENLEY Address: home [address] [place] [address] Name: MILENA CUBA Address: home [address] [place] [address]
--- OUTSIDE RECORDS SUMMARY | 2024-01-23 14:41 | XMS_ITS | Continuity of Care Document ---
Author Organization [facility] Address [address] [place] [address]- Care Team Providers Care Hydraulics Teacher Name Role Phone Rose Mary FISCHER, Sergo Cole Primary Care Physician [place] [facility] [place] 08/30/20 - 09/29/20 [facility] [address] [place], [place] [address] Allergies, Adverse Reactions, Alerts Substance Reaction Severity [...] 1Result Comment: [01/22/2017] [facility] [id number] 2Admin Note: vis given dated 10/24/12 3Admin [...] 10/29/20 15:45:00 EDT, 08/30/20 15:45:00 EDT, Tablet, [facility]/pharmacy #[id number], Partial [...] 5 Refills, Maintenance, 09/02/19 13:54:00 EDT, [facility], E11.9, 157.48, [...] Refills, Maintenance, 06/21/20 17:44:00 EDT, [facility], 157.48, cm, 05/31/20 9:41:00 EST, Height Start [...] Ordered BD ultra fine III pen needles [id number] BD ultra fine III pen needles [id number], See Instructions, # 360 each, Refills 3, [...] Refills, Maintenance, 08/19/20 16:26:00 EDT, [facility], 30, TAKE 1 TABLET BY MOUTH DAILY. [...] 3, Maintenance, use up to check blood [id number] per day. 90 DAY SUPPLY, E11.9, 02/29/20 [...] 2 Refills, Maintenance, 04/07/20 16:52:00 EST, [facility], Partial [...] 9 Refills, Maintenance, 09/20/20 15:10:00 EDT, [facility], NEEDS 30 [...] EDT, Film, [facility]/pharmacy #[id number], Partial fill upon patient request if the prescription is for a schedule II opioid drug., 1 patch Topically Daily, 157.48, cm, 05/31/20 9:41:0... Start Date: 08/26/20 Status: Ordered lidocaine 5% topical ointment See Instructions, APPLY TO AFFECTED AREA 3 TIMES A DAY, # 35.44 Gm, 11 Refills, Physician Stop 09/30/20 12:50:00 EDT, 09/02/20 12:50:00 EDT, [facility]/pharmacy #[id number], 30, APPLY TO AFFECTED AREA 3 TIMES A DAY, 157.48, cm, 05/31/20 9:41:00 EST, Height Start Date: 09/02/20 Stop Date: 09/30/20 Status: Ordered losartan 50 mg oral tablet 1 tablet, By Mouth, Daily, # 30 tablet, 5 Refills, Maintenance, 06/20/20 9:32:00 EDT, [facility], 157.48, cm, 05/31/20 9:41:00 EST, Height Start [...] request Start Date: 02/16/19 Status: Ordered Pen [place], 31 G x 8 mm BD Ultra [...] 12/08/21 15:26:00 EDT, 12/13/20 15:26:00 EDT, Solution, [facility], E11.65, 157.48, cm, 04/27/19 15:43:00 EST, Height Start Date: 12/13/20 Stop Date: 12/08/21 Status: Ordered Trulicity Pen 1.5 mg/0.5 mL subcutaneous solution 0.5 mL = 1.5 mg, Subcutaneous Injection, Every Saturday, E11.9, # 7.5 mL, 3 Refills, Maintenance, 12/08/21 15:26:00 EDT, Solution, [facility], E11.65, 157.48, cm, 03/04/20 [...] Replace Required Details, Route to Pharmacy Electronically, [facility], 157.48, cm, 05/31/20 9:41:00 EST, Height Start [...] Active *Briana Garces, Care Coor dinator, ICP [phone](Confirmed) Active Reflux(Confirmed) Active Hepatic steatosis(Confirmed) Active 16335 -EF 60-65%. No wall motion abnormalities, Does [...]
--- OUTSIDE RECORDS SUMMARY | 2024-01-23 14:41 | XMS_ITS | Continuity of Care Document ---
Author Organization [facility] Address [address] [place] [address]- Care Team Providers Care Mixing Plant Dumper Name Role Phone Rose Mary FISCHER, Sergo Cole Primary Care Physician Encounter [facility] Date(s): 11/27/19 - 12/27/19 [facility] [address] [place] [address]- [facility] Allergies, Adverse Reactions, Alerts Substance [...] Given 1Result Comment: [01/22/2017] [facility] [id number] 2Admin Note: vis given dated 10/24/12 3Admin [...] Refills, Maintenance, 09/02/19 13:54:00 EDT, [facility], E11.9, 157.48, cm, 04/27/19 [...] 0 Refills, Maintenance, 12/14/19 17:01:00 EDT, Tablet, [facility]/pharmacy #[id number], replaces simvastatin, 157.48, cm, 04/27/19 15:43:00 EST, Height Start Date: 12/14/19 Stop Date: 03/13/20 Status: Ordered BD ultra fine III pen needles [id number] BD ultra fine III pen needles [id number], See Instructions, # 360 each, Refills 3, [...] 60 Gm, 4 Refills, Acute, [facility], 30, APPLY TO AFFECTED AREA TWICE A [...] Maintenance, 12/24/19 9:18:00 EDT, Gel, [facility]/pharmacy #[id number], 157.48, cm, 04/27/19 15:43:00 EST, [...] 2 Refills, Maintenance, 11/13/19 18:59:00 EDT, Tablet, [facility], 157.48, cm, 04/27/19 15:43:00 [...] Refills, Maintenance, 12/10/19 12:46:00 EDT, [facility]/pharmacy #[id number], 1 sprays Nares, Both Daily,x30 [...] 3, Maintenance, use up to check blood [id number] per day. 90 DAY SUPPLY, E11.9, 08/21/19 [...] Refills, Maintenance, 09/02/19 13:55:00 EDT, [facility], [...] Maintenance, 05/15/19 15:00:00 EST, Ointment, [facility]/pharmacy #[id number], 1 application Topically 3 times a day,x30 days, 157.48, cm, 04/27/19 15:43:00 EST, Height Start Date: 05/15/19 Stop Date: 05/09/20 Status: Ordered losartan 50 mg oral tablet 50 mg, 1, tablet, By Mouth, Daily, can substitute 25mg tabs x2 if needed, # 30 tablet, Refills 5, Tot. Refills 5, Maintenance, 06/22/19 15:26:00 EDT, Route to Pharmacy Electronically, [facility]/pharmacy #[id number], 157.48, cm, 04/27/19 15:43:00 EST, [...] Maintenance, 08/14/19 8:49:00 EDT, Tablet, [facility]/pharmacy #[id number], 1 tablet By Mouth Daily,x90 days,Instr:Take it 2 hours separate from Orlistat ([place]), 157.... Start Date: 08/14/19 Stop Date: 11/06/20 Status: Ordered oxyCODONE 5 mg oral tablet 5 mg, 1, tablet, By Mouth, Every 12 hours, PRN, Refills 0, Tot. Refills 0, Maintenance, as needed for pain, 02/16/19 14:51:00 EST, Partial fill upon patient request Start Date: 02/16/19 Status: Ordered Pen [place], 31 G x [...] 3 Refills, Maintenance, 12/13/20 15:26:00 EDT, Solution, [facility], E11.65, 157.48, cm, 04/27/19 15:43:00 EST, Height Start Date: 12/13/20 Stop Date: 12/08/21 Status: Ordered Trulicity Pen 1.5 mg/0.5 mL subcutaneous solution 0.5 mL = 1.5 mg, Subcutaneous Injection, Every Saturday, for 90 days, # 6.5 mL, 5 Refills, Hard Stop 12/13/20 15:26:00 EDT, 06/22/19 15:26:00 EDT, Solution, [facility]/pharmacy #[id number], E11.65, 157.48, cm, 04/27/19 15:43:00 EST, Height Start Date: 06/22/19 Stop Date: 12/13/20 Status: Ordered Tylenol Extra Strength 500 mg oral tablet 2 tablet = 1,000 mg, By Mouth, Every 6 hours, PRN as needed for pain, # 100 tablet, 0 Refills, Maintenance, 06/13/17 14:23:00, Tablet Start Date: 06/13/17 Status: Ordered valACYclovir 500 mg oral tablet See Instructions, TAKE 1 TABLET BY MOUTH TWICE A DAY FOR 3 DAYS NEEDED FOR OUTBREAK, # 6 tablet,Refills 2, Acute, Instructions Replace Required Details, Route to Pharmacy Electronically, [facility], 157.48, cm, 04/27/19 15:43:00 EST, Height Start [...] Active *Briana Garces, Care Coor dinator, ICP [phone](Confirmed) Active Reflux(Confirmed) Active 15897 -EF 60-65%. No wall motion abnormalities, Does [...]
--- OUTSIDE RECORDS SUMMARY | 2024-01-23 14:42 | XMS_ITS | Continuity of Care Document ---
Author Organization [facility] Address [address] [place] [address]- Care Team Providers Care Program Consultant Name Role Phone Rose Mary FISCHER, Sergo Cole Primary Care Physician [phone] Encounter [facility] Date(s): 10/26/22 - 11/25/22 [facility] [address], [place] [address] Allergies, Adverse Reactions, Alerts Substance [...] Given 1Result Comment: [01/22/2017] [facility] [id number] 2Admin Note: vis given dated 10/24/12 3Admin [...] 100 tablet, 1 Refills, Acute, 219:52:00 EDT, [facility], 157.48, cm, 10/11/20 9:39:00 EDT, Height Start Date: 10/26/20 Status: Ordered Alcohol Pads See Instructions, # 200 each, Refills 11, Tot. Refills 11, Maintenance, To cleans before injections5 x a day., 03/03/21 9:18:00 EST, E11.65, Compound, 157.48, cm, 03/01/21 15:54:00 EST, Height Start Date: 03/03/21 Stop Date: 02/26/22 Status: Ordered Fadwn-Tidyzc-Fcpv 300 mg oral capsule 1 capsule, By Mouth, 2 times a day, NOT COVERED., # 60 capsule, 11 Refills, [facility]24, 157.48, cm, 01/27/21 9:30:00 EDT, Height Start Date: 01/30/21 Status: Ordered ammonium lactate 12% topical cream 1 application, Topically, 2 times a day, # 385 Gm, 3 Refills, Maintenance, 08/24/22 14:16:00 EDT, Cream, [facility]/pharmacy #[id number], Partial fill upon patient request if the prescription is for a schedule IIopioid drug., 1 application Topically 2 times a day... Start Date: 08/24/22 Stop Date: 12/22/22 Status: Ordered atorvastatin 80 mg oral tablet 1 tablet = 80 mg, By Mouth, Daily, replaces Simvastatin, # 90 tablet, 4 Refills, Maintenance, 08/26/22 14:22:00 EDT, Tablet, [facility]/pharmacy #[id number], replaces simvastatin, 157.5, cm, 11/29/21 15:59:00 EDT, Height Start Date: 08/26/22 Stop Date: 11/19/23 Status: Ordered BD Single Use Swab 70% topical pad See Instructions, TO CLEANS BEFORE INJECTIONS 5 X A DAY., # 150 Unknown, 11 Refills, Maintenance, 08/16/22 10:15:00 EDT, [facility], 30, TO CLEANS BEFORE INJECTIONS 5 X A DAY., 157.5, cm, 08/01/22 9:27:00 EDT, Height Start Date: 08/16/22 Status: Ordered capsaicin 0.075% topical cream See Instructions, APPLY TO AFFECTED AREA TWICE A DAY, # 57 Gm, 4 Refills, Maintenance, 08/24/22 14:16:00 EDT, [facility]/pharmacy #[id number], 30, APPLY TO AFFECTED AREA [...] tablet, 11 Refills, Maintenance, 07/09/22 10:30:00 EDT, [facility]/pharmacy #[id number], 30, 1 tablet By Mouth [...] Details, Route to Pharmacy Electronically, [facility]/pharmacy... Start Date: 08/30/22 Status: Ordered diclofenac 1% topical gel See Instructions, APPLY TOPICALLY 4 TIMES A DAY NOT TO EXCEED 16 GRAMS/DAY/SINGLE JOINT OF LOWER EXTREMITIES, # 100 Gm, 6 Refills, Maintenance, 08/24/22 14:16:00 EDT, [facility]/pharmacy #[id number], 30, APPLY TOPICALLY 4 TIMES A DAY NOT TO EXCEED 16 GRAMS/DAY/SIN... Start Date: 08/24/22 Status: Ordered docusate sodium 100 mg oral capsule See Instructions, TAKE 1 CAPSULE BY MOUTH TWICE A DAY NEEDED FOR CONSTIPATION, # 60 capsule, 5 Refills, Maintenance, 07/03/22 18:20:00 EDT, [facility]/pharmacy #[id number], Duplicate Rx. Original sent 07/03/22 with routing error. Re- sending to pharmacy, 157.5, cm... Start Date: 07/03/22 Status: Ordered docusate sodium 100 mg oral capsule 100 mg, 1, capsule, By Mouth, 2 times a day, PRN, # 60 capsule, Refills 5, Tot. Refills 5, Maintenance, as needed for constipation, 06/12/22 9:52:00 EDT, Route to Pharmacy Electronically, [facility]/pharmacy #[id number], Partial fill upon patient request [...] Refills, Maintenance, 09/20/22 9:36:00 EDT, [facility], 30, INHALE 1 PUFF BY MOUTH TWICE A DAY, 157.5, cm, 09/05/22 16:22:00 EDT, Height Start Date: 09/20/22 Status: Ordered fluticasone 50 mcg/inh nasal spray See Instructions, SPRAY 1 SPRAY INTO EACH NOSTRIL EVERY DAY, # 16 mL, 5 Refills, Maintenance, 07/05/22 16:20:00 EDT, [facility], 30, SPRAY 1 SPRAY INTO EACH NOSTRIL [...] mL, 6 Refills, Maintenance, 06/12/22 10:00:00 EDT, [facility], Partial fill upon patie... Start Date: 06/12/22 Status: Ordered Lactaid 3000 units oral tablet 3 tablet = 9,000 units, By Mouth, 3 times a day with meals, # 120 tablet, 5 Refills, Maintenance, 08/17/22 9:03:00 EDT, Tablet, [facility]/pharmacy #[id number], Partial fill upon patient request if the prescription is for a schedule II opioid drug., 157.5, cm, ... Start Date: 08/17/22 Stop Date: 02/13/23 Status: Ordered Lantus Solostar Pen 100 units/mL subcutaneous solution See Instructions, Take 45 units in the AM and 45 units daily at bedtime. E11.9., # 30 mL, 9 Refills, Maintenance, 06/19/22 16:50:00 EDT, [facility], Partial fill upon patient requestif the [...] Gm, 11 Refills, Maintenance, 07/03/22 18:22:00 EDT, [facility]/pharmacy #[id number], 30, Duplicate Rx. Original sent [...] 5 Refills, Maintenance, 05/01/22 18:04:00 EST, Capsule, [facility]/pharmacy #[id number], Partial fill upon patient request if the prescription is for a schedule II opioid drug., 157.5,... Start Date: 05/01/22 Status: Ordered mirtazapine 15 mg oral tablet 1 tablet = 15 mg, By Mouth, Daily at bedtime, # 30 tablet, 4 Refills, Maintenance, 05/02/22 14:02:00 EST, Tablet, [facility]/pharmacy #[id number], Partial fill upon patient request if the prescription is for a schedule II opioid drug., 157.5, cm, 04/11/22 10:50:00... Start Date: 05/02/22 Stop Date: 09/29/22 Status: Ordered Nexium 40 mg oral enteric coated capsule 1 capsule = 40 mg, By Mouth, Daily, BRNAD NAME ONLY, # 90 capsule, 0 Refills, Maintenance, 10/18/2313:25:00 EDT, [facility]/pharmacy #[id number], Partial fill upon patient request if the prescription is for a schedule II opioid drug., 157.5, cm, 10/08/22 18:20:00... Start Date: 10/18/22 Stop Date: 01/16/23 Status: Ordered [place]-3 Fish Oil 1000 mg oral capsule 1 capsule = 1,000 mg, By Mouth, Daily, # 90 capsule, 1 Refills, Maintenance, 08/01/22 10:17:00 EDT,[facility]/pharmacy #[id number], Partial fill upon patient request if the prescription is for a schedule II opioid drug., 157.5, cm, 08/01/22 9:27:00 EDT, Height Start Date: 08/01/22 Status: Ordered omeprazole 20 mg oral delayed release tablet 1 tablet = 20 mg, By Mouth, 2 times a day, do not crush or chew, # 60 tablet, 2 Refills, Maintenance, 06/14/22 16:40:00 EDT, EC Tablet, [facility]/pharmacy #[id number], Partial fill upon patient request if the prescription is for a schedule II opioid drug., 157.5,... Start Date: 06/14/22 Status: Ordered oxyCODONE 10 mg oral tablet TAKE 1/2 TAB EVERY 12 HOURS NEEDED FOR SEVERE NECK/LOW BACK PAIN. DO NOT FILL UNTIL 05/01/21 Start Date: 06/02/21 Status: Ordered Pen [place], 31 G x [...] 08/30/22 13:31:00 EDT, Route to Pharmacy Electronically, [facility]/pharmacy #[id number], Partial fill upon patient request if the prescription is for a schedule II opi... Start Date: 08/30/22 Stop Date: 01/27/23 Status: Ordered pinking sewing machine operator grabber tool pinking sewing machine operator grabber tool, See Instructions, # 1 each, Refills 0, Tot. Refills 0, Maintenance, please dispense one pinking sewing machine operator ashlie tool, ICD 10 M54.6, length of use [...] 14:16:00 EDT, 08/24/22 14:16:00 EDT, Chew Tablet, [facility]/pharmacy #[id number], Partial fill upon patient request if the prescription is for a schedule II... Start Date: 08/24/22 Stop Date: 12/07/22 Status: Ordered SUMAtriptan 25 mg oral tablet 1 tablet, By Mouth, Daily, PRN NEEDED FOR MIGRAINES, for 30 days, MAY RPT DOSE AFTER 2 HRS TO MAX OF 2, # 12 tablet, 7 Refills, Physician Stop 12/15/22 14:36:00 EDT, 04/19/22 14:36:00 EST, [facility]/pharmacy #[id number], 157.5, cm, 04/11/22 10:50:00 EST, Height Start Date: 04/19/22 Stop Date: 12/15/22 Status: Ordered Topamax 25 mg oral tablet 3 tablet = 75 mg, By Mouth, Daily at bedtime, # 90 tablet, 6 Refills, Maintenance, 06/26/22 10:14:00 EDT, Tablet, [facility], 157.5, cm, 06/21/22 8:43:00 EDT, Height Start Date: 06/26/22 Stop Date: 01/22/23 Status: Ordered Trulicity Pen 4.5 mg/0.5 mL subcutaneous solution See Instructions, INJECT 4.5 MG SUBCUTANEOUSLY ONCE A WEEK, # 2 mL, 5 Refills, Maintenance, 11/21/22 8:33:00 EDT, [facility], 157.5, cm, 11/16/22 13:50:00 EDT, Height Start Date: 11/21/22 Status: Ordered valACYclovir 500 mg oral tablet 1, tablet, By Mouth, 2 times a day, PRN, # 6 tablet, Refills 2, Maintenance, NEEDED FOR OUTBREAKS, 07/11/22 16:11:00 EDT, Route to Pharmacy Electronically, [facility], 157.5, cm, 06/21/22 8:43:00 EDT, Height Start [...] each, 0 Refills, Maintenance, 09/17/22 15:25:00 EDT, [facility]902, 157.5, cm, 09/05/22 16:22:00 EDT, Height Start [...] 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 No wall motion abnormalities, Does [...] Name: Rose Mary FISCHER, Sergo Cole Position: [facility] Physician - Primary Care Member Role: PCP Address: Address: [address] [place] [address] [place] [address]- Name: Lizbeth Collins [place] Position: [facility] RN Member Role: Primary Care Nurse Care Team Related Persons Name: LB HENLEY Address: home [address] [address] Name: LB HENLEY Address: [address] [place] [address] Name: MILENA CUBA Address: home [address] [place] [address]
--- OUTSIDE RECORDS SUMMARY | 2024-01-23 14:42 | XMS_ITS | Continuity of Care Document ---
Author Organization [facility] Address [address] [place] [address] ve [address] [place] [address]- Care Team Providers Care Teletypesetter Operator Name Role Phone Sergo Bazzi MD Primary Care Physician Encounter [facility] Date(s): 02/01/23 - 06/01/23 [facility] [address] [place] [address]- Attending Physician: Greg Buck MD Referring Physician: Sergo Bazzi MD Allergies, [...] [01/22/2017] [facility] [id number] 2Admin Note: vis given dated 10/24/12 3Admin [...] 100 tablet, 1 Refills, Acute, 219:52:00 EDT, [facility], 157.48, cm, 10/11/20 9:39:00 EDT, Height Start Date: 10/26/20 Status: Ordered Alcohol Pads See Instructions, # 200 each, Refills 11, Tot. Refills 11, Maintenance, To cleans before injections5 x a day., 03/03/21 9:18:00 EST, E11.65, Compound, 157.48, cm, 03/01/21 15:54:00 EST, Height Start Date: 03/03/21 Stop Date: 02/26/22 Status: Ordered Xtydp-Eqdybo-Jcnw 300 mg oral capsule 1 capsule, By Mouth, 2 times a day, NOT COVERED., # 60 capsule, 11 Refills, [facility]18, 157.48, cm, 01/27/21 9:30:00 EDT, Height Start Date: 01/30/21 Status: Ordered ammonium lactate 12% topical cream 1 application, Topically, 2 times a day, # 385 Gm, 1 Refills, Maintenance, 12/22/22 14:16:00 EDT, Cream, [facility]/pharmacy #[id number], Partial fill upon patient request if the prescription is for a schedule IIopioid drug., 1 application Topically 2 times a day... Start Date: 12/22/22 Stop Date: 02/20/23 Status: Ordered atorvastatin 80 mg oral tablet 1 tablet, By Mouth, Daily, INSTR:REPLACES SIMVASTATIN, # 90 tablet, 1 Refills, Maintenance, 05/22/23 12:07:00 EST, [facility], 157, cm, 05/06/23 14:23:00 EST, Height, 88.3, [...] 04/30/23 7:27:00 EST, Route to Pharmacy Electronically, [facility]/pharmacy #[id number], Partial fill upon patient request if the prescription is for a schedule II opioi... Start Date: 04/30/23 Stop Date: 09/27/23 Status: Ordered capsaicin 0.075% topical cream See Instructions, APPLY TO AFFECTED AREA TWICE A DAY, # 57 Gm, 4 Refills, Maintenance, 04/11/23 10:18:00 EST, [facility] 0[facility]25, 30, APPLY TO AFFECTED AREA TWICE A [...] tablet, 11 Refills, Maintenance, 07/09/22 10:30:00 EDT, [facility]/pharmacy #[id number], 30, 1 tablet [...] Gm, 1 Refills, Maintenance, 12/14/22 6:14:00 EDT, [facility]/pharmacy #[id number], 30, APPLY TOPICALLY 4 TIMES A DAY NOT TO EXCEED 16 GRAMS/DAY/SING... Start Date: 12/14/22 Status: Ordered docusate sodium 100 mg oral capsule See Instructions, TAKE 1 CAPSULE BY MOUTH TWICE A DAY NEEDED FOR CONSTIPATION, # 60 capsule, 5 Refills, Maintenance, 07/03/22 18:20:00 EDT, [facility]/pharmacy #[id number], Duplicate Rx. Original [...] each, 0 Refills, Maintenance, 09/20/22 9:36:00 EDT, [facility], 30, INHALE 1 PUFF BY MOUTH TWICE A DAY, 157.5, cm, 09/05/22 16:22:00 EDT, Height Start Date: 09/20/22 Status: Ordered fluticasone 50 mcg/inh nasal spray See Instructions, SPRAY 1 SPRAY INTO EACH NOSTRIL EVERY DAY, # 16 mL, 5 Refills, Maintenance, 07/05/22 16:20:00 EDT, [facility], 30, SPRAY 1 SPRAY INTO EACH NOSTRIL [...] Stop Date: 09/18/22 Status: Ordered FREESTYLE LANCETS [facility] Miscellaneous FREESTYLE LANCETS [facility] Miscellaneous, See Instructions, # 100 Unknown, 5 [...] tablet, 4 Refills, Maintenance, 03/11/23 15:50:00 EST, [facility] ST[facility] 26603, 157.5, cm, 02/19/23 9:20:00 EST, Height Start [...] mL, 6 Refills, Maintenance, 11/26/22 14:55:00 EDT, [facility], Partial fill upon patie... Start Date: 11/26/22 Status: Ordered lactase 3000 u oral tablet 3 tablet, By Mouth, 3 times a day with meals, X30 DAYS., # 120 tablet, 5 Refills, Maintenance, 04/25/23 15:25:00 EST, [facility] ST[facility] 08440, 157, cm, 04/17/23 7:57:00 EST, Height, 88.3, kg, 04/16/23 11:33:00 EST, Dry Weight Start Date: 04/25/23 Status: Ordered Lantus Solostar Pen 100 units/mL subcutaneous solution See Instructions, Take 45 units in the AM and 45 units daily at bedtime. E11.9., # 30 mL, 9 Refills, Maintenance, 11/26/22 14:55:00 EDT, [facility], Partial fill upon patient requestif the prescription is for a schedule II opioid luacs... Start Date: 11/26/22 Status: Ordered levothyroxine 0.112 mg oral tablet 1 tablet = 112 mcg, By Mouth, Daily, # 30 tablet, 0 Refills, Maintenance, 06/01/23 10:27:00 EST, [facility]/pharmacy #[id number], Partial fill upon patient request if the prescription is for a schedule II opioid drug., 157, cm, 05/06/23 14:23:00 EST, Height, 88.3,... Start Date: 06/01/23 Status: Ordered lidocaine 5% topical ointment See Instructions, APPLY TO AFFECTED AREA 3 TIMES A DAY, # 35.44 Gm, 11 Refills, Maintenance, 02/28/22 8:51:00 EST, [facility]/pharmacy #[id number], 30, APPLY TO [...] tablet, 1 Refills, Maintenance, 03/11/23 15:50:00 EST, [facility] STORE 86467, 157.5, cm, 02/19/23 9:20:00 EST, Height Start Date: 03/11/23 Status: Ordered Lyrica 25 mg oral capsule See Instructions, 1 capsule By Mouth 1 time daily at bedtime. E11.9, # 30 each, 5 Refills, Maintenance, 01/21/23 15:40:00 EDT, Capsule, [facility]/pharmacy #[id number], Partial fill upon [...] 2 Refills, Soft Stop, 02/22/23 14:30:00 EST, [facility]/pharmacy #[id number], Partial fill upon patient request if the prescription is for a schedule II opioid drug., 157.5, cm, 02/19/23 9:20:00 EST, Height Start Date: 02/22/23 Status: Ordered [place]-3 Fish Oil 1000 mg oral capsule 1 capsule = 1,000 mg, By Mouth, Daily, # 90 capsule, 1 Refills, Maintenance, 08/01/22 10:17:00 EDT,[facility]/pharmacy #[id number], Partial fill upon [...] Refills, Maintenance, 06/14/22 16:40:00 EDT, EC Tablet, [facility]/pharmacy #[id number], Partial fill upon patient request if the prescription is for a schedule II opioid drug., 157.5,... Start Date: 06/14/22 Status: Ordered oxyCODONE 10 mg oral tablet TAKE 1/2 TAB EVERY 12 HOURS NEEDED FOR SEVERE NECK/LOW BACK PAIN. DO NOT FILL UNTIL 05/01/21 Start Date: 06/02/21 Status: Ordered Pen [place], 31 G x 8 mm BD Ultra [...] 12/06/22 13:08:00 EDT, Route to Pharmacy Electronically, [facility]/pharmacy #[id number], Partial fill upon patient request if the prescription is for a schedule II opi... Start Date: 12/06/22 Stop Date: 05/05/23 Status: Ordered talent acquisition manager grabber tool talent acquisition manager grabber tool, See Instructions, # 1 each, Refills 0, Tot. Refills 0, Maintenance, please dispense one talent acquisition manager grabber tool, ICD 10 M54.6, length [...] 05/22/23 12:07:00 EST, Route to Pharmacy Electronically, [facility], 157, cm, 05/06/23 14:23:00 EST, Height, 88.3, kg, 04/16/23 11:33:00 EST, . Start Date: 05/22/23 Status: Ordered Valium 5 mg oral tablet 5 mg, 1, tablet, By Mouth, 2 times a day, for 30 days, # 60 tablet, Refills 0, Tot. Refills 0, Acute 06/26/23 15:38:00 EDT, 05/27/23 15:38:00 EST, Route to Pharmacy Electronically, [facility]/pharmacy #[id number], Partial fill upon patient request if the prescript... Start Date: 05/27/23 Stop Date: 06/26/23 Status: Ordered Vascepa 1 g oral capsule 2 capsule = 2 Gm, By Mouth, 2 times a day, # 360 capsule, 5 Refills, Maintenance, 05/03/20 15:59:00EST, Capsule, [facility]/pharmacy #[id number], 157.48, cm, 03/04/20 14:14:00 EST, Height Start Date: 05/03/20 Status: Ordered Ventolin HFA 108 mcg/inh inhalation aerosol with adapter 1 puffs, Inhalation, 4 times a day, PRN NEEDED FOR WHEEZING, # 18 each, 0 Refills, Maintenance, 09/17/22 15:25:00 EDT, [facility], 157.5, cm, 09/05/22 16:22:00 EDT, Height Start [...] 5 Confirmed 02/20/10 Active *Briana Garces, Social Services Aide, ICP [phone] Confirmed Active PTSD (post-traumatic stress disorder) Confirmed Active Reflux Confirmed Active Severe obesity (BMI 35.0-39.9) with comorbidity Confirmed Active Hepatic steatosis Confirmed Active Tubular adenoma of colon Confirmed Active 99068 -EF 60-65%. No wall motion abnormalities, Does [...] Name: Rose Mary FISCHER, Sergo Cole Position: [facility] Physician - Primary Care Member Role: PCP Address: Address: [address] [place] [address] [place] [address]- Name: Lizbeth Collins [place] Position: [facility] RN Member Role: Primary Care Nurse Care Team Related Persons Name: LB HENLEY Address: home [address] [address] Name: LB HENLEY Address: [address] [place] [address] Name: MILENA CUBA Address: home [address] [place] [address]
--- OUTSIDE RECORDS SUMMARY | 2024-01-23 14:42 | XMS_ITS | Continuity of Care Document ---
Author Organization [facility] Address [address] [place] [address]- Care Team Providers Care Animal Nurse Name Role Phone Rose Mary FISCHER, Sergo Cole Primary Care Physician [phone] Encounter [facility] Date(s): 08/30/21 - 09/29/21 [facility] [address] [place], [place] [address] Allergies, Adverse Reactions, Alerts Substance Reaction Severity Status morphine ITCH DIARRHEA Active cortisone Active trazodone DEPRESSION Active Motrin eat lining [...] [01/22/2017] [facility] [place] 2[place] [id number] 2Admin Note: vis given dated 10/24/12 3Admin Note: vis given dated 10/01/11 4Admin Note: vis 5Admin Note: vis 6Admin Note: vis given: 10/27/2006 7Admin Note: vis given : 10/10/2005 8Admin Note: vis given 2007- Medications acetaminophen 500 mg oral tablet 2 tablet, By Mouth, 4 times a day, PRN NEEDED FOR PAIN, # 100 tablet, 1 Refills, Acute, 219:52:00 EDT, [facility] 25177, 157.48, cm, 10/11/20 9:39:00 EDT, Height Start Date: 10/26/20 Status: Ordered Alcohol Pads See Instructions, # 200 each, Refills 11, Tot. Refills 11, Maintenance, To cleans before injections5 x a day., 03/03/21 9:18:00 EST, E11.65, Compound, 157.48, cm, 03/01/21 15:54:00 EST, Height Start Date: 03/03/21 Stop Date: 02/26/22 Status: Ordered Shytc-Lozvgs-Cqbw 300 mg oral capsule 1 capsule, By Mouth, 2 times a day, NOT COVERED., # 60 capsule, 11 Refills, [facility] 21716, 157.48, cm, 01/27/21 9:30:00 EDT, Height Start Date: 01/30/21 Status: Ordered ammonium lactate 12% topical cream 1 application, Topically, 2 times a day, # 385 Gm, 5 Refills, Maintenance, 09/08/21 9:35:00 EDT, Cream, [facility]/pharmacy #[id number], Partial fill upon patient request if the prescription is for a schedule II opioid drug., 1 application Topically 2 times a day,... Start Date: 09/08/21 Stop Date: 03/07/22 Status: Ordered aspirin 81 mg oral delayed release tablet 1 tablet, By Mouth, Daily, # 30 tablet, 11 Refills, Maintenance, 06/21/20 17:44:00 EDT, [facility] 69897, 157.48, cm, 05/31/20 9:41:00 EST, Height Start [...] Refills, Maintenance, 08/19/20 16:26:00 EDT, [facility], 30, TAKE 1 TABLET BY MOUTH DAILY. [...] 6 Refills, Maintenance, 09/01/21 13:11:00 EDT, Gel, [facility]/pharmacy #[id number], 157.48, cm, 08/24/21 8:03:00 EDT, Height [...] EVERY DAY, # 16 mL, 5 Refills, [facility]122, 30, USE 1 SPRAY IN EACH NOSTRIL [...] 3, Maintenance, use up to check blood [id number] per day. 90 DAY SUPPLY, E11.9, 03/03/21 [...] mL, 6 Refills, Maintenance, 09/18/21 16:43:00 EDT, [facility], Partial fill upon patient request if... Start Date: 09/18/21 Status: Ordered Lantus Solostar Pen 100 units/mL subcutaneous solution See Instructions, Take 80 units via Subcutaneous Infusion Daily at bedtime. E11.9., # 30 mL, 9 Refills, Maintenance, 08/24/21 9:25:00 EDT, [facility], Partial fill upon patient request if the prescription is for a schedule II opioid d... Start Date: 08/24/21 Status: Ordered Lantus Solostar Pen 100 units/mL subcutaneous solution See Instructions, Decreased to 60U once a day as of 12/29/19, # 30 mL, 9 Refills, Maintenance, 09/20/20 15:10:00 EDT, [facility], NEEDS 30 ML [...] 0 Refills, Maintenance, 09/08/21 9:35:00 EDT, Film, [facility]/pharmacy #[id number], Partial fill upon patient request if the prescription is for a schedule II opioid drug., 1patch Topically Daily, 157.48, cm, 08/24/21 8:03:00... Start Date: 09/08/21 Status: Ordered losartan 50 mg oral tablet 1 tablet, By Mouth, Daily, # 30 tablet, 2 Refills, [facility] ST[facility] 58418, 157.48, cm, 05/05/21 9:51:00 EST, Height Start [...] 05/01/21 Start Date: 06/02/21 Status: Ordered Pen [place], 31 G x 8 mm BD Ultra [...] # 12 tablet, 7 Refills, [facility], 157.48, cm, 05/23/21 13:08:00 EST, Height Start Date: 06/02/21 Status: Ordered tiZANidine 4 mg oral capsule 1 capsule, By Mouth, 3 times a day, # 90 capsule, 3 Refills, [facility], 157.48, cm, 05/23/21 13:08:00 EST, Height Start Date: 06/01/21 Status: Ordered Topamax 25 mg oral tablet 2 tablet = 50 mg, By Mouth, Daily at bedtime, # 60 tablet, 6 Refills, Maintenance, 08/29/21 14:04:00 EDT, Tablet, [facility]/pharmacy #[id number], 157.48, cm, 08/24/21 8:03:00 EDT, Height Start Date: 08/29/21 Stop Date: 03/27/22 Status: Ordered Trulicity Pen 3 mg/0.5 mL subcutaneous solution See Instructions, INJECT 0.5ML SUBCUTANEOUSLY EVERY WEEK, ROTATE INJECTION SITES, # 2 mL, 5 Refills, 08/24/21 9:20:00 EDT, [facility], 157.48, cm, 08/24/21 [...] 02/20/10 Active *Rosemarie Mcmillan Coor dinator, ICP [phone](Confirmed) Active Reflux(Confirmed) Active Hepatic steatosis(Confirmed) Active -EF [...]
--- OUTSIDE RECORDS SUMMARY | 2024-01-23 14:42 | XMS_ITS | Continuity of Care Document ---
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 Refills 11, Maintenance, To cleans before injections5 x a day., 03/03/21 9:18:00 EST, E11.65, Compound, 157.48, cm, 03/01/21 15:54:00 EST, Height Start Date: 03/03/21 Stop Date: 02/26/22 Status: Ordered Ypimc-Vqytkr-Blto 300 mg oral capsule 1 capsule, By Mouth, 2 times a day, NOT COVERED., # 60 capsule, 11 Refills, [facility], 157.48, cm, 01/27/21 9:30:00 EDT, Height Start [...] 1 Refills, Maintenance, 11/19/23 14:22:00 EDT, Tablet, [facility]/pharmacy #[id number], replaces simvastatin, 157.5, cm, 11/26/22 14:11:00 EDT, Height Start Date: 11/19/23 Stop Date: 05/17/24 Status: Ordered BD Single Use Swab 70% topical pad See Instructions, TO CLEANS BEFORE INJECTIONS 5 X A DAY., # 150 Unknown, 11 Refills, Maintenance, 08/16/22 10:15:00 EDT, [facility], 30, TO CLEANS BEFORE INJECTIONS 5 X A DAY., 157.5, cm, 08/01/22 9:27:00 EDT, Height Start Date: 08/16/22 Status: Ordered capsaicin 0.075% topical cream See Instructions, APPLY TO AFFECTED AREA TWICE A DAY, # 57 Gm, 4 Refills, Maintenance, 08/24/22 14:16:00 EDT, [facility]/pharmacy #[id number], 30, APPLY TO AFFECTED AREA TWICE [...] 06/12/22 9:52:00 EDT, Route to Pharmacy Electronically, [facility]/pharmacy #[id number], Partial fill upon patient request if the pr... Start Date: 06/12/22 Status: Ordered esomeprazole 40 mg oral enteric coated capsule 1 capsule = 40 mg, By Mouth, Daily, # 90 capsule, 1 Refills, Maintenance, 03/07/23 13:32:00 EST, [facility]/pharmacy #[id number], [...] each, 0 Refills, Maintenance, 09/20/22 9:36:00 EDT, [facility], 30, INHALE 1 PUFF BY MOUTH TWICE A DAY, 157.5, cm, 09/05/22 16:22:00 EDT, Height Start Date: 09/20/22 Status: Ordered fluticasone 50 mcg/inh nasal spray See Instructions, SPRAY 1 SPRAY INTO EACH NOSTRIL EVERY DAY, # 16 mL, 5 Refills, Maintenance, 07/05/22 16:20:00 EDT, [facility], 30, SPRAY 1 SPRAY INTO EACH NOSTRIL [...] tablet, 4 Refills, Maintenance, 03/11/23 15:50:00 EST, [facility]159, 157.5, cm, 02/19/23 9:20:00 EST, Height Start [...] mL, 6 Refills, Maintenance, 11/26/22 14:55:00 EDT, [facility], Partial fill upon patie... [...] 5 Refills, Maintenance, 08/17/22 9:03:00 EDT, Tablet, [facility]/pharmacy [...] mL, 9 Refills, Maintenance, 11/26/22 14:55:00 EDT, [facility], Partial fill upon patient [...] tablet, 1 Refills, Maintenance, 07/11/22 15:04:00 EDT, [facility]/pharmacy#[id number], 157.5, cm, 06/21/22 8:43:00 EDT, Height Start Date: 07/11/22 Status: Ordered losartan 50 mg oral tablet See Instructions, TAKE 1 TABLET BY MOUTH EVERY DAY, # 90 tablet, 1 Refills, Maintenance, 03/11/23 15:50:00 EST, [facility], 157.5, cm, 02/19/23 9:20:00 EST, Height Start [...] EST, Height Start Date: 02/22/23 Status: Ordered [place]ul[place]-3 Fish Oil 1000 mg oral capsule 1 [...] 05/01/21 Start Date: 06/02/21 Status: Ordered Pen Dolores, 31 G x 8 mm BD Ultra [...] Date: 12/06/22 Stop Date: 05/05/23 Status: Ordered aircraft parts assembler grabber tool aircraft parts assembler grabber tool, See Instructions, # 1 each, Refills 0, Tot. Refills 0, Maintenance, please dispense one aircraft parts assembler grabber tool, ICD 10 M54.6, length [...] tablet, 10 Refills, Maintenance, 01/17/23 8:54:00 EDT, [facility], 157.5, cm, 12/28/22 15:12:00 EDT, Height Start Date: 01/17/23 Status: Ordered Trulicity Pen 4.5 mg/0.5 mL subcutaneous solution See Instructions, INJECT 4.5 MG SUBCUTANEOUSLY ONCE A WEEK, # 2 mL, 5 Refills, Maintenance, 11/21/22 8:33:00 EDT, [facility], 157.5, cm, 11/16/22 13:50:00 EDT, Height Start Date: 11/21/22 Status: Ordered valACYclovir 500 mg oral tablet 1, tablet, By Mouth, 2 times a day, PRN, # 6 tablet, Refills 1, Maintenance, NEEDED FOR OUTBREAKS, 03/08/23 15:42:00 EST, Route to Pharmacy Electronically, [facility], 157.5, cm, 02/19/23 9:20:00 EST, Height Start [...] each, 0 Refills, Maintenance, 09/17/22 15:25:00 EDT, [facility], 157.5, cm, 09/05/22 16:22:00 EDT, Height Start [...] 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 No wall motion abnormalities, Does [...] Team Personnel Name: Sergo Bazzi MD Position: [facility] Physician - Primary Care Member Role: PCP Address: Address: [address] [facility] [place] [address]- Name: Lizbeth Collins [place] Position: [facility] RN Member Role: Primary Care Nurse Care Team Related Persons Name: LB HENLEY Address: [address] [place] [address] Name: LB HENLEY Address: home [address] [place] [id number] Name: MILENA CUBA Address: home [address] [place] [address] [address] [place] [address]
--- OUTSIDE RECORDS SUMMARY | 2024-01-23 14:42 | XMS_ITS | Continuity of Care Document ---
Author Organization [facility] Address [address] [place] [address]- Care Team Providers Care Coatings Inspector Name Role Phone Sergo Bazzi MD Primary Care Physician [phone] Encounter [facility] [place](s): 10/18/23 - 12/07/23 [facility] [address] [place], [place] [address] [place] Attending Physician: Kerry Llanos MD Admitting Physician: Kerry Llanos MD Referring Physician: Sergo Bazzi MD Allergies, [...] 1Result Comment: [01/22/2017] [facility] [id number] 2Admin Note: vis given dated 10/24/12 3Admin [...] 100 tablet, 1 Refills, Acute, 219:52:00 EDT, [facility] 88168, 157.48, cm, 10/11/20 9:39:00 EDT, Height Start [...] Date: 10/30/23 Stop Date: 10/24/24 Status: Ordered Nctcf-Fbiuev-Yeqv 300 mg oral capsule 1 capsule, By Mouth, 2 times a day, NOT COVERED., # 60 capsule, 11 Refills, [facility] 79528, 157.48, cm, 01/27/21 9:30:00 EDT, Height Start Date: 01/30/21 Status: Ordered ammonium lactate 12% topical cream 1 application, Topically, 2 times a day, # 385 Gm, 1 Refills, Maintenance, 12/22/22 14:16:00 EDT, Cream, [facility]/pharmacy #[id number], Partial fill upon patient request if the prescription is for a schedule IIopioid drug., 1 application Topically 2 times a day... Start Date: 12/22/22 Stop Date: 02/20/23 Status: Ordered Artificial Tears preserved solution 1 drops, Eyes, Both, 2 times a day, PRN for dry eyes, # 15 mL, 0 Refills, Maintenance, 09/10/23 8:57:00 EDT, Solution, [facility]/pharmacy #[id number], Partial fill upon patient request if the prescription is fora schedule II opioid drug., 1 drops Eyes, Both 2 ti... Start Date: 09/10/23 Status: Ordered atorvastatin 80 mg oral tablet See Instructions, TAKE 1 TABLET BY MOUTH DAILY. INSTR:REPLACES SIMVASTATIN, # 90 tablet, 1 Refills,Maintenance, 11/06/23 7:48:00 EDT, [facility], 157, cm, 10/18/23 11:52:00 EDT, Height, 84, kg,07/24/23 12:52:00 EDT, Dry Weight Start Date: 11/06/23 Status: Ordered atorvastatin 80 mg oral tablet 1 tablet, By Mouth, Daily, INSTR:REPLACES SIMVASTATIN, # 90 tablet, 1 Refills, Maintenance, 05/22/23 12:07:00 EST, [facility] 95256, 157, cm, 05/06/23 14:23:00 EST, Height, 88.3, kg, 04/16/23 11:33:00EST, Dry Weight Start Date: 05/22/23 Status: Ordered BD Single Use Swab 70% topical pad See Instructions, TO CLEANS BEFORE INJECTIONS 5 X A DAY., # 150 Unknown, 11 Refills, Maintenance, 08/16/22 10:15:00 EDT, [facility], 30, TO CLEANS [...] tablet, 5 Refills, Maintenance, 11/06/23 17:25:00 EDT, [facility]/pharmacy #[id number], 1 tablet By Mouth Daily,Instr:SEPARATE [...] 02/07/24 10:46:00 EST, Route to Pharmacy Electronically, [facility]/pharmacy #[id number], Partial fill... Start Date: 02/07/24 Stop Date: 07/06/24 Status: Ordered diazepam 5 mg oral tablet 5 mg, 1, tablet, By Mouth, 2 times a day, for 30 days, TAKE 1 TABLET BY MOUTH TWICE A DAY., # 60 tablet, Refills 4, Tot. Refills 4, Acute 12/03/24 10:46:00 EDT, 07/06/24 10:46:00 EDT, Route to Pharmacy Electronically, [facility]/pharmacy #[id number], Partial fill... Start Date: 07/06/24 Stop Date: 12/03/24 Status: Ordered diazepam 5 mg oral tablet 5 mg, 1, tablet, By Mouth, 2 times a day, for 30 days, TAKE 1 TABLET BY MOUTH TWICE A DAY., # 60 tablet, Refills 4, Tot. Refills 4, Acute 02/07/24 10:46:00 EST, 09/10/23 10:46:00 EDT, Route to Pharmacy Electronically, [facility]/pharmacy #[id number], Partial fill... Start Date: 09/10/23 Stop Date: 02/07/24 Status: Ordered diclofenac 1% topical gel See Instructions, APPLY TOPICALLY 4 TIMES A DAY NOT TO EXCEED 16 GRAMS/DAY/SINGLE JOINT OF LOWER EXTREMITIES, # 100 Gm, 4 Refills, Maintenance, 09/10/23 8:56:00 EDT, [facility]/pharmacy #[id number], 30, APPLY TOPICALLY 4 TIMES [...] capsule, 5 Refills, Maintenance, 07/03/22 18:20:00 EDT, [facility]/pharmacy #[id number], Duplicate Rx. Original sent 07/03/22 with routing error. Re- sending to pharmacy, 157.5, cm... Start Date: 07/03/22 Status: Ordered esomeprazole 40 mg oral enteric coated capsule 1 capsule = 40 mg, By Mouth, Daily, # 90 capsule, 3 Refills, Maintenance, 09/25/23 16:33:00 EDT, [facility]/pharmacy #[id number], Partial fill upon patient request if the prescription is for a schedule II opioid drug., 157, cm, 09/25/23 16:26:00 EDT, Height, 84, k... Start Date: 09/25/23 Status: Ordered esomeprazole 40 mg oral enteric coated capsule 1 capsule = 40 mg, By Mouth, Daily, # 90 capsule, 1 Refills, Maintenance, 09/02/23 16:20:00 EDT, [facility]/pharmacy #[id number], Partial fill upon [...] each, 0 Refills, Maintenance, 11/06/23 17:54:00 EDT, [facility]/pharmacy #[id number], 30, 1 puffs Inhalation 2 times a day, 157, cm, 10/18/23 11:52:00 EDT, Height, 84, kg,07/24/23 12:52:00 EDT, Dry Weight Start Date: 11/06/23 Status: Ordered fluticasone 50 mcg/inh nasal spray See Instructions, SPRAY 1 SPRAY INTO EACH NOSTRIL EVERY DAY, # 16 mL, 5 Refills, Maintenance, 11/06/23 17:54:00 EDT, [facility]/pharmacy #[id number], 30, SPRAY 1 SPRAY INTO [...] Ordered FREESTYLE LANCETS MIS Miscellaneous FREESTYLE LANCETS [facility] Miscellaneous, See Instructions, # 100 Unknown, 5 [...] tablet, 4 Refills, Maintenance, 11/06/23 17:54:00 EDT, [facility]/pharmacy #[id number], 157, cm, 10/18/23 11:52:00 EDT, [...] mL, 6 Refills, Maintenance, 07/24/23 13:20:00 EDT, [facility], Partial fill upon patient request if the prescription is for a schedule II opioid drug., 157, cm, 07/24/23 12:52:00... Start Date: 07/24/23 Status: Ordered hydrOXYzine hydrochloride 25 mg oral tablet 1 tablet = 25 mg, By Mouth, 2 times a day, as needed for anxiety, # 60 tablet, 4 Refills, Soft Stop, 02/07/24 10:47:00 EST, Tablet, [facility]/pharmacy #[id number], Partial fill upon [...] 02/07/24 10:47:00 EST, 09/10/23 10:47:00 EDT, Tablet, [facility]/pharmacy #[id number], Partial fillupon patient request if the prescription is for a s... Start Date: 09/10/23 Stop Date: 02/07/24 Status: Ordered lactase 3000 u oral tablet 3 tablet, By Mouth, 3 times a day with meals, X30 DAYS., # 120 tablet, 3 Refills, Maintenance, 11/06/23 7:51:00 EDT, [facility]/pharmacy #[id number], 157, cm, 10/18/23 11:52:00 EDT, Height, 84, kg, 07/24/23 12:52:00 EDT, Dry Weight Start Date: 11/06/23 Status: Ordered Lantus Solostar Pen 100 units/mL subcutaneous solution See Instructions, Take 45 units in the AM and 45 units daily at bedtime. E11.9., # 30 mL, 9 Refills, Maintenance, 07/24/23 13:18:00 EDT, [facility], Partial fill upon patient requestif the prescription is for a schedule II opioid lucas... Start Date: 07/24/23 Status: Ordered levothyroxine 0.1 mg oral tablet 1 tablet = 100 mcg, By Mouth, Daily, # 30 tablet, 11 Refills, Maintenance, 07/25/23 8:52:00 EDT, [facility]/pharmacy #[id number], stop the 112mcg dose, 157, cm, 07/24/23 12:52:00 EDT, Height, 84, kg, 07/24/23 12:52:00 EDT, Dry Weight Start Date: 07/25/23 Stop Date: 07/19/24 Status: Ordered lidocaine 5% topical ointment See Instructions, APPLY TO AFFECTED AREA 3 TIMES A DAY, # 35.44 Gm, 3 Refills, Maintenance, 11/06/23 7:51:00 EDT, [facility]/pharmacy #[id number], 30, Duplicate Rx. Original sent [...] 2 Refills, Maintenance, 11/05/23 18:01:00 EDT, Capsule, [facility]/pharmacy #[id number], Partial fill upon [...] 02/07/24 10:47:00 EST, 09/10/23 10:47:00 EDT, Tablet, [facility]/pharmacy #[id number], Partial fill upon patient request if the prescription is for a schedule II opioid dr... Start Date: 09/10/23 Stop Date: 02/07/24 Status: Ordered Murine Ear Drops 6.5% solution See Instructions, INSTILL 5 DROPS INTO BOTH EARS TWICE DAILY FOR 7 DAYS, # 15 mL, 0 Refills, Maintenance, 09/30/23 10:01:00 EDT, [facility]67, 30, INSTILL 5 DROPS INTO BOTH EARS TWICE DAILY FOR 7 DAYS, 157, cm, 09/25/23 16:26:00 EDT, Height, 84, kg... Start Date: 09/30/23 Status: Ordered Narcan 4 mg/0.1 mL nasal spray = 4 mg, Nares, Both, Once, # 2 each, 2 Refills, Soft Stop, 02/22/23 14:30:00 EST, [facility]/pharmacy #[id number], Partial fill upon patient request if the prescription is for a schedule II opioid drug., 157.5, cm, 02/19/23 9:20:00 EST, Height Start Date: 02/22/23 Status: Ordered [place]-3 Fish Oil 1000 mg oral capsule 1 capsule = 1,000 mg, By Mouth, Daily, # 90 capsule, 1 Refills, Maintenance, 08/01/22 10:17:00 EDT,[facility]/pharmacy #[id number], Partial fill upon patient [...] tablet, 2 Refills, Maintenance, 07/03/23 14:40:00 EDT, [facility] 85421, 157, cm, 06/24/23 14:54:00 EDT, Height, 88.3, [...] mL, 11 Refills, Maintenance, 08/23/23 11:17:00 EDT, [facility], Partial fill upon patient request if... Start Date: 08/23/23 Status: Ordered Pen Delta, 31 G x 8 mm BD Ultra [...] 02/07/24 10:47:00 EST, Route to Pharmacy Electronically, [facility]/pharmacy #[id number], Partial fill upon patient request if the prescription is for a schedule II opi... Start Date: 02/07/24 Stop Date: 07/06/24 Status: Ordered QUEtiapine 25 mg oral tablet 25 mg, 1, tablet, By Mouth, 2 times a day, for 30 days, # 60 tablet, Refills 4, Tot. Refills 4, Hard Stop 02/07/24 10:47:00 EST, 09/10/23 10:47:00 EDT, Route to Pharmacy Electronically, [facility]/pharmacy #[id number], Partial fill upon patient request if the pres... Start Date: 09/10/23 Stop Date: 02/07/24 Status: Ordered donation specialist grabber tool donation specialist grabber tool, See Instructions, # 1 each, Refills 0, Tot. Refills 0, Maintenance, please dispense one donation specialist grabber tool, ICD 10 M54.6, length [...] tablet, 10 Refills, Maintenance, 10/08/23 15:43:00 EDT, [facility], 157, cm, 09/25/23 16:26:00 EDT, Height, 84, kg, 07/24/23 12:52:00 EDT, Dry Weight Start Date: 10/08/23 Status: Ordered valACYclovir 500 mg oral tablet See Instructions, TAKE 1 TABLET BY MOUTH 2 TIMES A DAY,X3 DAYS, NEEDED FOR OUTBREAKS, # 6 tablet, Refills 0, Maintenance, 11/06/23 7:49:00 EDT, Instructions Replace Required Details, Route to Pharmacy Electronically, [facility], 157, cm, 10/17... 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
--- OUTSIDE RECORDS SUMMARY | 2024-01-23 14:42 | XMS_ITS | Continuity of Care Document ---
Author Organization [facility] Address [address] [place] [address]- Care Team Providers Care Manager Commission Name Role Phone Rose Mary FISCHER, Sergo Cole Primary Care Physician Encounter [facility] Date(s): 07/04/22 - 08/17/22 [facility] [address] [place], [place] [address] Attending Physician: Not on Staff, Attending [...] [facility] [id number] 2Admin Note: vis given dated 10/24/12 3Admin Note: vis given dated 10/01/11 4Admin Note: vis 5Admin Note: vis 6Admin Note: vis given: 10/27/2006 7Admin Note: vis given : 10/10/2005 8Admin Note: vis given 2007- Medications acetaminophen 500 mg oral tablet 2 tablet, By Mouth, 4 times a day, PRN NEEDED FOR PAIN, # 100 tablet, 1 Refills, Acute, 219:52:00 EDT, [facility], 157.48, cm, 10/11/20 9:39:00 EDT, Height Start Date: 10/26/20 Status: Ordered Alcohol Pads See Instructions, # 200 each, Refills 11, Tot. Refills 11, Maintenance, To cleans before injections5 x a day., 03/03/21 9:18:00 EST, E11.65, Compound, 157.48, cm, 03/01/21 15:54:00 EST, Height Start Date: 03/03/21 Stop Date: 02/26/22 Status: Ordered Xrhwu-Sengro-Ezim 300 mg oral capsule 1 capsule, By Mouth, 2 times a day, NOT COVERED., # 60 capsule, 11 Refills, [facility], 157.48, cm, 01/27/21 9:30:00 EDT, Height Start [...] Unknown, 11 Refills, Maintenance, 08/16/22 10:15:00 EDT, [facility], 30, TO CLEANS BEFORE INJECTIONS 5 X A DAY., 157.5, cm, 08/01/22 9:27:00 EDT, Height Start Date: 08/16/22 Status: Ordered capsaicin 0.075% topical cream See Instructions, APPLY TO AFFECTED AREA TWICE A DAY, # 57 Gm, 4 Refills, Maintenance, 03/05/22 13:29:00 EST, [facility] ST[facility], 30, APPLY TO AFFECTED AREA TWICE A [...] tablet, 11 Refills, Maintenance, 07/09/22 10:30:00 EDT, [facility]/pharmacy #[id number], 30, 1 tablet By Mouth Daily,Instr:INSTR:TAKE IT 2 HOURS SEPARATE FROM ORLISTAT (MLITON), 157... Start Date: 07/09/22 Status: Ordered diazepam 10 mg oral tablet See Instructions, PRN, 1/2 tablet By Mouth in AM and 1 tab at HS, # 45 tablet, Refills 4, Tot. Refills 4, Maintenance, as needed for anxiety, 05/02/22 14:00:00 EST, Instructions Replace Required Details, Route to Pharmacy Electronically, [facility]/pharmacy... Start Date: 05/02/22 Status: Ordered diclofenac 1% topical gel See Instructions, APPLY TOPICALLY 4 TIMES A DAY NOT TO EXCEED 16 GRAMS/DAY/SINGLE JOINT OF LOWER EXTREMITIES, # 100 Gm, 6 Refills, Maintenance, 03/19/22 9:28:00 EST, [facility], 30, APPLY TOPICALLY 4 TIMES A DAY NOT TO EXCEED 16 GRAMS/DAY/SINGLE... Start Date: 03/19/22 Status: Ordered docusate sodium 100 mg oral capsule See Instructions, TAKE 1 CAPSULE BY MOUTH TWICE A DAY NEEDED FOR CONSTIPATION, # 60 capsule, 5 Refills, Maintenance, 07/03/22 18:20:00 EDT, [facility]/pharmacy #[id number], Duplicate Rx. Original sent 07/03/22 with routing error. Re- sending to pharmacy, 157.5, cm... Start Date: 07/03/22 Status: Ordered docusate sodium 100 mg oral capsule 100 mg, 1, capsule, By Mouth, 2 times a day, PRN, # 60 capsule, Refills 5, Tot. Refills 5, Maintenance, as needed for constipation, 06/12/22 9:52:00 EDT, Route to Pharmacy Electronically, [facility]/pharmacy #[id number], Partial fill [...] each, 0 Refills, Maintenance, 03/22/22 16:35:00 EST, [facility], 30, INHALE 1 PUFF BY MOUTH TWICE A DAY, 157.5, cm, 03/22/22 13:25:00 EST, Height Start Date: 03/22/22 Status: Ordered fluticasone 50 mcg/inh nasal spray See Instructions, SPRAY 1 SPRAY INTO EACH NOSTRIL EVERY DAY, # 16 mL, 5 Refills, Maintenance, 07/05/22 16:20:00 EDT, [facility], 30, SPRAY 1 SPRAY INTO EACH NOSTRIL [...] mL, 6 Refills, Maintenance, 06/12/22 10:00:00 EDT, [facility], Partial fill upon patie... Start Date: 06/12/22 Status: Ordered Lactaid 3000 units oral tablet 3 tablet = 9,000 units, By Mouth, 3 times a day with meals, # 120 tablet, 5 Refills, Maintenance, 08/17/22 9:03:00 EDT, Tablet, [facility]/pharmacy #[id number], Partial fill upon patient request if the prescription is for a schedule II opioid drug., 157.5, cm, ... Start Date: 08/17/22 Stop Date: 02/13/23 Status: Ordered Lantus Solostar Pen 100 units/mL subcutaneous solution See Instructions, Take 45 units in the AM and 45 units daily at bedtime. E11.9., # 30 mL, 9 Refills, Maintenance, 06/19/22 16:50:00 EDT, [facility], Partial fill upon patient requestif the prescription is for a schedule II opioid lucas... Start Date: 06/19/22 Status: Ordered lidocaine 5% topical ointment See Instructions, APPLY TO AFFECTED AREA 3 TIMES A DAY, # 35.44 Gm, 11 Refills, Maintenance, 02/28/22 8:51:00 EST, [facility]/pharmacy #[id number], 30, APPLY TO AFFECTED AREA 3 TIMES A DAY, 157.5, cm, 02/21/22 14:36:00 EST, Height Start Date: 02/28/22 Status: Ordered lidocaine 5% topical ointment See Instructions, APPLY TO AFFECTED AREA 3 TIMES A DAY, # 35.44 Gm, 11 Refills, Maintenance, 07/03/22 18:22:00 EDT, [facility]/pharmacy #[id number], 30, Duplicate Rx. Original sent 07/03/22 [...] 5 Refills, Maintenance, 05/01/22 18:04:00 EST, Capsule, [facility]/pharmacy #[id number], Partial fill upon patient request if the prescription is for a schedule II opioid drug., 157.5,... Start Date: 05/01/22 Status: Ordered mirtazapine 15 mg oral tablet 1 tablet = 15 mg, By Mouth, Daily at bedtime, # 30 tablet, 4 Refills, Maintenance, 05/02/22 14:02:00 EST, Tablet, [facility]/pharmacy #[id number], Partial fill upon patient request if the prescription is for a schedule II opioid drug., 157.5, cm, 04/11/22 10:50:00... Start Date: 05/02/22 Stop Date: 09/29/22 Status: Ordered [place]-3 Fish Oil 1000 mg oral capsule 1 capsule = 1,000 mg, By Mouth, Daily, # 90 capsule, 1 Refills, Maintenance, 08/01/22 10:17:00 EDT,[facility]/pharmacy #[id number], Partial fill upon [...] Refills, Maintenance, 06/14/22 16:40:00 EDT, EC Tablet, [facility]/pharmacy #[id number], Partial fill upon patient request if the prescription is for a schedule II opioid drug., 157.5,... Start Date: 06/14/22 Status: Ordered oxyCODONE 10 mg oral tablet TAKE 1/2 TAB EVERY 12 HOURS NEEDED FOR SEVERE NECK/LOW BACK PAIN. DO NOT FILL UNTIL 05/01/21 Start Date: 06/02/21 Status: Ordered Pen [place], 31 G x 8 mm BD Ultra [...] 05/02/22 14:40:00 EST, Route to Pharmacy Electronically, [facility]/pharmacy #[id number], Partial fill upon patient request if the prescription is for a schedule II opi... Start Date: 05/02/22 Status: Ordered lithographers printer grabber tool lithographers printer grabber tool, See Instructions, # 1 each, Refills 0, Tot. Refills 0, Maintenance, please dispense one lithographers printer grabber tool, ICD 10 M54.6, length of [...] 10:05:00 EDT, 06/12/22 10:05:00 EDT, Chew Tablet, [facility], Partial fill upon patient request if the prescription is for a jacinda... Start Date: 06/12/22 Stop Date: 09/25/22 Status: Ordered SUMAtriptan 25 mg oral tablet 1 tablet, By Mouth, Daily, PRN NEEDED FOR MIGRAINES, for 30 days, MAY RPT DOSE AFTER 2 HRS TO MAX OF 2, # 12 tablet, 7 Refills, Physician Stop 12/15/22 14:36:00 EDT, 04/19/22 14:36:00 EST, [facility]/pharmacy #[id number], 157.5, cm, 04/11/22 10:50:00 EST, Height Start Date: 04/19/22 Stop Date: 12/15/22 Status: Ordered Topamax 25 mg oral tablet 3 tablet = 75 mg, By Mouth, Daily at bedtime, # 90 tablet, 6 Refills, Maintenance, 06/26/22 10:14:00 EDT, Tablet, [facility], 157.5, cm, 06/21/22 8:43:00 EDT, Height Start Date: 06/26/22 Stop Date: 01/22/23 Status: Ordered Trulicity Pen 3 mg/0.5 mL subcutaneous solution See Instructions, INJECT 0.5ML SUBCUTANEOUSLY EVERY WEEK, ROTATE INJECTION SITES, # 2 mL, 5 Refills, 01/23/22 16:33:00 EDT, [facility], 157.5, cm, 01/20/22 13:38:00 EDT, Height Start Date: 01/23/22 Status: Ordered Trulicity Pen 4.5 mg/0.5 mL subcutaneous solution See Instructions, 4.5 mg Subcutaneous Infusion weekly. E11.9, # 4 each, 5 Refills, Maintenance, 06/19/22 17:00:00 EDT, [facility], Partial fill upon patient request if the prescription is for a schedule II opioid drug., 157.5, cm, .. 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 No wall motion abnormalities, Does [...] Team Personnel Name: Sergo Bazzi MD Position: [facility] Primary Care Physician Member Role: PCP Address: Address: [address] [place] [address] Medicine [id number]- Name: Lizbeth Barnhart Position: [facility] RN Member Role: Primary Care Nurse Care Team Related Persons Name: LB HENLEY Address: home [address] [address] Name: LB HENLEY Address: home [address] [place] [address] Name: MILENA CUBA Address: home [address] [facility] [address] [place] [address]
--- OUTSIDE RECORDS SUMMARY | 2024-01-23 14:43 | XMS_ITS | Continuity of Care Document ---
Author Organization [facility] Address [address] [place] [address]- Care Team Providers Care Mill Washer Name Role Phone Sergo Bazzi MD Primary Care Physician Encounter [facility] [place] Date(s): 07/25/23 - 08/24/23 [facility] [address] [place], [place] [address] Allergies, Adverse Reactions, [...] [facility] [id number] 2Admin Note: vis given dated 10/24/12 3Admin [...] 1 Refills, Acute, 219:52:00 EDT, [facility], 157.48, cm, 10/11/20 9:39:00 EDT, Height Start [...] Date: 03/03/21 Stop Date: 02/26/22 Status: Ordered Pzhhy-Hoactm-Nmmg 300 mg oral capsule 1 capsule, By Mouth, 2 times a day, NOT COVERED., # 60 capsule, 11 Refills, [facility], 157.48, cm, 01/27/21 9:30:00 EDT, Height Start Date: 01/30/21 Status: Ordered ammonium lactate 12% topical cream 1 application, Topically, 2 times a day, # 385 Gm, 1 Refills, Maintenance, 12/22/22 14:16:00 EDT, Cream, [facility]/pharmacy #[id number], Partial fill upon patient request if the prescription is for a schedule IIopioid drug., 1 application Topically 2 times a day... Start Date: 12/22/22 Stop Date: 02/20/23 Status: Ordered atorvastatin 80 mg oral tablet 1 tablet, By Mouth, Daily, INSTR:REPLACES SIMVASTATIN, # 90 tablet, 1 Refills, Maintenance, 05/22/23 12:07:00 EST, [facility] STORE 49151, 157, cm, 05/06/23 14:23:00 EST, Height, 88.3, [...] 09/27/23 7:27:00 EDT, Route to Pharmacy Electronically, [facility]/pharmacy #[id number], Partial fill upon patient request if the prescription is for a schedule II opioi... Start Date: 09/27/23 Stop Date: 02/24/24 Status: Ordered busPIRone 5 mg oral tablet 5 mg, 1, tablet, By Mouth, 2 times a day, for 30 days, # 60 tablet, Refills 4, Tot. Refills 4, HardStop 09/27/23 7:27:00 EDT, 04/30/23 7:27:00 EST, Route to Pharmacy Electronically, [facility]/pharmacy #[id number], Partial fill upon patient request if the prescri... Start Date: 04/30/23 Stop Date: 09/27/23 Status: Ordered capsaicin 0.075% topical cream See Instructions, APPLY TO AFFECTED AREA TWICE A DAY, # 57 Gm, 4 Refills, Maintenance, 04/11/23 10:18:00 EST, [facility] STORE 66896, 30, APPLY TO AFFECTED AREA TWICE A [...] Refills, Maintenance, 07/02/23 18:31:00 EDT, [facility], 90, TAKE 1 TABLET BY MOUTH DAILY [...] 08/31/23 16:26:00 EDT, Route to Pharmacy Electronically, [facility]/pharmacy #[id number], Partial fill... Start Date: 08/31/23 Stop Date: 01/28/24 Status: Ordered diazepam 5 mg oral tablet 5 mg, 1, tablet, By Mouth, 2 times a day, for 30 days, TAKE 1 TABLET BY MOUTH TWICE A DAY., # 60 tablet, Refills 1, Tot. Refills 1, Acute 08/31/23 16:26:00 EDT, 07/02/23 16:26:00 EDT, Route to Pharmacy Electronically, [facility]/pharmacy #[id number], Partial fill... Start Date: 07/02/23 Stop Date: 08/31/23 Status: Ordered diclofenac 1% topical gel See Instructions, APPLY TOPICALLY 4 TIMES A DAY NOT TO EXCEED 16 GRAMS/DAY/SINGLE JOINT OF LOWER EXTREMITIES, # 100 Gm, 1 Refills, Maintenance, 12/14/22 6:14:00 EDT, [facility]/pharmacy #[id number], 30, APPLY TOPICALLY 4 TIMES [...] capsule, 5 Refills, Maintenance, 07/03/22 18:20:00 EDT, [facility]/pharmacy #[id number], Duplicate Rx. Original sent 07/03/22 with routing error. Re- sending to pharmacy, 157.5, cm... Start Date: 07/03/22 Status: Ordered esomeprazole 40 mg oral enteric coated capsule 1 capsule = 40 mg, By Mouth, Daily, # 90 capsule, 1 Refills, Maintenance, 03/07/23 13:32:00 EST, [facility]/pharmacy #[id number], Partial fill upon patient [...] Refills, Maintenance, 09/20/22 9:36:00 EDT, [facility], 30, INHALE 1 PUFF BY MOUTH TWICE A DAY, 157.5, cm, 09/05/22 16:22:00 EDT, Height Start Date: 09/20/22 Status: Ordered fluticasone 50 mcg/inh nasal spray See Instructions, SPRAY 1 SPRAY INTO EACH NOSTRIL EVERY DAY, # 16 mL, 5 Refills, Maintenance, 07/05/22 16:20:00 EDT, [facility], 30, SPRAY 1 SPRAY INTO EACH NOSTRIL [...] tablet, 4 Refills, Maintenance, 03/11/23 15:50:00 EST, [facility] 185[facility], 157.5, cm, 02/19/23 9:20:00 EST, Height Start [...] mL, 6 Refills, Maintenance, 07/24/23 13:20:00 EDT, [facility], Partial fill upon patient request if the prescription is for a schedule II opioid drug., 157, cm, 07/24/23 12:52:00... Start Date: 07/24/23 Status: Ordered hydrOXYzine hydrochloride 25 mg oral tablet 1 tablet = 25 mg, By Mouth, 2 times a day, as needed for anxiety, # 60 tablet, 4 Refills, Soft Stop, 07/10/23 11:33:00 EDT, Tablet, [facility]/pharmacy #[id number], Partial fill upon patient request if the prescription is for a schedule II opioid drug., 157, cm, 0... Start Date: 07/10/23 Stop Date: 12/07/23 Status: Ordered lactase 3000 u oral tablet 3 tablet, By Mouth, 3 times a day with meals, X30 DAYS., # 120 tablet, 5 Refills, Maintenance, 04/25/23 15:25:00 EST, [facility] STORE 32228, 157, cm, 04/17/23 7:57:00 EST, Height, 88.3, kg, 04/16/23 11:33:00 EST, Dry Weight Start Date: 04/25/23 Status: Ordered Lantus Solostar Pen 100 units/mL subcutaneous solution See Instructions, Take 45 units in the AM and 45 units daily at bedtime. E11.9., # 30 mL, 9 Refills, Maintenance, 07/24/23 13:18:00 EDT, [facility], Partial fill upon patient requestif the prescription is for a schedule II opioid lucas... Start Date: 07/24/23 Status: Ordered levothyroxine 0.1 mg oral tablet 1 tablet = 100 mcg, By Mouth, Daily, # 30 tablet, 11 Refills, Maintenance, 07/25/23 8:52:00 EDT, [facility]/pharmacy #[id number], stop the 112mcg dose, 157, cm, 07/24/23 12:52:00 EDT, Height, 84, kg, 07/24/23 12:52:00 EDT, Dry Weight Start Date: 07/25/23 Stop Date: 07/19/24 Status: Ordered lidocaine 5% topical ointment See Instructions, APPLY TO AFFECTED AREA 3 TIMES A DAY, # 35.44 Gm, 11 Refills, Maintenance, 02/28/22 8:51:00 EST, [facility]/pharmacy #[id number], 30, APPLY TO AFFECTED AREA 3 TIMES A DAY, 157.5, cm, 02/21/22 14:36:00 EST, Height Start Date: 02/28/22 Status: Ordered lidocaine 5% topical ointment See Instructions, APPLY TO AFFECTED AREA 3 TIMES A DAY, # 35.44 Gm, 11 Refills, Maintenance, 07/03/22 18:22:00 EDT, [facility]/pharmacy #[id number], 30, Duplicate Rx. Original sent 07/03/22 with routing error. Re-sending to pharmacy, APPLY TO AFFECTED AREA 3 TIMES A... Start Date: 07/03/22 Status: Ordered losartan 50 mg oral tablet See Instructions, TAKE 1 TABLET BY MOUTH EVERY DAY, # 90 tablet, 1 Refills, Maintenance, 03/11/23 15:50:00 EST, [facility] STORE 76188, 157.5, cm, 02/19/23 9:20:00 EST, Height Start Date: 03/11/23 Status: Ordered Lyrica 25 mg oral capsule See Instructions, 1 capsule By Mouth 1 time daily at bedtime. E11.9, # 30 each, 2 Refills, Maintenance, 08/08/23 11:19:00 EDT, Capsule, [facility]/pharmacy #[id number], Partial fill upon patient [...] EST, Height Start Date: 02/22/23 Status: Ordered [place]-3 Fish Oil 1000 mg oral capsule 1 capsule = 1,000 mg, By Mouth, Daily, # 90 capsule, 1 Refills, Maintenance, 08/01/22 10:17:00 EDT,[facility] #[id number], Partial fill upon patient [...] tablet, 2 Refills, Maintenance, 07/03/23 14:40:00 EDT, [facility] STORE 75886, 157, cm, 06/24/23 14:54:00 EDT, Height, 88.3, [...] mL, 11 Refills, Maintenance, 08/23/23 11:17:00 EDT, [facility], Partial fill upon patient request if... Start Date: 08/23/23 Status: Ordered Pen [place], 31 G x 8 mm BD Ultra [...] 07/09/23 9:37:00 EDT, Route to Pharmacy Electronically, [facility]/pharmacy #5553, Partial fill upon patient request if the prescription is for a schedule II opio... Start Date: 07/09/23 Stop Date: 12/06/23 Status: Ordered behavioral health associate grabber tool behavioral health associate grabber tool, See Instructions, # 1 each, Refills 0, Tot. 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 *Briana Garces, Commissary Production Supervisor, ICP [phone] Confirmed Active PTSD (post-traumatic stress disorder) Confirmed [...] Team Personnel Name: Sergo Bazzi MD Position: [facility] Physician - Primary Care Member Role: PCP Address: Address: [address] [facility] [place] [address]- Name: Lizbeth Collins [place] Position: [facility] Office Staff Member Role: Primary Care Nurse Care Team Related Persons Name: LB HENLEY Address: home [address] [address] Name: LB HENLEY Address: home [address] [place] [address] Name: MILENA CUBA Address: home [address] [place] [address] [address] [place] [address]
--- OUTSIDE RECORDS SUMMARY | 2024-01-23 14:43 | XMS_ITS | Continuity of Care Document ---
Author Organization [facility] Address [address] [place] [address]- Care Team Providers Care [employer] Util[employer] Sales Representative Name Role Phone Rose Mary FISCHER, Sergo Cole Primary Care Physician [phone] Encounter [facility] Date(s): 01/24/22 - 02/23/22 [facility] [address] [place], [place] [address] Allergies, Adverse Reactions, Alerts Substance [...] [01/22/2017] [facility] [id number] 2Admin Note: vis given dated 10/24/12 3Admin Note: vis given dated 10/01/11 4Admin Note: vis 5Admin Note: vis 6Admin Note: vis given: 10/27/2006 7Admin Note: vis given : 10/10/2005 8Admin Note: vis given 2007- Medications acetaminophen 500 mg oral tablet 2 tablet, By Mouth, 4 times a day, PRN NEEDED FOR PAIN, # 100 tablet, 1 Refills, Acute, 219:52:00 EDT, [facility] STORE 41649, 157.48, cm, 10/11/20 9:39:00 EDT, Height Start Date: 10/26/20 Status: Ordered albuterol CFC free 90 mcg/inh inhalation aerosol 1, puffs, Inhalation, 4 times a day, PRN, # 8.5 Gm, Refills 0, Tot. Refills 0, Maintenance, 02/21/22 15:04:00 EST, Aerosol, Route to Pharmacy Electronically, [id number], [facility]/pharmacy #[id number], 157.5, cm, 02/21/22 14:36:00 EST, H... Start Date: 02/21/22 Status: Ordered Alcohol Pads See Instructions, # 200 each, Refills 11, Tot. Refills 11, Maintenance, To cleans before injections5 x a day., 03/03/21 9:18:00 EST, E11.65, Compound, 157.48, cm, 03/01/21 15:54:00 EST, Height Start Date: 03/03/21 Stop Date: 02/26/22 Status: Ordered Sksvt-Ilckbr-Htxl 300 mg oral capsule 1 capsule, By Mouth, 2 times a day, NOT COVERED., # 60 capsule, 11 Refills, [facility] STORE 78659, 157.48, cm, 01/27/21 9:30:00 EDT, Height Start Date: 01/30/21 Status: Ordered ammonium lactate 12% topical cream 1 application, Topically, 2 times a day, # 385 Gm, 5 Refills, Maintenance, 09/08/21 9:35:00 EDT, Cream, [facility]/pharmacy #[id number], Partial fill [...] 08/26/22 14:22:00 EDT, 06/02/21 14:22:00 EST, Tablet, [facility]/pharmacy #[id number], replaces simvastatin,157.48, cm, 06/02/21 14:20:00 EST, [...] tablet, 11 Refills, Maintenance, 08/19/20 16:26:00 EDT, [facility] STORE 83246, 30, TAKE 1 TABLET BY MOUTH DAILY. [...] 03/30/22 13:11:00 EST, 09/01/21 13:11:00 EDT, Gel, [facility]/pharmacy #[id number], 157.48, cm, 08/24/21 8:03:00 EDT,... Start Date: 09/01/21 Stop Date: 03/30/22 Status: Ordered diclofenac 1% topical gel 1 application, Topically, 4 times a day, not to exceed 16 grams/day/single joint of lower extremities, # 100 Gm, 0 Refills, Maintenance, 01/29/22 8:51:00 EDT, Gel, [facility]/pharmacy #[id number], 157.5, cm, 01/20/22 13:38:00 EDT, Height [...] 0 Refills, Maintenance, 02/21/22 15:05:00 EST, Powder, [facility]/pharmacy #[id number], Partial fill upon patient request if the prescription is for a schedule II opioid drug., 1 puffs Inhalation 2 times a day, 157.5,... Start Date: 02/21/22 Status: Ordered fluticasone 50 mcg/inh nasal spray See Instructions, USE 1 SPRAY IN EACH NOSTRIL EVERY DAY, # 16 mL, 5 Refills, 12/29/21 15:10:00 EDT,[id number], USE 1 SPRAY IN EACH NOSTRIL [...] mL, 9 Refills, Maintenance, 08/24/21 9:25:00 EDT, [facility], Partial fill upon patient request if the prescription is for a schedule II opioid d... 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
--- OUTSIDE RECORDS SUMMARY | 2024-01-23 14:43 | XMS_ITS | Continuity of Care Document ---
Author Organization [facility] Address [address] [place] [address]- Care Team Providers Care Manager Water Wastewater Name Role Phone Sergo Bazzi MD Primary Care Physician [phone] Encounter [facility] Date(s): 08/08/23 - 09/07/23 [facility] [address] [place], [place] [address] Allergies, Adverse Reactions, Alerts Substance Reaction Severity Status morphine ITCH DIARRHEA Active Naprosyn gi upset Active Neurontin mental status changes Active Latex powder eats up skin Active CeleBREX gi upset Active Vioxx heart problems Active trazodone DEPRESSION Active cortisone Active Motrin eat lining of stomach Active Ultram nausea, vomit Active Immunizations Given [...] 1Result Comment: [01/22/2017] [facility] [id number] 2Admin Note: vis given dated 10/24/12 3Admin [...] 1 Refills, Acute, 219:52:00 EDT, [facility], 157.48, cm, 10/11/20 9:39:00 EDT, Height Start [...] Date: 03/03/21 Stop Date: 02/26/22 Status: Ordered Ggusc-Ekwrnm-Zcpx 300 mg oral capsule 1 capsule, By Mouth, 2 times a day, NOT COVERED., # 60 capsule, 11 Refills, [facility], 157.48, cm, 01/27/21 9:30:00 EDT, Height Start [...] 1 Refills, Maintenance, 05/22/23 12:07:00 EST, [facility] STORE 84289, 157, cm, 05/06/23 14:23:00 EST, Height, 88.3, kg, 04/16/23 11:33:00EST, Dry Weight Start Date: 05/22/23 Status: Ordered BD Single Use Swab 70% topical pad See Instructions, TO CLEANS BEFORE INJECTIONS 5 X A DAY., # 150 Unknown, 11 Refills, Maintenance, 08/16/22 10:15:00 EDT, [facility], 30, TO CLEANS BEFORE INJECTIONS 5 X A DAY., 157.5, cm, 08/01/22 9:27:00 EDT, Height Start Date: 08/16/22 Status: Ordered busPIRone 5 mg oral tablet 5 mg, 1, tablet, By Mouth, 3 times a day, # 90 tablet, Refills 4, Tot. Refills 4, Maintenance, 09/27/23 7:27:00 EDT, [facility] Gm, 4 Refills, Maintenance, 04/11/23 10:18:00 EST, [facility], 30, APPLY TO AFFECTED AREA TWICE A [...] Refills, Maintenance, 07/02/23 18:31:00 EDT, [facility], 90, TAKE 1 TABLET BY MOUTH DAILY [...] 16:26:00 EDT, Route to Pharmacy Electronically, [facility]/pharmacy #[id number], Partial fill... Start Date: 08/31/23 Stop Date: [...] 1 Refills, Maintenance, 09/02/23 16:20:00 EDT, [facility]/pharmacy [...] [facility] STORE 36390, 30, INHALE 1 PUFF BY MOUTH TWICE A DAY, 157.5, cm, 09/05/22 16:22:00 EDT, Height Start Date: 09/20/22 Status: Ordered fluticasone 50 mcg/inh nasal spray See Instructions, SPRAY 1 SPRAY INTO EACH NOSTRIL EVERY DAY, # 16 mL, 5 Refills, Maintenance, 07/05/22 16:20:00 EDT, [facility], 30, SPRAY 1 SPRAY INTO EACH NOSTRIL [...] tablet, 4 Refills, Maintenance, 03/11/23 15:50:00 EST, [facility] 15413, 157.5, cm, 02/19/23 9:20:00 EST, Height Start [...] mL, 6 Refills, Maintenance, 07/24/23 13:20:00 EDT, [facility], Partial fill upon patient request if the prescription is for a schedule II opioid drug., 157, cm, 07/24/23 12:52:00... Start Date: 07/24/23 Status: Ordered hydrOXYzine hydrochloride 25 mg oral tablet 1 tablet = 25 mg, By Mouth, 2 times a day, as needed for anxiety, # 60 tablet, 4 Refills, Soft Stop, 07/10/23 11:33:00 EDT, Tablet, [facility] [...] [facility] ST[facility] 71687, 157, cm, 04/17/23 7:57:00 EST, Height, 88.3, kg, 04/16/23 11:33:00 EST, Dry Weight Start Date: 04/25/23 Status: Ordered Lantus Solostar Pen 100 units/mL subcutaneous solution See Instructions, Take 45 units in the AM and 45 units daily at bedtime. E11.9., # 30 mL, 9 Refills, Maintenance, 07/24/23 13:18:00 EDT, [facility], Partial fill upon patient requestif the prescription is for a schedule II opioid lucas... Start Date: 07/24/23 Status: Ordered levothyroxine 0.1 mg oral tablet 1 tablet = 100 mcg, By Mouth, Daily, # 30 tablet, 11 Refills, Maintenance, 07/25/23 8:52:00 EDT, [facility]/pharmacy #[id number], stop the 112mcg [...] [facility] STORE 35173, 157.5, cm, 02/19/23 9:20:00 EST, Height Start Date: 03/11/23 Status: Ordered Lyrica 25 mg oral capsule See Instructions, 1 capsule By Mouth 1 time daily at bedtime. E11.9, # 30 each, 2 Refills, Maintenance, 08/08/23 11:19:00 EDT, Capsule, [facility] [...] EST, Height Start Date: 02/22/23 Status: Ordered [place]-3 Fish Oil 1000 mg oral capsule 1 capsule = 1,000 mg, By Mouth, Daily, # 90 capsule, 1 Refills, Maintenance, 08/01/22 10:17:00 EDT,[facility]/pharmacy #[id number], Partial [...] 2 Refills, Maintenance, 07/03/23 14:40:00 EDT, [facility] STORE 68989, 157, cm, 06/24/23 14:54:00 EDT, Height, 88.3, [...] mL, 11 Refills, Maintenance, 08/23/23 11:17:00 EDT, [facility], Partial fill upon patient request if... Start Date: 08/23/23 Status: Ordered Pen [place], 31 G x 8 mm BD Ultra [...] 9:37:00 EDT, Route to Pharmacy Electronically, [facility]/pharmacy #[id number], Partial fill upon patient request if the prescription is for a schedule II opio... Start Date: 07/09/23 Stop Date: 12/06/23 Status: Ordered form layer grabber tool form layer grabber tool, See Instructions, # 1 each, Refills 0, Tot. Refills 0, Maintenance, please dispense one form layer grabber tool, ICD 10 M54.6, length of [...] 10 Refills, Maintenance, 08/15/23 14:04:00 EDT, [facility]/pharmacy #[id number], 157, cm, 07/24/23 12:52:00 EDT, Height, 84, kg, 07/24/23 12:52:00 EDT, Dry Weight Start Date: 08/15/23 Status: Ordered valACYclovir 500 mg oral tablet 1, tablet, By Mouth, 2 times a day, PRN, # 6 tablet, Refills 0, Maintenance, NEEDED FOR OUTBREAKS, 08/05/23 15:33:00 EDT, Route to Pharmacy Electronically, [facility] 75698, 157, cm, 07/24/23 12:52:00 EDT, Height, 84, [...] Refills, Maintenance, 09/17/22 15:25:00 EDT, [facility], 157.5, cm, 09/05/22 16:22:00 EDT, Height Start [...] 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 *Briana Garces, Workers Compensation Examiner, ICP [phone] Confirmed Active PTSD (post-traumatic stress disorder) Confirmed [...] Sergo Cole Position: [facility] Physician - Primary Care Member Role: PCP Address: Address: [address] [facility] [place] [address]- Name: Lizbeth Collins [place] Position: [facility] Office Staff Member Role: Primary Care Nurse Care Team Related Persons Name: LB HENLEY Address: home [address] [place] [address] Name: LB HENLEY Address: home [address] [address] Name: MILENA CUBA Address: home [address] [facility] [address] [place] [id number]
--- OUTSIDE RECORDS SUMMARY | 2024-01-23 14:43 | XMS_ITS | Continuity of Care Document ---
Author Organization [facility] Address [address] [place] [address]- Care Team Providers Care Mold Polisher Name Role Phone Rose Mary FISCHER, Sergo Cole Primary Care Physician [phone] Encounter [facility] Date(s): 10/08/23 - 11/07/23 [facility] [address] [place], [place] [phone] Allergies, Adverse Reactions, Alerts Substance Reaction Severity Status morphine ITCH DIARRHEA Active Neurontin mental status changes Active trazodone DEPRESSION Active cortisone Active Motrin [...] [facility] [id number] 2Admin Note: vis given dated 10/24/12 3Admin [...] 1 Refills, Acute, 219:52:00 EDT, [facility], 157.48, cm, 10/11/20 9:39:00 EDT, Height Start [...] Date: 10/30/23 Stop Date: 10/24/24 Status: Ordered Etlqw-Jharah-Rmzd 300 mg oral capsule 1 capsule, By Mouth, 2 times a day, NOT COVERED., # 60 capsule, 11 Refills, [facility] 81293, 157.48, cm, 01/27/21 9:30:00 EDT, Height Start [...] 0 Refills, Maintenance, 09/10/23 8:57:00 EDT, Solution, [facility]/pharmacy #[id number], Partial fill upon patient request if the prescription is fora schedule II opioid drug., 1 drops Eyes, Both 2 ti... Start Date: 09/10/23 Status: Ordered atorvastatin 80 mg oral tablet See Instructions, TAKE 1 TABLET BY MOUTH DAILY. INSTR:REPLACES SIMVASTATIN, # 90 tablet, 1 Refills,Maintenance, 11/06/23 7:48:00 EDT, [facility] 401[facility], 157, cm, 10/18/23 11:52:00 EDT, Height, 84, kg,07/24/23 12:52:00 EDT, Dry Weight Start Date: 11/06/23 Status: Ordered atorvastatin 80 mg oral tablet 1 tablet, By Mouth, Daily, INSTR:REPLACES SIMVASTATIN, # 90 tablet, 1 Refills, Maintenance, 05/22/23 12:07:00 EST, [facility] 64[facility], 157, cm, 05/06/23 14:23:00 EST, Height, 88.3, kg, 04/16/23 11:33:00EST, Dry Weight Start Date: 05/22/23 Status: Ordered BD Single Use Swab 70% topical pad See Instructions, TO CLEANS BEFORE INJECTIONS 5 X A DAY., # 150 Unknown, 11 Refills, Maintenance, 08/16/22 10:15:00 EDT, [facility], 30, TO CLEANS BEFORE INJECTIONS 5 X A DAY., 157.5, cm, 08/01/22 9:27:00 EDT, Height Start Date: 08/16/22 Status: Ordered busPIRone 5 mg oral tablet 5 mg, 1, tablet, By Mouth, 3 times a day, # 90 tablet, Refills 4, Tot. Refills 4, Maintenance, 09/10/23 10:46:00 EDT, Route to Pharmacy Electronically, [facility]/pharmacy #[id number], Partial fill upon patient request if the prescription is for a schedule II opio... Start Date: 09/10/23 Stop Date: 02/07/24 Status: Ordered capsaicin 0.075% topical cream See Instructions, APPLY TO AFFECTED AREA TWICE A DAY, # 57 Gm, 3 Refills, Maintenance, 11/06/23 7:51:00 EDT, [facility]/pharmacy #[id number], 30, [...] tablet, 5 Refills, Maintenance, 11/06/23 17:25:00 EDT, [facility]/pharmacy #[id number], 1 tablet By [...] 09/10/23 10:46:00 EDT, Route to Pharmacy Electronically, [facility]/pharmacy #[id number], Partial fill... Start Date: 09/10/23 Stop Date: 02/07/24 Status: Ordered diclofenac 1% topical gel See Instructions, APPLY TOPICALLY 4 TIMES A DAY NOT TO EXCEED 16 GRAMS/DAY/SINGLE JOINT OF LOWER EXTREMITIES, # 100 Gm, 4 Refills, Maintenance, 09/10/23 8:56:00 EDT, [facility]/pharmacy #[id number], 30, [...] capsule, 3 Refills, Maintenance, 09/25/23 16:33:00 EDT, [facility]/pharmacy #[id number], Partial fill upon patient request if the prescription is for a schedule II opioid drug., 157, cm, 09/25/23 16:26:00 EDT, Height, 84, k... Start Date: 09/25/23 Status: Ordered esomeprazole 40 mg oral enteric coated capsule 1 capsule = 40 mg, By Mouth, Daily, # 90 capsule, 1 Refills, Maintenance, 09/02/23 16:20:00 EDT, [facility]/pharmacy #[id number], Partial [...] each, 0 Refills, Maintenance, 11/06/23 17:54:00 EDT, [facility]/pharmacy #[id number], 30, 1 puffs Inhalation 2 times a day, 157, cm, 10/18/23 11:52:00 EDT, Height, 84, kg,07/24/23 12:52:00 EDT, Dry Weight Start Date: 11/06/23 Status: Ordered fluticasone 50 mcg/inh nasal spray See Instructions, SPRAY 1 SPRAY INTO EACH NOSTRIL EVERY DAY, # 16 mL, 5 Refills, Maintenance, 11/06/23 17:54:00 EDT, [facility]/pharmacy #[id number], 30, SPRAY 1 [...] Ordered FREESTYLE LANCETS MIS Miscellaneous FREESTYLE LANCETS [facility] Miscellaneous, See Instructions, # 100 Unknown, 5 [...] tablet, 4 Refills, Maintenance, 11/06/23 17:54:00 EDT, [facility]/pharmacy #[id number], 157, cm, 10/18/23 [...] mL, 6 Refills, Maintenance, 07/24/23 13:20:00 EDT, [facility], Partial fill upon patient request if the prescription is for a schedule II opioid drug., 157, cm, 07/24/23 12:52:00... Start Date: 07/24/23 Status: Ordered hydrOXYzine hydrochloride 25 mg oral tablet 1 tablet = 25 mg, By Mouth, 2 times a day, as needed for anxiety, # 60 tablet, 4 Refills, Soft Stop, 09/10/23 10:47:00 EDT, Tablet, [facility]/pharmacy #[id number], Partial fill upon patient request if the prescription is for a schedule II opioid drug., 157, cm, 0... Start Date: 09/10/23 Stop Date: 02/07/24 Status: Ordered lactase 3000 u oral tablet 3 tablet, By Mouth, 3 times a day with meals, X30 DAYS., # 120 tablet, 3 Refills, Maintenance, 11/06/23 7:51:00 EDT, [facility]/pharmacy #[id number], 157, cm, 10/18/23 11:52:00 EDT, Height, 84, kg, 07/24/23 12:52:00 EDT, Dry Weight Start Date: 11/06/23 Status: Ordered Lantus Solostar Pen 100 units/mL subcutaneous solution See Instructions, Take 45 units in the AM and 45 units daily at bedtime. E11.9., # 30 mL, 9 Refills, Maintenance, 07/24/23 13:18:00 EDT, [facility], Partial fill upon patient requestif the prescription is for a schedule II opioid lucas... Start Date: 07/24/23 Status: Ordered levothyroxine 0.1 mg oral tablet 1 tablet = 100 mcg, By Mouth, Daily, # 30 tablet, 11 Refills, Maintenance, 07/25/23 8:52:00 EDT, [facility]/pharmacy #[id number], stop the 112mcg dose, 157, cm, 07/24/23 12:52:00 EDT, Height, 84, kg, 07/24/23 12:52:00 EDT, Dry Weight Start Date: 07/25/23 Stop Date: 07/19/24 Status: Ordered lidocaine 5% topical ointment See Instructions, APPLY TO AFFECTED AREA 3 TIMES A DAY, # 35.44 Gm, 3 Refills, Maintenance, 11/06/23 7:51:00 EDT, [facility]/pharmacy #[id number], 30, [...] tablet, 1 Refills, Maintenance, 10/17/23 13:55:00 EDT, [facility]/pharmacy #[id number], 157, cm, 10/12/23 11:14:00 EDT, Height, 84, kg, 07/24/23 12:52:00 EDT, Dry Weight Start Date: 10/17/23 Status: Ordered Lyrica 25 mg oral capsule See Instructions, 1 capsule By Mouth 1 time daily at bedtime. E11.9, # 30 each, 2 Refills, Maintenance, 11/05/23 18:01:00 EDT, Capsule, [facility]/pharmacy #[id number], Partial fill upon patient request if the prescription is for a schedule II opioid drug., 157, c... Start Date: 11/05/23 Status: Ordered mirtazapine 15 mg oral tablet 1 tablet = 15 mg, By Mouth, Daily at bedtime, # 30 tablet, 4 Refills, Maintenance, 09/10/23 10:47:00 EDT, Tablet, [facility]/pharmacy #[id number], Partial fill upon patient request if the prescription is for a schedule II opioid drug., 157, cm, 09/10/23 8:42:00 ED... Start Date: 09/10/23 Stop Date: 02/07/24 Status: Ordered Murine Ear Drops 6.5% solution See Instructions, INSTILL 5 DROPS INTO BOTH EARS TWICE DAILY FOR 7 DAYS, # 15 mL, 0 Refills, Maintenance, 09/30/23 10:01:00 EDT, [facility] STORE 25011, 30, INSTILL 5 DROPS INTO BOTH EARS TWICE DAILY FOR 7 DAYS, 157, cm, 09/25/23 16:26:00 EDT, Height, 84, kg... Start Date: 09/30/23 Status: Ordered Narcan 4 mg/0.1 mL nasal spray = 4 mg, Nares, Both, Once, # 2 each, 2 Refills, Soft Stop, 02/22/23 14:30:00 EST, [facility]/pharmacy #[id number], Partial fill upon patient request if the prescription is for a schedule II opioid drug., 157.5, cm, 02/19/23 9:20:00 EST, Height Start Date: 02/22/23 Status: Ordered [place]-3 Fish Oil 1000 mg oral capsule 1 capsule = 1,000 mg, By Mouth, Daily, # 90 capsule, 1 Refills, Maintenance, 08/01/22 10:17:00 EDT,[facility]/pharmacy #[id number], Partial fill upon [...] Refills, Maintenance, 06/14/22 16:40:00 EDT, EC Tablet, [facility]/pharmacy #[id number], Partial fill upon patient request if the prescription is for a schedule II opioid drug., 157.5,... Start Date: 06/14/22 Status: Ordered ondansetron 4 mg oral tablet 1 tablet, By Mouth, Every 8 hours, PRN NEEDED FOR NAUSEA AND VOMITING FOR, # 30 tablet, 2 Refills, Maintenance, 07/03/23 14:40:00 EDT, [facility] STORE 64994, 157, cm, 06/24/23 14:54:00 EDT, Height, 88.3, [...] mL, 11 Refills, Maintenance, 08/23/23 11:17:00 EDT, [facility], Partial fill upon patient request if... Start Date: 08/23/23 Status: Ordered Pen [place], 31 G x 8 mm BD Ultra [...] 09/10/23 10:47:00 EDT, Route to Pharmacy Electronically, [facility]/pharmacy #[id number], Partial fill upon patient request if the prescription is for a schedule II opi... Start Date: 09/10/23 Stop Date: 02/07/24 Status: Ordered rubber stamp assembler grabber tool rubber stamp assembler grabber tool, See Instructions, # 1 each, Refills 0, Tot. Refills 0, Maintenance, please dispense one rubber stamp assembler grabber tool, ICD 10 M54.6, length [...] tablet, 10 Refills, Maintenance, 10/08/23 15:43:00 EDT, [facility], 157, cm, 09/25/23 16:26:00 EDT, Height, 84, kg, 07/24/23 12:52:00 EDT, Dry Weight Start Date: 10/08/23 Status: Ordered valACYclovir 500 mg oral tablet See Instructions, TAKE 1 TABLET BY MOUTH 2 TIMES A DAY,X3 DAYS, NEEDED FOR OUTBREAKS, # 6 tablet, Refills 0, Maintenance, 11/06/23 7:49:00 EDT, Instructions Replace Required Details, Route to Pharmacy Electronically, [facility], 157, cm, 10/17... Start Date: 11/06/23 Status: Ordered valACYclovir 500 mg oral tablet 1, tablet, By Mouth, 2 times a day, PRN, # 6 tablet, Refills 0, Maintenance, NEEDED FOR OUTBREAKS, 10/09/23 10:57:00 EDT, Route to Pharmacy Electronically, [facility], 157, cm, 09/25/23 16:26:00 EDT, Height, 84, [...] 5 Confirmed 02/20/10 Active *Briana Garces, Retail Cosmetics Sales Counter Manager, ICP [phone] Confirmed Active PTSD (post-traumatic stress disorder) Confirmed [...] [address] [facility] [place] [address]- Name: Libzeth Collins [place] Position: [facility] Office Staff Member Role: Primary Care Nurse Care Team Related Persons Name: LB HENLEY Address: home [address] [address] Name: LB HENLEY Address: [address] [place] [address] Name: MILENA CUBA Address: home [address] [facility] [address] [place] [address]
--- OUTSIDE RECORDS SUMMARY | 2024-01-23 14:43 | XMS_ITS | Continuity of Care Document ---
Author Organization [facility] Address [address] [place] [address]- Care Team Providers Care Employee Relation Manager Name Role Phone Rose Mary FISCHER, Sergo Cole Primary Care Physician Encounter [facility] Date(s): 04/26/20 - 05/26/20 [facility] [address] [place], [place] [address] Allergies, Adverse Reactions, [...] Given 1Result Comment: [01/22/2017] [facility] [id number] 2Admin Note: vis given dated 10/24/12 3Admin [...] mL, 5 Refills, Maintenance, 09/02/19 13:54:00 EDT, [facility], E11.9, 157.48, cm, 04/27/19 [...] tablet, 3 Refills, Maintenance, 02/01/20 15:26:00 EST, [facility]/pharmacy #[id number], 157.48, cm, 01/25/20 15:23:00 EDT, [...] Refills, Maintenance, 02/23/20 11:05:00 EST, Tablet, [facility]/pharmacy #[id number], replaces simvastatin, 157.48, cm, 01/25/20 15:23:00 EDT, Height Start Date: 02/23/20 Stop Date: 05/18/21 Status: Ordered atorvastatin 80 mg oral tablet 1 tablet = 80 mg, By Mouth, Daily, for 90 days, replaces Simvastatin, # 90 tablet, 4 Refills, Hard Stop 04/01/21 14:01:00 EST, 01/07/20 14:01:00 EDT, Tablet, [facility]/pharmacy #[id number], replaces simvastatin,157.48, cm, 12/29/19 15:55:00 EDT, Height Start Date: 01/07/20 Stop Date: 04/01/21 Status: Ordered BD ultra fine III pen needles [id number] BD ultra fine III pen needles [id number], See Instructions, # 360 each, Refills 3, [...] 60 Gm, 4 Refills, Acute, [facility], 30, APPLY TO AFFECTED AREA TWICE A [...] 6 Refills, Maintenance, 12/24/19 9:18:00 EDT, Gel, [facility]/pharmacy #[id number], 157.48, cm, 04/27/19 15:43:00 EST, [...] 5 Refills, Maintenance, 01/07/20 14:00:00 EDT, Tablet, [facility]/pharmacy #[id number], 157.48, cm, 12/29/19 15:55:00 EDT, [...] Gm, 1 Refills, Maintenance, 12/10/19 12:46:00 EDT, [facility]/pharmacy #[id number], 1 sprays Nares, Both Daily,x30 [...] 3, Maintenance, use up to check blood [id number] per day. 90 DAY SUPPLY, E11.9, 02/29/20 [...] mL, 2 Refills, Maintenance, 04/07/20 16:52:00 EST, [facility], Partial fill upon patient [...] mL, 11 Refills, Maintenance, 09/02/19 13:55:00 EDT, [facility], NEEDS 30 ML FOR [...] 35.44 Gm, 11 Refills, Acute, [facility], 30, APPLY TO AFFECTED AREA 3 TIMES A DAY, 157.48, cm, 03/04/20 14:14:00 EST, Height Start Date: 05/10/20 Status: Ordered losartan 50 mg oral tablet 50 mg, 1, tablet, By Mouth, Daily, can substitute 25mg tabs x2 if needed, # 30 tablet, Refills 5, Tot. Refills 5, Maintenance, 01/11/20 11:21:00 EDT, Route to Pharmacy Electronically, [facility]/pharmacy #[id number], 157.48, cm, 12/29/19 15:55:00 EDT, [...] Refills, Maintenance, 08/14/19 8:49:00 EDT, Tablet, [facility]/pharmacy #[id number], 1 tablet By Mouth Daily,x90 days,Instr:Take it 2 hours separate from Orlistat ([place]), 157.... Start Date: 08/14/19 Stop Date: 11/06/20 Status: Ordered oxyCODONE 5 mg oral tablet 5 mg, 1, tablet, By Mouth, Every 12 hours, PRN, Refills 0, Tot. Refills 0, Maintenance, as needed for pain, 02/16/19 14:51:00 EST, Partial fill upon patient request Start Date: 02/16/19 Status: Ordered Pen [place], 31 G x 8 mm BD Ultra [...] 11/17/20 13:36:00 EDT, 04/21/20 13:36:00 EST, Tablet, [facility]/pharmacy #[id number], 157.48, cm, 03/04/20... Start Date: 04/21/20 Stop Date: 11/17/20 Status: Ordered Topamax 25 mg oral tablet 2 tablet = 50 mg, By Mouth, Daily at bedtime, # 60 tablet, 6 Refills, Maintenance, 04/21/20 13:35:00 EST, Tablet, [facility]/pharmacy #[id number], 157.48, cm, 03/04/20 14:14:00 EST, Height Start Date: 04/21/20 Stop Date: 11/17/20 Status: Ordered Trulicity Pen 1.5 mg/0.5 mL subcutaneous solution 0.5 mL = 1.5 mg, Subcutaneous Injection, Every Saturday, for 90 days, # 7.5 mL, 3 Refills, Hard Stop 12/08/21 15:26:00 EDT, 12/13/20 15:26:00 EDT, Solution, [facility], E11.65, 157.48, cm, 04/27/19 15:43:00 EST, Height Start Date: 12/13/20 Stop Date: 12/08/21 Status: Ordered Trulicity Pen 1.5 mg/0.5 mL subcutaneous solution 0.5 mL = 1.5 mg, Subcutaneous Injection, Every Saturday, E11.9, # 7.5 mL, 3 Refills, Maintenance, 12/08/21 15:26:00 EDT, Solution, [facility], E11.65, 157.48, cm, 03/04/20 14:14:00 EST, Height Start Date: 12/08/21 Stop Date: 12/03/22 Status: Ordered Trulicity Pen 1.5 mg/0.5 mL subcutaneous solution 0.5 mL = 1.5 mg, Subcutaneous Injection, Every Saturday, for 90 days, # 6.5 mL, 5 Refills, Hard Stop 12/13/20 15:26:00 EDT, 06/22/19 15:26:00 EDT, Solution, [facility]/pharmacy #4471, E11.65, 157.48, cm, 04/27/19 15:43:00 [...] Active *Briana Garces, Care Coor dinator, ICP [phone](Confirmed) Active Reflux(Confirmed) Active 73453 -EF 60-65%. No wall motion abnormalities, Does [...]
--- OUTSIDE RECORDS SUMMARY | 2024-01-23 14:43 | XMS_ITS | Continuity of Care Document ---
Author Organization [facility] Address [address] [place] [address]- Care Team Providers Care Desulfurizer Machine Name Role Phone Sergo Bazzi MD Primary Care Physician Encounter [facility] Date(s): 04/23/22 - 05/24/22 [facility] [address], [place] [address] Attending Physician: Sergo Bazzi MD Admitting [...] 1Result Comment: [01/22/2017] [facility] [id number] 2Admin Note: vis given dated 10/24/12 3Admin Note: vis given dated 10/01/11 4Admin Note: vis 5Admin Note: vis 6Admin Note: vis given: 10/27/2006 7Admin Note: vis given : 10/10/2005 8Admin Note: vis given 2007- Medications acetaminophen 500 mg oral tablet 2 tablet, By Mouth, 4 times a day, PRN NEEDED FOR PAIN, # 100 tablet, 1 Refills, Acute, 219:52:00 EDT, [id number], 157.48, cm, 10/11/20 9:39:00 EDT, Height Start Date: 10/26/20 Status: Ordered Alcohol Pads See Instructions, # 200 each, Refills 11, Tot. Refills 11, Maintenance, To cleans before injections5 x a day., 03/03/21 9:18:00 EST, E11.65, Compound, 157.48, cm, 03/01/21 15:54:00 EST, Height Start Date: 03/03/21 Stop Date: 02/26/22 Status: Ordered Tkcet-Jzcter-Yooo 300 mg oral capsule 1 capsule, By Mouth, 2 times a day, NOT COVERED., # 60 capsule, 11 Refills, [id number], 157.48, cm, 01/27/21 9:30:00 EDT, Height Start Date: 01/30/21 Status: Ordered ammonium lactate 12% topical cream 1 application, Topically, 2 times a day, # 385 Gm, 3 Refills, Maintenance, 04/05/22 13:30:00 EST, Cream, [facility]/pharmacy #[id number], Partial fill upon patient request [...] Refills, Maintenance, 03/05/22 13:29:00 EST, [id number], 30, APPLY TO AFFECTED AREA TWICE A [...] Refills, Maintenance, 08/19/20 16:26:00 EDT, [id number], 30, TAKE 1 TABLET BY MOUTH DAILY. [...] Pharmacy Electronically, [facility]/pharmacy... Start Date: 05/02/22 Status: Ordered diclofenac 1% topical gel See Instructions, APPLY TOPICALLY 4 TIMES A DAY NOT TO EXCEED 16 GRAMS/DAY/SINGLE JOINT OF LOWER EXTREMITIES, # 100 Gm, 6 Refills, Maintenance, 03/19/22 9:28:00 EST, [id number], 30, APPLY TOPICALLY 4 TIMES A DAY NOT TO EXCEED 16 GRAMS/DAY/SINGLE... Start Date: 03/19/22 Status: Ordered docusate sodium 100 mg oral capsule 100 mg, 1, capsule, By Mouth, 2 times a day, PRN, # 60 capsule, Refills 5, Tot. Refills 5, Maintenance, as needed for constipation, 11/10/21 9:17:00 EDT, [facility] each, 0 Refills, Maintenance, 03/22/22 16:35:00 EST, [facility], 30, INHALE 1 PUFF BY MOUTH TWICE A DAY, 157.5, cm, 03/22/22 13:25:00 EST, Height Start Date: 03/22/22 Status: Ordered fluticasone 50 mcg/inh nasal spray See Instructions, USE 1 SPRAY IN EACH NOSTRIL EVERY DAY, # 16 mL, 5 Refills, 12/29/21 15:10:00 EDT,[facility]/pharmacy #[id number], USE 1 SPRAY IN EACH [...] mL, 3 Refills, Maintenance, 03/22/22 15:43:00 EST, [facility], Partial fill upon patie... Start Date: 03/22/22 Status: Ordered Lantus Solostar Pen 100 units/mL subcutaneous solution See Instructions, Decreased to 60U once a day as of 12/29/19, # 30 mL, 9 Refills, Maintenance, 09/20/20 15:10:00 EDT, [facility], NEEDS 30 ML FOR 30 DAY SUPPLY E11.9, 157.48, cm, 05/31/20 9:41:00 EST, Height Start Date: 09/20/20 Status: Ordered Lantus Solostar Pen 100 units/mL subcutaneous solution See Instructions, Take 80 units via Subcutaneous Infusion Daily at bedtime. E11.9., # 30 mL, 9 Refills, Maintenance, 03/22/22 15:41:00 EST, [facility], Partial fill [...] 05/01/21 Start Date: 06/02/21 Status: Ordered Pen [place], 31 G x 8 mm BD Ultra [...] 1 Refills, Maintenance, 04/11/22 11:31:00 EST, Tablet, [facility]/pharmacy #[id number], Partial fill upon patient request if the prescription is for a schedule II opioid drug., 157.5, cm, 04/11/22 10:50:00 EST, Height Start Date: 04/11/22 Status: Ordered QUEtiapine 25 mg oral tablet 25 mg, 1, tablet, By Mouth, 2 times a day, # 60 tablet, Refills 4, Tot. Refills 4, Maintenance, 05/02/22 14:40:00 EST, Route to Pharmacy Electronically, [facility]/pharmacy #[id number], Partial fill upon patient request if the prescription is for a schedule II opi... Start Date: 05/02/22 Status: Ordered summer law clerk grabber tool summer law clerk grabber tool, See Instructions, # 1 each, Refills 0, Tot. Refills 0, Maintenance, please dispense one summer law clerk grabber tool, ICD 10 M54.6, length of [...] 6 Refills, Maintenance, 04/19/22 14:35:00 EST, Tablet, [facility]/pharmacy #[id number], 157.5, cm, 04/11/22 10:50:00 EST, Height Start Date: 04/19/22 Stop Date: 11/15/22 Status: Ordered Trulicity Pen 3 mg/0.5 mL subcutaneous solution See Instructions, INJECT 0.5ML SUBCUTANEOUSLY EVERY WEEK, ROTATE INJECTION SITES, # 2 mL, 5 Refills, 01/23/22 16:33:00 EDT, [facility], 157.5, cm, 01/20/22 13:38:00 EDT, Height Start Date: 01/23/22 Status: Ordered Trulicity Pen 4.5 mg/0.5 mL subcutaneous solution See Instructions, 4.5 mg Subcutaneous Infusion weekly. E11.9, # 4 each, 5 Refills, Maintenance, 03/22/22 15:41:00 EST, [facility], Partial fill [...] 05/18/22 14:49:00 EST, Route to Pharmacy Electronically, [facility]/pharmacy #[id number], 157.5, cm, 05/09/22... 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 No wall motion abnormalities, Does [...] Team Personnel Name: Sergo Bazzi MD Position: [facility] Primary Care Physician Member Role: PCP Address: Address: [address] [place] [address] [place] [address]- Name: Lizbeth Barnhart Position: [facility] RN Member Role: Primary Care Nurse Care Team Related Persons Name: KALE LB Address: home [address] [place] [id number] Name: LB HENLEY Address: [address] [place] [address] Name: MILENA CUBA Address: home [address] [place] [address] [address] [place] [address]
--- OUTSIDE RECORDS SUMMARY | 2024-01-23 14:43 | XMS_ITS | Continuity of Care Document ---
Author Organization [facility] Address [address] [place] [address]- Care Team Providers Care Phthalic Acid Purifier Name Role Phone Rose Mary FISCHER, Sergo Cole Primary Care Physician Encounter [facility] Date(s): 07/24/23 - 07/31/23 [facility] [address], [place] [address] Attending Physician: Veit FISCHER, Kerry Liam Allergies, Adverse Reactions, Alerts Substance Reaction Severity [...] Given 1Result Comment: [01/22/2017] [facility] [id number] 2Admin Note: vis given dated 10/24/12 3Admin [...] 1 Refills, Acute, 219:52:00 EDT, [facility], 157.48, cm, 10/11/20 9:39:00 EDT, Height Start [...] Date: 03/03/21 Stop Date: 02/26/22 Status: Ordered Gfysb-Geexwt-Junu 300 mg oral capsule 1 capsule, By Mouth, 2 times a day, NOT COVERED., # 60 capsule, 11 Refills, [facility], 157.48, cm, 01/27/21 9:30:00 EDT, Height Start [...] Refills, Maintenance, 05/22/23 12:07:00 EST, [facility], 157, cm, 05/06/23 14:23:00 EST, Height, 88.3, kg, 04/16/23 11:33:00EST, Dry Weight Start Date: 05/22/23 Status: Ordered BD Single Use Swab 70% topical pad See Instructions, TO CLEANS BEFORE INJECTIONS 5 X A DAY., # 150 Unknown, 11 Refills, Maintenance, 08/16/22 10:15:00 EDT, [facility], 30, TO CLEANS BEFORE INJECTIONS 5 X A DAY., 157.5, cm, 08/01/22 9:27:00 EDT, Height Start Date: 08/16/22 Status: Ordered busPIRone 5 mg oral tablet 5 mg, 1, tablet, By Mouth, 3 times a day, # 90 tablet, Refills 4, Tot. Refills 4, Maintenance, 09/27/23 7:27:00 EDT, [facility] Refills, Maintenance, 04/11/23 10:18:00 EST, [facility], 30, APPLY TO AFFECTED AREA TWICE A [...] Refills, Maintenance, 07/02/23 18:31:00 EDT, [facility], 90, TAKE 1 TABLET BY MOUTH DAILY [...] 08/31/23 16:26:00 EDT, Route to Pharmacy Electronically, [facility]/pharmacy #[id number], Partial fill... Start Date: 08/31/23 Stop Date: 01/28/24 Status: Ordered diazepam 5 mg oral tablet 5 mg, 1, tablet, By Mouth, 2 times a day, for 30 days, TAKE 1 TABLET BY MOUTH TWICE A DAY., # 60 tablet, Refills 1, Tot. Refills 1, Acute 08/31/23 16:26:00 EDT, 07/02/23 16:26:00 EDT, [id number]... Start Date: 07/02/23 Stop [...] capsule, 1 Refills, Maintenance, 03/07/23 13:32:00 EST, [facility]/pharmacy #[id number], Partial [...] each, 0 Refills, Maintenance, 09/20/22 9:36:00 EDT, [facility], 30, INHALE 1 PUFF BY MOUTH TWICE A DAY, 157.5, cm, 09/05/22 16:22:00 EDT, Height Start Date: 09/20/22 Status: Ordered fluticasone 50 mcg/inh nasal spray See Instructions, SPRAY 1 SPRAY INTO EACH NOSTRIL EVERY DAY, # 16 mL, 5 Refills, Maintenance, 07/05/22 16:20:00 EDT, [facility], 30, SPRAY 1 SPRAY INTO EACH NOSTRIL [...] tablet, 4 Refills, Maintenance, 03/11/23 15:50:00 EST, [facility], 157.5, cm, 02/19/23 9:20:00 EST, Height Start [...] mL, 6 Refills, Maintenance, 07/24/23 13:20:00 EDT, [facility], Partial fill upon patient request if the prescription is for a schedule II opioid drug., 157, cm, 07/24/23 12:52:00... Start Date: 07/24/23 Status: Ordered hydrOXYzine hydrochloride 25 mg oral tablet 1 tablet = 25 mg, By Mouth, 2 times a day, as needed for anxiety, # 60 tablet, 4 Refills, Soft Stop, 07/10/23 11:33:00 EDT, Tablet, [facility]/pharmacy #[id number], Partial fill upon patient request if the prescription is for a schedule II opioid drug., 157, cm, 0... Start Date: 07/10/23 Stop Date: 12/07/23 Status: Ordered lactase 3000 u oral tablet 3 tablet, By Mouth, 3 times a day with meals, X30 DAYS., # 120 tablet, 5 Refills, Maintenance, 04/25/23 15:25:00 EST, [facility], 157, cm, 04/17/23 7:57:00 EST, Height, 88.3, kg, 04/16/23 11:33:00 EST, Dry Weight Start Date: 04/25/23 Status: Ordered Lantus Solostar Pen 100 units/mL subcutaneous solution See Instructions, Take 45 units in the AM and 45 units daily at bedtime. E11.9., # 30 mL, 9 Refills, Maintenance, 07/24/23 13:18:00 EDT, [facility], Partial fill upon patient requestif the prescription is for a schedule II opioid lucas... Start Date: 07/24/23 Status: Ordered levothyroxine 0.1 mg oral tablet 1 tablet = 100 mcg, By Mouth, Daily, # 30 tablet, 11 Refills, Maintenance, 07/25/23 8:52:00 EDT, [facility]/pharmacy #[id number], stop the 112mcg [...] Gm, 11 Refills, Maintenance, 07/03/22 18:22:00 EDT, [facility]/pharmacy #[id number], 30, Duplicate Rx. Original sent 07/03/22 with routing error. Re-sending to pharmacy, APPLY TO AFFECTED AREA 3 TIMES A... Start Date: 07/03/22 Status: Ordered losartan 50 mg oral tablet See Instructions, TAKE 1 TABLET BY MOUTH EVERY DAY, # 90 tablet, 1 Refills, Maintenance, 03/11/23 15:50:00 EST, [facility], 157.5, cm, 02/19/23 9:20:00 EST, Height Start [...] tablet, 4 Refills, Maintenance, 07/09/23 9:34:00EDT, Tablet, [facility]/pharmacy #[id number], Partial [...] EST, Height Start Date: 02/22/23 Status: Ordered Stickney-3 Fish Oil 1000 mg oral capsule 1 [...] tablet, 2 Refills, Maintenance, 07/03/23 14:40:00 EDT, [facility] 574[facility], 157, cm, 06/24/23 14:54:00 EDT, Height, 88.3, kg, 04/16/23 11:33:00 EST, Dry Weight Start Date: 07/03/23 Stop Date: 07/13/23 Status: Ordered oxyCODONE 10 mg oral tablet TAKE 1/2 TAB EVERY 12 HOURS NEEDED FOR SEVERE NECK/LOW BACK PAIN. DO NOT FILL UNTIL 05/01/21 Start Date: 06/02/21 Status: Ordered Pen [place], 31 G x 8 mm BD Ultra [...] 07/09/23 9:37:00 EDT, Route to Pharmacy Electronically, [facility]/pharmacy #[id number], Partial fill upon patient request if the prescription is for a schedule II opio... Start Date: 07/09/23 Stop Date: 12/06/23 Status: Ordered engineering agent grabber tool engineering agent grabber tool, See Instructions, # 1 each, Refills 0, Tot. Refills 0, Maintenance, please dispense one engineering agent grabber tool, ICD 10 M54.6, length [...] tablet, 10 Refills, Maintenance, 01/17/23 8:54:00 EDT, [facility], 157.5, cm, 12/28/22 15:12:00 EDT, Height Start Date: 01/17/23 Status: Ordered Trulicity Pen 4.5 mg/0.5 mL subcutaneous solution See Instructions, INJECT 4.5 MG SUBCUTANEOUSLY ONCE A WEEK, # 2 mL, 10 Refills, Maintenance, 06/10/23 12:32:00 EDT, [facility], 157, cm, 05/06/23 14:23:00 EST, Height, 88.3, kg, 04/16/23 11:33:00 EST, Dry Weight Start Date: 06/10/23 Status: Ordered valACYclovir 500 mg oral tablet 1, tablet, By Mouth, 2 times a day, PRN, # 6 tablet, Refills 0, Maintenance, NEEDED FOR OUTBREAKS, 05/22/23 12:07:00 EST, Route to Pharmacy Electronically, [facility], 157, cm, 05/06/23 14:23:00 EST, Height, 88.3, [...] each, 0 Refills, Maintenance, 09/17/22 15:25:00 EDT, [facility] 83[facility], 157.5, cm, 09/05/22 16:22:00 EDT, Height Start [...] 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 *Briana Garces, Staff Attorney, ICP [phone] Confirmed Active PTSD (post-traumatic stress disorder) Confirmed [...] oldest [Reference Range]: 1 Height 157 cm (07/24/23 12:52 PM) Weight 84 kg (07/24/23 12:52 PM) Oxygen Saturation [94-100 %] 96 % (07/24/23 12:52 PM) Pulse Rate [55-90 bpm] 82 bpm (07/24/23 12:52 PM) Body Mass Index [18.5-24.99 kg/m2] 34.08 kg/m2 *>HHI* (07/24/23 12:52 PM) Blood Pressure [90-138/55-84 mm Hg] 117/ 76mm Hg (07/24/23 12:52 PM) Mode of Delivery (Oxygen) Nasal cannula (07/24/23 12:52 PM) Blood pressure sites Arm, right (07/24/23 12:52 PM) Dry Weight 84 kg (07/24/23 12:52 PM) Weight Obtained Via Standing scale (07/24/23 12:52 PM) Dry Weight Obtained Via Standing scale (07/24/23 12:52 PM) Social History Social History Type Response Smoking Status Never smoker entered on: 11/10/13 Sex Female Note * Evette Adkins: PERFORM, SIGN, VERIFY Event Display: Patient Education/Instruction Authored Date: [id number] [facility] *[facility] Clinical Summary Name MICHAEL GAO Age 63 Years 1960 PCP Rose Mary FISCHER, Sergo Cole PCP Visit Date 07/24/2023 12:39:00 Patient Instructions 1. Long acting insulin(Lantus ): Take 45??units twice a??day regardless of meal intake -How to adjust long acting insulin Adjust??Long-Acting??Insulin ? If wrusjvo-nc-bsse-morning sugar stable: no need to??adjust??long acting insulin ?? If dqnivyk-ul-gxan-morning sugar rises without eating snack at night: may need more long acting insulin ?? If wkusssq-xr-tyhq-morning sugar drops without giving correction insulin: may need less long actinginsulin The Best Dose is to keep you sugar stable at night between 70-140s without rising or dropping 2. Meal insulin(Humalog): take 10-15 minutes before each major meal??based on the scale in the table below (skip one dose if miss a meal) How many meal insulin you need will be??depend on the food you eat (For example, if you plan to eatonly half of the regular??meal, then take half amount of??meal??insulin). Meal insulin only works if you eat similar amount if carbohydrate per meal (recommend 40-60 gram carbohydrate per meal). Some people??may need different dose of??meal insulin for breakfast, lunch and dinner depend on the food. Take??meal insulin??with meal only; If you skip a major meal, you should also skip that meal insulin. If you skip a meal but glucose is already high, refer to the 2nd column of the table below??for correction dose ( when not eating ) If you are going to eat but??glucose??is already above goal prior to eat, add additional insulin tomeal insulin based on the scale in 1st column ( with meal )?? Blood Sugar With Meal When not eating ??<70 Treat hypoglycemia Treat hypoglycemia ??71-150 ??Meal =4 0 ??151-200 ??Meal +??=6 2 ??201-250 ??Meal +??=8 4 ??251-300 ??Meal +??=10 6 ??301-350 ??Meal +??=12 8 ??350 or above ??Meal +??=14 10 ?? -adjust the left side of scale by 1-2 units??depend on your response to the meal insulin. you goal is to have a meal dose to keep you sugar stable??(not rising or drooping) after taking the meal insulin when sugar is between 70-150 3. Vasquez points??when adjusting insulin: ?? Adjust low first,??then??high??later. ?Avoid??eating/snacking??between-meals or??overnight,??if??possible,??to??allow accurate??glucose reading ?Meal??(breakfast, lunch, dinner)??insulin only works if you eat similar amounts of??carbohydrate??(usually 40-60 grams??per meal).??Meal insulin??requirements??will be different??if you eat??different??amount of carbohydrate??for different meals. ?Meal insulin should be??given??10-15 minutes before meal??to??allow??enough??time??for??it??to take??effects. ?Check glucose??4 times per day??before each??meal??and before bedtime.??Keeping??logs??is important??and??please bring the log??to your??clinic??visit. Additional Instructions: Scheduled Appointments?? Future Appointments ?[facility] ?[address]??[place],??[place],??[address] ?Phone:??[phone]?Fax:??-- ?Appt. Date:??07/30/2023?4:00 PM ?Scheduled Provider:??[facility] 4 ?*[facility] ?[address] ?[facility] ?[place],??[place],??[address] ?Phone:??[phone]?Fax:??-- ?Appt. Date:??08/02/2023?2:00 PM ?Scheduled Provider:??Shoaib REIS, Kelly Jones ?*[place] ?[address] ?[address] ?[place],??[place],??[address] ?Phone:??[phone]?Fax:??-- ?Appt. Date:??08/15/2023?2:00 PM ?Scheduled Provider:??Sammy REIS , Kanu Wheeler ?*[facility] ?[address]??[place],??[place],??[address] ?Phone:??--?Fax:??-- ?Appt. Date:??08/22/2023?1:25 PM ?Scheduled Provider:??Chadwick FISCHER, Asmita ?*[facility] ?[address] ?[place],??[place],??[address] ?Phone:??[phone]?Fax:??-- ?Appt. Date:??09/10/2023?8:30 AM ?Scheduled Provider:??Rose Mary FISCHER , Sergo C ?*[facility] ?[address]??[place],??[place],??[address] ?Phone:??[phone]?Fax:??-- ?Appt. Date:??09/10/2023?10:30 AM ?Scheduled Provider:??Rajesh WALLACE, Jamila E ?*[facility] ?[address]??[place],??[place],??[address] ?Phone:??--?Fax:??-- ?Appt. Date:??09/25/2023?4:00 PM ?Scheduled Provider:??Edel CERVANTES, Drake Ott ?*[facility] ?[address]??[place],??[place],??[address] ?Phone:??--?Fax:??-- ?Appt. Date:??10/15/2023?8:45 AM ?Scheduled Provider:??Belkys Mayorga Follow-Up Instructions ?? With: Address: When: Asmita Genao [facility] [place] [address] 08/22/2023 1:25 PM Diagnosis Hypothyroidism, unspecified; Type 2 diabetes mellitus without complications Medications: Please continue your medications until treatment is completed or stopped by your provider. Discuss any questions related to medications with your provider. Medications to Continue Taking That Have Changed [facility], [address] [place], [place] [id number], [phone] - Durable Medical Equipment (Freestyle Lite Lancets) use as directed for Type 2 Diabetes Mellitus to check BGs 4x dialy. E11.9. Refills: 11. Next Dose: - Durable Medical Equipment (Freestyle Lite Test Strips) use as directed for Type 2 Diabetes Mellitus to check BGs 4x dialy. E11.9. Refills: 8. Next Dose: - Insulin Lispro (Humalog Kwik Pen 100 units/mL subcutaneous injection) max daily dose 42 units. E11.9. Refills: 6. Next Dose: These medications were not printed or sent to your pharmacy - Durable Medical Equipment (Abdominal Binder) M62. 08 Diastasis Recti Wear throughout the day. Okay to take off at night and when showering.. Refills: 0. Next Dose: - Durable Medical Equipment (Adult Pull Up Briefs) Up to 6 per day Size: L Directions: Use as needed for incontinence Dx: R32, R15 Duration: Lifetime. Refills: 11. Next Dose: - Durable Medical Equipment (Alcohol Pads) To cleans before injections 5 x a day.. Refills: 11. Next Dose: - Durable Medical Equipment (CPAP Machine) CPAP 8 cm H20, use Daily when sleeping. Refills: 0. Next Dose: - Durable Medical Equipment (CPAP Supplies) Directions: Use daily when sleeping Dx: STORMY G47.33 Duration: Lifetime. Refills: 0. Next Dose: - Durable Medical Equipment (Disposable Underpads) Up to 6 per day Directions: Use as needed for incontinence Dx: R32, R15 Duration: Lifetime. Refills: 11. Next Dose: - Durable Medical Equipment (Freestyle Lite Monitor) use as directed for Type 2 Diabetes Mellitus to check BGs 4x dialy. E11.9. Refills: 0. Next Dose: - Durable Medical Equipment (Gloves) 1 box per month Size: Large Use as needed for incontinence Dx: R15, R32 Duration: Lifetime. Refills: 11. Next Dose: - Durable Medical Equipment (hospital bed mattress replacement) please dispense 1 hospital bed mattress replacement - DX G89.4, length of use lifetime. Refills: 0. Next Dose: - Durable Medical Equipment (hospital bed with mattress) Please dispense one hospital bed with mattress, ICD 10 G89.4, length of use lifetime. Refills: 0. Next Dose: - Durable Medical Equipment (Pen [place], 31 G x 8 mm BD Ultra Fine III) e11.9, use for insulin injections up to 5 times daily, 90 day supply. Refills: 3. Next Dose: - Durable Medical Equipment (engineering agent grabber tool) please dispense one engineering agent grabber tool, ICD 10M54.6, length of use 1 month. Refills: 0. Next Dose: - Durable Medical Equipment (replacement hospital bed with mattress) please dispense 1 replacement hospital bed wth mattress, DX G89.4, length of use lifetime. Refills: 0. Next Dose: Medications to Continue with No Changes [facility], [facility] [place], [place] [id number], [phone] Insulin Glargine (Lantus Solostar Pen 100 units/mL subcutaneous solution) Take 45 units in the AM and 45 units daily at bedtime. E11.9.. Refills: 9. Next Dose: These medications were not printed or sent to your pharmacy Acetaminophen (acetaminophen 500 mg oral tablet) 2 tab(s) Oral 4 times a day as needed NEEDED FOR PAIN. Refills: 1. Next Dose: Albuterol (Ventolin HFA 108 mcg/inh inhalation aerosol with adapter) 1 puff(s) Inhalation 4 times aday as needed NEEDED FOR WHEEZING. Refills: 0. Next Dose: alpha-lipoic acid (Sreki-Rtdyzy-Nyav 300 mg oral capsule) 1 capsule Oral twice a day. NOT COVERED..Refills: 11. Next Dose: Ammonium Lactate 12% (ammonium lactate 12% topical cream) 1 lester Topically twice a day for 30 Days. Refills: 1. Next Dose: Atorvastatin (atorvastatin 80 mg oral tablet) 1 tab(s) Oral Daily. INSTR:REPLACES SIMVASTATIN. Refills: 1. Next Dose: BusPIRone (busPIRone 5 mg oral tablet) 1 tab(s) Oral 3 times a day for 30 Days. Refills: 4. Next Dose: BusPIRone (busPIRone 5 mg oral tablet) 1 tab(s) Oral twice a day for 30 Days. Refills: 4. Next Dose: Capsaicin Topical (capsaicin 0.075% topical cream) APPLY TO AFFECTED AREA TWICE A DAY. Refills: 4. Next Dose: Diazepam (diazepam 5 mg oral tablet) 1 tab(s) Oral twice a day for 30 Days. TAKE 1 TABLET BY MOUTH TWICE A DAY.. Refills: 1. Next Dose: Diazepam (diazepam 5 mg oral tablet) 1 tab(s) Oral twice a day for 30 Days. TAKE 1 TABLET BY MOUTH TWICE A DAY.. Refills: 4. Next Dose: Diclofenac Topical (diclofenac 1% topical gel) APPLY TOPICALLY 4 TIMES A DAY NOT TO EXCEED 16 GRAMS/DAY/SINGLE JOINT OF LOWER EXTREMITIES. Refills: 1. Next Dose: Docusate (docusate sodium 100 mg oral capsule) TAKE 1 CAPSULE BY MOUTH TWICE A DAY NEEDED FOR CONSTIPATION. Refills: 5. Next Dose: dulaglutide (Trulicity Pen 4.5 mg/0.5 mL subcutaneous solution) INJECT 4.5 MG SUBCUTANEOUSLY ONCE AWEEK. Refills: 10. Next Dose: Esomeprazole (esomeprazole 40 mg oral enteric coated capsule) 1 capsule Oral Daily. Refills: 1. Next Dose: Fentanyl (fentaNYL 25 mcg/hr transdermal film, extended release) APPLY 1 PATCH EVERY 72 HOURS. DO NOT FILL UNTIL 05/01/21. OK TO PARTIAL FILL UPON REQUEST.. Next Dose: Fluticasone (Flovent Diskus 50 mcg/inh inhalation powder) 1 puff(s) Inhalation twice a day. Refills: 0. Next Dose: Fluticasone Nasal (fluticasone 50 mcg/inh nasal spray) SPRAY 1 SPRAY INTO EACH NOSTRIL EVERY DAY. Refills: 5. Next Dose: HydrOXYzine (hydrOXYzine hydrochloride 25 mg oral tablet) 1 tab(s) Oral twice a day for 30 Days. asneeded for anxiety. Refills: 4. Next Dose: icosapent (Vascepa 1 g oral capsule) 2 capsule Oral twice a day. Refills: 5. Next Dose: Isopropyl Alcohol Topical (BD Single Use Swab 70% topical pad) TO CLEANS BEFORE INJECTIONS 5 X A DAY.. Refills: 11. Next Dose: Lactase (lactase 3000 u oral tablet) 3 tab(s) Oral 3 times a day with meals. X30 DAYS.. Refills: 5. Next Dose: Levothyroxine (levothyroxine 0.112 mg oral tablet) 1 tab(s) Oral Daily. Refills: 11. Next Dose: Lidocaine Topical (lidocaine 5% topical ointment) APPLY TO AFFECTED AREA 3 TIMES A DAY. Refills: 11. Next Dose: Lidocaine Topical (lidocaine 5% topical ointment) APPLY TO AFFECTED AREA 3 TIMES A DAY. Refills: 11. Next Dose: Losartan (losartan 50 mg oral tablet) TAKE 1 TABLET BY MOUTH EVERY DAY. Refills: 1. Next Dose: Mirtazapine (mirtazapine 15 mg oral tablet) 1 tab(s) Oral Daily at Bedtime for 30 Days. Refills: 4. Next Dose: Miscellaneous Rx (FREESTYLE INSULINX TEST STRIPS) USE TO CHECK BLOOD GLUCOSE LEVELS UP TO 4 TIMES DAILY. E11.9. Refills: 13. Next Dose: Miscellaneous Rx (FREESTYLE LANCETS MISC Miscellaneous) USE FOUR TIMES A DAY DIRECTED. Refills: 5. Next Dose: Miscellaneous Rx (FREESTYLE LITE TEST STRP Strip) USE DIRECTED FOR TYPE 2 DIABETES MELLITUS TO CHECK BGS 4X DAILY. E11.9. Refills: 8. Next Dose: Multivitamin (Daily David oral tablet) 1 tab(s) Oral Daily for 2 hour. SEPARATE FROM ORLISTAT.. Refills: 1. Next Dose: nalOXONE (Narcan 4 mg/0.1 mL nasal spray) 4 Milligram Nares, Both once. Refills: 2. Next Dose: Stickney-3 Polyunsaturated Fatty Acids (Stickney-3 Fish Oil 1000 mg oral capsule) 1 capsule Oral Daily. Refills: 1. Next Dose: Omeprazole (omeprazole 20 mg oral delayed release tablet) 1 tab(s) Oral twice a day. do not crush or chew. Refills: 2. Next Dose: Ondansetron (ondansetron 4 mg oral tablet) 1 tab(s) Oral every 8 hours as needed NEEDED FOR NAUSEA AND VOMITING FOR for 10 Days. Refills: 2. Next Dose: Oxycodone (oxyCODONE 10 mg oral tablet) TAKE 1/2 TAB EVERY 12 HOURS NEEDED FOR SEVERE NECK/LOW BACK PAIN. DO NOT FILL UNTIL 05/01/21. Next Dose: Pregabalin (Lyrica 25 mg oral capsule) 1 capsule By Mouth 1 time daily at bedtime. E11.9. Refills: 5. Next Dose: Quetiapine (QUEtiapine 25 mg oral tablet) 1 tab(s) Oral twice a day for 30 Days. Refills: 4. Next Dose: Simethicone (Gas Relief Extra Strength 125 mg oral tablet, chewable) CHEW 1 TABLET BY MOUTH 4 TIMESA DAY FOR 21 DAYS NEEDED FOR GAS. Refills: 4. Next Dose: Topiramate (topiramate 25 mg oral tablet) 3 tab(s) Oral Daily at Bedtime. Refills: 10. Next Dose: ValACYclovir (valACYclovir 500 mg oral tablet) 1 tab(s) Oral twice a day as needed NEEDED FOR OUTBREAKS. Refills: 0. Next Dose: Allergy Info:?? CeleBREX; Latex; Vioxx; Ultram; Neurontin; Naprosyn; Motrin; cortisone; trazodone; morphine Medications Given This Visit Future Orders ?No future orders Future Orders ?TSH? Order Date:07/24/23?- Complete within?Free T4? Order Date:07/24/23?- Complete within? Vital Signs Height 157 cm Weight 84 kg BMI 34.08 kg/m2 Blood Pressure 117 mm Hg/76 mm Hg Temperature Pulse Rate 82 bpm Respiratory Rate 02 Sat Mode of Delivery 96 %/Nasal cannula You can now view a summary of your hospital visit from the comfort of your home through a free online portal called [employer]. [employer] is a website that allows you to securely view your medical information including discharge summary, medications and follow-up visits. ??You can alsosend a secure electronic message to your doctor???s office to request appointments, renew medications or just ask a question. You can enroll at [email or web address] or register during your next office visit. Disclaimer:?? The information provided is of a general nature and is intended to be used in conjunction with the recommendations and advice of your health care practitioner. ??Every effort has been made to ensure that the information provided is accurate and complete at the time it is provided to you however, as your needs change, or, as new ??information becomes available, different or additional instructions may be required. If you have questions, please consult with your primary care provider or pharmacist, as appropriate. ??This information is not intended to serve as substitution for assessment and evaluation by a qualified health care provider. If you do not have a primary care provider, you may find a [facility] provider by calling [facility] at [phone]. [facility], in keeping with [facility] guidance, no longer requires face masks for staff, patientsor visitors in most situations. Similar to time spent indoors at other locations, there is the chance that you were exposed to respiratory viruses during your time with us (such as flu or COVID-19).? If you develop symptoms concerning for a viral respiratory infection, please seek testing (and treatment if indicated) from your medical provider or home test kit. For information about the plan of care including goals and instructions for your diagnosis, please see the patient education orders section of this document. Patient Education Materials?? The content of this educational material or handout may have been modified, supplemented, or adapted from its original content and format to support your individualized medical care. Patient Care team information Care Team Personnel Name: Rose Mary FISCHER, Sergo Cole Position: [facility] Physician - Primary Care Member Role: PCP Address: Address: [address] [place] [address] [place] [address]- Name: Lizbeth Collins [place] Position: [facility] RN Member Role: Primary Care Nurse Care Team Related Persons Name: LB HENLEY Address: home [address] [address] Name: LB HENLEY Address: [address] [place] [address] Name: MILENA CUBA Address: home [address] [place] [address] [address] [place] [address]
--- OUTSIDE RECORDS SUMMARY | 2024-01-23 14:43 | XMS_ITS | Continuity of Care Document ---
Author Organization [facility] Address [address] [place] [address]- Care Team Providers Care Archaeology Professor Name Role Phone Rose Mary FISCHER, Sergo Cole Primary Care Physician Encounter [facility] Date(s): 11/10/20 - 12/10/20 [facility] [address] [place], [place] [address] Allergies, Adverse Reactions, [...] 1Result Comment: [01/22/2017] [facility] [id number] 2Admin Note: vis given dated 10/24/12 3Admin Note: vis given dated 10/01/11 4Admin Note: vis 5Admin Note: vis 6Admin Note: vis given: 10/27/2006 7Admin Note: vis given : 10/10/2005 8Admin Note: vis given 2007- Medications acetaminophen 500 mg oral tablet 2 tablet, By Mouth, 4 times a day, PRN NEEDED FOR PAIN, # 100 tablet, 1 Refills, Acute, 219:52:00 EDT, [facility], 157.48, cm, 10/11/20 9:39:00 EDT, Height Start [...] Refills, Maintenance, 06/20/20 10:55:00 EDT, Cream, [facility]/pharmacy #4471, [...] Refills, Maintenance, 06/21/20 17:44:00 EDT, [facility], 157.48, cm, 05/31/20 9:41:00 EST, Height Start Date: 06/21/20 Status: Ordered atorvastatin 80 mg oral tablet 1 tablet = 80 mg, By Mouth, Daily, replaces Simvastatin, # 90 tablet, 4 Refills, Maintenance, 02/23/20 11:05:00 EST, Tablet, [facility]/pharmacy #4471, replaces simvastatin, 157.48, cm, 01/25/20 15:23:00 EDT, Height Start Date: 02/23/20 Stop Date: 05/18/21 Status: Ordered BD ultra fine III pen needles [id number] BD ultra fine III pen needles [id number], See Instructions, # 360 each, Refills 3, [...] 16:26:00 EDT, [facility] STORE 87742, 30, TAKE 1 TABLET BY MOUTH DAILY. [...] Refills, Maintenance, 09/02/20 12:50:00 EDT, Gel, [facility]/pharmacy #4471, 157.48, cm, 05/31/20 9:41:00 EST, [...] Refills, Maintenance, 01/07/20 14:00:00 EDT, Tablet, [facility]/pharmacy #4471, 157.48, cm, 12/29/19 15:55:00 EDT, [...] 5 Refills, Maintenance, 06/27/20 15:14:00 EDT, [facility]/pharmacy #4471, 1 sprays Nares, Both Daily,x30 [...] 3, Maintenance, use up to check blood [id number] per day. 90 DAY SUPPLY, E11.9, 02/29/20 [...] mL, 9 Refills, Maintenance, 09/20/20 15:10:00 EDT, [facility], [...] Refills, Maintenance, 08/26/20 20:44:00 EDT, Film, [facility]/pharmacy #[id number], Partial fill upon patient request if the prescription is for a schedule II opioid drug., 1 patch Topically Daily, 157.48, cm, 05/31/20 9:41:0... Start Date: 08/26/20 Status: Ordered losartan 50 mg oral tablet 1 tablet, By Mouth, Daily, # 30 tablet, 5 Refills, Maintenance, 12/02/20 5:43:00 EDT, [facility]/pharmacy #4471, 157.48, cm, 11/11/20 9:37:00 EDT, [...] request Start Date: 02/16/19 Status: Ordered Pen [place], 31 G x 8 mm BD Ultra [...] 0 Refills, Maintenance, 10/24/20 8:13:00 EDT, [facility], 157.48, cm, 10/11/20 9:39:00 EDT, Height Start Date: 10/24/20 Stop Date: 10/31/20 Status: Ordered Topamax 25 mg oral tablet 2 tablet = 50 mg, By Mouth, Daily at bedtime, # 60 tablet, 6 Refills, Maintenance, 04/21/20 13:35:00 EST, Tablet, [facility]/pharmacy #4471, 157.48, [...] 3 Refills, Maintenance, 12/08/21 15:26:00 EDT, Solution, [facility], E11.65, 157.48, cm, 03/04/20 14:14:00 EST, Height Start Date: 12/08/21 Stop Date: 12/03/22 Status: Ordered Trulicity Pen 1.5 mg/0.5 mL subcutaneous solution 0.5 mL = 1.5 mg, Subcutaneous Injection, Every Saturday, for 90 days, # 6.5 mL, 5 Refills, Hard Stop 12/13/20 15:26:00 EDT, 06/22/19 15:26:00 EDT, Solution, [facility]/pharmacy #4471, E11.65, 157.48, cm, 04/27/19 15:43:00 EST, Height Start Date: 06/22/19 Stop Date: 12/13/20 Status: Ordered valACYclovir 500 mg oral tablet See Instructions, TAKE 1 TABLET BY MOUTH TWICE A DAY FOR 3 DAYS NEEDED FOR OUTBREAK, # 6 tablet,Refills 2, Acute, Instructions Replace Required Details, Route to Pharmacy Electronically, [facility] STORE 19972, 157.48, cm, 05/31/20 9:41:00 EST, Height Start [...] Active *Briana Garces, Care Coor dinator, ICP [phone](Confirmed) Active Reflux(Confirmed) Active Hepatic steatosis(Confirmed) Active -EF [...]
--- NOTE | 2024-01-23 14:44 | A.OFFVIS_ITS ---
Intake Visit Reasons: chronic incontinence/nocturia Intake Note: New Patient presents for initial visit for incontinence and nocturia Urology Medications: none Blood Thinner: none PVR: 27ml's Farrowing Manager Required: No Accompanied by: Self / Same As Patient Allergies celecoxib [Celebrex] Allergy (Unknown, Verified 01/24/24 20:41) GI upset gabapentin [Neurontin] Allergy (Unknown, Verified 01/24/24 20:41) mental status change morphine Allergy (Unknown, Verified 01/24/24 20:41) diarrhea/ itch naproxen [Naprosyn] Allergy (Unknown, Verified 01/24/24 20:41) GI upset tramadol [Ultram] Allergy (Unknown, Verified 01/24/24 20:41) nausea and vomiting trazodone Allergy (Unknown, Verified 01/24/24 20:41) depression cortisone Allergy (Unknown, Uncoded 01/24/24 20:41) Unknown latex Allergy (Unknown, Uncoded 01/24/24 20:41) rash Motrin Allergy (Unknown, Uncoded 01/24/24 20:41) GI upset vioxx Allergy (Unknown, Uncoded 01/24/24 20:41) heart problems Medication List - Last Reconciled 01/24/24 by DAMEON Anaya-ROSANA atorvastatin 80 mg PO DAILY cyclosporine 0.05% (Restasis MultiDose) drshannon ophthalmic (eye) diclofenac sodium 1% topical dulaglutide (Trulicity) mg subcut fentanyl 25 mcg/hr 1 patch topical Q3D hydroxyzine HCl 25 mg PO BID insulin glargine (Lantus Solostar U-100 Insulin) units subcut insulin lispro subcut levothyroxine 100 mcg PO DAILY lidocaine 5% 1 patch topical DAILY losartan 50 mg PO DAILY oxycodone 10 mg PO BID PRN pregabalin 25 mg PO BEDTIME Prevail Bladder Control Pad (incontinence pad, liner, disp) As directed 7 times daily NS quetiapine mg PO topiramate 75 mg PO BEDTIME vibegron (Gemtesa) 75 mg PO DAILY 30 days HPI Comments Details: Teagan is a very pleasant 63-year-old female patient of Dr. Ritter. She has a PMH of acid reflux, PTSD, osteoarthritis, STORMY, obesity, multinodular goiter, mood disorder, migraines, insomnia, hypothyrodism, hypertenstion, hyperlipidemia, type 2 diabetes, constipation, chronic pain, carpal tunnel syndrome, and mixed urinary incontinence. She presnts to the office today as a new patient for ongoing mixed urinary incontinence. In discussion with the patient today she reports a longstanding history of mixed urinary incontinence. She reports having followed up with Dr. Jackson in the past many years ago and trialed many different medications that were unsuccessful. She continues to utilize 5-7 Sabrina pads per day. She has a history of 8 vaginal births. She reports having followed up with her PCP for prescription of Prevails at which time urology referral was made for further assessment evaluation. She reports she is open to taking medication and undergoing minimally invasive procedures otherwise she does not wish to have any major operations . In office urinalysis results reviewed with the patient today. PVR 27 mL. She reports incontinence with urge and with stress. She otherwise deniesnhematuria, dysuria, foul smelling urine, changes to urinary stream, flank pain, fever, and or chills. When asked she is unsure as to what medications she has previously tried and failed. We discussed obtaining retroperitoneal ultrasound for further assessment evaluation. We discussed pelvic floor exercises as well as importance of managing diabetes for improvement lower uri nary tract symptoms as well as overall health. Discussed possible near future urodynamics. She discusses the recent loss of her son in May of this year and her niece this summer. She otherwise denies any other issues or concerns at this time. [facility] Medical History Tubular adenoma of colon Stool incontinence Acid reflux PTSD (post-traumatic stress disorder) Osteoarthritis STORMY (obstructive sleep apnea) Obesity Numbness of left foot Multinodular goiter Mood disorder due to medical condition Migraine Loose stools Insomnia due to other mental disorder Hypothyroidism Hypertension Hyperlipidemia History of DILIP positive for HSV Hepatic artery stenosis Head injury, closed, with brief LOC Fall Epigastric pain Echocardiogram abnormal Diastasis recti Diabetes mellitus type 2, noninsulin dependent Constipation Concussion Chronic pain after traumatic injury Carpal tunnel syndrome Breast pain Back pain Ankle pain, left Abdominal pain Surgical History History of hysterectomy History of bilateral breast reduction surgery History of total thyroidectomy History of cholecystectomy Review of Systems Const Reports as per [facility] Eyes Reports no additional complaints ENT Reports no additional complaints Card Reports as per [facility] Resp Reports as per [facility] GI Reports as per [facility] Reports as per [facility] Musc Reports as per [facility] Neuro Reports as per [facility] Psych Reports as per [facility] Endo Reports as per [facility] Pawel/Lymph Reports no additional complaints Aller/Immun Reports no additional complaints Physical Exam Const General: cooperative, healthy appearing, comfortable, no acute distress, well developed, alert and awake Orientation/consciousness: patient oriented x3 Limitations: ambulation with cane HEENT Head: Yes normal to inspection, Yes normocephalic and Yes atraumatic Ears: hearing grossly normal bilaterally Eyes General: appearance normal, both eyes and all related structures Neck Neck: Yes normal visual inspection and Yes trachea midline Chest Chest palpation & inspection: normal inspection of the chest Resp Effort & Inspection: normal respiratory effort and able to speak in complete sentences Cardio Rate: regular rate GI Inspection: Yes normal to inspection General: Yes no CVA tenderness Back/Spine/Pelvis Back: no CVA tenderness Skin General skin exam: no rashes or lesions noted Neuro General: patient oriented x3 Extrem General: Yes normal to inspection Psych Appearance: grossly normal and well kempt Mental Status: mental status grossly normal Speech and movement: Normal speech and movement present and Clear speech present Affect: normal affect Attitude: cooperative Thought process: Normal thought process present Thought content: Normal thought content present Insight: Fair insight present (Psych) Judgement: Fair judgement present (Psych) Office Procedures Post Void Residual Post Residual Void Post Void Residual (PVR): 27 [id number]-[id number] Void Residual by ultrasound Results AMB Urinalysis, Automated UA Leukoctes 0 Tae/uL Last Edit by Aline Cortes on 01/23/24 15:28 UA Nitrite Last Edit by Aline Cortes on 01/23/24 15:28 UA Urobilinogen 0.2 mg/dL Last Edit by Aline Cortes on 01/23/24 15:28 UA Protein 0 mg/dL Last Edit by Aline Cortes on 01/23/24 15:28 UA pH 6.0 Last Edit by Aline Ramosveronica on 01/23/24 15:28 UA Blood 0 Candelario/uL Last Edit by Aline Rachelveronica on 01/23/24 15:28 UA Specific [place] 1.025 Last Edit by Aline Cortes on 01/23/24 15:28 UA Ketone Last Edit by Aline Cortes on 01/23/24 15:28 UA Bilirubin 0 mg/dL Last Edit by Aline Rachelveronica on 01/23/24 15:28 UA Glucose 0 mg/dL Last Edit by Aline Cortes on 01/23/24 15:28 Results Reviewed Results Reviewed: Laboratory Last Values Urine pH (Auto) 6.0 01/23/24 15:26 Specific [place] (Auto) 1.025 01/23/24 15:26 Urine Protein (Auto) 0 mg/dL 01/23/24 15:26 Glucose (UA)(Auto) 0 mg/dL 01/23/24 15:26 Urine Blood (Auto) 0 Candelario/uL 01/23/24 15:26 Urine Bilirubin (Auto) 0 mg/dL 01/23/24 15:26 Urine Urobilinogen (Auto) 0.2 mg/dL 01/23/24 15:26 Leukocyte Esterase (Auto) 0 Tae/uL 01/23/24 15:26 Assessment & Plan Assessment & Plan (1) Urinary incontinence, mixed: Code(s): N39.46 - Mixed incontinence Category: Medical Plan Office urinalysis results reviewed with the patient today; as noted above. PVR 27ml's We discussed at length potential causes of mixed urinary incontinence. Prescription provided to [facility] for incontinent pads. Start Gemtesa as discussed and prescribed. Will obtain retroperitoneal ultrasound for further assessment evaluation. Discussed, educated, and stressed the importance of managing diabetes for improvement in lower urinary tract symptoms as well as overall health and well- being. Pelvic floor exercises reviewed with the patient today. Follow-up in 3 months with imaging to be completed prior; or sooner with any issues, concerns, and or questions. Orders: Orders US retroperitoneal comp 01/23/24 N39.46 - Mixed incontinence AMB Urinalysis Automated 01/23/24 Z13.9 - Encounter for screening, unspecified AMB Post Void Residual by ultrasound 01/23/24 Z13.9 - Encounter for screening, unspecified Medications: New vibegron (Gemtesa) 75 mg PO DAILY 30 days 30 tabs 3RF N32.81 - Overactive bladder Patient Instructions: The patient had an opportunity to ask questions regarding the treatment plan. All questions were answered. Physical exam, labs, and imaging were discussed and reviewed in detail. As well as risks, benefits, and discussion of treatment choices. No major barriers to understanding were identified. The patient expressed understanding and agreement with the above treatment plan. The patient was made aware they should contact our office by phone for worsening of their current condition, the appearance of new symptoms, or with any questions or concerns. Compliance is encouraged with any medications and follow up testing that is ordered. It is a privilege to be allowed the opportunity to participate in? your urological care.? Again, if you have any questions or concerns If you have any questions or concerns please do not hesitate to contact me. The office is [phone]. This note is constructed using voice recognition software. While every effort has been made to ensure accuracy trade show specialist errors may have been included. Yours sincerely, DAMEON Anaya- Coding Level of Care Code New Pt Level 4 (86466) Diagnoses Urinary incontinence, mixed N39.46 CPT Codes Post Residual Void - PVR CPT Code: 55853-Mvkg Void Residual by ultrasound ([id number])
--- OUTSIDE RECORDS SUMMARY | 2024-01-23 14:44 | XMS_ITS | Continuity of Care Document ---
Author Organization [facility] Address [address] [place] [address]- Care Team Providers Care Production Specialist Name Role Phone Rose Mary FISCHER, Sergo Cole Primary Care Physician [place] [facility] [place] 08/24/21 - 09/23/21 [facility] [address] [place], [place] [address] Attending Physician: Broderick Washburn Admitting [...] influenza virus vaccine, inactivated 1 01/22/17 Gi lizzteh influenza virus vaccine, inactivated 03/02/15 Give n [...] Given 1Result Comment: [01/22/2017] [facility] [id number] 2Admin Note: vis given dated 10/24/12 3Admin Note: vis given dated 10/01/11 4Admin Note: vis 5Admin Note: vis 6Admin Note: vis given: 10/27/2006 7Admin Note: vis given : 10/10/2005 8Admin Note: vis given 2007- Medications acetaminophen 500 mg oral tablet 2 tablet, By Mouth, 4 times a day, PRN NEEDED FOR PAIN, # 100 tablet, 1 Refills, Acute, 219:52:00 EDT, [facility] 34[facility], 157.48, cm, 10/11/20 9:39:00 EDT, Height Start Date: 10/26/20 Status: Ordered Alcohol Pads See Instructions, # 200 each, Refills 11, Tot. Refills 11, Maintenance, To cleans before injections5 x a day., 03/03/21 9:18:00 EST, E11.65, Compound, 157.48, cm, 03/01/21 15:54:00 EST, Height Start Date: 03/03/21 Stop Date: 02/26/22 Status: Ordered Oohok-Syqjjw-Jayd 300 mg oral capsule 1 capsule, By Mouth, 2 times a day, NOT COVERED., # 60 capsule, 11 Refills, [facility], 157.48, cm, 01/27/21 9:30:00 EDT, Height Start Date: 01/30/21 Status: Ordered ammonium lactate 12% topical cream 1 application, Topically, 2 times a day, # 385 Gm, 5 Refills, Maintenance, 09/08/21 9:35:00 EDT, Cream, [facility]/pharmacy #6941, Partial fill upon patient request if the prescription is for a schedule II opioid drug., 1 application Topically 2 times a day,... Start Date: 09/08/21 Stop Date: 03/07/22 Status: Ordered aspirin 81 mg oral delayed release tablet 1 tablet, By Mouth, Daily, # 30 tablet, 11 Refills, Maintenance, 06/21/20 17:44:00 EDT, [facility], 157.48, cm, 05/31/20 9:41:00 EST, Height Start [...] Stop 09/29/21 13:12:00 EDT, 09/01/21 13:11:00 EDT, [facility]/pharmacy #4471, 30, APPLY TO AFFECTED AREA TWICE A DAY, 157.48, cm, 08/24/21 8:03:00 EDT, Height Start Date: 09/01/21 Stop Date: 09/29/21 Status: Ordered Daily David oral tablet 1 tablet, By Mouth, Daily, INSTR:TAKE IT 2 HOURS SEPARATE FROM ORLISTAT ([place]), # 30 tablet, 11 Refills, Maintenance, 08/19/20 16:26:00 EDT, [facility]ORE 46271, 30, TAKE 1 TABLET BY MOUTH DAILY. [...] EVERY DAY, # 16 mL, 5 Refills, [facility], 30, USE 1 SPRAY IN EACH NOSTRIL [...] 3, Maintenance, use up to check blood [id number] per day. 90 DAY SUPPLY, E11.9, 03/03/21 [...] mL, 6 Refills, Maintenance, 09/18/21 16:43:00 EDT, [facility], Partial fill upon patient request if... Start Date: 09/18/21 Status: Ordered Lantus Solostar Pen 100 units/mL subcutaneous solution See Instructions, Take 80 units via Subcutaneous Infusion Daily at bedtime. E11.9., # 30 mL, 9 Refills, Maintenance, 08/24/21 9:25:00 EDT, [facility], Partial fill upon patient request if the prescription is for a schedule II opioid d... Start Date: 08/24/21 Status: Ordered Lantus Solostar Pen 100 units/mL subcutaneous solution See Instructions, Decreased to 60U once a day as of 12/29/19, # 30 mL, 9 Refills, Maintenance, 09/20/20 15:10:00 EDT, [facility], NEEDS 30 ML FOR 30 [...] 0 Refills, Maintenance, 09/08/21 9:35:00 EDT, Film, [facility]/pharmacy #8701, Partial fill upon patient request if the prescription is for a schedule II opioid drug., 1patch Topically Daily, 157.48, cm, 08/24/21 8:03:00... Start Date: 09/08/21 Status: Ordered losartan 50 mg oral tablet 1 tablet, By Mouth, Daily, # 30 tablet, 2 Refills, [facility], 157.48, cm, 05/05/21 9:51:00 EST, Height Start [...] a day, # 60 capsule, 1 Refills, [facility] 29739, 157.48, cm, 06/02/21 14:20:00 EST, Height Start Date: 07/14/21 Status: Ordered oxyCODONE 10 mg oral tablet TAKE 1/2 TAB EVERY 12 HOURS NEEDED FOR SEVERE NECK/LOW BACK PAIN. DO NOT FILL UNTIL 05/01/21 Start Date: 06/02/21 Status: Ordered Pen [place], 31 G x [...] # 12 tablet, 7 Refills, [facility], 157.48, cm, 05/23/21 13:08:00 EST, Height Start Date: 06/02/21 Status: Ordered tiZANidine 4 mg oral capsule 1 capsule, By Mouth, 3 times a day, # 90 capsule, 3 Refills, [facility], 157.48, cm, 05/23/21 13:08:00 EST, Height Start [...] 2 mL, 5 Refills, 08/24/21 9:20:00 EDT, [facility], 157.48, cm, 08/24/21 [...] Active *Briana Garces, Care Coor dinator, ICP [phone](Confirmed) Active Reflux(Confirmed) Active Hepatic steatosis(Confirmed) Active 11715 -EF 60-65%. No wall motion abnormalities, Does [...]
--- OUTSIDE RECORDS SUMMARY | 2024-01-23 14:44 | XMS_ITS | Continuity of Care Document ---
Author Organization [facility] Address [address] [place] [address]- Care Team Providers Care Commercial Green Building Architect Name Role Phone Rose Mary FISCHER, Sergo Cole Primary Care Physician [phone] Encounter [facility] Date(s): 11/08/20 - 12/08/20 [facility] [address] [place], [place] [address] Allergies, Adverse Reactions, Alerts [...] 8 01/21/08 Given 1Result Comment: [01/22/2017] [facility] [id number] 2Admin Note: vis given dated 10/24/12 3Admin Note: vis given dated 10/01/11 4Admin Note: vis 5Admin Note: vis 6Admin Note: vis given: 10/27/2006 7Admin Note: vis given : 10/10/2005 8Admin Note: vis given 2007- Medications acetaminophen 500 mg oral tablet 2 tablet, By Mouth, 4 times a day, PRN NEEDED FOR PAIN, # 100 tablet, 1 Refills, Acute, 219:52:00 EDT, [facility], 157.48, cm, 10/11/20 9:39:00 EDT, Height Start Date: 10/26/20 Status: Ordered Acyclovir Maintenance, 11/13/18 15:06:54 EDT Start Date: 11/13/18 Status: Ordered Admelog SoloStar 100 units/mL injectable solution 10 - 25 units, Subcutaneous Infusion, 3 times a day with meals, Inject via sliding scale, Max Dailydose 75u, 90 day supply, E11.9, # 90 mL, 5 Refills, Maintenance, 09/02/19 13:54:00 EDT, [facility], E11.9, 157.48, cm, 04/27/19 [...] Refills, Maintenance, 06/20/20 10:55:00 EDT, Cream, [facility]/pharmacy #4471, Partial [...] Refills, Maintenance, 06/21/20 17:44:00 EDT, [facility], 157.48, cm, 05/31/20 9:41:00 EST, Height Start Date: 06/21/20 Status: Ordered atorvastatin 80 mg oral tablet 1 tablet = 80 mg, By Mouth, Daily, replaces Simvastatin, # 90 tablet, 4 Refills, Maintenance, 02/23/20 11:05:00 EST, Tablet, [facility]/pharmacy #4471, replaces simvastatin, 157.48, cm, 01/25/20 15:23:00 EDT, Height Start Date: 02/23/20 Stop Date: 05/18/21 Status: Ordered BD ultra fine III pen needles [id number] BD ultra fine III pen needles [id number], See Instructions, # 360 each, Refills 3, [...] Refills, Maintenance, 08/19/20 16:26:00 EDT, [facility] 73666, 30, TAKE 1 TABLET BY MOUTH DAILY. [...] Refills, Maintenance, 09/02/20 12:50:00 EDT, Gel, [facility]/pharmacy #4471, 157.48, cm, 05/31/20 9:41:00 EST, Height [...] Maintenance, 01/07/20 14:00:00 EDT, Tablet, [facility]/pharmacy #4471, 157.48, cm, 12/29/19 15:55:00 EDT, Height [...] 5 Refills, Maintenance, 06/27/20 15:14:00 EDT, [facility]/pharmacy #4471, 1 sprays Nares, Both Daily,x30 days,Instr:in [...] 3, Maintenance, use up to check blood [id number] per day. 90 DAY SUPPLY, E11.9, 02/29/20 [...] mL, 9 Refills, Maintenance, 09/20/20 15:10:00 EDT, [facility], NEEDS 30 [...] Refills, Maintenance, 08/26/20 20:44:00 EDT, Film, [facility]/pharmacy #4471, Partial fill upon patient request if the prescription is for a schedule II opioid drug., 1 patch Topically Daily, 157.48, cm, 05/31/20 9:41:0... Start Date: 08/26/20 Status: Ordered losartan 50 mg oral tablet 1 tablet, By Mouth, Daily, # 30 tablet, 5 Refills, Maintenance, 12/02/20 5:43:00 EDT, [facility]/pharmacy #4471, 157.48, cm, 11/11/20 9:37:00 [...] request Start Date: 02/16/19 Status: Ordered Pen [place], 31 G x 8 mm BD Ultra [...] 0 Refills, Maintenance, 10/24/20 8:13:00 EDT, [facility], 157.48, cm, 10/11/20 9:39:00 EDT, Height Start Date: 10/24/20 Stop Date: 10/31/20 Status: Ordered Topamax 25 mg oral tablet 2 tablet = 50 mg, By Mouth, Daily at bedtime, # 60 tablet, 6 Refills, Maintenance, 04/21/20 13:35:00 EST, Tablet, [facility]/pharmacy #4471, 157.48, cm, 03/04/20 14:14:00 EST, Height Start Date: 04/21/20 Stop Date: 11/17/20 Status: Ordered Trulicity Pen 1.5 mg/0.5 mL subcutaneous solution 0.5 mL = 1.5 mg, Subcutaneous Injection, Every Saturday, for 90 days, # 7.5 mL, 3 Refills, Hard Stop 12/08/21 15:26:00 EDT, 12/13/20 15:26:00 EDT, Solution, [facility], E11.65, 157.48, cm, 04/27/19 15:43:00 EST, Height Start Date: 12/13/20 Stop Date: 12/08/21 Status: Ordered Trulicity Pen 1.5 mg/0.5 mL subcutaneous solution 0.5 mL = 1.5 mg, Subcutaneous Injection, Every Saturday, E11.9, # 7.5 mL, 3 Refills, Maintenance, 12/08/21 15:26:00 EDT, Solution, [facility], E11.65, 157.48, cm, 03/04/20 14:14:00 EST, Height Start Date: 12/08/21 Stop Date: 12/03/22 Status: Ordered Trulicity Pen 1.5 mg/0.5 mL subcutaneous solution 0.5 mL = 1.5 mg, Subcutaneous Injection, Every Saturday, for 90 days, # 6.5 mL, 5 Refills, Hard Stop 12/13/20 15:26:00 EDT, 06/22/19 15:26:00 EDT, Solution, [facility]/pharmacy #4471, E11.65, 157.48, cm, 04/27/19 15:43:00 EST, Height Start Date: 06/22/19 Stop Date: 12/13/20 Status: Ordered valACYclovir 500 mg oral tablet See Instructions, TAKE 1 TABLET BY MOUTH TWICE A DAY FOR 3 DAYS NEEDED FOR OUTBREAK, # 6 tablet,Refills 2, Acute, Instructions Replace Required Details, Route to Pharmacy Electronically, [facility] 84826, 157.48, cm, 05/31/20 9:41:00 EST, Height Start [...] Active *Briana Garces, Care Coor dinator, ICP [phone](Confirmed) Active Reflux(Confirmed) Active Hepatic steatosis(Confirmed) Active -EF [...]
--- OUTSIDE RECORDS SUMMARY | 2024-01-23 14:44 | XMS_ITS | Continuity of Care Document ---
Author Organization [facility] Address [address] [place] [address]- Care Team Providers Care Etcher Hand Name Role Phone Sergo Bazzi MD Primary Care Physician [phone] [place] [facility] [place]23 [facility] [address] [place] [address] Attending Physician: AdmBroderick enriquez Admitting Physician: AdmtrBroderick [...] 01/21/08 Given 1Result Comment: [01/22/2017] [facility] [id number] 2Admin Note: vis given dated 10/24/12 3Admin [...] 100 tablet, 1 Refills, Acute, 219:52:00 EDT, [facility] 94[facility], 157.48, cm, 10/11/20 9:39:00 EDT, Height Start Date: 10/26/20 Status: Ordered Alcohol Pads See Instructions, # 200 each, Refills 11, Tot. Refills 11, Maintenance, To cleans before injections5 x a day., 03/03/21 9:18:00 EST, E11.65, Compound, 157.48, cm, 03/01/21 15:54:00 EST, Height Start Date: 03/03/21 Stop Date: 02/26/22 Status: Ordered Ylfyd-Zrzqqi-Sibv 300 mg oral capsule 1 capsule, By Mouth, 2 times a day, NOT COVERED., # 60 capsule, 11 Refills, [facility], 157.48, cm, 01/27/21 9:30:00 EDT, Height Start [...] 7:27:00 EST, Route to Pharmacy Electronically, [facility]/pharmacy #4471, Partial fill upon patient request if the prescription is for a schedule II opioi... Start Date: 04/30/23 Stop Date: 09/27/23 Status: Ordered capsaicin 0.075% topical cream See Instructions, APPLY TO AFFECTED AREA TWICE A DAY, # 57 Gm, 4 Refills, Maintenance, 04/11/23 10:18:00 EST, [facility] ST[facility] 10242, 30, APPLY TO AFFECTED AREA TWICE A [...] each, 0 Refills, Maintenance, 09/20/22 9:36:00 EDT, [facility], 30, INHALE 1 PUFF BY MOUTH TWICE A DAY, 157.5, cm, 09/05/22 16:22:00 EDT, Height Start Date: 09/20/22 Status: Ordered fluticasone 50 mcg/inh nasal spray See Instructions, SPRAY 1 SPRAY INTO EACH NOSTRIL EVERY DAY, # 16 mL, 5 Refills, Maintenance, 07/05/22 16:20:00 EDT, [facility], 30, SPRAY 1 SPRAY INTO EACH NOSTRIL [...] tablet, 4 Refills, Maintenance, 03/11/23 15:50:00 EST, [facility] 10[facility], 157.5, cm, 02/19/23 9:20:00 EST, Height Start [...] mL, 6 Refills, Maintenance, 11/26/22 14:55:00 EDT, [facility], Partial fill upon patie... Start Date: 11/26/22 Status: Ordered lactase 3000 u oral tablet 3 tablet, By Mouth, 3 times a day with meals, X30 DAYS., # 120 tablet, 5 Refills, Maintenance, 04/25/23 15:25:00 EST, [facility] STORE 32380, 157, cm, 04/17/23 7:57:00 EST, Height, 88.3, kg, 04/16/23 11:33:00 EST, Dry Weight Start Date: 04/25/23 Status: Ordered Lantus Solostar Pen 100 units/mL subcutaneous solution See Instructions, Take 45 units in the AM and 45 units daily at bedtime. E11.9., # 30 mL, 9 Refills, Maintenance, 11/26/22 14:55:00 EDT, [facility], Partial fill upon patient requestif the prescription is for a schedule II opioid lucas... Start Date: 11/26/22 Status: Ordered levothyroxine 0.137 mg oral tablet 1 tablet = 137 mcg, By Mouth, Daily, # 30 tablet, 2 Refills, Maintenance, 04/17/23 7:46:00 EST, Tablet, [facility]/pharmacy #0891, Partial fill upon patient request if the [...] Refills, Maintenance, 03/11/23 15:50:00 EST, [facility], 157.5, cm, 02/19/23 9:20:00 EST, Height Start Date: 03/11/23 Status: Ordered Lyrica 25 mg oral capsule See Instructions, 1 capsule By Mouth 1 time daily at bedtime. E11.9, # 30 each, 5 Refills, Maintenance, 01/21/23 15:40:00 EDT, Capsule, [facility]/pharmacy #4471, Partial fill [...] Height Start Date: 02/22/23 Status: Ordered [place]-3 Fish Oil 1000 mg oral capsule 1 [...] 06/02/23 13:49:00 EST, 05/03/23 13:49:00 EST, Tablet, [facility]/pharmacy #4471, Partial fill upon patient request if the prescription is for a schedu... Start Date: 05/03/23 Stop Date: 06/02/23 Status: Ordered oxyCODONE 10 mg oral tablet TAKE 1/2 TAB EVERY 12 HOURS NEEDED FOR SEVERE NECK/LOW BACK PAIN. DO NOT FILL UNTIL 05/01/21 Start Date: 06/02/21 Status: Ordered Pen [place], 31 G x 8 mm BD Ultra [...] 13:08:00 EDT, Route to Pharmacy Electronically, [facility]/pharmacy #6351, Partial fill upon patient request if the prescription is for a schedule II opi... Start Date: 12/06/22 Stop Date: 05/05/23 Status: Ordered tree farmer grabber tool tree farmer grabber tool, See Instructions, # 1 each, Refills 0, Tot. Refills 0, Maintenance, please dispense one tree farmer grabber tool, ICD 10 M54.6, length of use 1 month, 04/12/22 10:13:00 EST, Supply Start Date: 04/12/22 Status: Ordered replacement hospital bed with mattress replacement hospital bed with mattress, See Instructions, # 1 each, Refills 0, Tot. Refills 0, Maintenance, please dispense 1 replacement hospital bed [facility] mattress, DX G89.4, length of use lifetime, 06/20/22 14:20:00 EDT, Supply Start Date: 06/20/22 Status: Ordered topiramate 25 mg oral tablet 3 tablet, By Mouth, Daily at bedtime, # 90 tablet, 10 Refills, Maintenance, 01/17/23 8:54:00 EDT, [facility], 157.5, cm, 12/28/22 15:12:00 EDT, Height Start Date: 01/17/23 Status: Ordered Trulicity Pen 4.5 mg/0.5 mL subcutaneous solution See Instructions, INJECT 4.5 MG SUBCUTANEOUSLY ONCE A WEEK, # 2 mL, 5 Refills, Maintenance, 11/21/22 8:33:00 EDT, [facility], 157.5, cm, 11/16/22 13:50:00 EDT, Height Start Date: 11/21/22 Status: Ordered valACYclovir 500 mg oral tablet 1, tablet, By Mouth, 2 times a day, PRN, # 6 tablet, Refills 1, Maintenance, NEEDED FOR OUTBREAKS, 05/03/23 8:37:00 EST, Route to Pharmacy Electronically, [facility], 157, cm, 04/17/23 7:57:00 EST, Height, 88.3, [...] each, 0 Refills, Maintenance, 09/17/22 15:25:00 EDT, [facility] 07419, 157.5, cm, 09/05/22 16:22:00 EDT, Height Start [...] 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 No wall motion abnormalities, Does [...] Care Member Role: PCP Address: Address: [address] [place] [id number]- Name: Lizbeth Clolins [place] Position: [facility] RN Member Role: Primary Care Nurse Care Team Related Persons Name: LB HENLEY Address: home [address] [place] [address] Name: LB HENLEY Address: home [address] [address] Name: MILENA CUBA Address: home [address] [place] [address]
--- OUTSIDE RECORDS SUMMARY | 2024-01-23 14:44 | XMS_ITS | Continuity of Care Document ---
Author Organization [facility] Address [address] [place] [address]- Care Team Providers Care Calibration Specialist Name Role Phone Rose Mary FISCHER, Sergo Cole Primary Care Physician Encounter [facility] Date(s): 12/14/19 - 01/13/20 [facility] [address] [place] [address]- [facility] Allergies, Adverse Reactions, Alerts [...] Given 1Result Comment: [01/22/2017] [facility] [id number] 2Admin Note: vis given dated 10/24/12 3Admin [...] mL, 5 Refills, Maintenance, 09/02/19 13:54:00 EDT, [facility], E11.9, 157.48, cm, 04/27/19 [...] 04/01/21 14:01:00 EST, 01/07/20 14:01:00 EDT, Tablet, [facility]/pharmacy #[id number], replaces simvastatin,157.48, cm, 12/29/19 15:55:00 EDT, Height Start Date: 01/07/20 Stop Date: 04/01/21 Status: Ordered atorvastatin 80 mg oral tablet 1 tablet = 80 mg, By Mouth, Daily, replaces Simvastatin, # 90 tablet, 4 Refills, Maintenance, 04/01/21 14:01:00 EST, Tablet, [facility]/pharmacy #[id number], replaces simvastatin, 157.48, cm, 12/29/19 15:55:00 EDT, Height Start Date: 04/01/21 Stop Date: 06/25/22 Status: Ordered BD ultra fine III pen needles [id number] BD ultra fine III pen needles [id number], See Instructions, # 360 each, Refills 3, [...] 60 Gm, 4 Refills, Acute, [facility], 30, APPLY TO AFFECTED AREA TWICE A [...] 6 Refills, Maintenance, 12/24/19 9:18:00 EDT, Gel, [facility]/pharmacy #[id number], 157.48, cm, 04/27/19 15:43:00 EST, [...] 5 Refills, Maintenance, 01/07/20 14:00:00 EDT, Tablet, [facility]/pharmacy #[id number], 157.48, cm, 12/29/19 15:55:00 [...] Gm, 1 Refills, Maintenance, 12/10/19 12:46:00 EDT, [facility]/pharmacy #[id number], 1 sprays Nares, Both [...] 3, Maintenance, use up to check blood [id number] per day. 90 DAY SUPPLY, E11.9, 08/21/19 [...] mL, 11 Refills, Maintenance, 09/02/19 13:55:00 EDT, [facility], NEEDS 30 ML FOR [...] 11 Refills, Maintenance, 05/15/19 15:00:00 EST, Ointment, [facility]/pharmacy #[id number], 1 application Topically 3 times a day,x30 days, 157.48, cm, 04/27/19 15:43:00 EST, Height Start Date: 05/15/19 Stop Date: 05/09/20 Status: Ordered losartan 50 mg oral tablet 50 mg, 1, tablet, By Mouth, Daily, can substitute 25mg tabs x2 if needed, # 30 tablet, Refills 5, Tot. Refills 5, Maintenance, 01/11/20 11:21:00 EDT, Route to Pharmacy Electronically, [facility]/pharmacy #[id number], 157.48, cm, 12/29/19 15:55:00 [...] 4 Refills, Maintenance, 08/14/19 8:49:00 EDT, Tablet, [facility]/pharmacy #[id number], 1 tablet By Mouth Daily,x90 days,Instr:Take it 2 hours separate from Orlistat ([place]), 157.... Start Date: 08/14/19 Stop Date: 11/06/20 Status: Ordered oxyCODONE 5 mg oral tablet 5 mg, 1, tablet, By Mouth, Every 12 hours, PRN, Refills 0, Tot. Refills 0, Maintenance, as needed for pain, 02/16/19 14:51:00 EST, Partial fill upon patient request Start Date: 02/16/19 Status: Ordered Pen [place], 31 G x 8 mm BD Ultra [...] 3 Refills, Maintenance, 12/13/20 15:26:00 EDT, Solution, [facility], E11.65, 157.48, cm, 04/27/19 15:43:00 EST, Height Start Date: 12/13/20 Stop Date: 12/08/21 Status: Ordered Trulicity Pen 1.5 mg/0.5 mL subcutaneous solution 0.5 mL = 1.5 mg, Subcutaneous Injection, Every Saturday, for 90 days, # 6.5 mL, 5 Refills, Hard Stop 12/13/20 15:26:00 EDT, 06/22/19 15:26:00 EDT, Solution, [facility]/pharmacy #[id number], E11.65, 157.48, cm, 04/27/19 15:43:00 EST, Height Start Date: 06/22/19 Stop Date: 12/13/20 Status: Ordered valACYclovir 500 mg oral tablet See Instructions, TAKE 1 TABLET BY MOUTH TWICE A DAY FOR 3 DAYS NEEDED FOR OUTBREAK, # 6 tablet,Refills 2, Acute, Instructions Replace Required Details, Route to Pharmacy Electronically, [facility], 157.48, cm, 04/27/19 15:43:00 EST, Height Start [...] Active *Briana Garces, Care Coor dinator, ICP [phone](Confirmed) Active Reflux(Confirmed) Active 28104 -EF 60-65%. No wall motion abnormalities, Does [...]
--- OUTSIDE RECORDS SUMMARY | 2024-01-23 14:44 | XMS_ITS | Continuity of Care Document ---
Author Organization [facility] Address [address] [place] [address]- Care Team Providers Care Digital Advisor Name Role Phone Rose Mary FISCHER, Sergo Cole Primary Care Physician Encounter [facility] Date(s): 09/02/19 - 10/02/19 [facility] [address] [place] [address]- [facility] Attending Physician: Admtr, [id number] Admitting Physician: Admtr, [...] Comment: [01/22/2017] [facility] [id number] 2Admin Note: vis given dated 10/24/12 3Admin [...] mL, 5 Refills, Maintenance, 09/02/19 13:54:00 EDT, [facility], E11.9, 157.48, [...] tablet, 5 Refills, Maintenance, 05/05/19 11:32:00 EST, [facility], 157.48, cm, 04/27/19 15:43:00 EST, Height Start Date: 05/05/19 Status: Ordered atorvastatin 80 mg oral tablet 1 tablet = 80 mg, By Mouth, Daily, replaces Simvastatin, # 90 tablet, 1 Refills, Maintenance, 06/22/19 15:26:00 EDT, Tablet, [facility]/pharmacy #[id number], replaces simvastatin, 157.48, cm, 04/27/19 15:43:00 EST, Height Start Date: 06/22/19 Stop Date: 12/19/19 Status: Ordered BD ultra fine III pen needles [id number] BD ultra fine III pen needles [id number], See Instructions, # 360 each, Refills 3, Tot. Refills 3, Maintenance, Use pen needles to inject insulin 4x a day, E11.9, 90 Day supply, 08/21/19 8:40:00 EDT, Supply, 157.48, cm, 04/27/19 15:43:00 EST, Height Start Date: 08/21/19 Status: Ordered capsaicin 0.075% topical cream 1 application, Topically, 2 times a day, for 30 days, # 60 Gm, 4 Refills, Acute 10/26/19 10:54:00 EDT, 05/29/19 10:54:00 EST, Cream, [facility]/pharmacy #[id number], 1 application Topically 2 times [...] constipation, # 60 tablet, 2 Refills, Maintenance, 07/20/19 8:48:00 EDT, Tablet, [facility]/pharmacy #[id number], 157.48, cm, 04/27/19 15:43:00 EST, Height Start Date: 07/20/19 Stop Date: 10/18/19 Status: Ordered fentanyl 12 mcg/hr transdermal film, extended release 1 patch, Topically, Every 72 hours, 0 Refills, Maintenance, 02/16/19 14:50:52 EST, Patch, Partial fill upon patient request Start Date: 02/16/19 Status: Ordered fluticasone 50 mcg/inh nasal spray See Instructions, USE 1 SPRAY IN EACH NOSTRIL TWICE A DAY, # 16 mL, 1 Refills, Maintenance, [facility], 30, USE 1 SPRAY IN EACH NOSTRIL [...] 3, Maintenance, use up to check blood [id number] per day. 90 DAY SUPPLY, E11.9, 08/21/19 8:39:00 EDT, E11.9, Compound, 157.48, cm, 04/27/19 15:43:00 EST, Height Start Date: 08/21/19 Stop Date: 08/15/20 Status: Ordered Freestyle Lite Monitor See Instructions, [...] mL, 11 Refills, Maintenance, 09/02/19 13:55:00 EDT, [facility] [...] 06/22/19 15:26:00 EDT, [id number] 157.48, cm, 04/27/19 15:43:00 EST, Height [...] request Start Date: 02/16/19 Status: Ordered Pen [place], 31 G x 8 mm BD Ultra Fine III See Instructions, # 450 each, Refills 5, Tot. Refills 5, Maintenance, 5 X A DAY INJECTIONS, 90 DY SUPPLY, 09/02/19 13:55:00 EDT, EE11.9, Compound, 157.48, cm, 04/27/19 15:43:00 EST, Height Start Date: 09/02/19 Status: Ordered posie pads posie pads, See [...] 3 Refills, Maintenance, 12/13/20 15:26:00 EDT, Solution, [facility] [...] Active *Briana Garces, Care Coor dinator, ICP [phone](Confirmed) Active Reflux(Confirmed) Active 07072 -EF 60-65%. No wall motion abnormalities, Does [...]
--- OUTSIDE RECORDS SUMMARY | 2024-01-23 14:44 | XMS_ITS | Continuity of Care Document ---
Author Organization [facility] Address [address] [place] [address]- Care Team Providers Care Stopperer Assembler Name Role Phone Sergo Bazzi MD Primary Care Physician Encounter [facility] Date(s): 08/20/23 - 09/19/23 [facility] [address] [place], [place] [address] Allergies, Adverse Reactions, Alerts [...] (oldterm) 8 01/21/08 Given 1Result Comment: [01/22/2017] [facility] [id number] 2Admin Note: vis given dated 10/24/12 3Admin [...] 1 Refills, Acute, 219:52:00 EDT, [facility], 157.48, cm, 10/11/20 9:39:00 EDT, Height Start [...] Date: 03/03/21 Stop Date: 02/26/22 Status: Ordered Jxies-Gsmhza-Plfr 300 mg oral capsule 1 capsule, By Mouth, 2 times a day, NOT COVERED., # 60 capsule, 11 Refills, [facility], 157.48, cm, 01/27/21 9:30:00 EDT, Height Start Date: 01/30/21 Status: Ordered ammonium lactate 12% topical cream 1 application, Topically, 2 times a day, # 385 Gm, 1 Refills, Maintenance, 12/22/22 14:16:00 EDT, Cream, [facility]/pharmacy #[id number], Partial fill upon patient request if the prescription is for a schedule IIopioid drug., 1 application Topically 2 times a day... Start Date: 12/22/22 Stop Date: 02/20/23 Status: Ordered Artificial Tears preserved solution 1 drops, Eyes, Both, 2 times a day, PRN for dry eyes, # 15 mL, 0 Refills, Maintenance, 09/10/23 8:57:00 EDT, Solution, [facility]/pharmacy #[id number], Partial fill upon patient request if the prescription is fora schedule II opioid drug., 1 drops Eyes, Both 2 ti... Start Date: 09/10/23 Status: Ordered atorvastatin 80 mg oral tablet 1 tablet, By Mouth, Daily, INSTR:REPLACES SIMVASTATIN, # 90 tablet, 1 Refills, Maintenance, 05/22/23 12:07:00 EST, [facility] STORE [address]176, 157, cm, 05/06/23 14:23:00 EST, Height, 88.3, kg, 04/16/23 11:33:00EST, Dry Weight Start Date: 05/22/23 Status: Ordered BD Single Use Swab 70% topical pad See Instructions, TO CLEANS BEFORE INJECTIONS 5 X A DAY., # 150 Unknown, 11 Refills, Maintenance, 08/16/22 10:15:00 EDT, [facility], 30, TO CLEANS BEFORE INJECTIONS 5 X A DAY., 157.5, cm, 08/01/22 9:27:00 EDT, Height Start Date: 08/16/22 Status: Ordered busPIRone 5 mg oral tablet 5 mg, 1, tablet, By Mouth, 3 times a day, # 90 tablet, Refills 4, Tot. Refills 4, Maintenance, 09/10/23 10:46:00 EDT, Route to Pharmacy Electronically, [facility]/pharmacy #[id number], Partial fill upon patient request if the prescription is for a schedule II opio... Start Date: 09/10/23 Stop Date: 02/07/24 Status: Ordered capsaicin 0.075% topical cream See Instructions, APPLY TO AFFECTED AREA TWICE A DAY, # 57 Gm, 4 Refills, Maintenance, 04/11/23 10:18:00 EST, [facility] ST[facility], 30, APPLY TO AFFECTED AREA TWICE A [...] tablet, 1 Refills, Maintenance, 07/02/23 18:31:00 EDT, [facility]ORE [facility], 90, TAKE 1 TABLET BY MOUTH DAILY [...] 09/10/23 10:46:00 EDT, Route to Pharmacy Electronically, [facility]/pharmacy #[id number], Partial fill... Start Date: 09/10/23 Stop Date: 02/07/24 Status: Ordered diclofenac 1% topical gel See Instructions, APPLY TOPICALLY 4 TIMES A DAY NOT TO EXCEED 16 GRAMS/DAY/SINGLE JOINT OF LOWER EXTREMITIES, # 100 Gm, 4 Refills, Maintenance, 09/10/23 8:56:00 EDT, [facility]/pharmacy #[id number], 30, APPLY TOPICALLY 4 TIMES [...] capsule, 5 Refills, Maintenance, 07/03/22 18:20:00 EDT, [facility]/pharmacy #[id number], Duplicate Rx. Original sent 07/03/22 with routing error. Re- sending to pharmacy, 157.5, cm... Start Date: 07/03/22 Status: Ordered esomeprazole 40 mg oral enteric coated capsule 1 capsule = 40 mg, By Mouth, Daily, # 90 capsule, 1 Refills, Maintenance, 09/02/23 16:20:00 EDT, [facility]/pharmacy #[id number], Partial [...] Refills, Maintenance, 09/20/22 9:36:00 EDT, [facility], 30, INHALE 1 PUFF BY MOUTH TWICE A DAY, 157.5, cm, 09/05/22 16:22:00 EDT, Height Start Date: 09/20/22 Status: Ordered fluticasone 50 mcg/inh nasal spray See Instructions, SPRAY 1 SPRAY INTO EACH NOSTRIL EVERY DAY, # 16 mL, 5 Refills, Maintenance, 07/05/22 16:20:00 EDT, [facility] STORE [address], 30, SPRAY 1 SPRAY INTO EACH NOSTRIL [...] tablet, 4 Refills, Maintenance, 03/11/23 15:50:00 EST, [facility] STORE [address]40, 157.5, cm, 02/19/23 9:20:00 EST, Height Start [...] mL, 6 Refills, Maintenance, 07/24/23 13:20:00 EDT, [facility], Partial fill upon patient request if the prescription is for a schedule II opioid drug., 157, cm, 07/24/23 12:52:00... Start Date: 07/24/23 Status: Ordered hydrOXYzine hydrochloride 25 mg oral tablet 1 tablet = 25 mg, By Mouth, 2 times a day, as needed for anxiety, # 60 tablet, 4 Refills, Soft Stop, 09/10/23 10:47:00 EDT, Tablet, [facility]/pharmacy #[id number], Partial fill upon patient request if the prescription is for a schedule II opioid drug., 157, cm, 0... Start Date: 09/10/23 Stop Date: 02/07/24 Status: Ordered lactase 3000 u oral tablet 3 tablet, By Mouth, 3 times a day with meals, X30 DAYS., # 120 tablet, 5 Refills, Maintenance, 04/25/23 15:25:00 EST, [facility] ST[facility], 157, cm, 04/17/23 7:57:00 EST, Height, 88.3, kg, 04/16/23 11:33:00 EST, Dry Weight Start Date: 04/25/23 Status: Ordered Lantus Solostar Pen 100 units/mL subcutaneous solution See Instructions, Take 45 units in the AM and 45 units daily at bedtime. E11.9., # 30 mL, 9 Refills, Maintenance, 07/24/23 13:18:00 EDT, [facility], Partial fill upon patient requestif the prescription is for a schedule II opioid lucas... Start Date: 07/24/23 Status: Ordered levothyroxine 0.1 mg oral tablet 1 tablet = 100 mcg, By Mouth, Daily, # 30 tablet, 11 Refills, Maintenance, 07/25/23 8:52:00 EDT, [facility]/pharmacy #[id number], stop the 112mcg dose, 157, cm, 07/24/23 12:52:00 EDT, Height, 84, kg, 07/24/23 12:52:00 EDT, Dry Weight Start Date: 07/25/23 Stop Date: 07/19/24 Status: Ordered lidocaine 5% topical ointment See Instructions, APPLY TO AFFECTED AREA 3 TIMES A DAY, # 35.44 Gm, 11 Refills, Maintenance, 02/28/22 8:51:00 EST, [facility]/pharmacy #[id number], 30, APPLY TO AFFECTED AREA 3 TIMES A DAY, 157.5, cm, 02/21/22 14:36:00 EST, Height Start Date: 02/28/22 Status: Ordered lidocaine 5% topical ointment See Instructions, APPLY TO AFFECTED AREA 3 TIMES A DAY, # 35.44 Gm, 11 Refills, Maintenance, 07/03/22 18:22:00 EDT, [facility]/pharmacy #[id number], 30, Duplicate Rx. Original sent 07/03/22 with routing error. Re-sending to pharmacy, APPLY TO AFFECTED AREA 3 TIMES A... Start Date: 07/03/22 Status: Ordered losartan 50 mg oral tablet See Instructions, TAKE 1 TABLET BY MOUTH EVERY DAY, # 90 tablet, 1 Refills, Maintenance, 03/11/23 15:50:00 EST, [facility] STORE [facility]643, 157.5, cm, 02/19/23 9:20:00 EST, Height Start Date: 03/11/23 Status: Ordered Lyrica 25 mg oral capsule See Instructions, 1 capsule By Mouth 1 time daily at bedtime. E11.9, # 30 each, 2 Refills, Maintenance, 08/08/23 11:19:00 EDT, Capsule, [facility]/pharmacy #[id number], Partial fill upon patient request if the prescription is for a schedule II opioid drug., 157, c... Start Date: 08/08/23 Status: Ordered mirtazapine 15 mg oral tablet 1 tablet = 15 mg, By Mouth, Daily at bedtime, # 30 tablet, 4 Refills, Maintenance, 09/10/23 10:47:00 EDT, Tablet, [facility]/pharmacy #[id number], Partial fill upon patient request if the prescription is for a schedule II opioid drug., 157, cm, 09/10/23 8:42:00 ED... Start Date: 09/10/23 Stop Date: 02/07/24 Status: Ordered Narcan 4 mg/0.1 mL nasal spray = 4 mg, Nares, Both, Once, # 2 each, 2 Refills, Soft Stop, 02/22/23 14:30:00 EST, [facility]/pharmacy #[id number], Partial fill upon patient request if the prescription is for a schedule II opioid drug., 157.5, cm, 02/19/23 9:20:00 EST, Height Start Date: 02/22/23 Status: Ordered [place]-3 Fish Oil 1000 mg oral capsule 1 capsule = 1,000 mg, By Mouth, Daily, # 90 capsule, 1 Refills, Maintenance, 08/01/22 10:17:00 EDT,[facility]/pharmacy #[id number], Partial fill [...] Refills, Maintenance, 06/14/22 16:40:00 EDT, EC Tablet, [facility]/pharmacy #[id number], Partial fill upon patient request if the prescription is for a schedule II opioid drug., 157.5,... Start Date: 06/14/22 Status: Ordered ondansetron 4 mg oral tablet 1 tablet, By Mouth, Every 8 hours, PRN NEEDED FOR NAUSEA AND VOMITING FOR, # 30 tablet, 2 Refills, Maintenance, 07/03/23 14:40:00 EDT, [facility] STORE [facility], 157, cm, 06/24/23 14:54:00 EDT, Height, 88.3, [...] mL, 11 Refills, Maintenance, 08/23/23 11:17:00 EDT, [facility], Partial fill upon patient request if... Start Date: 08/23/23 Status: Ordered Pen [place], 31 G x 8 mm BD Ultra [...] 09/10/23 10:47:00 EDT, Route to Pharmacy Electronically, [facility]/pharmacy #[id number], Partial fill upon patient request if the prescription is for a schedule II opi... Start Date: 09/10/23 Stop Date: 02/07/24 Status: Ordered dental patient coordinator grabber tool dental patient coordinator grabber tool, See Instructions, # 1 each, Refills 0, Tot. Refills 0, Maintenance, please dispense one dental patient coordinator grabber tool, ICD 10 M54.6, length [...] tablet, 10 Refills, Maintenance, 08/15/23 14:04:00 EDT, [facility]/pharmacy #[id number], 157, cm, 07/24/23 12:52:00 EDT, Height, 84, kg, 07/24/23 12:52:00 EDT, Dry Weight Start Date: 08/15/23 Status: Ordered valACYclovir 500 mg oral tablet 1, tablet, By Mouth, 2 times a day, PRN, # 6 tablet, Refills 0, Maintenance, NEEDED FOR OUTBREAKS, 08/05/23 15:33:00 EDT, Route to Pharmacy Electronically, [facility] STORE 07124, 157, cm, 07/24/23 12:52:00 EDT, Height, 84, [...] Refills, Maintenance, 09/17/22 15:25:00 EDT, [facility], 157.5, cm, 09/05/22 16:22:00 EDT, Height Start [...] 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 *Briana Garces, [employer], ICP [phone] Confirmed Active PTSD (post-traumatic stress disorder) Confirmed [...] Name: Rose Mary FISCHER, Sergo Cole Position: [facility] Physician - Primary Care Member Role: PCP Address: Address: [address] [place] [address] [place] [address]- Name: Lizbeth Collins [place] Position: [facility] Office Staff Member Role: Primary Care Nurse Care Team Related Persons Name: LB HENLEY Address: [address] [place] [address] Name: LB HENLEY Address: home [address] [address] Name: MILENA CUBA Address: home [address] [place] [address] [address] [place] [address]
--- OUTSIDE RECORDS SUMMARY | 2024-01-23 14:44 | XMS_ITS | Continuity of Care Document ---
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 Name Role Phone Rose Mary FISCHER, Sergo Cole Primary Care Physician Encounter [facility] Date(s): 11/23/22 - 11/30/[address] [place] [address]- Attending Physician: Vik FISCHER, Aracelis Referring Physician: Nelson FISCHER, Krish Allergies, Adverse Reactions, Alerts Substance Reaction Severity [...] 1Result Comment: [01/22/2017] [facility] [id number] 2Admin Note: vis given dated 10/24/12 3Admin [...] 100 tablet, 1 Refills, Acute, 219:52:00 EDT, [id number], 157.48, cm, 10/11/20 9:39:00 EDT, Height Start Date: 10/26/20 Status: Ordered Alcohol Pads See Instructions, # 200 each, Refills 11, Tot. Refills 11, Maintenance, To cleans before injections5 x a day., 03/03/21 9:18:00 EST, E11.65, Compound, 157.48, cm, 03/01/21 15:54:00 EST, Height Start Date: 03/03/21 Stop Date: 02/26/22 Status: Ordered Wosjs-Zeklta-Hdly 300 mg oral capsule 1 capsule, By Mouth, 2 times a day, NOT COVERED., # 60 capsule, 11 Refills, [facility], 157.48, cm, 01/27/21 9:30:00 EDT, Height Start Date: 01/30/21 Status: Ordered ammonium lactate 12% topical cream 1 application, Topically, 2 times a day, # 385 Gm, 3 Refills, Maintenance, 08/24/22 14:16:00 EDT, Cream, [facility]/pharmacy #[id number], Partial fill upon patient request if the prescription is for a schedule IIopioid drug., 1 application Topically 2 times a day... Start Date: 08/24/22 Stop Date: 12/22/22 Status: Ordered atorvastatin 80 mg oral tablet 1 tablet = 80 mg, By Mouth, Daily, replaces Simvastatin, # 90 tablet, 4 Refills, Maintenance, 08/26/22 14:22:00 EDT, Tablet, [facility]/pharmacy #[id number], replaces simvastatin, 157.5, cm, 11/29/21 15:59:00 [...] Refills, Maintenance, 08/24/22 14:16:00 EDT, [facility]/pharmacy #[id number], 30, APPLY TO AFFECTED AREA TWICE [...] Refills, Maintenance, 07/09/22 10:30:00 EDT, [facility]/pharmacy #[id number], 30, 1 tablet By Mouth Daily,Instr:INSTR:TAKE [...] Details, Route to Pharmacy Electronically, [facility]/pharmacy... Start Date: 08/30/22 Status: Ordered diclofenac 1% topical gel See Instructions, APPLY TOPICALLY 4 TIMES A DAY NOT TO EXCEED 16 GRAMS/DAY/SINGLE JOINT OF LOWER EXTREMITIES, # 100 Gm, 6 Refills, Maintenance, 08/24/22 14:16:00 EDT, [facility]/pharmacy #[id number], 30, APPLY TOPICALLY 4 TIMES A DAY NOT TO EXCEED 16 GRAMS/DAY/SIN... Start Date: 08/24/22 Status: Ordered docusate sodium 100 mg oral capsule See Instructions, TAKE 1 CAPSULE BY MOUTH TWICE A DAY NEEDED FOR CONSTIPATION, # 60 capsule, 5 Refills, Maintenance, 07/03/22 18:20:00 EDT, [facility]/pharmacy #[id number], Duplicate Rx. Original sent 07/03/22 with routing error. Re- sending to pharmacy, 157.5, cm... Start Date: 07/03/22 Status: Ordered docusate sodium 100 mg oral capsule 100 mg, 1, capsule, By Mouth, 2 times a day, PRN, # 60 capsule, Refills 5, Tot. Refills 5, Maintenance, as needed for constipation, 06/12/22 9:52:00 EDT, Route to Pharmacy Electronically, [facility]/pharmacy #[id number], Partial fill upon [...] Refills, Maintenance, 09/20/22 9:36:00 EDT, [facility], 30, INHALE 1 PUFF BY MOUTH TWICE A DAY, 157.5, cm, 09/05/22 16:22:00 EDT, Height Start Date: 09/20/22 Status: Ordered fluticasone 50 mcg/inh nasal spray See Instructions, SPRAY 1 SPRAY INTO EACH NOSTRIL EVERY DAY, # 16 mL, 5 Refills, Maintenance, 07/05/22 16:20:00 EDT, [id number], 30, SPRAY 1 SPRAY INTO EACH NOSTRIL [...] Maintenance, 11/26/22 14:55:00 EDT, [facility], Partial fill upon patie... Start Date: 11/26/22 Status: Ordered Lactaid 3000 units oral tablet 3 tablet = 9,000 units, By Mouth, 3 times a day with meals, # 120 tablet, 5 Refills, Maintenance, 08/17/22 9:03:00 EDT, Tablet, [facility]/pharmacy #[id number], Partial fill upon patient request if the prescription is for a schedule II opioid drug., 157.5, cm, ... Start Date: 08/17/22 Stop Date: 02/13/23 Status: Ordered Lantus Solostar Pen 100 units/mL subcutaneous solution See Instructions, Take 45 units in the AM and 45 units daily at bedtime. E11.9., # 30 mL, 9 Refills, Maintenance, 11/26/22 14:55:00 EDT, [facility], Partial fill upon patient requestif the [...] 5 Refills, Maintenance, 05/01/22 18:04:00 EST, Capsule, [facility]/pharmacy #[id number], Partial fill upon [...] 90 capsule, 0 Refills, Maintenance, 10/18/2313:25:00 EDT, [facility]/pharmacy #[id number], Partial fill upon patient request if the prescription is for a schedule II opioid drug., 157.5, cm, 10/08/22 18:20:00... Start Date: 10/18/22 Stop Date: 01/16/23 Status: Ordered [place]-3 Fish Oil 1000 mg oral capsule 1 capsule = 1,000 mg, By Mouth, Daily, # 90 capsule, 1 Refills, Maintenance, 08/01/22 10:17:00 EDT,[facility]/pharmacy #[id number], Partial fill upon patient [...] 06/14/22 16:40:00 EDT, EC Tablet, [facility]/pharmacy #[id number], Partial fill upon patient request if the prescription is for a schedule II opioid drug., 157.5,... Start Date: 06/14/22 Status: Ordered oxyCODONE 10 mg oral tablet TAKE 1/2 TAB EVERY 12 HOURS NEEDED FOR SEVERE NECK/LOW BACK PAIN. DO NOT FILL UNTIL 05/01/21 Start Date: 06/02/21 Status: Ordered Pen [place], 31 G x 8 mm BD Ultra [...] 08/30/22 13:31:00 EDT, Route to Pharmacy Electronically, [facility]/pharmacy #[id number], Partial fill upon patient request if the prescription is for a schedule II opi... Start Date: 08/30/22 Stop Date: 01/27/23 Status: Ordered reverse logistics analyst grabber tool reverse logistics analyst grabber tool, See Instructions, # 1 each, Refills 0, Tot. Refills 0, Maintenance, please dispense one reverse logistics analyst grabber tool, ICD 10 M54.6, length [...] 14:16:00 EDT, 08/24/22 14:16:00 EDT, Chew Tablet, [facility]/pharmacy #[id number], Partial fill [...] 14:36:00 EDT, 04/19/22 14:36:00 EST, [facility]/pharmacy #[id number], 157.5, cm, 04/11/22 10:50:00 EST, Height Start Date: 04/19/22 Stop Date: 12/15/22 Status: Ordered Topamax 25 mg oral tablet 3 tablet = 75 mg, By Mouth, Daily at bedtime, # 90 tablet, 6 Refills, Maintenance, 06/26/22 10:14:00 EDT, Tablet, [facility], 157.5, cm, 06/21/22 [...] 07/11/22 16:11:00 EDT, Route to Pharmacy Electronically, [facility], 157.5, cm, 06/21/22 8:43:00 EDT, Height Start [...] each, 0 Refills, Maintenance, 09/17/22 15:25:00 EDT, [facility], 157.5, cm, 09/05/22 16:22:00 EDT, Height Start [...] 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 *Briana Garces, Sports Marketer, ICP [phone] Confirmed Active PTSD (post-traumatic stress disorder) Confirmed [...] oldest [Reference Range]: 1 Height 157.5 cm (11/23/22 9:24 AM) Weight 89.8 kg (11/23/22 9:24 AM) Pulse Rate [55-90 bpm] 85 bpm (11/23/22 9:24 AM) Body Mass Index [18.5-24.99 kg/m2] 36.2 kg/m2 *>HHI* (11/23/22 9:24 AM) Blood Pressure [90-138/55-84 mm Hg] 127/ 79mm Hg (11/23/22 9:24 AM) Temperature [96.8-100.4 DegF] 97.5 DegF (11/23/22 9:24 AM) Blood pressure sites Arm, left (11/23/22 9:24 AM) Temperature Route Temporal (11/23/22 9:24 AM) Social History Social History Type Response Smoking Status Never smoker entered on: 11/10/13 Sex Female Patient Care team information Care Team Personnel Name: Sergo Bazzi MD Position: [facility] Physician - Primary Care Member Role: PCP Address: Address: [address] [place] [address] [place] [address]- Name: Lizbeth Collins [place] Position: [facility] RN Member Role: Primary Care Nurse Care Team Related Persons Name: LB HENLEY Address: home [address] [place] [address] Name: SARAY HENLEYLIE Address: home [address] [address] Name: MILENA CUBA Address: home [address] [place] [address]
== END 2024-01-23 15:30 | disposition home or self-care (01) ==
LOC: HO.HUSH 14:18
PROVIDERS: PCP Internal Medicine; Visit Provider Nurse Practitioner Family
DX: N39.46 Mixed incontinence (principal)
CPT/HCPCS: 99204

== ENCOUNTER → 2024-01-23 14:18 | Outpatient (BNVA) | payer OTHER, SELFPAY | PROVIDERS: PCP Internal Medicine; Visit Provider Nurse Practitioner Family | DX: N39.46 Mixed incontinence (principal); R35.1 Nocturia | CPT/HCPCS: 51798; 81003; 99202 ==

== ENCOUNTER 2024-04-15 13:45 | Outpatient (REF) | payer OTHER, SELFPAY ==
--- NOTE | ~2024-04-15 | US_ITS ---
EXAMINATION: US RETROPERITONEAL LIMITED (RENAL ONLY) CLINICAL INFORMATION: Mixed incontinence.. COMPARISON: None available. TECHNIQUE: Real-time imaging of the kidneys. FINDINGS: RIGHT KIDNEY: 11.4 x 4.2 x 5.4 cm (SAG x AP x TRV). The kidney is normal in size, contour, with mildly increased cortical echogenicity. Renal cortical thickness is normal. No calculi or focal parenchymal lesions. No hydronephrosis. LEFT KIDNEY: 10.6 x 6.1 x 5.4 cm (SAG x AP x TRV). The kidney is normal in size, contour, with mildly increased cortical echogenicity. Renal cortical thickness is normal. No calculi or focal parenchymal lesions. No hydronephrosis. US/US renal BI IMPRESSION: 1. Mildly increased bilateral renal cortical echogenicity without thickening. This is nonspecific but likely likely represents intrinsic medical renal disease. No hydronephrosis or mass. No calculi seen. Electronically signed by: Yaya Koch MD 04/16/2024 09:04 AM [facility]
--- OUTSIDE RECORDS SUMMARY | 2024-04-15 16:14 | XMS_ITS | Continuity of Care Document ---
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 Name Role Phone Sergo Bazzi MD Primary Care Physician Encounter [facility] Date(s): 02/24/24 - 03/25/24 [facility] [address] [place], [place] [address] Attending Physician: Broderick Washburn Admitting Physician: Broderick Washburn Referring Physician: Admmina ArItzel Encounter Type: Triage Patient Care team information Care Team Personnel Name: Sergo Bazzi MD Position: S Physician - Primary Care Member Role: PCP Address: [address] [place] [address] [place] [address]- LQ Telecom: Care Team Related Persons Name: MILENA CUBA Insurance Providers Guarantor name: PATTI Health Plan Information #: 1 Payer: SHAI,KIMBERLY CTY JO MAIN Member Number: NA Policy Number: NA Group Number: NA
--- OUTSIDE RECORDS SUMMARY | 2024-04-15 16:14 | XMS_ITS | Continuity of Care Document ---
Author Organization [facility] er Address [address] [facility] [address] [place] [address]- Care Team Providers Care Claim Attorney Name Role Phone Sergo Bazzi MD Primary Care Physician [phone] Encounter [facility] ACCT R [id number] Date(s): 02/17/24 - 03/22/24 [facility] [address] [place] [address]- Attending Physician: Reina Ramires Admitting Physician: Reina Ramires Encounter Type: Pre Office Visit Patient Care team information Care Team Personnel Name: Sergo Bazzi MD Position: [facility] Physician - Primary Care Member Role: PCP Address: [address] [place] [address] [place] [address] WC Telecom: Care Team Related Persons Name: MILENA CUBA Insurance Providers Guarantor name: NA Health Plan Information #: 1 Payer: BRL,HAMPDEN CTY JO MAIN Member Number: NA Policy Number: NA Group Number: NA Health Plan Information #: 2 Payer: BRL,HAMPDEN CTY JO MAIN Member Number: NA Policy Number: NA Group Number: NA
--- OUTSIDE RECORDS SUMMARY | 2024-04-15 16:14 | XMS_ITS | Continuity of Care Document ---
Author Organization [facility] er Address [address] [facility] [address] [place] [address]- Care Team Providers Care Keyboard Instrument Repairer Name Role Phone Sergo Bazzi MD Primary Care Physician [place] [facility] [place] [id number] Date(s): 02/07/24 - 03/21/24 [facility] [address] [place] [address]- Attending Physician: Reina Ramires Admitting Physician: Reina Ramires Encounter Type: Pre Office Visit Patient Care team information Care Team Personnel Name: Sergo Bazzi MD Position: [facility] Physician - Primary Care Member Role: PCP Address: [address] [place] [address] [place] [address] SZ Telecom: Care Team Related Persons Name: MILENA CUBA Insurance Providers Guarantor name: NA Health Plan Information #: 1 Payer: BRL,HAMPDEN CTY JO MAIN Member Number: NA Policy Number: NA Group Number: NA Health Plan Information #: 2 Payer: BRL,HAMPDEN CTY JO MAIN Member Number: NA Policy Number: NA Group Number: NA
--- OUTSIDE RECORDS SUMMARY | 2024-04-15 16:14 | XMS_ITS | Continuity of Care Document ---
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 Name Role Phone Rose Mary FISCHER, Sergo Cole Primary Care Physician [phone] Encounter [facility] [place] Date(s): 03/13/24 - 04/12/24 [facility] [address] [place], [place] [phone] Encounter Type: Triage Allergies, Adverse Reactions, Alerts Substance Criticality Severity Reaction Reaction Severity Status morphine ITCH DIARRHEA Active cortisone Active Neurontin mental status changes Active Ultram nausea, vomit Active Latex powder eats up skin Active trazodone DEPRESSION Active Motrin eat lining of stomach Active Naprosyn gi upset Active CeleBREX gi upset Active Vioxx heart problems Activ e Immunizations Given and Recorded Vaccine Date Status [...] Given 1Result Comment: [01/22/2017] [facility] [id number] 2Admin Note: vis given dated 10/24/12 3Admin [...] off at night and when showering., 02/19/23 11:36:00AM EST, Supply Start Date: 02/19/23 Status: Ordered Quantity: 1.0 Unit: each Repeat number: 1 acetaminophen 500 mg oral tablet 2 tablet, By Mouth, 4 times a day, PRN NEEDED FOR PAIN, # 100 tablet, 1 Refills, Acute, 10/26/20 9:52:00 AM EDT, [id number], 157.48, cm, 10/11/20 9:39:00 EDT, Height Start Date: 10/26/20 Status: Ordered Quantity: 100.0 Unit: tablet Repeat number: 1 Adult Pull Up Briefs Adult Pull Up Briefs, See Instructions, # 180 each, Refills 11, Tot. Refills 11, Maintenance, Up to6 per day Size: L Directions: Use as needed for incontinence Dx: R32, R15 Duration: Lifetime, 06/25/23 11:00:00 AM EDT, Supply Start Date: 06/25/23 Status: Ordered Quantity: 180.0 Unit: each Repeat number: 12 Alcohol Pads See Instructions, # 200 each, Refills 11, Tot. Refills 11, Maintenance, To cleans before injections5 x a day., 10/30/23 1:58:00 PM EDT, E11.65, Compound, 157, cm, 10/18/23 11:52:00 EDT, Height, 84, kg, 07/24/23 12:52:00 EDT, Dry Weight Start Date: 10/30/23 Stop Date: 10/24/24 Status: Ordered Quantity: 200.0 Unit: each Repeat number: 12 Rihgf-Cmmzik-Ynkg 300 mg oral capsule 1 capsule, By Mouth, 2 times a day, NOT COVERED., # 60 capsule, 11 Refills, [id number], 157.48, cm, 01/27/21 9:30:00 EDT, Height Start Date: 01/30/21 Status: Ordered Quantity: 60.0 Unit: capsule Repeat number: 1 ammonium lactate 12% topical cream 1 application, Topically, 2 times a day, # 385 Gm, 1 Refills, Maintenance, 12/22/22 2:16:00 PM EDT, Cream, [facility]/pharmacy #[id number], Partial fill upon patient request if the prescription is for a schedule II opioid drug., 1 application Topically 2 times a day,x30 days, 157.5, cm, 11/26/22 14:11:00 EDT, Height Start Date: 12/22/22 Stop Date: 02/20/23 Status: Ordered Quantity: 385.0 Unit: g Repeat number: 2 Artificial Tears preserved solution 1 drops, Eyes, Both, 2 times a day, PRN for dry eyes, # 15 mL, 0 Refills, Maintenance, 09/10/23 8:57:00 AM EDT, Solution, [facility]/pharmacy #[id number], Partial fill upon patient request if the prescription is for a schedule II opioid drug., 1 drops Eyes, Both 2 times a day,PRN:for dry eyes, 157, cm, 09/10/23 8:42:00 EDT, Height, 84, kg, 07/24/23 12:52:00 EDT, Dry Weight Start Date: 09/10/23 Status: Ordered Quantity: 15.0 Unit: mL Repeat number: 1 atorvastatin 80 mg oral tablet See Instructions, TAKE 1 TABLET BY MOUTH DAILY. INSTR:REPLACES SIMVASTATIN, # 90 tablet, 1 Refills,Maintenance, 03/13/24 1:51:00 PM EST, [facility]/pharmacy #[id number], 157, cm, 03/11/24 8:17:00 EST, Height, 78, kg, 03/11/24 8:17:00 EST, Dry Weight Start Date: 03/13/24 Status: Ordered Quantity: 90.0 Unit: tablet Repeat number: 2 atorvastatin 80 mg oral tablet 1 tablet, By Mouth, Daily, INSTR:REPLACES SIMVASTATIN, # 90 tablet, 1 Refills, Maintenance, 05/22/2411:07:00 PM EST, [id number], 157, cm, 05/06/23 14:23:00 EST, Height, 88.3, kg, 04/16/23 11:33:00 EST, Dry Weight Start Date: 05/22/23 Status: Ordered Quantity: 90.0 Unit: tablet Repeat number: 1 BD Single Use Swab 70% topical pad See Instructions, TO CLEANS BEFORE INJECTIONS 5 X A DAY., # 150 Unknown, 11 Refills, Maintenance, 08/16/22 10:15:00 AM EDT, [facility], 30, TO CLEANS BEFORE INJECTIONS 5 X A DAY., 157.5, cm, 08/01/22 9:27:00 EDT, Height Start Date: 08/16/22 Status: Ordered Quantity: 150.0 Unit: Unknown Repeat number: 1 busPIRone 5 mg oral tablet 5 mg, 1, tablet, By Mouth, 3 times a day, # 90 tablet, Refills 4, Tot. Refills 4, Maintenance, 02/07/24 10:46:00 AM EST, Route to Pharmacy Electronically, [facility]/pharmacy #[id number], Partial fill upon patientrequest if the prescription is for a schedule II opioid drug., 157, cm, 10/18/23 11:52:00 EDT, Height, 84, kg, 07/24/23 12:52:00 EDT, Dry Weight Start Date: 02/07/24 Stop Date: 07/06/24 Status: Ordered Quantity: 90.0 Unit: tablet Repeat number: 5 busPIRone 5 mg oral tablet 5 mg, 1, tablet, By Mouth, 3 times a day, for 30 days, # 90 tablet, Refills 4, Tot. Refills 4, HardStop 07/06/24 10:46:00 AM EDT, 02/07/24 10:46:00 AM EST, Route to Pharmacy Electronically, [facility]/pharmacy #[id number], Partial fill upon patient request if the prescription is for a schedule II opioid drug., 157, cm, 10/18/23 11:52:00 EDT, Height, 84, kg, 07/24/23 12:52:00 EDT, Dry Weight Start Date: 02/07/24 Stop Date: 07/06/24 Status: Ordered Quantity: 90.0 Unit: tablet Repeat number: 5 capsaicin 0.075% topical cream See Instructions, APPLY TO AFFECTED AREA TWICE A DAY, # 57 Gm, 3 Refills, Maintenance, 01/24/24 3:25:00 PM EDT, [facility]/pharmacy #[id number], 30, APPLY TO AFFECTED AREA TWICE A DAY, 157, cm, 12/17/23 11:46:00 EDT, Height, 84, kg, 07/24/23 12:52:00 EDT, Dry Weight Start Date: 01/24/24 Status: Ordered Quantity: 57.0 Unit: g Repeat number: 4 CLEAR EYES NATURAL TEARS DROP CLEAR EYES NATURAL TEARS DROP, See Instructions, # 15 mL, 0 Refills, Maintenance, INSTILL 1 DROP INBOTH EYES 2 TIMES A DAY NEEDED FOR DRY EYES, 11/06/23 7:49:00 AM EDT, 157, cm, 10/18/23 11:52:00 EDT, Height, 84, kg, 07/24/23 12:52:00 EDT, Dry Weight Start Date: 11/06/23 Status: Ordered Quantity: 15.0 Unit: mL Repeat number: 1 CPAP Machine See Instructions, # 1 each, Maintenance, CPAP 8 cm H20, use Daily when sleeping, 04/05/23 1:31:00 PM EST, Supply Start Date: 04/05/23 Status: Ordered Quantity: 1.0 Unit: each Repeat number: 1 CPAP Supplies CPAP Supplies, See Instructions, # 1 each, Refills 0, Tot. Refills 0, Maintenance, Directions: Use daily when sleeping Dx: STORMY G47.33 Duration: Lifetime, 03/20/22 11:01:00 AM EST, Supply Start Date: 03/20/22 Status: Ordered Quantity: 1.0 Unit: each Repeat number: 1 Daily David oral tablet 1 tablet, By Mouth, Daily, SEPARATE FROM ORLISTAT., # 30 tablet, 5 Refills, Maintenance, 11/06/23 5:25:00 PM EDT, [facility]/pharmacy #[id number], 1 tablet By Mouth Daily,Instr:SEPARATE FROM ORLISTAT., 157, cm, 10/18/23 11:52:00 EDT, Height, 84, kg, 07/24/23 12:52:00 EDT, Dry Weight Start Date: 11/06/23 Status: Ordered Quantity: 30.0 Unit: tablet Repeat number: 6 diazepam 5 mg oral tablet 5 mg, 1, tablet, By Mouth, 2 times a day, for 30 days, TAKE 1 TABLET BY MOUTH TWICE A DAY., # 60 tablet, Refills 4, Tot. Refills 4, Acute 12/03/24 10:46:00 AM EDT, 07/06/24 10:46:00 AM EDT, Route to Pharmacy Electronically, [facility]/pharmacy #[id number], Partial fill upon patient request if the prescription is for a schedule II opioid drug., 157, cm, 10/18/23 11:52:00 EDT, Height, 84, kg, 07/24/23 12:52:00 EDT,Dry Weight Start Date: 07/06/24 Stop Date: 12/03/24 Status: Ordered Quantity: 60.0 Unit: tablet Repeat number: 5 diazepam 5 mg oral tablet 5 mg, 1, tablet, By Mouth, 2 times a day, for 30 days, TAKE 1 TABLET BY MOUTH TWICE A DAY., # 60 tablet, Refills 4, Tot. Refills 4, Acute 05/02/25 10:46:00 AM EST, 12/03/24 10:46:00 AM EDT, Print Requisition, Partial fill upon patient request if the prescription is for a schedule II opioid drug. Start Date: 12/03/24 Stop Date: 05/02/25 Status: Ordered Quantity: 60.0 Unit: tablet Repeat number: 5 diazepam 5 mg oral tablet 5 mg, 1, tablet, By Mouth, 2 times a day, for 30 days, TAKE 1 TABLET BY MOUTH TWICE A DAY., # 60 tablet, Refills 4, Tot. Refills 4, Acute 09/29/25 10:46:00 AM EDT, 05/02/25 10:46:00 AM EST, Route to Pharmacy Electronically, [facility]/pharmacy #[id number], Partial fill upon patient request if the prescription is for a schedule II opioid drug., 157, cm, 03/11/24 8:17:00 EST, Height, 78, kg, 03/11/24 8:17:00 EST, Dry Weight Start Date: 05/02/25 Stop Date: 09/29/25 Status: Ordered Quantity: 60.0 Unit: tablet Repeat number: 5 diclofenac 1% topical gel See Instructions, APPLY TOPICALLY 4 TIMES A DAY NOT TO EXCEED 16 GRAMS/DAY/SINGLE JOINT OF LOWER EXTREMITIES, # 100 Gm, 4 Refills, Maintenance, 01/24/24 3:25:00 PM EDT, [facility]/pharmacy #[id number], 30, APPLY TOPICALLY 4 TIMES A DAY NOT TO EXCEED 16 GRAMS/DAY/SINGLE JOINT OF LOWER EXTREMITIES, 157, cm, 12/17/23 11:46:00 EDT, Height, 84, kg, 07/24/23 12:52:00 EDT, Dry Weight Start Date: 01/24/24 Status: Ordered Quantity: 100.0 Unit: g Repeat number: 5 Disposable Underpads Disposable Underpads, See Instructions, # 180 each, Refills 11, Tot. Refills 11, Maintenance, Up to6 per day Directions: Use as needed for incontinence Dx: R32, R15 Duration: Lifetime, 06/25/23 10:59:00 AM EDT, Supply Start Date: 06/25/23 Status: Ordered Quantity: 180.0 Unit: each Repeat number: 12 docusate sodium 100 mg oral capsule See Instructions, TAKE 1 CAPSULE BY MOUTH TWICE A DAY NEEDED FOR CONSTIPATION, # 60 capsule, 5 Refills, Maintenance, 07/03/22 6:20:00 PM EDT, [facility]/pharmacy #[id number], Duplicate Rx. Original sent 07/03/22 with routing error. Re- sending to pharmacy, 157.5, cm, 06/21/22 8:43:00 EDT, Height Start Date: 07/03/22 Status: Ordered Quantity: 60.0 Unit: capsule Repeat number: 6 esomeprazole 40 mg oral enteric coated capsule 1 capsule = 40 mg, By Mouth, Daily, # 90 capsule, 3 Refills, Maintenance, 09/25/23 4:33:00 PM EDT, [facility]/pharmacy #[id number], Partial fill upon patient request if the prescription is for a schedule II opioiddrug., 157, cm, 09/25/23 16:26:00 EDT, Height, 84, kg, 07/24/23 12:52:00 EDT, Dry Weight Start Date: 09/25/23 Status: Ordered Quantity: 90.0 Unit: capsule Repeat number: 4 esomeprazole 40 mg oral enteric coated capsule 1 capsule = 40 mg, By Mouth, Daily, # 90 capsule, 1 Refills, Maintenance, 09/02/23 4:20:00 PM EDT, [facility]/pharmacy #[id number], Partial fill upon patient request if the prescription is for a schedule II opioid drug., 157, cm, 07/24/23 12:52:00 EDT, Height, 84, kg, 07/24/23 12:52:00 EDT, Dry Weight Start Date: 09/02/23 Status: Ordered Quantity: 90.0 Unit: capsule Repeat number: 2 fentaNYL 25 mcg/hr transdermal film, extended release APPLY 1 PATCH EVERY 72 HOURS. DO NOT FILL UNTIL 05/01/21. OK TO PARTIAL FILL UPON REQUEST. Start Date: 06/02/21 Status: Ordered Repeat number: 1 Flovent Diskus 50 mcg/inh inhalation powder 1 puffs, Inhalation, 2 times a day, # 60 each, 0 Refills, Maintenance, 11/06/23 5:54:00 PM EDT, [facility]/pharmacy #[id number], 30, 1 puffs Inhalation 2 times a day, 157, cm, 10/18/23 11:52:00 EDT, Height, 84, kg,07/24/23 12:52:00 EDT, Dry Weight Start Date: 11/06/23 Status: Ordered Quantity: 60.0 Unit: each Repeat number: 1 fluticasone 50 mcg/inh nasal spray See Instructions, SPRAY 1 SPRAY INTO EACH NOSTRIL EVERY DAY, # 16 mL, 5 Refills, Maintenance, 11/06/23 5:54:00 PM EDT, [facility]/pharmacy #[id number], 30, SPRAY 1 SPRAY INTO EACH NOSTRIL EVERY DAY, 157, cm, 10/18/23 11:52:00 EDT, Height, 84, kg, 07/24/23 12:52:00 EDT, Dry Weight Start Date: 11/06/23 Status: Ordered Quantity: 16.0 Unit: mL Repeat number: 6 FREESTYLE INSULINX TEST STRIPS FREESTYLE INSULINX TEST STRIPS, See Instructions, # 100 Unknown, 13 Refills, Maintenance, USE TO CHECK BLOOD GLUCOSE LEVELS UP TO 4 TIMES DAILY. E11.9, 05/02/23 8:31:00 AM EST, 157, cm, 04/17/23 7:57:00 EST, Height, 88.3, kg, 04/16/23 11:33:00 EST, Dry Weight Start Date: 05/02/23 Status: Ordered Quantity: 100.0 Unit: Unknown Repeat number: 1 FREESTYLE LANCETS MISC Miscellaneous FREESTYLE LANCETS MIS Miscellaneous, See Instructions, # 100 Unknown, 5 Refills, Maintenance, USE FOUR TIMES A DAY DIRECTED, 01/09/23 8:49:00 AM EDT, 157.5, cm, 12/28/22 15:12:00 EDT, Height Start Date: 01/09/23 Status: Ordered Quantity: 100.0 Unit: Unknown Repeat number: 1 Freestyle Lite Lancets See Instructions, # 200 each, Refills 11, Tot. Refills 11, Maintenance, use as directed for Type 2 Diabetes Mellitus to check BGs 4x dialy. E11.9, 07/24/23 1:21:00 PM EDT, Supply, 157, cm, 07/24/23 12:52:00 EDT, Height, 84, kg, 07/24/23 12:52:00 EDT, Dry Weight Start Date: 07/24/23 Stop Date: 07/18/24 Status: Ordered Quantity: 200.0 Unit: each Repeat number: 12 Indication: Type 2 diabetes mellitus without complications Freestyle Lite Monitor See Instructions, # 1 each, Refills 0, Tot. Refills 0, Maintenance, use as directed for Type 2 Diabetes Mellitus to check BGs 4x dialy. E11.9, 06/19/22 5:01:00 PM EDT, Supply, 157.5, cm, 06/19/22 15:46:00 EDT, Height Start Date: 06/19/22 Status: Ordered Quantity: 1.0 Unit: each Repeat number: 1 Freestyle Lite Test Strips See Instructions, # 200 each, Refills 8, Tot. Refills 8, Maintenance, use as directed for Type 2 Diabetes Mellitus to check BGs 4x dialy. E11.9, 07/24/23 1:22:00 PM EDT, Supply, 157, cm, 07/24/23 12:52:00 EDT, Height, 84, kg, 07/24/23 12:52:00 EDT, Dry Weight Start Date: 07/24/23 Stop Date: 04/19/24 Status: Ordered Quantity: 200.0 Unit: each Repeat number: 9 Indication: Type 2 diabetes mellitus without complications FREESTYLE LITE TEST STRP Strip FREESTYLE LITE TEST STRP Strip, See Instructions, # 150 Unknown, 8 Refills, Maintenance, USE DIRECTED FOR TYPE 2 DIABETES MELLITUS TO CHECK BGS 4X DAILY. E11.9, 07/04/23 2:30:00 PM EDT, 157, cm, 06/24/23 14:54:00 EDT, Height, 88.3, kg, 04/16/23 11:33:00 EST, Dry Weight Start Date: 07/04/23 Status: Ordered Quantity: 150.0 Unit: Unknown Repeat number: 1 Gas Relief Extra Strength 125 mg oral tablet, chewable See Instructions, CHEW 1 TABLET BY MOUTH 4 TIMES A DAY FOR 21 DAYS NEEDED FOR GAS, # 48 tablet, 4 Refills, Maintenance, 11/06/23 5:54:00 PM EDT, [facility]/pharmacy #[id number], 157, cm, 10/18/23 11:52:00 EDT, Height, 84, kg, 07/24/23 12:52:00 EDT, Dry Weight Start Date: 11/06/23 Status: Ordered Quantity: 48.0 Unit: tablet Repeat number: 5 Gloves Gloves, See Instructions, # 1 each, Refills 11, Tot. Refills 11, Maintenance, 1 box per month Size:Large Use as needed for incontinence Dx: R15, R32 Duration: Lifetime, 06/25/23 11:00:00 AM EDT, Supply Start Date: 06/25/23 Status: Ordered Quantity: 1.0 Unit: each Repeat number: 12 hospital bed mattress replacement hospital bed mattress replacement, See Instructions, # 1 each, Refills 0, Tot. Refills 0, Maintenance, please dispense 1 hospital bed mattress replacement - DX G89.4, length of use lifetime, 05/10/22 5:39:00 PM EST, Supply Start Date: 05/10/22 Status: Ordered Quantity: 1.0 Unit: each Repeat number: 1 hospital bed with mattress hospital bed with mattress, See Instructions, # 1 each, Refills 0, Tot. Refills 0, Maintenance, Please dispense one hospital bed with mattress, ICD 10 G89.4, length of use lifetime, 05/09/22 12:35:00 PM EST, Supply Start Date: 05/09/22 Status: Ordered Quantity: 1.0 Unit: each Repeat number: 1 hydrOXYzine hydrochloride 25 mg oral tablet 1 tablet = 25 mg, By Mouth, 2 times a day, as needed for anxiety, # 60 tablet, 4 Refills, Soft Stop, 02/07/24 10:47:00 AM EST, Tablet, [facility]/pharmacy #[id number], Partial fill upon patient request if the prescription is for a schedule II opioid drug., 157, cm, 10/18/23 11:52:00 EDT, Height, 84, kg, 07/24/2411:52:00 EDT, Dry Weight Start Date: 02/07/24 Stop Date: 07/06/24 Status: Ordered Quantity: 60.0 Unit: tablet Repeat number: 5 Insulin Lispro KwikPen 100 units/mL injectable solution See Instructions, INJECT 4 TO 14 UNITS THREE TIMES A DAY BEFORE MEALS BASED ON SLIDING SCALE. MAX DAILY DOSE 42 UNITS, # 15 mL, 11 Refills, Maintenance, 03/06/24 5:29:00 PM EST, [facility], 157, cm, 12/17/23 11:46:00 EDT, Height, 84, kg, 07/24/23 12:52:00 EDT, Dry Weight Start Date: 03/06/24 Status: Ordered Quantity: 15.0 Unit: mL Repeat number: 1 lactase 3000 u oral tablet See Instructions, TAKE 3 TABLET BY MOUTH 3 TIMES A DAY WITH MEALS,INSTR:X30 DAYS., # 120 tablet, 3 Refills, Maintenance, 03/13/24 1:52:00 PM EST, [id number], 157, cm, 03/11/24 8:17:00 EST, Height, 78, kg, 03/11/24 8:17:00 EST, Dry Weight Start Date: 03/13/24 Status: Ordered Quantity: 120.0 Unit: tablet Repeat number: 1 lactase 3000 u oral tablet 3 tablet, By Mouth, 3 times a day with meals, X30 DAYS., # 120 tablet, 3 Refills, Maintenance, 11/06/23 7:51:00 AM EDT, [facility]/pharmacy #[id number], 157, cm, 10/18/23 11:52:00 EDT, Height, 84, kg, 07/24/23 12:52:00 EDT, Dry Weight Start Date: 11/06/23 Status: Ordered Quantity: 120.0 Unit: tablet Repeat number: 4 Lantus Solostar Pen 100 units/mL subcutaneous solution See Instructions, INJECT 45 UNITS SUBCUTANEOUSLY EVERY MORNING AND EVERY NIGHT AT BEDTIME, # 15 mL,11 Refills, Maintenance, 03/06/24 5:29:00 PM EST, [facility], 157, cm, 12/17/23 11:46:00 EDT, Height, 84, kg, 07/24/23 12:52:00 EDT, Dry Weight Start Date: 03/06/24 Status: Ordered Quantity: 15.0 Unit: mL Repeat number: 1 levothyroxine 0.088 mg oral tablet 1 tablet = 88 mcg, By Mouth, Daily, # 90 tablet, 3 Refills, Maintenance, 03/12/24 7:46:00 AM EST, [facility]/pharmacy #[id number], Partial fill upon patient request if the prescription is for a schedule II opioiddrug., 157, cm, 03/11/24 8:17:00 EST, Height, 78, kg, 03/11/24 8:17:00 EST, Dry Weight Start Date: 03/12/24 Stop Date: 03/07/25 Status: Ordered Quantity: 90.0 Unit: tablet Repeat number: 4 Indication: Hypothyroidism, unspecified lidocaine 5% topical ointment See Instructions, APPLY TO AFFECTED AREA 3 TIMES A DAY, # 35.44 Gm, 3 Refills, Maintenance, 03/13/24 1:53:00 PM EST, [id number], 30, Duplicate Rx. Original sent 07/03/22 with routing error. Re-sending to pharmacy, APPLY TO AFFECTED AREA 3 TIMES A DAY, 157, cm, 03/11/24 8:17:00 EST, Height, 78, kg, 03/11/24 8:17:00 EST, Dry Weight Start Date: 03/13/24 Status: Ordered Quantity: 35.44 Unit: g Repeat number: 4 lidocaine 5% topical ointment See Instructions, APPLY TO AFFECTED AREA 3 TIMES A DAY, # 35.44 Gm, 11 Refills, Maintenance, 02/28/22 8:51:00 AM EST, [facility]/pharmacy #[id number], 30, APPLY TO AFFECTED AREA 3 TIMES A DAY, 157.5, cm, 02/21/2214:36:00 EST, Height Start Date: 02/28/22 Status: Ordered Quantity: 35.44 Unit: g Repeat number: 12 losartan 50 mg oral tablet See Instructions, TAKE 1 TABLET BY MOUTH EVERY DAY, # 90 tablet, 1 Refills, Maintenance, 10/17/23 1:55:00 PM EDT, [facility]/pharmacy #[id number], 157, cm, 10/12/23 11:14:00 EDT, Height, 84, kg, 07/24/23 12:52:00 EDT, Dry Weight Start Date: 10/17/23 Status: Ordered Quantity: 90.0 Unit: tablet Repeat number: 2 Lyrica 25 mg oral capsule See Instructions, 1 capsule By Mouth 1 time daily at bedtime. E11.9, # 30 each, 5 Refills, Maintenance, 03/13/24 3:47:00 PM EST, Capsule, [id number], Partial fill upon patient request if the prescription is for a schedule II opioid drug., 157, cm, 03/11/24 8:17:00 EST, Height, 78, kg, 03/11/24 8:17:00 EST, Dry Weight Start Date: 03/13/24 Status: Ordered Quantity: 30.0 Unit: each Repeat number: 6 Indication: Polyneuropathy, unspecified mirtazapine 15 mg oral tablet 1 tablet = 15 mg, By Mouth, Daily at bedtime, # 30 tablet, 4 Refills, Maintenance, 02/07/24 10:47:00AM EST, Tablet, [facility]/pharmacy #[id number], Partial fill upon patient request if the prescription is for a schedule II opioid drug., 157, cm, 10/18/23 11:52:00 EDT, Height, 84, kg, 07/24/23 12:52:00 EDT, DryWeight Start Date: 02/07/24 Stop Date: 07/06/24 Status: Ordered Quantity: 30.0 Unit: tablet Repeat number: 5 Murine Ear Drops 6.5% solution See Instructions, INSTILL 5 DROPS INTO BOTH EARS TWICE DAILY FOR 7 DAYS, # 15 mL, 0 Refills, Maintenance, 09/30/23 10:01:00 AM EDT, [id number], 30, INSTILL 5 DROPS INTO BOTH EARS TWICE DAILY FOR 7DAYS, 157, cm, 09/25/23 16:26:00 EDT, Height, 84, kg, 07/24/23 12:52:00 EDT, Dry Weight Start Date: 09/30/23 Status: Ordered Quantity: 15.0 Unit: mL Repeat number: 1 Narcan 4 mg/0.1 mL nasal spray = 4 mg, Nares, Both, Once, # 2 each, 2 Refills, Soft Stop, 02/22/23 2:30:00 PM EST, [facility]/pharmacy #[id number], Partial fill upon patient request if the prescription is for a schedule II opioid drug., 157.5,cm, 02/19/23 9:20:00 EST, Height Start Date: 02/22/23 Status: Ordered Quantity: 2.0 Unit: each Repeat number: 3 Bedrock-3 Fish Oil 1000 mg oral capsule 1 capsule = 1,000 mg, By Mouth, Daily, # 90 capsule, 1 Refills, Maintenance, 08/01/22 10:17:00 AM EDT, [facility]/pharmacy #[id number], Partial fill upon patient request if the prescription is for a schedule II opioid drug., 157.5, cm, 08/01/22 9:27:00 EDT, Height Start Date: 08/01/22 Status: Ordered Quantity: 90.0 Unit: capsule Repeat number: 2 omeprazole 20 mg oral delayed release tablet 1 tablet = 20 mg, By Mouth, 2 times a day, do not crush or chew, # 60 tablet, 2 Refills, Maintenance, 06/14/22 4:40:00 PM EDT, EC Tablet, [facility]/pharmacy #[id number], Partial fill upon patient request if the prescription is for a schedule II opioid drug., 157.5, cm, 06/14/22 16:25:00 EDT, Height Start Date: 06/14/22 Status: Ordered Quantity: 60.0 Unit: tablet Repeat number: 3 ondansetron 4 mg oral tablet 1 tablet, By Mouth, Every 8 hours, PRN NEEDED FOR NAUSEA AND VOMITING FOR, # 30 tablet, 2 Refills, Maintenance, 07/03/23 2:40:00 PM EDT, [id number], 157, cm, 06/24/23 14:54:00 EDT, Height, 88.3, kg, 04/16/23 11:33:00 EST, Dry Weight Start Date: 07/03/23 Stop Date: 07/13/23 Status: Ordered Quantity: 30.0 Unit: tablet Repeat number: 1 oxyCODONE 10 mg oral tablet TAKE 1/2 TAB EVERY 12 HOURS NEEDED FOR SEVERE NECK/LOW BACK PAIN. DO NOT FILL UNTIL 05/01/21 Start Date: 06/02/21 Status: Ordered Repeat number: 1 Pen [place], 31 G x 8 mm BD Ultra Fine III See Instructions, # 450 each, Refills 3, Tot. Refills 3, Maintenance, e11.9, use for insulin injections up to 5 times daily, 90 day supply, 06/10/23 11:13:00 AM EDT, Supply, 157, cm, 05/06/23 14:23:00EST, Height, 88.3, kg, 04/16/23 11:33:00 EST, Dry Weight Start Date: 06/10/23 Status: Ordered Quantity: 450.0 Unit: each Repeat number: 4 QUEtiapine 25 mg oral tablet 25 mg, 1, tablet, By Mouth, 2 times a day, # 60 tablet, Refills 4, Tot. Refills 4, Maintenance, 02/07/24 10:47:00 AM EST, Route to Pharmacy Electronically, [facility]/pharmacy #[id number], Partial fill upon patient request if the prescription is for a schedule II opioid drug., 157, cm, 10/18/23 11:52:00 EDT, Height, 84, kg, 07/24/23 12:52:00 EDT, Dry Weight Start Date: 02/07/24 Stop Date: 07/06/24 Status: Ordered Quantity: 60.0 Unit: tablet Repeat number: 5 director heart grabber tool director heart grabber tool, See Instructions, # 1 each, Refills 0, Tot. Refills 0, Maintenance, please dispense one director heart grabber tool, ICD 10 M54.6, length of use 1 month, 04/12/22 10:13:00 AM EST, Supply Start Date: 04/12/22 Status: Ordered Quantity: 1.0 Unit: each Repeat number: 1 replacement hospital bed with mattress replacement hospital bed with mattress, See Instructions, # 1 each, Refills 0, Tot. Refills 0, Maintenance, please dispense 1 replacement hospital bed wth mattress, DX G89.4, length of use lifetime, 06/20/22 2:20:00 PM EDT, Supply Start Date: 06/20/22 Status: Ordered Quantity: 1.0 Unit: each Repeat number: 1 topiramate 25 mg oral tablet 4 tablet = 100 mg, By Mouth, Daily at bedtime, # 120 tablet, 10 Refills, Maintenance, 02/20/24 11:05:00 AM EST, [facility]/pharmacy #[id number], 157, cm, 12/17/23 11:46:00 EDT, Height, 84, kg, 07/24/23 12:52:00 EDT, Dry Weight Start Date: 02/20/24 Stop Date: 01/15/25 Status: Ordered Quantity: 120.0 Unit: tablet Repeat number: 11 Trulicity Pen 4.5 mg/0.5 mL subcutaneous solution = 4.5 mg, Subcutaneous Infusion, Every week, # 2 mL, 11 Refills, Maintenance, 03/11/24 8:41:00 AM EST, [facility], Partial fill upon patient request if the prescription is for a schedule II opioid drug., 157, cm, 03/11/24 8:17:00 EST, Height, 78, kg, 03/11/24 8:17:00 EST, Dry Weight Start Date: 03/11/24 Status: Ordered Quantity: 2.0 Unit: mL Repeat number: 12 Indication: Type 2 diabetes mellitus without complications valACYclovir 500 mg oral tablet See Instructions, TAKE 1 TABLET BY MOUTH 2 TIMES A DAY,X3 DAYS, NEEDED FOR OUTBREAKS, # 6 tablet, Refills 0, Maintenance, 03/13/24 1:50:00 PM EST, Instructions Replace Required Details, Route to Pharmacy Electronically, [id number], 157, cm, 03/11/24 8:17:00 EST, Height, 78, kg, 03/11/24 8:17:00 EST, Dry Weight Start Date: 03/13/24 Status: Ordered Quantity: 6.0 Unit: tablet Repeat number: 1 valACYclovir 500 mg oral tablet See Instructions, TAKE 1 TABLET BY MOUTH 2 TIMES A DAY,X3 DAYS, NEEDED FOR OUTBREAKS, # 6 tablet, Refills 0, Maintenance, 11/06/23 7:49:00 AM EDT, Instructions Replace Required Details, Route to Pharmacy Electronically, [facility], 157, cm, 10/18/23 11:52:00 EDT, Height, 84, kg, 07/24/23 12:52:00 EDT, Dry Weight Start Date: 11/06/23 Status: Ordered Quantity: 6.0 Unit: tablet Repeat number: 1 valACYclovir 500 mg oral tablet 1, tablet, By Mouth, 2 times a day, PRN, # 6 tablet, Refills 0, Maintenance, NEEDED FOR OUTBREAKS, 10/09/23 10:57:00 AM EDT, Route to Pharmacy Electronically, [facility], 157, cm, 09/25/23 16:26:00 EDT, Height, 84, kg, 07/24/23 12:52:00 EDT, Dry Weight Start Date: 10/09/23 Status: Ordered Quantity: 6.0 Unit: tablet Repeat number: 1 Vascepa 1 g oral capsule 2 capsule = 2 Gm, By Mouth, 2 times a day, # 360 capsule, 5 Refills, Maintenance, 05/03/20 3:59:00 PMEST, Capsule, [id number], 157.48, cm, 03/04/20 14:14:00 EST, Height Start Date: 05/03/20 Status: Ordered Quantity: 360.0 Unit: capsule Repeat number: 6 Ventolin HFA 108 mcg/inh inhalation aerosol with adapter 1 puffs, Inhalation, 4 times a day, PRN NEEDED FOR WHEEZING, # 18 each, 5 Refills, Maintenance, 03/01/24 12:44:00 PM EST, [id number], 157, cm, 12/17/23 11:46:00 EDT, Height, 84, kg, 07/24/23 12:52:00 EDT, Dry Weight Start Date: 03/01/24 Status: Ordered Quantity: 18.0 Unit: each Repeat number: 6 Problem List Condition Confirmation Course Effective Dates [...] 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 No wall motion abnormalities, Does [...] Never smoker entered on: 11/10/13 Sex Female Sex Representation Female (finding) Patient Care team information Care Team Personnel Name: Sergo Bazzi MD Position: [facility] Physician - Primary Care Member Role: PCP Address: [address] [place] [address] [place] [address]- Telecom: Name: Lizbeth Collins [place] Position: [facility] Office Staff Member Role: Primary Care Nurse Care Team Related Persons Name: LB HENLEY Name: LB HENLEY Name: MILENA CUBA Insurance Providers Guarantor name: MICHAEL HENLEY [facility] Information #: 1 Payer: [employer] Member Number: NA Policy Number: NA Group Number: NA
--- OUTSIDE RECORDS SUMMARY | 2024-04-15 16:14 | XMS_ITS | Continuity of Care Document ---
Author Organization [facility] Address [address] [place] [address]- Care Team Providers Care Word Processing Operator Name Role Phone Sergo Bazzi MD Primary Care Physician [phone] Encounter [facility] Date(s): 03/01/24 - 03/31/24 [facility] [address] [place], [place] [address] [phone] Encounter Type: Triage Allergies, Adverse Reactions, Alerts Substance Criticality Severity Reaction Reaction Severity Status morphine ITCH DIARRHEA Active trazodone DEPRESSION Active cortisone Active Motrin eat lining of stomach Active Naprosyn gi upset Active Neurontin mental status changes Active Ultram nausea, vomit Active Vioxx heart problems Activ e Latex powder eats up skin Active CeleBREX [...] (oldterm) 8 01/21/08 Given 1Result Comment: [01/22/2017] [facility] [id number] 2Admin Note: vis given dated 10/24/12 3Admin [...] 1 Refills, Acute, 10/26/20 9:52:00 AM EDT, [facility], 157.48, cm, 10/11/20 9:39:00 EDT, Height Start [...] Quantity: 200.0 Unit: each Repeat number: 12 Wrtox-Hhxvby-Fegr 300 mg oral capsule 1 capsule, By Mouth, 2 times a day, NOT COVERED., # 60 capsule, 11 Refills, [facility], 157.48, cm, 01/27/21 9:30:00 EDT, Height Start Date: 01/30/21 Status: Ordered Quantity: 60.0 Unit: capsule Repeat number: 1 ammonium lactate 12% topical cream 1 application, Topically, 2 times a day, # 385 Gm, 1 Refills, Maintenance, 12/22/22 2:16:00 PM EDT, Cream, [id number], Partial [...] Refills, Maintenance, 09/10/23 8:57:00 AM EDT, Solution, [id number], Partial fill upon [...] tablet, 1 Refills,Maintenance, 03/13/24 1:51:00 PM EST, [id number], 157, cm, 03/11/24 8:17:00 EST, Height, 78, kg, 03/11/24 8:17:00 EST, Dry Weight Start Date: 03/13/24 Status: Ordered Quantity: 90.0 Unit: tablet Repeat number: 2 atorvastatin 80 mg oral tablet 1 tablet, By Mouth, Daily, INSTR:REPLACES SIMVASTATIN, # 90 tablet, 1 Refills, Maintenance, 05/22/2411:07:00 PM EST, [facility], 157, cm, 05/06/23 14:23:00 EST, Height, 88.3, kg, 04/16/23 11:33:00 EST, Dry Weight Start Date: 05/22/23 Status: Ordered Quantity: 90.0 Unit: tablet Repeat number: 1 BD Single Use Swab 70% topical pad See Instructions, TO CLEANS BEFORE INJECTIONS 5 X A DAY., # 150 Unknown, 11 Refills, Maintenance, 08/16/22 10:15:00 AM EDT, [facility], [...] 10:46:00 AM EST, Route to Pharmacy Electronically, [id number], Partial fill upon patientrequest if the [...] 10:46:00 AM EST, Route to Pharmacy Electronically, [facility] [...] 3 Refills, Maintenance, 01/24/24 3:25:00 PM EDT, [id number], 30, APPLY [...] 5 Refills, Maintenance, 11/06/23 5:25:00 PM EDT, [id number], 1 tablet By Mouth Daily,Instr:SEPARATE FROM [...] 10:46:00 AM EDT, [facility] Pharmacy Electronically, [facility] 10:46:00 AM EST, Route to Pharmacy Electronically, [facility] [...] 4 Refills, Maintenance, 01/24/24 3:25:00 PM EDT, [id number], 30, APPLY [...] 5 Refills, Maintenance, 07/03/22 6:20:00 PM EDT, [id number], Duplicate Rx. Original sent 07/03/22 with routing error. Re- sending to pharmacy, 157.5, cm, 06/21/22 8:43:00 EDT, Height Start Date: 07/03/22 Status: Ordered Quantity: 60.0 Unit: capsule Repeat number: 6 esomeprazole 40 mg oral enteric coated capsule 1 capsule = 40 mg, By Mouth, Daily, # 90 capsule, 3 Refills, Maintenance, 09/25/23 4:33:00 PM EDT, [id number], Partial fill upon [...] 1 Refills, Maintenance, 09/02/23 4:20:00 PM EDT, [id number], Partial fill upon [...] 0 Refills, Maintenance, 11/06/23 5:54:00 PM EDT, [id number], 30, 1 puffs Inhalation 2 times a day, 157, cm, 10/18/23 11:52:00 EDT, Height, 84, kg,07/24/23 12:52:00 EDT, Dry Weight Start Date: 11/06/23 Status: Ordered Quantity: 60.0 Unit: each Repeat number: 1 fluticasone 50 mcg/inh nasal spray See Instructions, SPRAY 1 SPRAY INTO EACH NOSTRIL EVERY DAY, # 16 mL, 5 Refills, Maintenance, 11/06/23 5:54:00 PM EDT, [id number], 30, SPRAY 1 SPRAY INTO EACH [...] 4 Refills, Maintenance, 11/06/23 5:54:00 PM EDT, [id number], 157, cm, 10/18/23 11:52:00 EDT, Height, [...] Soft Stop, 02/07/24 10:47:00 AM EST, Tablet, [id number], Partial fill upon patient request if the [...] 11 Refills, Maintenance, 03/06/24 5:29:00 PM EST, [facility], 157, cm, 12/17/23 11:46:00 EDT, Height, 84, kg, 07/24/23 12:52:00 EDT, Dry Weight Start Date: 03/06/24 Status: Ordered Quantity: 15.0 Unit: mL Repeat number: 1 lactase 3000 u oral tablet See Instructions, TAKE 3 TABLET BY MOUTH 3 TIMES A DAY WITH MEALS,INSTR:X30 DAYS., # 120 tablet, 3 Refills, Maintenance, 03/13/24 1:52:00 PM EST, [facility], 157, cm, 03/11/24 8:17:00 EST, Height, 78, kg, 03/11/24 8:17:00 EST, Dry Weight Start Date: 03/13/24 Status: Ordered Quantity: 120.0 Unit: tablet Repeat number: 1 lactase 3000 u oral tablet 3 tablet, By Mouth, 3 times a day with meals, X30 DAYS., # 120 tablet, 3 Refills, Maintenance, 11/06/23 7:51:00 AM EDT, [id number], 157, cm, 10/18/23 11:52:00 EDT, Height, 84, kg, 07/24/23 12:52:00 EDT, Dry Weight Start Date: 11/06/23 Status: Ordered Quantity: 120.0 Unit: tablet Repeat number: 4 Lantus Solostar Pen 100 units/mL subcutaneous solution See Instructions, INJECT 45 UNITS SUBCUTANEOUSLY EVERY MORNING AND EVERY NIGHT AT BEDTIME, # 15 mL,11 Refills, Maintenance, 03/06/24 5:29:00 PM EST, [facility], 157, cm, 12/17/23 11:46:00 EDT, Height, 84, kg, 07/24/23 12:52:00 EDT, Dry Weight Start Date: 03/06/24 Status: Ordered Quantity: 15.0 Unit: mL Repeat number: 1 levothyroxine 0.088 mg oral tablet 1 tablet = 88 mcg, By Mouth, Daily, # 90 tablet, 3 Refills, Maintenance, 03/12/24 7:46:00 AM EST, [id number], Partial fill [...] 3 Refills, Maintenance, 03/13/24 1:53:00 PM EST, [id number], Du[facility] Rx. Original sent 07/03/22 [...] 11 Refills, Maintenance, 02/28/22 8:51:00 AM EST, [id number], 30, APPLY TO AFFECTED AREA 3 TIMES A DAY, 157.5, cm, 02/21/2214:36:00 EST, Height Start Date: 02/28/22 Status: Ordered Quantity: 35.44 Unit: g Repeat number: 12 losartan 50 mg oral tablet See Instructions, TAKE 1 TABLET BY MOUTH EVERY DAY, # 90 tablet, 1 Refills, Maintenance, 10/17/23 1:55:00 PM EDT, [id number], 157, cm, 10/12/23 11:14:00 EDT, Height, 84, kg, 07/24/23 12:52:00 EDT, Dry Weight Start Date: 10/17/23 Status: Ordered Quantity: 90.0 Unit: tablet Repeat number: 2 Lyrica 25 mg oral capsule See Instructions, 1 capsule By Mouth 1 time daily at bedtime. E11.9, # 30 each, 5 Refills, Maintenance, 03/13/24 3:47:00 PM EST, [facility]apsule, [id number], Partial fill upon patient request if [...] 4 Refills, Maintenance, 02/07/24 10:47:00AM EST, Tablet, [id number], Partial fill [...] 0 Refills, Maintenance, 09/30/23 10:01:00 AM EDT, [facility], 30, INSTILL 5 DROPS INTO BOTH EARS TWICE DAILY FOR 7DAYS, 157, cm, 09/25/23 16:26:00 EDT, Height, 84, kg, 07/24/23 12:52:00 EDT, Dry Weight Start Date: 09/30/23 Status: Ordered Quantity: 15.0 Unit: mL Repeat number: 1 Narcan 4 mg/0.1 mL nasal spray = 4 mg, Nares, Both, Once, # 2 each, 2 Refills, Soft Stop, 02/22/23 2:30:00 PM EST, [id number], Partial fill upon patient request if the prescription is for a schedule II opioid drug., 157.5,cm, 02/19/23 9:20:00 EST, Height Start Date: 02/22/23 Status: Ordered Quantity: 2.0 Unit: each Repeat number: 3 [place]-3 Fish Oil 1000 mg oral capsule 1 capsule = 1,000 mg, By Mouth, Daily, # 90 capsule, 1 Refills, Maintenance, 08/01/22 10:17:00 AM EDT, [id number], Partial fill upon [...] Maintenance, 06/14/22 4:40:00 PM EDT, EC Tablet, [id number], [...] Maintenance, 07/03/23 2:40:00 PM EDT, [facility], 157, cm, 06/24/23 14:54:00 EDT, Height, 88.3, kg, 04/16/23 11:33:00 EST, Dry Weight Start Date: 07/03/23 Stop Date: 07/13/23 Status: Ordered Quantity: 30.0 Unit: tablet Repeat number: 1 oxyCODONE 10 mg oral tablet TAKE 1/2 TAB EVERY 12 HOURS NEEDED FOR SEVERE NECK/LOW BACK PAIN. DO NOT FILL UNTIL 05/01/21 Start Date: 06/02/21 Status: Ordered Repeat number: 1 Pen [place], 31 G x 8 mm BD [...] 10:47:00 AM EST, Route to Pharmacy Electronically, [id number], Partial fill upon patient request if the prescription is for a schedule II opioid drug., 157, cm, 10/18/23 11:52:00 EDT, Height, 84, kg, 07/24/23 12:52:00 EDT, Dry Weight Start Date: 02/07/24 Stop Date: 07/06/24 Status: Ordered Quantity: 60.0 Unit: tablet Repeat number: 5 locomotive firer/fireman grabber tool locomotive firer/fireman grabber tool, See Instructions, # 1 each, Refills 0, Tot. Refills 0, Maintenance, please dispense one locomotive firer/fireman grabber tool, ICD 10 M54.6, length of [...] 10 Refills, Maintenance, 02/20/24 11:05:00 AM EST, [id number], 157, cm, 12/17/23 11:46:00 EDT, Height, 84, kg, 07/24/23 12:52:00 EDT, Dry Weight Start Date: 02/20/24 Stop Date: 01/15/25 Status: Ordered Quantity: 120.0 Unit: tablet Repeat number: 11 Trulicity Pen 4.5 mg/0.5 mL subcutaneous solution = 4.5 mg, Subcutaneous Infusion, Every week, # 2 mL, 11 Refills, Maintenance, 03/11/24 8:41:00 AM EST, [facility], Partial fill upon [...] Replace Required Details, Route to Pharmacy Electronically, [facility], 157, cm, 03/11/24 8:17:00 EST, Height, 78, kg, 03/11/24 8:17:00 EST, Dry Weight Start Date: 03/13/24 Status: Ordered Quantity: 6.0 Unit: tablet Repeat number: 1 valACYclovir 500 mg oral tablet See Instructions, TAKE 1 TABLET BY MOUTH 2 TIMES A DAY,X3 DAYS, NEEDED FOR OUTBREAKS, # 6 tablet, Refills 0, Maintenance, 11/06/23 7:49:00 AM EDT, Instructions Replace Required Details, Route to Pharmacy Electronically, [facility], 157, cm, 10/18/23 11:52:00 EDT, Height, 84, kg, 07/24/23 12:52:00 EDT, Dry Weight Start Date: 11/06/23 Status: Ordered Quantity: 6.0 Unit: tablet Repeat number: 1 valACYclovir 500 mg oral tablet 1, tablet, By Mouth, 2 times a day, PRN, # 6 tablet, Refills 0, Maintenance, NEEDED FOR OUTBREAKS, 10/09/23 10:57:00 AM EDT, Route to Pharmacy Electronically, [facility], 157, cm, 09/25/23 16:26:00 EDT, Height, 84, [...] 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 No wall motion abnormalities, Does [...] Team Personnel Name: Sergo Bazzi MD Position: [facility] Physician - Primary Care Member Role: PCP Address: [address] [place] [address] [place] [address]- Telecom: Name: Lizbeth Collins [place] Position: [facility] Office Staff Member Role: Primary Care Nurse Care Team Related Persons Name: LB HENLEY Name: LB HENLEY Name: MILENA CUBA Insurance Providers Guarantor name: MICHAEL HENLEY [facility] Plan Information #: 1 Payer: [facility] Member Number: NA Policy Number: NA Group Number: NA
--- OUTSIDE RECORDS SUMMARY | 2024-04-15 16:14 | XMS_ITS | Continuity of Care Document ---
Author Organization [facility] Address [address] [place] [address]- Care Team Providers Care Inspector Eyeglass Name Role Phone Rose Mary FISCHER, Sergo Cole Primary Care Physician [place] [facility] [place] 03/12/24 - 04/11/24 [facility] [address], [place] [address] Encounter Type: Triage Allergies, Adverse Reactions, Alerts Substance Criticality Severity Reaction Reaction Severity Status morphine ITCH DIARRHEA Active trazodone DEPRESSION Active cortisone Active Motrin eat lining of stomach Active Naprosyn gi upset Active CeleBREX gi upset Active Neurontin mental status changes Active Ultram nausea, vomit Active Vioxx heart problems Activ e Latex powder eats up skin Active Immunizations [...] Given 1Result Comment: [01/22/2017] [facility] [id number] 2Admin Note: vis given dated 10/24/12 3Admin [...] 1 Refills, Acute, 10/26/20 9:52:00 AM EDT, [id number], 157.48, cm, 10/11/20 9:39:00 EDT, Height Start [...] Quantity: 200.0 Unit: each Repeat number: 12 Onujt-Qrocbc-Tcwz 300 mg oral capsule 1 capsule, By Mouth, 2 times a day, NOT COVERED., # 60 capsule, 11 Refills, [facility], 157.48, cm, 01/27/21 9:30:00 EDT, Height Start Date: 01/30/21 Status: Ordered Quantity: 60.0 Unit: capsule Repeat number: 1 ammonium lactate 12% topical cream 1 application, Topically, 2 times a day, # 385 Gm, 1 Refills, Maintenance, 12/22/22 2:16:00 PM EDT, Cream, [facility]/pharmacy #[id number], Partial fill upon patient [...] Refills, Maintenance, 09/10/23 8:57:00 AM EDT, Solution, [facility]/pharmacy #[id number], Partial fill upon patient [...] tablet, 1 Refills,Maintenance, 03/13/24 1:51:00 PM EST, [facility]/pharmacy #[id number], 157, cm, 03/11/24 8:17:00 EST, Height, 78, kg, 03/11/24 8:17:00 EST, Dry Weight Start Date: 03/13/24 Status: Ordered Quantity: 90.0 Unit: tablet Repeat number: 2 atorvastatin 80 mg oral tablet 1 tablet, By Mouth, Daily, INSTR:REPLACES SIMVASTATIN, # 90 tablet, 1 Refills, Maintenance, 05/22/2411:07:00 PM EST, [id number], 157, cm, 05/06/23 14:23:00 EST, Height, 88.3, kg, 04/16/23 11:33:00 EST, Dry Weight Start Date: 05/22/23 Status: Ordered Quantity: 90.0 Unit: tablet Repeat number: 1 BD Single Use Swab 70% topical pad See Instructions, TO CLEANS BEFORE INJECTIONS 5 X A DAY., # 150 Unknown, 11 Refills, Maintenance, 08/16/22 10:15:00 AM EDT, [facility], 30, TO CLEANS BEFORE INJECTIONS 5 X A DAY., 157.5, cm, 08/01/22 9:27:00 EDT, Height Start Date: 08/16/22 Status: Ordered Quantity: 150.0 Unit: Unknown Repeat number: 1 busPIRone 5 mg oral tablet 5 mg, 1, tablet, By Mouth, 3 times a day, # 90 tablet, Refills 4, Tot. Refills 4, Maintenance, 02/07/24 10:46:00 AM EST, Route to Pharmacy Electronically, [facility]/pharmacy #[id number], Partial fill upon patientrequest if the [...] 10:46:00 AM EST, Route to Pharmacy Electronically, [facility]/pharmacy [...] 3 Refills, Maintenance, 01/24/24 3:25:00 PM EDT, [facility]/pharmacy #[id number], 30, APPLY TO AFFECTED [...] 5 Refills, Maintenance, 11/06/23 5:25:00 PM EDT, [facility]/pharmacy #[id number], 1 tablet By Mouth Daily,Instr:SEPARATE [...] 10:46:00 AM EDT, Route to Pharmacy Electronically, [facility]/pharmacy [...] 10:46:00 AM EST, [id number], Partial fill upon patient request if [...] 4 Refills, Maintenance, 01/24/24 3:25:00 PM EDT, [facility]/pharmacy #[id number], 30, APPLY TOPICALLY 4 TIMES [...] 5 Refills, Maintenance, 07/03/22 6:20:00 PM EDT, [facility]/pharmacy #[id number], Duplicate Rx. Original sent 07/03/22 with routing error. Re- sending to pharmacy, 157.5, cm, 06/21/22 8:43:00 EDT, Height Start Date: 07/03/22 Status: Ordered Quantity: 60.0 Unit: capsule Repeat number: 6 esomeprazole 40 mg oral enteric coated capsule 1 capsule = 40 mg, By Mouth, Daily, # 90 capsule, 3 Refills, Maintenance, 09/25/23 4:33:00 PM EDT, [facility]/pharmacy #[id number], Partial fill upon patient [...] 1 Refills, Maintenance, 09/02/23 4:20:00 PM EDT, [facility]/pharmacy #[id number], Partial fill upon patient [...] 0 Refills, Maintenance, 11/06/23 5:54:00 PM EDT, [facility]/pharmacy #[id number], 30, 1 puffs Inhalation 2 times a day, 157, cm, 10/18/23 11:52:00 EDT, Height, 84, kg,07/24/23 12:52:00 EDT, Dry Weight Start Date: 11/06/23 Status: Ordered Quantity: 60.0 Unit: each Repeat number: 1 fluticasone 50 mcg/inh nasal spray See Instructions, SPRAY 1 SPRAY INTO EACH NOSTRIL EVERY DAY, # 16 mL, 5 Refills, Maintenance, 11/06/23 5:54:00 PM EDT, [facility]/pharmacy #[id number], 30, SPRAY 1 SPRAY INTO [...] 1 FREESTYLE LANCETS MISC Miscellaneous FREESTYLE LANCETS MISC [...] 4 Refills, Maintenance, 11/06/23 5:54:00 PM EDT, [facility]/pharmacy #[id number], 157, cm, 10/18/23 11:52:00 EDT, [...] Soft Stop, 02/07/24 10:47:00 AM EST, Tablet, [facility]/pharmacy #[id number], Partial fill [...] 11 Refills, Maintenance, 03/06/24 5:29:00 PM EST, [facility], 157, cm, 12/17/23 11:46:00 EDT, Height, 84, kg, 07/24/23 12:52:00 EDT, Dry Weight Start Date: 03/06/24 Status: Ordered Quantity: 15.0 Unit: mL Repeat number: 1 lactase 3000 u oral tablet See Instructions, TAKE 3 TABLET BY MOUTH 3 TIMES A DAY WITH MEALS,INSTR:X30 DAYS., # 120 tablet, 3 Refills, Maintenance, 12/13/24 1:52:00 PM EST, [id number], 157, cm, 03/11/24 8:17:00 EST, Height, 78, kg, 03/11/24 8:17:00 EST, Dry Weight Start Date: 03/13/24 Status: Ordered Quantity: 120.0 Unit: tablet Repeat number: 1 lactase 3000 u oral tablet 3 tablet, By Mouth, 3 times a day with meals, X30 DAYS., # 120 tablet, 3 Refills, Maintenance, 11/06/23 7:51:00 AM EDT, [facility]/pharmacy #[id number], 157, cm, 10/18/23 11:52:00 EDT, Height, 84, kg, 07/24/23 12:52:00 EDT, Dry Weight Start Date: 11/06/23 Status: Ordered Quantity: 120.0 Unit: tablet Repeat number: 4 Lantus Solostar Pen 100 units/mL subcutaneous solution See Instructions, INJECT 45 UNITS SUBCUTANEOUSLY EVERY MORNING AND EVERY NIGHT AT BEDTIME, # 15 mL,11 Refills, Maintenance, 03/06/24 5:29:00 PM EST, [facility], 157, cm, 12/17/23 11:46:00 EDT, Height, 84, kg, 07/24/23 12:52:00 EDT, Dry Weight Start Date: 03/06/24 Status: Ordered Quantity: 15.0 Unit: mL Repeat number: 1 levothyroxine 0.088 mg oral tablet 1 tablet = 88 mcg, By Mouth, Daily, # 90 tablet, 3 Refills, Maintenance, 03/12/24 7:46:00 AM EST, [facility]/pharmacy #[id number], Partial fill upon patient [...] 3 Refills, Maintenance, 03/13/24 1:53:00 PM EST, [facility]/pharmacy #[id number], 30, Duplicate Rx. Original [...] 11 Refills, Maintenance, 02/28/22 8:51:00 AM EST, [facility]/pharmacy #[id number], 30, APPLY TO AFFECTED AREA 3 TIMES A DAY, 157.5, cm, 02/21/2214:36:00 EST, Height Start Date: 02/28/22 Status: Ordered Quantity: 35.44 Unit: g Repeat number: 12 losartan 50 mg oral tablet See Instructions, TAKE 1 TABLET BY MOUTH EVERY DAY, # 90 tablet, 1 Refills, Maintenance, 10/17/23 1:55:00 PM EDT, [facility]/pharmacy #[id number], 157, cm, 10/12/23 11:14:00 EDT, Height, 84, kg, 07/24/23 12:52:00 EDT, Dry Weight Start Date: 10/17/23 Status: Ordered Quantity: 90.0 Unit: tablet Repeat number: 2 Lyrica 25 mg oral capsule See Instructions, 1 capsule By Mouth 1 time daily at bedtime. E11.9, # 30 each, 5 Refills, Maintenance, 03/13/24 3:47:00 PM EST, Capsule, [facility]/pharmacy #[id number], Partial fill [...] 4 Refills, Maintenance, 02/07/24 10:47:00AM EST, Tablet, [facility]pharmacy #[id number], Partial fill [...] 0 Refills, Maintenance, 09/30/23 10:01:00 AM EDT, [facility], 30, INSTILL 5 DROPS INTO BOTH EARS TWICE DAILY FOR 7DAYS, 157, cm, 09/25/23 16:26:00 EDT, Height, 84, kg, 07/24/23 12:52:00 EDT, Dry Weight Start Date: 09/30/23 Status: Ordered Quantity: 15.0 Unit: mL Repeat number: 1 Narcan 4 mg/0.1 mL nasal spray = 4 mg, Nares, Both, Once, # 2 each, 2 Refills, Soft Stop, 02/22/23 2:30:00 PM EST, [facility]/pharmacy #[id number], Partial fill upon patient request if the prescription is for a schedule II opioid drug., 157.5,cm, 02/19/23 9:20:00 EST, Height Start Date: 02/22/23 Status: Ordered Quantity: 2.0 Unit: each Repeat number: 3 [place]-3 Fish Oil 1000 mg oral capsule 1 capsule = 1,000 mg, By Mouth, Daily, # 90 capsule, 1 Refills, Maintenance, 08/01/22 10:17:00 AM EDT, [facility]/pharmacy #[id number], Partial fill upon patient [...] Maintenance, 06/14/22 4:40:00 PM EDT, EC Tablet, [facility]/pharmacy #[id number], Partial [...] Maintenance, 07/03/23 2:40:00 PM EDT, [facility], 157, cm, 06/24/23 14:54:00 EDT, Height, 88.3, kg, 04/16/23 11:33:00 EST, Dry Weight Start Date: 07/03/23 Stop Date: 07/13/23 Status: Ordered Quantity: 30.0 Unit: tablet Repeat number: 1 oxyCODONE 10 mg oral tablet TAKE 1/2 TAB EVERY 12 HOURS NEEDED FOR SEVERE NECK/LOW BACK PAIN. DO NOT FILL UNTIL 05/01/21 Start Date: 06/02/21 Status: Ordered Repeat number: 1 Pen [place], 31 G x 8 mm BD Ultra [...] 10:47:00 AM EST, Route to Pharmacy Electronically, [facility]/pharmacy #[id number], Partial fill upon patient request if the prescription is for a schedule II opioid drug., 157, cm, 10/18/23 11:52:00 EDT, Height, 84, kg, 07/24/23 12:52:00 EDT, Dry Weight Start Date: 02/07/24 Stop Date: 07/06/24 Status: Ordered Quantity: 60.0 Unit: tablet Repeat number: 5 pulmonologist grabber tool pulmonologist grabber tool, See Instructions, # 1 each, Refills 0, Tot. Refills 0, Maintenance, please dispense one pulmonologist grabber tool, ICD 10 M54.6, length of [...] 10 Refills, Maintenance, 02/20/24 11:05:00 AM EST, [facility]/pharmacy #[id number], 157, cm, 12/17/23 11:46:00 EDT, Height, 84, kg, 07/24/23 12:52:00 EDT, Dry Weight Start Date: 02/20/24 Stop Date: 01/15/25 Status: Ordered Quantity: 120.0 Unit: tablet Repeat number: 11 Trulicity Pen 4.5 mg/0.5 mL subcutaneous solution = 4.5 mg, Subcutaneous Infusion, Every week, # 2 mL, 11 Refills, Maintenance, 03/11/24 8:41:00 AM EST, [facility], Partial fill upon patient request [...] Replace Required Details, Route to Pharmacy Electronically, [facility], 157, cm, 03/11/24 8:17:00 EST, Height, 78, kg, 03/11/24 8:17:00 EST, Dry Weight Start Date: 03/13/24 Status: Ordered Quantity: 6.0 Unit: tablet Repeat number: 1 valACYclovir 500 mg oral tablet See Instructions, TAKE 1 TABLET BY MOUTH 2 TIMES A DAY,X3 DAYS, NEEDED FOR OUTBREAKS, # 6 tablet, Refills 0, Maintenance, 11/06/23 7:49:00 AM EDT, Instructions Replace Required Details, Route to Pharmacy Electronically, [facility], 157, cm, 10/18/23 11:52:00 EDT, Height, 84, kg, 07/24/23 12:52:00 EDT, Dry Weight Start Date: 11/06/23 Status: Ordered Quantity: 6.0 Unit: tablet Repeat number: 1 valACYclovir 500 mg oral tablet 1, tablet, By Mouth, 2 times a day, PRN, # 6 tablet, Refills 0, Maintenance, NEEDED FOR OUTBREAKS, 10/09/23 10:57:00 AM EDT, Route to Pharmacy Electronically, [id number], 157, cm, 09/25/23 16:26:00 EDT, Height, 84, [...] 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 No wall motion abnormalities, Does [...] Name: Rose Mary FISCHER, Sergo Cole Position: [facility] Physician - Primary Care Member Role: PCP Address: [address] [place] [address] [place] [address]- [place] [employer]: Name: Lizbeth Collins [place] Position: [facility] Office Staff Member Role: Primary Care Nurse Care Team Related Persons Name: LB HENLEY Name: LB HENLEY Name: MILENA CUBA Insurance Providers Guarantor name: [facility] Information #: 1 Payer: [employer] Member Number: NA Policy Number: NA Group Number: NA
== END 2024-04-15 13:46 | disposition home or self-care (01) ==
LOC: HO.US 13:45
PROVIDERS: PCP Family Medicine; Visit Provider Nurse Practitioner Family
DX: N39.46 Mixed incontinence (principal)
CPT/HCPCS: 76775

== ENCOUNTER → 2024-04-15 13:47 | Outpatient (BNV) | payer OTHER, SELFPAY | PROVIDERS: PCP Family Medicine; Visit Provider Radiology Diagnostic Radiology | DX: R32 Unspecified urinary incontinence (principal) | CPT/HCPCS: 76775 ==

== ENCOUNTER 2024-04-30 11:24 | Outpatient (REF) | payer OTHER, SELFPAY ==
--- NOTE | ~2024-04-30 | US_ITS ---
EXAMINATION: US BLADDER HISTORY: MIXED INCONTINENCE COMPARISON: There are no prior studies for comparison. FINDINGS: Sonographic examination of the urinary bladder was performed before and after voiding. Before voiding, the urinary bladder measured 7.5 x 6.5 x 9.4, for an estimated volume of239 mL. After voiding, the urinary bladder measured1.1 x 1.9 x 2.0, for an estimated volume of 3 mL. No intrinsic bladder abnormality is identified. Bilateral ureteral jets are identified. US/US bladder IMPRESSION: Post void bladder residual of 3 mL. No intrinsic bladder abnormality is identified. Electronically signed by: Brad Carpenter MD 04/30/2024 11:44 AM [facility]
--- OUTSIDE RECORDS SUMMARY | 2024-04-30 15:19 | XMS_ITS | Clinical Summary ---
Author Organization [facility] Address [address] [place] [address] Care Team Providers Care Home Office Claims Examiner Name Role Phone Sergo Bazzi MD Primary Care Provider [phone] Social History Tobacco Use Types Packs/Day Years Used Date Smoking Tobacco: Never Assessed Sex and Gender Information Value Date Recorded Sex Assigned at Not on file Gender Identity Not on file Sexual Orientation Not on file Obstetrics History Plan of Treatment Health Maintenance Due Date Last Done Comments Breast Cancer Screening 1961 DTaP,Tdap,and Td Vaccines (1 - Tdap) 1980 Cervical Cancer Screening: P ap Smear 1982 Zoster Vaccines (1 of 2) 2011 COVID-19 Vaccine ( - 2023-2 5 season) 2023 Influenza Vaccine (#1) 2023 Colorectal Cancer Screening: Colonoscopy 01/13/2024 Depression Screening 01/13/2024 HIV Screening 01/13/2024 Hepatitis C Screening 01/13/2024 Social Influencers of Health Screening 01/13/2024 RSV Immunization Patients 60 + Years Old (1 - 1-dose 75+ series) 2036 HIB Vaccines Aged Out No longer eligi ble based on patient's age to complete this topic HPV Vaccines Aged Out No longer eligi ble based on patient's age to complete this topic Hepatitis A Vaccines Aged Out No long er eligible based on patient's age to complete this topic Hepatitis B Vaccines Aged Out No long er eligible based on patient's age to complete this topic IPV Vaccines Aged Out No longer eligi ble based on patient's age to complete this topic MMR Vaccines Aged Out No longer eligi ble based on patient's age to complete this topic Meningococcal ACWY Vaccine Aged Out N o longer eligible based on patient's age to complete this topic Pneumococcal Vaccine: Pediat rics (0 to 5 Years) and At-Risk Patients (6 to 64 Years) Aged Out No longer eligible b ased on patient's age to complete this topic RSV Immunization Patients Un gregory 20 months Aged Out No longer eligible b ased on patient's age to complete this topic Varicella Vaccines Aged Out No longer eligible based on patient's age to complete this topic Care Teams Home Office Claims Examiner Relationship Specialty Start Date End Date Sergo Bazzi MD [address] [place] [phone] PCP - General 11/12/23
--- OUTSIDE RECORDS SUMMARY | 2024-04-30 15:19 | XMS_ITS | Continuity of Care Document ---
Author Organization [facility] Address [address] [place] [address]- Care Team Providers Care Variety Performer Name Role Phone Sergo Bazzi MD Primary Care Physician [place] [facility] [place]): [place]/19/24 [facility] [address] [place], [place] [phone] Encounter Type: Triage Allergies, Adverse Reactions, Alerts Substance Criticality Severity Reaction Reaction Severity Status morphine ITCH DIARRHEA Active cortisone Active Latex powder eats up skin Active trazodone DEPRESSION Active Motrin eat lining of stomach Active Naprosyn gi upset Active CeleBREX gi upset Active Neurontin mental status changes Active Ultram nausea, vomit Active Vioxx heart problems Activ e Immunizations [...] 01/21/08 Given 1Result Comment: [01/22/2017] [facility] [id number] 2Admin Note: vis given dated 10/24/12 3Admin [...] 1 Refills, Acute, 10/26/20 9:52:00 AM EDT, [id number], 157.48, cm, 10/11/20 9:39:00 EDT, Height Start [...] Quantity: 200.0 Unit: each Repeat number: 12 Drqyz-Ycpryt-Ngab 300 mg oral capsule 1 capsule, By Mouth, 2 times a day, NOT COVERED., # 60 capsule, 11 Refills, [id number], 157.48, cm, 01/27/21 9:30:00 EDT, Height Start Date: 01/30/21 Status: Ordered Quantity: 60.0 Unit: capsule Repeat number: 1 ammonium lactate 12% topical cream 1 application, Topically, 2 times a day, # 385 Gm, 1 Refills, Maintenance, 12/22/22 2:16:00 PM EDT, Cream, [facility]/pharmacy #[id number], Partial fill upon [...] Refills, Maintenance, 09/10/23 8:57:00 AM EDT, Solution, [facility]/pharmacy #[id number], Partial fill upon [...] tablet, 1 Refills,Maintenance, 03/13/24 1:51:00 PM EST, [facility]/pharmacy #[id number], 157, cm, 03/11/24 8:17:00 EST, Height, 78, kg, 03/11/24 8:17:00 EST, Dry Weight Start Date: 03/13/24 Status: Ordered Quantity: 90.0 Unit: tablet Repeat number: 2 atorvastatin 80 mg oral tablet 1 tablet, By Mouth, Daily, INSTR:REPLACES SIMVASTATIN, # 90 tablet, 1 Refills, Maintenance, 05/22/2411:07:00 PM EST, [facility] ST[id number], 157, cm, 05/06/23 14:23:00 EST, Height, 88.3, kg, 04/16/23 11:33:00 EST, Dry Weight Start Date: 05/22/23 Status: Ordered Quantity: 90.0 Unit: tablet Repeat number: 1 BD Single Use Swab 70% topical pad See Instructions, TO CLEANS BEFORE INJECTIONS 5 X A DAY., # 150 Unknown, 11 Refills, Maintenance, 08/16/22 10:15:00 AM EDT, [facility], 30, TO CLEANS BEFORE INJECTIONS 5 X A DAY., 157.5, cm, 08/01/22 9:27:00 EDT, Height Start Date: 08/16/22 Status: Ordered Quantity: 150.0 Unit: Unknown Repeat number: 1 busPIRone 5 mg oral tablet 5 mg, 1, tablet, By Mouth, 3 times a day, # 90 tablet, Refills 4, Tot. Refills 4, Maintenance, 02/07/24 10:46:00 AM EST, Route to Pharmacy Electronically, [facility]/pharmacy #[id number], Partial fill upon patientrequest if the [...] 10:46:00 AM EST, Route to Pharmacy Electronically, [facility]/pharmacy #[id number], Partial fill upon [...] 3 Refills, Maintenance, 01/24/24 3:25:00 PM EDT, [facility]/pharmacy #[id number], 30, APPLY TO [...] 5 Refills, Maintenance, 11/06/23 5:25:00 PM EDT, [facility]/pharmacy #[id number], 1 tablet By [...] 10:46:00 AM EDT, Route to Pharmacy Electronically, [facility]/pharmacy #[id number], Partial fill upon [...] 10:46:00 AM EST, Route to Pharmacy Electronically, [facility]/pharmacy #[id number], Partial fill upon [...] 4 Refills, Maintenance, 01/24/24 3:25:00 PM EDT, [facility]/pharmacy #[id number], 30, APPLY TOPICALLY [...] 5 Refills, Maintenance, 07/03/22 6:20:00 PM EDT, [facility]/pharmacy #[id number], Duplicate Rx. Original sent 07/03/22 with routing error. Re- sending to pharmacy, 157.5, cm, 06/21/22 8:43:00 EDT, Height Start Date: 07/03/22 Status: Ordered Quantity: 60.0 Unit: capsule Repeat number: 6 esomeprazole 40 mg oral enteric coated capsule 1 capsule = 40 mg, By Mouth, Daily, # 90 capsule, 3 Refills, Maintenance, 09/25/23 4:33:00 PM EDT, [facility]/pharmacy #[id number], Partial fill upon [...] 1 Refills, Maintenance, 09/02/23 4:20:00 PM EDT, [facility]/pharmacy #[id number], Partial fill upon [...] 0 Refills, Maintenance, 11/06/23 5:54:00 PM EDT, [facility]/pharmacy #[id number], 30, 1 puffs Inhalation 2 times a day, 157, cm, 10/18/23 11:52:00 EDT, Height, 84, kg,07/24/23 12:52:00 EDT, Dry Weight Start Date: 11/06/23 Status: Ordered Quantity: 60.0 Unit: each Repeat number: 1 fluticasone 50 mcg/inh nasal spray See Instructions, SPRAY 1 SPRAY INTO EACH NOSTRIL EVERY DAY, # 16 mL, 5 Refills, Maintenance, 11/06/23 5:54:00 PM EDT, [facility]/pharmacy #[id number], 30, SPRAY 1 [...] 4 Refills, Maintenance, 11/06/23 5:54:00 PM EDT, [facility]/pharmacy #[id number], 157, cm, 10/18/23 [...] Soft Stop, 02/07/24 10:47:00 AM EST, Tablet, [facility]/pharmacy #[id number], Partial fill upon patient request if the [...] 11 Refills, Maintenance, 03/06/24 5:29:00 PM EST, [facility], 157, cm, 12/17/23 11:46:00 EDT, Height, 84, kg, 07/24/23 12:52:00 EDT, Dry Weight Start Date: 03/06/24 Status: Ordered Quantity: 15.0 Unit: mL Repeat number: 1 lactase 3000 u oral tablet See Instructions, TAKE 3 TABLET BY MOUTH 3 TIMES A DAY WITH MEALS,INSTR:X30 DAYS., # 120 tablet, 3 Refills, Maintenance, 03/13/24 1:52:00 PM EST, [facility] ST[id number], 157, cm, 03/11/24 8:17:00 EST, Height, 78, kg, 03/11/24 8:17:00 EST, Dry Weight Start Date: 03/13/24 Status: Ordered Quantity: 120.0 Unit: tablet Repeat number: 1 lactase 3000 u oral tablet 3 tablet, By Mouth, 3 times a day with meals, X30 DAYS., # 120 tablet, 3 Refills, Maintenance, 11/06/23 7:51:00 AM EDT, [facility]/pharmacy #[id number], 157, cm, 10/18/23 11:52:00 EDT, Height, 84, kg, 07/24/23 12:52:00 EDT, Dry Weight Start Date: 11/06/23 Status: Ordered Quantity: 120.0 Unit: tablet Repeat number: 4 Lantus Solostar Pen 100 units/mL subcutaneous solution See Instructions, INJECT 45 UNITS SUBCUTANEOUSLY EVERY MORNING AND EVERY NIGHT AT BEDTIME, # 15 mL,11 Refills, Maintenance, 03/06/24 5:29:00 PM EST, [facility], 157, cm, 12/17/23 11:46:00 EDT, Height, 84, kg, 07/24/23 12:52:00 EDT, Dry Weight Start Date: 03/06/24 Status: Ordered Quantity: 15.0 Unit: mL Repeat number: 1 levothyroxine 0.088 mg oral tablet 1 tablet = 88 mcg, By Mouth, Daily, # 90 tablet, 3 Refills, Maintenance, 03/12/24 7:46:00 AM EST, [facility]/pharmacy #[id number], Partial fill upon [...] 3 Refills, Maintenance, 03/13/24 1:53:00 PM EST, [id number], Du[facility]. Original sent 07/03/22 [...] 11 Refills, Maintenance, 02/28/22 8:51:00 AM EST, [facility]/pharmacy #[id number], 30, APPLY TO AFFECTED AREA 3 TIMES A DAY, 157.5, cm, 02/21/2214:36:00 EST, Height Start Date: 02/28/22 Status: Ordered Quantity: 35.44 Unit: g Repeat number: 12 losartan 50 mg oral tablet See Instructions, TAKE 1 TABLET BY MOUTH EVERY DAY, # 90 tablet, 1 Refills, Maintenance, 10/17/23 1:55:00 PM EDT, [facility]/pharmacy #[id number], 157, cm, 10/12/23 11:14:00 EDT, Height, 84, kg, 07/24/23 12:52:00 EDT, Dry Weight Start Date: 10/17/23 Status: Ordered Quantity: 90.0 Unit: tablet Repeat number: 2 Lyrica 25 mg oral capsule See Instructions, 1 capsule By Mouth 1 time daily at bedtime. E11.9, # 30 each, 5 Refills, Maintenance, 03/13/24 3:47:00 PM EST, Capsule, [id number], Partial fill upon patient request if [...] 4 Refills, Maintenance, 02/07/24 10:47:00AM EST, Tablet, [facility]/pharmacy #[id number], Partial fill upon [...] 0 Refills, Maintenance, 09/30/23 10:01:00 AM EDT, [facility] [id number], 30, INSTILL 5 DROPS INTO BOTH EARS TWICE DAILY FOR 7DAYS, 157, cm, 09/25/23 16:26:00 EDT, Height, 84, kg, 07/24/23 12:52:00 EDT, Dry Weight Start Date: 09/30/23 Status: Ordered Quantity: 15.0 Unit: mL Repeat number: 1 Narcan 4 mg/0.1 mL nasal spray = 4 mg, Nares, Both, Once, # 2 each, 2 Refills, Soft Stop, 02/22/23 2:30:00 PM EST, [facility]/pharmacy #[id number], Partial fill upon patient request if the prescription is for a schedule II opioid drug., 157.5,cm, 02/19/23 9:20:00 EST, Height Start Date: 02/22/23 Status: Ordered Quantity: 2.0 Unit: each Repeat number: 3 [place]-3 Fish Oil 1000 mg oral capsule 1 capsule = 1,000 mg, By Mouth, Daily, # 90 capsule, 1 Refills, Maintenance, 08/01/22 10:17:00 AM EDT, [facility]/pharmacy #[id number], Partial fill upon [...] Maintenance, 06/14/22 4:40:00 PM EDT, EC Tablet, [facility]/pharmacy #[id number], Partial fill upon [...] Maintenance, 07/03/23 2:40:00 PM EDT, [facility], 157, cm, 06/24/23 14:54:00 EDT, Height, 88.3, kg, 04/16/23 11:33:00 EST, Dry Weight Start Date: 07/03/23 Stop Date: 07/13/23 Status: Ordered Quantity: 30.0 Unit: tablet Repeat number: 1 oxyCODONE 10 mg oral tablet TAKE 1/2 TAB EVERY 12 HOURS NEEDED FOR SEVERE NECK/LOW BACK PAIN. DO NOT FILL UNTIL 05/01/21 Start Date: 06/02/21 Status: Ordered Repeat number: 1 Pen [place], 31 G x 8 mm BD Ultra [...] 10:47:00 AM EST, Route to Pharmacy Electronically, [facility]/pharmacy #[id number], Partial fill upon patient request if the prescription is for a schedule II opioid drug., 157, cm, 10/18/23 11:52:00 EDT, Height, 84, kg, 07/24/23 12:52:00 EDT, Dry Weight Start Date: 02/07/24 Stop Date: 07/06/24 Status: Ordered Quantity: 60.0 Unit: tablet Repeat number: 5 printing sales representative grabber tool printing sales representative grabber tool, See Instructions, # 1 each, Refills 0, Tot. Refills 0, Maintenance, please dispense one printing sales representative grabber tool, ICD 10 M54.6, length of [...] 10 Refills, Maintenance, 02/20/24 11:05:00 AM EST, [facility]/pharmacy #[id number], 157, cm, 12/17/23 11:46:00 EDT, Height, 84, kg, 07/24/23 12:52:00 EDT, Dry Weight Start Date: 02/20/24 Stop Date: 01/15/25 Status: Ordered Quantity: 120.0 Unit: tablet Repeat number: 11 Trulicity Pen 4.5 mg/0.5 mL subcutaneous solution = 4.5 mg, Subcutaneous Infusion, Every week, # 2 mL, 11 Refills, Maintenance, 03/11/24 8:41:00 AM EST, [facility], Partial fill upon patient [...] Replace Required Details, Route to Pharmacy Electronically, [facility] [id number], 157, cm, 03/11/24 8:17:00 EST, Height, 78, kg, 03/11/24 8:17:00 EST, Dry Weight Start Date: 03/13/24 Status: Ordered Quantity: 6.0 Unit: tablet Repeat number: 1 valACYclovir 500 mg oral tablet See Instructions, TAKE 1 TABLET BY MOUTH 2 TIMES A DAY,X3 DAYS, NEEDED FOR OUTBREAKS, # 6 tablet, Refills 0, Maintenance, 11/06/23 7:49:00 AM EDT, Instructions Replace Required Details, Route to Pharmacy Electronically, [facility], 157, cm, 10/18/23 11:52:00 EDT, Height, 84, kg, 07/24/23 12:52:00 EDT, Dry Weight Start Date: 11/06/23 Status: Ordered Quantity: 6.0 Unit: tablet Repeat number: 1 valACYclovir 500 mg oral tablet 1, tablet, By Mouth, 2 times a day, PRN, # 6 tablet, Refills 0, Maintenance, NEEDED FOR OUTBREAKS, 10/09/23 10:57:00 AM EDT, Route to Pharmacy Electronically, [facility] [address], 157, cm, 09/25/23 16:26:00 EDT, Height, 84, [...] 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 No wall motion abnormalities, Does [...] - Primary Care Member Role: PCP Address: [address] [place] [address] [place] [address]- Telecom: Name: Lizbeth Collins [place] Position: [facility] Office Staff Member Role: Primary Care Nurse Care Team Related Persons Name: LB HENLEY Name: LB HENLEY Name: MILENA CUBA Insurance Providers Guarantor name: MICHAEL HENLEY [facility] Information #: 1 Payer: [employer] Member Number: NA Policy Number: NA Group Number: NA
--- OUTSIDE RECORDS SUMMARY | 2024-04-30 15:19 | XMS_ITS | Continuity of Care Document ---
Author Organization [facility] Address [address] [place] [address]- Care Team Providers Care Inside Sales Consultant Name Role Phone Rose Mary FISCHER, Sergo Cole Primary Care Physician [phone] Encounter [facility] Date(s): 03/20/24 - 04/19/24 [facility] [address] [place], [place] [phone] Attending Physician: AdmBroderick enriquez Admitting Physician: AdmBroderick enriquez Referring Physician: AdmBroderick enriquez Encounter Type: Triage Allergies, Adverse Reactions, Alerts Substance Criticality Severity Reaction Reaction Severity Status morphine ITCH DIARRHEA Active trazodone DEPRESSION Active Naprosyn gi upset Active Latex powder eats up skin Active CeleBREX gi upset Active Vioxx heart problems Activ e cortisone Active Motrin eat lining of stomach Active Neurontin mental status changes Active Ultram [...] 1Result Comment: [01/22/2017] [facility] [id number] 2Admin Note: vis given dated 10/24/12 3Admin [...] 1 Refills, Acute, 10/26/20 9:52:00 AM EDT, [id number], 157.48, cm, 10/11/20 9:39:00 EDT, Height Start [...] Quantity: 200.0 Unit: each Repeat number: 12 Jzgah-Partir-Oqpt 300 mg oral capsule 1 capsule, By Mouth, 2 times a day, NOT COVERED., # 60 capsule, 11 Refills, [facility] ST[facility] [id number], 157.48, cm, 01/27/21 9:30:00 EDT, Height Start Date: 01/30/21 Status: Ordered Quantity: 60.0 Unit: capsule Repeat number: 1 ammonium lactate 12% topical cream 1 application, Topically, 2 times a day, # 385 Gm, 1 Refills, Maintenance, 12/22/22 2:16:00 PM EDT, Cream, [facility] [...] Refills, Maintenance, 09/10/23 8:57:00 AM EDT, Solution, [facility]/pharmacy #[id number], [...] tablet, 1 Refills,Maintenance, 03/13/24 1:51:00 PM EST, [facility]/pharmacy #[id number], 157, cm, 03/11/24 8:17:00 EST, Height, 78, kg, 03/11/24 8:17:00 EST, Dry Weight Start Date: 03/13/24 Status: Ordered Quantity: 90.0 Unit: tablet Repeat number: 2 atorvastatin 80 mg oral tablet 1 tablet, By Mouth, Daily, INSTR:REPLACES SIMVASTATIN, # 90 tablet, 1 Refills, Maintenance, 05/22/2411:07:00 PM EST, [facility] STORE [address], 157, cm, 05/06/23 14:23:00 EST, Height, 88.3, kg, 04/16/23 11:33:00 EST, Dry Weight Start Date: 05/22/23 Status: Ordered Quantity: 90.0 Unit: tablet Repeat number: 1 BD Single Use Swab 70% topical pad See Instructions, TO CLEANS BEFORE INJECTIONS 5 X A DAY., # 150 Unknown, 11 Refills, Maintenance, 08/16/22 10:15:00 AM EDT, [facility], 30, TO CLEANS BEFORE INJECTIONS 5 X A DAY., 157.5, cm, 08/01/22 9:27:00 EDT, Height Start Date: 08/16/22 Status: Ordered Quantity: 150.0 Unit: Unknown Repeat number: 1 busPIRone 5 mg oral tablet 5 mg, 1, tablet, By Mouth, 3 times a day, # 90 tablet, Refills 4, Tot. Refills 4, Maintenance, 02/07/24 10:46:00 AM EST, [facility] 10:46:00 AM EST, [facility] 3 Refills, Maintenance, 01/24/24 3:25:00 PM EDT, [facility]/pharmacy [...] 5 Refills, Maintenance, 11/06/23 5:25:00 PM EDT, [facility]/pharmacy #[id number], 1 tablet By [...] 10:46:00 AM EDT, [facility] Pharm[facility], [facility] 10:46:00 AM EST, [facility], [facility] 4 Refills, Maintenance, 01/24/24 3:25:00 PM EDT, [facility]/pharmacy [...] 5 Refills, Maintenance, 07/03/22 6:20:00 PM EDT, [facility]/pharmacy #[id number], Duplicate Rx. Original sent 07/03/22 with routing error. Re- sending to pharmacy, 157.5, cm, 06/21/22 8:43:00 EDT, Height Start Date: 07/03/22 Status: Ordered Quantity: 60.0 Unit: capsule Repeat number: 6 esomeprazole 40 mg oral enteric coated capsule 1 capsule = 40 mg, By Mouth, Daily, # 90 capsule, 3 Refills, Maintenance, 09/25/23 4:33:00 PM EDT, [facility]/pharmacy [...] 1 Refills, Maintenance, 09/02/23 4:20:00 PM EDT, [facility]/pharmacy [...] 0 Refills, Maintenance, 11/06/23 5:54:00 PM EDT, [id number], 30, 1 puffs Inhalation 2 times a day, 157, cm, 10/18/23 11:52:00 EDT, Height, 84, kg,07/24/23 12:52:00 EDT, Dry Weight Start Date: 11/06/23 Status: Ordered Quantity: 60.0 Unit: each Repeat number: 1 fluticasone 50 mcg/inh nasal spray See Instructions, SPRAY 1 SPRAY INTO EACH NOSTRIL EVERY DAY, # 16 mL, 5 Refills, Maintenance, 11/06/23 5:54:00 PM EDT, [facility]/pharmacy #[id number], 30, SPRAY 1 [...] 4 Refills, Maintenance, 11/06/23 5:54:00 PM EDT, [facility]/pharmacy #[id number], 157, cm, 10/18/23 [...] Soft Stop, 02/07/24 10:47:00 AM EST, Tablet, [facility]/pharmacy #[id number], Partial fill upon patient request if [...] 11 Refills, Maintenance, 03/06/24 5:29:00 PM EST, [facility], 157, cm, 12/17/23 11:46:00 EDT, Height, 84, kg, 07/24/23 12:52:00 EDT, Dry Weight Start Date: 03/06/24 Status: Ordered Quantity: 15.0 Unit: mL Repeat number: 1 lactase 3000 u oral tablet See Instructions, TAKE 3 TABLET BY MOUTH 3 TIMES A DAY WITH MEALS,INSTR:X30 DAYS., # 120 tablet, 3 Refills, Maintenance, 03/13/24 1:52:00 PM EST, [facility] STORE [address], 157, cm, 03/11/24 8:17:00 EST, Height, 78, kg, 03/11/24 8:17:00 EST, Dry Weight Start Date: 03/13/24 Status: Ordered Quantity: 120.0 Unit: tablet Repeat number: 1 lactase 3000 u oral tablet 3 tablet, By Mouth, 3 times a day with meals, X30 DAYS., # 120 tablet, 3 Refills, Maintenance, 11/06/23 7:51:00 AM EDT, [facility]/pharmacy #[id number], 157, cm, 10/18/23 11:52:00 EDT, Height, 84, kg, 07/24/23 12:52:00 EDT, Dry Weight Start Date: 11/06/23 Status: Ordered Quantity: 120.0 Unit: tablet Repeat number: 4 Lantus Solostar Pen 100 units/mL subcutaneous solution See Instructions, INJECT 45 UNITS SUBCUTANEOUSLY EVERY MORNING AND EVERY NIGHT AT BEDTIME, # 15 mL,11 Refills, Maintenance, 03/06/24 5:29:00 PM EST, [facility], 157, cm, 12/17/23 11:46:00 EDT, Height, 84, kg, 07/24/23 12:52:00 EDT, Dry Weight Start Date: 03/06/24 Status: Ordered Quantity: 15.0 Unit: mL Repeat number: 1 levothyroxine 0.088 mg oral tablet 1 tablet = 88 mcg, By Mouth, Daily, # 90 tablet, 3 Refills, Maintenance, 03/12/24 7:46:00 AM EST, [facility]/pharmacy [...] 3 Refills, Maintenance, 03/13/24 1:53:00 PM EST, [facility]/pharmacy [...] 11 Refills, Maintenance, 02/28/22 8:51:00 AM EST, [facility]/pharmacy #[id number], 30, APPLY TO AFFECTED AREA 3 TIMES A DAY, 157.5, cm, 02/21/2214:36:00 EST, Height Start Date: 02/28/22 Status: Ordered Quantity: 35.44 Unit: g Repeat number: 12 losartan 50 mg oral tablet See Instructions, TAKE 1 TABLET BY MOUTH EVERY DAY, # 90 tablet, 1 Refills, Maintenance, 10/17/23 1:55:00 PM EDT, [facility]/pharmacy #[id number], 157, cm, 10/12/23 11:14:00 EDT, Height, 84, kg, 07/24/23 12:52:00 EDT, Dry Weight Start Date: 10/17/23 Status: Ordered Quantity: 90.0 Unit: tablet Repeat number: 2 Lyrica 25 mg oral capsule See Instructions, 1 capsule By Mouth 1 time daily at bedtime. E11.9, # 30 each, 5 Refills, Maintenance, 03/13/24 3:47:00 PM EST, Capsule, [facility] [...] 4 Refills, Maintenance, 02/07/24 10:47:00AM EST, Tablet, [facility] [...] 0 Refills, Maintenance, 09/30/23 10:01:00 AM EDT, [facility] STORE [id number], 30, INSTILL 5 DROPS INTO BOTH EARS TWICE DAILY FOR 7DAYS, 157, cm, 09/25/23 16:26:00 EDT, Height, 84, kg, 07/24/23 12:52:00 EDT, Dry Weight Start Date: 09/30/23 Status: Ordered Quantity: 15.0 Unit: mL Repeat number: 1 Narcan 4 mg/0.1 mL nasal spray = 4 mg, Nares, Both, Once, # 2 each, 2 Refills, Soft Stop, 02/22/23 2:30:00 PM EST, [facility]/pharmacy #[id number], Partial fill upon patient request if the prescription is for a schedule II opioid drug., 157.5,cm, 02/19/23 9:20:00 EST, Height Start Date: 02/22/23 Status: Ordered Quantity: 2.0 Unit: each Repeat number: 3 Trilla-3 Fish Oil 1000 mg oral capsule 1 capsule = 1,000 mg, By Mouth, Daily, # 90 capsule, 1 Refills, Maintenance, 08/01/22 10:17:00 AM EDT, [facility]/pharmacy [...] Maintenance, 06/14/22 4:40:00 PM EDT, EC Tablet, [facility] [...] Maintenance, 07/03/23 2:40:00 PM EDT, [id number], 157, cm, 06/24/23 14:54:00 EDT, Height, 88.3, kg, 04/16/23 11:33:00 EST, Dry Weight Start Date: 07/03/23 Stop Date: 07/13/23 Status: Ordered Quantity: 30.0 Unit: tablet Repeat number: 1 oxyCODONE 10 mg oral tablet TAKE 1/2 TAB EVERY 12 HOURS NEEDED FOR SEVERE NECK/LOW BACK PAIN. DO NOT FILL UNTIL 05/01/21 Start Date: 06/02/21 Status: Ordered Repeat number: 1 Pen [place], 31 G x 8 mm BD Ultra [...] 10:47:00 AM EST, Route to Pharmacy Electronically, [facility]/pharmacy #[id number], Partial fill upon patient request if the prescription is for a schedule II opioid drug., 157, cm, 10/18/23 11:52:00 EDT, Height, 84, kg, 07/24/23 12:52:00 EDT, Dry Weight Start Date: 02/07/24 Stop Date: 07/06/24 Status: Ordered Quantity: 60.0 Unit: tablet Repeat number: 5 construction cost estimator grabber tool construction cost estimator grabber tool, See Instructions, # 1 each, Refills 0, Tot. Refills 0, Maintenance, please dispense one construction cost estimator grabber tool, ICD 10 M54.6, length of [...] 10 Refills, Maintenance, 02/20/24 11:05:00 AM EST, [facility]/pharmacy #[id number], 157, cm, 12/17/23 11:46:00 EDT, Height, 84, kg, 07/24/23 12:52:00 EDT, Dry Weight Start Date: 02/20/24 Stop Date: 01/15/25 Status: Ordered Quantity: 120.0 Unit: tablet Repeat number: 11 Trulicity Pen 4.5 mg/0.5 mL subcutaneous solution = 4.5 mg, Subcutaneous Infusion, Every week, # 2 mL, 11 Refills, Maintenance, 03/11/24 8:41:00 AM EST, [facility], Partial [...] Pharmacy Electronically, [facility] [id number], 157, cm, 03/11/24 8:17:00 EST, Height, 78, [...] Pharmacy Electronically, [facility] ST[id number], 157, cm, 10/18/23 11:52:00 EDT, Height, 84, kg, 07/24/23 12:52:00 EDT, Dry Weight Start Date: 11/06/23 Status: Ordered Quantity: 6.0 Unit: tablet Repeat number: 1 valACYclovir 500 mg oral tablet 1, tablet, By Mouth, 2 times a day, PRN, # 6 tablet, Refills 0, Maintenance, NEEDED FOR OUTBREAKS, 10/09/23 10:57:00 AM EDT, Route to Pharmacy Electronically, [facility] STORE [id number], 157, cm, 09/25/23 16:26:00 EDT, Height, 84, kg, 07/24/23 12:52:00 EDT, Dry Weight Start Date: 10/09/23 Status: Ordered Quantity: 6.0 Unit: tablet Repeat number: 1 Vascepa 1 g oral capsule 2 capsule = 2 Gm, By Mouth, 2 times a day, # 360 capsule, 5 Refills, Maintenance, 05/03/20 3:59:00 PMEST, Capsule, [facility]/pharmacy #[id number], 157.48, cm, 03/04/20 14:14:00 EST, Height Start Date: 05/03/20 Status: Ordered Quantity: 360.0 Unit: capsule Repeat number: 6 Ventolin HFA 108 mcg/inh inhalation aerosol with adapter 1 puffs, Inhalation, 4 times a day, PRN NEEDED FOR WHEEZING, # 18 each, 5 Refills, Maintenance, 03/01/24 12:44:00 PM EST, [facility]/pharmacy #[id number], 157, cm, 12/17/23 [...] 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 No wall motion abnormalities, Does [...] 11/10/13 Sex Female Sex Representation Female (finding) Hospital Progress note * Bennett Kellogg MD: VERIFY, PERFORM, MODIFY, SIGN Event Display: Progress Note Hospital Authored Date: Patient: MICHAEL HENLEY Age: 51 years Sex: [...] Renal, Non Authored Date: * Event Display: Ultrasound Renal, Non Authored Date: * Event Display: Ultrasound Renal, Non Authored Date: * Event Display: CT Scan Abdomen, Non- Authored Date: * Event Display: CT Scan Abdomen, Non- Authored Date: Patient Care team information Care Team Personnel Name: Sergo Bazzi MD Position: S Physician - Primary Care Member Role: PCP Address: [address] [place] [address], [place] [address]- [place] Telecom: Name: Lizbeth Collins [place] Position: [facility] Office Staff Member Role: Primary Care Nurse Care Team Related Persons Name: LB HENLEY Name: LB HENLEY Name: MILENA CUBA Insurance Providers Guarantor name: MICHAEL KALE [facility] Information #: 1 [facility] Member Number: NA Policy Number: NA Group Number: [id number]
== END 2024-04-30 11:25 | disposition home or self-care (01) ==
LOC: HO.HMGCX 11:24
PROVIDERS: PCP Family Medicine; Visit Provider Nurse Practitioner Family
DX: N39.46 Mixed incontinence (principal)
CPT/HCPCS: 76857

== ENCOUNTER → 2024-04-30 11:26 | Outpatient (BNV) | payer OTHER, SELFPAY | PROVIDERS: PCP Family Medicine; Visit Provider Radiology Diagnostic Radiology | DX: N39.46 Mixed incontinence (principal) | CPT/HCPCS: 76857 ==

== ENCOUNTER 2024-07-07 11:59 | Outpatient (AMB) | payer OTHER, SELFPAY ==
--- NOTE | 2024-07-07 12:00 | A.OFFVIS_ITS ---
Intake Visit Reasons: Followup/US(set) Intake Note: Patient presents for tele visit follow up on: incontinence and ultrasound results Urology Medications: Gemtesa Blood Thinner: none Security Attendant Required: No Accompanied by: Self / Same As Patient Allergies celecoxib [Celebrex] Allergy (Unknown, Verified 07/07/24 12:20) GI upset gabapentin [Neurontin] Allergy (Unknown, Verified 07/07/24 12:20) mental status change morphine Allergy (Unknown, Verified 07/07/24 12:20) diarrhea/ itch naproxen [Naprosyn] Allergy (Unknown, Verified 07/07/24 12:20) GI upset tramadol [Ultram] Allergy (Unknown, Verified 07/07/24 12:20) nausea and vomiting trazodone Allergy (Unknown, Verified 07/07/24 12:20) depression cortisone Allergy (Unknown, Uncoded 07/07/24 12:20) Unknown latex Allergy (Unknown, Uncoded 07/07/24 12:20) rash Motrin Allergy (Unknown, Uncoded 07/07/24 12:20) GI upset vioxx Allergy (Unknown, Uncoded 07/07/24 12:20) heart problems Medication List - Last Reconciled 07/07/24 by DMAEON Anaya-ROSANA atorvastatin 80 mg PO DAILY cyclosporine 0.05% (Restasis MultiDose) drps ophthalmic (eye) diclofenac sodium 1% topical dulaglutide (Trulicity) mg subcut fentanyl 25 mcg/hr 1 patch topical Q3D hydroxyzine HCl 25 mg PO BID insulin glargine (Lantus Solostar U-100 Insulin) units subcut insulin lispro subcut levothyroxine 100 mcg PO DAILY lidocaine 5% 1 patch topical DAILY losartan 50 mg PO DAILY oxycodone 10 mg PO BID PRN pregabalin 25 mg PO BEDTIME Prevail Bladder Control Pad (incontinence pad, liner, disp) As directed 7 times daily NS quetiapine mg PO topiramate 75 mg PO BEDTIME vibegron (Gemtesa) 75 mg PO DAILY 30 days HPI Comments Details: Teagan is a very pleasant 64-year-old female patient of Dr. Ritter. She has a PMH of acid reflux, PTSD, osteoarthritis, STORMY, obesity, multinodular goiter, mood disorder, migraines, insomnia, hypothyrodism, hypertenstion, hyperlipidemia, type 2 diabetes, constipation, chronic pain, carpal tunnel syndrome, and mixed urinary incontinence. She is being followed up on today via telehealth for her ongoing mixed urinary incontinence. Of note, patient was last seen approximately 6 months ago at which time she was started on Gemtesa and a retroperitoneal ultrasound was ordered for further assessment evaluation. These results reviewed with the patient today 04/25 bilateral kidneys with no calculi, lesions, or hydronephrosis. No intrinsic bladder abnormality was identified. Pre void bladder volume is approximately 240 mL. Postvoid bladder volume is approximately 5 mL. In discussion with the patient today she does report feeling Gemtesa has been somewhat helpful and has noted improvements however does not feel symptoms have resolved. We discussed further treatment options and risks and benefits of these treatment options. She feels currently she would like to continue with Gemtesa emptying about further treatment options. She discusses the recent loss of her son in May of last year and will be busy with his upcoming trial in July. She denies hematuria, dysuria, foul smelling urine, changes to urinary stream, flank pain, fever, and or chills. She otherwise denies any other issues or concerns at this time. Plan The patient will continue on her current regimen of vibegron, as prescribed, since she reports no exacerbation of symptoms. We discussed urodynamics as a possible procedure for future diagnostic evaluation, providing details of alternatives beyond medication. An understanding was reached regarding the need for flexibility in scheduling due to personal commitments. Ongoing communication with her pharmacy will ensure timely drug supply, and the patient will continue using skin-friendly incontinence products to prevent dermatitis. Patient was informed and verbally consented to the use of an ambient scribe for clinic note documentation during this visit. Discussion Notes I reviewed the imaging results with the patient, explaining the lack of detectable abnormalities, which suggests managing symptoms rather than addressing anatomical issues. We discussed the continuation of vibegron therapy and its stabilization effect on her symptoms. I informed her of the potential benefits and alternatives of urodynamic testing for further assessment, which she may consider in the future. Drug refills will be managed efficiently through her pharmacy, with instructions to coordinate her follow-up adequately around her personal engagements. I confirmed the importance of maintaining skin- friendly incontinence products to prevent dermatitis, emphasizing its past impact on her condition. [facility] Medical History Tubular adenoma of colon Stool incontinence Acid reflux PTSD (post-traumatic stress disorder) Osteoarthritis STORMY (obstructive sleep apnea) Obesity Numbness of left foot Multinodular goiter Mood disorder due to medical condition Migraine Loose stools Insomnia due to other mental disorder Hypothyroidism Hypertension Hyperlipidemia History of DILIP positive for HSV Hepatic artery stenosis Head injury, closed, with brief LOC Fall Epigastric pain Echocardiogram abnormal Diastasis recti Diabetes mellitus type 2, noninsulin dependent Constipation Concussion Chronic pain after traumatic injury Carpal tunnel syndrome Breast pain Back pain Ankle pain, left Abdominal pain Surgical History History of hysterectomy History of bilateral breast reduction surgery History of total thyroidectomy History of cholecystectomy Review of Systems Const Reports as per HPI Eyes Reports no additional complaints ENT Reports no additional complaints Card Reports as per HPI Resp Reports as per HPI GI Reports as per HPI Reports as per HPI Musc Reports as per HPI Neuro Reports as per HPI Psych Reports as per HPI Endo Reports as per HPI Pawel/Lymph Reports no additional complaints Aller/Immun Reports no additional complaints Physical Exam Const General: cooperative Orientation/consciousness: patient oriented x3 Resp Effort & Inspection: able to speak in complete sentences Neuro General: patient oriented x3 Psych Speech and movement: Clear speech present Affect: normal affect Attitude: cooperative Thought process: Normal thought process present Thought content: Normal thought content present Insight: Fair insight present (Psych) Judgement: Fair judgement present (Psych) Telehealth Telehealth Telehealth Platform: Telephone Location of provider rendering services: practice address Location of patient: address on file Patient Identification confirmed using: Name, : Yes Telehealth method: voice only Patient verbally consented to treatment: Yes Patient verbally consented to billing insurance company: Yes Patient informed of any privacy concerns related to visit: Yes Minutes spent on Phone/Video with Pt.: 15 Results Reviewed Results Reviewed: Date of Service: 04/15/24 Procedure(s): US renal BI FINDINGS: RIGHT KIDNEY: 11.4 x 4.2 x 5.4 cm (SAG x AP x TRV). The kidney is normal in size, contour, with mildly increased cortical echogenicity. Renal cortical thickness is normal. No calculi or focal parenchymal lesions. No hydronephrosis. LEFT KIDNEY: 10.6 x 6.1 x 5.4 cm (SAG x AP x TRV). The kidney is normal in size, contour, with mildly increased cortical echogenicity. Renal cortical thickness is normal. No calculi or focal parenchymal lesions. No hydronephrosis. IMPRESSION: 1. Mildly increased bilateral renal cortical echogenicity without thickening. This is nonspecific but likely likely represents intrinsic medical renal disease. No hydronephrosis or mass. No calculi seen. Date of Service: 04/30/24 Procedure(s): US bladder FINDINGS: Sonographic examination of the urinary bladder was performed before and after voiding. Before voiding, the urinary bladder measured 7.5 x 6.5 x 9.4, for an estimated volume of239 mL. After voiding, the urinary bladder measured1.1 x 1.9 x 2.0, for an estimated volume of 3 mL. No intrinsic bladder abnormality is identified. Bilateral ureteral jets are identified. IMPRESSION: Post void bladder residual of 3 mL. No intrinsic bladder abnormality is identified. Assessment & Plan Assessment & Plan (1) Urinary incontinence, mixed: Code(s): N39.46 - Mixed incontinence Category: Medical Plan Recent renal imaging results reviewed with the patient today; as noted above. We discussed potential causes of lower urinary tract symptoms patient was experiencing as well as further treatment options and risks and benefits of these treatment options. Will continue with Gemtesa 75 mg daily; refill provided. All questions were answered. Follow-up in 3-6 months with [facility]; or sooner with any issues, concerns, and or questions. Medications: Changed From vibegron (Gemtesa) 75 mg PO DAILY 30 days 30 tabs 3RF N32.81 - Overactive bladder To vibegron (Gemtesa) 75 mg PO DAILY 90 tabs 3RF 90 days N32.81 - Overactive bladder Patient Instructions: The patient had an opportunity to ask questions regarding the treatment plan. All questions were answered. Physical exam, labs, and imaging were discussed and reviewed in detail. As well as risks, benefits, and discussion of treatment choices. No major barriers to understanding were identified. The patient expressed understanding and agreement with the above treatment plan. The patient was made aware they should contact our office by phone for worsening of their current condition, the appearance of new symptoms, or with any questions or concerns. Compliance is encouraged with any medications and follow up testing that is ordered. It is a privilege to be allowed the opportunity to participate in? your urological care.? Again, if you have any questions or concerns If you have any questions or concerns please do not hesitate to contact me. The office is [phone]. This note is constructed using voice recognition software. While every effort has been made to ensure accuracy insert molding operator errors may have been included. Yours sincerely, CANDICE Anaya Coding Level of Care Code Tele Est Pt Level 3 (26599) Diagnoses Urinary incontinence, mixed N39.46
--- OUTSIDE RECORDS SUMMARY | 2024-07-07 14:36 | XMS_ITS | Clinical Summary ---
Author Organization [facility] Address [address] [place] [address] Phone Care Team Providers Care [employer] Taper Name Role Phone Sergo Bazzi MD Primary Care Provider [phone] Social History Tobacco Use Types Packs/Day Years Used Date Smoking Tobacco: Never Assessed Comments Unknown Sex and Gender Information Value Date Recorded Sex Assigned at Not on file Legal Sex Female 6:51 PM EST Gender Identity Not on file Sexual Orientation Not on file Obstetrics History Plan of Treatment Upcoming Encounters Date Type Department Care Team ([facility] st Contact Info) Description 07/16/2024 2:30 PM EDT Consult Orthopedic Surgery - [place] [id number] [phone] Nate Kirby, [facility] [address] [address] Health Maintenance Due Date Last Done Comments Breast Cancer Screening 1961 DTaP,Tdap,and Td Vaccines (1 - Tdap) 1980 Cervical Cancer Screening: P ap Smear 1982 Pneumococcal Vaccine: 50+ Ye ars (1 of 1 - PCV) 2011 Zoster Vaccines (1 of 2) 2011 COVID-19 Vaccine ( - 2023-2 5 season) 2023 Influenza Vaccine (#1) 2023 Colorectal Cancer Screening: Colonoscopy 01/13/2024 Depression Screening 01/13/2024 HIV Screening 01/13/2024 Hepatitis C Screening 01/13/2024 Social Influencers of Health Screening 01/13/2024 RSV Immunization Adult Patie nts (1 - 1-dose 75+ series) 2036 HIB [...] patient's age to complete this topic Meningococcal B Vaccine Aged Out No l onger eligible based on patient's age to complete [...] on patient's age to complete this topic Insurance [place]ICAID - [place] [employer] [place]AGE NA[place] [address] [place] [address] Care Teams [employer] Taper Relationship Specialty Start Date End Date Sergo Bazzi MD [address] [place] [address] PCP - General 11/12/23
== END 2024-07-07 13:27 | disposition home or self-care (01) ==
LOC: HO.HUSH 12:00
PROVIDERS: PCP Family Medicine; Visit Provider Nurse Practitioner Family
DX: N39.46 Mixed incontinence (principal)
CPT/HCPCS: 99213

== ENCOUNTER → 2024-07-07 11:59 | Outpatient (BNVA) | payer OTHER, SELFPAY | PROVIDERS: PCP Family Medicine; Visit Provider Nurse Practitioner Family ==